=== PATIENT | male | born 1950 | race Caucasian/White ===

== ENCOUNTER → 2017-10-06 09:07 | Outpatient (CLI) | payer MEDICARE, OTHER, SELFPAY ==
[2017-10-06 09:10] VITALS: BP 118/74; PULSE 76; RESP 18; TEMP 36.9; O2SAT 98; BMI 24.3
[2017-10-06] MEDS: Immune Globulin 20 gm Premixed Solution IV (09:31)
[2017-10-06 10:04] VITALS: BP 124/60; PULSE 77; RESP 18; TEMP 36.7; O2SAT 98
[2017-10-06 10:30] VITALS: BP 129/68; PULSE 78; RESP 16; TEMP 37.2; O2SAT 100
[2017-10-06 11:05] VITALS: BP 134/71; PULSE 76; RESP 18; O2SAT 99
== END ==
PROVIDERS: Family Provider Family Medicine; PCP Family Medicine; Visit Provider Family Medicine
DX: D83.9 Common variable immunodeficiency, unspecified (principal)
CPT/HCPCS: 96365; 96366; A4216; J1568

== ENCOUNTER → 2017-11-03 09:10 | Outpatient (CLI) | payer MEDICARE, OTHER, SELFPAY ==
[2017-10-06 09:10] VITALS: BMI 24.3
[2017-10-06 10:30] VITALS: BP 129/68
[2017-11-03 09:14] VITALS: BP 132/64; PULSE 77; RESP 18; TEMP 36.3; O2SAT 100; BMI 25.0
[2017-11-03] MEDS: Immune Globulin 20 gm Premixed Solution IV (09:29)
[2017-11-03 10:02] VITALS: BP 120/63; PULSE 72; RESP 18; TEMP 36.3; O2SAT 98
[2017-11-03 10:32] VITALS: BP 131/76; PULSE 90; RESP 18; TEMP 36.7; O2SAT 97
== END ==
PROVIDERS: Family Provider Family Medicine; PCP Family Medicine; Visit Provider Family Medicine
DX: D83.9 Common variable immunodeficiency, unspecified (principal)
CPT/HCPCS: 96365; 96366; A4216; J1568

== ENCOUNTER → 2017-12-01 09:09 | Outpatient (CLI) | payer MEDICARE, OTHER, SELFPAY ==
[2017-12-01 09:19] VITALS: BP 126/59; PULSE 74; RESP 16; TEMP 36.6; O2SAT 99; BMI 24.3
[2017-12-01] MEDS: Immune Globulin 20 gm Premixed Solution IV (09:38)
[2017-12-01 10:09] VITALS: BP 115/62; PULSE 73; RESP 18; TEMP 36.8; O2SAT 97
[2017-12-01 10:42] VITALS: BP 125/58; PULSE 67; RESP 16; TEMP 36.9; O2SAT 99
== END ==
PROVIDERS: Family Provider Family Medicine; PCP Family Medicine; Visit Provider Family Medicine
DX: D83.9 Common variable immunodeficiency, unspecified (principal)
CPT/HCPCS: 96365; 96366; A4216; J1568

== ENCOUNTER → 2017-12-29 09:08 | Outpatient (CLI) | payer MEDICARE, OTHER, SELFPAY ==
[2017-12-29 09:22] VITALS: BP 118/69; PULSE 71; RESP 18; TEMP 36.9; O2SAT 99; BMI 24.3
[2017-12-29] MEDS: Immune Globulin 20 gm Premixed Solution IV (09:25)
[2017-12-29 09:57] VITALS: BP 102/56; PULSE 70; RESP 16; O2SAT 98
[2017-12-29 10:29] VITALS: BP 110/63; PULSE 68; RESP 16; TEMP 36.6; O2SAT 98
== END ==
PROVIDERS: Family Provider Family Medicine; PCP Family Medicine; Visit Provider Family Medicine
DX: D83.9 Common variable immunodeficiency, unspecified (principal)
CPT/HCPCS: 96365; 96366; A4216; J1568

== ENCOUNTER → 2018-01-26 09:18 | Outpatient (CLI) | payer MEDICARE, OTHER, SELFPAY ==
[2018-01-26] MEDS: Immune Globulin 20 gm Premixed Solution IV (09:47)
[2018-01-26 09:50] VITALS: BP 116/47; PULSE 78; RESP 16; TEMP 36.9; O2SAT 97; BMI 24.3
[2018-01-26 10:20] VITALS: BP 125/62; PULSE 72; RESP 18; TEMP 36.8; O2SAT 98
[2018-01-26 10:50] VITALS: BP 123/66; PULSE 65; RESP 16; TEMP 36.5; O2SAT 98
== END ==
PROVIDERS: Family Provider Family Medicine; PCP Family Medicine; Visit Provider Family Medicine
DX: D83.9 Common variable immunodeficiency, unspecified (principal)
CPT/HCPCS: 96365; 96366; J1568

== ENCOUNTER → 2018-02-23 09:06 | Outpatient (CLI) | payer MEDICARE, OTHER, SELFPAY ==
[2018-02-23 09:15] VITALS: BP 118/55; PULSE 77; RESP 16; TEMP 36.6; O2SAT 99
[2018-02-23 09:16] VITALS: BMI 23.5
[2018-02-23] MEDS: Immune Globulin 20 gm Premixed Solution IV (09:23)
[2018-02-23 10:01] VITALS: BP 117/59; PULSE 71; RESP 16
[2018-02-23 10:34] VITALS: BP 120/58; PULSE 70; RESP 18; TEMP 36.4; O2SAT 98
[2018-02-23 11:02] VITALS: BP 131/57; PULSE 71; RESP 16; TEMP 36.6; O2SAT 100
== END ==
PROVIDERS: Family Provider Family Medicine; PCP Family Medicine; Visit Provider Family Medicine
DX: D83.9 Common variable immunodeficiency, unspecified (principal)
CPT/HCPCS: 96365; 96366; A4216; J1568

== ENCOUNTER → 2018-03-23 09:06 | Outpatient (CLI) | payer MEDICARE, OTHER, SELFPAY ==
[2018-03-23 09:43] VITALS: BP 119/63; PULSE 78; RESP 16; TEMP 36.6; O2SAT 98; BMI 23.5
[2018-03-23] MEDS: Immune Globulin 20 gm Premixed Solution IV (09:58)
[2018-03-23 10:37] VITALS: BP 121/72; PULSE 71; RESP 16; TEMP 36.6; O2SAT 99
[2018-03-23 11:08] VITALS: BP 116/61; PULSE 67; RESP 16; TEMP 36.6; O2SAT 99
[2018-03-23 11:35] VITALS: BP 125/67; PULSE 70; RESP 16; TEMP 36.6; O2SAT 98
== END ==
PROVIDERS: Family Provider Family Medicine; PCP Family Medicine; Visit Provider Family Medicine
DX: D83.9 Common variable immunodeficiency, unspecified (principal)
CPT/HCPCS: 96365; 96366; A4216; J1568

== ENCOUNTER → 2018-04-20 09:10 | Outpatient (CLI) | payer MEDICARE, OTHER, SELFPAY ==
[2018-04-20] MEDS: Immune Globulin 20 gm Premixed Solution IV (09:24)
[2018-04-20 09:25] VITALS: BP 114/63; PULSE 76; RESP 16; TEMP 36.7; O2SAT 100; BMI 24.3
[2018-04-20 09:55] VITALS: BP 113/54; PULSE 73; RESP 18; TEMP 36.6; O2SAT 97
[2018-04-20 10:28] VITALS: BP 115/61; PULSE 72; RESP 18; TEMP 36.8; O2SAT 99
== END ==
PROVIDERS: Family Provider Family Medicine; PCP Family Medicine; Visit Provider Family Medicine
DX: D83.9 Common variable immunodeficiency, unspecified (principal)
CPT/HCPCS: 96365; 96366; A4216; J1568

== ENCOUNTER → 2018-05-18 09:07 | Outpatient (CLI) | payer MEDICARE, OTHER, SELFPAY ==
[2018-05-18] MEDS: Immune Globulin 20 gm Premixed Solution IV (09:25)
[2018-05-18 09:28] VITALS: BP 104/76; PULSE 70; RESP 16; TEMP 36.7; O2SAT 100; BMI 24.3
[2018-05-18 09:52] LABS: Absolute Lymphocyte Count 1.15 X10^3/ul (0.83-4.51); Absolute Neutrophil Count 2.5 X10^3/uL (2.0-7.7); Hematocrit 43.1 % (40-54); Hemoglobin 14.6 g/dl (13.0-16.5); Lymphocyte # 1.15 X10^3/ul (4.0); Lymphocyte % 27.7 % (19-41); Mean Corp Hgb Conc 33.9 g/gl (32-36); Mean Corpuscular Volume 88.7 fL (80-94); Neutrophil # 2.49 X10^3/uL (2.7-7.7); Neutrophil % 60.1 % (47-70); Platelet Count 143 K/mm3 (150-450); RBC Distribution Width CV 13.1 % (11.6-14.6); RBC Distribution Width SD 42.7 fl (35.1-43.9); Red Blood Count 4.86 M/mm3 (4.6-6.2); White Blood Count 4.2 K/mm3 (4.4-11.0)
[2018-05-18 09:53] LABS: POSITIVE COUNT NO; POSITIVE DIFFERENTIAL NO; POSITIVE MORPHOLOGY NO
[2018-05-18 09:59] VITALS: BP 110/72; PULSE 64; RESP 16; TEMP 36.6
[2018-05-18 10:15] LABS: ALB/GLOB Ratio 1.2 RATIO (0.9-2.4); AST(SGOT) 18 U/L (15-37); Alanine Aminotransfer ALT/SGPT 30 U/L (16-61); Alkaline Phosphatase 61 U/L (45-117); Anion Gap 7 (5-15); BUN 15 mg/dL (7-18); Calcium,Total 9.1 mg/dL (8.5-10.1); Chloride 104 mmol/L (98-107); Creatinine, Serum 0.94 mg/dL (0.70-1.30); EST Glomerular Filtration Rate 86 mL/min (>60); Est Glom Filt Rate - Afr Amer 104 mL/min (>60); Estimated Creatinine Clearance 72.27 ml/min; Ferritin 172 ng/mL (26-388); Globulin 3.2 g/dL (2.2-4.2); Glucose 94 mg/dL (74-106); Potassium 4.2 mmol/L (3.5-5.1); Protein, Total 7.2 g/dL (6.4-8.2); Sodium Level 139 mmol/L (136-145); Thyroid Stim Hormone (TSH) 2.77 uIU/mL (0.358-3.74)
[2018-05-18 10:33] VITALS: BP 111/58; PULSE 71; RESP 15; O2SAT 99
[2018-05-18 11:08] VITALS: BP 115/59; PULSE 70; RESP 16
[2018-05-21 04:08] LABS: IgG, Quant 727 mg/dL (700-1600); Immunoglobulin G, Subclass 1 419 mg/dL (248-810); Immunoglobulin G, Subclass 2 199 mg/dL (130-555); Immunoglobulin G, Subclass 3 30 mg/dL (15-102)
[2018-05-21 11:06] LABS: Immunoglobulin G, Subclass 4 6 mg/dL (2-96)
== END ==
PROVIDERS: Family Provider Family Medicine; PCP Family Medicine; Visit Provider Family Medicine
DX: D83.9 Common variable immunodeficiency, unspecified (principal); E78.00 Pure hypercholesterolemia, unspecified
CPT/HCPCS: 96365; 96366; 80053; 82728; 82784; 82787; 84443; 85025; A4216; J1568

== ENCOUNTER → 2018-06-15 09:08 | Outpatient (CLI) | payer MEDICARE, OTHER, SELFPAY ==
[2018-06-15 09:19] VITALS: BP 134/75; PULSE 75; RESP 18; TEMP 36.4; O2SAT 100; BMI 23.5
[2018-06-15] MEDS: Immune Globulin 10 gm Premixed Solution IV ×2 (10:07→11:04)
[2018-06-15 10:40] VITALS: BP 122/59; PULSE 66; RESP 16; TEMP 36.9
[2018-06-15 11:18] VITALS: BP 112/51; PULSE 65; RESP 16; TEMP 36.8
[2018-06-15 11:43] VITALS: BP 121/59; PULSE 64; RESP 16; TEMP 36.5; O2SAT 98
== END ==
PROVIDERS: Family Provider Family Medicine; PCP Family Medicine; Visit Provider Family Medicine
DX: D83.9 Common variable immunodeficiency, unspecified (principal)
CPT/HCPCS: 96365; 96366; J7050; A4216; J1568

== ENCOUNTER → 2018-07-13 09:10 | Outpatient (CLI) | payer MEDICARE, OTHER, SELFPAY ==
[2018-07-13 09:21] VITALS: BP 121/64; PULSE 63; RESP 16; TEMP 36.7; O2SAT 98; BMI 23.5
[2018-07-13] MEDS: Immune Globulin 20 gm Premixed Solution IV (09:42)
[2018-07-13 10:23] VITALS: BP 113/58; PULSE 73
[2018-07-13 10:54] VITALS: BP 116/61; PULSE 75
[2018-07-13 11:16] VITALS: BP 118/64; PULSE 64; RESP 18; TEMP 36.6; O2SAT 99
== END ==
PROVIDERS: Family Provider Family Medicine; PCP Family Medicine; Referring Provider Family Medicine; Visit Provider Family Medicine
DX: D83.9 Common variable immunodeficiency, unspecified (principal)
CPT/HCPCS: 96365; 96366; A4216; J1568

== ENCOUNTER → 2018-08-10 09:06 | Outpatient (CLI) | payer MEDICARE, OTHER, SELFPAY ==
[2018-08-10 09:31] VITALS: BP 132/62; PULSE 73; RESP 16; TEMP 36.6; O2SAT 100; BMI 23.5
[2018-08-10 09:36] LABS: Absolute Lymphocyte Count 1.09 X10^3/ul (0.83-4.51); Absolute Neutrophil Count 3.8 X10^3/uL (2.0-7.7); Hematocrit 42.4 % (40-54); Hemoglobin 14.2 g/dl (13.0-16.5); Lymphocyte # 1.09 X10^3/ul (4.0); Lymphocyte % 20.1 % (19-41); Mean Corp Hgb Conc 33.5 g/gl (32-36); Mean Corpuscular Volume 89.6 fL (80-94); Mean Platelet Vol. 10.7 fl (6.2-12.0); Monocyte# 0.54 X10^3/uL; Neutrophil # 3.78 X10^3/uL (2.7-7.7); Neutrophil % 69.7 % (47-70); POSITIVE COUNT NO; POSITIVE DIFFERENTIAL NO; POSITIVE MORPHOLOGY NO; Platelet Count 127 K/mm3 (150-450); RBC Distribution Width CV 13.1 % (11.6-14.6); RBC Distribution Width SD 42.8 fl (35.1-43.9); Red Blood Count 4.73 M/mm3 (4.6-6.2); White Blood Count 5.4 K/mm3 (4.4-11.0)
[2018-08-10] MEDS: Immune Globulin 20 gm Premixed Solution IV (09:36)
[2018-08-10 10:12] VITALS: BP 108/56; PULSE 72; RESP 16; TEMP 36.7
[2018-08-10 10:23] LABS: ALB/GLOB Ratio 1.4 RATIO (0.9-2.4); AST(SGOT) 27 U/L (15-37); Alanine Aminotransfer ALT/SGPT 34 U/L (16-61); Albumin, Serum 4.2 g/dL (3.2-5.0); Alkaline Phosphatase 69 U/L (45-117); Anion Gap 7 (5-15); BUN 21 mg/dL (7-18); BUN/Creat Ratio 25.3 RATIO (10-20); Calcium,Total 8.7 mg/dL (8.5-10.1); Chloride 105 mmol/L (98-107); Cholesterol 147 mg/dL (200); Creatinine, Serum 0.83 mg/dL (0.70-1.30); EST Glomerular Filtration Rate 98 mL/min (>60); Est Glom Filt Rate - Afr Amer 119 mL/min (>60); Estimated Creatinine Clearance 81.85 ml/min; Globulin 2.9 g/dL (2.2-4.2); Glucose 86 mg/dL (74-106); High Density Lipoprotein 28 mg/dL; PSA,Total - Annual Screen 4.11 ng/mL (0.00-4.00); Potassium 4.3 mmol/L (3.5-5.1); Protein, Total 7.1 g/dL (6.4-8.2); Sodium Level 139 mmol/L (136-145); Triglycerides 112 mg/dL; Very Low Density Lipoprotein 22 mg/dL (5-40)
[2018-08-10 10:40] VITALS: BP 103/51; PULSE 69; RESP 16; TEMP 36.8
[2018-08-14 03:04] LABS: Immunoglobulin G 676 mg/dL (700-1600)
[2018-08-14 08:56] LABS: Immunoglobulin A < 5 mg/dL (61-437); Immunoglobulin E < 2 IU/mL (0-100); Immunoglobulin M 6 mg/dL (20-172)
== END ==
PROVIDERS: Family Provider Family Medicine; PCP Family Medicine; Referring Provider Family Medicine; Visit Provider Family Medicine
DX: D83.9 Common variable immunodeficiency, unspecified (principal); R06.09 Other forms of dyspnea; E78.00 Pure hypercholesterolemia, unspecified; R97.20 Elevated prostate specific antigen [PSA]; Z12.5 Encounter for screening for malignant neoplasm of prostate
CPT/HCPCS: 96365; 96366; 80053; 80061; 82784; 82785; 84153; 85025; A4216; G0103; J1568

== ENCOUNTER → 2018-09-07 09:13 | Outpatient (CLI) | payer MEDICARE, OTHER, SELFPAY ==
[2018-08-10 09:31] VITALS: BMI 23.5
[2018-09-07] MEDS: Immune Globulin 20 gm Premixed Solution IV (09:32)
== END ==
PROVIDERS: Family Provider Family Medicine; PCP Family Medicine; Referring Provider Family Medicine; Visit Provider Family Medicine
DX: D83.9 Common variable immunodeficiency, unspecified (principal)
CPT/HCPCS: 96365; 96366; A4216; J1568

== ENCOUNTER → 2018-10-05 09:09 | Outpatient (CLI) | payer MEDICARE, OTHER, SELFPAY ==
[2018-08-10 09:31] VITALS: BMI 23.5
[2018-10-05 09:15] VITALS: BP 127/71; PULSE 69; RESP 16; TEMP 36.4; O2SAT 98; BMI 23.5
[2018-10-05] MEDS: Immune Globulin 20 gm Premixed Solution IV (09:30)
== END ==
PROVIDERS: Family Provider Family Medicine; PCP Family Medicine; Referring Provider Family Medicine; Visit Provider Family Medicine
DX: D83.9 Common variable immunodeficiency, unspecified (principal)
CPT/HCPCS: 96365; 96366; A4216; J1568

== ENCOUNTER → 2018-11-02 09:10 | Outpatient (CLI) | payer MEDICARE, OTHER, SELFPAY ==
[2018-10-05 09:15] VITALS: BMI 23.5
[2018-11-02 09:30] VITALS: BP 156/74; PULSE 80; RESP 16; TEMP 36.5; O2SAT 99; BMI 24.3
[2018-11-02] MEDS: Immune Globulin 20 gm Premixed Solution IV (09:43)
[2018-11-02 10:13] VITALS: BP 156/74; PULSE 80; RESP 16; TEMP 36.5; O2SAT 99
[2018-11-02 10:46] VITALS: BP 114/57; PULSE 74; RESP 16; TEMP 36.6
== END ==
PROVIDERS: Family Provider Family Medicine; PCP Family Medicine; Referring Provider Family Medicine; Visit Provider Family Medicine
DX: D83.9 Common variable immunodeficiency, unspecified (principal)
CPT/HCPCS: 96365; 96366; A4216; J1568

== ENCOUNTER → 2018-11-30 11:00 | Outpatient (CLI) | payer MEDICARE, OTHER, SELFPAY ==
[2018-11-02 09:30] VITALS: BMI 24.3
[2018-11-30 11:11] VITALS: BP 116/61; PULSE 85; RESP 16; TEMP 36.7; O2SAT 98; BMI 23.5
[2018-11-30] MEDS: Immune Globulin 10 gm Premixed Solution IV ×2 (11:25→12:41)
== END ==
PROVIDERS: Family Provider Family Medicine; PCP Family Medicine; Referring Provider Family Medicine; Visit Provider Family Medicine
DX: D83.9 Common variable immunodeficiency, unspecified (principal)
CPT/HCPCS: 96365; 96366; J7050; A4216; J1568

== ENCOUNTER → 2018-12-28 | Outpatient (CLI) | payer MEDICARE, OTHER, SELFPAY ==
[2018-11-30 11:11] VITALS: BMI 23.5
[2018-12-28 11:06] VITALS: BP 134/65; PULSE 83; RESP 18; TEMP 36.8; O2SAT 100; BMI 24.3
[2018-12-28] MEDS: Immune Globulin 10 gm Premixed Solution IV ×2 (11:17→12:21)
== END | disposition home or self-care (01) ==
LOC: MEDOUTP 11:02
PROVIDERS: Family Provider Family Medicine; PCP Family Medicine; Referring Provider Family Medicine; Visit Provider Family Medicine
DX: D83.9 Common variable immunodeficiency, unspecified (principal)
CPT/HCPCS: 96365; 96366; A4216; J1568

== ENCOUNTER → 2019-01-23 | Outpatient (CLI) | payer MEDICARE, OTHER, SELFPAY ==
[2018-12-28 11:06] VITALS: BMI 24.3
--- NOTE | 2019-01-23 08:23 | CT_ITS ---
STUDY: CT CHEST WITHOUT CONTRAST REASON FOR EXAM: Male, 68 years old. Short of breath RADIATION DOSAGE (If Supplied By Facility): CTDIvol = ( 9.24 ) mGy, DLP = ( 355.59 ) mGycm TECHNIQUE: Transaxial imaging was performed without the administration of intravenous contrast material. Individualized dose optimization techniques were used for this CT. COMPARISON: None. FINDINGS: There is ill-defined 1 cm x 6.1 cm x 2.3 cm density in the right upper lobe extending to the apex there is mild respiratory motion on the exam. There are scattered linear areas of scarring lower lobes and left upper lobe. There is no demonstrated pleural abnormality. Normal heart and pericardium. There is calcific coronary atherosclerosis. There are less than 1 cm nonenlarged mediastinal lymph nodes. Normal hilar regions. Normal unenhanced pulmonary arteries. Normal aorta arch and descending thoracic aorta. There is mild thoracic kyphosis and multilevel osteophytes. There is hyperdensity within the stomach likely pill. There is no demonstrated abnormality of the visualized upper abdomen. CT/Chest without Contrast IMPRESSION: 1 x 6.1 x 2.3 cm irregular right upper lobe scarring versus lung malignancy. PET/CT follow-up and biopsy recommended. Sequela of prior TB also cannot be excluded. Nonenlarged mediastinal lymph nodes Calcific coronary atherosclerosis Electronically Signed: Chas Hdz, at 17:00 EDT Tel , Service support ,
--- NOTE | 2019-01-23 09:27 | ART_ITS ---
Reason For Study: Bilateral leg weakness Procedure A bilateral lower extremity continuous wave Doppler with analog waveform analysis,segmental pressures,and ankle brachial indexes with exercise. Left Segmental Pressures Left brachial= 131mmHg. Left posterior tibial artery = 157mmHg. Left dorsalis pedis artery = 161mmHg. The left dorsalis pedis waveforms are triphasic. The left posterior tibial artery waveforms are triphasic. Right Segmental Pressures Right brachial= 135mmHg. Right posterior tibial artery = 158mmHg. Right dorsalis pedis artery = 161mmHg. The right dorsalis pedis waveforms are triphasic. The right posterior tibial artery waveforms are triphasic. Indices The right ankle brachial index by the dorsalis pedis is 1.19. The right ankle brachial index by the posterior tibial artery is 1.17. The right post exercise ankle brachial index is 1.27. The left ankle brachial index by the dorsalis pedis is 1.19. The left ankle brachial index by the posterior tibial artery is 1.16. The left post exercise ankle brachial index is 1.25. Interpretation Summary Triphasic Doppler waveforms are noted at ankle level bilaterally. Pulse-volume recording waveform amplitudes appear satisfactory at all levels bilaterally, including low-thigh, calf, ankle, and digital levels. Resting ankle-brachial indices appear normal bilaterally. Following a regimen of exercise, ankle pressures augment bilaterally, which is a normal physiological response. There is no evidence of significant arterial occlusive disease in the lower extremities bilaterally. Ordering Physician: Mahesh Avendano Referring Physician: Mahesh Avendano Performed By: Jessie Vicente RVT
--- NOTE | 2019-01-23 10:15 | CPS ---
Patient maintained a great pace for the first 4 minutes, walking 1000 ft in the first 4 minutes. Patient then stated that his shortness of breath was making him want to slow down his pace and he rated it as somewhat severe. Patient finished the test without any breaks at a slightly slower pace.
[2019-01-23 10:21] VITALS: PULSE 102; PULSE 108; PULSE 115; PULSE 117; PULSE 119; PULSE 83; PULSE 84; O2SAT 100; O2SAT 98; O2SAT 99
--- NOTE | 2019-01-23 13:42 | PCM.PSN.6M ---
PSN 6 Minute Walk Test - 6 Minute Walk Test 6 Minute Walk Test: 6 Minute Walk Test PSN:6-Minute Walk Test Start: 01/23/19 10:11 Freq: Status: Active Protocol: [id number].6MINW Document 01/23/19 10:21 MARY JO (Rec: 01/23/19 10:25 MARY JO [id number]) 6 Minute Walk Test Date Performed 01/23/19 Time Performed 09:15 Height 5 ft 7 in Weight: 152 lb Weight in Pounds 152.[address]: Mahesh Avendano Assistive device used: None Pre-test Oxygen Delivery Method Room Air Pulse Ox (%) 98 Pulse Rate (60-100 beats/min) 83 Dyspnea Prakash Scale (0-10) 0 Exertion Prakash Scale (6-20) 6 1st minute Oxygen Delivery Method Room Air Pulse Ox (%) 99 Pulse Rate (60-100 beats/min) 108 H 2nd minute Oxygen Delivery Method Room Air Pulse Ox (%) 98 Pulse Rate (60-100 beats/min) 117 H 3rd minute Oxygen Delivery Method Room Air Pulse Ox (%) 100 Pulse Rate (60-100 beats/min) 119 H 4th minute Oxygen Delivery Method Room Air Pulse Ox (%) 99 Pulse Rate (60-100 beats/min) 115 H Dyspnea Prakash Scale (0-10) 4 5th minute Oxygen Delivery Method Room Air Pulse Ox (%) 99 Pulse Rate (60-100 beats/min) 102 H 6th minute Oxygen Delivery Method Room Air Pulse Ox (%) 99 Pulse Rate (60-100 beats/min) 102 H Dyspnea Prakash Scale (0-10) 3 Exertion Prakash Scale (6-20) 11 Post-test Oxygen Delivery Method Room Air Pulse Ox (%) 98 Pulse Rate (60-100 beats/min) 84 Full Laps Walked 24 Partial Lap, Number of Tiles Walked 0 Total Distance Walked (ft) 1416 - Interpretation Interpretation: The patient ambulated 1416 feet over the course of 6 minutes beginning on room air without assistive devices or breaks. Pretesting oxygen saturation was noted to be 98% on room air. With ambulation, the todd oxygen saturation was 98%. There was no significant exertional oxygen desaturation. - Recommendations Recommendations: There is no indication for the use of supplemental oxygen at this time.
== END | disposition home or self-care (01) ==
LOC: CT 08:19
PROVIDERS: Family Provider Family Medicine; PCP Family Medicine; Referring Provider Family Medicine; Visit Provider Family Medicine
DX: I73.9 Peripheral vascular disease, unspecified (principal); R06.09 Other forms of dyspnea
CPT/HCPCS: 71250; 93924; 94618

== ENCOUNTER → 2019-01-25 | Outpatient (CLI) | payer MEDICARE, OTHER, SELFPAY ==
[2018-12-28 11:06] VITALS: BMI 24.3
[2019-01-25 11:38] VITALS: BP 123/66; PULSE 72; RESP 16; TEMP 36.7; O2SAT 97; BMI 23.8
[2019-01-25] MEDS: Immune Globulin 20 gm Premixed Solution IV (12:12)
[2019-01-25 12:22] LABS: Absolute Lymphocyte Count 1.07 X10^3/ul (0.83-4.51); Absolute Neutrophil Count 3.2 X10^3/uL (2.0-7.7); Hematocrit 40.1 % (40-54); Lymphocyte # 1.07 X10^3/ul (4.0); Lymphocyte % 22.2 % (19-41); Mean Corp Hgb Conc 34.9 g/gl (32-36); Mean Corpuscular Hgb 31.3 pg (27.0-32.0); Mean Corpuscular Volume 89.5 fL (80-94); Mean Platelet Vol. 10.6 fl (6.2-12.0); Monocyte# 0.55 X10^3/uL; Monocyte% 11.4 % (0-10); Neutrophil # 3.19 X10^3/uL (2.7-7.7); Neutrophil % 66.4 % (47-70); POSITIVE COUNT NO; POSITIVE DIFFERENTIAL NO; POSITIVE MORPHOLOGY NO; Platelet Count 141 K/mm3 (150-450); RBC Distribution Width CV 12.6 % (11.6-14.6); RBC Distribution Width SD 41.1 fl (35.1-43.9); Red Blood Count 4.48 M/mm3 (4.6-6.2); White Blood Count 4.8 K/mm3 (4.4-11.0)
[2019-01-25 13:02] LABS: CRP < 2.90 mg/L (0.0-3.0); LDH 173 U/L (87-241)
[2019-01-25 13:03] LABS: Erythrocyte Sedimentation Rate 2 mm/hr (0-20)
[2019-01-30 06:06] LABS: QNTFERON TB Mitogen Value > 10.00 IU/mL (.); QNTFERON TB Nil Value 0.01 IU/mL (.); QNTFERON TB1+ Ag Value 0.02 IU/mL (.); QNTFERON TB2+ Ag Value 0.01 IU/mL (.)
[2019-01-30 15:49] LABS: QNTIFERON TB Positive Criteria Negative (Negative)
== END | disposition home or self-care (01) ==
LOC: MEDOUTP 11:27
PROVIDERS: Family Provider Family Medicine; PCP Family Medicine; Referring Provider Family Medicine; Visit Provider Family Medicine
DX: D83.9 Common variable immunodeficiency, unspecified (principal); R91.8 Other nonspecific abnormal finding of lung field
CPT/HCPCS: 96365; 96366; 83615; 85025; 85652; 86140; 86480; A4216; J1568

== ENCOUNTER → 2019-02-22 11:06 | Outpatient (CLI) | payer MEDICARE, OTHER, SELFPAY ==
[2019-01-25 11:38] VITALS: BMI 23.8
[2019-01-30 10:56] VITALS: BMI 24.3
[2019-02-22 11:23] VITALS: BP 107/65; PULSE 79; RESP 16; TEMP 36.6; O2SAT 99; BMI 24.3
[2019-02-22] MEDS: Immune Globulin 20 gm Premixed Solution IV (11:42)
== END ==
PROVIDERS: Family Provider Family Medicine; PCP Family Medicine; Referring Provider Family Medicine; Visit Provider Family Medicine
DX: D83.9 Common variable immunodeficiency, unspecified (principal)
CPT/HCPCS: 96365; 96366; A4216; J1568

== ENCOUNTER → 2019-03-05 | Outpatient (CLI) | payer MEDICARE, OTHER, SELFPAY ==
[2019-01-30 10:56] VITALS: BMI 24.3
[2019-02-22 11:23] VITALS: BMI 24.3
--- NOTE | 2019-03-06 12:42 | PFT ---
INTRODUCTION: The patient is a 68-year-old male that presents for pulmonary function studies secondary to a diagnosis of dyspnea on exertion. Respiratory therapy reports good patient effort. Bronchodilators were used during testing. INTERPRETATION: Forced expiration spirometry demonstrates no evidence of a large airways obstructive ventilatory defect. There was no significant response to aerosolized bronchodilators, based upon strict ATS criteria. Spirograms are of good quality and plateau normally. Body plethysmography was performed and reveals lung volumes to be within normal limits. Diffusing capacity by single breath CO is also within normal limits. IMPRESSION: Normal spirometry, lung volumes and diffusing capacity.
== END | disposition home or self-care (01) ==
LOC: PSN 07:23
PROVIDERS: Family Provider Family Medicine; PCP Family Medicine; Referring Provider Internal Medicine Critical Care Medicine; Visit Provider Internal Medicine Critical Care Medicine
DX: R06.09 Other forms of dyspnea (principal)
CPT/HCPCS: 94060; 94726; 94729

== ENCOUNTER → 2019-03-06 | Outpatient (CLI) | payer MEDICARE, OTHER, SELFPAY ==
[2019-03-06 08:41] VITALS: BMI 24.3
[2019-03-06 11:24] LABS: Absolute Lymphocyte Count 1.17 X10^3/ul (0.83-4.51); Absolute Neutrophil Count 2.9 X10^3/uL (2.0-7.7); Hematocrit 38.3 % (40-54); Hemoglobin 13.2 g/dl (13.0-16.5); Lymphocyte # 1.17 X10^3/ul (4.0); Lymphocyte % 26.5 % (19-41); Mean Corp Hgb Conc 34.5 g/gl (32-36); Mean Corpuscular Hgb 30.3 pg (27.0-32.0); Mean Platelet Vol. 10.6 fl (6.2-12.0); Monocyte# 0.36 X10^3/uL; Monocyte% 8.1 % (0-10); Neutrophil # 2.88 X10^3/uL (2.7-7.7); Neutrophil % 65.2 % (47-70); Platelet Count 143 K/mm3 (150-450); RBC Distribution Width CV 12.5 % (11.6-14.6); RBC Distribution Width SD 40.4 fl (35.1-43.9); Red Blood Count 4.35 M/mm3 (4.6-6.2); White Blood Count 4.4 K/mm3 (4.4-11.0)
[2019-03-06 11:32] LABS: POSITIVE COUNT NO; POSITIVE DIFFERENTIAL NO; POSITIVE MORPHOLOGY NO
[2019-03-06 11:46] LABS: Anion Gap 4 (5-15); BUN 14 mg/dL (7-18); BUN/Creat Ratio 17.1 RATIO (10-20); Chloride 105 mmol/L (98-107); Creatinine, Serum 0.82 mg/dL (0.70-1.30); EST Glomerular Filtration Rate 100 mL/min (>60); Est Glom Filt Rate - Afr Amer 121 mL/min (>60); Glucose 110 mg/dL (74-106); Potassium 4.4 mmol/L (3.5-5.1); Sodium Level 136 mmol/L (136-145)
== END | disposition home or self-care (01) ==
PROVIDERS: Family Provider Family Medicine; PCP Family Medicine; Referring Provider Internal Medicine Cardiovascular Disease; Visit Provider Internal Medicine Cardiovascular Disease
DX: R07.9 Chest pain, unspecified (principal)
CPT/HCPCS: 36415; 80048; 85025

== ENCOUNTER 2019-03-11 08:53 | Day surgery (SDC) | payer MEDICARE, OTHER, SELFPAY ==
[2019-03-06 08:41] VITALS: BMI 24.3
[2019-03-08 08:59] VITALS: BMI 24.3
[2019-03-11] VITALS (26 sets, daily range): BP systolic 107–160; BP diastolic 61–95; PULSE 41–83; RESP 10–24; TEMP 36.7–37.7; O2SAT 96–100; BMI 24.5; BMI 24.3
--- NOTE | 2019-03-11 12:54 | CL.D_ITS ---
Patient Name: FRANCISCO CONNOR Study Date: 03/11/2019 Performing: Demian Ramsay MD Ht: 66.92 inches 170 cm : 1950 Wt: 154.32 lbs 70 kg Age: 68 Gender: male BSA: 1.81 PROCEDURE(S) PERFORMED [id number]/LV CLINICAL PROFILE AND INDICATIONS Indications: Worsening Angina Heart Failure: None Stress/Imaging Stress/Image Study Performed: No CAD Presentations: Unstable angina. CONCLUSIONS Severe choctaw vessel disease involving the proximal to mid right coronary artery of approximately 80% in the distal right coronary artery of 90%. There is also a moderately severe left anterior descend ing artery lesion noted of approximately 70 to 75%. RECOMMENDATIONS Referred for immediate PCI DESCRIPTION OF PROCEDURE The patient arrived to the procedure lab. The risks and benefits of the procedure as well as a full d escription of our services here and current unavailability of surgical backup were fully explained to the patient and/or their significant other prior to the catheterization. The Timeout was completed, verifying the correct patient and procedure. The patient's procedural site was prepped and draped in the usual fashion. Local anesthetic was given subcutaneously to right radial region with Lidocaine 2% . Local anesthetic was given subcutaneously to right groin region with Lidocaine 2%. Using a modified Seldinger technique, arterial access was obtained via the right radial artery, a 6Fr sheath was inse rted., arterial access was obtained via the right femoral artery, a 5Fr sheath was inserted. Left Co ronary Artery selective angiography was performed in multiple views using a 5 Fr. JL4 catheter. Right Coronary Artery selective angiography was then performed in multiple views using a 5 Fr. 3DRC (Hari) catheter. Left Ventriculography was performed in BEAULIEU projection using a 5 Fr. Pigtail catheter. LV to AO pullback pressures were then recorded. CORONARY ANGIOGRAPHY DOMINANCE: Right Dominant LEFT HEART ASSESSMENT Left Ventricular Ejection Fraction: by LV Gram 65 % Normal LV wall motion LEFT MAIN: Mild calcification, Non-obstructive LEFT ANTERIOR DESCENDING ARTERY: PROX LAD: Mild luminal irregularities less than 30% MID LAD: 75 % Stenosis CIRCUMFLEX ARTERY: Mild luminal irregularities less than 30% RIGHT CORONARY ARTERY: PROX RCA: Mild luminal irregularities MID RCA: 80 eccentric % Stenosis DISTAL RCA: 95 % Stenosis COMPLICATIONS PROCEDURE MEDICATIONS Versed 1 mg IV Fentanyl 50 mcg IV Versed 1 mg IV Fentanyl 25 mcg IV Oxygen: 2 L/min via nasal cannula Heparin diluted in 23cc Heparinized saline. Patient given 1/2 solution 03/11/2019 12:02:25 Heparin diluted in 23cc Heparinized saline. Patient given 1/2 solution 03/11/2019 12:02:25 Heparin diluted in 23cc Heparinized saline. Patient given 1/2 solution 03/11/2019 12:07:59 Heparin 5000 unit(s) IV 03/11/2019 12:40:04 Nitro 200 mcg IC 03/11/2019 12:46:48 Verapamil 2.5mg, Ntg 100mcgs, 2000 units of Heparin diluted in 23cc Heparinized saline. Patient give n 1/2 solution 03/11/2019 12:02:25 Verapamil 2.5mg, Ntg 100mcgs, 2000 units of Heparin diluted in 23cc Heparinized saline. Patient give n 1/2 solution 03/11/2019 12:02:25 Verapamil 2.5mg, Ntg 100mcgs, 2000 units of Heparin diluted in 23cc Heparinized saline. Patient give n 1/2 solution 03/11/2019 12:07:59 IV Bolus: .9 NaCl ml total 03/11/2019 12:24:12 SUMMARY OF HEMODYNAMIC DATA Time AIR REST ECG 09:14:41 ECG 09:19:06 AO 109/63 (83) SA 12:05:21 AO 95/55 (73) 12:20:46 LV 103/6, 15 12:29:56 LV 101/5, 15 12:30:02 LV 116/0, 20 12:31:32 LVp 116/-3, 20 12:31:37 AOp 110/55 (80) 12:31:42 Signed By Demian Ramsay MD On 03/11/2019 12:54:15 PM Signed By Demian Ramsay MD On 03/11/2019 12:53:46 PM Demian Ramsay MD
--- NOTE | 2019-03-11 13:30 | EKG12_ITS ---
Test Reason : AM Blood Pressure : / mmHG Vent. Rate : 075 BPM Atrial Rate : 075 BPM P-R Int : 140 ms QRS Dur : 092 ms QT Int : 376 ms P-R-T Axes : 080 073 070 degrees QTc Int : 419 ms Normal sinus rhythm Normal ECG When compared with ECG of 23-JUL-1999 09:41, No significant change was found Confirmed by JOB JUAREZ ([id number]), image editor CYNTHIA NEWBY ([id number]) on 03/14/2019 1:53:37 PM Referred By: Demian Ramsay Confirmed By:JOB JUAREZ
--- NOTE | 2019-03-11 14:00 | CRPHASE1 ---
Patient Communication PHII Cardiac Rehab Discussed with Patient:: Yes Guide to Cardiac Rehab Given to Patient:: Yes Cardiac Rehab Facility Choice List Given to Patient:: Yes - chooses [facility] Choice Program [facility] CR PHII:: Communication Given to CR, Refer to [facility] Refer Phase II Cardiac Rehab:: Yes Sessions:: 36 sessions - 3 days/wk, 12 weeks Risk Factors/Lifestyle Smoking Status: Never smoker Hx Dyslipidemia: Yes Height: 1.7 m Weight:: 70.307 kg BMI: 24.3 Family History: Family History (Last Reviewed 03/06/19 @ 09:25 by Demian Ramsay MD) Mother Heart disease Father Parkinson disease Phase I Education Given On:: [place], Nutrition, Antiplatelet medication, CHF, Smoking cessation, Diabetes - Type I, Diabetes - Type II Issues Affecting Care:: None Knowledge of Condition:: Yes Hospital Course Cardiac Cath Date:: 03/11/19 Medical/Surgical History Dyslipidemia:: Yes Discharge/Home/Social Eval Discharge Disposition: Home Marital Status: Cardiac Rehabilitation Info Cardiac Rehabilitation Program Information: Cardiac Rehabilitation is important for patients like you who are recovering from a heart problem. Cardiac rehabilitation programs are recognized as integral to the continued care of the patient with coronary heart disease. The cardiac rehabilitation program is designed to optimize a patient's physical, psychological, and social functioning. Health multi care technician work in cardiac rehabilitation programs and assist you with getting the treatments you need to get stronger and healthier - like exercise, healthy eating habits, and medications. Cardiac rehabilitation has been show to help people with heart problems live longer and have better life enjoyment than people who do not go to cardiac rehabilitation. Please contact the Cardiac Rehabilitation Program at [facility] at in two weeks if you have not heard from them.
--- NOTE | 2019-03-11 14:03 | CRPH1.INSTRU ---
General Education CAD and cardiac anatomy and function:: Patient communicates acknowledgment Explanation of diagnoses and procedures:: Patient communicates acknowledgment Sign/Symptoms of CO:: Patient communicates acknowledgment Antiplatelet therapy: Patient communicates acknowledgment Proper use of NTG-SL: Not instructed Emergency procedures and activation of EMS: Patient communicates acknowledgment Compliance of all prescribed medications: Patient communicates acknowledgment Smoking Patient Nicotine/Smoking Risk Factors Are:: Never smoked Nicotine/Smoking Response Code:: Patient communicates acknowledgment Dyslipidemia Dyslipidemia Response Code:: Patient communicates acknowledgment Overweight/Obesity Patient Overweight/Obesity Risk Factors Are:: BMI Normal [18-25 & < 65 years old] Overweight/Obesity:: Patient communicates acknowledgment Hypertension Hypertension:: Patient communicates acknowledgment Heart Disease Heart Disease Response Code:: Patient communicates acknowledgment Diabetes Diabetes:: Patient communicates acknowledgment Metabolic Syndrome Metabolic Syndrome Response Code:: Patient communicates acknowledgment Sedentary Sedentary Response Code:: Patient communicates acknowledgment Stress Stress Response Code:: Patient communicates acknowledgment
[2019-03-11] MEDS: 0.9% Normal Saline 1,000 ML 100 ML IV (14:13)
[2019-03-11 14:25] LABS: ACT Activated Clotting Time 180 sec (74-137)
--- NOTE | 2019-03-11 14:30 | NURSING ---
Patient seen on camera attempting to get out of bed, with his at bedside. This RN and Layne Huddleston RN quickly went to patients room and instructed patient to lay back down in bed. Patient instructed that he can not get out of bed, he has a femoral sheath on and must stay flat on bedrest. Patient told this RN that he can not lay flat and pee, that's why he was attempting to get up. Patient given his urinal to try again, and again told patient that he can not get up, he is on strict bedrest. Right groin sheath assessed, no hematoma or bleeding noted. Right wrist TR band assessed, no hematoma with minimal old bleeding noted.
[2019-03-11 15:30] LABS: ACT Activated Clotting Time 153 sec (74-137)
--- NOTE | 2019-03-11 19:17 | NURSING ---
Pt states is bringing him dinner. arrived with [facility] for patient after being educated on diet modification.
[2019-03-11] MEDS: Pravastatin 40 MG Tablet PO (23:51)
[2019-03-11] MEDS: Folic Acid 1 MG Tablet 0.5 MG PO (23:52)
[2019-03-12] VITALS (16 sets, daily range): BP systolic 86–178; BP diastolic 63–98; PULSE 60–86; RESP 9–17; TEMP 37.1–37.6; O2SAT 97–100
--- NOTE | 2019-03-12 | NURSING ---
Pt assisted to stand after bedrest , assisted to commode to attempt voiding; unsuccessful. Pt bladder scanned for 750ml. Dr.Ofori eldridge, notified of pt condition and orders received. Pt educated regarding urinary cath insertion procedure. Pt janina cath fairly, needed distraction and still needed slight amt of manual manipulation to pass catheter through the prostate into the bladder. Pt stated immediate relief. 900ml of straw color urine emptied w/1 sm blood clot.
[2019-03-12 05:34] LABS: Hematocrit 38.8 % (40-54); Hemoglobin 13.5 g/dl (13.0-16.5); Mean Corp Hgb Conc 34.8 g/gl (32-36); Mean Corpuscular Hgb 30.9 pg (27.0-32.0); Mean Corpuscular Volume 88.8 fL (80-94); Mean Platelet Vol. 10.5 fl (6.2-12.0); Platelet Count 138 K/mm3 (150-450); RBC Distribution Width CV 12.6 % (11.6-14.6); RBC Distribution Width SD 40.2 fl (35.1-43.9); Red Blood Count 4.37 M/mm3 (4.6-6.2); White Blood Count 7.8 K/mm3 (4.4-11.0)
[2019-03-12] MEDS: 0.9% NaCl Peripheral Flush Adult/Peds IV (05:37)
[2019-03-12 05:53] LABS: Scan Indicated on CBC? Y/N NO
[2019-03-12 06:00] LABS: ALB/GLOB Ratio 1.2 RATIO (0.9-2.4); AST(SGOT) 26 U/L (15-37); Alanine Aminotransfer ALT/SGPT 34 U/L (16-61); Albumin, Serum 3.6 g/dL (3.2-5.0); Alkaline Phosphatase 61 U/L (45-117); Anion Gap 8 (5-15); BUN 17 mg/dL (7-18); BUN/Creat Ratio 17.8 RATIO (10-20); Calcium,Total 8.4 mg/dL (8.5-10.1); Chloride 105 mmol/L (98-107); Creatinine, Serum 0.96 mg/dL (0.70-1.30); EST Glomerular Filtration Rate 84 mL/min (>60); Est Glom Filt Rate - Afr Amer 101 mL/min (>60); Estimated Creatinine Clearance 70.77 ml/min; Globulin 2.9 g/dL (2.2-4.2); Glucose 116 mg/dL (74-106); Protein, Total 6.5 g/dL (6.4-8.2); Sodium Level 140 mmol/L (136-145)
--- NOTE | 2019-03-12 08:19 | PN.CARD_ITS ---
Subjectve: Patient seen and evaluated. Appears to be doing well from the cardiac standpoint. Had some problems with urination. Had a Kirkpatrick catheter put in. Objective: Vital Signs Temp Pulse Resp BP Pulse Ox 99.2 F H 75 16 120/67 99 03/12/19 04:00 03/12/19 07:00 03/12/19 07:00 03/12/19 07:00 03/12/19 07:00 Oxygen Delivery Method Room Air Weight: 153 lb 14.122 oz Body Mass Index (BMI) 24.5 Intake and Output for Last 24 Hours 03/10/19 03/11/19 03/12/19 23:59 23:59 23:59 Intake Total 1836 / 1836 750 / 750 Output Total 600 / 600 1800 / 1800 Balance 1236 / 1236 -1050 / -1050 General: Awake, Alert, Oriented x 3 HEENT: PERRL, EOMI, Sclera Non Icteric Neck: Supple, Good ROM, No Lymph Node Enlargement Lungs: Clear to auscultation Cardiovascular: Regular Rhythm, Normal S1, Normal S2, No Murmurs, No Rubs, No Gallops Vascular: No Carotid Bruits, Normal Femoral Pulses, Normal Radial Pulses, Normal Dorsalis Pedal Pulse, Normal Posterior Tibial Pulses Abdomen: Bowel Sounds Present, Soft, Non Tender, No HSM, No Organomegaly Extremities: No Cyanosis, No Clubbing, No edema Musculoskeletal: No Erythema Skin: No Rashes Lymphatic: No Lymph Node Enlargement Neurological: No Focal Motor or Sensory Deficit Psych/Mental Status: Appropriate 03/12/19 05:15: WBC 7.8, RBC 4.37 L, Hgb 13.5, Hct 38.8 L, MCV 88.8, MCH 30.9, MCHC 34.8, RDW 12.6, RDW Differential 40.2, Plt Count 138 L, MPV 10.5 03/12/19 05:15: Sodium 140, Potassium 4.0, Chloride 105, Carbon Dioxide 27.0, Anion Gap 8, BUN 17, Creatinine 0.96, Est GFR (MDRD) Af Amer 101, Est GFR (MDRD) Non-Af 84, BUN/Creatinine Ratio 17.8, Glucose 116 H, Calcium 8.4 L, Total Bilirubin 0.60 Rhythm: EKG: ECHO: Stress Test: Cardiac Cath: PCI: CT Surgery: Holter monitor: EPS: PPM: CXR: Chest CT Scan: Medical Necessity - Tobacco Use Smoking Status: Never smoker Assessment/Plan 1. Coronary artery disease-status post angioplasty and stenting of the mid and distal right coronary artery. * Patient underwent the above procedure yesterday without incident. Appears to be doing well. No issues from the cardiac standpoint. Hemoglobin is stable hematocrit is stable and creatinine is stable. No EKG changes noted. * Patient will be discharged today and brought back for interval stenting of the left anterior descending artery. * 2. Urinary retention * Will DC Kirkpatrick and walk patient and see whether he is able to void on his own. * * Thank you for allowing me to participate in the care of your patient. Please don't hesitate to call if any issues arise
--- NOTE | 2019-03-12 08:23 | DCINST_ITS ---
Discharge Diet: No Restrictions - You may continue your normal diet., Low fat/ Low Cholesterol Discharge Activity: Return to Normal Activity Lifting Restrictions: 10 pounds and also avoid any pushing or pulling for 3 days after your test. Additional Activity Instructions:: You must have someone drive you home. Do not drive until instructed by your doctor. You must have someone stay with you all night after your test. Rest in bed or on the couch until the next morning. Limit the number of times you go up and down stairs the day of your test. Apply pressure to the puncture site if you sneeze or cough. Call your doctor if your incision/area has: Increased Pain/ Swelling, Increased Redness, Foul Smelling Discharge, Swelling at the incision site Call your doctor if you observe: Fever of 101 or Higher Additional Dressing/Incision Instructions:: Keep the dressing (bandage) on until the next morning. You may then shower, but do not take a tub bath for 5 days after your test. It is normal to have some tenderness and discomfort at the puncture site. Sometimes bruising also occurs. However, if pain, numbness, or coldness occurs below the puncture site (in your leg, toes, arms or fingers) call your doctor at once. You may have a small, marble sized knot at the puncture site. This is normal. Do not rub it. It will go away in 4-6 weeks. Bleeding can occur from the area where the puncture was done. Blood may spurt or drip from the site. If blood spurts, apply pressure right away to stop bleeding and call 911. Although rare, bleeding into the tissue (hematoma) can also occur. If this happens, a large, firm area goose egg under the skin will appear. If any of these occur, lie down as flat as you can and have someone apply firm pressure to the cath site with a gauze pad or a clean washcloth for 10-15 minutes. Call 911 or go to the Emergency Department. Allergies/Adverse Reactions: Allergies No Known Allergies Allergy (Verified 01/30/19 10:58) Medications to take at Discharge Guar Gum [Fiber] 2 gm PO DAILY 06/10/13 Multivitamins,Therapeutic [Multivitamin] 1 tab PO DAILY 06/10/13 Folic Acid 1 tab PO BID 12/24/13 Pravastatin Sodium 40 mg PO DAILY 08/11/17 albuterol sulfate HFA 90 mcg/actuation aerosol inhaler 2 puff INHALATION Q4H PRN #1 device 01/30/19 aspirin 81 mg tablet,delayed release 81 mg PO DAILY 03/04/19 immune glob,gamma(IgG) 10 phgs-[id number]-IgA 0 to 50 mcg/mL IV solution 20 g .ROUTE .d5sergs ea 03/04/19 clopidogrel 75 mg tablet 75 mg PO DAILY #30 tab 03/06/19 metoprolol succinate ER 50 mg tablet,extended release 24 hr 50 mg PO DAILY #60 tab 03/06/19 Orders to be completed after discharge: Phase II, Outpatient Cardiac Rehab Location: None Selected Primary Care Physician: Mahesh Avendano MD [Primary Care Provider] - Test Results: Test results from this visit will be discussed in further detail at your follow- up appointment, if applicable. Please Follow Up With: eugenio orlando. will call with appt Proposed Discharge Date: 03/12/19 Cardiac Rehabilitation Info Cardiac Rehabilitation Program Information: Cardiac Rehabilitation is important for patients like you who are recovering from a heart problem. Cardiac rehabilitation programs are recognized as integral to the continued care of the patient with coronary heart disease. The cardiac rehabilitation program is designed to optimize a patient's physical, psychological, and social functioning. Health patient care specialist work in cardiac rehabilitation programs and assist you with getting the treatments you need to get stronger and healthier - like exercise, healthy eating habits, and medications. Cardiac rehabilitation has been show to help people with heart problems live longer and have better life enjoyment than people who do not go to cardiac rehabilitation. Please contact the Cardiac Rehabilitation Program at [facility] at in two weeks if you have not heard from them.
[2019-03-12] MEDS: Metoprolol(XL)Succ 50 MG Tablet PO (08:33)
[2019-03-12] MEDS: Aspirin E.C. 81 MG Tablet PO (08:33)
[2019-03-12] MEDS: Clopidogrel Bisulfate 75 MG Tablet PO (08:34)
--- NOTE | 2019-03-12 08:35 | NURSING ---
barbosa catheter removed per Dr. Ramsay order.
--- NOTE | 2019-03-12 10:25 | CL.I_ITS ---
Patient Name: FRANCISCO CONNOR Study Date: 03/11/2019 Performing: Hua Owens MD Ht: 66.93 inches 170 cm : 1950 Wt: 154.32 lbs 70 kg Age: 68 Gender: male BSA: 1.81 PROCEDURE(S) PERFORMED [id number] W OR WO PTCA, SINGLE CORONARY ARTERY CLINICAL PROFILE AND CO-MORBIDITIES Indications: Worsening Angina Heart Failure: None Stress/Imaging Stress/Image Study Performed: No CAD Presentations: Unstable angina. CONCLUSIONS Successful PCI with Drug eluting stent and PTCA to the mid and distal RCA RECOMMENDATIONS ASA Indefinitley Risk factor modification Plavix for at least 12 months Follow up with Dr. Ramsay PCI of LAD to be done at a later date DESCRIPTION OF PROCEDURE The patient arrived to the procedure lab. The risks and benefits of the procedure as well as a full d escription of our services here and current unavailability of surgical backup were fully explained to the patient and/or their significant other prior to the catheterization. The Timeout was completed, verifying the correct patient and procedure. The patient's procedural site was prepped and draped in the usual fashion. Local anesthetic was given subcutaneously to right radial region with Lidocaine 2% . Local anesthetic was given subcutaneously to right groin region with Lidocaine 2% Using a modified Seldinger technique,arterial access was obtained via the right radial artery, a 6Fr sheath was insert ed., arterial access was obtained via the right femoral artery, a 5Fr sheath was inserted. Left Coron link Artery selective angiography was performed in multiple views using a 5 Fr. JL4 catheter. Right Co ronary Artery selective angiography was then performed in multiple views using a 5 Fr. 3DRC (Hari) catheter. Left Ventriculography was performed in BEAULIEU projection using a 5 Fr. Pigtail catheter. LV to AO pullback pressures were then recorded.The images were reviewed and options discus sed. A decision was then made to proceed with an Intervention, IVUS or other adjunct procedure. Arterial sheath was exchanged for a 6 Fr Sheath. AL 1.0 Guide catheter was inserted and engaged i nto the RCA. BMW Guide wire was advanced to the RCA. Angiogram performed pre balloon dilatation. Carmen ge 2.50x12 Balloon catheter was inserted. PTCA balloon inflated at 10 atms for 14 secs. PTCA balloon inflated at 6 atms for 6 secs. Angiogram performed post balloon dilatation. Elunir 2.5x12 Drug Elutin g stent was inserted. Angiogram performed post stent deployment. Elunir 3.0x33 Drug Eluting stent was inserted. The arterial sheath was pulled and a TR Band was applied for hemostasis w/ 11ml air. The arterial sheath was sutured in place and capped INTERVENTION INFORMATION LESION SITE: RCA (Distal) Lesion Complexity: High/C, chronic total occlusion: No, lesion at bifurcation: No, thrombus present: No, lesion length: 11 mm, culprit lesion: Yes, Previously treated lesion: No Pre Stenosis: 95 % Pre intervention ROMULO flow: 3 PROCEDURE: Drug Eluting Stent with pre dilatation. Post Stenosis: 0 % Post intervention ROMULO flow: 3 Lesion Devices: [employer] EMERGE MR 2.50x12 BALLOON [employer] Elunir MILANA RX 2.5x12 LESION SITE: RCA (Mid) Lesion Complexity: High/C, chronic total occlusion: No, lesion at bifurcation: No, thrombus present: No, lesion length: 32 mm, culprit lesion: Yes, Previously treated lesion: No Pre Stenosis: 80 % Pre intervention ROMULO flow: 3 PROCEDURE: Drug Eluting Stent with pre dilatation. Post Stenosis: 0 % Post intervention ROMULO flow: 3 Lesion Devices: [employer] EMERGE MR 2.50x12 BALLOON [employer] Elunir MILANA RX 3.0X33 COMPLICATIONS No Complications PROCEDURE MEDICATIONS Versed 1 mg IV Fentanyl 50 mcg IV Versed 1 mg IV Fentanyl 25 mcg IV Oxygen: 2 L/min via nasal cannula Atropine 1mg/10ml 0.5 amp @ 03/11/2019 12:55:22 Heparin diluted in 23cc Heparinized saline. Patient given 1/2 solution 03/11/2019 12:02:25 Heparin diluted in 23cc Heparinized saline. Patient given 1/2 solution 03/11/2019 12:02:25 Heparin diluted in 23cc Heparinized saline. Patient given 1/2 solution 03/11/2019 12:07:59 Heparin 5000 unit(s) IV 03/11/2019 12:40:04 Nitro 200 mcg IC 03/11/2019 12:46:48 Verapamil 2.5mg, Ntg 100mcgs, 2000 units of Heparin diluted in 23cc Heparinized saline. Patient give n 1/2 solution 03/11/2019 12:02:25 Verapamil 2.5mg, Ntg 100mcgs, 2000 units of Heparin diluted in 23cc Heparinized saline. Patient give n 1/2 solution 03/11/2019 12:02:25 Verapamil 2.5mg, Ntg 100mcgs, 2000 units of Heparin diluted in 23cc Heparinized saline. Patient give n 1/2 solution 03/11/2019 12:07:59 IV Bolus: .9 NaCl 500 ml total 03/11/2019 12:24:12 SUMMARY OF HEMODYNAMIC DATA Time AIR REST ECG 09:14:41 ECG 09:19:06 AO 109/63 (83) SA 12:05:21 AO 95/55 (73) 12:20:46 LV 103/6, 15 12:29:56 LV 101/5, 15 12:30:02 LV 116/0, 20 12:31:32 LVp 116/-3, 20 12:31:37 AOp 110/55 (80) 12:31:42 RM AIR REST 12:54:20 Signed By Hua Owens MD On 03/12/2019 10:24:53 Hua Owens MD
--- NOTE | 2019-03-12 12:56 | NURSING ---
discussed with Dr. Ramsay, patient's difficulty with urinating. Dr Ramsay states ok for pt to d/c home and to follow up with PCP with urinary issues. Instructed pt to come back to ED if unable to void. Did void 50cc urine in urinal.
== END 2019-03-12 13:30 | disposition home or self-care (01) ==
LOC: CLSP 08:54 → ICU 12:48
PROVIDERS: Specialist; Family Provider Family Medicine; PCP Family Medicine; Referring Provider Internal Medicine Cardiovascular Disease; Visit Provider Internal Medicine Cardiovascular Disease
DX: I25.110 Atherosclerotic heart disease of native coronary artery with unstable angina pectoris (principal); R33.9 Retention of urine, unspecified; R07.9 Chest pain, unspecified; E78.5 Hyperlipidemia, unspecified; D83.9 Common variable immunodeficiency, unspecified; Z85.828 Personal history of other malignant neoplasm of skin; Z79.82 Long term (current) use of aspirin; Z79.899 Other long term (current) drug therapy; Z98.890 Other specified postprocedural states
CPT/HCPCS: 51702; 80053; 81001; 85027; 85347; 92928; 93005; 93458; 99152; 99153; 99283; J7030; J7040; Q9967; A4216; C1725; C1769; C1874; C1887; C1894; C9600; J1327

== ENCOUNTER 2019-03-12 17:18 | Emergency (ER) | payer MEDICARE, OTHER, SELFPAY ==
[2019-03-11 14:03] VITALS: BMI 24.3
[2019-03-12 07:40] VITALS: BMI 24.5
[2019-03-12 17:20] VITALS: BP 143/76; PULSE 74; RESP 16; TEMP 36.7; O2SAT 98; BMI 24.3
--- NOTE | 2019-03-12 18:00 | ED.VISSUMM ---
- ER Visit Summary Date of Service: 03/12/19 Chief Complaint: Urinary retention and dysuria History of Present Illness: The patient is a 68 M who presents with dysuria and urinary retention that began yesterday. Patient had a heart catheterization done yesterday and had 2 stents placed. Patient states that after his heart catheterization he was having difficulty urinating. Patient states a straight catheter was performed and he felt better. Patient was unable to urinate after having the straight catheter placed. Patient admits to pressure in his lower abdomen. He denies any fevers or chills. Patient admits to some mild low back pain. Physical Examination: Vital signs are stable. Patient is afebrile. Patient is in no acute distress. Oral mucosa is pink and moist. Neck is supple. Trachea is midline. There is no JVD noted. Abdomen is soft. Bowel sounds are normal. There is distention of the bladder. There is mild tenderness in the suprapubic area. There is no rebound or guarding noted. Cranial nerves II through XII are intact. There are no focal motor or sensory deficits noted. Test Results: Urinalysis was obtained. Occult blood was 150 with 10-25 red blood cells. There is no sign of urinary tract infection. Emergency Department Course and Treatment: Kirkpatrick catheter was placed. Patient felt better on reevaluation. Patient was instructed to follow-up with his primary care physician in 2 days for reevaluation. Patient was given a prescription for a short course of Flomax. Patient understood and was agreeable with the plan. All questions were answered. Disposition: Discharge home Impression: Urinary retention This note was generated with [employer] dictation software. It may contain incorrect words, spelling, and punctuation that were not noted in review of the chart prior to signing ED Disposition - Plan for ED Patient: Disposition: Home or Assisted Living Diagnosis: Urinary retention Instructions: URINARY RETENTION, Male, Kirkpatrick Catheter, Care Prescriptions: Tamsulosin HCl [Flomax] 0.4 mg PO DAILY #7 cap Prescription Printed Referrals: Mahesh Avendano MD [Primary Care Provider] - 2 Days
[2019-03-12] MEDS: Lidocaine Jelly 2% 20 ML Syringe (URO-JET) 20 APPLIC TOPICAL (18:23)
[2019-03-12 18:54] LABS: Bacteria 0 SEEN /hpf (None Seen); Mucous, Urine 0 SEEN /hpf (<or=2+); White Blood Cells 0 SEEN /hpf (0-5)
[2019-03-12 18:55] LABS: Color, Urine Yellow (Yellow); Glucose, Dipstick Normal (Normal); Ketone-Dipstick Negative (Negative); Leukocyte Esterase-Dipstick Negative /ul (Negative); Nitrite-Dipstick Negative (Negative); Occult Blood-Urine 150 /ul (Negative); Protein-Dipstick 15 mg/dl (Negative); Urine Bilirubin Dipstick Negative (Negative); Urine Clarity Sl. Cloudy (Clear); Urine Urobilinogen Normal (Normal)
[2019-03-12 19:02] LABS: Red Blood Cells-Urine 10-25 SEEN /hpf (0-5); Squamous Epithelial Cells - UA 0-5 SEEN /hpf (0-5)
== END 2019-03-12 19:41 | disposition home or self-care (01) ==
PROVIDERS: Emergency Provider Emergency Medicine; Family Provider Family Medicine; PCP Family Medicine
DX: R33.9 Retention of urine, unspecified (principal); Z98.890 Other specified postprocedural states
CPT/HCPCS: 51702; 81001; 99283

== ENCOUNTER 2019-03-15 18:49 | Emergency (ER) | payer MEDICARE, OTHER, SELFPAY ==
[2019-03-11 14:03] VITALS: BMI 24.3
[2019-03-15 10:50] VITALS: BMI 23.9
[2019-03-15 18:49] VITALS: BP 147/82; PULSE 75; RESP 16; TEMP 36.7; O2SAT 97; BMI 24.3
[2019-03-15 20:09] LABS: Mucous, Urine 0 SEEN /hpf (<or=2+)
[2019-03-15 20:36] LABS: Color, Urine Yellow (Yellow); Glucose, Dipstick Normal (Normal); Ketone-Dipstick Negative (Negative); Leukocyte Esterase-Dipstick 25 /ul (Negative); Nitrite-Dipstick Negative (Negative); Occult Blood-Urine 250 /ul (Negative); Protein-Dipstick 30 mg/dl (Negative); Specific Gravity, Urine 1.015 (1.002-1.030); Urine Bilirubin Dipstick Negative (Negative); Urine Clarity Clear (Clear); Urine Urobilinogen Normal (Normal); Urine pH 6.5 (5.0 - 8.0)
[2019-03-15 20:52] LABS: Red Blood Cells-Urine > 100 SEEN /hpf (0-5); Squamous Epithelial Cells - UA 0-5 SEEN /hpf (0-5); White Blood Cells 0-5 SEEN /hpf (0-5)
[2019-03-15 20:53] LABS: Bacteria RARE /hpf (None Seen)
--- NOTE | 2019-03-15 20:59 | ED.VISSUMM ---
- ER Visit Summary Date of Service: 03/15/19 Chief Complaint: [Difficulty urinating] History of Present Illness: The patient is a 68 M [resents to the emergency department with inability to void. Patient states that he had a Kirkpatrick catheter placed 5 days ago after having 2 cardiac stents placed and being in the intensive care unit. Patient left the hospital and was told to come to the emergency department to have a Kirkpatrick catheter placed because they could not leave it in in the ICU. Patient saw his primary care physician today who removed the Kirkpatrick catheter and he was supposed to follow-up with the urologist however the urologist is not seeing patients today. His Kirkpatrick catheter is been out since 8 AM today and patient is only able to get small amounts of urine out and does not feel like he is able to completely empty his bladder.] Denies any fevers or back pain. He said no vomiting. Physical Examination: [HEENT-PERRLA, EOMI. Cranial nerves II through XII grossly intact. TMs clear. Mucous membranes moist. No adenopathy. Cardiovascular-regular rate and rhythm without murmur or ectopy Lungs-clear to auscultation, chest wall stable without crepitus or subcu emphysema Abdomen-normoactive bowel sounds, soft. Patient has some mild tenderness over the suprapubic region. There is no rebound, rigidity, hernial signs. Extremities-intact ?4, normal range of motion, normal pulses, atraumatic] Test Results: [Analysis showed greater than 100 RBCs but no signs of infection] Emergency Department Course and Treatment: [Kirkpatrick catheter was placed and 800 cc of urine was obtained.] Treatment Plan: [Will be discharged home with instructions to follow-up with urology.] Disposition: [Discharged home stable condition] Impression: [Urinary retention] This note was generated with [employer] dictation software. It may contain incorrect words, spelling, and punctuation that were not noted in review of the chart prior to signing ED Disposition - Plan for ED Patient: Referrals: Mahesh Avendano MD [Primary Care Provider] -
--- NOTE | 2019-03-15 21:02 | ED.DEP ---
ED Disposition - Plan for ED Patient: Instructions: URINARY RETENTION, Male Referrals: Mahesh Avendano MD [Primary Care Provider] - Blaine Lee MD [STAFF PHYSICIAN] - 3-5 Days
== END 2019-03-15 21:07 | disposition home or self-care (01) ==
LOC: ED 19:38
PROVIDERS: Emergency Provider Emergency Medicine; Family Provider Family Medicine; PCP Family Medicine
DX: R33.9 Retention of urine, unspecified (principal); I25.10 Atherosclerotic heart disease of native coronary artery without angina pectoris; E78.5 Hyperlipidemia, unspecified; D83.9 Common variable immunodeficiency, unspecified; Z95.5 Presence of coronary angioplasty implant and graft
CPT/HCPCS: 36415; 51702; 80048; 81001; 85025; 99283

== ENCOUNTER → 2019-03-15 | Outpatient (CLI) | payer MEDICARE, OTHER, SELFPAY ==
[2019-03-11 14:03] VITALS: BMI 24.3
[2019-03-15 10:50] VITALS: BMI 23.9
[2019-03-15 13:15] LABS: Absolute Lymphocyte Count 1.03 X10^3/ul (0.83-4.51); Hematocrit 38.4 % (40-54); Hemoglobin 12.9 g/dl (13.0-16.5); Lymphocyte # 1.03 X10^3/ul (4.0); Lymphocyte % 18.3 % (19-41); Mean Corp Hgb Conc 33.6 g/gl (32-36); Mean Corpuscular Hgb 30.1 pg (27.0-32.0); Mean Corpuscular Volume 89.5 fL (80-94); Mean Platelet Vol. 10.8 fl (6.2-12.0); Monocyte# 0.62 X10^3/uL; Neutrophil # 3.97 X10^3/uL (2.7-7.7); Neutrophil % 70.3 % (47-70); Platelet Count 132 K/mm3 (150-450); RBC Distribution Width CV 12.4 % (11.6-14.6); RBC Distribution Width SD 39.8 fl (35.1-43.9); Red Blood Count 4.29 M/mm3 (4.6-6.2); White Blood Count 5.6 K/mm3 (4.4-11.0)
[2019-03-15 13:17] LABS: POSITIVE COUNT NO; POSITIVE DIFFERENTIAL NO; POSITIVE MORPHOLOGY NO
[2019-03-15 13:36] LABS: Anion Gap 5 (5-15); BUN 18 mg/dL (7-18); BUN/Creat Ratio 21.3 RATIO (10-20); Chloride 104 mmol/L (98-107); Creatinine, Serum 0.85 mg/dL (0.70-1.30); EST Glomerular Filtration Rate 96 mL/min (>60); Est Glom Filt Rate - Afr Amer 116 mL/min (>60); Glucose 104 mg/dL (74-106); Potassium 4.2 mmol/L (3.5-5.1); Sodium Level 137 mmol/L (136-145)
== END | disposition home or self-care (01) ==
LOC: LAB 12:13
PROVIDERS: Family Provider Family Medicine; PCP Family Medicine; Referring Provider Physician Assistant Medical; Visit Provider Physician Assistant Medical
DX: I25.10 Atherosclerotic heart disease of native coronary artery without angina pectoris (principal)
CPT/HCPCS: 36415; 80048; 85025

== ENCOUNTER 2019-03-21 06:55 | Day surgery (SDC) | payer MEDICARE, OTHER, SELFPAY ==
[2019-03-11 14:03] VITALS: BMI 24.3
--- NOTE | 2019-03-15 11:38 | HP_ITS ---
HPI HPI History of Present Illness Surgical H&P: Yes Details: This is a 68-year-old gentleman that recently established with us for chest discomfort with exertion. He underwent a diagnostic heart catheterization which demonstrated coronary artery disease where he had stenting to his RCA, he is here today to have an updated history and physical for a staged procedure for stenting of his LAD on 03/21/19. Pt is still having issues with urine retention and would like a referral to urology. Because of this he has not exercised so he is unable to say if he had chest pain. He does not have any worsening SOB. He does not have any does not have any lightheadedness/dizziness/syncope He does not have any palpitations that he is aware of. 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 Required: No Accompanied by: None Is patient in pain?: No Allergies No Known Allergies Allergy (Verified 03/15/19 10:50) Medications Guar Gum [Fiber] 2 gm PO DAILY 06/10/13 [History Confirmed 03/15/19] Multivitamins,Therapeutic [Multivitamin] 1 tab PO DAILY 06/10/13 [History Confirmed 03/15/19] Folic Acid 1 tab PO BID 12/24/13 [History Confirmed 03/15/19] albuterol sulfate HFA 90 mcg/actuation aerosol inhaler 2 puff INHALATION Q4H PRN #1 device 01/30/19 [Rx Confirmed 03/15/19] aspirin 81 mg tablet,delayed release 81 mg PO DAILY 03/04/19 [History Confirmed 03/15/19] immune glob,gamma(IgG) 10 [id number]-IgA 0 to 50 mcg/mL IV solution 20 g .ROUTE .[id number] ea 03/04/19 [History Confirmed 03/15/19] metoprolol succinate ER 50 mg tablet,extended release 24 hr 50 mg PO DAILY #60 tab 03/06/19 [Rx Confirmed 03/15/19] Tamsulosin HCl [Flomax] 0.4 mg PO DAILY #7 cap 03/12/19 [Rx Confirmed 03/15/19] clopidogrel 75 mg tablet 75 mg PO DAILY #90 tab 03/15/19 [Rx Confirmed 03/15/19] lisinopril 2.5 mg tablet 2.5 mg PO DAILY #90 tab 03/15/19 [Rx Confirmed 03/15/19] rosuvastatin 40 mg tablet 40 mg PO DAILY 03/15/19 [History Confirmed 03/15/19] [facility] Medical History Atherosclerosis of coronary artery of douglas heart without angina pectoris (Chronic) Hyperlipidemia (Chronic) Common variable immunodeficiency (Chronic) Abnormal chest CT (Chronic) Basal cell carcinoma of left ear (Chronic) Benign prostate hyperplasia (Chronic) 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) Pneumonia (Resolved) Surgical History (Updated 03/12/19 @ 12:29 by Agnes Ramos) History of coronary artery stent placement (Acute 03/11/19) History of bilateral cataract extraction (Resolved) History of herniorrhaphy (Resolved) Family History (Updated 03/06/19 @ 09:06 by Agnes Ramos) Mother Heart disease valve replacement Father Parkinson disease Social History (Updated 03/15/19 @ 13:12 by KIM Kwon) Smoking Status: Never smoker ROS Const Const: Negative for fatigue, weakness, fever(s) or headache(s) Eyes Eyes: Negative for blind spots, loss of peripheral vision or transient loss of vision ENT ENT: Negative for headache(s), dizziness, tinnitus or Nosebleed/epistaxis Cardio Chest Pain: No Palpitations: No Edema: None Muscle aches with walking: None Resp Respiratory: Negative for SOB with activity, SOB at rest, SOB orthopnea\SOB lying down or Cough GI GI: Negative nausea, vomiting, heartburn or vomiting blood/hematemesis : Negative for hematuria Musc Musc: Negative for muscle aches/ myalgia Neuro Neuro: Negative for dizziness, lightheadedness, near syncope, syncope, orthostatic symptoms, headache(s) or weakness Bunny Hematologic/Lymphatic: Negative for easy bleeding Endo Endo: Negative for fatigue Cardiology Exam Const Appearance: cooperative, no acute distress and well developed Orientation: alert, awake and oriented x3 Head Head: normocephalic and atraumatic Mouth: moist mucous membranes Eyes General: appearance normal, both eyes and all related structures Conjunctivae: conjunctivae normal Pupils: PERRL EOM: EOM intact bilaterally Neck Neck: normal visual inspection, no lymphadenopathy and no JVD Carotids: Negative bruit Neck Mass: Negative Neck mass Chest Chest inspection: normal inspection of the chest and symmetric chest movement Auscultation: Bilateral: Clear to Auscultation Cardio Palpation: normal PMI Rate: regular rate Rhythm: regular rhythm Heart sounds: S1 normal and S2 normal; negative rub, gallop or murmur GI GI: normal to inspection, soft, no hepatosplenomegaly and bowel sounds present; negative tender Neuro General: alert, awake, oriented x3, CN's II-XI intact bilaterally and moves all extremities Extremities Pulses: Normal: Right Posterior Tibial Pulse, Left Posterior Tibial Pulse, Right Radial Pulse, Left Radial Pulse Lower Extremity Edema: None: Bilateral Psych Psychological: normal affect Assessment & Plan 1. Atherosclerosis of douglas coronary artery of douglas heart without angina pectoris I25.10 [id number] RCA w/ 2.5 x 12 mm Elunir Stent and MILANA-Mid RCA w/ 3.0 x 33 mmm Elunir Stent 03/11/19 Plan Patient is scheduled for a staged PCI with Dr. Owens on March 21, 2019. He is aware that he needs to maintain his aggressive medical management. He was started on an RAVI inhibitor in addition to his beta-leonie, Plavix, aspirin and statin. After he has completed his staged procedure he will then be referred to cardiac rehab Orders Orders: Basic Metabolic Profile (BMP) Today KIM Kwon CBC W/Diff, Automated Today KIM Kwon Stent 03/21/19 Demian Ramsay MD 2. Pure hypercholesterolemia E78.00; E78.0 Plan Primary care doctor did switch statin to Crestor instead of pravastatin. He will continue with current high intensity statin therapy 3. Essential hypertension I10 Plan Blood pressure slightly elevated today. We are adding a small dose of lisinopril that should help with this for aggressive medical manage Plan Detail Other Orders Orders: Basic Metabolic Profile (BMP) Today D83.9, E78.5, Z95.5 KIM Kwon Stent 03/21/19 D83.9, E78.5, Z95.5 Demian Ramsay MD Referrals: Urology R33.9 KIM Kwon Other Medications New: lisinopril 2.5 mg PO DAILY 90 tabs 3RF KIM Kwon rosuvastatin (Crestor) 40 mg PO DAILY KIM Kwon Refilled: clopidogrel 75 mg PO DAILY 90 tabs 3RF KIM Kwon Additional Comments Thank you for allowing us to participate in patient's plan of care, if you have any questions please do not hesitate to call. This note was generated using a voice recognition system and there may be incorrect words, spelling or punctuation errors that were not noted when reviewing the office note prior to saving. Follow Up 2 Weeks (after heart cath with either MMM/JHR) 03/15/19 (please print labs for labs to be done today- thanks) Coding Level of Care Code Off vis,est,level 3 Diagnoses Atherosclerosis of douglas coronary artery of douglas heart without angina pectoris I25.10 ??Coronary Disease-Associated Artery/Lesion type: douglas artery Pure hypercholesterolemia E78.00; E78.0 ??Hyperlipidemia type: pure hypercholesterolemia Essential hypertension I10 ??Hypertension type: essential hypertension Coding Level of Care Code Off vis,est,level 3 Diagnoses Atherosclerosis of douglas coronary artery of douglas heart without angina pectoris I25.10 ??Coronary Disease-Associated Artery/Lesion type: douglas artery Pure hypercholesterolemia E78.00; E78.0 ??Hyperlipidemia type: pure hypercholesterolemia Essential hypertension I10 ??Hypertension type: essential hypertension Supplemental Info Supplemental Information CORONARY ANGIOGRAPHY 03/11/2019: DOMINANCE: Right Dominant LEFT HEART ASSESSMENT Left Ventricular Ejection Fraction: by LV Gram 65 % Normal LV wall motion LEFT MAIN: Mild calcification, Non-obstructive LEFT ANTERIOR DESCENDING ARTERY: PROX LAD: Mild luminal irregularities less than 30% MID LAD: 75 % Stenosis CIRCUMFLEX ARTERY: Mild luminal irregularities less than 30% RIGHT CORONARY ARTERY: PROX RCA: Mild luminal irregularities MID RCA: 80 eccentric % Stenosis DISTAL RCA: 95 % Stenosis PCI 03/11/2019: Successful PCI with Drug eluting stent and PTCA to the mid and distal RCA Diagnostics Electrocardiogram 03/11/19 Cardiac Catheterization 03/11/19 Pulmonary Pulmonary Function Test 03/06/19 03/15/19 1312 <Electronically signed by Lory M Mc Wolford PA> Date _ Lory ALVAREZ
[2019-03-20 07:27] VITALS: BMI 23.9
[2019-03-21] VITALS (30 sets, daily range): BP systolic 95–148; BP diastolic 42–94; PULSE 59–84; RESP 10–19; TEMP 36.8–36.9; O2SAT 95–100; BMI 24.0
--- NOTE | 2019-03-21 10:11 | DCINST_ITS ---
Discharge Diet: Low fat/ Low Cholesterol Discharge Activity: Return to Normal Activity May shower in (days): 1 - No tub baths for 5 days May resume sexual activity in: 1-2 weeks Lifting Restrictions: Do not lift anything greater than 10 pounds for 3 days Call your doctor if your incision/area has: Continuous Slow Oozing, Sudden Increased Bleeding, Increased Pain/ Swelling, Increased Redness, Foul Smelling Discharge, Swelling at the incision site Call your doctor if you observe: Fever of 101 or Higher, Shortness of breath, Chest pain Remove Dressing in (days):: 1 Cleanse incision/area with: Soap & Water Additional Instructions: You will continue with Aspirin therapy. You will remain on Plavix therapy for at least one year starting from 03/21/2019. You will keep your already scheduled appointment with Lory Moreau Physician Mounter Smoking Pipe, on 04/05/2019 at 2 PM at the [facility]. If you have any questions or concerns please call the [facility] Office at [phone] Allergies/Adverse Reactions: Allergies No Known Allergies Allergy (Verified 03/20/19 07:28) Medications to take at Discharge RX: Guar Gum [Fiber] 2 gm PO DAILY 06/10/13 RX: Multivitamins,Therapeutic [Multivitamin] 1 tab PO DAILY 06/10/13 RX: Folic Acid 1 tab PO BID 12/24/13 albuterol sulfate HFA 90 mcg/actuation aerosol inhaler 2 puff INHALATION Q4H PRN #1 device 01/30/19 aspirin 81 mg tablet,delayed release 81 mg PO DAILY 03/04/19 immune glob,gamma(IgG) 10 [id number]-[id number]-[id number]-IgA 0 to 50 mcg/mL IV solution 20 g .ROUTE .[id number] ea 03/04/19 metoprolol succinate ER 50 mg tablet,extended release 24 hr 50 mg PO DAILY #60 tab 03/06/19 RX: Tamsulosin HCl [Flomax] 0.4 mg PO DAILY #7 cap 03/12/19 clopidogrel 75 mg tablet 75 mg PO DAILY #90 tab 03/15/19 lisinopril 2.5 mg tablet 2.5 mg PO DAILY #90 tab 03/15/19 rosuvastatin 40 mg tablet 40 mg PO DAILY 03/15/19 Primary Care Physician: Mahesh Avendano MD [Primary Care Provider] - Test Results: Test results from this visit will be discussed in further detail at your follow- up appointment, if applicable. Please Follow Up With: Lory Moreau - Physician Mounter Smoking Pipe When: 04/05/2019 at 2:00 PM Proposed Discharge Date: 03/22/19 Cardiac Rehabilitation Info Cardiac Rehabilitation Program Information: Cardiac Rehabilitation is important for patients like you who are recovering from a heart problem. Cardiac rehabilitation programs are recognized as integral to the continued care of the patient with coronary heart disease. The cardiac rehabilitation program is designed to optimize a patient's physical, psychological, and social functioning. Health child care giver work in cardiac rehabilitation programs and assist you with getting the treatments you need to get stronger and healthier - like exercise, healthy eating habits, and medications. Cardiac rehabilitation has been show to help people with heart problems live longer and have better life enjoyment than people who do not go to cardiac rehabilitation. Please contact the Cardiac Rehabilitation Program at [facility] at in two weeks if you have not heard from them.
--- NOTE | 2019-03-21 10:15 | EKG12_ITS ---
Test Reason : POST PCI Blood Pressure : / mmHG Vent. Rate : 071 BPM Atrial Rate : 071 BPM P-R Int : 142 ms QRS Dur : 090 ms QT Int : 382 ms P-R-T Axes : 074 077 063 degrees QTc Int : 415 ms Normal sinus rhythm Normal ECG When compared with ECG of 12-MAR-2019 05:04, No significant change was found Confirmed by HAZEL MACDONALD, MAYRA ([id number]), editorial writer YCNTHIA NEWBY ([id number]) on 03/22/2019 2:17:38 PM Referred By: Bryon Owens Confirmed By:BRYON OWENS MD
--- NOTE | 2019-03-21 10:22 | CL.I_ITS ---
Patient Name: FRANCISCO CONNOR Study Date: 03/21/2019 Performing: Hua Owens MD Ht: 67 inches 170 cm : 1950 Wt: 148.7 lbs 67.35 kg Age: 68 Gender: male BSA: 1.78 PROCEDURE(S) PERFORMED [id number]-WMP W OR WO PTCA, SINGLE CORONARY ARTERY CLINICAL PROFILE AND CO-MORBIDITIES Indications: Stable Known CAD Heart Failure: None Stress/Imaging Stress/Image Study Performed: No CAD Presentations: Other: staged PCI of LAD. Patient had presented with ACS and has PCI of RCA CONCLUSIONS Successful PCI with MILANA to mLAD RECOMMENDATIONS Follow up with primary materials engineer Plavix for at least 12 months ASA Indefinitley DESCRIPTION OF PROCEDURE The patient arrived to the procedure lab. The risks and benefits of the procedure as well as a full d escription of our services here and current unavailability of surgical backup were fully explained to the patient and/or their significant other prior to the catheterization. The Timeout was completed, verifying the correct patient and procedure. The patient's procedural site was prepped and draped in the usual fashion. Local anesthetic was given subcutaneously to right radial region with Lidocaine 2% . Local anesthetic was given subcutaneously to right groin region with Lidocaine 2%. Using a modified Seldinger technique, arterial access was obtained via the right radial artery, a 6Fr sheath was inse rted., arterial access was obtained via the right femoral artery, a 6Fr sheath was inserted.. Angiogram performed of right arm XB 3.0 Guide catheter was inserted and engaged into the LCA. [employer] [place] Guide wire was advanced to the LAD. Synergy 3.0 x 16 Drug Eluting stent was inserted. Drug Eluting stent was advanced across the lesion in the LAD, mid. Angiogram performed pre stent deployme nt. Angiogram performed post stent deployment. The radial arterial sheath was pulled and a TR Band w as applied for hemostasis. The femoral arterial sheath was sutured in place and capped INTERVENTION INFORMATION LESION SITE: LAD (Mid) Lesion Complexity: High/C, chronic total occlusion: No, lesion at bifurcation: No, thrombus present: No, lesion length: 12 mm, culprit lesion: Yes, Previously treated lesion: No Pre Stenosis: 80 % Pre intervention ROMULO flow: 3 PROCEDURE: Drug Eluting Stent Post Stenosis: 0 % Post intervention ROMULO flow: 3 Lesion Devices: Cordis 6 Fr XB3.0 100cm Guide Catheter Garcia .014 [employer] [place] Straight 190cm Rafael Sci Synergy MR MILANA 3.00x16 COMPLICATIONS No Complications PROCEDURE MEDICATIONS Fentanyl 25 mcg IV Versed 1 mg IV Fentanyl 25 mcg IV Oxygen: 2 L/min via nasal cannula Heparin given IA 03/21/2019 08:54:57 Heparin 2000 unit(s) IV 03/21/2019 08:55:17 Heparin 1000 unit(s) IV 03/21/2019 09:23:38 Verapamil 2.5mg, Ntg 100mcgs, 3000 units of Heparin given IA 03/21/2019 08:54:57 IV Bolus: .9 NaCl 500 ml total 03/21/2019 08:58:40 SUMMARY OF HEMODYNAMIC DATA Time AIR REST ECG 07:18:39 ECG 08:24:28 AO 70/41 (53) SA 08:56:44 AO 83/40 (57) 09:00:43 AO 101/50 (72) 09:27:59 Signed By Hua Owens MD On 03/21/2019 10:21:34 Hua Owens MD
[2019-03-21] MEDS: 0.9% Normal Saline 1,000 ML 100 ML IV (10:48)
[2019-03-21] MEDS: 0.9% NaCl Peripheral Flush Adult/Peds IV (10:48)
--- NOTE | 2019-03-21 11:10 | CRPHASE1 ---
Patient Communication Former Patient:: Phase I PHII Cardiac Rehab Discussed with Patient:: Yes Guide to Cardiac Rehab Given to Patient:: Yes Cardiac Rehab Facility Choice List Given to Patient:: Yes Choice Program [facility] PHII:: Communication Given to CR, Refer to [facility] Three Knife Trimmer:: Crow Owens Phase II Cardiac Rehab:: Yes Sessions:: 36 sessions - 3 days/wk, 12 weeks Risk Factors/Lifestyle Family History: Family History (Last Reviewed 03/13/19 @ 09:16 by Nora Duffy) Mother Heart disease Father Parkinson disease Cardiac Rehabilitation Info Cardiac Rehabilitation Program Information: Cardiac Rehabilitation is important for patients like you who are recovering from a heart problem. Cardiac rehabilitation programs are recognized as integral to the continued care of the patient with coronary heart disease. The cardiac rehabilitation program is designed to optimize a patient's physical, psychological, and social functioning. Health direct care specialist work in cardiac rehabilitation programs and assist you with getting the treatments you need to get stronger and healthier - like exercise, healthy eating habits, and medications. Cardiac rehabilitation has been show to help people with heart problems live longer and have better life enjoyment than people who do not go to cardiac rehabilitation. Please contact the Cardiac Rehabilitation Program at [facility] at in two weeks if you have not heard from them.
--- NOTE | 2019-03-21 11:11 | CRPH1.INSTRU ---
General Education CAD and cardiac anatomy and function:: Not instructed Explanation of diagnoses and procedures:: Not instructed Sign/Symptoms of [place]:: Not instructed Antiplatelet therapy: Not instructed Proper use of NTG-SL: Not instructed Emergency procedures and activation of EMS: Not instructed Compliance of all prescribed medications: Not instructed - Former Ph I pt. Booklet given previously.
[2019-03-21 11:30] LABS: ACT Activated Clotting Time 158 sec (74-137)
--- NOTE | 2019-03-21 13:20 | CASEMGMT ---
RN MASON MANUFACTURING QUALITY INSPECTOR CM to room to meet with patient for initial transition planning/care coordination assessment. JOSÉ LUIS CUEVAS introduced self and role at [facility]. Pt voices understanding and consents to assessment at this time. Pt resting in bed in no distress at this time. Pt is A/O at this time and answers all questions appropriately. Care providers, pharmacy, and demographics verified at this time. PCP: Juan Alberto Specialists: Nicolasa--cardiology, Servando--pulmonology, Rosa--urology Preferred Pharmacy: [email or web address] Insurance: [facility] [place], MMO Prescription Benefit: Yes Living Will/HPOA: Has both LW and HCPOA who is his , [place] MCGUIRE: Living Arrangements: Lives in 2-story home with his . FFSU. States is independent w/ADL's. does most of cooking and cleaning. Pt mows the lawn. Transportation: Pt states drives self and states no transportation concerns at this time. will drive home @ D/C DME: Denies using any DME and denies needs. HHC/SNF: No history of either. Pt wishes to return home and states has no concerns with going home at time of discharge. Had PCI 03/21. Plan is to go home on Plavix. CM to follow for any discharge planning/needs. Pt voices no further concerns/needs at this time. Advised pt to ask for CM if any further questions/concerns/needs arise. Voices understanding. PLAN: Home w/spousal support and discharge plans in place . Elodia ZAVALA RN, CM
[2019-03-21 13:31] LABS: ACT Activated Clotting Time 191 sec (74-137)
[2019-03-21] MEDS: Folic Acid 1 MG Tablet PO (16:26)
[2019-03-21] MEDS: Atorvastatin Calcium 80 MG Tablet PO (21:19)
[2019-03-22] VITALS (12 sets, daily range): BP systolic 91–132; BP diastolic 46–59; PULSE 57–77; RESP 7–18; TEMP 36.8–36.9; O2SAT 95–98
[2019-03-22 04:31] LABS: Hematocrit 34.2 % (40-54); Hemoglobin 11.7 g/dL (13.0-16.5); Mean Corp Hgb Conc 34.2 g/dL (32-36); Mean Corpuscular Hgb 30.6 pg (27.0-32.0); Mean Corpuscular Volume 89.5 fL (80-94); Mean Platelet Vol. 10.9 fl (6.2-12.0); Platelet Count 140 K/mm3 (150-450); RBC Distribution Width CV 12.2 % (11.6-14.6); RBC Distribution Width SD 39.7 fl (35.1-43.9); Red Blood Count 3.82 M/mm3 (4.6-6.2); White Blood Count 4.3 K/mm3 (4.4-11.0)
[2019-03-22 04:38] LABS: Anion Gap 7 (5-15); BUN 13 mg/dL (7-18); BUN/Creat Ratio 18.9 RATIO (10-20); Calcium,Total 8.3 mg/dL (8.5-10.1); Chloride 109 mmol/L (98-107); Cholesterol 127 mg/dL (200); Creatinine, Serum 0.69 mg/dL (0.70-1.30); EST Glomerular Filtration Rate 122 mL/min (>60); Est Glom Filt Rate - Afr Amer 148 mL/min (>60); Estimated Creatinine Clearance 67.94 ml/min; Glucose 104 mg/dL (74-106); High Density Lipoprotein 27 mg/dL; Sodium Level 141 mmol/L (136-145); Triglycerides 173 mg/dL; Very Low Density Lipoprotein 35 mg/dL (5-40)
[2019-03-22] MEDS: Metoprolol(XL)Succ 50 MG Tablet PO (08:18)
[2019-03-22] MEDS: Folic Acid 1 MG Tablet PO (08:19)
[2019-03-22] MEDS: Multivitamins,Therapeutic Tablet 1 TABLET PO (08:19)
[2019-03-22] MEDS: Aspirin E.C. 81 MG Tablet PO (08:19)
[2019-03-22] MEDS: Lisinopril 2.5 MG Tablet PO (08:19)
[2019-03-22] MEDS: Clopidogrel Bisulfate 75 MG Tablet PO (08:19)
[2019-03-22] MEDS: Tamsulosin HCl 0.4 MG Capsule PO (08:19)
--- NOTE | 2019-03-22 08:34 | PCM.PN.CARD ---
Subjectve: Patient seen and evaluated. Appears to be doing well. No complications. No issues. Objective: Vital Signs Temp Pulse Resp BP Pulse Ox 98.4 F 70 16 128/59 H 95 03/22/19 04:00 03/22/19 08:18 03/22/19 08:00 03/22/19 08:00 03/22/19 08:00 Oxygen Delivery Method Room Air Weight: 153 lb 10.595 oz Body Mass Index (BMI) 24.0 Intake and Output for Last 24 Hours 03/20/19 03/21/19 03/22/19 23:59 23:59 23:59 Intake Total 1772 / 1922 425 / 425 Output Total 500 / 700 650 / 650 Balance 1272 / 1222 -225 / -225 General: Awake, Alert, Oriented x 3 HEENT: PERRL, EOMI, Sclera Non Icteric Neck: Supple, Good ROM, No Lymph Node Enlargement Lungs: Clear to auscultation Cardiovascular: Regular Rhythm, Normal S1, Normal S2, No Murmurs, No Rubs, No Gallops Vascular: No Carotid Bruits, Normal Femoral Pulses, Normal Radial Pulses, Normal Dorsalis Pedal Pulse, Normal Posterior Tibial Pulses Abdomen: Bowel Sounds Present, Soft, Non Tender, No HSM, No Organomegaly Extremities: No Cyanosis, No Clubbing, No edema Neurological: No Focal Motor or Sensory Deficit 03/22/19 04:03: WBC 4.3 L, RBC 3.82 L, Hgb 11.7 L, Hct 34.2 L, MCV 89.5, MCH 30.6, MCHC 34.2, Plt Count 140 L, MPV 10.9 03/22/19 04:03: Sodium 141, Potassium 4.0, Chloride 109 H, Carbon Dioxide 25.0, Anion Gap 7, BUN 13, Creatinine 0.69 L, Est GFR (MDRD) Af Amer 148, Est GFR (MDRD) Non-Af 122, BUN/Creatinine Ratio 18.9, Glucose 104, Calcium 8.3 L, Triglycerides 173, Cholesterol 127, LDL Cholesterol 65, VLDL Cholesterol 35, HDL Cholesterol 27 L Rhythm: EKG: ECHO: Stress Test: Cardiac Cath: PCI: CT Surgery: Holter monitor: EPS: PPM: CXR: Chest CT Scan: Medical Necessity - Tobacco Use Smoking Status: Never smoker Assessment/Plan 1. Coronary artery disease. Patient underwent successful drug-eluting stent placement to the left anterior descending artery. The plan is for him to continue current medical therapy and follow-up as an outpatient.
--- NOTE | 2019-03-22 10:00 | EKG12_ITS ---
Test Reason : AM EKG Blood Pressure : / mmHG Vent. Rate : 065 BPM Atrial Rate : 065 BPM P-R Int : 140 ms QRS Dur : 094 ms QT Int : 396 ms P-R-T Axes : 067 067 061 degrees QTc Int : 411 ms Normal sinus rhythm Normal ECG When compared with ECG of 21-MAR-2019 09:58, MANUAL COMPARISON REQUIRED, DATA IS UNCONFIRMED Confirmed by GEE MACDONALD, ALEXANDRIA ([id number]), managing editor CYNTHIA NEWBY ([id number]) on 03/26/2019 2:04:05 PM Referred By: Nish Owens Confirmed By:ALEXANDRIA FLYNN MD
== END 2019-03-22 08:29 | disposition home or self-care (01) ==
LOC: CLSP 06:56 → ICU 12:46
PROVIDERS: Nurse Practitioner Family; Family Provider Family Medicine; PCP Family Medicine; Referring Provider Specialist; Visit Provider Specialist
DX: I25.10 Atherosclerotic heart disease of native coronary artery without angina pectoris (principal); D83.9 Common variable immunodeficiency, unspecified; E78.00 Pure hypercholesterolemia, unspecified; I10 Essential (primary) hypertension; Z85.828 Personal history of other malignant neoplasm of skin; Z79.82 Long term (current) use of aspirin; Z79.899 Other long term (current) drug therapy
CPT/HCPCS: 80048; 80061; 85027; 85347; 92928; 93005; 96413; 96415; 99152; 99153; J7030; J7040; Q9967; A4216; C1769; C1874; C1887; C1894; C9600; J1568

== ENCOUNTER → 2019-03-22 08:56 | Outpatient (CLI) | payer MEDICARE, OTHER, SELFPAY ==
[2019-02-22 11:23] VITALS: BMI 24.3
[2019-03-11 14:03] VITALS: BMI 24.3
[2019-03-21 09:51] VITALS: BMI 24.0
[2019-03-22 09:04] VITALS: BP 132/60; PULSE 80; RESP 16; TEMP 37.1; O2SAT 99; BMI 23.2
[2019-03-22] MEDS: Immune Globulin 20 gm Premixed Solution IV (09:20)
== END ==
PROVIDERS: Family Provider Family Medicine; PCP Family Medicine; Referring Provider Family Medicine; Visit Provider Family Medicine
DX: D83.9 Common variable immunodeficiency, unspecified (principal)
CPT/HCPCS: 96413; 96415; J1568

== ENCOUNTER → 2019-03-26 | Outpatient (CLI) | payer MEDICARE, OTHER, SELFPAY ==
[2019-03-11 14:03] VITALS: BMI 24.3
[2019-03-13 09:15] VITALS: BMI 24.3
[2019-03-22 09:04] VITALS: BMI 23.2
--- NOTE | 2019-03-26 13:05 | PCM.CR.HP2 ---
CR - History & Physical - General Arrival date:: 03/26/19 Arrival time:: 12:00 Date of Referral:: 03/11/19 Date of CR Evaluation:: 03/26/19 Referring Physician: DR. ALEXANDRIA FLYNN Primary Diagnosis: PCI, W/CORONARY STENT - History of Present Cardiac Event Onset Date: Enter Onset Date of cardiac illnesses in Comment field below Type of Symptoms:: CHEST PAINS OVER PAST TWO YEARS OFF/ON, HAD SERIES OF TESTING DONE OVER THE YEARS TO SEE THE CAUSE. FINALLY GOT TO HAVING THE HEART CATH AND STENTS PLACED. Interventions with present event:: PCI W/INTERVENTION CORONARY STENT PLACEMENT Were there any complications?: NONE; URINARY RETENTION AFTER THE FIRST STENT, AND HAD CATH FOR A PERIOD - Medications Home Medications: Ambulatory Orders Medication Instructions Recorded Guar Gum [Fiber] 2 gm PO DAILY 06/10/13 Multivitamins,Therapeutic 1 tab PO DAILY 06/10/13 [Multivitamin] Folic Acid 1 tab PO BID 12/24/13 albuterol sulfate HFA 90 2 puff INHALATION Q4H PRN #1 device 01/30/19 mcg/actuation aerosol inhaler aspirin 81 mg tablet,delayed 81 mg PO DAILY 03/04/19 release immune glob,gamma(IgG) 10 20 g .ROUTE .[id number] ea 03/04/19 gxfo-mrr-jemp-IgA 0 to 50 mcg/mL IV solution metoprolol succinate ER 50 mg 50 mg PO DAILY #60 tab 03/06/19 tablet,extended release 24 hr Tamsulosin HCl [Flomax] 0.4 mg PO DAILY #7 cap 03/12/19 clopidogrel 75 mg tablet 75 mg PO DAILY #90 tab 03/15/19 lisinopril 2.5 mg tablet 2.5 mg PO DAILY #90 tab 03/15/19 rosuvastatin 40 mg tablet 40 mg PO DAILY 03/15/19 - Allergies Allergies/Adverse Reactions: Allergies No Known Allergies Allergy (Verified 03/20/19 07:28) - Sleep Disorder Evaluation Hx of Sleep Apnea: No Do you snore loudly (louder than talking or can be heard through closed doors)?: No - MUCH BETTER THAN HE USED TO BE () Do you often feel tired/ fatigued/ sleepy during daytime?: No Has anyone observed you stop breathing during sleep?: Yes History of Hypertension (for STOP score): No STOP Results: Negative Advanced Directives - Advanced Directives Power of Heavy Equipment Sales Associate: Yes Living Will: Yes Advance Directives Information Provided: No Advance Directives on File: No DNR Order?:: No - MOLST See MOLST form: No Past Medical History - Past Medical Illness Medical History: Past Medical History (Last Updated 03/25/19 @ 18:16 by Agnes Ramos) Atherosclerosis of coronary artery of [place] heart without angina pectoris (Chronic) I25.10 YTG-MAG-Fygide RCA w/ 2.5 x 12 mm Elunir Stent and MILANA-Mid RCA w/ 3.0 x 33 mm Elunir Stent 03/11/19; PCI-MILANA- Mid LAD w/ 3.0 x 16 mm Synergy MR Stent 03/21/2019 Hyperlipidemia (Chronic) E78.5 Common variable immunodeficiency (Chronic) D83.[address] R93.89 Basal cell carcinoma of left ear C44.219 Benign prostate hyperplasia N40.0 Mass of upper lobe of right lung R91.8 Pneumonia J18.9 x 5 - Past Surgical History Surgical History: Past Surgical History (Last Updated 03/25/19 @ 18:16 by Agnes Ramos) History of coronary artery stent placement (Chronic) Onset Date: 03/11/19 Z95.5 [id number]-JWK-Znmozc RCA w/ 2.5 x 12 mm Elunir Stent and MILANA-Mid RCA w/ 3.0 x 33 mm Elunir Stent 03/11/19; PCI-MILANA- Mid LAD w/ 3.0 x 16 mm Synergy MR Stent 03/21/2019 History of bilateral cataract extraction Z98.41, Z98.42 History of herniorrhaphy Z98.890, Z87.19 - Family History Summary Family History: Family History (Last Reviewed 03/13/19 @ 09:16 by Nora Duffy) Mother Heart disease valve replacement Father Parkinson disease Social History - Smoking History Smoking Status: Never smoker Hx Tobacco Use: No Hx Smoking Exposure: No - Alcohol Use Alcohol Usage: Yes - 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 Hours worked per day:: 6 Returned to work on:: 03/25/19 - AFTER THE RECENT STENT/ [employer]STRU[employer] - Hobbies, Recreation, Social Activities Hobbies: Exercise - EXERCISE AT [employer]., Other - REBUILDING A STEAM LOCOMOTIVE; Recreational Activities: I am able to engage in most, but not all activities Social Environment - Status Marital Status: - Current Living Arrangements Living Environment:: Spouse - Children How many children do you have?: 2 Do any of your children live nearby?: Yes - [place] - Safety Do you feel safe in your surroundings?: Yes - Assistance Do you need any assistance at home?: NONE Review of Systems - Review of Systems Hints: Right click = Denies ([place]). Left click = Reports ([place]) Review of Present Symptoms: Reports: Fatigue, Appetite - Normal, Sleep - Normal. Denies: Shortness of Breath at Rest, Shortness of Breath with Exertion, Angina - HAS NOT PUSHED HIMSELF TO NORMAL LIMITS SINCE THE LAST STENT, SO NOT SURE IF HE HAS RESOLVED THE ISSUE WITH CHEST PAIN OR NOT., Dizziness/Lightheadedness, Appetite - Special Diet, Sexual Changes - Pain Is Patient Pain Free?: Yes Pain Location: none Pain Level: 0/10 Risk Factor Assessment - Chief Complaint Chief Complaint: PATIENT IS A 68 YR OLD MALE WHO PRESENTS TO CR TODAY FOLLOWING RECENT STENT PLACEMENTS OVER THE PAST FEW WEEKS. HE HAS BEEN EXPERIENCE CHEST PAIN FOR PERIOD OF TIME AND IS STILL NOT CONFIDENT IN THE FACT THE ISSUE OF THE CHEST PAIN HAS BEEN CORRECTED. - Vital Signs Temperature: 98.6 F Respiratory Rate: 12 Pulse Ox: 98 Blood Pressure: 106/56 Nailbeds:: PINK - Pulse Pulse Rate: 66 Pulse Rhythm: Regular - Hypertension How long have you been treated?: 2 WEEKS. Blood Pressure Sitting - Left Arm: 106/56 - Blood Cholesterol/Lipids Total Cholesterol (mg/dL) Goal = less than 200 mg/dL: 147 - 08/10/2018 HDL Cholesterol (mg/dL) Goal = less than 40 mg/dL: 28 LDL Cholesterol (mg/dL) Goal = less than 70 mg/dL: 97 Triglycerides (mg/dL) Goal = less than 150 mg/dL: 112 - Diabetes Nutrition Referral for Diabetes: No - Obesity Height: 5 ft 7 in Weight:: 155 lb Weight in Pounds: 155.0 lbs Weight Source: Stated by Patient Body Mass Index (BMI): 24.3 Nutritional Referral for Obesity: No - Physical Inactivity Physical Inactivity: None - Risk Stratification Risk Guidelines: Lowest Risk: Risk Factor for Smoking, Risk Factor for Dyslipidemia, Risk Factor for Diabetes, Risk Factor for Obesity, Risk Factor for Hypertension, Risk Factor for Depression, Moderate Risk: Risk Factor for Sedentary Lifestyle - PREVIOUSLY EXERCISED AT [employer] AND [employer]OGA CLASSES - For Smoking Smoking Risk Guidelines: Smoking Low Risk: None or quit greater than 6 months ago. Smoking Moderate Risk: Smoker or quit 6 months or less ago. Smoking High Risk: Smoker - For Dyslipidemia Dyslipidemia Risk Guidelines: Low Risk: Moderate Risk: High Risk: 15-25% fat 25.1-29% fat >/= 30% fat. <7% sat fat 7-9% sat fat >9% sat fat. <150 mg chol 150-299 mg chol >/= 300 mg chol. LDL <100 LDL 100-129 LDL >/= 130. Chol/HDL ratio <5.0 Chol/HDL ratio 5.0-6.0 Chol/HDL ratio >6.0. Triglycerides <100 Triglycerides 100-149 Triglycerides >/= 150 - For Diabetes Mellitus Diabetes Risk Guidelines: Diabetes Low Risk: HgA1c <6.5% and/or FBG <120. Diabetes Moderate Risk: HgA1c 6.6-7.9% and/or FBG 120-180. Diabetes High Risk: HgA1c >/= 8% and/or FBG >180 - For Obesity/Overweight Obesity/Overweight Risk Guidelines: Obesity Low Risk: BMI <25.0. Obesity Moderate Risk: BMI 25-29.9. Obesity High Risk: BMI >/= 30.0 - For Hypertension Hypertension Risk Guidelines: Hypertension Low Risk: Systolic <120 and Diastolic <80. Hypertension Moderate Risk: Systolic 120-139 and Diastolic 80-89. Hypertension High Risk: Systolic >/= 140 and Diastolic >/= 90 - For Sedentary Lifestyle Sedentary Lifestyle Risk Guidelines: Sedentary Lifestyle Low Risk: >/= 1,500 kcal/week. Sedentary Lifestyle Moderate Risk: 700-1,499 kcal/week. Sedentary Lifestyle High Risk: < 700 kcal/week - For Depression Depression Risk Guidelines: Depression Low Risk: Not clinically depressed. Depression Moderate Risk: Mildly depressed. Depression High Risk: Clinically depressed - Family History Family History: Family History (Last Reviewed 03/13/19 @ 09:16 by Nora Duffy) Mother Heart disease Father Parkinson disease Motivation - Motivation to Participate On a scale of 1 to 10, how prepared are you to commit to attending program?: 9 What do you see as barriers to successfully being able to complete the program?: INTERUPPTION OF PRE-PLANNED VACATION What do you see as the benefits of succesfully completing the program? In other words, what do you hope to get out of participating in the program?: MONIOTRED EXERCISE, STATUS REPORTS, BEING ABLE TO RESUME [facility]. Are there issues you are dealing with that will interfere with completing the program?: NONE Do you have a spouse or signficant other, family or friends who will help support you to complete the program?: YES.
[2019-03-26 13:27] VITALS: BP 106/56; PULSE 66; RESP 12; TEMP 37; O2SAT 98; BMI 24.3
--- NOTE | 2019-03-26 14:08 | CR.ITP_ITS ---
General Information - General Information Admitting Diagnosis: CABG X 3 VESSEL - Education/Goals Barriers to Learning: None Individual Counseling: Initial Assessment: Abnormal Cholesterol Levels, Overweight/Obesity Cardiac Rehabilitation Goals: 1. Maintain the individual as the primary focus of care. 2. To improve the patient's quality of life. 3. Identification of cardiac risk factors and provide cardiac risk factor management. 4. Enhance the psychosocial status of the patient. 5. Reconditioning enough to allow the patient to resume customary activities. 6. Control symptoms of cardiac disease Scale for measuring improvement of personal goals: Enter appropriate number in Comments. 2 = Unchanged. 3 = Slightly Better. 4 = Moderate Improvement. 5 = Met my Goal Personal Goals: Initial Assessment: Improve muscle strength and endurance, Improve diet and eating habits (eat healthier) Exercise - Initial Assessment - Visit Date of Eval: 03/26/19 Session #:: 0 - STARTING 03/27/2019 - Stages of Change Stages of Change:: Action - Physician Prescribed Exercise Modalities: Treadmill, Airdyne, NuStep Frequency (days/week): 3x/week for 12 weeks [36 sessions] Duration (Minutes):: 30-45 Intensity: 60-80% age predicted maximum heart rate reserve METs - Progression: 0.5-1.0 MET, RPE 11-14 WEEK: 2.5 Target Heart Rate:: 100-130 - Hypertension Do any of the following apply?: Medication Resting Blood Pressure:: 146/70 - Intervention Home Exercise/Activity Goal:: Moderate Exercise 30 min/day x 5 days/wk - Education Goals:: Warm-up, RPE ELOISA Scale, S/S, Safe Exercise, Self-Monitoring - Exercise Program Goals Exercise Program Goals: Aerobic Activity >30 min - CURRENTLY WALKING ABOUT 3-4 MILES DAILY Nutrition - Initial Assessment - Program Goals Nutrition Program Goals: LDL <70. Total Cholesterol <200. HDL >45. Triglycerides <150. HgbA1C <7%. BMI <25 - Visit Date of Assessment:: 03/26/19 - Stages of Change Stages of Change:: Action - Diabetes Diabetes:: Yes Fasting blood glucose:: 98 - NEW O[place]ET DM TYPE II Insulin: No Non-Insulin Dependent?: Yes - METFORMIN LAST hBa1C 6.1% - Weight Management Height: 5 ft 7 in Weight:: 155 lb Body Fat %:: 24.3 - Intervention Referral to dietitian:: No Referral to Diabetic Clinic:: Yes Will attend diet classes:: Yes - Education Gave educational materials for:: Signs & symptoms of hypoglycemia, Signs & symptoms of hyperglycemia, Relate diabetes to coronary artery disease, Healthy eating Tobacco - Initial Assessment - Program Goals Tobacco Program Goals: Complete smoking cessation. Attend education classes. Improve Knowledge Test score - Stage of Change Stages of Change:: Action - Learning Barriers Learning Barriers: Ready to Learn - Family Support Do you have family support?: Yes - Tobacco Use Tobacco Use: Non-smoker Do you use smokeless tobacco?: No - Intervention Smoking Cessation Referral:: No Education Schedule Given:: Yes - Education Attended class for:: Treating Heart Disease, How The Heart Works, What it means to have Heart Disease, How Coronary Artery Disease is Diagnosed, Heart Procedures, What Heart Medications Do, Risk Factors & Modifications, Living an Active Life, Nutrition, Emotions & Heart Disease, Stress Management & Relaxation, Sleep Disorders & Heart Disease Psychosocial - Initial Assess - Target Goals Target Goals: Assess presence or absence of depression. Using a valid screening tool, maximizes coping skills. Positive support system - Stages of Change Stages of Change:: Action - Psychosocial Test Tool Used:: HANDS Depression Questionnaire - Intervention PS - Interventions: Yes Attend Stress Management Classes, No Referral to Mental Health, No Referral to [facility] Case Management, No Referral to Physician, No Uses Stress Management Skills - Education Gave educational materials for:: Coping techniques, Signs & symptoms of depression, Stress management, Relaxation techniques - Patient/Program Goal Preventative Medication(s):: Aspirin, Clopidogrel, Beta leonie, Statin/lipid - Assistive Devices Assistive Devices:: None Fall Risk Assessed:: Yes Patient Health Questionnaire Initial Assessment 1. Little interest or pleasure in doing things: Not at all 2. Feeling down, depressed, or hopeless: Not at all 3. Trouble falling or staying asleep, or sleeping too much: Several days 4. Feeling tired or having little energy: Several days 5. Poor appetite or overeating: Not at all 6. Feeling bad about yourself -- or that you are a failure or have let yourself or your family down: Not at all 7. Trouble concentrating on things, such as reading the newspaper or watching television: Several days 8. Moving or speaking so slowly that other people could have noticed. Or the opposite - being so fidgety or restless that you have been moving around a lot more than usual: More than half the days 9. Thoughts that you would be better off , or of hurting yourself in some way: Not at all How difficult have these problems made it for you to do your work, take care of things at home, or get along with other people?: Somewhat difficult Total Score: 5 CHRISTIE-Q SV Test - Statements CAD is a disease of the arteries in the heart: False Examples of risk factors for heart disease: True Angina is chest pain or discomfort: True The benefits of resistance training include: True Eating more meat and dairy products: False Anti-platelet medications such as aspirin are important: True The only effective way to manage stress: False An exercise warm-up slowly increases heart rate: I Don't Know Prepared, processed foods usually have high sodium: True Depression is common after a heart attack: True The statin medications lower cholesterol: True To control blood pressure, lower the amount of sodium: True If someone gets chest discomfort during walking: False Transfats are partially hydrogenated vegetable oils: True Sleep apnea that is not treated increases the risk: False To control cholesterol, one should become a vegetarian: False Someone knows if he/she is exercising at the right level: True Diabetes cannot be prevented with exercise & health eating: False Stress is a large risk for heart attack: True A diet that can help lower blood pressure is rich in: True - Total Score Total Correct Responses: 19 Self-Efficacy Initial Assessment We would like to know how confident you are in doing certain activities. Please select your confidence level for:: Select your confidence level for the following using the scale 1-10 where 1 is not at all confident and 10 is totally confident. Your score is the average of all 6 responses. Fatigue: How confident are you that you can keep the fatigue caused by your disease from interfering with the things you want to do? Select Number: 10 Physical Discomfort or Pain: How confident are you that you can keep the physical discomfort or pain of your disease from interfering with the things you want to do? Select Number: 10 Emotional Distress: How confident are you that you can keep the emotional distress caused by your disease from interfering with the things you want to do? Select Number: 10 Other Symptoms or Health Problems: How confident are you that you can keep other symptoms or health problems from interfering with the things you want to do? Select Number: 10 Different Tasks and Activities: How confident are you that you can do the different tasks and activities needed to manage your health condition so as to reduce your need to see a doctor? Select Number: 9 Medication: How confident are you that you can do things other than just taking medication to reduce how much your illness affects your everyday life? Select Number: 9 Total Score:: 9 Nutrition Survey - Nutrition Survey Instructions Scoring Instructions: Scoring is as follows: Yes = 1 points. No = 0 point. Patient score that is >/=12 is considered to be at potential nutritional risk and could benefit from a referral to a registered dietitian. - Nutrition Survey Initial Have you lost >10 lbs over the past 2 months without trying?: No Are you following a special diet at home for diabetes, low fat, or low salt?: No Are you interested in meeting with a dietitian for help understanding your diet?: No Do you eat less than 3 meals a day?: No Do you eat fatty meats (ceron, sausage, ribs, etc), fried foods, desserts, large amounts of salad dressings, margarine, butter, or cheese most days?: No Do you have food allergies? [Enter types in comment field]: No Do you eat in restaurants more than 3 times a week?: No Do you season food with salt, seasoning salt, or garlic salt?: Yes Do you used canned, boxed, frozen meals, or soups, seasoning packets?: No Total Score:: 1
[2019-03-26 14:14] VITALS: BP 146/70
== END | disposition home or self-care (01) ==
LOC: CR 12:00
PROVIDERS: Family Provider Family Medicine; PCP Family Medicine; Referring Provider Internal Medicine Cardiovascular Disease; Visit Provider Internal Medicine Cardiovascular Disease
DX: Z95.5 Presence of coronary angioplasty implant and graft (principal)

== ENCOUNTER 2019-04-03 11:30 | Outpatient (RCR) | payer MEDICARE, OTHER, SELFPAY ==
[2019-03-11 14:03] VITALS: BMI 24.3
[2019-03-26 13:27] VITALS: BMI 24.3
== END 2019-04-03 23:59 ==
LOC: CR 11:30
PROVIDERS: Family Provider Family Medicine; PCP Family Medicine; Referring Provider Internal Medicine Cardiovascular Disease; Visit Provider Internal Medicine Cardiovascular Disease
DX: I25.10 Atherosclerotic heart disease of native coronary artery without angina pectoris (principal); Z95.5 Presence of coronary angioplasty implant and graft; E78.5 Hyperlipidemia, unspecified; D83.9 Common variable immunodeficiency, unspecified
CPT/HCPCS: 93798

== ENCOUNTER → 2019-04-19 | Outpatient (CLI) | payer MEDICARE, OTHER, SELFPAY ==
[2019-03-11 14:03] VITALS: BMI 24.3
[2019-04-03 13:40] VITALS: BMI 24.4
[2019-04-19 12:22] VITALS: BP 95/52; PULSE 61; RESP 16; TEMP 36.6; O2SAT 97; BMI 24.3
[2019-04-19] MEDS: Immune Globulin 20 gm Premixed Solution IV (12:41)
== END | disposition home or self-care (01) ==
LOC: MEDOUTP 12:16
PROVIDERS: Family Provider Family Medicine; PCP Family Medicine; Referring Provider Family Medicine; Visit Provider Family Medicine
DX: D83.9 Common variable immunodeficiency, unspecified (principal); I25.10 Atherosclerotic heart disease of native coronary artery without angina pectoris; E78.5 Hyperlipidemia, unspecified; Z95.5 Presence of coronary angioplasty implant and graft
CPT/HCPCS: 96365; 96366; 93798; A4216; J1568

== ENCOUNTER → 2019-04-22 | Outpatient (CLI) | payer MEDICARE, OTHER, SELFPAY ==
[2019-03-11 14:03] VITALS: BMI 24.3
[2019-03-13 09:15] VITALS: BMI 24.3
[2019-04-19 12:22] VITALS: BMI 24.3
--- NOTE | 2019-04-22 12:45 | CT_ITS ---
STUDY: CT CHEST WITHOUT CONTRAST REASON FOR EXAM: Male, [address] chest finding follow-up RADIATION DOSAGE (If Supplied By Facility): CTDIvol = ( 11.82 ) mGy, DLP = ( 448.93 ) mGycm TECHNIQUE: Transaxial imaging was performed without the administration of intravenous contrast material. Individualized dose optimization techniques were used for this CT. COMPARISON: 01/23/2019. FINDINGS: Stable irregular shaped parenchymal prominence along the posterior aspect of the right upper lobe, measuring up to about 1 x 6.0 X 2.2 CM in size, essentially unchanged since prior study. This may be due to parenchymal scarring along the posterior aspect of the right upper lobe. Stable extent of the chronic change is also noted along the superior segment of the right lower lobe. The rest of bilateral lungs are normal. No new focus of nodule. There is no demonstrated pleural abnormality. Normal heart and pericardium. There are calcifications of the coronary arteries. Normal mediastinum. Normal hilar regions. Normal unenhanced pulmonary arteries. Normal aorta arch and descending thoracic aorta. There are multi-level degenerative changes of the thoracic spine, stable since prior. Stable mild degree of splenomegaly. CT/Chest without Contrast IMPRESSION: Stable irregular shape likely parenchymal scarring along the posterior aspect of the right upper lobe, essentially unchanged since prior. Correlation with PET CT scan is helpful to exclude subtle process. Stable mild splenomegaly. No abnormally enlarged adenopathy in the thoracic region. Electronically Signed: Josue Ivory MD at 17:12 EDT Tel [phone], Service support ,
== END | disposition home or self-care (01) ==
LOC: CT 12:45
PROVIDERS: Family Provider Family Medicine; PCP Family Medicine; Referring Provider Internal Medicine Critical Care Medicine; Visit Provider Internal Medicine Critical Care Medicine
DX: R93.89 Abnormal findings on diagnostic imaging of other specified body structures (principal); I25.10 Atherosclerotic heart disease of native coronary artery without angina pectoris; E78.5 Hyperlipidemia, unspecified; D83.9 Common variable immunodeficiency, unspecified; Z95.5 Presence of coronary angioplasty implant and graft
CPT/HCPCS: 71250; 93798

== ENCOUNTER 2019-05-03 10:15 | Outpatient (RCR) | payer MEDICARE, OTHER, SELFPAY ==
[2019-03-11 14:03] VITALS: BMI 24.3
[2019-04-03 13:40] VITALS: BMI 24.4
--- NOTE | 2019-04-24 12:35 | PCM.CR.ITP ---
Exercise - 30-day Assessment - Visit Date of Eval: 04/24/19 Session #:: 13 - Stages of Change Stages of Change:: Action - Physician Prescribed Exercise Modalities: Treadmill, Rower, Airdyne, NuStep Frequency (days/week): 3 Duration (Minutes):: 30-45 Intensity: 60-80% age predicted maximum heart rate reserve METs - Progression: 0.5-1.0 MET, RPE 11-14 WEEK: 5.0 up from 3.5 Target Heart Rate:: 100-130 with max HR 103 - Hypertension Resting Blood Pressure:: 118/56 Peak Exercise Blood Pressure:: 130/58 Medication Changes:: No - Intervention Home Exercise/Activity Goal:: Moderate Exercise 30 min/day x 5 days/wk - Education Goals:: Warm-up, RPE ELOISA Scale, S/S, Safe Exercise, Self-Monitoring - Exercise Program Goals Exercise Program Goals: Aerobic Activity >30 min Nutrition - 30-Day Assessment - Program Goals Nutrition Program Goals: LDL <70. Total Cholesterol <200. HDL >45. Triglycerides <150. HgbA1C <7%. BMI <25 - Visit Date of Eval: 04/24/19 - Stages of Change Stages of Change:: Action - Lipids Has the patient seen the dietitian?: No - Diabetes Diabetes:: No Insulin: No Non-Insulin Dependent?: No - Weight Management Weight:: 156 lb - Intervention Referral to dietitian:: No Referral to Diabetic Clinic:: No Will attend diet classes:: No - Education Attended class for:: Healthy eating Tobacco - Initial Assessment - Program Goals Tobacco Program Goals: Complete smoking cessation. Attend education classes. Improve Knowledge Test score - Learning Barriers Learning Barriers: Ready to Learn Tobacco - 30-Day Assessment - Program Goals Tobacco Program Goals: Complete smoking cessation. Attend education classes. Improve Knowledge Test score - Stage of Change Stages of Change:: Action - Learning Barriers Learning Barriers: Participates in education - Family Support Do you have family support?: Yes - Tobacco Use Tobacco Use: Non-smoker Do you use smokeless tobacco?: No - Intervention Smoking Cessation Referral:: No Individual Education/Counseling:: No Education Schedule Given:: Yes - Education Attended class for:: Treating Heart Disease, How The Heart Works, What it means to have Heart Disease, How Coronary Artery Disease is Diagnosed, Heart Procedures, What Heart Medications Do, Risk Factors & Modifications, Living an Active Life, Nutrition, Emotions & Heart Disease, Stress Management & Relaxation, Sleep Disorders & Heart Disease Psychosocial - Initial Assess - Target Goals Target Goals: Assess presence or absence of depression. Using a valid screening tool, maximizes coping skills. Positive support system - Psychosocial Test Tool Used:: HANDS Depression Questionnaire - Assistive Devices Fall Risk Assessed:: Yes Psychosocial - 30-Day Assess - Target Goals Target Goals: Assess presence or absence of depression. Using a valid screening tool, maximizes coping skills. Positive support system - Stages of Change Stages of Change:: Action - Psychosocial Test Tool Used:: HANDS Depression Questionnaire - Intervention PS - Interventions: Yes Attend Stress Management Classes, Yes Uses Stress Management Skills, No Referral to Mental Health, No Referral to [facility] Case Management, No Referral to Physician - Education Attended classes for:: Coping techniques, Signs & symptoms of depression, Stress management, Relaxation techniques - Patient/Program Goal Preventative Medication(s):: Aspirin, RAVI inhibitor, Clopidogrel, Beta leonie, Statin/lipid - Assistive Devices Assistive Devices:: None Fall Risk Assessed:: Yes Patient Health Questionnaire 30-Day Re-eval Assessment 1. Little interest or pleasure in doing things: Not at all 2. Feeling down, depressed, or hopeless: Not at all 3. Trouble falling or staying asleep, or sleeping too much: Several days 4. Feeling tired or having little energy: Several days 5. Poor appetite or overeating: Not at all 6. Feeling bad about yourself -- or that you are a failure or have let yourself or your family down: Not at all 7. Trouble concentrating on things, such as reading the newspaper or watching television: Several days 8. Moving or speaking so slowly that other people could have noticed. Or the opposite - being so fidgety or restless that you have been moving around a lot more than usual: Several days 9. Thoughts that you would be better off , or of hurting yourself in some way: Not at all How difficult have these problems made it for you to do your work, take care of things at home, or get along with other people?: Somewhat difficult Total Score: 4 Self-Efficacy 30-Day Re-eval Assessment We would like to know how confident you are in doing certain activities. Please select your confidence level for:: Select your confidence level for the following using the scale 1-10 where 1 is not at all confident and 10 is totally confident. Your score is the average of all 6 responses. Fatigue: How confident are you that you can keep the fatigue caused by your disease from interfering with the things you want to do? Select Number: 10 Physical Discomfort or Pain: How confident are you that you can keep the physical discomfort or pain of your disease from interfering with the things you want to do? Select Number: 10 Emotional Distress: How confident are you that you can keep the emotional distress caused by your disease from interfering with the things you want to do? Select Number: 10 Other Symptoms or Health Problems: How confident are you that you can keep other symptoms or health problems from interfering with the things you want to do? Select Number: 10 Different Tasks and Activities: How confident are you that you can do the different tasks and activities needed to manage your health condition so as to reduce your need to see a doctor? Select Number: 10 Medication: How confident are you that you can do things other than just taking medication to reduce how much your illness affects your everyday life? Select Number: 9 Total Score:: 9
[2019-04-24 12:38] VITALS: BP 118/56; BP 130/58
== END 2019-05-04 23:59 ==
LOC: CR 10:15
PROVIDERS: Family Provider Family Medicine; PCP Family Medicine; Referring Provider Internal Medicine Cardiovascular Disease; Visit Provider Internal Medicine Cardiovascular Disease
DX: I25.10 Atherosclerotic heart disease of native coronary artery without angina pectoris (principal); Z95.5 Presence of coronary angioplasty implant and graft; E78.5 Hyperlipidemia, unspecified; D83.9 Common variable immunodeficiency, unspecified
CPT/HCPCS: 93798

== ENCOUNTER → 2019-05-17 11:29 | Outpatient (CLI) | payer MEDICARE, OTHER, SELFPAY ==
[2019-03-11 14:03] VITALS: BMI 24.3
[2019-04-19 12:22] VITALS: BMI 24.3
[2019-04-29 12:56] VITALS: BMI 24.3
[2019-05-17 11:49] VITALS: BP 129/55; PULSE 85; RESP 16; TEMP 37.8; O2SAT 97; BMI 24.3
[2019-05-17] MEDS: Immune Globulin 20 gm Premixed Solution 66 BAG IV (11:58)
[2019-05-17 12:19] LABS: PSA,Total - Annual Screen 3.15 ng/mL (0.00-4.00)
== END ==
PROVIDERS: Nurse Practitioner Adult Health; Family Provider Family Medicine; PCP Family Medicine; Referring Provider Family Medicine; Visit Provider Family Medicine
DX: D83.9 Common variable immunodeficiency, unspecified (principal); I25.10 Atherosclerotic heart disease of native coronary artery without angina pectoris; Z12.5 Encounter for screening for malignant neoplasm of prostate; Z95.5 Presence of coronary angioplasty implant and graft
CPT/HCPCS: 96365; 96366; 84153; 93798; J7050; A4216; G0103; J1568

== ENCOUNTER → 2019-05-20 | Outpatient (CLI) | payer MEDICARE, OTHER, SELFPAY ==
[2019-03-11 14:03] VITALS: BMI 24.3
[2019-05-17 11:49] VITALS: BMI 24.3
--- NOTE | 2019-05-20 14:27 | RAD_ITS ---
STUDY: X-RAY - LUMBAR SPINE REASON FOR EXAM: Male, 69 years old. Pain TECHNIQUE: 5 view(s) of the lumbar spine were obtained. COMPARISON: None FINDINGS: Normal lumbar lordosis. There is no substantial scoliosis. There is a normal alignment of the vertebrae. There is multilevel endplate spondylosis of the lumbar vertebrae. Normal disc space heights for narrowing at L5/S1. There is no demonstrated fracture. There is atherosclerotic calcification of the abdominal aorta without a demonstrated aneurysm. RAD/L/S Spine Min 4 Views IMPRESSION: Degenerative changes at L5/S1, otherwise unremarkable lumbar spine Electronically Signed: Kash Briceno MD at 17:52 EDT , Service support ,
== END | disposition home or self-care (01) ==
LOC: MTRAD 14:24
PROVIDERS: Family Provider Family Medicine; PCP Family Medicine; Referring Provider Family Medicine; Visit Provider Family Medicine
DX: M54.5 Low back pain (principal)
CPT/HCPCS: 36415; 72110; 80053; 85025; 85652; 86140

== ENCOUNTER → 2019-05-20 | Outpatient (CLI) | payer MEDICARE, OTHER, SELFPAY ==
[2019-03-11 14:03] VITALS: BMI 24.3
[2019-05-17 11:49] VITALS: BMI 24.3
[2019-05-20 15:20] LABS: Absolute Lymphocyte Count 0.85 X10^3/uL (0.83-4.51); Absolute Neutrophil Count 4.4 X10^3/uL (2.0-7.7); Basophil# 0.01 X10^3/uL; Basophil% 0.2 % (0-1); Hemoglobin 12.5 g/dL (13.0-16.5); Lymphocyte # 0.85 X10^3/ul (4.0); Mean Corp Hgb Conc 32.9 g/dL (32-36); Mean Corpuscular Hgb 30.3 pg (27.0-32.0); Mean Platelet Vol. 10.9 fl (6.2-12.0); Monocyte# 0.77 X10^3/uL; Monocyte% 12.7 % (0-10); NRBC Flagged by Analyzer 0 % (0-5); Neutrophil # 4.43 X10^3/uL (2.7-7.7); Neutrophil % 72.8 % (47-70); Platelet Count 147 K/mm3 (150-450); RBC Distribution Width CV 12.4 % (11.6-14.6); Red Blood Count 4.13 M/mm3 (4.6-6.2); White Blood Count 6.1 K/mm3 (4.4-11.0)
[2019-05-20 15:26] LABS: Erythrocyte Sedimentation Rate 21 mm/hr (0-20)
[2019-05-20 16:03] LABS: ALB/GLOB Ratio 0.8 RATIO (0.9-2.4); AST(SGOT) 24 U/L (15-37); Alanine Aminotransfer ALT/SGPT 46 U/L (16-61); Albumin, Serum 3.2 g/dL (3.2-5.0); Alkaline Phosphatase 68 U/L (45-117); Anion Gap 5 (5-15); BUN 15 mg/dL (7-18); Calcium,Total 8.7 mg/dL (8.5-10.1); Chloride 102 mmol/L (98-107); Creatinine, Serum 0.94 mg/dL (0.70-1.30); EST Glomerular Filtration Rate 85 mL/min (>60); Est Glom Filt Rate - Afr Amer 103 mL/min (>60); Globulin 3.9 g/dL (2.2-4.2); Glucose 131 mg/dL (74-106); Potassium 3.8 mmol/L (3.5-5.1); Protein, Total 7.1 g/dL (6.4-8.2); Sodium Level 135 mmol/L (136-145)
== END | disposition home or self-care (01) ==
LOC: MFPLAB 14:15
PROVIDERS: Family Provider Family Medicine; PCP Family Medicine; Visit Provider Family Medicine
DX: M54.5 Low back pain (principal)
CPT/HCPCS: 36415; 80053; 85025; 85652; 86140

== ENCOUNTER → 2019-05-21 | Outpatient (CLI) | payer MEDICARE, OTHER, SELFPAY ==
[2019-03-11 14:03] VITALS: BMI 24.3
[2019-05-17 11:49] VITALS: BMI 24.3
--- NOTE | 2019-05-21 13:28 | RAD_ITS ---
STUDY: X-RAY CHEST REASON FOR EXAM: Male, 69 years old. Cough x1 week TECHNIQUE: PA and lateral views of the chest. COMPARISON: None. FINDINGS: The lungs are clear and expanded. There is no demonstrated pleural abnormality. Normal size heart. Normal mediastinum and prakash. Normal visualized pulmonary arteries. Normal visualized aortic arch and descending thoracic aorta. There are diffuse degenerative changes of the visualized thoracic spine. Normal visualized ribs, clavicles, and shoulders. There is no demonstrated abnormality of the visualized soft tissue structures of the upper abdomen. RAD/Chest PA and Lateral IMPRESSION: No acute pulmonary process Electronically Signed: Kash Briceno MD at 13:47 EDT , Service support ,
== END | disposition home or self-care (01) ==
PROVIDERS: Family Provider Family Medicine; PCP Family Medicine; Referring Provider Family Medicine; Visit Provider Family Medicine
DX: R05 Cough (principal)
CPT/HCPCS: 71046

== ENCOUNTER 2019-06-03 10:15 | Outpatient (RCR) | payer MEDICARE, OTHER, SELFPAY ==
[2019-03-11 14:03] VITALS: BMI 24.3
[2019-04-29 12:56] VITALS: BMI 24.3
[2019-05-05 01:03] VITALS: BP 118/56; BP 130/58
--- NOTE | 2019-05-24 08:18 | PCM.CR.ITP ---
General Information - General Information Admitting Diagnosis: PCI with coronary stent - Education/Goals Barriers to Learning: None Cardiac Rehabilitation Goals: 1. Maintain the individual as the primary focus of care. 2. To improve the patient's quality of life. 3. Identification of cardiac risk factors and provide cardiac risk factor management. 4. Enhance the psychosocial status of the patient. 5. Reconditioning enough to allow the patient to resume customary activities. 6. Control symptoms of cardiac disease Scale for measuring improvement of personal goals: Enter appropriate number in Comments. 2 = Unchanged. 3 = Slightly Better. 4 = Moderate Improvement. 5 = Met my Goal Exercise - 60-Day Assessment - Visit Date of Eval: 05/24/19 Session #:: 22 - Stages of Change Stages of Change:: Action - Physician Prescribed Exercise Modalities: Treadmill, Biodyne, NuStep Frequency (days/week): 3 Duration (Minutes):: 30-45 Intensity: 60-80% age predicted maximum heart rate reserve METs - Progression: 0.5-1.0 MET, RPE 11-14 WEEK: 5.5 Target Heart Rate:: 100-130 Max HR 114 - Hypertension Resting Blood Pressure:: 102/40 Peak Exercise Blood Pressure:: 130/50 Medication Changes:: Yes - Intervention Home Exercise/Activity Goal:: Sitting Time <3 hrs/day - Education Goals:: Warm-up, RPE ELOISA Scale, S/S, Safe Exercise, Self-Monitoring - Exercise Program Goals Exercise Program Goals: Aerobic Activity >30 min, B/P <130/80 Nutrition - 60-Day Assessment - Program Goals Nutrition Program Goals: LDL <70. Total Cholesterol <200. HDL >45. Triglycerides <150. HgbA1C <7%. BMI <25 - Visit Date of Eval: 05/24/19 - Stages of Change Stages of Change:: Action - Lipids Has the patient seen the dietitian?: No - Weight Management Weight:: 69.4 kg - Intervention Referral to dietitian:: No Referral to Diabetic Clinic:: No Will attend diet classes:: Yes - Education Attended class for:: Signs & symptoms of hypoglycemia, Signs & symptoms of hyperglycemia, Relate diabetes to coronary artery disease, Healthy eating Tobacco - Initial Assessment - Program Goals Tobacco Program Goals: Complete smoking cessation. Attend education classes. Improve Knowledge Test score - Learning Barriers Learning Barriers: Ready to Learn Tobacco - 60-Day Assessment - Program Goals Tobacco Program Goals: Complete smoking cessation. Attend education classes. Improve Knowledge Test score - Stage of Change Stages of Change:: Action - Learning Barriers Learning Barriers: Participates in education - Family Support Do you have family support?: Yes - Tobacco Use Tobacco Use: Non-smoker Do you use smokeless tobacco?: No - Intervention Smoking Cessation Referral:: No Individual Education/Counseling:: No Education Schedule Given:: Yes - Education Attended class for:: Treating Heart Disease, How The Heart Works, What it means to have Heart Disease, How Coronary Artery Disease is Diagnosed, Heart Procedures, What Heart Medications Do, Risk Factors & Modifications, Living an Active Life, Nutrition, Emotions & Heart Disease, Stress Management & Relaxation, Sleep Disorders & Heart Disease Psychosocial - Initial Assess - Target Goals Target Goals: Assess presence or absence of depression. Using a valid screening tool, maximizes coping skills. Positive support system - Psychosocial Test Tool Used:: HANDS Depression Questionnaire - Assistive Devices Fall Risk Assessed:: Yes Psychosocial - 60-Day Assess - Target Goals Target Goals: Assess presence or absence of depression. Using a valid screening tool, maximizes coping skills. Positive support system - Stages of Change Stages of Change:: Action - Psychosocial Test Tool Used:: HANDS Depression Questionnaire - Intervention PS - Interventions: Yes Attend Stress Management Classes, Yes Uses Stress Management Skills, No Referral to Mental Health, No Referral to [facility] Case Management, No Referral to Physician - Education Attended classes for:: Coping techniques, Signs & symptoms of depression, Stress management, Relaxation techniques - Assistive Devices Assistive Devices:: None Fall Risk Assessed:: Yes Patient Health Questionnaire 60-Day Re-eval Assessment 1. Little interest or pleasure in doing things: Not at all 2. Feeling down, depressed, or hopeless: Not at all 3. Trouble falling or staying asleep, or sleeping too much: Several days 4. Feeling tired or having little energy: Several days 5. Poor appetite or overeating: Not at all 6. Feeling bad about yourself -- or that you are a failure or have let yourself or your family down: Not at all 7. Trouble concentrating on things, such as reading the newspaper or watching television: Several days 8. Moving or speaking so slowly that other people could have noticed. Or the opposite - being so fidgety or restless that you have been moving around a lot more than usual: Several days 9. Thoughts that you would be better off , or of hurting yourself in some way: Not at all How difficult have these problems made it for you to do your work, take care of things at home, or get along with other people?: Somewhat difficult Total Score: 4 Self-Efficacy 60-Day Re-eval Assessment We would like to know how confident you are in doing certain activities. Please select your confidence level for:: Select your confidence level for the following using the scale 1-10 where 1 is not at all confident and 10 is totally confident. Your score is the average of all 6 responses. Fatigue: How confident are you that you can keep the fatigue caused by your disease from interfering with the things you want to do? Select Number: 10 Physical Discomfort or Pain: How confident are you that you can keep the physical discomfort or pain of your disease from interfering with the things you want to do? Select Number: 10 Emotional Distress: How confident are you that you can keep the emotional distress caused by your disease from interfering with the things you want to do? Select Number: 10 Other Symptoms or Health Problems: How confident are you that you can keep other symptoms or health problems from interfering with the things you want to do? Select Number: 10 Different Tasks and Activities: How confident are you that you can do the different tasks and activities needed to manage your health condition so as to reduce your need to see a doctor? Select Number: 10 Medication: How confident are you that you can do things other than just taking medication to reduce how much your illness affects your everyday life? Select Number: 9 Total Score:: 9
[2019-05-24 08:25] VITALS: BP 102/40; BP 130/50
== END 2019-06-03 23:59 ==
LOC: CR 10:15
PROVIDERS: Family Provider Family Medicine; PCP Family Medicine; Referring Provider Internal Medicine Cardiovascular Disease; Visit Provider Internal Medicine Cardiovascular Disease
DX: I25.10 Atherosclerotic heart disease of native coronary artery without angina pectoris (principal); Z95.5 Presence of coronary angioplasty implant and graft; E78.5 Hyperlipidemia, unspecified; D83.9 Common variable immunodeficiency, unspecified
CPT/HCPCS: 93798

== ENCOUNTER → 2019-06-10 | Outpatient (CLI) | payer MEDICARE, OTHER, SELFPAY ==
[2019-03-11 14:03] VITALS: BMI 24.3
[2019-05-17 11:49] VITALS: BMI 24.3
--- NOTE | 2019-06-10 09:21 | RAD_ITS ---
EXAM DESCRIPTION: PA and lateral chest CLINICAL HISTORY: 69 years Male, cough COMPARISON: Previous chest obtained on 05/21/2019 The thorax is intact. . The heart and mediastinum appear to be within normal limits. The lungs appear to be well aerated without evidence of pneumonic consolidation or pleural effusion. RAD/Chest PA and Lateral IMPRESSION: Normal chest. Electronically Signed: Dylan Mei, at 13:29 EDT Tel , Service support ,
== END | disposition home or self-care (01) ==
LOC: MTRAD 09:18
PROVIDERS: Family Provider Family Medicine; PCP Family Medicine; Referring Provider Family Medicine; Visit Provider Family Medicine
DX: R05 Cough (principal); I25.10 Atherosclerotic heart disease of native coronary artery without angina pectoris; Z95.5 Presence of coronary angioplasty implant and graft
CPT/HCPCS: 71046; 93798

== ENCOUNTER → 2019-06-14 | Outpatient (CLI) | payer MEDICARE, OTHER, SELFPAY ==
[2019-03-11 14:03] VITALS: BMI 24.3
[2019-05-17 11:49] VITALS: BMI 24.3
[2019-06-14 11:08] VITALS: BP 125/60; PULSE 85; RESP 16; TEMP 36.6; O2SAT 99; BMI 24.8
[2019-06-14] MEDS: Immune Globulin 20 gm Premixed Solution 66 BAG IV (11:12)
== END | disposition home or self-care (01) ==
LOC: MEDOUTP 10:56
PROVIDERS: Family Provider Family Medicine; PCP Family Medicine; Referring Provider Family Medicine; Visit Provider Family Medicine
DX: D83.9 Common variable immunodeficiency, unspecified (principal)
CPT/HCPCS: 96365; 96366; A4216; J1568

== ENCOUNTER → 2019-06-15 | Outpatient (CLI) | payer MEDICARE, OTHER, SELFPAY ==
[2019-03-11 14:03] VITALS: BMI 24.3
[2019-05-17 11:49] VITALS: BMI 24.3
--- NOTE | 2019-06-15 06:18 | CT_ITS ---
STUDY: CT LUMBAR SPINE WITHOUT CONTRAST REASON FOR EXAM: Male, 69 years old. Back pain RADIATION DOSAGE (If Supplied By Facility): CTDIvol = ( 21.06 ) mGy, DLP = ( 696.05 ) mGycm TECHNIQUE: CT of the lumbar spine was performed without contrast. Sagittal and coronal images were reconstructed. Individualized dose optimization techniques were used for this CT. COMPARISON: 20 May 2019 point FINDINGS: Lumbar spine is intact and aligned. Mineralization is decreased. There is subchondral degenerative band like sclerosis at the L5-S1 superimposed on disc degeneration. Paraspinous soft tissues and SI joints are normal. There are multilevel age-related degenerative changes without thecal sac compression. There is bilateral L5-S1 lateral recess and moderate to severe foraminal stenosis. There is mild bilateral L4-L5 foraminal stenosis. Spinal canal is patent. CT/Spine Lumbar without Contrast IMPRESSION: 1. Osteoporosis. 2. Patent thecal sac. 3. Spondylosis with bilateral L5-S1 foraminal stenosis. Electronically Signed: Gali Harris, at 16:33 EDT Tel , Service support ,
--- NOTE | 2019-06-15 06:18 | CT_ITS ---
STUDY: CT BRAIN WITHOUT CONTRAST REASON FOR EXAM: Male, 69 years old. Parkinsonian features RADIATION DOSAGE (If Supplied By Facility): CTDIvol = ( 44.99 ) mGy, DLP = ( 829.85 ) mGycm TECHNIQUE: Transaxial CT imaging of the brain was performed without administration of intravenous contrast material. Individualized dose optimization techniques were used for this CT. COMPARISON: No relevant priors. FINDINGS: Normal soft tissue structures. Normal calvarium. There is mild cerebral atrophy with widening of the extra-axial spaces and ventricular dilatation. There are areas of decreased attenuation within the white matter tracts of the supratentorial brain, consistent with microvascular disease changes. There is a small focus of low attenuation within the right-sided caudate compatible with old lacunar infarct. Normal brainstem. There is mild cerebellar atrophy. There is no intracranial hemorrhage. There are no findings of an acute ischemic infarction. There is a tortuous appearance of the vertebral arteries right greater than left. There is minimal calcification of the cavernous carotid arteries. There is left maxillary, sphenoid mucoperiosteal inflammatory disease of the paranasal sinuses consistent with mild chronic sinusitis. CT/Brain/Head without Contrast IMPRESSION: Atrophy. No evidence of acute hemorrhage infarct or edema. Electronically Signed: Leticia Gilmore MD at 16:15 EDT Tel , Service support ,
== END | disposition home or self-care (01) ==
LOC: CT 06-18 09:51
PROVIDERS: Family Provider Family Medicine; PCP Family Medicine; Referring Provider Family Medicine; Visit Provider Family Medicine
DX: M54.5 Low back pain (principal); R25.9 Unspecified abnormal involuntary movements
CPT/HCPCS: 70450; 72131

== ENCOUNTER 2019-06-21 10:15 | Outpatient (RCR) | payer MEDICARE, OTHER, SELFPAY ==
[2019-03-11 14:03] VITALS: BMI 24.3
[2019-05-17 11:49] VITALS: BMI 24.3
[2019-06-04 00:56] VITALS: BP 102/40; BP 130/50
[2019-06-14 11:08] VITALS: BMI 24.8
--- NOTE | 2019-06-21 09:24 | CR.ITP_ITS ---
Exercise - Final/Discharge - Visit Date of Eval: 06/21/19 Session #:: 34 - Stages of Change Stages of Change:: Action - Physician Prescribed Exercise Modalities: Treadmill, Biodyne, NuStep Frequency (days/week): 3 Duration (Minutes):: 30-45 Intensity: 60-80% age predicted maximum heart rate reserve METs - Progression: 0.5-1.0 MET, RPE 11-14 WEEK: 6.5 incease from initial 2.5 METs Target Heart Rate:: 100-130 w/max HR 107 - Hypertension Do any of the following apply?: Yes, Medication Resting Blood Pressure:: 96/42 Peak Exercise Blood Pressure:: 112/44 - Intervention Home Exercise/Activity Goal:: Moderate Exercise 30 min/day x 5 days/wk - Education Goal Progress: Goal Met - Exercise Program Goals Exercise Program Goals: Aerobic Activity >30 min Nutrition - Final Assessment - Program Goals Nutrition Program Goals: LDL <70. Total Cholesterol <200. HDL >45. Triglycerides <150. HgbA1C <7%. BMI <25 - Visit Date of Eval: 06/21/19 - Stages of Change Stages of Change:: Action - Diabetes Diabetes:: No Insulin: No Non-Insulin Dependent?: No - Weight Management Height: 5 ft 7 in Weight:: 152 lb - stable - Intervention Referral to dietitian:: No Referral to Diabetic Clinic:: No Will attend diet classes:: Yes - Education Education Goal Reached?: Yes Tobacco - Initial Assessment - Program Goals Tobacco Program Goals: Complete smoking cessation. Attend education classes. Improve Knowledge Test score - Learning Barriers Learning Barriers: Ready to Learn Tobacco - Final Assessment - Program Goals Tobacco Program Goals: Complete smoking cessation. Attend education classes. Improve Knowledge Test score - Stage of Change Stages of Change:: Action - Family Support Do you have family support?: Yes - Tobacco Use Tobacco Use: Non-smoker Do you use smokeless tobacco?: No - Intervention Smoking Cessation Referral:: No Individual Education/Counseling:: No Education Schedule Given:: Yes - Education Education Goal Reached?: Yes Psychosocial - Initial Assess - Target Goals Target Goals: Assess presence or absence of depression. Using a valid screening tool, maximizes coping skills. Positive support system - Psychosocial Test Tool Used:: HANDS Depression Questionnaire - Assistive Devices Fall Risk Assessed:: Yes Psychosocial - Final Assessmen - Target Goals Target Goals: Assess presence or absence of depression. Using a valid screening tool, maximizes coping skills. Positive support system - Stages of Change Stages of Change:: Action - Psychosocial Test Tool Used:: HANDS Depression Questionnaire - Intervention PS - Interventions: Yes Attend Stress Management Classes, Yes Uses Stress Management Skills, No Referral to Mental Health, No Referral to [facility] Case Management, No Referral to Physician - Education Education Goal Reached?: Yes - Patient/Program Goal Preventative Medication(s):: Aspirin, RAVI inhibitor, Clopidogrel, Beta leonie - Patient compliant with medications, Statin/lipid - Assistive Devices Assistive Devices:: None Fall Risk Assessed:: Yes Patient Health Questionnaire Discharge Assessment 1. Little interest or pleasure in doing things: Not at all 2. Feeling down, depressed, or hopeless: Not at all 3. Trouble falling or staying asleep, or sleeping too much: Not at all 4. Feeling tired or having little energy: Not at all 5. Poor appetite or overeating: Not at all 6. Feeling bad about yourself -- or that you are a failure or have let yourself or your family down: Not at all 7. Trouble concentrating on things, such as reading the newspaper or watching television: Not at all 8. Moving or speaking so slowly that other people could have noticed. Or the opposite - being so fidgety or restless that you have been moving around a lot more than usual: Not at all 9. Thoughts that you would be better off , or of hurting yourself in some way: Not at all Total Score: 0 CHRISTIE-Q SV Test - Statements CAD is a disease of the arteries in the heart: False Examples of risk factors for heart disease: True Angina is chest pain or discomfort: True The benefits of resistance training include: True Eating more meat and dairy products: False Anti-platelet medications such as aspirin are important: True The only effective way to manage stress: False An exercise warm-up slowly increases heart rate: True Prepared, processed foods usually have high sodium: True Depression is common after a heart attack: True The statin medications lower cholesterol: True To control blood pressure, lower the amount of sodium: True If someone gets chest discomfort during walking: False Transfats are partially hydrogenated vegetable oils: True Sleep apnea that is not treated increases the risk: False To control cholesterol, one should become a vegetarian: False Someone knows if he/she is exercising at the right level: True Diabetes cannot be prevented with exercise & health eating: False Stress is a large risk for heart attack: True A diet that can help lower blood pressure is rich in: True - Total Score Total Correct Responses: 20 Self-Efficacy Discharge Assessment We would like to know how confident you are in doing certain activities. Please select your confidence level for:: Select your confidence level for the following using the scale 1-10 where 1 is not at all confident and 10 is totally confident. Your score is the average of all 6 responses. Fatigue: How confident are you that you can keep the fatigue caused by your disease from interfering with the things you want to do? Select Number: 10 Physical Discomfort or Pain: How confident are you that you can keep the physical discomfort or pain of your disease from interfering with the things you want to do? Select Number: 10 Emotional Distress: How confident are you that you can keep the emotional distress caused by your disease from interfering with the things you want to do? Select Number: 10 Other Symptoms or Health Problems: How confident are you that you can keep other symptoms or health problems from interfering with the things you want to do? Select Number: 10 Different Tasks and Activities: How confident are you that you can do the different tasks and activities needed to manage your health condition so as to reduce your need to see a doctor? Select Number: 10 Medication: How confident are you that you can do things other than just taking medication to reduce how much your illness affects your everyday life? Select Number: 10 Total Score:: 10 Nutrition Survey - Nutrition Survey Instructions Scoring Instructions: Scoring is as follows: Yes = 1 points. No = 0 point. Patient score that is >/=12 is considered to be at potential nutritional risk and could benefit from a referral to a registered dietitian. - Nutrition Survey Discharge Have you lost >10 lbs over the past 2 months without trying?: No Are you following a special diet at home for diabetes, low fat, or low salt?: Yes Are you interested in meeting with a dietitian for help understanding your diet?: No Do you eat less than 3 meals a day?: No Do you eat fatty meats (ceron, sausage, ribs, etc), fried foods, desserts, large amounts of salad dressings, margarine, butter, or cheese most days?: No Do you have food allergies? [Enter types in comment field]: No Do you eat in restaurants more than 3 times a week?: No Do you season food with salt, seasoning salt, or garlic salt?: No Do you used canned, boxed, frozen meals, or soups, seasoning packets?: No Total Score:: 1
[2019-06-21 09:28] VITALS: BP 112/44; BP 96/42
== END 2019-07-04 23:59 ==
LOC: CR 10:15
PROVIDERS: Family Provider Family Medicine; PCP Family Medicine; Referring Provider Internal Medicine Cardiovascular Disease; Visit Provider Internal Medicine Cardiovascular Disease
DX: I25.10 Atherosclerotic heart disease of native coronary artery without angina pectoris (principal); Z95.5 Presence of coronary angioplasty implant and graft; E78.5 Hyperlipidemia, unspecified; D83.9 Common variable immunodeficiency, unspecified
CPT/HCPCS: 93798

== ENCOUNTER → 2019-07-12 | Outpatient (CLI) | payer MEDICARE, OTHER, SELFPAY ==
[2019-03-11 14:03] VITALS: BMI 24.3
[2019-06-14 11:08] VITALS: BMI 24.8
[2019-07-12] MEDS: Immune Globulin 20 gm Premixed Solution 66 BAG IV (11:41)
[2019-07-12 11:45] VITALS: BMI 24.1
== END | disposition home or self-care (01) ==
LOC: MEDOUTP 11:06
PROVIDERS: Family Provider Family Medicine; PCP Family Medicine; Referring Provider Family Medicine; Visit Provider Family Medicine
DX: D83.9 Common variable immunodeficiency, unspecified (principal); M51.36 Other intervertebral disc degeneration, lumbar region; M19.90 Unspecified osteoarthritis, unspecified site; R29.3 Abnormal posture
CPT/HCPCS: 96365; 96366; 97110; J7050; A4216; J1568

== ENCOUNTER 2019-07-22 09:30 | Outpatient (RCR) | payer MEDICARE, OTHER, SELFPAY ==
[2019-03-11 14:03] VITALS: BMI 24.3
[2019-06-14 11:08] VITALS: BMI 24.8
--- NOTE | 2019-06-26 10:30 | HP.PTEVAL_ITS ---
Patient's Visit Information FRANCISCO CONNOR is a 69 year old M referred to Physical Therapy by Mahesh Avendano MD with a diagnosis of LUMBAR DDD/DJD. Date of Evaluation: 06/26/19 Physical Therapist: Ariana Sanchez PT, Cert MDT - Visit Plan Frequency: 2-3x /Week Duration: 4-6 Weeks Plan: LUMBAR US, POSTURE CORRECTION/STRENGTHENING, INSTRUCTION IN APPROPRIATE BODY MECHANICS AND ACTIVITY MODIFICATIONS. DLS STARTING WITH A NEUTRAL SPINE PROGRESSING ROM TOLERATED. MAURY LE ROM, STRETCHING AND STRENGTHENING. HEP INSTRUCTION. - Subjective Findings: Work/Leisure: RETIRED ONE MONTH AGO FROM [employer] - [employer]IE[employer] J[employer]. Disability: NO. Present symptoms: MAURY LBP. Present since: REALLY BAD FOR A FEW MONTHS. INCREASED BACK PAIN AFTER HEART CATH SURGERIES IN MARCH 2019. HAS BEEN DEALING WITH BACK PAIN IN CARDIAC REHAB BUT CARDIAC REHAB DIDN'T SEEM TO MAKE THE PAIN WORSE. SITTING HURT MORE THAN EXERCISING. Pain Scale: WORSE 8/10, LEAST 1/10. Currently:1/10. Commenced as a result of: NO APPARENT REASON. Symptoms at onset: BACK. Worse: TRYING TO LIE DOWN FROM SITTING. RISING FROM SITTING. WORSE TOWARD THE END OF THE DAY. TWISTING. STANDING. SOMETIMES SITTING. Better: SITTING, LYING, MALOXACAM. Disturbed sleep: NO. Previous history/Previous treatment: UNREMARKABLE OTHER THAN EPISODIC LBP SELF TREATED. Coughing/sneezing/straining: POSITIVE. Gait: NORMAL. Difficulty initiating urinatin: NO. Accidents: NO. Unexplained weight loss: NO. Imaging: LOWER BACK X-RAY AND CT SCAN - FINDINGS: Lumbar spine is intact and aligned. Mineralization is decreased. There is. subchondral degenerative band like sclerosis at the L5-S1 superimposed on. disc degeneration. Paraspinous soft tissues and SI joints are normal. There are multilevel age-related degenerative changes without thecal sac. compression. There is bilateral L5-S1 lateral recess and moderate to. severe foraminal stenosis. There is mild bilateral L4-L5 foraminal. stenosis. Spinal canal is patent. 0005 CT/Spine Lumbar without Contrast. IMPRESSION: 1. Osteoporosis. 2. Patent thecal sac. 3. Spondylosis with bilateral L5-S1 foraminal stenosis. PMH: MARCH 2019 2 ANGIOPLASTY SX'S WITH 3 HEART STENTS TOTAL - CARDIAC REHAB - ENDED LAST MONDAY. OSTEOPOROSIS? POSSIBLE PARKINSON'S DZ. - Objective Sitting/Standing Posture: POOR. RIGHT LATERAL SHIFT. SLOUCHED IN SITTING. Lordosis: DECREASED. Lateral shift: RIGHT. Relevant shift: NO. Active Correction of posture: NE. Other Observations: TREMBLING. INDEP GAIT AND TRANSFERS WITHOUT AD. NO LOB NOTED. DECREASED MAURY STRIDE LENGTH AND MILD SHUFFLE TYPE GAIT. DECREASED TRUNK ROTATION AND MAURY ARM SWING WITH GAIT. Motor deficit: MAURY LE STRENGTH 5/5 WITH MMT'ING. Sensory deficit: MAURY LE LIGHT TOUCH SENSATION APPEARS INTACT AND SYMMETRICAL. ROM deficit: TIGHT MAURY LE HIP FLEXORS, HIP ROTATORS, HS'S AND GASTROC SOLEUS COMPLEX'S. Reflexes: NT. Dural Signs: NEGATIVE MAURY LE'S. Lumbar mvmt loss: flex - MOD - INCREASES BACK PAIN AND DEVIATES TO RIGHT IN THE BEGINNING THEN STRAIGHTENS OUT. ext - MAHAMED - NE. R SG - MOD - INCRASES RIGHT LBP. L SG - MAHAMED - INCREASES RIGHT LBP. Core strength: POOR. Palpation: NO ACUTE TENDERNESS OF LOWER THORACIC, LUMBAR OR SACRAL AREAS BUT MAURY LUMBAR PARASPINALS ARE VERY TIGHT. - Goals Goal 1:: DECREASE C/O LOW BACK PAIN Goal Time Frame: 4-6 Weeks Goal 2:: IMPROVE ADL, LIFTING, SITTING AND HOMEMAKING FUNCTION Goal Time Frame: 4-6 Weeks Goal 3:: INSTRUCT IN PROPHYLAXIS Goal Time Frame: 4-6 Weeks - Rehabilitation Potential Rehabilitation Potential: Fair - Anticipated Interventions Patient/Client Instruction: Educate patient on: Condition, Plan of Care, Risk Factors, Benefits of Fitness Program For the Purpose of:: To improve self management Therapeutic Exercise to Include: Strength training, Body mechanics, Postural training, Flexibilty training, Dynamic Lumbar Stabilization For the Purpose of:: To decrease pain, To increase ROM, To improve muscle performance and motor function, To increase tolerance to activity/condition/position, To improve ability of physical actions for home/community/work/leisure Ultrasound (thermal/non thermal): Yes For the Purpose of:: To decrease pain, To improve nutrient delivery to tissue Thank you for the opportunity to evaluate your patient. For Medicare and Medicare HMO plans, please review the plan of care and approve it. It will need to be FAXED BACK to us at [phone] for Medicare purposes. For Medicare only, by signing this I certify the plan of care. Please let me know if there are questions or concerns regarding this plan of care. Physician Signature: Date:
--- NOTE | 2019-07-22 10:13 | HP.PTREVAL ---
Mahesh Avendano MD, It has been my pleasure to treat FRANCISCO CONNOR over the last 10 visits for LUMBAR DDD/DJD. Please see the progress note below for an update on the physical therapy plan of care! Subjective: PATIENT REPORTS HIS LOWER BACK PAIN IS NOT INTENSE IT WAS. STATES IT IS A GOOD SIGN THAT HE IS DOING OK WITH A LESSER PAIN MED THAT HE IS TRYING. HE REPORTS THAT AT THIS POINT IS BACK PAIN IS NOT DISTURBING HIS QUALITY OF LIFE AND THAT IS BETTER THAN IT WAS A MONTH AGO. HE REPORTS HE HAS BEEN DOING HIS HEP, YOGA AND MUKESH. HE REPORTS HE ALSO DID A STEPPER CLASS WITHOUT THE STEP LAST WEEK. HE REPORTS THIS IS WHAT HE USE TO DO AND THEN IT GOT TO BE TOO MUCH BEFORE HAVING PT SO HE KNOWS HE IS BETTER. FOLLOW UP PENDING WITH DR. AVENDANO IN SEP. PATIENT REPORTS THAT NOW THAT HE IS ABLE TO BE BACK WITH HIS EX CLASSES HE DOESN'T FEEL LIKE HE NEEDS ANY MORE FORMAL PHYSICAL THERAPY. HAD MRI FOR PARKINSON'S AND FOLLOW UP WITH NEUROLGY PENDING MONDAY. Objective/Function: UPON EXAM TODAY LUMBAR ROM HAS IMPROVED A LITTLE BIT AND IS NOT PAINFUL WITH TESTING BUT OTHERWISE THERE ARE NO SIGNIFICANT CHANGES UPON EXAM TODAY COMPARED TO INITIAL EVAL. TODAY: Lumbar mvmt loss: flex - MIN WITHOUT DEVICATION. ext - MAHAMED - NE. R SG - MOD - NE. L SG - MAHAMED - NE. Core strength: POOR Plan Plan: D/C TO INDEP EX. PATIENT IS AGREEABLE. Goals Goal 1:: DECREASE C/O LOW BACK PAIN Goal Time Frame: 4-6 Weeks Goal Progress: Goal Met Goal 2:: IMPROVE ADL, LIFTING, SITTING AND HOMEMAKING FUNCTION Goal Time Frame: 4-6 Weeks Goal Progress: Goal Met Goal 3:: INSTRUCT IN PROPHYLAXIS Goal Time Frame: 4-6 Weeks Goal Progress: Goal Met Anticipated Interventions Patient/Client Instruction: Educate patient on: Condition, Plan of Care, Risk Factors, Benefits of Fitness Program For the Purpose of:: To improve self management Therapeutic Exercise to Include: Strength training, Body mechanics, Postural training, Flexibilty training, Dynamic Lumbar Stabilization For the Purpose of:: To decrease pain, To increase ROM, To improve muscle performance and motor function, To increase tolerance to activity/condition/position, To improve ability of physical actions for home/community/work/leisure Ultrasound (thermal/non thermal): Yes For the Purpose of:: To decrease pain, To improve nutrient delivery to tissue Please do not hesitate to contact me at [phone] by phone or if you have questions or concerns regarding this new plan of care! Sincerely, Ariana Sanchez, PT, Cert MDT
--- NOTE | 2019-08-30 16:18 | HP.PTDCSUM ---
HP - PT D/C Summary It has been my pleasure to treat FRANCISCO CONNOR under orders from Mahesh Avendano MD, for the diagnosis of LUMBAR DDD/DJD for a total of 10 visit(s). Discharge Date: 07/22/19 Please see the following information for a summary of their discharge status. - Subjective Subjective: PATIENT REPORTS HIS LOWER BACK PAIN IS NOT INTENSE IT WAS. STATES IT IS A GOOD SIGN THAT HE IS DOING OK WITH A LESSER PAIN MED THAT HE IS TRYING. HE REPORTS THAT AT THIS POINT IS BACK PAIN IS NOT DISTURBING HIS QUALITY OF LIFE AND THAT IS BETTER THAN IT WAS A MONTH AGO. HE REPORTS HE HAS BEEN DOING HIS HEP, YOGA AND MUKESH. HE REPORTS HE ALSO DID A STEPPER CLASS WITHOUT THE STEP LAST WEEK. HE REPORTS THIS IS WHAT HE USE TO DO AND THEN IT GOT TO BE TOO MUCH BEFORE HAVING PT SO HE KNOWS HE IS BETTER. FOLLOW UP PENDING WITH DR. AVENDANO IN SEP. PATIENT REPORTS THAT NOW THAT HE IS ABLE TO BE BACK WITH HIS EX CLASSES HE DOESN'T FEEL LIKE HE NEEDS ANY MORE FORMAL PHYSICAL THERAPY. HAD MRI FOR PARKINSON'S AND FOLLOW UP WITH NEUROLGY PENDING MONDAY. - Pain LBP Pain Intensity (Out of 10): 2 - Overall Improvement % Improvement: 33 - Objective Objective/Function: UPON EXAM TODAY LUMBAR ROM HAS IMPROVED A LITTLE BIT AND IS NOT PAINFUL WITH TESTING BUT OTHERWISE THERE ARE NO SIGNIFICANT CHANGES UPON EXAM TODAY COMPARED TO INITIAL EVAL. TODAY: Lumbar mvmt loss: flex - MIN WITHOUT DEVICATION. ext - MAHAMED - NE. R SG - MOD - NE. L SG - MAHAMED - NE. Core strength: POOR - Goals Goal 1:: DECREASE C/O LOW BACK PAIN Goal Progress: Goal Met Goal 2:: IMPROVE ADL, LIFTING, SITTING AND HOMEMAKING FUNCTION Goal Progress: Goal Met Goal 3:: INSTRUCT IN PROPHYLAXIS Goal Progress: Goal Met - Plan Plan: D/C TO INDEP EX. PATIENT IS AGREEABLE. - D/C Information If there are questions or concerns regarding this patient's physical therapy, please feel free to call me at [phone]. Thank you for the referral of this patient. Sincerely, Ariana Sanchez, PT, Cert MDT
== END 2019-07-22 19:00 | disposition home or self-care (01) ==
LOC: PT 09:30
PROVIDERS: Family Provider Family Medicine; PCP Family Medicine; Visit Provider Family Medicine
DX: M51.36 Other intervertebral disc degeneration, lumbar region (principal); M19.90 Unspecified osteoarthritis, unspecified site; R29.3 Abnormal posture
CPT/HCPCS: 97110; 97162; 97164; 97530

== ENCOUNTER → 2019-08-08 15:43 | Outpatient (CLI) | payer MEDICARE, OTHER, SELFPAY ==
[2019-03-11 14:03] VITALS: BMI 24.3
[2019-07-12 11:45] VITALS: BMI 24.1
== END ==
PROVIDERS: Family Provider Family Medicine; PCP Family Medicine; Referring Provider Otolaryngology; Visit Provider Otolaryngology
DX: J01.90 Acute sinusitis, unspecified (principal)
CPT/HCPCS: 87070; 87077; 87186; 87205

== ENCOUNTER → 2019-08-09 10:29 | Outpatient (CLI) | payer MEDICARE, OTHER, SELFPAY ==
[2019-03-11 14:03] VITALS: BMI 24.3
[2019-06-14 11:08] VITALS: BMI 24.8
[2019-07-12 11:45] VITALS: BMI 24.1
[2019-08-09 10:42] VITALS: BP 109/54; PULSE 66; RESP 18; TEMP 36.6; O2SAT 100; BMI 25.0
[2019-08-09] MEDS: Immune Globulin 20 gm Premixed Solution 66 BAG IV (10:57)
== END ==
PROVIDERS: Family Provider Family Medicine; PCP Family Medicine; Referring Provider Family Medicine; Visit Provider Family Medicine
DX: D83.9 Common variable immunodeficiency, unspecified (principal)
CPT/HCPCS: 96365; 96366; J1568

== ENCOUNTER → 2019-09-06 11:05 | Outpatient (CLI) | payer MEDICARE, OTHER, SELFPAY ==
[2019-03-11 14:03] VITALS: BMI 24.3
[2019-08-09 10:42] VITALS: BMI 25.0
[2019-08-22 08:10] VITALS: BMI 25.0
[2019-09-06] MEDS: Immune Globulin 20 gm Premixed Solution 66 BAG IV (11:31)
[2019-09-06 11:33] VITALS: BP 104/49; PULSE 71; RESP 16; TEMP 36.5; O2SAT 100; BMI 25.3
== END ==
PROVIDERS: Family Provider Family Medicine; PCP Family Medicine; Referring Provider Family Medicine; Visit Provider Family Medicine
DX: D83.9 Common variable immunodeficiency, unspecified (principal)
CPT/HCPCS: 96365; 96366; A4216; J1568

== ENCOUNTER → 2019-10-04 | Outpatient (CLI) | payer MEDICARE, OTHER, SELFPAY ==
[2019-03-11 14:03] VITALS: BMI 24.3
[2019-09-06 11:33] VITALS: BMI 25.3
[2019-10-04 11:09] VITALS: BP 104/47; PULSE 62; RESP 16; TEMP 36.6; BMI 24.3
[2019-10-04] MEDS: Immune Globulin 20 gm Premixed Solution 66 BAG IV (11:37)
== END | disposition home or self-care (01) ==
LOC: MEDOUTP 11:02
PROVIDERS: PCP Family Medicine; Referring Provider Family Medicine; Visit Provider Family Medicine
DX: D83.9 Common variable immunodeficiency, unspecified (principal)
CPT/HCPCS: 96365; 96366; A4216; J1568

== ENCOUNTER → 2019-11-01 | Outpatient (CLI) | payer MEDICARE, OTHER, SELFPAY ==
[2019-03-11 14:03] VITALS: BMI 24.3
[2019-09-06 11:33] VITALS: BMI 25.3
[2019-10-04 11:09] VITALS: BMI 24.3
[2019-11-01 11:08] VITALS: BP 139/56; PULSE 59; RESP 16; TEMP 36.7; BMI 23.5
[2019-11-01] MEDS: Immune Globulin 20 gm Premixed Solution 66 BAG IV (11:32)
== END | disposition home or self-care (01) ==
LOC: MEDOUTP 11:02
PROVIDERS: PCP Family Medicine; Referring Provider Family Medicine; Visit Provider Family Medicine
DX: D83.9 Common variable immunodeficiency, unspecified (principal)
CPT/HCPCS: 96365; 96366; A4216; J1568

== ENCOUNTER → 2019-11-29 | Outpatient (CLI) | payer MEDICARE, OTHER, SELFPAY ==
[2019-03-11 14:03] VITALS: BMI 24.3
[2019-11-01 11:08] VITALS: BMI 23.5
[2019-11-29 11:14] VITALS: BP 108/59; PULSE 68; RESP 16; TEMP 36.8; O2SAT 100; BMI 23.5
[2019-11-29] MEDS: 0.9% NaCl Peripheral Flush Adult/Peds IV (11:21)
[2019-11-29] MEDS: Immune Globulin 20 gm Premixed Solution 66 BAG IV (11:25)
== END | disposition home or self-care (01) ==
LOC: MEDOUTP 11:01
PROVIDERS: PCP Family Medicine; Referring Provider Family Medicine; Visit Provider Family Medicine
DX: D83.9 Common variable immunodeficiency, unspecified (principal)
CPT/HCPCS: 96365; 96366; A4216; J1568

== ENCOUNTER → 2019-12-27 | Outpatient (CLI) | payer MEDICARE, OTHER, SELFPAY ==
[2019-03-11 14:03] VITALS: BMI 24.3
[2019-11-01 11:08] VITALS: BMI 23.5
[2019-11-29 11:14] VITALS: BMI 23.5
[2019-12-27] MEDS: Immune Globulin 20 gm Premixed Solution 66 BAG IV (11:27)
[2019-12-27 11:29] VITALS: BP 125/69; PULSE 66; RESP 16; TEMP 36.5; O2SAT 100; BMI 23.5
== END | disposition home or self-care (01) ==
LOC: MEDOUTP 11:01
PROVIDERS: PCP Family Medicine; Referring Provider Family Medicine; Visit Provider Family Medicine
DX: D83.9 Common variable immunodeficiency, unspecified (principal)
CPT/HCPCS: 96365; 96366; A4216; J1568

== ENCOUNTER → 2020-01-23 14:47 | Outpatient (CLI) | payer MEDICARE, OTHER, SELFPAY ==
[2019-03-11 14:03] VITALS: BMI 24.3
[2019-12-27 11:29] VITALS: BMI 23.5
--- NOTE | 2020-01-23 14:48 | CT_ITS ---
STUDY: CT CHEST WITHOUT CONTRAST REASON FOR EXAM: Male, [address], SURG-LT INGUINAL HERNIA REPAIR RADIATION DOSAGE (If Supplied By Facility): CTDIvol = ( 8.66 ) mGy, DLP = ( 330.94 ) mGycm TECHNIQUE: Transaxial imaging was performed without the administration of intravenous contrast material. Individualized dose optimization techniques were used for this CT. COMPARISON: 04/22/2019. FINDINGS: Normal heart size. No pericardial effusion. The aorta is normal in caliber. No aneurysm or dissection. No mediastinal mass or adenopathy. No hilar or axillary adenopathy. There is no pleural effusion. No pneumothorax. There is no pulmonary consolidation. Mild fibrotic changes in the right lung apex, no change from prior. Mild bronchiectasis in the right upper lobe. Spleen measures 15.9 cm AP. Visualized abdomen is otherwise unremarkable. There is no osseous abnormality. CT/Chest without Contrast IMPRESSION: 1. No acute findings. 2. Chronic fibrosis and bronchiectasis in the right upper lobe. 3. Mild splenomegaly. Electronically Signed: Shelly Tejada MD at 23:07 EDT Tel , Service support ,
== END ==
PROVIDERS: PCP Family Medicine; Referring Provider Internal Medicine Critical Care Medicine; Visit Provider Internal Medicine Critical Care Medicine
DX: R91.8 Other nonspecific abnormal finding of lung field (principal); R22.2 Localized swelling, mass and lump, trunk
CPT/HCPCS: 71250

== ENCOUNTER → 2020-01-24 10:59 | Outpatient (CLI) | payer MEDICARE, OTHER, SELFPAY ==
[2019-03-11 14:03] VITALS: BMI 24.3
[2019-11-29 11:14] VITALS: BMI 23.5
[2019-12-27 11:29] VITALS: BMI 23.5
[2020-01-24 11:11] VITALS: BP 121/66; PULSE 65; RESP 16; TEMP 36.3; O2SAT 98; BMI 25.2
[2020-01-24] MEDS: Immune Globulin 20 gm Premixed Solution 66 BAG IV (11:23)
== END ==
PROVIDERS: PCP Family Medicine; Referring Provider Family Medicine; Visit Provider Family Medicine
DX: D83.9 Common variable immunodeficiency, unspecified (principal)
CPT/HCPCS: 96365; J1568

== ENCOUNTER → 2020-02-21 09:36 | Outpatient (CLI) | payer MEDICARE, OTHER, SELFPAY ==
[2019-03-11 14:03] VITALS: BMI 24.3
[2019-12-27 11:29] VITALS: BMI 23.5
[2020-01-25 08:47] VITALS: BMI 25.2
[2020-02-21 09:43] VITALS: BP 106/53; PULSE 68; RESP 16; TEMP 37.2; O2SAT 97; BMI 23.8
[2020-02-21] MEDS: 0.9% NaCl Peripheral Flush Adult/Peds IV (09:58)
[2020-02-21] MEDS: Immune Globulin 20 gm Premixed Solution 66 BAG IV (10:02)
== END ==
PROVIDERS: PCP Family Medicine; Referring Provider Family Medicine; Visit Provider Family Medicine
DX: D83.9 Common variable immunodeficiency, unspecified (principal); R53.1 Weakness
CPT/HCPCS: 96365; 96366; 97110; A4216; J1568

== ENCOUNTER 2020-02-24 07:00 | Outpatient (RCR) | payer MEDICARE, OTHER, SELFPAY ==
[2019-03-11 14:03] VITALS: BMI 24.3
[2020-01-25 08:47] VITALS: BMI 25.2
--- NOTE | 2020-02-04 14:43 | HP.PTEVAL ---
Patient's Visit Information FRANCISCO CONNOR is a 69 year old M referred to Physical Therapy by Dr. Mahesh Avendano MD with a diagnosis of Left Leg Weakness. Date of Evaluation: 02/04/20 Physical Therapist: Mariaa Pinzon DPT - Visit Plan Frequency: 3x /Week Duration: 4 Weeks Plan: Focus on LE and core strength/stabilization- starting with neutral spine and progressing as tolerated. Ultrasound as modality - Subjective Patient reports about a month ago he wasn't doing anything specific but cleaning out the barn- then started to have pain in the leg a few days later. Pain was intermittent in the left leg and all the way to the toes. Saw Dr. Avendano who gave him exercises to stretch the leg out. It wasn't helping so he sent him to PT. Is doing Etaoshi class but he had to sit down more than normal. About a year ago had a CT Scan of the lumbar spine- showed some disc issues. He had PT at that time but had no symptoms at that time down his leg. He has pain in the lateral aspect of the leg and in the left toes. No pain in the right LE. Has had back pain but not consistently. Describes the pain as dull and achy and sharp/shooting. Best: 0/10 Worst: 7/10 Agg: walking a lot, uphill, uneven surfaces, lifting. Very inconsistent. Feels like it catches in his back. Sleep is not disturbed- side sleeper. N/T in the big toe and the 2nd toe which comes and goes. 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 Not better or worse at the end of the day. Does not have a favorite chair he moves a lot. Did have a CT Scan for Dr. Al. PMHx/Meds: scanned into chart. Parkinsons and Heart - Objective Posture: FH, RS, Increased kyphosis- does not correct FH with verbal or tactile cues. Gait: slight shuffling (Parkinsons) good speed and arm swing. HR/TR: able with UE A. SLS: 10 sec bilaterally without LOB. Sensation: WNL to gross touch bilateral LE Reflex: Right: 2+ Left: 1+. Strength: LE: 5/5 throughout Core: fair. Palpation: not tender to touch in LE or lumbar spine. ROM: Lumbar: Flexion hands to mid carlos reports pain with return to standing, Extn: neutral SB: WFL but reports pain on the right with right SB. Rot: pain with rot right. Flex: HS: severe, Gastroc: severe - Goals Goal 1:: Patient will be I with HEP and progression Goal Time Frame: 4-6 Weeks Goal 2:: Patient will maintain proper posture t/o tx session to demo increased core s/s Goal Time Frame: 4-6 Weeks Goal 3:: Patient will report no left left pain for 1 week Goal Time Frame: 4-6 Weeks Goal 4:: Patient will demo appropriate lifting techniques Goal Time Frame: 4-6 Weeks - Rehabilitation Potential Physical Therapy Diagnosis: Patient presents with hypomobility- he has decreased ROM, strength, flex and muscular endurance leading to poor posture and increased pain with ADL's. Rehabilitation Potential: Good - Anticipated Interventions Patient/Client Instruction: Educate patient on: Benefits of Fitness Program Therapeutic Exercise to Include: Strength training, Endurance training, Balance training, Coordination, Agility training, Body mechanics, Postural training, Flexibilty training, Gait and locomotor training, Neuromotor development, Dynamic Lumbar Stabilization, Scapular Strength/Stabilization For the Purpose of:: To improve muscle performance and motor function Manual Therapy Techniques to Include: Mobilization, Soft tissue mobilization For the Purpose of:: To improve muscle performance and motor function TENS: Yes Cryotherapy (ice pack, ice massage): Yes Thermo therapy (hot pack): Yes Ultrasound (thermal/non thermal): Yes For the Purpose of:: To decrease pain Thank you for the opportunity to evaluate your patient. For Medicare and Medicare HMO plans, please review the plan of care and approve it. It will need to be FAXED BACK to us at [phone] for Medicare purposes. For Medicare only, by signing this I certify the plan of care. Please let me know if there are questions or concerns regarding this plan of care. Physician Signature: Date:
--- NOTE | 2020-05-21 08:53 | HP.PTDCSUM_ITS ---
It has been my pleasure to treat FRANCISCO CONNOR referred by Dr. Mahesh Avendano MD, with the diagnosis of Left Leg Weakness for a total of 7 visit(s). Discharge Date: Please see the following information for a summary of their discharge status. Subjective: Pt states he's doing senior strength 2x/week and yoga classes 3x/week. Doesn't feel a whole lot, if any, improvements since IE yet. Wondering about possible chiro. Still no LBP, but transient pain and weakness in the leg persists. Still needs to modify some activities in his classes. L LE Pain Intensity (Out of 10): 0 LBP Pain Intensity (Out of 10): 0 Objective/Function: Progressed ex's today ad pt stated he could tell a difference. [place] the left leg sx's quite a bit more with the change to standing antirotation pressing, but still able to decrease those sx's with piri stretching. Advised he can try chiro - might be a good adjunct to PT. Stated he felt a little more encouraged after session today - states he felt it more in a good way. Goal 1:: Patient will be I with HEP and progression Goal 2:: Patient will maintain proper posture t/o tx session to demo increased core s/s Goal 3:: Patient will report no left left pain for 1 week Goal 4:: Patient will demo appropriate lifting techniques Plan: Focus on LE and core strength/stabilization - starting with neutral spine and progressing as tolerated. Ultrasound as modality If there are questions or concerns regarding this patient's physical therapy, please feel free to call me at [phone]. Thank you for the referral of this patient. Sincerely, Mariaa Pinzon DPT
== END 2020-02-24 19:00 ==
LOC: PT 07:00
PROVIDERS: PCP Family Medicine; Referring Provider Family Medicine; Visit Provider Family Medicine
DX: M62.81 Muscle weakness (generalized) (principal)
CPT/HCPCS: 97110; 97162

== ENCOUNTER → 2020-03-20 | Outpatient (CLI) | payer MEDICARE, OTHER, SELFPAY ==
[2019-03-11 14:03] VITALS: BMI 24.3
[2020-01-25 08:47] VITALS: BMI 25.2
[2020-02-21 09:43] VITALS: BMI 23.8
[2020-03-20] MEDS: 0.9% NaCl Peripheral Flush Adult/Peds IV (10:31)
[2020-03-20] MEDS: Immune Globulin 20 gm Premixed Solution 66 BAG IV (10:31)
[2020-03-20 10:32] VITALS: BP 119/63; PULSE 71; RESP 14; TEMP 36.9; O2SAT 99; BMI 24.3
== END | disposition home or self-care (01) ==
LOC: MEDOUTP 10:13
PROVIDERS: PCP Family Medicine; Referring Provider Family Medicine; Visit Provider Family Medicine
DX: D83.9 Common variable immunodeficiency, unspecified (principal)
CPT/HCPCS: 96365; 96366; A4216; J1568

== ENCOUNTER → 2020-04-17 | Outpatient (CLI) | payer MEDICARE, OTHER, SELFPAY ==
[2019-03-11 14:03] VITALS: BMI 24.3
[2020-02-21 09:43] VITALS: BMI 23.8
[2020-04-15 08:37] VITALS: BMI 24.4
[2020-04-17 10:30] VITALS: BP 106/57; PULSE 60; RESP 16; TEMP 36.7; O2SAT 99; BMI 23.8
[2020-04-17] MEDS: 0.9% NaCl Peripheral Flush Adult/Peds IV (10:33)
[2020-04-17] MEDS: Immune Globulin 20 gm Premixed Solution 66 BAG IV (10:35)
== END | disposition home or self-care (01) ==
LOC: MEDOUTP 10:08
PROVIDERS: PCP Family Medicine; Referring Provider Family Medicine; Visit Provider Family Medicine
DX: D83.9 Common variable immunodeficiency, unspecified (principal)
CPT/HCPCS: 96365; 96366; A4216; J1568

== ENCOUNTER → 2020-05-15 | Outpatient (CLI) | payer MEDICARE, OTHER, SELFPAY ==
[2019-03-11 14:03] VITALS: BMI 24.3
[2020-04-15 08:37] VITALS: BMI 24.4
[2020-04-17 10:30] VITALS: BMI 23.8
[2020-05-15 10:28] VITALS: BP 105/53; PULSE 58; RESP 16; TEMP 36.6; O2SAT 99; BMI 24.3
[2020-05-15] MEDS: 0.9% NaCl Peripheral Flush Adult/Peds IV (10:34)
[2020-05-15] MEDS: Immune Globulin 20 gm Premixed Solution 66 BAG IV (10:35)
[2020-05-15 10:57] LABS: AST(SGOT) 37 U/L (15-37); Alanine Aminotransfer ALT/SGPT 18 U/L (16-61); Albumin, Serum 3.9 g/dL (3.2-5.0); Alkaline Phosphatase 60 U/L (45-117); Cholesterol 95 mg/dL (200); Globulin 2.8 g/dL (2.2-4.2); High Density Lipoprotein 31 mg/dL; Protein, Total 6.7 g/dL (6.4-8.2); Triglycerides 91 mg/dL; Very Low Density Lipoprotein 18 mg/dL (5-40)
== END | disposition home or self-care (01) ==
LOC: MEDOUTP 10:09
PROVIDERS: Physician Assistant Medical; PCP Family Medicine; Referring Provider Family Medicine; Visit Provider Family Medicine
DX: D83.9 Common variable immunodeficiency, unspecified (principal); E78.00 Pure hypercholesterolemia, unspecified; I25.10 Atherosclerotic heart disease of native coronary artery without angina pectoris
CPT/HCPCS: 96365; 96366; 80061; 80076; A4216; J1568

== ENCOUNTER → 2020-06-11 | Outpatient (CLI) | payer MEDICARE, OTHER, SELFPAY ==
[2019-03-11 14:03] VITALS: BMI 24.3
[2020-04-17 10:30] VITALS: BMI 23.8
[2020-05-15 10:28] VITALS: BMI 24.3
[2020-06-11 10:14] VITALS: BP 124/59; PULSE 65; RESP 18; TEMP 36.9; O2SAT 100; BMI 24.3
[2020-06-11] MEDS: 0.9% NaCl Peripheral Flush Adult/Peds IV (10:35)
[2020-06-11] MEDS: Immune Globulin 20 gm Premixed Solution 66 BAG IV (10:36)
[2020-06-11 12:20] VITALS: BP 108/54; PULSE 57; RESP 16; TEMP 37.1; O2SAT 100
== END | disposition home or self-care (01) ==
LOC: MEDOUTP 10:02
PROVIDERS: PCP Family Medicine; Referring Provider Family Medicine; Visit Provider Family Medicine
DX: D83.9 Common variable immunodeficiency, unspecified (principal)
CPT/HCPCS: 96365; 96366; A4216; J1568

== ENCOUNTER → 2020-07-10 10:07 | Outpatient (CLI) | payer MEDICARE, OTHER, SELFPAY ==
[2019-03-11 14:03] VITALS: BMI 24.3
[2020-05-15 10:28] VITALS: BMI 24.3
[2020-06-11 10:14] VITALS: BMI 24.3
[2020-07-10 10:19] VITALS: BP 101/55; PULSE 62; RESP 16; TEMP 36.2; O2SAT 98; BMI 24.3
[2020-07-10] MEDS: Immune Globulin 20 gm Premixed Solution 0.7 BAG IV (10:44)
[2020-07-10] MEDS: 0.9% NaCl Peripheral Flush Adult/Peds IV (10:53)
[2020-07-10 12:34] VITALS: BP 103/59; PULSE 68; RESP 16; O2SAT 98
== END ==
PROVIDERS: PCP Family Medicine; Referring Provider Family Medicine; Visit Provider Family Medicine
DX: D83.9 Common variable immunodeficiency, unspecified (principal)
CPT/HCPCS: 96365; 96366; A4216; J1568

== ENCOUNTER → 2020-08-07 10:11 | Outpatient (CLI) | payer MEDICARE, OTHER, SELFPAY ==
[2019-03-11 14:03] VITALS: BMI 24.3
[2020-06-11 10:14] VITALS: BMI 24.3
[2020-07-10 10:19] VITALS: BMI 24.3
[2020-08-07 10:30] VITALS: BP 108/52; PULSE 58; RESP 16; TEMP 36.8; BMI 24.3
[2020-08-07] MEDS: 0.9% NaCl Peripheral Flush Adult/Peds IV (10:41)
[2020-08-07] MEDS: Immune Globulin 20 gm Premixed Solution 66 BAG IV (10:42)
[2020-08-07 12:31] VITALS: BP 111/54; PULSE 58; RESP 16; TEMP 36.6
== END ==
PROVIDERS: PCP Family Medicine; Referring Provider Family Medicine; Visit Provider Family Medicine
DX: D83.9 Common variable immunodeficiency, unspecified (principal)
CPT/HCPCS: 96365; 96366; A4216; J1568

== ENCOUNTER → 2020-09-08 08:41 | Outpatient (CLI) | payer MEDICARE, OTHER, SELFPAY ==
[2019-03-11 14:03] VITALS: BMI 24.3
[2020-07-10 10:19] VITALS: BMI 24.3
[2020-08-07 10:30] VITALS: BMI 24.3
[2020-09-08] MEDS: 0.9% NaCl Peripheral Flush Adult/Peds IV (09:00)
[2020-09-08] MEDS: Immune Globulin 20 gm Premixed Solution 66 BAG IV (09:06)
[2020-09-08 09:13] VITALS: BP 119/52; PULSE 71; RESP 16; TEMP 35.9; O2SAT 98; BMI 24.3
== END ==
PROVIDERS: PCP Family Medicine; Referring Provider Family Medicine; Visit Provider Family Medicine
DX: D83.9 Common variable immunodeficiency, unspecified (principal)
CPT/HCPCS: 96365; 96366; A4216; J1568

== ENCOUNTER → 2020-10-06 09:59 | Outpatient (CLI) | payer MEDICARE, OTHER, SELFPAY ==
[2019-03-11 14:03] VITALS: BMI 24.3
[2020-08-07 10:30] VITALS: BMI 24.3
[2020-09-08 09:13] VITALS: BMI 24.3
[2020-10-06] MEDS: 0.9% NaCl Peripheral Flush Adult/Peds IV (10:31)
[2020-10-06 10:32] VITALS: BP 111/52; PULSE 62; RESP 16; TEMP 35.9; O2SAT 100; BMI 24.3
[2020-10-06] MEDS: Immune Globulin 20 gm Premixed Solution 66 BAG IV (10:42)
== END ==
PROVIDERS: PCP Family Medicine; Referring Provider Family Medicine; Visit Provider Family Medicine
DX: D83.9 Common variable immunodeficiency, unspecified (principal)
CPT/HCPCS: 96365; 96366; A4216; J1568

== ENCOUNTER → 2020-11-05 13:00 | Outpatient (CLI) | payer MEDICARE, OTHER, SELFPAY ==
[2019-03-11 14:03] VITALS: BMI 24.3
[2020-09-08 09:13] VITALS: BMI 24.3
[2020-10-06 10:32] VITALS: BMI 24.3
[2020-11-05 13:23] VITALS: BP 128/58; PULSE 81; RESP 16; TEMP 37; O2SAT 99; BMI 24.3
[2020-11-05] MEDS: Immune Globulin 20 gm Premixed Solution 66 BAG IV (13:33)
== END ==
PROVIDERS: PCP Family Medicine; Referring Provider Family Medicine; Visit Provider Family Medicine
DX: D83.9 Common variable immunodeficiency, unspecified (principal)
CPT/HCPCS: 96365; 96366; A4216; J1568

== ENCOUNTER → 2020-12-03 13:07 | Outpatient (CLI) | payer MEDICARE, OTHER, SELFPAY ==
[2019-03-11 14:03] VITALS: BMI 24.3
[2020-10-06 10:32] VITALS: BMI 24.3
[2020-11-05 13:23] VITALS: BMI 24.3
[2020-12-03 13:36] VITALS: BP 113/51; PULSE 72; RESP 16; TEMP 36.7; O2SAT 97
[2020-12-03 13:37] VITALS: BMI 24.3
[2020-12-03] MEDS: 0.9% NaCl Peripheral Flush Adult/Peds IV (13:48)
[2020-12-03] MEDS: Immune Globulin 20 gm Premixed Solution 1 BAG IV (13:48)
== END ==
PROVIDERS: PCP Family Medicine; Referring Provider Family Medicine; Visit Provider Family Medicine
DX: D83.9 Common variable immunodeficiency, unspecified (principal)
CPT/HCPCS: 96365; 96366; A4216; J1568

== ENCOUNTER → 2020-12-08 11:11 | Outpatient (CLI) | payer MEDICARE, OTHER, SELFPAY ==
[2019-03-11 14:03] VITALS: BMI 24.3
[2020-12-03 13:37] VITALS: BMI 24.3
[2020-12-08 12:25] LABS: PSA,Total - Annual Screen 4.35 ng/mL (0.00-4.00)
== END ==
PROVIDERS: PCP Family Medicine; Referring Provider Nurse Practitioner Adult Health; Visit Provider Nurse Practitioner Adult Health
DX: Z12.5 Encounter for screening for malignant neoplasm of prostate (principal)
CPT/HCPCS: 36415; 84153; G0103

== ENCOUNTER → 2020-12-09 07:42 | Outpatient (CLI) | payer MEDICARE, OTHER, SELFPAY ==
[2019-03-11 14:03] VITALS: BMI 24.3
[2020-12-03 13:37] VITALS: BMI 24.3
[2020-12-09 10:59] LABS: AST(SGOT) 25 U/L (15-37); Alanine Aminotransfer ALT/SGPT 17 U/L (16-61); Albumin, Serum 3.7 g/dL (3.2-5.0); Alkaline Phosphatase 66 U/L (45-117); Bilirubin, Direct 0.18 mg/dL (0.00-0.30); Cholesterol 84 mg/dL (200); Globulin 3.1 g/dL (2.2-4.2); High Density Lipoprotein 30 mg/dL; Protein, Total 6.8 g/dL (6.4-8.2); Triglycerides 78 mg/dL; Very Low Density Lipoprotein 16 mg/dL (5-40)
== END ==
PROVIDERS: PCP Family Medicine; Referring Provider Physician Assistant Medical; Visit Provider Physician Assistant Medical
DX: E78.5 Hyperlipidemia, unspecified (principal); E78.00 Pure hypercholesterolemia, unspecified
CPT/HCPCS: 36415; 80061; 80076

== ENCOUNTER 2020-12-12 12:48 | Emergency (ER) | payer MEDICARE, OTHER, SELFPAY ==
[2019-03-11 14:03] VITALS: BMI 24.3
[2020-12-03 13:37] VITALS: BMI 24.3
[2020-12-12 12:49] VITALS: BP 144/72; PULSE 73; RESP 15; TEMP 36.7; O2SAT 99; BMI 24.3
--- NOTE | 2020-12-12 13:17 | ED.DCSUM_ITS ---
History of Present Illness Chief Complaint: Complaint Informant: Patient, Family Onset: Today Current Severity: Mild Maximum Severity: Moderate Narrative: Patient presents with suprapubic pressure and not being able to urinate. He states he woke up at 5 AM this morning with the urge to urinate but could not pass any urine. He has had problems with enlarged prostate and urinary retention in the past. He denies any dysuria or recent problems urinating. - Past Medical History (1) Parkinsons disease Status: Chronic (2) Atherosclerosis of coronary artery of [place] heart without angina pectoris Status: Chronic Comment: QKR-WCA-Zcrcgn RCA w/ 2.5 x 12 mm Elunir Stent and MILANA-Mid RCA w/ 3.0 x 33 mm Elunir Stent 03/11/19; PCI-MILANA- Mid LAD w/ 3.0 x 16 mm Synergy MR Stent 03/21/2019 (3) History of coronary artery stent placement Status: Chronic Comment: OWK-CAK-Vzbraz RCA w/ 2.5 x 12 mm Elunir Stent and MILANA-Mid RCA w/ 3.0 x 33 mm Elunir Stent 03/11/19; PCI-MILANA- Mid LAD w/ 3.0 x 16 mm Synergy MR Stent 03/21/2019 (4) Hyperlipidemia Status: Chronic Past Medical History - Allergies and Home Meds Allergies/Adverse Reactions: Allergies No Known Allergies Allergy (Verified 12/12/20 12:49) Primary Care Physician: Mahesh Avendano MD [Primary Care Provider] - Prior records reviewed: Yes Lives: Spouse/ Significant Other Smoking Status: Never smoker Review of Systems General: Denies: Chills, Fever Eyes: Denies: Visual changes - bilaterally ENT: Denies: Bilateral ear pain Cardiovascular: Denies: Chest pain Respiratory: Denies: Dyspnea, Cough Gastrointestinal: Reports: Abdominal pain Genitourinary: Reports: - - Unable to urinate Musculoskeletal: Denies: Myalgias, Back pain Skin: Denies: Rash Neurological: Denies: Headache Hematologic: Denies: Easy bruising, Easy bleeding Allergy: Denies: Uticaria Physical Exam Vital Signs/Narrative: Vital Signs Temp Pulse Resp BP Pulse Ox 12/12/20 12:49 98.0 F 73 15 144/72 H 99 Inital Vital Signs reviewed: Yes General: Well nourished, Well developed Head: Normocephalic Neck: Supple Cardiovascular: Regular rate, Regular rhythm Respiratory: No distress, CTA bilaterally Abdomen: Soft, Tender - Prepubic tenderness to palpation Back: Negative for: CVA tenderness Extremities: Nontender Skin: Normal color Neurological: Alert, Oriented x3 Psychological: Normal affect Diagnostic/Tx/Re-eval - Medical Decision Making Kirkpatrick catheter was placed by nursing staff. When I went back to reevaluate the patient he had 800 cc of yellow urine in the Kirkpatrick bag. Urinalysis was sent and shows no sign of infection at this time. Patient be given a leg bag and will follow up with his urologist next week. ED Disposition - Plan for ED Patient: Disposition: Home or Assisted Living Diagnosis: Urinary retention Instructions: ED Urinary Retention, Male, ED Kirkpatrick Catheter, Care Referrals: Blaine Lee MD [STAFF PHYSICIAN] - 3-5 Days
[2020-12-12 13:27] LABS: Bacteria 0 SEEN /hpf (None Seen); Mucous, Urine 0 SEEN /hpf (<or=2+); Squamous Epithelial Cells - UA 0 SEEN /hpf (0-5); White Blood Cells 0 SEEN /hpf (0-5)
[2020-12-12 13:30] LABS: Color, Urine Yellow (Yellow); Glucose, Dipstick Normal (Normal); Ketone-Dipstick Negative (Negative); Leukocyte Esterase-Dipstick Negative /ul (Negative); Nitrite-Dipstick Negative (Negative); Occult Blood-Urine 25 /ul (Negative); Protein-Dipstick Negative (Negative); Urine Bilirubin Dipstick Negative (Negative); Urine Clarity Clear (Clear); Urine Urobilinogen Normal (Normal)
[2020-12-12 13:36] LABS: Red Blood Cells-Urine 0-5 SEEN /hpf (0-5)
== END 2020-12-12 14:24 | disposition home or self-care (01) ==
PROVIDERS: Emergency Provider Emergency Medicine; PCP Family Medicine
DX: R33.8 Other retention of urine (principal); I25.10 Atherosclerotic heart disease of native coronary artery without angina pectoris; E78.5 Hyperlipidemia, unspecified; G20 Parkinson's disease
CPT/HCPCS: 51702; 81001; 99283

== ENCOUNTER 2020-12-30 13:27 | Day surgery (SDC) | payer MEDICARE, OTHER, SELFPAY ==
[2019-03-11 14:03] VITALS: BMI 24.3
--- NOTE | 2020-12-28 10:13 | EKG12_ITS ---
Test Reason : PREOP Blood Pressure : / mmHG Vent. Rate : 063 BPM Atrial Rate : 063 BPM P-R Int : 132 ms QRS Dur : 090 ms QT Int : 380 ms P-R-T Axes : 060 066 059 degrees QTc Int : 388 ms Normal sinus rhythm Normal ECG Confirmed by ARIES MACDONALD, INDRA ([id number]), desk editor FAM VELASQUEZ ([id number]) on 12/29/2020 8:28:30 AM Referred By: Blaine Lee Confirmed By:INDRA CHRIS MD
[2020-12-28 11:57] LABS: Hematocrit 37.4 % (40-54); Hemoglobin 12.3 g/dL (13.0-16.5); Mean Corp Hgb Conc 32.9 g/dL (32-36); Mean Corpuscular Hgb 30.4 pg (27.0-32.0); Mean Corpuscular Volume 92.3 fL (80-94); POSITIVE COUNT YES; Platelet Count 87 K/mm3 (150-450); RBC Distribution Width CV 12.2 % (11.6-14.6); RBC Distribution Width SD 41.4 fl (35.1-43.9); Red Blood Count 4.05 M/mm3 (4.6-6.2); White Blood Count 4.1 K/mm3 (4.4-11.0)
[2020-12-28 11:59] LABS: Scan Indicated on CBC? Y/N YES- FLAGS NOTED
[2020-12-28 12:08] LABS: Anion Gap 5 (5-15); BUN 15 mg/dL (7-18); BUN/Creat Ratio 18.2 RATIO (10-20); Calcium,Total 8.8 mg/dL (8.5-10.1); Chloride 104 mmol/L (98-107); Creatinine, Serum 0.83 mg/dL (0.70-1.30); EST Glomerular Filtration Rate 98 mL/min (>60); Est Glom Filt Rate - Afr Amer 119 mL/min (>60); Glucose 95 mg/dL (74-106); Potassium 4.3 mmol/L (3.5-5.1); Sodium Level 138 mmol/L (136-145)
[2020-12-30] VITALS (10 sets, daily range): BP systolic 105–146; BP diastolic 48–87; PULSE 63–84; RESP 16; TEMP 36.4–37.2; O2SAT 98–100; BMI 23.8
[2020-12-30 14:18] LABS: Hematocrit 37.9 % (40-54); Hemoglobin 12.8 g/dL (13.0-16.5); Mean Corp Hgb Conc 33.8 g/dL (32-36); Mean Corpuscular Hgb 30.8 pg (27.0-32.0); Mean Corpuscular Volume 91.3 fL (80-94); Mean Platelet Vol. 11.1 fl (6.2-12.0); Platelet Count 101 K/mm3 (150-450); RBC Distribution Width CV 12.3 % (11.6-14.6); RBC Distribution Width SD 40.8 fl (35.1-43.9); Red Blood Count 4.15 M/mm3 (4.6-6.2); White Blood Count 4.2 K/mm3 (4.4-11.0)
[2020-12-30] MEDS: Cefazolin 2 GM in 0.9% Normal Saline 100 ML IV (15:39)
--- NOTE | 2020-12-30 15:39 | HP.PCM_ITS ---
HPI - General HPI Narrative FRANCISCO CONNOR, is a 70 M who presentsWith BPH and obstruction with urinary retention plan to proceed with a TURP today. [facility] Medical History (Updated 12/30/20 @ 15:[address] Blaine Lee MD) Abnormal chest CT Atherosclerosis of coronary artery of [place] heart without angina pectoris Basal cell carcinoma of left ear Benign prostate hyperplasia Common variable immunodeficiency Hyperlipidemia Mass of upper lobe of right lung Parkinson disease Pneumonia Home Medications guar gum 2 gm PO BID 06/10/13 [History Last Taken Unknown] multivitamin with folic acid 1 tab PO DAILY 06/10/13 [History Last Taken Unknown] folic acid 1 tab PO DAILY 12/24/13 [History Last Taken Unknown] immune glob,gamma(IgG) 10 uxzi-gsl-olsd-IgA 0 to 50 mcg/mL IV solution 20 g .ROUTE .[id number] ea 03/04/19 [History Last Taken Unknown] rosuvastatin 40 mg tablet 40 mg PO DAILY 03/15/19 [History Last Taken Unknown] nitroglycerin 0.4 mg sublingual tablet 0.4 mg SUBLINGUAL Q5-15M PRN #25 tab 04/03/19 [Rx Last Taken Unknown] celecoxib 200 mg PO BID 06/14/19 [History Last Taken 12/24/20] carbidopa ER 25 mg-levodopa 100 mg tablet,extended release 1 tab PO TID tab 08/22/19 [History Last Taken 12/30/20 12:00] Gabapentin 300 mg PO TID 03/20/20 [History Last Taken Unknown] metoprolol succinate 25 mg tablet,extended release 24 hr 12.5 mg PO DAILY tab 03/30/20 [History Last Taken 12/30/20 08:00] lisinopril 2.5 mg tablet 2.5 mg PO DAILY #90 tab 12/04/20 [Rx Last Taken 12/30/20 08:00] tamsulosin 0.4 mg PO BID 12/24/20 [History Last Taken Unknown] ciprofloxacin HCl [Cipro] 500 mg PO BID #14 tab 12/30/20 [Rx Last Taken Unknown] ibuprofen 600 mg PO Q6H PRN #20 tab 12/30/20 [Rx Last Taken Unknown] Allergy/AdvReac Type Severity Reaction Status Date / Time No Known Allergies Allergy Verified 12/24/20 10:41 Family History Mother Heart disease valve replacement Father Parkinson disease Surgical History (Updated 12/12/20 @ 13:[address] Renata Ovalles MD) History of bilateral cataract extraction History of coronary artery stent placement (03/21/19) History of herniorrhaphy Social History (Updated 04/15/20 @ 14:[address] Emanuel Al, DO) Smoking Status: Never smoker Vital Signs Vital Signs Vital Signs: 12/30/20 14:16 Temperature 98.9 F Temperature Source Temporal Pulse Rate 63 Respiratory Rate 16 Respiratory Pattern Normal Blood Pressure 124/87 H Blood Pressure Mean 99 Blood Pressure Source Monitor Blood Pressure Position Semi-Fowlers Blood Pressure Location Right Arm Pulse Ox 100 Oxygen Delivery Method Room Air Physical Exam Const alert and oriented x3 General Appearance: cooperative HEENT normocephalic, head/scalp atraumatic, EAC's normal and TM's normal bilaterally Eyes PERRL and EOMs intact bilaterally Pupil: sluggish Neck no lymphadenopathy, supple and no JVD General: trachea midline Lymph Lymphatic: no lymphadenopathy noted, lymphedema and lymphadenopathy Resp normal respiratory effort, normal air movement and clear to auscultation bilaterally Cardio regular rate, regular rhythm and peripheral pulses 2+ throughout GI soft to palpation, non-tender and non-distended Extremity normal capillary refill and no clubbing, cyanosis or edema General Extremity: no tenderness to palpation of joints or extremities Skin no rashes or lesions noted General Skin Exam: turgor normal Lesions: no lesions Rashes: no rashes Neuro CN's II-XII intact bilaterally Speech: speech normal Motor Exam: strength 5/5 throughout; Negative for general weakness Psych thought process normal, cooperative and affect normal Appearance: appropriate Lab / Micro Data Result Diagrams: 12/30/20 14:00 12/28/20 10:30 Labs: Laboratory Results - last 24 hr 12/30/20 14:00 WBC 4.2 L RBC 4.15 L Hgb 12.8 L Hct 37.9 L MCV 91.3 MCH 30.8 MCHC 33.8 RDW Std Deviation 40.8 RDW Coeff of Lou 12.3 Plt Count 101 L MPV 11.1 Assessment & Plan Assessment/Plan (1) BPH loc w urin obs/LUTS: Status: Acute Code(s): N40.1 - Benign prostatic hyperplasia with lower urinary tract symptoms Plan: Plan to proceed with a TURP
--- NOTE | 2020-12-30 15:40 | PCM.DC ---
Discharge Instructions Outpatient Procedure Reason For Visit: CYSTO, TURP, OLYMPUS Procedure: Urology Diet Discharge Diet: No restrictions Activity Discharge Activity: May not drive while taking narcotic pain medications. (for 3 days.) May shower in (days): 1 Dressing / Incision Call your doctor if you observe: Fever of 101 or Higher, Numbness or Tingling, Shortness of breath, Dizziness, Calf discomfort and Uncontrolled pain Follow Up Care Please Follow Up With: Blaine Lee MD When: Call [phone] for an appointment Test Results: Test results from this visit will be discussed in further detail at your follow-up appointment, if applicable. Discharge Plan Admission Primary Reason for Your Visit: Turp Attending Provider: Blaine Lee Primary Care Provider: Mahesh Avendano Instructions Patient Instructions: Transurethral Resection of the Prostate (TURP): Home Recovery Discharge Orders/Prescriptions Prescriptions: New ciprofloxacin HCl [Cipro] 500 mg tablet 500 mg PO BID Qty: 14 RF: 0 ibuprofen 600 mg tablet 600 mg PO Q6H PRN (Reason: pain) Qty: 20 RF: 0 Continued carbidopa-levodopa 25-100 mg tablet extended release 1 tab PO TID RF: 0 rosuvastatin [Crestor] 40 mg tablet 40 mg PO DAILY RF: 0 nitroglycerin 0.4 mg tablet, sublingual 0.4 mg SUBLINGUAL Q5-15M PRN (Reason: chest pain) Qty: 25 RF: 3 metoprolol succinate 25 mg tablet extended release 24 hr 12.5 mg PO DAILY RF: 0 guar gum 1 GM tablet,chewable 2 gm PO BID RF: 0 multivitamin with folic acid 1 TABLET tablet 1 tab PO DAILY RF: 0 folic acid 0.4 MG tablet 1 tab PO DAILY RF: 0 celecoxib 200 MG capsule 200 mg PO BID RF: 0 Gabapentin 300 mg PO TID RF: 0 tamsulosin 0.4 MG capsule 0.4 mg PO BID RF: 0 lisinopril 2.5 mg tablet 2.5 mg PO DAILY Qty: 90 RF: 3 Discontinued aspirin [Adult Aspirin Regimen] 81 mg tablet,delayed release (DR/EC) 81 mg PO DAILY RF: 0 clopidogrel 75 mg tablet 75 mg PO DAILY Qty: 90 RF: 3 No Action immun glob V-jmo-berm-IgA 0-50 10 gram recon soln 20 g .Route .[id number] RF: 0 Referrals: Mahesh Avendano MD [Primary Care Provider] -
--- NOTE | 2020-12-30 15:50 | PROS_PTH ---
PATIENT: FRANCISCO CONNOR [place] [facility] [place] [facility] [place][id number] AGE/SX: 70/M ROOM: RE12/30/[address]: Dr. Blaine Lee MD : 1950 BED: DIS: 12/31/2020 SPEC #: [id number] RECD: 12/31/20 08:00 STATUS: ROMI CONTRERAS #: [id number] PRADIP: 12/30/20 15:[address]: Blaine Lee DEPT: SURGICAL PATHOLOGY RECD BY: Marlene Potter ENTERED: 12/31/20 08:40 SP TYPE: TURP OTHR DR: Dr. Mahesh Avendano MD Tissues: Prostate, NOS Procedures: Surgery Specimen Level IV HEADER OPERATION: Cysto, TUR prostate, Olymp[employer] PRE-OP DIAGNOSIS: BPH, bladder retention TISSUE SUBMITTED: Prostate tissue MICROSCOPIC DIAGNOSIS Prostate tissue, TUR: Benign prostatic hyperplasia, glandular and stromal type. Focal mild chronic inflammation and basal cell hyperplasia. SJ:[email or web address] 01/01/2021 MICROSCOPIC DESCRIPTION Slides are reviewed. GROSS DESCRIPTION Received is one container labeled with the patient's name and designated prostate tissue. The specimen consists of multiple irregular fragments of pink-singh, rubbery, soft tissue that in aggregate weigh 16.4 gm and measure in aggregate 6 x 6 x 3 cm. Insert Molding Operator tissue is submitted in ten cassettes. / ANN:kanwal 12/31/20 TC:5 CPT: 57522
--- NOTE | 2020-12-30 17:02 | PCM.OPRPT ---
Problems Associated Problem List Diagnoses (1) BPH loc w urin obs/LUTS: Report of Operation Date of Procedure: 12/30/20 Pre-Operative Diagnosis: BPH with obstruction Post-Operative Diagnosis: Same Surgery/Procedure Performed:: Dr. Lee surgeon Transurethral resection of the prostate Description of Surgical Findings:: In the preoperative setting I discussed with the patient how the surgery would be done with expect afterwards. We discussed how a prostate resection is done and we discussed the risk of the surgery including, bleeding, infection, retrograde ejaculation, changes with ejaculation or intercourse,. We discussed the possibility that the resection of the prostate may not alleviate his urinary symptoms. We discussed the small risk of developing scar tissue along the urethral channel and strictures. We also discussed the chance of the prostate could grow back and he may need further surgery or treatment in the future for prostate problems. Patient was taken back to the operating room, timeout procedure was performed, he was identified and marked and placed on the operating room table. He underwent general anesthesia. He was placed in dorsolithotomy position. Penis and testicles were prepped and draped in usual sterile fashion. Went into the bladder using the visual obturator with a resectoscope. Once inside the bladder identified the right and left ureteral orifice. I then identified the prostate and the anatomy of the prostate. I marked out the area of the sphincter and the verumontanum was identified. I then proceeded with the prostate resection first resected the median lobe. And then resected the right lobe of the prostate. Then to resect the left lobe of the prostate. I then resected the apical tissue of the prostate. Made sure that there was no injury to the sphincter or the verumontanum was still intact. At the end of the resection all the chips were Ellik out of the bladder. I then identified the left and right ureteral orifice and these were confirmed to be in good position and effluxing and not injured. The resectoscope was removed, a 22 Swedish catheter was placed into the bladder on continuous irrigation. And the urine was fairly light pink color and draining normally. He was taken back to the PACU in good condition. Type of Anesthesia: General Special Medications: Prostate chips Drains: 22 Swedish three-way catheter Admit VTE Documentation VTE Present on Admission: No VTE Mechan Device Prophylaxis: SCD's
[2020-12-30] MEDS: 0.9% Normal Saline 1,000 ML 125 ML IV (18:40)
[2020-12-30] MEDS: Carbidopa/Levodopa 25/100 Tablet PO (19:06)
[2020-12-30] MEDS: Acetaminophen 325 MG Tablet PO (20:04)
[2020-12-30] MEDS: Tamsulosin HCl 0.4 MG Capsule PO (22:37)
[2020-12-30] MEDS: Ciprofloxacin 400 MG/200 ML BAG 200 MG IV (22:37)
[2020-12-30] MEDS: Gabapentin 300 MG Capsule PO (22:37)
[2020-12-30] MEDS: Atorvastatin Calcium 80 MG Tablet PO (22:37)
[2020-12-31] MEDS: 0.9% Normal Saline 1,000 ML 125 ML IV (02:54)
[2020-12-31] MEDS: Acetaminophen 325 MG Tablet PO (03:00)
[2020-12-31 03:05] VITALS: BP 110/48; PULSE 75; RESP 16; TEMP 37.1; O2SAT 97
[2020-12-31] MEDS: Carbidopa/Levodopa 25/100 Tablet PO (06:38)
[2020-12-31] MEDS: Gabapentin 300 MG Capsule PO (06:38)
[2020-12-31 09:05] VITALS: BP 113/56; PULSE 67; RESP 16; TEMP 36.8; O2SAT 95
[2020-12-31 09:44] VITALS: BP 113/56; PULSE 67
[2020-12-31] MEDS: Tamsulosin HCl 0.4 MG Capsule PO (09:44)
[2020-12-31] MEDS: Metoprolol(XL)Succ 25 MG Tablet 12.5 MG PO (09:44)
[2020-12-31] MEDS: Multivitamins,Therapeutic Tablet 1 TABLET PO (09:44)
[2020-12-31] MEDS: Lisinopril 2.5 MG Tablet PO (09:44)
[2020-12-31] MEDS: Ciprofloxacin 400 MG/200 ML BAG 200 MG IV (09:45)
[2020-12-31 12:06] VITALS: BP 113/56; PULSE 67; RESP 18; TEMP 36.8; O2SAT 95
== END 2020-12-31 12:11 | disposition home or self-care (01) ==
LOC: SDC 13:27 → AC 13:28 → MS3 17:12
PROVIDERS: Anesthesiology; PCP Family Medicine; Referring Provider Urology; Visit Provider Urology
PROC: (CPT 52630; principal; 2020-12-30 15:40)
DX: N40.1 Benign prostatic hyperplasia with lower urinary tract symptoms (principal); N13.8 Other obstructive and reflux uropathy; R33.8 Other retention of urine; N41.1 Chronic prostatitis; I25.10 Atherosclerotic heart disease of native coronary artery without angina pectoris; D83.9 Common variable immunodeficiency, unspecified; E78.5 Hyperlipidemia, unspecified; G20 Parkinson's disease; Z79.899 Other long term (current) drug therapy; Z95.5 Presence of coronary angioplasty implant and graft
CPT/HCPCS: 00914; 52630; 36415; 80048; 85027; 88305; 93005; 99251; J7030; J7120; G0463; J0744

== ENCOUNTER → 2021-01-08 11:11 | Outpatient (CLI) | payer MEDICARE, OTHER, SELFPAY ==
[2019-03-11 14:03] VITALS: BMI 24.3
[2020-11-05 13:23] VITALS: BMI 24.3
[2021-01-05 09:10] VITALS: BMI 24.5
[2021-01-08 11:19] VITALS: BP 124/63; PULSE 59; RESP 16; TEMP 36.8; O2SAT 99; BMI 24.3
[2021-01-08] MEDS: 0.9% NaCl Peripheral Flush Adult/Peds IV (11:30)
[2021-01-08] MEDS: Immune Globulin 20 gm Premixed Solution 66 BAG IV (11:31)
[2021-01-08 12:05] VITALS: BP 118/51; PULSE 60; RESP 16; TEMP 36.7; O2SAT 99
[2021-01-08 13:16] VITALS: BP 111/50; PULSE 64; RESP 16; TEMP 36.2; O2SAT 100
== END ==
PROVIDERS: PCP Family Medicine; Referring Provider Family Medicine; Visit Provider Family Medicine
DX: D83.9 Common variable immunodeficiency, unspecified (principal)
CPT/HCPCS: 96365; 96366; A4216; J1568

== ENCOUNTER → 2021-01-18 06:48 | Outpatient (CLI) | payer MEDICARE, OTHER, SELFPAY ==
[2019-03-11 14:03] VITALS: BMI 24.3
[2021-01-05 09:10] VITALS: BMI 24.5
[2021-01-08 11:19] VITALS: BMI 24.3
--- NOTE | 2021-01-18 15:27 | STRESSREP ---
Stress Test Report Pharmacologic myocardial perfusion stress test. 70-year-old with a history of chest pain. Stress protocol: Resting EKG demonstrates normal sinus rhythm with rate of 67 bpm normal intervals are noted resting blood pressure is 132/78 mmHg. 0.4 mg of regadenoson was infused per usual protocol followed by rapid intravenous saline flush injection continuous EKG monitoring was performed. The maximum heart rate was 93 bpm which was 61% of maximum protected heart rate the maximum workload was 1 metabolic equivalent. At rest there were no ST or T wave changes noted to suggest abnormal flow reserve. Myocardial perfusion protocol. 11.2 mCi of technetium 99m sestamibi was injected at rest. 0.4 mg of regadenoson was infused per usual protocol. At peak infusion 32.3 mCi of technetium 99m sestamibi was injected stress images were obtained stress and rest images were reconstructed and compared in the short axis vertical long and horizontal long axis. Gated images were also obtained. Perfusion SPECT analysis: Review of the stress images demonstrate normal uptake of tracer noted in all areas of the myocardium. The resting images similarly demonstrate normal uptake of tracer noted in all areas of the myocardium. No areas of reversibility are noted to suggest ischemia. No previous infarct is noted. Gated SPECT analysis: The gated ejection fraction is 72%. Conclusion: Normal pharmacologic myocardial perfusion stress test. Preserved ejection fraction.
== END ==
PROVIDERS: PCP Family Medicine; Referring Provider Physician Assistant Medical; Visit Provider Physician Assistant Medical
DX: I25.119 Atherosclerotic heart disease of native coronary artery with unspecified angina pectoris (principal)
CPT/HCPCS: 78452; 93017; A9500; A4216; J2785

== ENCOUNTER → 2021-02-05 11:09 | Outpatient (CLI) | payer MEDICARE, OTHER, SELFPAY ==
[2019-03-11 14:03] VITALS: BMI 24.3
[2021-01-05 09:10] VITALS: BMI 24.5
[2021-01-08 11:19] VITALS: BMI 24.3
[2021-02-05 11:29] VITALS: BP 139/68; PULSE 63; RESP 16; TEMP 36.9; O2SAT 98; BMI 24.3
[2021-02-05] MEDS: 0.9% NaCl PICC Flush IV (11:32)
[2021-02-05] MEDS: Immune Globulin 20 gm Premixed Solution 34.2 BAG IV (11:39)
== END ==
PROVIDERS: PCP Family Medicine; Referring Provider Family Medicine; Visit Provider Family Medicine
DX: D83.9 Common variable immunodeficiency, unspecified (principal)
CPT/HCPCS: 96365; 96366; A4216; J1568

== ENCOUNTER → 2021-03-05 10:59 | Outpatient (CLI) | payer MEDICARE, OTHER, SELFPAY ==
[2019-03-11 14:03] VITALS: BMI 24.3
[2021-01-08 11:19] VITALS: BMI 24.3
[2021-02-16 10:08] VITALS: BMI 24.3
[2021-03-05] MEDS: Immune Globulin 20 gm Premixed Solution 68.4 BAG IV (11:30)
[2021-03-05 11:35] VITALS: BP 136/61; PULSE 58; RESP 16; TEMP 36.8; O2SAT 99; BMI 24.3
[2021-03-05] MEDS: 0.9% NaCl Peripheral Flush Adult/Peds IV (11:35)
== END ==
PROVIDERS: PCP Family Medicine; Referring Provider Family Medicine; Visit Provider Family Medicine
DX: D83.9 Common variable immunodeficiency, unspecified (principal)
CPT/HCPCS: 96365; 96366; A4216; J1568

== ENCOUNTER → 2021-04-09 10:24 | Outpatient (CLI) | payer MEDICARE, OTHER, SELFPAY ==
[2019-03-11 14:03] VITALS: BMI 24.3
[2021-02-16 10:08] VITALS: BMI 24.3
[2021-03-05 11:35] VITALS: BMI 24.3
[2021-04-09] MEDS: Immune Globulin 20 gm Premixed Solution 68.4 BAG IV (10:43)
[2021-04-09 10:46] VITALS: BP 114/55; PULSE 58; RESP 16; TEMP 37; O2SAT 97; BMI 24.3
== END ==
PROVIDERS: PCP Family Medicine; Referring Provider Family Medicine; Visit Provider Family Medicine
DX: D83.9 Common variable immunodeficiency, unspecified (principal)
CPT/HCPCS: 96365; 96366; A4216; J1568

== ENCOUNTER → 2021-05-07 11:01 | Outpatient (CLI) | payer MEDICARE, OTHER, SELFPAY ==
[2019-03-11 14:03] VITALS: BMI 24.3
[2021-03-05 11:35] VITALS: BMI 24.3
[2021-05-07] MEDS: Immune Globulin 20 gm Premixed Solution 68.4 BAG IV (11:27)
[2021-05-07 11:30] VITALS: BP 118/58; PULSE 60; RESP 16; TEMP 36.4; O2SAT 98; BMI 24.3
== END ==
PROVIDERS: PCP Family Medicine; Referring Provider Family Medicine; Visit Provider Family Medicine
DX: D83.9 Common variable immunodeficiency, unspecified (principal)
CPT/HCPCS: 96365; 96366; A4216; J1568

== ENCOUNTER → 2021-06-04 11:07 | Outpatient (CLI) | payer MEDICARE, OTHER, SELFPAY ==
[2019-03-11 14:03] VITALS: BMI 24.3
[2020-12-03 13:37] VITALS: BMI 24.3
[2021-06-04] MEDS: 0.9% NaCl Peripheral Flush Adult/Peds IV (11:19)
[2021-06-04 11:22] VITALS: BP 131/58; PULSE 58; RESP 16; TEMP 36.4; O2SAT 100; BMI 24.4
[2021-06-04] MEDS: Immune Globulin 20 gm Premixed Solution 68.4 BAG IV (11:40)
== END ==
PROVIDERS: PCP Family Medicine; Visit Provider Nurse Practitioner Adult Health
DX: D83.9 Common variable immunodeficiency, unspecified (principal)
CPT/HCPCS: 96365; 96366; A4216; J1568

== ENCOUNTER → 2021-07-09 11:01 | Outpatient (CLI) | payer MEDICARE, OTHER, SELFPAY ==
[2019-03-11 14:03] VITALS: BMI 24.3
[2021-07-09 11:10] VITALS: BP 140/72; PULSE 59; RESP 16; TEMP 35.8; O2SAT 98
[2021-07-09] MEDS: 0.9% NaCl Peripheral Flush Adult/Peds IV (11:23)
[2021-07-09] MEDS: Immune Globulin 20 gm Premixed Solution 68.4 BAG IV (11:35)
== END ==
PROVIDERS: PCP Family Medicine; Referring Provider Family Medicine; Visit Provider Family Medicine
DX: D83.9 Common variable immunodeficiency, unspecified (principal)
CPT/HCPCS: 96365; 96366; A4216; J1568

== ENCOUNTER → 2021-08-06 11:07 | Outpatient (CLI) | payer MEDICARE, OTHER, SELFPAY ==
[2019-03-11 14:03] VITALS: BMI 24.3
[2021-08-06 11:12] VITALS: BP 132/63; PULSE 68; RESP 16; TEMP 36.4; O2SAT 100
[2021-08-06] MEDS: 0.9% NaCl Peripheral Flush Adult/Peds IV ×2 (11:15→11:33)
[2021-08-06] MEDS: Immune Globulin 20 gm Premixed Solution 68 BAG IV (11:32)
== END ==
PROVIDERS: PCP Family Medicine; Referring Provider Family Medicine; Visit Provider Family Medicine
DX: D83.9 Common variable immunodeficiency, unspecified (principal)
CPT/HCPCS: 96365; 96366; A4216; J1568

== ENCOUNTER 2021-09-10 11:02 | Outpatient (CLI) | payer MEDICARE, OTHER, SELFPAY ==
[2019-03-11 14:03] VITALS: BMI 24.3
[2021-09-10] MEDS: 0.9% NaCl Peripheral Flush Adult/Peds IV (11:32)
[2021-09-10] MEDS: Immune Globulin 20 gm Premixed Solution 68.4 BAG IV (11:32)
[2021-09-10 11:35] VITALS: BP 116/65; PULSE 56; RESP 16; TEMP 36.9; O2SAT 95; BMI 24.7
== END 2021-09-10 23:59 | disposition short-term general hospital (02) ==
LOC: MEDOUTP 11:04
PROVIDERS: PCP Family Medicine; Referring Provider Family Medicine; Visit Provider Family Medicine
DX: D83.9 Common variable immunodeficiency, unspecified (principal)
CPT/HCPCS: 96365; 96366; A4216; J1568

== ENCOUNTER 2021-10-08 10:16 | Outpatient (CLI) | payer MEDICARE, OTHER, SELFPAY ==
[2019-03-11 14:03] VITALS: BMI 24.3
[2021-10-08 10:20] VITALS: BP 115/67; PULSE 75; RESP 16; TEMP 35.8; O2SAT 99
[2021-10-08] MEDS: 0.9% NaCl Peripheral Flush Adult/Peds IV ×2 (10:26→10:36)
[2021-10-08] MEDS: Immune Globulin 20 gm Premixed Solution 68.4 BAG IV (10:37)
[2021-10-08 12:15] VITALS: BP 123/57; PULSE 62; TEMP 35.9; O2SAT 98
== END 2021-10-08 23:59 | disposition short-term general hospital (02) ==
LOC: MEDOUTP 10:16
PROVIDERS: PCP Family Medicine; Referring Provider Family Medicine; Visit Provider Family Medicine
DX: D83.9 Common variable immunodeficiency, unspecified (principal)
CPT/HCPCS: 96365; 96366; A4216; J1568

== ENCOUNTER 2021-11-05 10:58 | Outpatient (CLI) | payer MEDICARE, OTHER, SELFPAY ==
[2019-03-11 14:03] VITALS: BMI 24.3
[2021-11-05 11:17] VITALS: BP 120/56; PULSE 63; RESP 16; TEMP 36.9; O2SAT 100; BMI 24.7
[2021-11-05] MEDS: Immune Globulin 20 gm Premixed Solution 34.2 BAG IV (12:05)
== END 2021-11-05 23:59 | disposition home or self-care (01) ==
LOC: MEDOUTP 10:58
PROVIDERS: PCP Family Medicine; Referring Provider Family Medicine; Visit Provider Family Medicine
DX: D83.9 Common variable immunodeficiency, unspecified (principal)
CPT/HCPCS: 96365; 96366; J1568

== ENCOUNTER 2021-12-02 08:58 | Outpatient (CLI) | payer MEDICARE, OTHER, SELFPAY ==
[2019-03-11 14:03] VITALS: BMI 24.3
[2021-12-02 10:07] LABS: Absolute Lymphocyte Count 0.87 X10^3/uL (0.83-4.51); Absolute Neutrophil Count 4.2 X10^3/uL (2.0-7.7); Basophil# 0.01 X10^3/uL; Basophil% 0.2 % (0-1); Hematocrit 40.8 % (40-54); Hemoglobin 13.6 g/dL (13.0-16.5); Lymphocyte # 0.87 X10^3/ul (0.83-4.51); Lymphocyte % 15.7 % (19-41); Mean Corp Hgb Conc 33.3 g/dL (32-36); Mean Corpuscular Hgb 30.6 pg (27.0-32.0); Mean Corpuscular Volume 91.9 fL (80-94); Mean Platelet Vol. 11.9 fl (6.2-12.0); Monocyte# 0.43 X10^3/uL; Monocyte% 7.8 % (0-10); NRBC Flagged by Analyzer 0 % (0-5); Neutrophil # 4.19 X10^3/uL (2.7-7.7); Neutrophil % 75.8 % (47-70); Platelet Count 105 K/mm3 (150-450); RBC Distribution Width CV 12.8 % (11.6-14.6); RBC Distribution Width SD 43.1 fl (35.1-43.9); Red Blood Count 4.44 M/mm3 (4.6-6.2); White Blood Count 5.5 K/mm3 (4.4-11.0)
[2021-12-02 10:46] LABS: ALB/GLOB Ratio 1.2 RATIO (0.9-2.4); AST(SGOT) 34 U/L (15-37); Alanine Aminotransfer ALT/SGPT 15 U/L (16-61); Albumin, Serum 3.7 g/dL (3.2-5.0); Alkaline Phosphatase 65 U/L (45-117); Anion Gap 4 (5-15); BUN 22 mg/dL (7-18); BUN/Creat Ratio 26.2 RATIO (10-20); Calcium,Total 8.8 mg/dL (8.5-10.1); Chloride 106 mmol/L (98-107); Cholesterol 80 mg/dL (200); Creatinine, Serum 0.84 mg/dL (0.70-1.30); EST Glomerular Filtration Rate 96 mL/min (>60); Est Glom Filt Rate - Afr Amer 116 mL/min (>60); Globulin 3.1 g/dL (2.2-4.2); Glucose 94 mg/dL (74-106); High Density Lipoprotein 27 mg/dL; PSA,Total- Diagnostic 3.21 ng/mL (0.0-4.0); Potassium 4.3 mmol/L (3.5-5.1); Protein, Total 6.8 g/dL (6.4-8.2); Sodium Level 136 mmol/L (136-145); Triglycerides 99 mg/dL; Very Low Density Lipoprotein 20 mg/dL (5-40)
[2021-12-03 17:07] LABS: Absolute CD4 Helper 284 /uL (359-1519); Basophils (Absolute) 0 x10E3/uL (0.0-0.2); CD4/CD8 Ratio 0.88 (0.92-3.72); Eosinophils 0 % (Not Estab.); Eosinophils (Absolute) 0 x10E3/uL (0.0-0.4); Hematocrit 41.1 % (37.5-51.0); Hemoglobin 13.6 g/dL (13.0-17.7); Immature Granulocytes 0 % (Not Estab.); Immature Granulocytes Absolute 0 x10E3/uL (0.0-0.1); Immunoglobulin G 723 mg/dL (603-1613); Lymphs 18 % (Not Estab.); MCH 30.8 pg (26.6-33.0); MCHC 33.1 g/dL (31.5-35.7); MCV 93 fL (79-97); Monocytes 7 % (Not Estab.); Monocytes (Absolute) 0.4 x10E3/uL (0.1-0.9); Neutrophils 75 % (Not Estab.); Neutrophils (Absolute) 4.4 x10E3/uL (1.4-7.0); Percent % CD4 Pos. Lymph. 28.4 % (30.8-58.5); Percent % CD8 Pos. Lymph. 32.3 % (12.0-35.5); Platelets 103 x10E3/uL (150-450); RBC Count 4.41 x10E6/uL (4.14-5.80); WBC Count 5.9 x10E3/uL (3.4-10.8)
[2021-12-03 18:25] LABS: Immunoglobulin A < 5 mg/dL (61-437); Immunoglobulin M < 5 mg/dL (20-172)
== END 2021-12-02 23:59 | disposition home or self-care (01) ==
LOC: MFPLAB 08:59
PROVIDERS: PCP Family Medicine; Referring Provider Family Medicine; Visit Provider Family Medicine
DX: R97.20 Elevated prostate specific antigen [PSA] (principal); D83.8 Other common variable immunodeficiencies; G90.3 Multi-system degeneration of the autonomic nervous system; E78.00 Pure hypercholesterolemia, unspecified
CPT/HCPCS: 36415; 80053; 80061; 82784; 84153; 85025; 86360

== ENCOUNTER 2021-12-03 10:55 | Outpatient (CLI) | payer MEDICARE, OTHER, SELFPAY ==
[2019-03-11 14:03] VITALS: BMI 24.3
[2021-12-03 11:12] VITALS: BP 142/70; PULSE 72; RESP 16; TEMP 36.7; O2SAT 97; BMI 24.3
[2021-12-03] MEDS: 0.9% NaCl Peripheral Flush Adult/Peds IV (11:17)
[2021-12-03] MEDS: Immune Globulin 20 gm Premixed Solution 68 BAG IV (11:27)
== END 2021-12-03 23:59 | disposition home or self-care (01) ==
LOC: MEDOUTP 10:56
PROVIDERS: PCP Family Medicine; Referring Provider Family Medicine; Visit Provider Family Medicine
DX: D83.9 Common variable immunodeficiency, unspecified (principal)
CPT/HCPCS: 96365; 96366; A4216; J1568

== ENCOUNTER → 2022-01-07 | Outpatient (CLI) | payer MEDICARE, OTHER, SELFPAY ==
[2019-03-11 14:03] VITALS: BMI 24.3
[2022-01-07 11:04] VITALS: BP 128/61; PULSE 68; RESP 16; TEMP 36.4; O2SAT 96
[2022-01-07] MEDS: 0.9% NaCl Peripheral Flush Adult/Peds IV (11:15)
[2022-01-07] MEDS: Immune Globulin 20 gm Premixed Solution 68 BAG IV (11:19)
== END | disposition home or self-care (01) ==
LOC: MEDOUTP 10:58
PROVIDERS: PCP Family Medicine; Referring Provider Family Medicine; Visit Provider Family Medicine
DX: D83.9 Common variable immunodeficiency, unspecified (principal)
CPT/HCPCS: 96365; 96366; A4216; J1568

== ENCOUNTER → 2022-02-04 | Outpatient (CLI) | payer MEDICARE, OTHER, SELFPAY ==
[2019-03-11 14:03] VITALS: BMI 24.3
[2022-02-04 10:46] VITALS: BP 108/48; PULSE 60; RESP 16; TEMP 36.8; O2SAT 97; BMI 24.1
[2022-02-04] MEDS: 0.9% NaCl Peripheral Flush Adult/Peds IV (10:54)
[2022-02-04] MEDS: Immune Globulin 20 gm Premixed Solution 68 BAG IV (11:04)
== END | disposition home or self-care (01) ==
LOC: MEDOUTP 10:34
PROVIDERS: PCP Family Medicine; Referring Provider Family Medicine; Visit Provider Family Medicine
DX: D83.9 Common variable immunodeficiency, unspecified (principal)
CPT/HCPCS: 96365; 96366; A4216; J1568

== ENCOUNTER → 2022-03-04 | Outpatient (CLI) | payer MEDICARE, OTHER, SELFPAY ==
[2019-03-11 14:03] VITALS: BMI 24.3
[2022-03-04] MEDS: 0.9% NaCl Peripheral Flush Adult/Peds IV (11:13)
[2022-03-04] MEDS: Immune Globulin 20 gm Premixed Solution 68 BAG IV (11:21)
[2022-03-04 11:24] VITALS: BP 126/54; PULSE 65; RESP 14; TEMP 36.9; O2SAT 96; BMI 24.3
== END | disposition home or self-care (01) ==
LOC: MEDOUTP 11:02
PROVIDERS: PCP Family Medicine; Referring Provider Family Medicine; Visit Provider Family Medicine
DX: D83.9 Common variable immunodeficiency, unspecified (principal)
CPT/HCPCS: 96365; 96366; A4216; J1568

== ENCOUNTER → 2022-04-08 | Outpatient (CLI) | payer MEDICARE, OTHER, SELFPAY ==
[2019-03-11 14:03] VITALS: BMI 24.3
[2022-04-08] MEDS: Immune Globulin 20 gm Premixed Solution 68 BAG IV (11:28)
[2022-04-08] MEDS: 0.9% NaCl Peripheral Flush Adult/Peds IV (11:29)
[2022-04-08 11:31] VITALS: BP 118/57; PULSE 68; TEMP 35.9; O2SAT 98
== END | disposition home or self-care (01) ==
LOC: MEDOUTP 11:05
PROVIDERS: PCP Family Medicine; Referring Provider Family Medicine; Visit Provider Family Medicine
DX: D83.9 Common variable immunodeficiency, unspecified (principal)
CPT/HCPCS: 96365; 96366; A4216; J1568

== ENCOUNTER → 2022-04-20 | Outpatient (CLI) | payer MEDICARE, OTHER, SELFPAY ==
[2019-03-11 14:03] VITALS: BMI 24.3
--- NOTE | 2022-04-20 12:41 | ECHOCS_ITS ---
Reason For Study: Murmur Procedure This was a 2D Doppler, Color Flow transthoracic echocardiogram. The study was technically difficult. Contrast injection was performed. Exam performed in department. Left Ventricle Normal LV size. Left ventricular systolic function is normal. The estimated ejection fraction is 60 %. Stage 1 diastolic dysfunction. No regional wall motion abnormalities noted. Right Ventricle Normal RV size. Normal systolic function. Atria Normal left atrium. Normal right atrium. Mitral Valve Normal mitral valve. Aortic Valve Trisinus/trileaflet aortic valve. Mild diffuse aortic valve thickening. Mild (1+) eccentric aortic valve insufficiency. Pulmonic Valve Normal pulmonic valve. Great Vessels Normal aortic root. The pulmonary artery is normal size. Normal inferior vena cava. Pericardium/Pleural No pericardial effusion. Medication 20 gauge I.V. with prn adaptor inserted into right arm. Diluted definity 2ml given slow IV push to enhance endocardial definition. MMode/2D Measurements & Calculations LVIDd: 4.4 cm IVSd: 1.0 cm LVOT diam: 2.0 cm LVIDs: 2.8 cm LVPWd: 1.0 cm LVOT area: 3.1 cm2 RVDd: 3.2 cm FS: 37.3 % Ao root diam: 2.9 cm LAV(MOD-bp): 30.5 ml LA A4 area: 12.7 cm2 LA dimension: 3.6 cm LAV(MOD-bp) Indexed: 16.8 ml/m2 LAV(MOD-sp2): 24.2 ml LAV(MOD-sp4): 29.1 ml RA A4 area: 10.4 cm2 Time Measurements MV dec time: 0.22 sec Doppler Measurements & Calculations MV E max perico: 72.5 cm/sec Lat Peak E' Perico: 8.9 cm/sec Med Peak E' Perico: 9.3 cm/sec MV A max perico: 86.9 cm/sec E/E' lat: 8.2 E/E' med: 7.8 MV E/A: 0.83 MV V2 max: 88.0 cm/sec MV P1/2t max perico: 77.8 cm/sec Ao V2 max: 185.1 cm/sec MV max P.1 mmHg MV P1/2t: 66.6 msec Ao max P.7 mmHg MV V2 mean: 45.5 cm/sec MV dec slope: 342.0 cm/sec2 Ao V2 mean: 134.3 cm/sec MV mean P.0 mmHg Ao mean P.1 mmHg MV V2 VTI: 26.7 cm MVA(P1/2t): 3.3 cm2 Ao V2 VTI: 44.8 cm MVA(VTI): 2.5 cm2 DONALD(I,D): 1.5 cm2 DONALD(V,D): 1.7 cm2 AI max perico: 209.1 cm/sec LV V1 max: 100.7 cm/sec SV(LVOT): 66.8 ml AI max P.5 mmHg LV V1 max P.1 mmHg LV V1 mean P.3 mmHg AI dec slope: 97.1 cm/sec2 LV V1 mean: 72.2 cm/sec AI P1/2t: 630.7 msec LV V1 VTI: 21.8 cm PA V2 max: 61.2 cm/sec ECHO/Echo Complete W/ Contrast Interpretation Summary Normal LV size. Left ventricular systolic function is normal. The estimated ejection fraction is 60 %. Mild (1+) eccentric aortic valve insufficiency. Mild diffuse aortic valve thickening. Stage 1 diastolic dysfunction. Ordering Physician: Lory He Referring Physician: Mahesh Avendano Performed By: Brijesh Aragon RCS
--- NOTE | 2022-04-20 12:41 | CDU_ITS ---
Reason For Study: Bruit Rt. Velocities/BP Lt. Velocities/BP Prox CCA 79/11 cm/sec. Prox CCA 110/14 cm/sec. Mid CCA 87/16 cm/sec. Mid CCA 113/21 cm/sec. Dist CCA 91/14 cm/sec. Dist CCA 100/17 cm/sec. Prox ICA 173/36 cm/sec. Prox ICA 134/16 cm/sec. Mid ICA 147/25 cm/sec. Mid ICA 113/23 cm/sec. Dist ICA 145/23 cm/sec. Dist ICA 90/27 cm/sec. Rt. ICA/CCA = 1.99. Lt. ICA/CCA = 1.2. Prox ECA 168/8 cm/sec. Prox ECA 138/6 cm/sec. Rt. Vert. 56/15 cm/sec. Lt. Vert. 58/10 cm/sec. Right Extracranial There is heterogeneous, irregular atherosclerotic plaque noted in the right common carotid artery. There is heterogeneous, irregular atherosclerotic plaque noted in the right internal carotid artery. There is heterogeneous, irregular atherosclerotic plaque noted in the right external carotid artery. Antegrade flow is noted in the right vertebral artery. Left Extracranial There is heterogeneous, irregular atherosclerotic plaque noted in the left common carotid artery. There is heterogeneous, irregular atherosclerotic plaque noted in the left internal carotid artery. There is heterogeneous, irregular atherosclerotic plaque noted in the left external carotid artery. Antegrade flow is noted in the left vertebral artery. VL/Carotid Duplex Ultrasound Interpretation Summary Moderate (50-69%) stenosis right extracranial internal carotid. Moderate (50-69%) stenosis left extracranial internal carotid. Patent and antegrade vertebrals bilaterally. Ordering Physician: Lory He Referring Physician: Mahesh Avendano Performed By: Melanie Kelley, EMANUEL, RVT
== END | disposition home or self-care (01) ==
LOC: CVS 12:39
PROVIDERS: PCP Family Medicine; Referring Provider Physician Assistant Medical; Visit Provider Physician Assistant Medical
DX: I65.23 Occlusion and stenosis of bilateral carotid arteries (principal); R01.1 Cardiac murmur, unspecified; R09.89 Other specified symptoms and signs involving the circulatory and respiratory systems; I25.10 Atherosclerotic heart disease of native coronary artery without angina pectoris
CPT/HCPCS: 93306; 93880; Q9957; A4216; C8929

== ENCOUNTER → 2022-05-06 | Outpatient (CLI) | payer MEDICARE, OTHER, SELFPAY ==
[2019-03-11 14:03] VITALS: BMI 24.3
[2022-05-06] MEDS: Immune Globulin 20 gm Premixed Solution 68 BAG IV (11:31)
[2022-05-06] MEDS: 0.9% NaCl Peripheral Flush Adult/Peds IV ×2 (11:32→11:34)
== END | disposition home or self-care (01) ==
LOC: MEDOUTP 11:05
PROVIDERS: PCP Family Medicine; Referring Provider Family Medicine; Visit Provider Family Medicine
DX: D83.9 Common variable immunodeficiency, unspecified (principal)
CPT/HCPCS: 96365; 96366; A4216; J1568

== ENCOUNTER → 2022-06-07 | Outpatient (CLI) | payer MEDICARE, OTHER, SELFPAY ==
[2019-03-11 14:03] VITALS: BMI 24.3
== END | disposition home or self-care (01) ==
LOC: RAD 12:50
PROVIDERS: PCP Family Medicine; Visit Provider Family Medicine
DX: G20 Parkinson's disease (principal)
CPT/HCPCS: 74230

== ENCOUNTER → 2022-06-10 | Outpatient (CLI) | payer MEDICARE, OTHER, SELFPAY ==
[2019-03-11 14:03] VITALS: BMI 24.3
[2022-06-10] MEDS: 0.9% NaCl Peripheral Flush Adult/Peds IV (11:07)
[2022-06-10 11:18] VITALS: BP 127/59; PULSE 66; RESP 12; TEMP 36.8; O2SAT 99; BMI 24.4
[2022-06-10] MEDS: Immune Globulin 20 gm Premixed Solution 68 BAG IV (11:21)
== END | disposition home or self-care (01) ==
LOC: MEDOUTP 10:54
PROVIDERS: PCP Family Medicine; Referring Provider Family Medicine; Visit Provider Family Medicine
DX: D83.9 Common variable immunodeficiency, unspecified (principal)
CPT/HCPCS: 96365; 96366; A4216; J1568

== ENCOUNTER 2022-07-04 11:00 | Outpatient (RCR) | payer MEDICARE, OTHER, SELFPAY ==
[2019-03-11 14:03] VITALS: BMI 24.3
--- NOTE | 2022-05-11 14:31 | HP.SP.EVAL ---
History - History Date of Eval: 05/04/22 Medical Diagnosis (from RX): Dysphonia Date of Onset of Diagnosis: 2017 Previous speech therapy: No Other Relevant Medical History/Diagnoses/Surgery: 3 stents, pnuemonia x6 ( over 20 years, most recent 15 years ago approximately), Medications related to this diagnosis: carbidopa - levodopa x3 daily Smoking Status: Never smoker Hx Smoking: No Hx Tobacco Use: No Hx Smoking Exposure: No - Pain Is pain an issue with your current prescribed condition?: Yes Patient Allergies - Allergies Allergies No Known Allergies Allergy (Verified 03/16/22 11:22) Subjective Dysphagia - Symptoms Reported Symptoms/Problems with: Food gets stuck - Current Diet Solids Current Diet: Regular - Current Diet Liquids Current Liquids: Thin Objective Dysphagia - Recommendations Modified Barium Swallow/Cookie Swallow Recommended: Yes N-LYNNE - [place] Dysarthria Assessment Tool Intelligibility:: Intelligible w/some difficulty - Phonation: Phonation: Variable Pitch: Adequate Quality: Adequate Sustained Volume: Able - Resonance: Resonance: Nasality: Adequate - Prosody: Prosody: Ability to vary: Reduced - Articulation: Rate of speech: Variable Phrase length: Adequate Objective Voice - Date of Diagnosis Previous Speech Therapy (If yes, describe): No - Medications Familiar with on/off effect: Yes - Implantation Deep brain implantation (If yes, answer next question): No - Objective data Objective Data: Objective data: Sound pressure level (SPL acoustic correlation of vocal loudness) was measured with a sound level meter at a distance of 40 cm from the patient's mouth. Average conversational loudness is 70-80 dB and sustained phonation duration is 15 to 20 seconds for a typical adult. Sustained Phonation Intensity (dB SPL): 63 Sustained Phonatin duration (seconds): 15 Is the individual stimulable to increase vocal intensity: Yes Vocal Intensity at Conversational Level (dB SPL): 66 Subjective Clinical Impression - Adult Clinical Impression Dysphonia: any 'abnormal' vocal quality suggesting an interruption of normal production: Present - Non-Phonatory Behaviors/Respiration Reduced loudness or vocal weakness: Present HDQLIFE - Speech Difficulties - In the past 7 days. It was difficult for other people to understand me.: Sometimes Is was difficult to speak clearly?: Sometimes - In the past 7 days.. How often did you limit your social activites because you had difficulty speaking?: Rarely - In the past 7 days... I had trouble speaking.: Somewhat I was frustrated by my speech difficulties.: Somewhat - How much DIFFICULTY do you have... ...saying what you want to say?: A little difficulty - Score HDQLIFE Speech Difficulties Raw Score: 16 HDQLIFE Speech Difficulties T - Score: 56 Other - Other Conversation -: Primo stated that he is often asked to repeat what he says. He is stimulable for a louder volume during today's evaluation. He was able to increase to 73 dB with the range starting at 79 and decreased to 69 dB as he spoke. Plan - Plan Plan: Speech therapy is warranted for decreased volume for functional communication secondary to Parkinson's Disease. Dysphagia therapy may be warranted after MBSS. - Recommendations MBS: Yes Treatment Warranted: Yes Treatment Warranted: Voice Comment: Possible dysphagia therapy pending baseline MBS. - Progress Prognosis: Good - Frequency Frequency: 1x/Week Duration: 2 Months Visits in this POC: 8 - Patient/Family Goal Patient/Family Goal: To be heard by all listeners. To be able to communicate. - Goals that are Established Determination:: Goals will be added/modified as deemed necessary and appropriate. Therapy will be discontinued when results of re-evaluation indicate therapy is no longer needed or lack of progress has been documented. - Goal #1-5 Goal #1: Patient will increase vocal loudness to reach a target sound pressure level of 80 dB FELT STRIP FINISHER with 1 cue during sustained phonation, which will help increase vocal respiratory support for functional communication. Goal #2: Patient will increase vocal loudness to reach a target sound pressure level of 75 dB FELT STRIP FINISHER with 1 cue during reading at the word and sentence level, which will help increase vocal respiratory support for functional communication. Goal #3: Patient will increase vocal loudness to reach a target sound pressure level of 70 dB FELT STRIP FINISHER with 1 cue during conversation for functional communication. Education - Patient has Indicated that the Following Identified Educational Needs: None The Patient has indicated that they have no educational or learning abilities that may effect their care.: Yes - Patient Instruction Patient Education: Diagnosis, Treatment Plan, Goals Person Taught: Patient Teaching Method: Discussion Response to teaching: Verbalize understanding
--- NOTE | 2022-06-07 13:00 | SP.MBSS_ITS ---
Modified Barium Swallow - Patient Information Study Date: 06/07/22 Study Time: 13:00 Direct Billable Minutes: 75 Total Minutes procedure & reportin Diagnosis: dysphagia Referring Physician: Mahesh Avendano Reason for Referral: Objective assessment of swallow function under fluoroscopy recommended d/t suspected pharyngeal dysphagia to further elucidate diet texture/liquid consistency/compensatory strategy recommendations and improve specificity of dysphagia interventions selected. Medical History: Abnormal chest CT, Atherosclerosis of coronary artery of [place] heart without angina pectoris, Basal cell carcinoma of left ear, Benign prostate hyperplasia, Common variable immunodeficiency, Hyperlipidemia, Mass of upper lobe of right lung, Parkinson disease, Pneumonia Current Diet Ordered: regular/thin Dentition: Natural Teeth Mental Status: WNL Respiratory Status: Oxygenating on Room Air - Penetration-Aspiration Scale Penetration-Aspiration Scale: OBJECTIVE ASSESSMENT OF SWALLOW FUNCTION (QUANTITATIVE ? PER TRIAL): PENETRATION / ASPIRATION SCALE (YORK): 1 = does not enter airway 2 = enters airway/above vocal folds/ejected 3 = enters airway/above vocal folds/not ejected 4 = enters airway/contacts vocal folds/ejected 5 = enters airway/contacts vocal folds/not ejected 6 = enters airway/below vocal folds/ejected 7 = enters airway/below vocal folds/not ejected despite effort 8 = enters airway/below vocal folds/no effort VIDEOFLOROSCOPIC SCALE SCORE (YORK): Grade I = aspiration of material that has penetrated into the laryngeal vestibule, intact cough reflex Grade II = aspiration < 10 % of the bolus, intact cough reflex Grade III = aspiration of < 10 % of the bolus, reduced cough reflex or aspiration of > 10 % of the bolus, intact cough reflex Grade IV = aspiration of > 10 % of the bolus, reduced cough reflex - Penetration-Aspiration Scale Score Thin Liquid via teaspoon Result: 1= does not enter airway Thin Liquid via teaspoon Trial 2 Result: 1= does not enter airway Thin Liquid via small single sip from cup Result: 2= enter airway/above vocal folds/ejected Thin Liquid via sequential sips from cup Result: 3= enters airways/above vocal folds/not ejected Thin Liquid via single sip from straw Result: 7= enters airways/below vocal folds/not ejected despite effort [place] Thick Liquid via small single sip from cup Result: 1= does not enter airway Pudding Result: 1= does not enter airway Cookie Result: 1= does not enter airway Thin Liquid via small single sip from cup Trial 2 Result: 2= enter airway/above vocal folds/ejected Thin Liquid via small single sip from cup Chin tuck Result: 3= enters airways/above vocal folds/not ejected - Oral Phase Labial Seal: No Labial Escape Tongue Control During Bolus Hold: Cohesive bolus between tongue to palatal seal Bolus Preparation/Mastication: Timely and efficient chewing and mashing Bolus Transport/Lingual Motion: Brisk tongue motion Oral Residue: Trace residue lining oral structures - Pharyngeal Phase Initiation of Pharyngeal Swallow: Bolus head in pyriforms Soft Palate Elevation: No bolus between soft palate and pharyngeal wall Laryngeal Elevation: Comp. Superior move thyroid cart w/comp. apprx arytenoid cart-epig pet Anterior Hyoid Excursion: Partial anterior movement Epiglottic Movement: Partial inversion Laryngeal Vestibule Closure at Height of Swallow: Incomplete; narrow column of air/contrast in laryngeal vestibule Pharyngeal Stripping Wave: Present - complete Pharyngoesophageal Segment Opening: Complete distension and complete duration; no obstruction of flow Tongue Base Retraction: Trace column of contrast between tongue base & post. pharyngeal wall Pharyngeal Residue: Collection of residue within or on pharyngeal structures - Esophageal Phase Esophageal Clearance: Complete clearance - Diagnosis/Impression Diagnosis: mild to moderate oropharyngeal dysphagia (R13.12) Impression: The oral phase is characterized by: * premature pharyngeal entry w/ liquids reaching the pyriforms prior to swallow onset contributing to penetration/aspiration before/during deglutition * timely mastication and A-P bolus transportation The pharyngeal phase is characterized by: * reduced anterior hyoid excursion and incomplete epiglottic inversion contributing to prandial penetration and post-prandial residue retention w/in the valleculae * laryngeal vestibule penetration occurred w/ thin liquids, worse w/ larger volumes and sequential intake * aspiration occurred only w/ liquid intake via straw w/ liquid spilling to the pyriforms and entering the laryngeal vestibule posteriorly resulting in penetration and aspiration * delayed cough response to aspirate which was not effective to eject aspirate from the trachea * a chin tuck posture was trialed and was demonstrated to increase laryngeal vestibule penetration The esophageal phase is unremarkable. Diet Recommended: * Regular Texture (IDDSI: 7) * Thin Liquid (IDDSI: 0) Compensatory Strategies Recommended: * Small sips * Avoid straws * Sit upright w/ hip flexion at 90 degrees during PO intake? * Remain seated upright for 30 minutes after PO intake (GERD precautions) Skilled ST Intervention: * training and implementation of recommended compensatory strategies * training and implementation of recommended oral strengthening exercises to facilitate improved hyolaryngeal excursion, epiglottic inversion and laryngeal vestibule closure Education: * Images were reviewed w/ the patient following MBS conclusion. * Extended time spent providing education re: anatomy/physiology of swallow function and of deficits identified. * Results, recommendation and plan of care going forward were discussed with the Patient verbalizing understanding and agreement with all recommendations and education provided. - Status Active ST Patient: Active - Contact Information [facility] Speech Therapy:: Jenifer Faulkner M.A., CCC-[employer] [address] [place] [address] x [phone] [email or web address]
--- NOTE | 2022-07-19 10:21 | HP.SP.DC ---
ST Discharge Summary - Discharged: Discharge: Herman Kelly is discharged from speech therapy at [facility] as of 07/04/22 as he had reached a plateau on his goals. His initial evaluation was on 05/04/22 with a total of 8 sessions after that. His goals and abilities are as follows: Sound pressure level of 80 dB SPL with 1 cue during sustained phonation which he was consistently able to reach with minimal cues. Goal met as he exceeded 80 dB for this goal. Sound pressure level of 75 dB SPL with 1 cue during reading at the word and sentence level. Goal met as he was at least at 75 dB. Sound pressure level of 70 dB SPL with 1 cue during conversation for functional communication. He consistently was able to have a SPL of 67-69 dB with one to no cues depending on the session. He is discharged as his communication at this time is functional. He may need to return in the future due to the nature of Parkinson?s Disease being progressive. Thank you for allowing me to participate in the care of this patient.
== END 2022-07-04 19:00 | disposition home or self-care (01) ==
LOC: SP 11:00
PROVIDERS: PCP Family Medicine; Referring Provider Family Medicine; Visit Provider Family Medicine
DX: G20 Parkinson's disease (principal); R13.10 Dysphagia, unspecified; R49.0 Dysphonia
CPT/HCPCS: 92507; 92524; 92611

== ENCOUNTER → 2022-07-07 | Outpatient (CLI) | payer MEDICARE, OTHER, SELFPAY ==
[2019-03-11 14:03] VITALS: BMI 24.3
[2022-07-07 15:43] LABS: Absolute Lymphocyte Count 0.77 X10^3/uL (0.83-4.51); Absolute Neutrophil Count 3.7 X10^3/uL (2.0-7.7); Hematocrit 41.2 % (40-54); Hemoglobin 13.8 g/dL (13.0-16.5); Lymphocyte # 0.77 X10^3/ul (0.83-4.51); Lymphocyte % 15.6 % (19-41); Mean Corp Hgb Conc 33.5 g/dL (32-36); Mean Corpuscular Hgb 31.5 pg (27.0-32.0); Mean Corpuscular Volume 94.1 fL (80-94); Monocyte# 0.45 X10^3/uL; Monocyte% 9.1 % (0-10); NRBC Flagged by Analyzer 0 % (0-5); Neutrophil % 74.9 % (47-70); Platelet Count 112 K/mm3 (150-450); RBC Distribution Width CV 12.4 % (11.6-14.6); RBC Distribution Width SD 43.1 fl (35.1-43.9); Red Blood Count 4.38 M/mm3 (4.6-6.2); White Blood Count 4.9 K/mm3 (4.4-11.0)
[2022-07-07 15:52] LABS: ALB/GLOB Ratio 1.2 RATIO (0.9-2.4); AST(SGOT) 26 U/L (15-37); Alanine Aminotransfer ALT/SGPT 39 U/L (16-61); Albumin, Serum 3.7 g/dL (3.2-5.0); Alkaline Phosphatase 59 U/L (45-117); Anion Gap 3 (5-15); BUN 21 mg/dL (7-18); BUN/Creat Ratio 28.5 RATIO (10-20); Calcium,Total 9.2 mg/dL (8.5-10.1); Chloride 104 mmol/L (98-107); Creatinine, Serum 0.74 mg/dL (0.70-1.30); EST Glomerular Filtration Rate 112 mL/min (>60); Est Glom Filt Rate - Afr Amer 135 mL/min (>60); Globulin 3.1 g/dL (2.2-4.2); Glucose 114 mg/dL (74-106); Potassium 4.3 mmol/L (3.5-5.1); Protein, Total 6.8 g/dL (6.4-8.2); Sodium Level 136 mmol/L (136-145)
== END | disposition home or self-care (01) ==
LOC: MFPLAB 11:22
PROVIDERS: PCP Family Medicine; Referring Provider Family Medicine; Visit Provider Family Medicine
DX: Z00.00 Encounter for general adult medical examination without abnormal findings (principal); G90.3 Multi-system degeneration of the autonomic nervous system
CPT/HCPCS: 36415; 80053; 85025

== ENCOUNTER → 2022-07-08 | Outpatient (CLI) | payer MEDICARE, OTHER, SELFPAY ==
[2019-03-11 14:03] VITALS: BMI 24.3
[2022-07-08 11:09] VITALS: BP 135/63; PULSE 67; RESP 16; TEMP 36.7; O2SAT 99
[2022-07-08] MEDS: 0.9% NaCl Peripheral Flush Adult/Peds IV (11:45)
[2022-07-08] MEDS: Immune Globulin 20 gm Premixed Solution 68 BAG IV (11:45)
== END | disposition home or self-care (01) ==
LOC: MEDOUTP 11:02
PROVIDERS: PCP Family Medicine; Referring Provider Family Medicine; Visit Provider Family Medicine
DX: D83.9 Common variable immunodeficiency, unspecified (principal)
CPT/HCPCS: 96365; 96366; A4216; J1568

== ENCOUNTER → 2022-07-15 | Outpatient (CLI) | payer MEDICARE, OTHER, SELFPAY ==
[2019-03-11 14:03] VITALS: BMI 24.3
--- NOTE | 2022-07-15 10:29 | RAD_ITS ---
EXAM: XR LUMBOSACRAL SPINE, 4 OR 5 VIEWS CLINICAL INDICATION: BACK PAIN TECHNIQUE: Frontal, lateral and bilateral oblique views of the lumbar spine. This report was created using [employer] report [employer] technology. COMPARISON: None. FINDINGS: VERTEBRAE: There is a mild superior endplate compression deformity of L1. No spondylolisthesis. Preservation of the normal lumbar lordosis. No significant facet arthropathy. DISC SPACES: There are degenerative changes with disc space narrowing at L5-S1. GASTROINTESTINAL TRACT: Unremarkable as visualized. Included bowel gas pattern is non-obstructive. RAD/L/S Spine Min 4 Views IMPRESSION: Mild superior endplate compression deformity of L1 of uncertain age. If indicated further evaluation with MRI may be beneficial. There are degenerative changes with disc space narrowing at L5-S1. Electronically Signed: Alberto Feliciano MD at 20:27 EST ,
== END | disposition home or self-care (01) ==
LOC: MTRAD 10:28
PROVIDERS: PCP Family Medicine; Referring Provider Family Medicine; Visit Provider Family Medicine
DX: M54.9 Dorsalgia, unspecified (principal)
CPT/HCPCS: 72110

== ENCOUNTER → 2022-08-04 | Outpatient (CLI) | payer MEDICARE, OTHER, SELFPAY ==
[2019-03-11 14:03] VITALS: BMI 24.3
[2022-08-04 10:51] VITALS: BP 126/59; PULSE 72; RESP 12; TEMP 36.1; O2SAT 100; BMI 23.8
[2022-08-04] MEDS: Immune Globulin 10 gm Premixed Solution 68 BAG IV (11:13)
[2022-08-04] MEDS: Immune Globulin 5 GM Premixed Solution 136 BAG IV (12:12)
[2022-08-04] MEDS: Immune Globulin 5 GM Premixed Solution 238 BAG IV (12:28)
== END | disposition home or self-care (01) ==
LOC: MEDOUTP 10:36
PROVIDERS: PCP Family Medicine; Referring Provider Family Medicine; Visit Provider Family Medicine
DX: D83.9 Common variable immunodeficiency, unspecified (principal)
CPT/HCPCS: 96365; 96366; A4216; J1568

== ENCOUNTER → 2022-08-11 | Outpatient (CLI) | payer MEDICARE, OTHER, SELFPAY ==
[2019-03-11 14:03] VITALS: BMI 24.3
--- NOTE | 2022-08-11 07:23 | MRI_ITS ---
HISTORY: compression abnormality, ddd TECHNIQUE: Multiplanar and multisequence MR images of the lumbar spine were obtained without intravenous contrast. 138 images. COMPARISON: XR 07/15/2022, CT 06/15/2019. FINDINGS: VERTEBRAE: L1 compression fracture involving the superior endplate with approximately 25% loss of height, diffuse bone marrow edema, little intervening normal fat signal, and convexity of the posterior vertebral body margin slightly retropulsed into the spinal canal resulting in mild central canal stenosis. Degenerative bone marrow endplate changes at L4-5 and L5-S1. ALIGNMENT: No significant anterior or posterior subluxation. No gross ligamentous disruption. SPINAL CANAL: Normal morphology and position of the conus medullaris at L1-2. No gross epidural collection. INTERVERTEBRAL DISCS: T12-L1: No significant posterior disc protrusion, central canal stenosis, or foraminal narrowing. L1-2: Mild disc bulge with facet arthropathy resulting in minimal narrowing of the thecal sac and no significant foraminal narrowing. L2-3, L3-4: No significant posterior disc protrusion. Facet arthropathy with minimal narrowing of the thecal sac and no significant foraminal narrowing. L4-5: Moderate left paracentral disc protrusion with facet arthropathy resulting in left L5 nerve root impingement, moderate central canal stenosis, and mild bilateral foraminal narrowing. L5-S1: Moderate posterior disc bulge osteophyte complex with facet arthropathy resulting in mild central canal stenosis, moderate left, and moderate right foraminal narrowing with impingement of the right L5 nerve root. SOFT TISSUES: Mild posterior subcutaneous edema. Small left renal cyst. MRI/Spine Lumbar (Routine) IMPRESSION: Mild L1 compression fracture, possible pathologic fracture. Recommend further workup such as tissue sampling or close short-term interval imaging follow-up to exclude neoplasm. Multilevel degenerative disc disease of the lumbar spine resulting in spinal canal stenosis and nerve root impingement as above. Electronically Signed: Guillermina Callejas MD at 9:05 EST ,
== END | disposition home or self-care (01) ==
LOC: MRI 07:22
PROVIDERS: PCP Family Medicine; Referring Provider Family Medicine; Visit Provider Family Medicine
DX: G95.20 Unspecified cord compression (principal)
CPT/HCPCS: 72148

== ENCOUNTER → 2022-08-15 | Outpatient (CLI) | payer MEDICARE, OTHER, SELFPAY ==
[2019-03-11 14:03] VITALS: BMI 24.3
--- NOTE | 2022-08-12 | IMM_PTH ---
PATIENT: FRANCISCO CONNOR LOC: [facility] U#:[id number] AGE/SX: 72/M ROOM: RE08/15/[address]: Dr. Leo Benoit MD : 1950 BED: DIS: 08/15/2022 SPEC #: [id number] RECD: 08/17/22 12:55 STATUS: ROMI REQ #: [id number] PRADIP: 08/12/22 00:[address]: Leo Benoit DEPT: IMMUNOHISTOCHEMISTRY RECD BY: Odalys Cohen ENTERED: 08/17/22 12:57 SP TYPE: IMMUNO OTHR DR: Dr. Mahesh Avendano MD Tissues: Vertebra, NOS Procedures: CD45 (add) KI-67 (add) MACRO (add) MPO (add) P53 (add) Vimentin (add) Pankeratin (initial) S-100 (add) PHYSICIAN & INSTITUTION [facility] [id number] SPECIMEN INFORMATION: Tissue Source: Body of L1 Clinical Info: Compression fracture L1 Specimen Number: [id number] CPT code: 45421, 68028 x7 METHODOLOGY: Deparaffinized sections of prefer/formalin-fixed tissue or PAP/DQ stained slides are incubated with monoclonal/polyclonal antibodies/oligonucleotide probes. Localization is made via biotin free immunoperoxidase method. Appropriate controls are performed and reacted as expected. Results on target cell population are indicated in the following table: RESULTS: ANTIBODY / CLONE RESULT AE1-3 (AE1/AE3/PCK26) negative CD45 (RP2/18) negative MPO (polyclonal) positive Vimentin (V9) positive Macro (HAM-56) positive S-100 (4C4.9) negative P53 (DO-7) negative Ki-67 (30-9) negative These tests were developed and their performance characteristics determined by [facility]. They may not have been cleared or approved by the U.S. Food and Drug Administration. The FDA has determined that such clearance or approval is not necessary. The above immunohistochemical/dualISH markers are ordered and reviewed by the Pathologist. INTERPRETATION: L1 compression fracture, bone biopsy: Consistent with organizing fracture callus. AM:kanwal 08/18/2022
--- NOTE | 2022-08-12 13:55 | BONBX_PTH ---
PATIENT: FRANCISCO CONNOR LOC: [facility] U#:[id number] AGE/SX: 72/M ROOM: RE08/15/[address]: Dr. Leo Benoit MD : 1950 BED: DIS: 08/15/2022 SPEC #: [id number] RECD: 08/15/22 14:50 STATUS: ROMI REGardenia #: [id number] PRADIP: 08/12/22 13:[address]: Leo Benoit DEPT: SURGICAL PATHOLOGY RECD BY: Marlene Potter ENTERED: 08/16/22 07:29 SP TYPE: Bone OTHR DR: Dr. Mahesh Avendano MD [facility] Tissues: Vertebra, NOS Procedures: Decalcification bone/plaque Surgery Specimen Level V HEADER OPERATION: Kyphoplasty at L1 PRE-OP DIAGNOSIS: Compression fracture L1 TISSUE SUBMITTED: Body of L1 MICROSCOPIC DIAGNOSIS L1 compression fracture, bone biopsy: Consistent with organizing fracture callus. See comment. AM:kanwal 08/17/2022 COMMENT Immunohistochemistry ([id number]) supports the above diagnosis. MICROSCOPIC DESCRIPTION Slides are reviewed. GROSS DESCRIPTION Received in fixative is one container labeled with the patient's name and designated body of L1. The specimen consists of multiple fragments of blood clot mixed with fragments of bone that in aggregate measure 1 x 1 x 0.1 cm. The specimen is totally submitted in one cassette after decalcification. / SJ:kanwal 08/16/2022 TC:5 CPT: 82583, 88441
== END | disposition home or self-care (01) ==
LOC: LABSPEC 15:13
PROVIDERS: PCP Family Medicine; Referring Provider Anesthesiology Pain Medicine; Visit Provider Anesthesiology Pain Medicine
DX: S32.010A Wedge compression fracture of first lumbar vertebra, initial encounter for closed fracture (principal)
CPT/HCPCS: 88307; 88311; 88341; 88342

== ENCOUNTER → 2022-08-24 | Outpatient (CLI) | payer MEDICARE, OTHER, SELFPAY ==
[2019-03-11 14:03] VITALS: BMI 24.3
--- NOTE | 2022-08-24 11:13 | RAD_ITS ---
STUDY: XR Shoulder Min 2 Views REASON FOR EXAM: Male, 72 years old. PAIN TECHNIQUE: XR Shoulder Min 2 Views RIGHT COMPARISON: None. FINDINGS: Normal glenohumeral articulation. Normal acromioclavicular joint. Normal acromion. Normal humeral head and visualized proximal humerus. The soft tissue structures are unremarkable. Normal visualized pulmonary apex. RAD/Shoulder min 2 Views IMPRESSION: There are no acute findings of the shoulder. Electronically Signed: Emanuel Fregoso MD at 17:41 EST ,
== END | disposition home or self-care (01) ==
LOC: MTLAB 11:12
PROVIDERS: PCP Family Medicine; Referring Provider Anesthesiology Pain Medicine; Visit Provider Anesthesiology Pain Medicine
DX: M25.511 Pain in right shoulder (principal)
CPT/HCPCS: 73030

== ENCOUNTER → 2022-09-09 | Outpatient (CLI) | payer MEDICARE, OTHER, SELFPAY ==
[2019-03-11 14:03] VITALS: BMI 24.3
[2022-09-09 11:12] VITALS: BP 149/66; PULSE 68; RESP 16; TEMP 36.5; O2SAT 99; BMI 24.5
[2022-09-09] MEDS: 0.9% NaCl Peripheral Flush Adult/Peds IV (11:19)
[2022-09-09] MEDS: Immune Globulin 20 gm Premixed Solution 68 BAG IV (11:50)
== END | disposition home or self-care (01) ==
LOC: MEDOUTP 11:05
PROVIDERS: PCP Family Medicine; Referring Provider Family Medicine; Visit Provider Family Medicine
DX: D83.9 Common variable immunodeficiency, unspecified (principal)
CPT/HCPCS: 96365; 96366; A4216; J1568

== ENCOUNTER → 2022-09-19 | Outpatient (CLI) | payer MEDICARE, OTHER, SELFPAY ==
[2019-03-11 14:03] VITALS: BMI 24.3
--- NOTE | 2022-09-18 09:09 | MRI_ITS ---
STUDY: MRI RIGHT SHOULDER REASON FOR EXAM: Male, 72 years old. RT SHOULDER PAIN TECHNIQUE: Standardized fat and water weighted pulse sequences were obtained in all 3 orthogonal planes. COMPARISON: X-ray 08/24/2022 FINDINGS: Moderate supraspinatus and infraspinatus tendinosis and peritendinitis as with a 2 x 2 cm full-thickness complete tear of the supraspinatus tendon retracted to the mid humeral head. Normal subscapularis tendon. Normal teres minor tendon. There is a partial muscular strain with muscular edema of the supraspinatus muscle. Normal infraspinatus muscle. Normal subscapularis muscle. Normal teres minor muscle. There is a moderate volume joint effusion of the glenohumeral joint. Small bodies in the subcoracoid recess. Normal humeral head and visualized proximal humerus. Normal biceps labral complex. Normal intracapsular long biceps tendon. Normal labrum. Normal capsulo- ligamentous complex. Normal rotator interval. There is mild osteoarthritis of the acromioclavicular articulation. There is a Type II morphology (curved), with a anterior downsloping orientation. There is fluid distention of the subacromial-subdeltoid bursa, which communicates with the glenohumeral joint, through a rotator cuff tear. Normal visualized coracohumeral and coracoacromial ligaments. Normal quadrilateral space. Normal axillary space. Normal deltoid muscle. Normal trapezius muscle. MRI/Upper Ext Joint Only(Routine) IMPRESSION: 1. Moderate supraspinatus and infraspinatus tendinosis and peritendinitis as with a 2 x 2 cm full-thickness complete tear of the supraspinatus tendon retracted to the mid humeral head with muscular edema. No muscular atrophy. 2. Anterolateral downsloping acromion with thickening of the coracoacromial ligament produces lateral outlet stenosis. 3. Moderate joint effusion with small bodies in the subcoracoid recess. Electronically Signed: Thanh Dorado MD at 10:32 EST ,
== END | disposition home or self-care (01) ==
LOC: MRI 07:45
PROVIDERS: PCP Family Medicine; Referring Provider Nurse Practitioner Family; Visit Provider Nurse Practitioner Family
DX: M25.511 Pain in right shoulder (principal)
CPT/HCPCS: 73221

== ENCOUNTER → 2022-10-07 | Outpatient (CLI) | payer MEDICARE, OTHER, SELFPAY ==
[2019-03-11 14:03] VITALS: BMI 24.3
[2022-10-07 11:02] VITALS: BP 132/55; PULSE 63; RESP 16; TEMP 36.6; O2SAT 100; BMI 24.3
[2022-10-07] MEDS: 0.9% NaCl Peripheral Flush Adult/Peds IV (11:09)
[2022-10-07] MEDS: Immune Globulin 20 gm Premixed Solution 68 BAG IV (11:29)
== END | disposition home or self-care (01) ==
LOC: MEDOUTP 10:54
PROVIDERS: PCP Family Medicine; Referring Provider Family Medicine; Visit Provider Family Medicine
DX: D83.9 Common variable immunodeficiency, unspecified (principal)
CPT/HCPCS: 96365; 96366; A4216; J1568

== ENCOUNTER → 2022-11-04 | Outpatient (CLI) | payer MEDICARE, OTHER, SELFPAY ==
[2019-03-11 14:03] VITALS: BMI 24.3
[2022-11-04 11:23] VITALS: BP 123/60; PULSE 60; RESP 16; TEMP 36.6; O2SAT 100
[2022-11-04] MEDS: Immune Globulin 20 gm Premixed Solution 68 BAG IV (11:40)
[2022-11-04] MEDS: 0.9% NaCl Peripheral Flush Adult/Peds IV (11:41)
== END | disposition home or self-care (01) ==
LOC: MEDOUTP 11:05
PROVIDERS: PCP Family Medicine; Referring Provider Family Medicine; Visit Provider Family Medicine
DX: D83.9 Common variable immunodeficiency, unspecified (principal)
CPT/HCPCS: 96365; 96366; A4216; J1568

== ENCOUNTER 2022-11-16 07:30 | Outpatient (RCR) | payer MEDICARE, OTHER, SELFPAY ==
[2019-03-11 14:03] VITALS: BMI 24.3
--- NOTE | 2022-10-24 09:43 | HP.PTEVAL_ITS ---
Patient's Visit Information FRANCISCO CONNOR is a 72 year old M referred to Physical Therapy by Dr. Jorden Ortiz DO with a diagnosis of Right Shoulder. Date of Evaluation: 10/24/22 Physical Therapist: Mariaa Pinzon DPT - Visit Plan Frequency: 2x /Week Duration: 4 Weeks Plan: Right RTC Tear Dec- Focus on ROM, scapular strength/stabilization and muscular endurance. HEP Given IE: Posture sitting and standing, Supine cane Flexion, Standing cane abduction, Flexion Wall Wash - Subjective Patient reports he fell off a ladder in Mid July- landed on his right shoulder- rolled and it wasn't that bad- he ignored his shoulder pain- finally went to his Dr. Washington for lumbar injections and he mentioned his shoulder- did an MRI which showed a tear 2x2cm- so they sent him to therapy. He did not have an injections. The pain comes and goes. Best: 0/10 Eases: sitting down. Agg: reaching out to the side, rolling over on it at night. Worst: 3-4/10. Pain is located in the bicep/deltoid area. No pain radiates past the elbow or up into the neck. Describes the pain as more of a tooth ache pain. No N/T in the hand. No ANDERSON, blurred vision or dizziness. Right hand dominate. Very active- comes to for 9 classes a week and goes to the [facility] and [place] for the Parkinson's class Mon/. He is fully I with all ADL's and driving.- does live with his who can help as needed. Sleep: disturbed when he rolls over on it. He feels that the shoulder is not getting worse just staying the same. He feels that he is - Objective Posture: mild guarding of the right UE. Palpation: not tender to touch. ROM: Cervical: WNL, Elbow/Wrist/Hand: WFL, AROM: Flexion: 130 degrees , Abd: 120 degrees, IR: to belt line, ER: 30 degrees all slow and methodical- attempted PROM but very guarded- AAROM was more successful Flexion: 150 degrees, Abd: 140 degrees Strength: Scap: fair, Shoulder Isometric: 4/5 without pain, Elbow: isometric: 4/5, Electrical And Instrument Technician: equal - Balance/Special Test Scores Quick DASH Score: 34.0900 - Goals Goal 1:: Patient will be I with HEP and progression Goal Time Frame: 4-6 Weeks Goal 2:: Patient will demo full AROM of the right shoulder Goal Time Frame: 4-6 Weeks Goal 3:: Patient will maintain proper posture to demo increased scapular strength/stabilization Goal Time Frame: 4-6 Weeks Goal 4:: Patient will report 80% improvement Goal Time Frame: 4-6 Weeks - Rehabilitation Potential Physical Therapy Diagnosis: Patient presents with hypomobility- he has decreased pain free ROM, UE and scapular s/s and muscular endurance leading to inability to reach and perform ADL's. Rehabilitation Potential: Good - Anticipated Interventions Patient/Client Instruction: Educate patient on: Benefits of Fitness Program Therapeutic Exercise to Include: Strength training, Endurance training, Balance training, Coordination, Agility training, Body mechanics, Postural training, Flexibilty training, Passive ROM, Active ROM, Dynamic Lumbar Stabilization, Scapular Strength/Stabilization For the Purpose of:: To improve muscle performance and motor function TENS: Yes Cryotherapy (ice pack, ice massage): Yes Thermo therapy (hot pack): Yes Ultrasound (thermal/non thermal): Yes Thank you for the opportunity to evaluate your patient. For Medicare and Medicare HMO plans, please review the plan of care and approve it. It will need to be FAXED BACK to us at [phone] for Medicare purposes. For Medicare only, by signing this I certify the plan of care. Please let me know if there are questions or concerns regarding this plan of care. Physician Signature: Date:
--- NOTE | 2022-11-16 08:38 | HP.PTDCSUM ---
It has been my pleasure to treat FRANCISCO CONNOR referred by Dr. Jorden Ortiz DO, with the diagnosis of Right Shoulder for a total of 9 visit(s). Discharge Date: Please see the following information for a summary of their discharge status. Subjective: Patient reports that he is 75% better- he knows there is a tear from the fall but he feels that at this time he is functional without surgical intervention. He really only has pain at night when he rolls over onto the shoulder. He reports that he uses both hands to raise something heavy over his head like a gallon of milk to the top shelf of the fridge. Continues with all of his exercise routines Objective/Function: Posture: no guarding Palpation: not tender to touch. ROM: Cervical: WNL, Elbow/Wrist/Hand: WFL, AROM: Flexion: 180 degrees , Abd: 130 degrees, IR: to belt line, ER: 50 degrees Strength: Scap: fair, Shoulder Isometric: 4+/5 in all motions with pain with restisted abduction, Elbow: isometric: 4+/5, Hospice Manager: equal Goal 1:: Patient will be I with HEP and progression Goal Progress: Goal Met Goal 2:: Patient will demo full AROM of the right shoulder Goal Progress: Progressing Goal 3:: Patient will maintain proper posture to demo increased scapular strength/stabilization Goal Progress: Progressing Goal 4:: Patient will report 80% improvement Goal Progress: Progressing Plan: 11/16/22: Discharge to I HEP- encouraged to ask questions if he has any with exercises. Cont classe. Right RTC Tear Dec- Focus on ROM, scapular strength/stabilization and muscular endurance. HEP Given IE: Posture sitting and standing, Supine cane Flexion, Standing cane abduction, Flexion Wall Wash If there are questions or concerns regarding this patient's physical therapy, please feel free to call me at [phone]. Thank you for the referral of this patient. Sincerely, Mariaa Pinzon, GLENT Balance/Gait/Functional tests - Balance/Special Test Scores Quick DASH Score: [phone]
== END 2022-11-16 09:00 | disposition home or self-care (01) ==
LOC: PT 07:30
PROVIDERS: PCP Family Medicine; Referring Provider Orthopaedic Surgery; Visit Provider Orthopaedic Surgery
DX: S46.011D Strain of muscle(s) and tendon(s) of the rotator cuff of right shoulder, subsequent encounter (principal); M75.41 Impingement syndrome of right shoulder
CPT/HCPCS: 97110; 97162; 97164

== ENCOUNTER → 2022-12-08 | Outpatient (CLI) | payer MEDICARE, OTHER, SELFPAY ==
[2019-03-11 14:03] VITALS: BMI 24.3
[2022-12-08 11:20] VITALS: BP 130/87; PULSE 76; RESP 16; O2SAT 100
[2022-12-08] MEDS: 0.9% NaCl Peripheral Flush Adult/Peds IV (11:29)
[2022-12-08] MEDS: Immune Globulin 20 gm Premixed Solution 68 BAG IV (11:39)
== END | disposition home or self-care (01) ==
LOC: MEDOUTP 11:07
PROVIDERS: PCP Family Medicine; Referring Provider Family Medicine; Visit Provider Family Medicine
DX: D83.9 Common variable immunodeficiency, unspecified (principal)
CPT/HCPCS: 96365; 96366; A4216; J1568

== ENCOUNTER 2023-01-05 09:26 | Outpatient (CLI) | payer MEDICARE, OTHER, SELFPAY ==
[2019-03-11 14:03] VITALS: BMI 24.3
[2023-01-05 09:29] VITALS: BP 114/53; PULSE 73; RESP 16; TEMP 36.9; O2SAT 99
[2023-01-05] MEDS: 0.9% NaCl Peripheral Flush Adult/Peds IV (09:44)
[2023-01-05] MEDS: Immune Globulin 20 gm Premixed Solution 68 BAG IV (09:52)
== END 2023-01-05 09:27 | disposition home or self-care (01) ==
LOC: MEDOUTP 09:26
PROVIDERS: PCP Family Medicine; Referring Provider Family Medicine; Visit Provider Family Medicine
DX: D83.9 Common variable immunodeficiency, unspecified (principal)
CPT/HCPCS: 96365; 96366; A4216; J1568

== ENCOUNTER → 2023-02-01 | Outpatient (CLI) | payer MEDICARE, OTHER, SELFPAY ==
[2019-03-11 14:03] VITALS: BMI 24.3
[2023-02-01 12:49] LABS: AST(SGOT) 30 U/L (15-37); Alanine Aminotransfer ALT/SGPT 15 U/L (16-61); Albumin, Serum 3.5 g/dL (3.2-5.0); Alkaline Phosphatase 71 U/L (45-117); Bilirubin, Direct 0.12 mg/dL (0.00-0.30); Cholesterol 82 mg/dL (200); Globulin 3.4 g/dL (2.2-4.2); High Density Lipoprotein 29 mg/dL; Protein, Total 6.9 g/dL (6.4-8.2); Triglycerides 93 mg/dL; Very Low Density Lipoprotein 19 mg/dL (5-40)
== END | disposition home or self-care (01) ==
LOC: LAB 11:59
PROVIDERS: PCP Family Medicine; Visit Provider Physician Assistant Medical
DX: E78.00 Pure hypercholesterolemia, unspecified (principal); Z95.5 Presence of coronary angioplasty implant and graft
CPT/HCPCS: 36415; 80061; 80076

== ENCOUNTER 2023-02-03 10:41 | Outpatient (CLI) | payer MEDICARE, OTHER, SELFPAY ==
[2019-03-11 14:03] VITALS: BMI 24.3
[2023-02-03 11:03] VITALS: BP 117/53; PULSE 66; RESP 16; TEMP 36.1; O2SAT 100
[2023-02-03] MEDS: 0.9% NaCl Peripheral Flush Adult/Peds IV (11:05)
[2023-02-03] MEDS: Immune Globulin 20 gm Premixed Solution 68 BAG IV (11:07)
== END 2023-02-03 10:42 | disposition home or self-care (01) ==
LOC: MEDOUTP 10:41
PROVIDERS: PCP Family Medicine; Referring Provider Family Medicine; Visit Provider Family Medicine
DX: D83.9 Common variable immunodeficiency, unspecified (principal)
CPT/HCPCS: 96365; 96366; A4216; J1568

== ENCOUNTER 2023-03-08 12:31 | Outpatient (CLI) | payer MEDICARE, OTHER, SELFPAY ==
[2019-03-11 14:03] VITALS: BMI 24.3
[2023-03-08] MEDS: 0.9% NaCl Peripheral Flush Adult/Peds IV (12:46)
[2023-03-08] MEDS: Immune Globulin 20 gm Premixed Solution 68 BAG IV (12:52)
[2023-03-08 12:58] VITALS: BP 119/53; PULSE 71; RESP 16; TEMP 37; O2SAT 97; BMI 23.9
== END 2023-03-08 12:32 | disposition home or self-care (01) ==
PROVIDERS: PCP Family Medicine; Referring Provider Family Medicine; Visit Provider Family Medicine
DX: D83.9 Common variable immunodeficiency, unspecified (principal)
CPT/HCPCS: 96365; 96366; A4216; J1568

== ENCOUNTER → 2023-03-23 | Outpatient (CLI) | payer MEDICARE, OTHER, SELFPAY ==
[2019-03-11 14:03] VITALS: BMI 24.3
[2023-03-23 11:45] LABS: PSA,Total - Annual Screen 4.24 ng/mL (0.00-4.00)
== END | disposition home or self-care (01) ==
LOC: LAB 10:33
PROVIDERS: PCP Family Medicine; Referring Provider Urology; Visit Provider Urology
DX: Z12.5 Encounter for screening for malignant neoplasm of prostate (principal)
CPT/HCPCS: 36415; 84153; G0103

== ENCOUNTER 2023-04-05 10:49 | Outpatient (CLI) | payer MEDICARE, OTHER, SELFPAY ==
[2019-03-11 14:03] VITALS: BMI 24.3
[2023-04-05 11:03] VITALS: BP 122/62; PULSE 63; RESP 16; TEMP 36.2; O2SAT 98
[2023-04-05] MEDS: 0.9% NaCl Peripheral Flush Adult/Peds IV (11:11)
[2023-04-05] MEDS: Immune Globulin 20 gm Premixed Solution 68 BAG IV (11:15)
== END 2023-04-05 10:50 | disposition home or self-care (01) ==
LOC: MEDOUTP 10:49
PROVIDERS: PCP Family Medicine; Referring Provider Family Medicine; Visit Provider Family Medicine
DX: D83.9 Common variable immunodeficiency, unspecified (principal)
CPT/HCPCS: 96365; 96366; A4216; J1568

== ENCOUNTER → 2023-05-05 | Outpatient (CLI) | payer MEDICARE, OTHER, SELFPAY ==
[2019-03-11 14:03] VITALS: BMI 24.3
--- NOTE | 2023-05-05 12:50 | CDU_ITS ---
Reason For Study: Carotid Bruit Rt. Velocities/BP Lt. Velocities/BP Prox CCA 96.5/17.9 cm/sec. Prox CCA 120.8/19.7 cm/sec. Mid CCA 101.4/16.7 cm/sec. Mid CCA 115.6/17.1 cm/sec. Dist CCA 88.8/17.5 cm/sec. Dist CCA 94.9/19.7 cm/sec. Prox ICA 161.6/27.7 cm/sec. Prox ICA 149.3/19.7 cm/sec. Mid ICA 124.2/25.5 cm/sec. Mid ICA 86.7/20.4 cm/sec. Dist ICA 100.1/21.1 cm/sec. Dist ICA 56.6/15.7 cm/sec. Rt. ICA/CCA = 1.6. Lt. ICA/CCA = 1.3. Prox ECA 171.9/11.6 cm/sec. Prox ECA 183.0/9.3 cm/sec. Rt. Vert. 38.9/11.0 cm/sec. Lt. Vert. 53.7/8.4 cm/sec. Right Extracranial There is homogeneous, smooth atherosclerotic plaque noted in the right common carotid artery. There is heterogeneous, irregular atherosclerotic plaque noted in the right internal carotid artery. The atherosclerotic plaque causes acoustic shadowing. There is heterogeneous, irregular atherosclerotic plaque noted in the right external carotid artery. Antegrade flow is noted in the right vertebral artery. There is heterogeneous, irregular atherosclerotic plaque noted in the right bulb. Left Extracranial There is heterogeneous, irregular atherosclerotic plaque noted in the left common carotid artery. There is heterogeneous, irregular atherosclerotic plaque noted in the left internal carotid artery. The atherosclerotic plaque causes acoustic shadowing. There is heterogeneous, irregular atherosclerotic plaque noted in the left external carotid artery. Antegrade flow is noted in the left vertebral artery. There is heterogeneous, irregular atherosclerotic plaque noted in the left bulb. Procedure Carotid Duplex [id number]. This is a Carotid Duplex examination using B-mode, color flow and specral Doppler. The exam was diagnostic. Exam performed in department. VL/Carotid Duplex Ultrasound Interpretation Summary Moderate (50-69%) stenosis right extracranial internal carotid. Moderate (50-69%) stenosis left extracranial internal carotid. Patent and antegrade vertebrals bilaterally. Ordering Physician: Lory He Referring Physician: Mahesh Avendano MD Performed By: Milo Rodriguez RVT
== END | disposition home or self-care (01) ==
LOC: CVS 12:47
PROVIDERS: PCP Family Medicine; Referring Provider Physician Assistant Medical; Visit Provider Physician Assistant Medical
DX: R09.89 Other specified symptoms and signs involving the circulatory and respiratory systems (principal)
CPT/HCPCS: 93880

== ENCOUNTER 2023-05-10 10:49 | Outpatient (CLI) | payer MEDICARE, OTHER, SELFPAY ==
[2019-03-11 14:03] VITALS: BMI 24.3
[2023-05-10] MEDS: 0.9% NaCl Peripheral Flush Adult/Peds IV (11:06)
[2023-05-10] MEDS: Immune Globulin 20 gm Premixed Solution 68 BAG IV (11:06)
[2023-05-10 11:11] VITALS: BP 117/51; PULSE 73; RESP 16; TEMP 36.8; O2SAT 97; BMI 24.3
== END 2023-05-10 10:50 | disposition home or self-care (01) ==
LOC: MEDOUTP 10:49
PROVIDERS: PCP Family Medicine; Referring Provider Family Medicine; Visit Provider Family Medicine
DX: D83.9 Common variable immunodeficiency, unspecified (principal)
CPT/HCPCS: 96365; 96366; A4216; J1568

== ENCOUNTER 2023-06-08 10:56 | Outpatient (CLI) | payer MEDICARE, OTHER, SELFPAY ==
[2019-03-11 14:03] VITALS: BMI 24.3
[2023-06-08 11:06] VITALS: BP 125/56; PULSE 65; RESP 16; TEMP 36.2; O2SAT 100
[2023-06-08] MEDS: 0.9% NaCl Peripheral Flush Adult/Peds IV (11:21)
[2023-06-08] MEDS: Immune Globulin 20 gm Premixed Solution 68 BAG IV (11:29)
== END 2023-06-08 10:57 | disposition home or self-care (01) ==
LOC: MEDOUTP 10:56
PROVIDERS: PCP Family Medicine; Referring Provider Family Medicine; Visit Provider Family Medicine
DX: D83.9 Common variable immunodeficiency, unspecified (principal)
CPT/HCPCS: 96365; 96366; A4216; J1568

== ENCOUNTER 2023-07-06 09:53 | Outpatient (CLI) | payer MEDICARE, OTHER, SELFPAY ==
[2019-03-11 14:03] VITALS: BMI 24.3
[2023-07-06] MEDS: 0.9% NaCl Peripheral Flush Adult/Peds IV (10:05)
[2023-07-06] MEDS: Immune Globulin 20 gm Premixed Solution 68 BAG IV (10:10)
[2023-07-06 10:12] VITALS: BP 130/58; PULSE 75; RESP 16; TEMP 36.4; O2SAT 98; BMI 24.1
== END 2023-07-06 09:54 | disposition home or self-care (01) ==
LOC: MEDOUTP 09:53
PROVIDERS: PCP Family Medicine; Referring Provider Family Medicine; Visit Provider Family Medicine
DX: D83.9 Common variable immunodeficiency, unspecified (principal)
CPT/HCPCS: 96365; 96366; A4216; J1568

== ENCOUNTER 2023-08-10 10:34 | Outpatient (CLI) | payer MEDICARE, OTHER, SELFPAY ==
[2019-03-11 14:03] VITALS: BMI 24.3
[2023-08-10] MEDS: 0.9% NaCl Peripheral Flush Adult/Peds IV (10:46)
[2023-08-10] MEDS: Immune Globulin 20 gm Premixed Solution 68 BAG IV (10:55)
[2023-08-10 11:01] VITALS: BMI 24.3
== END 2023-08-10 10:35 | disposition home or self-care (01) ==
LOC: MEDOUTP 10:34
PROVIDERS: PCP Family Medicine; Referring Provider Family Medicine; Visit Provider Family Medicine
DX: D83.9 Common variable immunodeficiency, unspecified (principal)
CPT/HCPCS: 96365; 96366; A4216; J1568

== ENCOUNTER 2023-09-07 10:00 | Outpatient (CLI) | payer MEDICARE, OTHER, SELFPAY ==
[2019-03-11 14:03] VITALS: BMI 24.3
[2023-09-07 10:25] VITALS: BP 114/51; PULSE 64; RESP 16; TEMP 36.1; O2SAT 97; BMI 24.3
[2023-09-07] MEDS: 0.9% NaCl Peripheral Flush Adult/Peds IV ×2 (10:29→12:13)
[2023-09-07] MEDS: Immune Globulin 20 gm Premixed Solution 68 BAG IV (10:38)
== END 2023-09-07 10:01 | disposition home or self-care (01) ==
LOC: MEDOUTP 10:01
PROVIDERS: PCP Family Medicine; Referring Provider Family Medicine; Visit Provider Family Medicine
DX: D83.9 Common variable immunodeficiency, unspecified (principal)
CPT/HCPCS: 96365; 96366; A4216; J1568

== ENCOUNTER 2023-10-05 09:55 | Outpatient (CLI) | payer MEDICARE, OTHER, SELFPAY ==
[2019-03-11 14:03] VITALS: BMI 24.3
[2023-10-05 10:05] VITALS: BP 105/45; PULSE 63; RESP 16; TEMP 36.7; O2SAT 100
[2023-10-05] MEDS: Immune Globulin 20 gm Premixed Solution 68 BAG IV (10:28)
[2023-10-05] MEDS: 0.9% NaCl Peripheral Flush Adult/Peds IV (10:28)
== END 2023-10-05 09:56 | disposition home or self-care (01) ==
LOC: MEDOUTP 09:56
PROVIDERS: PCP Family Medicine; Referring Provider Family Medicine; Visit Provider Family Medicine
DX: D83.9 Common variable immunodeficiency, unspecified (principal)
CPT/HCPCS: 96365; 96366; A4216; J1568

== ENCOUNTER 2023-11-09 10:20 | Outpatient (CLI) | payer MEDICARE, OTHER, SELFPAY ==
[2019-03-11 14:03] VITALS: BMI 24.3
[2023-11-09 10:29] VITALS: BP 117/62; PULSE 73; RESP 16; TEMP 36.6
[2023-11-09] MEDS: 0.9% NaCl Peripheral Flush Adult/Peds IV (11:30)
[2023-11-09] MEDS: Immune Globulin 20 gm Premixed Solution 68 BAG IV (11:30)
== END 2023-11-09 10:21 | disposition home or self-care (01) ==
LOC: MEDOUTP 10:20
PROVIDERS: PCP Family Medicine; Referring Provider Family Medicine; Visit Provider Family Medicine
DX: D83.9 Common variable immunodeficiency, unspecified (principal)
CPT/HCPCS: 96365; 96366; A4216; J1568

== ENCOUNTER → 2023-11-16 | Outpatient (CLI) | payer MEDICARE, OTHER, SELFPAY ==
[2019-03-11 14:03] VITALS: BMI 24.3
[2023-11-16 15:31] LABS: Absolute Lymphocyte Count 0.84 X10^3/uL (0.83-4.51); Absolute Neutrophil Count 2.5 X10^3/uL (2.0-7.7); Hematocrit 40.3 % (40-54); Hemoglobin 13.1 g/dL (13.0-16.5); Lymphocyte # 0.84 X10^3/ul (0.83-4.51); Lymphocyte % 22.5 % (19-41); Mean Corp Hgb Conc 32.5 g/dL (32-36); Mean Corpuscular Volume 92.2 fL (80-94); Mean Platelet Vol. 11.8 fl (6.2-12.0); Monocyte# 0.43 X10^3/uL; Monocyte% 11.5 % (0-10); NRBC Flagged by Analyzer 0 % (0-5); Neutrophil # 2.45 X10^3/uL (2.7-7.7); Neutrophil % 65.7 % (47-70); Platelet Count 103 K/mm3 (150-450); RBC Distribution Width CV 13.2 % (11.6-14.6); Red Blood Count 4.37 M/mm3 (4.6-6.2); White Blood Count 3.7 K/mm3 (4.4-11.0)
[2023-11-16 16:00] LABS: ALB/GLOB Ratio 1.1 RATIO (0.9-2.4); AST(SGOT) 26 U/L (15-37); Alanine Aminotransfer ALT/SGPT 26 U/L (16-61); Albumin, Serum 3.6 g/dL (3.2-5.0); Alkaline Phosphatase 54 U/L (45-117); Anion Gap 7 (5-15); BUN 17 mg/dL (7-18); BUN/Creat Ratio 19.2 RATIO (10-20); Calcium,Total 9.1 mg/dL (8.5-10.1); Chloride 104 mmol/L (98-107); Cholesterol 93 mg/dL (200); Creatinine, Serum 0.89 mg/dL (0.70-1.30); EST Glomerular Filtration Rate 90 mL/min (>60); Est Glom Filt Rate - Afr Amer 109 mL/min (>60); Globulin 3.2 g/dL (2.2-4.2); Glucose 90 mg/dL (74-106); High Density Lipoprotein 31 mg/dL; Protein, Total 6.8 g/dL (6.4-8.2); Sodium Level 139 mmol/L (136-145); Triglycerides 123 mg/dL; Very Low Density Lipoprotein 25 mg/dL (5-40)
--- OUTSIDE RECORDS SUMMARY | 2023-11-16 20:12 | XMS RPT_ITS | CCD ---
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 [facility] note* Diagnosis Parkinson disease (HCC)- Primary Paralysis agitans documented in this encounter [facility] Summary Purpose Family History No Family History Records FoundNo Family History Records FoundNo Family History Records FoundNo Family History Records Found Advance Directives No Advanced Directives Records FoundNo Advanced Directives Records FoundNo Advanced Directives Records FoundNo Advanced Directives Records Found Additional Source Comments (unrecognized sect ion and content) No Status Records FoundNo Status Records FoundNo Status Records FoundNo Status Records Found INFORMATION SOURCE (unrecogn ized section and content) DATE CREATED AUTHOR AUTHOR'S ORGANIZ ATION 08/09/2019 [facility] DATE CREATED AUTHOR AUTHOR'S ORGANIZ ATION 12/30/2022 [facility] DATE CREATED AUTHOR AUTHOR'S ORGANIZ ATION 10/14/2023 [facility] nter Source Comments (unrecognize d section and content) In the event this informatio n is protected by the Federal Confidentiality of Alcohol and Drug Abuse Patient Records regulations: The Federal rules restrict any use of the information to criminally investigate or prosecute any alcohol or drug abuse patient.[facility] the event this information is protected by the Federal Confidentiality of Alcohol and Drug Abuse Patient Records regulations: The Federal rules restrict any use of the information to criminally investigate or prosecute any alcohol or drug abuse patient.[facility] the event this information is protected by the Federal Confidentiality of Alcohol and Drug Abuse Patient Records regulations: The Federal rules restrict any use of the information to criminally investigate or prosecute any alcohol or drug abuse patient.[facility] Reason for Visit (unrecogniz ed section and content) Specialty Diagnoses / Procedures Referred By Laura angulo Referred To Contact [facility] Diagnoses Parkinson's disease Drivers evaluation Procedures NEW RS OT COMM REINTEGRATION Errol Larson MD [address] [place] [address] [facility] [address] [address] Referral ID Status Reason Start Date Expiration Date V isits Requested Visits Authorized [id number] Authorized 09/04/2021 09/03/2022 99 99 Reason Comments OT EVAL Reason Comments Consult Parkinsons Care Teams (unrecognized sec tion and content) Speech Therapist Technician Relationship Specialty Start Date End Date Lacy Goldberg NO FORWARDING ADDRESS PCP - General 06/27/02 Speech Therapist Technician Relationship Specialty Start Date End Date Lacy Goldberg NO FORWARDING ADDRESS PCP - General 06/27/02 FOR RECORDS PERTAINING TO PATIENTS WHO ARE OR HAVE BEEN ENROLLED IN A CHEMICAL DEPENDENCY/SUBSTANCEABUSE PROGRAM, SOME INFORMATION MAY BE OMITTED. This clinical summary was aggregated from multiple sources. Caution should be exercised in using it in the provision of clinical care. This summary normalizes information from multiple sources, and as a consequence, information in this document may materially change the coding, format and clinical context of patient data. In addition, data may be omitted in some cases. CLINICAL DECISIONS SHOULD BE BASED ON THE PRIMARY CLINICAL RECORDS. [facility] [employer] [facility]. provides no warranty or guarantee of the accuracy or completeness of information in this document.
== END | disposition home or self-care (01) ==
LOC: MFPLAB 11:48
PROVIDERS: PCP Family Medicine; Visit Provider Family Medicine
DX: I25.10 Atherosclerotic heart disease of native coronary artery without angina pectoris (principal); R41.89 Other symptoms and signs involving cognitive functions and awareness
CPT/HCPCS: 36415; 80053; 80061; 85025

== ENCOUNTER 2023-12-07 10:31 | Outpatient (CLI) | payer MEDICARE, OTHER, SELFPAY ==
[2019-03-11 14:03] VITALS: BMI 24.3
[2023-12-07 10:46] VITALS: BP 116/61; PULSE 62; RESP 16; TEMP 36; O2SAT 100
[2023-12-07] MEDS: 0.9% NaCl Peripheral Flush Adult/Peds IV (10:49)
[2023-12-07] MEDS: Immune Globulin 20 gm Premixed Solution 68 BAG IV (11:37)
== END 2023-12-07 10:32 | disposition home or self-care (01) ==
LOC: MEDOUTP 10:31
PROVIDERS: PCP Family Medicine; Referring Provider Family Medicine; Visit Provider Family Medicine
DX: D83.9 Common variable immunodeficiency, unspecified (principal)
CPT/HCPCS: 96365; 96366; A4216; J1568

== ENCOUNTER 2024-01-04 10:20 | Outpatient (CLI) | payer MEDICARE, OTHER, SELFPAY ==
[2019-03-11 14:03] VITALS: BMI 24.3
[2024-01-04 10:36] VITALS: BP 105/50; PULSE 61; RESP 16; TEMP 36.6; O2SAT 98
[2024-01-04] MEDS: 0.9% NaCl Peripheral Flush Adult/Peds IV (10:39)
[2024-01-04] MEDS: Immune Globulin 20 gm Premixed Solution 68 BAG IV (10:58)
== END 2024-01-04 10:21 | disposition home or self-care (01) ==
LOC: MEDOUTP 10:20
PROVIDERS: PCP Family Medicine; Referring Provider Family Medicine; Visit Provider Family Medicine
DX: D83.9 Common variable immunodeficiency, unspecified (principal)
CPT/HCPCS: 96365; 96366; A4216; J1568

== ENCOUNTER 2024-02-08 10:24 | Outpatient (CLI) | payer MEDICARE, OTHER, SELFPAY ==
[2019-03-11 14:03] VITALS: BMI 24.3
[2024-02-08 10:50] VITALS: BP 111/52; PULSE 63; RESP 16; TEMP 36.3; O2SAT 100; BMI 24.1
[2024-02-08] MEDS: Immune Globulin 20 gm 20 GM/200 ML VIAL IV (11:23)
== END 2024-02-08 23:59 | disposition home or self-care (01) ==
LOC: MEDOUTP 10:24
PROVIDERS: PCP Family Medicine; Referring Provider Family Medicine; Visit Provider Family Medicine
DX: D83.9 Common variable immunodeficiency, unspecified (principal)
CPT/HCPCS: 96365; 96366; J1568

== ENCOUNTER 2024-03-08 10:31 | Outpatient (CLI) | payer MEDICARE, OTHER, SELFPAY ==
[2019-03-11 14:03] VITALS: BMI 24.3
[2024-03-08 10:52] VITALS: BP 128/75; PULSE 70; RESP 16; TEMP 36.4; O2SAT 97; BMI 23.8
[2024-03-08] MEDS: Immune Globulin 20 gm 20 GM/200 ML VIAL IV (11:03)
[2024-03-08] MEDS: 0.9% NaCl Peripheral Flush Adult/Peds IV (11:05)
== END 2024-03-08 23:59 | disposition home or self-care (01) ==
LOC: MEDOUTP 10:31
PROVIDERS: PCP Family Medicine; Referring Provider Family Medicine; Visit Provider Family Medicine
DX: D83.9 Common variable immunodeficiency, unspecified (principal)
CPT/HCPCS: 96365; 96366; A4216; J1568

== ENCOUNTER → 2024-03-28 | Outpatient (CLI) | payer MEDICARE, OTHER, SELFPAY ==
[2019-03-11 14:03] VITALS: BMI 24.3
[2024-03-28 11:09] LABS: PSA,Total - Annual Screen 4.65 ng/mL (0.00-4.00)
== END | disposition home or self-care (01) ==
LOC: LAB 10:00
PROVIDERS: PCP Family Medicine; Referring Provider Urology; Visit Provider Urology
DX: Z12.5 Encounter for screening for malignant neoplasm of prostate (principal)
CPT/HCPCS: 36415; 84153; G0103

== ENCOUNTER 2024-04-05 11:52 | Outpatient (CLI) | payer MEDICARE, OTHER, SELFPAY ==
[2019-03-11 14:03] VITALS: BMI 24.3
[2024-04-05] MEDS: 0.9% NaCl Peripheral Flush Adult/Peds IV (12:05)
[2024-04-05] MEDS: Immune Globulin 20 gm 20 GM/200 ML VIAL IV (12:05)
[2024-04-05 12:07] VITALS: BP 106/56; PULSE 78; RESP 16; TEMP 36.6; O2SAT 98; BMI 23.5
== END 2024-04-05 23:59 | disposition home or self-care (01) ==
LOC: MEDOUTP 11:52
PROVIDERS: PCP Family Medicine; Referring Provider Family Medicine; Visit Provider Family Medicine
DX: D83.9 Common variable immunodeficiency, unspecified (principal)
CPT/HCPCS: 96365; 96366; A4216; J1568

== ENCOUNTER 2024-05-09 09:34 | Outpatient (CLI) | payer MEDICARE, OTHER, SELFPAY ==
[2019-03-11 14:03] VITALS: BMI 24.3
[2024-05-09] MEDS: 0.9% NaCl Peripheral Flush Adult/Peds IV (09:52)
[2024-05-09] MEDS: Immune Globulin 20 gm 20 GM/200 ML VIAL IV (09:59)
[2024-05-09 10:02] VITALS: BP 114/56; PULSE 65; RESP 16; TEMP 36.1; O2SAT 100
== END 2024-05-09 23:59 | disposition home or self-care (01) ==
LOC: MEDOUTP 09:34
PROVIDERS: PCP Family Medicine; Referring Provider Family Medicine; Visit Provider Family Medicine
DX: D83.9 Common variable immunodeficiency, unspecified (principal)
CPT/HCPCS: 96365; 96366; A4216; J1568

== ENCOUNTER 2024-06-06 10:32 | Outpatient (CLI) | payer MEDICARE, OTHER, SELFPAY ==
[2019-03-11 14:03] VITALS: BMI 24.3
[2024-06-06 10:48] VITALS: BP 126/63; PULSE 70; RESP 16; TEMP 36.6; O2SAT 98; BMI 24.4
[2024-06-06] MEDS: Immune Globulin 10 gm 10 GM/100 ML VIAL IV ×2 (11:03→11:59)
== END 2024-06-06 23:59 | disposition home or self-care (01) ==
LOC: MEDOUTP 10:33
PROVIDERS: PCP Family Medicine; Referring Provider Family Medicine; Visit Provider Family Medicine
DX: D83.9 Common variable immunodeficiency, unspecified (principal)
CPT/HCPCS: 96365; 96366; A4216; J1568

== ENCOUNTER 2024-07-11 11:00 | Outpatient (CLI) | payer MEDICARE, OTHER, SELFPAY ==
[2019-03-11 14:03] VITALS: BMI 24.3
[2024-07-11 11:11] VITALS: BP 130/47; PULSE 59; RESP 16; TEMP 36.1; O2SAT 99; BMI 24.9
[2024-07-11] MEDS: 0.9% NaCl Peripheral Flush Adult/Peds IV (11:24)
[2024-07-11] MEDS: Immune Globulin 20 gm 20 GM/200 ML VIAL IV (11:37)
== END 2024-07-11 23:59 | disposition home or self-care (01) ==
LOC: MEDOUTP 11:00
PROVIDERS: PCP Family Medicine; Referring Provider Family Medicine; Visit Provider Family Medicine
DX: D83.9 Common variable immunodeficiency, unspecified (principal)
CPT/HCPCS: 96365; 96366; A4216; J1568

== ENCOUNTER 2024-08-08 11:34 | Outpatient (CLI) | payer MEDICARE, OTHER, SELFPAY ==
[2019-03-11 14:03] VITALS: BMI 24.3
[2024-08-08 11:47] VITALS: BP 132/56; PULSE 62; RESP 16; TEMP 35.8; O2SAT 99; BMI 24.4
[2024-08-08] MEDS: Immune Globulin 20 gm 20 GM/200 ML VIAL IV (12:01)
[2024-08-08] MEDS: 0.9% NaCl Peripheral Flush Adult/Peds IV (12:01)
== END 2024-08-08 23:59 | disposition home or self-care (01) ==
LOC: MEDOUTP 11:34
PROVIDERS: PCP Family Medicine; Referring Provider Family Medicine; Visit Provider Family Medicine
DX: D83.9 Common variable immunodeficiency, unspecified (principal)
CPT/HCPCS: 96365; 96366; A4216; J1568

== ENCOUNTER 2024-08-23 07:10 | Day surgery (SDC) | payer MEDICARE, OTHER, SELFPAY ==
[2019-03-11 14:03] VITALS: BMI 24.3
--- NOTE | 2024-08-22 15:25 | PAT.ANESEVAL ---
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 When Was Last Pacemaker Check QUESTION #4 FULL TEXT: You/Your Family Experience fever (hyperthermia) with Anesthesia Last Oral Intake Last Oral intake: Last Oral Intake NPO since Meds taken in AM with sips of water? Meds patient instructed to take am of surgery PONV PONV - senior living sales counselor: PONV - senior living sales counselor Female No 08/22/24 10:23 HX of Motion Sickness No 08/22/24 10:23 HX of N/V After Surgery No 08/22/24 10:23 Non-Smoker Yes 08/22/24 10:23 Duration of Surgery greater No 08/22/24 10:23 than 60 minutes Number of Risk Factors 1 08/22/24 10:23 PONV Score Low Risk 08/22/24 10:23 Height & Weight Height & Weight: Anesthesia: Height & Weight Height 5 ft 7 in 07/11/24 11:11 Respiratory Assessment Respiratory Assessment - senior living sales counselor: Respiratory Tract Infection Hx - senior living sales counselor Hx Respiratory Tract Infection No 08/22/24 10:23 STOP Sleep Apnea STOP Sleep Apnea - senior living sales counselor: STOP Sleep Apnea - senior living sales counselor Hx Hypertension No 08/22/24 10:23 Hx Sleep Apnea No 08/22/24 10:23 CPAP BIPAP Do you snore loudly (louder Yes 08/22/24 10:23 than talking or can be heard Do you often feel tired/ Yes 08/22/24 10:23 fatigued/ sleepy during daytime? Has anyone observed you stop No 08/22/24 10:23 breathing during sleep? STOP Results Positive 08/22/24 10:23 QUESTION #5 FULL TEXT : Do you snore loudly (louder than talking or can be heard through closed doors)? 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 Specify any problems Hx of Preganancy in last 3 No 08/22/24 10:23 Months Nurse Filling Out Transfusion DSCHRIBER 08/22/24 10:23 & Questions: Date: 08/22/24 08/22/24 10:23 Time: 10:26 08/22/24 10:23 Patient unable to answer at this time (ie. confused, unrespo /Reproduction History /Reproductive History - senior living sales counselor: /Reproductive Hx- senior living sales counselor Hx Now No 08/22/24 10:23 Gestational Age (in weeks): EDC: Hx Hx Para Hx Section SAB No 08/22/24 10:23 [facility] Medical History (Updated 08/22/24 @ 10:37 by Bebe Nava) Wears glasses Arthritis High cholesterol Easy bruising Back pain Non-smoker History of pain when walking History of echocardiogram History of stress test Cardiology follow-up encounter Parkinson disease Atherosclerosis of coronary artery of [place] heart without angina pectoris Hyperlipidemia Common variable immunodeficiency Benign prostate hyperplasia Basal cell carcinoma of left ear Home Medications ?Medication ?Instructions ?Recorded ?Last Taken ?Type multivitamin with folic acid 400 1 tab PO DAILY 06/10/13 08/19/24 History mcg tablet folic acid 400 mcg tablet 1 tab PO DAILY 12/24/13 Unknown History immune glob,gamma(IgG) 10 20 g .Route .[id number] 03/04/19 Unknown History ksoz-fnh-nyid-IgA 0 to 50 mcg/mL IV solution nitroglycerin 0.4 mg sublingual 0.4 mg sublingual Q5-15M PRN chest 04/03/19 Unknown Rx tablet pain #25 tabs celecoxib 200 mg capsule 200 mg PO BID 06/14/19 12/24/20 History ibuprofen 600 mg tablet 600 mg PO Q6H PRN pain #20 tabs 12/30/20 Unknown Rx aspirin 81 mg tablet,delayed 81 mg PO DAILY 01/05/21 08/19/24 History release (Adult Low Dose Aspirin) gabapentin 300 mg capsule 300 mg PO TID 09/06/21 Unknown History carbidopa 25 mg-levodopa 100 mg 1 tab PO .qid 02/01/23 Unknown History tablet escitalopram oxalate 5 mg tablet 5 mg PO DAILY 02/01/23 Unknown History (Lexapro) memantine 5 mg tablet 10 mg PO BID 02/01/23 Unknown History tramadol 50 mg tablet 50 mg PO BID PRN pain 02/01/23 Unknown History rosuvastatin 40 mg tablet 40 mg PO QHS 10/10/23 Unknown History metoprolol succinate 25 mg 25 mg PO DAILY #90 tabs 12/20/23 Unknown Rx tablet,extended release 24 hr Allergy/AdvReac Type Severity Reaction Status Date / Time No Known Allergies Allergy Verified 08/22/24 10:20 Family History Mother Heart disease valve replacement Father Parkinson disease Surgical History (Updated 08/22/24 @ 10:37 by Bebe Nava) History of cardiac catheterization Hx of colonoscopy Hx of transurethral resection of prostate History of coronary artery stent placement (03/21/19) History of herniorrhaphy History of bilateral cataract extraction Social History Smoking Status: Never smoker alcohol intake: current alcohol intake frequency: holidays/special occasions only substance use type: does not use caffeine: No Audit: Pertinent Findings Pertinent Findings EKG Perinent findings: December 28, 2020. Normal sinus rhythm. Stress test pertinent findings: January 18, 2021. Ejection fraction 73%. No ischemia noted. No previous infarct noted. Echo (EF%) pertinent findings: April 20, 2022. Ejection fraction 60%. Heart catheterization pertinent findings: March 21, 2019. Successful PCI with drug-eluting stent to the mid LAD. March 11, 2019. successful PCI with drug-eluting stent to mid and distal RCA Consult pertinent findings: October 10, 2023. Neri. #1 status post coronary artery stent placement. MILANA to the distal RCA. MILANA to the mid RCA. MILANA to the mid LAD. Patient currently has no symptoms of angina. No further cardiac testing is required. Patient is to continue his metoprolol Crestor and aspirin. #2 carotid bruit - patient does have moderate disease. Carotid scans will be repeated next year. Recommendation Anesthesia Recommendation Anesthesia recommendation: OPTIMIZED for anesthesia
[2024-08-23] VITALS (7 sets, daily range): BP systolic 91–167; BP diastolic 53–64; PULSE 74–87; RESP 16; TEMP 36.6–37.3; O2SAT 93–99; BMI 24.3
--- NOTE | 2024-08-23 07:28 | PCM.PRE.AN2 ---
ASA Classification* ASA Classification ASA Classification: 3 Assessment & Plan Anesthesia* Anesthesia Assessment Anesthesia Assessment: Discussed sedation and/or anesthesia options, risks, benefits, and alternatives with patient/parents/legal guardian/POA. Questions invited. The patient/parents/legal guardian/POA seems to understand and agrees to proceed with anesthesia plan. Reviewed the physical assessment, medical history, allergy history and patient home medications list prior to surgery/procedure/anesthetic and documented any changes. Performed airway and anesthesia risk assessments. Anesthesia Type Anesthesia Type: MAC Anesthesia Focused Assessment* Airway Assessment Mouth opens: >3 cm Mallampati Score: II Focused Labs Anesthesia Preop lab: CBC WBC 3.7 K/mm3 (4.4-11.0) L 11/16/23 11:48 RBC 4.37 M/mm3 (4.6-6.2) L 11/16/23 11:48 Hgb 13.1 g/dL (13.0-16.5) 11/16/23 11:48 Hct 40.3 % (40-54) 11/16/23 11:48 Plt Count 103 K/mm3 (150-450) L 11/16/23 11:48 CHEMISTRY Potassium 4.0 mmol/L (3.5-5.1) 11/16/23 11:48 Sodium 139 mmol/L (136-145) 11/16/23 11:48 BUN 17 mg/dL (7-18) 11/16/23 11:48 Creatinine 0.89 mg/dL (0.70-1.30) 11/16/23 11:48 Glucose 90 mg/dL (74-106) 11/16/23 11:48 TSH 2.77 uIU/mL (0.358-3.74) 05/18/18 09:10 COAG Pre-Assessment Diagnosis/Proposed Procedure Planned Operative Procedure(s): CSCOPE Anesthesia History Anesthesia History - 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 When Was Last Pacemaker Check QUESTION #4 FULL TEXT: You/Your Family Experience fever (hyperthermia) with Anesthesia Last Oral Intake Last Oral intake: Last Oral Intake NPO since Meds taken in AM with sips of water? Meds patient instructed to take am of surgery PONV PONV - director of home care hospice: PONV - director of home care hospice Female No 08/22/24 10:23 HX of Motion Sickness No 08/22/24 10:23 HX of N/V After Surgery No 08/22/24 10:23 Non-Smoker Yes 08/22/24 10:23 Duration of Surgery greater No 08/22/24 10:23 than 60 minutes Number of Risk Factors 1 08/22/24 10:23 PONV Score Low Risk 08/22/24 10:23 Height & Weight Height & Weight: Anesthesia: Height & Weight Height 5 ft 7 in 08/08/24 11:47 Respiratory Assessment Respiratory Assessment - director of home care hospice: Respiratory Tract Infection Hx - director of home care hospice Hx Respiratory Tract Infection No 08/22/24 10:23 STOP Sleep Apnea STOP Sleep Apnea - director of home care hospice: STOP Sleep Apnea - director of home care hospice Hx Hypertension No 08/22/24 10:23 Hx Sleep Apnea No 08/22/24 10:23 CPAP BIPAP Do you snore loudly (louder Yes 08/22/24 10:23 than talking or can be heard Do you often feel tired/ Yes 08/22/24 10:23 fatigued/ sleepy during daytime? Has anyone observed you stop No 08/22/24 10:23 breathing during sleep? STOP Results Positive 08/22/24 10:23 QUESTION #5 FULL TEXT : Do you snore loudly (louder than talking or can be heard through closed doors)? 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 Specify any problems Hx of Preganancy in last 3 No 08/22/24 10:23 Months Nurse Filling Out Transfusion DSCHRIBER 08/22/24 10:23 & Questions: Date: 08/22/24 08/22/24 10:23 Time: 10:08/22/24 10:23 Patient unable to answer at this time (ie. confused, unrespo /Reproduction History /Reproductive History - director of home care hospice: /Reproductive Hx- director of home care hospice Hx Now No 08/22/24 10:23 Gestational Age (in weeks): EDC: Hx Hx Para Hx Section SAB No 08/22/24 10:23 PFSH Medical History Wears glasses Arthritis High cholesterol Easy bruising Back pain Non-smoker History of pain when walking History of echocardiogram History of stress test Cardiology follow-up encounter Parkinson disease Atherosclerosis of coronary artery of [place] heart without angina pectoris Hyperlipidemia Common variable immunodeficiency Benign prostate hyperplasia Basal cell carcinoma of left ear Home Medications ?Medication ?Instructions ?Recorded ?Last Taken ?Type multivitamin with folic acid 400 1 tab PO DAILY 06/10/13 08/22/24 History mcg tablet folic acid 400 mcg tablet 1 tab PO DAILY 12/24/13 08/19/24 History immune glob,gamma(IgG) 10 20 g .Route .[id number] 03/04/19 08/08/24 History xilh-bpi-hdut-IgA 0 to 50 mcg/mL IV solution nitroglycerin 0.4 mg sublingual 0.4 mg sublingual Q5-15M PRN chest 04/03/19 Unknown Rx tablet pain #25 tabs celecoxib 200 mg capsule 200 mg PO BID 06/14/19 08/22/24 History ibuprofen 600 mg tablet 600 mg PO Q6H PRN pain #20 tabs 12/30/20 08/22/24 Rx aspirin 81 mg tablet,delayed 81 mg PO DAILY 01/05/21 08/19/24 History release (Adult Low Dose Aspirin) gabapentin 300 mg capsule 300 mg PO TID 09/06/21 08/22/24 History carbidopa 25 mg-levodopa 100 mg 1 tab PO .qid 02/01/23 08/23/24 History tablet escitalopram oxalate 5 mg tablet 5 mg PO DAILY 02/01/23 08/22/24 History (Lexapro) memantine 5 mg tablet 10 mg PO BID 02/01/23 08/22/24 History tramadol 50 mg tablet 50 mg PO BID PRN pain 02/01/23 Unknown History rosuvastatin 40 mg tablet 40 mg PO QHS 10/10/23 08/22/24 History metoprolol succinate 25 mg 25 mg PO DAILY #90 tabs 12/20/23 08/22/24 Rx tablet,extended release 24 hr Allergy/AdvReac Type Severity Reaction Status Date / Time No Known Allergies Allergy Verified 08/23/24 07:26 Family History Mother Heart disease valve replacement Father Parkinson disease Surgical History History of cardiac catheterization Hx of colonoscopy Hx of transurethral resection of prostate History of coronary artery stent placement (03/21/19) History of herniorrhaphy History of bilateral cataract extraction Social History Smoking Status: Never smoker alcohol intake: current alcohol intake frequency: holidays/special occasions only substance use type: does not use caffeine: No Review of Systems (Anesthesia) ROS Narrative System reviewed and no additional complaints, except as documented.
--- NOTE | 2024-08-23 08:06 | PCM.HP.BLA ---
History and Physical Date of Admission: 08/23/24 Intake Vital Signs 06/06/2410:48 07/10/2414:18 Height 5 ft 7 in 5 ft 7 in Weight: 5 lb 8 oz BMI 0.8 BP 148/70 H Blood Pressure Location Rt brachial Position Sitting Respiration 17 Pulse 70 Pulse Source Monitor Pulse Oximetry (%) 100 Oxygen Delivery Method room air Intake Visit Reasons: POSITIVE COLOGUARD Chief Complaint: Positive cologuard Is patient in pain?: No Allergies No Known Allergies Allergy (Verified 07/10/24 14:19) Medications ?Medication ?Instructions ?Recorded ?Confirmed ?Type multivitamin with folic acid 400 1 tab PO DAILY 06/10/13 07/10/24 History mcg tablet folic acid 400 mcg tablet 1 tab PO DAILY 12/24/13 07/10/24 History immune glob,gamma(IgG) 10 20 g .Route .w2svljf 03/04/19 07/10/24 History mjgx-lfh-nfco-IgA 0 to 50 mcg/mL IV solution nitroglycerin 0.4 mg sublingual 0.4 mg sublingual Q5-15M PRN chest 04/03/19 07/10/24 Rx tablet pain #25 tabs celecoxib 200 mg capsule 200 mg PO BID 06/14/19 07/10/24 History ibuprofen 600 mg tablet 600 mg PO Q6H PRN pain #20 tabs 12/30/20 07/10/24 Rx aspirin 81 mg tablet,delayed 81 mg PO DAILY 01/05/21 07/10/24 History release (Adult Low Dose Aspirin) gabapentin 300 mg capsule 300 mg PO TID 09/06/21 07/10/24 History carbidopa 25 mg-levodopa 100 mg 1 tab PO .qid 02/01/23 07/10/24 History tablet escitalopram oxalate 5 mg tablet 5 mg PO DAILY 02/01/23 07/10/24 History (Lexapro) memantine 5 mg tablet 10 mg PO BID 02/01/23 07/10/24 History tramadol 50 mg tablet 50 mg PO BID PRN pain 02/01/23 07/10/24 History rosuvastatin 40 mg tablet 40 mg PO QHS 10/10/23 07/10/24 History metoprolol succinate 25 mg 25 mg PO DAILY #90 tabs 12/20/23 07/10/24 Rx tablet,extended release 24 hr Have you fallen in the past year?: No PFSH Medical History Abnormal chest CT Atherosclerosis of coronary artery of [place] heart without angina pectoris Basal cell carcinoma of left ear Benign prostate hyperplasia Common variable immunodeficiency Hyperlipidemia Mass of upper lobe of right lung Parkinson disease Surgical History History of transurethral resection of prostate (12/30/20) History of coronary artery stent placement (03/21/19) History of herniorrhaphy History of bilateral cataract extraction Family History Mother Heart disease valve replacementFather Parkinson disease Social History Smoking Status: Never smoker alcohol intake: current alcohol intake frequency: holidays/special occasions only substance use type: does not use caffeine: No HPI HPI HPI: Patient is a 74-year-old male here with positive Cologuard. He has not had a colonoscopy in several years. He denies abdominal pain or blood in the stool or family history of colon cancer. ROS General General: Yes fatigue; No weight change, appetite, colon cancer, breast cancer or weakness HEENT HEENT: No difficulty swallowing, eye injury, eye surgery, swollen glands or hoarseness Endo Endocrine: No thyroid disease, diabetes mellitus, thyroid cancer, Hair loss, heat intolerance or cold intolerance Skin Skin: No rash or changing moles Musc Musculoskeletal: Yes back problems and rheumatoid arthritis; No arthritis, gout or joint pain Cardio Cardiovascular: Yes heart stent; No murmur, pacemaker, heart disease, atrial fibrillation, high blood pressure, heart attack, palpitations, shortness of breat with exertion or chest pain Psych Psychiatric: No depression, anxiety or hearing voices Resp Respiratory: Yes shortness of breath, No sleep apnea, No cough, No COPD, No asthma, No emphysema and No wheezing Gastro Gastrointestinal: No abdominal pain, No nausea or vomiting, Yes diarrhea, Yes constipation, No blood in stool, Yes acid reflux, No hemorrhoids, No ulcers, No gallbladder problem and No black,tarry stools Bunny Hematologic: No blood thinners, No blood disorders, No bleeding, No anemia and No blood clots Neuro Neurologic: No system reviewed and no additional complaints, except as documented, No as per HPI, No abnormal gait, No abnormal hearing, No abnormal movements, No abnormal speech, No behavioral changes, No burning sensations, No confusion, No convulsions, No disequilibrium, No dizziness, No localized weakness, No frequent falls, No headache(s), No lack of coordination, No loss of vision, No memory loss, Yes numbness, No other visual disturbances, No radicular pain, No restless legs, No sensory deficit, No syncope, Yes tingling, No tremor(s), No weakness and No other Exam Const General: cooperative Orientation: alert and oriented x3 HENMT Head: normal to inspection Neck Neck: normal visual inspection and full ROM Chest Chest palpation & inspection: normal inspection of the chest Resp Effort & Inspection: normal respiratory effort Auscultation: clear to auscultation bilaterally Cardio Rate: regular rate Rhythm: regular rhythm GI Inspection: non-distended Palpation: soft and nontender Skin General: no rashes or lesions noted Neuro General: patient alert and patient oriented x3 Extrem General: full ROM Psych Appearance: grossly normal Mental Status: mental status grossly normal Assessment and Plan Assessment and Plan (1) Positive colorectal cancer screening using Cologuard test: Status: Acute Plan: I explained endoscopy in detail to the patient. I explained the risks including but not limited to stroke or heart attack with anesthesia, perforation of the GI tract, bleeding, infection. I explained that any of these could necessitate further emergency surgery. The patient understands and all questions were answered sufficiently. The patient wishes to proceed with procedure. Jameel Oseguera MD Pager: [facility] [address] [place] [address], [address] [place] [address] Office: I have examined the patient and the H&P has been reviewed. There are no clinical changes since date of exam.
--- NOTE | 2024-08-23 08:54 | OP.CCLET_ITS ---
08/23/2024 Mahesh Avendano [address] [facility] [place] [address] Re : Colonoscopy procedure for Primo Kelly Dear Dr. Avendano This procedure was performed on Friday, August 23, 2024. My impressions and recommendations are as follows: Impressions : - Preparation of the colon was poor. - Tortuous colon. - No specimens collected. Recommendations : - Discharge patient to home. - Resume previous diet. - Continue present medications. - Repeat colonoscopy in 1 year for surveillance. - Perform an air contrast barium enema. My findings are described in the full procedure note, which is enclosed. If I can be of further assistance, please feel free to contact me at Doctor phone number(s): , Work: . Sincerely, Jameel Oseguera MD 08/23/2024 8:53:45 AM This report has been signed electronically.
--- NOTE | 2024-08-23 08:54 | OP.COLON_ITS ---
Patient Name: Primo Kelly Procedure Date: 08/23/2024 8:12 AM Date of : 1950 Age: 74 Procedure: Colonoscopy Indications: Positive Cologuard test Providers: Jameel Oseguera MD Medicines: Propofol per Anesthesia Patient Profile: Last Colonoscopy: more than 10 years ago. Complications: No immediate complications. Estimated blood loss: Minimal. Procedure: Pre-Anesthesia Assessment: - Prior to the procedure, a History and Physical was performed, and patient medications and allergies were reviewed. The patient's tolerance of previous anesthesia was also reviewed. The risks and benefits of the procedure and the sedation options and risks were discussed with the patient. All questions were answered, and informed consent was obtained. Prior Anticoagulants: The patient has taken no anticoagulant or antiplatelet agents. After reviewing the risks and benefits, the patient was deemed in satisfactory condition to undergo the procedure. After I obtained informed consent, the scope was passed under direct vision. Throughout the procedure, the patient's blood pressure, pulse, and oxygen saturations were monitored continuously. The pediatric colonoscope was introduced through the anus and advanced to the transverse colon. The colonoscopy was performed without difficulty. The patient tolerated the procedure well. The quality of the bowel preparation was poor. Scope In: 8:24:21 AM Scope Withdrawal Time 0 hours 6 minutes 23 seconds Scope Out: 8:50:00 AM Total Procedure Duration Time 0 hours 25 minutes 39 seconds Findings: The colon (entire examined portion) was significantly tortuous. Advancing the scope required changing the patient to a supine position. Impression: - Preparation of the colon was poor. - Tortuous colon. - No specimens collected. Recommendation: - Discharge patient to home. - Resume previous diet. - Continue present medications. - Repeat colonoscopy in 1 year for surveillance. - Perform an air contrast barium enema. Procedure Code(s): --- Professional --- 63903, 53, Colonoscopy, flexible; diagnostic, including collection of specimen(s) by brushing or washing, when performed (separate procedure) Diagnosis Code(s): --- Professional --- R19.5, Other fecal abnormalities Q43.8, Other specified congenital malformations of intestine CPT copyright 2021 [employer]. All rights reserved. The codes documented in this report are preliminary and upon line server review may be revised to meet current compliance requirements. Jameel Oseguera MD 08/23/2024 8:53:45 AM This report has been signed electronically. Number of Addenda: 0 Note Initiated On: 08/23/2024 8:12 AM
--- NOTE | 2024-08-23 08:59 | PCM.POST.ANE ---
Anesthesia: Postop Eval I Current Vital Signs Temperature: 99.1 F Pulse Rate: 76 Blood Pressure: 96/60 Respiratory Rate: 16 Pulse Ox: 95 Oxygen Delivery Method: Room Air Assessment Airway patent: Yes Spontaneous unlabored respirations: Yes Mental status: Asleep nausea: No Vomiting: No Anesthesia Complication: No Fluid Hydration Crystalloid volume administer (ml): 60 Total IV fluid infused: 60 Progress Note Anesthesia document: Postop Eval 1 completed: Yes
--- NOTE | 2024-08-23 09:11 | PCM.POSTANE2 ---
Anesthesia Postop Eval I Sum Postop Eval Completion status Anesthesia document: Postop Eval 1 completed: Yes Anesthesia Postop Eval I Summary Anesthesia Postop Eval I Summary: Anesthesia Postop Eval I: Assessment Summary Airway patent Yes 08/23/24 09:01 [email or web address] Spontaneous unlabored Yes 08/23/24 09:01 [email or web address] respirations Mental status Asleep 08/23/24 09:01 [email or web address] nausea No 08/23/24 09:01 [email or web address] Vomiting No 08/23/24 09:01 [email or web address] Anesthesia Postop Eval I: Fluid Summary Crystalloid volume administer 60 08/23/24 09:01 [email or web address] (ml) Colloids volume administered ( ml) Blood Product volume administered (ml) Total IV fluid infused 60 08/23/24 09:01 [email or web address] Anesthesia Postop Eval I: Summary Notes Anesthesia Complication No 08/23/24 09:01 [email or web address] Anesthesia Complication Comment: Post-operative progress note Anesthesia: Postop Eval II Evaluation Mental status: Awake Pain Level: 0 nausea: No Vomiting: No
== END 2024-08-23 10:01 | disposition home or self-care (01) ==
LOC: EN 07:11 → AC 07:13
PROVIDERS: PCP Family Medicine; Referring Provider Family Medicine; Visit Provider Surgery
PROC: 0DJD8ZZ Inspection of Lower Intestinal Tract, Via Natural or Artificial Opening Endoscopic (ICD-10-PCS; CPT 45378; principal; 2024-08-23 08:10)
DX: Z12.11 Encounter for screening for malignant neoplasm of colon (principal); R19.5 Other fecal abnormalities; I25.10 Atherosclerotic heart disease of native coronary artery without angina pectoris; E78.00 Pure hypercholesterolemia, unspecified; K21.9 Gastro-esophageal reflux disease without esophagitis; Q43.8 Other specified congenital malformations of intestine; Z79.82 Long term (current) use of aspirin; Z79.899 Other long term (current) drug therapy
CPT/HCPCS: G0121; A4216; J2405

== ENCOUNTER 2024-09-05 11:12 | Outpatient (CLI) | payer MEDICARE, OTHER, SELFPAY ==
[2019-03-11 14:03] VITALS: BMI 24.3
[2024-09-05] MEDS: Immune Globulin 20 gm 20 GM/200 ML VIAL IV (11:51)
[2024-09-05] MEDS: 0.9% NaCl Peripheral Flush Adult/Peds IV (11:51)
[2024-09-05 12:02] VITALS: BP 136/53; PULSE 62; RESP 16; TEMP 36.5; O2SAT 100; BMI 24.3
== END 2024-09-05 23:59 | disposition home or self-care (01) ==
LOC: MEDOUTP 11:15
PROVIDERS: PCP Family Medicine; Referring Provider Family Medicine; Visit Provider Family Medicine
DX: D83.9 Common variable immunodeficiency, unspecified (principal)
CPT/HCPCS: 96365; 96366; A4216; J1568

== ENCOUNTER → 2024-09-11 | Outpatient (CLI) | payer MEDICARE, OTHER, SELFPAY ==
[2019-03-11 14:03] VITALS: BMI 24.3
--- NOTE | 2024-09-11 08:11 | RAD_ITS ---
STUDY: BARIUM ENEMA. REASON FOR EXAM: Male, 74 years old. Incomplete colonoscopy/tortuous colon FLUOROSCOPY TIME (if supplied): ( 1 minute and 40 seconds ) minutes/seconds. 93.09 mGy. 7 images were obtained. TECHNIQUE: A baggage handler film was obtained. Following this, barium enema was introduced retrograde through the rectum. Entire colon was opacified. COMPARISON: None. FINDINGS: The gas pattern is unremarkable. The patient is status post vertebral plasty of the L1 vertebrae. Scattered residual fecal material is seen in the rectosigmoid colon. Contrast was introduced retrograde. No evidence of obstruction. No mass lesion is seen. Redundancy of the sigmoid colon. 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 Scattered residual fecal material seen in the rectosigmoid colon. Electronically Signed: Derick Strong MD at 13:52 EST ,
== END | disposition home or self-care (01) ==
LOC: RAD 08:08
PROVIDERS: PCP Family Medicine; Referring Provider Surgery; Visit Provider Surgery
DX: Q43.8 Other specified congenital malformations of intestine (principal)
CPT/HCPCS: 74280

== ENCOUNTER 2024-10-10 09:29 | Outpatient (CLI) | payer MEDICARE, OTHER, SELFPAY ==
[2019-03-11 14:03] VITALS: BMI 24.3
[2024-10-10] MEDS: 0.9% NaCl Peripheral Flush Adult/Peds IV (09:45)
[2024-10-10 09:52] VITALS: BP 127/58; PULSE 65; RESP 16; TEMP 36.4; O2SAT 99; BMI 24.7
[2024-10-10] MEDS: Immune Globulin 20 gm 20 GM/200 ML VIAL IV (09:59)
== END 2024-10-10 23:59 | disposition home or self-care (01) ==
LOC: MEDOUTP 09:30
PROVIDERS: PCP Family Medicine; Referring Provider Family Medicine; Visit Provider Family Medicine
DX: D83.9 Common variable immunodeficiency, unspecified (principal)
CPT/HCPCS: 96365; 96366; A4216; J1568

== ENCOUNTER → 2024-10-29 | Outpatient (CLI) | payer MEDICARE, OTHER, SELFPAY ==
[2019-03-11 14:03] VITALS: BMI 24.3
[2024-10-29 15:22] LABS: Absolute Neutrophil Count 3.2 X10^3/uL (2.0-7.7); Basophil# 0.01 X10^3/uL; Basophil% 0.2 % (0-1); Hematocrit 41.1 % (40-54); Hemoglobin 13.7 g/dL (13.0-16.5); Lymphocyte % 19.3 % (19-41); Mean Corp Hgb Conc 33.3 g/dL (32-36); Mean Corpuscular Hgb 30.5 pg (27.0-32.0); Mean Corpuscular Volume 91.5 fL (80-94); Mean Platelet Vol. 11.4 fl (6.2-12.0); Monocyte% 10.7 % (0-10); NRBC Flagged by Analyzer 0 % (0-5); Neutrophil # 3.23 X10^3/uL (2.7-7.7); Neutrophil % 69.4 % (47-70); Platelet Count 126 K/mm3 (150-450); RBC Distribution Width CV 12.9 % (11.6-14.6); RBC Distribution Width SD 42.5 fl (35.1-43.9); Red Blood Count 4.49 M/mm3 (4.6-6.2); White Blood Count 4.7 K/mm3 (4.4-11.0)
[2024-10-30 02:11] LABS: ALB/GLOB Ratio 1.8 RATIO (0.9-2.4); AST(SGOT) 35 U/L (<=37); Alanine Aminotransfer ALT/SGPT 31 U/L (<=46); Albumin, Serum 4.3 g/dL (3.4-4.8); Alkaline Phosphatase 63 U/L (40-129); Anion Gap 11 (5-15); BUN 15 mg/dL (4-19); BUN/Creat Ratio 16.3 RATIO (10-20); Calcium 9.6 mg/dL (7.6-11.0); Carbon Dioxide 25.1 mmol/L (22.0-29.0); Chloride 102 mmol/L (96-108); EST Glomerular Filtration Rate 86 (>60); Globulin 2.4 g/dL (2.2-4.2); Glucose 80 mg/dL (70-99); Potassium 4.5 mmol/L (3.3-5.1); Protein, Total 6.7 g/dL (5.9-8.4); Sodium Level 138 mmol/L (133-145); Total Bilirubin 0.52 mg/dL (0.00-1.30)
[2024-10-30 10:55] LABS: Vitamin B12 555 pg/mL (180-914)
[2024-10-30 16:21] LABS: Hemoglobin A1c 5.8 % (<=5.6)
== END | disposition home or self-care (01) ==
LOC: MTLAB 12:32
PROVIDERS: PCP Family Medicine; Referring Provider Family Medicine; Visit Provider Family Medicine
DX: R53.83 Other fatigue (principal); R79.89 Other specified abnormal findings of blood chemistry
CPT/HCPCS: 36415; 80053; 82607; 82746; 83036; 84439; 84443; 85025

== ENCOUNTER 2024-11-07 10:38 | Outpatient (CLI) | payer MEDICARE, OTHER, SELFPAY ==
[2019-03-11 14:03] VITALS: BMI 24.3
[2024-11-07 11:02] VITALS: BP 121/58; PULSE 82; RESP 16; TEMP 36.1; O2SAT 99; BMI 22.7
[2024-11-07] MEDS: 0.9% NaCl Peripheral Flush Adult/Peds IV (11:07)
[2024-11-07] MEDS: Immune Globulin 20 gm 20 GM/200 ML VIAL IV (11:12)
== END 2024-11-07 23:59 | disposition home or self-care (01) ==
LOC: MEDOUTP 10:38
PROVIDERS: PCP Family Medicine; Referring Provider Family Medicine; Visit Provider Family Medicine
DX: D83.9 Common variable immunodeficiency, unspecified (principal)
CPT/HCPCS: 96365; 96366; A4216; J1568

== ENCOUNTER 2024-12-05 10:57 | Outpatient (CLI) | payer MEDICARE, OTHER, SELFPAY ==
[2019-03-11 14:03] VITALS: BMI 24.3
[2024-12-05 11:09] VITALS: BP 107/52; PULSE 83; RESP 16; TEMP 35.7; O2SAT 100
[2024-12-05] MEDS: Immune Globulin 20 gm 20 GM/200 ML VIAL IV (11:29)
[2024-12-05] MEDS: 0.9% NaCl Peripheral Flush Adult IV (11:30)
== END 2024-12-05 23:59 | disposition home or self-care (01) ==
LOC: MEDOUTP 10:57
PROVIDERS: PCP Family Medicine; Referring Provider Family Medicine; Visit Provider Family Medicine
DX: D83.9 Common variable immunodeficiency, unspecified (principal)
CPT/HCPCS: 96365; 96366; A4216; J1568

== ENCOUNTER → 2024-12-17 | Outpatient (CLI) | payer MEDICARE, OTHER, SELFPAY ==
[2019-03-11 14:03] VITALS: BMI 24.3
--- NOTE | 2024-12-17 13:55 | CDU_ITS ---
Reason For Study Reason For Study: BRUIT Rt. Velocities/BP Lt. Velocities/BP Prox CCA 107.2/13.9 cm/sec. Prox CCA 142.3/23.6 cm/sec. Mid CCA 74.4/13.0 cm/sec. Mid CCA 136.8/19.9 cm/sec. Dist CCA 65.8/10.6 cm/sec. Dist CCA 91.1/19.9 cm/sec. Prox ICA 177.7/31.6 cm/sec. Prox ICA 129.5/10.8 cm/sec. Mid ICA 134.4/19.4 cm/sec. Mid ICA 105.8/19.9 cm/sec. Dist ICA 125.3/28.5 cm/sec. Dist ICA 100.3/21.7 cm/sec. Rt. ICA/CCA = 177.7/74.4=2.3. Lt. ICA/CCA = 129.5/136.8=0.9. Prox ECA 150.9/8.4 cm/sec. Prox ECA 146.9/10.8 cm/sec. Rt. Vert. 52.3/13.9 cm/sec. Lt. Vert. 54.7/8.4 cm/sec. Right Extracranial There is homogeneous, smooth atherosclerotic plaque noted in the right common carotid artery. There is heterogeneous, irregular atherosclerotic plaque noted in the right internal carotid artery. There is heterogeneous, irregular atherosclerotic plaque noted in the right external carotid artery. Antegrade flow is noted in the right vertebral artery. Left Extracranial There is heterogeneous, irregular atherosclerotic plaque noted in the left common carotid artery. There is heterogeneous, irregular atherosclerotic plaque noted in the left internal carotid artery. There is heterogeneous, irregular atherosclerotic plaque noted in the left external carotid artery. Antegrade flow is noted in the left vertebral artery. Procedure Carotid Duplex 77022. This is a Carotid Duplex examination using B-mode, color flow and specral Doppler. Exam performed in department. VL/Carotid Duplex Ultrasound Interpretation Summary Moderate (50-69%) stenosis right extracranial internal carotid. Mild (<50%) glory nosis left extracranial internal carotid. Flow within the vertebral arteries is antegrade bilaterally. Ordering Physician: Demian Ramsay Referring Physician: Mahesh Avendano Performed By: Lisa Kohler, EMANUEL, RVT
== END | disposition home or self-care (01) ==
LOC: CVS 13:21
PROVIDERS: PCP Family Medicine; Referring Provider Internal Medicine Cardiovascular Disease; Visit Provider Internal Medicine Cardiovascular Disease
DX: R09.89 Other specified symptoms and signs involving the circulatory and respiratory systems (principal)
CPT/HCPCS: 93880

== ENCOUNTER → 2024-12-25 | Outpatient (CLI) | payer MEDICARE, OTHER, SELFPAY ==
[2019-03-11 14:03] VITALS: BMI 24.3
== END | disposition home or self-care (01) ==
LOC: MTLAB 07:26
PROVIDERS: PCP Family Medicine; Referring Provider Family Medicine; Visit Provider Family Medicine
DX: R79.89 Other specified abnormal findings of blood chemistry (principal)
CPT/HCPCS: 36415; 84439

== ENCOUNTER 2025-01-02 10:50 | Outpatient (CLI) | payer MEDICARE, OTHER, SELFPAY ==
[2019-03-11 14:03] VITALS: BMI 24.3
[2025-01-02 10:58] VITALS: BP 116/76; PULSE 82; RESP 16; TEMP 36.2; O2SAT 100; BMI 23.8
[2025-01-02] MEDS: 0.9% NaCl Peripheral Flush Adult IV (11:07)
[2025-01-02] MEDS: Immune Globulin 20 gm 20 GM/200 ML VIAL IV (11:08)
== END 2025-01-02 23:59 | disposition home or self-care (01) ==
PROVIDERS: PCP Family Medicine; Referring Provider Family Medicine; Visit Provider Family Medicine
DX: D83.9 Common variable immunodeficiency, unspecified (principal)
CPT/HCPCS: 96365; 96366; A4216; J1568

== ENCOUNTER 2025-01-06 14:30 | Outpatient (RCR) | payer MEDICARE, OTHER, SELFPAY ==
[2019-03-11 14:03] VITALS: BMI 24.3
--- NOTE | 2024-12-04 16:59 | HP.PTEVAL_ITS ---
Patient's Visit Information Visit Information Visit Information: FRANCISCO CONNOR is a 74 year old M referred to Physical Therapy by KIM Mendenhall with a diagnosis of PD (balance/Falls). Date of Evaluation: 12/04/24 Physical Therapist: VANDA Shultz Visit Plan Frequency: 2x /Week Duration: 2 Months Plan: 2X/ week for 4 weeks for Postural and trunk stretching (LTR, Wall stretch, trunk rotation to touch the wall), gait training, BW walking, changing direction, dual tasking (such as opp arm and leg and counting BW by 2's etc), stepping over objects with HEP Subjective Subjective: Pt was dx 8 years ago with PD. He take [employer] classes here (2 yoga classes, Antonietta) for a total of 8 classes. Pt has been having some falls. 2-3 times. He was trying to stand on a bucket and fell. He also fell off a ladder. They are trying to take away his car privileges. He reports that he has occ tripped on his feet with walking but he tries to pay attention to that. He reports that he has no trouble getting out of a chair but uses his arms most of the time. His is Kimmy. He has no trouble rolling over in bed. He is able to pick things up from the floor within reason. Stairs: He is able to go up and down recip with 1 railing. He might have a little trouble going up and down a curb step. He has no dizziness. He has been getting shots in his back and his last one was a few weeks ago Pain L foot: Pain Intensity (Out of 10): 1 Objective Objective: Gait: walks with some slight veering, decrease stride length, decreased arm swing LE MMT: B hip flex 4+/5 B knee ext 4+/5 B knee flex 4+/5 FGA: 22 CatSIB: 120 Sit to stand: Able to stand up without UE's Had a hard time with standing opp arm and leg but able to get it after a few tries and able to get X 10 in row Walking BW was tough for the patient...started with larger steps and then got shorter and the feeling of retro LOB Stepping over a 4 inch block he did have retro LOB X 1 Balance/Special Test Scores Functional Gait Assessment Score: 22 % Disability: 26.6700 CATSIB Score (Max score 120 seconds): 120 Lower Extremity Functional Score: 36 Goals Goal 1:: I HEP Goal Time Frame: 6-8 Weeks Goal 2:: Increase balance (FGA score was 22 at eval) Goal Time Frame: 6-8 Weeks Goal 3:: Be able to walk with larger steps and decrease stepping out with gait Goal Time Frame: 6-8 Weeks Goal 4:: Be able to complete X 20 opp arm and leg in standing and reverse opp arm and leg in standing Goal Time Frame: 6-8 Weeks Rehabilitation Potential Rehabilitation Potential: Good Anticipated Interventions Patient/Client Instruction: Educate patient on: Condition and Plan of Care For the Purpose of:: To decrease pain, To increase ROM, To improve nutrient delivery to tissue, To improve muscle performance and motor function, To improve ability to perform ADL's, To increase tolerance to activity/condition/position, To improve performance and independence with ADL's, To decrease level of sup ervision to perform tasks, To improve ability of physical actions for home/community/work/leisure, To improve gait and locomotor functions, To improve health of tissue, To decrease soft tissue restriction, To increase flexibility/ROM, To improve endurance, To improve balance and To improve safety with gait Therapeutic Exercise to Include: Strength training, Endurance training, Balance training, Body mechanics, Postural training, Flexibilty training, Gait and locomotor training, Neuromotor development, Active ROM and Scapular Strength/Stabilization For the Purpose of:: To decrease pain, To increase ROM, To improve nutrient delivery to tissue, To improve muscle performance and motor function, To improve ability to perform ADL's, To increase tolerance to activity/condition/position, To improve performance and independence with ADL's, To decrease level of supervision to perform tasks, To improve ability of physical actions for home/community/work/leisure, To improve gait and locomotor functions, To improve health of tissue, To decrease soft tissue restriction, To increase flexibility/ROM, To improve endurance, To improve balance and To improve safety with gait Functional Training to Include: Gait training For the Purpose of:: To improve gait and locomotor functions and To improve safety with gait Text: Thank you for the opportunity to evaluate your patient. For Medicare and Medicare HMO plans, please review the plan of care and approve it. It will need to be FAXED BACK to us at [phone] for Medicare purposes. For Medicare only, by signing this I certify the plan of care. Please let me know if there are questions or concerns regarding this plan of care. Physician Signature: Date:
--- NOTE | 2025-01-06 15:06 | HP.PTDCSUM ---
Discharge Summary D/C summary: It has been my pleasure to treat FRANCISCO OCNNOR referred by KMI Mendenhall, with the diagnosis of PD (balance/Falls) for a total of 10 visit(s). Discharge Date: 01/06/25 Please see the following information for a summary of their discharge status. Subjective Subjective: He is going on 7 classes a week. He feels that answering % better is harder to say because PD is variable. He feels that he has learned some tips. 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 He was on the grass and it was pretty flat. Pain L foot: Pain Intensity (Out of 10): 1 back pain: Pain Intensity (Out of 10): 2 Overall Improvement % Improvement: 15 Objective Objective/Function: FGA: 25 Standing opp arm and leg X 20 on each side Step: up the steps he does not like to put his whole foot on the stop and he and his are aware. Goals Goal 1:: I HEP Goal Progress: Goal Met Goal 2:: Increase balance (FGA score was 22 at eval) Goal 3:: Be able to walk with larger steps and decrease stepping out with gait Goal Progress: Goal Met Goal 4:: Be able to complete X 20 opp arm and leg in standing and reverse opp arm and leg in standing Goal Progress: Goal Met Plan Plan: 2X/ week for 4 weeks for Postural and trunk stretching (LTR, Wall stretch, trunk rotation to touch the wall), gait training, BW walking, changing direction, dual tasking (such as opp arm and leg and counting BW by 2's etc), stepping over objects with HEP D/C Information Discharge Comments: DC PT to exercises everyday d/c sentence: If there are questions or concerns regarding this patient's physical therapy, please feel free to call me at [phone]. Thank you for the referral of this patient. Sincerely, Mojgan Gonzalez, MPT Balance/Gait/Functional tests Balance/Special Test Scores Functional Gait Assessment Score: 25 % Disability: 16.6700 CATSIB Score (Max score 120 seconds): 120 Lower Extremity Functional Score: 44 Improvement % Improvement: 15
== END 2025-01-06 19:00 | disposition home or self-care (01) ==
LOC: PT 14:30
PROVIDERS: PCP Family Medicine; Referring Provider Physician Assistant; Visit Provider Physician Assistant
DX: G20.A2 Parkinson's disease without dyskinesia, with fluctuations (principal)
CPT/HCPCS: 97110; 97161; 97530

== ENCOUNTER 2025-02-05 09:31 | Outpatient (CLI) | payer MEDICARE, OTHER, SELFPAY ==
[2019-03-11 14:03] VITALS: BMI 24.3
[2025-02-05 09:47] VITALS: BP 114/62; PULSE 86; RESP 16; TEMP 36.6; O2SAT 98; BMI 24.1
[2025-02-05] MEDS: Immune Globulin 20 gm 20 GM/200 ML VIAL IV (09:53)
== END 2025-02-05 23:59 | disposition home or self-care (01) ==
LOC: MEDOUTP 09:31
PROVIDERS: PCP Family Medicine; Referring Provider Family Medicine; Visit Provider Family Medicine
DX: Z02.9 Encounter for administrative examinations, unspecified (principal); D83.9 Common variable immunodeficiency, unspecified
CPT/HCPCS: 96365; 96366; A4216; J1568

== ENCOUNTER 2025-03-05 11:06 | Outpatient (CLI) | payer MEDICARE, OTHER, SELFPAY ==
[2019-03-11 14:03] VITALS: BMI 24.3
[2025-03-05 11:26] VITALS: BP 118/62; PULSE 97; RESP 16; TEMP 35.7; O2SAT 97; BMI 22.7
[2025-03-05] MEDS: Immune Globulin 20 gm 20 GM/200 ML VIAL IV (11:28)
[2025-03-05] MEDS: 0.9% NaCl Peripheral Flush Adult IV (11:28)
== END 2025-03-05 23:59 | disposition home or self-care (01) ==
LOC: MEDOUTP 11:06
PROVIDERS: PCP Family Medicine; Referring Provider Family Medicine; Visit Provider Family Medicine
DX: Z02.9 Encounter for administrative examinations, unspecified (principal); D83.9 Common variable immunodeficiency, unspecified
CPT/HCPCS: 96365; 96366; A4216; J1568

== ENCOUNTER 2025-03-15 21:16 | Emergency (ER) | payer MEDICARE, OTHER, SELFPAY ==
[2019-03-11 14:03] VITALS: BMI 24.3
[2025-03-15 21:18] VITALS: BP 145/76; PULSE 92; RESP 20; TEMP 36.4; O2SAT 100; BMI 22.7
--- NOTE | 2025-03-15 22:23 | CT_ITS ---
PROCEDURE: ABDOMEN/PELVIS W IV CONT ONLY 03/15/2025 REASON FOR EXAM: ABDOMINAL PAIN TECHNIQUE: ABDOMEN/PELVIS W IV CONT ONLY Coronal and Sagittal reconstruction series were provided. One or more dose reduction techniques were used (e.g., Automated exposure control, adjustment of the mA and/or kV according to patient size, use of iterative reconstruction technique. RADIATION DOSE SUMMARY: CTDlvol: 10.0 mGy DLP: 411 mGycm COMPARISON: None FINDINGS: Lung bases: Aortic valvular and coronary artery calcifications. Liver: Unremarkable Gallbladder: No radiodense stones. Spleen: Mildly enlarged measuring 14.4 cm in AP dimension. Pancreas: Normal size without evidence of mass surrounding inflammation or ductal dilation. Adrenals: Unremarkable Kidneys: No radiodense stones or hydronephrosis Bladder: Unremarkable Reproductive Organs: Prostatomegaly with coarse calcifications. Bowel: There is dilation of the sigmoid colon which measures up to 5.8 cm in diameter, and demonstrates whirlpool appearance in the central abdomen (coronal image 46). There is decompression of the distal sigmoid colon. There is a large amount of fecal material proximal to this, to include in the distal small bowel. There are fluid contents and wall thickening involving the far distal sigmoid colon and rectum. No definite hypoenhancement of the bowel wall. Appendix: Not definitely identified. Lymph nodes: No significant lymphadenopathy. Vasculature: Mild diffuse atherosclerotic calcifications are noted. Peritoneum / Retroperitoneum: Trace free fluid in the paracolic gutters. Bones: Vertebroplasty changes and compression deformity at L1. Sclerotic endplate changes at L5-S1. Degenerative changes of the spine. Soft tissues: Trace fluid in the right inguinal canal. CT/Abdomen/Pelvis W IV Cont ONLY IMPRESSION: 1. Findings worrisome for sigmoid volvulus. Recommend Surgical and/or GI cons ultation. 2. Circumferential wall thickening involving the far distal sigmoid colon and rectum. Consider colonoscopy to exclude underlying mass if not recently performed. 3. Mild splenomegaly. Garrett Alert: Sigmoid volvulus The critical information above was relayed directly by me by telephone to Brijesh Weeks on 03/15/2025 at 11:58 pm with readback verification. Reading Location: [id number]
--- NOTE | 2025-03-15 22:25 | EX.ED.DYSGE1 ---
HPI History of Present Illness Chief Complaint: Constipation Narrative Narrative: Chief complaint and HPI: Abdominal pain. 74-year-old male with past medical history of Parkinson's disease, CAD, HLD, memory issues presents for evaluation of abdominal pain. Patient is a very poor historian and therefore history mostly taken by . states that the patient has suffered from constipation for several years. He states his last bowel movement was this morning and hard. States he took some MiraLAX. Endorses episodic abdominal cramping. states prior to arrival he was moaning on the bed which is why she brought him to the emergency department. Abdominal pain is currently minimal. No history of abdominal surgeries. States he has been eating and drinking well. Denies any fever, chills, chest pain, shortness of breath, diarrhea, dysuria. Review of systems: See HPI Medications: As listed on the chart Allergies: As listed on the chart PFSH: Per chart Vital signs: As listed on the chart. Reviewed. Physical exam: Gen: A&O x3, NAD Head: Normocephalic, atraumatic Eyes: No sclera icterus, conjunctiva clear ENT: Moist mucous membranes Neck: Trachea midline, No JVD CV: RRR, no murmurs, no peripheral edema Resp: Lungs CTA BL, no w/r/c GI: Abd soft, mildly distended, non-tender, no r/r/g : No CVA tenderness Musc: Full ROM, no deformity Skin: Warm, dry Neuro: Alert, oriented, grossly intact, sensation intact Psych: Cooperative, appropriate mood and affect [facility] Medical History Tortuous colon Wears glasses Arthritis High cholesterol Easy bruising Back pain Non-smoker History of pain when walking History of echocardiogram History of stress test Cardiology follow-up encounter Parkinson disease Atherosclerosis of coronary artery of [place] heart without angina pectoris Hyperlipidemia Common variable immunodeficiency Benign prostate hyperplasia Basal cell carcinoma of left ear Home Medications ?Medication ?Instructions ?Recorded ?Last Taken ?Type multivitamin with folic acid 400 1 tab PO DAILY 06/10/13 08/22/24 History mcg tablet folic acid 400 mcg tablet 1 tab PO DAILY 12/24/13 08/19/24 History immune glob,gamma(IgG) 10 20 g .Route .[id number] 03/04/19 08/08/24 History kplo-www-fsmn-IgA 0 to 50 mcg/mL IV solution nitroglycerin 0.4 mg sublingual 0.4 mg sublingual Q5-15M PRN chest 04/03/19 Unknown Rx tablet pain #25 tabs ibuprofen 600 mg tablet 600 mg PO Q6H PRN pain #20 tabs 12/30/20 08/22/24 Rx aspirin 81 mg tablet,delayed 81 mg PO DAILY 01/05/21 08/19/24 History release (Adult Low Dose Aspirin) memantine 5 mg tablet 10 mg PO BID 02/01/23 08/22/24 History rosuvastatin 40 mg tablet 40 mg PO QHS 10/10/23 08/22/24 History bupropion HCl 100 mg tablet,12 hr 100 mg PO QAM 11/28/24 Unknown History sustained-release carbidopa 25 mg-levodopa 100 mg 1 tab PO .qid 11/28/24 Unknown History tablet escitalopram oxalate 5 mg tablet 10 mg PO DAILY 11/28/24 Unknown History (Lexapro) Allergy/AdvReac Type Severity Reaction Status Date / Time No Known Allergies Allergy Verified 03/15/25 21:20 Family History Mother Heart disease valve replacement Father Parkinson disease Surgical History History of cardiac catheterization Hx of colonoscopy Hx of transurethral resection of prostate History of coronary artery stent placement (03/21/19) History of herniorrhaphy History of bilateral cataract extraction Social History Smoking Status: Never smoker alcohol intake: current alcohol intake frequency: holidays/special occasions only substance use type: does not use caffeine: No EXAM Physical Exam Const Vital Signs: 03/15/25 21:18 03/15/25 23:16 03/16/25 01:21 Temperature 97.6 F L Temperature Source Oral Pulse Rate 92 81 95 Respiratory Rate 20 H 16 17 Blood Pressure 145/76 H 136/77 H 128/75 H Blood Pressure Mean 99 96 92 Pulse Ox 100 99 97 Oxygen Delivery Method Room Air Room Air 03/16/25 03:30 03/16/25 04:39 Temperature 98.3 F Temperature Source Pulse Rate 88 88 Respiratory Rate 18 18 Blood Pressure 116/75 116/75 Blood Pressure Mean 88 88 Pulse Ox 97 97 Oxygen Delivery Method Room Air MDM MDM MDM Narrative Medical decision making narrative: 74-year-old male with past medical history of Parkinson's disease, CAD, HLD, memory issues presents for evaluation of abdominal pain. Patient is a very poor historian and therefore history mostly taken by . states that the patient has suffered from constipation for several years. He states his last bowel movement was this morning and hard. States he took some MiraLAX. Patient was endorsing abdominal pain which is why presents. Abdominal pain is currently minimal. Differential diagnosis includes but is not limited to constipation, obstruction, diverticulitis, pancreatitis, UTI, urolithiasis. NS bolus ordered. Patient's pain is currently minimal, no pain medicine needed at this time. Abdominal pain workup ordered including CT abdomen and pelvis. CBC without leukocytosis or anemia. Patient has baseline thrombocytopenia. CMP relatively unremarkable. Lipase unremarkable. UA negative for UTI. CT abdomen pelvis shows findings worrisome for sigmoid volvulus. Circumferential wall thickening involving the far distal sigmoid colon and rectum. Cannot exclude underlying mass. I do not have GI on consult this evening therefore general surgery, Dr. Oseguera was consulted and patient was discussed. On chart review, he had performed a colonoscopy in August where the colon was poor. Torturous colon. He states that he recommends transfer to a facility with GI available for decompression to avoid surgery. Patient and family were updated of all the results and confirmed understanding. Patient offered pain medicine but declined. States his pain is minimal. Maintenance fluids started. [facility] I spoke to GI physician who recommend I speak to the general surgery team. In the meantime we did consult [facility], they have no beds available. I did speak to the colorectal surgeon Dr. Childers. He recommended the patient be an ED to ED transfer. I spoke with the ED physician. Patient will be transferred by local transport. Impression: 1. Sigmoid volvulus Lab Data Labs: Laboratory Results - last 24 hr 03/15/25 03/16/25 03/16/25 21:58 00:35 01:20 WBC 5.9 RBC 4.74 Hgb 14.6 Hct 42.3 MCV 89.2 MCH 30.8 MCHC 34.5 RDW Std Deviation 41.8 RDW Coeff of Lou 12.8 Plt Count 148 L MPV 11.1 Immature Gran % (Auto) 0.500 Neut % (Auto) 80.3 H Lymph % (Auto) 11.6 L [place] % (Auto) 7.4 Eos % (Auto) 0.0 Baso % (Auto) 0.2 Absolute Neuts (auto) 4.8 Absolute Lymphs (auto) 0.69 L Nucleated RBC % 0 Sodium 139 Potassium 3.7 Chloride 101 Carbon Dioxide 24.2 Anion Gap 14 BUN 22 H Creatinine 0.93 Estim Creat Clear Calc 66.84 Est GFR (MDRD) Non-Af 88 BUN/Creatinine Ratio 23.2 H Glucose 170 H Lactic Acid < 1.0 Calcium 9.8 Total Bilirubin 0.51 AST 26 ALT 17 Alkaline Phosphatase 84 Total Protein 7.2 Albumin 4.4 Globulin 2.8 Albumin/Globulin Ratio 1.6 Lipase 20 Urine Color Yellow Urine Clarity Clear Urine pH 7.0 Ur Specific [place] 1.010 Urine Protein 30 H Urine Glucose (UA) Normal Urine Ketones 5 H Urine Occult Blood Negative Urine Nitrite Negative Urine Bilirubin Negative Urine Urobilinogen Normal Ur Leukocyte Esterase Negative Urine RBC 0 SEEN Urine WBC 0-5 SEEN Ur Squamous Epith Cells 0 SEEN Urine Bacteria 0 SEEN Urine Mucus 0 SEEN Radiography Diagnostic Testing: Clinical Impression(s) from Imaging Studies Abdomen/Pelvis CT 03/15/25 22:23 IMPRESSION: 1. Findings worrisome for sigmoid volvulus. Recommend Surgical and/or GI consultation. 2. Circumferential wall thickening involving the far distal sigmoid colon and rectum. Consider colonoscopy to exclude underlying mass if not recently performed. 3. Mild splenomegaly. Levy Alert: Sigmoid volvulus The critical information above was relayed directly by me by telephone to Brijesh Frederick on 03/15/2025 at 11:58 pm with readback verification. Reading Location: [id number] Discharge Plan Triage Chief Complaint: Constipation ED Provider: Brijesh Frederick Dx/Rx/DC Orders Prescriptions: No Action immun glob L-cyu-xfnl-IgA 0-50 10 gram recon soln 20 g .Route .[id number] Patient Comments: Every 4 weeks Rx Instructions: IV every 4 weeks nitroglycerin 0.4 mg tablet, sublingual 0.4 mg sublingual Q5-15M PRN (Reason: chest pain) Qty: 25 3RF Rx Instructions: until response; do not exceed 3 doses per episode aspirin [Adult Low Dose Aspirin] 81 mg tablet,delayed release (DR/EC) 81 mg PO DAILY carbidopa-levodopa 25-100 mg tablet 1 tab PO .qid Rx Instructions: 5 tabs daily escitalopram oxalate [Lexapro] 5 mg tablet 10 mg PO DAILY rosuvastatin 40 mg tablet 40 mg PO QHS Patient Comments: Take 1 (one) Tablet with supper bupropion HCl 100 mg tablet sustained-release 12 hr 100 mg PO QAM multivitamin with folic acid 1 TABLET tablet 1 tab PO DAILY folic acid 0.4 MG tablet 1 tab PO DAILY ibuprofen 600 mg tablet 600 mg PO Q6H PRN (Reason: pain) Qty: 20 0RF memantine 5 mg tablet 10 mg PO BID Primary Care Provider: Mahesh Avendano Referrals: Mahesh Avendano MD [Primary Care Provider] - Print Language: Palauan Disposition Disposition: Acute Care Hospital Discharge Location: [facility] Discharge Date/Time: 03/16/25 05:15
--- OUTSIDE RECORDS SUMMARY | 2025-03-15 22:32 | XMS RPT_ITS | CCD ---
Author Organization [facility] Care Team Providers Care Other Sports Official Name Role Phone Isaac Prater Unavailable Unavailable *SELF, REFERRED Unavailable Unavailable Lacy Goldberg Unavailable Unavailable Dr. Ethan Avendano Primary Care Provider Dr. Ethan Avendano Referring Provider [phone] Dr. Demian Ramsay Attending Provider [phone] Ethan Avendano Primary Care Provider [phone] Ethan Avendano Referring Provider [phone] KIM Flores Attending Provider Dr. Demian Ramsay Attending Provider [phone] Ethan Barahona Attending Provider [phone] KIM Flores Referring Provider Dr. Ethan Avendano Primary Care Provider [phone] Ethan Avendano Referring Provider KIM Flores Attending Provider Dr. Demian Ramsay Attending Provider [phone] Ethan Barahona Attending Provider [phone] KIM Flores Referring Provider Dr. Ethan Avendano Primary Care Provider [phone] Lacy Goldberg Primary Care Provider Unavaila ble LACY GOLDBERG Primary Care Unavailable LATISHA ESTRADA Attending Unavailable Dr. Ethan Avendano Primary Care Provider [phone] Ethan Avendano Referring Provider [phone] KMI Flores Attending Provider Dr. Ethan Barahona Attending Provider Dr. Ethan Avendano Primary Care Provider Neri ALVAREZ PA Lory Taveras Referring Provider Dr. Ethan Aevndano Primary Care Provider Dr. Ethan Avendano Referring Provider KIM Flores Attending Provider Dr. Ethan Avendano Primary Care Provider Dr. Ethan Avendano Referring Provider Neri ALVAREZ, PA Lory Taveras Attending Provider FLORENCE EUGENE Attending Unavailable ETHAN AVENDANO Referring Unavailable LACY GOLDBERG Primary Care Unavailable Juan Alberto MACDONALD, Dr. Aragon Primary Care Provider Dr. Ethan Avendano MD Attending Provider Dr. Ethan Avendano MD Referring Provider Dr. Jameel Oseguera MD Attending Provider Ana Rosa MACDONALD, Dr. Jorgensen Other Provider Ana Rosa MACDONALD, Dr. Jorgensen Referring Provider Dr. Ethan Avendano MD Primary Care Provider Dr. Ethan Avendano MD Attending Provider Dr. Ethan Avendano MD Referring Provider Ana Rosa MACDONALD, Dr. Jorgensen Attending Provider Ana Rosa MACDONALD, Dr. Jorgensen Other Provider Ana Rosa MACDONALD, Dr. Jorgensen Referring Provider Dr. Demian Ramsay MD Attending Provider Sandra Reis Attending Provider Sandra Reis Referring Provider Dr. Ethan Avendano MD Primary Care Provider Dr. Ethan Avendano MD Referring Provider Dr. Ethan Avendano MD Attending Provider Devendra MACDONALD, Dr. Arciniega Referring Provider [phone] [facility] [place], Sandra Attending Provider [facility] PA, Sandra Referring Provider Juan Alberto MACDONALD, Dr. Aragon Primary Care Provider Ana Rosa MACDNOALD, Dr. Jorgensen Attending Provider Juan Alberto MACDONALD, Dr. Aragon Attending Provider [phone] Juan Alberto MACDONALD, Dr. Aragon Referring Provider [facility] PA, Sandra Attending Provider [facility] PA, Sandra Referring Provider Juan Alberto MACDONALD, Dr. Aragon Primary Care Provider Osiris MACDONALD, Dr. Marcio Zhu Attending Provider Juan Alberto MACDONALD, Dr. Aragon Primary Care Provider Juan Alberto MACDONALD, Dr. Aragon Attending Provider Juan Alberto MACDONALD, Dr. Aragon Referring Provider Avendano, Ethan Primary Care Unavailable Devendra, Demian Referring Unavailable Devendra, Fredonia Attending Unavailable Avendano, Ethan Primary Care Unavailable Avendano, Ethan Referring Unavailable Avendano, Ethan Attending Unavailable Avendano, Ethan Primary Care Unavailable Avendano, Ethan Referring Unavailable Avendano, Ethan Attending Unavailable Avendano, Ethan Referring Unavailable Avendano, Ethan Primary Care Unavailable Avendano, Ethan Attending Unavailable Blaine Lee Referring Unavailable Blaine Lee Attending Unavailable Avendano, Ethan Primary Care Unavailable Avendano, Ethan Attending Unavailable Avendano, Ethan Referring Unavailable Avendano, Ethan Primary Care Unavailable Avendano, Ethan Attending Unavailable Avendano, Ethan Referring Unavailable Avendano, Ethan Primary Care Unavailable Avendano, Ethan Primary Care Unavailable Avendano, Ethan Referring Unavailable Jameel Oseguera Attending Unavailable Avendano, Ethan Primary Care Unavailable Avendano, Ethan Referring Unavailable Avendano, Ethan Attending Unavailable Avendano, Ethan Primary Care Unavailable Avendano, Ethan Referring Unavailable Avendano, Ethna Attending Unavailable Avendano, Ethan Primary Care Unavailable Avendano, Ethan Referring Unavailable Jameel Oseguera Attending Unavailable Avendano, Ethan Primary Care Unavailable Avendano, Ethan Referring Unavailable Avendano, Ethan Attending Unavailable Avendano, Ethan Primary Care Unavailable Avendano, Ethan Referring Unavailable Calabretta, Jameel Attending Unavailable Jameel Oseguera Consulting Unavailable Avendano, Ethan Primary Care Unavailable Avendano, Ethan Referring Unavailable Demian Ramsay Attending Unavailable Avendano, Ethan Referring Unavailable Avendano, Ethan Attending Unavailable Avendano, Ethan Primary Care Unavailable Avendano, Ethan Primary Care Unavailable Avendano, Ethan Referring Unavailable Avendano, Ethan Attending Unavailable Avendano, Ethan Primary Care Unavailable Ana Rosa, Jameel Attending Unavailable LaneabrJameel aguilera Referring Unavailable Avendano, Ethan Primary Care Unavailable Avendano, Ethan Referring Unavailable Avendano, Ethan Attending Unavailable Avendano, Ethan Primary Care Unavailable Avendano, Ethan Referring Unavailable Avendano, Ethan Attending Unavailable Waight, Sandra Referring Unavailable Waight, Sandra Attending Unavailable Avendano, Ethan Primary Care Unavailable Avendano, Ethan Referring Unavailable Avendano, Ethan Primary Care Unavailable Avendano, Ethan Attending Unavailable Avendano, Ethan Referring Unavailable Avendano, Ethan Primary Care Unavailable Avendano, Ethan Attending Unavailable Avendano, Ethan Referring Unavailable Avendano, Ethan Primary Care Unavailable Avendano, Ethan Attending Unavailable Allergies Allergy Classification Reported Allergen(s) Allergy Type Date of Onset Reaction(s) Facility (3 sources) dust,mold grass [Other] Propensity to adverse reactions 6 [facility] (2 sources) OTHER; Translations: [OTHER] Propensity to adverse reactions (disorder) 6 [facility] Medications Current Medications Medication Drug Class(es) Dates Sig (Normalized) Sig (Original) aspirin 81 mg delayed release oral tablet (20 sources) Platelet Aggregation Inhibitor, Nonsteroidal Anti-inflammatory Drug Start: 01-05-2021 Aspirin (Adult Low Dose Aspirin) 81 mg tablet,delayed release (DR/EC) Active 81 mg PO DAILY January 05, 2021 12:00am Start: 03-04-2019 End: 12-30-2020 take 1 tablet by mouth once daily Aspirin (Adult Aspirin Regimen) 81 mg tablet,delayed release (DR/EC) Discontinued 81 mg PO DAILY March 04, 2019 12:00am December 30, 2020 3:38pm Start: 07-11-2013 take 1 tablet by anthony th once daily Aspirin 81 mg tab Take 1 tablet by mouth once daily. 1 tablet 0 07/11/2013 Active Start: 06-10-2013 End: 03-04-2019 Aspirin 325 MG tablet Discon tinued 162 mg PO DAILY@0800 June 10, 2013 12:00am March 04, 2019 7:15pm Start: 06-10-2013 End: 03-04-2019 take 162 mg by mouth once daily Aspirin Discontinued 162 MG PO DAILY@00 June 10, 2013 12:00am March 04, 2019 7:15pm Comment on above: Take 1 tablet by anthony th once daily. Bupropion Hcl 100 mg tablet sustained-release 12 hr (5 sources) Start: take 1 tablet by mouth once daily in the morning Bupropion Hcl 100 mg tablet sustained-release 12 hr Active 100 mg PO EVERY MORNING November 28, 2024 12:00am carbidopa 25 mg / levodopa 100 mg oral tablet (20 sources) Aromatic Amino Acid Decarboxylation Inhibitor, Aromatic Amino Acid Start: 5 take 5 tablets by mouth once daily Carbidopa-Levodopa 25-100 mg tablet Active 1 {tbl} PO .qid November 28, 2024 10:54am 5 tabs daily Start: 02-01-2023 End: 11-28-2024 Carbidopa-Levodopa 25-100 mg tablet Discontinued 1 {tbl} PO .qid February 01, 2023 12:00am November 28, 2024 10:56am Start: 02-01-2023 take 1 tablet by anthony th four times daily Carbidopa-Levodopa Active 1 TABLET PO .qid February 01, 2023 12:00am Start: 05-07-2021 End: 02-01-2023 Carbidopa-Levodopa 50-200 mg Tablet Extended Release Discontinued 1 {tbl} PO AT BEDTIME May 07, 2021 12:00am February 01, 2023 10:57am Start: 05-07-2021 End: 02-01-2023 take 1 tablet by mouth at bedtime Carbidopa-Levodopa Discontinued 1 TABLET PO AT BEDTIME May 07, 2021 12:00am February 01, 2023 10:57am Start: 08-22-2019 End: 10-10-2023 Carbidopa-Levodopa 25-100 mg tablet extended release Discontinued 1 {tbl} PO TWICE A DAY August 22, 2019 1:00am October 10, 2023 11:27am Start: 08-22-2019 End: 10-10-2023 take 1 tablet by mouth twice daily Carbidopa-Levodopa Discontinued 1 TABLET PO TWICE A DAY August 22, 2019 1:00am October 10, 2023 11:27am take 1 tablet by anthony th four times daily carbidopa-levodopa CR (SINEMET CR) 50-200 mg per tablet Take 1 tablet by mouth four times daily. 0 Active Comment on above: Take 1 tablet by anthony th four times daily. escitalopram 5 mg oral tablet (20 sources) Serotonin Reuptake Inhibitor Start: take 2 tablets by mouth once daily Escitalopram Oxalate (Lexapro) 5 mg tablet Active 10 mg PO DAILY November 28, 2024 10:55am Start: 02-01-2023 End: 11-28-2024 take 1 tablet by mouth once daily Escitalopram Oxalate (Lexapro) 5 mg tablet Discontinued 5 mg PO DAILY February 01, 2023 12:00am November 28, 2024 10:56am folic acid 0.4 mg oral table t (20 sources) Start: 12-24-2013 Folic Acid 0.4 MG tablet Active 1 {tbl} PO DAILY December 24, 2013 12:00am take 1 tablet by mouth three sunny es daily folic acid 400 mcg tablet Take 400 mcg by mouth three times daily. 0 Active Comment on above: Take 400 mcg by mout h three times daily. ibuprofen 600 mg oral tablet (20 sources) Nonsteroidal Anti-inflammatory Drug Start: 12-31-19 21 take 1 tablet by mouth every six hours as needed for pain Ibuprofen 600 mg tablet Active 600 mg PO EVERY 6 HOURS as needed for pain 20 0 December 30, 2020 12:00am immunoglobulin g, human 96189 mg injection (20 sources) Human Immunoglobulin G Start: 03-04-20 19 Immun Glob D-Ujn-Ozwu-Iga 0-50 10 gram recon soln Active 20 g .Route .[id number] 0 March 04, 2019 12:00am Common variable immunodeficiency, unspecified IV every 4 weeks Start: 03-17-2017 take 3.5 mL by mouth every hour immune globulin, human,, IgG, (GAMMAGARD LIQUID) 10 % soln Indications: Common variable immunodeficiency (HCC) Gammagard liquid 10% 20 grams IV every 4 weeks. Patient should take acetaminophen 650 mg by mouth 30 minutes prior to infusions. Start infusion at 1 ml/kg/hr then, at 30 minute intervals, increase to 2 ml/kg/hr, 3 ml/kg/hr and 3.5 ml/kg/hr. Continue at 3.5 ml/kg/hr until infusion completed. 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 Patient should take acetaminophen 650 mg by mouth 30 minutes prior to infusions. Start infusion at 1 ml/kg/hr then, at 30 minute intervals, increase to 2 ml/kg/hr, 3 ml/kg/hr and 3.5 ml/kg/hr. Continue at 3.5 ml/kg/hr until infusion completed. 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 0 08/18/2021 Active Start: 05-07-2021 End: 02-01-2023 take 1 tablet by mouth twice daily Memantine 5 mg Tablet Discontinued 5 mg PO TWICE A DAY May 07, 2021 12:00am February 01, 2023 10:58am Comment on above: Take 10 mg by mouth twice daily. Multivitamin With Folic Acid (20 sources) Start: 06-10-2013 take 1 tablet by mouth once daily Multivitamin With Folic Acid Active 1 TABLET PO DAILY June 10, 2013 1:19pm Start: 06-10-2013 take 1 tablet by anthony th once daily Multivitamin With Folic Acid Active 1 TABLET PO DAILY June 09, 2013 11:00pm Start: 06-10-2013 take 1 tablet by anthony th once daily Multivitamin With Folic Acid Active 1 TABLET PO DAILY June 10, 2013 12:00am Multivitamin With Folic Acid 1 TABLET tablet (7 sources) Start: 06-10-2013 take 1 tablet by mouth once daily Multivitamin With Folic Acid 1 TABLET tablet Active 1 {tbl} PO DAILY June 10, 2013 12:00am Start: 06-10-2013 take 1 tablet by anthony th once daily Multivitamin With Folic Acid 1 TABLET tablet Active 1 {tbl} PO DAILY June 09, 2013 11:00pm nitroglycerin 0.4 mg sublingual tablet (20 sources) Nitrate Vasodilator Start: 04-03-2019 Nitroglyce rin 0.4 mg tablet, sublingual Active 0.4 mg SL every 5 to 15 minutes as needed for chest pain 26 11April 03, 2019 12:00am until response; do not exceed 3 doses per episode Start: 04-03-2019 Nitroglycerin Active 0.4 MG SL every 5 to 15 minutes April 03, 2019 12:00am until response; do not exceed 3 doses per episode rosuvastatin calcium 40 mg oral tablet (20 sources) HMG-CoA Reductase Inhibitor Start: 10-10-2023 take 1 tablet by mouth at bedtime Rosuvastatin 40 mg tablet Active 40 mg PO AT BEDTIME October 10, 2023 1:00am Start: 10-10-2023 Rosuvastatin A ctive MG PO October 10, 2023 1:00am Start: 03-15-2019 End: 09-07-2023 take 1 tablet by mouth once daily Rosuvastatin (Crestor) 40 mg tablet Discontinued 40 mg PO DAILY March 15, 2019 12:00am September 07, 2023 11:17am Comment on above: TAKE 1 TABLET BY ANTHONY EVERY DAY with supper. Completed/Discontinued Medications Medication Drug Class(es) Dates Sig (Normalized) Sig (Original) acetaminophen 325 mg oral tablet (3 sources) Start: 03-10-2016 acetaminophen (TYLENOL) 325 mg tablet 2 tablets 30 minutes prior to IVIG infusions and every 4 hours as needed 30 tablet 1 03/10/2016 Active Comment on above: 2 tablets 30 minutes prior to IVIG infusions and every 4 hours as needed [id number] 200 actuat albuterol 0.09 mg/actuat metered dose inhaler (20 sources) beta2-Adrenergic Agonist Start: 01-30-2019 End: 04-29-2019 Albuterol Sulfate 90 mcg/actuation HFA aerosol inhaler Discontinued 2 NMA INHALATION Q4H as needed for shortness of breath or wheezing 1 January 30, 2019 12:00am April 29, 2019 3:24pm administer with spacer Start: 01-30-2019 End: 04-29-2019 take 1 puff(s) by inhalation every four hours Albuterol Sulfate Discontinued 2 PUFF INHALATION Q4H January 30, 2019 12:00am April 29, 2019 3:24pm administer with spacer calcium carbonate 600 mg / cholecalciferol 0.01 mg oral tablet (20 sources) Vitamin D Start: 06-10-2013 End: 06-11-2013 take 1 tablet by mouth once daily Calcium Carbonate-Vitamin D3 (Caltrate-600 With Vit D Tab) 1 TAB tablet Discontinued 1 {tbl} PO DAILY June 10, 2013 12:00am June 11, 2013 1:15pm celecoxib 200 mg oral capsule (20 sources) Nonsteroidal Anti-inflammatory Drug Start: 06-14-2019 End: 11-28-2024 take 1 capsule by mouth twice daily Celecoxib 200 MG capsule Discontinued 200 mg PO TWICE A DAY June 14, 2019 12:00am November 28, 2024 10:55am Comment on above: Take 200 mg by mouth twice daily. CENTRUM SILVER TAB (3 sources) CENTRUM SILVER T AB Take one(1) tablet daily. 0 Active Comment on above: Take one(1) tablet d aily. cholecalciferol 0.025 mg oral capsule (3 sources) Vitamin D Start: 01-27-2012 End: 12-29-2022 take 1 capsule by mouth once daily Cholecalciferol, Vitamin D3, 1,000 unit Cap Take 1 capsule by mouth once daily. 1 capsule 0 01/27/2012 12/29/2022 Discontinued Comment on above: Take 1 capsule by [facility] once daily. ciprofloxacin 500 mg oral tablet (20 sources) Quinolone Antimicrobial Start: 12-30-2020 End: 02-16-2021 take 1 tablet by mouth twice daily Ciprofloxacin Hcl (Cipro) 500 mg tablet Discontinued 500 mg PO TWICE A DAY 14 December 30, 2020 12:00am February 16, 2021 10:06am clopidogrel 75 mg oral tablet (20 sources) [id number] Platelet Inhibitor Start: 12-31-2020 End: 02-01-2023 take 1 tablet by mouth once daily Clopidogrel 75 mg tablet Discontinued 75 mg PO DAILY 90 3 January 25, 2023 3:51pm February 01, 2023 11:41am Start: 03-06-2019 End: 12-30-2020 take 1 tablet by mouth once daily Clopidogrel 75 mg tablet Discontinued 75 mg PO DAILY 90 3 March 30, 2020 11:24am December 30, 2020 3:38pm Comment on above: Take 75 mg by mouth once daily. 1 ml diphenhydrAMINE hydrochloride 50 mg/ml injection (6 sources) Histamine-1 Receptor Antagonist Start: 2015 End: 2022 take 50 mg intravenously every six hours as needed diphenhydrAMINE (BENADRYL) 50 mg/mL injection Inject 50 mg intravenously every 6 hours as needed (for allergic reaction). 2 mL 1 03/10/2016 12/29/2022 Discontinued Start: 03-10-2016 take 1-2 tablets by mouth every six hours as needed diphenhydrAMINE (BENADRYL ALLERGY) 25 mg tablet One to two tablets by mouth every 6 hours as needed for allergic reaction. 20 tablet 0 03/10/2016 Active Comment on above: One to two tablets b y mouth every 6 hours as needed for allergic reaction. Inject 50 mg intrave nously every 6 hours as needed (for allergic reaction). erythromycin 0.005 mg/mg ophthalmic ointment (3 sources) Macrolide, Macrolide Antimicrobial Start: End: erythromycin (ROMYCIN) 5 mg/gram (0.5 %) ophthalmic ointment Use 1 application in the right eye daily at bedtime. 3.5 g 0 08/27/2021 12/29/2022 Discontinued Comment on above: Use 1 application in the right eye daily at bedtime. fenofibrate 48 mg oral tablet (3 sources) Peroxisome Proliferator Receptor alpha Agonist Start: 016 End: take 1 tablet by mouth once daily fenofibrate nanocrystallized (TRICOR) 48 mg tablet Take 1 tablet by mouth once daily. 90 tablet 3 06/25/2016 12/29/2022 Discontinued Comment on above: Take 1 tablet by anthony once daily. finasteride 5 mg oral tablet (20 sources) 5-alpha Reductase Inhibitor Start: End: take 1 tablet by mouth once daily Finasteride 5 mg tablet Discontinued 5 mg PO DAILY January 05, 2021 12:00am February 16, 2021 10:07am gabapentin 300 mg oral capsule (20 sources) Anti-epileptic Agent Start: 021 End: 025 take 1 capsule by mouth three times daily Gabapentin 300 mg capsule Discontinued 300 mg PO THREE TIMES A DAY September 06, 2021 5:00pm November 28, 2024 10:55am Start: 07-05-2021 End: 12-29-2022 gabapentin (NEURONTIN) 300 m g capsule Take 200 mg by mouth four times daily. 0 07/05/2021 12/29/2022 Discontinued Start: 02-16-2021 End: 09-06-2021 Gabapentin 300 mg capsule Discontinued 200 mg PO THREE TIMES A DAY February 16, 2021 10:05am September 06, 2021 5:01pm Start: 02-16-2021 End: 09-06-2021 take 200 mg by mouth three times daily Gabapentin Discontinued 200 MG PO THREE TIMES A DAY February 16, 2021 10:05am September 06, 2021 5:01pm Start: 03-20-2020 End: 02-16-2021 take 1 capsule by mouth three times daily Gabapentin 300 mg capsule Discontinued 300 mg PO THREE TIMES A DAY January 05, 2021 12:00am February 16, 2021 10:07am take 1 capsule by [facility] three times daily gabapentin (NEURONTIN) 400 mg capsule Take 400 mg by mouth three times daily. 0 Active Comment on above: Take 300 mg by mouth three times daily. Take 400 mg by mouth three times daily. Take 200 mg by mouth four times daily. Guar Gum (20 sources) Start: 06-10-2013 End: 01-05-2021 take 2 g by mouth twice daily Guar Gum Discontinued 2 GM PO TWICE A DAY June 10, 2013 1:19pm January 05, 2021 9:43am Start: 06-10-2013 End: 01-05-2021 take 2 g by mouth twice daily Guar Gum Discontinued 2 GM PO TWICE A DAY June 09, 2013 11:00pm January 05, 2021 8:43am Start: 06-10-2013 End: 01-05-2021 take 2 g by mouth twice daily Guar Gum Discontinued 2 GM PO TWICE A DAY June 10, 2013 12:00am January 05, 2021 9:43am Guar Gum 1 GM tablet,chewable (7 sources) Start: 06-10-2013 End: 05-04-2021 take 1 tablet by mouth twice daily Guar Gum 1 GM tablet,chewable Discontinued 2 g PO TWICE A DAY June 10, 2013 12:00am January 05, 2021 9:43am Start: 06-10-2013 End: 01-05-2021 take 1 tablet by mouth twice daily Guar Gum 1 GM tablet,chewable Discontinued 2 g PO TWICE A DAY June 09, 2013 11:00pm January 05, 2021 8:43am Ivig (20 sources) Start: 06-10-2013 End: 03-04-2019 take 20 g intravenously every month Ivig Discontinued 20 GM IV EVERY MONTH June 10, 2013 1:19pm March 04, 2019 7:19pm Start: 06-10-2013 End: 03-04-2019 take 20 g intravenously every month Ivig Discontinued 20 GM IV EVERY MONTH June 09, 2013 11:00pm March 04, 2019 6:19pm Start: 06-10-2013 End: 03-04-2019 take 20 g intravenously every month Ivig Discontinued 20 GM IV EVERY MONTH June 10, 2013 12:00am March 04, 2019 7:19pm Ivig Iv.Soln (7 sources) Start: 06-10-2013 End: 03-04-2019 take 20 g intravenously every month Ivig Iv.Soln Discontinued 20 g IV EVERY MONTH June 10, 2013 12:00am March 04, 2019 7:19pm Start: 06-10-2013 End: 03-04-2019 take 20 g intravenously every month Ivig Iv.Soln Discontinued 20 g IV EVERY MONTH June 09, 2013 11:00pm March 04, 2019 6:19pm ketorolac tromethamine 10 mg oral tablet (20 sources) Nonsteroidal Anti-inflammatory Drug, Cyclooxygenase Inhibitor Start: 11-04-2022 End: 10-10-2023 take 1 tablet by mouth three times daily as needed for pain Ketorolac (Toradol) 10 mg Tablet Discontinued 10 mg PO THREE TIMES A DAY as needed for Pain November 04, 2022 1:00am October 10, 2023 11:28am lisinopril 2.5 mg oral tablet (20 sources) Angiotensin Converting Enzyme Inhibitor Start: 03-15-2019 End: 01-05-2021 take 1 tablet by mouth once daily Lisinopril 2.5 mg tablet Discontinued 2.5 mg PO DAILY 90 3 December 04, 2020 4:26pm January 05, 2021 10:21am melatonin 10 mg disintegrating oral tablet (1 source) melatonin 10 mg ODT melatonin 10 mg disintegrating tablet TAKE 1 TABLET AT AT BEDTIME 0 Active Comment on above: melatonin 10 mg disi ntegrating tablet TAKE 1 TABLET AT AT BEDTIME 24 hr metoprolol succinate 25 mg extended release oral tablet (20 sources) beta-Adrenergic Leonie Start: 01-05-2021 End: 11-28-2024 take 1 tablet by mouth once daily Metoprolol Succinate 25 mg tablet extended release 24 hr Discontinued 25 mg PO DAILY 90 3 December 20, 2023 4:27pm November 28, 2024 10:56am Start: 03-30-2020 End: 01-05-2021 take 2 tablets by mouth once daily Metoprolol Succinate 25 mg tablet extended release 24 hr Discontinued 12.5 mg PO DAILY March 30, 2020 11:17am January 05, 2021 9:43am pt is to stop once his Rx runs out Start: 03-30-2020 End: 01-05-2021 take 12.5 mg by mouth once daily Metoprolol Succinate Discontinued 12.5 MG PO DAILY March 30, 2020 11:17am January 05, 2021 9:43am pt is to stop once his Rx runs out Start: 04-29-2019 End: 03-30-2020 take 1 tablet by mouth once daily Metoprolol Succinate 25 mg tablet extended release 24 hr Discontinued 25 mg PO DAILY 30 April 29, 2019 3:42pm March 30, 2020 11:16am Start: 03-06-2019 End: 04-29-2019 take 1 tablet by mouth once daily Metoprolol Succinate (Toprol Xl) 50 mg tablet extended release 24 hr Discontinued 50 mg PO DAILY 60 March 06, 2019 12:00am April 29, 2019 3:43pm Comment on above: Take 25 mg by mouth once daily. pravastatin sodium 40 mg oral tablet (20 sources) HMG-CoA Reductase Inhibitor Start: 08-11-20 End: 03-15-20 take 1 tablet by mouth once daily Pravastatin 40 MG tablet Discontinued 40 mg PO DAILY August 11, 2017 1:00am March 15, 2019 11:32am primidone 50 mg oral tablet (20 sources) Anti-epileptic Agent Start: 08-09-20 End: 08-22-20 19 take 1 tablet by mouth twice daily Primidone 50 MG tablet Discontinued 50 mg PO TWICE A DAY August 09, 2019 1:00am August 22, 2019 10:05am 1000 ml sodium chloride 9 mg/ml injection (3 sources) Start: 03-10-20 16 0.9 % SODIUM CHLORIDE (NACL 0.9%) 0.9% solution 500 to 1000 ml IV bolus as needed for hypotension associated with a reaction to IVIG 1000 mL 0 03/10/2016 Active Comment on above: 500 to 1000 ml IV oskar logan as needed for hypotension associated with a reaction to IVIG tamsulosin hydrochloride 0.4 mg oral capsule (20 sources) alpha-Adrenergic Leonie Start: 03-12-20 End: 12-25-19 21 take 1 capsule by mouth once daily Tamsulosin 0.4 MG capsule Discontinued 0.4 mg PO DAILY March 12, 2019 12:00am December 24, 2020 10:44am traMADol hydrochloride 50 mg oral tablet (20 sources) Opioid Agonist Start: 02-02-20 End: 11-29-19 25 take 1 tablet by mouth twice daily as needed for pain Tramadol 50 mg tablet Discontinued 50 mg PO TWICE A DAY as needed for pain February 01, 2023 12:00am November 28, 2024 10:56am Problems Active Problems Problem Classification Problem Date Documented Da te Episodic/Chronic Administrative/social admission (1 source) Encounter for administrative examinations, unspecified; Translations: [Encounter for administrative examinations, unspecified] Onset: 02-11-2025 Episodic Coronary atherosclerosis and other heart disease (20 sources) Disorder of coronary artery; Translations: [Atherosclerotic heart disease of [place] coronary artery with unspecified angina pectoris] Chronic Comment on above: SPO-WPU-Ersseb RCA w / 2.5 x 12 mm Elunir Stent and MILANA-Mid RCA w/ 3.0 x 33 mm Elunir Stent 03/11/19; PCI-MILANA- Mid LAD w/ 3.0 x 16 mm Synergy MR Stent 03/21/2019 Digestive congenital anomalies (8 sources) Tortuous colon; Translations: [Other specified congenital malformations of intestine] Onset: 10-03-2024 08-23-2024 Chronic Disorders of lipid metabolism (20 sources) Hyperlipidemia; Translations: [Hyperlipidemia, unspecified] Onset: 01-20-2006 Chronic Genitourinary symptoms and ill-defined conditions (20 sources) Retention of urine; Translations: [Retention of urine, unspecified] 03-13-2019 Episodic Heart valve disorders (20 sources) Heart murmur; Translations: [Cardiac murmur, unspecified] Episodic Hyperplasia of prostate (3 sources) Benign prostatic hyperplasia; Translations: [Benign prostatic hyperplasia without lower urinary tract symptoms] Onset: 07-11-2013 07-11-2013 Chronic Immunity disorders (20 sources) Common variable agammaglobulinemia; Translations: [Common variable immunodeficiency, unspecified] Onset: 01-20-2006 01-20-2006 Chronic Comment on above: ON GLOBIN GAMMA IV E VERY 4 WEEKS Nonspecific chest pain (20 sources) Chest pain on exertion; Translations: [Chest pain, unspecified] 12-12-2020 Episodic Other circulatory disease (20 sources) Low blood pressure; Translations: [Hypotension, unspecified] 01-05-2021 Episodic Other circulatory disease (20 sources) Carotid bruit; Translations: [Other specified symptoms and signs involving the circulatory and respiratory systems] 03-16-2022 Episodic Other circulatory disease (15 sources) Other specified symptoms and signs involving the circulatory and respiratory systems; Translations: [Other symptoms involving cardiovascular system] Onset: 12-21-2024 Episodic Other eye disorders (2 sources) Irregular eye movements; Translations: [Other irregular eye movements] Chronic Other gastrointestinal disorders (7 sources) Stool DNA-based colorectal cancer screening positive; Translations: [Other fecal abnormalities] 07-10-2024 Episodic Other lower respiratory disease (20 sources) Dyspnea on exertion; Translations: [Dyspnea, unspecified] 12-12-2020 Episodic Other nervous system disorders (2 sources) Abnormal gait; Translations: [Unspecified abnormalities of gait and mobility] Episodic Other nervous system disorders (2 sources) Coordination problem; Translations: [Other lack of coordination] Episodic Other screening for suspected conditions (not mental disorders or infectious disease) (5 sources) Raised prostate specific antigen; Translations: [Elevated prostate specific antigen [PSA]] Onset: 07-21-2014 07-21-2014 Episodic Parkinson`s disease (20 sources) Parkinson's disease; Translations: [Parkinson's disease] Onset: 10-06-2023 Chronic Unclassified (20 sources) BPH loc w urin obs/LUTS 12-30-2020 Past or Other Problems Problem Classification Problem Date Documented Da te Episodic/Chronic Coronary atherosclerosis and other heart disease (10 sources) Presence of coronary angioplasty implant and graft; Translations: [Percutaneous transluminal coronary angioplasty status] Onset: 03-21-2019 02-01-2023 Episodic Malaise and fatigue (1 source) Other fatigue; Translations: [Other fatigue] Onset: 11-12-2024 Episodic Other gastrointestinal disorders (1 source) Other fecal abnormalities; Translations: [Other fecal abnormalities] Onset: 09-23-2024 Episodic Other non-epithelial cancer of skin (9 sources) Malignant neoplasm of skin; Translations: [Other and unspecified malignant neoplasm of skin, site unspecified] Onset: 11-21-2005 11-21-2005 Episodic Other skin disorders (3 sources) Vitiligo; Translations: [Vitiligo] Onset: 07-08-2007 07-08-2007 Episodic Results Test Name Value Interpretation Reference Range Facility PT D/C Summary (1)on 025 PT D/C Summary (1) [facility] [address] [place] [address] [address] [place] [address] / REHABILITATION SERVICES DISCHARGE SUMMARY MR#: [id number] Acct: [id number] Name: FRANCISCO KELLY Rep #: [id number] : 1950 74 From: Mojgan Gonzalez MPT Referring Dr.: KIM Mendenhall Status: REG RCR Insurance: MEDICARE PART A B [facility] Discharge Summary D/C summary: It has been my pleasure to treat FRANCISCO KELLY referred by KIM Mendenhall, with the diagnosis of PD (balance/Falls) for a total of 10 visit(s). Discharge Date: 01/06/25 Please see the following information for a summary of their discharge status. Subjective Subjective: He is going on 7 classes a week. He feels that answering % better is harder to say because PD is variable. He feels that he has learned some tips. He fell 3-4 days ago he was getting the visual c developer ready to mow. He was on the grass and it was pretty flat. Pain L foot: Pain Intensity (Out of 10): 1 back pain: Pain Intensity (Out of 10): 2 Overall Improvement % Improvement: 15 Objective Objective/Function: FGA: 25 Standing opp arm and leg X 20 on each side Step: up the steps he does not like to put his whole foot on the stop and he and his are aware. Goals Goal 1:: I HEP Goal Progress: Goal Met Goal 2:: Increase balance (FGA score was 22 at eval) Goal 3:: Be able to walk with larger steps and decrease stepping out with gait Goal Progress: Goal Met Goal 4:: Be able to complete X 20 opp arm and leg in standing and reverse opp arm and leg in standing Goal Progress: Goal Met Plan Plan: 2X/ week for 4 weeks for Postural and trunk stretching (LTR, Wall stretch, trunk rotation to touch the wall), gait training, BW walking, changing direction, dual tasking (such as opp arm and leg and counting BW by 2's etc), stepping over objects with HEP D/C Information Discharge Comments: DC PT to exercises everyday d/c sentence: If there are questions or concerns regarding this patient's physical therapy, please feel free to call me at [phone]. Thank you for the referral of this patient. Sincerely, Mojgan Gonzalez, MPT Balance/Gait/Functio nal tests Balance/Special Test Scores Functional Gait Assessment Score: 25 % Disability: 16.6700 CATSIB Score (Max score 120 seconds): 120 Lower Extremity Functional Score: 44 Improvement % Improvement: 15 01/06/25 1506 CC: Dr. Ethan Avendano MD; KIM Mendenhall Signed Normal [facility] T4 Free Directon 12-25-2024 T4 FREE DIRECT 0.90 ng/dL Normal 0.76-1.46 [facility] Comment on above: Performed By: #### L 506.0400 #### [facility] Laboratory [address] [facility] [place], [address] T4 freeOrdered By: Ethan cheng on 12-25-2024 Free T4 [Mass/Vol] 0.90 ng/dL 0.76-1.46 [facility] Carotid Duplex Ultrasoundon 12-17-2024 Carotid Duplex Ultrasound [facility] [address] [place] [address] Carotid Duplex Ultrasound 12/17/24 1358 MR#: [id number] Acct: [id number] Name: FRANCISCO KELLY Rep #: [id number] : 1950 74 From: Marcio Newell MD Attending Dr: Dr. Demian Ramsay MD Status: AMADEO MCCAULEY Ordering Dr: Demian Ramsay MD Date: 12/17/24 Location: [facility] Sex: M C Admitted: Reason For Study Reason For Study: BRUIT Rt. Velocities/BP Lt. Velocities/BP Prox CCA 107.2/13.9 cm/sec. Prox CCA 142.3/23.6 cm/sec. Mid CCA 74.4/13.0 cm/sec. Mid CCA 136.8/19.9 cm/sec. Dist CCA 65.8/10.6 cm/sec. Dist CCA 91.1/19.9 cm/sec. Prox ICA 177.7/31.6 cm/sec. Prox ICA 129.5/10.8 cm/sec. Mid ICA 134.4/19.4 cm/sec. Mid ICA 105.8/19.9 cm/sec. Dist ICA 125.3/28.5 cm/sec. Dist ICA 100.3/21.7 cm/sec. Rt. ICA/CCA = 177.7/74.4=2.3. Lt. ICA/CCA = 129.5/136.8=0.9. Prox ECA 150.9/8.4 cm/sec. Prox ECA 146.9/10.8 cm/sec. Rt. Vert. 52.3/13.9 cm/sec. Lt. Vert. 54.7/8.4 cm/sec. Right Extracranial There is homogeneous, smooth atherosclerotic plaque noted in the right common carotid artery. There is heterogeneous, irregular atherosclerotic plaque noted in the right internal carotid artery. There is heterogeneous, irregular atherosclerotic plaque noted in the right external carotid artery. Antegrade flow is noted in the right vertebral artery. Left Extracranial There is heterogeneous, irregular atherosclerotic plaque noted in the left common carotid artery. There is heterogeneous, irregular atherosclerotic plaque noted in the left internal carotid artery. There is heterogeneous, irregular atherosclerotic plaque noted in the left external carotid artery. Antegrade flow is noted in the left vertebral artery. Procedure Carotid Duplex 82227. This is a Carotid Duplex examination using B-mode, color flow and specral Doppler. Exam performed in department. VL/Carotid Duplex Ultrasound Interpretation Summary Moderate (50-69%) stenosis right extracranial internal carotid. Mild (<50%) stenosis left extracranial internal carotid. Flow within the vertebral arteries is antegrade bilaterally. Ordering Physician: Demian Ramsay Referring Physician: Ethan Avendano Performed By: Lisa Kohler, EMANUEL, RVT 12/17/241838 Date Marcio Newell MD CC: Dr. Demian Ramsay MD; Dr. Ethan Avendano MD Date Dictated: 12/17/241357 Date Transcribed: 12/17/241838 Fire Eater: Signed Normal [facility] Duplex ultrasound of carotid artery reportOrdered By: Marcio Newell on 12-17-2024 Study report [facility] [address] [facility] [place] [address] Carotid Duplex Ultrasound 12/17/248 MR#: [id number] Acct: [id number] Name: FRANCISCO KELLY Rep #:[id number] : 1950 74 From: Marcio Newell MD Attending Dr: Dr. Demian Ramsay MD S tatus: REG CLI Ordering Dr: Demian Ramsay MD Date: Location: [facility] Sex: M C Admitted: Reason For Study Reason For Study: [place] Rt. Velocities/BP Lt. Velocities/BP Prox CCA 107.2/13.9 cm/sec. Prox CCA 142.3/23.6 cm/sec. Mid CCA 74.4/13.0 cm/sec. Mid OFW898.8/19.9 cm/sec. Dist CCA 65.8/10.6 cm/sec. Dist CCA 91.1/19.9 cm/sec. Prox ICA 177.7/31.6 cm/sec. Prox ICA 129.5/10.8 cm/sec. Mid ICA 134.4/19.4 cm/sec. Mid QEB685.8/19.9 cm/sec. Dist ICA 125.3/28.5 cm/sec. Dist ICA 100.3/21.7 cm/sec. Rt. ICA/CCA = 177.7/74.4=2.3. Lt. ICA/CCA = 129.5/136.8=0.9. Prox ECA 150.9/8.4 cm/sec. Prox ECA 146.9/10.8 cm/sec. Rt. Vert. 52.3/13.9 cm/sec. Lt. Vert. 54.7/8.4 cm/sec. Right Extracranial There is homogeneous, smooth atherosclerotic plaque noted in the right common carotid artery. There is heterogeneous, irregular atherosclerotic plaque noted in the right internal carotid artery. There is heterogeneous, irregular atherosclerotic plaque noted in the right external carotid artery. Antegrade flow is noted in the right vertebral artery. Left Extracranial There is heterogeneous, irregular atherosclerotic plaque noted in the left common carotid artery. There is heterogeneous, irregular atherosclerotic plaque noted in the left internal carotid artery. There is heterogeneous, irregular atherosclerotic plaque noted in the left external carotid artery. Antegrade flow is noted in the left vertebral artery. Procedure Carotid Duplex 05904. This is a Carotid Duplex examination using B-mode, color flow and specral Doppler. Exam performed in department. VL/Carotid Duplex Ultrasound Interpretation Summary Moderate (50-69%) stenosis right extracranial internal carotid. Mild (<50%) stenosis left extracranial internal carotid. Flow within the vertebral arteries is antegrade bilaterally. Ordering Physician: Demian Ramsay Referring Physician: Ethan Avendano Performed By: Lisa Kohler, RDCS, RVT 12/17/241838 Date _ Marcio Newell MD CC: Dr. Demian Ramsay MD; Dr. Ethan Avendano MD ~ Date Dictated: 12/17/24 1358 Date Transcribed: 12/17/241838 Fire Eater: Signed [facility] Other Inital Evaluation (1) - PTon 12-04-2024 Inital Evaluation (1) - PT [facility] Physical Therapy [facility] [address] [place] [address] / REHABILITATION SERVICES INITIAL EVALUATION MR#: [id number] Acct: [id number] Name: FRANCISCO KELLY Rep #: [id number] : 1950 74 From: Mojgan DC Referring Dr.: Sandra Joaquin Status: REG RCR Insurance: MEDICARE PART A B [facility] Patient's Visit Information Visit Information Visit Information: FRANCISCO KELLY is a 74 year old M referred to Physical Therapy by KIM Mendenhall with a diagnosis of PD (balance/Falls). Date of Evaluation: 12/04/24 Physical Therapist: VANDA Shultz Visit Plan Frequency: 2x /Week Duration: 2 Months Plan: 2X/ week for 4 weeks for Postural and trunk stretching (LTR, Wall stretch, trunk rotation to touch the wall), gait training, BW walking, changing direction, dual tasking (such as opp arm and leg and counting BW by 2's etc), stepping over objects with HEP Subjective Subjective: Pt was dx 8 years ago with PD. He take [employer] classes here (2 yoga classes, Mellisa) for a total of 8 classes. Pt has been having some falls. 2-3 times. He was trying to stand on a bucket and fell. He also fell off a ladder. They are trying to take away his car privileges. He reports that he has occ tripped on his feet with walking but he tries to pay attention to that. He reports that he has no trouble getting out of a chair but uses his arms most of the time. His is Kimmy. He has no trouble rolling over in bed. He is able to pick things up from the floor within reason. Stairs: He is able to go up and down recip with 1 railing. He might have a little trouble going up and down a curb step. He has no dizziness. He has been getting shots in his back and his last one was a few weeks ago Pain L foot: Pain Intensity (Out of 10): 1 Objective Objective: Gait: walks with some slight veering, decrease stride length, decreased arm swing LE MMT: B hip flex 4+/5 B knee ext 4+/5 B knee flex 4+/5 FGA: 22 CatSIB: 120 Sit to stand: Able to stand up without UE's Had a hard time with standing opp arm and leg but able to get it after a few tries and able to get X 10 in row Walking BW was tough for the patient...started with larger steps and then got shorter and the feeling of retro LOB Stepping over a 4 inch block he did have retro LOB X 1 Balance/Special Test Scores Functional Gait Assessment Score: 22 % Disability: 26.6700 CATSIB Score (Max score 120 seconds): 120 Lower Extremity Functional Score: 36 Goals Goal 1:: I HEP Goal Time Frame: 6-8 Weeks Goal 2:: Increase balance (FGA score was 22 at eval) Goal Time Frame: 6-8 Weeks Goal 3:: Be able to walk with larger steps and decrease stepping out with gait Goal Time Frame: 6-8 Weeks Goal 4:: Be able to complete X 20 opp arm and leg in standing and reverse opp arm and leg in standing Goal Time Frame: 6-8 Weeks Rehabilitation Potential Rehabilitation Potential: Good Anticipated Interventions Patient/Client Instruction: Educate patient on: Condition and Plan of Care For the Purpose of:: To decrease pain, To increase ROM, To improve nutrient delivery to tissue, To improve muscle performance and motor function, To improve ability to perform ADL's, To increase tolerance to activity/condition/p osition, To improve performance and independence with ADL's, To decrease level of supervision to perform tasks, To improve ability of physical actions for home/community/work/ leisure, To improve gait and locomotor functions, To improve health of tissue, To decrease soft tissue restriction, To increase flexibility/ROM, To improve endurance, To improve balance and To improve safety with gait Therapeutic Exercise to Include: Strength training, Endurance training, Balance training, Body mechanics, Postural training, Flexibilty training, Gait and locomotor training, Neuromotor development, Active ROM and Scapular Strength/Stabilizati on For the Purpose of:: To decrease pain, To increase ROM, To improve nutrient delivery to tissue, To improve muscle performance and motor function, To improve ability to perform ADL's, To increase janina erance to activity/condition/p osition, To improve performance and independence with ADL's, To decrease level of supervision to perform tasks, To improve ability of physical actions for home/community/work/ leisure, To improve gait and locomotor functions, To improve health of tissue, To decrease soft tissue restriction, To increase flexibility/ROM, To improve endurance, To improve balance and To improve safety with gait Functional Training to Include: Gait training For the Purpose of:: To improve gait and locomotor functions and To improve safety with gait Text: Thank you for the opportunity to evaluate your patient. For Medicare and Medicare HMO plans, please review the plan of care (more content not included)... Normal [facility] Cardiology Visit Reporton Cardiology Visit Report [facility] [address] [facility] [address] [address] [place] [address] OFFICE VISIT Date of Service: 11/28/24 MR#: [id number] Acct: [id number] Name: FRANCISCO KELLY Rep #: [id number] : 1950 Provider: Dr. Demina Ramsay MD Age/Sex: 74/M Location: [facility] Status: Signed HPI HPI History of Present Illness Details: Francisco Kelly is a 74-year-old gentleman that presents here today for a cardiovascular follow- up. He has a Hx of CAD and hyperlipidemia. He underwent a diagnostic heart catheterization which demonstrated coronary artery disease where he had stenting to his RCA 03/12/19, and a stagged PCI to his LAD on 03/21/19. 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 He has not had any recent abnormal stress testing. As you know he does have a history of moderate carotid disease and also has been diagnosed with Parkinson's. His beta-leonie has been discontinued due to fatigue. From a cardiac standpoint, patient is doing well. He does not have any chest discomfort/heaviness /tightness. His exercise tolerance is stable for his age. [facility] He does not have any worsening symptoms of shortness of breath. He denies any PND. He does not have any orthopnea. He does not have any symptoms of congestive heart failure. He does not have any palpitations that he is aware of. He does not have any lightheadedness or dizziness. He does not have any near-syncope or syncope. He does not have any lower extremity edema. He does not have any symptoms of claudication. He does have back pain and does get back injections routinely. He tells me he is no longer able to drive. Intake Vital Signs 10/10/23 10:23 11/07/24 11:02 11/28/24 10:50 Height 5 ft 7 in 5 ft 7 in 5 ft 7 in Weight: 152 lb BMI 23.8 BP 107/62 Blood Pressure Location Lt brachial Position Sitting Respiration 16 Pulse 78 Pulse Source Monitor Intake Visit Reasons: 1 Y FU Inlayer Silver Required: No Accompanied by: Significant Other Is patient in pain?: No Allergies No Known Allergies Allergy (Verified 11/28/24 10:54) Medications ???Medication ???Instructions ???Recorded ???Confirmed ???Type multivitamin with folic acid 400 1 tab PO DAILY 06/10/13 11/28/24 H istory mcg tablet folic acid 400 mcg tablet 1 tab PO DAILY 12/24/13 11/28/24 H istory immune glob,gamma(IgG) 10 20 g .Route .o3sdcsi 03/04/1911/03 History hnpb-igm-smfd-IgA 0 to 50 mcg/mL IV solution nitroglycerin 0.4 mg sublingual 0.4 mg sublingual Q5-15M PRN chest 04/03/19 11/28/24 Rx tablet pain #25 tabs ibuprofen 600 mg tablet 600 mg PO Q6H PRN pain #20 tabs 11/28/24 Rx aspirin 81 mg tablet,delayed 81 mg PO DAILY 01/05/21 11/28/24 H istory release (Adult Low Dose Aspirin) memantine 5 mg tablet 10 mg PO BID 02/01/23 11/28/24 His tory rosuvastatin 40 mg tablet 40 mg PO QHS 10/10/23 11/28/24 His tory bupropion HCl 100 mg tablet,12 hr 100 mg PO QAM 11/28/24 11/28/24 H istory sustained-release carbidopa 25 mg-levodopa 100 mg 1 tab PO .qid 11/28/24 11/28/24 Hi story tablet escitalopram oxalate 5 mg tablet 10 mg PO DAILY 11/28/24 11/28/24 H istory (Lexapro) Have you fallen in the past year?: [facility] Tortuous colon Wears glasses Arthritis High cholesterol Easy bruising Back pain Non-smoker History of pain when walking History of echocardiogram History of stress test Cardiology follow-up encounter Parkinson disease Atherosclerosis of coronary artery of [place] heart without angina pectoris Hyperlipidemia Common variable immunodeficiency Benign prostate hyperplasia Basal cell carcinoma of left ear Surgical History History of cardiac catheterization Hx of colonoscopy Hx of transurethral resection of prostate History of coronary artery stent placement (03/21/19) History of herniorrhaphy History of bilateral cataract extraction Family History Mother Heart disease valve replacement Father Parkinson disease Social History Smoking Status: Never smoker alcohol intake: current alcohol intake frequency: holidays/special occasions only substance use type: does not use caffeine: No ROS Const Const: Negative for fatigue, weakness, headache(s), daytime sleepiness or difficulty sleeping ENT ENT: Negative for headache(s), dizziness or Nosebleed/epistaxis Cardio Chest Pain: No Palpitations: No Edema: None Resp Respiratory: Negative for SOB with activity, SOB at rest, SOB orthopnea SOB lying d (more content not included)... Normal [facility] T4 Free Directon 10-31-2024 T4 FREE DIRECT 0.90 ng/dL Normal 0.76-1.46 [facility] Comment on above: Order Comment: Order Date: 10/29/24 Order Info: [id number] - CMP Order Info: [id number] - TSH Order Info: [id number] - FOLS Performed By: #### L 506.0400, L503.0106 #### [facility] Laboratory [address] [place], [address] Comprehensive Metabolic Prof ilon 10-30-2024 Albumin [Mass/Vol] 4.3 g/dL Normal 3.4-4.8 [facility] Comment on above: Order Comment: Order Date: 10/29/24 Order Info: [id number] - CMP Order Info: [id number] - TSH Order Info: [id number] - FOLS Performed By: #### L 501.9520, L501.9985, L100.0100, L500.4050, L506.0250 #### [facility] [address] [place], [address] Albumin/Globulin [Mass ratio] 1.8 {ratio} Normal 0.9-2.4 [facility] Comment on above: Order Comment: Order Date: 10/29/24 Order Info: [id number] - CMP Order Info: [id number] - TSH Order Info: [id number] - FOLS Performed By: #### L 501.9520, L501.9985, L100.0100, L500.4050, L506.0250 #### [facility] [address] [place], [address] ALK PHOS 63 U/L Normal 40-129 [facility] Comment on above: Order Comment: Order Date: 10/29/24 Order Info: [id number] - CMP Order Info: [id number] - TSH Order Info: [id number] - FOLS Performed By: #### L 501.9520, L501.9985, L100.0100, L500.4050, L506.0250 #### [facility] [address] [place], [address] ALT [Catalytic activity/Vol] 31 U/L Normal <=46 [facility] Comment on above: Order Comment: Order Date: 10/29/24 Order Info: [id number] - CMP Order Info: [id number] - TSH Order Info: [id number] - FOLS Performed By: #### L 501.9520, L501.9985, L100.0100, L500.4050, L506.0250 #### [facility] [address] [place], [address] Anion gap [Moles/Vol] 11 mmol/L Normal 5-15 [facility] Comment on above: Order Comment: Order Date: 10/29/24 Order Info: 07 - CMP Order Info: 3015-11 - TSH Order Info: 2284-04 - FOLS Performed By: #### L 501.9520, L501.9985, L100.0100, L500.4050, L506.0250 #### [facility] [address] [place], [address] AST [Catalytic activity/Vol] 35 U/L Normal <=37 [facility] Comment on above: Order Comment: Order Date: 10/29/24 Order Info: [id number] - CMP Order Info: 3015-11 - TSH Order Info: 2284-04 - FOLS Performed By: #### L 501.9520, L501.9985, L100.0100, L500.4050, L506.0250 #### [facility] [address] [place], [address] Bilirubin [Mass/Vol] 0.52 mg/dL Normal 0.00-1.30 [facility] Comment on above: Order Comment: Order Date: 10/29/24 Order Info: [id number] - CMP Order Info: 3015-11 - TSH Order Info: 2284-04 - FOLS Performed By: #### L 501.9520, L501.9985, L100.0100, L500.4050, L506.0250 #### [facility] [address] [place], [address] BUN/CRE 16.3 RATIO Normal 10-20 [facility] Comment on above: Order Comment: Order Date: 10/29/24 Order Info: [id number] - CMP Order Info: 3015-11 - TSH Order Info: 228-8 - FOLS Performed By: #### L 501.9520, L501.9985, L100.0100, L500.4050, L506.0250 #### [facility] [address] [place], [address] Calcium [Mass/Vol] 9.6 mg/dL Normal 7.6-11.0 [facility] Comment on above: Order Comment: Order Date: 10/29/24 Order Info: [id number] - CMP Order Info: 3015-11 - TSH Order Info: 2288 - FOLS Performed By: #### L 501.9520, L501.9985, L100.0100, L500.4050, L506.0250 #### [facility] [address] [place], [address] Chloride [Moles/Vol] 102 mmol/L Normal 96-108 [facility] Comment on above: Order Comment: Order Date: 10/29/24 Order Info: [id number] - CMP Order Info: 3015-11 - TSH Order Info: 228-8 - FOLS Performed By: #### L 501.9520, L501.9985, L100.0100, L500.4050, L506.0250 #### [facility] [address] [place], [address] CO2 [Moles/Vol] 25.1 mmol/L Normal 22.0-29.0 [facility] Comment on above: Order Comment: Order Date: 10/29/24 Order Info: [id number] - CMP Order Info: 3015-11 - TSH Order Info: 2284-8 - FOLS Performed By: #### L 501.9520, L501.9985, L100.0100, L500.4050, L506.0250 #### [facility] [address] [place], [address] Creatinine [Mass/Vol] 1.0 mg/dL Normal 0.8-1.3 [facility] Comment on above: Order Comment: Order Date: 10/29/24 Order Info: 0786- - CMP Order Info: 3015-11 - TSH Order Info: 2284-04 - FOLS Performed By: #### L 501.9520, L501.9985, L100.0100, L500.4050, L506.0250 #### [facility] [address] [place], [address] GFR/1.73 sq M.predicted among non-blacks MDRD (S/P/Bld) [Vol rate/Area] 86 mL/min/{1.73_m2} Normal >60 [facility] Comment on above: Order Comment: Order Date: 10/29/24 Order Info: 0786- - CMP Order Info: 3015-11 Order Info: 2284-04 - FOLS Result Comment: mL/m in/1.73m2 CKD-EPI Creatinine Equation (2020) Performed By: #### L 501.9520, L501.9985, L100.0100, L500.4050, L506.0250 #### [facility] [address] [place], [address] Globulin (S) [Mass/Vol] 2.4 g/dL Normal 2.2-4.2 [facility] Comment on above: Order Comment: Order Date: 10/29/24 Order Info: 0786-1 - CMP Order Info: 3015-11 - Order Info: 2284-04 - FOLS Performed By: #### L 501.9520, L501.9985, L100.0100, L500.4050, L506.0250 #### [facility] [address] [place], [address] Glucose [Mass/Vol] 80 mg/dL Normal 70-99 [facility] Comment on above: Order Comment: Order Date: 10/29/24 Order Info: 0786-1 - CMP Order Info: 3015-11 - TSH Order Info: 8 - FOLS Performed By: #### L 501.9520, L501.9985, L100.0100, L500.4050, L506.0250 #### [facility] [address] [place], [address] Potassium [Moles/Vol] 4.5 mmol/L Normal 3.3-5.1 [facility] Comment on above: Order Comment: Order Date: 10/29/24 Order Info: 07 - CMP Order Info: 3015-11 - TSH Order Info: 8 - FOLS Performed By: #### L 501.9520, L501.9985, L100.0100, L500.4050, L506.0250 #### [facility] [address] [place], [address] Sodium [Moles/Vol] 138 mmol/L Normal 133-145 [facility] Comment on above: Order Comment: Order Date: 10/29/24 Order Info: 0786 - CMP Order Info: 3015-11 - TSH Order Info: 8 - FOLS Performed By: #### L 501.9520, L501.9985, L100.0100, L500.4050, L506.0250 #### [facility] [address] [place], [address] T PROT 6.7 g/dL Normal 5.9-8.4 [facility] Comment on above: Order Comment: Order Date: 10/29/24 Order Info: 0786-1 - CMP Order Info: 3015-11 - TSH Order Info: 8 - FOLS Performed By: #### L 501.9520, L501.9985, L100.0100, L500.4050, L506.0250 #### [facility] [address] [place], [address] Urea nitrogen [Mass/Vol] 15 mg/dL Normal 4-19 [facility] Comment on above: Order Comment: Order Date: 10/29/24 Order Info: 0786-1 - CMP Order Info: 3016-3 - TSH Order Info: 2284-8 - FOLS Performed By: #### L 501.9520, L501.9985, L100.0100, L500.4050, L506.0250 #### [facility] [address] [place], [address] Folates, (Folic Acid)on 10-06 FOLATES 32.00 ng/mL Normal 4.60-34.80 [facility] Comment on above: Order Comment: Order Date: 10/29/24 Order Info: 0786-1 - CMP Order Info: 3016-3 - TSH Order Info: 2284-8 - FOLS N Result Comment: Hemo lysis, Results will be affected, Requires Recollection. Performed By: #### L 501.9520, L501.9985, L100.0100, L500.4050, L506.0250 #### [facility] [address] [place], [address] Hemoglobin A1con 10-30-2024 HbA1c (Bld) [Mass fraction] 5.8 % Normal <=5.6 [facility] Comment on above: Order Comment: Order Date: 10/29/24 Order Info: 4548-4 - A1C Performed By: #### L 501.9520, L501.9985, L100.0100, L500.4050, L506.0250 #### [facility] [address] [place], [address] L503.0106on 10-30-2024 Cobalamin (Vitamin B12) [Mass/Vol] 555 pg/mL Normal 180-914 [facility] Comment on above: Order Comment: Order Date: 10/29/24 Order Info: 0786-1 - CMP Order Info: 3016-3 - TSH Order Info: 2284-8 - FOLS Performed By: #### L 506.0400, L503.0106 #### [facility] [address] [place], [place], [address] Thyroid Stim Hormone (TSH)on 10-30-2024 TSH 6.000 uIU/mL High 0.300-4.200 [facility] Comment on above: Order Comment: Order Date: 10/29/24 Order Info: 0786-1 - CMP Order Info: 3016-3 - TSH Order Info: 2284-8 - FOLS Performed By: #### L 501.9520, L501.9985, L100.0100, L500.4050, L506.0250 #### [facility] [address] [place], [place], [address] Absolute lymphocyte countOrd ered By: Ethan Avendano on 10-29-2024 Lymphocytes Auto (Unsp spec) [#/Vol] 0.90 10*3/uL 0.83-4.51 [facility] Absolute neutrophil countOrd ered By: Ethan Avendano on 10-29-2024 Neutrophils (Bld) [#/Vol] 3.2 10*3/uL 2.0-7.7 [facility] Automated lymphocyte count a s percentage of total leukocytesOrdered By: Ethan Avendano on 10-29-2024 Lymphocytes/100 WBC Auto (Unsp spec) 19.3 % 19-41 [facility] BUN/creatinine ratioOrdered By: Ethan Avendano on 10-29-2024 Urea nitrogen/Creatinine [Mass ratio] 16.3 mg/mg 10-20 [facility] Basophil percentageOrdered B y: Ethan Avendano on 10-29-2024 Basophils/100 WBC (Bld) 0.2 % 0-1 [facility] Bilirubin, totalOrdered By: Ethan Avendano on 10-29-2024 Bilirubin [Mass/Vol] 0.52 mg/dL 0.00-1.30 [facility] CBC W/Diff, Automatedon 10-06 Absolute Lymph 0.90 X10 3/uL Normal 0.83-4.51 [facility] Comment on above: Order Comment: Order Date: 10/29/24 Order Info: 0184-1 - CBCD Performed By: #### L 501.9520, L501.9985, L100.0100, L500.4050, L506.0250 #### [facility] [address] [place], [address] Absolute Neut 3.2 X10 3/uL Normal 2.0-7.7 [facility] Comment on above: Order Comment: Order Date: 10/29/24 Order Info: 0184-1 - CBCD Performed By: #### L 501.9520, L501.9985, L100.0100, L500.4050, L506.0250 #### [facility] [address] [place], [address] Basophils/100 WBC (Bld) 0.2 % Normal 0-1 [facility] Comment on above: Order Comment: Order Date: 10/29/24 Order Info: 0184-1 - CBCD Performed By: #### L 501.9520, L501.9985, L100.0100, L500.4050, L506.0250 #### [facility] [address] [place], [address] Eosinophils/100 WBC (Bld) 0.0 % Normal 0-5 [facility] Comment on above: Order Comment: Order Date: 10/29/24 Order Info: 0184-1 - CBCD Performed By: #### L 501.9520, L501.9985, L100.0100, L500.4050, L506.0250 #### [facility] [address] [place], [address] Erythrocyte distribution width (RBC) [Ratio] 12.9 % Normal 11.6-14.6 [facility] Comment on above: Order Comment: Order Date: 10/29/24 Order Info: 0184-1 - CBCD Performed By: #### L 501.9520, L501.9985, L100.0100, L500.4050, L506.0250 #### [facility] [address] [place], [address] Hematocrit (Bld) [Volume fraction] 41.1 % Normal 40-54 [facility] Comment on above: Order Comment: Order Date: 10/29/24 Order Info: 0184-1 - CBCD Performed By: #### L 501.9520, L501.9985, L100.0100, L500.4050, L506.0250 #### [facility] [address] [facility] [place], [address] Hemoglobin (Bld) [Mass/Vol] 13.7 g/dL Normal 13.0-16.5 [facility] Comment on above: Order Comment: Order Date: 10/29/24 Order Info: 0184-1 - CBCD Performed By: #### L 501.9520, L501.9985, L100.0100, L500.4050, L506.0250 #### [facility] [address] [facility] [place], [address] IG% 0.400 Normal 0.0-0.9 [facility] Comment on above: Order Comment: Order Date: 10/29/24 Order Info: 0184-1 - CBCD Result Comment: IG% - Immature Granulocytes (promyelocytes, myelocytes and metamyelocytes) > 1% indicates that a LEFT SHIFT is Present. Performed By: #### L 501.9520, L501.9985, L100.0100, L500.4050, L506.0250 #### [facility] [address] [place], [address] Lymphocytes/100 WBC (Bld) 19.3 % Normal 19-41 [facility] Comment on above: Order Comment: Order Date: 10/29/24 Order Info: 0184-1 - CBCD Performed By: #### L 501.9520, L501.9985, L100.0100, L500.4050, L506.0250 #### [facility] [address] [place], [address] MCH (RBC) [Entitic mass] 30.5 pg Normal 27.0-32.0 [facility] Comment on above: Order Comment: Order Date: 10/29/24 Order Info: 0184-1 - CBCD Performed By: #### L 501.9520, L501.9985, L100.0100, L500.4050, L506.0250 #### [facility] [address] [place], [address] MCHC (RBC) [Mass/Vol] 33.3 g/dL Normal 32-36 [facility] Comment on above: Order Comment: Order Date: 10/29/24 Order Info: 0184-1 - CBCD Performed By: #### L 501.9520, L501.9985, L100.0100, L500.4050, L506.0250 #### [facility] [address] [place], [address] MCV (RBC) [Entitic vol] 91.5 fL Normal 80-94 [facility] Comment on above: Order Comment: Order Date: 10/29/24 Order Info: 0184- - CBCD Performed By: #### L 501.9520, L501.9985, L100.0100, L500.4050, L506.0250 #### [facility] [address] [place], [address] Monocytes/100 WBC (Bld) 10.7 % High 0-10 [facility] Comment on above: Order Comment: Order Date: 10/29/24 Order Info: 0184-1 - CBCD Performed By: #### L 501.9520, L501.9985, L100.0100, L500.4050, L506.0250 #### [facility] [address] [place], [address] Neutrophils/100 WBC (Bld) 69.4 % Normal 47-70 [facility] Comment on above: Order Comment: Order Date: 10/29/24 Order Info: 0184-1 - CBCD Performed By: #### L 501.9520, L501.9985, L100.0100, L500.4050, L506.0250 #### [facility] [address] [place], [address] Nucleated RBC (Bld) [#/Vol] 0 10*3/uL Normal 0-5 [facility] Comment on above: Order Comment: Order Date: 10/29/24 Order Info: 0184-1 - CBCD Performed By: #### L 501.9520, L501.9985, L100.0100, L500.4050, L506.0250 #### [facility] [address] [place], [address] Platelet mean volume (Bld) [Entitic vol] 11.4 fL Normal 6.2-12.0 [facility] Comment on above: Order Comment: Order Date: 10/29/24 Order Info: 0184-1 - CBCD Performed By: #### L 501.9520, L501.9985, L100.0100, L500.4050, L506.0250 #### [facility] [address] [place], [address] Platelets (Bld) [#/Vol] 126 10*3/uL Low 150-450 [facility] Comment on above: Order Comment: Order Date: 10/29/24 Order Info: 0184-1 - CBCD Performed By: #### L 501.9520, L501.9985, L100.0100, L500.4050, L506.0250 #### [facility] [address] [place], [address] RBC (Bld) [#/Vol] 4.49 10*6/uL Low 4.6-6.2 [facility] Comment on above: Order Comment: Order Date: 10/29/24 Order Info: 0184-1 - CBCD Performed By: #### L 501.9520, L501.9985, L100.0100, L500.4050, L506.0250 #### [facility] [address] [place], [place], [id number] (452) RDW SD 42.5 fl Normal 35.1-43.9 [facility] Comment on above: Order Comment: Order Date: 10/29/24 Order Info: 0184-1 - CBCD Performed By: #### L 501.9520, L501.9985, L100.0100, L500.4050, L506.0250 #### [facility] [address] [place], [address] WBC (Bld) [#/Vol] 4.7 10*3/uL Normal 4.4-11.0 [facility] Comment on above: Order Comment: Order Date: 10/29/24 Order Info: 0184-1 - CBCD Performed By: #### L 501.9520, L501.9985, L100.0100, L500.4050, L506.0250 #### [facility] [address] [place], [place], [address] Carbon dioxide measurementOr dered By: Ethan Avendano on 10-29-2024 CO2 [Moles/Vol] 25.1 mmol/L 22.0-29.0 [facility] Chloride measurementOrdered By: Ethan Avendano on 10-29-2024 Chloride [Moles/Vol] 102 mmol/L 96-108 [facility] Creatinine [Moles/Vol]Ordere d By: Ethan Avendano on 10-29-2024 Creatinine [Mass/Vol] 1.0 mg/dL 0.8-1.3 [facility] Eosinophil percentageOrdered By: Ethan Avendano on 10-29-2024 Eosinophils/100 WBC (Bld) 0.0 % 0-5 [facility] Erythrocyte distribution wid th ratioOrdered By: Ethan Avendano on 10-29-2024 Erythrocyte distribution width (RBC) [Ratio] 12.9 % 11.6-14.6 [facility] Erythrocyte distribution wid th standard deviationOrdered By: Ethan Avendano on 10-29-2024 Erythrocyte distribution width (RBC) [Entitic vol] 42.5 fL 35.1-43.9 [facility] Erythrocyte distribution width (RBC) [Ratio] 42.5 fl 35.1-43.9 [facility] Folate measurementOrdered By : Ethan Avendano on 10-29-2024 Folate 32.00 ng/mL 4.60-34.80 [facility] Comment on above: Hemolysis, Results w ill be affected, Requires Recollection. GFR/1.73 sq M.predicted maxine g non-blacks MDRD (S/P/Bld) [Vol rate/Area]Ordered By: Ethan Avendano on 10-29-2024 Estimated GFR (MDRD) Non-Af Amer 86 >60 [facility] Comment on above: mL/min/1.73m2 CKD-EP I Creatinine Equation (2020) Glomerular filtration rate ( GFR) estimation/1.73 sq m using serum, plasma, or whole bOrdered By: Ethan Avendano on 10-29-2024 GFR/1.73 sq M.predicted among non-blacks MDRD (S/P/Bld) [Vol rate/Area] 86 mL/min/{1.73_m2} >60 [facility] Comment on above: mL/min/1.73m2 CKD-EP I Creatinine Equation (2020) Hematocrit Auto (Bld) [Volum e fraction]Ordered By: Ethan Avendano on 10-29-2024 Hematocrit (Bld) [Volume fraction] 41.1 % 40-54 [facility] Hemoglobin A1c percentageOrd ered By: Ethan Avendano on 10-29-2024 HbA1c (Bld) [Mass fraction] 5.8 % >5.7 [facility] Hemoglobin measurementOrdere d By: Ethan Avendano on 10-29-2024 Hemoglobin (Bld) [Mass/Vol] 13.7 g/dL 13.0-16.5 [facility] Immature granulocytes/100 WB C Auto (Bld)Ordered By: Ethan Avendano on 10-29-2024 Immature granulocytes/100 WBC (Bld) 0.400 % 0.0-0.9 [facility] Comment on above: IG% - Immature Granu locytes (promyelocytes, myelocytes and metamyelocytes) > 1% indicates that a LEFT SHIFT is Present. Laboratory - Chemistry and C hemistry - challengeOrdered By: Ethan Avendano on 10-29-2024 AST [Catalytic activity/Vol] 35 U/L <38 [facility] Cobalamin (Vitamin B12) [Mass/Vol] 555 pg/mL 180-914 [facility] Lymphocytes Auto (Unsp spec) [#/Vol]Ordered By: Ethan Avendano on 10-29-2024 Lymphocytes (Bld) [#/Vol] 0.90 10*3/uL 0.83-4.51 [facility] Lymphocytes/100 WBC Auto (Un sp spec)Ordered By: Ethan Avendano on 10-29-2024 Lymphocytes/100 WBC (Bld) 19.3 % 19-41 [facility] MCV (mean corpuscular volume ) determinationOrdered By: Ethan Avendano on 10-29-2024 MCV (RBC) [Entitic vol] 91.5 fL 80-94 [facility] Mean corpuscular hemoglobin (MCH) determinationOrdered By: Ethan Avendano on 10-29-2024 MCH (RBC) [Entitic mass] 30.5 pg 27.0-32.0 [facility] Mean corpuscular hemoglobin concentration (MCHC) determinationOrdered By: Ethan Avendano on 10-29-2024 MCHC (RBC) [Mass/Vol] 33.3 g/dL 32-36 [facility] Mean platelet volume determi nationOrdered By: Ethan Avendano on 10-29-2024 Platelet mean volume (Bld) [Entitic vol] 11.4 fL 6.2-12.0 [facility] Monocyte percentageOrdered B y: Ethan Avendano on 10-29-2024 Monocytes/100 WBC (Bld) 10.7 % High 0-10 [facility] Neutrophil percentageOrdered By: Ethan Avendano on 10-29-2024 Neutrophils/100 WBC (Bld) 69.4 % 47-70 [facility] Nucleated red blood cell per centageOrdered By: Ethan Avendano on 10-29-2024 Nucleated RBC/100 WBC (Bld) [Ratio] 0 % 0-5 [facility] Platelet countOrdered By: Abdulkadir Avendano on 10-29-2024 Platelets (Bld) [#/Vol] 126 10*3/uL Low 150-450 [facility] RBC Auto (Bld) [#/Vol]Ordere d By: Ethan Avendano on 10-29-2024 RBC (Bld) [#/Vol] 4.49 10*6/uL Low 4.6-6.2 [facility] Serum globulin measurementOr dered By: Ethan Avendano on 10-29-2024 Globulin (S) [Mass/Vol] 2.4 g/dL 2.2-4.2 [facility] Serum glucose measurement (m ass/volume)Ordered By: Ethan Avendano on 10-29-2024 Glucose [Mass/Vol] 80 mg/dL 70-99 [facility] Serum or plasma alanine garcia otransferase (ALT) measurementOrdered By: Ethan Avendano on 10-29-2024 ALT [Catalytic activity/Vol] 31 U/L <47 [facility] Serum or plasma albumin john urement (mass/volume)Ordered By: Ethan Avendano on 10-29-2024 Albumin [Mass/Vol] 4.3 g/dL 3.4-4.8 [facility] Serum or plasma albumin/glob ulin mass ratioOrdered By: Ethan Avendano on 10-29-2024 Albumin/Globulin [Mass ratio] 1.8 {ratio} 0.9-2.4 [facility] Serum or plasma alkaline dylon sphatase measurementOrdered By: Ethan Avendano on 10-29-2024 ALP [Catalytic activity/Vol] 63 U/L 40-129 [facility] Serum or plasma anion gap de termination (moles/volume)Ordered By: Ethan Avendano on 10-29-2024 Anion gap [Moles/Vol] 11 mmol/L 5-15 [facility] Serum or plasma calcium john urement (mass/volume)Ordered By: Ethan Avendano on 10-29-2024 Calcium [Mass/Vol] 9.6 mg/dL 7.6-11.0 [facility] Serum or plasma creatinine m easurement (moles/volume)Ordered By: Ethan Avendano on 10-29-2024 Creatinine [Moles/Vol] 1.0 mg/dL 0.8-1.3 [facility] Serum or plasma potassium me asurementOrdered By: Ethan Avendano on 10-29-2024 Potassium [Moles/Vol] 4.5 mmol/L 3.3-5.1 [facility] Serum or plasma sodium measu rement (moles/volume)Ordered By: Ethan Avendano on 10-29-2024 Sodium [Moles/Vol] 138 mmol/L 133-145 [facility] Serum or plasma urea nitroge n measurement (mass/volume)Ordered By: Ethan Avendano on 10-29-2024 Urea nitrogen [Mass/Vol] 15 mg/dL 4-19 [facility] T4 freeOrdered By: Ethan cheng on 10-29-2024 Free T4 [Mass/Vol] 0.90 ng/dL 0.76-1.46 [facility] TSH DL <= 0.005 mIU/L QnOrde red By: Ethan Avendano on 10-29-2024 Thyroid Stimulating Hormone (TSH) 6.000 uIU/mL High 0.300-4.200 [facility] TSH Qn 6.000 uIU/mL High 0.300-4.200 [facility] Total proteinOrdered By: Gaby Avendano on 10-29-2024 Protein [Mass/Vol] 6.7 g/dL 5.9-8.4 [facility] White blood cell (WBC) count Ordered By: Ethan Avendano on 10-29-2024 WBC (Bld) [#/Vol] 4.7 10*3/uL 4.4-11.0 [facility] Barium Enema w/Air Contrasto n 09-11-2024 Barium Enema w/Air Contrast [facility] Imaging Services [address] [place] [address] Barium Enema w/Air Contrast MR#: [id number] Acct: [id number] Name: FRANCISCO KELLY Rep #: [id number] : 1950 M 74 From: Derick villarreal MD PCP: Dr. Ethan Avendano MD Status: REG CLI Study: Barium Enema w/Air Contrast Date of Exam: 04/28 Exam# [id number] Ordering Dr: Jameel Oseguera [id number] STUDY: BARIUM ENEMA. REASON FOR EXAM: Male, 74 years old. Incomplete colonoscopy/tortuous colon FLUOROSCOPY TIME (if supplied): ( 1 minute and 40 seconds ) minutes/seconds. 93.09 mGy. 7 images were obtained. 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 Following this, barium enema was introduced retrograde through the rectum. Entire colon was opacified. COMPARISON: None. FINDINGS: The gas pattern is unremarkable. The patient is status post vertebral plasty of the L1 vertebrae. Scattered residual fecal material is seen in the rectosigmoid colon. Contrast was introduced retrograde. No evidence of obstruction. No mass lesion is seen. Redundancy of the sigmoid colon. 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 Scattered residual fecal material seen in the rectosigmoid colon. Electronically Signed: Derick Strong MD at 13:52 EST Reading Location ID and State: [address] [place] [address] , Service support , CC: Dr. Jameel Oseguera MD; Dr. Ethan Avendano MD Fire Eater: Signed Normal [facility] Colonoscopy Reporton Colonoscopy Report [facility] Medical Records Department [address] [address] Colonoscopy Report MR#: [id number] Acct: [id number] Name: FRANCISCO KELLY Rep #: [id number] : 1950 74 From: Jameel Oseguera MD PCP: Dr. Ethan Avendano MD Status:REG [facility] Patient Name: Francisco Kelly Procedure Date: 08/23/2024 8:12 AM Date of : 1950 Age: 74 Procedure: Colonoscopy Indications: Positive Cologuard test Providers: Jameel Oseguera MD Medicines: Propofol per Anesthesia Patient Profile: Last Colonoscopy: more than 10 years ago. Complications: No immediate complications. Estimated blood loss: Minimal. Procedure: Pre-Anesthesia Assessment: - Prior to the procedure, a History and Physical was performed, and patient medications and allergies were reviewed. The patient's tolerance of previous anesthesia was also reviewed. The risks and benefits of the procedure and the sedation options and risks were discussed with the patient. All questions were answered, and informed consent was obtained. Prior Anticoagulants: The patient has taken no anticoagulant or antiplatelet agents. After reviewing the risks and benefits, the patient was deemed in satisfactory condition to undergo the procedure. After I obtained informed consent, the scope was passed under direct vision. Throughout the procedure, the patient's blood pressure, pulse, and oxygen saturations were monitored continuously. The pediatric colonoscope was introduced through the anus and advanced to the transverse colon. The colonoscopy was performed without difficulty. The patient tolerated the procedure well. The quality of the bowel preparation was poor. Scope In: 8:24:21 AM Scope Withdrawal Time 0 hours 6 minutes 23 seconds Scope Out: 8:50:00 AM Total Procedure Duration Time 0 hours 25 minutes 39 seconds Findings: The colon (entire examined portion) was significantly tortuous. Advancing the scope required changing the patient to a supine position. Impression: - Preparation of the colon was poor. - Tortuous colon. - No specimens collected. Recommendation: - Discharge patient to home. - Resume previous diet. - Continue present medications. - Repeat colonoscopy in 1 year for surveillance. - Perform an air contrast barium enema. Procedure Code(s): --- Professional --- 63618, 53, Colonoscopy, flexible; diagnostic, including collection of specimen(s) by brushing or washing, when performed (separate procedure) Diagnosis Code(s): --- Professional --- R19.5, Other fecal abnormalities Q43.8, Other specified congenital malformations of intestine CPT copyright 2021 [employer]. All rights reserved. The codes documented in this report are preliminary and upon sales recruiter review may be revised to meet current compliance requirements. Jameel Oseguera MD 08/23/2024 8:53:45 AM This report has been signed electronically. Number of Addenda: 0 Note Initiated On: 08/23/2024 8:12 AM 08/23/24 0854 Date Jameel Cruz Signature: Date (if indicated) CC: Dr. Jameel Oseguera MD; Dr. Ethan Avendano MD Date Dictated: 08/23/24811 Date Transcribed: Fire Eater: HELLEN [facility] MR/POSTOP.[facility] 08-23-2024 MR/POSTOP.[facility] Medical Records Department [address] [place] [address] Anesthesia Postop Eval I 08/23/24858 MR#: [id number] Acct: [id number] Name: FRANCISCO KELLY Rep #: [id number] : 1950 74 From: Herman Villa PCP: Dr. Ethan Avendano MD Status:REG SD Y Race: C Location: [place] [address] Anesthesia: Postop Eval I Current Vital Signs Temperature: 99.1 F Pulse Rate: 76 Blood Pressure: 96/60 Respiratory Rate: 16 Pulse Ox: 95 Oxygen Delivery Method: Room Air Assessment Airway patent: Yes Spontaneous unlabored respirations: Yes Mental status: Asleep nausea: No Vomiting: No Anesthesia Complication: No Fluid Hydration Crystalloid volume administer (ml): 60 Total IV fluid infused: 60 Progress Note Anesthesia document: Postop Eval 1 completed: Yes 08/23/24900 Date Herman Cruz Signature: Date CC: Signed Normal [facility] MR/[id number] 08-23-2024 MR/POSTOPAN2 [facility] Medical Records Department [address] [place] [address] Anesthesia Postop Eval II 08/23/24910 MR#: [id number] Acct: [id number] Name: FRANCISCO KELLY Rep #: [id number] : 1950 74 From: Aleksandar Hudson MD PCP: Dr. Ethan Avendano MD Status:REG SDC Y Race: C Location: [address] Anesthesia Postop Eval I Sum Postop Eval Completion status Anesthesia document: Postop Eval 1 completed: Yes Anesthesia Postop Eval I Summary Anesthesia Postop Eval I Summary: Anesthesia Postop Eval I: Assessment Summary Airway patent Yes 08/23/24 09:01 [email or web address] Spontaneous unlabored Yes 08/23/24 09:01 [email or web address] respirations Mental status Asleep 08/23/24 09:01 [email or web address] nausea No 08/23/24 09:01 [email or web address] Vomiting No 08/23/24 09:01 [email or web address] Anesthesia Postop Eval I: Fluid Summary Crystalloid volume administer 60 08/23/24 09:01 [email or web address] (ml) Colloids volume administered ( ml) Blood Product volume administered (ml) Total IV fluid infused 60 08/23/24 09:01 [email or web address] Anesthesia Postop Eval I: Summary Notes Anesthesia Complication No 08/23/24 09:01 [email or web address] Anesthesia Complication Comment: Post-operative progress note Anesthesia: Postop Eval II Evaluation Mental status: Awake Pain Level: 0 nausea: No Vomiting: No 08/23/24910 Date Aleksandar Hudson MD Cosigner Signature: Date CC: Signed Normal [facility] MR/PATBrett 08-22-2024 MR/PATLESLI [facility] Medical Records Department [address] [place] [address] PAT - Anesthesia 08/22/24 1525 MR#: [id number] Acct: [id number] Name: FRANCISCO KELLY Rep #: [id number] : 1950 74 From: Sage Tracey MD PCP: Dr. 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 When Was Last Pacemaker Check QUESTION #4 FULL TEXT: You/Your Family Experience fever (hyperthermia) with Anesthesia Last Oral Intake Last Oral intake: Last Oral Intake NPO since Meds taken in AM with sips of water? 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 Female No 08/22/24 10:23 HX of Motion Sickness No 08/22/24 10:23 HX of N/V After Surgery No 08/22/24 10:23 Non-Smoker Yes 08/22/24 10:23 Duration of Surgery greater No 08/22/24 10:23 than 60 minutes Number of Risk Factors 1 08/22/24 10:23 PONV Score Low Risk 08/22/24 10:23 Height Weight Height Weight: Anesthesia: Height Weight Height 5 ft 7 in 07/11/24 11:11 Respiratory Assessment Respiratory Assessment - insert molding operator: Respiratory Tract Infection Hx - insert molding operator Hx Respiratory Tract Infection No 08/22/24 10:23 STOP Sleep Apnea STOP Sleep Apnea - insert molding operator: STOP Sleep Apnea - insert molding operator Hx Hypertension No 08/22/24 10:23 Hx Sleep Apnea No 08/22/24 10:23 CPAP BIPAP Do you snore loudly (louder Yes 08/22/24 10:23 than talking or can be heard Do you often feel tired/ Yes 08/22/24 10:23 fatigued/ sleepy during daytime? Has anyone observed you stop No 08/22/24 10:23 breathing during sleep? STOP Results Positive 08/22/24 10:23 QUESTION #5 FULL TEXT : Do you snore loudly (louder than talking or can be heard through closed doors)? 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 Specify any problems Hx of Preganancy in last 3 No 08/22/24 10:23 Months Nurse Filling Out Transfusion DSCHRIBER 08/22/24 10:23 Questions: Date: 08/22/24 08/22/24 10:23 Time: 10:26 08/22/24 10:23 Patient unable to answer at this time (ie. 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: /Reproducti ve Hx- insert molding operator Hx Now No 08/22/24 10:23 Gestational Age (in weeks): EDC: Hx Hx Para Hx Section SAB No 08/22/24 10:23 [facility] Medical History (Updated 08/22/24 @ 10:37 by Bebe Nava) Wears glasses Arthritis High cholesterol Easy bruising Back pain Non-smoker History of pain when walking History of echocardiogram History of stress test Cardiology follow-up encounter Parkinson disease Atherosclerosis of coronary artery of [place] heart without angina pectoris Hyperlipidemia Common variable immunodeficiency Benign prostate hyperplasia Basal cell carcinoma of left ear Home Medications ???Medication ???Instructions ???Recorded ???Last Taken ???Type multivitamin with folic acid 400 1 tab PO DAILY 06/10/13 08/19/24 History mcg tablet folic acid 400 mcg tablet 1 tab PO DAILY 12/24/13 Unknown History immune glob,gamma(IgG) 10 20 g .Route .[id number] 03/04/19 Unknown History vcsc-gwi-wkzy-IgA 0 to 50 mcg/mL IV solution nitroglycerin 0.4 mg sublingual 0.4 mg sublingual Q5-15M PRN chest 04/03/19 Unknown Rx tablet pain #25 tabs celecoxib 200 mg capsule 200 mg PO BID 06/04 (more content not included)... Normal [facility] Surgery Visit Reporton 07-10 Surgery Visit Report [facility] [address] [place] [address] OFFICE VISIT Date of Service: 07/10/24 MR#: [id number] Acct: [id number] Name: FRANCISCO KELLY Rep #: [id number] : 1950 Provider: Dr. Jameel workman MD Age/Sex: 74/M Location: [facility] Status: Signed Intake Vital Signs 06/06/24 10:48 07/10/24 14:18 Height 5 ft 7 in 5 ft 7 in Weight: 5 lb 8 oz BMI 0.8 BP 148/70 H Blood Pressure Location Rt brachial Position Sitting Respiration 17 Pulse 70 Pulse Source Monitor Pulse Oximetry (%) 100 Oxygen Delivery Method room air Intake Visit Reasons: POSITIVE COLOGUARD Chief Complaint: Positive cologuard Is patient in pain?: No Allergies No Known Allergies Allergy (Verified 07/10/24 14:19) Medications ???Medication ???Instructions ???Recorded ???Confirmed ???Type multivitamin with folic acid 400 1 tab PO DAILY 06/10/13 07/10/24 History mcg tablet folic acid 400 mcg tablet 1 tab PO DAILY 12/24/13 07/10/24 History immune glob,gamma(IgG) 10 20 g .Route .[id number] 03/04/19 07/10/24 History pgqa-xgr-zlbp-IgA 0 to 50 mcg/mL IV solution nitroglycerin 0.4 mg sublingual 0.4 mg sublingual Q5-15M PRN chest 04/03/19 07/10/24 Rx tablet pain #25 tabs celecoxib 200 mg capsule 200 mg PO BID 06/14/19 07/10/24 History ibuprofen 600 mg tablet 600 mg PO Q6H PRN pain #20 tabs 12/30/20 07/10/24 Rx aspirin 81 mg tablet,delayed 81 mg PO DAILY 01/05/21 07/10/24 History release (Adult Low Dose Aspirin) gabapentin 300 mg capsule 300 mg PO TID 09/06/21 07/10/24 History carbidopa 25 mg-levodopa 100 mg 1 tab PO .qid 02/01/23 07/10/24 History tablet escitalopram oxalate 5 mg tablet 5 mg PO DAILY 02/01/23 07/10/24 History (Lexapro) memantine 5 mg tablet 10 mg PO BID 02/01/23 07/10/24 History tramadol 50 mg tablet 50 mg PO BID PRN pain 02/01/23 07/10/24 History rosuvastatin 40 mg tablet 40 mg PO QHS 10/10/23 07/10/24 History metoprolol succinate 25 mg 25 mg PO DAILY #90 tabs 12/20/23 07/10/24 Rx tablet,extended release 24 hr Have you fallen in the past year?: No PFSH Medical History Abnormal chest CT Atherosclerosis of coronary artery of [place] heart without angina pectoris Basal cell carcinoma of left ear Benign prostate hyperplasia Common variable immunodeficiency Hyperlipidemia Mass of upper lobe of right lung Parkinson disease Surgical History History of transurethral resection of prostate (12/30/20) History of coronary artery stent placement (03/21/19) History of herniorrhaphy History of bilateral cataract extraction Family History Mother Heart disease valve replacement Father Parkinson disease Social History Smoking Status: Never smoker alcohol intake: current alcohol intake frequency: holidays/special occasions only substance use type: does not use caffeine: No HPI HPI HPI: Patient is a 74-year-old male here with positive Cologuard. He has not had a colonoscopy in several years. He denies abdominal pain or blood in the stool or family history of colon cancer. ROS General General: Yes fatigue; No weight change, appetite, colon cancer, breast cancer or weakness HEENT HEENT: No difficulty swallowing, eye injury, eye surgery, swollen glands or hoarseness Endo Endocrine: No thyroid disease, diabetes mellitus, thyroid cancer, Hair loss, heat intolerance or cold intolerance Skin Skin: No rash or changing moles Musc Musculoskeletal: Yes back problems and rheumatoid arthritis; No arthritis, gout or joint pain Cardio Cardiovascular: Yes heart stent; No murmur, pacemaker, heart disease, atrial fibrillation, high blood pressure, heart attack, palpitations, shortness of breat with exertion or chest pain Psych Psychiatric: No depression, anxiety or hearing voices Resp Respiratory: Yes shortness of breath, No sleep apnea, No cough, No COPD, No asthma, No emphysema and No wheezing Gastro Gastrointestinal: No abdominal pain, No nausea or vomiting, Yes diarrhea, Yes constipation, No blood in stool, Yes acid reflux, No hemorrhoids, No ulcers, No gallbladder problem and No black,tarry stools Bunny Hematologic: No blood thinners, No blood disorders, No bleeding, No anemia and No blood clots Neuro Neurologic: No system reviewed and no additional complaints, except as documented, No as per HPI, No abnormal gait, No abnormal hearing, No abnormal movements, No abnormal speech, No behavioral changes, No burning sensations, No confusion, No convulsions, No disequilibrium, No dizziness, No localized weakness, No frequent falls, No heada (more content not included)... Normal [facility] PSA,Total - Annual Screenon 03-28-2024 PSA,TOT SCREEN 4.65 ng/mL High 0.00-4.00 [facility] Comment on above: Result Comment: This test was performed using the TPSA assay method for the [employer] chemistry system. Values obtained with different assay methods cannot be used interchangably. When changing PSA assays in the course of monitoring a patient, additional sequential testing should be carried out to confirm baseline values. Performed By: #### L [id number] #### [facility] [address] [place], [address] Absolute lymphocyte countOrd ered By: Ethan Avendano on 11-16-2023 Lymphocytes Auto (Unsp spec) [#/Vol] 0.84 10*3/uL 0.83-4.51 [facility] Automated lymphocyte count a s percentage of total leukocytesOrdered By: Ethan Avendano on 11-16-2023 Lymphocytes/100 WBC Auto (Unsp spec) 22.5 % 19-41 [facility] Basophil percentageOrdered B y: Ethan Avendano on 11-16-2023 Basophils/100 WBC (Bld) 0.0 % 0-1 [facility] Bilirubin [Mass/Vol] 0.70 mg/dL 0.20-1.00 [facility] Comment on above: For patients on eltr ombopag therapy, use of Dimension [place] TBIL is not recommended. Chloride [Moles/Vol] 104 mmol/L 98-107 [facility] Cholesterol [Mass/Vol] 93 mg/dL <200 [facility] Comment on above: <200 mg/dL Desirable 200-240 mg/dL Borderline >240 mg/dL High Risk Eosinophils/100 WBC (Bld) 0.0 % 0-5 [facility] Glucose [Mass/Vol] 90 mg/dL 74-106 [facility] Hemoglobin (Bld) [Mass/Vol] 13.1 g/dL 13.0-16.5 [facility] Monocytes/100 WBC (Bld) 11.5 % 0-10 [facility] Neutrophils (Bld) [#/Vol] 2.5 10*3/uL 2.0-7.7 [facility] Neutrophils/100 WBC (Bld) 65.7 % 47-70 [facility] Potassium [Moles/Vol] 4.0 mmol/L 3.5-5.1 [facility] Protein [Mass/Vol] 6.8 g/dL 6.4-8.2 [facility] Sodium [Moles/Vol] 139 mmol/L 136-145 [facility] Triglyceride [Mass/Vol] 123 mg/dL <199 [facility] Comment on above: The drugs N-Acetylcy steine and Metamizole may falsely depress this assay.Serum Triglycerides Reference Interval Normal <150 mg/dL Borderline high 150 - 199 mg/dL High 200 - 499 mg/dL Very High > or = 500 mg/dL WBC (Bld) [#/Vol] 3.7 10*3/uL 4.4-11.0 [facility] Determination of erythrocyte mean corpuscular volume (MCV)Ordered By: Ethan Avendano on 11-16-2023 MCV (RBC) [Entitic vol] 92.2 fL 80-94 [facility] Erythrocyte distribution wid th ratioOrdered By: Ethan Avendano on 11-16-2023 Erythrocyte distribution width (RBC) [Ratio] 13.2 % 11.6-14.6 [facility] Erythrocyte distribution wid th standard deviationOrdered By: Ethan Avendano on 11-16-2023 Erythrocyte distribution width (RBC) [Entitic vol] 45.0 fL 35.1-43.9 [facility] Hematocrit Auto (Bld) [Volum e fraction]Ordered By: Ethan Avendano on 11-16-2023 Hematocrit (Bld) [Volume fraction] 40.3 % 40-54 [facility] Immature granulocytes/100 WB C Auto (Bld)Ordered By: Ethan Avendano on 11-16-2023 Immature granulocytes/100 WBC (Bld) 0.300 % 0.0-0.9 [facility] Comment on above: IG% - Immature Granu locytes (promyelocytes, myelocytes and metamyelocytes) > 1% indicates that a LEFT SHIFT is Present. Laboratory - Chemistry and C hemistry - challengeOrdered By: Ethan Avendano on 11-16-2023 Albumin/Globulin [Mass ratio] 1.1 {ratio} 0.9-2.4 [facility] ALP [Catalytic activity/Vol] 54 U/L 45-117 [facility] ALT [Catalytic activity/Vol] 26 U/L 16-61 [facility] Cholesterol in HDL [Mass/Vol] 31 mg/dL >40 [facility] Comment on above: The drugs N-Acetylcy steine and Metamizole may falsely depress this assay. Reference Range HDL <40 mg/dL Low HDL Cholesterol HDL >or= 60 mg/dL High HDL Cholesterol Cholesterol in LDL [Mass/Vol] 37 mg/dL 0-130 [facility] CO2 [Moles/Vol] 28.0 mmol/L 21.0-32.0 [facility] Globulin (S) [Mass/Vol] 3.2 g/dL 2.2-4.2 [facility] Urea nitrogen/Creatinine [Mass ratio] 19.2 mg/mg 10-20 [facility] Laboratory - Hematology and Cell countsOrdered By: Ethan Avendano on 11-16-2023 MCH (RBC) [Entitic mass] 30.0 pg 27.0-32.0 [facility] MCHC (RBC) [Mass/Vol] 32.5 g/dL 32-36 [facility] Nucleated RBC/100 WBC (Bld) [Ratio] 0 % 0-5 [facility] Platelet mean volume (Bld) [Entitic vol] 11.8 fL 6.2-12.0 [facility] Platelets (Bld) [#/Vol] 103 10*3/uL 150-450 [facility] No Panel InformationOrdered By: Ethan Avendano on 11-16-2023 Estimated GFR (MDRD) Amer 109 mL/min >60 [facility] Comment on above: GFR Calc Estimated GFR (MDRD) Non-Af Amer 90 mL/min >60 [facility] Comment on above: Non- GFR Calc VLDL Cholesterol 25 mg/dL 5-40 [facility] RBC Auto (Bld) [#/Vol]Ordere d By: Ethan Avendano on 11-16-2023 RBC (Bld) [#/Vol] 4.37 10*6/uL 4.6-6.2 [facility] Serum or plasma calcium john urement (mass/volume)Ordered By: Ethan Avendano on 11-16-2023 Calcium [Mass/Vol] 9.1 mg/dL 8.5-10.1 [facility] Serum or plasma creatinine m easurement (mass/volume)Ordered By: Ethan Avendano on 11-16-2023 Creatinine [Mass/Vol] 0.89 mg/dL 0.70-1.30 [facility] Comment on above: The validity of the calculated GFR & GFRAA in patients over 70 years has not been determined. Clinical correlation is essential. Serum or plasma urea nitroge n measurement (mass/volume)Ordered By: Ethan Avendano on 11-16-2023 Urea nitrogen [Mass/Vol] 17 mg/dL 7-18 [facility] Thin prep Papanicolaou smear with manual screeningOrdered By: Ethan Avendano on 11-16-2023 Thin prep Papanicolaou smear with manual screening 3.6 g/dL 3.2-5.0 [facility] Thin prep Papanicolaou smear with manual screening 26 U/L 15-37 [facility] Thin prep Papanicolaou smear with manual screening 7 5-15 [facility] CNTHERAPYon 10-06-2023 CNTHERAPY OT/PT/Speech Visit (OTNOCA) FRANCISCO KELLY ([id number]) 1950 M Date Time Provider Department 10/06/23 1:30 PM FLORENCE EUGENEMDconnectME Date Time Provider Department Center 10/06/2023 1:30 PM [id number], [facility] N Reason for Visit: OT Discharge [750] OT EVAL [748] Primary Visit Diagnosis:Parkinson' s disease, unspecified whether dyskinesia present, unspecified whether manifestations fluctuate [G20.A1] Other Visit Diagnoses:Abnormalit y of gait and mobility [R26.9] Abnormal coordination [R27.8] Irregular eye movements [H55.89] Allergies As of Date: 10/06/2023 Noted Allergy Reaction dust,mold grass [Other] 11/10/2005 Date Reviewed: 12/29/2022 Reviewed by: Latisha Estrada MD - Fully Assessed Prescriptions as of 05/22/2024 - melatonin 10 mg ODT melatonin 10 mg disintegrating tablet TAKE 1 TABLET AT AT BEDTIME - carbidopa-levodopa CR (SINEMET CR) 50-200 mg per tablet Take 1 tablet by mouth four times daily. - gabapentin (NEURONTIN) 400 mg capsule Take 400 mg by mouth three times daily. - clopidogrel (PLAVIX) 75 mg tablet Take 75 mg by mouth once daily. - metoprolol succinate ER (TOPROL XL) 25 mg 24 hr tablet Take 25 mg by mouth once daily. - celecoxib (CELEBREX) 200 mg capsule Take 200 mg by mouth twice daily. - rosuvastatin (CRESTOR) 40 mg tablet TAKE 1 TABLET BY MOUTH EVERY DAY with supper. - memantine (NAMENDA) 10 mg tablet Take 10 mg by mouth twice daily. - immune globulin, human,, IgG, (GAMMAGARD LIQUID) 10 % soln Gammagard liquid 10% 20 grams IV every 4 weeks. Patient should take acetaminophen 650 mg by mouth 30 minutes prior to infusions. Start infusion at 1 ml/kg/hr then, at 30 minute intervals, increase to 2 ml/kg/hr, 3 ml/kg/hr and 3.5 ml/kg/hr. Continue at 3.5 ml/kg/hr until infusion completed. 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 - folic acid 400 mcg tablet Take 400 mcg by mouth three times daily. - diphenhydrAMINE (BENADRYL ALLERGY) 25 mg tablet One to two tablets by mouth every 6 hours as needed for allergic reaction. - acetaminophen (TYLENOL) 325 mg tablet 2 tablets 30 minutes prior to IVIG infusions and every 4 hours as needed - 0.9 % SODIUM CHLORIDE (NACL 0.9%) 0.9% solution 500 to 1000 ml IV bolus as needed for hypotension associated with a reaction to IVIG - Aspirin 81 mg tab Take 1 tablet by mouth once daily. - CENTRUM SILVER TAB Take one(1) tablet daily. Letter Text Letter Text Normal [facility] No Panel InformationOrdered By: Blaine Lee on 03-23-2023 Prostate Specific Antigen Screen 4.24 ng/mL 0.00-4.00 [facility] Comment on above: This test was perfor med using the TPSA assay method for the[facility] chemistry system. Values obtained with differentassay methods cannot be used interchangably.When changing PSA assays in the course of monitoring apatient, additional sequential testing should be carriedout to confirm baseline values. Basophil percentageOrdered B y: Lory He on 02-01-2023 Bilirubin [Mass/Vol] 0.50 mg/dL 0.20-1.00 [facility] [place] Comment on above: For patients on eltr ombopag therapy, use of Dimension [place] TBIL is not recommended. Cholesterol [Mass/Vol] 82 mg/dL <200 [facility] Comment on above: <200 mg/dL Desirable 200-240 mg/dL Borderline >240 mg/dL High Risk Protein [Mass/Vol] 6.9 g/dL 6.4-8.2 [facility] Triglyceride [Mass/Vol] 93 mg/dL <199 [facility] Comment on above: The drugs N-Acetylcy steine and Metamizole may falsely depress this assay.Serum Triglycerides Reference Interval Normal <150 mg/dL Borderline high 150 - 199 mg/dL High 200 - 499 mg/dL Very High > or = 500 mg/dL Direct bilirubinOrdered By: Lory He on 02-01-2023 Bilirubin.direct [Mass/Vol] 0.12 mg/dL 0.00-0.30 [facility] Laboratory - Chemistry and C hemistry - challengeOrdered By: oLry He on 02-01-2023 ALP [Catalytic activity/Vol] 71 U/L 45-117 [facility] ALT [Catalytic activity/Vol] 15 U/L 16-61 [facility] Globulin (S) [Mass/Vol] 3.4 g/dL 2.2-4.2 [facility] Serum or plasma albumin john urement (mass/volume)Ordered By: Lory He on 02-01-2023 Albumin [Mass/Vol] 3.5 g/dL 3.2-5.0 [facility] Serum or plasma cholesterol in HDL measurement (mass/volume)Ordered By: Lory He on 02-01-2023 Cholesterol in HDL [Mass/Vol] 29 mg/dL >40 [facility] Comment on above: The drugs N-Acetylcy steine and Metamizole may falsely depress this assay. Reference Range HDL <40 mg/dL Low HDL Cholesterol HDL >or= 60 mg/dL High HDL Cholesterol Serum or plasma cholesterol in VLDL measurement (mass/volume)Ordered By: Lory He on 02-01-2023 Cholesterol in VLDL [Mass/Vol] 19 mg/dL 5-40 [facility] Serum or plasma low density lipoprotein (LDL) cholesterol measurement (mass/volume)Ordered By: Lory He on 02-01-2023 Cholesterol in LDL [Mass/Vol] 34 mg/dL 0-130 [facility] Thin prep Papanicolaou smear with manual screeningOrdered By: Lory He on 02-01-2023 Thin prep Papanicolaou smear with manual screening 30 U/L 15-37 [facility] CNOVon 12-29-2022 CNOV Office Visit (NRMDN) FRANCISCO KELLY ([id number]) 1950 M Date Time Provider Department 12/29/22 8:00 AM LATISHA ESTRADA During your visit today, we recorded the following information about you: Pulse Blood pressure 99/minute 121/64 Latisha Estrada MD 12/29/2022 9:06 AM Signed It was a pleasure to see you [...] or you can send a message through [employer]. You can also now schedule and select appointments through [employer]. MD Latisha Ta MD 12/29/2022 10:53 AM Signed [facility] - NEW PATIENT EVALUATION [...] last fall. torn rotator cuff. [employer]- spectates more than helping Difficulties turning [...] Exercise: Last PT Date: Last OT Date: Last ST Date: Exercises Regularly: Yes PD exercise classes, Mellisa, etc Review of Systems Review of Systems Constitutional Positive for Fa (more content not included)... Normal [facility] Absolute lymphocyte countOrd ered By: Dr. Avendano on 07-07-2022 Lymphocytes Auto (Unsp spec) [#/Vol] 0.77 10*3/uL 0.83-4.51 [facility] Basophil percentageOrdered B y: Dr. Avendano on 07-07-2022 Basophils/100 WBC (Bld) 0.0 % 0-1 [facility] Bilirubin [Mass/Vol] 0.50 mg/dL 0.20-1.00 [facility] [place] Comment on above: For patients on eltr ombopag therapy, use of Dimension [place] TBIL is not recommended. Chloride [Moles/Vol] 104 mmol/L 98-107 [facility] [place] Eosinophils/100 WBC (Bld) 0.0 % 0-5 [facility] Glucose [Mass/Vol] 114 mg/dL 74-106 [facility] Comment on above: Fasting Glucose resu lt from 100 to 125 mg/dL suggests IMPAIRED HOMEOSTASIS per A.D.A. criteria. Neutrophils (Bld) [#/Vol] 3.7 10*3/uL 2.0-7.7 [facility] Neutrophils/100 WBC (Bld) 74.9 % 47-70 [facility] Potassium [Moles/Vol] 4.3 mmol/L 3.5-5.1 [facility] Protein [Mass/Vol] 6.8 g/dL 6.4-8.2 [facility] Sodium [Moles/Vol] 136 mmol/L 136-145 [facility] WBC (Bld) [#/Vol] 4.9 10*3/uL 4.4-11.0 [facility] Blood erythrocytes count (nu mber/volume)Ordered By: Dr. Avendano on 07-07-2022 RBC (Bld) [#/Vol] 4.38 10*6/uL 4.6-6.2 [facility] Blood hemoglobin measurement (mass/volume)Ordered By: Dr. Avendano on 07-07-2022 Hemoglobin (Bld) [Mass/Vol] 13.8 g/dL 13.0-16.5 [facility] Blood lymphocytes/100 leukoc ytesOrdered By: Dr. Avendano on 07-07-2022 Lymphocytes/100 WBC (Bld) 15.6 % 19-41 [facility] Blood monocytes/100 leukocyt esOrdered By: Dr. Avendano on 07-07-2022 Monocytes/100 WBC (Bld) 9.1 % 0-10 [facility] Blood platelet mean volumeOr dered By: Dr. Avendano on 07-07-2022 Platelet mean volume (Bld) [Entitic vol] 12.0 fL 6.2-12.0 [facility] Determination of erythrocyte mean corpuscular volume (MCV)Ordered By: Dr. Avendano on 07-07-2022 MCV (RBC) [Entitic vol] 94.1 fL 80-94 [facility] Hematocrit Auto (Bld) [Volum e fraction]Ordered By: Dr. Avendano on 07-07-2022 Hematocrit (Bld) [Volume fraction] 41.2 % 40-54 [facility] Laboratory - Chemistry and C hemistry - challengeOrdered By: Dr. Avendano on 07-07-2022 ALP [Catalytic activity/Vol] 59 U/L 45-117 [facility] ALT [Catalytic activity/Vol] 39 U/L 16-61 [facility] CO2 [Moles/Vol] 29.0 mmol/L 21.0-32.0 [facility] Globulin (S) [Mass/Vol] 3.1 g/dL 2.2-4.2 [facility] Urea nitrogen/Creatinine [Mass ratio] 28.5 mg/mg 10-20 [facility] Laboratory - Hematology and Cell countsOrdered By: Dr. Avendano on 07-07-2022 Erythrocyte distribution width (RBC) [Entitic vol] 43.1 fL 35.1-43.9 [facility] Erythrocyte distribution width (RBC) [Ratio] 12.4 % 11.6-14.6 [facility] Immature granulocytes/100 WBC (Bld) 0.400 % 0.0-0.9 [facility] Comment on above: IG% - Immature Granu locytes (promyelocytes, myelocytes and metamyelocytes) > 1% indicates that a LEFT SHIFT is Present. MCH (RBC) [Entitic mass] 31.5 pg 27.0-32.0 [facility] Nucleated RBC/100 WBC (Bld) [Ratio] 0 % 0-5 [facility] MCHC Auto (RBC) [Mass/Vol]Or dered By: Dr. Avendano on 07-07-2022 MCHC (RBC) [Mass/Vol] 33.5 g/dL 32-36 [facility] No Panel InformationOrdered By: Dr. Avendano on 07-07-2022 Estimated GFR (MDRD) Amer 135 mL/min >60 [facility] Comment on above: GFR Calc Estimated GFR (MDRD) Non-Af Amer 112 mL/min >60 [facility] Comment on above: Non- GFR Calc Platelets bldOrdered By: Dr. Avendano on 07-07-2022 Platelets (Bld) [#/Vol] 112 10*3/uL 150-450 [facility] Serum or plasma albumin john urement (mass/volume)Ordered By: Dr. Avendano on 07-07-2022 Albumin [Mass/Vol] 3.7 g/dL 3.2-5.0 [facility] Serum or plasma albumin/glob ulin mass ratioOrdered By: Dr. Avendano on 07-07-2022 Albumin/Globulin [Mass ratio] 1.2 {ratio} 0.9-2.4 [facility] Serum or plasma calcium john urement (mass/volume)Ordered By: Dr. Avendano on 07-07-2022 Calcium [Mass/Vol] 9.2 mg/dL 8.5-10.1 [facility] Serum or plasma creatinine m easurement (mass/volume)Ordered By: Dr. Avendano on 07-07-2022 Creatinine [Mass/Vol] 0.74 mg/dL 0.70-1.30 [facility] Comment on above: The validity of the calculated GFR & GFRAA in patients over 70 years has not been determined. Clinical correlation is essential. Serum or plasma urea nitroge n measurement (mass/volume)Ordered By: Dr. Avendano on 07-07-2022 Urea nitrogen [Mass/Vol] 21 mg/dL 7-18 [facility] Thin prep Papanicolaou smear with manual screeningOrdered By: Dr. Avendano on 07-07-2022 Thin prep Papanicolaou smear with manual screening 26 U/L 15-37 [facility] Thin prep Papanicolaou smear with manual screening 3 5-15 [facility] Absolute immature granulocyt e counton 12-02-2021 Immature granulocytes (Bld) [#/Vol] 0 10*3/uL 0.0-0.1 [facility] Work Phone: Absolute lymphocyte counton 12-02-2021 Lymphocytes Auto (Unsp spec) [#/Vol] 0.87 10*3/uL 0.83-4.51 [facility] Work Phone: Lymphocytes Auto (Unsp spec) [#/Vol] 1.0 10*3/uL 0.7-3.1 [facility] Work Phone: Basophil percentageon 2021 Basophils/100 WBC (Bld) 0.2 % 0-1 [facility] Work Phone: Bilirubin [Mass/Vol] 0.70 mg/dL 0.20-1.00 [facility] [place] Work Phone: Comment on above: For patients on eltr ombopag therapy, use of Dimension [place] TBIL is not recommended. Chloride [Moles/Vol] 106 mmol/L 98-107 [facility] [place] Work Phone: Cholesterol [Mass/Vol] 80 mg/dL <200 [facility] Work Phone: Comment on above: <200 mg/dL Desirable 200-240 mg/dL Borderline >240 mg/dL High Risk Eosinophils/100 WBC (Bld) 0.0 % 0-5 [facility] Work Phone: Glucose [Mass/Vol] 94 mg/dL 74-106 [facility] Work Phone: [phone] Monocytes (Bld) [#/Vol] 0.4 10*3/uL 0.1-0.9 [facility] Work Phone: Neutrophils (Bld) [#/Vol] 4.2 10*3/uL 2.0-7.7 [facility] Work Phone: Neutrophils (Bld) [#/Vol] 4.4 10*3/uL 1.4-7.0 [facility] Work Phone: [phone] Neutrophils/100 WBC (Bld) 75.8 % 47-70 [facility] Work Phone: [phone] Potassium [Moles/Vol] 4.3 mmol/L 3.5-5.1 [facility] Work Phone: [phone] Protein [Mass/Vol] 6.8 g/dL 6.4-8.2 [facility] Work Phone: [phone] Sodium [Moles/Vol] 136 mmol/L 136-145 [facility] Work Phone: [phone] Triglyceride [Mass/Vol] 99 mg/dL <199 [facility] Work Phone: Comment on above: The drugs N-Acetylcy steine and Metamizole may falsely depress this assay.Serum Triglycerides Reference Interval Normal <150 mg/dL Borderline high 150 - 199 mg/dL High 200 - 499 mg/dL Very High > or = 500 mg/dL WBC (Bld) [#/Vol] 5.9 10*3/uL 3.4-10.8 [facility] Work Phone: [phone] Basophils/100 WBC Auto (Bld) on 12-02-2021 Basophils/100 WBC (Bld) 0 % Not Estab. [facility] Work Phone: [phone] Blood basophils count (numbe r/volume)on 12-02-2021 Basophils (Bld) [#/Vol] 0 10*3/uL 0.0-0.2 [facility] Work Phone: Blood eosinophils count (num nadiya/volume)on 12-02-2021 Eosinophils (Bld) [#/Vol] 0 10*3/uL 0.0-0.4 [facility] Work Phone: Blood hematocrit (volume fra ction)on 12-02-2021 Hematocrit (Bld) [Volume fraction] 41.1 % 37.5-51.0 [facility] Work Phone: Blood hemoglobin measurement (mass/volume)on 12-02-2021 Hemoglobin (Bld) [Mass/Vol] 13.6 g/dL 13.0-17.7 [facility] Work Phone: Blood immature cells/100 sherita kocyteson 12-02-2021 Immature cells/100 WBC (Bld) TNP [facility] Work Phone: Comment on above: Test not performed Blood immature granulocytes/ 100 leukocyteson 12-02-2021 Immature granulocytes/100 WBC (Bld) 0 % Not Estab. [facility] Work Phone: Blood lymphocytes/100 leukoc yteson 12-02-2021 Lymphocytes/100 WBC (Bld) 15.7 % 19-41 [facility] Work Phone: Blood monocytes/100 leukocyt eson 12-02-2021 Monocytes/100 WBC (Bld) 7.8 % 0-10 [facility] Work Phone: Blood platelet mean volumeon 12-02-2021 Platelet mean volume (Bld) [Entitic vol] 11.9 fL 6.2-12.0 [facility] Work Phone: CD3+CD8+ (T8 suppressor cell s) cells/100 cells (Bld)on 12-02-2021 CD3+CD8+ (T8 suppressor cells) cells (Bld) [#/Vol] 323 /uL 109-897 [facility] Work Phone: Count of whole blood cells p ositive for CD3 and CD4 antigens (number/volume)on 12-02-2021 CD3+CD4+ (T4 helper) cells (Bld) [#/Vol] 284 /uL [phone] [facility] Work Phone: Eosinophils/100 WBC Auto (Bl d)on 12-02-2021 Eosinophils/100 WBC (Bld) 0 % Not Estab. [facility] Work Phone: Erythrocyte distribution wid th ratioon 12-02-2021 Erythrocyte distribution width (RBC) [Ratio] 13.0 % 11.6-15.4 [facility] Work Phone: Interpretation of morphologi c examination of blood (narrative result)on 12-02-2021 Morphology Fritz (Bld) [Interp] TNP [facility] Work Phone: Comment on above: Test not performed Laboratory - Chemistry and C hemistry - challengeon 12-02-2021 ALP [Catalytic activity/Vol] 65 U/L 45-117 [facility] Work Phone: ALT [Catalytic activity/Vol] 15 U/L 16-61 [facility] Work Phone: CO2 [Moles/Vol] 26.0 mmol/L 21.0-32.0 [facility] Work Phone: Globulin (S) [Mass/Vol] 3.1 g/dL 2.2-4.2 [facility] Work Phone: Urea nitrogen/Creatinine [Mass ratio] 26.2 mg/mg 10-20 [facility] Work Phone: [phone] Laboratory - Hematology and Cell countson 12-02-2021 Erythrocyte distribution width (RBC) [Entitic vol] 43.1 fL 35.1-43.9 [facility] Work Phone: Erythrocyte distribution width (RBC) [Ratio] 12.8 % 11.6-14.6 [facility] Work Phone: Immature granulocytes/100 WBC (Bld) 0.500 % 0.0-0.9 [facility] Work Phone: Comment on above: IG% - Immature Granu locytes (promyelocytes, myelocytes and metamyelocytes) > 1% indicates that a LEFT SHIFT is Present. Nucleated RBC/100 WBC (Bld) [Ratio] 0 % 0-5 [facility] Work Phone: Lymphocytes/100 WBC Auto (Bl d)on 12-02-2021 Lymphocytes/100 WBC (Bld) 18 % Not Estab. [facility] Work Phone: MCHC Auto (RBC) [Mass/Vol]on 12-02-2021 MCHC (RBC) [Mass/Vol] 33.1 g/dL 31.5-35.7 [facility] Work Phone: Neutrophils Auto (Bld) [#/Vo l]on 12-02-2021 Neutrophils/100 WBC (Bld) 75 % Not Estab. [facility] Work Phone: No Panel Informationon 12-02 Estimated GFR (MDRD) Amer 116 mL/min >60 [facility] Work Phone: Comment on above: GFR Calc Estimated GFR (MDRD) Non-Af Amer 96 mL/min >60 [facility] Work Phone: Comment on above: Non- GFR Calc Prostate Specific Antigen Total 3.21 ng/mL 0.0-4.0 [facility] Work Phone: Comment on above: This test was perfor med using the TPSA assay method for the[employer] chemistry system. Values obtained with differentassay methods cannot be used interchangably.When changing PSA assays in the course of monitoring apatient, additional sequential testing should be carriedout to confirm baseline values. Percentage of whole blood ce lls positive for CD3 and CD4 antigenson 12-02-2021 CD3+CD4+ (T4 helper) cells/100 cells (Bld) 28.4 % 30.8-58.5 [facility] Work Phone: Percentage of whole blood ce lls positive for CD3 and CD8 antigenson 12-02-2021 CD3+CD8+ (T8 suppressor cells) cells/100 cells (Bld) 32.3 % 12.0-35.5 [facility] Work Phone: Platelets bldon 12-02-2021 Platelets (Bld) [#/Vol] 103 10*3/uL 150-450 [facility] Work Phone: RBC Auto (Bld) [#/Vol]on RBC (Bld) [#/Vol] 4.41 10*6/uL 4.14-5.80 [facility] Work Phone: Ratio of whole blood cells p ositive for CD3 and CD4 antigens to cells positive for CDon 12-02-2021 CD3+CD4+ (T4 helper) cells/CD3+CD8+ (T8 suppressor cells) cells (Bld) [# ratio] 0.88 % 0.92-3.72 [facility] Work Phone: Serum or plasma IgA measurem ent (mass/volume)on 12-02-2021 IgA [Mass/Vol] mg/dL 61-437 [facility] Work Phone: Comment on above: Result confirmed on concentration. Serum or plasma IgG measurem ent (mass/volume)on 12-02-2021 IgG [Mass/Vol] 723 mg/dL [phone] [facility] Work Phone: Serum or plasma IgM measurem ent (mass/volume)on 12-02-2021 IgM [Mass/Vol] mg/dL 20-172 [facility] Work Phone: Comment on above: Result confirmed on concentration.Performed at: [facility] [id number] Director: Rm Tyson PhD, Phone: [phone] Serum or plasma albumin john urement (mass/volume)on 12-02-2021 Albumin [Mass/Vol] 3.7 g/dL 3.2-5.0 [facility] Work Phone: Serum or plasma albumin/glob ulin mass ratioon 12-02-2021 Albumin/Globulin [Mass ratio] 1.2 {ratio} 0.9-2.4 [facility] Work Phone: Serum or plasma calcium john urement (mass/volume)on 12-02-2021 Calcium [Mass/Vol] 8.8 mg/dL 8.5-10.1 [facility] Work Phone: Serum or plasma cholesterol in HDL measurement (mass/volume)on 12-02-2021 Cholesterol in HDL [Mass/Vol] 27 mg/dL >40 [facility] Work Phone: Comment on above: The drugs N-Acetylcy steine and Metamizole may falsely depress this assay. Reference Range HDL <40 mg/dL Low HDL Cholesterol HDL >or= 60 mg/dL High HDL Cholesterol Serum or plasma cholesterol in VLDL measurement (mass/volume)on 12-02-2021 Cholesterol in VLDL [Mass/Vol] 20 mg/dL 5-40 [facility] Work Phone: Serum or plasma creatinine m easurement (mass/volume)on 12-02-2021 Creatinine [Mass/Vol] 0.84 mg/dL 0.70-1.30 [facility] Work Phone: Comment on above: The validity of the calculated GFR & GFRAA in patients over 70 years has not been determined. Clinical correlation is essential. Serum or plasma low density lipoprotein (LDL) cholesterol measurement (mass/volume)on 12-02-2021 Cholesterol in LDL [Mass/Vol] 33 mg/dL 0-130 [facility] Work Phone: Serum or plasma urea nitroge n measurement (mass/volume)on 12-02-2021 Urea nitrogen [Mass/Vol] 22 mg/dL 7-18 [facility] Work Phone: Thin prep Papanicolaou smear with manual screeningon 12-02-2021 Thin prep Papanicolaou smear with manual screening 34 U/L 15-37 [facility] Work Phone: Thin prep Papanicolaou smear with manual screening 4 5-15 [facility] Work Phone: Thin prep Papanicolaou smear with manual screening 93 fL 79-97 [facility] Work Phone: Thin prep Papanicolaou smear with manual screening 30.8 pg 26.6-33.0 [facility] Work Phone: Thin prep Papanicolaou smear with manual screening 7 % Not Estab. [facility] Work Phone: NM BRAIN DATSCANon 9 NM BRAIN DATSCAN ORIGINAL Dopamine transporter (Didi) SPECT/CT imaging of the brain Clinical statement: TREMOR TECHNIQUE: Thyroid blocking agent of 130 mg iOSAT was orally administered 1 hour before the intravenous administration of 5.4 mCi of IV-123 labeled DaTscan. 3 hours later, a 30 minutes SPECT/CT scan of the brain was acquired. Data was reconstructed using iterative reconstruction and displayed in axial planes. FINDINGS: Abnormal dot shaped striatal activity is seen bilaterally. There is decreased activity in the bilateral putamen. Low-dose CT images show no apparent distortion of the underlying anatomy. There is complete opacification of the LEFT axillary sinus. Multiple ethmoid air cells are also opacified. 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 Interpreted By: Dean Franco DO Preliminary Report By: Dean Franco DO Electronically Signed By: Dean Franco DO Dictated Date: 08/08/2019 8:46:55 AM Prelim Date: 08/08/2019 8:46:55 AM Sign Date: 08/08/2019 8:56:11 AM Ordering Provider:[facility] ([place]) Vital Signs Date Time Vital Sign Value Performing Clinician Randal varela 03-05-2025 11:26-0400 Body height 170.[address] Ethan Avendano MD Work Phone: [facility] 03-05-2025 11:26-0400 Body mass index (BMI) [Ratio] 22.7 kg/m2 Dr. Ethan Avendano MD Work Phone: [facility] 03-05-2025 11:26-0400 Body temperature 96.3 [degF] Dr. Ethan Avendano MD Work Phone: [facility] 03-05-2025 11:26-0400 Body weight 65.[address] Ethan Avendano MD Work Phone: [facility] 03-05-2025 11:26-0400 Diastolic blood pressure 62 mm[Hg] Dr. Ethan Avendano MD Work Phone: 4(818)781-953295 [place] [address] 03-05-2025 11:26-0400 Heart rate 97 /min Dr. Ethan Avendano MD Work Phone: 1(091)306-034195 [place] [address] 03-05-2025 11:26-0400 Respiratory rate 16 /min Dr. Ethan Avendano MD Work Phone: 1(107)615-659329 [address] 03-05-2025 11:26-0400 SaO2% (BldA) [Mass fraction] 97 % Dr. Ethan Avendano MD Work Phone: 0(400)539-282595 [place] [address] 03-05-2025 11:26-0400 Systolic blood pressure 118 mm[Hg] Dr. Ethan Avendano MD Work Phone: 5(557)053-512595 [place] [address] 02-05-2025 09:47-0400 Body height 170.[address] Ethan Avendano MD Work Phone: 9(121)696-237229 [address] 02-05-2025 09:47-0400 Body mass index (BMI) [Ratio] 24.1 kg/m2 Dr. Ethan Avendano MD Work Phone: 8(423)202-447895 [place] [address] 02-05-2025 09:47-0400 Body temperature 97.9 [degF] Dr. Ethan Avendano MD Work Phone: [facility] 02-05-2025 09:47-0400 Body weight 69.[address] Ethan Avendano MD Work Phone: [facility] 02-05-2025 09:47-0400 Diastolic blood pressure 62 mm[Hg] Dr. Ethan Avendano MD Work Phone: [facility] 02-05-2025 09:47-0400 Heart rate 86 /min Dr. Ethan Avendano MD Work Phone: [facility] 02-05-2025 09:47-0400 Respiratory rate 16 /min Dr. Ethan Avendano MD Work Phone: [facility] 02-05-2025 09:47-0400 SaO2% (BldA) [Mass fraction] 98 % Dr. Ethan Avendano MD Work Phone: 6(031)487-099229 [address] 02-05-2025 09:47-0400 Systolic blood pressure 114 mm[Hg] Dr. Ethan Avendano MD Work Phone: 0(644)135-320295 [place] [address] 01-02-2025 10:58-0400 Body height 170.[address] Ethan Avendano MD Work Phone: 5(817)072-963084 [place] [address] 01-02-2025 10:58-0400 Body mass index (BMI) [Ratio] 23.8 kg/m2 Dr. Ethan Avendano MD Work Phone: 5(040)508-542784 [place] [address] 01-02-2025 10:58-0400 Body temperature 97.2 [degF] Dr. Ethan Avendano MD Work Phone: 9(985)874-297829 [address] 01-02-2025 10:58-0400 Body weight 68.[address] Ethan Avendano MD Work Phone: 9(548)916-803484 [place] [address] 01-02-2025 10:58-0400 Diastolic blood pressure 76 mm[Hg] Dr. Ethan Avendano MD Work Phone: 8(825)124-933529 [address] 01-02-2025 10:58-0400 Heart rate 82 /min Dr. Ethan Avendano MD Work Phone: 3(776)166-393495 [place] [address] 01-02-2025 10:58-0400 Respiratory rate 16 /min Dr. Ethan Avendano MD Work Phone: 4(813)301-886029 [address] 01-02-2025 10:58-0400 SaO2% (BldA) [Mass fraction] 100 % Dr. Ethan Avendano MD Work Phone: 7(902)825-043795 [place] [address] 01-02-2025 10:58-0400 Systolic blood pressure 116 mm[Hg] Dr. Ethan Avendano MD Work Phone: 8(069)585-696984 [place] [address] 12-05-2024 11:09-0400 Body height 170.[address] Ethan Avendano MD Work Phone: 0(755)834-345084 [place] [address] 12-05-2024 11:09-0400 Body temperature 96.3 [degF] Dr. Ethan Avendano MD Work Phone: 3(371)217-559984 [place] [address] 12-05-2024 11:09-0400 Diastolic blood pressure 52 mm[Hg] Dr. Ethan Avendano MD Work Phone: 7(202)914-695084 [place] [address] 12-05-2024 11:09-0400 Heart rate 83 /min Dr. Ethan Avendano MD Work Phone: 5(881)896-561884 [place] [address] 12-05-2024 11:09-0400 Respiratory rate 16 /min Dr. Ethan Avendano MD Work Phone: 8(383)544-848484 [place] [address] 12-05-2024 11:09-0400 SaO2% (BldA) [Mass fraction] 100 % Dr. Ethan Avendano MD Work Phone: 5(934)771-589784 [place] [address] 12-05-2024 11:09-0400 Systolic blood pressure 107 mm[Hg] Dr. Ethan Avendano MD Work Phone: 3(200)364-170584 [place] [address] 11-28-2024 10:50-0400 Body mass index (BMI) [Ratio] 23.8 kg/m2 Dr. Ethan Avendano MD Work Phone: 2(117)449-903184 [place] [address] 11-28-2024 10:50-0400 Body weight 68.[address] Ethan Avendano MD Work Phone: 7(326)710-218084 [place] [address] 11-28-2024 10:50-0400 Diastolic blood pressure 62 mm[Hg] Dr. Ethan Avendano MD Work Phone: 4(058)103-219484 [place] [address] 11-28-2024 10:50-0400 Heart rate 78 /min Dr. Ethan Avendano MD Work Phone: 6(556)631-647184 [place] [address] 11-28-2024 10:50-0400 Respiratory rate 16 /min Dr. Ethan Avendano MD Work Phone: 3(601)987-446584 [place] [address] 11-28-2024 10:50-0400 Systolic blood pressure 107 mm[Hg] Dr. Ethan Avendano MD Work Phone: 2(891)620-909295 [place] [address] 11-07-2024 11:02-0500 Body height 170.[address] Ethan Avendano MD Work Phone: 1(220)325-505195 [place] [address] 11-07-2024 11:02-0500 Body mass index (BMI) [Ratio] 22.7 kg/m2 Dr. Ethan Avendano MD Work Phone: 9(109)362-004895 [place] [address] 11-07-2024 11:02-0500 Body temperature 97 [degF] Dr. Ethan Avendano MD Work Phone: 5(517)574-421484 [place] [address] 11-07-2024 11:02-0500 Body weight 65.[address] Ethan Avendano MD Work Phone: 5(784)029-792329 [address] 11-07-2024 11:02-0500 Diastolic blood pressure 58 mm[Hg] Dr. Ethan Avendano MD Work Phone: 0(115)256-808229 [address] 11-07-2024 11:02-0500 Heart rate 82 /min Dr. Ethan Avendano MD Work Phone: 1(009)702-807184 [place] [address] 11-07-2024 11:02-0500 Respiratory rate 16 /min Dr. Ethan Avendano MD Work Phone: 9(737)700-963529 [address] 11-07-2024 11:02-0500 SaO2% (BldA) [Mass fraction] 99 % Dr. Ethan Avendano MD Work Phone: 9(081)718-052595 [place] [address] 11-07-2024 11:02-0500 Systolic blood pressure 121 mm[Hg] Dr. Ethan Avendano MD Work Phone: 1(947)928-178129 [address] 10-10-2024 09:52-0500 Body mass index (BMI) [Ratio] 24.7 kg/m2 Dr. Ethan Avendano MD Work Phone: 0(594)925-219529 [address] 10-10-2024 09:52-0500 Body temperature 97.5 [degF] Dr. Ethan Avendano MD Work Phone: 5(586)744-704395 [place] [address] 10-10-2024 09:52-0500 Body weight 71.[address] Ethan Avendano MD Work Phone: 2(115)355-650495 [place] [address] 10-10-2024 09:52-0500 Diastolic blood pressure 58 mm[Hg] Dr. Ethan Avendano MD Work Phone: 3(804)942-131595 [place] [address] 10-10-2024 09:52-0500 Heart rate 65 /min Dr. Ethan Avendano MD Work Phone: 6(763)078-805484 [place] [address] 10-10-2024 09:52-0500 Respiratory rate 16 /min Dr. Ethan Avendano MD Work Phone: 3(456)913-713284 [place] [address] 10-10-2024 09:52-0500 SaO2% (BldA) [Mass fraction] 99 % Dr. Ethan Avendano MD Work Phone: 9(561)954-312984 [place] [address] 10-10-2024 09:52-0500 Systolic blood pressure 127 mm[Hg] Dr. Ethan Avendano MD Work Phone: 9(841)753-174484 [place] [address] 09-05-2024 12:02-0500 Body mass index (BMI) [Ratio] 24.3 kg/m2 Dr. Ethan Avendano MD Work Phone: 5(819)989-413184 [place] [address] 09-05-2024 12:02-0500 Body temperature 97.7 [degF] Dr. Ethan Avendano MD Work Phone: 0(763)123-490984 [place] [address] 09-05-2024 12:02-0500 Body weight 70.[address] Ethan Avendano MD Work Phone: 7(782)997-996484 [place] [address] 09-05-2024 12:02-0500 Diastolic blood pressure 53 mm[Hg] Dr. Ethan Avendano MD Work Phone: 9(983)924-576584 [place] [address] 09-05-2024 12:02-0500 Heart rate 62 /min Dr. Ethan Avendano MD Work Phone: 3(733)295-393484 [place] [address] 09-05-2024 12:02-0500 Respiratory rate 16 /min Dr. Ethan Avendano MD Work Phone: 5(913)149-517184 [place] [address] 09-05-2024 12:02-0500 SaO2% (BldA) [Mass fraction] 100 % Dr. Ethan Avendano MD Work Phone: 7(274)917-929995 [place] [address] 09-05-2024 12:02-0500 Systolic blood pressure 136 mm[Hg] Dr. Ethan Avendano MD Work Phone: 4(998)096-833784 [place] [address] 08-23-2024 09:10-0500 Body temperature 98 [degF] Dr. Ethan Avendano MD Work Phone: 9(844)554-215484 [place] [address] 08-23-2024 09:10-0500 Diastolic blood pressure 64 mm[Hg] Dr. Ethan Avendano MD Work Phone: 2(855)210-258884 [place] [address] 08-23-2024 09:10-0500 Heart rate 74 /min Dr. Ethan Avendano MD Work Phone: 6(435)552-626884 [place] [address] 08-23-2024 09:10-0500 Respiratory rate 16 /min Dr. Ethan Avendano MD Work Phone: 7(053)639-930484 [place] [address] 08-23-2024 09:10-0500 SaO2% (BldA) [Mass fraction] 97 % Dr. Ethan Avendano MD Work Phone: 5(853)325-562884 [place] [address] 08-23-2024 09:10-0500 Systolic blood pressure 106 mm[Hg] Dr. Ethan Avendano MD Work Phone: 1(382)057-299884 [place] [address] 08-23-2024 07:29-0500 Body mass index (BMI) [Ratio] 24.3 kg/m2 Dr. Ethan Avendano MD Work Phone: 0(659)677-265784 [place] [address] 08-23-2024 07:29-0500 Body weight 70.[address] Ethan Avendano MD Work Phone: 7(925)078-419784 [place] [address] 08-08-2024 11:47-0500 Body mass index (BMI) [Ratio] 24.4 kg/m2 Dr. Ethan Avendano MD Work Phone: 9(047)786-006784 [place] [address] 08-08-2024 11:47-0500 Body temperature 96.5 [degF] Dr. Ethan Avendano MD Work Phone: 3(531)619-542684 [place] [address] 08-08-2024 11:47-0500 Body weight 70.[address] Ethan Avendano MD Work Phone: 5(566)817-038395 [place] [address] 08-08-2024 11:47-0500 Diastolic blood pressure 56 mm[Hg] Dr. Ethan Avendano MD Work Phone: 9(404)609-243595 [place] [address] 08-08-2024 11:47-0500 Heart rate 62 /min Dr. Ethan Avendano MD Work Phone: 8(892)077-903784 [place] [address] 08-08-2024 11:47-0500 Respiratory rate 16 /min Dr. Ethan Avendano MD Work Phone: 3(014)225-568484 [place] [address] 08-08-2024 11:47-0500 SaO2% (BldA) [Mass fraction] 99 % Dr. Ethan Avendano MD Work Phone: 1(564)435-037784 [place] [address] 08-08-2024 11:47-0500 Systolic blood pressure 132 mm[Hg] Dr. Ethan Avendano MD Work Phone: 3(396)230-130384 [place] [address] 07-11-2024 11:11-0500 Body mass index (BMI) [Ratio] 24.9 kg/m2 Dr. Ethan Avendano MD Work Phone: 5(419)853-626384 [place] [address] 07-11-2024 11:11-0500 Body temperature 97 [degF] Dr. Ethan Avendano MD Work Phone: 1(151)558-795284 [place] [address] 07-11-2024 11:11-0500 Body weight 72.[address] Ethan Avendano MD Work Phone: 8(413)164-691284 [place] [address] 07-11-2024 11:11-0500 Diastolic blood pressure 47 mm[Hg] Dr. Ethan Avendano MD Work Phone: 9(318)547-390084 [place] [address] 07-11-2024 11:11-0500 Heart rate 59 /min Dr. Ethan Avendano MD Work Phone: 2(865)113-077184 [place] [address] 07-11-2024 11:11-0500 Respiratory rate 16 /min Dr. Ethan Avendano MD Work Phone: 2(306)806-703029 [address] 07-11-2024 11:11-0500 SaO2% (BldA) [Mass fraction] 99 % Dr. Ethan Avendano MD Work Phone: [facility] 07-11-2024 11:11-0500 Systolic blood pressure 130 mm[Hg] Dr. Ethan Avendano MD Work Phone: [facility] 01-04-2024 10:36-0400 Body height 170.[address] Ethan Avendano Work Phone: [facility] 01-04-2024 10:36-0400 Body temperature 97.8 [degF] Dr. Ethan Avendano Work Phone: [facility] 01-04-2024 10:36-0400 Diastolic blood pressure 50 mm[Hg] Dr. Ethan Avendano Work Phone: [facility] 01-04-2024 10:36-0400 Heart rate 61 /min Dr. Ethan Avendano Work Phone: [facility] 01-04-2024 10:36-0400 Respiratory rate 16 /min Dr. Ethan Avendano Work Phone: [facility] 01-04-2024 10:36-0400 SaO2% (BldA) [Mass fraction] 98 % Dr. Ethan Avendano Work Phone: [facility] 01-04-2024 10:36-0400 Systolic blood pressure 105 mm[Hg] Dr. Ethan Avendano Work Phone: [facility] 12-07-2023 10:46-0400 Body height 170.[address] Ethan Avendano Work Phone: [facility] 12-07-2023 10:46-0400 Body temperature 96.8 [degF] Dr. Ethan Avendano Work Phone: [facility] 12-07-2023 10:46-0400 Diastolic blood pressure 61 mm[Hg] Dr. Ethan Avendano Work Phone: [facility] 12-07-2023 10:46-0400 Heart rate 62 /min Dr. Ethan Avendano Work Phone: [facility] 12-07-2023 10:46-0400 Respiratory rate 16 /min Dr. Ethan Avendano Work Phone: [facility] 12-07-2023 10:46-0400 SaO2% (BldA) [Mass fraction] 100 % Dr. Ethan Avendano Work Phone: [facility] 12-07-2023 10:46-0400 Systolic blood pressure 116 mm[Hg] Dr. Ethan Avendano Work Phone: [facility] 11-09-2023 10:29-0500 Body height 170.[address] Ethan Avendano Work Phone: [facility] 11-09-2023 10:29-0500 Body temperature 97.9 [degF] Dr. Ethan Avendano Work Phone: [facility] 11-09-2023 10:29-0500 Diastolic blood pressure 62 mm[Hg] Dr. Ethan Avendano Work Phone: [facility] 11-09-2023 10:29-0500 Heart rate 73 /min Dr. Ethan Avendano Work Phone: [facility] 11-09-2023 10:29-0500 Respiratory rate 16 /min Dr. Ethan Avendano Work Phone: [facility] 11-09-2023 10:29-0500 Systolic blood pressure 117 mm[Hg] Dr. Ehtan Avendano Work Phone: [facility] 10-10-2023 10:23-0500 Body mass index (BMI) [Ratio] 24.9 kg/m2 Dr. Ethan Avendano Work Phone: [facility] 10-10-2023 10:23-0500 Body weight 72.[address] Ethan Avendano Work Phone: [facility] 10-10-2023 10:23-0500 Diastolic blood pressure 73 mm[Hg] Dr. Ethan Avendano Work Phone: [facility] 10-10-2023 10:23-0500 Heart rate 63 /min Dr. Ethan Avendano Work Phone: [facility] 10-10-2023 10:23-0500 Respiratory rate 18 /min Dr. Ethan Avendano Work Phone: [facility] 10-10-2023 10:23-0500 SaO2% (BldA) [Mass fraction] 99 % Dr. Ethan Avendano Work Phone: [facility] 10-10-2023 10:23-0500 Systolic blood pressure 128 mm[Hg] Dr. Ethan Avendano Work Phone: [facility] 10-05-2023 10:05-0500 Body height 170.18 cm [facility] 10-05-2023 10:05-0500 Body temperature 98.1 [degF] [facility] 10-05-2023 10:05-0500 Diastolic blood pressure 45 mm[Hg] [facility] 10-05-2023 10:05-0500 Heart rate 63 /min [facility] 10-05-2023 10:05-0500 Respiratory rate 16 /min [facility] 10-05-2023 10:05-0500 SaO2% (BldA) [Mass fraction] 100 % [facility] 10-05-2023 10:05-0500 Systolic blood pressure 105 mm[Hg] [facility] 09-07-2023 10:25-0500 Body height 170.18 cm [facility] 09-07-2023 10:25-0500 Body mass index (BMI) [Ratio] 24.3 kg/m2 [facility] 09-07-2023 10:25-0500 Body temperature 97 [degF] [facility] 09-07-2023 10:25-0500 Body weight 70.3 kg [facility] 09-07-2023 10:25-0500 Diastolic blood pressure 51 mm[Hg] [facility] 09-07-2023 10:25-0500 Heart rate 64 /min [facility] 09-07-2023 10:25-0500 Respiratory rate 16 /min [facility] 09-07-2023 10:25-0500 SaO2% (BldA) [Mass fraction] 97 % [facility] 09-07-2023 10:25-0500 Systolic blood pressure 114 mm[Hg] [facility] 08-10-2023 11:01-0500 Body mass index (BMI) [Ratio] 24.3 kg/m2 [facility] 08-10-2023 11:010500 Body weight 70.3 kg [facility] 07-06-2023 10:120400 Body height 170.[address] Ethan Avendano Work Phone: [facility] 07-06-2023 10:12-0400 Body mass index (BMI) [Ratio] 24.1 kg/m2 Dr. Ethan Avendano Work Phone: [facility] 07-06-2023 10:12-0400 Body temperature 97.6 [degF] Dr. Ethan Avendano Work Phone: 7(785)657-905195 [place] [address] 07-06-2023 10:12-0400 Body weight 69.[address] Ethan Avendano Work Phone: [facility] 07-06-2023 10:12-0400 Diastolic blood pressure 58 mm[Hg] Dr. Ethan Avendano Work Phone: [facility] 07-06-2023 10:12-0400 Heart rate 75 /min Dr. Ethan Avendano Work Phone: [facility] 07-06-2023 10:12-0400 Respiratory rate 16 /min Dr. Ethan Avendano Work Phone: [facility] 07-06-2023 10:12-0400 SaO2% (BldA) [Mass fraction] 98 % Dr. Ethan Avendano Work Phone: [facility] 07-06-2023 10:12-0400 Systolic blood pressure 130 mm[Hg] Dr. Ethan Avendano Work Phone: [facility] 06-08-2023 11:06-0400 Body temperature 97.1 [degF] Dr. Ethan Avendano Work Phone: [facility] 06-08-2023 11:06-0400 Diastolic blood pressure 56 mm[Hg] Dr. Ethan Avendano Work Phone: [facility] 06-08-2023 11:06-0400 Heart rate 65 /min Dr. Ethan Avendano Work Phone: [facility] 06-08-2023 11:06-0400 Respiratory rate 16 /min Dr. Ethan Avendano Work Phone: [facility] 06-08-2023 11:06-0400 SaO2% (BldA) [Mass fraction] 100 % Dr. Ethan Avendano Work Phone: [facility] 06-08-2023 11:06-0400 Systolic blood pressure 125 mm[Hg] Dr. Ethan Avendano Work Phone: [facility] 05-10-2023 11:11-0400 Body height 170.[address] Ethan Avendano Work Phone: [facility] 05-10-2023 11:11-0400 Body mass index (BMI) [Ratio] 24.3 kg/m2 Dr. Ethan Avendano Work Phone: [facility] 05-10-2023 11:11-0400 Body temperature 98.3 [degF] Dr. Ethan Avendano Work Phone: [facility] 05-10-2023 11:11-0400 Body weight 70.[address] Ethan Avendano Work Phone: [facility] 05-10-2023 11:11-0400 Diastolic blood pressure 51 mm[Hg] Dr. Ethan Avendano Work Phone: [facility] 05-10-2023 11:11-0400 Heart rate 73 /min Dr. Ethan Avendano Work Phone: [facility] 05-10-2023 11:11-0400 Respiratory rate 16 /min Dr. Ethan Avendano Work Phone: [facility] 05-10-2023 11:11-0400 SaO2% (BldA) [Mass fraction] 97 % Dr. Ethan Avendano Work Phone: [facility] 05-10-2023 11:11-0400 Systolic blood pressure 117 mm[Hg] Dr. Ethan Avendano Work Phone: [facility] 04-05-2023 11:03-0400 Body height 170.[address] Ethan Avendano Work Phone: [facility] 04-05-2023 11:03-0400 Body temperature 97.2 [degF] Dr. Ethan Avendano Work Phone: [facility] 04-05-2023 11:03-0400 Diastolic blood pressure 62 mm[Hg] Dr. Ethan Avendano Work Phone: 7(872)980-139795 [place] [address] 04-05-2023 11:03-0400 Heart rate 63 /min Dr. Ethan Avendano Work Phone: 3(314)336-950095 [place] [address] 04-05-2023 11:03-0400 Respiratory rate 16 /min Dr. Ethan Avendano Work Phone: [facility] 04-05-2023 11:03-0400 SaO2% (BldA) [Mass fraction] 98 % Dr. Ethan Avendano Work Phone: [facility] 04-05-2023 11:03-0400 Systolic blood pressure 122 mm[Hg] Dr. Ethan Avendano Work Phone: [facility] 03-08-2023 12:58-0400 Body height 170.[address] Ethan Avendano Work Phone: [facility] 03-08-2023 12:58-0400 Body mass index (BMI) [Ratio] 23.9 kg/m2 Dr. Ethan Avendano Work Phone: [facility] 03-08-2023 12:58-0400 Body temperature 98.6 [degF] Dr. Ethan Avendano Work Phone: [facility] 03-08-2023 12:58-0400 Body weight 69.[address] Ethan Avendano Work Phone: [facility] 03-08-2023 12:58-0400 Diastolic blood pressure 53 mm[Hg] Dr. Ethan Avendano Work Phone: [facility] 03-08-2023 12:58-0400 Heart rate 71 /min Dr. Ethan Avendano Work Phone: [facility] 03-08-2023 12:58-0400 Respiratory rate 16 /min Dr. tEhan Avendano Work Phone: [facility] 03-08-2023 12:58-0400 SaO2% (BldA) [Mass fraction] 97 % Dr. Ethan Avendano Work Phone: [facility] 03-08-2023 12:58-0400 Systolic blood pressure 119 mm[Hg] Dr. Ethan Avendano Work Phone: [facility] 02-03-2023 11:03-0400 Body height 170.[address] Ethan Avendano Work Phone: [facility] 02-03-2023 11:03-0400 Body temperature 97 [degF] Dr. Ethan Avendano Work Phone: [facility] 02-03-2023 11:03-0400 Diastolic blood pressure 53 mm[Hg] Dr. Ethan Avendano Work Phone: [facility] 02-03-2023 11:03-0400 Heart rate 66 /min Dr. Ethan Avendano Work Phone: [facility] 02-03-2023 11:03-0400 Respiratory rate 16 /min Dr. Ethan Avendano Work Phone: [facility] 02-03-2023 11:03-0400 SaO2% (BldA) [Mass fraction] 100 % Dr. Ethan Avendano Work Phone: [facility] 02-03-2023 11:03-0400 Systolic blood pressure 117 mm[Hg] Dr. Ethan Avendano Work Phone: [facility] 02-01-2023 08:32-0400 Body mass index (BMI) [Ratio] 23.8 kg/m2 Dr. Ethan Avendano Work Phone: [facility] 02-01-2023 08:32-0400 Body weight 68.[address] Ethan Avendano Work Phone: [facility] 02-01-2023 08:32-0400 Diastolic blood pressure 69 mm[Hg] Dr. Ethan Avendano Work Phone: [facility] 02-01-2023 08:32-0400 Heart rate 70 /min Dr. Ethan Avendano Work Phone: [facility] 02-01-2023 08:32-0400 Respiratory rate 18 /min Dr. Ethan Avendano Work Phone: [facility] 02-01-2023 08:32-0400 SaO2% (BldA) [Mass fraction] 99 % Dr. Ethan Avendano Work Phone: [facility] 02-01-2023 08:32-0400 Systolic blood pressure 117 mm[Hg] Dr. Ethan Avendano Work Phone: [facility] 01-05-2023 09:29-0400 Body height 170.18 cm [facility] 01-05-2023 09:29-0400 Body temperature 98.4 [degF] [facility] 01-05-2023 09:29-0400 Diastolic blood pressure 53 mm[Hg] [facility] 01-05-2023 09:29-0400 Heart rate 73 /min [facility] 01-05-2023 09:29-0400 Respiratory rate 16 /min [facility] 01-05-2023 09:29-0400 SaO2% (BldA) [Mass fraction] 99 % [facility] 01-05-2023 09:29-0400 Systolic blood pressure 114 mm[Hg] [facility] 12-29-2022 08:06-0400 Diastolic blood pressure 64 mm[Hg] Latisha Estrada MD Work Phone: [facility] 12-29-2022 08:06-0400 Heart rate 99 /min Latisha Estrada MD Work Phone: [facility] 12-29-2022 08:06-0400 SaO2% (BldA) [Mass fraction] 82 % Latisha Estrada MD Work Phone: [facility] 12-29-2022 08:06-0400 Systolic blood pressure 121 mm[Hg] Latisha Estrada MD Work Phone: [facility] 12-08-2022 11:20-0400 Body height 170.18 cm [facility] 12-08-2022 11:20-0400 Diastolic blood pressure 87 mm[Hg] [facility] 12-08-2022 11:20-0400 Heart rate 76 /min [facility] 12-08-2022 11:20-0400 Respiratory rate 16 /min [facility] 12-08-2022 11:20-0400 SaO2% (BldA) [Mass fraction] 100 % [facility] 12-08-2022 11:20-0400 Systolic blood pressure 130 mm[Hg] [facility] 11-04-2022 11:23-0500 Body height 170.18 cm [facility] 11-04-2022 11:23-0500 Body temperature 97.9 [degF] [facility] 11-04-2022 11:23-0500 Diastolic blood pressure 60 mm[Hg] [facility] 11-04-2022 11:23-0500 Heart rate 60 /min [facility] 11-04-2022 11:23-0500 Respiratory rate 16 /min [facility] 11-04-2022 11:23-0500 SaO2% (BldA) [Mass fraction] 100 % [facility] 11-04-2022 11:23-0500 Systolic blood pressure 123 mm[Hg] [facility] 10-07-2022 11:02-0500 Body height 170.18 cm [facility] 10-07-2022 11:02-0500 Body mass index (BMI) [Ratio] 24.3 kg/m2 [facility] 10-07-2022 11:02-0500 Body temperature 97.9 [degF] [facility] 10-07-2022 11:02-0500 Body weight 70.3 kg [facility] 10-07-2022 11:02-0500 Diastolic blood pressure 55 mm[Hg] [facility] 10-07-2022 11:02-0500 Heart rate 63 /min [facility] 10-07-2022 11:02-0500 Respiratory rate 16 /min [facility] 10-07-2022 11:02-0500 SaO2% (BldA) [Mass fraction] 100 % [facility] 10-07-2022 11:02-0500 Systolic blood pressure 132 mm[Hg] [facility] 09-09-2022 11:12-0500 Body height 170.18 cm [facility] 09-09-2022 11:12-0500 Body mass index (BMI) [Ratio] 24.5 kg/m2 [facility] 09-09-2022 11:12-0500 Body temperature 97.7 [degF] [facility] 09-09-2022 11:12-0500 Body weight 71.21 kg [facility] 09-09-2022 11:12-0500 Diastolic blood pressure 66 mm[Hg] [facility] 09-09-2022 11:12-0500 Heart rate 68 /min [facility] 09-09-2022 11:12-0500 Respiratory rate 16 /min [facility] 09-09-2022 11:12-0500 SaO2% (BldA) [Mass fraction] 99 % [facility] 09-09-2022 11:12-0500 Systolic blood pressure 149 mm[Hg] [facility] 08-04-2022 10:51-0500 Body height 170.[address] Ethan Avendano Work Phone: [facility] Work Phone: 08-04-2022 10:51-0500 Body mass index (BMI) [Ratio] 23.8 kg/m2 Dr. Ethan Avendano Work Phone: [facility] 08-04-2022 10:51-0500 Body temperature 96.9 [degF] Dr. Ethan Avendano Work Phone: [facility] 08-04-2022 10:51-0500 Body weight 68.[address] Ethan Avendano Work Phone: [facility] 08-04-2022 10:51-0500 Diastolic blood pressure 59 mm[Hg] Dr. Ethan Avendano Work Phone: [facility] 08-04-2022 10:51-0500 Heart rate 72 /min Dr. Ethan Avendano Work Phone: [facility] 08-04-2022 10:51-0500 Respiratory rate 12 /min Dr. Ethan Avendano Work Phone: [facility] 08-04-2022 10:51-0500 SaO2% (BldA) [Mass fraction] 100 % Dr. Ethan Avendano Work Phone: [facility] 08-04-2022 10:51-0500 Systolic blood pressure 126 mm[Hg] Dr. Ethan Avendano Work Phone: [facility] 07-08-2022 11:09-0400 Body height 170.[address] Ethan Avendano Work Phone: [facility] Work Phone: 07-08-2022 11:09-0400 Body temperature 98.1 [degF] Dr. Ethan Avendano Work Phone: [facility] 07-08-2022 11:09-0400 Diastolic blood pressure 63 mm[Hg] Dr. Ethan Avendano Work Phone: [facility] 07-08-2022 11:09-0400 Heart rate 67 /min Dr. Ethan Avendano Work Phone: [facility] 07-08-2022 11:09-0400 Respiratory rate 16 /min Dr. Ethan Avendano Work Phone: [facility] 07-08-2022 11:09-0400 SaO2% (BldA) [Mass fraction] 99 % Dr. Ethan Avendano Work Phone: [facility] 07-08-2022 11:09-0400 Systolic blood pressure 135 mm[Hg] Dr. Ethan Avendano Work Phone: [facility] 06-10-2022 11:18-0400 Body height 170.[address] Ethan Avendano Work Phone: [facility] Work Phone: 06-10-2022 11:18-0400 Body mass index (BMI) [Ratio] 24.4 kg/m2 Dr. Ethan Avendano Work Phone: [facility] 06-10-2022 11:18-0400 Body temperature 98.2 [degF] Dr. Ethan Avendano Work Phone: [facility] 06-10-2022 11:18-0400 Body weight 70.[address] Ethan Avendano Work Phone: [facility] 06-10-2022 11:18-0400 Diastolic blood pressure 59 mm[Hg] Dr. Ethan Avendano Work Phone: [facility] 06-10-2022 11:18-0400 Heart rate 66 /min Dr. Ethan Avendano Work Phone: [facility] 06-10-2022 11:18-0400 Respiratory rate 12 /min Dr. Ethan Avendano Work Phone: [facility] 06-10-2022 11:18-0400 SaO2% (BldA) [Mass fraction] 99 % Dr. Ethan Avendano Work Phone: [facility] 06-10-2022 11:18-0400 Systolic blood pressure 127 mm[Hg] Dr. Ethan Avendano Work Phone: [facility] 04-08-2022 11:31-0400 Body temperature 96.6 [degF] Dr. Ethan Avendano Work Phone: [facility] Work Phone: 04-08-2022 11:31-0400 Diastolic blood pressure 57 mm[Hg] Dr. Ethan Avendano Work Phone: [facility] Work Phone: 04-08-2022 11:31-0400 Heart rate 68 /min Dr. Ethan Avendano Work Phone: [facility] Work Phone: 04-08-2022 11:31-0400 SaO2% (BldA) [Mass fraction] 98 % Dr. Ethan Avendano Work Phone: [facility] Work Phone: 04-08-2022 11:31-0400 Systolic blood pressure 118 mm[Hg] Dr. Ethan Avendano Work Phone: [facility] Work Phone: 03-16-2022 11:23-0400 Body height 170.[address] Ethan Avendano Work Phone: [facility] Work Phone: 03-04-2022 11:24-0400 Body height 170.18 cm [facility] Work Phone: 03-04-2022 11:24-0400 Body mass index (BMI) [Ratio] 24.3 kg/m2 [facility] Work Phone: 03-04-2022 11:24-0400 Body temperature 98.4 [degF] [facility] Work Phone: 03-04-2022 11:24-0400 Body weight 70.3 kg [facility] Work Phone: 03-04-2022 11:24-0400 Diastolic blood pressure 54 mm[Hg] [facility] Work Phone: 03-04-2022 11:24-0400 Heart rate 65 /min [facility] Work Phone: 03-04-2022 11:24-0400 Respiratory rate 14 /min [facility] Work Phone: 03-04-2022 11:24-0400 SaO2% (BldA) [Mass fraction] 96 % [facility] Work Phone: 03-04-2022 11:24-0400 Systolic blood pressure 126 mm[Hg] [facility] Work Phone: 02-04-2022 10:46-0400 Body height 170.18 cm [facility] Work Phone: 02-04-2022 10:46-0400 Body mass index (BMI) [Ratio] 24.1 kg/m2 [facility] Work Phone: 02-04-2022 10:46-0400 Body temperature 98.2 [degF] [facility] Work Phone: 02-04-2022 10:46-0400 Body weight 69.85 kg [facility] Work Phone: 02-04-2022 10:46-0400 Diastolic blood pressure 48 mm[Hg] [facility] Work Phone: 02-04-2022 10:46-0400 Heart rate 60 /min [facility] Work Phone: 02-04-2022 10:46-0400 Respiratory rate 16 /min [facility] Work Phone: 02-04-2022 10:46-0400 SaO2% (BldA) [Mass fraction] 97 % [facility] Work Phone: 02-04-2022 10:46-0400 Systolic blood pressure 108 mm[Hg] [facility] Work Phone: 01-07-2022 11:04-0400 Body temperature 97.6 [degF] [facility] Work Phone: 01-07-2022 11:04-0400 Diastolic blood pressure 61 mm[Hg] [facility] Work Phone: 01-07-2022 11:04-0400 Heart rate 68 /min [facility] Work Phone: 01-07-2022 11:04-0400 Respiratory rate 16 /min [facility] Work Phone: 01-07-2022 11:04-0400 SaO2% (BldA) [Mass fraction] 96 % [facility] Work Phone: 01-07-2022 11:04-0400 Systolic blood pressure 128 mm[Hg] [facility] Work Phone: 12-03-2021 11:12-0400 Body height 170.[address] Ethan Avendano Work Phone: [facility] Work Phone: 12-03-2021 11:12-0400 Body mass index (BMI) [Ratio] 24.3 kg/m2 Dr. Ethan Avendano Work Phone: [facility] Work Phone: 12-03-2021 11:12-0400 Body temperature 98.1 [degF] Dr. Ethan Avendano Work Phone: [facility] Work Phone: 12-03-2021 11:12-0400 Body weight 70.[address] Ethan Avendano Work Phone: [facility] Work Phone: 12-03-2021 11:12-0400 Diastolic blood pressure 70 mm[Hg] Dr. Ethan Avendano Work Phone: [facility] Work Phone: 12-03-2021 11:12-0400 Heart rate 72 /min Dr. Ethan Avendano Work Phone: [facility] Work Phone: 12-03-2021 11:12-0400 Respiratory rate 16 /min Dr. Ethan Avendano Work Phone: [facility] Work Phone: 12-03-2021 11:12-0400 SaO2% (BldA) [Mass fraction] 97 % Dr. Ethan Avendano Work Phone: [facility] Work Phone: 12-03-2021 11:12-0400 Systolic blood pressure 142 mm[Hg] Dr. Ethan Avendano Work Phone: [facility] Work Phone: 11-05-2021 10:17-0500 Body mass index (BMI) [Ratio] 24.7 kg/m2 Dr. Ethan Avendano Work Phone: [facility] Work Phone: 11-05-2021 10:17-0500 Body temperature 98.4 [degF] Dr. Ethan Avendano Work Phone: [facility] Work Phone: 11-05-2021 10:17-0500 Body weight 71.[address] Ethan Avendano Work Phone: [facility] Work Phone: 11-05-2021 10:17-0500 Diastolic blood pressure 56 mm[Hg] Dr. Ethan Avendano Work Phone: [facility] Work Phone: 11-05-2021 10:17-0500 Heart rate 63 /min Dr. Ethan Avendano Work Phone: [facility] Work Phone: 11-05-2021 10:17-0500 Respiratory rate 16 /min Dr. Ethan Avendano Work Phone: [facility] Work Phone: 11-05-2021 10:17-0500 SaO2% (BldA) [Mass fraction] 100 % Dr. Ethan Avendano Work Phone: [facility] Work Phone: 11-05-2021 10:17-0500 Systolic blood pressure 120 mm[Hg] Dr. Ethan Avendano Work Phone: [facility] Work Phone: 10-08-2021 11:15-0500 Body temperature 96.6 [degF] Dr. Ethan Avendano Work Phone: [facility] Work Phone: 10-08-2021 11:15-0500 Diastolic blood pressure 57 mm[Hg] Dr. Ethan Avendano Work Phone: [facility] Work Phone: 10-08-2021 11:15-0500 Heart rate 62 /min Dr. Ethan Avendano Work Phone: [facility] Work Phone: 10-08-2021 11:15-0500 SaO2% (BldA) [Mass fraction] 98 % Dr. Ethan Avendano Work Phone: [facility] Work Phone: 10-08-2021 11:15-0500 Systolic blood pressure 123 mm[Hg] Dr. Ethan Avendano Work Phone: [facility] Work Phone: 10-08-2021 09:20-0500 Respiratory rate 16 /min Dr. Ethan Avendano Work Phone: [facility] Work Phone: 09-10-2021 10:35-0500 Body mass index (BMI) [Ratio] 24.7 kg/m2 Dr. Ethan Avendano Work Phone: [facility] Work Phone: 09-10-2021 10:35-0500 Body temperature 98.5 [degF] Dr. Ethan Avendano Work Phone: [facility] Work Phone: 09-10-2021 10:35-0500 Body weight 71.[address] Ethan Avendano Work Phone: [facility] Work Phone: 09-10-2021 10:35-0500 Diastolic blood pressure 65 mm[Hg] Dr. Ethan Avendano Work Phone: [facility] Work Phone: 09-10-2021 10:35-0500 Heart rate 56 /min Dr. Ethan Avendano Work Phone: [facility] Work Phone: 09-10-2021 10:35-0500 Respiratory rate 16 /min Dr. Ethan Avendano Work Phone: [facility] Work Phone: 09-10-2021 10:35-0500 SaO2% (BldA) [Mass fraction] 95 % Dr. Ethan Avendano Work Phone: [facility] Work Phone: 09-10-2021 10:35-0500 Systolic blood pressure 116 mm[Hg] Dr. Ethan Avendano Work Phone: [facility] Work Phone: 09-06-2021 08:47-0500 Body weight 72.[address] Ethan Avendano Work Phone: [facility] Work Phone: 09-06-2021 08:47-0500 Diastolic blood pressure 66 mm[Hg] Dr. Ethan Avendano Work Phone: [facility] Work Phone: 09-06-2021 08:47-0500 Heart rate 56 /min Dr. Ethan Avendano Work Phone: [facility] Work Phone: 09-06-2021 08:47-0500 Respiratory rate 18 /min Dr. Ethan Avendano Work Phone: [facility] Work Phone: 09-06-2021 08:47-0500 SaO2% (BldA) [Mass fraction] 100 % Dr. Ethan Avendano Work Phone: [facility] Work Phone: 09-06-2021 08:47-0500 Systolic blood pressure 150 mm[Hg] Dr. Ethan Avendano Work Phone: [facility] Work Phone: 02-16-2021 10:08-0400 Body mass index (BMI) [Ratio] 24.3 kg/m2 Dr. Ethan Avendano Work Phone: [facility] Work Phone: Encounters Encounter Date Encounter Type Care Provider Facility Start: 03-05-2025 End: 03-05-[address] Ethan Avendano MD -Medical Out Work Phone: Start: 03-05-2025 End: 03-05-[address] Ethan Avendano MD Work Phone: -Medical Out Start: 02-05-2025 End: 02-05-[address] Ethan Avendano MD -Medical Out Work Phone: Start: 02-05-2025 End: 02-05-[address] Ethan Avendano MD Work Phone: [facility] Work Phone: Start: 01-06-2025 End: 01-06-[address] Ethan Avendano MD Work Phone: [facility] Work Phone: Start: 01-06-2025 End: 01-06-2025 Discharged Recurring Sandra Joaquin PA -Physical Therapy Work Phone: Start: 01-02-2025 End: 01-02-[address] Ethan Avendano MD -Medical Out Work Phone: Start: 01-02-2025 End: 01-02-2025 ambulatory Ethan Avendano Facility:[facility] Start: 12-25-2024 End: 12-25-[address] Ethan Avendano MD -Laboratory, [place] Work Phone: Start: 12-25-2024 End: 12-25-2024 ambulatory Ethan Avendano Facility:[facility] Start: 12-19-2024 Registered Recurring Sandra Joaquin PA -Physical Therapy Work Phone: Start: 12-17-2024 End: 12-17-[address] Ethan Avendano MD Work Phone: [facility] Work Phone: Start: 12-17-2024 End: 12-17-[address] Demian Ramsay MD -Cardiovascular Services Work Phone: Start: 12-17-2024 End: 12-17-2024 ambulatory Ethan Avendano Facility:[facility] Start: 12-05-2024 End: 12-05-[address] Ethan Avendano MD -Medical Out Work Phone: Start: 12-05-2024 End: 12-05-[address] Ethan Avendano MD Work Phone: [facility] Work Phone: Start: 12-04-2024 Registered Recurring Sandra ALVAREZ -Physical Therapy Work Phone: Start: 11-28-2024 End: 11-28-[address] Demian Ramsay MD -[facility] Work Phone: Start: 11-28-2024 End: 11-28-2024 ambulatory Ethan Avendano Facility[place] Start: 11-07-2024 End: 11-07-[address] Ethan Avendano MD -Medical Out Work Phone: Start: 11-07-2024 End: 11-07-[address] Ethan Avendano MD Work Phone: [facility] Work Phone: Start: 10-29-2024 End: 10-29-[address] Ethan Avendano MD Work Phone: [facility] Work Phone: Start: 10-29-2024 End: 10-29-[address] [facility] Start: 10-29-2024 End: 10-29-2024 ambulatory Ethan Avendano Facility:[facility] Start: 10-10-2024 End: 10-10-[address] Ethan Avendano MD -Medical Out Work Phone: Start: 10-10-2024 End: 10-10-2024 ambulatory Ethan Avendano Facility:[facility] Start: 09-11-2024 End: 09-11-[address] Jameel Oseguera MD -Radiology, [facility] Work Phone: Start: 09-11-2024 End: 09-11-2024 ambulatory Ethan Avendano Facility:[facility] Start: 09-05-2024 End: 09-05-[address] Ethan Avendano MD -Medical Out Work Phone: Start: 09-05-2024 End: 09-05-2024 ambulatory Ethan Avendano Facility:[facility] Start: 08-23-2024 Non-patient / Non-visit Dr. Matilde Oseguera MD -[facility] Start: 08-23-2024 End: 08-23-2024 Admission to same day surgery center Dr. Jameel Oseguera MD -Endoscopy Work Phone: Start: 08-23-2024 End: 08-23-2024 ambulatory Ethan Avendano Facility:[facility] Start: 08-08-2024 End: 08-08-[address] Ethan Avendano MD -Medical Out Work Phone: Start: 08-08-2024 End: 08-08-2024 myke Avendano Facility:[facility] Start: 07-11-2024 End: 07-11-[address] Ethan Avendano MD -Medical Out Work Phone: Start: 07-11-2024 End: 07-11-2024 ambulatory Ethan Avendano Facility:[facility] Start: 07-10-2024 End: 07-10-2024 ambulatory Ethan Avendano Facility:[facility] Start: 06-06-2024 End: 06-06-2024 ambulatory Ethan Avendano Facility:[facility] Start: 05-09-2024 End: 05-09-2024 ambulatory Ethan Avendano Facility:[facility] Start: 04-05-2024 End: 04-05-2024 ambulatory Ethan Avendano Facility:[facility] Start: 03-28-2024 End: 03-28-2024 ambulatory Blaine Lee Facility:[facility] Start: 03-08-2024 End: 03-08-2024 ambulatory Ethan Avendano Facility:[facility] Start: 01-04-2024 End: 01-04-[address] Ethan Avendano Work Phone: [facility] Work Phone: Start: 01-04-2024 End: 01-04-[address] Ethan Avendano Work Phone: [facility]-Medical Out Work Phone: Start: 12-07-2023 End: 12-07-[address] Ethan Avendano Work Phone: [facility] Work Phone: Start: 12-07-2023 End: 12-07-[address] Ethan Avendano Work Phone: [facility]-Medical Out Work Phone: Start: 11-16-2023 End: 11-16-[address] Ethan Avendano Work Phone: [facility] Work Phone: Start: 11-16-2023 End: 11-16-[address] Ethan Avendano Work Phone: [facility] Start: 11-09-2023 End: 11-09-[address] Ethan Avendano Work Phone: [facility] Work Phone: Start: 11-09-2023 End: 11-09-[address] Ethan Avendano Work Phone: [facility]-Medical Out Work Phone: Start: 10-10-2023 End: 10-10-[address] Ethan Avendano Work Phone: [facility] Work Phone: Start: 10-06-2023 End: 10-06-2023 ambulatory FLORENCE EUGENE [facility]:[phone] Start: 10-05-2023 End: 10-05-2023 ambulatory [facility] Work Phone: Start: 10-05-2023 End: 10-05-2023 Patient encounter procedure [facility]-Medical Out Work Phone: Start: 09-07-2023 End: 09-07-2023 ambulatory [facility] Work Phone: Start: 09-07-2023 End: 09-07-2023 [facility] Start: 08-10-2023 End: 08-10-2023 [facility] Start: 07-06-2023 End: 07-06-[address] Ethan Avendano Work Phone: [facility] Work Phone: Start: 07-06-2023 End: 07-06-[address] [facility] Start: 06-08-2023 End: 06-08-[address] [facility] Start: 05-10-2023 End: 05-10-[address] Ethan Avendano Work Phone: [facility] Work Phone: Start: 05-10-2023 End: 05-10-[address] [facility] Start: 05-05-2023 Non-patient / Non-visit Dr. Abdulkadir Avendano Work Phone: [facility] Start: 05-05-2023 End: 05-05-[address] Ethan Avendano Work Phone: [facility] Work Phone: Start: 05-05-2023 End: 05-05-[address] Ethan Avendano Work Phone: [facility]-Cardiovascula r Services Work Phone: Start: 04-05-2023 End: 04-05-[address] Ethan Avendano Work Phone: [facility] Work Phone: Start: 04-05-2023 End: 04-05-[address] Ethan Avendano Work Phone: [facility]-Medical Out Work Phone: Start: 03-23-2023 End: 03-23-[address] Ethan Avendano Work Phone: [facility]-Laboratory Work Phone: Start: 03-08-2023 End: 03-08-[address] Ethan Avendano Work Phone: [facility] Work Phone: Start: 03-08-2023 End: 03-08-[address] Ethan Avendano Work Phone: [facility]-Medical Out Work Phone: Start: 02-03-2023 End: 02-03-[address] Ethan Avendano Work Phone: [facility] Work Phone: Start: 02-03-2023 End: 02-03-[address] Ethan Avendano Work Phone: [facility]-Medical Out Start: 02-01-2023 End: 02-01-[address] Ethan Avendano Work Phone: [facility] Work Phone: Start: 02-01-2023 End: 02-01-[address] Ethan Avendano Work Phone: [facility]-Laboratory Start: 02-01-2023 End: 02-01-[address] Ethan Avendano Work Phone: [facility] Start: 01-05-2023 End: 01-05-2023 ambulatory [facility] Work Phone: Start: 01-05-2023 End: 01-05-2023 Patient encounter procedure [facility]-Medical Out Start: 12-29-2022 End: 12-29-2022 ambulatory LACY GOLDBERG Facility:[facility] Start: 12-29-2022 End: 12-29-2022 Patient encounter procedure Latisha Estrada MD Work Phone: Neurology Comment on above: Parkinson disease (H CC) (Primary Dx) Start: 12-08-2022 End: 12-08-2022 ambulatory [facility] Work Phone: Start: 12-08-2022 End: 12-08-2022 Patient encounter procedure [facility]-Medical Out Start: 11-16-2022 End: 11-16-2022 ambulatory [facility] Work Phone: Start: 11-16-2022 End: 11-16-2022 Discharged Recurring [facility]-Physical Therapy Start: 11-04-2022 End: 11-04-2022 Patient encounter procedure [facility]-Medical Out Start: 10-07-2022 End: 10-07-2022 ambulatory [facility] Work Phone: Start: 10-07-2022 End: 10-07-2022 Patient encounter procedure [facility]-Medical Out Start: 09-19-2022 End: 09-19-2022 ambulatory [facility] Work Phone: Start: 09-19-2022 End: 09-19-2022 Patient encounter procedure [facility]-MRI - [facility] Start: 09-09-2022 End: 09-09-2022 ambulatory [facility] Work Phone: Start: 09-09-2022 End: 09-09-2022 Patient encounter procedure [facility]-Medical Out Start: 08-24-2022 End: 08-24-2022 ambulatory [facility] Work Phone: Start: 08-24-2022 End: 08-24-2022 Patient encounter procedure [facility]-Laboratory, [place] Start: 08-16-2022 End: 08-16-2022 ambulatory Florence A Jeff OT/[facility] Start: 08-16-2022 End: 08-16-2022 Coordination of care plan Florence A Jeff OT/[facility] [place] Comment on above: Parkinson disease (H CC) (Primary Dx); Abnormality of gait and mobility; Abnormal coordination; Irregular eye movements Start: 08-15-2022 End: 08-15-2022 ambulatory [facility] Work Phone: Start: 08-15-2022 End: 08-15-[address] Ethan Avendano Work Phone: [facility]-Laboratory, Specimen Start: 08-15-2022 End: 08-15-2022 ambulatory Florence A Jeff OT/[facility] Start: 08-15-2022 End: 08-15-2022 Coordination of care plan Florence A Jeff OT/[facility] [place] Comment on above: Parkinson disease (H CC) (Primary Dx); Abnormality of gait and mobility; Abnormal coordination; Irregular eye movements Start: 08-11-2022 End: 08-11-[address] Ethan Avendano Work Phone: [facility] Work Phone: Start: 08-11-2022 End: 08-11-[address] Ethan Avendano Work Phone: [facility] Start: 08-04-2022 End: 08-04-2022 ambulatory [facility] Work Phone: Start: 08-04-2022 End: 08-04-[address] Ethan Avendano Work Phone: [facility]-Medical Out Start: 07-15-2022 End: 07-15-[address] Ethan Avendano Work Phone: [facility] Work Phone: Start: 07-15-2022 End: 07-15-[address] Ethan Avendano Work Phone: [facility] Start: 07-08-2022 End: 07-08-[address] Ethan Avendano Work Phone: [facility] Work Phone: Start: 07-08-2022 End: 07-08-[address] Ethan Avendano Work Phone: [facility]-Medical Out Start: 07-07-2022 End: 07-07-[address] Ethan Avendano Work Phone: [facility] Start: 07-04-2022 End: 07-04-[address] Ethan Avendano Work Phone: [facility]-Speech Therapy Start: 07-04-[address] Ethan Avendano Work Phone: [facility]-Speech Therapy Start: 06-13-[address] Ethan Avendano Work Phone: [facility]-Speech Therapy Start: 06-10-2022 End: 06-10-[address] Ethan Avendano Work Phone: [facility]-Medical Out Start: 06-07-2022 End: 06-07-2022 ambulatory Dr. Ethan Avendano Work Phone: [facility] Work Phone: Start: 06-07-2022 End: 06-07-[address] Ethan Avendano Work Phone: [facility] Start: 05-06-2022 End: 05-06-[address] Ethan Avendano Work Phone: [facility] Work Phone: Start: 05-06-2022 End: 05-06-[address] Ethan Avendano Work Phone: [facility]-Medical Out Start: 05-04-[address] Ethan Avendano Work Phone: [facility]-Speech Therapy Start: 04-20-2022 Non-patient / Non-visit Dr. Abdulkadir Avendano Work Phone: [facility] Start: 04-20-2022 End: 04-20-[address] Ethan Avendano Work Phone: [facility]-Cardiovascula r Services Start: 04-08-2022 End: 04-08-[address] [facility] Start: 03-16-2022 End: 03-16-[address] Ethan Avendano Work Phone: [facility] Start: 03-04-2022 End: 03-04-2022 [facility] Start: 02-04-2022 End: 02-04-2022 [facility] Start: 01-07-2022 End: 01-07-2022 [facility] Start: 12-03-2021 End: 12-03-[address] [facility] Start: 12-02-2021 End: 12-02-[address] Ethan Avendano Work Phone: [facility] Start: 11-05-2021 End: 11-05-[address] [facility] Start: 10-08-2021 End: 10-08-[address] Ethan Avendano Work Phone: [facility] Out Start: 09-10-2021 End: 09-10-[address] [facility] Start: 09-06-2021 End: 09-06-[address] Ethan Avendano Work Phone: [facility] Start: 08-14-2017 Ambulatory Isaac Prater Facilit [id number] Procedures Date Procedure Procedure Detail Performing Clinician Start: 10-29-[address] Ethan Avendano MD Work Phone: Comment on above: Hemolysis, Results w ill be affected, Requires Recollection. Start: 09-11-2024 Air contrast barium enema Dr. Ethan Avendano MD Work Phone: Start: 08-23-[address] Ethan metcalf MD Work Phone: Start: 09-18-2022 MRI of joint of lowe r extremity Start: 08-24-2022 Plain X-ray of shoulder Start: 08-11-2022 MRI of lumbar spine Dr. Ethan Avendano Work Phone: Start: 07-15-2022 X-ray of lumbosacral spine Dr. Ethan Avendano Work Phone: Start: 06-07-[address] Ethan metcalf Work Phone: Start: 12-30-2020 History of transuret hral prostatectomy History of transurethral resection of prostate Dr. Ethan Avendano Work Phone: Start: 03-21-2019 History of placement of stent for coronary artery disease History of coronary artery stent placement Dr. Demian Ramsay MD Comment on above: QST-VKS-Mzooee RCA w / 2.5 x 12 mm Elunir Stent and MILANA-Mid RCA w/ 3.0 x 33 mm Elunir Stent 03/11/19; PCI-MILANA- Mid LAD w/ 3.0 x 16 mm Synergy MR Stent 03/21/2019 Start: 09-26-2008 Colonoscopy Florence villanueva OT/L Plan of Treatment Date Care Activity Detail Author Start: 06-25-2026 Urine microalbumin profile DTAP,TDAP,TD (4 - Td or Tdap) [facility] Start: 01-02-2025 Iv infusion therapy prophylaxis/dx ea hour THER/PROPH/DIAG IV INF [facility] Start: 01-02-2025 Iv infusion therapy/prophylaxis /dx 1st to 1 hr THER/PROPH/DIAG IV INF [facility] Start: 12-05-2024 Iv infusion therapy prophylaxis/dx ea hour THER/PROPH/DIAG IV INF [facility] Start: 12-05-2024 Iv infusion therapy/prophylaxis /dx 1st to 1 hr THER/PROPH/DIAG IV INF [facility] Start: 10-10-2024 Iv infusion therapy prophylaxis/dx ea hour THER/PROPH/DIAG IV INF [facility] Start: 10-10-2024 Iv infusion therapy/prophylaxis /dx 1st to 1 hr THER/PROPH/DIAG IV INF [facility] Start: 08-23-2024 Patient discharge [facility] Start: 12-07-2023 Iv infusion therapy prophylaxis/dx ea hour THER/PROPH/DIAG IV INF [facility] Start: 12-07-2023 Iv infusion therapy/prophylaxis /dx 1st to 1 hr THER/PROPH/DIAG IV INF [facility] Start: 09-07-2023 Iv infusion therapy prophylaxis/dx ea hour THER/PROPH/DIAG IV INF [facility] Start: 09-07-2023 Iv infusion therapy/prophylaxis /dx 1st to 1 hr THER/PROPH/DIAG IV INF [facility] Start: 05-10-2023 Iv infusion therapy prophylaxis/dx ea hour THER/PROPH/DIAG IV INF [facility] Start: 05-10-2023 Iv infusion therapy/prophylaxis /dx 1st to 1 hr THER/PROPH/DIAG IV INF [facility] Start: 04-05-2023 Iv infusion therapy prophylaxis/dx ea hour THER/PROPH/DIAG IV INF [facility] Start: 04-05-2023 Iv infusion therapy/prophylaxis /dx 1st to 1 hr THER/PROPH/DIAG IV INF [facility] Start: 03-08-2023 Iv infusion therapy prophylaxis/dx ea hour THER/PROPH/DIAG IV INF [facility] Start: 03-08-2023 Iv infusion therapy/prophylaxis /dx 1st to 1 hr THER/PROPH/DIAG IV INF [facility] Start: 02-03-2023 Iv infusion therapy prophylaxis/dx ea hour THER/PROPH/DIAG IV INF [facility] Start: 02-03-2023 Iv infusion therapy/prophylaxis /dx 1st to 1 hr THER/PROPH/DIAG IV INF [facility] Start: 01-05-2023 Iv infusion therapy prophylaxis/dx ea hour THER/PROPH/DIAG IV INF [facility] Start: 01-05-2023 Iv infusion therapy/prophylaxis /dx 1st to 1 hr THER/PROPH/DIAG IV INF [facility] Start: 12-08-2022 Iv infusion therapy prophylaxis/dx ea hour THER/PROPH/DIAG IV INF [facility] Start: 12-08-2022 Iv infusion therapy/prophylaxis /dx 1st to 1 hr THER/PROPH/DIAG IV INF [facility] Start: 11-04-2022 Iv infusion therapy prophylaxis/dx ea hour THER/PROPH/DIAG IV INF [facility] Start: 11-04-2022 Iv infusion therapy/prophylaxis /dx 1st to 1 hr THER/PROPH/DIAG IV INF [facility] Start: 10-07-2022 Iv infusion therapy prophylaxis/dx ea hour THER/PROPH/DIAG IV INF [facility] Start: 10-07-2022 Iv infusion therapy/prophylaxis /dx 1st to 1 hr THER/PROPH/DIAG IV INF [facility] Start: 09-09-2022 Iv infusion therapy prophylaxis/dx ea hour THER/PROPH/DIAG IV INF [facility] Start: 09-09-2022 Iv infusion therapy/prophylaxis /dx 1st to 1 hr THER/PROPH/DIAG IV INF [facility] Start: 09-04-2022 ADVANCE DIRECTIVE DISCUSSION ADVANCE DIRECTIVE DISCUSSION [facility] Start: 09-04-2022 DEPRESSION ASSESSMENT DEPRESSION ASSESSMENT [facility] Start: 08-04-2022 Iv infusion therapy prophylaxis/dx ea hour THER/PROPH/DIAG IV INF [facility] Work Phone: Start: 08-04-2022 Iv infusion therapy/prophylaxis /dx 1st to 1 hr THER/PROPH/DIAG IV INF [facility] Work Phone: Start: 07-08-2022 Iv infusion therapy prophylaxis/dx ea hour THER/PROPH/DIAG IV INF [facility] Work Phone: Start: 07-08-2022 Iv infusion therapy/prophylaxis /dx 1st to 1 hr THER/PROPH/DIAG IV INF [facility] Work Phone: Start: 05-06-2022 Iv infusion therapy prophylaxis/dx ea hour THER/PROPH/DIAG IV INF [facility] Work Phone: Start: 05-06-2022 Iv infusion therapy/prophylaxis /dx 1st to 1 hr THER/PROPH/DIAG IV INF [facility] Work Phone: Start: 04-08-2022 Iv infusion therapy prophylaxis/dx ea hour THER/PROPH/DIAG IV INF [facility] Work Phone: Start: 04-08-2022 Iv infusion therapy/prophylaxis /dx 1st to 1 hr THER/PROPH/DIAG IV INF [facility] Work Phone: Start: 03-04-2022 Iv infusion therapy prophylaxis/dx ea hour THER/PROPH/DIAG IV INF [facility] Work Phone: Start: 03-04-2022 Iv infusion therapy/prophylaxis /dx 1st to 1 hr THER/PROPH/DIAG IV INF [facility] Work Phone: Start: 02-04-2022 Iv infusion therapy prophylaxis/dx ea hour THER/PROPH/DIAG IV INF [facility] Work Phone: Start: 02-04-2022 Iv infusion therapy/prophylaxis /dx 1st to 1 hr THER/PROPH/DIAG IV INF [facility] Work Phone: Start: 12-03-2021 Iv infusion therapy prophylaxis/dx ea hour THER/PROPH/DIAG IV INF [facility] Work Phone: Start: 12-03-2021 Iv infusion therapy/prophylaxis /dx 1st to 1 hr THER/PROPH/DIAG IV INF [facility] Work Phone: Start: 09-04-2021 ADVANCE DIRECTIVE DISCUSSION ADVANCE DIRECTIVE DISCUSSION [facility] Start: 09-04-2021 DEPRESSION ASSESSMENT DEPRESSION ASSESSMENT [facility] Start: 06-23-2021 LIPID SCREEN LIPID SCREEN [facility] Start: 06-23-2019 DIABETES SCREEN DIABETES SCREEN [facility] Start: 06-13-2019 PNEUMOCOCCAL: 65+ (4 - PPSV23 if available, else PCV20) PNEUMOCOCCAL: 65+ (4 - PPSV23 if available, else PCV20) [facility] Start: 09-26-2018 Colonoscopy COLONOSCOPY [facility] Start: 09-26-2018 COLORECTAL CANCER SCREENING COLORECTAL CANCER SCREENING [facility] Start: 07-20-2014 FECAL OCCULT BLOOD FECAL OCCULT BLOOD [facility] Start: 1997 COLOGUARD (FIT-DNA) COLOGUARD (FIT-DNA) [facility] Start: [address] COLONOGRAPHY [facility] Start: 1997 SIGMOIDOSCOPY SIGMOIDOSCOPY [facility] Start: 1971 SHINGRIX VACCINE (1 of 2) SHINGRIX VACCINE (1 of 2) [facility] Start: 1970 HEPATITIS C SCREENING HEPATITIS C SCREENING [facility] Patient referral [facility] Work Phone: US Carotid arteries [facility] US Carotid arteries [facility] Immunizations Immunization Date Immunization Notes Care Provider Fa cility 12-09-2020 Covsebastian (Moderna) Dr. Ethan Hagan Work Phone: [facility] 11-11-2020 Dontae (Moderna) Dr. Ethan Hagan Work Phone: [facility] 06-25-2016 influenza, injectabl e, quadrivalent, contains preservative Florence Eugene OT/L [facility] 06-25-2016 tetanus toxoid, redu manas diphtheria toxoid, and acellular pertussis vaccine, adsorbed Florence Jeff OT/L [facility] 07-17-2015 pneumococcal conjuga te vaccine, 13 valent Florence Jeff OT/L [facility] Work Phone: 06-18-2015 influenza, high dose seasonal, preservative-free Florence Jeff OT/L [facility] 06-13-2014 influenza, seasonal, injectable Florence Jeff OT/L [facility] 06-13-2014 pneumococcal polysaccharide vaccine, 23 valent Florence Jeff OT/L [facility] 07-11-2013 influenza virus vacc ine, unspecified formulation Florence Jeff OT/L [facility] 07-14-2009 novel influenza-H1N1 -09, all formulations Florencestephen SainzJeff OT/L [facility] Work Phone: 05-04-2007 pneumococcal polysaccharide vaccine, 23 valent Florence Jeff OT/L [facility] Work Phone: 05-04-2007 tetanus toxoid, redu manas diphtheria toxoid, and acellular pertussis vaccine, adsorbed Florence Jeff OT/L [facility] Work Phone: 05-04-1994 diphtheria and tetan us toxoids, adsorbed for pediatric use Florence Jeff OT/L [facility] Work Phone: Payers Date Payer Category Payer Self-pay [id number] 2022 Unknown MMO MMO MEDICARE SUPPLEMENT [id number] 2022-Present [phone] [address] [place] [address] Indemnity [id number] 2022 Unknown [id number] 2017 Medicare MEDICARE MEDICAR E A AND B [id number] 2017-Present [phone] [address] [address] [place] [address] Medicare [id number] 2017 Medicare [id number] Medicare [id number] Unknown [id number] Unknown [id number] [id number] Unknown [id number] 2.16.840.1.051735.3.579.2.462 Unknown [id number] 2.16.840.1.704582.3.579.2.462 Unknown [id number] 2.16.840.1.185940.3.579.2.462 Unknown [id number] 2.16.840.1.685977.3.579.2.462 Unknown [id number] 2.16.840.1.792831.3.579.2.462 Unknown [id number] 2.16.840.1.631867.3.579.2.462 Unknown [id number] 2.16.840.1.489949.3.579.2.462 Unknown [id number] 2.16.840.1.139137.3.579.2.462 Unknown [id number] 2.16.840.1.639914.3.579.2.462 Unknown [id number] 2.16.840.1.039144.3.579.2.462 Unknown [id number] 2.16.840.1.456021.3.579.2.462 Unknown [id number] 2.16.840.1.222836.3.579.2.462 Unknown [id number] 2.16.840.1.626350.3.579.2.462 Unknown [id number] 2.16.840.1.737516.3.579.2.462 Unknown [id number] 2.16840.1.159769.3.579.2.462 Unknown [id number] 2.16.840.1.799777.3.579.2.462 Unknown [id number] 2.16.840.1.327402.3.579.2.462 Unknown [id number] 2.16840.1.395728.3.579.2.462 Unknown [id number] 2.16840.1.790731.3.579.2.462 Unknown [id number] 2.840.1.384927.3.579.2.462 Unknown [id number] 2.840.1.584835.3.579.2.462 Social History Date Type Detail Facility Start: 09-06-2021 End: 10-10-2023 Tobacco smoking status NHIS Unknown if ever smoked [facility] Start: 12-12-2020 Spouse/ Signif icant Other [facility] Start: 12-24-2020 Non-smoker [facility] Start: 1950 Sex Assigned At Male W [facility] Start: 08-27-2021 End: 08-22-2024 Tobacco smoking status NJIS Never smoked tobacco [facility] Start: 08-27-2021 End: 12-29-2022 Tobacco use and exposure Smokeless tobacco non-user [facility] Start: 04-20-2022 End: 12-29-2022 Alcohol intake Current non-drinker of alcohol (finding) [facility] Start: 1950 Sex Assigned At Not on file [facility] Start: 11-08-2024 End: 12-21-2024 Sex Male (finding) [facility] Goals Date Patient Goal Desired Activity /State Mental Status Date Assessment Result Facility 03-05-2025 Cognitive function Voice/Name [facility] Work Phone: 02-05-2025 Cognitive function Voice/Name [facility] Work Phone: 01-02-2025 Cognitive function Voice/Name [facility] Work Phone: 12-05-2024 Cognitive function Awake;Alert;A ppropriate;Follow s Commands [facility] Work Phone: 11-07-2024 Cognitive function Voice/Name [facility] Work Phone: 10-10-2024 Cognitive function Voice/Name [facility] Work Phone: 09-05-2024 Cognitive function Voice/Name [facility] Work Phone: 08-23-2024 Cognitive function Level Of Cons ciousness Follows Commands;Drowsy [facility] Work Phone: 08-23-2024 Cognitive function Voice/Name [facility] Work Phone: 07-11-2024 Cognitive function Awake;Alert;A ppropriate;Follow s Commands [facility] Work Phone: 01-04-2024 Cognitive function Awake;Alert;A ppropriate;Follow s Commands [facility] Work Phone: 12-07-2023 Cognitive function Awake;Alert;A ppropriate;Follow s Commands [facility] Work Phone: 11-09-2023 Cognitive function Awake;Alert;A ppropriate;Follow s Commands [facility] Work Phone: 10-05-2023 Cognitive function Awake;Alert;A ppropriate;Follow s Commands [facility] Work Phone: 09-07-2023 Cognitive function Awake;Alert;A ppropriate;Follow s Commands [facility] Work Phone: 08-10-2023 Cognitive function Voice/Name [facility] Work Phone: 07-06-2023 Cognitive function Voice/Name [facility] Work Phone: 06-08-2023 Cognitive function Awake;Alert;A ppropriate;Follow s Commands [facility] Work Phone: 05-10-2023 Cognitive function Voice/Name [facility] Work Phone: 04-05-2023 Cognitive function Voice/Name [facility] Work Phone: 03-08-2023 Cognitive function Voice/Name [facility] Work Phone: 02-03-2023 Cognitive function Awake;Alert;A ppropriate;Follow s Commands [facility] Work Phone: 01-05-2023 Cognitive function Voice/Name [facility] Work Phone: 12-08-2022 Cognitive function Voice/Name [facility] Work Phone: 11-04-2022 Cognitive function Voice/Name [facility] Work Phone: 10-07-2022 Cognitive function Awake;Alert;A ppropriate;Follow s Commands [facility] Work Phone: 08-04-2022 Cognitive function Voice/Name [facility] Work Phone: 07-08-2022 Cognitive function Voice/Name [facility] Work Phone: 06-10-2022 Cognitive function Voice/Name [facility] Work Phone: 05-06-2022 Cognitive function Level Of Cons ciousness Awake;Alert;Appropriate;Follow s Commands [facility] Work Phone: 04-08-2022 Cognitive function Level Of Cons ciousness Awake;Alert;Appropriate;Follow s Commands [facility] Work Phone: 03-04-2022 Cognitive function Voice/Name [facility] Work Phone: 02-04-2022 Cognitive function Awake;Alert;A ppropriate;Follow s Commands [facility] Work Phone: 01-07-2022 Cognitive function Awake;Alert;A ppropriate;Follow s Commands [facility] Work Phone: 12-03-2021 Cognitive function Awake;Alert;A ppropriate;Follow s Commands [facility] Work Phone: 11-05-2021 Cognitive function Awake;Alert;A ppropriate;Follow s Commands [facility] Work Phone: 10-08-2021 Cognitive function Level Of Cons ciousness Awake;Alert;Appropriate;Follow s Commands [facility] Work Phone: 09-10-2021 Cognitive function Awake;Alert;A ppropriate;Follow s Commands [facility] Work Phone: Clinical Notes 07-11-2013 to 01-06-2025 Note Date & Type Note Facility 01-06-2025 Discharge summary Note Date/Time January 06, 2025 7:00pm [facility] Physical Therapy [facility] [address] [place] [address] [address] [place] [address] / REHABILITATION SERVICES DISCHARGE SUMMARY MR#: [id number] Acct: [id number] Name: FRANCISCO KELLY Rep #: [id number] : 1950 74 From: Mojgan Griffiths Referring Dr.: KIM Mendenhall Status: REG R Insurance: MEDICARE PART A B [facility] Discharge Summary D/C summary: It has been my pleasure to treat FRANCISCO KELLY referred by KIM Mendenhall, with the diagnosis of PD (balance/Falls) for a total of 10 visit(s). Discharge Date: 01/06/25 Please see the following information for a summary of their discharge status. Subjective Subjective: He is going on 7 classes a week. He feels that answering % better is harder to say because PD is variable. He feels that he has learned some tips. He fell 3-4 days ago he was getting the visual c developer ready to mow. He was on the grass and it was pretty flat. Pain L foot: Pain Intensity (Out of 10): 1 back pain: Pain Intensity (Out of 10): 2 Overall Improvement % Improvement: 15 Objective Objective/Function: FGA: 25 Standing opp arm and leg X 20 on each side Step: up the steps he does not like to put his whole foot on the stop and he and his are aware. Goals Goal 1:: I HEP Goal Progress: Goal Met Goal 2:: Increase balance (FGA score was 22 at eval) Goal 3:: Be able to walk with larger steps and decrease stepping out with gait Goal Progress: Goal Met Goal 4:: Be able to complete X 20 opp arm and leg in standing and reverse opp arm and leg in standing Goal Progress: Goal Met Plan Plan: 2X/ week for 4 weeks for Postural and trunk stretching (LTR, Wall stretch,trunk rotation to touch the wall), gait training, BW walking, changing direction, dual tasking (such as opp arm and leg and counting BW by 2's etc), stepping over objects with HEP D/C Information Discharge Comments: DC PT to exercises everyday d/c sentence: If there are questions or concerns regarding this patient's physical therapy, please feel free to call me at [phone]. Thank you for the referral of thispatient. Sincerely, VANDA Shultz Balance/Gait/Functional tests Balance/Special Test Scores Functional Gait Assessment Score: 25 % Disability: 16.6700 CATSIB Score (Max score 120 seconds): 120 Lower Extremity Functional Score: 44 Improvement % Improvement: 15 <Electronically signed by Mojgan Gonzalez MPT> 01/06/25 1506 CC: Dr. Ethan Avendano MD; KIM Mendenhall ~ Signed [facility] Work Phone: 1(244) 439-251605-05-2025 Discharge summary [facility] Physical Therapy [facility] [place] [address] / REHABILITATION SERVICES DISCHARGE SUMMARY MR#: [id number] Acct: [id number] Name: FRANCISCO KELLY Rep #: [id number] : 1950 74 From: Mojgan Gonzalez MP T Referring Dr.: KIM Mendenhall Status: REG RCR Insurance: MEDICARE PART A B [facility] Discharge Summary D/C summary: It has been my pleasure to treat FRANCISCO KELLY referred by KIM Mendenhall, with the diagnosis of PD (balance/Falls) for a total of 10 visit(s). Discharge Date: 01/06/25 Please see the following information for a summary of their discharge status. Subjective Subjective: He is going on 7 classes a week. He feels that answering % better is harder to say because PD is variable. He feels that he has learned some tips. He fell 3-4 days ago he was getting the visual c developer ready to mow. He was on the grass and it was pretty flat. Pain L foot: Pain Intensity (Out of 10): 1 back pain: Pain Intensity (Out of 10): 2 Overall Improvement % Improvement: 15 Objective Objective/Function: FGA: 25 Standing opp arm and leg X 20 on each side Step: up the steps he does not like to put his whole foot on the stop and he and his are aware. Goals Goal 1:: I HEP Goal Progress: Goal Met Goal 2:: Increase balance (FGA score was 22 at eval) Goal 3:: Be able to walk with larger steps and decrease stepping out with gait Goal Progress: Goal Met Goal 4:: Be able to complete X 20 opp arm and leg in standing and reverse opp arm and leg in standing Goal Progress: Goal Met Plan Plan: 2X/ week for 4 weeks for Postural and trunk stretching (LTR, Wall stretch,trunk rotation to touch the wall), gait training, BW walking, changing direction, dual tasking (such as opp arm and legand counting BW by 2's etc), stepping over objects with HEP D/C Information Discharge Comments: DC PT to exercises everyday d/c sentence: If there are questions or concerns regarding this patient's physical therapy, please feel free to call me at [phone]. Thank you for the referral of thispatient. Sincerely, Mojgan Gonzalez, MPT Balance/Gait/Functional tests Balance/Special Test Scores Functional Gait Assessment Score: 25 % Disability: 16.6700 CATSIB Score (Max score 120 seconds): 120 Lower Extremity Functional Score: 44 Improvement % Improvement: 15 01/06/25 1506 CC: Dr. Ethan Avendano MD; KIM Mendenhall ~ Signed [facility]03-27-2025 Evaluation note* Diagnosis Onset Date Resolution Status Admit Date Carotid bruit acute November 28, 2024 10:49am History of coronary artery stent placement March 21, 2019 chronic November 28, 2024 10:49am Hyperlipidemia chronic November 10:49am [facility] Work Phone: 1(847) 307-128612-20-2024 [facility] Records Department [address] [place] [address] History Physical Exam 08/23/24 0806 MR#: [id number] Acct: [id number] Name: FRANCISCO KELLY Rep #: [id number] : 1950 74 From: Jameel Oseguera MD PCP: Dr. Ethan Avendano MD Status:REG [facility] Location: [place] [address] History and Physical Date of Admission: 08/23/24 Intake Vital Signs 06/06/2410:48 07/10/2414:18 Height 5 ft 7 in 5 ft 7 in Weight: 5 lb 8 oz BMI 0.8 BP 148/70 H Blood Pressure Location Rt brachial Position Sitting Respiration 17 Pulse 70 Pulse Source Monitor Pulse Oximetry (%) 100 Oxygen Delivery Method room air Intake Visit Reasons: POSITIVE COLOGUARD Chief Complaint: Positive cologuard Is patient in pain?: No Allergies No Known Allergies Allergy (Verified 07/10/24 14:19) Medications ???Medication ???Instructions ???Recorded ???Confirmed ???Type multivitamin with folic acid 400 1 tab PO DAILY 06/10/13 07/10/24 History mcg tablet folic acid 400 mcg tablet 1 tab PO DAILY 12/24/13 07/10/24 History immune glob,gamma(IgG) 10 20 g .Route .p0csynw 03/04/19 07/10/24 History qkfy-nqv-lvvj-IgA 0 to 50 mcg/mL IV solution nitroglycerin 0.4 mg sublingual 0.4 mg sublingual Q5-15M PRN chest 04/03/19 07/10/24 Rx tablet pain #25 tabs celecoxib 200 mg capsule 200 mg PO BID 06/14/19 07/10/24 History ibuprofen 600 mg tablet 600 mg PO Q6H PRN pain #20 tabs 12/30/20 07/10/24 Rx aspirin 81 mg tablet,delayed 81 mg PO DAILY 01/05/21 07/10/24 History release (Adult Low Dose Aspirin) gabapentin 300 mg capsule 300 mg PO TID 09/06/21 07/10/24 History carbidopa 25 mg-levodopa 100 mg 1 tab PO .qid 02/01/23 07/10/24 History tablet escitalopram oxalate 5 mg tablet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 Carotid bruit acute History of coronary artery stent placement March 21, 2019 chronic Hyperlipidemia [facility] Work Phone: [phone]) 112-587111-07-2013 History of Past illness Narrative* Problem Noted Date Resolved Date Pure hypercholesterolemia 2012 documented as of this encounter (statuses as of 08/16/2022) [facility] of Past illness Narrative* Problem Noted Date Resolved Date Pure hypercholesterolemia 2012 documented as of this encounter (statuses as of 08/19/2022) [facility] of Past illness Narrative* Problem Noted Date Resolved Date Pure hypercholesterolemia 2012 documented as of this encounter (statuses as of 12/29/2022) 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 note* Diagnosis Parkinson disease (HCC)- Primary Paralysis agitans Abnormality of gait and mobility Abnormality of gait Abnormal coordination Lack of coordination Irregular eye movements Other irregularities of eye movements documented in this encounter [facility] note* Diagnosis Parkinson disease (HCC)- Primary Paralysis agitans documented in this encounter [facility] for referral (narrative)No reason for referral [facility] Work [facility]: Summary Purpose Family History No Family History Records Found Relationship Condition Age at Onset Recorded Date/T [place] mother Cardiac disease Unknown father Parkinson's disease Unknown Advance Directives No Advanced Directives Records Found Advance Directive Response Recorded Date/ Time Advance Directives Yes March 21 7:13am Living Will Yes December 30, 2020 6:44pm Power of Surgeon'S Assistant Yes December 30 6:44pm Advance Directive Response Recorded Date/ Time Advance Directives Yes March 21 6:13am Living Will Yes December 30, 2020 5:44pm Power of Surgeon'S Assistant Yes December 30 5:44pm Advance Directive Response Recorded Date/ Time Living Will Yes December 30, 2020 5:44pm Power of Surgeon'S Assistant Yes December 30 5:44pm Living Will Yes August 22 10:23am Power of Surgeon'S Assistant Yes August 22, 2024 10:23am Name of Medical Power of Surgeon'S Assistant August 22, 2024 10:23am Advance Directives Yes March 21 6:13am Advance Directive Response Recorded Date/ Time Living Will Yes August 22 11:23am Power of Surgeon'S Assistant Yes August 22, 2024 11:23am Name of Medical Power of Surgeon'S Assistant August 22, 2024 11:23am Advance Directives Yes March 21 7:13am Advance Directive Response Recorded Date/ Time Living Will Yes December 30, 2020 6:44pm Do you have a Healthcare Power of Surgeon'S Assistant? Yes December 30, 2020 6:44pm Living Will Yes August 22 11:23am Do you have a Healthcare Power of Surgeon'S Assistant? Yes August 22, 2024 11:23am Name of Medical Power of Surgeon'S Assistant August 22, 2024 11:23am Advance Directives Yes March 21 7:13am Advance Directive Response Recorded Date/ Time Living Will Yes December 30, 2020 6:44pm Do you have a Healthcare Power of Surgeon'S Assistant? Yes December 30, 2020 6:44pm Advance Directives Yes March 21 7:13am Chief Complaint and Reason for Visit Chief Complaint 6-8 MO F/U (MOVED FR OM 10/19) IVIG IVIG IVIG IVIG Reason for Visit Atherosclerosis of c oronary artery of [place] heart without angina pectoris Hyperlipidemia Chief Complaint IVIG IVIG IVIG IVIG Chief Complaint IVIG IVIG IVIG 6 M FU IVIG MURMUR Reason for Visit Cardiac murmur, unsp ecified Carotid bruit Coronary artery disease with angina pectoris Hyperlipidemia Chief Complaint IVIG IVIG 6 M FU IVIG MURMUR [facility]S. RX HERE IVIG Reason for Visit Cardiac murmur, unsp ecified Carotid bruit Coronary artery disease with angina pectoris Hyperlipidemia Chief Complaint IVIG 6 M FU IVIG MURMUR IVIG PARKINSONS DISEASE IVIG P[facility]SONS. RX HERE Reason for Visit Cardiac murmur, unsp ecified Carotid bruit Coronary artery disease with angina pectoris Hyperlipidemia Chief Complaint 6 M FU IVIG MURMUR IVIG PARKINSONS DISEASE IVIG P[facility]SONS. RX HERE IVIG Reason for Visit Cardiac murmur, unsp ecified Carotid bruit Coronary artery disease with angina pectoris Hyperlipidemia Chief Complaint IVIG MURMUR IVIG PARKINSONS DISEASE IVIG [facility]SON[facility]. RX HERE IVIG BACK PAIN Chief Complaint MURMUR IVIG PARK[facility]SONS DISEASE IVIG [facility]SONS. RX HERE IVIG BACK PAIN IVIG CORD COMPRESSION, DDD Chief Complaint IVIG [facility]ARKINSONS DISEASE IVIG [facility]SONS. RX HERE IVIG BACK PAIN IVIG CORD COMPRESSION, DDD RIGHT SHOULDER XRAY - PAIN Chief Complaint PARKINSONS DISEASE IVIG P[facility]SONS. RX HERE IVIG BACK PAIN IVIG CORD COMPRESSION, DDD RIGHT SHOULDER XRAY - PAIN Chief Complaint PARKINSONS DISEASE IVIG PARKINSONS. RX HERE IVIG BACK PAIN IVIG CORD COMPRESSION, DDD RIGHT SHOULDER XRAY - PAIN IVIG Chief Complaint PARKINSONS DISEASE IVIG P[facility]SONS. RX HERE IVIG BACK PAIN IVIG CORD COMPRESSION, DDD RIGHT SHOULDER XRAY - PAIN IVIG PAIN RADIATING TO RIGHT SHOULDER Chief Complaint PARKINSONS. RX HERE IVIG BACK PAIN IVIG CORD COMPRESSION, DDD RIGHT SHOULDER XRAY - PAIN IVIG PAIN RADIATING TO RIGHT SHOULDER IVIG Chief Complaint IVIG CORD COMPRESSION, DDD RIGHT SHOULDER XRAY - PAIN IVIG PAIN RADIATING TO RIGHT SHOULDER IVIG IVIG RT ROTATOR CUFF. RX HERE Chief Complaint RIGHT SHOULDER XRAY - PAIN IVIG PAIN RADIATING TO RIGHT SHOULDER IVIG IVIG RT ROTATOR CUFF. RX HERE IVIG Chief Complaint IVIG PAIN RADIATING TO RIGHT SHOULDER IVIG IVIG RT ROTATOR CUFF. RX HERE IVIG IVIG Chief Complaint IVIG IVIG RT ROTATOR CUFF. RX HERE IVIG IVIG 9 M FU e order IVIG Reason for Visit Carotid bruit History of coronary artery stent placement Hyperlipidemia Chief Complaint RT ROTATOR CUFF. RX HERE IVIG IVIG 9 M FU e order IVIG IVIG Reason for Visit Carotid bruit History of coronary artery stent placement Hyperlipidemia Chief Complaint IVIG IVIG 9 M FU e order IVIG IVIG IVIG Reason for Visit Carotid bruit History of coronary artery stent placement Hyperlipidemia Chief Complaint 9 M FU e order IVIG IVIG IVIG BRUIT IVIG Reason for Visit Carotid bruit History of coronary artery stent placement Hyperlipidemia Chief Complaint IVIG BRUIT IVIG IVIG IVIG Chief Complaint IVIG IVIG IVIG IVIG IVIG Chief Complaint IVIG IVIG IVIG 9 M FU IVIG Reason for Visit Carotid bruit History of coronary artery stent placement Hyperlipidemia Chief Complaint IVIG IVIG IVIG 9 M FU IVIG IVIG Reason for Visit Carotid bruit History of coronary artery stent placement Hyperlipidemia Chief Complaint IVIG IVIG 9 M FU IVIG IVIG IVIG Reason for Visit Carotid bruit History of coronary artery stent placement Hyperlipidemia Chief Complaint Admit Date IVIG July 11, 2024 1 1:00am IVIG August 08, 2024 1 1:34am IVIG September 05, 2024 11 :12am INCOMPLETE COLONOSCOPY/TORTUOUS COLON Jose gutierrez 2024 8:06am IVIG October 10, 2024 9 :29am IVIG November 07, 2024 10:3 8am Chief Complaint Admit Date IVIG August 08, 2024 1 1:34am IVIG September 05, 2024 11 :12am INCOMPLETE COLONOSCOPY/TORTUOUS COLON Ja johnathanovergaard 2024 8:06am IVIG October 10, 2024 9 :29am IVIG November 07, 2024 10:3 8am Chief Complaint Admit Date IVIG August 08, 2024 1 1:34am IVIG September 05, 2024 11 :12am INCOMPLETE COLONOSCOPY/TORTUOUS COLON Jose mannovergaard 2024 8:06am IVIG October 10, 2024 9 :29am IVIG November 07, 2024 10:3 8am 1 Y FU November 28, 2024 10: 49am P[facility]'S RX HERE December 04, 2024 3:42 pm IVIG December 05, 2024 10:5 7am Reason for Visit Admit Date Carotid bruit November 28, 2024 10: 49am History of coronary artery stent placeme nt November 28, 2024 10:49am Hyperlipidemia November 28, 2024 10: 49am Chief Complaint Admit Date IVIG September 05, 2024 11 :12am INCOMPLETE COLONOSCOPY/TORTUOUS COLON Jose mannovergaard 2024 8:06am IVIG October 10, 2024 9 :29am IVIG November 07, 2024 10:3 8am 1 Y FU November 28, 2024 10: 49am IVIG December 05, 2024 10:5 7am BRUIT December 17, 2024 1:2 0pm [facility] RX HERE December 19, 2024 3:3 0pm Chief Complaint Admit Date INCOMPLETE COLONOSCOPY/TORTUOUS COLON Jose gutierrez 2024 8:06am IVIG October 10, 2024 9 :29am IVIG November 07, 2024 10:3 8am 1 Y FU November 28, 2024 10: 49am IVIG December 05, 2024 10:5 7am BRUIT December 17, 2024 1:2 0pm IVIG January 02, 2025 10:50a m [facility] HERE January 06, 2025 2:30pm Chief Complaint Admit Date IVIG October 10, 2024 9 :29am IVIG November 07, 2024 10:3 8am 1 Y FU November 28, 2024 10: 49am IVIG December 05, 2024 10:5 7am BRUIT December 17, 2024 1:2 0pm BRUIT December 17, 2024 1:5 8pm IVIG January 02, 2025 10:50a m [facility] HERE January 06, 2025 2:30pm IVIG February 05, 2025 9:31a m Chief Complaint Admit Date IVIG November 07, 2024 10:3 8am 1 Y FU November 28, 2024 10: 49am IVIG December 05, 2024 10:5 7am BRUIT December 17, 2024 1:2 0pm BRUIT December 17, 2024 1:5 8pm IVIG January 02, 2025 10:50a m [facility] HERE January 06, 2025 2:30pm IVIG February 05, 2025 9:31a m IVIG March 05, 2025 11:06 am Additional Source Comments (unrecognized sect ion and content) No Status Records FoundNo Status Records FoundNo Status Records FoundNo Status Records FoundNo Status Records Found INFORMATION SOURCE (unrecogn ized section and content) DATE CREATED AUTHOR 02/27/2018 [facility] DATE CREATED AUTHOR AUTHOR'S ORGANIZ ATION 08/09/2019 [facility] ([place]) DATE CREATED AUTHOR AUTHOR'S ORGANIZ ATION 12/30/2022 [facility] DATE CREATED AUTHOR AUTHOR'S ORGANIZ ATION 05/25/2024 [facility] DATE CREATED AUTHOR AUTHOR'S ORGANIZ ATION 03/07/2025 [facility] Goals (unrecognized section and content) Goals may be documented in a n alternate sectionGoals may be documented in an alternate sectionGoals may be documented in an alternate sectionGoals may be documented in an alternate sectionGoals may be documented in an alternate sectionGoals may be documented in an alternate sectionGoals may be documented in an alternate sectionGoals may be documented in an alternate sectionGoals may be documented in an alternate sectionGoals may be documented in an alternate sectionGoals may be documented in an alternate sectionGoals may be documented in an alternate sectionGoals may be documented in an alternate sectionGoals may be documented in an alternate sectionGoals may be documented in an alternate sectionGoals may be documented in an alternate sectionGoals may be documented in an alternate sectionGoals may be documented in an alternate sectionGoals may be documented in an alternate sectionGoals may be documented in an alternate sectionGoals may be documented in an alternate sectionGoals may be documented in an alternate sectionGoals may be documented in an alternate sectionGoals may be documented in an alternate sectionGoals may be documented in an alternate sectionGoals may be documented in an alternate sectionGoals may be documented in an alternate sectionGoals may be documented in an alternate sectionGoals may be documented in an alternate sectionGoals may be documented in an alternate sectionGoals may be documented in an alternate sectionGoals may be documented in an alternate sectionGoals may be documented in an alternate sectionGoals may be documented in an alternate section Source Comments (unrecognize d section and content) In the event this informatio n is protected by the Federal Confidentiality of Alcohol and Drug Abuse Patient Records regulations: The Federal rules restrict any use of the information to criminally investigate or prosecute any alcohol or drug abuse patient.[facility] the event this information is protected by the Federal Confidentiality of Alcohol and Drug Abuse Patient Records regulations: The Federal rules restrict any use of the information to criminally investigate or prosecute any alcohol or drug abuse patient.[facility] the event this information is protected by the Federal Confidentiality of Alcohol and Drug Abuse Patient Records regulations: The Federal rules restrict any use of the information to criminally investigate or prosecute any alcohol or drug abuse patient.[facility] Reason for Visit (unrecogniz ed section and content) Reason Comments Occupational Therapy Specialty Diagnoses / Procedures Referred By Contac t Referred To Contact [facility] Diagnoses Parkinson's disease Drivers evaluation Procedures NEW RS OT COMM REINTEGRATION Errol Larson MD [address] [place] [address] [facility] [address] [place] [id number] Referral ID Status Reason Start Date Expiration Date V isits Requested Visits Authorized [id number] Authorized 09/04/2021 09/03/2022 99 99 Reason Comments OT EVAL Reason Comments Consult Parkinsons Care Teams (unrecognized sec tion and content) Other Sports Official Relationship Specialty Start Date End Date Lacy Goldberg NO FORWARDING ADDRESS PCP - General 06/27/02 Other Sports Official Relationship Specialty Start Date End Date Lacy Goldberg NO FORWARDING ADDRESS PCP - General 06/27/02 Team Status: Active Member Role Status Dates Dr. Ethan Avendano MD Family Provider Active Dr. Ethan Avendano MD Primary Care Provider Active Team Status: Inactive Member Role Status Dates Dr. Ethan Avendano MD Primary Care Provide r, Attending Provider, Referring Provider Active Team Status: Inactive Member Role Status Dates Dr. Ethan Avendano MD Primary Care Provider, Attending P ashley Active Team Status: Inactive Member Role Status Dates Dr. Ethan Avendano MD Primary Care Provider Active Dr. Mat Jiang MD Attending Provider, Referring Pr ovider Active Team Status: Inactive Member Role Status Dates Dr. Ethan Avendano MD Primary Care Provider Active Dr. Leo Benoit MD Attending Provider, Referring Provider Active Team Status: Active Member Role Status Dates Dr. Ethan Avendano MD Primary Care Provider Active Joan Madhubish EPIC ANESTHESIA ANALYST, EPIC ANESTHESIA ANALYST-C Attending Provider, Referring Pr ovider Active Team Status: Inactive Member Role Status Dates Dr. Ethan Avendano MD Primary Care Provider Active Joan Prelindseysh EPIC ANESTHESIA ANALYST, EPIC ANESTHESIA ANALYST-C Attending Provider, Referring Pr ovider Active Team Status: Inactive Member Role Status Dates Dr. Ethan Avendano MD Primary Care Provider Active Dr. Jorden Ortiz DO Attending Provider, Referring Provider Active Other Sports Official Relationship Specialty Start Date End Date Lacy Goldberg NO FORWARDING ADDRESS PCP - General 06/27/02 Team Status: Inactive Member Role Status Dates Dr. Ethan Avendano MD Primary Care Provider, Referring P rovider Active Dr. Demian Ramsay MD Active Lory He PA, PA Attending Provider Active Team Status: Active Member Role Status Dates Dr. Ethan Avendano MD Primary Care Provider Active Lory He PA, PA Attending Provider Active Team Status: Inactive Member Role Status Dates Dr. Ethan Avendano MD Primary Care Provider Active Lory He PA, PA Attending Provider Active Team Status: Inactive Member Role Status Dates Dr. Ethan Avendano MD Primary Care Provider Active Dr. Blaine Lee MD Attending Provider, Referr ing Provider Active Team Status: Active Member Role Status Dates Dr. Ethan Avendano MD Primary Care Provider Active Dr. Ethan Barahona MD Attending Provider Active Team Status: Active Member Role Status Dates Dr. Ethan Avendano MD Primary Care Provider Active Lory He PA, PA Attending Provider, Referr ing Provider Active Team Status: Inactive Member Role Status Dates Dr. Ethan Avendano MD Primary Care Provider Active Lory He PA, PA Attending Provider, Referr ing Provider Active Team Status: Active Member Role Status Dates Dr. Ethan Avendano MD Primary Care Provider Active Dr. Ethan Barahona MD Attending Provider Active Lory He PA, PA Referring Provider Active Team Status: Inactive Member Role Status Dates Dr. Ethan Avendano MD Primary Care Provider, Referring P rovider Active Lory He PA, PA Attending Provider Active Team Status: Active Member Role Status Dates Dr. Ethan Avendano MD Primary Care Provider Active Team Status: Inactive Member Role Status Dates Dr. Ethan Avendano MD Primary Care Provider Active Start: July 11, 2024 End: July 11, 2024 Dr. Ethan Avendano MD Attending Provider Active St art: July 11, 2024 End: July 11, 2024 Dr. Ethan Avendano MD Referring Provider Active St art: July 11, 2024 End: July 11, 2024 Team Status: Inactive Member Role Status Dates Dr. Ethan Avendano MD Primary Care Provider Active Start: August 08, 2024 End: August 08, 2024 Dr. Ethan Avendano MD Attending Provider Active St art: August 08, 2024 End: August 08, 2024 Dr. Ethan Avendano MD Referring Provider Active St art: August 08, 2024 End: August 08, 2024 Team Status: Inactive Member Role Status Dates Dr. Ethan Avendano MD Primary Care Provider Active Start: August 23, 2024 End: August 23, 2024 Dr. Ethan Avendano MD Referring Provider Active St art: August 23, 2024 End: August 23, 2024 Dr. Jameel Oseguera MD Attending Provider Active Start: August 23, 2024 End: August 23, 2024 Team Status: Active Member Role Status Dates Dr. Ethan Avendano MD Primary Care Provider Active Start: August 23, 2024 Dr. Ethan Avendano MD Referring Provider Active St art: August 23, 2024 Dr. Jameel Osgeuera MD Attending Provider Active Start: August 23, 2024 Dr. Jameel Oseguera MD Other Provider Active Start: August 23, 2024 Team Status: Inactive Member Role Status Dates Dr. Ethan Avendano MD Primary Care Provider Active Start: September 05, 2024 End: September 05, 2024 Dr. Ethan Avendano MD Attending Provider Active St art: September 05, 2024 End: September 05, 2024 Dr. Ethan Avendano MD Referring Provider Active St art: September 05, 2024 End: September 05, 2024 Team Status: Inactive Member Role Status Dates Dr. Ethan Avendano MD Primary Care Provider Active Start: September 11, 2024 End: September 11, 2024 Dr. Jameel Oseguera MD Attending Provider Active Start: September 11, 2024 End: September 11, 2024 Dr. Jameel Oseguera MD Referring Provider Active Start: September 11, 2024 End: September 11, 2024 Team Status: Inactive Member Role Status Dates Dr. Ethan Avendano MD Primary Care Provider Active Start: October 10, 2024 End: October 10, 2024 Dr. Ethan Avendano MD Attending Provider Active St art: October 10, 2024 End: October 10, 2024 Dr. Ethan Avendano MD Referring Provider Active St art: October 10, 2024 End: October 10, 2024 Team Status: Active Member Role Status Dates Dr. Ethan Avendano MD Primary Care Provider Active Start: October 29, 2024 Dr. Ethan Avendano MD Attending Provider Active St art: October 29, 2024 Dr. Ethan Avendano MD Referring Provider Active St art: October 29, 2024 Team Status: Inactive Member Role Status Dates Dr. Ethan Avendano MD Primary Care Provider Active Start: November 07, 2024 End: November 07, 2024 Dr. Ethan Avendano MD Attending Provider Active St art: November 07, 2024 End: November 07, 2024 Dr. Ethan Avendano MD Referring Provider Active St art: November 07, 2024 End: November 07, 2024 Team Status: Inactive Member Role Status Dates Dr. Ethan Avendano MD Primary Care Provider Active Start: October 29, 2024 End: October 29, 2024 Dr. Ethan Avendano MD Attending Provider Active St art: October 29, 2024 End: October 29, 2024 Dr. Ethan Avendano MD Referring Provider Active St art: October 29, 2024 End: October 29, 2024 Team Status: Inactive Member Role Status Dates Dr. Ethan Avendano MD Primary Care Provider Active Start: November 28, 2024 End: November 28, 2024 Dr. Ethan Avendano MD Referring Provider Active St art: November 28, 2024 End: November 28, 2024 Dr. Demian Ramsay MD Attending Provider Active S tart: November 28, 2024 End: November 28, 2024 Team Status: Active Member Role Status Dates Dr. Ethan Avendano MD Primary Care Provider Active Start: December 04, 2024 KIM Mendenhall Attending Provider Active Star t: December 04, 2024 KIM Mendenhall Referring Provider Active Star t: December 04, 2024 Team Status: Inactive Member Role Status Dates Dr. Ethan Avendano MD Primary Care Provider Active Start: December 05, 2024 End: December 05, 2024 Dr. Ethan Avendano MD Attending Provider Active St art: December 05, 2024 End: December 05, 2024 Dr. Ethan Avendano MD Referring Provider Active St art: December 05, 2024 End: December 05, 2024 Team Status: Inactive Member Role Status Dates Dr. Ethan Avendano MD Primary Care Provider Active Start: December 17, 2024 End: December 17, 2024 Dr. Demian Ramsay MD Attending Provider Active S tart: December 17, 2024 End: December 17, 2024 Dr. Demian Ramsay MD Referring Provider Active S tart: December 17, 2024 End: December 17, 2024 Team Status: Active Member Role Status Dates Dr. Ethan Aevndano MD Primary Care Provider Active Start: December 19, 2024 KIM Mendenhall Attending Provider Active Star t: December 19, 2024 KIM Mendenhall Referring Provider Active Star t: December 19, 2024 Team Status: Inactive Member Role Status Dates Dr. Ethan Avendano MD Primary Care Provider Active Start: December 25, 2024 End: December 25, 2024 Dr. Ethan Avendano MD Attending Provider Active St art: December 25, 2024 End: December 25, 2024 Dr. Ethan Avendano MD Referring Provider Active St art: December 25, 2024 End: December 25, 2024 Team Status: Inactive Member Role Status Dates Dr. Ethan Avendano MD Primary Care Provider Active Start: January 02, 2025 End: January 02, 2025 Dr. Ethan Avendano MD Attending Provider Active St art: January 02, 2025 End: January 02, 2025 Dr. Ethan Avendano MD Referring Provider Active St art: January 02, 2025 End: January 02, 2025 Team Status: Inactive Member Role Status Dates Dr. Ethan Avendano MD Primary Care Provider Active Start: January 06, 2025 End: January 06, 2025 KIM Mendenhall Attending Provider Active Star t: January 06, 2025 End: January 06, 2025 KIM Mendenhall Referring Provider Active Star t: January 06, 2025 End: January 06, 2025 Team Status: Active Member Role Status Dates Dr. Marcio Newell MD Attending Provider Active Start: December 17, 2024 Dr. Demian Ramsay MD Referring Provider Active S tart: December 17, 2024 Team Status: Inactive Member Role Status Dates Dr. Ethan Avendano MD Primary Care Provider Active Start: February 05, 2025 End: February 05, 2025 Dr. Ethan Avendano MD Attending Provider Active St art: February 05, 2025 End: February 05, 2025 Dr. Ethan Avendano MD Referring Provider Active St art: February 05, 2025 End: February 05, 2025 Team Status: Active Member Role/Relationship Status Dates Dr. Ethan Avendano MD Primary Care Provider Active Team Status: Inactive Member Role/Relationship Status Dates Dr. Ethan Avendano MD Primary Care Provider Active Start: November 07, 2024 End: November 07, 2024 Dr. Ethan Avendano MD Attending Provider Active St art: November 07, 2024 End: November 07, 2024 Dr. Ethan Avendano MD Referring Provider Active St art: November 07, 2024 End: November 07, 2024 Team Status: Inactive Member Role/Relationship Status Dates Dr. Ethan Avendano MD Primary Care Provider Active Start: November 28, 2024 End: November 28, 2024 Dr. Ethan Avendano MD Referring Provider Active St art: November 28, 2024 End: November 28, 2024 Dr. Demian Ramsay MD Attending Provider Active S tart: November 28, 2024 End: November 28, 2024 Team Status: Inactive Member Role/Relationship Status Dates Dr. Ethan Avendano MD Primary Care Provider Active Start: December 05, 2024 End: December 05, 2024 Dr. Ethan Avendano MD Attending Provider Active St art: December 05, 2024 End: December 05, 2024 Dr. Ethan Avednano MD Referring Provider Active St art: December 05, 2024 End: December 05, 2024 Team Status: Inactive Member Role/Relationship Status Dates Dr. Ethan Avendano MD Primary Care Provider Active Start: December 17, 2024 End: December 17, 2024 Dr. Demian Ramsay MD Attending Provider Active S tart: December 17, 2024 End: December 17, 2024 Dr. Demian Ramsay MD Referring Provider Active S tart: December 17, 2024 End: December 17, 2024 Team Status: Active Member Role/Relationship Status Dates Dr. Marcio Newell MD Attending Provider Active Start: December 17, 2024 Dr. Demian Ramsay MD Referring Provider Active S tart: December 17, 2024 Team Status: Inactive Member Role/Relationship Status Dates Dr. Ethan Avendano MD Primary Care Provider Active Start: December 25, 2024 End: December 25, 2024 Dr. Ethan Avendano MD Attending Provider Active St art: December 25, 2024 End: December 25, 2024 Dr. Ethan Avendano MD Referring Provider Active St art: December 25, 2024 End: December 25, 2024 Team Status: Inactive Member Role/Relationship Status Dates Dr. Ethan Avendano MD Primary Care Provider Active Start: January 02, 2025 End: January 02, 2025 Dr. Ethan Avendano MD Attending Provider Active St art: January 02, 2025 End: January 02, 2025 Dr. Ethan Avendano MD Referring Provider Active St art: January 02, 2025 End: January 02, 2025 Team Status: Inactive Member Role/Relationship Status Dates Dr. Ethan Avendano MD Primary Care Provider Active Start: January 06, 2025 End: January 06, 2025 KIM Mendenhall Attending Provider Active Star t: January 06, 2025 End: January 06, 2025 KIM Mendenhall Referring Provider Active Star t: January 06, 2025 End: January 06, 2025 Team Status: Inactive Member Role/Relationship Status Dates Dr. Ethan Avendano MD Primary Care Provider Active Start: February 05, 2025 End: February 05, 2025 Dr. Ethan Avendano MD Attending Provider Active St art: February 05, 2025 End: February 05, 2025 Dr. Ethan Avendano MD Referring Provider Active St art: February 05, 2025 End: February 05, 2025 Team Status: Inactive Member Role/Relationship Status Dates Dr. Ethan Avendano MD Primary Care Provider Active Start: March 05, 2025 End: March 05, 2025 Dr. Ethan Avendano MD Attending Provider Active St art: March 05, 2025 End: March 05, 2025 Dr. Ethan Avendano MD Referring Provider Active St art: March 05, 2025 End: March 05, 2025 FOR RECORDS PERTAINING TO PATIENTS WHO ARE [...] BE BASED ON THE PRIMARY CLINICAL RECORDS. [facility]. provides no warranty or guarantee of the accuracy or completeness of information in this document.
[2025-03-15 22:33] LABS: Hematocrit 42.3 % (40-54); Hemoglobin 14.6 g/dL (13.0-16.5); Immature Granulocytes Count 0.030 X10^3/uL (0.0-0.0); Mean Corp Hgb Conc 34.5 g/dL (32-36); Mean Corpuscular Volume 89.2 fL (80-94); Mean Platelet Vol. 11.1 fl (6.2-12.0); NRBC Flagged by Analyzer 0 % (0-5); Platelet Count 148 K/mm3 (150-450); RBC Distribution Width CV 12.8 % (11.6-14.6); RBC Distribution Width SD 41.8 fl (35.1-43.9); Red Blood Count 4.74 M/mm3 (4.6-6.2); White Blood Count 5.9 K/mm3 (4.4-11.0)
[2025-03-15] MEDS: 0.9% Normal Saline (1000mL) 1,000 ML 999 ML IV (22:44)
[2025-03-15 23:16] VITALS: BP 136/77; PULSE 81; RESP 16; O2SAT 99
[2025-03-15 23:46] LABS: AST(SGOT) 26 U/L (<=37); Alanine Aminotransfer ALT/SGPT 17 U/L (<=46); Albumin, Serum 4.4 g/dL (3.4-4.8); Alkaline Phosphatase 84 U/L (40-129); Anion Gap 14 (5-15); BUN 22 mg/dL (4-19); BUN/Creat Ratio 23.2 RATIO (10-20); Calcium,Total 9.8 mg/dL (7.6-11.0); Carbon Dioxide 24.2 mmol/L (21.0-32.0); Chloride 101 mmol/L (98-108); Estimated Creatinine Clearance 66.84 ml/min (50-250); Globulin 2.8 g/dL (2.2-4.2); Glucose 170 mg/dL (70-99); Lipase 20 U/L (13-75); Potassium 3.7 mmol/L (3.3-5.1)
[2025-03-16 01:21] VITALS: BP 128/75; PULSE 95; RESP 17; O2SAT 97
[2025-03-16 01:33] LABS: Mucous, Urine 0 SEEN /hpf (<or=2+); Red Blood Cells-Urine 0 SEEN /hpf (0-5); Squamous Epithelial Cells - UA 0 SEEN /hpf (0-5)
[2025-03-16 01:35] LABS: Color, Urine Yellow (Yellow); Glucose, Dipstick Normal (Normal); Ketone-Dipstick 5 mg/dl (Negative); Leukocyte Esterase-Dipstick Negative /ul (Negative); Nitrite-Dipstick Negative (Negative); Occult Blood-Urine Negative /ul (Negative); Protein-Dipstick 30 mg/dl (Negative); Specific Gravity, Urine 1.010 (1.002-1.030); Urine Bilirubin Dipstick Negative (Negative)
--- NOTE | 2025-03-16 02:02 | PCA ---
[facility] WAS CALLED FOR PT TRANSFER, WAITING CALL BACK. [facility] WERE BOTH CALLED, BEDS NOT AVAILABLE UNTIL ATLEAST MIDDAY 03/16.
[2025-03-16 03:30] VITALS: BP 116/75; PULSE 88; RESP 18; O2SAT 97
--- NOTE | 2025-03-16 04:17 | PCA ---
PT ACCEPTED AT [facility] BY LOCAL TRANSPORT SET UP.
[2025-03-16 04:39] VITALS: BP 116/75; PULSE 88; RESP 18; TEMP 36.8; O2SAT 97
== END 2025-03-16 05:15 | disposition short-term general hospital (02) ==
LOC: ED 22:30
PROVIDERS: Emergency Provider Surgery; PCP Family Medicine; Visit Provider Surgery
DX: K56.2 Volvulus (principal); G20.A1 Parkinson's disease without dyskinesia, without mention of fluctuations; I25.10 Atherosclerotic heart disease of native coronary artery without angina pectoris; E78.5 Hyperlipidemia, unspecified; K59.00 Constipation, unspecified; Z95.5 Presence of coronary angioplasty implant and graft; Z79.82 Long term (current) use of aspirin; Z79.899 Other long term (current) drug therapy
CPT/HCPCS: 74177; 80053; 81001; 83605; 83690; 85025; 96360; 96361; 99284; Q9967; A4216

== ENCOUNTER 2025-03-25 20:40 | Observation (INO) | payer MEDICARE, OTHER, SELFPAY ==
[2019-03-11 14:03] VITALS: BMI 24.3
[2025-03-25 20:42] VITALS: BP 153/76; PULSE 118; RESP 27; TEMP 37.4; O2SAT 98; BMI 23.0
--- NOTE | 2025-03-25 21:05 | EKG12_ITS ---
Test Reason : Blood Pressure : */* mmHG Vent. Rate : 111 BPM Atrial Rate : 111 BPM P-R Int : 148 ms QRS Dur : 96 ms QT Int : 336 ms P-R-T Axes : 74 74 68 degrees QTcB Int : 456 ms Sinus tachycardia Otherwise normal ECG Confirmed by Jorden Hong ([id number]), marketing editor JOON MORALES ([id number]) on 03/26/2025 1:58:23 PM Referred By: MEGHNA Confirmed By: Jorden Hong
[2025-03-25 21:24] LABS: Hematocrit 38.6 % (40-54); Hemoglobin 13.2 g/dL (13.0-16.5); Immature Granulocytes Count 0.060 X10^3/uL (0.0-0.0); Mean Corp Hgb Conc 34.2 g/dL (32-36); Mean Corpuscular Volume 90.4 fL (80-94); Mean Platelet Vol. 10.0 fl (6.2-12.0); NRBC Flagged by Analyzer 0 % (0-5); POSITIVE DIFFERENTIAL YES; Platelet Count 162 K/mm3 (150-450); RBC Distribution Width CV 13.2 % (11.6-14.6); RBC Distribution Width SD 43.5 fl (35.1-43.9); Red Blood Count 4.27 M/mm3 (4.6-6.2); White Blood Count 5.6 K/mm3 (4.4-11.0)
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
--- NOTE | 2025-03-25 21:35 | CT_ITS ---
PROCEDURE: BRAIN/HEAD WITHOUT CONTRAST 03/25/2025 REASON FOR EXAM: LOC TECHNIQUE: BRAIN/HEAD WITHOUT CONTRAST Coronal and Sagittal reconstruction series were provided. One or more dose reduction techniques were used (e.g., Automated exposure control, adjustment of the mA and/or kV according to patient size, use of iterative reconstruction technique. RADIATION DOSE SUMMARY: CTDlvol: 45 mGy DLP: 880 mGycm COMPARISON: 06/15/2019 FINDINGS: Diffuse atrophy. Basal ganglia infarcts. Mild white matter change. No acute abnormal brain densities. No intracranial hemorrhage. No hydrocephalus or midline shift. No acute scalp or skull pathology. Bilateral lens extraction. Left maxillary sinusitis CT/Brain/Head without Contrast IMPRESSION: No acute intracranial findings. Reading Location: [place] [id number]
[2025-03-25 21:41] VITALS: BP 140/86; PULSE 109; RESP 18; O2SAT 100
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
--- NOTE | 2025-03-25 21:43 | RAD_ITS ---
PROCEDURE: CHEST 1 VIEW (PORTABLE) 03/25/2025 REASON FOR EXAM: ALOC TECHNIQUE: AP portable view of the chest. COMPARISON: 06/10/2019 FINDINGS: The lungs are well aerated. No focal airspace consolidation, pneumothorax or pleural effusion is seen. Remaining lung markings otherwise appears clear. Heart size and great vessels are is within normal limits. The visualized osseous thorax appears intact. Spondylotic change involving the thoracic spine. EKG wires overlie the chest. RAD/Chest 1 View (Portable) IMPRESSION: No acute cardiopulmonary process identified. Reading Location: [facility]
--- OUTSIDE RECORDS SUMMARY | 2025-03-25 22:03 | XMS RPT_ITS | CCD ---
Author Organization [facility] Providers Care Registrar [employer] Name Role Phone Isaac Prater Unavailable Unavailable *SELF, REFERRED Unavailable Unavailable Lacy Goldberg Unavailable Unavailable Dr. Ethan Avendano Primary Care Provider [phone] Dr. Ethan Avendano Referring Provider [phone] Dr. Demian Ramsay Attending Provider [phone] Ethan Avendano Primary Care Provider Dr. Ethan Avendano Referring Provider [phone] KIM Flores Attending Provider Dr. Demian Ramsay Attending Provider [phone] Ethan Barahona Attending Provider [phone] KIM Flores Referring Provider Dr. Ethan Avendano Primary Care Provider [phone] Ethan Avendano Referring Provider [phone] KIM Flores Attending Provider Dr. Demian Ramsay Attending Provider [phone] Ethan Barahona Attending Provider [phone] KIM Flores Referring Provider Dr. Ethan Avendano Primary Care Provider [phone] Lacy Goldberg Primary Care Provider Unavaila ble LACY GOLDBERG Primary Care Unavailable LATISHA ROBLES Attending Unavailable Dr. Ethan Avendano Primary Care Provider Dr. Ethan Avendano Referring Provider [phone] KIM Flores Attending Provider Dr. Ethan Barahona Attending Provider [phone] Ethan Avendano Primary Care Provider Neri ALVAREZ, PA Lory Taveras Referring Provider Dr. Ethan Avendano Primary Care Provider Dr. Ethan Avendano Referring Provider He PA, PA Lory Taveras Attending Provider Dr. Ethan Avendano Primary Care Provider Dr. Ethan Avendano Referring Provider He KIM, PA Lory Taveras Attending Provider FLORENCE EUGENE Attending Unavailable ETHAN AVENDANO Referring Unavailable LACY GOLDBERG Primary Care Unavailable Juan Alberto MACDONALD, Dr. Aragon Primary Care Provider Dr. Ethan Avendaon MD Attending Provider Dr. Ethan Avendano MD Referring Provider Ana Rosa MACDONALD, Dr. Jorgensen Attending Provider [phone] Ana Rosa MACDONALD, Dr. Jorgensen Other Provider Ana Rosa MACDONALD, Dr. Jorgensen Referring Provider Dr. Ethan Avendano MD Primary Care Provider Dr. Ethan Avendano MD Attending Provider Dr. Ethan Avendano MD Referring Provider Ana Rosa MACDONALD, Dr. Jorgensen Attending Provider Ana Rosa MACDONALD, Dr. Jorgensen Other Provider Ana Rosa MACDONALD, Dr. Jorgensen Referring Provider Devendra MACDONALD, Dr. Arciniega Attending Provider Sandra Reis Attending Provider Sandra Reis Referring Provider Dr. Ethan Avendano MD Primary Care Provider Juan Alberto MACDONALD, Dr. Aragon Referring Provider Dr. Ethan Avendano MD Attending Provider Devendra MACDONALD, Dr. Arciniega Referring Provider [facility] PA, Sandra Attending Provider Nvight PA, Sandra Referring Provider Juan Alberto MACDONALD, Dr. Aragon Primary Care Provider Ana Rosa MACDONALD, Dr. Jorgensen Attending Provider [phone] Juan Alberto MACDONALD, Dr. Aragon Attending Provider [...] Juan Alberto MACDONALD, Dr. Aragon Referring Provider Juan Alberto MACDONALD, Dr. Aragon Primary Care Provider Juan Alberto MACDONALD, Dr. Aragon Referring Provider [phone] Juan Alberto MACDONALD, Dr. Aragon Attending Provider Dr. Brijesh Frederick DO Emergency Provider Jameel Oseguera Primary Care Provider NONE, PCP Referring Unavailable JAMEEL OSEGUERA Primary Care Unavailable MA, BURROUGHS Admitting Unavailable MA, BURROUGHS Attending Unavailable Avendano, Ethan Referring Unavailable Avendano, Ethan Primary Care Unavailable Avendano, Ethan Attending Unavailable Avendano, Ethan Primary Care Unavailable Devendra, Mobile Referring Unavailable Devendra, Mobile Attending Unavailable Vaendano, Ethan Referring Unavailable Avendano, Ethan Attending Unavailable [...] Ethan Referring Unavailable Jameel Oseguera Attending Unavailable Avnedano, Ethan Referring Unavailable Avendano, Ethan Attending Unavailable Avendano, Ethan Primary Care Unavailable Avendano, Ethan Referring Unavailable Avendano, Ethan Attending Unavailable Avendano, Ethan Primary Care Unavailable Avendano, Ethan Primary Care Unavailable Avendano, Ethan Referring Unavailable Jameel Oseguera Attending Unavailable Avendano, Ethan Primary Care Unavailable Avendano, Ethan Referring Unavailable Jameel Oseguera Attending Unavailable Jameel Oseguera Consulting Unavailable Avendano, Ethan Primary Care Unavailable Avendano, Ethan Referring Unavailable Demian Ramsay Attending Unavailable Avendano, Ethan Primary Care Unavailable Avendano, Ethan Referring Unavailable Avendano, Ethan Attending Unavailable Avendano, Ethan Primary Care Unavailable Avendano, Ethan Referring Unavailable Avendano, Ethan Attending Unavailable Avendano, Ethan Primary Care Unavailable Avendano, Ethan Referring Unavailable Avendano, Ethan Attending Unavailable Brijesh Frederick Attending Unavailabl e Avendano, Ethan Primary Care Unavailable Waight, Sandra Referring Unavailable WaightHafsaSandra Attending Unavailable Avendano, Ethan Primary Care Unavailable RosaBlaine Referring Unavailable RosaBlaine Attending Unavailable Avendano, Ethan Primary Care Unavailable Avendano, Ethan Primary Care Unavailable Avendano, Ethan Referring Unavailable Avendano, Ethan Attending Unavailable Avendano, Ethan Primary Care Unavailable Jameel Oseguera Attending Unavailable Ana Rosa, Jameel Referring Unavailable Avendano, Ethan Primary Care Unavailable Avendano, Ethan Referring Unavailable Avendano, Ethan Attending Unavailable Avendano, Ethan Primary Care Unavailable Avendano, Ethan Referring Unavailable Avendano, Ethan Attending Unavailable Allergies Allergy Classification Reported Allergen(s) Allergy Type Date of Onset Reaction(s) Facility (3 sources) dust,mold grass [Other] Propensity to adverse reactions 6 [facility] (2 sources) OTHER; Translations: [OTHER] Propensity to adverse reactions (disorder) 6 [facility] (2 sources) Seasonal allergy Propensity to adverse reactions 5 [facility] Medications Current Medications Medication Drug Class(es) Dates Sig (Normalized) Sig (Original) 8 hr acetaminophen 650 mg extended release oral tablet (7 sources) Start: 03-20-2025 End: 03-30-2025 take 1 tablet by mouth every eight hours as needed for pain and pain acetaminophen (Tylenol 8 Hour) 650 MG ER tablet Take 1 tablet (650 mg) by mouth every 8 hours as needed for mild pain (1-3) or moderate pain (4-6) for up to 10 days. Do not crush, chew, or split. 30 tablet 03/20/2025 03/30/2025 Active Start: 03-20-2025 End: 03-21-2025 take 1 tablet by mouth every six hours as needed for pain 650 mg, Oral, Every 6 hours PRN, mild pain (1-3), Starting on Niki 03/20/25 at 0958, Maximum dose of acetaminophen is 4000 mg from all sources in 24 hours. Start: 03-10-2016 acetaminophen (TYLENOL) 325 mg tablet 2 tablets 30 minutes prior to IVIG infusions and every 4 hours as needed 30 tablet 1 03/10/2016 Active Comment on above: 2 tablets 30 minutes prior to IVIG infusions and every 4 hours as needed aspirin 81 mg delayed release oral tablet [...] MG tablet Discon tinued 162 mg PO DAILY@799June 10, 2013 12:00am March 04, 2019 7:15pm Start: 06-10-2013 End: 03-04-2019 take 162 mg by mouth once daily Aspirin Discontinued 162 MG PO DAILY@799June 10, 2013 12:00am March 04, 2019 7:15pm Comment on above: Take 1 tablet by anthony th once daily. Bupropion Hcl 100 mg tablet sustained-release 12 hr (6 sources) Start: take 1 tablet by mouth once daily in the morning Bupropion Hcl 100 mg tablet sustained-release 12 hr Active 100 mg PO EVERY MORNING November 28, 2024 12:00am escitalopram 5 mg oral tablet (20 sources) [...] December 30, 2020 12:00am immunoglobulin g, human 04426 mg injection (20 sources) Human Immunoglobulin G Start: 03-04-20 19 Immun Glob H-Ciq-Drrx-Iga 0-50 10 gram recon soln Active 20 g .Route .y2zurkg 0 March 04, 2019 12:00am Common variable [...] hydrochloride 5 mg oral tablet (20 sources) V-jbsury-C-aspartate Receptor Antagonist Start: 02-02-20 take 2 tablets [...] Multivitamin With Folic Acid 1 TABLET tablet (8 sources) Start: 06-10-2013 take 1 tablet by [...] do not exceed 3 doses per episode pantoprazole (2 sources) Proton Pump Inhibitor Start: 03-21-2025 End: 03-21-2025 pantoprazole (ProtoNix) EC tablet 40 mg rosuvastatin calcium 40 mg oral tablet (20 [...] on above: TAKE 1 TABLET BY ANTHONY TH EVERY DAY with supper. Completed/Discontinued Medications Medication Drug Class(es) Dates Sig (Normalized) Sig (Original) [id number] 200 actuat albuterol 0.09 mg/actuat metered dose inhaler (20 sources) beta2-Adrenergic Agonist Start: 01-30-2019 End: 04-29-2019 Albuterol Sulfate 90 mcg/actuation HFA aerosol inhaler Discontinued 2 NMA INHALATION Q4H as needed for shortness of breath or wheezing 09 06January 30, 2019 12:00am April 29, 2019 3:24pm [...] 10, 2013 12:00am June 11, 2013 1:15pm calcium chloride 0.0014 meq/ml / potassium chloride 0.004 meq/ml / sodium chloride 0.103 meq/ml / sodium lactate 0.028 meq/ml injectable solution (4 sources) Start: 03-16-2025 End: 03-19-2025 take 100 mL intravenously every hour 100 mL/hr, IntraVENous, Continuous, Starting on Mon03/18/25 at 2115, For 12 hours, Phase II/On Unit carbidopa 25 mg / levodopa 250 mg oral tablet (20 sources) Aromatic Amino Acid Decarboxylation Inhibitor, Aromatic Amino Acid Start: 03-16-2025 End: 03-21-2025 take 1 tablet by mouth twice daily 1 tablet, Oral, 2 times daily, First dose on Mon03/16/25 at 1800 Start: 11-28-2024 take 5 tablets by mo [facility] once daily Carbidopa-Levodopa 25-100 mg tablet Active 1 {tbl} PO .qid November 28, 2024 10:54am 5 tabs daily Start: 02-01-2023 End: 11-28-2024 Carbidopa-Levodopa 25-100 mg tablet Discontinued 1 {tbl} PO .qid February 01, 2023 12:00am November 28, 2024 10:56am Start: 02-01-2023 [facility] Carbidopa-Levodopa Active 1 TABLET [...] 22, 2019 1:00am October 10, 2023 11:27am carbidopa-levodo pa (Parcopa) 25-250 MG disintegrating tablet Take 1 tablet by mouth 4 times daily. Take 1 and 1/2 tab at 6am. 1 tab at 10am. 1 and 1/2 tab at 2pm. 1 tab at 6pm Active take 1 tablet by anthony th four times daily carbidopa-levodopa CR (SINEMET CR) 50-200 mg per tablet Take 1 tablet by mouth four times daily. 0 Active Comment on above: Take 1 tablet by anthony th four times daily. celecoxib 200 mg oral capsule (20 sources) Nonsteroidal Anti-inflammatory Drug Start: End: take 1 capsule by mouth twice daily [...] oral capsule (3 sources) Vitamin D Start: 012 End: take 1 capsule by mouth once daily Cholecalciferol, Vitamin D3, 1,000 unit Cap Take 1 capsule by mouth once daily. 1 capsule 0 01/27/2012 12/29/2022 Discontinued Comment on above: Take 1 capsule by mo [facility] once daily. ciprofloxacin 500 mg oral tablet (20 sources) Quinolone Antimicrobial Start: 021 End: take 1 tablet by mouth twice daily Ciprofloxacin Hcl (Cipro) 500 mg tablet Discontinued 500 mg PO TWICE A DAY 14 December 30, 2020 12:00am February 16, 2021 10:06am clopidogrel 75 mg oral tablet (20 sources) P2Y12 Platelet Inhibitor Start: 021 End: 023 take 1 tablet by mouth once daily [...] 6 hours as needed (for allergic reaction). docusate sodium 10 mg/ml oral suspension (2 sources) Start: 2024 End: 2024 take 50 mg by mouth once daily 50 mg, Oral, Daily, First dose on Mon03/19/25 at 0900, Phase II/On Unit 0.4 ml enoxaparin sodium 100 mg/ml prefilled syringe (2 sources) Low Molecular Weight Heparin Start: 2024 End: 2024 inject 40 mg by subcutaneous injection every twenty-four hours 40 mg, SubCUTAneous, Every 24 hours scheduled (Daily), First dose on Mon03/16/25 at 1100, Indication of Use: Prophylaxis-DVT/PE, Indications: Prophylaxis of Venous Thromboembolism erythromycin 0.005 mg/mg ophthalmic ointment (3 sources) Macrolide, Macrolide Antimicrobial Start: 2020 End: 2022 erythromycin (ROMYCIN) 5 mg/gram (0.5 %) ophthalmic ointment Use 1 application in the right eye daily at bedtime. 3.5 g 0 08/27/2021 12/29/2022 Discontinued Comment on above: Use 1 application in the right eye daily at bedtime. fenofibrate 48 mg oral tablet (3 sources) Peroxisome Proliferator Receptor alpha Agonist Start: 2015 End: 2022 take 1 tablet by mouth once daily fenofibrate nanocrystallized (TRICOR) 48 mg tablet Take 1 tablet by mouth once daily. 90 tablet 3 06/25/2016 12/29/2022 Discontinued Comment on above: Take 1 tablet by anthony once daily. finasteride 5 mg oral tablet (20 sources) 5-alpha Reductase Inhibitor Start: 2020 End: 2020 take 1 tablet by mouth once daily Finasteride 5 mg tablet Discontinued 5 mg PO DAILY January 05, 2021 12:00am February 16, 2021 10:07am gabapentin 300 mg oral capsule (20 sources) Anti-epileptic Agent Start: 2020 End: 2024 take 1 capsule by mouth three times [...] 16, 2021 10:07am take 1 capsule by mo [facility] three times daily gabapentin (NEURONTIN) 400 mg [...] 2021 9:43am Guar Gum 1 GM tablet,chewable (8 sources) Start: 06-10-2013 End: 01-05-2021 take 1 tablet by mouth twice daily Guar Gum 1 GM tablet,chewable Discontinued 2 g PO TWICE A DAY June 10, 2013 12:00am January 05, 2021 9:43am Start: 06-10-2013 End: 01-05-2021 take 1 tablet by mouth twice daily Guar Gum 1 GM tablet,chewable Discontinued 2 g PO TWICE A DAY June 09, 2013 11:00pm January 05, 2021 8:43am 1 ml haloperidol 5 mg/ml prefilled syringe (6 sources) Typical Antipsychotic Start: 03-19-2025 End: 03-20-2025 0.5 mg, IntraMUSCular, Every 30 min PRN, agitation, Starting on Mon03/19/25 at 1658, For 24 hours, Haloperidol Loading Dose Give as needed for agitation until the patient is calm. Not to exceed 5 mg total in 24 hours. Notify provider if greater than 5 mg is required in any 24 hour period. Discontinue order when loading phase is complete. Because of the risk of TdP and QT prolongation, ECG monitoring is recommended if haloperidol is given IV. Start: 03-16-2025 End: 03-16-2025 1 mg, IntraMUSCular, Once, O n 03/16/25 at 1845, For 1 dose, IM route of administration preferred. Because of the risk of TdP and QT prolongation, ECG monitoring is recommended if haloperidol is given IV Start: 03-16-2025 End: 03-16-2025 Starting on 03/16/25 at 1 832, For 1 dose, Oyster, [facility]: tamikainet override iopamidol (Isovue-370) 76 % injection 75 mL (2 sources) Start: 03-16-2025 End: 03-16-2025 take 75 mL intravenously once as needed 75 mL, IntraVENous, IMG once PRN, contrast, Starting on 03/16/25 at 0753, For 1 dose Ivig (20 sources) Start: 06-10-2013 End: 03-04-2019 [...] 12:00am March 04, 2019 7:19pm Ivig Iv.Soln (8 sources) Start: 06-10-2013 End: 03-04-2019 take 20 [...] mg tablet Discontinued 2.5 mg PO DAILY December 04, 2020 4:26pm January 05, 2021 10:21am 1 ml LORazepam 2 mg/ml injection (2 sources) Benzodiazepine Start: 03-18-2025 End: 03-18-2025 0.5 mg, IntraVENous, Once, On Mon03/18/25 at 2330, For 1 dose, For IV doses dilute dose with 1ml NS. Start: 03-18-2025 End: 03-18-2025 0.5 mg, IntraVENous, Once, O n Mon03/18/25 at 2330, For 1 dose, For IV doses dilute dose with 1ml NS. melatonin 10 mg disintegrating oral tablet (1 source) melatonin 10 mg ODT melatonin 10 mg disintegrating tablet TAKE 1 TABLET AT AT BEDTIME 0 Active Comment on above: melatonin 10 mg disi ntegrating tablet TAKE 1 TABLET AT AT BEDTIME 24 hr metoprolol succinate 25 mg extended release oral tablet (20 sources) beta-Adrenergic Leonie Start: 021 End: 025 take 1 tablet by mouth once daily [...] hr Discontinued 25 mg PO DAILY 30 6 April 29, 2019 3:42pm March 30, 2020 11:16am Start: 03-06-2019 End: 04-29-2019 take 1 tablet by mouth once daily Metoprolol Succinate (Toprol Xl) 50 mg tablet extended release 24 hr Discontinued 50 mg PO DAILY 60 6 March 06, 2019 12:00am April 29, 2019 3:43pm Comment on above: Take 25 mg by mouth once daily. metroNIDAZOLE 500 mg oral tablet (6 sources) Nitroimidazole Antimicrobial Start: End: take 1 tablet by mouth once 500 mg, Oral, Once, On Mon03/17/25 at 2200, For 1 dose, At 10 pm take 500 mg tablet , Suspected Indication (Select all that apply): Surgical Prophylaxis 1 ml naloxone hydrochloride 0.4 mg/ml injection (2 sources) Opioid Antagonist Start: End: 0.4 mg, IntraVENous, Every 5 min PRN, opioid reversal, respiratory depression, Starting on Mon03/16/25 at 1059, +++ For RR neomycin sulfate 500 mg oral tablet (6 sources) Aminoglycoside Antibacterial Start: End: take 1000 mg by mouth once 1,000 mg, Oral, Once, On Mon03/17/25 at 1400, For 1 dose, At 2 pm take 1000 mg neomycin with clear liquid , Suspected Indication (Select all that apply): Surgical Prophylaxis ondansetron ODT (Zofran-ODT) disintegrating tablet 4 mg (2 sources) Start: End: take 1 tablet by mouth every eight hours as needed for nausea and vomiting ondansetron ODT (Zofran-ODT) disintegrating tablet 4 mg oxyCODONE (2 sources) Opioid Agonist Start: End: take 1 tablet by mouth every four hours as needed for pain oxyCODONE (Roxicodone) immediate release tablet 2.5 mg pantoprazole (ProtoNix) 40 mg in sodium chloride (PF) 0.9 % 10 mL injection (2 sources) Start: End: 40 mg, IntraVENous, Administer over 2 Minutes, Daily, First dose on Mon03/16/25 at 1100, Reconstitute with 10 ml NS. Vial expires 2 hrs after reconstitution. polyethylene glycol 3350 53383 mg powder for oral solution (4 sources) Osmotic Laxative Start: End: 238 g, Oral, Once, On Mon03/17/25 at 1800, For 1 dose, At 6 pm drink entire 238 gram bottle of Miralax in 64 ounces of fluid (no red, purple or orange). Drink 8 ounce glass every 15-20 minutes until finished Start: 03-16-2025 End: 03-18-2025 17 g, Oral, 2 times daily, F irst dose on [place] 03/16/25 at 0950 potassium chloride 20 meq powder for oral solution (2 sources) Start: 03-20-2025 End: 03-20-2025 take 1 [oz_av] by mouth once 40 mEq, Oral, Once, On [facility] 03/20/25 at 0600, For 1 dose, Dissolve each packet in 4 ounces of water = 5 mEq per 1 oz fluid., Indications: Hypokalemia pravastatin sodium 40 mg oral tablet (20 sources) HMG-CoA Reductase Inhibitor Start: 08-11-2017 End: 03-15-2019 take 1 tablet by mouth once daily Pravastatin 40 MG tablet Discontinued 40 mg PO DAILY August 11, 2017 1:00am March 15, 2019 11:32am primidone 50 mg oral tablet (20 sources) Anti-epileptic Agent Start: 08-09-2019 End: 08-22-2019 take 1 tablet by mouth twice daily Primidone 50 MG tablet Discontinued 50 mg PO TWICE A DAY August 09, 2019 1:00am August 22, 2019 10:05am 50 ml sodium chloride 9 mg/ml injection (5 sources) Start: 03-16-2025 End: 03-16-2025 take 125 mL intravenously every hour 125 mL/hr, IntraVENous, Continuous, Starting on [place] 03/16/25 at 0720 Start: 03-10-2016 0.9 % SODIUM C HLORIDE (NACL 0.9%) 0.9% solution 500 to 1000 ml IV bolus as needed for hypotension associated with a reaction to IVIG 1000 mL 0 03/10/2016 Active Comment on above: 500 to 1000 ml IV oskar logan as needed for hypotension associated with a reaction to IVIG tamsulosin hydrochloride 0.4 mg oral capsule (20 sources) alpha-Adrenergic Leonie Start: 03-12-20 End: 12-25-19 take 1 capsule by mouth once daily Tamsulosin 0.4 MG capsule Discontinued 0.4 mg PO DAILY 7 March 12, 2019 12:00am December 24, 2020 10:44am traMADol hydrochloride 50 mg oral tablet (20 sources) Opioid Agonist Start: 02-02-20 End: 11-29-19 take 1 tablet by mouth twice daily as needed for pain Tramadol 50 mg tablet Discontinued 50 mg PO TWICE A DAY as needed for pain February 01, 2023 12:00am November 28, 2024 10:56am Problems Active Problems Problem Classification Problem Date Documented Da te Episodic/Chronic Abdominal pain (1 source) Unspecified abdominal pain; Translations: [Unspecified abdominal pain] Onset: 03-21-2025 Episodic Administrative/social admission (1 source) Encounter for administrative examinations, unspecified; Translations: [Encounter for administrative examinations, unspecified] Onset: 02-11-2025 Episodic Coronary atherosclerosis and other heart disease (20 sources) Disorder of coronary artery; 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 Comment on above: [id number] RCA w / 2.5 x 12 mm Elunir Stent and MILANA-Mid RCA w/ 3.0 x 33 mm Elunir Stent 03/11/19; PCI-MILANA- Mid LAD w/ 3.0 x 16 mm Synergy MR Stent 03/21/2019 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; Translations: [Other specified congenital [...] GLOBIN GAMMA IV E VERY 4 WEEKS Intestinal obstruction without hernia (8 sources) Sigmoid volvulus; Translations: [Volvulus] Onset: 03-16-2025 03-16-2025 Episodic Nonspecific chest pain (20 sources) Chest pain on exertion; Translations: [Chest pain, unspecified] 12-12-2020 Episodic Other circulatory disease (20 sources) Low blood pressure; Translations: [Hypotension, unspecified] 01-05-2021 Episodic Other circulatory disease (20 sources) Carotid bruit; Translations: [Other specified symptoms and signs involving the circulatory and respiratory systems] 03-16-2022 Episodic Other eye disorders (2 sources) Irregular eye movements; Translations: [Other irregular eye movements] Chronic Other gastrointestinal disorders (8 sources) Stool DNA-based colorectal cancer screening positive; [...] Translations: [Other fatigue] Onset: 11-12-2024 Episodic Other circulatory disease (15 sources) Other specified symptoms and signs involving the circulatory and respiratory systems; Translations: [Other symptoms involving cardiovascular system] Onset: 12-21-2024 Episodic Other gastrointestinal disorders (1 source) Other fecal abnormalities; Translations: [Other fecal abnormalities] Onset: 09-23-2024 Episodic Other non-epithelial cancer of skin (9 sources) Malignant neoplasm of skin; Translations: [Other and unspecified malignant neoplasm of skin, site unspecified] Onset: 11-21-2005 11-21-2005 Episodic Other skin disorders (3 sources) Vitiligo; Translations: [Vitiligo] Onset: 07-08-2007 07-08-2007 Episodic Results Test Name Value Interpretation Reference Range Facility [id number] 03-21-2025 [id number] DME order for FWW placed with Elliot from [facility]. [facility] [id number] Educated patient and on Home Care and services available. Patient is agreeable to receiving home care services at this time. Patient was given choice of home care agencies available in the area and is agreeable to having referrals made with agencies that staff the patients service location. Referrals have been sent via [facility]. Spoke with pts regarding all accepting agencies. [facility] is [facility]. Agency notified via [facility]port. [facility] [id number] 03-21-2025 [id number] provided patient and with [facility] Fund card. Street card has resources such as transportation, food, utilities etc. [facility] [id number] Patient Choice Patient Name: FRANCISCO RAMOS Date of : 1950 All Providers Sent Referral Name: [facility] (For [facility] Facilities Only) Phone: [phone] Address: [address] [place] [address] Name: [facility] Phone: [phone] Address: [address] [place] [address] Name: [facility] Phone: [phone] Address: [address] [address] Name: [facility] Address: [address] [place] [address] Name: [facility] Phone: [phone] Address: [address] [place] [address] Name: [facility] Phone: [phone] Address: [address] [place] [address] Name: [facility] Phone: [phone] Address: [address] [place] [address] Name: [facility] Phone: [phone] Address: [address] [place] [address] Name: [facility] Phone: [phone] Address: [address] [place] [address] Name: [facility] Phone: [phone] Address: [address] [facility] [address] [place] [address] Name: [facility] Address: [address] [place] [address] Name: [facility] Address: [address] [place] [address] Name: [facility] Phone: [phone] Address: [address] [place] [address] Name: [facility] Phone: [phone] Address: [address] [place] [address] Name: [facility] Address: [address] [place] [address] Name: [facility] Address: [address] [place] [address] Name: [facility] Phone: [phone] Address: [address] [place] [address] Name: [facility] Address: [address] [facility] [address] [place] [address] Name: [facility] Address: [address] [place] [address] Name: [facility] (formerly known as [facility]) Phone: [phone] Address: [address] [place] [address] Name: [facility] (All Offices) Phone: [phone] Address: [address] [place] [address] Name: [facility] ([facility]) Address: [address] [place] [address] Name: [facility] [place] [facility] [employer] Phone: [phone] Address: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 for race Glucose [Mass/Vol] 149 mg/dL High 82 - 115 mg/dL [facility] Interpretation and review of laboratory results Abnormal [facility] Potassium [Moles/Vol] 4 mmol/L 3.5 - 5.1 mmol/L [facility] Comment on above: Plasma potassium sia ues may be up to 0.5 mmol/L lower than serum values. Sodium [Moles/Vol] 135 mmol/L Low 136 - 145 mmol/L [facility] Urea nitrogen [Mass/Vol] 13 mg/dL 9 - 23 mg/d L [facility] CBC W Auto Differential pane l (Bld)Ordered By: Lacy Power on 03-19-2025 Erythrocyte distribution width (RBC) [Ratio] 12.5 % 11.5 - 15.0 % [facility] Hematocrit (Bld) [Volume fraction] 37.6 % Low 40.0 - 52.0 % [facility] Hemoglobin (Bld) [Mass/Vol] 13.1 g/dL 13.0 - 18.0 g/dL [facility] Interpretation and review of laboratory results Abnormal [facility] IPF 3 [facility] MCH (RBC) [Entitic mass] 30.6 pg 26. 0 - 34.0 pg [facility] MCHC (RBC) [Mass/Vol] 34.8 % 30.5 - 36.0 % [facility] MCV (RBC) [Entitic vol] 87.9 fL 77.0 - 99.0 fL [facility] Platelet mean volume (Bld) [Entitic vol] 10.8 fL 9.0 - 12.7 fL [facility] Platelets (Bld) [#/Vol] 117 10*3/uL Low 140 - 440 10*3/uL [facility] RBC (Bld) [#/Vol] 4.28 10*6/uL Low 4.40 - 5.9 0 10*6/uL [facility] WBC (Bld) [#/Vol] 6.3 10*3/uL 3.6 - 10.7 10*3/uL [facility] CBC WITH AUTO DIFFERENTIALon 03-19-2025 Erythrocyte distribution width (RBC) [Ratio] 12.5 % Normal 11.5-15.0 [facility] Comment on above: Performed By: #### L [id number], [id number] ####Marketing Technologist: JAZLYN BRUCE ([id number])[facility] ([facility])[address] [place] [address] Hematocrit (Bld) [Volume fraction] 37.6 % Low 40.0-52.0 [facility] Comment on above: Performed By: #### L [id number], [id number] ####Marketing Technologist: JAZLYN BRUCE ([id number])[facility] ([facility])[address] [place] [address] Hemoglobin (Bld) [Mass/Vol] 13.1 g/dL Normal 13.0-18.0 [facility] Comment on above: Performed By: #### L [id number], [id number] ####Marketing Technologist: JAZLYN BRUCE ([phone])[facility])[address] [place] [address] IPF 3 Normal [facility] Comment on above: Performed By: #### L [id number], [id number] ####Marketing Technologist: JAZLYN BRUCE ([id number])[facility])[address] [place] [address] MCH (RBC) [Entitic mass] 30.6 pg Normal 26.0-34.0 [facility] Comment on above: Performed By: #### L [id number], [id number] ####Marketing Technologist: JAZLYN BRUCE ([id number])[facility])[address] [place] [address] MCHC 34.8 % Normal 30.5-36.0 [facility] Comment on above: Performed By: #### Ricardo [id number], [id number] ####Marketing Technologist: JAZLYN BRUCE ([id number])[facility])[address] [place] [address] MCV (RBC) [Entitic vol] 87.9 fL Normal 77.0-99.0 S [facility] Comment on above: Performed By: #### L [id number], [id number] ####Marketing Technologist: JAZLYN BRUCE ([id number])[facility])[address] [place] [address] Platelet mean volume (Bld) [Entitic vol] 10.8 fL Normal 9.0-12.7 [facility] Comment on above: Performed By: #### L [id number], [id number] ####Marketing Technologist: JAZLYN BRUCE ([id number])[facility])[address] [place] [address] Platelets (Bld) [#/Vol] 117 10*3/uL Low 140-440 [facility] Comment on above: Performed By: #### L [id number], [id number] ####Marketing Technologist: JAZLYN BRUCE ([id number])[facility])[address] [place] [address] RBC (Bld) [#/Vol] 4.28 10*6/uL Low 4.40-5.90 [facility] Comment on above: Performed By: #### L [id number], [id number] ####Marketing Technologist: JAZLYN BRUCE ([id number])[facility] ([facility])[address] [place] [address] WBC (Bld) [#/Vol] 6.3 10*3/uL Normal 3.6-10.7 [facility] Comment on above: Performed By: #### L [id number], [id number] ####Marketing Technologist: JAZLYN BRUCE ([id number])[address] Laboratory - Hematology and Cell countson 03-19-2025 Band form neutrophils (Bld) [#/Vol] 0.4 10*3/uL High NINF - 0.0 10*3/uL [facility] Band form neutrophils/100 WBC (Bld) 6 % High NINF - 0 % [facility] [place] cells LM Ql (Bld) Slight Abnormal (none) [facility] Lymphocytes (Bld) [#/Vol] 0.1 10*3/uL Low 1.0 - 4.3 10*3/uL [facility] Lymphocytes/100 WBC (Bld) 1 % Low 15 - 45 % [facility] Monocytes (Bld) [#/Vol] 0.1 10*3/uL 0.0 - 0.9 10*3/uL [facility] Monocytes/100 WBC (Bld) 2 % Low 5 - 13 % S [facility] Neutrophils (Bld) [#/Vol] 6 10*3/uL 1.8 - 7.5 10*3/uL [facility] Ovalocytes LM Ql (Bld) Slight Abnormal (none) [facility] Poikilocytosis LM Ql (Bld) Slight Abnormal (none) [facility] RBC morphology finding Nom (Bld) abnormal [facility] Segmented neutrophils/100 WBC (Bld) 90 % High 38 - 82 % [facility] Variant lymphocytes (Bld) [#/Vol] 0.1 10*3/uL High NINF - 0.0 10*3/uL [facility] Variant lymphocytes/100 WBC (Bld) 1 % High NINF - 0 % [facility] MANUAL DIFFERENTIAL (CELLAVI LUCAS)on 03-19-2025 BAND NEUTROPHILS TOTAL PER COUNTED LEUKOCYTES BY MANUAL COUNT 6 Normal [facility] Comment on above: Performed By: #### L [id number], [id number] ####Marketing Technologist: JAZLYN BRUCE ([id number])[facility] ([facility])[address] [place] [address] [place] BANDS (10*3/UL) IN BLOOD-CELLAVISION 0.4 10*3/uL High <=0.0 [facility] Comment on above: Performed By: #### L [id number], [id number] ####Marketing Technologist: JAZLYN BRUCE ([phone])[facility] ([facility])[address] [place] [address] [place] BASOPHILS TOTAL PER COUNTED LEUKOCYTES BY MANUAL COUNT Normal [facility] Comment on above: Performed By: #### L [id number], [id number] ####Marketing Technologist: JAZLYN BRUCE ([id number])[facility] ([facility])[address] [place] [address] [place] BLASTS TOTAL PER COUNTED LEUKOCYTES BY MANUAL COUNT Normal [facility] Comment on above: Performed By: #### L [id number], [id number] ####Marketing Technologist: JAZLYN BRUCE ([id number])[facility] ([facility])[address] [place] [address] [place] DARNELL CELLS PRESENCE IN BLOOD BY LIGHT MICROSCOPY Slight Abnormal (none) [facility] Comment on above: Performed By: #### L [id number], [id number] ####Marketing Technologist: JAZLYN BRUCE ([phone])[facility] ([facility])[address] [place] [address] [place] EOSINOPHILS TOTAL PER COUNTED LEUKOCYTES BY MANUAL COUNT Normal [facility] Comment on above: Performed By: #### L [id number], [id number] ####Marketing Technologist: JAZLYN BRUCE ([id number])[facility])[address] [place] [address] LYMPHOCYTE VARIANT/100 LEUKOCYTES IN BLOOD- CELLAVISION 1 % High <=0 [facility] Comment on above: Performed By: #### L [id number], [id number] ####Marketing Technologist: JAZLYN BRUCE ([phone])[facility] ([facility])[address] [place] [address] [place] LYMPHOCYTES (10*3/UL) IN BLOOD-CELLAVISION 0.1 10*3/uL Low 1.0-4.3 [facility] Comment on above: Performed By: #### L [id number], [id number] ####Marketing Technologist: JAZLYN BRUCE ([id number])[facility] ([facility])[address] [place] [address] LYMPHOCYTES TOTAL PER COUNTED LEUKOCYTES BY MANUAL COUNT 1 Normal [facility] Comment on above: Performed By: #### L [id number], [id number] ####Marketing Technologist: JAZLYN BRUCE ([id number])[facility])[address] [place] [address] [place] LYMPHOCYTES/100 LEUKOCYTES IN BLOOD-CELLAVISION 1 % Low 15-45 [facility] Comment on above: Performed By: #### L [id number], [id number] ####Marketing Technologist: JAZLYN BRUCE ([id number])[facility])[address] [place] [address] METAMYELOCYTES TOTAL PER COUNTED LEUKOCYTES BY MANUAL COUNT Normal [facility] Comment on above: Performed By: #### L [id number], [id number] ####Marketing Technologist: JAZLYN BRUCE ([id number])[facility])[address] [place] [address] [place] MONOCYTES (10*3/UL) IN BLOOD-CELLAVISION 0.1 10*3/uL Normal 0.0-0.9 [facility] Comment on above: Performed By: #### L [id number], [id number] ####Marketing Technologist: JAZLYN BRUCE ([id number])[facility] ([facility])[address] [place] [address] [place] MONOCYTES TOTAL PER COUNTED LEUKOCYTES BY MANUAL COUNT 2 Normal [facility] Comment on above: Performed By: #### L [id number], [id number] ####Marketing Technologist: JAZLYN BRUCE ([phone])[facility] ([facility])[address] [place] [address] [place] MONOCYTES/100 LEUKOCYTES IN BLOOD-KATIE 2 % Low 5-13 [facility] Comment on above: Performed By: #### L [id number], [id number] ####Marketing Technologist: JAZLYN BRUCE ([id number])[facility] ([facility])[address] [place] [address] MYELOCYTES COUNTED BY MANUAL COUNT Normal [facility] Comment on above: Performed By: #### L [id number], [id number] ####Marketing Technologist: JAZLYN BRUCE ([id number])[facility] ([facility])[address] [place] [address] [place] NEUTROPHILS BAND FORM/100 LEUKOCYTES IN BLOOD-CELLAVISI 6 % High <=0 [facility] Comment on above: Performed By: #### L [id number], [id number] ####Marketing Technologist: JAZLYN BRUCE ([phone])[facility] ([facility])[address] [place] [address] NEUTROPHILS TOTAL PER COUNTED LEUKOCYTES BY MANUAL COUNT 94 Normal [facility] Comment on above: Performed By: #### L [id number], [id number] ####Marketing Technologist: JAZLYN BRUCE ([phone])[facility] ([facility])[address] [place] [address] [place] OVALOCYTES PRESENCE IN BLOOD BY LIGHT MICROSCOPY Slight Abnormal (none) [facility] Comment on above: Performed By: #### L [id number], [id number] ####Marketing Technologist: JAZLYN BRUCE ([phone])[facility] ([facility])[address] [place] [address] [place] POIKILOCYTOSIS (PRESENCE) IN BLOOD BY LIGHT MICROSCOPY Slight Abnormal (none) [facility] Comment on above: Performed By: #### L [id number], [id number] ####Marketing Technologist: JAZLYN BRUCE ([phone])[facility] ([facility])[address] [place] [address] [place] PROMYELOCYTES TOTAL PER COUNTED LEUKOCYTES BY MANUAL COUNT Normal [facility] Comment on above: Performed By: #### L [id number], [id number] ####Marketing Technologist: JAZLYN BRUCE ([id number])[facility] ([facility])[address] [place] [address] [place] RBC MORPHOLOGY IN BLOOD abnormal Normal S [facility] Comment on above: Performed By: #### L [id number], [id number] ####Marketing Technologist: JAZLYN BRUCE ([id number])[facility] ([facility])[address] [place] [address] [place] SEGMENTED NEUTROPHILS (10*3/UL) IN BLOOD-CELLAVISION 6.0 10*3/uL Normal 1.8-7.5 [facility] Comment on above: Performed By: #### L [id number], [id number] ####Marketing Technologist: JAZLYN BRUCE ([phone])[facility] ([facility])[address] [place] [address] [place] SEGMENTED NEUTROPHILS/100 LEUKOCYTES-CE 90 % High 38-82 [facility] Comment on above: Performed By: #### L [id number], [id number] ####Marketing Technologist: JAZLYN BRUCE ([phone])[facility] ([facility])[address] [place] [address] [place] UNCLASSIFIED CELLS TOTAL PER COUNTED LEUKOCYTES BY MANUAL COUNT Normal [facility] Comment on above: Performed By: #### L [id number], [id number] ####Marketing Technologist: JAZLYN BRUCE ([id number])[facility] ([facility])[address] [place] [address] [place] VARIANT LYMPHOCYTES (10*3/UL) IN BLOOD-CELLAVISION 0.1 10*3/uL High <=0.0 [facility] Comment on above: Performed By: #### L [id number], [id number] ####Marketing Technologist: JAZLYN BRUCE ([id number])[facility])[address] [place] [address] VARIANT LYMPHOCYTES TOTAL PER COUNTED LEUKOCYTES BY MANUAL COUNT 1 Normal [facility] Comment on above: Performed By: #### L [id number], [id number] ####Marketing Technologist: JAZLYN BRUCE ([id number])[facility] ([facility])[address] [place] [address] No Panel Informationon 03-19 Atypical Lymphocytes Manual 1 [facility] Bands Manual 6 [facility] Basophils Manual [facility] Blasts Manual [facility] Eosinophils Manual [facility] Interpretation and review of laboratory results Abnormal [facility] Lymphocytes Manual 1 [facility] Metamyelocytes Manual [facility] Monocytes Manual 2 [facility] Myelocytes Manual [facility] Neutrophils Manual 94 [facility] Promyelocytes Manual [facility] Unclassified Cells, Manual [facility] Nursing Noteon 03-19-2025 Nursing Note I (EDER RN) was called to unit d/t patient agitation and attempts to leave the hospital. The officer and myself informed staff and physician that the patient is free to leave unless he is deemed to lack capacity for decision making and green slipped. The physician placed an order for a green slip. When I arrived on the unit staff had mostly calmed the patient down. He was standing with assistance and was able to converse with me. He had been given Haldol 0.5mg IM. The officer and I explained that he is now on a medical hold and not able to leave. I explained that this is temporary. He eventually agreed to sit and talk with me. He told me that he did not like how staff were physically preventing him from walking out. I explained that this was for his safety and apologized for the situation making him upset. He states he understands that he is unsteady and needs assistance, and that staff were trying to keep him safe. His affect brightened as we spoke. At the end of the conversation he shook my hand and agreed to allow staff to help him with his balance, and confirmed understanding (currently) that he is not allowed to leave. Normal [facility] Progress Noteon 03-19-2025 Progress Note PHYSICAL THERAPY [facility] Treatment Note Name/MRN: Francisco Ramos ([id number]) Date of : 1950 Age: 74 y.o. Room/Bed: -6116/H-6116 A Discharge Recommendation: 24 hour supervision or assist, Home with Home health PT Equipment Needed: No Assessment Patient is progressing towards goals, most limited by cognition, decreased endurance, and decreased balance. Performs transfers with SBA and is able to ambulate around unit with no device and CGA. Requires consistent cues for safety, patient is impulsive and requires frequent redirection. Anticipate patient will discharge home with 24h assist and home PT. Subjective Seated in recliner upon arrival, agreeable to PT Pain: Pt denies any current pain. Medical Precautions: No active isolations Proper PPE donned/doffed in accordance with facility standards. Fall Risk: Perez Fall Risk Score: 60 (High Risk) Overall Cognitive Status: Exceptions - Following commands: follows one step commands with repetition - Attention span: attends with cues to redirect - Safety judgement: decreased awareness of need for assistance and decreased awareness of need for safety - Problem solving: assistance required to identify errors made and assistance required to correct errors made - Sequencing: requires cues for some Overall Orientation Status: Oriented to Person Family/Caregiver Present: spouse Objective Bed Mobility Sit to supine: Min Assist Scooting: SBA HOB elevated, use of bed rail, assistance for LE swing over into bed Transfers/Mobility Sit to stand: SBA Stand to sit: SBA Good technique, requires cues for alignment to sit surface. Patients sits and stand impulsively and requires cues for safety Device(s) used: None Ambulation Ambulation 1 Assistive device(s) used: None Assist level: Contact Guard Distance (ft): 350ft x 2 Quality of gait: reciprocal stepping, slow alvina. Postural sway at times, Requires redirection and cues for technique and stepping in narrow spaces. One episode of freezing when ambulating over changing floor tiles, able to continue ambulation with cuing. Seated rest between trials. Impulsive. Balance During Session: Posture: fair Sitting - Static: Supervision Sitting - Dynamic: SBA Standing - Static: Contact Guard, Min Assist Standing - Dynamic: Min Assist Standing balance tasks performed with intermittent UE support; patient able to perform self care tasks such as washing hands and pericare, minimal postural sway and no LOB. Standing tolerance for ~5-6 min periods. Incontinent of urine multiple times during ambulation. Plan Continue acute PT per plan of care. Safety/Education Safety Safety Devices in place: All fall risk precautions in place, call light within reach, left in bed, gait belt, and scrip clerk present Restraints: No Education Gait, transfers, balance Outcome Measures AM-PAC AM-PAC Inpatient Mobility Raw Score (No Stairs) : 17 JH-HLM -HL Score: Walked 250 ft or more (i.e. several laps on unit) Goals Patient Stated Goal: to go home Encounter Problems Encounter Problems (Active) Balance Patient will maintain dynamic standing balance for 5 minutes with independence in order to demonstrate decreased risk of falling. (Progressing) Start: 03/17/25 Expected End: 04/14/25 Mobility Patient will ambulate 100 feet with independence and no assistive device in order to improve safety and independence with mobility. (Progressing) Start: 03/17/25 Expected End: 04/14/25 Transfers Patient will perform bed mobility with independence in order to improve independence and prepare for out of bed mobility. (Progressing) Start: 03/17/25 Expected End: 04/14/25 Patient will complete functional transfer with no assistive device with independence in order to prepare for ambulation. (Progressing) Start: 03/17/25 Expected End: 04/14/25 Therapy Time Individual Co-treatment Time In 1415 Time Out 1447 Minutes 32 Timed Code Treatment Minutes: 32 Minutes (gait, FA) Olivia Noriega PTA [facility] Progress Note OCCUPATIONAL THERAPY [facility] Treatment Note Name/MRN: Francisco Ramos ([id number]) Date of : 1950 Age: 74 y.o. Room/Bed: H-6116/H-6116 A Discharge Recommendation: 24 hour supervision or assist Equipment Needed: No (has built in shower bench) Assessment Pt was able to identify self and date. Pt is limited by rigidity, decreased activity tolerance, and needs ample time to process. Pt use fww and is showing progress with fxl mobility and toileting. Pt would benefit from continued acute OT services to increase independence c/ ADLs, fxl mobility and transfers. Recommending 24 hour supervision/assist due to increased need, sitter was in the room during treatment today. Subjective Pt was agreeable to OT treament, caregiver was present. Pain: Pt denies any current pain. Medical Precautions: No active isolations Proper PPE donned/doffed in accordance with facility standards. Fall Risk: Perez Fall Risk Score: 60 (High Risk) Family/Caregiver Present: caregiver Objective ADLs Toileting: Min Assist, for thoroughness and max cues to initiate, needs extended time to process commands. UE Dressing: Mod Assist supine in bed, able to thread arms. Bed Mobility Supine to sit: Max Assist Sit to supine: Max Assist Scooting: Mod Assist HOB Elevated Use of bed rail(s) Transfers/Mobility Sit to stand: Mod Assist, c/ fww, placed hands and slight loss of balance, retro lean to R, corrected with mod A. Stand to sit: Mod Assist, prompted 3 times and A c/ trunk flexion and to control decent. Toilet: Mod Assist Standing balance: Min Assist, c/ loss of balance d/t R retro lean c/ fww for balance for approximately 5 minutes. Functional mobility: Mod Assist, c/ fww to A c/ retro lean, cueing for posture and slight loss of balance when starting and stopping, max direction cues and time to process. Device(s) used: Front wheeled walker Plan Continue acute OT per plan of care. Safety/Education Safety Safety Devices in place: All fall risk precautions in place, call light within reach, left in bed, gait belt, patient at risk for falls, nurse notified, no alarms engaged upon entry, and scrip clerk present Restraints: No Education Education Given To: patient and caregiver Education Provided: OT Role, Plan of Care, ADL Adaptive Strategies, Transfer Training, Energy Conservation, Discharge Recommendations, Benefits of Increasing Activity, and parkinson's techniques. Education Method: Verbal Barriers to Learning: Cognition Education Outcome: Verbalized Understanding, Unable to Demonstrate, and Continued Education Needed AM-PAC AM-PAC Inpatient Daily Activity Raw Score: 16 ADL Inpatient CMS G-Code Modifier: CK Goals Patient Stated Goal: Encounter Problems Encounter Problems (Active) Balance Patient will maintain static standing balance for 5 minutes with modified independence in order to demonstrate decreased risk of falling. (Initiated) Start: 03/18/25 Expected End: 04/15/25 Cognition Patient will sequence through basic ADL with no more than 1 cue. (Initiated) Start: 03/18/25 Expected End: 04/15/25 Dressings Lower Extremities Patient will dress lower body supervision, AE prn. (Not Addressed) Start: 03/18/25 Expected End: 04/15/25 Instrumental Activities of Daily Living Patient will implement energy conservation techniques during ADLs with no more than 1 cue. (Not Addressed) Start: 03/18/25 Expected End: 04/15/25 Toileting Patient will complete toileting tasks at standard toilet with modified independence. (Initiated) Start: 03/18/25 Expected End: 04/15/25 Transfers Patient will complete functional transfer with least restrictive device with modified independence in order to prepare for ambulation. (Initiated) Start: 03/18/25 Expected End: 04/15/25 Therapy Time Individual Co-treatment Time In 1055 Time Out 1125 Minutes 30 Timed Code Treatment Minutes: 25 Minutes Variance: 5 (item retrieval) 1 FA, 1 Self YASHIRA Durant [facility] [id number] 03-18-2025 [id number] Spoke with T[facility] regarding pt combative behavior with staff and PT recs for HHC, but will wait to discuss possible home care services with pt/family until closer to pa. Community Services Officer following case for Discharge Needs. [facility] BASIC METABOLIC PANELon 07 Anion gap [Moles/Vol] 7 mmol/L Normal 3-13 [facility] Comment on above: Performed By: #### L [id number] ####Marketing Technologist: JAZLYN BRUCE ([id number])[facility])[address] [place] [address] Calcium [Mass/Vol] 8.6 mg/dL Low 8.8-10.0 [facility] Comment on above: Performed By: #### L [id number] ####Marketing Technologist: JAZLYN BRUCE ([id number])[facility])[address] [place] [address] Chloride [Moles/Vol] 106 mmol/L Normal 98-107 [facility] Comment on above: Performed By: #### L [id number] ####Marketing Technologist: JAZLYN BRUCE ([id number])[facility] ([facility])[address] [place] [address] CO2 [Moles/Vol] 24 mmol/L Normal 23-31 [facility] Comment on above: Performed By: #### L [id number] ####Marketing Technologist: JAZLYN BRUCE ([id number])[facility] ([facility])[address] [place] [address] Creatinine [Mass/Vol] 0.75 mg/dL Normal 0.72-1.25 [facility] Comment on above: Performed By: #### L [id number] ####Marketing Technologist: JAZLYN BRUCE ([phone])[facility])[address] [place] [address] GLOMERULAR FILTRATION RATE ML/MIN/1.73 SQ M.PREDICTED >90.0 Normal >60.0 [facility] Comment on above: Result Comment: Calc ulation based on the Chronic Kidney Disease Epidemiology Collaboration (CKD-EPI) equation refit without adjustment for race Performed By: #### L [id number] ####Marketing Technologist: JAZLYN BRUCE ([id number])[facility] ([facility])[address] [place] [address] Glucose [Mass/Vol] 78 mg/dL Low 82-115 [facility] Comment on above: Performed By: #### L [id number] ####Marketing Technologist: JAZLYN BRUCE ([phone])[facility])[address] [place] [address] Potassium [Moles/Vol] 3.6 mmol/L Normal 3.5-5.1 [facility] Comment on above: Result Comment: [facility] potassium values may be up to 0.5 mmol/L lower than serum values. Performed By: #### L [id number] ####Marketing Technologist: JAZLYN BRUCE ([phone])[facility] ([facility])[address] [place] [address] Sodium [Moles/Vol] 137 mmol/L Normal 136-145 [facility] Comment on above: Performed By: #### L [id number] ####Marketing Technologist: JAZLYN BRUCE ([id number])[facility] ([facility])[address] [place] [address] Urea nitrogen [Mass/Vol] 9 mg/dL Normal 9-23 [facility] Comment on above: Performed By: #### L [id number] ####Marketing Technologist: JAZLYN BRUCE ([id number])[facility] ([facility])[address] [place] [address] Basic metabolic 1998 panelon 03-18-2025 Anion gap [Moles/Vol] 7 mmol/L 3 - 13 mmol/L [facility] Calcium [Mass/Vol] 8.6 mg/dL Low 8.8 - 10. 0 mg/dL [facility] Chloride [Moles/Vol] 106 mmol/L 98 - 10 7 mmol/L [facility] CO2 [Moles/Vol] 24 mmol/L 23 - 31 mmol/L [facility] Creatinine [Mass/Vol] 0.75 mg/dL 0.72 - 1.25 mg/dL [facility] GFR/1.73 sq M.predicted (S/P/Bld) [Vol rate/Area] - PINF [facility] Comment on above: Calculation based on the Chronic Kidney Disease Epidemiology Collaboration (CKD-EPI) equation refit without adjustment for race Glucose [Mass/Vol] 78 mg/dL Low 82 - 115 mg/dL [facility] Interpretation and review of laboratory results Abnormal [facility] Potassium [Moles/Vol] 3.6 mmol/L 3.5 - 5.1 mmol/L [facility] Comment on above: Plasma potassium sia ues may be up to 0.5 mmol/L lower than serum values. Sodium [Moles/Vol] 137 mmol/L 136 - 145 mmol/L [facility] Urea nitrogen [Mass/Vol] 9 mg/dL 9 - 23 mg/d L [facility] CBC W Auto Differential pane l (Bld)on 03-18-2025 Basophils (Bld) [#/Vol] 0 10*3/uL 0.0 - 0.2 10*3/uL [facility] Basophils/100 WBC (Bld) 0 % 0.0 - 2.0 % [facility] Eosinophils (Bld) [#/Vol] 0 10*3/uL 0.0 - 0.5 10*3/uL [facility] Eosinophils/100 WBC (Bld) 0 % 0.0 - 6.0 % [facility] Erythrocyte distribution width (RBC) [Ratio] 12.8 % 11.5 - 15.0 % [facility] Hematocrit (Bld) [Volume fraction] 40.2 % 40.0 - 52.0 % [facility] Hemoglobin (Bld) [Mass/Vol] 13.9 g/dL 13.0 - 18.0 g/dL [facility] Immature granulocytes (Bld) [#/Vol] 0 10*3/uL NINF - 0.1 10*3/uL [facility] Immature granulocytes/100 WBC (Bld) 0.4 % 0.0 - 2.0 % [facility] Interpretation and review of laboratory results Abnormal [facility] IPF 4 [facility] Lymphocytes (Bld) [#/Vol] 1 10*3/uL 1.0 - 4.3 10*3/uL [facility] Lymphocytes/100 WBC (Bld) 21 % 15.0 - 45.0 % [facility] MCH (RBC) [Entitic mass] 30.8 pg 26. 0 - 34.0 pg [facility] MCHC (RBC) [Mass/Vol] 34.6 % 30.5 - 36.0 % [facility] MCV (RBC) [Entitic vol] 88.9 fL 77.0 - 99.0 fL [facility] Monocytes (Bld) [#/Vol] 0.5 10*3/uL 0.0 - 0.9 10*3/uL [facility] Monocytes/100 WBC (Bld) 10 % 5.0 - 13.0 % [facility] Neutrophils (Bld) [#/Vol] 3.2 10*3/uL 1.8 - 7.5 10*3/uL [facility] Neutrophils/100 WBC (Bld) 68.6 % 38.0 - 82.0 % [facility] Nucleated RBC/100 WBC (Bld) [Ratio] 0 % [facility] Platelet mean volume (Bld) [Entitic vol] 10.7 fL 9.0 - 12.7 fL [facility] Platelets (Bld) [#/Vol] 127 10*3/uL Low 140 - 440 10*3/uL [facility] RBC (Bld) [#/Vol] 4.52 10*6/uL 4.40 - 5.9 0 10*6/uL [facility] WBC (Bld) [#/Vol] 4.6 10*3/uL 3.6 - 10.7 10*3/uL [facility] CBC WITH AUTO DIFFERENTIALon 03-18-2025 Basophils (Bld) [#/Vol] 0.0 10*3/uL Normal 0.0-0.2 [facility] Comment on above: Performed By: #### L [id number] ####Marketing Technologist: JAZLYN BRUCE ([id number])[facility] ([facility])[address] [place] [address] Basophils/100 WBC (Bld) 0.0 % Normal 0.0-2.0 [facility] Comment on above: Performed By: #### L [id number] ####Marketing Technologist: JAZLYN BRUCE ([id number])[facility])[address] [place] [address] Eosinophils (Bld) [#/Vol] 0.0 10*3/uL Normal 0.0-0.5 [facility] Comment on above: Performed By: #### L [id number] ####Marketing Technologist: JAZLYN BRUCE ([id number])[facility])[address] [place] [address] Eosinophils/100 WBC (Bld) 0.0 % Normal 0.0-6.0 [facility] Comment on above: Performed By: #### L [id number] ####Marketing Technologist: JAZLYN BRUCE ([id number])[facility])[address] [place] [address] Erythrocyte distribution width (RBC) [Ratio] 12.8 % Normal 11.5-15.0 [facility] Comment on above: Performed By: #### L [id number] ####Marketing Technologist: JAZLYN BRUCE ([id number])[facility])[address] [place] [address] Hematocrit (Bld) [Volume fraction] 40.2 % Normal 40.0-52.0 [facility] Comment on above: Performed By: #### L [id number] ####Marketing Technologist: JAZLYN BRUCE ([id number])[facility])[address] [place] [address] Hemoglobin (Bld) [Mass/Vol] 13.9 g/dL Normal 13.0-18.0 [facility] Comment on above: Performed By: #### L [id number] ####Marketing Technologist: JAZLYN BRUCE ([id number])[facility] ([facility])[address] [place] [address] IMMATURE GRANS % 0.4 % Normal 0.0-2.0 [facility] Comment on above: Performed By: #### L [id number] ####Marketing Technologist: JAZLYN BRUCE ([id number])[facility])[address] [place] [address] IMMATURE GRANS ABSOLUTE 0.0 10*3/uL Normal <0.1 [facility] Comment on above: Performed By: #### L [id number] ####Marketing Technologist: JAZLYN BRUCE ([id number])[facility])[address] [place] [address] [place] IPF 4 Normal [facility] Comment on above: Performed By: #### L [id number] ####Marketing Technologist: JAZLYN BRUCE ([id number])[facility])[address] [place] [address] [place] Lymphocytes (Bld) [#/Vol] 1.0 10*3/uL Normal 1.0-4.3 [facility] Comment on above: Performed By: #### L [id number] ####Marketing Technologist: JAZLYN BRUCE ([id number])[facility])[address] [place] [address] [place] Lymphocytes/100 WBC (Bld) 21.0 % Normal 15.0-45.0 [facility] Comment on above: Performed By: #### L [id number] ####Marketing Technologist: JAZLYN BRUCE ([id number])[facility])[address] [place] [address] MCH (RBC) [Entitic mass] 30.8 pg Normal 26.0-34.0 [facility] Comment on above: Performed By: #### L [id number] ####Marketing Technologist: JAZLYN BRUCE ([id number])[facility])[address] [place] [address] MCHC 34.6 % Normal 30.5-36.0 [facility] Comment on above: Performed By: #### L [id number] ####Marketing Technologist: JAZLYN BRUCE ([id number])[facility])[address] [place] [address] MCV (RBC) [Entitic vol] 88.9 fL Normal 77.0-99.0 [facility] Comment on above: Performed By: #### L [id number] ####Marketing Technologist: JAZLYN BRUCE ([id number])[facility])[address] [place] [address] Monocytes (Bld) [#/Vol] 0.5 10*3/uL Normal 0.0-0.9 [facility] Comment on above: Performed By: #### L [id number] ####Marketing Technologist: JAZLYN BRUCE ([id number])[facility])[address] [place] [address] Monocytes/100 WBC (Bld) 10.0 % Normal 5.0-13.0 [facility] Comment on above: Performed By: #### L [id number] ####Marketing Technologist: JAZLYN BRUCE ([id number])[facility])[address] [place] [address] NEUTROPHILS ABSOLUTE 3.2 10*3/uL Normal 1.8-7.5 [facility] Comment on above: Performed By: #### L [id number] ####Marketing Technologist: JAZLYN BRUCE ([id number])[facility])[address] [place] [address] Neutrophils/100 WBC (Bld) 68.6 % Normal 38.0-82.0 [facility] Comment on above: Performed By: #### L [id number] ####Marketing Technologist: JAZLYN BRUCE ([id number])[facility] ([facility])[address] [place] [address] NRBC 0.0 /100 WBCs Normal 0.0-2.0 [facility] Comment on above: Performed By: #### L [id number] ####Marketing Technologist: JAZLYN BRUCE ([id number])[facility] ([facility])[address] [place] [address] Platelet mean volume (Bld) [Entitic vol] 10.7 fL Normal 9.0-12.7 [facility] Comment on above: Performed By: #### L [id number] ####Marketing Technologist: JAZLYN BRUCE ([id number])[facility] ([facility])[address] [place] [address] Platelets (Bld) [#/Vol] 127 10*3/uL Low 140-440 [facility] Comment on above: Performed By: #### L [id number] ####Marketing Technologist: JAZLYN BRUCE ([id number])[facility] ([facility])[address] [place] [address] RBC (Bld) [#/Vol] 4.52 10*6/uL Normal 4.40-5.90 [facility] Comment on above: Performed By: #### L [id number] ####Marketing Technologist: JAZLYN BRUCE ([id number])[facility] ([facility])[address] [place] [address] WBC (Bld) [#/Vol] 4.6 10*3/uL Normal 3.6-10.7 [facility] Comment on above: Performed By: #### L [id number] ####Marketing Technologist: JAZLYN BRUCE ([phone])[facility])[address] [place] [address] Nursing Noteon 03-18-2025 Nursing Note Report called to H[address] N[address] [facility] Nursing Note Called and updated pt at this time [facility] Nursing Note Verified with patients that pt. Had jello and lemon ice yesterday for lunch. 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 Priority Lab ID 1 Large Intestine, Sigmoid Colon Tissue TISSUE EXAM Bronson Jarrett MD 03/18/25 [id number] Routine Description: SIGMOID COLON Staff: Form Grader: Joseph Ibarra RN; Nika Schuster RN Relief Form Grader: Gini Awan RN; Cecilia Tinajero Relief Scrub: Nora Mahmood Scrub Person: Herman Khan RN Findings: See complete op note Complications: None; patient tolerated the procedure well. Specimens Collected: Order Name Source Comment Collection Info Order Time TISSUE EXAM Large Intestine, Sigmoid Colon Collected By: Bronson Jarrett MD 03/18/2025 6:26 PM Wound Class: Class II: Clean-Contaminated Blood Products: None Prophylactic Antibiotics: Procedure appropriate prophylactic antibiotic(s) given within 1 hour of surgical incision (two hours if receiving Vancomycin or flouroquinolone) [facility] Op Note OPERATIVE NOTE PATIENT NAME: Francisco Ramos : 1950 ATTENDING PHYSICIAN: Bronson Jarrett MD PROCEDURE DATE: 03/18/2025 PREOPERATIVE DIAGNOSIS: Sigmoid volvulus POSTOPERATIVE DIAGNOSIS: Same SURGEON: Bronson Jarrett MD GRAIN BROKER AND MARKET OPERATOR: Yasmin Barry OPERATION: Laparoscopic sigmoid colectomy ANESTHESIA: General ESTIMATED BLOOD LOSS: <50ml COMPLICATIONS: none SPECIMENS: Sigmoid colon and anastomotic rings INDICATIONS: The patient is a 74 y.o. year old male with history of above preop diagnosis. I explained the risk, benefits, expected outcome, and alternatives to the procedure. Patient understands the risks include but not inclusive to bleeding, infection, anesthesia complication, blood vessel/nerve damage, chronic pain, reoperation, and failure of the procedure to obtain its intended goals. Patient understands and is in agreement and would like to proceed. DESCRIPTION OF PROCEDURE: Patient was brought to the operating room and placed in the lithotomy position with arms tucked by their sides and all bony prominences appropriate padded. The patient was intubated by anesthesia. A tap block was performed by the anesthesia team. The rectal tube was removed. The abdomen was prepped with ChloraPrep and the patient was draped in usual sterile fashion. A midline incision was created in a semicircular fashion around the umbilicus extending down inferiorly. We dissected down through subcutaneous tissue using electrocautery. The anterior fascia was then elevated and we entered using electrocautery and got into the abdominal cavity. We then placed a gel point mini and gain insufflation. Upon surveying the abdomen the sigmoid colon was very redundant and it easily twisted upon itself. The rectosigmoid colon was elevated and we made an incision using Enseal device on the right rectosigmoid mesentery to enter the retrorectal plane. We developed that distally and proximally and identified the left ureter and kept that in the retroperitoneal position. We left the ROSALINDA intact. We then divided the rectal mesentery around the level of the sacral promontory to clear off the rectum circumferentially. We then divided the rectum using a 60 mm Endo ROSALBA green load stapler and blue load stapler. We then used Enseal device to divide the colon mesentery close to the colon wall going proximally to our proposed area of transection which was around the area of the descending sigmoid colon where the redundancy terminates. We then desufflated the abdomen and brought the specimen up through the gel point mini. The colon was transected using scissors and the specimen sent off as sigmoid colon. We sewed a pursestring suture and using 0 Prolene in the proximal divided portion of the colon. We then placed a 33 mm anvil in the colon and tied it down with our pursestring. The mesentery of the colon was cleared off using electrocautery. We then returned the colon and anvil back into the abdomen and regained insufflation with our gel point mini. The rectum was then serially dilated. The 33 mm EEA stapler was then placed transanally and the spike was opened up. We then created our Hanna rectal anastomosis. We had to complete anastomotic rings. We then occluded the proximal portion of the anastomosis and submerged the anastomosis under saline. We then performed a flexible sigmoidoscopy and the anastomosis appeared intact and there were no air bubbles seen on leak test. We then suctioned out the fluid from the pelvis and withdrew the flexible sigmoidoscope. The abdomen was then desufflated. GelPort mini was then removed. We changed our gloves. We then proceeded to close the anterior fascia and using 0 PDS. We then closed the skin using 4-0 Monocryl and dressed the incision with Dermabond. Patient was then awoken by anesthesia and transferred to the PACU in stable condition. Normal [facility] Progress Noteon 03-18-2025 Progress Note Nutrition rescreen completed. Patient is NPO/Clear liquid >3 days. Refer to Dietitian. Normal [facility] BASIC METABOLIC PANELon - Anion gap [Moles/Vol] 8 mmol/L Normal 3-13 [facility] Comment on above: Performed By: #### L [id number] ####Marketing Technologist: JAZLYN [id number])[address] Calcium [Mass/Vol] 8.8 mg/dL Normal 8.8-10.0 [facility] Comment on above: Performed By: #### L [id number] ####Marketing Technologist: JAZLYN BRUCE ([phone])[facility])[address] [place] [address] [place] Chloride [Moles/Vol] 107 mmol/L Normal 98-107 [facility] Comment on above: Performed By: #### L [id number] ####Marketing Technologist: JAZLYN BRUCE ([phone])[facility])[address] [place] [address] [place] CO2 [Moles/Vol] 22 mmol/L Low 23-31 [facility] Comment on above: Performed By: #### L [id number] ####Marketing Technologist: JAZLYN BRUCE ([phone])[facility])[address] [place] [address] Creatinine [Mass/Vol] 0.76 mg/dL Normal 0.72-1.25 [facility] Comment on above: Performed By: #### L [id number] ####Marketing Technologist: JAZLYN BRUCE ([phone])[facility])[address] [place] [address] GLOMERULAR FILTRATION RATE ML/MIN/1.73 SQ M.PREDICTED >90.0 Normal >60.0 [facility] Comment on above: Result Comment: Calc ulation based on the Chronic Kidney Disease Epidemiology Collaboration (CKD-EPI) equation refit without adjustment for race Performed By: #### L [id number] ####Marketing Technologist: JAZLYN BRUCE ([phone])[facility])[address] [place] [address] Glucose [Mass/Vol] 87 mg/dL Normal 82-115 [facility] Comment on above: Performed By: #### L [id number] ####Marketing Technologist: JAZLYN BRUCE ([phone])[facility])[address] [place] [address] Potassium [Moles/Vol] 3.8 mmol/L Normal 3.5-5.1 [facility] Comment on above: Result Comment: [facility] potassium values may be up to 0.5 mmol/L lower than serum values. Performed By: #### L [id number] ####Marketing Technologist: JAZLYN BRUCE ([phone])[facility] ([facility])[address] [place] [address] [place] Sodium [Moles/Vol] 137 mmol/L Normal 136-145 [facility] Comment on above: Performed By: #### L [id number] ####Marketing Technologist: JAZLYN BRUCE ([phone])[facility])[address] [place] [address] [place] Urea nitrogen [Mass/Vol] 13 mg/dL Normal 9-23 [facility] Comment on above: Performed By: #### L [id number] ####Marketing Technologist: JAZLYN BRUCE ([phone])[facility] ([address] Basic metabolic 1998 panelon 03-17-2025 Anion gap [Moles/Vol] 8 mmol/L 3 - 13 mmol/L [facility] Calcium [Mass/Vol] 8.8 mg/dL 8.8 - 10. 0 mg/dL [facility] Chloride [Moles/Vol] 107 mmol/L 98 - 10 7 mmol/L [facility] CO2 [Moles/Vol] 22 mmol/L Low 23 - 31 mmol/L [facility] Creatinine [Mass/Vol] 0.76 mg/dL 0.72 - 1.25 mg/dL [facility] GFR/1.73 sq M.predicted (S/P/Bld) [Vol rate/Area] - PINF [facility] Comment on above: Calculation based on the Chronic Kidney Disease Epidemiology Collaboration (CKD-EPI) equation refit without adjustment for race Glucose [Mass/Vol] 87 mg/dL 82 - 115 mg/dL [facility] Interpretation and review of laboratory results Abnormal [facility] Potassium [Moles/Vol] 3.8 mmol/L 3.5 - 5.1 mmol/L [facility] Comment on above: Plasma potassium sia ues may be up to 0.5 mmol/L lower than serum values. Sodium [Moles/Vol] 137 mmol/L 136 - 145 mmol/L [facility] Urea nitrogen [Mass/Vol] 13 mg/dL 9 - 23 mg/d L [facility] CBC W Auto Differential pane l (Bld)on 03-17-2025 Basophils (Bld) [#/Vol] 0 10*3/uL 0.0 - 0.2 10*3/uL [facility] Basophils/100 WBC (Bld) 0.2 % 0.0 - 2.0 % [facility] Eosinophils (Bld) [#/Vol] 0 10*3/uL 0.0 - 0.5 10*3/uL [facility] Eosinophils/100 WBC (Bld) 0 % 0.0 - 6.0 % [facility] Erythrocyte distribution width (RBC) [Ratio] 12.8 % 11.5 - 15.0 % [facility] Hematocrit (Bld) [Volume fraction] 42.1 % 40.0 - 52.0 % [facility] Hemoglobin (Bld) [Mass/Vol] 14.3 g/dL 13.0 - 18.0 g/dL [facility] Immature granulocytes (Bld) [#/Vol] 0 10*3/uL NINF - 0.1 10*3/uL [facility] Immature granulocytes/100 WBC (Bld) 0.2 % 0.0 - 2.0 % [facility] Interpretation and review of laboratory results Abnormal [facility] IPF 4 [facility] Lymphocytes (Bld) [#/Vol] 0.7 10*3/uL Low 1.0 - 4.3 10*3/uL [facility] Lymphocytes/100 WBC (Bld) 12.7 % Low 15.0 - 45.0 % [facility] MCH (RBC) [Entitic mass] 31 pg 26. 0 - 34.0 pg [facility] MCHC (RBC) [Mass/Vol] 34 % 30.5 - 36.0 % [facility] MCV (RBC) [Entitic vol] 91.3 fL 77.0 - 99.0 fL [facility] Monocytes (Bld) [#/Vol] 0.7 10*3/uL 0.0 - 0.9 10*3/uL [facility] Monocytes/100 WBC (Bld) 13 % 5.0 - 13.0 % [facility] Neutrophils (Bld) [#/Vol] 4.1 10*3/uL 1.8 - 7.5 10*3/uL [facility] Neutrophils/100 WBC (Bld) 73.9 % 38.0 - 82.0 % [facility] Nucleated RBC/100 WBC (Bld) [Ratio] 0 % [facility] Platelet mean volume (Bld) [Entitic vol] 10.8 fL 9.0 - 12.7 fL [facility] Platelets (Bld) [#/Vol] 105 10*3/uL Low 140 - 440 10*3/uL [facility] RBC (Bld) [#/Vol] 4.61 10*6/uL 4.40 - 5.9 0 10*6/uL [facility] WBC (Bld) [#/Vol] 5.5 10*3/uL 3.6 - 10.7 10*3/uL [facility] CBC WITH AUTO DIFFERENTIALon 03-17-2025 Basophils (Bld) [#/Vol] 0.0 10*3/uL Normal 0.0-0.2 [facility] Comment on above: Performed By: #### L [id number] ####Marketing Technologist: JAZLYN BRUCE ([phone])[facility] ([facility])[address] [place] [address] Basophils/100 WBC (Bld) 0.2 % Normal 0.0-2.0 S [facility] Comment on above: Performed By: #### L [id number] ####Marketing Technologist: JAZLYN BRUCE ([phone])[facility])[address] [place] [address] Eosinophils (Bld) [#/Vol] 0.0 10*3/uL Normal 0.0-0.5 [facility] Comment on above: Performed By: #### L [id number] ####Marketing Technologist: JAZLYN BRUCE ([phone])[facility] ([facility])[address] [place] [address] Eosinophils/100 WBC (Bld) 0.0 % Normal 0.0-6.0 [facility] Comment on above: Performed By: #### L [id number] ####Marketing Technologist: JAZLYN BRUCE ([phone])[facility])[address] [place] [address] Erythrocyte distribution width (RBC) [Ratio] 12.8 % Normal 11.5-15.0 [facility] Comment on above: Performed By: #### L [id number] ####Marketing Technologist: JAZLYN BRUCE ([phone])[facility] ([facility])[address] [place] [address] Hematocrit (Bld) [Volume fraction] 42.1 % Normal 40.0-52.0 [facility] Comment on above: Performed By: #### L [id number] ####Marketing Technologist: JAZLYN BRUCE ([phone])[facility])[address] [place] [address] Hemoglobin (Bld) [Mass/Vol] 14.3 g/dL Normal 13.0-18.0 [facility] Comment on above: Performed By: #### L [id number] ####Marketing Technologist: JAZLYN BRUCE ([phone])[facility])[address] [place] [address] IMMATURE GRANS % 0.2 % Normal 0.0-2.0 [facility] Comment on above: Performed By: #### L [id number] ####Marketing Technologist: JAZLYN BRUCE ([phone])[facility])[address] [place] [address] IMMATURE GRANS ABSOLUTE 0.0 10*3/uL Normal <0.1 [facility] Comment on above: Performed By: #### L [id number] ####Marketing Technologist: JAZLYN BRUCE ([phone])[facility])[address] [place] [address] IPF 4 Normal [facility] Comment on above: Performed By: #### L [id number] ####Marketing Technologist: JAZLYN BRUCE ([phone])[facility])[address] [place] [address] Lymphocytes (Bld) [#/Vol] 0.7 10*3/uL Low 1.0-4.3 [facility] Comment on above: Performed By: #### L [id number] ####Marketing Technologist: JAZLYN BRUCE ([phone])[facility])[address] [place] [address] Lymphocytes/100 WBC (Bld) 12.7 % Low 15.0-45.0 [facility] Comment on above: Performed By: #### L [id number] ####Marketing Technologist: JAZLYN BRUCE ([phone])[facility])[address] [place] [address] MCH (RBC) [Entitic mass] 31.0 pg Normal 26.0-34.0 [facility] Comment on above: Performed By: #### L [id number] ####Marketing Technologist: JAZLYN [id number])[facility] ([facility])[address] [place] [address] MCHC 34.0 % Normal 30.5-36.0 [facility] Comment on above: Performed By: #### L [id number] ####Marketing Technologist: JAZLYN BRUCE ([phone])[facility] ([facility])[address] [place] [address] MCV (RBC) [Entitic vol] 91.3 fL Normal 77.0-99.0 [facility] Comment on above: Performed By: #### L [id number] ####Marketing Technologist: JAZLYN BRUCE ([phone])[facility] ([facility])[address] [place] [address] Monocytes (Bld) [#/Vol] 0.7 10*3/uL Normal 0.0-0.9 [facility] Comment on above: Performed By: #### L [id number] ####Marketing Technologist: JAZLYN BRUCE ([phone])[facility] ([facility])[address] [place] [address] Monocytes/100 WBC (Bld) 13.0 % Normal 5.0-13.0 [facility] Comment on above: Performed By: #### L [id number] ####Marketing Technologist: JAZLYN BRUCE ([phone])[facility] ([facility])[address] [place] [address] NEUTROPHILS ABSOLUTE 4.1 10*3/uL Normal 1.8-7.5 [facility] Comment on above: Performed By: #### L [id number] ####Marketing Technologist: JAZLYN BRUCE ([phone])[facility] ([facility])[address] [place] [address] Neutrophils/100 WBC (Bld) 73.9 % Normal 38.0-82.0 [facility] Comment on above: Performed By: #### L [id number] ####Marketing Technologist: JAZLYN BRUCE ([phone])[facility] ([facility])[address] [place] [address] NRBC 0.0 /100 WBCs Normal 0.0-2.0 [facility] Comment on above: Performed By: #### L [id number] ####Marketing Technologist: JAZLYN BRUCE ([phone])[facility] ([facility])[address] [place] [address] Platelet mean volume (Bld) [Entitic vol] 10.8 fL Normal 9.0-12.7 [facility] Comment on above: Performed By: #### L [id number] ####Marketing Technologist: JAZLYN BRUCE ([phone])[facility] ([facility])[address] [place] [address] Platelets (Bld) [#/Vol] 105 10*3/uL Low 140-440 [facility] Comment on above: Performed By: #### L [id number] ####Marketing Technologist: JAZLYN BRUCE ([phone])[facility] ([facility])[address] [place] [address] RBC (Bld) [#/Vol] 4.61 10*6/uL Normal 4.40-5.90 [facility] Comment on above: Performed By: #### L [id number] ####Marketing Technologist: JAZLYN BRUCE ([phone])[facility] ([facility])[address] [place] [address] WBC (Bld) [#/Vol] 5.5 10*3/uL Normal 3.6-10.7 [facility] Comment on above: Performed By: #### L [id number] ####Marketing Technologist: JAZLYN BRUCE ([phone])[facility] ([facility])[address] [place] [address] Laboratory - Coagulationon 0 03-17-2025 aPTT Coag (PPP) [Time] 32.5 s High 20.0 - 30.5 s [facility] INR Coag (PPP) [Relative time] 1.1 {INR} 0.9 - 1.1 [facility] Comment on above: Recommended Anticoag ulant Therapy: SEE BELOW ----- INR of 2.0 - 3.0 : - Prophylaxis of Venous Thrombosis (high-risk surgery) - Treatment of Venous Thrombosis - Treatment of Pulmonary Embolism (Includes tissue heart valves, Acute Myocardial Infarction to prevent systemic embolism, Valvular Heart Disease, and Atrial Fibrillation) ----- INR of 2.5 - 3.5 : - Mechanical Prosthetic Valves (high risk) - If oral anticoagulant therapy is used to prevent Myocardial Infarction PT Coag (Bld) [Time] 11.2 s 9.0 - 12.0 s [facility] No Panel Informationon 03-17 Interpretation and review of laboratory results Abnormal [facility] PROTIME AND APTTon aPTT Coag (Bld) [Time] 32.5 s High 20.0-30.[address] [facility] Comment on above: Performed By: #### L [id number] ####Marketing Technologist: JAZLYN BRUCE ([phone])[address] INR Coag (PPP) [Relative time] 1.1 {INR} Normal 0.9-1.1 [facility] Comment on above: Result Comment: Jean-Paul mmended Anticoagulant Therapy: SEE BELOW ----- INR of 2.0 - 3.0 : - Prophylaxis of Venous Thrombosis (high-risk surgery) - Treatment of Venous Thrombosis - Treatment of Pulmonary Embolism (Includes tissue heart valves, Acute Myocardial Infarction to prevent systemic embolism, Valvular Heart Disease, and Atrial Fibrillation) ----- INR of 2.5 - 3.5 : - Mechanical Prosthetic Valves (high risk) - If oral anticoagulant therapy is used to prevent Myocardial Infarction Performed By: #### L [id number] ####Marketing Technologist: JAZLYN BRUCE ([phone])[facility])[address] [place] [address] PT Coag (PPP) [Time] 11.2 s Normal 9.0-12.0 [facility] Comment on above: Performed By: #### L [id number] ####Marketing Technologist: JAZLYN BRUCE ([phone])[address] XR ABDOMEN 1 VIEWon 03-17-20 25 XR ABDOMEN 1 VIEW Patient Name: FRANCISCO RAMOS : 1950 Exam Date/Time: 03/17/2025 07:28 Procedure: XR ABDOMEN 1 VIEW Ordering Provider: JARRETT TRUONG Reason For Exam: Eval colonic distention, rectal tube placement for decompression ABDOMEN: CLINICAL INDICATION: Eval colonic distention, rectal tube placement for decompression. . TECHNIQUE: Supine abdomen and pelvis COMPARISON: One day prior FINDINGS: ET tube images from the pelvis and overlies the left midabdomen corresponding to clinically described rectal tube. The bowel gas pattern is unremarkable. No abnormal soft tissue calcifications are noted. There has been prior vertebroplasty at the L1 level. IMPRESSION: Rectal tube has been advanced probably within tortuous sigmoid colon. No gaseous distention of bowel loops Report Dictated on Electronically Signed By: Leo Dee MD Electronically Signed Date/Time: 03/17/2025 8:[address] [facility] XR Abdomen Single viewon Rectal tube has been advanced probably within tortuous sigmoid colon. No gaseous distention of bowel loops Report Dictated on Electronically Signed By: Leo Dee MD Electronically Signed Date/Time: 03/17/2025 8:00 AM EDT [facility] Patient Name: FRANCISCO RAMOS : 1950 Exam Date/Time: 03/17/2025 07:28 Procedure: XR ABDOMEN 1 VIEW Ordering Provider: JARRETT TRUONG Reason For Exam: Eval colonic distention, rectal tube placement for decompression ABDOMEN: CLINICAL INDICATION: Eval colonic distention, rectal tube placement for decompression. . TECHNIQUE: Supine abdomen and pelvis COMPARISON: One day prior FINDINGS: ET tube images from the pelvis and overlies the left midabdomen corresponding to clinically described rectal tube. The bowel gas pattern is unremarkable. No abnormal soft tissue calcifications are noted. There has been prior vertebroplasty at the L1 level. [facility] Leo Dee MD - 03/17/2025 Patient Name: FRANCISCO RAMOS : 1950 [facility]#: [id number] Exam Date/Time: 03/17/2025 07:28 Procedure: XR ABDOMEN 1 VIEW Ordering Provider: JARRETT TRUONG Reason For Exam: Eval colonic distention, rectal tube placement for decompression ABDOMEN: CLINICAL INDICATION: Eval colonic distention, rectal tube placement for decompression. . TECHNIQUE: Supine abdomen and pelvis COMPARISON: One day prior FINDINGS: ET tube images from the pelvis and overlies the left midabdomen corresponding to clinically described rectal tube. The bowel gas pattern is unremarkable. No abnormal soft tissue calcifications are noted. There has been prior vertebroplasty at the L1 level. IMPRESSION: Rectal tube has been advanced probably within tortuous sigmoid colon. No gaseous distention of bowel loops Report Dictated on Electronically Signed By: Leo Dee MD Electronically Signed Date/Time: 03/17/2025 8:00 AM EDT [facility] Radiology Study observation (narrative) [facility] XR Abdomen Single viewOrdere d By: Leo Dee on 03-17-2025 [facility] Work Phone: Bilirubin Test strip Ql (U)O rdered By: Brijesh Frederick on 03-16-2025 Bilirubin Ql (U) Negative Negative [facility] CBC W Auto Differential pane l (Bld)on 03-16-2025 Basophils (Bld) [#/Vol] 0 10*3/uL 0.0 - 0.2 10*3/uL [facility] Basophils/100 WBC (Bld) 0 % 0.0 - 2.0 % [facility] Eosinophils (Bld) [#/Vol] 0 10*3/uL 0.0 - 0.5 10*3/uL [facility] Eosinophils/100 WBC (Bld) 0 % 0.0 - 6.0 % [facility] Erythrocyte distribution width (RBC) [Ratio] 13 % 11.5 - 15.0 % [facility] Hematocrit (Bld) [Volume fraction] 38.8 % Low 40.0 - 52.0 % [facility] Hemoglobin (Bld) [Mass/Vol] 12.9 g/dL Low 13.0 - 18.0 g/dL [facility] Immature granulocytes (Bld) [#/Vol] 0 10*3/uL NINF - 0.1 10*3/uL [facility] Immature granulocytes/100 WBC (Bld) 0.3 % 0.0 - 2.0 % [facility] Interpretation and review of laboratory results Abnormal [facility] IPF 4 [facility] Lymphocytes (Bld) [#/Vol] 0.8 10*3/uL Low 1.0 - 4.3 10*3/uL [facility] Lymphocytes/100 WBC (Bld) 13.6 % Low 15.0 - 45.0 % [facility] MCH (RBC) [Entitic mass] 30.6 pg 26. 0 - 34.0 pg [facility] MCHC (RBC) [Mass/Vol] 33.2 % 30.5 - 36.0 % [facility] MCV (RBC) [Entitic vol] 92.2 fL 77.0 - 99.0 fL [facility] Monocytes (Bld) [#/Vol] 0.6 10*3/uL 0.0 - 0.9 10*3/uL [facility] Monocytes/100 WBC (Bld) 10.5 % 5.0 - 13.0 % [facility] Neutrophils (Bld) [#/Vol] 4.5 10*3/uL 1.8 - 7.5 10*3/uL [facility] Neutrophils/100 WBC (Bld) 75.6 % 38.0 - 82.0 % [facility] Nucleated RBC/100 WBC (Bld) [Ratio] 0 % [facility] Platelet mean volume (Bld) [Entitic vol] 10.8 fL 9.0 - 12.7 fL [facility] Platelets (Bld) [#/Vol] 126 10*3/uL Low 140 - 440 10*3/uL [facility] RBC (Bld) [#/Vol] 4.21 10*6/uL Low 4.40 - 5.9 0 10*6/uL [facility] WBC (Bld) [#/Vol] 6 10*3/uL 3.6 - 10.7 10*3/uL [facility] CBC WITH AUTO DIFFERENTIALon 03-16-2025 Basophils (Bld) [#/Vol] 0.0 10*3/uL Normal 0.0-0.2 [facility] Comment on above: Performed By: #### L [id number] ####Marketing Technologist: JAZLYN BRUCE ([phone])[facility])[address] [place] [address] Basophils/100 WBC (Bld) 0.0 % Normal 0.0-2.0 [facility] Comment on above: Performed By: #### L [id number] ####Marketing Technologist: JAZLYN BRUCE ([phone])[facility])[address] [place] [address] Eosinophils (Bld) [#/Vol] 0.0 10*3/uL Normal 0.0-0.5 [facility] Comment on above: Performed By: #### L [id number] ####Marketing Technologist: JAZLYN BRUCE ([phone])[facility])[address] [place] [address] Eosinophils/100 WBC (Bld) 0.0 % Normal 0.0-6.0 [facility] Comment on above: Performed By: #### L [id number] ####Marketing Technologist: JAZLYN BRUCE ([phone])[facility])[address] [place] [address] Erythrocyte distribution width (RBC) [Ratio] 13.0 % Normal 11.5-15.0 [facility] Comment on above: Performed By: #### L [id number] ####Marketing Technologist: JAZLYN BRUCE ([phone])[facility])[address] [place] [address] Hematocrit (Bld) [Volume fraction] 38.8 % Low 40.0-52.0 [facility] Comment on above: Performed By: #### L [id number] ####Marketing Technologist: JAZLYN BRUCE ([phone])[facility])[address] [place] [address] Hemoglobin (Bld) [Mass/Vol] 12.9 g/dL Low 13.0-18.0 [facility] Comment on above: Performed By: #### L [id number] ####Marketing Technologist: JAZLYN BRUCE ([phone])[facility])[address] [place] [address] IMMATURE GRANS % 0.3 % Normal 0.0-2.0 [facility] Comment on above: Performed By: #### L [id number] ####Marketing Technologist: JAZLYN BRUCE ([phone])[facility])[address] [place] [address] IMMATURE GRANS ABSOLUTE 0.0 10*3/uL Normal <0.1 [facility] Comment on above: Performed By: #### L [id number] ####Marketing Technologist: JAZLYN BRUCE ([phone])[facility])[address] [place] [address] IPF 4 Normal [facility] Comment on above: Performed By: #### L [id number] ####Marketing Technologist: JAZLYN BRUCE ([phone])[facility])[address] [place] [address] Lymphocytes (Bld) [#/Vol] 0.8 10*3/uL Low 1.0-4.3 [facility] Comment on above: Performed By: #### L [id number] ####Marketing Technologist: JAZLYN BRUCE ([phone])[facility])[address] [place] [address] Lymphocytes/100 WBC (Bld) 13.6 % Low 15.0-45.0 [facility] Comment on above: Performed By: #### L [id number] ####Marketing Technologist: JAZLYN BRUCE ([phone])[facility])[address] [place] [address] MCH (RBC) [Entitic mass] 30.6 pg Normal 26.0-34.0 [facility] Comment on above: Performed By: #### L [id number] ####Marketing Technologist: JAZLYN BRUCE ([phone])[facility])[address] [place] [address] MCHC 33.2 % Normal 30.5-36.0 [facility] Comment on above: Performed By: #### L [id number] ####Marketing Technologist: JAZLYN BRUCE ([phone])[facility] ([facility])[address] [place] [address] MCV (RBC) [Entitic vol] 92.2 fL Normal 77.0-99.0 S [facility] Comment on above: Performed By: #### L [id number] ####Marketing Technologist: JAZLYN BRUCE ([phone])[facility] ([facility])[address] [place] [address] Monocytes (Bld) [#/Vol] 0.6 10*3/uL Normal 0.0-0.9 [facility] Comment on above: Performed By: #### L [id number] ####Marketing Technologist: JAZLYN BRUCE ([phone])[facility] ([facility])[address] [place] [address] Monocytes/100 WBC (Bld) 10.5 % Normal 5.0-13.0 S [facility] Comment on above: Performed By: #### L [id number] ####Marketing Technologist: JAZLYN BRUCE ([phone])[facility] ([facility])[address] [place] [address] NEUTROPHILS ABSOLUTE 4.5 10*3/uL Normal 1.8-7.5 [facility] Comment on above: Performed By: #### L [id number] ####Marketing Technologist: JAZLYN BRUCE ([phone])[facility] ([facility])[address] [place] [address] Neutrophils/100 WBC (Bld) 75.6 % Normal 38.0-82.0 [facility] Comment on above: Performed By: #### L [id number] ####Marketing Technologist: JAZLYN BRUCE ([phone])[facility] ([facility])[address] [place] [address] NRBC 0.0 /100 WBCs Normal 0.0-2.0 [facility] Comment on above: Performed By: #### L [id number] ####Marketing Technologist: JAZLYN BRUCE ([phone])[facility])[address] [place] [address] Platelet mean volume (Bld) [Entitic vol] 10.8 fL Normal 9.0-12.7 [facility] Comment on above: Performed By: #### L [id number] ####Marketing Technologist: JAZLYN BRUCE ([phone])[facility] ([facility])[address] [place] [address] Platelets (Bld) [#/Vol] 126 10*3/uL Low 140-440 [facility] Comment on above: Performed By: #### L [id number] ####Marketing Technologist: JAZLYN BRUCE ([phone])[facility] ([facility])[address] [place] [address] RBC (Bld) [#/Vol] 4.21 10*6/uL Low 4.40-5.90 [facility] Comment on above: Performed By: #### L [id number] ####Marketing Technologist: JAZLYN BRUCE ([phone])[facility] ([facility])[address] [place] [address] WBC (Bld) [#/Vol] 6.0 10*3/uL Normal 3.6-10.7 [facility] Comment on above: Performed By: #### L [id number] ####Marketing Technologist: JAZLYN BRUCE ([phone])[facility])[address] [place] [address] COMPREHENSIVE METABOLIC PANE Ken 03-16-2025 Albumin [Mass/Vol] 3.5 g/dL Normal 3.4-4.8 [facility] Comment on above: Performed By: #### L [id number], [id number] ####Marketing Technologist: JAZLYN BRUCE ([phone])[facility])[address] [place] [address] ALP [Catalytic activity/Vol] 67 U/L Normal 40-150 [facility] Comment on above: Performed By: #### L [id number], [id number] ####Marketing Technologist: JAZLYN BRUCE ([phone])[facility])[address] [place] [address] [place] ALT [Catalytic activity/Vol] 23 U/L Normal <40 [facility] Comment on above: Performed By: #### L [id number], [id number] ####Marketing Technologist: JAZLYN BRUCE ([phone])[facility] ([facility])[address] [place] [address] Anion gap [Moles/Vol] 4 mmol/L Normal 3-13 [facility] Comment on above: Performed By: #### L [id number], [id number] ####Marketing Technologist: JAZLYN BRUCE ([phone])[facility] ([facility])[address] [place] [address] AST [Catalytic activity/Vol] 26 U/L Normal <34 [facility] Comment on above: Performed By: #### L [id number], [id number] ####Marketing Technologist: JAZLYN BRUCE ([id number])[facility] ([facility])[address] [place] [address] Bilirubin [Mass/Vol] 0.5 mg/dL Normal <1.2 [facility] Comment on above: Performed By: #### L [id number], [id number] ####Marketing Technologist: JAZLYN BRUCE ([phone])[facility] ([facility])[address] [place] [address] Calcium [Mass/Vol] 8.5 mg/dL Low 8.8-10.0 [facility] Comment on above: Performed By: #### L [id number], [id number] ####Marketing Technologist: JAZLYN BRUCE ([phone])[facility] ([facility])[address] [place] [address] [place] Chloride [Moles/Vol] 110 mmol/L High 98-107 [facility] Comment on above: Performed By: #### L [id number], [id number] ####Marketing Technologist: JAZLYN BRUCE ([phone])[facility] ([facility])[address] [place] [address] [place] CO2 [Moles/Vol] 23 mmol/L Normal 23-31 [facility] Comment on above: Performed By: #### L [id number], [id number] ####Marketing Technologist: JAZLYN BRUCE ([id number])[facility] ([facility])[address] [place] [address] Creatinine [Mass/Vol] 0.78 mg/dL Normal 0.72-1.25 [facility] Comment on above: Performed By: #### L [id number], LAB17 ####Marketing Technologist: JAZLYN BRUCE ([id number])[facility])[address] [place] [address] GLOMERULAR FILTRATION RATE ML/MIN/1.73 SQ M.PREDICTED >90.0 Normal >60.0 [facility] Comment on above: Result Comment: Calc ulation based on the Chronic Kidney Disease Epidemiology Collaboration (CKD-EPI) equation refit without adjustment for race Performed By: #### L AB99, LAB17 ####Marketing Technologist: JAZLYN BRUCE ([id number])[facility])[address] [place] [address] Glucose [Mass/Vol] 100 mg/dL Normal 82-115 [facility] Comment on above: Performed By: #### L AB99, LAB17 ####Marketing Technologist: JAZLYN BRUCE ([phone])[facility])[address] [place] [address] Potassium [Moles/Vol] 3.8 mmol/L Normal 3.5-5.1 [facility] Comment on above: Result Comment: [facility] potassium values may be up to 0.5 mmol/L lower than serum values. Performed By: #### L AB99, LAB17 ####Marketing Technologist: JAZLYN BRUCE ([phone])[facility] ([facility])[address] [place] [address] [place] Protein [Mass/Vol] 6.5 g/dL Normal 6.4-8.3 [facility] Comment on above: Performed By: #### L AB99, [id number] ####Marketing Technologist: JAZLYN BRUCE ([phone])[facility] ([facility])[address] [place] [address] [place] Sodium [Moles/Vol] 137 mmol/L Normal 136-145 [facility] Comment on above: Performed By: #### L AB99, [id number] ####Marketing Technologist: JAZLYN BRUCE ([phone])[facility] ([facility])[address] [place] [address] Urea nitrogen [Mass/Vol] 18 mg/dL Normal 9-23 [facility] Comment on above: Performed By: #### L AB99, LAB17 ####Marketing Technologist: JAZLYN BRUCE ([phone])[facility] ([facility])[address] [place] [address] CT ABDOMEN PELVIS W CONTRAST on 03-16-2025 CT ABDOMEN PELVIS W CONTRAST [facility] 1950 [id number] Exam Date/Time: 03/16/2025 07:45 Procedure: CT ABDOMEN PELVIS W CONTRAST Ordering Provider: BARRAZA ANTHONY Reason For Exam: Abdominal pain, acute, nonlocalized EXAM: CT Abdomen and Pelvis With Intravenous Contrast CLINICAL INDICATION: Abdominal pain, acute, nonlocalized TECHNIQUE: Axial computed tomography images of the abdomen and pelvis with intravenous contrast. This CT exam was performed using one or more of the following dose reduction techniques: automated exposure control, adjustment of the mA and/or kV according to patient size, and/or use of iterative reconstruction technique. COMPARISON: None. FINDINGS: LUNG BASES: Unremarkable. No mass. No consolidation. ABDOMEN: LIVER: Unremarkable. No mass. GALLBLADDER AND BILE DUCTS: Unremarkable. No calcified stones. No ductal dilation. PANCREAS: Unremarkable. No mass. No ductal dilation. SPLEEN: The spleen is enlarged measuring 8.2 x 14.2 x 10.1 cm. ADRENALS: Unremarkable. No mass. KIDNEYS AND URETERS: Unremarkable. No solid mass. No hydronephrosis. STOMACH AND BOWEL: There is tortuosity and redundancy of the sigmoid colon swirling of mesenteric vessels. There are two areas of luminal narrowing of the sigmoid colon, with areas of sigmoid colon dilation up to 8.6 cm in diameter. Proximal to these areas of narrowing there is a moderate to large amount of stool. The majority of the remainder of the colon is normal in caliber, but with mild distention of the hepatic flexure. The small bowel is normal in caliber. There is mural thickening in the rectum with adjacent fat stranding. PELVIS: APPENDIX: The appendix is not identified, however there is no pericecal fat stranding. BLADDER: Unremarkable. No mass. REPRODUCTIVE: The prostate is enlarged. ABDOMEN and PELVIS: INTRAPERITONEAL SPACE: Unremarkable. No free air. No significant fluid collection. BONES/JOINTS: No acute fracture. VASCULATURE: Atherosclerotic disease. No abdominal aortic aneurysm. LYMPH NODES: Unremarkable. No enlarged lymph nodes. IMPRESSION: 1. Redundant and tortuous sigmoid colon with swirling of mesenteric vessels. Two areas of luminal narrowing in the sigmoid colon with colonic distention. Findings could be due to large bowel obstruction including volvulus. Consider endoscopic follow-up after resolution of the acute symptoms to exclude an underlying lesion. 2. Mural thickening in the rectum with adjacent fat stranding compatible with proctitis. 3. Moderate to large stool throughout the colon. Consider constipation. Mild dilation of the proximal colon may be due to ileus. 4. Splenomegaly. 5. Prostatomegaly. CRITICAL TEST RESULT COMMUNICATION: Notification of these findings was made to JAMEEL BARRAZA via [employer] on 03/16/2025 8:35 AM EDT. Report Dictated on Electronically Signed By: Sebastian Díaz MD Electronically Signed Date/Time: 03/16/2025 8:35 AM EDT Chief complaints Abdominal Pain CT abdomen pelvis w contrast Abdominal pain, acute, nonlocalized Normal [facility] CT Abdomen and Pelvis W cont rast Cassidy 03-16-2025 1. Redundant and tortuous sigmoid colon with swirling of mesenteric vessels. Two areas of luminal narrowing in the sigmoid colon with colonic distention. Findings could be due to large bowel obstruction including volvulus. Consider endoscopic follow-up after resolution of the acute symptoms to exclude an underlying lesion. 2. Mural thickening in the rectum with adjacent fat stranding compatible with proctitis. 3. Moderate to large stool throughout the colon. Consider constipation. Mild dilation of the proximal colon may be due to ileus. 4. Splenomegaly. 5. Prostatomegaly. CRITICAL TEST RESULT COMMUNICATION: Notification of these findings was made to JAMEEL BARRAZA via [employer] on 03/16/2025 8:35 AM EDT. Report Dictated on Electronically Signed By: Sebastian Díaz MD Electronically Signed Date/Time: 03/16/2025 8:35 AM EDT [employer] Patient Name: FRANCISCO RAMOS : 1950 [facility]#: [id number] Exam Date/Time: 03/16/2025 07:45 Procedure: CT ABDOMEN PELVIS W CONTRAST Ordering Provider: BARRAZA ANTHONY Reason For Exam: Abdominal pain, acute, nonlocalized EXAM: CT Abdomen and Pelvis With Intravenous Contrast CLINICAL INDICATION: Abdominal pain, acute, nonlocalized TECHNIQUE: Axial computed tomography images of the abdomen and pelvis with intravenous contrast. This CT exam was performed using one or more of the following dose reduction techniques: automated exposure control, adjustment of the mA and/or kV according to patient size, and/or use of iterative reconstruction technique. COMPARISON: None. FINDINGS: LUNG BASES: Unremarkable. No mass. No consolidation. ABDOMEN: LIVER: Unremarkable. No mass. GALLBLADDER AND BILE DUCTS: Unremarkable. No calcified stones. No ductal dilation. PANCREAS: Unremarkable. No mass. No ductal dilation. SPLEEN: The spleen is enlarged measuring 8.2 x 14.2 x 10.1 cm. ADRENALS: Unremarkable. No mass. KIDNEYS AND URETERS: Unremarkable. No solid mass. No hydronephrosis. STOMACH AND BOWEL: There is tortuosity and redundancy of the sigmoid colon swirling of mesenteric vessels. There are two areas of luminal narrowing of the sigmoid colon, with areas of sigmoid colon dilation up to 8.6 cm in diameter. Proximal to these areas of narrowing there is a moderate to large amount of stool. The majority of the remainder of the colon is normal in caliber, but with mild distention of the hepatic flexure. The small bowel is normal in caliber. There is mural thickening in the rectum with adjacent fat stranding. PELVIS: APPENDIX: The appendix is not identified, however there is no pericecal fat stranding. BLADDER: Unremarkable. No mass. REPRODUCTIVE: The prostate is enlarged. ABDOMEN and PELVIS: INTRAPERITONEAL SPACE: Unremarkable. No free air. No significant fluid collection. BONES/JOINTS: No acute fracture. VASCULATURE: Atherosclerotic disease. No abdominal aortic aneurysm. LYMPH NODES: Unremarkable. No enlarged lymph nodes. [facility] [employer] Sebastian Díaz MD - 03/16/2025 Patient Name: FRANCISCO RAMOS : 1950 [facility]#: [id number] Exam Date/Time: 03/16/2025 07:45 Procedure: CT ABDOMEN PELVIS W CONTRAST Ordering Provider: BARRAZA ANTHONY Reason For Exam: Abdominal pain, acute, nonlocalized EXAM: CT Abdomen and Pelvis With Intravenous Contrast CLINICAL INDICATION: Abdominal pain, acute, nonlocalized TECHNIQUE: Axial computed tomography images of the abdomen and pelvis with intravenous contrast. This CT exam was performed using one or more of the following dose reduction techniques: automated exposure control, adjustment of the mA and/or kV according to patient size, and/or use of iterative reconstruction technique. COMPARISON: None. FINDINGS: LUNG BASES: Unremarkable. No mass. No consolidation. ABDOMEN: LIVER: Unremarkable. No mass. GALLBLADDER AND BILE DUCTS: Unremarkable. No calcified stones. No ductal dilation. PANCREAS: Unremarkable. No mass. No ductal dilation. SPLEEN: The spleen is enlarged measuring 8.2 x 14.2 x 10.1 cm. ADRENALS: Unremarkable. No mass. KIDNEYS AND URETERS: Unremarkable. No solid mass. No hydronephrosis. STOMACH AND BOWEL: There is tortuosity and redundancy of the sigmoid colon swirling of mesenteric vessels. There are two areas of luminal narrowing of the sigmoid colon, with areas of sigmoid colon dilation up to 8.6 cm in diameter. Proximal to these areas of narrowing there is a moderate to large amount of stool. The majority of the remainder of the colon is normal in caliber, but with mild distention of the hepatic flexure. The small bowel is normal in caliber. There is mural thickening in the rectum with adjacent fat stranding. PELVIS: APPENDIX: The appendix is not identified, however there is no pericecal fat stranding. BLADDER: Unremarkable. No mass. REPRODUCTIVE: The prostate is enlarged. ABDOMEN and PELVIS: INTRAPERITONEAL SPACE: Unremarkable. No free air. No significant fluid collection. BONES/JOINTS: No acute fracture. VASCULATURE: Atherosclerotic disease. No abdominal aortic aneurysm. LYMPH NODES: Unremarkable. No enlarged lymph nodes. IMPRESSION: 1. Redundant and tortuous sigmoid colon with swirling of mesenteric vessels. Two areas of luminal narrowing in the sigmoid colon with colonic distention. Findings could be due to large bowel obstruction including volvulus. Consider endoscopic follow-up after resolution of the acute symptoms to exclude an underlying lesion. 2. Mural thickening in the rectum with adjacent fat stranding compatible with proctitis. 3. Moderate to large stool throughout the colon. Consider constipation. Mild dilation of the proximal colon may be due to ileus. 4. Splenomegaly. 5. Prostatomegaly. CRITICAL TEST RESULT COMMUNICATION: Notification of these findings was made to JAMEEL BARRAZA via [employer] Secure Chat on 03/16/2025 8:35 AM EDT. Report Dictated on Electronically Signed By: Sebastian Díaz MD Electronically Signed Date/Time: 03/16/2025 8:35 AM EDT [facility] Radiology Study observation (narrative) [facility] CT Abdomen and Pelvis W cont rast IVOrdered By: Sebastian Díaz on 03-16-2025 [facility] Work Phone: Comprehensive metabolic 1998 panelon 03-16-2025 Albumin [Mass/Vol] 3.5 g/dL 3.4 - 4.8 g/dL [facility] ALP [Catalytic activity/Vol] 67 U/L 40 - 150 U/L [facility] ALT [Catalytic activity/Vol] 23 U/L [facility] - 40 U/L [facility] Anion gap [Moles/Vol] 4 mmol/L 3 - 13 mmol/L [facility] AST [Catalytic activity/Vol] 26 U/L [facility] - 34 U/L [facility] Bilirubin [Mass/Vol] 0.5 mg/dL [facility] - 1.2 mg/dL [facility] Calcium [Mass/Vol] 8.5 mg/dL Low 8.8 - 10. 0 mg/dL [facility] Chloride [Moles/Vol] 110 mmol/L High 98 - 10 7 mmol/L [facility] CO2 [Moles/Vol] 23 mmol/L 23 - 31 mmol/L [facility] Creatinine [Mass/Vol] 0.78 mg/dL 0.72 - 1.25 mg/dL [facility] GFR/1.73 sq M.predicted (S/P/Bld) [Vol rate/Area] - PINF [facility] Comment on above: Calculation based on the Chronic Kidney Disease Epidemiology Collaboration (CKD-EPI) equation refit without adjustment for race Glucose [Mass/Vol] 100 mg/dL 82 - 115 mg/dL [facility] Interpretation and review of laboratory results Abnormal [facility] Potassium [Moles/Vol] 3.8 mmol/L 3.5 - 5.1 mmol/L [facility] Comment on above: Plasma potassium sia ues may be up to 0.5 mmol/L lower than serum values. Protein [Mass/Vol] 6.5 g/dL 6.4 - 8.3 g/dL [facility] Sodium [Moles/Vol] 137 mmol/L 136 - 145 mmol/L [facility] Urea nitrogen [Mass/Vol] 18 mg/dL 9 - 23 mg/d L [facility] ED Nursing Noteon 03-16-2025 ED Nursing Note Received report from JOSÉ LUIS Mujica Normal [facility] ED Provider Noteon ED Provider Note EMERGENCY DEPARTMENT ENCOUNTER Pt Name: Francisco Ramos Birthdate 1950 Date of evaluation: 03/16/2025 ED Provider: Jameel Barraza DO CHIEF COMPLAINT Chief Complaint Patient presents with Abdominal Pain Transfer from [facility] for Colonoscopy due to a twisted colon. Pt reports that his symptoms began a few hours ago. Denies any N/V/D. Pt is A&ox 3. Denies any other complaints at this time. HISTORY OF PRESENT ILLNESS (Location/Symptom, Timing/Onset, Context/Setting, Quality, Duration, Modifying Factors, Severity) Note limiting factors. I wore appropriate PPE for the entirety of this encounter. HPI Francisco Ramos is a 74 y.o. male pmhx Parkinson's disease, CAD, HLD, memory issues who presents to the emergency department by ED transfer from [facility] ED for abd pain. Workup at [facility] revealed sigmoid volvulus. Pt unable to remember details due to memory loss but able to state pain started about 4 hours ago and was generalized. Current pain is 3/10. Pt denies any fevers, chills, cp, sob, n/v/d, hematochezia. Has been eating and drinking well recently.Pt reports he is comfortable and does not require pain meds at this time. Nursing Notes were reviewed. Limitations to history: Altered mental status/confusion Outside historians: EMS REVIEW OF SYSTEMS Review of Systems Pertinent Positive and Negatives listed in HPI PAST MEDICAL HISTORY Medical History[1] SURGICAL HISTORY Surgical History[2] CURRENT MEDICATIONS Current Discharge Medication List CONTINUE these medications which have NOT CHANGED Details carbidopa-levodopa (Parcopa) 25-250 MG disintegrating tablet Take 1 tablet by mouth 4 times daily. Take 1 and 1/2 tab at 6am. 1 tab at 10am. 1 and 1/2 tab at 2pm. 1 tab at 6pm ALLERGIES Seasonal FAMILY HISTORY Family History[3] SOCIAL HISTORY Social History[4] SCREENINGS Cody Coma Scale Best Eye Response: Spontaneous Best Verbal Response: Oriented Best Motor Response: Follows commands Cody Coma Scale Score: 15 PHYSICAL EXAM ED Triage Vitals Temp Pulse Resp BP -- -- -- -- SpO2 Temp src Heart Rate Source Patient Position -- -- -- -- BP Location FiO2 (%) -- -- Physical Exam Constitutional: General: He is not in acute distress. HENT: Head: Normocephalic and atraumatic. Cardiovascular: Rate and Rhythm: Normal rate. Heart sounds: Normal heart sounds. Pulmonary: Effort: Pulmonary effort is normal. Breath sounds: Normal breath sounds. Abdominal: General: There is distension. Palpations: Abdomen is soft. Tenderness: There is no abdominal tenderness. Neurological: Mental Status: He is alert. DIAGNOSTIC RESULTS RADIOLOGY (Per Emergency Physician): Interpretation per the Radiologist below, if available at the time of this note: XR abdomen 2 views supine and decubitus Final Result Rectal tube placement. Improved sigmoid colon distention. Mildly dilated proximal colon, possibly ileus, with a moderate to large amount of colonic stool. Report Dictated on Electronically Signed By: Sebastian Díaz MD Electronically Signed Date/Time: 03/16/2025 12:[address] abdomen pelvis w contrast Final Result 1. Redundant and tortuous sigmoid colon with swirling of mesenteric vessels. Two areas of luminal narrowing in the sigmoid colon with colonic distention. Findings could be due to large bowel obstruction including volvulus. Consider endoscopic follow-up after resolution of the acute symptoms to exclude an underlying lesion. 2. Mural thickening in the rectum with adjacent fat stranding compatible with proctitis. 3. Moderate to large stool throughout the colon. Consider constipation. Mild dilation of the proximal colon may be due to ileus. 4. Splenomegaly. 5. Prostatomegaly. CRITICAL TEST RESULT COMMUNICATION: Notification of these findings was made to JAMEEL BARRAZA via [facility] [employer] [facility] [employer] Secure Chat on 03/16/2025 8:35 AM EDT. Report Dictated on Electronically Signed By: Sebastian Díaz MD Electronically Signed Date/Time: 03/16/2025 8:35 AM EDT LABS: Labs Reviewed CBC WITH AUTO DIFFERENTIAL - Abnormal Result Value Auto WBC 6.0 RBC 4.21 (*) Hemoglobin 12.9 (*) Hematocrit 38.8 (*) MCV 92.2 MCH 30.6 MCHC 33.2 RDW 13.0 Platelets 126 (*) MPV 10.8 nRBC 0.0 Neutrophils Relative 75.6 Lymphocytes Relative 13.6 (*) Monocytes Relative 10.5 Eosinophils Relative 0.0 Basophils Relative 0.0 Immature Grans % 0.3 Neutrophils Absolute 4.5 Lymphocytes Absolute 0.8 (*) Monocytes Absolute 0.6 Eosinophils Absolute 0.0 Basophils Absolute 0.0 Immature Grans Absolute 0.0 IPF 4 COMPREHENSIVE METABOLIC PANEL - Abnormal SODIUM 137 POTASSIUM 3.8 CHLORIDE 110 (*) CARBON DIOXIDE 23 ANION GAP 4 UREA NITROGEN 18 CREATININE 0.78 GLUCOSE 100 CALCIUM 8.5 (*) AST (SGOT) 26 ALT 23 ALKALINE PHOSPHATASE 67 ALBU (more content not included)... Normal [facility] Ketones Test strip Ql (U)Ord ered By: Brijesh Frederick on 03-16-2025 Ketones Ql (U) 5 mg/dl High Negative [facility] LACTIC ACID WITH REFLEXon Lactate [Moles/Vol] 0.6 mmol/L Normal 0.5-2.2 [facility] Comment on above: Performed By: #### L [id number] ####Marketing Technologist: JAZLYN BRUCE ([phone])[address] LIPASEon 03-16-2025 Lipase [Catalytic activity/Vol] 11 U/L Normal <55 [facility] Comment on above: Performed By: #### L AB99, LAB17 ####Marketing Technologist: JAZLYN BRUCE ([phone])[place] [address] [place] Laboratory - Chemistry and C hemistry - challengeon 03-16-2025 Lipase [Catalytic activity/Vol] 11 U/L NINF - 55 U/L [facility] Lactate [Moles/Vol] 0.6 mmol/L 0.5 - 2. 2 mmol/L [facility] Lactic Acidon 03-16-2025 Lactate [Moles/Vol] mmol/L Normal 0.0-2.[address] [facility] Hospital Comment on above: Order Comment: Y Performed By: #### L 503.6005 #### [facility] Laboratory [address] [place], [address] Lactic acid measurementOrder ed By: Brijesh Frederick on 03-16-2025 Lactate [Moles/Vol] mmol/L 0.0-2.[address] [facility] Lipase [Catalytic activity/V ol]on 03-16-2025 Interpretation and review of laboratory results Normal [facility] Microscopic analysis of urin e for red blood cells (RBC)Ordered By: Brijesh Frederick on 03-16-2025 Microscopic analysis of urine for red blood cells (RBC) 0 SEEN /hpf 0-5 [facility] Mucus LM Ql (Urine sed)Order ed By: Brijesh Frederick on 03-16-2025 Mucus Ql (Urine sed) 0 SEEN /hpf [facility] Nitrite Test strip Ql (U)Ord ered By: Brijesh Frederick on 03-16-2025 Nitrite Ql (U) Negative Negative [facility] No Panel Informationon 03-16 [facility] Interpretation and review of laboratory results Normal [facility] Nursing Noteon 03-16-2025 Nursing Note Around 1830 patient chair alarm was going off, I responded and tried to assist patient back into the chair but patient was not properly responsive to my requests and began to get agitated even after I called his and had him speak with his over the phone. Dayana Means, NA came into the room to assist me to get the patient back to bed since he would not listen to sit back into the chair. Patient began to try and walk away from us fast. We were able to keep him from going too far by redirection and holding onto his arms. We explained he was a high fall risk due to his IV and catheter sutured into his rectum. Patient continued to be defiant and not listen trying to pull away from us with force. I called out for help. JOSÉ LUIS Madrid, JOSÉ LUIS Mon[place], and MARCELL Gonzalez came to our aid. Dr. Escudero with gen surg was contacted for new agitation, one time dose of haldol was ordered. Security was called to come in case we needed assistance to get him back to bed. Dayana was holding his hand on his hand to help guide him to the bed. I gave him the IM injection of haldol and patient became aggressive and started squeezing Dayana's fingers. Mercy had to pry patients hand off of Dayana's fingers. Security walked in at this time as patient was starting to escalate and tried to kick at Jacinda. Security assisted us to get him safely into the bed and restrain him. Dayana immediately sent to ice her fingers in tears from pain and shock. The officers took information to fill out an incident report and witnesses reports were filled out as well. Nikki Aguilar RN supervisor [employer] was notified of the incident. Normal [facility] Protein Test strip Ql (U)Ord ered By: Brijesh Frederick on 03-16-2025 Protein Ql (U) 30 mg/dl High Negative [facility] Squamous epithelial cells de tection in urine sediment by light microscopyOrdered By: Brijesh Frederick on 03-16-2025 Epithelial cells.squamous LM Ql (Urine sed) 0 SEEN /hpf 0-5 [facility] Urinalysis, Completeon 03-16 WBC 0-5 SEEN Normal 0-5 [facility] Comment on above: Order Comment: CLEAN CATCH Performed By: #### L 400.0001 ####[facility] [address] [place], [place], [id number] BILIRUBIN URINE Negative Normal Negative [facility] Comment on above: Order Comment: CLEAN CATCH Performed By: #### L 400.0001 ####[facility] [address] [place], [address] Clarity (U) Clear Normal Clear [facility] Comment on above: Order Comment: CLEAN CATCH Performed By: #### L 400.0001 ####[facility] [address] [place], [address] Color (U) Yellow Normal Yellow [facility] Comment on above: Order Comment: CLEAN CATCH Performed By: #### L 400.0001 ####[facility] [address] [place], [address] GLUCOSE, UR Normal Normal Normal [facility] Comment on above: Order Comment: CLEAN CATCH Performed By: #### L 400.0001 ####[facility] [address] [facility] [address] KETONE UR 5 mg/dl Abnormal Negative [facility] Comment on above: Order Comment: CLEAN CATCH Performed By: #### L 400.0001 ####[facility] [address] [place], [address] LEUK ESTERASE Negative Normal Negative [facility] Comment on above: Order Comment: CLEAN CATCH Performed By: #### L 400.0001 ####[facility] [address] [place], [address] Nitrite Ql (U) Negative Normal Negative [facility] Comment on above: Order Comment: CLEAN CATCH Performed By: #### L 400.0001 ####[facility] [address] [place], [address] OCCULT BLOOD-UR Negative Normal Negative [facility] Comment on above: Order Comment: CLEAN CATCH Performed By: #### L 400.0001 ####[facility] [address] [place], [address] pH UR 7.0 Normal 5.0 - 8.0 [facility] Comment on above: Order Comment: CLEAN CATCH Performed By: #### L 400.0001 ####[facility] [address] [facility] [address] PROT DIPSTX 30 mg/dl Abnormal Negative [facility] Comment on above: Order Comment: CLEAN CATCH Performed By: #### L 400.0001 ####[facility] [address] [place], [address] SP.GR. DIPSTX 1.010 Normal 1.002-1.030 [facility] Comment on above: Order Comment: CLEAN CATCH Performed By: #### L 400.0001 ####[facility] [address] [place], [address] UROBILI Normal Normal Normal [facility] Comment on above: Order Comment: CLEAN CATCH Performed By: #### L 400.0001 ####[facility] [address] [place], [address] BACTERIA 0 SEEN Normal None Seen [facility] Comment on above: Order Comment: CLEAN CATCH Performed By: #### L 400.0001 ####[facility] [address] [place], [address] EPI,SQUAMOUS 0 SEEN Normal 0-5 [facility] Comment on above: Order Comment: CLEAN CATCH Performed By: #### L 400.0001 ####[facility] [address] [place], [address] Mucus Ql (Urine sed) 0 SEEN Normal [facility] Comment on above: Order Comment: CLEAN CATCH Performed By: #### L 400.0001 ####[facility] [address] [place], [address] RBC 0 SEEN Normal 0-5 [facility] Comment on above: Order Comment: CLEAN CATCH Performed By: #### L 400.0001 ####[facility] [address] [place], [address] Urine clarityOrdered By: Maynor Frederick on 03-16-2025 Clarity (U) Clear Clear [facility] Urine color determinationOrd ered By: Brijesh Frederick on 03-16-2025 Color (U) Yellow Yellow [facility] Urine glucose detectionOrder ed By: Brijesh Frederick on 03-16-2025 Glucose Ql (U) Normal mg/dl Normal [facility] Urine leukocyte esterase det ection by dipstickOrdered By: Brijesh Frederick on 03-16-2025 Leukocyte esterase Test strip Ql (U) Negative Negative [facility] Urine pHOrdered By: Brijesh Blanco on 03-16-2025 pH (U) 7.0 [pH] 5.0 - 8.0 [facility] Urine sediment bacteria coun t by microscopy (number/high power field)Ordered By: Brijesh Frederick on 03-16-2025 Bacteria LM.HPF (Urine sed) [#/Area] 0 /[HPF] None Seen [facility] Urine specific gravity measu rementOrdered By: Brijesh Frederick on 03-16-2025 Specific gravity (U) [Rel density] 1.010 1.002-1.030 [facility] Urine urobilinogen measureme ntOrdered By: Brijesh Frederick on 03-16-2025 Urobilinogen Ql (U) Normal mg/dl Normal [facility] White blood cell countOrdere d By: Brijesh Frederick on 03-16-2025 White blood cell count 0-5 SEEN /hpf 0-5 [facility] XR ABDOMEN 2 VIEWS SUPINE AN D DECUBITUSon 03-16-2025 XR ABDOMEN 2 VIEWS SUPINE AND DECUBITUS Patient Name: FRANCISCO RAMOS : 1950 Exam Date/Time: 03/16/2025 12:55 Procedure: XR ABDOMEN 2 VIEWS SUPINE AND DECUBITUS Ordering Provider: HUNTER VISHNU Reason For Exam: s/p rectal tube placement for sigmoid volvulus EXAM TYPE: XR ABDOMEN 2 VIEWS SUPINE AND DECUBITUS EXAM DATE AND TIME: 03/16/2025 12:27 PM EDT INDICATION: 74 years Male with rectal tube placement COMPARISON: Earlier on the same day TECHNIQUE: AP supine and left lateral decubitus radiographs of the abdomen and pelvis were obtained. FINDINGS: Interval placement of a rectal tube. The previously seen significantly dilated loop of sigmoid colon is no longer identified. There is a large amount of stool throughout the colon with mild dilation of the proximal colon. No free air or air-fluid levels. No radiopaque urinary calculi. Degenerative changes are seen in the visualized spine. The visualized lung bases are unremarkable. IMPRESSION: Rectal tube placement. Improved sigmoid colon distention. Mildly dilated proximal colon, possibly ileus, with a moderate to large amount of colonic stool. Report Dictated on Electronically Signed By: Sebastian Díaz MD Electronically Signed Date/Time: 03/16/2025 12:53 PM EDT Normal [facility] XR Abdomen Supine and Latera l-decubituson 03-16-2025 Radiology Study observation (narrative) [facility] alth Rectal tube placement. Improved sigmoid colon distention. Mildly dilated proximal colon, possibly ileus, with a moderate to large amount of colonic stool. Report Dictated on Electronically Signed By: Sebastian Díaz MD Electronically Signed Date/Time: 03/16/2025 12:53 PM EDT [facility] Patient Name: FRANCISCO RAMOS : 1950 Exam Date/Time: 03/16/2025 12:55 Procedure: XR ABDOMEN 2 VIEWS SUPINE AND DECUBITUS Ordering Provider: HUNTER VISHNU Reason For Exam: s/p rectal tube placement for sigmoid volvulus EXAM TYPE: XR ABDOMEN 2 VIEWS SUPINE AND DECUBITUS EXAM DATE AND TIME: 03/16/2025 12:27 PM EDT INDICATION: 74 years Male with rectal tube placement COMPARISON: Earlier on the same day TECHNIQUE: AP supine and left lateral decubitus radiographs of the abdomen and pelvis were obtained. FINDINGS: Interval placement of a rectal tube. The previously seen significantly dilated loop of sigmoid colon is no longer identified. There is a large amount of stool throughout the colon with mild dilation of the proximal colon. No free air or air-fluid levels. No radiopaque urinary calculi. Degenerative changes are seen in the visualized spine. The visualized lung bases are unremarkable. [facility] Sebastian Díaz MD - 03/16/2025 Patient Name: FRANCISCO RAMOS : 1950 Exam Date/Time: 03/16/2025 12:55 Procedure: XR ABDOMEN 2 VIEWS SUPINE AND DECUBITUS Ordering Provider: HUNTER VISHNU Reason For Exam: s/p rectal tube placement for sigmoid volvulus EXAM TYPE: XR ABDOMEN 2 VIEWS SUPINE AND DECUBITUS EXAM DATE AND TIME: 03/16/2025 12:27 PM EDT INDICATION: 74 years Male with rectal tube placement COMPARISON: Earlier on the same day TECHNIQUE: AP supine and left lateral decubitus radiographs of the abdomen and pelvis were obtained. FINDINGS: Interval placement of a rectal tube. The previously seen significantly dilated loop of sigmoid colon is no longer identified. There is a large amount of stool throughout the colon with mild dilation of the proximal colon. No free air or air-fluid levels. No radiopaque urinary calculi. Degenerative changes are seen in the visualized spine. The visualized lung bases are unremarkable. IMPRESSION: Rectal tube placement. Improved sigmoid colon distention. Mildly dilated proximal colon, possibly ileus, with a moderate to large amount of colonic stool. Report Dictated on Electronically Signed By: Sebastian Díaz MD Electronically Signed Date/Time: 03/16/2025 12:53 PM EDT [facility] Abdomen/Pelvis W IV Cont ONL Yon 03-15-2025 Abdomen/Pelvis W IV Cont ONLY [facility] Imaging Services [address] [place] [address] Abdomen/Pelvis W IV Cont ONLY MR#: [id number] Acct: [id number] Name: FRANCISCO RAMOS Rep #: [id number] : 1950 M 74 From: Az Tejeda MD PCP: Dr. Ethan Avendano MD Status: [facility] ER Study: Abdomen/Pelvis W IV Cont ONLY Date of Exam: Exam# [id number] Ordering Dr: Brijesh Frederick DO PROCEDURE: ABDOMEN/PELVIS W IV CONT ONLY 03/15/2025 REASON FOR EXAM: ABDOMINAL PAIN TECHNIQUE: ABDOMEN/PELVIS W IV CONT ONLY Coronal and Sagittal reconstruction series were provided. One or more dose reduction techniques were used (e.g., Automated exposure control, adjustment of the mA and/or kV according to patient size, use of iterative reconstruction technique. RADIATION DOSE SUMMARY: CTDlvol: 10.0 mGy DLP: 411 mGycm COMPARISON: None FINDINGS: Lung bases: Aortic valvular and coronary artery calcifications. Liver: Unremarkable Gallbladder: No radiodense stones. Spleen: Mildly enlarged measuring 14.4 cm in AP dimension. Pancreas: Normal size without evidence of mass surrounding inflammation or ductal dilation. Adrenals: Unremarkable Kidneys: No radiodense stones or hydronephrosis Bladder: Unremarkable Reproductive Organs: Prostatomegaly with coarse calcifications. Bowel: There is dilation of the sigmoid colon which measures up to 5.8 cm in diameter, and demonstrates whirlpool appearance in the central abdomen (coronal image 46). There is decompression of the distal sigmoid colon. There is a large amount of fecal material proximal to this, to include in the distal small bowel. There are fluid contents and wall thickening involving the far distal sigmoid colon and rectum. No definite hypoenhancement of the bowel wall. Appendix: Not definitely identified. Lymph nodes: No significant lymphadenopathy. Vasculature: Mild diffuse atherosclerotic calcifications are noted. Peritoneum / Retroperitoneum: Trace free fluid in the paracolic gutters. Bones: Vertebroplasty changes and compression deformity at L1. Sclerotic endplate changes at L5-S1. Degenerative changes of the spine. Soft tissues: Trace fluid in the right inguinal canal. CT/Abdomen/Pelvis W IV Cont ONLY IMPRESSION: 1. Findings worrisome for sigmoid volvulus. Recommend Surgical and/or GI consultation. 2. Circumferential wall thickening involving the far distal sigmoid colon and rectum. Consider colonoscopy to exclude underlying mass if not recently performed. 3. Mild splenomegaly. [place] Alert: Sigmoid volvulus The critical information above was relayed directly by me by telephone to Brijesh Frederick on 03/15/2025 at 11:58 pm with readback verification. Reading Location: [id number] CC: Dr. Brijesh Frederick DO; Dr. Ethan Avendano MD [employer]: Signed Normal [facility] Absolute lymphocyte countOrd ered By: Brijesh Frederick on 03-15-2025 Lymphocytes Auto (Unsp spec) [#/Vol] 0.69 10*3/uL Low 0.83-4.51 [facility] Absolute neutrophil countOrd ered By: Brijesh Frederick on 03-15-2025 Neutrophils (Bld) [#/Vol] 4.8 10*3/uL 2.0-7.7 [facility] Anion gap in Serum or Plasma Ordered By: Brijeshmathieu Frederick on 03-15-2025 Anion gap [Moles/Vol] 14 mmol/L 5-15 [facility] Automated lymphocyte count a s percentage of total leukocytesOrdered By: Brijesh Frederick on 03-15-2025 Lymphocytes/100 WBC Auto (Unsp spec) 11.6 % Low 19-41 [facility] BUN/creatinine ratioOrdered By: Brijesh Frederick on 03-15-2025 Urea nitrogen/Creatinine [Mass ratio] 23.2 mg/mg High 10-20 [facility] Basophil percentageOrdered B y: Brijseh Frederick on 03-15-2025 Basophils/100 WBC (Bld) 0.2 % 0-1 [facility] Bilirubin, totalOrdered By: Brijeshmathieu Frederick on 03-15-2025 Bilirubin [Mass/Vol] 0.51 mg/dL 0.00-1.30 [facility] CBC W/Diff, Automatedon 03-04 Absolute Lymph 0.69 X10 3/uL Low 0.83-4.51 [facility] Comment on above: Performed By: #### L 100.0100, L500.4050, L501.2450 ####[facility] [address] [place], [address] Absolute Neut 4.8 X10 3/uL Normal 2.0-7.7 [facility] Comment on above: Performed By: #### L 100.0100, L500.4050, L501.2450 ####[facility] [address] [place], [address] Basophils/100 WBC (Bld) 0.2 % Normal 0-1 [facility] Comment on above: Performed By: #### L 100.0100, L500.4050, L501.2450 ####[facility] [address] [place], [address] Eosinophils/100 WBC (Bld) 0.0 % Normal 0-5 [facility] Comment on above: Performed By: #### L 100.0100, L500.4050, L501.2450 ####[facility] [address] [place], [address] Erythrocyte distribution width (RBC) [Ratio] 12.8 % Normal 11.6-14.6 [facility] Comment on above: Performed By: #### L 100.0100, L500.4050, L501.2450 ####[facility] [address] [place], [address] Hematocrit (Bld) [Volume fraction] 42.3 % Normal 40-54 [facility] Comment on above: Performed By: #### L 100.0100, L500.4050, L501.2450 ####[facility] [address] [place], [address] Hemoglobin (Bld) [Mass/Vol] 14.6 g/dL Normal 13.0-16.5 [facility] Comment on above: Performed By: #### L 100.0100, L500.4050, L501.2450 ####[facility] [address] [place], [address] IG% 0.500 Normal 0.0-0.9 [facility] Comment on above: Result Comment: IG% - Immature Granulocytes (promyelocytes, myelocytes and metamyelocytes) > 1% indicates that a LEFT SHIFT is Present. Performed By: #### L 100.0100, L500.4050, L501.2450 ####[facility] [address] [place], [address] Lymphocytes/100 WBC (Bld) 11.6 % Low 19-41 [facility] Comment on above: Performed By: #### L 100.0100, L500.4050, L501.2450 ####[facility] [address] [place], [address] MCH (RBC) [Entitic mass] 30.8 pg Normal 27.0-32.0 [facility] Comment on above: Performed By: #### L 100.0100, L500.4050, L501.2450 ####[facility] [address] [place], [address] MCHC (RBC) [Mass/Vol] 34.5 g/dL Normal 32-36 [facility] Comment on above: Performed By: #### L 100.0100, L500.4050, L501.2450 ####[facility] [address] [place], [address] MCV (RBC) [Entitic vol] 89.2 fL Normal 80-94 [facility] Comment on above: Performed By: #### L 100.0100, L500.4050, L501.2450 ####[facility] [address] [place], [address] Monocytes/100 WBC (Bld) 7.4 % Normal 0-10 [facility] Comment on above: Performed By: #### L 100.0100, L500.4050, L501.2450 ####[facility] [address] [place], [address] Neutrophils/100 WBC (Bld) 80.3 % High 47-70 [facility] Comment on above: Performed By: #### L 100.0100, L500.4050, L501.2450 ####[facility] [address] [place], [address] Nucleated RBC (Bld) [#/Vol] 0 10*3/uL Normal 0-5 [facility] Comment on above: Performed By: #### L 100.0100, L500.4050, L501.2450 ####[facility] [address] [place], [address] Platelet mean volume (Bld) [Entitic vol] 11.1 fL Normal 6.2-12.0 [facility] Comment on above: Performed By: #### L 100.0100, L500.4050, L501.2450 ####[facility] [address] [place], [address] Platelets (Bld) [#/Vol] 148 10*3/uL Low 150-450 [facility] Comment on above: Performed By: #### L 100.0100, L500.4050, L501.2450 ####[facility] [address] [place], [address] RBC (Bld) [#/Vol] 4.74 10*6/uL Normal 4.6-6.[address] [facility] Comment on above: Performed By: #### L 100.0100, L500.4050, L501.2450 ####[facility] [address] [place], [address] RDW SD 41.8 fl Normal 35.1-43.9 [facility] Comment on above: Performed By: #### L 100.0100, L500.4050, L501.2450 ####[facility] [address] [place], [address] WBC (Bld) [#/Vol] 5.9 10*3/uL Normal 4.4-11.0 [facility] Comment on above: Performed By: #### L 100.0100, L500.4050, L501.2450 ####[facility] [address] [place], [address] Carbon dioxide, total [Moles /volume] in Central venous bloodOrdered By: Brijesh Frederick on 03-15-2025 CO2 [Moles/Vol] 24.2 mmol/L 21.0-32.0 [facility] Chloride assayOrdered By: Jake Frederick on 03-15-2025 Chloride [Moles/Vol] 101 mmol/L 98-108 [facility] Comprehensive Metabolic Prof ilon 03-15-2025 Albumin [Mass/Vol] 4.4 g/dL Normal 3.4-4.8 [facility] Comment on above: Performed By: #### L 100.0100, L500.4050, L501.2450 ####[facility] [address] [place], [address] Albumin/Globulin [Mass ratio] 1.6 {ratio} Normal 0.9-2.4 [facility] Comment on above: Performed By: #### L 100.0100, L500.4050, L501.2450 ####[facility] [address] [place], [address] ALK PHOS 84 U/L Normal 40-129 [facility] Comment on above: Performed By: #### L 100.0100, L500.4050, L501.2450 ####[facility] [address] [place], [address] ALT [Catalytic activity/Vol] 17 U/L Normal <=46 [facility] Comment on above: Performed By: #### L 100.0100, L500.4050, L501.2450 ####[facility] [address] [place], [address] AST [Catalytic activity/Vol] 26 U/L Normal <=37 [facility] Comment on above: Performed By: #### L 100.0100, L500.4050, L501.2450 ####[facility] [address] [place], [address] Bilirubin [Mass/Vol] 0.51 mg/dL Normal 0.00-1.30 [facility] Comment on above: Performed By: #### L 100.0100, L500.4050, L501.2450 ####[facility] [address] [place], [address] BUN/CRE 23.2 RATIO High 10-20 [facility] Comment on above: Performed By: #### L 100.0100, L500.4050, L501.2450 ####[facility] [address] [place], [address] Calcium [Mass/Vol] 9.8 mg/dL Normal 7.6-11.0 [facility] Comment on above: Performed By: #### L 100.0100, L500.4050, L501.2450 ####[facility] [address] [place], [address] Chloride [Moles/Vol] 101 mmol/L Normal 98-108 [facility] Comment on above: Performed By: #### L 100.0100, L500.4050, L501.2450 ####[facility] [address] [place], [address] CO2 [Moles/Vol] 24.2 mmol/L Normal 21.0-32.0 [facility] Comment on above: Performed By: #### L 100.0100, L500.4050, L501.2450 ####[facility] [address] [place], [address] Creatinine [Mass/Vol] 0.93 mg/dL Normal 0.70-1.20 [facility] Comment on above: Performed By: #### L 100.0100, L500.4050, L501.2450 ####[facility] [address] [place], [address] ECRCL 66.84 ml/min Normal 50-250 [facility] Comment on above: Performed By: #### L 100.0100, L500.4050, L501.2450 ####[facility] [address] [place], [address] GAP 14 Normal 5-15 [facility] Comment on above: Performed By: #### L 100.0100, L500.4050, L501.2450 ####[facility] [address] [place], [address] GFR/1.73 sq M.predicted among non-blacks MDRD (S/P/Bld) [Vol rate/Area] 88 mL/min/{1.73_m2} Normal >60 [facility] Comment on above: Result Comment: mL/m in/1.73m2 CKD-EPI Creatinine Equation (2020) Performed By: #### L 100.0100, L500.4050, L501.2450 ####[facility] [address] [place], [address] Globulin (S) [Mass/Vol] 2.8 g/dL Normal 2.2-4.2 [facility] Comment on above: Performed By: #### L 100.0100, L500.4050, L501.2450 ####[facility] [address] [place], [address] Glucose [Mass/Vol] 170 mg/dL High 70-99 [facility] Comment on above: Performed By: #### L 100.0100, L500.4050, L501.2450 ####[facility] [address] [place], [address] Potassium [Moles/Vol] 3.7 mmol/L Normal 3.3-5.1 [facility] Comment on above: Performed By: #### L 100.0100, L500.4050, L501.2450 ####[facility] [address] [place], [address] Sodium [Moles/Vol] 139 mmol/L Normal 133-145 [facility] Comment on above: Performed By: #### L 100.0100, L500.4050, L501.2450 ####[facility] [address] [place], [address] T PROT 7.2 g/dL Normal 5.9-8.4 [facility] Comment on above: Performed By: #### L 100.0100, L500.4050, L501.2450 ####[facility] [address] [place], [address] Urea nitrogen [Mass/Vol] 22 mg/dL High 4-19 [facility] Comment on above: Performed By: #### L 100.0100, L500.4050, L501.2450 ####[facility] [address] [place], [address] Emergency Department Summary on 03-15-2025 Emergency Department Summary [facility] Medical Records Department [address] [place] [address] Emergency Department Summary 03/15/25 MR#: [id number] Acct: [id number] Name: FRANCISCO ARMOS Rep #: [id number] : 1950 74 From: Brijesh Frederick DO PCP: Dr. Ethan Avendano MD Status:DEP ER Location: ED HPI History of Present Illness Chief Complaint: Constipation Narrative Narrative: Chief complaint and HPI: Abdominal pain. 74-year-old male with past medical history of Parkinson's disease, CAD, HLD, memory issues presents for evaluation of abdominal pain. Patient is a very poor historian and therefore history mostly taken by . states that the patient has suffered from constipation for several years. He states his last bowel movement was this morning and hard. States he took some MiraLAX. Endorses episodic abdominal cramping. states prior to arrival he was moaning on the bed which is why she brought him to the emergency department. Abdominal pain is currently minimal. No history of abdominal surgeries. States he has been eating and drinking well. Denies any fever, chills, chest pain, shortness of breath, diarrhea, dysuria. Review of systems: See HPI Medications: As listed on the chart Allergies: As listed on the chart PFSH: Per chart Vital signs: As listed on the chart. Reviewed. Physical exam: Gen: A O x3, NAD Head: Normocephalic, atraumatic Eyes: No sclera icterus, conjunctiva clear ENT: Moist mucous membranes Neck: Trachea midline, No JVD CV: RRR, no murmurs, no peripheral edema Resp: Lungs CTA BL, no w/r/c GI: Abd soft, mildly distended, non-tender, no r/r/g : No CVA tenderness Musc: Full ROM, no deformity Skin: Warm, dry Neuro: Alert, oriented, grossly intact, sensation intact Psych: Cooperative, appropriate mood and affect [facility] Medical History Tortuous colon Wears glasses Arthritis High cholesterol Easy bruising Back pain Non-smoker History of pain when walking History of echocardiogram History of stress test Cardiology follow-up encounter Parkinson disease Atherosclerosis of coronary artery of [place] heart without angina pectoris Hyperlipidemia Common variable immunodeficiency Benign prostate hyperplasia Basal cell carcinoma of left ear Home Medications ???Medication ???Instructions ???Recorded ???Last Taken ???Type multivitamin with folic acid 400 1 tab PO DAILY 06/10/1324 H istory mcg tablet folic acid 400 mcg tablet 1 tab PO DAILY 12/24/13 08/19/24 H istory immune glob,gamma(IgG) 10 20 g .Route .u7fmswf 03/04/19/01/25 History idrr-bdl-fzpr-IgA 0 to 50 mcg/mL IV solution nitroglycerin 0.4 mg sublingual 0.4 mg sublingual Q5-15M PRN chest 04/03/19 Unknown Rx tablet pain #25 tabs ibuprofen 600 mg tablet 600 mg PO Q6H PRN pain #20 tabs 04 /28/21 12/19/24 Rx aspirin 81 mg tablet,delayed 81 mg PO DAILY 01/05/21 08/19/24 H istory release (Adult Low Dose Aspirin) memantine 5 mg tablet 10 mg PO BID 02/01/23 08/22/24 His tory rosuvastatin 40 mg tablet 40 mg PO QHS 10/10/23 08/22/24 His tory bupropion HCl 100 mg tablet,12 hr 100 mg PO QAM 11/28/24 Unknown Hi story sustained-release carbidopa 25 mg-levodopa 100 mg 1 tab PO .qid 11/28/24 Unknown His tory tablet escitalopram oxalate 5 mg tablet 10 mg PO DAILY 11/28/24 Unknown Hi story (Lexapro) Allergy/AdvReac Type Severity Reaction Status Date / Time No Known Allergies Allergy Verified 03/15/25 21:20 Family History Mother Heart disease valve replacement Father Parkinson disease Surgical History History of cardiac catheterization Hx of colonoscopy Hx of transurethral resection of prostate History of coronary artery stent placement (03/21/19) History of herniorrhaphy History of bilateral cataract extraction Social History Smoking Status: Never smoker alcohol intake: current alcohol intake frequency: holidays/special occasions only substance use type: does not use caffeine: No EXAM Physical Exam Const Vital Signs: 03/15/25 21:18 03/15/25 23:16 03/16/25 01:21 Temperature 97.6 F L Temperature Source Oral Pulse Rate 92 81 95 Respiratory Rate 20 H 16 17 Blood Pressure 145/76 H 136/77 H 128/75 H Blood Pressure Mean 99 96 92 Pulse Ox 100 99 97 Oxygen Delivery Method Room Air Room Air 03/16/25 03:30 03/16/25 04:39 Temperature 98.3 F Temperature Source Pulse Rate 88 88 Respiratory Rate 18 18 Blood Pressure 116/75 116/75 Blood Pressure Mean 88 88 Pulse Ox 97 97 Oxygen Delivery Method Room Air (more content not included)... Normal [facility] Eosinophil percentageOrdered By: Brijesh Frederick on 03-15-2025 Eosinophils/100 WBC (Bld) 0.0 % 0-5 [facility] Erythrocyte distribution wid th ratioOrdered By: Brijesh Frederick on 03-15-2025 Erythrocyte distribution width (RBC) [Ratio] 12.8 % 11.6-14.6 [facility] Erythrocyte distribution wid th standard deviationOrdered By: Brijesh Manjarrez on 03-15-2025 Erythrocyte distribution width (RBC) [Ratio] 41.8 fl 35.1-43.9 [facility] Glomerular filtration rate ( GFR) estimation/1.73 sq m using serum, plasma, or whole bOrdered By: Brijesh Frederick on 03-15-2025 GFR/1.73 sq M.predicted among non-blacks MDRD (S/P/Bld) [Vol rate/Area] 88 mL/min/{1.73_m2} >60 [facility] Comment on above: mL/min/1.73m2 CKD-EP I Creatinine Equation (2020) Hematocrit Auto (Bld) [Volum e fraction]Ordered By: Brijesh Frederick on 03-15-2025 Hematocrit (Bld) [Volume fraction] 42.3 % 40-54 [facility] Hemoglobin measurementOrdere d By: Brijesh Frederick on 03-15-2025 Hemoglobin (Bld) [Mass/Vol] 14.6 g/dL 13.0-16.5 [facility] Immature granulocytes/100 WB C Auto (Bld)Ordered By: Brijesh Frederick on 03-15-2025 Immature granulocytes/100 WBC (Bld) 0.500 % 0.0-0.9 [facility] Comment on above: IG% - Immature Granu locytes (promyelocytes, myelocytes and metamyelocytes) > 1% indicates that a LEFT SHIFT is Present. Laboratory - Chemistry and C hemistry - challengeOrdered By: Brijesh Frederick on 03-15-2025 AST [Catalytic activity/Vol] 26 U/L <38 [facility] Lipaseon 03-15-2025 Lipase [Catalytic activity/Vol] 20 U/L Normal 13-75 [facility] Comment on above: Result Comment: Tejas lassiter note: LIPASE revised reference range effective 22. New Lipase methodology. Expected to produce lower values than the previous assay method. NEW Reference Range: 13 - 75 U/L Performed By: #### L 100.0100, L500.4050, L501.2450 ####[facility] [address] [place], [address] Lipase measurementOrdered By : Brijesh Frederick on 03-15-2025 Lipase [Catalytic activity/Vol] 20 U/L 13-75 [facility] Comment on above: Please note:LIPASE r evised reference range effective 22. New Lipase methodology. Expected to produce lower values than the previous assay method. NEW Reference Range: 13 - 75 U/L MCV (mean corpuscular volume ) determinationOrdered By: Brijesh Frederick on 03-15-2025 MCV (RBC) [Entitic vol] 89.2 fL 80-94 [facility] Mean corpuscular hemoglobin (MCH) determinationOrdered By: Brijesh Frederick on 03-15-2025 MCH (RBC) [Entitic mass] 30.8 pg 27.0-32.0 [facility] Mean corpuscular hemoglobin concentration (MCHC) determinationOrdered By: Brijesh Frederick on 03-15-2025 MCHC (RBC) [Mass/Vol] 34.5 g/dL 32-36 [facility] Mean platelet volume determi nationOrdered By: Brijesh Frederick on 03-15-2025 Platelet mean volume (Bld) [Entitic vol] 11.1 fL 6.2-12.0 [facility] Monocyte percentageOrdered B y: Brijesh Frederick on 03-15-2025 Monocytes/100 WBC (Bld) 7.4 % 0-10 [facility] Neutrophil percentageOrdered By: Brijesh Frederick on 03-15-2025 Neutrophils/100 WBC (Bld) 80.3 % High 47-70 [facility] Nucleated red blood cell per centageOrdered By: Brijesh Frederick on 03-15-2025 Nucleated RBC/100 WBC (Bld) [Ratio] 0 % 0-5 [facility] Platelet countOrdered By: Jake Frederick on 03-15-2025 Platelets (Bld) [#/Vol] 148 10*3/uL Low 150-450 [facility] Potassium measurement (mass/ volume)Ordered By: Brijesh Frederick on 03-15-2025 Potassium (Unsp spec) [Mass/Vol] 3.7 mmol/L 3.3-5.1 [facility] RBC Auto (Bld) [#/Vol]Ordere d By: Brijesh Frederick on 03-15-2025 RBC (Bld) [#/Vol] 4.74 10*6/uL 4.6-6.[address] [facility] Serum creatinine measurement (mass/volume)Ordered By: Brijesh Frederick on 03-15-2025 Creatinine [Mass/Vol] 0.93 mg/dL 0.70-1.20 [facility] Serum globulin measurementOr dered By: Brijesh Frederick on 03-15-2025 Globulin (S) [Mass/Vol] 2.8 g/dL 2.2-4.2 [facility] Serum glucose measurement (m ass/volume)Ordered By: Brijesh Frederick on 03-15-2025 Glucose [Mass/Vol] 170 mg/dL High 70-99 [facility] Serum or plasma alanine garcia otransferase (ALT) measurementOrdered By: Brijesh Frederick on 03-15-2025 ALT [Catalytic activity/Vol] 17 U/L <47 [facility] Serum or plasma albumin john urement (mass/volume)Ordered By: Brijesh Manjarrez on 03-15-2025 Albumin [Mass/Vol] 4.4 g/dL 3.4-4.8 [facility] Serum or plasma albumin/glob ulin mass ratioOrdered By: Brijesh Frederick on 03-15-2025 Albumin/Globulin [Mass ratio] 1.6 {ratio} 0.9-2.4 [facility] Serum or plasma alkaline dylon sphatase measurementOrdered By: Brijesh deepaLoki on 03-15-2025 ALP [Catalytic activity/Vol] 84 U/L 40-129 [facility] Serum or plasma calcium john urement (mass/volume)Ordered By: Brijeshmathieu Alvarado Loki on 03-15-2025 Calcium [Mass/Vol] 9.8 mg/dL 7.6-11.0 [facility] Serum or plasma urea nitroge n measurement (mass/volume)Ordered By: [facility]rijesh [facility] on 03-15-2025 Urea nitrogen [Mass/Vol] 22 mg/dL High 4-19 [facility] Sodium levelOrdered By: Gordon AlvaradoSt. Anne Hospitalt on 03-15-2025 Sodium [Moles/Vol] 139 mmol/L 133-145 [facility] Total proteinOrdered By: Maynor VelezLoki on 03-15-2025 Protein [Mass/Vol] 7.2 g/dL 5.9-8.4 [facility] White blood cell (WBC) count Ordered By: [facility] on 03-15-2025 WBC (Bld) [#/Vol] 5.9 10*3/uL 4.4-11.0 [facility] PT D/C Summary (1)on 025 PT D/C Summary (1) [facility] Physical Therapy [address] [place] [address] / REHABILITATION SERVICES DISCHARGE SUMMARY MR#: [id number] Acct: [id number] Name: FRANCISCO RAMOS Rep #: [id number] : 1950 74 From: Mojgan [place] Referring DrNoreen: KIM Mendenhall Status: REG RCR Insurance: MEDICARE PART A B [facility] Discharge Summary D/C summary: It has been my pleasure to treat FRANCISCO RAMOS referred by KIM Mendenhall, with the diagnosis of PD (balance/Falls) for a total of 10 visit(s). Discharge Date: 05/05/25 Please see the following information for a summary of their discharge status. Subjective Subjective: He is going on 7 classes a week. He feels that answering % better is harder to say because PD is variable. He feels that he has learned some tips. He fell 3-4 days ago he was getting the can patcher ready to mow. He was on the [...] please feel free to call me at [phone]. Thank you for the referral of this patient. Sincerely, Mojgan Gonzalez, MPT Balance/Gait/Functio nal tests Balance/Special Test Scores Functional Gait Assessment Score: 25 % Disability: 16.6700 CATSIB Score (Max score 120 seconds): 120 Lower Extremity Functional Score: 44 Improvement % Improvement: 15 01/06/25 1506 CC: Dr. Ethan Avendano MD; KIM Mendenhall Signed Normal [facility] T4 Free Directon 12-25-2024 T4 FREE DIRECT 0.90 ng/dL Normal 0.76-1.46 [facility] Comment on above: Performed By: #### L 506.0400 #### [facility] Laboratory [address] [place], [address] T4 freeOrdered By: Ethan cheng on 12-25-2024 Free T4 [Mass/Vol] 0.90 ng/dL 0.76-1.46 [facility] Carotid Duplex Ultrasoundon 12-17-2024 Carotid Duplex Ultrasound [facility] Cardiovascular Services [address] [place] [address] Carotid Duplex Ultrasound 12/17/24 1358 MR#: [id number] Acct: [id number] Name: FRANCISCO RAMOS Rep #: [id number] : 1950 74 From: Marcio Newell MD Attending Dr: Dr. Demian Ramsay MD Status: AMADEO MCCAULEY Ordering Dr: Demian Ramsay MD Date: 12/17/24 Location: [facility] Sex: M C Admitted: Reason [...] the left vertebral artery. Procedure Carotid Duplex 75751. This is a Carotid Duplex examination using [...] MD; Dr. Ethan Avendano MD Date Dictated: 12/17/24 1358 Date Transcribed: 12/17/241838 Vegetable Farmer: Signed Normal [facility] Duplex ultrasound of carotid artery reportOrdered By: Marcio Newell on 12-17-2024 Study report [facility] Cardi[facility] [address] [place] [address] Carotid Duplex Ultrasound 12/17/24 1358 MR#: [id number] Acct: [id number] Name: GROSS,FRANCISCO ALBARRAN Rep #:[id number] : 1950 74 From: Marcio Newell MD Attending Dr: Dr. Demian Ramsay MD S tatus: REG CLI Ordering Dr: Demian Ramsay MD Date: Location: [facility] Sex: M C Admitted: Reason For Study Reason For Study: BRUIT Rt. Velocities/BP Lt. Velocities/BP Prox CCA 107.2/13.9 cm/sec. Prox CCA 142.3/23.6 cm/sec. Mid CCA 74.4/13.0 cm/sec. Mid BDX713.8/19.9 cm/sec. Dist CCA 65.8/10.6 cm/sec. Dist CCA 91.1/19.9 cm/sec. Prox ICA 177.7/31.6 cm/sec. Prox ICA 129.5/10.8 cm/sec. Mid ICA 134.4/19.4 cm/sec. Mid ZKG276.8/19.9 cm/sec. Dist ICA 125.3/28.5 cm/sec. Dist ICA [...] the left vertebral artery. Procedure Carotid Duplex 64215. This is a Carotid Duplex examination using B-mode, color flow and specral Doppler. Exam performed in department. VL/Carotid Duplex Ultrasound Interpretation Summary Moderate (50-69%) stenosis right extracranial internal carotid. Mild (<50%) stenosis left extracranial internal carotid. Flow within the vertebral arteries is antegrade bilaterally. Ordering Physician: Demian Ramsay Referring Physician: Ethan Avendano Performed By: Lisa Kohler, EMANUEL, RVT 12/17/241838 Date _ Marcio Newell MD CC: Dr. Demian Ramsay MD; Dr. Ethan Avendano MD ~ Date Dictated: 12/17/24 1358 Date Transcribed: 12/17/241838 Vegetable Farmer: Signed [facility] Other Inital Evaluation (1) - PTon 12-04-2024 Inital Evaluation (1) - PT [facility] Physical Therapy [facility] [address] [place] [address] [address] [place] [address] / REHABILITATION SERVICES INITIAL EVALUATION MR#: [id number] Acct: [id number] Name: FRANCISCO RAMOS Rep #: [id number] : 1950 74 From: Mojgan [place] Referring Dr.: Sandra Joaquni Status: REG RCR Insurance: MEDICARE PART A B [facility] Patient's Visit Information Visit Information Visit Information: FRANCISCO RAMOS is a 74 year old M referred [...] years ago with PD. He take Silver Shidonni classes here (2 yoga classes, Mellisa) for [...] of care (more content not included)... Normal [facility] Cardiology Visit Reporton Cardiology Visit Report [facility] [address] [place] [address] OFFICE VISIT Date of Service: 11/28/24 MR#: [id number] Acct: [id number] Name: FRANCISCO RAMOS #: [id number] : 1950 Provider: Dr. Demian Ramsay MD Age/Sex: 74/M [place] [facility] Status: Signed HPI HPI History of Present Illness Details: Francisco Ramos is a 74-year-old gentleman that presents here [...] for his age. He does go to [facility] routinely. He does not have any worsening [...] Monitor Intake Visit Reasons: 1 Y FU Shirt Bander Required: No Accompanied by: Significant Other Is patient in pain?: No Allergies No Known Allergies Allergy (Verified 11/28/24 10:54) Medications ???Medication ???Instructions ???Recorded ???Confirmed ???Type multivitamin with folic acid 400 1 tab PO DAILY 06/10/13 11/28/24 H istory mcg tablet folic acid 400 mcg tablet 1 tab PO DAILY 12/24/13 11/28/24 H istory immune glob,gamma(IgG) 10 20 g .Route .a5tlbbw 03/04/1911/03 History vnaf-oet-owaa-IgA 0 to 50 mcg/mL IV solution nitroglycerin [...] you fallen in the past year?: Yes PFSH Medical History Tortuous colon Wears glasses Arthritis High cholesterol Easy bruising Back pain Non-smoker History of pain when walking History of echocardiogram History of stress test Cardiology follow-up encounter Parkinson disease Atherosclerosis of coronary artery of [place] heart without angina pectoris Hyperlipidemia Common variable [...] lying d (more content not included)... Normal [facility] T4 Free Directon 10-31-2024 T4 FREE DIRECT 0.90 ng/dL Normal 0.76-1.46 [facility] Comment on above: Order Comment: Order Date: 10/29/24 Order Info: [id number] - CMP Order Info: [id number] - TSH Order Info: [id number] - FOLS Performed By: #### L 506.0400, L503.0106 #### [facility] Laboratory [address] [place], [place], [address] Comprehensive Metabolic Prof ilon 10-30-2024 Albumin [Mass/Vol] 4.3 g/dL Normal 3.4-4.8 [facility] Comment on above: Order Comment: Order Date: 10/29/24Order Info: [id number] - CMPOrder Info: [id number] - TSHOrder Info: 228-8 - FOLS Performed By: #### L 506.0250, L501.9520, L501.9985, L100.0100, L500.4050 ####[facility] [address] [place], [place], [address] Albumin/Globulin [Mass ratio] 1.8 {ratio} Normal 0.9-2.4 [facility] Comment on above: Order Comment: Order Date: 10/29/24Order Info: [id number] - CMPOrder Info: [id number] - TSHOrder Info: [id number] - FOLS Performed By: #### L 506.0250, L501.9520, L501.9985, L100.0100, L500.4050 ####[facility] [address] [place], [address] ALK PHOS 63 U/L Normal 40-129 [facility] [facility] Comment on above: Order Comment: Order Date: 10/29/24Order Info: 07-1 - CMPOrder Info: [id number] - TSHOrder Info: [id number] - FOLS Performed By: #### L 506.0250, L501.9520, L501.9985, L100.0100, L500.4050 ####[facility] [address] [place], [address] ALT [Catalytic activity/Vol] 31 U/L Normal <=46 [facility] Comment on above: Order Comment: Order Date: 10/29/24Order Info: [id number] - CMPOrder Info: [id number] - TSHOrder Info: [id number] - FOLS Performed By: #### L 506.0250, L501.9520, L501.9985, L100.0100, L500.4050 ####[facility] [address] [place], [address] Anion gap [Moles/Vol] 11 mmol/L Normal 5-15 [facility] Comment on above: Order Comment: Order Date: 10/29/24Order Info: [id number] - CMPOrder Info: [id number] - TSHOrder Info: [id number] - FOLS Performed By: #### L 506.0250, L501.9520, L501.9985, L100.0100, L500.4050 ####[facility] [address] [place], [address] AST [Catalytic activity/Vol] 35 U/L Normal <=37 [facility] Comment on above: Order Comment: Order Date: 10/29/24Order Info: 07-1 - CMPOrder Info: [id number] - TSHOrder Info: [id number] - FOLS Performed By: #### L 506.0250, L501.9520, L501.9985, L100.0100, L500.4050 ####[facility] [address] [place], [address] Bilirubin [Mass/Vol] 0.52 mg/dL Normal 0.00-1.30 [facility] Comment on above: Order Comment: Order Date: 10/29/24Order Info: [id number] - CMPOrder Info: 3 - TSHOrder Info: [id number] - FOLS Performed By: #### L 506.0250, L501.9520, L501.9985, L100.0100, L500.4050 ####[facility] [address] [place], [address] BUN/CRE 16.3 RATIO Normal 10-20 [facility] Comment on above: Order Comment: Order Date: 10/29/24Order Info: [id number] - CMPOrder Info: 3 - TSHOrder Info: 8 - FOLS Performed By: #### L 506.0250, L501.9520, L501.9985, L100.0100, L500.4050 ####[facility] [address] [place], [address] Calcium [Mass/Vol] 9.6 mg/dL Normal 7.6-11.0 [facility] Comment on above: Order Comment: Order Date: 10/29/24Order Info: [id number] - CMPOrder Info: 3 - TSHOrder Info: 228-8 - FOLS Performed By: #### L 506.0250, L501.9520, L501.9985, L100.0100, L500.4050 ####[facility] [address] [place], [address] Chloride [Moles/Vol] 102 mmol/L Normal 96-108 [facility] Comment on above: Order Comment: Order Date: 10/29/24Order Info: [id number] - CMPOrder Info: 3 - TSHOrder Info: [id number] - FOLS Performed By: #### L 506.0250, L501.9520, L501.9985, L100.0100, L500.4050 ####[facility] [address] [place], [address] CO2 [Moles/Vol] 25.1 mmol/L Normal 22.0-29.0 [facility] Comment on above: Order Comment: Order Date: 10/29/24Order Info: 86-1 - CMPOrder Info: [id number] - TSHOrder Info: [id number] - FOLS Performed By: #### L 506.0250, L501.9520, L501.9985, L100.0100, L500.4050 ####[facility] [address] [place], [address] Creatinine [Mass/Vol] 1.0 mg/dL Normal 0.8-1.3 [facility] Comment on above: Order Comment: Order Date: 10/29/24Order Info: 785- - CMPOrder Info: [id number] - TSHOrder Info: [id number] - FOLS Performed By: #### L 506.0250, L501.9520, L501.9985, L100.0100, L500.4050 ####[facility] [address] [place], [address] GFR/1.73 sq M.predicted among non-blacks MDRD (S/P/Bld) [Vol rate/Area] 86 mL/min/{1.73_m2} Normal >60 [facility] Comment on above: Order Comment: Order Date: 10/29/24Order Info: [id number] - CMPOrder Info: [id number] - TSHOrder Info: [id number] - FOLS Result Comment: mL/m in/1.73m2 CKD-EPI Creatinine Equation (2020) Performed By: #### L 506.0250, L501.9520, L501.9985, L100.0100, L500.4050 ####[facility] [address] [place], [address] Globulin (S) [Mass/Vol] 2.4 g/dL Normal 2.2-4.2 [facility] Comment on above: Order Comment: Order Date: 10/29/24Order Info: [id number] - CMPOrder Info: [id number] - TSHOrder Info: 8 - FOLS Performed By: #### L 506.0250, L501.9520, L501.9985, L100.0100, L500.4050 ####[facility] [address] [place], [address] Glucose [Mass/Vol] 80 mg/dL Normal 70-99 [facility] Comment on above: Order Comment: Order Date: 10/29/24Order Info: [id number] - CMPOrder Info: [id number] - TSHOrder Info: 8 - FOLS Performed By: #### L 506.0250, L501.9520, L501.9985, L100.0100, L500.4050 ####[facility] [address] [place], [address] Potassium [Moles/Vol] 4.5 mmol/L Normal 3.3-5.1 [facility] Comment on above: Order Comment: Order Date: 10/29/24Order Info: 07-1 - CMPOrder Info: [id number] - TSHOrder Info: 8 - FOLS Performed By: #### L 506.0250, L501.9520, L501.9985, L100.0100, L500.4050 ####[facility] [address] [place], [address] Sodium [Moles/Vol] 138 mmol/L Normal 133-145 [facility] Comment on above: Order Comment: Order Date: 10/29/24Order Info: 07-1 - CMPOrder Info: [id number] - TSHOrder Info: 8 - FOLS Performed By: #### L 506.0250, L501.9520, L501.9985, L100.0100, L500.4050 ####[facility] [address] [place], [address] T PROT 6.7 g/dL Normal 5.9-8.4 [facility] Comment on above: Order Comment: Order Date: 10/29/24Order Info: [id number] - CMPOrder Info: 6-3 - TSHOrder Info: [id number] - FOLS Performed By: #### L 506.0250, L501.9520, L501.9985, L100.0100, L500.4050 ####[facility] [address] [place], [address] Urea nitrogen [Mass/Vol] 15 mg/dL Normal 4-19 [facility] Comment on above: Order Comment: Order Date: 10/29/24Order Info: [id number] - CMPOrder Info: 3 - TSHOrder Info: [id number] - FOLS Performed By: #### L 506.0250, L501.9520, L501.9985, L100.0100, L500.4050 ####[facility] [address] [place], [address] Folates, (Folic Acid)on 10-06 FOLATES 32.00 ng/mL Normal 4.60-34.80 [facility] Comment on above: Order Comment: Order Date: 10/29/24Order Info: [id number] - CMPOrder Info: 6-3 - TSHOrder Info: [id number] - FOLSN Result Comment: Hemo lysis, Results will be affected, Requires Recollection. Performed By: #### L 506.0250, L501.9520, L501.9985, L100.0100, L500.4050 ####[facility] [address] [place], [address] Hemoglobin A1con 10-30-2024 HbA1c (Bld) [Mass fraction] 5.8 % Normal <=5.6 [facility] Comment on above: Order Comment: Order Date: 10/29/24Order Info: [id number] - A1C Performed By: #### L 506.0250, L501.9520, L501.9985, L100.0100, L500.4050 ####[facility] [address] [place], [address] L503.0106on 10-30-2024 Cobalamin (Vitamin B12) [Mass/Vol] 555 pg/mL Normal 180-914 [facility] Comment on above: Order Comment: Order Date: 10/29/24 Order Info: [id number] - CMP Order Info: 3016-3 - TSH Order Info: 2284-8 - FOLS Performed By: #### L 506.0400, L503.0106 #### [facility] [address] [place], [address] Thyroid Stim Hormone (TSH)on 10-30-2024 TSH 6.000 uIU/mL High 0.300-4.200 [facility] Comment on above: Order Comment: Order Date: 10/29/24Order Info: [id number] - CMPOrder Info: [id number] - TSHOrder Info: 228-8 - FOLS Performed By: #### L 506.0250, L501.9520, L501.9985, L100.0100, L500.4050 ####[facility] [address] [place], [address] Absolute lymphocyte countOrd ered By: Ethan Avendano on 10-29-2024 Lymphocytes Auto (Unsp spec) [#/Vol] 0.90 10*3/uL 0.83-4.51 [facility] Absolute neutrophil countOrd ered By: Ethan Avendano on 10-29-2024 Neutrophils (Bld) [#/Vol] 3.2 10*3/uL 2.0-7.7 [facility] Automated lymphocyte count a s percentage of total leukocytesOrdered By: Ethan Avendano on 10-29-2024 Lymphocytes/100 WBC Auto (Unsp spec) 19.3 % 19- [facility] BUN/creatinine ratioOrdered By: Ethan Avendano on 10-29-2024 Urea nitrogen/Creatinine [Mass ratio] 16.3 mg/mg 10- [facility] Basophil percentageOrdered B y: Ethan Avendano on 10-29-2024 Basophils/100 WBC (Bld) 0.2 % 0-1 [facility] Bilirubin, totalOrdered By: Ethan Avendano on 10-29-2024 Bilirubin [Mass/Vol] 0.52 mg/dL 0.00-1.30 [facility] CBC W/Diff, Automatedon 10-06 Absolute Lymph 0.90 X10 3/uL Normal 0.83-4.51 [facility] Comment on above: Order Comment: Order Date: 10/29/24Order Info: [id number] - CBCD Performed By: #### L 506.0250, L501.9520, L501.9985, L100.0100, L500.4050 ####[facility] [address] [place], [address] Absolute Neut 3.2 X10 3/uL Normal 2.0-7.7 [facility] Comment on above: Order Comment: Order Date: 10/29/24Order Info: [id number] - CBCD Performed By: #### L 506.0250, L501.9520, L501.9985, L100.0100, L500.4050 ####[facility] [address] [place], [address] Basophils/100 WBC (Bld) 0.2 % Normal 0-1 [facility] Comment on above: Order Comment: Order Date: 10/29/24Order Info: 0184-1 - CBCD Performed By: #### L 506.0250, L501.9520, L501.9985, L100.0100, L500.4050 ####[facility] [address] [place], [address] Eosinophils/100 WBC (Bld) 0.0 % Normal 0-5 [facility] Comment on above: Order Comment: Order Date: 10/29/24Order Info: 0184-1 - CBCD Performed By: #### L 506.0250, L501.9520, L501.9985, L100.0100, L500.4050 ####[facility] [address] [place], [address] Erythrocyte distribution width (RBC) [Ratio] 12.9 % Normal 11.6-14.6 [facility] Comment on above: Order Comment: Order Date: 10/29/24Order Info: 0184-1 - CBCD Performed By: #### L 506.0250, L501.9520, L501.9985, L100.0100, L500.4050 ####[facility] [address] [place], [address] Hematocrit (Bld) [Volume fraction] 41.1 % Normal 40-54 [facility] Comment on above: Order Comment: Order Date: 10/29/24Order Info: 0184-1 - CBCD Performed By: #### L 506.0250, L501.9520, L501.9985, L100.0100, L500.4050 ####[facility] [address] [place], [address] Hemoglobin (Bld) [Mass/Vol] 13.7 g/dL Normal 13.0-16.5 [facility] Comment on above: Order Comment: Order Date: 10/29/24Order Info: 0184-1 - CBCD Performed By: #### L 506.0250, L501.9520, L501.9985, L100.0100, L500.4050 ####[facility] [address] [place], [address] IG% 0.400 Normal 0.0-0.9 [facility] Comment on above: Order Comment: Order Date: 10/29/24Order Info: 0184-1 - CBCD Result Comment: IG% - Immature Granulocytes (promyelocytes, myelocytes and metamyelocytes) > 1% indicates that a LEFT SHIFT is Present. Performed By: #### L 506.0250, L501.9520, L501.9985, L100.0100, L500.4050 ####[facility] [address] [place], [address] Lymphocytes/100 WBC (Bld) 19.3 % Normal 19-41 [facility] Comment on above: Order Comment: Order Date: 10/29/24Order Info: 0184-1 - CBCD Performed By: #### L 506.0250, L501.9520, L501.9985, L100.0100, L500.4050 ####[facility] [address] [place], [address] MCH (RBC) [Entitic mass] 30.5 pg Normal 27.0-32.0 [facility] Comment on above: Order Comment: Order Date: 10/29/24Order Info: 0184-1 - CBCD Performed By: #### L 506.0250, L501.9520, L501.9985, L100.0100, L500.4050 ####[facility] [address] [place], [address] MCHC (RBC) [Mass/Vol] 33.3 g/dL Normal 32-36 [facility] Comment on above: Order Comment: Order Date: 10/29/24Order Info: 0184-1 - CBCD Performed By: #### L 506.0250, L501.9520, L501.9985, L100.0100, L500.4050 ####[facility] [address] [place], [address] MCV (RBC) [Entitic vol] 91.5 fL Normal 80-94 [facility] Comment on above: Order Comment: Order Date: 10/29/24Order Info: 0184-1 - CBCD Performed By: #### L 506.0250, L501.9520, L501.9985, L100.0100, L500.4050 ####[facility] [address] [place], [address] Monocytes/100 WBC (Bld) 10.7 % High 0-10 [facility] Comment on above: Order Comment: Order Date: 10/29/24Order Info: 0184-1 - CBCD Performed By: #### L 506.0250, L501.9520, L501.9985, L100.0100, L500.4050 ####[facility] [address] [place], [address] Neutrophils/100 WBC (Bld) 69.4 % Normal 47-70 [facility] Comment on above: Order Comment: Order Date: 10/29/24Order Info: 018-1 - CBCD Performed By: #### L 506.0250, L501.9520, L501.9985, L100.0100, L500.4050 ####[facility] [address] [place], [address] Nucleated RBC (Bld) [#/Vol] 0 10*3/uL Normal 0-5 [facility] Comment on above: Order Comment: Order Date: 10/29/24Order Info: 0184-1 - CBCD Performed By: #### L 506.0250, L501.9520, L501.9985, L100.0100, L500.4050 ####[facility] [address] [place], [address] Platelet mean volume (Bld) [Entitic vol] 11.4 fL Normal 6.2-12.0 [facility] Comment on above: Order Comment: Order Date: 10/29/24Order Info: 0184-1 - CBCD Performed By: #### L 506.0250, L501.9520, L501.9985, L100.0100, L500.4050 ####[facility] [address] [place], [address] Platelets (Bld) [#/Vol] 126 10*3/uL Low 150-450 [facility] Comment on above: Order Comment: Order Date: 10/29/24Order Info: 0184-1 - CBCD Performed By: #### L 506.0250, L501.9520, L501.9985, L100.0100, L500.4050 ####[facility] [address] [place], [address] RBC (Bld) [#/Vol] 4.49 10*6/uL Low 4.6-6.[address] [facility] Comment on above: Order Comment: Order Date: 10/29/24Order Info: 0184-1 - CBCD Performed By: #### L 506.0250, L501.9520, L501.9985, L100.0100, L500.4050 ####[facility] [address] [place], [address] RDW SD 42.5 fl Normal 35.1-43.9 [facility] Comment on above: Order Comment: Order Date: 10/29/24Order Info: 0184-1 - CBCD Performed By: #### L 506.0250, L501.9520, L501.9985, L100.0100, L500.4050 ####[facility] [address] [place], [address] WBC (Bld) [#/Vol] 4.7 10*3/uL Normal 4.4-11.0 [facility] Comment on above: Order Comment: Order Date: 10/29/24Order Info: 0184-1 - CBCD Performed By: #### L 506.0250, L501.9520, L501.9985, L100.0100, L500.4050 ####[facility] [address] [place], [address] Carbon dioxide measurementOr dered By: Ethan Avendano on 10-29-2024 CO2 [Moles/Vol] 25.1 mmol/L 22.0-29.0 [facility] Chloride measurementOrdered By: Ethan Avendano on 10-29-2024 Chloride [Moles/Vol] 102 mmol/L 96-108 [facility] Creatinine [Moles/Vol]Ordere d By: Ethan Avendano on 10-29-2024 Creatinine [Mass/Vol] 1.0 mg/dL 0.8-1.3 [facility] Eosinophil percentageOrdered By: Ethan Avendano on 10-29-2024 Eosinophils/100 WBC (Bld) 0.0 % 0-5 [facility] Erythrocyte distribution wid th ratioOrdered By: Ethan Avendano on 10-29-2024 Erythrocyte distribution width (RBC) [Ratio] 12.9 % 11.6-14.6 [facility] Erythrocyte distribution wid th standard deviationOrdered By: Ethan Avendano on 10-29-2024 Erythrocyte distribution width (RBC) [Entitic vol] 42.5 fL 35.1-43.9 [facility] Erythrocyte distribution width (RBC) [Ratio] 42.5 fl 35.1-43.9 [facility] Folate measurementOrdered By : Ethan Avendano on 10-29-2024 Folate 32.00 ng/mL 4.60-34.80 [facility] Comment on above: Hemolysis, Results w ill be affected, Requires Recollection. GFR/1.73 sq M.predicted maxine g non-blacks MDRD (S/P/Bld) [Vol rate/Area]Ordered By: Ethan Avendano on 10-29-2024 Estimated GFR (MDRD) Non-Af Amer 86 >60 [facility] Comment on above: mL/min/1.73m2 CKD-EP I Creatinine Equation (2020) Glomerular filtration rate ( GFR) estimation/1.73 sq m using serum, plasma, or whole bOrdered By: Ethan Avendano on 10-29-2024 GFR/1.73 sq M.predicted among non-blacks MDRD (S/P/Bld) [Vol rate/Area] 86 mL/min/{1.73_m2} >60 [facility] Comment on above: mL/min/1.73m2 CKD-EP I Creatinine Equation (2020) Hematocrit Auto (Bld) [Volum e fraction]Ordered By: Ethan Avendano on 10-29-2024 Hematocrit (Bld) [Volume fraction] 41.1 % 40-54 [facility] Hemoglobin A1c percentageOrd ered By: Ethan Avendano on 10-29-2024 HbA1c (Bld) [Mass fraction] 5.8 % >5.7 [facility] Hemoglobin measurementOrdere d By: Ethan Avendano on 10-29-2024 Hemoglobin (Bld) [Mass/Vol] 13.7 g/dL 13.0-16.5 [facility] Immature granulocytes/100 WB C Auto (Bld)Ordered By: Ethan Avendano on 10-29-2024 Immature granulocytes/100 WBC (Bld) 0.400 % 0.0-0.9 [facility] Comment on above: IG% - Immature Granu locytes (promyelocytes, myelocytes and metamyelocytes) > 1% indicates that a LEFT SHIFT is Present. Laboratory - Chemistry and C hemistry - challengeOrdered By: Ethan Avendano on 10-29-2024 AST [Catalytic activity/Vol] 35 U/L <38 [facility] Cobalamin (Vitamin B12) [Mass/Vol] 555 pg/mL 180-914 [facility] Lymphocytes Auto (Unsp spec) [#/Vol]Ordered By: Ethan Avendano on 10-29-2024 Lymphocytes (Bld) [#/Vol] 0.90 10*3/uL 0.83-4.51 [facility] Lymphocytes/100 WBC Auto (Un sp spec)Ordered By: Ethan Avendano on 10-29-2024 Lymphocytes/100 WBC (Bld) 19.3 % 19-41 [facility] MCV (mean corpuscular volume ) determinationOrdered By: Ethan Avendano on 10-29-2024 MCV (RBC) [Entitic vol] 91.5 fL 80-94 [facility] Mean corpuscular hemoglobin (MCH) determinationOrdered By: Ethan Avendano on 10-29-2024 MCH (RBC) [Entitic mass] 30.5 pg 27.0-32.0 [facility] Mean corpuscular hemoglobin concentration (MCHC) determinationOrdered By: Ethan Avendano on 10-29-2024 MCHC (RBC) [Mass/Vol] 33.3 g/dL 32-36 [facility] Mean platelet volume determi nationOrdered By: Ethan Avendano on 10-29-2024 Platelet mean volume (Bld) [Entitic vol] 11.4 fL 6.2-12.0 [facility] Monocyte percentageOrdered B y: Ethan Avendano on 10-29-2024 Monocytes/100 WBC (Bld) 10.7 % High 0-10 [facility] Neutrophil percentageOrdered By: Ethan Avendano on 10-29-2024 Neutrophils/100 WBC (Bld) 69.4 % 47-70 [facility] Nucleated red blood cell per centageOrdered By: Ethan Avendano on 10-29-2024 Nucleated RBC/100 WBC (Bld) [Ratio] 0 % 0-5 [facility] Platelet countOrdered By: Abdulkadir Avendano on 10-29-2024 Platelets (Bld) [#/Vol] 126 10*3/uL Low 150-450 [facility] RBC Auto (Bld) [#/Vol]Ordere d By: Ethan Avendano on 10-29-2024 RBC (Bld) [#/Vol] 4.49 10*6/uL Low 4.6-6.[address] [facility] Serum globulin measurementOr dered By: Ethan Avendano on 10-29-2024 Globulin (S) [Mass/Vol] 2.4 g/dL 2.2-4.2 [facility] Serum glucose measurement (m ass/volume)Ordered By: Ethan Avendano on 10-29-2024 Glucose [Mass/Vol] 80 mg/dL 70-99 [facility] Serum or plasma alanine garcia otransferase (ALT) measurementOrdered By: Ethan Avendano on 10-29-2024 ALT [Catalytic activity/Vol] 31 U/L <47 [facility] Serum or plasma albumin john urement (mass/volume)Ordered By: Ethan Avendano on 10-29-2024 Albumin [Mass/Vol] 4.3 g/dL 3.4-4.8 [facility] Serum or plasma albumin/glob ulin mass ratioOrdered By: Ethan Avendano on 10-29-2024 Albumin/Globulin [Mass ratio] 1.8 {ratio} 0.9-2.4 [facility] Serum or plasma alkaline dylon sphatase measurementOrdered By: Ethan Avendano on 10-29-2024 ALP [Catalytic activity/Vol] 63 U/L 40-129 [facility] Serum or plasma anion gap de termination (moles/volume)Ordered By: Ethan Avendano on 10-29-2024 Anion gap [Moles/Vol] 11 mmol/L 5-15 [facility] Serum or plasma calcium john urement (mass/volume)Ordered By: Ethan Avendano on 10-29-2024 Calcium [Mass/Vol] 9.6 mg/dL 7.6-11.0 [facility] Serum or plasma creatinine m easurement (moles/volume)Ordered By: Ethan Avendano on 10-29-2024 Creatinine [Moles/Vol] 1.0 mg/dL 0.8-1.3 [facility] Serum or plasma potassium me asurementOrdered By: Ethan Avendano on 10-29-2024 Potassium [Moles/Vol] 4.5 mmol/L 3.3-5.1 [facility] Serum or plasma sodium measu rement (moles/volume)Ordered By: Ethan Avendano on 10-29-2024 Sodium [Moles/Vol] 138 mmol/L 133-145 [facility] Serum or plasma urea nitroge n measurement (mass/volume)Ordered By: Ethan Avendano on 10-29-2024 Urea nitrogen [Mass/Vol] 15 mg/dL 4-19 [facility] T4 freeOrdered By: Ethan cheng on 10-29-2024 Free T4 [Mass/Vol] 0.90 ng/dL 0.76-1.46 [facility] [facility] TSH DL <= 0.005 mIU/L QnOrde red By: Ethan Avendano on 10-29-2024 Thyroid Stimulating Hormone (TSH) 6.000 uIU/mL High 0.300-4.200 [facility] TSH Qn 6.000 uIU/mL High 0.300-4.200 [facility] Total proteinOrdered By: Gaby Avendano on 10-29-2024 Protein [Mass/Vol] 6.7 g/dL 5.9-8.4 [facility] White blood cell (WBC) count Ordered By: Ethan Avendano on 10-29-2024 WBC (Bld) [#/Vol] 4.7 10*3/uL 4.4-11.0 [facility] Barium Enema w/Air Contrasto n 09-11-2024 Barium Enema w/Air Contrast [facility] Imaging Services [address] [place] [address] Barium Enema w/Air Contrast MR#: [id number] Acct: [id number] Name: FRANCISCO RAMOS Rep #: [id number] : 1950 74 From: Derick villarreal MD PCP: Dr. Ethan Avendano MD Status: [facility] Study: Barium Enema w/Air Contrast Date of Exam: 04/28 Exam# [id number] Ordering Dr: Jameel Oseguera [id number] STUDY: BARIUM ENEMA. REASON FOR EXAM: Male, 74 years old. Incomplete colonoscopy/tortuous colon FLUOROSCOPY TIME (if supplied): ( 1 minute and 40 seconds ) minutes/seconds. 93.09 mGy. 7 images were obtained. TECHNIQUE: A data entry assistant film was obtained. Following this, barium enema [...] Signed: Derick Strong MD at 13:52 EST , CC: Dr. Jameel Oseguera MD; Dr. Ethan Avendano MD Vegetable Farmer: Signed Normal [facility] Colonoscopy Reporton 024 Colonoscopy Report [facility] Medical Records Department [address] [place] [address] Colonoscopy Report MR#: [id number] Acct: [id number] Name: FRANCISCO RAMOS Rep #: [id number] : 1950 74 From: Jameel Oseguera MD PCP: Dr. Ethan Avendano MD Status:REG [facility] Patient Name: Francisco Ramos Procedure Date: 08/23/2024 8:12 AM Date of [...] barium enema. Procedure Code(s): --- Professional --- 29897, 53, Colonoscopy, flexible; diagnostic, including collection of specimen(s) by brushing or washing, when performed (separate procedure) Diagnosis Code(s): --- Professional --- R19.5, Other fecal abnormalities Q43.8, Other specified congenital malformations of intestine CPT copyright 2021 [employer]. All rights reserved. The codes documented in this report are preliminary and upon director process improvement review may be revised to meet current compliance requirements. Jameel Oseguera MD 08/23/2024 8:53:45 AM This report has been signed electronically. Number of Addenda: 0 Note Initiated On: 08/23/2024 8:12 AM 08/23/24853 Date Jameel Oseguera MD Cosigner Signature: Date (if indicated) CC: Dr. Jameel Oseguera MD; Dr. Ethan Avendano MD Date Dictated: 08/23/24811 Date Transcribed: Vegetable Farmer: HELLEN Signed [facility] MR/POSTOP.Ladan 08-23-2024 MR/POSTOP.[facility] Medical Records Department [address] [place] [address] Anesthesia Postop Eval I 08/23/24 0859 MR#: [id number] Acct: [id number] Name: FRANCISCO RAMOS Rep #: [id number] : 1950 74 From: Herman Villa PCP: Dr. Ethan Avendnao MD Status:REG SDC Y Race: C Location: [place] [address] Anesthesia: Postop Eval I Current Vital Signs [...] Eval 1 completed: Yes 08/23/24900 Date Herman Lemsoignabdulkadir Signature: Date CC: Signed Normal [facility] MR/[id number] 08-23-2024 [facility] Medical Records Department [address] [place] [address] Anesthesia Postop Eval II 08/23/24910 MR#: [id number] Acct: [id number] Name: FRANCISCO RAMOS Rep #: [id number] : 1950 74 From: Aleksandar Hudson MD PCP: Dr. Ethan Avendano MD Status:REG [facility] Y Race: C Location: [place] [address] Anesthesia Postop Eval I Sum Postop Eval [...] Pain Level: 0 nausea: No Vomiting: No 08/23/24 0911 Date Aleksandar Cruz Signature: Date CC: Signed Normal [facility] MR/WHITLEYjenny 08-22-2024 MR/MARIEL.LOBO [facility] Medical Records Department [address] [facility] [place] [address] PAT - Anesthesia 08/22/24 1525 MR#: [id number] Acct: [id number] Name: FRANCISCO RAMOS Rep #: [id number] : 1950 74 From: Sage Tracey MD PCP: Dr. Ethan Avendano MD Status:[facility] Y Race: C Location: [place] Pre-Assessment Diagnosis/Proposed Procedure Planned Operative Procedure(s): CSCOPE Anesthesia History Anesthesia History - electrical contacts adjuster: Anesthesia History - electrical contacts adjuster Hx Hospitalization No 08/22/24 10:23 Any Problems [...] take am of surgery PONV PONV - electrical contacts adjuster: PONV - electrical contacts adjuster Female No 08/22/24 10:23 HX of Motion [...] 07/11/24 11:11 Respiratory Assessment Respiratory Assessment - electrical contacts adjuster: Respiratory Tract Infection Hx - electrical contacts adjuster Hx Respiratory Tract Infection No 08/22/24 10:23 STOP Sleep Apnea STOP Sleep Apnea - electrical contacts adjuster: STOP Sleep Apnea - electrical contacts adjuster Hx Hypertension No 08/22/24 10:23 Hx Sleep [...] Tobacco Use History Tobacco Use History - electrical contacts adjuster: Tobacco Use History - electrical contacts adjuster Tobacco Use Smoking Status Never smoker 08/22/24 10:23 Hx Tobacco Use No 08/22/24 10:23 Years Smoking Packs Smoked per Day Smoking Cessation Date was within the last 15 years Hx Smoking Cessation Date Hx Smoking Cessation Counseling Hematologic Medial History Hematologic Hx - electrical contacts adjuster: Hematologic 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 - 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 Hx of Blood Transfusion No 08/22/24 10:23 [...] /Reproducti on History /Reproducti ve History - electrical contacts adjuster: /Reproducti ve Hx- electrical contacts adjuster Hx Now No 08/22/24 10:23 Gestational Age (in weeks): EDC: Hx Hx Para Hx Section SAB No 08/22/24 10:23 [facility] Medical History (Updated 08/22/24 @ 10:37 by Bebe Nava) Wears glasses Arthritis High cholesterol Easy bruising Back pain Non-smoker History of pain when walking History of echocardiogram History of stress test Cardiology follow-up encounter Parkinson disease Atherosclerosis of coronary artery of [place] heart without angina pectoris Hyperlipidemia Common variable immunodeficiency Benign prostate hyperplasia Basal cell carcinoma of left ear Home Medications ???Medication ???Instructions ???Recorded ???Last Taken ???Type multivitamin with folic acid 400 1 tab PO DAILY 06/10/13 08/19/24 History mcg tablet folic acid 400 mcg tablet 1 tab PO DAILY 12/24/13 Unknown History immune glob,gamma(IgG) 10 20 g .Route .[id number] 03/04/19 Unknown History xqxr-sjw-lmpt-IgA 0 to 50 mcg/mL IV solution nitroglycerin 0.4 mg sublingual 0.4 mg sublingual Q5-15M PRN chest 04/03/19 Unknown Rx tablet pain #25 tabs celecoxib 200 mg capsule 200 mg PO BID 06/04 (more content not included)... Normal [facility] Surgery Visit Reporton 07-10 Surgery Visit Report [facility] [address] [place] [address] [address] [place] [address] OFFICE VISIT Date of Service: 07/10/24 MR#: [id number] Acct: [id number] Name: FRANCISCO RAMOS Rep #: [id number] : 1950 Provider: Dr. Jameel workman MD Age/Sex: 74/M Location: [facility] Status: Signed Intake Vital Signs 06/06/24 10:48 [...] History immune glob,gamma(IgG) 10 20 g .Route .[id number] 03/04/19 07/10/24 History loxi-bix-ojxe-IgA 0 to 50 mcg/mL IV solution nitroglycerin [...] chest CT Atherosclerosis of coronary artery of [place] heart without angina pectoris Basal cell carcinoma [...] No heada (more content not included)... Normal [facility] PSA,Total - Annual Screenon 03-28-2024 PSA,TOT SCREEN 4.65 ng/mL High 0.00-4.00 [facility] Comment on above: Result Comment: This test was performed using the TPSA assay method for the [employer] chemistry system. Values obtained with different assay methods cannot be used interchangably. When changing PSA assays in the course of monitoring a patient, additional sequential testing should be carried out to confirm baseline values. Performed By: #### L [id number] #### [facility] Laboratory [address] [place], [address] Absolute lymphocyte countOrd ered By: Ethan Avendano on 11-16-2023 Lymphocytes Auto (Unsp spec) [#/Vol] 0.84 10*3/uL 0.83-4.51 [facility] Automated lymphocyte count a s percentage of total leukocytesOrdered By: Ethan Avendano on 11-16-2023 Lymphocytes/100 WBC Auto (Unsp spec) 22.5 % 19-41 [facility] Basophil percentageOrdered B y: Ethan Avendano on 11-16-2023 Basophils/100 WBC (Bld) 0.0 % 0-1 [facility] Bilirubin [Mass/Vol] 0.70 mg/dL 0.20-1.00 [facility] Comment on above: For patients on eltr ombopag therapy, use of Dimension Marydel TBIL is not recommended. Chloride [Moles/Vol] 104 mmol/L 98-107 [facility] Cholesterol [Mass/Vol] 93 mg/dL <200 [facility] Comment on above: <200 mg/dL Desirable 200-240 mg/dL Borderline >240 mg/dL High Risk Eosinophils/100 WBC (Bld) 0.0 % 0-5 [facility] Glucose [Mass/Vol] 90 mg/dL 74-106 [facility] Hemoglobin (Bld) [Mass/Vol] 13.1 g/dL 13.0-16.5 [facility] Monocytes/100 WBC (Bld) 11.5 % 0-10 [facility] Neutrophils (Bld) [#/Vol] 2.5 10*3/uL 2.0-7.7 [facility] Neutrophils/100 WBC (Bld) 65.7 % 47-70 [facility] Potassium [Moles/Vol] 4.0 mmol/L 3.5-5.1 [facility] Protein [Mass/Vol] 6.8 g/dL 6.4-8.2 [facility] Sodium [Moles/Vol] 139 mmol/L 136-145 [facility] Triglyceride [Mass/Vol] 123 mg/dL <199 [facility] Comment on above: The drugs N-Acetylcy steine and Metamizole may falsely depress this assay.Serum Triglycerides Reference Interval Normal <150 mg/dL Borderline high 150 - 199 mg/dL High 200 - 499 mg/dL Very High > or = 500 mg/dL WBC (Bld) [#/Vol] 3.7 10*3/uL 4.4-11.0 [facility] Determination of erythrocyte mean corpuscular volume (MCV)Ordered By: Ethan Avendano on 11-16-2023 MCV (RBC) [Entitic vol] 92.2 fL 80-94 [facility] Erythrocyte distribution wid th ratioOrdered By: Ethan Avendano on 11-16-2023 Erythrocyte distribution width (RBC) [Ratio] 13.2 % 11.6-14.6 [facility] Erythrocyte distribution wid th standard deviationOrdered By: Ethan Avendano on 11-16-2023 Erythrocyte distribution width (RBC) [Entitic vol] 45.0 fL 35.1-43.9 [facility] Hematocrit Auto (Bld) [Volum e fraction]Ordered By: Ethan Avendano on 11-16-2023 Hematocrit (Bld) [Volume fraction] 40.3 % 40-54 [facility] Immature granulocytes/100 WB C Auto (Bld)Ordered By: Ethan Avendano on 11-16-2023 Immature granulocytes/100 WBC (Bld) 0.300 % 0.0-0.9 [facility] Comment on above: IG% - Immature Granu locytes (promyelocytes, myelocytes and metamyelocytes) > 1% indicates that a LEFT SHIFT is Present. Laboratory - Chemistry and C hemistry - challengeOrdered By: Ethan Avendano on 11-16-2023 Albumin/Globulin [Mass ratio] 1.1 {ratio} 0.9-2.4 [facility] ALP [Catalytic activity/Vol] 54 U/L 45-117 [facility] ALT [Catalytic activity/Vol] 26 U/L 16-61 [facility] Cholesterol in HDL [Mass/Vol] 31 mg/dL >40 [facility] Comment on above: The drugs N-Acetylcy steine and Metamizole may falsely depress this assay. Reference Range HDL <40 mg/dL Low HDL Cholesterol HDL >or= 60 mg/dL High HDL Cholesterol Cholesterol in LDL [Mass/Vol] 37 mg/dL 0-130 [facility] CO2 [Moles/Vol] 28.0 mmol/L 21.0-32.0 [facility] Globulin (S) [Mass/Vol] 3.2 g/dL 2.2-4.2 [facility] Urea nitrogen/Creatinine [Mass ratio] 19.2 mg/mg 10-20 [facility] Laboratory - Hematology and Cell countsOrdered By: Ethan Avendano on 11-16-2023 MCH (RBC) [Entitic mass] 30.0 pg 27.0-32.0 [facility] MCHC (RBC) [Mass/Vol] 32.5 g/dL 32-36 [facility] Nucleated RBC/100 WBC (Bld) [Ratio] 0 % 0-5 [facility] Platelet mean volume (Bld) [Entitic vol] 11.8 fL 6.2-12.0 [facility] Platelets (Bld) [#/Vol] 103 10*3/uL 150-450 [facility] No Panel InformationOrdered By: Ethan Avendano on 11-16-2023 Estimated GFR (MDRD) Amer 109 mL/min >60 [facility] Comment on above: GFR Calc Estimated GFR (MDRD) Non-Af Amer 90 mL/min >60 [facility] Comment on above: Non- GFR Calc VLDL Cholesterol 25 mg/dL 5-40 [facility] RBC Auto (Bld) [#/Vol]Ordere d By: Ethan Avendano on 11-16-2023 RBC (Bld) [#/Vol] 4.37 10*6/uL 4.6-6.[address] [facility] Serum or plasma calcium john urement (mass/volume)Ordered By: Ethan Avendano on 11-16-2023 Calcium [Mass/Vol] 9.1 mg/dL 8.5-10.1 [facility] Serum or plasma creatinine m easurement (mass/volume)Ordered By: Ethan Avnedano on 11-16-2023 Creatinine [Mass/Vol] 0.89 mg/dL 0.70-1.30 [facility] Comment on above: The validity of the calculated GFR & GFRAA in patients over 70 years has not been determined. Clinical correlation is essential. Serum or plasma urea nitroge n measurement (mass/volume)Ordered By: Ethan Avendano on 11-16-2023 Urea nitrogen [Mass/Vol] 17 mg/dL 7-18 [facility] Thin prep Papanicolaou smear with manual screeningOrdered By: Ethan Avendano on 11-16-2023 Thin prep Papanicolaou smear with manual screening 3.6 g/dL 3.2-5.0 [facility] Thin prep Papanicolaou smear with manual screening 26 U/L 15-37 [facility] Thin prep Papanicolaou smear with manual screening 7 5-15 [facility] CNTHERAPYon 10-06-2023 CNTHERAPY OT/PT/Speech Visit (OTNOCA) FRANCISCO RAMOS ([id number]) 1950 M Date Time Provider Department 10/06/23 1:30 PM [facility]OR[facility] EUGENE Date Time Provider Department Center 10/06/2023 1:30 PM [id number]GEN[facility] Reason for Visit: OT Discharge [750] OT EVAL [748] Primary Visit Diagnosis:Parkinson' s disease, unspecified whether dyskinesia present, unspecified whether manifestations fluctuate [G20.A1] Other Visit Diagnoses:Abnormalit y of gait and mobility [R26.9] Abnormal coordination [R27.8] Irregular eye movements [H55.89] Allergies As of Date: 10/06/2023 Noted Allergy Reaction dust,mold grass [Other] 11/10/2005 Date Reviewed: 12/29/2022 Reviewed by: Latisha Robles MD - Fully Assessed Prescriptions as of [...] one(1) tablet daily. Letter Text Letter Text [facility] No Panel InformationOrdered By: Blaine Lee on 03-23-2023 Prostate Specific Antigen Screen 4.24 ng/mL 0.00-4.00 [facility] Comment on above: This test was perfor med using the TPSA assay method for theMod[facility] [employer] Center[employer] chemistry system. Values obtained with differentassay methods cannot be used interchangably.When changing PSA assays in the course of monitoring apatient, additional sequential testing should be carriedout to confirm baseline values. Basophil percentageOrdered B y: Lory He on 02-01-2023 Bilirubin [Mass/Vol] 0.50 mg/dL 0.20-1.00 [facility] Comment on above: For patients on eltr ombopag therapy, use of Dimension Marydel TBIL is not recommended. Cholesterol [Mass/Vol] 82 mg/dL <200 [facility] Comment on above: <200 mg/dL Desirable 200-240 mg/dL Borderline >240 mg/dL High Risk Protein [Mass/Vol] 6.9 g/dL 6.4-8.2 [facility] Triglyceride [Mass/Vol] 93 mg/dL <199 [facility] Comment on above: The drugs N-Acetylcy steine and Metamizole may falsely depress this assay.Serum Triglycerides Reference Interval Normal <150 mg/dL Borderline high 150 - 199 mg/dL High 200 - 499 mg/dL Very High > or = 500 mg/dL Direct bilirubinOrdered By: Lory He on 02-01-2023 Bilirubin.direct [Mass/Vol] 0.12 mg/dL 0.00-0.30 [facility] Laboratory - Chemistry and C hemistry - challengeOrdered By: Lory He on 02-01-2023 ALP [Catalytic activity/Vol] 71 U/L 45-117 [facility] ALT [Catalytic activity/Vol] 15 U/L 16-61 [facility] Globulin (S) [Mass/Vol] 3.4 g/dL 2.2-4.2 [facility] Serum or plasma albumin john urement (mass/volume)Ordered By: Lory He on 02-01-2023 Albumin [Mass/Vol] 3.5 g/dL 3.2-5.0 [facility] Serum or plasma cholesterol in HDL measurement (mass/volume)Ordered By: Lory He on 02-01-2023 Cholesterol in HDL [Mass/Vol] 29 mg/dL >40 [facility] Comment on above: The drugs N-Acetylcy steine and Metamizole may falsely depress this assay. Reference Range HDL <40 mg/dL Low HDL Cholesterol HDL >or= 60 mg/dL High HDL Cholesterol Serum or plasma cholesterol in VLDL measurement (mass/volume)Ordered By: Lory He on 02-01-2023 Cholesterol in VLDL [Mass/Vol] 19 mg/dL 5-40 [facility] Serum or plasma low density lipoprotein (LDL) cholesterol measurement (mass/volume)Ordered By: Lory He on 02-01-2023 Cholesterol in LDL [Mass/Vol] 34 mg/dL 0-130 [facility] Thin prep Papanicolaou smear with manual screeningOrdered By: Lory He on 02-01-2023 Thin prep Papanicolaou smear with manual screening 30 U/L 15-37 [facility] CNOVon 12-29-2022 CNOV Office Visit (NRMDN) FRANCISCO RAMOS ([id number]) 1950 M Date Time Provider Department 12/29/22 8:00 AM LATISHA ROBLES During your visit today, we recorded the following information about you: Pulse Blood pressure 99/minute 121/64 Latisha Robles MD 12/29/2022 9:06 AM Signed It was [...] or you can send a message through [employer]. You can also now schedule and select appointments through [employer]. MD Latisha Ta MD 12/29/2022 10:53 AM Signed [facility] - NEW PATIENT EVALUATION Lacy Goldberg MD NO FORWARDING ADDRESS I had the pleasure of evaluating Mr. Ramos to our clinic today. As you know [...] last fall. torn rotator cuff. [employer] nondenominational group- spectates more than helping Difficulties turning [...] for Fa (more content not included)... Normal [facility] Absolute lymphocyte countOrd ered By: Dr. Avendano on 07-07-2022 Lymphocytes Auto (Unsp spec) [#/Vol] 0.77 10*3/uL 0.83-4.51 [facility] Basophil percentageOrdered B y: Dr. Avendano on 07-07-2022 Basophils/100 WBC (Bld) 0.0 % 0-1 [facility] Bilirubin [Mass/Vol] 0.50 mg/dL 0.20-1.00 [facility] Comment on above: For patients on eltr ombopag therapy, use of Dimension Marydel TBIL is not recommended. Chloride [Moles/Vol] 104 mmol/L 98-107 [facility] Eosinophils/100 WBC (Bld) 0.0 % 0-5 [facility] Glucose [Mass/Vol] 114 mg/dL 74-106 [facility] Comment on above: Fasting Glucose resu lt from 100 to 125 mg/dL suggests IMPAIRED HOMEOSTASIS per A.D.A. criteria. Neutrophils (Bld) [#/Vol] 3.7 10*3/uL 2.0-7.7 [facility] Neutrophils/100 WBC (Bld) 74.9 % 47-70 [facility] Potassium [Moles/Vol] 4.3 mmol/L 3.5-5.1 [facility] Protein [Mass/Vol] 6.8 g/dL 6.4-8.2 [facility] Sodium [Moles/Vol] 136 mmol/L 136-145 [facility] WBC (Bld) [#/Vol] 4.9 10*3/uL 4.4-11.0 [facility] Blood erythrocytes count (nu mber/volume)Ordered By: Dr. Avendano on 07-07-2022 RBC (Bld) [#/Vol] 4.38 10*6/uL 4.6-6.[address] [facility] Blood hemoglobin measurement (mass/volume)Ordered By: Dr. Avendano on 07-07-2022 Hemoglobin (Bld) [Mass/Vol] 13.8 g/dL 13.0-16.5 [facility] Blood lymphocytes/100 leukoc ytesOrdered By: Dr. Avendano on 07-07-2022 Lymphocytes/100 WBC (Bld) 15.6 % 19-41 [facility] Blood monocytes/100 leukocyt esOrdered By: Dr. Avendano on 07-07-2022 Monocytes/100 WBC (Bld) 9.1 % 0-10 [facility] Blood platelet mean volumeOr dered By: Dr. Avendano on 07-07-2022 Platelet mean volume (Bld) [Entitic vol] 12.0 fL 6.2-12.0 [facility] Determination of erythrocyte mean corpuscular volume (MCV)Ordered By: Dr. Avendano on 07-07-2022 MCV (RBC) [Entitic vol] 94.1 fL 80-94 [facility] Hematocrit Auto (Bld) [Volum e fraction]Ordered By: Dr. Avendano on 07-07-2022 Hematocrit (Bld) [Volume fraction] 41.2 % 40-54 [facility] Laboratory - Chemistry and C hemistry - challengeOrdered By: Dr. Avendano on 07-07-2022 ALP [Catalytic activity/Vol] 59 U/L 45-117 [facility] ALT [Catalytic activity/Vol] 39 U/L 16-61 [facility] CO2 [Moles/Vol] 29.0 mmol/L 21.0-32.0 [facility] Globulin (S) [Mass/Vol] 3.1 g/dL 2.2-4.2 [facility] Urea nitrogen/Creatinine [Mass ratio] 28.5 mg/mg 10-20 [facility] Laboratory - Hematology and Cell countsOrdered By: Dr. Avendano on 07-07-2022 Erythrocyte distribution width (RBC) [Entitic vol] 43.1 fL 35.1-43.9 [facility] Erythrocyte distribution width (RBC) [Ratio] 12.4 % 11.6-14.6 [facility] Immature granulocytes/100 WBC (Bld) 0.400 % 0.0-0.9 [facility] Comment on above: IG% - Immature Granu locytes (promyelocytes, myelocytes and metamyelocytes) > 1% indicates that a LEFT SHIFT is Present. MCH (RBC) [Entitic mass] 31.5 pg 27.0-32.0 [facility] Nucleated RBC/100 WBC (Bld) [Ratio] 0 % 0-5 [facility] MCHC Auto (RBC) [Mass/Vol]Or dered By: Dr. Avendano on 07-07-2022 MCHC (RBC) [Mass/Vol] 33.5 g/dL 32-36 [facility] No Panel InformationOrdered By: Dr. Avendano on 07-07-2022 Estimated GFR (MDRD) Amer 135 mL/min >60 [facility] Comment on above: GFR Calc Estimated GFR (MDRD) Non-Af Amer 112 mL/min >60 [facility] [facility] [place] Comment on above: Non- GFR Calc Platelets bldOrdered By: Dr. Avendano on 07-07-2022 Platelets (Bld) [#/Vol] 112 10*3/uL 150-450 [facility] Serum or plasma albumin john urement (mass/volume)Ordered By: Dr. Avendano on 07-07-2022 Albumin [Mass/Vol] 3.7 g/dL 3.2-5.0 [facility] Serum or plasma albumin/glob ulin mass ratioOrdered By: Dr. Avendano on 07-07-2022 Albumin/Globulin [Mass ratio] 1.2 {ratio} 0.9-2.4 [facility] Serum or plasma calcium john urement (mass/volume)Ordered By: Dr. Avendano on 07-07-2022 Calcium [Mass/Vol] 9.2 mg/dL 8.5-10.1 [facility] Serum or plasma creatinine m easurement (mass/volume)Ordered By: Dr. Avendano on 07-07-2022 Creatinine [Mass/Vol] 0.74 mg/dL 0.70-1.30 [facility] Comment on above: The validity of the calculated GFR & GFRAA in patients over 70 years has not been determined. Clinical correlation is essential. Serum or plasma urea nitroge n measurement (mass/volume)Ordered By: Dr. Avendano on 07-07-2022 Urea nitrogen [Mass/Vol] 21 mg/dL 7-18 [facility] Thin prep Papanicolaou smear with manual screeningOrdered By: Dr. Avendano on 07-07-2022 Thin prep Papanicolaou smear with manual screening 26 U/L 15-37 [facility] [place] Thin prep Papanicolaou smear with manual screening 3 5-15 [facility] Absolute immature granulocyt e counton 12-02-2021 Immature granulocytes (Bld) [#/Vol] 0 10*3/uL 0.0-0.1 [facility] Work Phone: Absolute lymphocyte counton 12-02-2021 Lymphocytes Auto (Unsp spec) [#/Vol] 0.87 10*3/uL 0.83-4.51 [facility] Work Phone: Lymphocytes Auto (Unsp spec) [#/Vol] 1.0 10*3/uL 0.7-3.1 [facility] Work Phone: Basophil percentageon 2021 Basophils/100 WBC (Bld) 0.2 % 0-1 [facility] Work Phone: Bilirubin [Mass/Vol] 0.70 mg/dL 0.20-1.00 [facility] Work Phone: [phone] Comment on above: For patients on eltr ombopag therapy, use of Dimension Marydel TBIL is not recommended. Chloride [Moles/Vol] 106 mmol/L 98-107 [facility] Work Phone: [phone] Cholesterol [Mass/Vol] 80 mg/dL <200 [facility] Work Phone: [phone] Comment on above: <200 mg/dL Desirable 200-240 mg/dL Borderline >240 mg/dL High Risk Eosinophils/100 WBC (Bld) 0.0 % 0-5 [facility] Work Phone: [phone] Glucose [Mass/Vol] 94 mg/dL 74-106 [facility] Work Phone: [phone] Monocytes (Bld) [#/Vol] 0.4 10*3/uL 0.1-0.9 [facility] Work Phone: [phone] Neutrophils (Bld) [#/Vol] 4.2 10*3/uL 2.0-7.7 [facility] Work Phone: [phone] Neutrophils (Bld) [#/Vol] 4.4 10*3/uL 1.4-7.0 [facility] Work Phone: [phone] Neutrophils/100 WBC (Bld) 75.8 % 47-70 [facility] Work Phone: [phone] Potassium [Moles/Vol] 4.3 mmol/L 3.5-5.1 [facility] Work Phone: [phone] Protein [Mass/Vol] 6.8 g/dL 6.4-8.2 [facility] Work Phone: Sodium [Moles/Vol] 136 mmol/L 136-145 [facility] Work Phone: Triglyceride [Mass/Vol] 99 mg/dL <199 [facility] Work Phone: Comment on above: The drugs N-Acetylcy steine and Metamizole may falsely depress this assay.Serum Triglycerides Reference Interval Normal <150 mg/dL Borderline high 150 - 199 mg/dL High 200 - 499 mg/dL Very High > or = 500 mg/dL WBC (Bld) [#/Vol] 5.9 10*3/uL 3.4-10.8 [facility] Work Phone: Basophils/100 WBC Auto (Bld) on 12-02-2021 Basophils/100 WBC (Bld) 0 % Not Estab. [facility] Work Phone: Blood basophils count (numbe r/volume)on 12-02-2021 Basophils (Bld) [#/Vol] 0 10*3/uL 0.0-0.2 [facility] Work Phone: Blood eosinophils count (num nadiya/volume)on 12-02-2021 Eosinophils (Bld) [#/Vol] 0 10*3/uL 0.0-0.4 [facility] Work Phone: Blood hematocrit (volume fra ction)on 12-02-2021 Hematocrit (Bld) [Volume fraction] 41.1 % 37.5-51.0 [facility] Work Phone: Blood hemoglobin measurement (mass/volume)on 12-02-2021 Hemoglobin (Bld) [Mass/Vol] 13.6 g/dL 13.0-17.7 [facility] Work Phone: Blood immature cells/100 sherita kocyteson 12-02-2021 Immature cells/100 WBC (Bld) TNP [facility] Work Phone: Comment on above: Test not performed Blood immature granulocytes/ 100 leukocyteson 12-02-2021 Immature granulocytes/100 WBC (Bld) 0 % Not Estab. [facility] Work Phone: Blood lymphocytes/100 leukoc yteson 12-02-2021 Lymphocytes/100 WBC (Bld) 15.7 % 19-41 [facility] Work Phone: Blood monocytes/100 leukocyt eson 12-02-2021 Monocytes/100 WBC (Bld) 7.8 % 0-10 [facility] Work Phone: Blood platelet mean volumeon 12-02-2021 Platelet mean volume (Bld) [Entitic vol] 11.9 fL 6.2-12.0 [facility] Work Phone: CD3+CD8+ (T8 suppressor cell s) cells/100 cells (Bld)on 12-02-2021 CD3+CD8+ (T8 suppressor cells) cells (Bld) [#/Vol] 323 /uL 109-897 [facility] Work Phone: Count of whole blood cells p ositive for CD3 and CD4 antigens (number/volume)on 12-02-2021 CD3+CD4+ (T4 helper) cells (Bld) [#/Vol] 284 /uL [phone] [facility] Work Phone: Eosinophils/100 WBC Auto (Bl d)on 12-02-2021 Eosinophils/100 WBC (Bld) 0 % Not Estab. [facility] Work Phone: Erythrocyte distribution wid th ratioon 12-02-2021 Erythrocyte distribution width (RBC) [Ratio] 13.0 % 11.6-15.4 [facility] Work Phone: Interpretation of morphologi c examination of blood (narrative result)on 12-02-2021 Morphology Fritz (Bld) [Interp] TNP [facility] Work Phone: Comment on above: Test not performed Laboratory - Chemistry and C hemistry - challengeon 12-02-2021 ALP [Catalytic activity/Vol] 65 U/L 45-117 [facility] Work Phone: ALT [Catalytic activity/Vol] 15 U/L 16-61 [facility] Work Phone: CO2 [Moles/Vol] 26.0 mmol/L 21.0-32.0 [facility] Work Phone: Globulin (S) [Mass/Vol] 3.1 g/dL 2.2-4.2 [facility] Work Phone: Urea nitrogen/Creatinine [Mass ratio] 26.2 mg/mg 10-20 [facility] Work Phone: Laboratory - Hematology and Cell countson 12-02-2021 Erythrocyte distribution width (RBC) [Entitic vol] 43.1 fL 35.1-43.9 [facility] Work Phone: Erythrocyte distribution width (RBC) [Ratio] 12.8 % 11.6-14.6 [facility] Work Phone: Immature granulocytes/100 WBC (Bld) 0.500 % 0.0-0.9 [facility] Work Phone: Comment on above: IG% - Immature Granu locytes (promyelocytes, myelocytes and metamyelocytes) > 1% indicates that a LEFT SHIFT is Present. Nucleated RBC/100 WBC (Bld) [Ratio] 0 % 0-5 [facility] Work Phone: Lymphocytes/100 WBC Auto (Bl d)on 12-02-2021 Lymphocytes/100 WBC (Bld) 18 % Not Estab. [facility] Work Phone: MCHC Auto (RBC) [Mass/Vol]on 12-02-2021 MCHC (RBC) [Mass/Vol] 33.1 g/dL 31.5-35.7 [facility] Work Phone: Neutrophils Auto (Bld) [#/Vo l]on 12-02-2021 Neutrophils/100 WBC (Bld) 75 % Not Estab. [facility] Work Phone: No Panel Informationon 12-02 Estimated GFR (MDRD) Amer 116 mL/min >60 [facility] Work Phone: Comment on above: GFR Calc Estimated GFR (MDRD) Non-Af Amer 96 mL/min >60 [facility] Work Phone: Comment on above: Non- GFR Calc Prostate Specific Antigen Total 3.21 ng/mL 0.0-4.0 [facility] Work Phone: Comment on above: This test was perfor med using the TPSA assay method for [employer] chemistry system. Values obtained with differentassay methods cannot be used interchangably.When changing PSA assays in the course of monitoring apatient, additional sequential testing should be carriedout to confirm baseline values. Percentage of whole blood ce lls positive for CD3 and CD4 antigenson 12-02-2021 CD3+CD4+ (T4 helper) cells/100 cells (Bld) 28.4 % 30.8-58.5 [facility] Work Phone: Percentage of whole blood ce lls positive for CD3 and CD8 antigenson 12-02-2021 CD3+CD8+ (T8 suppressor cells) cells/100 cells (Bld) 32.3 % 12.0-35.5 [facility] Work Phone: Platelets bldon 12-02-2021 Platelets (Bld) [#/Vol] 103 10*3/uL 150-450 [facility] Work Phone: RBC Auto (Bld) [#/Vol]on RBC (Bld) [#/Vol] 4.41 10*6/uL 4.14-5.[address] [facility] Work Phone: Ratio of whole blood cells p ositive for CD3 and CD4 antigens to cells positive for CDon 12-02-2021 CD3+CD4+ (T4 helper) cells/CD3+CD8+ (T8 suppressor cells) cells (Bld) [# ratio] 0.88 % 0.92-3.72 [facility] Work Phone: Serum or plasma IgA measurem ent (mass/volume)on 12-02-2021 IgA [Mass/Vol] mg/dL 61-437 [facility] Work Phone: Comment on above: Result confirmed on concentration. Serum or plasma IgG measurem ent (mass/volume)on 12-02-2021 IgG [Mass/Vol] 723 mg/dL [phone] [facility] Work Phone: Serum or plasma IgM measurem ent (mass/volume)on 12-02-2021 IgM [Mass/Vol] mg/dL 20-172 [facility] Work Phone: Comment on above: Result confirmed on concentration.Performed at: [employer] [id number] Director: Rm Tyson PhD, Phone: [phone] Serum or plasma albumin john urement (mass/volume)on 12-02-2021 Albumin [Mass/Vol] 3.7 g/dL 3.2-5.0 [facility] Work Phone: Serum or plasma albumin/glob ulin mass ratioon 12-02-2021 Albumin/Globulin [Mass ratio] 1.2 {ratio} 0.9-2.4 [facility] Work Phone: Serum or plasma calcium john urement (mass/volume)on 12-02-2021 Calcium [Mass/Vol] 8.8 mg/dL 8.5-10.1 [facility] Work Phone: Serum or plasma cholesterol in HDL measurement (mass/volume)on 12-02-2021 Cholesterol in HDL [Mass/Vol] 27 mg/dL >40 [facility] Work Phone: Comment on above: The drugs N-Acetylcy steine and Metamizole may falsely depress this assay. Reference Range HDL <40 mg/dL Low HDL Cholesterol HDL >or= 60 mg/dL High HDL Cholesterol Serum or plasma cholesterol in VLDL measurement (mass/volume)on 12-02-2021 Cholesterol in VLDL [Mass/Vol] 20 mg/dL 5-40 [facility] Work Phone: Serum or plasma creatinine m easurement (mass/volume)on 12-02-2021 Creatinine [Mass/Vol] 0.84 mg/dL 0.70-1.30 [facility] Work Phone: Comment on above: The validity of the calculated GFR & GFRAA in patients over 70 years has not been determined. Clinical correlation is essential. Serum or plasma low density lipoprotein (LDL) cholesterol measurement (mass/volume)on 12-02-2021 Cholesterol in LDL [Mass/Vol] 33 mg/dL 0-130 [facility] Work Phone: Serum or plasma urea nitroge n measurement (mass/volume)on 12-02-2021 Urea nitrogen [Mass/Vol] 22 mg/dL 7-18 [facility] Work Phone: Thin prep Papanicolaou smear with manual screeningon 12-02-2021 Thin prep Papanicolaou smear with manual screening 34 U/L 15-37 [facility] Work Phone: Thin prep Papanicolaou smear with manual screening 4 5-15 [facility] Work Phone: Thin prep Papanicolaou smear with manual screening 93 fL 79-97 [facility] Work Phone: Thin prep Papanicolaou smear with manual screening 30.8 pg 26.6-33.0 [facility] Work Phone: Thin prep Papanicolaou smear with manual screening 7 % Not Estab. [facility] Work Phone: NM BRAIN DATSCANon 9 NM [...] Sign Date: 08/08/2019 8:56:11 AM Ordering Provider:Aureliano Bavis Normal [facility] ([place]) Vital Signs Date Time Vital Sign Value Performing Clinician Facility 03-21-2025 05:02-0400 Body temperature 97.59 [degF] Bhanu Jaxsonrakola DO Work Phone: [facility] 03-21-2025 05:02-0400 Diastolic blood pressure 89 mm[Hg] Bhanu Jaxsonrakola DO Work Phone: [facility] 03-21-2025 05:02-0400 Heart rate 89 /min Bhanu Urbankola DO Work Phone: [facility] 03-21-2025 05:02-0400 Respiratory rate 16 /min Bhanu Urbankola DO Work Phone: [facility] 03-21-2025 05:02-0400 SaO2% (BldA) [Mass fraction] 97 % Bhanu Urbankola DO Work Phone: [facility] 03-21-2025 05:02-0400 Systolic blood pressure 146 mm[Hg] Bhanu Jaxsonrakola DO Work Phone: [facility] 03-19-2025 12:28-0400 Body height 172.7 cm Bhanu Arletla DO Work Phone: [facility] 03-16-2025 06:20-0400 Body mass index (BMI) [Ratio] 21.29 kg/m2 Bhanu Nicela DO Work Phone: [facility] 03-16-2025 06:20-0400 Body weight 63.5 kg Bhanu Nicela DO Work Phone: [facility] 03-16-2025 04:39-0400 Body temperature 98.3 [degF] Dr. Ethan Avendano MD Work Phone: [facility] 03-16-2025 04:39-0400 Diastolic blood pressure 75 mm[Hg] Dr. Ethan Avendano MD Work Phone: [facility] 03-16-2025 04:39-0400 Heart rate 88 /min Dr. Ethan Avendano MD Work Phone: 4(188)397-629311 [place] [address] 03-16-2025 04:39-0400 Respiratory rate 18 /min Dr. Ethan Avendano MD Work Phone: 5(307)737-004296 [place] [address] 03-16-2025 04:39-0400 SaO2% (BldA) [Mass fraction] 97 % Dr. Ethan Avendano MD Work Phone: 7(268)124-567596 [place] [address] 03-16-2025 04:39-0400 Systolic blood pressure 116 mm[Hg] Dr. Ethan Avendano MD Work Phone: 3(450)394-386496 [place] [address] 03-15-2025 21:18-0400 Body height 170.[address] Ethan Avendano MD Work Phone: 0(861)405-960196 [place] [address] 03-15-2025 21:18-0400 Body mass index (BMI) [Ratio] 22.7 kg/m2 Dr. Ethan Avendano MD Work Phone: 1(003)853-294896 [place] [address] 03-15-2025 21:18-0400 Body weight 65.[address] Ethan Avendano MD Work Phone: 4(620)713-480196 [place] [address] 03-05-2025 11:26-0400 Body height 170.[address] Ethan Avendano MD Work Phone: 0(558)383-229796 [place] [address] 03-05-2025 11:26-0400 Body mass index (BMI) [Ratio] 22.7 kg/m2 Dr. Ethan Avendano MD Work Phone: 1(662)595-532596 [place] [address] 03-05-2025 11:26-0400 Body temperature 96.3 [degF] Dr. Ethan Avendano MD Work Phone: 2(855)642-536496 [place] [address] 03-05-2025 11:26-0400 Body weight 65.[address] Ethan Avendano MD Work Phone: 4(707)715-916396 [place] [address] 03-05-2025 11:26-0400 Diastolic blood pressure 62 mm[Hg] Dr. Ethan Avendano MD Work Phone: 0(713)664-928496 [place] [address] 03-05-2025 11:26-0400 Heart rate 97 /min Dr. Ethan Avendano MD Work Phone: [facility] 03-05-2025 11:26-0400 Respiratory rate 16 /min Dr. Ethan Avendano MD Work Phone: 1(147)291-656211 [place] [address] 03-05-2025 11:26-0400 SaO2% (BldA) [Mass fraction] 97 % Dr. Ethan Avendano MD Work Phone: 0(628)024-169811 [place] [address] 03-05-2025 11:26-0400 Systolic blood pressure 118 mm[Hg] Dr. Ethan Avendano MD Work Phone: 8(557)045-119696 [place] [address] 02-05-2025 09:47-0400 Body height 170.[address] Ethan Avendano MD Work Phone: 2(988)686-258596 [place] [address] 02-05-2025 09:47-0400 Body mass index (BMI) [Ratio] 24.1 kg/m2 Dr. Ethan Avendano MD Work Phone: 8(476)007-735011 [place] [address] 02-05-2025 09:47-0400 Body temperature 97.9 [degF] Dr. Ethan Avendano MD Work Phone: 2(153)687-126996 [place] [address] 02-05-2025 09:47-0400 Body weight 69.[address] Ethan Avendano MD Work Phone: 5(514)768-064996 [place] [address] 02-05-2025 09:47-0400 Diastolic blood pressure 62 mm[Hg] Dr. Ethan Avendano MD Work Phone: 0(272)225-664611 [place] [address] 02-05-2025 09:47-0400 Heart rate 86 /min Dr. Ethan Avendano MD Work Phone: 9(095)009-570811 [place] [address] 02-05-2025 09:47-0400 Respiratory rate 16 /min Dr. Ethan Avendano MD Work Phone: 0(060)007-759111 [place] [address] 02-05-2025 09:47-0400 SaO2% (BldA) [Mass fraction] 98 % Dr. Ethan Avendano MD Work Phone: 8(165)749-525311 [place] [address] 02-05-2025 09:47-0400 Systolic blood pressure 114 mm[Hg] Dr. Ethan Avendano MD Work Phone: [facility] 01-02-2025 10:58-0400 Body height 170.[address] Ethan Avendano MD Work Phone: 8(343)479-627796 [place] [address] 01-02-2025 10:58-0400 Body mass index (BMI) [Ratio] 23.8 kg/m2 Dr. Ethan Avendano MD Work Phone: 1(038)518-738796 [place] [address] 01-02-2025 10:58-0400 Body temperature 97.2 [degF] Dr. Ethan Avendano MD Work Phone: 4(464)483-866096 [place] [address] 01-02-2025 10:58-0400 Body weight 68.[address] Ethan Avendano MD Work Phone: 5(277)114-338496 [place] [address] 01-02-2025 10:58-0400 Diastolic blood pressure 76 mm[Hg] Dr. Ethan Avendano MD Work Phone: 1(207)012-207096 [place] [address] 01-02-2025 10:58-0400 Heart rate 82 /min Dr. Ethan Avendano MD Work Phone: 0(862)878-544296 [place] [address] 01-02-2025 10:58-0400 Respiratory rate 16 /min Dr. Ethan Avendano MD Work Phone: 0(580)102-877496 [place] [address] 01-02-2025 10:58-0400 SaO2% (BldA) [Mass fraction] 100 % Dr. Ethan Avendano MD Work Phone: 4(135)910-921096 [place] [address] 01-02-2025 10:58-0400 Systolic blood pressure 116 mm[Hg] Dr. Ethan Avendano MD Work Phone: 4(638)813-005196 [place] [address] 12-05-2024 11:09-0400 Body height 170.[address] Ethan Avendano MD Work Phone: 5(804)826-781296 [place] [address] 12-05-2024 11:09-0400 Body temperature 96.3 [degF] Dr. Ethan Avendano MD Work Phone: 6(095)891-878596 [place] [address] 12-05-2024 11:09-0400 Diastolic blood pressure 52 mm[Hg] Dr. Ethan Avendano MD Work Phone: [facility] 12-05-2024 11:09-0400 Heart rate 83 /min Dr. Ethan Avendano MD Work Phone: [facility] 12-05-2024 11:09-0400 Respiratory rate 16 /min Dr. Ethan Avendano MD Work Phone: [facility] 12-05-2024 11:09-0400 SaO2% (BldA) [Mass fraction] 100 % Dr. Ethan Avendano MD Work Phone: [facility] 12-05-2024 11:09-0400 Systolic blood pressure 107 mm[Hg] Dr. Ethan Avendano MD Work Phone: 9(577)389-833411 [place] [address] 11-28-2024 10:50-0400 Body mass index (BMI) [Ratio] 23.8 kg/m2 Dr. Ethan Avendano MD Work Phone: 5(901)211-392911 [place] [address] 11-28-2024 10:50-0400 Body weight 68.[address] Ethan Avendano MD Work Phone: [facility] 11-28-2024 10:50-0400 Diastolic blood pressure 62 mm[Hg] Dr. Ethan Avendano MD Work Phone: [facility] 11-28-2024 10:50-0400 Heart rate 78 /min Dr. Ethan Avendano MD Work Phone: [facility] 11-28-2024 10:50-0400 Respiratory rate 16 /min Dr. Ethan Avendano MD Work Phone: [facility] 11-28-2024 10:50-0400 Systolic blood pressure 107 mm[Hg] Dr. Ethan Avendano MD Work Phone: [facility] 11-07-2024 11:02-0500 Body height 170.[address] Ethan Avendano MD Work Phone: [facility] 11-07-2024 11:02-0500 Body mass index (BMI) [Ratio] 22.7 kg/m2 Dr. Ethan Avendano MD Work Phone: [facility] 11-07-2024 11:02-0500 Body temperature 97 [degF] Dr. Ethan Avendano MD Work Phone: 4(943)344-291811 [place] [address] 11-07-2024 11:02-0500 Body weight 65.[address] Ethan Avendano MD Work Phone: 2(719)715-415996 [place] [address] 11-07-2024 11:02-0500 Diastolic blood pressure 58 mm[Hg] Dr. Ethan Avendano MD Work Phone: 1(473)828-106796 [place] [address] 11-07-2024 11:02-0500 Heart rate 82 /min Dr. Ethan Avendano MD Work Phone: 5(215)033-341396 [place] [address] 11-07-2024 11:02-0500 Respiratory rate 16 /min Dr. Ethan Avendano MD Work Phone: 2(702)120-028696 [place] [address] 11-07-2024 11:02-0500 SaO2% (BldA) [Mass fraction] 99 % Dr. Ethan Avendano MD Work Phone: 8(449)020-015296 [place] [address] 11-07-2024 11:02-0500 Systolic blood pressure 121 mm[Hg] Dr. Ethan Avendano MD Work Phone: 8(711)409-749796 [place] [address] 10-10-2024 09:52-0500 Body mass index (BMI) [Ratio] 24.7 kg/m2 Dr. Ethan Avendano MD Work Phone: 3(849)288-647196 [place] [address] 10-10-2024 09:52-0500 Body temperature 97.5 [degF] Dr. Ethan Avendano MD Work Phone: 9(348)758-520796 [place] [address] 10-10-2024 09:52-0500 Body weight 71.[address] Ethan Avendano MD Work Phone: 3(097)841-652896 [place] [address] 10-10-2024 09:52-0500 Diastolic blood pressure 58 mm[Hg] Dr. Ethan Avendano MD Work Phone: 8(272)806-714196 [place] [address] 10-10-2024 09:52-0500 Heart rate 65 /min Dr. Ethan Avendano MD Work Phone: 6(309)003-290096 [place] [address] 10-10-2024 09:52-0500 Respiratory rate 16 /min Dr. Ethan Avendano MD Work Phone: [facility] 10-10-2024 09:52-0500 SaO2% (BldA) [Mass fraction] 99 % Dr. Ethan Avendano MD Work Phone: 1(745)613-554511 [place] [address] 10-10-2024 09:52-0500 Systolic blood pressure 127 mm[Hg] Dr. Ethan Avendano MD Work Phone: 7(477)280-909718 [address] 09-05-2024 12:02-0500 Body mass index (BMI) [Ratio] 24.3 kg/m2 Dr. Ethan Avendano MD Work Phone: 8(210)738-504896 [place] [address] 09-05-2024 12:02-0500 Body temperature 97.7 [degF] Dr. Ethan Avendano MD Work Phone: 5(402)871-125518 [address] 09-05-2024 12:02-0500 Body weight 70.[address] Ethan Avendano MD Work Phone: 7(430)097-975811 [place] [address] 09-05-2024 12:02-0500 Diastolic blood pressure 53 mm[Hg] Dr. Ethan Avendano MD Work Phone: 3(645)000-821318 [address] 09-05-2024 12:02-0500 Heart rate 62 /min Dr. Ethan Avendano MD Work Phone: 1(577)319-385918 [address] 09-05-2024 12:02-0500 Respiratory rate 16 /min Dr. Ethan Avendano MD Work Phone: 2(427)127-790711 [place] [address] 09-05-2024 12:02-0500 SaO2% (BldA) [Mass fraction] 100 % Dr. Ethan Avendano MD Work Phone: 5(310)706-475911 [place] [address] 09-05-2024 12:02-0500 Systolic blood pressure 136 mm[Hg] Dr. Ethan Avendano MD Work Phone: 5(066)266-433011 [place] [address] 08-23-2024 09:10-0500 Body temperature 98 [degF] Dr. Ethan Avendano MD Work Phone: 7(000)091-253711 [place] [address] 08-23-2024 09:10-0500 Diastolic blood pressure 64 mm[Hg] Dr. Ethan Avendano MD Work Phone: 8(735)669-625611 [place] [address] 08-23-2024 09:10-0500 Heart rate 74 /min Dr. Ethan Avendano MD Work Phone: 6(841)200-196696 [place] [address] 08-23-2024 09:10-0500 Respiratory rate 16 /min Dr. Ethan Avendano MD Work Phone: 7(095)272-902596 [place] [address] 08-23-2024 09:10-0500 SaO2% (BldA) [Mass fraction] 97 % Dr. Ethan Avendano MD Work Phone: 4(429)995-350596 [place] [address] 08-23-2024 09:10-0500 Systolic blood pressure 106 mm[Hg] Dr. Ethan Avendano MD Work Phone: 8(008)461-307496 [place] [address] 08-23-2024 07:29-0500 Body mass index (BMI) [Ratio] 24.3 kg/m2 Dr. Ethan Avendano MD Work Phone: 0(583)795-265996 [place] [address] 08-23-2024 07:29-0500 Body weight 70.[address] Ethan Avendano MD Work Phone: 2(597)772-367196 [place] [address] 08-08-2024 11:47-0500 Body mass index (BMI) [Ratio] 24.4 kg/m2 Dr. Ethan Avendano MD Work Phone: 7(893)632-417618 [address] 08-08-2024 11:47-0500 Body temperature 96.5 [degF] Dr. Ethan Avendano MD Work Phone: 5(423)155-299411 [place] [address] 08-08-2024 11:47-0500 Body weight 70.[address] Ethan Avendano MD Work Phone: 6(733)466-396296 [place] [address] 08-08-2024 11:47-0500 Diastolic blood pressure 56 mm[Hg] Dr. Ethan Avendano MD Work Phone: 8(019)027-653618 [address] 08-08-2024 11:47-0500 Heart rate 62 /min Dr. Ethan Avendano MD Work Phone: 8(916)771-889518 [address] 08-08-2024 11:47-0500 Respiratory rate 16 /min Dr. Ethan Avendano MD Work Phone: 0(053)560-497711 [place] [address] 08-08-2024 11:47-0500 SaO2% (BldA) [Mass fraction] 99 % Dr. Ethan Avendano MD Work Phone: 5(087)389-144918 [address] 08-08-2024 11:47-0500 Systolic blood pressure 132 mm[Hg] Dr. Ethan Avendano MD Work Phone: 4(115)466-786996 [place] [address] 07-11-2024 11:11-0500 Body mass index (BMI) [Ratio] 24.9 kg/m2 Dr. Ethan Avendano MD Work Phone: 0(296)285-611696 [place] [address] 07-11-2024 11:11-0500 Body temperature 97 [degF] Dr. Ethan Avendano MD Work Phone: 5(033)860-643596 [place] [address] 07-11-2024 11:11-0500 Body weight 72.[address] Ethan Avendano MD Work Phone: 0(902)094-871396 [place] [address] 07-11-2024 11:11-0500 Diastolic blood pressure 47 mm[Hg] Dr. Ethan Avendano MD Work Phone: 4(644)411-227596 [place] [address] 07-11-2024 11:11-0500 Heart rate 59 /min Dr. Ethan Avendano MD Work Phone: 0(753)488-061496 [place] [address] 07-11-2024 11:11-0500 Respiratory rate 16 /min Dr. Ethan Avendano MD Work Phone: 0(351)411-282796 [place] [address] 07-11-2024 11:11-0500 SaO2% (BldA) [Mass fraction] 99 % Dr. Ethan Avendano MD Work Phone: 1(495)893-903996 [place] [address] 07-11-2024 11:11-0500 Systolic blood pressure 130 mm[Hg] Dr. Ethan Avendano MD Work Phone: 8(915)221-500996 [place] [address] 01-04-2024 10:36-0400 Body height 170.[address] Ethan Avendano Work Phone: 6(910)042-489196 [place] [address] 01-04-2024 10:36-0400 Body temperature 97.8 [degF] Dr. Ethan Avendano Work Phone: [facility] 01-04-2024 10:36-0400 Diastolic blood pressure 50 mm[Hg] Dr. Ethan Avendano Work Phone: [facility] 01-04-2024 10:36-0400 Heart rate 61 /min Dr. Ethan Avendano Work Phone: [facility] 01-04-2024 10:36-0400 Respiratory rate 16 /min Dr. Ethan Avendano Work Phone: [facility] 01-04-2024 10:36-0400 SaO2% (BldA) [Mass fraction] 98 % Dr. Ethan Avendano Work Phone: [facility] 01-04-2024 10:36-0400 Systolic blood pressure 105 mm[Hg] Dr. Ethan Avendano Work Phone: [facility] 12-07-2023 10:46-0400 Body height 170.[address] Ethan Avendano Work Phone: [facility] 12-07-2023 10:46-0400 Body temperature 96.8 [degF] Dr. Ethan Avendano Work Phone: [facility] 12-07-2023 10:46-0400 Diastolic blood pressure 61 mm[Hg] Dr. Ethan Avendano Work Phone: [facility] 12-07-2023 10:46-0400 Heart rate 62 /min Dr. Ethan Avendano Work Phone: [facility] 12-07-2023 10:46-0400 Respiratory rate 16 /min Dr. Ethan Avendano Work Phone: [facility] 12-07-2023 10:46-0400 SaO2% (BldA) [Mass fraction] 100 % Dr. Ethan Avendano Work Phone: [facility] 12-07-2023 10:46-0400 Systolic blood pressure 116 mm[Hg] Dr. Ethan Avendano Work Phone: [facility] 11-09-2023 10:29-0500 Body height 170.[address] Ethan Avendano Work Phone: [facility] 11-09-2023 10:29-0500 Body temperature 97.9 [degF] Dr. Ethan Avendano Work Phone: [facility] 11-09-2023 10:29-0500 Diastolic blood pressure 62 mm[Hg] Dr. Ethan Avendano Work Phone: [facility] 11-09-2023 10:29-0500 Heart rate 73 /min Dr. Ethan Avendano Work Phone: [facility] 11-09-2023 10:29-0500 Respiratory rate 16 /min Dr. Ethan Avendano Work Phone: [facility] 11-09-2023 10:29-0500 Systolic blood pressure 117 mm[Hg] Dr. Ethan Avendano Work Phone: [facility] 10-10-2023 10:23-0500 Body mass index (BMI) [Ratio] 24.9 kg/m2 Dr. Ethan Avendano Work Phone: [facility] 10-10-2023 10:23-0500 Body weight 72.[address] Ethan Avendano Work Phone: [facility] 10-10-2023 10:23-0500 Diastolic blood pressure 73 mm[Hg] Dr. Ethan Avendano Work Phone: [facility] 10-10-2023 10:23-0500 Heart rate 63 /min Dr. Ethan Avendano Work Phone: [facility] 10-10-2023 10:23-0500 Respiratory rate 18 /min Dr. Ethan Avendano Work Phone: [facility] 10-10-2023 10:23-0500 SaO2% (BldA) [Mass fraction] 99 % Dr. Ethan Avendano Work Phone: [facility] 10-10-2023 10:23-0500 Systolic blood pressure 128 mm[Hg] Dr. Ethan Avendano Work Phone: [facility] 10-05-2023 10:05-0500 Body height 170.18 cm [facility] 10-05-2023 10:05-0500 Body temperature 98.1 [degF] [facility] 10-05-2023 10:05-0500 Diastolic blood pressure 45 mm[Hg] [facility] 10-05-2023 10:05-0500 Heart rate 63 /min [facility] 10-05-2023 10:05-0500 Respiratory rate 16 /min [facility] 10-05-2023 10:05-0500 SaO2% (BldA) [Mass fraction] 100 % [facility] 10-05-2023 10:05-0500 Systolic blood pressure 105 mm[Hg] [facility] 09-07-2023 10:25-0500 Body height 170.18 cm [facility] 09-07-2023 10:25-0500 Body mass index (BMI) [Ratio] 24.3 kg/m2 [facility] 09-07-2023 10:25-0500 Body temperature 97 [degF] [facility] 09-07-2023 10:25-0500 Body weight 70.3 kg [facility] 09-07-2023 10:25-0500 Diastolic blood pressure 51 mm[Hg] [facility] 09-07-2023 10:25-0500 Heart rate 64 /min [facility] 09-07-2023 10:25-0500 Respiratory rate 16 /min [facility] 09-07-2023 10:25-0500 SaO2% (BldA) [Mass fraction] 97 % [facility] 09-07-2023 10:25-0500 Systolic blood pressure 114 mm[Hg] [facility] 08-10-2023 11:01-0500 Body mass index (BMI) [Ratio] 24.3 kg/m2 [facility] 08-10-2023 11:01-0500 Body weight 70.3 kg [facility] 07-06-2023 10:12-0400 Body height 170.[address] Ethan Avendano Work Phone: [facility] 07-06-2023 10:12-0400 Body mass index (BMI) [Ratio] 24.1 kg/m2 Dr. Ethan Avendano Work Phone: [facility] 07-06-2023 10:12-0400 Body temperature 97.6 [degF] Dr. Ethan Avendano Work Phone: [facility] 07-06-2023 10:12-0400 Body weight 69.[address] Ethan Avendano Work Phone: 9(619)245-378611 [place] [address] 07-06-2023 10:12-0400 Diastolic blood pressure 58 mm[Hg] Dr. Ethan Avendano Work Phone: 1(290)747-024418 [address] 07-06-2023 10:12-0400 Heart rate 75 /min Dr. Ethan Avendano Work Phone: 0(409)498-103018 [address] 07-06-2023 10:12-0400 Respiratory rate 16 /min Dr. Ethan Avendano Work Phone: 7(681)279-333511 [place] [address] 07-06-2023 10:12-0400 SaO2% (BldA) [Mass fraction] 98 % Dr. Ethan Avendano Work Phone: 6(100)088-742918 [address] 07-06-2023 10:12-0400 Systolic blood pressure 130 mm[Hg] Dr. Ethan Avendano Work Phone: 3(200)865-016711 [place] [address] 06-08-2023 11:06-0400 Body temperature 97.1 [degF] Dr. Ethan Avendano Work Phone: [facility] 06-08-2023 11:06-0400 Diastolic blood pressure 56 mm[Hg] Dr. Ethan Avendano Work Phone: 4(277)358-540111 [place] [address] 06-08-2023 11:06-0400 Heart rate 65 /min Dr. Ethan Avendano Work Phone: [facility] 06-08-2023 11:06-0400 Respiratory rate 16 /min Dr. Ethan Avendano Work Phone: 0(814)647-747011 [place] [address] 06-08-2023 11:06-0400 SaO2% (BldA) [Mass fraction] 100 % Dr. Ethan Avendano Work Phone: [facility] 06-08-2023 11:06-0400 Systolic blood pressure 125 mm[Hg] Dr. Ethan Avendano Work Phone: [facility] 05-10-2023 11:11-0400 Body height 170.[address] Ethan Avendano Work Phone: 3(343)228-599818 [address] 05-10-2023 11:11-0400 Body mass index (BMI) [Ratio] 24.3 kg/m2 Dr. Ethan Avendano Work Phone: 8(828)548-494418 [address] 05-10-2023 11:11-0400 Body temperature 98.3 [degF] Dr. Ethan Avendano Work Phone: 4(407)195-334818 [address] 05-10-2023 11:11-0400 Body weight 70.[address] Ethan Avendano Work Phone: [facility] 05-10-2023 11:11-0400 Diastolic blood pressure 51 mm[Hg] Dr. Ethan Avendano Work Phone: 0(431)228-594318 [address] 05-10-2023 11:11-0400 Heart rate 73 /min Dr. Ethan Avendano Work Phone: 6(263)571-006511 [place] [address] 05-10-2023 11:11-0400 Respiratory rate 16 /min Dr. Ethan Avendano Work Phone: [facility] 05-10-2023 11:11-0400 SaO2% (BldA) [Mass fraction] 97 % Dr. Ethan Avendano Work Phone: [facility] 05-10-2023 11:11-0400 Systolic blood pressure 117 mm[Hg] Dr. Ethan Avendano Work Phone: [facility] 04-05-2023 11:03-0400 Body height 170.[address] Ethan Avendano Work Phone: [facility] 04-05-2023 11:03-0400 Body temperature 97.2 [degF] Dr. Ethan Avendano Work Phone: [facility] 04-05-2023 11:03-0400 Diastolic blood pressure 62 mm[Hg] Dr. Ethan Avendano Work Phone: [facility] 04-05-2023 11:03-0400 Heart rate 63 /min Dr. Ethan Avendano Work Phone: [facility] 04-05-2023 11:03-0400 Respiratory rate 16 /min Dr. Ethan Avendano Work Phone: [facility] 04-05-2023 11:03-0400 SaO2% (BldA) [Mass fraction] 98 % Dr. Ethan Avendano Work Phone: 2(961)039-284611 [place] [address] 04-05-2023 11:03-0400 Systolic blood pressure 122 mm[Hg] Dr. Ethan Avendano Work Phone: 7(691)297-907118 [address] 03-08-2023 12:58-0400 Body height 170.[address] Ethan Avendano Work Phone: [facility] 03-08-2023 12:58-0400 Body mass index (BMI) [Ratio] 23.9 kg/m2 Dr. Ethan Avendano Work Phone: [facility] 03-08-2023 12:58-0400 Body temperature 98.6 [degF] Dr. Ethan Avendano Work Phone: [facility] 03-08-2023 12:58-0400 Body weight 69.[address] Ethan Avendano Work Phone: [facility] 03-08-2023 12:58-0400 Diastolic blood pressure 53 mm[Hg] Dr. Ethan Avendano Work Phone: [facility] 03-08-2023 12:58-0400 Heart rate 71 /min Dr. Ethan Avendano Work Phone: [facility] 03-08-2023 12:58-0400 Respiratory rate 16 /min Dr. Ethan Avendano Work Phone: 1(058)746-836811 [place] [address] 03-08-2023 12:58-0400 SaO2% (BldA) [Mass fraction] 97 % Dr. Ethan Avendano Work Phone: [facility] 03-08-2023 12:58-0400 Systolic blood pressure 119 mm[Hg] Dr. Ethan Avendano Work Phone: 9(591)502-683511 [place] [address] 02-03-2023 11:03-0400 Body height 170.[address] Ethan Avendano Work Phone: 2(694)830-239611 [place] [address] 02-03-2023 11:03-0400 Body temperature 97 [degF] Dr. Ethan Avendano Work Phone: 7(215)719-791496 [place] [address] 02-03-2023 11:03-0400 Diastolic blood pressure 53 mm[Hg] Dr. Ethan Avendano Work Phone: 0(262)943-450596 [place] [address] 02-03-2023 11:03-0400 Heart rate 66 /min Dr. Ethan Avendano Work Phone: 0(137)262-188196 [place] [address] 02-03-2023 11:03-0400 Respiratory rate 16 /min Dr. Ethan Avendano Work Phone: 6(008)542-336018 [address] 02-03-2023 11:03-0400 SaO2% (BldA) [Mass fraction] 100 % Dr. Ethan Avendano Work Phone: 0(938)252-575618 [address] 02-03-2023 11:03-0400 Systolic blood pressure 117 mm[Hg] Dr. Ethan Avendano Work Phone: 1(407)856-028311 [place] [address] 02-01-2023 08:32-0400 Body mass index (BMI) [Ratio] 23.8 kg/m2 Dr. Ethan Avendano Work Phone: 7(109)909-690618 [address] 02-01-2023 08:32-0400 Body weight 68.[address] Ethan Avendano Work Phone: 8(525)358-004511 [place] [address] 02-01-2023 08:32-0400 Diastolic blood pressure 69 mm[Hg] Dr. Ethan Avendano Work Phone: 3(357)170-905811 [place] [address] 02-01-2023 08:32-0400 Heart rate 70 /min Dr. Ethan Avendano Work Phone: [facility] 02-01-2023 08:32-0400 Respiratory rate 18 /min Dr. Ethan Avendano Work Phone: [facility] 02-01-2023 08:32-0400 SaO2% (BldA) [Mass fraction] 99 % Dr. Ethan Avendano Work Phone: [facility] 02-01-2023 08:32-0400 Systolic blood pressure 117 mm[Hg] Dr. Ethan Avendano Work Phone: [facility] 01-05-2023 09:29-0400 Body height 170.18 cm [facility] 01-05-2023 09:29-0400 Body temperature 98.4 [degF] [facility] 01-05-2023 09:29-0400 Diastolic blood pressure 53 mm[Hg] [facility] 01-05-2023 09:29-0400 Heart rate 73 /min [facility] 01-05-2023 09:29-0400 Respiratory rate 16 /min [facility] 01-05-2023 09:29-0400 SaO2% (BldA) [Mass fraction] 99 % [facility] 01-05-2023 09:29-0400 Systolic blood pressure 114 mm[Hg] [facility] 12-29-2022 08:06-0400 Diastolic blood pressure 64 mm[Hg] Latisha Robles MD Work Phone: [facility] 12-29-2022 08:06-0400 Heart rate 99 /min Latisha Robles MD Work Phone: [facility] 12-29-2022 08:06-0400 SaO2% (BldA) [Mass fraction] 82 % Latisha Robles MD Work Phone: [facility] 12-29-2022 08:06-0400 Systolic blood pressure 121 mm[Hg] Latisha Robles MD Work Phone: [facility] 12-08-2022 11:20-0400 Body height 170.18 cm [facility] 12-08-2022 11:20-0400 Diastolic blood pressure 87 mm[Hg] [facility] 12-08-2022 11:20-0400 Heart rate 76 /min [facility] 12-08-2022 11:20-0400 Respiratory rate 16 /min [facility] 12-08-2022 11:20-0400 SaO2% (BldA) [Mass fraction] 100 % [facility] 12-08-2022 11:20-0400 Systolic blood pressure 130 mm[Hg] [facility] 11-04-2022 11:23-0500 Body height 170.18 cm [facility] 11-04-2022 11:23-0500 Body temperature 97.9 [degF] [facility] 11-04-2022 11:23-0500 Diastolic blood pressure 60 mm[Hg] [facility] 11-04-2022 11:23-0500 Heart rate 60 /min [facility] 11-04-2022 11:23-0500 Respiratory rate 16 /min [facility] 11-04-2022 11:23-0500 SaO2% (BldA) [Mass fraction] 100 % [facility] 11-04-2022 11:23-0500 Systolic blood pressure 123 mm[Hg] [facility] 10-07-2022 11:02-0500 Body height 170.18 cm [facility] 10-07-2022 11:02-0500 Body mass index (BMI) [Ratio] 24.3 kg/m2 [facility] 10-07-2022 11:02-0500 Body temperature 97.9 [degF] [facility] 10-07-2022 11:02-0500 Body weight 70.3 kg [facility] 10-07-2022 11:02-0500 Diastolic blood pressure 55 mm[Hg] [facility] 10-07-2022 11:02-0500 Heart rate 63 /min [facility] 10-07-2022 11:02-0500 Respiratory rate 16 /min [facility] 10-07-2022 11:02-0500 SaO2% (BldA) [Mass fraction] 100 % [facility] 10-07-2022 11:02-0500 Systolic blood pressure 132 mm[Hg] [facility] 09-09-2022 11:12-0500 Body height 170.18 cm [facility] 09-09-2022 11:12-0500 Body mass index (BMI) [Ratio] 24.5 kg/m2 [facility] 09-09-2022 11:12-0500 Body temperature 97.7 [degF] [facility] 09-09-2022 11:12-0500 Body weight 71.21 kg [facility] 09-09-2022 11:12-0500 Diastolic blood pressure 66 mm[Hg] [facility] 09-09-2022 11:12-0500 Heart rate 68 /min [facility] 09-09-2022 11:12-0500 Respiratory rate 16 /min [facility] 09-09-2022 11:12-0500 SaO2% (BldA) [Mass fraction] 99 % [facility] 09-09-2022 11:12-0500 Systolic blood pressure 149 mm[Hg] [facility] 08-04-2022 10:51-0500 Body height 170.[address] Ehtan Avendano Work Phone: [facility] Work Phone: 08-04-2022 10:51-0500 Body mass index (BMI) [Ratio] 23.8 kg/m2 Dr. Ethan Avendano Work Phone: [facility] 08-04-2022 10:51-0500 Body temperature 96.9 [degF] Dr. Ethan Avendano Work Phone: [facility] 08-04-2022 10:51-0500 Body weight 68.[address] Ethan Avendano Work Phone: [facility] 08-04-2022 10:51-0500 Diastolic blood pressure 59 mm[Hg] Dr. Ethan Avendano Work Phone: [facility] 08-04-2022 10:51-0500 Heart rate 72 /min Dr. Ethan Avendano Work Phone: [facility] 08-04-2022 10:51-0500 Respiratory rate 12 /min Dr. Ethan Avendano Work Phone: [facility] 08-04-2022 10:51-0500 SaO2% (BldA) [Mass fraction] 100 % Dr. Ethan Avendano Work Phone: [facility] 08-04-2022 10:51-0500 Systolic blood pressure 126 mm[Hg] Dr. Ethan Avendano Work Phone: [facility] 07-08-2022 11:09-0400 Body height 170.[address] Ethan Avendano Work Phone: [facility] Work Phone: 07-08-2022 11:09-0400 Body temperature 98.1 [degF] Dr. Ethan Avendano Work Phone: [facility] 07-08-2022 11:09-0400 Diastolic blood pressure 63 mm[Hg] Dr. Ethan Avendano Work Phone: [facility] 07-08-2022 11:09-0400 Heart rate 67 /min Dr. Ethan Avendano Work Phone: [facility] 07-08-2022 11:09-0400 Respiratory rate 16 /min Dr. Ethan Avendano Work Phone: [facility] 07-08-2022 11:09-0400 SaO2% (BldA) [Mass fraction] 99 % Dr. Ethan Avendano Work Phone: [facility] 07-08-2022 11:09-0400 Systolic blood pressure 135 mm[Hg] Dr. Ethan Avendano Work Phone: [facility] 06-10-2022 11:18-0400 Body height 170.[address] Ethan Avendano Work Phone: [facility] Work Phone: 06-10-2022 11:18-0400 Body mass index (BMI) [Ratio] 24.4 kg/m2 Dr. Ethan Avendano Work Phone: [facility] 06-10-2022 11:18-0400 Body temperature 98.2 [degF] Dr. Ethan Avnedano Work Phone: [facility] 06-10-2022 11:18-0400 Body weight 70.[address] Ethan Avendano Work Phone: [facility] 06-10-2022 11:18-0400 Diastolic blood pressure 59 mm[Hg] Dr. Ethan Avendano Work Phone: [facility] 06-10-2022 11:18-0400 Heart rate 66 /min Dr. Ethan Avendano Work Phone: [facility] 06-10-2022 11:18-0400 Respiratory rate 12 /min Dr. Ethan Avendano Work Phone: [facility] 06-10-2022 11:18-0400 SaO2% (BldA) [Mass fraction] 99 % Dr. Ethan Avendano Work Phone: [facility] 06-10-2022 11:18-0400 Systolic blood pressure 127 mm[Hg] Dr. Ethan Avendano Work Phone: [facility] 04-08-2022 11:31-0400 Body temperature 96.6 [degF] Dr. Ethan Avendano Work Phone: [facility] Work Phone: 04-08-2022 11:31-0400 Diastolic blood pressure 57 mm[Hg] [facility] Work Phone: [facility] [facility] Work Phone: 04-08-2022 11:31-0400 Heart rate 68 /min Dr. Ethan Avendano Work Phone: [facility] Work Phone: 04-08-2022 11:31-0400 SaO2% (BldA) [Mass fraction] 98 % Dr. Ethan Avendano Work Phone: [facility] Work Phone: 04-08-2022 11:31-0400 Systolic blood pressure 118 mm[Hg] Dr. Ethan Avendano Work Phone: [facility] Work Phone: 03-16-2022 11:23-0400 Body height 170.[address] Ethan Avendano Work Phone: [facility] Work Phone: 03-04-2022 11:24-0400 Body height 170.18 cm [facility] Work Phone: 03-04-2022 11:24-0400 Body mass index (BMI) [Ratio] 24.3 kg/m2 [facility] Work Phone: 03-04-2022 11:24-0400 Body temperature 98.4 [degF] [facility] Work Phone: 03-04-2022 11:24-0400 Body weight 70.3 kg [facility] Work Phone: 03-04-2022 11:24-0400 Diastolic blood pressure 54 mm[Hg] [facility] Work Phone: 03-04-2022 11:24-0400 Heart rate 65 /min [facility] Work Phone: 03-04-2022 11:24-0400 Respiratory rate 14 /min [facility] Work Phone: 03-04-2022 11:24-0400 SaO2% (BldA) [Mass fraction] 96 % [facility] Work Phone: 03-04-2022 11:24-0400 Systolic blood pressure 126 mm[Hg] [facility] Work Phone: 02-04-2022 10:46-0400 Body height 170.18 cm [facility] Work Phone: 02-04-2022 10:46-0400 Body mass index (BMI) [Ratio] 24.1 kg/m2 [facility] Work Phone: 02-04-2022 10:46-0400 Body temperature 98.2 [degF] [facility] Work Phone: 02-04-2022 10:46-0400 Body weight 69.85 kg [facility] Work Phone: 02-04-2022 10:46-0400 Diastolic blood pressure 48 mm[Hg] [facility] Work Phone: 02-04-2022 10:46-0400 Heart rate 60 /min [facility] Work Phone: 02-04-2022 10:46-0400 Respiratory rate 16 /min [facility] Work Phone: 02-04-2022 10:46-0400 SaO2% (BldA) [Mass fraction] 97 % [facility] Work Phone: 02-04-2022 10:46-0400 Systolic blood pressure 108 mm[Hg] [facility] Work Phone: 01-07-2022 11:04-0400 Body temperature 97.6 [degF] [facility] Work Phone: 01-07-2022 11:04-0400 Diastolic blood pressure 61 mm[Hg] [facility] Work Phone: 01-07-2022 11:04-0400 Heart rate 68 /min [facility] Work Phone: 01-07-2022 11:04-0400 Respiratory rate 16 /min [facility] Work Phone: 01-07-2022 11:04-0400 SaO2% (BldA) [Mass fraction] 96 % [facility] Work Phone: 01-07-2022 11:04-0400 Systolic blood pressure 128 mm[Hg] [facility] Work Phone: 12-03-2021 11:12-0400 Body height 170.[address] Ethan Avendano Work Phone: [facility] Work Phone: 12-03-2021 11:12-0400 Body mass index (BMI) [Ratio] 24.3 kg/m2 Dr. Ethan Avendano Work Phone: [facility] Work Phone: 12-03-2021 11:12-0400 Body temperature 98.1 [degF] Dr. Ethan Avendano Work Phone: [facility] Work Phone: 12-03-2021 11:12-0400 Body weight 70.[address] Ethan Avendano Work Phone: [facility] Work Phone: 12-03-2021 11:12-0400 Diastolic blood pressure 70 mm[Hg] Dr. Ethan Avendano Work Phone: [facility] Work Phone: 12-03-2021 11:12-0400 Heart rate 72 /min Dr. Ethan Avendano Work Phone: [facility] Work Phone: 12-03-2021 11:12-0400 Respiratory rate 16 /min Dr. Ethan Avendano Work Phone: [facility] Work Phone: 12-03-2021 11:12-0400 SaO2% (BldA) [Mass fraction] 97 % Dr. Ethan Avendano Work Phone: [facility] Work Phone: 12-03-2021 11:12-0400 Systolic blood pressure 142 mm[Hg] Dr. Ethan Avendano Work Phone: [facility] Work Phone: 11-05-2021 10:17-0500 Body mass index (BMI) [Ratio] 24.7 kg/m2 Dr. Ethan Avendano Work Phone: [facility] Work Phone: 11-05-2021 10:17-0500 Body temperature 98.4 [degF] Dr. Ethan Avendano Work Phone: [facility] Work Phone: 11-05-2021 10:17-0500 Body weight 71.[address] Ethan Avendano Work Phone: [facility] Work Phone: 11-05-2021 10:17-0500 Diastolic blood pressure 56 mm[Hg] Dr. Ethan Avendano Work Phone: [facility] Work Phone: 11-05-2021 10:17-0500 Heart rate 63 /min Dr. Ethan Avendano Work Phone: [facility] Work Phone: 11-05-2021 10:17-0500 Respiratory rate 16 /min Dr. Ethan Avendano Work Phone: [facility] Work Phone: 11-05-2021 10:17-0500 SaO2% (BldA) [Mass fraction] 100 % Dr. Ethan Avendano Work Phone: [facility] Work Phone: 11-05-2021 10:17-0500 Systolic blood pressure 120 mm[Hg] Dr. Ethan Avendano Work Phone: [facility] Work Phone: 10-08-2021 11:15-0500 Body temperature 96.6 [degF] Dr. Ethan Avendano Work Phone: [facility] Work Phone: 10-08-2021 11:15-0500 Diastolic blood pressure 57 mm[Hg] Dr. Ethan Avendano Work Phone: [facility] Work Phone: 10-08-2021 11:15-0500 Heart rate 62 /min Dr. Ethan Avendano Work Phone: [facility] Work Phone: 10-08-2021 11:15-0500 SaO2% (BldA) [Mass fraction] 98 % Dr. Ethan Avendano Work Phone: [facility] Work Phone: 10-08-2021 11:15-0500 Systolic blood pressure 123 mm[Hg] Dr. Ethan Avendano Work Phone: [facility] Work Phone: 10-08-2021 09:20-0500 Respiratory rate 16 /min Dr. Ethan Avendano Work Phone: [facility] Work Phone: 09-10-2021 10:35-0500 Body mass index (BMI) [Ratio] 24.7 kg/m2 Dr. Ethan Avendano Work Phone: [facility] Work Phone: 09-10-2021 10:35-0500 Body temperature 98.5 [degF] Dr. Ethan Avendano Work Phone: [facility] Work Phone: 09-10-2021 10:35-0500 Body weight 71.[address] Ethan Avendano Work Phone: [facility] Work Phone: 09-10-2021 10:35-0500 Diastolic blood pressure 65 mm[Hg] Dr. Ethan Avendano Work Phone: [facility] Work Phone: 09-10-2021 10:35-0500 Heart rate 56 /min Dr. Ethan Avendano Work Phone: [facility] Work Phone: 09-10-2021 10:35-0500 Respiratory rate 16 /min Dr. Ethan Avendano Work Phone: [facility] Work Phone: 09-10-2021 10:35-0500 SaO2% (BldA) [Mass fraction] 95 % Dr. Ethan Avendano Work Phone: [facility] Work Phone: 09-10-2021 10:35-0500 Systolic blood pressure 116 mm[Hg] Dr. Ethan Avendano Work Phone: [facility] Work Phone: 09-06-2021 08:47-0500 Body weight 72.[address] Ethan Avendano Work Phone: [facility] Work Phone: 09-06-2021 08:47-0500 Diastolic blood pressure 66 mm[Hg] Dr. Ethan Avendano Work Phone: [facility] Work Phone: 09-06-2021 08:47-0500 Heart rate 56 /min Dr. Ethan Avendano Work Phone: [facility] Work Phone: 09-06-2021 08:47-0500 Respiratory rate 18 /min Dr. Ethan Avendano Work Phone: [facility] Work Phone: 09-06-2021 08:47-0500 SaO2% (BldA) [Mass fraction] 100 % Dr. Ethan Avendano Work Phone: [facility] Work Phone: 09-06-2021 08:47-0500 Systolic blood pressure 150 mm[Hg] Dr. Ethan Avendano Work Phone: [facility] Work Phone: 02-16-2021 10:08-0400 Body mass index (BMI) [Ratio] 24.3 kg/m2 Dr. Ethan Avendano Work Phone: [facility] Work Phone: Encounters Encounter Date Encounter Type Care Provider Facility Start: 03-16-2025 End: 03-21-2025 Evaluation and management of inpatient Bhanu Hunter DO Work Phone: [facility] Surgical Progressive Care Unit PCU H6 Comment on above: Sigmoid volvulus (CM S/HCC) (HCC) (Primary Dx) Start: 03-15-2025 End: 03-16-2025 Emergency department patient visit Dr. Ethan Avendano MD Work Phone: -Emergency Department Work Phone: Start: 03-05-2025 End: 03-05-[address] Ethan Avendano MD -Medical Out Work Phone: Start: 03-05-2025 End: 03-05-[address] Ethan Avendano MD Work Phone: -Medical Out Start: 02-05-2025 End: 02-05-[address] Ethan Avendano MD -Medical Out Work Phone: Start: 02-05-2025 End: 02-05-[address] Ethan Avendano MD Work Phone: [facility] Work Phone: Start: 01-06-2025 End: 01-06-[address] Ethan Avendano MD Work Phone: [facility] Work Phone: Start: 01-06-2025 End: 01-06-2025 Discharged Recurring Sandra Joaquin PA -Physical Therapy Work Phone: Start: 01-02-2025 End: 01-02-[address] Ethan Avendano MD -Medical Out Work Phone: Start: 01-02-2025 End: 01-02-2025 ambulatory Ethan Avendano Facility:[facility] Start: 12-25-2024 End: 12-25-[address] Ethan Avendano MD -Laboratory, [place] Work Phone: Start: 12-25-2024 End: 12-25-2024 ambulatory Ethan Avendano Facility:[facility] Start: 12-19-2024 Registered Recurring Sandra Joaquin PA -Physical Therapy Work Phone: Start: 12-17-2024 End: 12-17-[address] Ethan Avendano MD Work Phone: [facility] Work Phone: Start: 12-17-2024 End: 12-17-[address] Demian Ramsay MD -Cardiovascular Services Work Phone: Start: 12-17-2024 End: 12-17-2024 ambulatory Ethan Avendano Facility:[facility] Start: 12-05-2024 End: 12-05-[address] Ethan Avendano MD -Medical Out Work Phone: Start: 12-05-2024 End: 12-05-[address] Ethan Avendano MD Work Phone: [facility] Work Phone: Start: 12-04-2024 Registered Recurring Sandra ALVAREZ -Physical Therapy Work Phone: Start: 11-28-2024 End: 11-28-[address] Demian Ramsay MD -[facility] Work Phone: Start: 11-28-2024 End: 11-28-2024 ambulatory Ethan Avendano [place] [place]: 11-07-2024 End: 11-07-[address] Ethan Avendano MD -Medical Out Work Phone: Start: 11-07-2024 End: 11-07-[address] Ethan Avendano MD Work Phone: [facility] Work Phone: Start: 10-29-2024 End: 10-29-[address] Ethan Avendano MD Work Phone: [facility] Work Phone: Start: 10-29-2024 End: 10-29-[address] [facility] Start: 10-29-2024 End: 10-29-2024 ambulatory Ethan Avendano Facility:[facility] Start: 10-10-2024 End: 10-10-[address] Ethan Avendano MD -Medical Out Work Phone: Start: 10-10-2024 End: 10-10-2024 ambulatory Ethan Avendano Facility:[facility] Start: 09-11-2024 End: 09-11-[address] Jameel Oseguera MD -Radiology, [facility] Work Phone: Start: 09-11-2024 End: 09-11-2024 ambulatory Ethan Avendano Facility:[facility] Start: 09-05-2024 End: 09-05-[address] Ethan Avendano MD -Medical Out Work Phone: Start: 09-05-2024 End: 09-05-2024 ambulatory Ethan Avendano Facility:[facility] Start: 08-23-2024 Non-patient / Non-visit Dr. Matilde Oseguera MD -[facility] Start: 08-23-2024 End: 08-23-2024 Admission to same day surgery center Dr. Jameel Oseguera MD -Endoscopy Work Phone: Start: 08-23-2024 End: 08-23-2024 ambulatory Ethan Avendano Facility:[facility] Start: 08-08-2024 End: 08-08-[address] Ethan Avendano MD -Medical Out Work Phone: Start: 08-08-2024 End: 08-08-2024 myke Avendano Facility:[facility] Start: 07-11-2024 End: 07-11-[address] Ethan Avendano MD -Medical Out Work Phone: Start: 07-11-2024 End: 07-11-2024 ambulatory Ethan Avendano Facility:[facility] Start: 07-10-2024 End: 07-10-2024 ambulatory Ethan Avendano [place] [place]: 06-06-2024 End: 06-06-2024 ambulatory Ethan Avendano Facility:[facility] Start: 05-09-2024 End: 05-09-2024 ambulatory Ethan Avendano Facility:[facility] Start: 04-05-2024 End: 04-05-2024 ambulatory Ethan Avendano Facility:[facility] Start: 03-28-2024 End: 03-28-2024 ambulatory Blaine Lee Facility:[facility] Start: 01-04-2024 End: 01-04-[address] Ethan Avendano Work Phone: [facility] Work Phone: Start: 01-04-2024 End: 01-04-[address] Ethan Avendano Work Phone: [facility]-Medical Out Work Phone: Start: 12-07-2023 End: 12-07-[address] Ethan Avendano Work Phone: [facility] Work Phone: Start: 12-07-2023 End: 12-07-[address] Ethan Avendano Work Phone: [facility]-Medical Out Work Phone: Start: 11-16-2023 End: 11-16-[address] Ethan Avendano Work Phone: [facility] Work Phone: Start: 11-16-2023 End: 11-16-[address] Ethan Avendano Work Phone: [facility] Start: 11-09-2023 End: 11-09-[address] Ethan Avendano Work Phone: [facility] Work Phone: Start: 11-09-2023 End: 11-09-[address] Ethan Avendano Work Phone: [facility]-Medical Out Work Phone: Start: 10-10-2023 End: 10-10-[address] Ethan Avendano Work Phone: [facility] Work Phone: Start: 10-06-2023 End: 10-06-2023 ambulatory FLORENCE EUGENE Facility:[id number] Start: 10-05-2023 End: 10-05-2023 ambulatory [facility] Work Phone: Start: 10-05-2023 End: 10-05-2023 [facility] Start: 09-07-2023 End: 09-07-2023 ambulatory [facility] Work Phone: Start: 09-07-2023 End: 09-07-2023 [facility] Start: 08-10-2023 End: 08-10-2023 [facility] Start: 07-06-2023 End: 07-06-[address] Ethan Avendano Work Phone: [facility] Work Phone: Start: 07-06-2023 End: 07-06-[address] [facility]end[facility] Start: 06-08-2023 End: 06-08-[address] [facility]end[facility] Start: 05-10-2023 End: 05-10-[address] Ethan Avendano Work Phone: [facility] Work Phone: Start: 05-10-2023 End: 05-10-[address] [facility]endano [facility] Start: 05-05-2023 Non-patient / Non-visit Dr. Abdulkadir Avendano Work Phone: [facility] Start: 05-05-2023 End: 05-05-[address] Ethan Avendano Work Phone: [facility] Work Phone: Start: 05-05-2023 End: 05-05-[address] Ethan Avendano Work Phone: [facility]-Cardiovascula r Services Work Phone: Start: 04-05-2023 End: 04-05-[address] Ethan Avendano Work Phone: [facility] Work Phone: Start: 04-05-2023 End: 04-05-[address] Ethan Avendano Work Phone: [facility]-Medical Out Work Phone: Start: 03-23-2023 End: 03-23-[address] Ethan Avendano Work Phone: [facility]-Laboratory Work Phone: Start: 03-08-2023 End: 03-08-[address] Ethan Avendano Work Phone: [facility] Work Phone: Start: 03-08-2023 End: 03-08-[address] Ethan Avendano Work Phone: [facility]-Medical Out Work Phone: Start: 02-03-2023 End: 02-03-[address] Ethan Avendano Work Phone: [facility] Work Phone: Start: 02-03-2023 End: 02-03-[address] Ethan Avendano Work Phone: [facility]-Medical Out Start: 02-01-2023 End: 02-01-[address] Ethan Avendano Work Phone: [facility] Work Phone: Start: 02-01-2023 End: 02-01-[address] Ethan Avendano Work Phone: [facility]-Laboratory Start: 02-01-2023 End: 02-01-[address] Ethan Avendano Work Phone: [facility] Start: 01-05-2023 End: 01-05-2023 ambulatory [facility] Work Phone: Start: 01-05-2023 End: 01-05-2023 Patient encounter procedure [facility]-Medical Out Start: 12-29-2022 End: 12-29-2022 ambulatory LACY GOLDBERG Facility:[facility] Start: 12-29-2022 End: 12-29-2022 Patient encounter procedure Latisha Robles MD Work Phone: Neurology Comment on above: Parkinson disease (H CC) (Primary Dx) Start: 12-08-2022 End: 12-08-2022 ambulatory [facility] Work Phone: Start: 12-08-2022 End: 12-08-2022 Patient encounter procedure [facility]-Medical Out Start: 11-16-2022 End: 11-16-2022 ambulatory [facility] Work Phone: Start: 11-16-2022 End: 11-16-2022 Discharged Recurring [facility]-Physical Therapy Start: 11-04-2022 End: 11-04-2022 Patient encounter procedure [facility]-Medical Out Start: 10-07-2022 End: 10-07-2022 ambulatory [facility] Work Phone: Start: 10-07-2022 End: 10-07-2022 Patient encounter procedure [facility]-Medical Out Start: 09-19-2022 End: 09-19-2022 ambulatory [facility] Work Phone: Start: 09-19-2022 End: 09-19-2022 Patient encounter procedure [facility]-MRI - [facility] Start: 09-09-2022 End: 09-09-2022 ambulatory [facility] Work Phone: Start: 09-09-2022 End: 09-09-2022 Patient encounter procedure [facility]-Medical Out Start: 08-24-2022 End: 08-24-2022 ambulatory [facility] Work Phone: Start: 08-24-2022 End: 08-24-2022 Patient encounter procedure [facility]-Laboratory, [place] Start: 08-16-2022 End: 08-16-2022 ambulatory Florence A Jeff OT/L [facility] Start: 08-16-2022 End: 08-16-2022 Coordination of care plan Florence A Jeff OT/[facility] [place] Comment on above: Parkinson disease (H CC) (Primary Dx); Abnormality of gait and mobility; Abnormal coordination; Irregular eye movements Start: 08-15-2022 End: 08-15-2022 ambulatory [facility] Work Phone: Start: 08-15-2022 End: 08-15-[address] Ethan Avendano Work Phone: [facility]-Laboratory, Specimen Start: 08-15-2022 End: 08-15-2022 [facility] Start: 08-15-2022 End: 08-15-2022 Coordination of care plan Florence A Jeff OT/[facility] [place] Comment on above: Parkinson disease (H CC) (Primary Dx); Abnormality of gait and mobility; Abnormal coordination; Irregular eye movements Start: 08-11-2022 End: 08-11-[address] Ethan Avendano Work Phone: [facility] Work Phone: Start: 08-11-2022 End: 08-11-[address] Ethan Avendano Work Phone: [facility] Start: 08-04-2022 End: 08-04-2022 ambulatory [facility] Work Phone: Start: 08-04-2022 End: 08-04-[address] Ethan Avendano Work Phone: [facility]-Medical Out Start: 07-15-2022 End: 07-15-[address] Ethan Avendano Work Phone: [facility] Work Phone: Start: 07-15-2022 End: 07-15-[address] Ethan Avendano Work Phone: [facility] Start: 07-08-2022 End: 07-08-[address] Ethan Avendano Work Phone: [facility] Work Phone: Start: 07-08-2022 End: 07-08-[address] [facility] Start: 07-07-2022 End: 07-07-2022 Patient encounter procedure Dr. Ethan Avendano Work Phone: [facility] Start: 07-04-2022 End: 07-04-[address] Ethan Avendano Work Phone: [facility] Start: 07-04-[address] Ethan Avendano Work Phone: [facility] Start: 06-13-[address] Ethan Avendano Work Phone: [facility] Start: 06-10-2022 End: 06-10-[address] Ethan Avendano Work Phone: [facility] Start: 06-07-2022 End: 06-07-[address] Ethan Avendano Work Phone: [facility] Work Phone: Start: 06-07-2022 End: 06-07-[address] Ethan Avendano Work Phone: [facility] Start: 05-06-2022 End: 05-06-[address] Ethan Avendano Work Phone: [facility] Work Phone: Start: 05-06-2022 End: 05-06-[address] [facility] Start: 05-04-[address] Ethan Avendano Work Phone: [facility] Start: 04-20-2022 Non-patient / Non-visit Dr. Abdulkadir Avendano Work Phone: [facility] Start: 04-20-2022 End: 04-20-[address] Ethan Avendano Work Phone: [facility] Start: 04-08-2022 End: 04-08-[address] [facility]end[facility] Start: 03-16-2022 End: 03-16-[address] Ethan Avendano Work Phone: [facility] Start: 03-04-2022 End: 03-04-2022 [facility] Start: 02-04-2022 End: 02-04-2022 Patient encounter procedure [facility] Start: 01-07-2022 End: 01-07-2022 [facility] Start: 12-03-2021 End: 12-03-[address] Ethan [facility]endano [facility] Phone[facility] Start: 12-02-2021 End: 12-02-[address] Ethan Avendano Work Phone: [facility] Start: 11-05-2021 End: 11-05-[address] [facility]endano [facility] Phone[facility] Start: 10-08-2021 End: 10-08-[address] Ethan [facility]endano [facility] Phone[facility] Start: 09-10-2021 End: 09-10-[address] Ethan [facility]endano [facility] Phone[facility] Start: 09-06-2021 End: 09-06-[address] Ethan Avendano Work Phone: [facility] Start: 08-14-2017 Ambulatory Isaac Peterson [id number] Procedures Date Procedure Procedure Detail Performing Clinician Start: 03-21-2025 Basic metabolic pane l calcium total Yasmin Barry MD Work Phone: Start: 03-20-2025 Basic metabolic pane l calcium total Yasmin Barry MD Work Phone: Start: 03-19-2025 Basic metabolic pane l calcium total Yasmin Barry MD Work Phone: Start: 03-19-2025 Manual Differential panel - Blood Yasmin Barry MD Work Phone: Start: 03-18-2025 End: 03-18-2025 Laparoscopy colectomy partial w/anastomosis Bronson Jarrett MD Work Phone: Start: 03-18-2025 Basic metabolic pane l calcium total Yasmin Barry MD Work Phone: Start: 03-17-2025 Radiologic exam abdo men 1 view Yasmin Barry MD Work Phone: Start: 03-17-2025 Basic metabolic pane l calcium total Yasmin Barry MD Work Phone: Start: 03-16-2025 Radiologic exam abdo men 2 views Yasmin Baryr MD Work Phone: Start: 03-16-2025 Ct abdomen & pelvis w/contrast material Jameel Barraza DO Work Phone: Start: 03-16-2025 Comprehensive metabo lic panel Jameel Barraza DO Work Phone: Start: 03-16-2025 Urnls dip stick/tabl et reagent auto microscopy Dr. Ethan Avendano MD Work Phone: Start: 03-15-2025 Computed tomography of abdomen and pelvis with intravenous contrast Dr. Ethan Avendano MD Work Phone: Start: 03-15-[address] Ethan Avendano MD Work Phone: Start: 10-29-[address] Ethan [...] Dr. Demian Ramsay MD Comment on above: NIU-KKA-Snkghd RCA w / 2.5 x 12 mm Elunir Stent and MILANA-Mid RCA w/ 3.0 x 33 mm Elunir Stent 03/11/19; PCI-MILANA- Mid LAD w/ 3.0 x 16 mm Synergy MR Stent 03/21/2019 Start: 09-26-2008 Colonoscopy Florence villanueva OT/L Plan of Treatment Date Care Activity Detail Author Start: 09-11-2029 DTaP/Tdap/Td Vaccine s (5 - Td or Tdap) DTaP/Tdap/Td Vaccines (5 - Td or Tdap) [facility] Start: 06-02-2027 Screening for malign ant neoplasm of colon [facility] Start: 06-25-2026 Urine microalbumin profile DTAP,TDAP,TD (4 - Td or Tdap) [facility] Start: 05-05-2025 Influenza vaccination Influenza Vacc ine (#1) [facility] Start: 04-09-2025 End: 04-09-2025 Patient encounter procedure 04/09/2025 10:15 AM EDT Office Visit [facility] [address] [place] [address] Bronson Jarrett MD [address] [place], [place] [id number] [facility] Start: 03-16-2025 [facility] Start: 01-02-2025 Iv infusion therapy prophylaxis/dx ea hour THER/PROPH/DIAG IV INF [facility] Start: 01-02-2025 Iv infusion therapy/prophylaxis /dx 1st to 1 hr THER/PROPH/DIAG IV INF [facility] Start: 12-05-2024 Iv infusion therapy prophylaxis/dx ea hour THER/PROPH/DIAG IV INF [facility] Start: 12-05-2024 Iv infusion therapy/prophylaxis /dx 1st to 1 hr THER/PROPH/DIAG IV INF [facility] Start: 10-10-2024 Iv infusion therapy prophylaxis/dx ea hour THER/PROPH/DIAG IV INF [facility] Start: 10-10-2024 Iv infusion therapy/prophylaxis /dx 1st to 1 hr THER/PROPH/DIAG IV INF [facility] Start: 08-23-[address] [facility] Start: 08-20-2024 COVID-19 Vaccine ( season) COVID-19 Vaccine ( season) [facility] Start: 12-07-2023 Iv infusion therapy prophylaxis/dx ea hour THER/PROPH/DIAG IV INF [facility] Start: 12-07-2023 Iv infusion therapy/prophylaxis /dx 1st to 1 hr THER/PROPH/DIAG IV INF [facility] Start: 09-07-2023 Iv infusion therapy prophylaxis/dx ea hour THER/PROPH/DIAG IV INF [facility] Start: 09-07-2023 Iv infusion therapy/prophylaxis /dx 1st to 1 hr THER/PROPH/DIAG IV INF [facility] Start: 05-10-2023 Iv infusion therapy prophylaxis/dx ea hour THER/PROPH/DIAG IV INF [facility] Start: 05-10-2023 Iv infusion therapy/prophylaxis /dx 1st to 1 hr THER/PROPH/DIAG IV INF [facility] Start: 04-05-2023 Iv infusion therapy prophylaxis/dx ea hour THER/PROPH/DIAG IV INF [facility] Start: 04-05-2023 Iv infusion therapy/prophylaxis /dx 1st to 1 hr THER/PROPH/DIAG IV INF [facility] Start: 03-08-2023 Iv infusion therapy prophylaxis/dx ea hour THER/PROPH/DIAG IV INF [facility] Start: 03-08-2023 Iv infusion therapy/prophylaxis /dx 1st to 1 hr THER/PROPH/DIAG IV INF [facility] Start: 02-03-2023 Iv infusion therapy prophylaxis/dx ea hour THER/PROPH/DIAG IV INF [facility] Start: 02-03-2023 Iv infusion therapy/prophylaxis /dx 1st to 1 hr THER/PROPH/DIAG IV INF [facility] Start: 01-05-2023 Iv infusion therapy prophylaxis/dx ea hour THER/PROPH/DIAG IV INF [facility] Start: 01-05-2023 Iv infusion therapy/prophylaxis /dx 1st to 1 hr THER/PROPH/DIAG IV INF [facility] Start: 12-08-2022 Iv infusion therapy prophylaxis/dx ea hour THER/PROPH/DIAG IV INF [facility] Start: 12-08-2022 Iv infusion therapy/prophylaxis /dx 1st to 1 hr THER/PROPH/DIAG IV INF [facility] Start: 11-04-2022 Iv infusion therapy prophylaxis/dx ea hour THER/PROPH/DIAG IV INF [facility] Start: 11-04-2022 Iv infusion therapy/prophylaxis /dx 1st to 1 hr THER/PROPH/DIAG IV INF [facility] Start: 10-07-2022 Iv infusion therapy prophylaxis/dx ea hour THER/PROPH/DIAG IV INF [facility] Start: 10-07-2022 Iv infusion therapy/prophylaxis /dx 1st to 1 hr THER/PROPH/DIAG IV INF [facility] Start: 09-09-2022 Iv infusion therapy prophylaxis/dx ea hour THER/PROPH/DIAG IV INF [facility] Start: 09-09-2022 Iv infusion therapy/prophylaxis /dx 1st to 1 hr THER/PROPH/DIAG IV INF [facility] Start: 09-04-2022 ADVANCE DIRECTIVE DISCUSSION ADVANCE DIRECTIVE DISCUSSION [facility] Start: 09-04-2022 DEPRESSION ASSESSMENT DEPRESSION ASS ESSMENT [facility] Start: 08-04-2022 Iv infusion therapy prophylaxis/dx ea hour THER/PROPH/DIAG IV INF [facility] Work Phone: Start: 08-04-2022 Iv infusion therapy/prophylaxis /dx 1st to 1 hr THER/PROPH/DIAG IV INF [facility] Work Phone: Start: 07-08-2022 Iv infusion therapy prophylaxis/dx ea hour THER/PROPH/DIAG IV INF [facility] Work Phone: Start: 07-08-2022 Iv infusion therapy/prophylaxis /dx 1st to 1 hr THER/PROPH/DIAG IV INF [facility] Work Phone: Start: 05-06-2022 Iv infusion therapy prophylaxis/dx ea hour THER/PROPH/DIAG IV INF [facility] Work Phone: Start: 05-06-2022 Iv infusion therapy/prophylaxis /dx 1st to 1 hr THER/PROPH/DIAG IV INF [facility] Work Phone: Start: 04-08-2022 Iv infusion therapy prophylaxis/dx ea hour THER/PROPH/DIAG IV INF [facility] Work Phone: Start: 04-08-2022 Iv infusion therapy/prophylaxis /dx 1st to 1 hr THER/PROPH/DIAG IV INF [facility] Work Phone: Start: 03-04-2022 Iv infusion therapy prophylaxis/dx ea hour THER/PROPH/DIAG IV INF [facility] Work Phone: Start: 03-04-2022 Iv infusion therapy/prophylaxis /dx 1st to 1 hr THER/PROPH/DIAG IV INF [facility] Work Phone: Start: 02-04-2022 Iv infusion therapy prophylaxis/dx ea hour THER/PROPH/DIAG IV INF [facility] Work Phone: Start: 02-04-2022 Iv infusion therapy/prophylaxis /dx 1st to 1 hr THER/PROPH/DIAG IV INF [facility] Work Phone: Start: 12-03-2021 Iv infusion therapy prophylaxis/dx ea hour THER/PROPH/DIAG IV INF [facility] Work Phone: Start: 12-03-2021 Iv infusion therapy/prophylaxis /dx 1st to 1 hr THER/PROPH/DIAG IV INF [facility] Work Phone: Start: 09-04-2021 ADVANCE DIRECTIVE DISCUSSION ADVANCE DIRECTIVE DISCUSSION [facility] Start: 09-04-2021 DEPRESSION ASSESSMENT DEPRESSION ASS ESSMENT [facility] Start: 06-23-2021 LIPID SCREEN LIPID SCREEN [facility] Start: 06-23-2019 DIABETES SCREEN DIABETES SCREEN [facility] Start: 06-13-2019 PNEUMOCOCCAL: 65+ (4 - PPSV23 if available, else PCV20) PNEUMOCOCCAL: 65+ (4 - PPSV23 if available, else PCV20) [facility] Start: 09-26-2018 Colonoscopy COLONOSCOPY [facility] Start: 09-26-2018 COLORECTAL CANCER SCREENING COLORECTAL CANCER SCREENING [facility] Start: 07-20-2014 FECAL OCCULT BLOOD FECAL OCCULT BLOO D [facility] Start: 1997 COLOGUARD (FIT-DNA) COLOGUARD (FIT-D NA) [facility] Start: [address] COLONOGRAPHY [facility] Start: 1997 SIGMOIDOSCOPY SIGMOIDOSCOPY [facility] Start: 1971 SHINGRIX VACCINE (1 of 2) SHINGRIX VACCINE (1 of 2) [facility] Start: 1970 HEPATITIS C SCREENING HEPATITIS C [facility] Start: 1970 Hepatitis C screening Hepatitis C [facility] Start: 1964 Depression Monitoring Depression Mon itoring [facility] Start: 1952 Lipid panel Lipid Panel [facility] Start: 1950 Medicare Annual Well ness (AWV) Medicare Annual Wellness (AWV) [facility] Start: 1950 Screening for malign ant neoplasm of colon [facility] Patient referral [facility] Work Phone: Tissue exam [facility] Sy stem Work Phone: Comment on above: Release Upon Jamesin g for 1 Occurrences starting 03/18/2025, 1 completed Carotid arteries [facility] Carotid arteries [facility] Immunizations Immunization Date Immunization Notes Care Provider [facility] 06-25-2024 influenza virus vacc ine, unspecified formulation Bhanu Urbankola DO Work Phone: [facility] 12-09-2020 Covid (Moderna) Dr. Ethan Hagan Work Phone: [facility] 11-11-2020 Covid (Moderna) Dr. Ethan Hagan Work Phone: [facility] 06-25-2016 influenza, injectabl e, quadrivalent, contains preservative Florence Eugene OT/L [facility] 06-25-2016 tetanus toxoid, redu manas diphtheria toxoid, and acellular pertussis vaccine, adsorbed Florence Eugene OT/L [facility] 07-17-2015 pneumococcal conjuga te vaccine, 13 valent Florence Eugene OT/L [facility] Work Phone: 06-18-2015 influenza, high dose seasonal, preservative-free Florence Eugene OT/L [facility] 06-13-2014 influenza, seasonal, injectable Florence Eugene OT/L [facility] 06-13-2014 pneumococcal polysaccharide vaccine, 23 valent Florence Hopek OT/L [facility] 07-11-2013 influenza virus vacc ine, unspecified formulation Florence Hopek OT/L [facility] 07-14-2009 novel influenza-H1N1 -09, all formulations Florence Hopek OT/L [facility] Work Phone: 05-04-2007 pneumococcal polysaccharide vaccine, 23 valent Florence Sainzinik OT/L [facility] Work Phone: 05-04-2007 tetanus toxoid, redu manas diphtheria toxoid, and acellular pertussis vaccine, adsorbed Florence Hopek OT/L [facility] Work Phone: 05-04-1994 diphtheria and tetan us toxoids, adsorbed for pediatric use Florence Hopek OT/L [facility] Work Phone: Payers Date Payer Category Payer Medicare supplementa l policy (as second payer) [facility] MEDICARE SUPPLEMENT [id number] 2024 Self-pay [id number] 2022 Unknown [facility] MEDICARE SUPPLEMENT [id number] 2022-Present [phone] [address] [place] [address] Indemnity [id number] 2022 Unknown [id number] 2017 Medicare [id number] 2017 Medicare [id number] Medicare [id number] Unknown [id number] .462 Unknown [id number] [id number] .462 Unknown [id number] [id number] .462 Unknown [id number] [id number] .462 Unknown [id number] 2.16.840.1.156516.3.579.2 .462 Unknown [id number] 2.16.840.1.790310.3.579.2 .462 Unknown [id number] 2.16.840.1.467260.3.579.2 .462 Unknown [id number] 2.16.840.1.225507.3.579.2 .462 Unknown [id number] 2.16.840.1.922258.3.579.2 .462 Unknown [id number] 2.16.840.1.823872.3.579.2 .462 Unknown [id number] 2.16.840.1.105550.3.579.2 .462 Unknown [id number] 2.16.840.1.958615.3.579.2 .462 Unknown [id number] 2.16.840.1.095476.3.579.2 .462 Unknown [id number] 2.16.840.1.824782.3.579.2 .462 Unknown [id number] 2.16.840.1.182306.3.579.2 .462 Unknown [id number] 2.16.840.1.311050.3.579.2 .462 Unknown [id number] 2.840.1.090297.3.579.2 .462 Unknown [id number] 2.16840.1.793617.3.579.2 .462 Unknown [id number] [id number] .462 Unknown [id number] 2.16840.1.199825.3.579.2 .462 Unknown [id number] 2.16840.1.560826.3.579.2 .462 Unknown [id number] 2.840.1.791522.3.579.2 .462 Unknown [id number] [id number] .462 Social History Date Type Detail Facility Start: 09-06-2021 End: 10-10-2023 Tobacco smoking status NHIS Unknown if ever smoked [facility] Start: 12-12-2020 Spouse/ Significant Other [facility] Start: 12-24-2020 Non-smoker [facility] Start: 1950 Sex Assigned At Male [facility] Start: 08-27-2021 End: 03-15-2025 Tobacco smoking status NHIS Never smoked tobacco [facility] Start: 08-27-2021 End: 12-29-2022 Tobacco use and exposure Smokeless tobacco non-user [facility] Start: 04-20-2022 End: 12-29-2022 Alcohol intake Current non-drinker of alcohol (finding) [facility] Start: 1950 Sex Assigned At Not on file [facility] Start: 11-08-2024 End: 03-16-2025 Sex Male (finding) [facility] Start: 03-16-2025 History of Social function [facility] Start: 03-16-2025 Alcohol Use Disorder Identification Test - Consumption [AUDIT-C] [facility] How often to you hav e a drink containing alcohol? Never [facility] How many standard dr inks containing alcohol do you have on a typical day? Patient does not drink [facility] Goals Date Patient Goal Desired Activity /State Functional Status Date Assessment Result Facility 07-13-2025 Total score [AUDIT-C] 0 07/13/20 25 6:27 AM EDT Martha Park, JOSÉ LUIS [facility] Mental Status Date Assessment Result Facility 03-05-2025 Cognitive function Voice/Name [facility] Work Phone: 02-05-2025 Cognitive function Voice/Name [facility] Work Phone: 01-02-2025 Cognitive function Voice/Name [facility] Work Phone: 12-05-2024 Cognitive function Awake;Alert;A ppropriate;Follow s Commands [facility] Work Phone: 11-07-2024 Cognitive function Voice/Name [facility] Work Phone: 10-10-2024 Cognitive function Voice/Name [facility] Work Phone: 09-05-2024 Cognitive function Voice/Name [facility] Work Phone: 08-23-2024 Cognitive function Level Of Cons ciousness Follows Commands;Drowsy [facility] Work Phone: 08-23-2024 Cognitive function Voice/Name [facility] Work Phone: 07-11-2024 Cognitive function Awake;Alert;A ppropriate;Follow s Commands [facility] Work Phone: 01-04-2024 Cognitive function Awake;Alert;A ppropriate;Follow s Commands [facility] Work Phone: 12-07-2023 Cognitive function Awake;Alert;A ppropriate;Follow s Commands [facility] Work Phone: 11-09-2023 Cognitive function Awake;Alert;A ppropriate;Follow s Commands [facility] Work Phone: 10-05-2023 Cognitive function Awake;Alert;A ppropriate;Follow s Commands [facility] Work Phone: 09-07-2023 Cognitive function Awake;Alert;A ppropriate;Follow s Commands [facility] Work Phone: 08-10-2023 Cognitive function Voice/Name [facility] Work Phone: 07-06-2023 Cognitive function Voice/Name [facility] Work Phone: 06-08-2023 Cognitive function Awake;Alert;A ppropriate;Follow s Commands [facility] Work Phone: 05-10-2023 Cognitive function Voice/Name [facility] Work Phone: 04-05-2023 Cognitive function Voice/Name [facility] Work Phone: 03-08-2023 Cognitive function Voice/Name [facility] Work Phone: 02-03-2023 Cognitive function Awake;Alert;A ppropriate;Follow s Commands [facility] Work Phone: 01-05-2023 Cognitive function Voice/Name [facility] Work Phone: 12-08-2022 Cognitive function Voice/Name [facility] Work Phone: 11-04-2022 Cognitive function Voice/Name [facility] Work Phone: 10-07-2022 Cognitive function Awake;Alert;A ppropriate;Follow s Commands [facility] Work Phone: 08-04-2022 Cognitive function Voice/Name [facility] Work Phone: 07-08-2022 Cognitive function Voice/Name [facility] Work Phone: 06-10-2022 Cognitive function Voice/Name [facility] Work Phone: 05-06-2022 Cognitive function Level Of Cons ciousness Awake;Alert;Appropriate;Follow s Commands [facility] Work Phone: 04-08-2022 Cognitive function Level Of Cons ciousness Awake;Alert;Appropriate;Follow s Commands [facility] Work Phone: 03-04-2022 Cognitive function Voice/Name [facility] Work Phone: 02-04-2022 Cognitive function Awake;Alert;A ppropriate;Follow s Commands [facility] Work Phone: 01-07-2022 Cognitive function Awake;Alert;A ppropriate;Follow s Commands [facility] Work Phone: 12-03-2021 Cognitive function Awake;Alert;A ppropriate;Follow s Commands [facility] Work Phone: 11-05-2021 Cognitive function Awake;Alert;A ppropriate;Follow s Commands [facility] Work Phone: 10-08-2021 Cognitive function Level Of Cons ciousness Awake;Alert;Appropriate;Follow s Commands [facility] Work Phone: 09-10-2021 Cognitive function Awake;Alert;A ppropriate;Follow s Commands [facility] Work Phone: Clinical Notes 07-11-2013 to 03-21-2025 Care Plan - Lu Bee RN - 03/21/2025 11:31 AM EDTCare Coordination - Cassia Dexter - 03/21/2025 10:54 AM EDTCare Plan - Lu Bee RN - 03/21/2025 9:55 AM EDTDischarge Instructions Note Date & Type Note Facility 03-21-2025 Miscellaneous Notes Problem: Safety - Non-violent/Interference with Medical Treatment Restraint Goal: Remains free of injury from restraints (Restraint for Interference with Candy Maker) Outcome: Progressing Goal: Free from restraint(s) (Restraint for Interference with Candy Maker) Outcome: Progressing Problem: Problem Interventions Goal: Assess Nutritional Intake Outcome: Progressing provided patient and with [facility] [employer] Street card has resources such as transportation, food, utilities etc. Problem: Safety - Non-violent/Interference with Medical Treatment Restraint Goal: Remains free of injury from restraints (Restraint for Interference with Candy Maker) Outcome: Progressing Goal: Free from restraint(s) (Restraint for Interference with Candy Maker) Outcome: Progressing Problem: Problem Interventions Goal: Assess Nutritional Intake Outcome: Progressing DME order for FWW placed with Elliot from [facility]. Educated patient and on Home Care and services available. Patient is agreeable to receiving home care services at this time. Patient was given choice of home care agencies available in the area and is agreeable to having referrals made with agencies that staff the patients service location. Referrals have been sent via [facility]. Spoke with pts regarding all accepting agencies. [facility] is [facility]. Agency notified via [facility]. Patient Choice Patient Name: FRANCISCO RAMOS Date of : 1950 All Providers Sent Referral Name: [facility] (For [facility] Facilities Only) Phone: [phone] Address: [address] [place] [address] Name: [facility] Phone: [phone] Address: [address] [address] Name: [facility] Phone: [phone] Address: [facility] [address] [address] Name: [facility] Address: [address] [place] [address] Name: [facility] Phone: [phone] Address: [address] [place] [address] Name: [facility] Phone: [phone] Address: [address] [place] [address] Name: [facility] Phone: [phone] Address: [address] [place] [address] Name: [facility] Phone: [phone] Address: [address] [place] [address] Name: [facility] Phone: [phone] Address: [address] [place] [address] Name: [facility] [place] Phone: [phone] Address: [address] [facility] [place] [facility] [address] [place] [address] Name: [facility] Address: [address] [place] [address] Name: [facility] Address: [address] [facility] [address] [place] [address] Name: [facility] Phone: [phone] Address: [address] [place] [address] Name: [facility] Phone: [phone] Address: [address] [place] [address] Name: [facility] Address: [address] [place] [address] Name: [facility] Address: [address] [place] [address] Name: [facility] Phone: [phone] Address: [address] [place] [address] Name: [facility] Address: [address] [facility] [address] [place] [address] Name: [facility] Address: [address] [facility] [address] [place] [address] Name: [facility]) Phone: [phone] Address: [address] [facility] [address] [place] [address] Name: [facility] Offices) Phone: [phone] Address: [address] [place] [address] Name: [facility] ([facility]) Address: [address] [facility] [place] [address] Name: [facility] Phone: [phone] Address: [address] [place] [address] Care Management Progress Note Short Medical why still here: Patient remains on H6 s/p Lap sigmoidectomy 03/18/2025 Planned Discharge Disposition: Home Health Services Active discharge order noted. TCC working with home care and social work instructor for home going. Barriers/Today we still Wait: coordinating home going with spouse Length of Stay (Days): 5 GMLOS: 4.9 Problem: Safety - Non-violent/Interference with Medical Treatment Restraint Goal: Remains free of injury from restraints (Restraint for Interference with Candy Maker) Outcome: Progressing Goal: Free from restraint(s) (Restraint for Interference with Candy Maker) Outcome: Progressing Due to patients history with violence against staff and code debo DE [facility]ES[facility] is unable to accept patient at this time. Referrals sent to other agencies to see if they are able to accept. Community Services Officer following case for Discharge Needs. Patient requested to speak to social work. SW introduced self to patient and patient . Patient and patient stated that they are not agreeable to SNF or IP. Patient and requesting resources for in the home. SW spoke to patient about [facility] and what services they can provide. Patient and are open to services with [facility]. SW completed referral. Patient requested a walker for support. TCC notified. Patient has shower chair already. No other DME needs requested at this time. Patient and are aware to let SW know if they are in need of any other services. TCC in to speak with spouse, Gardenia. Gardenia requesting for help in the home. TCC discussed patient going to Rehab for short time, [facility] declined. TCC reviewed home care and that it is just for short time throughout week. [place] agreeable to speak with social work instructor. TCC secure message social work instructor to see patient. Problem: Safety - Non-violent/Interference with Medical Treatment Restraint Goal: Remains free of injury from restraints (Restraint for Interference with Candy Maker) Outcome: Progressing Goal: Free from restraint(s) (Restraint for Interference with Candy Maker) Outcome: Progressing Problem: Problem Interventions Goal: Assess Nutritional Intake Outcome: Progressing Problem: Problem Interventions Goal: Assess Nutritional Intake Outcome: Progressing Care Management Progress Note Short Medical why still here: Patient remains on H6 s/p Lap sigmoidectomy 03/18/2025 Planned Discharge Disposition: (TBD) TCC in room to speak with patient and spouse, Gardenia. Nurse tech in room with patient. TCC Reviewed OT note with patient and spouse. Patient is involved in the conversation, his answers do not follow the thread of discharge planning. Barriers/Today we still Wait: Clinical stability, Symptomatic control Per TCC chart review patient return of bowel function is needed. Length of Stay (Days): 3 GMLOS: 3 Problem: Safety - Non-violent/Interference with Medical Treatment Restraint Goal: Remains free of injury from restraints (Restraint for Interference with Candy Maker) Outcome: Progressing Goal: Free from restraint(s) (Restraint for Interference with Candy Maker) Outcome: Progressing Problem: Safety - Non-violent/Interference with Medical Treatment Restraint Goal: Remains free of injury from restraints (Restraint for Interference with Candy Maker) Outcome: Progressing Goal: Free from restraint(s) (Restraint for Interference with Candy Maker) Outcome: Progressing Report called to H6 NUrse Called and updated pt at this time OPERATIVE NOTE PATIENT NAME: Francisco Ramos : 1950 ATTENDING PHYSICIAN: Bronson Jarrett MD PROCEDURE DATE: 03/18/2025 PREOPERATIVE DIAGNOSIS: Sigmoid volvulus POSTOPERATIVE DIAGNOSIS: Same SURGEON: Bronson Jarrett MD GRAIN BROKER AND MARKET OPERATOR: Yasmin Barry OPERATION: Laparoscopic sigmoid colectomy ANESTHESIA: General ESTIMATED BLOOD LOSS: <50ml COMPLICATIONS: none SPECIMENS: Sigmoid colon and anastomotic rings INDICATIONS: The patient is a 74 y.o. year old male with history of above preop diagnosis. I explained the risk, benefits, expected outcome, and alternatives to the procedure. Patient understands the risks include but not inclusive to bleeding, infection, anesthesia complication, blood vessel/nerve damage, chronic pain, reoperation, and failure of the procedure to obtain its intended goals. Patient understands and is in agreement and would like to proceed. DESCRIPTION OF PROCEDURE: Patient was brought to the operating room and placed in the lithotomy position with arms tucked by their sides and all bony prominences appropriate padded. The patient was intubated by anesthesia. A tap block was performed by the anesthesia team. The rectal tube was removed. The abdomen was prepped with ChloraPrep and the patient was draped in usual sterile fashion. A midline incision was created in a semicircular fashion around the umbilicus extending down inferiorly. We dissected down through subcutaneous tissue using electrocautery. The anterior fascia was then elevated and we entered using electrocautery and got into the abdominal cavity. We then placed a gel point mini and gain insufflation. Upon surveying the abdomen the sigmoid colon was very redundant and it easily twisted upon itself. The rectosigmoid colon was elevated and we made an incision using Enseal device on the right rectosigmoid mesentery to enter the retrorectal plane. We developed that distally and proximally and identified the left ureter and kept that in the retroperitoneal position. We left the ROSALINDA intact. We then divided the rectal mesentery around the level of the sacral promontory to clear off the rectum circumferentially. We then divided the rectum using a 60 mm Endo ROSALBA green load stapler and blue load stapler. We then used Enseal device to divide the colon mesentery close to the colon wall going proximally to our proposed area of transection which was around the area of the descending sigmoid colon where the redundancy terminates. We then desufflated the abdomen and brought the specimen up through the gel point mini. The colon was transected using scissors and the specimen sent off as sigmoid colon. We sewed a pursestring suture and using 0 Prolene in the proximal divided portion of the colon. We then placed a 33 mm anvil in the colon and tied it down with our pursestring. The mesentery of the colon was cleared off using electrocautery. We then returned the colon and anvil back into the abdomen and regained insufflation with our gel point mini. The rectum was then serially dilated. The 33 mm EEA stapler was then placed transanally and the spike was opened up. We then created our Hanna rectal anastomosis. We had to complete anastomotic rings. We then occluded the proximal portion of the anastomosis and submerged the anastomosis under saline. We then performed a flexible sigmoidoscopy and the anastomosis appeared intact and there were no air bubbles seen on leak test. We then suctioned out the fluid from the pelvis and withdrew the flexible sigmoidoscope. The abdomen was then desufflated. GelPort mini was then removed. We changed our gloves. We then proceeded to close the anterior fascia and using 0 PDS. We then closed the skin using 4-0 Monocryl and dressed the incision with Dermabond. Patient was then awoken by anesthesia and transferred to the PACU in stable condition. Date: 03/18/2025 Location: [facility] OR Name: Francisco Ramos, : 1950, Diagnosis Pre-op Diagnosis * Sigmoid volvulus (CMS/HCC) (HCC) [K56.2] Post-op Diagnosis * Sigmoid volvulus (CMS/HCC) (HCC) [K56.2] Procedures Laparoscopic single-port sigmoid colectomy with colorectal anastomosis Removal of rectal tube Surgeons * Bronson Jarrett - Primary Procedure Summary Anesthesia: General ASA: III Estimated Blood Loss: Minimal Drains: Urethral Catheter Straight-tip (Active) Specimens ID Source Type Tests Collected By Collected At Frozen? Priority Lab ID 1 Large Intestine, Sigmoid Colon Tissue TISSUE EXAM Bronson Jarrett MD 03/18/25 [id number] Routine Description: SIGMOID COLON Staff: Form Grader: Joseph Ibarra RN; Nika Schuster, JOSÉ LUIS Relief Form Grader: Gini Awan RN; Cecilia Tinajero Relief Scrub: Nora Mahmood Scrub Person: Herman Khan RN Findings: See complete op note Complications: None; patient tolerated the procedure well. Specimens Collected: Order Name Source Comment Collection Info Order Time TISSUE EXAM Large Intestine, Sigmoid Colon Collected By: Bronson Jarrett MD 03/18/2025 6:26 PM Wound Class: Class II: Clean-Contaminated Blood Products: None Prophylactic Antibiotics: Procedure appropriate prophylactic antibiotic(s) given within 1 hour of surgical incision (two hours if receiving Vancomycin or flouroquinolone) Cosigned by Bronson Jarrett MD at 03/21/2025 12:18 PM EDT Spoke with TCC regarding pt combative behavior with staff and PT recs for [facility], but will wait to discuss possible home care services with pt/family until closer to pa. Community Services Officer following case for Discharge Needs. Problem: Safety - Non-violent/Interference with Medical Treatment Restraint Goal: Remains free of injury from restraints (Restraint for Interference with Candy Maker) Outcome: Progressing Goal: Free from restraint(s) (Restraint for Interference with Candy Maker) Outcome: Progressing Care Management Progress Note Short Medical why still here: Patient admitted to s/p rigid proctoscopy with rectal tube insertion 03/16/2025 d/t sigmoid volvulus. Planned Discharge Disposition: (TBD) Barriers/Today we still Wait: Clinical stability, Symptomatic control, Administering IV medications Per TCC chart review patient sx awaiting continued colonic decompression with plan for colectomy. Patient remains NPO, IVF with a visual monitor in place per RN. Length of Stay (Days): 1 GMLOS: No GMLOS Documented documented in this encounter [facility] 03-21-2025 Note Problem: Safety - Non-violent/Interference with Medical Treatment Restraint Goal: Remains free of injury from restraints (Restraint for Interference with Candy Maker) Outcome: Progressing Goal: Free from restraint(s) (Restraint for Interference with Candy Maker) Outcome: Progressing Problem: Problem Interventions Goal: Assess Nutritional Intake Outcome: Progressing [facility] 03-21-2025 Plan of care note Problem: Safety - Non-violent/Interference with Medical Treatment Restraint Goal: Remains free of injury from restraints (Restraint for Interference with Candy Maker) Outcome: Progressing Goal: Free from restraint(s) (Restraint for Interference with Candy Maker) Outcome: Progressing Problem: Problem Interventions Goal: Assess Nutritional Intake Outcome: Progressing [facility] 03-21-2025 Note Formatting of this n ote might be different from the original. ADRIENNE provided patient and with [employer]. Street card has resources such as transportation, food, utilities etc. [facility] 03-21-2025 Note Formatting of this n ote might be different from the original. ADRIENNE provided patient and with [employer]. Street card has resources such as transportation, food, utilities etc. [facility] 03-21-2025 Note Problem: Safety - Non-violent/Interference with Medical Treatment Restraint Goal: Remains free of injury from restraints (Restraint for Interference with Candy Maker) Outcome: Progressing Goal: Free from restraint(s) (Restraint for Interference with Candy Maker) Outcome: Progressing Problem: Problem Interventions Goal: Assess Nutritional Intake Outcome: Progressing [facility] 03-21-2025 Plan of care note Problem: Safety - Non-violent/Interference with Medical Treatment Restraint Goal: Remains free of injury from restraints (Restraint for Interference with Candy Maker) Outcome: Progressing Goal: Free from restraint(s) (Restraint for Interference with Candy Maker) Outcome: Progressing Problem: Problem Interventions Goal: Assess Nutritional Intake Outcome: Progressing T [facility] 03-21-2025 Note Formatting of this n ote might be different from the original. DME order for FWW placed with Elliot from [facility]. [facility] 03-21-2025 Note Formatting of this n ote might be different from the original. DME order for FWW placed with Elliot from [facility]. [facility] 03-21-2025 Note Formatting of this n ote might be different from the original. Educated patient and on Home Care and services available. Patient is agreeable to receiving home care services at this time. Patient was given choice of home care agencies available in the area and is agreeable to having referrals made with agencies that staff the patients service location. Referrals have been sent via [facility]. Spoke with pts regarding all accepting agencies. [facility]. Agency notified via [facility]. [facility] 03-21-2025 Note Formatting of this n ote might be different from the original. Educated patient and on Home Care and services available. Patient is agreeable to receiving home care services at this time. Patient was given choice of home care agencies available in the area and is agreeable to having referrals made with agencies that staff the patients service location. Referrals have been sent via [facility]. Spoke with pts regarding all accepting agencies. [facility] is [facility]. Agency notified via [facility]. [facility] 03-21-2025 Note Formatting of this n ote might be different from the original. Patient Choice Patient Name: FRANCISCO RAMOS Date of : 1950 All Providers Sent Referral Name: [facility] Home Care Services (For [facility] Facilities Only) Phone: [phone] Address: [address] [place] [address] Name: [facility] Phone: [phone] Address: [address] [place] [address] Name: [facility] Phone: [phone] Address: [address] [facility] [address] [place] [address] Name: [facility] Address: [address] [place] [address] Name: [facility] Phone: [phone] Address: [address] [place] [address] Name: [facility] Phone: [phone] Address: [address] [place] [address] Name: [facility] Phone: [phone] Address: [address] [facility] [address] [place] [address] Name: [facility] Phone: [phone] Address: [address] [place] [address] Name: [facility] Phone: [phone] Address: [address] [place] [address] Name: [facility] [place] Phone: [phone] Address: [address] [facility] [place] [facility] [address] [place] [address] Name: [facility] Address: [address] [place] [address] Name: [facility] Address: [address] [facility] [address] [place] [address] Name: [facility] Phone: [phone] Address: [address] [place] [address] Name: [facility] Phone: [phone] Address: [place] [address] Name: [facility] [place] Address: [address] [place] [address] Name: [facility] Address: [address] [place] [address] Name: [facility] Phone: [phone] Address: [address] [place] [address] Name: [facility] Address: [address] [facility] [address] [place] [address] Name: [facility] Address: [address] [facility] [address] [place] [address] Name: [facility] Phone: [phone] Address: [address] [facility] [address] [place] [address] Name: [facility] (All Offices) Phone: [phone] Address: [address] [address] Name: [facility] (Home Health) Address: [address] [place] [address] Name: [facility] Phone: [phone] Address: [address] [place] [address] [facility] 03-21-2025 Note Formatting of this n ote might be different from the original. Patient Choice Patient Name: FRANCISCO RAMOS Date of : 1950 All Providers Sent Referral Name: [facility] Care Services (For [facility] Facilities Only) Phone: [phone] Address: [address] [place] [address] Name: [facility] Phone: [phone] Address: [address] [place] [address] Name: [facility] Phone: [phone] Address: [address] [facility] [address] [place] [address] Name: [facility] Address: [address] [place] [address] Name: [facility] Phone: [phone] Address: [address] [place] [address] Name: [facility] Phone: [phone] Address: [address] [place] [address] Name: [facility] Phone: [phone] Address: [address] [facility] [address] [place] [address] Name: [facility] Phone: [phone] Address: [address] [place] [address] Name: [facility] Phone: [phone] Address: [address] [place] [address] Name: [facility] Phone: [phone] Address: [address] [facility] [address] [place] [address] Name: [facility] Address: [address] [place] [address] Name: [facility] Address: [address] [facility] [address] [place] [address] Name: [facility] Phone: [phone] Address: [address] [place] [address] Name: [facility] Phone: [phone] Address: [address] [place] [address] Name: [facility] Address: [address] [place] [address] Name: [facility] Address: [address] [place] [address] Name: [facility] Phone: [phone] Address: [address] [place] [address] Name: [facility] Address: [address] [facility] [address] [place] [address] Name: [facility] Address: [address] [facility] [address] [place] [address] Name: [facility] Phone: [phone] Address: [address] [facility] [address] [place] [address] Name: [facility] (All Offices) Phone: [phone] Address: [address] [address] Name: [facility] (Home [facility]) Address: [address] [place] [address] Name: [facility] Phone: [phone] Address: [address] [place] [address] [facility] 03-21-2025 Note Formatting of this n ote might be different from the original. Care Management Progress Note Short Medical why still here: Patient remains on H6 s/p Lap sigmoidectomy 03/18/2025 Planned Discharge Disposition: Home Health Services Active discharge order noted. TCC working with home care and social work instructor for home going. Barriers/Today we still Wait: coordinating home going with spouse Length of Stay (Days): 5 GMLOS: 4.9 [facility] 03-21-2025 Note Formatting of this n ote might be different from the original. Care Management Progress Note Short Medical why still here: Patient remains on H6 s/p Lap sigmoidectomy 03/18/2025 Planned Discharge Disposition: Home Health Services Active discharge order noted. TCC working with home care and social work instructor for home going. Barriers/Today we still Wait: coordinating home going with spouse Length of Stay (Days): 5 GMLOS: 4.9 T [facility] 03-21-2025 Note Care Management Prog ress Note Short Medical why still here: Patient remains on H6 s/p Lap sigmoidectomy 03/18/2025 Planned Discharge Disposition: Home Health Services Active discharge order noted. TCC working with home care and social work instructor for home going. Barriers/Today we still Wait: coordinating home going with spouse Length of Stay (Days): 5 GMLOS: 4.9 [facility] 03-21-2025 Note Discharge Summary Francisco Ramso : 1950 ADMIT DATE: 03/16/2025 DISCHARGE DATE: 03/22/25 PRIMARY CARE PHYSICIAN: Jameel Oseguera VISIT STATUS: Admission CODE STATUS: DNR-CCA DISCHARGE DIAGNOSES: Principal Problem: Sigmoid volvulus (CMS/HCC) (HCC) BMI Classification: Estimated body mass index is 21.29 kg/m? as calculated from the following: Height as of this encounter: 1.727 m (5' 7.99). Weight as of this encounter: 63.5 kg (140 lb). BMI is less than 18.5, it falls within the underweight range. BMI is 18.5 to <25, it falls within the healthy weight range. BMI is 25.0 to <30, it falls within the overweight range. BMI is 30.0 or higher, it falls within the obesity range. HOSPITAL COURSE: Patient presented to outside facility with sigmoid volvulus, was transferred here for a higher level of care. 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 The patient the tolerated procedure without any complications. Immediately post-op, pt was extubated and transferred to PACU in stable condition. After PACU criteria met and within 24 hrs of procedure, patient was transferred to medical surgical floor. Patient's diet was advanced as tolerated with return of bowel function and patient was stable for discharge to home on the day of discharge. Hospital admission was complicated by hyperactive delirium that resolved by the day of discharge. Throughout ken-operative course, there was monitoring of vital signs, urine output and clinical status of patient. Diet was subsequently advanced and by the day of discharge patient was ambulating, voiding and tolerating PO without difficulty. Pain was well controlled with oral medications by time of discharge. SIGNIFICANT DIAGNOSTIC STUDIES: See EMR CONSULTANTS: Geriatrics MEDICATION CHANGES: See EMR RECOMMENDED NEXT STEPS: Follow up with Dr. Jarrett for your next scheduled post-operative appointment. DISCHARGE MEDICATIONS: Medication List START taking these medications acetaminophen 650 MG ER tablet Commonly known as: Tylenol 8 Hour Take 1 tablet (650 mg) by mouth every 8 hours as needed for mild pain (1-3) or moderate pain (4-6) for up to 10 days. Do not crush, chew, or split. CONTINUE taking these medications carbidopa-levodopa 25-250 MG disintegrating tablet Commonly known as: [facility] Where to Get Your Medications These medications were sent to [facility] - [place], [place] - [address] [place] [address] acetaminophen 650 MG ER tablet DIET: Adult diet Regular; Low Fiber ACTIVITY: No heavy lifting. COMPLEXITY OF FOLLOW UP: [x] Moderate Complexity: follow up within 7-14 calendar days (54412) [] Severe Complexity: follow up within 7 calendar days (58371) FOLLOW UP TESTING, PENDING RESULTS OR REFERRALS AT TRANSITIONAL CARE VISIT: [] Yes [x] No PENDING STUDIES: No DISPOSITION: Home FACILITY/HOME CARE AGENCY NAME: None Follow up with Bronson Jarrett MD [address] [place] [address] [address] [id number] Follow up in 2 week(s) Call in 1-2 days to schedule follow up appt DISCHARGE TIME: > 30 minutes SIGNED: Carmen Cassidy MD General Surgery Resident 03/21/25 7:38 AM This note may have been dictated using Voicebase Medical Practice Edition 2.6 and/or Teles[employer] Voice Recognition Feature. The document was proofread; however, unrecognized voice recognition nuclear reactor technician errors may be present. [facility] 03-21-2025 Hospital course Narrative Images from the original note were not included. Discharge Summary Francisco Ramos : 1950 ADMIT DATE: 03/16/2025 DISCHARGE DATE: 03/22/25 PRIMARY CARE PHYSICIAN: Jameel Oseguera VISIT STATUS: Admission CODE STATUS: DNR-CCA DISCHARGE DIAGNOSES: Principal Problem: Sigmoid volvulus (CMS/HCC) (HCC) BMI Classification: Estimated body mass index is 21.29 kg/m as calculated from the following: Height as of this encounter: 1.727 m (5' 7.99). Weight as of this encounter: 63.5 kg (140 lb). BMI is less than 18.5, it falls within the underweight range. BMI is 18.5 to <25, it falls within the healthy weight range. BMI is 25.0 to <30, it falls within the overweight range. BMI is 30.0 or higher, it falls within the obesity range. HOSPITAL COURSE: Patient presented to outside facility with sigmoid volvulus, was transferred here for a higher level of care. 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 The patient the tolerated procedure without any complications. Immediately post-op, pt was extubated and transferred to PACU in stable condition. After PACU criteria met and within 24 hrs of procedure, patient was transferred to medical surgical floor. Patient's diet was advanced as tolerated with return of bowel function and patient was stable for discharge to home on the day of discharge. Hospital admission was complicated by hyperactive delirium that resolved by the day of discharge. Throughout ken-operative course, there was monitoring of vital signs, urine output and clinical status of patient. Diet was subsequently advanced and by the day of discharge patient was ambulating, voiding and tolerating PO without difficulty. Pain was well controlled with oral medications by time of discharge. SIGNIFICANT DIAGNOSTIC STUDIES: See EMR CONSULTANTS: Geriatrics MEDICATION CHANGES: See EMR RECOMMENDED NEXT STEPS: Follow up with Dr. Jarrett for your next scheduled post-operative appointment. DISCHARGE MEDICATIONS: Medication List START taking these medications acetaminophen 650 MG ER tablet Commonly known as: Tylenol 8 Hour Take 1 tablet (650 mg) by mouth every 8 hours as needed for mild pain (1-3) or moderate pain (4-6) for up to 10 days. Do not crush, chew, or split. CONTINUE taking these medications carbidopa-levodopa 25-250 MG disintegrating tablet Commonly known as: [facility] Where to Get Your Medications These medications were sent to [facility] - [place], [place] - [address] [place] [address] acetaminophen 650 MG ER tablet DIET: Adult diet Regular; Low Fiber ACTIVITY: No heavy lifting. COMPLEXITY OF FOLLOW UP: [x] Moderate Complexity: follow up within 7-14 calendar days (43581) [] Severe Complexity: follow up within 7 calendar days (15609) FOLLOW UP TESTING, PENDING RESULTS OR REFERRALS AT TRANSITIONAL CARE VISIT: [] Yes [x] No PENDING STUDIES: No DISPOSITION: Home FACILITY/HOME CARE AGENCY NAME: None Follow up with Bronson Jarrett MD [address] [place] [address] [address] [id number] Follow up in 2 week(s) Call in 1-2 days to schedule follow up appt DISCHARGE TIME: > 30 minutes SIGNED: Carmen Cassidy MD General Surgery Resident 03/21/25 7:38 AM This note may have been dictated using Voicebase Medical Practice Edition 2.6 and/or [employer] Voice Recognition Feature. The document was proofread; however, unrecognized voice recognition nuclear reactor technician errors may be present. Cosigned by Bronson Jarrett MD at 03/21/2025 12:17 PM EDT documented in this encounter [facility] 03-21-2025 Note Department of [facility] Surgery Daily Progress Note ADMIT DATE: 03/16/2025 TODAY'S DATE: 03/21/2025 SUBJECTIVE: NAEO. Awake in bed, very pleasant and alert this morning. No confusion or delirium, answering questions appropriately. No family bedside this AM. Pain well controlled. Tolerating diet. Passing flatus and bowel movements per bedside aid. ROS: Noted above unless otherwise mentioned OBJECTIVE: VITALS: Temp: [36.4 ?C (97.6 ?F)-37 ?C (98.6 ?F)] 36.4 ?C (97.6 ?F) Heart Rate: [87-110] 89 Resp: [14-16] 16 BP: (115-146)/(70-89) 146/89 INTAKE/OUTPUT: No intake or output data in the 24 hours ending 03/21/25 0738 No intake/output data recorded. No intake/output data recorded. PHYSICAL EXAM: Gen: NAD, pain well controlled Heart: Regular rate, well perfused Lungs: Normal work of breathing on room air Abd: Soft, non distention, non rigid. Incision CDI, appropriate ken-incisional tenderness. Neuro: Confused but similar to previous encounters with patient. Awake. LABS CBC: Auto WBC Date Value Ref Range Status 03/21/2025 3.7 3.6 - 10.7 10*3/uL Final 03/20/2025 7.7 3.6 - 10.7 10*3/uL Final 03/19/2025 6.3 3.6 - 10.7 10*3/uL Final Hemoglobin Date Value Ref Range Status 03/21/2025 12.6 (L) 13.0 - 18.0 g/dL Final 03/20/2025 13.7 13.0 - 18.0 g/dL Final 03/19/2025 13.1 13.0 - 18.0 g/dL Final Platelets Date Value Ref Range Status 03/21/2025 120 (L) 140 - 440 10*3/uL Final 03/20/2025 155 140 - 440 10*3/uL Final 03/19/2025 117 (L) 140 - 440 10*3/uL Final BMP: SODIUM Date Value Ref Range Status 03/21/2025 134 (L) 136 - 145 mmol/L Final 03/20/2025 135 (L) 136 - 145 mmol/L Final 03/19/2025 135 (L) 136 - 145 mmol/L Final POTASSIUM Date Value Ref Range Status 03/21/2025 3.8 3.5 - 5.1 mmol/L Final Comment: Plasma potassium values may be up to 0.5 mmol/L lower than serum values. 03/20/2025 3.3 (L) 3.5 - 5.1 mmol/L Final Comment: Plasma potassium values may be up to 0.5 mmol/L lower than serum values. 03/19/2025 4.0 3.5 - 5.1 mmol/L Final Comment: Plasma potassium values may be up to 0.5 mmol/L lower than serum values. CHLORIDE Date Value Ref Range Status 03/21/2025 104 98 - 107 mmol/L Final 03/20/2025 104 98 - 107 mmol/L Final 03/19/2025 106 98 - 107 mmol/L Final CARBON DIOXIDE Date Value Ref Range Status 03/21/2025 20 (L) 23 - 31 mmol/L Final 03/20/2025 23 23 - 31 mmol/L Final 03/19/2025 16 (L) 23 - 31 mmol/L Final UREA NITROGEN Date Value Ref Range Status 03/21/2025 15 9 - 23 mg/dL Final 03/20/2025 18 9 - 23 mg/dL Final 03/19/2025 13 9 - 23 mg/dL Final CREATININE Date Value Ref Range Status 03/21/2025 0.76 0.72 - 1.25 mg/dL Final 03/20/2025 0.82 0.72 - 1.25 mg/dL Final 03/19/2025 0.73 0.72 - 1.25 mg/dL Final Hepatic: AST (SGOT) Date Value Ref Range Status 03/16/2025 26 <34 U/L Final ALT Date Value Ref Range Status 03/16/2025 23 <40 U/L Final ALBUMIN Date Value Ref Range Status 03/16/2025 3.5 3.4 - 4.8 g/dL Final BILIRUBIN, TOTAL Date Value Ref Range Status 03/16/2025 0.5 <1.2 mg/dL Final ALKALINE PHOSPHATASE Date Value Ref Range Status 03/16/2025 67 40 - 150 U/L Final Current Inpatient Medications Scheduled Meds:Scheduled Meds[1] Continuous Infusions:Continuous Meds[2] PRN Meds:PRN Meds[3] ASSESSMENT AND PLAN: 74 y.o. male presenting with sigmoid volvulus, s/p rigid proctoscopy with rectal tube placement 03/16 s/p laparoscopic sigmoid colectomy 03/18. Acute blood loss anemia. Pancytopenia - Soft diet - Continue to monitor bowel function - As needed pain and nausea control - OOBA - DVT ppx with lovenox - PT recs: Home with 24 hour assistance and home PT - Dispo: Discharge to home today Will discuss with Dr. Jarrett. Carmen Cassidy MD General Surgery Resident 03/21/25 7:38 AM This note may have been dictated using Voicebase Medical Practice Edition 2.6 and/or [employer] Voice Recognition Feature. The document was proofread; however, unrecognized voice recognition nuclear reactor technician errors may be present. Attending Supervising Physician's Attestation Statement I performed a history and physical examination of the patient and discussed the findings and management with the resident physician. I reviewed and agree with the findings and plan as documented. Date of service is 03/21/2025 [1] carbidopa-levodopa, 1 tablet, Oral, BID carbidopa-levodopa, 1.5 tablet, Oral, BID docusate, 50 mg, Oral, Daily enoxaparin, 40 mg, SubCUTAneous, Daily pantoprazole (ProtoNix) 40 mg in sodium chloride (PF) 0.9 % 10 mL injection, 40 mg, IntraVENous, Daily [2] [3] PRN medications: acetaminophen, naloxone, ondansetron ODT OR ondansetron, oxyCODONE OR oxyCODONE [facility] 03-21-2025 History of Presen t illness Narrative Images from the original note were not included. Department of General Surgery Daily Progress Note ADMIT DATE: 03/16/2025 TODAY'S DATE: 03/21/2025 SUBJECTIVE: NAEO. Awake in bed, very pleasant and alert this morning. No confusion or delirium, answering questions appropriately. No family bedside this AM. Pain well controlled. Tolerating diet. Passing flatus and bowel movements per bedside aid. ROS: Noted above unless otherwise mentioned OBJECTIVE: VITALS: Temp: [36.4 C (97.6 F)-37 C (98.6 F)] 36.4 C (97.6 F) Heart Rate: [87-110] 89 Resp: [14-16] 16 BP: (115-146)/(70-89) 146/89 INTAKE/OUTPUT: No intake or output data in the 24 hours ending 03/21/25 0738 No intake/output data recorded. No intake/output data recorded. PHYSICAL EXAM: Gen: NAD, pain well controlled Heart: Regular rate, well perfused Lungs: Normal work of breathing on room air Abd: Soft, non distention, non rigid. Incision CDI, appropriate ken-incisional tenderness. Neuro: Confused but similar to previous encounters with patient. Awake. LABS CBC: Auto WBC Date Value Ref Range Status 03/21/2025 3.7 3.6 - 10.7 10*3/uL Final 03/20/2025 7.7 3.6 - 10.7 10*3/uL Final 03/19/2025 6.3 3.6 - 10.7 10*3/uL Final Hemoglobin Date Value Ref Range Status 03/21/2025 12.6 (L) 13.0 - 18.0 g/dL Final 03/20/2025 13.7 13.0 - 18.0 g/dL Final 03/19/2025 13.1 13.0 - 18.0 g/dL Final Platelets Date Value Ref Range Status 03/21/2025 120 (L) 140 - 440 10*3/uL Final 03/20/2025 155 140 - 440 10*3/uL Final 03/19/2025 117 (L) 140 - 440 10*3/uL Final BMP: SODIUM Date Value Ref Range Status 03/21/2025 134 (L) 136 - 145 mmol/L Final 03/20/2025 135 (L) 136 - 145 mmol/L Final 03/19/2025 135 (L) 136 - 145 mmol/L Final POTASSIUM Date Value Ref Range Status 03/21/2025 3.8 3.5 - 5.1 mmol/L Final Comment: Plasma potassium values may be up to 0.5 mmol/L lower than serum values. 03/20/2025 3.3 (L) 3.5 - 5.1 mmol/L Final Comment: Plasma potassium values may be up to 0.5 mmol/L lower than serum values. 03/19/2025 4.0 3.5 - 5.1 mmol/L Final Comment: Plasma potassium values may be up to 0.5 mmol/L lower than serum values. CHLORIDE Date Value Ref Range Status 03/21/2025 104 98 - 107 mmol/L Final 03/20/2025 104 98 - 107 mmol/L Final 03/19/2025 106 98 - 107 mmol/L Final CARBON DIOXIDE Date Value Ref Range Status 03/21/2025 20 (L) 23 - 31 mmol/L Final 03/20/2025 23 23 - 31 mmol/L Final 03/19/2025 16 (L) 23 - 31 mmol/L Final UREA NITROGEN Date Value Ref Range Status 03/21/2025 15 9 - 23 mg/dL Final 03/20/2025 18 9 - 23 mg/dL Final 03/19/2025 13 9 - 23 mg/dL Final CREATININE Date Value Ref Range Status 03/21/2025 0.76 0.72 - 1.25 mg/dL Final 03/20/2025 0.82 0.72 - 1.25 mg/dL Final 03/19/2025 0.73 0.72 - 1.25 mg/dL Final Hepatic: AST (SGOT) Date Value Ref Range Status 03/16/2025 26 <34 U/L Final ALT Date Value Ref Range Status 03/16/2025 23 <40 U/L Final ALBUMIN Date Value Ref Range Status 03/16/2025 3.5 3.4 - 4.8 g/dL Final BILIRUBIN, TOTAL Date Value Ref Range Status 03/16/2025 0.5 <1.2 mg/dL Final ALKALINE PHOSPHATASE Date Value Ref Range Status 03/16/2025 67 40 - 150 U/L Final Current Inpatient Medications Scheduled Meds:Scheduled Meds[1] Continuous Infusions:Continuous Meds[2] PRN Meds:PRN Meds[3] ASSESSMENT AND PLAN: 74 y.o. male presenting with sigmoid volvulus, s/p rigid proctoscopy with rectal tube placement 03/16 s/p laparoscopic sigmoid colectomy 03/18. Acute blood loss anemia. Pancytopenia - Soft diet - Continue to monitor bowel function - As needed pain and nausea control - OOBA - DVT ppx with lovenox - PT recs: Home with 24 hour assistance and home PT - Dispo: Discharge to home today Will discuss with Dr. Jarrett. Carmen Cassidy MD General Surgery Resident 03/21/25 7:38 AM This note may have been dictated using Voicebase Medical Practice Edition 2.6 and/or [employer] Voice Recognition Feature. The document was proofread; however, unrecognized voice recognition nuclear reactor technician errors may be present. Attending Supervising Physician's Attestation Statement I performed a history and physical examination of the patient and discussed the findings and management with the resident physician. I reviewed and agree with the findings and plan as documented. Date of service is 03/21/2025 [1] carbidopa-levodopa, 1 tablet, Oral, BID carbidopa-levodopa, 1.5 tablet, Oral, BID docusate, 50 mg, Oral, Daily enoxaparin, 40 mg, SubCUTAneous, Daily pantoprazole (ProtoNix) 40 mg in sodium chloride (PF) 0.9 % 10 mL injection, 40 mg, IntraVENous, Daily [2] [3] PRN medications: acetaminophen, naloxone, ondansetron ODT OR ondansetron, oxyCODONE OR oxyCODONE Images from the original note were not included. Department of General Surgery Daily Progress Note ADMIT DATE: 03/16/2025 TODAY'S DATE: 03/20/2025 SUBJECTIVE: NAEO. Awake in bed. No family bedside this AM. Pain well controlled. Tolerating diet. Passing flatus and 1 reported BM 03/19. ROS: Noted above unless otherwise mentioned OBJECTIVE: VITALS: Temp: [36.4 C (97.6 F)-37.4 C (99.4 F)] 37 C (98.6 F) Heart Rate: [85-111] 110 Resp: [14-20] 14 BP: (114-144)/(62-86) 115/70 INTAKE/OUTPUT: Intake/Output Summary (Last 24 hours) at 03/20/2025 0855 Last data filed at 03/19/2025 1343 Gross per 24 hour Intake 1100 ml Output -- Net 1100 ml I/O last 3 completed shifts: In: 2758.3 (43.4 mL/kg) [P.O.:100; I.V.:2658.3 (41.9 mL/kg)] Out: 100 (1.6 mL/kg) [Urine:100 (0 mL/kg/hr)] Weight: 63.5 kg No intake/output data recorded. PHYSICAL EXAM: Gen: NAD, pain well controlled Heart: Regular rate, well perfused Lungs: Normal work of breathing on room air Abd: Soft, non distention, non rigid. Incision CDI, appropriate ken-incisional tenderness. Neuro: Confused but similar to previous encounters with patient. Awake. LABS CBC: Auto WBC Date Value Ref Range Status 03/20/2025 7.7 3.6 - 10.7 10*3/uL Final 03/19/2025 6.3 3.6 - 10.7 10*3/uL Final 03/18/2025 4.6 3.6 - 10.7 10*3/uL Final Hemoglobin Date Value Ref Range Status 03/20/2025 13.7 13.0 - 18.0 g/dL Final 03/19/2025 13.1 13.0 - 18.0 g/dL Final 03/18/2025 13.9 13.0 - 18.0 g/dL Final Platelets Date Value Ref Range Status 03/20/2025 155 140 - 440 10*3/uL Final 03/19/2025 117 (L) 140 - 440 10*3/uL Final 03/18/2025 127 (L) 140 - 440 10*3/uL Final BMP: SODIUM Date Value Ref Range Status 03/20/2025 135 (L) 136 - 145 mmol/L Final 03/19/2025 135 (L) 136 - 145 mmol/L Final 03/18/2025 137 136 - 145 mmol/L Final POTASSIUM Date Value Ref Range Status 03/20/2025 3.3 (L) 3.5 - 5.1 mmol/L Final Comment: Plasma potassium values may be up to 0.5 mmol/L lower than serum values. 03/19/2025 4.0 3.5 - 5.1 mmol/L Final Comment: Plasma potassium values may be up to 0.5 mmol/L lower than serum values. 03/18/2025 3.6 3.5 - 5.1 mmol/L Final Comment: Plasma potassium values may be up to 0.5 mmol/L lower than serum values. CHLORIDE Date Value Ref Range Status 03/20/2025 104 98 - 107 mmol/L Final 03/19/2025 106 98 - 107 mmol/L Final 03/18/2025 106 98 - 107 mmol/L Final CARBON DIOXIDE Date Value Ref Range Status 03/20/2025 23 23 - 31 mmol/L Final 03/19/2025 16 (L) 23 - 31 mmol/L Final 03/18/2025 24 23 - 31 mmol/L Final UREA NITROGEN Date Value Ref Range Status 03/20/2025 18 9 - 23 mg/dL Final 03/19/2025 13 9 - 23 mg/dL Final 03/18/2025 9 9 - 23 mg/dL Final CREATININE Date Value Ref Range Status 03/20/2025 0.82 0.72 - 1.25 mg/dL Final 03/19/2025 0.73 0.72 - 1.25 mg/dL Final 03/18/2025 0.75 0.72 - 1.25 mg/dL Final Hepatic: AST (SGOT) Date Value Ref Range Status 03/16/2025 26 <34 U/L Final ALT Date Value Ref Range Status 03/16/2025 23 <40 U/L Final ALBUMIN Date Value Ref Range Status 03/16/2025 3.5 3.4 - 4.8 g/dL Final BILIRUBIN, TOTAL Date Value Ref Range Status 03/16/2025 0.5 <1.2 mg/dL Final ALKALINE PHOSPHATASE Date Value Ref Range Status 03/16/2025 67 40 - 150 U/L Final Current Inpatient Medications Scheduled Meds:Scheduled Meds[1] Continuous Infusions:Continuous Meds[2] PRN Meds:PRN Meds[3] ASSESSMENT AND PLAN: 74 y.o. male presenting with sigmoid volvulus, s/p rigid proctoscopy with rectal tube placement 03/16 s/p laparoscopic sigmoid colectomy 03/18 - Soft diet - Continue to monitor bowel function - As needed pain and nausea control - OOBA - DVT ppx with lovenox - PT recs: Home with 24 hour assistance and home PT - Dispo: Discharge today if pain and diet tolerable along with continued bowel function Will discuss with Dr. Jarrett. Stacy Burroughs MD General Surgery Resident 03/20/25 8:55 AM This note may have been dictated using Voicebase Medical Practice Edition 2.6 and/or [employer] Voice Recognition Feature. The document was proofread; however, unrecognized voice recognition nuclear reactor technician errors may be present. Attending Supervising Physician's Attestation Statement I performed a history and physical examination of the patient and discussed the findings and management with the resident physician. I reviewed and agree with the findings and plan as documented. Delayed entry from date of service: 03/20/25 [1] carbidopa-levodopa, 1 tablet, Oral, BID carbidopa-levodopa, 1.5 tablet, Oral, BID docusate, 50 mg, Oral, Daily enoxaparin, 40 mg, SubCUTAneous, Daily pantoprazole (ProtoNix) 40 mg in sodium chloride (PF) 0.9 % 10 mL injection, 40 mg, IntraVENous, Daily [2] [3] PRN medications: haloperidol lactate, HYDROmorphone, naloxone, ondansetron ODT OR ondansetron, oxyCODONE OR oxyCODONE Images from the original note were not included. PHYSICAL THERAPY [facility] Treatment Note Name/MRN: Francisco Ramos ([id number]) Date of : 1950 Age: 74 y.o. Room[facility]Bed: [facility] Discharge Recommendation: 24 hour supervision or assist, Home with Home health PT Equipment Needed: No Assessment Patient is progressing towards goals, most limited by cognition, decreased endurance, and decreased balance. Performs transfers with SBA and is able to ambulate around unit with no device and CGA. Requires consistent cues for safety, patient is impulsive and requires frequent redirection. Anticipate patient will discharge home with 24h assist and home PT. Subjective Seated in recliner upon arrival, agreeable to PT Pain: Pt denies any current pain. Medical Precautions: No active isolations Proper PPE donned/doffed in accordance with facility standards. Fall Risk: Perez Fall Risk Score: 60 (High Risk) Overall Cognitive Status: Exceptions - Following commands: follows one step commands with repetition - Attention span: attends with cues to redirect - Safety judgement: decreased awareness of need for assistance and decreased awareness of need for safety - Problem solving: assistance required to identify errors made and assistance required to correct errors made - Sequencing: requires cues for some Overall Orientation Status: Oriented to Person Family/Caregiver Present: spouse Objective Bed Mobility Sit to supine: Min Assist Scooting: SBA HOB elevated, use of bed rail, assistance for LE swing over into bed Transfers/Mobility Sit to stand: SBA Stand to sit: SBA Good technique, requires cues for alignment to sit surface. Patients sits and stand impulsively and requires cues for safety Device(s) used: None Ambulation Ambulation 1 Assistive device(s) used: None Assist level: Contact Guard Distance (ft): 350ft x 2 Quality of gait: reciprocal stepping, slow alvina. Postural sway at times, Requires redirection and cues for technique and stepping in narrow spaces. One episode of freezing when ambulating over changing floor tiles, able to continue ambulation with cuing. Seated rest between trials. Impulsive. Balance During Session: Posture: fair Sitting - Static: Supervision Sitting - Dynamic: SBA Standing - Static: Contact Guard, Min Assist Standing - Dynamic: Min Assist Standing balance tasks performed with intermittent UE support; patient able to perform self care tasks such as washing hands and pericare, minimal postural sway and no LOB. Standing tolerance for ~5-6 min periods. Incontinent of urine multiple times during ambulation. Plan Continue acute PT per plan of care. Safety/Education Safety Safety Devices in place: All fall risk precautions in place, call light within reach, left in bed, gait belt, and scrip clerk present Restraints: No Education Gait, transfers, balance Outcome Measures AM-PAC AM-PAC Inpatient Mobility Raw Score (No Stairs) : 17 [facility] Score: Walked 250 ft or more (i.e. several laps on unit) Goals Patient Stated Goal: to go home Encounter Problems Encounter Problems (Active) Balance Patient will maintain dynamic standing balance for 5 minutes with independence in order to demonstrate decreased risk of falling. (Progressing) Start: 03/17/25 Expected End: 04/14/25 Mobility Patient will ambulate 100 feet with independence and no assistive device in order to improve safety and independence with mobility. (Progressing) Start: 03/17/25 Expected End: 04/14/25 Transfers Patient will perform bed mobility with independence in order to improve independence and prepare for out of bed mobility. (Progressing) Start: 03/17/25 Expected End: 04/14/25 Patient will complete functional transfer with no assistive device with independence in order to prepare for ambulation. (Progressing) Start: 03/17/25 Expected End: 04/14/25 Therapy Time Individual Co-treatment Time In 1415 Time Out 1447 Minutes 32 Timed Code Treatment Minutes: 32 Minutes (gait, FA) Olivia Noriega PTA Cosigned by Naida Connell PT at 03/19/2025 3:30 PM EDT Nutrition Assessment Type and Reason for Visit: Initial (diet bench repair technician referral for NPO/clear liquids > 3 days) Nutrition Recommendations/Plan: Current diet is clear liquids. Once medically feasible to advance diet, recommend goal of regular, low fiber. Per MNT protocol will send Ensure Clear BID (8 oz provides 240 kcals, 8 gm protein) to assist with kcals/protein. Monitor weight, labs, I/O, skin assessment, BM, and overall nutritional status. RD will follow up weekly. Malnutrition Assessment: Malnutrition Status: At risk for malnutrition (Comment) Context: Acute Illness Findings of the 6 clinical characteristics of malnutrition: Energy Intake: Mild decrease in energy intake (Comment) (Noted by ED that had been eating and drinking well recently. NPO/clear liquids since [facility] admission (3 days).) Weight Loss: (Weight history is limited over past 3 months in [facility]. However, he has lost 10# (6.7%) x 4 months (150# on 11/26/24-->140# on 03/16/25)) Body Fat Loss: Unable to assess Muscle Mass Loss: Unable to assess Fluid Accumulation: No significant fluid accumulation (per flow sheets) Die Caster Strength: Not Performed Nutrition Assessment: 74 y.o. male with history of Parkinson's dementia, constipation, ? Prior sigmoid volvulus managed nonoperatively, CAD, HLD. Patient presented from [facility] for abdominal distention and pain. Imaging concern for sigmoid volvulus. He transferred to [facility] for further surgical evaluation. Repeat CT A/P demonstrated sigmoid colonic dilation and swirling of the mesentery, rectal wall thickening. Patient underwent rigid proctoscopy with rectal tube placement for decompression on 03/16 and laparoscopic sigmoid colectomy on 03/18. Awaiting return of bowel function. Started clear liquid diet after surgery. Estimated Daily Nutrient Needs: Energy Requirements Based On: Kcal/kg Weight Used for Energy Requirements: Admission Weight for Energy Calculation (kg): 63.5 kg Total Energy Requirements (kcals/day): 3586-2412 kcals per day (25-30) Weight Used for Protein Requirements: Admission Weight in Kg Used for Protein Requirements: 63.5 kg Estimated Total Protein (g/day): 76-89 gm per day (1.2-1.4) Estimated Daily Total Fluid (ml/day): Per MD Nutrition Related Findings: Uche = 18, BM on 03/19, abdomen mildly distended, hypoactive bowel sounds, I/O: +3453.3 (since admit), no edema, disoriented to place, time, and situation Wound Type: Surgical Incision (upper abdomen) BMP: Recent Labs 03/17/25 0052 03/18/25 0618 03/19/25 0050 NA 137 137 135* K 3.8 3.6 4.0 CL 107 106 106 CO2 22* 24 16* BUN 13 9 13 CREATININE 0.76 0.75 0.73 GLUCOSE 87 78* 149* CALCIUM 8.8 8.6* 8.2* 03/16/25 Albumin 3.5 Medications: Scheduled Meds[1] PRN Meds[2] Current Nutrition Therapies: Adult diet Regular; Low Fiber Current Oral Intake Average Meal Intake: Unable to assess Average Supplements Intake: None Ordered Anthropometric Measures: Height: 172.7 cm (5' 7.99) Admission Body Weight: 63.5 kg (140 lb) (03/16/25- weight source not specified) Usual Body Weight: (Per review of Epic: 155# on 02/12/25, 150# on 11/26/24) [place] Body Weight (lbs) (Calculated): 154 lbs [place] Body Weight (Kg) (Calculated): 70 kg BMI Categories: Underweight (BMI less than 22) age over 65 Nutrition Diagnosis: Inadequate protein-energy intake related to altered GI function as evidenced by NPO or clear liquid status due to medical condition Nutrition Interventions: Nutrition Education/Counseling: Education not appropriate Coordination of Nutrition Care: Continue to monitor while inpatient Goals: Goals: Meet at least 75% of estimated needs, by next RD assessment Nutrition Monitoring and Evaluation: Behavioral-Environmental Outcomes: None Identified Food/Nutrient Intake Outcomes: Diet Advancement/Tolerance, Food and Nutrient Intake, Supplement Intake Physical Signs/Symptoms Outcomes: Biochemical Data, GI Status, Fluid Status or Edema, Meal Time Behavior, Nutrition Focused Physical Findings, Skin, Weight Discharge Planning: Too soon to determine Oriana Gil RD Contact: *[phone] [1] carbidopa-levodopa, 1 tablet, Oral, BID carbidopa-levodopa, 1.5 tablet, Oral, BID docusate, 50 mg, Oral, Daily enoxaparin, 40 mg, SubCUTAneous, Daily pantoprazole (ProtoNix) 40 mg in sodium chloride (PF) 0.9 % 10 mL injection, 40 mg, IntraVENous, Daily [2] PRN medications: HYDROmorphone, naloxone, ondansetron ODT OR ondansetron, oxyCODONE OR oxyCODONE Images from the original note were not included. OCCUPATIONAL THERAPY [facility] Treatment Note Name/MRN: Francisco Ramos ([id number]) Date of : 1950 Age: 74 y.o. Room[facility]Bed: [facility] Discharge Recommendation: 24 hour supervision or assist Equipment Needed: No (has built in shower bench) Assessment Pt was able to identify self and date. Pt is limited by rigidity, decreased activity tolerance, and needs ample time to process. Pt use fww and is showing progress with fxl mobility and toileting. Pt would benefit from continued acute OT services to increase independence c/ ADLs, fxl mobility and transfers. Recommending 24 hour supervision/assist due to increased need, sitter was in the room during treatment today. Subjective Pt was agreeable to OT treament, caregiver was present. Pain: Pt denies any current pain. Medical Precautions: No active isolations Proper PPE donned/doffed in accordance with facility standards. Fall Risk: Perez Fall Risk Score: 60 (High Risk) Family/Caregiver Present: caregiver Objective ADLs Toileting: Min Assist, for thoroughness and max cues to initiate, needs extended time to process commands. UE Dressing: Mod Assist supine in bed, able to thread arms. Bed Mobility Supine to sit: Max Assist Sit to supine: Max Assist Scooting: Mod Assist HOB Elevated Use of bed rail(s) Transfers/Mobility Sit to stand: Mod Assist, c/ fww, placed hands and slight loss of balance, retro lean to R, corrected with mod A. Stand to sit: Mod Assist, prompted 3 times and A c/ trunk flexion and to control decent. Toilet: Mod Assist Standing balance: Min Assist, c/ loss of balance d/t R retro lean c/ fww for balance for approximately 5 minutes. Functional mobility: Mod Assist, c/ fww to A c/ retro lean, cueing for posture and slight loss of balance when starting and stopping, max direction cues and time to process. Device(s) used: Front wheeled walker Plan Continue acute OT per plan of care. Safety/Education Safety Safety Devices in place: All fall risk precautions in place, call light within reach, left in bed, gait belt, patient at risk for falls, nurse notified, no alarms engaged upon entry, and scrip clerk present Restraints: No Education Education Given To: patient and caregiver Education Provided: OT Role, Plan of Care, ADL Adaptive Strategies, Transfer Training, Energy Conservation, Discharge Recommendations, Benefits of Increasing Activity, and parkinson's techniques. Education Method: Verbal Barriers to Learning: Cognition Education Outcome: Verbalized Understanding, Unable to Demonstrate, and Continued Education Needed AM-PAC AM-PAC Inpatient Daily Activity Raw Score: 16 ADL Inpatient CMS G-Code Modifier: CK Goals Patient Stated Goal: Encounter Problems Encounter Problems (Active) Balance Patient will maintain static standing balance for 5 minutes with modified independence in order to demonstrate decreased risk of falling. (Initiated) Start: 03/18/25 Expected End: 04/15/25 Cognition Patient will sequence through basic ADL with no more than 1 cue. (Initiated) Start: 03/18/25 Expected End: 04/15/25 Dressings Lower Extremities Patient will dress lower body supervision, AE prn. (Not Addressed) Start: 03/18/25 Expected End: 04/15/25 Instrumental Activities of Daily Living Patient will implement energy conservation techniques during ADLs with no more than 1 cue. (Not Addressed) Start: 03/18/25 Expected End: 04/15/25 Toileting Patient will complete toileting tasks at standard toilet with modified independence. (Initiated) Start: 03/18/25 Expected End: 04/15/25 Transfers Patient will complete functional transfer with least restrictive device with modified independence in order to prepare for ambulation. (Initiated) Start: 03/18/25 Expected End: 04/15/25 Therapy Time Individual Co-treatment Time In 1055 Time Out 1125 Minutes 30 Timed Code Treatment Minutes: 25 Minutes Variance: 5 (item retrieval) 1 FA, 1 Self YASHIRA Durant Cosigned by Latoya Grimaldo OTR/L at 03/19/2025 3:19 PM EDT Images from the original note were not included. Department of General Surgery Daily Progress Note ADMIT DATE: 03/16/2025 TODAY'S DATE: 03/19/2025 SUBJECTIVE: NAEO. Resting comfortably at bedside, abdomen mildly distended. No family bedside this AM. Pain well controlled. No noted flatus or Bms by the nursing home admissions director overnight. ROS: Noted above unless otherwise mentioned OBJECTIVE: VITALS: Temp: [35.9 C (96.7 F)-37.1 C (98.8 F)] 36.8 C (98.3 F) Heart Rate: [73-110] 110 Resp: [12-20] 16 BP: (120-162)/(58-90) 138/85 INTAKE/OUTPUT: Intake/Output Summary (Last 24 hours) at 03/19/2025 0746 Last data filed at 03/18/2025 2113 Gross per 24 hour Intake 1658.31 ml Output 775 ml Net 883.31 ml I/O last 3 completed shifts: In: 2438.3 (38.4 mL/kg) [I.V.:2438.3 (38.4 mL/kg)] Out: 775 (12.2 mL/kg) [Urine:775 (0.3 mL/kg/hr)] Weight: 63.5 kg No intake/output data recorded. PHYSICAL EXAM: Gen: NAD, A&Ox1, pain well controlled Heart: RRR, well perfused Lungs: symmetric chest rise, normal work of breathing, breath sounds b/l Abd: soft, mild distention, Non rigid. Incision CDI, appropriate ken-incisional tenderness Ext: no c/c/e no gross deformities Skin: warm, well perfused, no obvious rashes, cellulitis or gross discoloration. LABS CBC: Auto WBC Date Value Ref Range Status 03/19/2025 6.3 3.6 - 10.7 10*3/uL Final 03/18/2025 4.6 3.6 - 10.7 10*3/uL Final 03/17/2025 5.5 3.6 - 10.7 10*3/uL Final Hemoglobin Date Value Ref Range Status 03/19/2025 13.1 13.0 - 18.0 g/dL Final 03/18/2025 13.9 13.0 - 18.0 g/dL Final 03/17/2025 14.3 13.0 - 18.0 g/dL Final Platelets Date Value Ref Range Status 03/19/2025 117 (L) 140 - 440 10*3/uL Final 03/18/2025 127 (L) 140 - 440 10*3/uL Final 03/17/2025 105 (L) 140 - 440 10*3/uL Final BMP: SODIUM Date Value Ref Range Status 03/19/2025 135 (L) 136 - 145 mmol/L Final 03/18/2025 137 136 - 145 mmol/L Final 03/17/2025 137 136 - 145 mmol/L Final POTASSIUM Date Value Ref Range Status 03/19/2025 4.0 3.5 - 5.1 mmol/L Final Comment: Plasma potassium values may be up to 0.5 mmol/L lower than serum values. 03/18/2025 3.6 3.5 - 5.1 mmol/L Final Comment: Plasma potassium values may be up to 0.5 mmol/L lower than serum values. 03/17/2025 3.8 3.5 - 5.1 mmol/L Final Comment: Plasma potassium values may be up to 0.5 mmol/L lower than serum values. CHLORIDE Date Value Ref Range Status 03/19/2025 106 98 - 107 mmol/L Final 03/18/2025 106 98 - 107 mmol/L Final 03/17/2025 107 98 - 107 mmol/L Final CARBON DIOXIDE Date Value Ref Range Status 03/19/2025 16 (L) 23 - 31 mmol/L Final 03/18/2025 24 23 - 31 mmol/L Final 03/17/2025 22 (L) 23 - 31 mmol/L Final UREA NITROGEN Date Value Ref Range Status 03/19/2025 13 9 - 23 mg/dL Final 03/18/2025 9 9 - 23 mg/dL Final 03/17/2025 13 9 - 23 mg/dL Final CREATININE Date Value Ref Range Status 03/19/2025 0.73 0.72 - 1.25 mg/dL Final 03/18/2025 0.75 0.72 - 1.25 mg/dL Final 03/17/2025 0.76 0.72 - 1.25 mg/dL Final Hepatic: AST (SGOT) Date Value Ref Range Status 03/16/2025 26 <34 U/L Final ALT Date Value Ref Range Status 03/16/2025 23 <40 U/L Final ALBUMIN Date Value Ref Range Status 03/16/2025 3.5 3.4 - 4.8 g/dL Final BILIRUBIN, TOTAL Date Value Ref Range Status 03/16/2025 0.5 <1.2 mg/dL Final ALKALINE PHOSPHATASE Date Value Ref Range Status 03/16/2025 67 40 - 150 U/L Final Current Inpatient Medications Scheduled Meds:Scheduled Meds[1] Continuous Infusions:Continuous Meds[2] PRN Meds:PRN Meds[3] ASSESSMENT AND PLAN: 74 y.o. male presenting with sigmoid volvulus, s/p rigid proctoscopy with rectal tube placement 03/16 s/p laparoscopic sigmoid colectomy 03/18 - CLD - await return of bowel function - as needed pain and nausea control - OOBA - DVT ppx with lovenox Will discuss with Dr. Jarrett. Carmen Cassidy MD General Surgery Resident 03/19/25 7:46 AM This note may have been dictated using Voicebase Medical Practice Edition 2.6 and/or [employer] Voice Recognition Feature. The document was proofread; however, unrecognized voice recognition nuclear reactor technician errors may be present. Attending Supervising Physician's Attestation Statement I performed a history and physical examination of the patient and discussed the findings and management with the resident physician. I reviewed and agree with the findings and plan as documented. Delayed entry from date of service: 03/19/25 [1] carbidopa-levodopa, 1 tablet, Oral, BID carbidopa-levodopa, 1.5 tablet, Oral, BID docusate, 50 mg, Oral, Daily enoxaparin, 40 mg, SubCUTAneous, Daily pantoprazole (ProtoNix) 40 mg in sodium chloride (PF) 0.9 % 10 mL injection, 40 mg, IntraVENous, Daily [2] lactated Ringer's, 100 mL/hr, Last Rate: 100 mL/hr (03/18/252117) [3] PRN medications: HYDROmorphone, naloxone, ondansetron ODT OR ondansetron, oxyCODONE OR oxyCODONE Images from the original note were not included. OCCUPATIONAL THERAPY [facility] Initial Evaluation Name/MRN: Francisco Ramos ([id number]) Evaluation Date: 03/18/2025 Date of : 1950 Admission Date: 03/16/2025 6:13 AM Age: 74 y.o. [facility]Bed: [facility] Discharge Recommendation: 24 hour supervision or assist Equipment Needed: No (has built in shower bench) Assessment IMPRESSION: 74 y/o male admitted for proctoscopy and rectal tube placement 03/16 d/t abdominal pain and twisted colon. H/o Parkinson's disease and lives with who assists prn at baseline. Pt reports independent with ADLs and mobility with no device. Pt limited this date by incontinence, generalized weakness, and decreased cognition. CGA functional transfers/mobility and min-max assist ADLs. Anticipate home with 24 hour assist at discharge as pt's can provide 24/7 assist for pt. Recommend continued OT services to address deficits during hospital stay. Admitting Diagnosis: Sigmoid volvulus Performance Deficits /Impairments: Decreased Functional Mobility, Decreased ADL status, Decreased Endurance, Decreased Balance, Decreased High Level IADLs, and Decreased Cognition Prognosis: Fair Decision Making: Medium Complexity Subjective Pt lying upright in bed, agreeable to OT. Pt with scrip clerk present. Pain: Pt denies any current pain. Past Medical History: Medical History[1] Past Surgical History: Surgical History[2] Admission Diagnosis: Patient Active Problem List Diagnosis Date Noted Sigmoid volvulus ([facility] ([facility]) 03/16/2025 Medical Precautions: No active isolations Proper PPE donned/doffed in accordance with facility standards. Fall Risk: Perez Fall Risk Score: 75 (High Risk) Precautions/Restrictions: Lines/Drains/Airways: PIV, Rectal Tube Fall Precautions Family/Caregiver Present: spouse and sibling(s) Overall Cognitive Status: Exceptions - Following commands: follows one step commands with increased time and follows one step commands with repetition - Attention span: difficulty attending to directions - Memory: decreased recall of precautions, decreased recall of recent events, and decreased short term memory - Safety judgement: decreased awareness of need for assistance and decreased awareness of need for safety - Problem solving: assistance required to generate solutions and assistance required to implement solutions - Insights: decreased awareness of deficits - Initiation: requires cues for all - Sequencing: requires cues for all Overall Orientation Status: Oriented to Situation, Oriented to Person, and Disoriented to Place Social/Functional History Patient admitted from home. Lives With: Spouse Type of Home: single family home Home Layout: Two Level Home and Able to Live on Main Level Home Access: Level Entry Bathroom Shower/Tub: Walk in Shower, Grab Bars, and built in bench Toilet: Handicap Height and Grab Bars Home Equipment: front wheeled walker and cane Homemaking Responsibilities: Independent Receives Help From: Spouse Active Astronaut Mission Specialist: No Prior Level of Function Prior Level of ADL Function: Independent Prior Level of Mobility: Independent; Device: None Prior Level of Transfers: Independent Objective ADLs LE Dressing: Pt able to reach to pull socks up but once incontinent of stool required total assist to don/doff socks, 2x total Toileting: Max Assist, incontinent of stool multiple times around fecal management system, max assist to cleanup, 4x total. Cues for pt to participate in ken hygiene but limited d/t distraction and continued incontinence Grooming: Supervision, after setup UE Dressing: Mod Assist, to manage around IV pole LUE, 2x total LE Bathing: Max Assist, cleanup of incontinent stool, 3x total Upper Extremity Assessment AROM: WFL PROM: WFL Strength: WFL Bed Mobility Supine to sit: SBA Sit to supine: Min Assist Cues to initiate and sequence. Min assist for BLEs sit to supine. Transfers/Mobility Sit to stand: Contact Guard Stand to sit: Contact Guard Bed to chair: Contact Guard Toilet: Contact Guard Sitting balance: SBA Standing balance: SBA, Contact Guard Functional mobility: Contact Guard Hand held assist to ambulate to/from restroom. Pt stands at toilet to void bladder with CGA. Cues to initiate, sequence, and problem solve as pt attempting to grab FMS. Upon voiding bladder, pt's FMS incontinent all over floor. Encouraged to sit on toilet for cleanup and change of clothing. Attempted to ambulate to bed, incontinent 2x more with a rest break on BSC between bathroom and bed. Assist from PATTERN PAINTER for cleanup and pt safety. Device(s) used: Used therapist for support AM-PAC AM-PAC Inpatient Daily Activity Raw Score: 15 ADL Inpatient CMS G-Code Modifier: CK Plan Pt would benefit from skilled acute OT services to address Strengthening, ROM, Gait Training, Balance Training, Self-Care/ADL Training, Functional Mobility Training, Endurance Training, Safety Education and Training, Equipment Evaluation/Education, Cognitive Reorientation, Neuromuscular Re-Education Training, Home Management Training, Patient/Caregiver Training, and Cognitive/Perceptual Training Frequency: 3x/week for 4 weeks Barriers: Impaired balance, Lower extremity weakness, Upper extremity weakness, Decreased endurance, Limited safety awareness, and Long standing deficits Safety/Education Safety Safety Devices in place: All fall risk precautions in place, call light within reach, left in bed, patient at risk for falls, nurse notified, and no alarms engaged upon entry Restraints: No Education Education Given To: patient Education Provided: OT Role, Plan of Care, Precautions, ADL Adaptive Strategies, Transfer Training, Energy Conservation, Family Education, Equipment, Fall Prevention Education, Discharge Recommendations, and Benefits of Increasing Activity Education Method: Verbal Barriers to Learning: Cognition Education Outcome: Verbalized Understanding and Continued Education Needed Goals Patient Stated Goal: get better Encounter Problems Encounter Problems (Active) Balance Patient will maintain static standing balance for 5 minutes with modified independence in order to demonstrate decreased risk of falling. Start: 03/18/25 Expected End: 04/15/25 Cognition Patient will sequence through basic ADL with no more than 1 cue. Start: 03/18/25 Expected End: 04/15/25 Dressings Lower Extremities Patient will dress lower body supervision, AE prn. Start: 03/18/25 Expected End: 04/15/25 Instrumental Activities of Daily Living Patient will implement energy conservation techniques during ADLs with no more than 1 cue. Start: 03/18/25 Expected End: 04/15/25 Toileting Patient will complete toileting tasks at standard toilet with modified independence. Start: 03/18/25 Expected End: 04/15/25 Transfers Patient will complete functional transfer with least restrictive device with modified independence in order to prepare for ambulation. Start: 03/18/25 Expected End: 04/15/25 Therapy Time Individual Co-Treatment Co-Evaluation Time In 1432 Time Out 1512 Minutes 40 Timed Code Treatment Minutes: 25 Minutes (1 - self, 1 - FA) THU Izaguirre Patient's Occupational Therapy Plan of Care supervision is transferred to a [facility] Occupational Therapist. Goals and/or treatment plan was established in collaboration with patient/family/other representatives. [1] History reviewed. No pertinent past medical history. [2] History reviewed. No pertinent surgical history. Nutrition rescreen completed. Patient is NPO/Clear liquid >3 days. Refer to Dietitian. Images from the original note were not included. Department of General Surgery Daily Progress Note ADMIT DATE: 03/16/2025 TODAY'S DATE: 03/18/2025 SUBJECTIVE: NAEO. Resting comfortably at bedside, abdomen soft. No family bedside this AM. Pain well controlled. Having flatus and bowel movements through rectal tube. ROS: Noted above unless otherwise mentioned OBJECTIVE: VITALS: Temp: [36.2 C (97.2 F)-37.1 C (98.8 F)] 36.8 C (98.2 F) Heart Rate: [85-97] 88 Resp: [14-20] 14 BP: (114-130)/(62-75) 130/70 INTAKE/OUTPUT: Intake/Output Summary (Last 24 hours) at 03/18/2025 0735 Last data filed at 03/18/2025 0010 Gross per 24 hour Intake 1640 ml Output 300 ml Net 1340 ml I/O last 3 completed shifts: In: 2658.3 (41.9 mL/kg) [I.V.:2658.3 (41.9 mL/kg)] Out: 875 (13.8 mL/kg) [Urine:875 (0.4 mL/kg/hr)] Weight: 63.5 kg No intake/output data recorded. PHYSICAL EXAM: Gen: NAD, A&Ox1, pain well controlled Heart: RRR, well perfused Lungs: symmetric chest rise, normal work of breathing, breath sounds b/l Abd: soft, LLQ mild TTP, less distended than in prior days, Non rigid. Rectal tube in place Ext: no c/c/e no gross deformities Skin: warm, well perfused, no obvious rashes, cellulitis or gross discoloration. LABS CBC: Auto WBC Date Value Ref Range Status 03/18/2025 4.6 3.6 - 10.7 10*3/uL Final 03/17/2025 5.5 3.6 - 10.7 10*3/uL Final 03/16/2025 6.0 3.6 - 10.7 10*3/uL Final Hemoglobin Date Value Ref Range Status 03/18/2025 13.9 13.0 - 18.0 g/dL Final 03/17/2025 14.3 13.0 - 18.0 g/dL Final 03/16/2025 12.9 (L) 13.0 - 18.0 g/dL Final Platelets Date Value Ref Range Status 03/18/2025 127 (L) 140 - 440 10*3/uL Final 03/17/2025 105 (L) 140 - 440 10*3/uL Final 03/16/2025 126 (L) 140 - 440 10*3/uL Final BMP: SODIUM Date Value Ref Range Status 03/18/2025 137 136 - 145 mmol/L Final 03/17/2025 137 136 - 145 mmol/L Final 03/16/2025 137 136 - 145 mmol/L Final POTASSIUM Date Value Ref Range Status 03/18/2025 3.6 3.5 - 5.1 mmol/L Final Comment: Plasma potassium values may be up to 0.5 mmol/L lower than serum values. 03/17/2025 3.8 3.5 - 5.1 mmol/L Final Comment: Plasma potassium values may be up to 0.5 mmol/L lower than serum values. 03/16/2025 3.8 3.5 - 5.1 mmol/L Final Comment: Plasma potassium values may be up to 0.5 mmol/L lower than serum values. CHLORIDE Date Value Ref Range Status 03/18/2025 106 98 - 107 mmol/L Final 03/17/2025 107 98 - 107 mmol/L Final 03/16/2025 110 (H) 98 - 107 mmol/L Final CARBON DIOXIDE Date Value Ref Range Status 03/18/2025 24 23 - 31 mmol/L Final 03/17/2025 22 (L) 23 - 31 mmol/L Final 03/16/2025 23 23 - 31 mmol/L Final UREA NITROGEN Date Value Ref Range Status 03/18/2025 9 9 - 23 mg/dL Final 03/17/2025 13 9 - 23 mg/dL Final 03/16/2025 18 9 - 23 mg/dL Final CREATININE Date Value Ref Range Status 03/18/2025 0.75 0.72 - 1.25 mg/dL Final 03/17/2025 0.76 0.72 - 1.25 mg/dL Final 03/16/2025 0.78 0.72 - 1.25 mg/dL Final Hepatic: AST (SGOT) Date Value Ref Range Status 03/16/2025 26 <34 U/L Final ALT Date Value Ref Range Status 03/16/2025 23 <40 U/L Final ALBUMIN Date Value Ref Range Status 03/16/2025 3.5 3.4 - 4.8 g/dL Final BILIRUBIN, TOTAL Date Value Ref Range Status 03/16/2025 0.5 <1.2 mg/dL Final ALKALINE PHOSPHATASE Date Value Ref Range Status 03/16/2025 67 40 - 150 U/L Final Current Inpatient Medications Scheduled Meds:Scheduled Meds[1] Continuous Infusions:Continuous Meds[2] PRN Meds:PRN Meds[3] ASSESSMENT AND PLAN: 74 y.o. male presenting with sigmoid volvulus, s/p rigid proctoscopy with rectal tube placement 03/16 - Plan for OR today for laparoscopic sigmoid colectomy - will obtain consent - Diet: NPO w/ LR at 100 - serial abdominal exams - miralax BID, rectal tube in place - as needed pain and nausea control - OOBA - DVT ppx with lovenox Will discuss with Dr. Jarrett. Carmen Cassidy MD General Surgery Resident 03/18/25 7:35 AM This note may have been dictated using si[employer] Practice Edition 2.6 and/or [employer] Voice Recognition Feature. The document was proofread; however, unrecognized voice recognition nuclear reactor technician errors may be present. Attending Supervising Physician's Attestation Statement I performed a history and physical examination of the patient and discussed the findings and management with the resident physician. I reviewed and agree with the findings and plan as documented. Delayed entry from date of service: 03/18/25 [1] carbidopa-levodopa, 1 tablet, Oral, BID carbidopa-levodopa, 1.5 tablet, Oral, BID enoxaparin, 40 mg, SubCUTAneous, Daily pantoprazole (ProtoNix) 40 mg in sodium chloride (PF) 0.9 % 10 mL injection, 40 mg, IntraVENous, Daily polyethylene glycol (PEG) 3350, 17 g, Oral, BID [2] lactated Ringer's, 100 mL/hr, Last Rate: 100 mL/hr (03/18/25 0606) [3] PRN medications: HYDROmorphone, naloxone, ondansetron ODT OR ondansetron, oxyCODONE OR oxyCODONE Images from the original note were not included. PHYSICAL THERAPY [facility] Initial Evaluation Name/MRN: Francisco Ramos ([id number]) Evaluation Date: 03/17/2025 Date of : 1950 Admission Date: 03/16/2025 6:13 AM Age: 74 y.o. Room/Bed: -6116/H-6116 A Discharge Recommendation: 24 hour supervision or assist, Home with Home health PT Equipment Needed: No Assessment IMPRESSION: Patient presents status post proctoscopy and rectal tube placement on 03/16 following transfer from [place] on 03/16 for twisted colon and abdominal pain. Patient and report baseline of independence with all functional mobility and no use of assistive device for ambulation. Patient also has baseline Parkinson's disease that has been present. Patient presents today as SBA for bed mobility, CGA for transfers, CGA for ambulation up to 260 feet with no assistive device. Patient would benefit from skilled PT services to address previously mentioned deficits. At this time patient would be appropriate for home with 24 hour supervision and Home Health PT following discharge. Admitting Diagnosis: Sigmoid volvulus Prognosis: fair Performance Deficits /Impairments: Decreased Functional Mobility, Decreased ADL status, Decreased Strength, Decreased Safety Awareness, Decreased Endurance, Decreased Balance, Decreased Coordination, and Decreased Posture Decision Making: Medium Complexity Subjective Patient supine in bed upon arrival. Patient present for majority of session. Patient agreeable to participate in therapy today. Pain: Pt denies any current pain. Past Medical History: Medical History[1] Past Surgical History: Surgical History[2] Admission Diagnosis: Patient Active Problem List Diagnosis Date Noted Sigmoid volvulus ([facility] ([facility]) 03/16/2025 Medical Precautions: No active isolations Proper PPE donned/doffed in accordance with facility standards. Fall Risk: Perez Fall Risk Score: 50 (High Risk) Precautions/Restrictions: Lines/Drains/Airways: PIV, Rectal Tube Fall Precautions Family/Caregiver Present: spouse Overall Cognitive Status: Exceptions - Memory: decreased short term memory - Safety judgement: decreased awareness of need for assistance - Problem solving: assistance required to identify errors made and assistance required to correct errors made Overall Orientation Status: Oriented to Place, Oriented to Situation, and Oriented to Person Vision: Not Assessed Hearing: normal Social/Functional History Patient admitted from home. Lives With: Spouse Type of Home: single family home Home Layout: Two Level Home and Able to Live on Main Level Home Access: Level Entry Bathroom Shower/Tub: Shower Chair with Back, Walk in Shower, and Grab Bars Toilet: Handicap Height and Grab Bars Home Equipment: front wheeled walker and cane Homemaking Responsibilities: Independent Receives Help From: None, can be with patient for 24 hour assistance if needed and several family members live nearby if additional assistance is needed Active Astr[employer] Mission Specialist: N/A Prior Level of Function Prior Level of ADL Function: Independent Prior Level of Mobility: Independent; Device: None Prior Level of Transfers: Independent Objective Lower Extremity Assessment AROM: B knee lacks grossly 5 degrees to full extension Strength: B ankle, hip flexion, knee flexion - 5/5 B knee ext 3-/5 Sensation: Patient denies any N/T Balance: Balance During Session: Posture: fair Sitting - Static: Supervision Sitting - Dynamic: Supervision Standing - Static: Contact Guard Standing - Dynamic: Contact Guard Sitting balance at EOB Standing balance in front of bedside and in front of toilet with no assistive devices used Static standing for 2 min, 1 min, 2 min with occasional cueing on proper TRAVIS Dynamic standing with multi directional weightshifting 1x for 20 seconds CGA due to slight postural sway during standing Multiple static standing performed to increase functional strength and endurance. Bed Mobility: Supine to sit: SBA Scooting: SBA Use of bed rail(s) Supine>sit 1x Scooting to EOB 1x Transfers Sit to stand: Contact Guard Stand to sit: Contact Guard Toilet: Contact Guard Sit<>stand from EOB 4x Sit<>stand from toilet 1x Verbal and tactile cueing on proper TRAVIS, proper hand placement to push up from sitting surface, reaching back for sitting surface Ambulation Ambulation 1 Assistive device(s) used: None Assist level: Contact Guard Distance (ft): 130 Quality of gait: shuffling, narrow TRAVIS, slow alvina, path deviations Ambulation 2 Assistive device(s) used: None Assist level: Contact Guard Distance (ft): 130 Quality of gait: narrow TRAVIS, slow alvina, path deviations Ambulation 3 Assistive device(s) used: None Assist level: Contact Guard Distance (ft): 12, 12, 8, 12 Quality of gait: narrow TRAVIS, slow alvina, path deviations Consistent verbal and tactile cueing on wider TRAVIS, correcting path deviations, upright posture, increased step length, and use of BUE arm swing for improved ambulation stability and safety. Exercises Standing exercises performed with BUE support on surface for stability Standing heel raises x 10 Bilat Standing Hip flexion x 10 Bilat Standing Hip abd x 10 Bilat Standing Knee flexion x 10 Bilat Standing Hip Ext x 10 Bilat Verbal and visual education on proper exercise technique. Educated patient on proper frequency of 2x per day and proper reps per exercise for HEP to continue to build strength and endurance. Outcome Measures AM-PAC How much HELP from another person do you currently need Turning from your back to your side while in a flat bed without using bedrails?: None Moving from lying on your back to sitting on the side of a flat bed without using bedrails?: None Moving to and from a bed to a chair (including a wheelchair)?: A Little Standing up from a chair using your arms (wheelchair or bedside chair)?: A Little Walking in a hospital room?: A Little Stair climbing assessed?: No AM-PAC Inpatient Mobility Raw Score (No Stairs) : 17 [facility] Score: Walked 250 ft or more (i.e. several laps on unit) Plan Pt would benefit from skilled acute PT services to address Strengthening, ROM, Gait Training, Balance Training, Self-Care/ADL Training, Functional Mobility Training, Endurance Training, Safety Education and Training, and Neuromuscular Re-Education Training. Frequency: 1x/week for 4 weeks Barriers: Decreased safety awareness Safety/Education Safety Safety Devices in place: All fall risk precautions in place, call light within reach, left in chair, chair alarm in place, gait belt, no alarms engaged upon entry, and video monitor Restraints: N/A Education Education Given To: patient and spouse Education Provided: PT Role, PT Goals, Gait Training, Transfer Training, Discharge Recommendations, and Benefits of Increasing Activity Education Method: Verbal and Demonstration Barriers to Learning: None Education Outcome: Verbalized Understanding Goals Patient Stated Goal: Patient wants to get home Encounter Problems Encounter Problems (Active) Balance Patient will maintain dynamic standing balance for 5 minutes with independence in order to demonstrate decreased risk of falling. Start: 03/17/25 Expected End: 04/14/25 Mobility Patient will ambulate 100 feet with independence and no assistive device in order to improve safety and independence with mobility. Start: 03/17/25 Expected End: 04/14/25 Transfers Patient will perform bed mobility with independence in order to improve independence and prepare for out of bed mobility. Start: 03/17/25 Expected End: 04/14/25 Patient will complete functional transfer with no assistive device with independence in order to prepare for ambulation. Start: 03/17/25 Expected End: 04/14/25 Therapy Time Individual Co-Treatment Co-Evaluation Time In 0813 Time Out 0852 Minutes 39 Timed Code Treatment Minutes: 24 Minutes (1 unit of TP, 1 unit of GT) Nicholas Kraus SPT Patient's Physical Therapy Plan of Care supervision is transferred to a [facility] Physical Therapist. Goals and/or treatment plan was established in collaboration with patient/family/other representatives. [1] History reviewed. No pertinent past medical history. [2] History reviewed. No pertinent surgical history. Cosigned by Hair Marrero PT at 03/17/2025 1:20 PM EDT Images from the original note were not included. Department of General Surgery Daily Progress Note ADMIT DATE: 03/16/2025 TODAY'S DATE: 03/17/2025 SUBJECTIVE: Agitation overnight, resolved this AM. Feels much less bloated than in prior days. Pain well controlled. Having flatus and bowel movements through rectal tube. Does not endorse: fevers, chills, nausea, vomiting, shortness of breath or chest pain. ROS: Noted above unless otherwise mentioned OBJECTIVE: VITALS: Temp: [36.3 C (97.3 F)-37.6 C (99.6 F)] 36.5 C (97.7 F) Heart Rate: [85-100] 96 Resp: [16-18] 16 BP: (122-158)/(77-96) 136/90 INTAKE/OUTPUT: Intake/Output Summary (Last 24 hours) at 03/17/2025 0711 Last data filed at 03/17/2025 0700 Gross per 24 hour Intake 1705 ml Output 575 ml Net 1130 ml I/O last 3 completed shifts: In: 1705 (26.8 mL/kg) [I.V.:1705 (26.8 mL/kg)] Out: 375 (5.9 mL/kg) [Urine:375 (0.2 mL/kg/hr)] Weight: 63.5 kg I/O this shift: In: - Out: 200 [Urine:200] PHYSICAL EXAM: Gen: NAD, A&Ox3, pain well controlled Heart: RRR, well perfused Lungs: symmetric chest rise, normal work of breathing, breath sounds b/l Abd: soft, LLQ mild TTP, less distended than in prior days, Non rigid. Rectal tube in place Ext: no c/c/e no gross deformities Skin: warm, well perfused, no obvious rashes, cellulitis or gross discoloration. LABS CBC: Auto WBC Date Value Ref Range Status 03/17/2025 5.5 3.6 - 10.7 10*3/uL Final 03/16/2025 6.0 3.6 - 10.7 10*3/uL Final Hemoglobin Date Value Ref Range Status 03/17/2025 14.3 13.0 - 18.0 g/dL Final 03/16/2025 12.9 (L) 13.0 - 18.0 g/dL Final Platelets Date Value Ref Range Status 03/17/2025 105 (L) 140 - 440 10*3/uL Final 03/16/2025 126 (L) 140 - 440 10*3/uL Final BMP: SODIUM Date Value Ref Range Status 03/17/2025 137 136 - 145 mmol/L Final 03/16/2025 137 136 - 145 mmol/L Final POTASSIUM Date Value Ref Range Status 03/17/2025 3.8 3.5 - 5.1 mmol/L Final Comment: Plasma potassium values may be up to 0.5 mmol/L lower than serum values. 03/16/2025 3.8 3.5 - 5.1 mmol/L Final Comment: Plasma potassium values may be up to 0.5 mmol/L lower than serum values. CHLORIDE Date Value Ref Range Status 03/17/2025 107 98 - 107 mmol/L Final 03/16/2025 110 (H) 98 - 107 mmol/L Final CARBON DIOXIDE Date Value Ref Range Status 03/17/2025 22 (L) 23 - 31 mmol/L Final 03/16/2025 23 23 - 31 mmol/L Final UREA NITROGEN Date Value Ref Range Status 03/17/2025 13 9 - 23 mg/dL Final 03/16/2025 18 9 - 23 mg/dL Final CREATININE Date Value Ref Range Status 03/17/2025 0.76 0.72 - 1.25 mg/dL Final 03/16/2025 0.78 0.72 - 1.25 mg/dL Final Hepatic: AST (SGOT) Date Value Ref Range Status 03/16/2025 26 <34 U/L Final ALT Date Value Ref Range Status 03/16/2025 23 <40 U/L Final ALBUMIN Date Value Ref Range Status 03/16/2025 3.5 3.4 - 4.8 g/dL Final BILIRUBIN, TOTAL Date Value Ref Range Status 03/16/2025 0.5 <1.2 mg/dL Final ALKALINE PHOSPHATASE Date Value Ref Range Status 03/16/2025 67 40 - 150 U/L Final Current Inpatient Medications Scheduled Meds:Scheduled Meds[1] Continuous Infusions:Continuous Meds[2] PRN Meds:PRN Meds[3] ASSESSMENT AND PLAN: 74 y.o. male presenting with sigmoid volvulus, s/p rigid proctoscopy with rectal tube placement 03/16 - Continuing to have colonic decompression with rectal tube in place, will plan for interval laparoscopic sigmoid colectomy later this admission after continued decompression - Diet: NPO w/ LR at 100 - serial abdominal exams - miralax BID - as needed pain and nausea control - OOBA - DVT ppx with lovenox Will discuss with Dr. Jarrett. Carmen Cassidy MD General Surgery Resident 03/17/25 7:11 AM This note may have been dictated using Voicebase Medical Practice Edition 2.6 and/or [employer] Voice Recognition Feature. The document was proofread; however, unrecognized voice recognition nuclear reactor technician errors may be present. Attending Supervising Physician's Attestation Statement I performed a history and physical examination of the patient and discussed the findings and management with the resident physician. I reviewed and agree with the findings and plan as documented. Date of service is 03/17/2025 Plan for bowel prep today. Plan for laparoscopic sigmoid colectomy tomorrow. Plan discussed with patient and his at bedside. Details and risks of surgery are discussed including the risks of: bleeding, infection, abscess, anastomotic leak, possible need for re-operation or ostomy, bowel injury, ureteral injury, vascular or nerve injury, prolonged healing, wound problems, and expected functional results. He and his indicates understanding and wishes to proceed with surgery. [1] carbidopa-levodopa, 1 tablet, Oral, BID carbidopa-levodopa, 1.5 tablet, Oral, BID enoxaparin, 40 mg, SubCUTAneous, Daily pantoprazole (ProtoNix) 40 mg in sodium chloride (PF) 0.9 % 10 mL injection, 40 mg, IntraVENous, Daily polyethylene glycol (PEG) 3350, 17 g, Oral, BID [2] lactated Ringer's, 100 mL/hr, Last Rate: 100 mL/hr (03/17/25 0430) [3] PRN medications: HYDROmorphone, naloxone, ondansetron ODT OR ondansetron, oxyCODONE OR oxyCODONE Procedure: Rectal exam, rigid proctoscopy, and rectal tube placement The risks and benefits of the bedside procedure were discussed with the patient and (via phone). All questions were answered. Patient and amenable to procedure. Consent was verbally obtained over the phone by pt's since pt has a known memory deficit. First, the patient was turned onto his right side. External exam of rectum was unremarkable. A JAELYN was performed without evidence of palpable masses. The rigid proctoscopy was inserted into the patient's rectum and both flatus and liquid stool were expelled. When utilizing the rigid proctoscope to visualize the mucosa, the mucosa appeared pink and well perfused. A 24 Fr rectal tube was placed which expelled more flatus and liquid stool. The rectal tube was sutured in to place with one 0 silk suture. The rectal tube was hooked up to a barbosa catheter bag to collect the stool drainage. The patient was cleaned and overall tolerated the procedure well without any immediate complications. His abdomen felt less distended after the procedure, and he endorsed feeling better. The rectal tube will remain in place to allow for decompression of his colon prior to surgical management of sigmoid volvulus. Ordered a 2 view AXR s/p tube placement. Both Dr. Barry (PGY-4 general surgery resident) and Dr. Jarrett (colorectal surgeon) were present for the entirety of the procedure and readily available to help Stacy Burroughs MD General Surgery Resident, PGY-1 Cosigned by Bronson Jarrett MD at 03/16/2025 1:10 PM EDT documented in this encounter [facility] 03-21-2025 Note Problem: Safety - Non-violent/Interference with Medical Treatment Restraint Goal: Remains free of injury from restraints (Restraint for Interference with Candy Maker) Outcome: Progressing Goal: Free from restraint(s) (Restraint for Interference with Candy Maker) Outcome: Progressing [facility] 03-21-2025 Plan of care note Problem: Safety - Non-violent/Interference with Medical Treatment Restraint Goal: Remains free of injury from restraints (Restraint for Interference with Candy Maker) Outcome: Progressing Goal: Free from restraint(s) (Restraint for Interference with Candy Maker) Outcome: Progressing [facility] 03-20-2025 Note Formatting of this n ote might be different from the original. Due to patients history with violence against staff and [facility] is unable to accept patient at this time. Referrals sent to other agencies to see if they are able to accept. Community Services Officer following case for Discharge Needs. [facility] 03-20-2025 Note Formatting of this n ote might be different from the original. Due to patients history with violence against staff and code debo [facility] is unable to accept patient at this time. Referrals sent to other agencies to see if they are able to accept. Community Services Officer following case for Discharge Needs. [facility] 03-20-2025 Note Formatting of this n ote might be different from the original. Patient requested to speak to social work. SW introduced self to patient and patient . Patient and patient stated that they are not agreeable to SNF or IP. Patient and requesting resources for in the home. SW spoke to patient about [facility] and what services they can provide. Patient and are open to services with direction home. SW completed referral. Patient requested a walker for support. TCC notified. Patient has shower chair already. No other DME needs requested at this time. Patient and are aware to let SW know if they are in need of any other services. [facility] 03-20-2025 Note Formatting of this n ote might be different from the original. Patient requested to speak to social work. SW introduced self to patient and patient . Patient and patient stated that they are not agreeable to SNF or IP. Patient and requesting resources for in the home. SW spoke to patient about [facility] home and what services they can provide. Patient and are open to services with [facility] home. SW completed referral. Patient requested a walker for support. TCC notified. Patient has shower chair already. No other DME needs requested at this time. Patient and are aware to let SW know if they are in need of any other services. [facility] 03-20-2025 Note Formatting of this n ote might be different from the original. TCC in to speak with spouse, Gardenia. [place] requesting for help in the home. TCC discussed patient going to Rehab for short time, [facility] declined. TCC reviewed home care and that it is just for short time throughout week. [place] agreeable to speak with social work instructor. TCC secure message social work instructor to see patient. [facility] 03-20-2025 Note Formatting of this n ote might be different from the original. TCC in to speak with spouse, Gardenia. [place] requesting for help in the home. TCC discussed patient going to Rehab for short time, [facility] declined. TCC reviewed home care and that it is just for short time throughout week. [place] agreeable to speak with social work instructor. TCC secure message social work instructor to see patient. T [facility] 03-20-2025 Note Problem: Safety - Non-violent/Interference with Medical Treatment Restraint Goal: Remains free of injury from restraints (Restraint for Interference with Candy Maker) Outcome: Progressing Goal: Free from restraint(s) (Restraint for Interference with Candy Maker) Outcome: Progressing Problem: Problem Interventions Goal: Assess Nutritional Intake Outcome: Progressing [facility] 03-20-2025 Plan of care note Problem: Safety - Non-violent/Interference with Medical Treatment Restraint Goal: Remains free of injury from restraints (Restraint for Interference with Candy Maker) Outcome: Progressing Goal: Free from restraint(s) (Restraint for Interference with Candy Maker) Outcome: Progressing Problem: Problem Interventions Goal: Assess Nutritional Intake Outcome: Progressing [facility] 03-20-2025 Hospital Discharg e instructions Yasmin Barry MD - 03/20/2025 10:00 AM EDT Images from the original note were not included. Discharge Instructions Call your surgeon in 1 to 2 days to schedule a follow-up appointment in 1-2 weeks. OK to shower. Let warm soap and water wash over the incision. Do not scrub. Pat dry. No lotions or ointments until you are seen in the office. Do not swim in a pool, go in a hot tub, or soak in a bathtub for the first week after your surgery. OK for activity as tolerated, including walking and stairs. No lifting over 10 pounds until seen in office or otherwise instructed. If you have been provided with an abdominal binder, this is for your comfort. Please take this off in order to shower and use it as needed for your comfort. There is no designated time frame with which you should wear the binder. Again, it is only for your comfort and symptom relief. Wound Care: keep wound clean and dry, reinforce dressing PRN and ice to area for comfort. If you have surgical glue over your incisions, this will slowly dissolve over the next week. Do not pick at the glue. Surgery can hurt. Do not wait until you have pain to take the prescribed medications, it is hard to catch up once the pain begins. No driving while taking narcotic pain medications. No driving while taking narcotic/sedating medications. Constipation is very common with opiate (oxycodone, norco, hydrocodone, percocet) medications. You may take an over the counter stool softener while on narcotics for constipation as needed (colace, miralax, etc). Continue your diet as currently ordered. We recommend taking it slow and starting with soft foods, if you get nauseated try only clear liquids for a few hours. Call your Physician or return to the Emergency Room if you experience: -New or increased pain. -New or increased bleeding. -Nausea & vomitting. -Fever & chills. -Shortness of breath. -Chest pain. -Abdominal distention. Post-Operative Pain Reduction Strategy to Minimize Opioid Use Please take acetaminophen (Tylenol) and/or NSAIDS (Advil, Motrin) for postoperative pain control before taking opioid prescriptions for pain. You can alternate between the two or stagger them to achieve a more durable pain control regimen. -Do not exceed more than 4g (4000 mg) of acetaminophen within 24 hours -Do not exceed more than 3200 mg NSAIDs in 24 hours -Do not take NSAIDs or acetaminophen if you have any contraindications to them, such as ulcers, liver disease, or bleeding. Lu Bee RN - 03/21/2025 8:55 AM EDT documented in this encounter [facility] 03-20-2025 Note Department of [facility] Surgery Daily Progress Note ADMIT DATE: 03/16/2025 TODAY'S DATE: 03/20/2025 SUBJECTIVE: NAEO. Awake in bed. No family bedside this AM. Pain well controlled. Tolerating diet. Passing flatus and 1 reported BM 03/19. ROS: Noted above unless otherwise mentioned OBJECTIVE: VITALS: Temp: [36.4 ?C (97.6 ?F)-37.4 ?C (99.4 ?F)] 37 ?C (98.6 ?F) Heart Rate: [85-111] 110 Resp: [14-20] 14 BP: (114-144)/(62-86) 115/70 INTAKE/OUTPUT: Intake/Output Summary (Last 24 hours) at 03/20/2025 0855 Last data filed at 03/19/2025 1343 Gross per 24 hour Intake 1100 ml Output -- Net 1100 ml I/O last 3 completed shifts: In: 2758.3 (43.4 mL/kg) [P.O.:100; I.V.:2658.3 (41.9 mL/kg)] Out: 100 (1.6 mL/kg) [Urine:100 (0 mL/kg/hr)] Weight: 63.5 kg No intake/output data recorded. PHYSICAL EXAM: Gen: NAD, pain well controlled Heart: Regular rate, well perfused Lungs: Normal work of breathing on room air Abd: Soft, non distention, non rigid. Incision CDI, appropriate ken-incisional tenderness. Neuro: Confused but similar to previous encounters with patient. Awake. LABS CBC: Auto WBC Date Value Ref Range Status 03/20/2025 7.7 3.6 - 10.7 10*3/uL Final 03/19/2025 6.3 3.6 - 10.7 10*3/uL Final 03/18/2025 4.6 3.6 - 10.7 10*3/uL Final Hemoglobin Date Value Ref Range Status 03/20/2025 13.7 13.0 - 18.0 g/dL Final 03/19/2025 13.1 13.0 - 18.0 g/dL Final 03/18/2025 13.9 13.0 - 18.0 g/dL Final Platelets Date Value Ref Range Status 03/20/2025 155 140 - 440 10*3/uL Final 03/19/2025 117 (L) 140 - 440 10*3/uL Final 03/18/2025 127 (L) 140 - 440 10*3/uL Final BMP: SODIUM Date Value Ref Range Status 03/20/2025 135 (L) 136 - 145 mmol/L Final 03/19/2025 135 (L) 136 - 145 mmol/L Final 03/18/2025 137 136 - 145 mmol/L Final POTASSIUM Date Value Ref Range Status 03/20/2025 3.3 (L) 3.5 - 5.1 mmol/L Final Comment: Plasma potassium values may be up to 0.5 mmol/L lower than serum values. 03/19/2025 4.0 3.5 - 5.1 mmol/L Final Comment: Plasma potassium values may be up to 0.5 mmol/L lower than serum values. 03/18/2025 3.6 3.5 - 5.1 mmol/L Final Comment: Plasma potassium values may be up to 0.5 mmol/L lower than serum values. CHLORIDE Date Value Ref Range Status 03/20/2025 104 98 - 107 mmol/L Final 03/19/2025 106 98 - 107 mmol/L Final 03/18/2025 106 98 - 107 mmol/L Final CARBON DIOXIDE Date Value Ref Range Status 03/20/2025 23 23 - 31 mmol/L Final 03/19/2025 16 (L) 23 - 31 mmol/L Final 03/18/2025 24 23 - 31 mmol/L Final UREA NITROGEN Date Value Ref Range Status 03/20/2025 18 9 - 23 mg/dL Final 03/19/2025 13 9 - 23 mg/dL Final 03/18/2025 9 9 - 23 mg/dL Final CREATININE Date Value Ref Range Status 03/20/2025 0.82 0.72 - 1.25 mg/dL Final 03/19/2025 0.73 0.72 - 1.25 mg/dL Final 03/18/2025 0.75 0.72 - 1.25 mg/dL Final Hepatic: AST (SGOT) Date Value Ref Range Status 03/16/2025 26 <34 U/L Final ALT Date Value Ref Range Status 03/16/2025 23 <40 U/L Final ALBUMIN Date Value Ref Range Status 03/16/2025 3.5 3.4 - 4.8 g/dL Final BILIRUBIN, TOTAL Date Value Ref Range Status 03/16/2025 0.5 <1.2 mg/dL Final ALKALINE PHOSPHATASE Date Value Ref Range Status 03/16/2025 67 40 - 150 U/L Final Current Inpatient Medications Scheduled Meds:Scheduled Meds[1] Continuous Infusions:Continuous Meds[2] PRN Meds:PRN Meds[3] ASSESSMENT AND PLAN: 74 y.o. male presenting with sigmoid volvulus, s/p rigid proctoscopy with rectal tube placement 03/16 s/p laparoscopic sigmoid colectomy 03/18 - Soft diet - Continue to monitor bowel function - As needed pain and nausea control - OOBA - DVT ppx with lovenox - PT recs: Home with 24 hour assistance and home PT - Dispo: Discharge today if pain and diet tolerable along with continued bowel function Will discuss with Dr. Jarrett. Stacy Burroughs MD General Surgery Resident 03/20/25 8:55 AM This note may have been dictated using Voicebase Medical Practice Edition 2.6 and/or [employer] Voice Recognition Feature. The document was proofread; however, unrecognized voice recognition nuclear reactor technician errors may be present. Attending Supervising Physician's Attestation Statement I performed a history and physical examination of the patient and discussed the findings and management with the resident physician. I reviewed and agree with the findings and plan as documented. Delayed entry from date of service: 03/20/25 [1] carbidopa-levodopa, 1 tablet, Oral, BID carbidopa-levodopa, 1.5 tablet, Oral, BID docusate, 50 mg, Oral, Daily enoxaparin, 40 mg, SubCUTAneous, Daily pantoprazole (ProtoNix) 40 mg in sodium chloride (PF) 0.9 % 10 mL injection, 40 mg, IntraVENous, Daily [2] [3] PRN medications: haloperidol lactate, HYDROmorphone, naloxone, ondansetron ODT OR ondansetron, oxyCODONE OR oxyCODONE [facility] 03-20-2025 Note Problem: Problem Int erventions Goal: Assess Nutritional Intake Outcome: Progressing [facility] 03-20-2025 Plan of care note Problem: Problem Interventions Goal: Assess Nutritional Intake Outcome: Progressing [facility] 03-19-2025 Nurse Note I (EDER ORDONEZ) was called to unit d/t patient agitation and attempts to leave the hospital. The officer and myself informed staff and physician that the patient is free to leave unless he is deemed to lack capacity for decision making and green slipped. The physician placed an order for a green slip. When I arrived on the unit staff had mostly calmed the patient down. He was standing with assistance and was able to converse with me. He had been given Haldol 0.5mg IM. The officer and I explained that he is now on a medical hold and not able to leave. I explained that this is temporary. He eventually agreed to sit and talk with me. He told me that he did not like how staff were physically preventing him from walking out. I explained that this was for his safety and apologized for the situation making him upset. He states he understands that he is unsteady and needs assistance, and that staff were trying to keep him safe. His affect brightened as we spoke. At the end of the conversation he shook my hand and agreed to allow staff to help him with his balance, and confirmed understanding (currently) that he is not allowed to leave. [facility] 03-19-2025 Nurse Note I (EDER ORDONEZ) was called to unit d/t patient agitation and attempts to leave the hospital. The officer and myself informed staff and physician that the patient is free to leave unless he is deemed to lack capacity for decision making and green slipped. The physician placed an order for a green slip. When I arrived on the unit staff had mostly calmed the patient down. He was standing with assistance and was able to converse with me. He had been given Haldol 0.5mg IM. The officer and I explained that he is now on a medical hold and not able to leave. I explained that this is temporary. He eventually agreed to sit and talk with me. He told me that he did not like how staff were physically preventing him from walking out. I explained that this was for his safety and apologized for the situation making him upset. He states he understands that he is unsteady and needs assistance, and that staff were trying to keep him safe. His affect brightened as we spoke. At the end of the conversation he shook my hand and agreed to allow staff to help him with his balance, and confirmed understanding (currently) that he is not allowed to leave. Verified with patients that pt. Had jello and lemon ice yesterday for lunch. Around 1829 patient chair alarm was going off, I responded and tried to assist patient back into the chair but patient was not properly responsive to my requests and began to get agitated even after I called his and had him speak with his over the phone. Dayana Modi, NA came into the room to assist me to get the patient back to bed since he would not listen to sit back into the chair. Patient began to try and walk away from us fast. We were able to keep him from going too far by redirection and holding onto his arms. We explained he was a high fall risk due to his IV and catheter sutured into his rectum. Patient continued to be defiant and not listen trying to pull away from us with force. I called out for help. JOSÉ LUIS [place], JOSÉ LUIS [place], and MARCELL Gonzalez came to our aid. Dr. Escudero with gen surg was contacted for new agitation, one time dose of haldol was ordered. Security was called to come in case we needed assistance to get him back to bed. Dayana was holding his hand on his hand to help guide him to the bed. I gave him the IM injection of haldol and patient became aggressive and started squeezing Dayana's fingers. Mercy had to pry patients hand off of Dayana's fingers. Security walked in at this time as patient was starting to escalate and tried to kick at Jacinda. Security assisted us to get him safely into the bed and restrain him. Dayana immediately sent to ice her fingers in tears from pain and shock. The officers took information to fill out an incident report and witnesses reports were filled out as well. Nikki Aguilar RN supervisor [employer] was notified of the incident. documented in this encounter [facility] 03-19-2025 Note Formatting of this n ote might be different from the original. Care Management Progress Note Short Medical why still here: Patient remains on H6 s/p Lap sigmoidectomy 03/18/2025 Planned Discharge Disposition: (TBD) TCC in room to speak with patient and spouse, [place]. Nurse tech in room with patient. TCC Reviewed OT note with patient and spouse. Patient is involved in the conversation, his answers do not follow the thread of discharge planning. Barriers/Today we still Wait: Clinical stability, Symptomatic control Per TCC chart review patient return of bowel function is needed. Length of Stay (Days): 3 GMLOS: 3 [facility] 03-19-2025 Note Formatting of this n ote might be different from the original. Care Management Progress Note Short Medical why still here: Patient remains on H6 s/p Lap sigmoidectomy 03/18/2025 Planned Discharge Disposition: (TBD) TCC in room to speak with patient and spouse, [place]. Nurse tech in room with patient. TCC Reviewed OT note with patient and spouse. Patient is involved in the conversation, his answers do not follow the thread of discharge planning. Barriers/Today we still Wait: Clinical stability, Symptomatic control Per TCC chart review patient return of bowel function is needed. Length of Stay (Days): 3 GMLOS: 3 [facility] 03-19-2025 Note Care Management Prog ress Note Short Medical why still here: Patient remains on H6 s/p Lap sigmoidectomy 03/18/2025 Planned Discharge Disposition: (TBD) TCC in room to speak with patient and spouse, [place]. Nurse tech in room with patient. TCC Reviewed OT note with patient and spouse. Patient is involved in the conversation, his answers do not follow the thread of discharge planning. Barriers/Today we still Wait: Clinical stability, Symptomatic control Per TCC chart review patient return of bowel function is needed. Length of Stay (Days): 3 GMLOS: 3 [facility] 03-19-2025 Note Nutrition Assessment Type and Reason for Visit: Initial (diet bench repair technician referral for NPO/clear liquids > 3 days) Nutrition Recommendations/Plan: Current diet is clear liquids. Once medically feasible to advance diet, recommend goal of regular, low fiber. Per MNT protocol will send Ensure Clear BID (8 oz provides 240 kcals, 8 gm protein) to assist with kcals/protein. Monitor weight, labs, I/O, skin assessment, BM, and overall nutritional status. RD will follow up weekly. Malnutrition Assessment: Malnutrition Status: At risk for malnutrition (Comment) Context: Acute Illness Findings of the 6 clinical characteristics of malnutrition: Energy Intake: Mild decrease in energy intake (Comment) (Noted by ED that had been eating and drinking well recently. NPO/clear liquids since [facility] admission (3 days).) Weight Loss: (Weight history is limited over past 3 months in [facility]. However, he has lost 10# (6.7%) x 4 months (150# on 11/26/24-->140# on 03/16/25)) Body Fat Loss: Unable to assess Muscle Mass Loss: Unable to assess Fluid Accumulation: No significant fluid accumulation (per flow sheets) Die Caster Strength: Not Performed Nutrition Assessment: 74 y.o. male with history of Parkinson's dementia, constipation, ? Prior sigmoid volvulus managed nonoperatively, CAD, HLD. Patient presented from [facility] for abdominal distention and pain. Imaging concern for sigmoid volvulus. He transferred to [facility] for further surgical evaluation. Repeat CT A/P demonstrated sigmoid colonic dilation and swirling of the mesentery, rectal wall thickening. Patient underwent rigid proctoscopy with rectal tube placement for decompression on 03/16 and laparoscopic sigmoid colectomy on 03/18. Awaiting return of bowel function. Started clear liquid diet after surgery. Estimated Daily Nutrient Needs: Energy Requirements Based On: Kcal/kg Weight Used for Energy Requirements: Admission Weight for Energy Calculation (kg): 63.5 kg Total Energy Requirements (kcals/day): 9734-3525 kcals per day (25-30) Weight Used for Protein Requirements: Admission Weight in Kg Used for Protein Requirements: 63.5 kg Estimated Total Protein (g/day): 76-89 gm per day (1.2-1.4) Estimated Daily Total Fluid (ml/day): Per MD Nutrition Related Findings: Uche = 18, BM on 03/19, abdomen mildly distended, hypoactive bowel sounds, I/O: +3453.3 (since admit), no edema, disoriented to place, time, and situation Wound Type: Surgical Incision (upper abdomen) BMP: Recent Labs 03/17/25 0052 03/18/25 0618 03/19/25 0050 NA 137 137 135* K 3.8 3.6 4.0 CL 107 106 106 CO2 22* 24 16* BUN 13 9 13 CREATININE 0.76 0.75 0.73 GLUCOSE 87 78* 149* CALCIUM 8.8 8.6* 8.2* 7/13/25 Albumin 3.5 Medications: Scheduled Meds[1] PRN Meds[2] Current Nutrition Therapies: Adult diet Regular; Low Fiber Current Oral Intake Average Meal Intake: Unable to assess Average Supplements Intake: None Ordered Anthropometric Measures: Height: 172.7 cm (5' 7.99) Admission Body Weight: 63.5 kg (140 lb) (03/16/25- weight source not specified) Usual Body Weight: (Per review of Epic: 155# on 02/12/25, 150# on 11/26/24) [place] Body Weight (lbs) (Calculated): 154 lbs [place] Body Weight (Kg) (Calculated): 70 kg BMI Categories: Underweight (BMI less than 22) age over 65 Nutrition Diagnosis: Inadequate protein-energy intake related to altered GI function as evidenced by NPO or clear liquid status due to medical condition Nutrition Interventions: Nutrition Education/Counseling: Education not appropriate Coordination of Nutrition Care: Continue to monitor while inpatient Goals: Goals: Meet at least 75% of estimated needs, by next RD assessment Nutrition Monitoring and Evaluation: Behavioral-Environmental Outcomes: None Identified Food/Nutrient Intake Outcomes: Diet Advancement/Tolerance, Food and Nutrient Intake, Supplement Intake Physical Signs/Symptoms Outcomes: Biochemical Data, GI Status, Fluid Status or Edema, Meal Time Behavior, Nutrition Focused Physical Findings, Skin, Weight Discharge Planning: Too soon to determine Oriana Gil RD Contact: *[phone] [1] carbidopa-levodopa, 1 tablet, Oral, BID carbidopa-levodopa, 1.5 tablet, Oral, BID docusate, 50 mg, Oral, Daily enoxaparin, 40 mg, SubCUTAneous, Daily pantoprazole (ProtoNix) 40 mg in sodium chloride (PF) 0.9 % 10 mL injection, 40 mg, IntraVENous, Daily [2] PRN medications: HYDROmorphone, naloxone, ondansetron ODT OR ondansetron, oxyCODONE OR oxyCODONE [facility] 03-19-2025 Note Problem: Safety - Non-violent/Interference with Medical Treatment Restraint Goal: Remains free of injury from restraints (Restraint for Interference with Candy Maker) Outcome: Progressing Goal: Free from restraint(s) (Restraint for Interference with Candy Maker) Outcome: Progressing [facility] 03-19-2025 Plan of care note Problem: Safety - Non-violent/Interference with Medical Treatment Restraint Goal: Remains free of injury from restraints (Restraint for Interference with Candy Maker) Outcome: Progressing Goal: Free from restraint(s) (Restraint for Interference with Candy Maker) Outcome: Progressing [facility] 03-19-2025 Note Department of [facility] l Surgery Daily Progress Note ADMIT DATE: 03/16/2025 TODAY'S DATE: 03/19/2025 SUBJECTIVE: NAEO. Resting comfortably at bedside, abdomen mildly distended. No family bedside this AM. Pain well controlled. No noted flatus or Bms by the nursing home admissions director overnight. ROS: Noted above unless otherwise mentioned OBJECTIVE: VITALS: Temp: [35.9 ?C (96.7 ?F)-37.1 ?C (98.8 ?F)] 36.8 ?C (98.3 ?F) Heart Rate: [73-110] 110 Resp: [12-20] 16 BP: (120-162)/(58-90) 138/85 INTAKE/OUTPUT: Intake/Output Summary (Last 24 hours) at 03/19/2025 0746 Last data filed at 03/18/2025 2113 Gross per 24 hour Intake 1658.31 ml Output 775 ml Net 883.31 ml I/O last 3 completed shifts: In: 2438.3 (38.4 mL/kg) [I.V.:2438.3 (38.4 mL/kg)] Out: 775 (12.2 mL/kg) [Urine:775 (0.3 mL/kg/hr)] Weight: 63.5 kg No intake/output data recorded. PHYSICAL EXAM: Gen: NAD, A&Ox1, pain well controlled Heart: RRR, well perfused Lungs: symmetric chest rise, normal work of breathing, breath sounds b/l Abd: soft, mild distention, Non rigid. Incision CDI, appropriate ken-incisional tenderness Ext: no c/c/e no gross deformities Skin: warm, well perfused, no obvious rashes, cellulitis or gross discoloration. LABS CBC: Auto WBC Date Value Ref Range Status 03/19/2025 6.3 3.6 - 10.7 10*3/uL Final 03/18/2025 4.6 3.6 - 10.7 10*3/uL Final 03/17/2025 5.5 3.6 - 10.7 10*3/uL Final Hemoglobin Date Value Ref Range Status 03/19/2025 13.1 13.0 - 18.0 g/dL Final 03/18/2025 13.9 13.0 - 18.0 g/dL Final 03/17/2025 14.3 13.0 - 18.0 g/dL Final Platelets Date Value Ref Range Status 03/19/2025 117 (L) 140 - 440 10*3/uL Final 03/18/2025 127 (L) 140 - 440 10*3/uL Final 03/17/2025 105 (L) 140 - 440 10*3/uL Final BMP: SODIUM Date Value Ref Range Status 03/19/2025 135 (L) 136 - 145 mmol/L Final 03/18/2025 137 136 - 145 mmol/L Final 03/17/2025 137 136 - 145 mmol/L Final POTASSIUM Date Value Ref Range Status 03/19/2025 4.0 3.5 - 5.1 mmol/L Final Comment: Plasma potassium values may be up to 0.5 mmol/L lower than serum values. 03/18/2025 3.6 3.5 - 5.1 mmol/L Final Comment: Plasma potassium values may be up to 0.5 mmol/L lower than serum values. 03/17/2025 3.8 3.5 - 5.1 mmol/L Final Comment: Plasma potassium values may be up to 0.5 mmol/L lower than serum values. CHLORIDE Date Value Ref Range Status 03/19/2025 106 98 - 107 mmol/L Final 03/18/2025 106 98 - 107 mmol/L Final 03/17/2025 107 98 - 107 mmol/L Final CARBON DIOXIDE Date Value Ref Range Status 03/19/2025 16 (L) 23 - 31 mmol/L Final 03/18/2025 24 23 - 31 mmol/L Final 03/17/2025 22 (L) 23 - 31 mmol/L Final UREA NITROGEN Date Value Ref Range Status 03/19/2025 13 9 - 23 mg/dL Final 03/18/2025 9 9 - 23 mg/dL Final 03/17/2025 13 9 - 23 mg/dL Final CREATININE Date Value Ref Range Status 03/19/2025 0.73 0.72 - 1.25 mg/dL Final 03/18/2025 0.75 0.72 - 1.25 mg/dL Final 03/17/2025 0.76 0.72 - 1.25 mg/dL Final Hepatic: AST (SGOT) Date Value Ref Range Status 03/16/2025 26 <34 U/L Final ALT Date Value Ref Range Status 03/16/2025 23 <40 U/L Final ALBUMIN Date Value Ref Range Status 03/16/2025 3.5 3.4 - 4.8 g/dL Final BILIRUBIN, TOTAL Date Value Ref Range Status 03/16/2025 0.5 <1.2 mg/dL Final ALKALINE PHOSPHATASE Date Value Ref Range Status 03/16/2025 67 40 - 150 U/L Final Current Inpatient Medications Scheduled Meds:Scheduled Meds[1] Continuous Infusions:Continuous Meds[2] PRN Meds:PRN Meds[3] ASSESSMENT AND PLAN: 74 y.o. male presenting with sigmoid volvulus, s/p rigid proctoscopy with rectal tube placement 03/16 s/p laparoscopic sigmoid colectomy 03/18 - CLD - await return of bowel function - as needed pain and nausea control - OOBA - DVT ppx with lovenox Will discuss with Dr. Jarrett. Carmen Cassidy MD General Surgery Resident 03/19/25 7:46 AM This note may have been dictated using Voicebase Medical Practice Edition 2.6 and/or [employer] Voice Recognition Feature. The document was proofread; however, unrecognized voice recognition nuclear reactor technician errors may be present. Attending Supervising Physician's Attestation Statement I performed a history and physical examination of the patient and discussed the findings and management with the resident physician. I reviewed and agree with the findings and plan as documented. Delayed entry from date of service: 03/19/25 [1] carbidopa-levodopa, 1 tablet, Oral, BID carbidopa-levodopa, 1.5 tablet, Oral, BID docusate, 50 mg, Oral, Daily enoxaparin, 40 mg, SubCUTAneous, Daily pantoprazole (ProtoNix) 40 mg in sodium chloride (PF) 0.9 % 10 mL injection, 40 mg, IntraVENous, Daily [2] lactated Ringer's, 100 mL/hr, Last Rate: 100 mL/hr (03/18/252117) [3] PRN medications: HYDROmorphone, naloxone, ondansetron ODT OR ondansetron, oxyCODONE OR oxyCODONE [facility] 03-19-2025 Note Problem: Safety - Non-violent/Interference with Medical Treatment Restraint Goal: Remains free of injury from restraints (Restraint for Interference with Candy Maker) Outcome: Progressing Goal: Free from restraint(s) (Restraint for Interference with Candy Maker) Outcome: Progressing [facility] 03-19-2025 Plan of care note Problem: Safety - Non-violent/Interference with Medical Treatment Restraint Goal: Remains free of injury from restraints (Restraint for Interference with Candy Maker) Outcome: Progressing Goal: Free from restraint(s) (Restraint for Interference with Candy Maker) Outcome: Progressing [facility] 03-18-2025 Nurse Note Report called to H6 NUrse T [facility] 03-18-2025 Nurse Note Called and updated pt at this time [facility] 03-18-2025 Note Patient: Francisco Ramos Procedure Summary Date: 03/18/25 Room / Location: [facility] Operating Room Anesthesia Start: 1640 Anesthesia Stop: 1918 Procedure: LAPAROSCOPIC, COLECTOMY, SIGMOID, POSSIBLE OPEN, POSSIBLE OSTOMY CREATION (Abdomen) Diagnosis: Sigmoid volvulus (CMS/HCC) (HCC) Surgeons: Bronson Jarrett MD Responsible Provider: Kenyon Mayer DO Anesthesia Type: general ASA Status: 3 - Emergent Anesthesia Type: general Vitals Value Taken Time BP 133/68 07/15/25 19:30 Temp 36.3 ?C (97.4 ?F) 03/18/25 19:25 Pulse 73 03/18/25 19:33 Resp 14 03/18/25 19:33 SpO2 100 % 03/18/25 19:33 Vitals shown include unfiled device data. Anesthesia Post Evaluation Patient location during evaluation: PACU Patient participation: complete - patient participated Level of consciousness: awake and alert Pain management: satisfactory to patient Airway patency: patent Dental Injury: no Cardiovascular status: acceptable, blood pressure returned to baseline and hemodynamically stable Respiratory status: acceptable and spontaneous ventilation Hydration status: euvolemic Nausea/Vomiting: controlled No notable events documented. Patient can be discharged once all PACU criteria has been met. [facility] 03-18-2025 Note Patient: Francisco Ramos Procedure Summary Date: 03/18/25 Room / Location: [address] Operating Room Anesthesia Start: 1640 Anesthesia Stop: 1918 Procedure: LAPAROSCOPIC, COLECTOMY, SIGMOID, POSSIBLE OPEN, POSSIBLE OSTOMY CREATION (Abdomen) Diagnosis: Sigmoid volvulus (CMS/HCC) (HCC) Surgeons: Bronson Jarrett MD Responsible Provider: Kenyon Mayer DO Anesthesia Type: general ASA Status: 3 - Emergent Anesthesia Type: general Vitals Value Taken Time BP 133/68 03/18/25 19:30 Temp 36.3 ?C (97.4 ?F) 03/18/25 19:25 Pulse 73 03/18/25 19:33 Resp 14 03/18/25 19:33 SpO2 100 % 03/18/25 19:33 Vitals shown include unfiled device data. Anesthesia Post Evaluation Patient participation: complete - patient participated Level of consciousness: alert and awake Pain management: satisfactory to patient Multimodal analgesia pain management approach Airway patency: patent Two or more strategies used to mitigate risk of obstructive sleep apnea Respiratory status: acceptable Cardiovascular status: acceptable Hydration status: acceptable No notable events documented. MIPS #430 PONV Patient received an inhalational anesthetic (4554F) MIPS # 424 Perioperative Temperature Management Anesthesia time was 60 minutes or longer (4255F) MIPS #477 Multimodal Pain Management Not emergent case MIPS #404 Anesthesiology Smoking Abstinence The patient is not a current smoker (e.g. cigarette, cigar, pipe, e-cigarette/vaping/marijuana) If no stop here (XX404) MIPS #463 PEDIATRIC Prevention of Post Operative Vomiting (POV)- Combination Therapy Inhalational anesthetic were not used (G9955) I completed my handoff to the receiving clinician during which we: 1. Identified the patient 2. Identified the responsible provider 3. Reviewed the pertinent medical history 4. Discussed the surgical course 5. Reviewed intra-op anesthesia management and issues during anesthesia 6. Set expectations for post-procedure period 7. Allowed opportunity for questions and acknowledgement of understanding. [facility] 03-18-2025 Note Airway Date/Time: 03/18/2025 4:48 PM Reason: scheduled Airway not difficult General Information and Staff Patient location during procedure: Procedural Resident/[facility]: GINO Iqbal CRNA Performed: [facility] Patient Condition Indications for airway management: anesthesia and airway protection Patient position: sniffing MILS maintained throughout Sedation level: Asleep Final Airway Details Preoxygenated: yes Final airway type: endotracheal airway Successful airway: ETT Cuffed: yes Successful intubation technique: direct laryngoscopy Blade: Baylee Blade size: #3 ETT size (mm): 8.0 Cormack-Lehane Classification: grade IIa - partial view of glottis Placement verified by: chest auscultation, bronchoscopy and capnometry Measured from: lips ETT to lips (cm): 21 Ventilation between attempts: BVM Number of attempts at approach: 1 [facility] 03-18-2025 Note Peripheral Block Time Out: 03/18/2025 4:49 PM Patient location during procedure: Procedural Start time: 03/18/2025 4:50 PM End time: 03/18/2025 4:54 PM Reason for block: at surgeon's request and post-op pain management Staffing Performed: [place] Resident/[facility]: GINO Eng CRNA Preanesthetic Checklist Completed: patient identified, IV checked, site marked, risks and benefits discussed, surgical consent, monitors and equipment checked, pre-op evaluation and timeout performed Region: [place] Primary: TAP (Bupivacaine 0.375%/ Epi 1:200,000/ Dex 0.1mg/mL 40ml divided evenly bilateral) Secondary: Upper rectus (Bupivacaine 0.375%/ Epi 1:200,000/ Dex 0.1mg/mL 20ml divided evenly bilateral) Peripheral Block Patient position: supine Prep: ChloraPrep Patient monitoring: heart rate, weatherization installer, continuous pulse ox and continuous capnometry O2: ETT/LMA Laterality: bilateral Injection technique: single-shot Guidance: ultrasound guided -image retained in chart, tip of the needle identified by ultraound during injection. Needle Needle: 21G X 110 mm Additional Notes 03/18/2025 4:50 PM Assessment Injection assessment: negative aspiration for heme, no paresthesia on injection and incremental injection Heart rate change: no Slow fractionated injection: yes Required Documentation: Relevant anatomy identified (Nerves, Vessels, Muscles), Negative for blood on aspiration, Local anesthetic injected incrementally with intermittent aspiration every 5 mL, Normal resistance with injection, No EKG changes noted, No symptoms of toxicity, Local anesthetic spread visualized around nerves or plane. and Local anesthetic injected without difficultyMedications [id number]-dzxkuqfdvad-lotmrg hrine (TAP) syringe - Injection 60 mL - 03/18/2025 4:50:00 PM [facility] 03-18-2025 Procedure note OPERATIVE NOTE PATIENT NAME: Francisco Ramos : 1950 ATTENDING PHYSICIAN: Bronson Jarrett MD PROCEDURE DATE: 03/18/2025 PREOPERATIVE DIAGNOSIS: Sigmoid volvulus POSTOPERATIVE DIAGNOSIS: Same SURGEON: Bronson Jarrett MD GRAIN BROKER AND MARKET OPERATOR: Yasmin Barry OPERATION: Laparoscopic sigmoid colectomy ANESTHESIA: General ESTIMATED BLOOD LOSS: <50ml COMPLICATIONS: none SPECIMENS: Sigmoid colon and anastomotic rings INDICATIONS: The patient is a 74 y.o. year old male with history of above preop diagnosis. I explained the risk, benefits, expected outcome, and alternatives to the procedure. Patient understands the risks include but not inclusive to bleeding, infection, anesthesia complication, blood vessel/nerve damage, chronic pain, reoperation, and failure of the procedure to obtain its intended goals. Patient understands and is in agreement and would like to proceed. DESCRIPTION OF PROCEDURE: Patient was brought to the operating room and placed in the lithotomy position with arms tucked by their sides and all bony prominences appropriate padded. The patient was intubated by anesthesia. A tap block was performed by the anesthesia team. The rectal tube was removed. The abdomen was prepped with ChloraPrep and the patient was draped in usual sterile fashion. A midline incision was created in a semicircular fashion around the umbilicus extending down inferiorly. We dissected down through subcutaneous tissue using electrocautery. The anterior fascia was then elevated and we entered using electrocautery and got into the abdominal cavity. We then placed a gel point mini and gain insufflation. Upon surveying the abdomen the sigmoid colon was very redundant and it easily twisted upon itself. The rectosigmoid colon was elevated and we made an incision using Enseal device on the right rectosigmoid mesentery to enter the retrorectal plane. We developed that distally and proximally and identified the left ureter and kept that in the retroperitoneal position. We left the ROSALINDA intact. We then divided the rectal mesentery around the level of the sacral promontory to clear off the rectum circumferentially. We then divided the rectum using a 60 mm Endo ROSALBA green load stapler and blue load stapler. We then used Enseal device to divide the colon mesentery close to the colon wall going proximally to our proposed area of transection which was around the area of the descending sigmoid colon where the redundancy terminates. We then desufflated the abdomen and brought the specimen up through the gel point mini. The colon was transected using scissors and the specimen sent off as sigmoid colon. We sewed a pursestring suture and using 0 Prolene in the proximal divided portion of the colon. We then placed a 33 mm anvil in the colon and tied it down with our pursestring. The mesentery of the colon was cleared off using electrocautery. We then returned the colon and anvil back into the abdomen and regained insufflation with our gel point mini. The rectum was then serially dilated. The 33 mm EEA stapler was then placed transanally and the spike was opened up. We then created our Hanna rectal anastomosis. We had to complete anastomotic rings. We then occluded the proximal portion of the anastomosis and submerged the anastomosis under saline. We then performed a flexible sigmoidoscopy and the anastomosis appeared intact and there were no air bubbles seen on leak test. We then suctioned out the fluid from the pelvis and withdrew the flexible sigmoidoscope. The abdomen was then desufflated. GelPort mini was then removed. We changed our gloves. We then proceeded to close the anterior fascia and using 0 PDS. We then closed the skin using 4-0 Monocryl and dressed the incision with Dermabond. Patient was then awoken by anesthesia and transferred to the PACU in stable condition. [facility] 03-18-2025 Procedure note Date: 03/18/2025 Location: [facility] OR Name: Francisco Ramos, : 1950, Diagnosis Pre-op Diagnosis * Sigmoid volvulus (CMS/HCC) (HCC) [K56.2] Post-op Diagnosis * Sigmoid volvulus (CMS/HCC) (HCC) [K56.2] Procedures Laparoscopic single-port sigmoid colectomy with colorectal anastomosis Removal of rectal tube Surgeons * Bronson Jarrett - Primary Procedure Summary Anesthesia: General ASA: III Estimated Blood Loss: Minimal Drains: Urethral Catheter Straight-tip (Active) Specimens ID Source Type Tests Collected By Collected At Frozen? Priority Lab ID 1 Large Intestine, Sigmoid Colon Tissue TISSUE EXAM Bronson Jarrett MD 03/18/25 107 Routine Description: SIGMOID COLON Staff: Form Grader: Joseph Ibarra RN; Nika Schusetr RN Relief Form Grader: Gini Awan RN; Cecilia Tinajero Relief Scrub: Nora Mahmood Scrub Person: Herman Khan RN Findings: See complete op note Complications: None; patient tolerated the procedure well. Specimens Collected: Order Name Source Comment Collection Info Order Time TISSUE EXAM Large Intestine, Sigmoid Colon Collected By: Bronson Jarrett MD 03/18/2025 6:26 PM Wound Class: Class II: Clean-Contaminated Blood Products: None Prophylactic Antibiotics: Procedure appropriate prophylactic antibiotic(s) given within 1 hour of surgical incision (two hours if receiving Vancomycin or flouroquinolone) Cosigned by Bronson Jarrett MD at 03/21/2025 12:18 PM EDT [facility] 03-18-2025 Nurse Note Verified with patients that pt. Had jello and lemon ice yesterday for lunch. [facility] 03-18-2025 Note Patient: Francisco Ramos Procedure Information Date/Time: 03/18/25 1635 Procedure: LAPAROSCOPIC, COLECTOMY, SIGMOID, POSSIBLE OPEN, POSSIBLE OSTOMY CREATION (Abdomen) Location: [facility] OR Operating Room Surgeons: Bronson Jarrett MD Relevant Problems No relevant active problems Past Medical History: Past Medical History: No date: CAD (coronary artery disease) No date: Hyperlipidemia No date: Parkinson disease (HCC) Past Surgical History: No past surgical history on file. Social History: TOBACCO: has no history on file for tobacco use. ETOH: has no history on file for alcohol use. Social History Substance and Sexual Activity Drug Use Not on file Family History: Family History[1] Screening: unknown Clinical information reviewed: Tobacco Allergies Meds Problems Med Hx Surg Hx Fam Hx Soc Hx Physical Exam Airway Mallampati: III Cardiovascular Dental (+) Poor Pulmonary Abdominal Anesthesia Plan patient is NPO appropriate Any family history or previous problems with anesthesia no ASA 3 - emergent general Any family history or previous problems with anesthesia no APRYL Screening Labs: Lab Results Component Value Date WBC 4.6 03/18/2025 HGB 13.9 03/18/2025 HCT 40.2 03/18/2025 MCV 88.9 03/18/2025 PLT 127 (L) 03/18/2025 Lab Results Component Value Date NA 137 03/18/2025 K 3.6 03/18/2025 CL 106 03/18/2025 CO2 24 03/18/2025 BUN 9 03/18/2025 CREATININE 0.75 03/18/2025 GLUCOSE 78 (L) 03/18/2025 CALCIUM 8.6 (L) 03/18/2025 PROT 6.5 03/16/2025 ALKPHOS 67 03/16/2025 AST 26 03/16/2025 ALT 23 03/16/2025 EGFR >90.0 03/18/2025 Pain Score: 0 - No pain No echocardiogram results found for the past 14 days No results found for this or any previous visit. Equipment Requests: Additional Equipment Requests [1] No family history on file. [facility] 03-18-2025 Note OCCUPATIONAL THERAPY [facility] Initial Evaluation Name/MRN: Francisco Ramos ([id number]) Evaluation Date: 03/18/2025 Date of : 1950 Admission Date: 03/16/2025 6:13 AM Age: 74 y.o. [facility]Bed: [facility] Discharge Recommendation: 24 hour supervision or assist Equipment Needed: No (has built in shower bench) Assessment IMPRESSION: 74 y/o male admitted for proctoscopy and rectal tube placement 03/16 d/t abdominal pain and twisted colon. H/o Parkinson's disease and lives with who assists prn at baseline. Pt reports independent with ADLs and mobility with no device. Pt limited this date by incontinence, generalized weakness, and decreased cognition. CGA functional transfers/mobility and min-max assist ADLs. Anticipate home with 24 hour assist at discharge as pt's can provide 24/7 assist for pt. Recommend continued OT services to address deficits during hospital stay. Admitting Diagnosis: Sigmoid volvulus Performance Deficits /Impairments: Decreased Functional Mobility, Decreased ADL status, Decreased Endurance, Decreased Balance, Decreased High Level IADLs, and Decreased Cognition Prognosis: Fair Decision Making: Medium Complexity Subjective Pt lying upright in bed, agreeable to OT. Pt with scrip clerk present. Pain: Pt denies any current pain. Past Medical History: Medical History[1] Past Surgical History: Surgical History[2] Admission Diagnosis: Patient Active Problem List Diagnosis Date Noted Sigmoid volvulus ([facility] ([facility]) 03/16/2025 Medical Precautions: No active isolations Proper PPE donned/doffed in accordance with facility standards. Fall Risk: Perez Fall Risk Score: 75 (High Risk) Precautions/Restrictions: Lines/Drains/Airways: PIV, Rectal Tube Fall Precautions Family/Caregiver Present: spouse and sibling(s) Overall Cognitive Status: Exceptions - Following commands: follows one step commands with increased time and follows one step commands with repetition - Attention span: difficulty attending to directions - Memory: decreased recall of precautions, decreased recall of recent events, and decreased short term memory - Safety judgement: decreased awareness of need for assistance and decreased awareness of need for safety - Problem solving: assistance required to generate solutions and assistance required to implement solutions - Insights: decreased awareness of deficits - Initiation: requires cues for all - Sequencing: requires cues for all Overall Orientation Status: Oriented to Situation, Oriented to Person, and Disoriented to Place Social/Functional History Patient admitted from home. Lives With: Spouse Type of Home: single family home Home Layout: Two Level Home and Able to Live on Main Level Home Access: Level Entry Bathroom Shower/Tub: Walk in Shower, Grab Bars, and built in bench Toilet: Handicap Height and Grab Bars Home Equipment: front wheeled walker and cane Homemaking Responsibilities: Independent Receives Help From: Spouse Active Astronaut Mission Specialist: No Prior Level of Function Prior Level of ADL Function: Independent Prior Level of Mobility: Independent; Device: None Prior Level of Transfers: Independent Objective ADLs LE Dressing: Pt able to reach to pull socks up but once incontinent of stool required total assist to don/doff socks, 2x total Toileting: Max Assist, incontinent of stool multiple times around fecal management system, max assist to cleanup, 4x total. Cues for pt to participate in ken hygiene but limited d/t distraction and continued incontinence Grooming: Supervision, after setup UE Dressing: Mod Assist, to manage around IV pole LUE, 2x total LE Bathing: Max Assist, cleanup of incontinent stool, 3x total Upper Extremity Assessment AROM: WFL PROM: WFL Strength: WFL Bed Mobility Supine to sit: SBA Sit to supine: Min Assist Cues to initiate and sequence. Min assist for BLEs sit to supine. Transfers/Mobility Sit to stand: Contact Guard Stand to sit: Contact Guard Bed to chair: Contact Guard Toilet: Contact Guard Sitting balance: SBA Standing balance: SBA, Contact Guard Functional mobility: Contact Guard Hand held assist to ambulate to/from restroom. Pt stands at toilet to void bladder with CGA. Cues to initiate, sequence, and problem solve as pt attempting to grab FMS. Upon voiding bladder, pt's FMS incontinent all over floor. Encouraged to sit on toilet for cleanup and change of clothing. Attempted to ambulate to bed, incontinent 2x more with a rest break on BSC between bathroom and bed. Assist from PATTERN PAINTER for cleanup and pt safety. Device(s) used: Used therapist for support AM-PAC AM-PAC Inpatient Daily Activity Raw Score: 15 ADL Inpatient CMS G-Code Modifier: CK Plan Pt would benefit from skilled acute OT services to address Strengthening, ROM, Gait Training, Balance Training, Self-Care/ADL Training, Functional Mobility Training, Endurance Training, Safety Edu (more content not included)... [facility] 03-18-2025 Note Formatting of this n ote might be different from the original. Spoke with TCC regarding pt combative behavior with staff and PT recs for [facility], but will wait to discuss possible home care services with pt/family until closer to dc. Community Services Officer following case for Discharge Needs. [facility] 03-18-2025 Note Formatting of this n ote might be different from the original. Spoke with TCC regarding pt combative behavior with staff and PT recs for [facility], but will wait to discuss possible home care services with pt/family until closer to dc. Community Services Officer following case for Discharge Needs. [facility] 03-18-2025 Note Department of [facility] l Surgery Daily Progress Note ADMIT DATE: 03/16/2025 TODAY'S DATE: 03/18/2025 SUBJECTIVE: NAEO. Resting comfortably at bedside, abdomen soft. No family bedside this AM. Pain well controlled. Having flatus and bowel movements through rectal tube. ROS: Noted above unless otherwise mentioned OBJECTIVE: VITALS: Temp: [36.2 ?C (97.2 ?F)-37.1 ?C (98.8 ?F)] 36.8 ?C (98.2 ?F) Heart Rate: [85-97] 88 Resp: [14-20] 14 BP: (114-130)/(62-75) 130/70 INTAKE/OUTPUT: Intake/Output Summary (Last 24 hours) at 03/18/2025 0735 Last data filed at 03/18/2025 0010 Gross per 24 hour Intake 1640 ml Output 300 ml Net 1340 ml I/O last 3 completed shifts: In: 2658.3 (41.9 mL/kg) [I.V.:2658.3 (41.9 mL/kg)] Out: 875 (13.8 mL/kg) [Urine:875 (0.4 mL/kg/hr)] Weight: 63.5 kg No intake/output data recorded. PHYSICAL EXAM: Gen: NAD, A&Ox1, pain well controlled Heart: RRR, well perfused Lungs: symmetric chest rise, normal work of breathing, breath sounds b/l Abd: soft, LLQ mild TTP, less distended than in prior days, Non rigid. Rectal tube in place Ext: no c/c/e no gross deformities Skin: warm, well perfused, no obvious rashes, cellulitis or gross discoloration. LABS CBC: Auto WBC Date Value Ref Range Status 03/18/2025 4.6 3.6 - 10.7 10*3/uL Final 03/17/2025 5.5 3.6 - 10.7 10*3/uL Final 03/16/2025 6.0 3.6 - 10.7 10*3/uL Final Hemoglobin Date Value Ref Range Status 03/18/2025 13.9 13.0 - 18.0 g/dL Final 03/17/2025 14.3 13.0 - 18.0 g/dL Final 03/16/2025 12.9 (L) 13.0 - 18.0 g/dL Final Platelets Date Value Ref Range Status 03/18/2025 127 (L) 140 - 440 10*3/uL Final 03/17/2025 105 (L) 140 - 440 10*3/uL Final 03/16/2025 126 (L) 140 - 440 10*3/uL Final BMP: SODIUM Date Value Ref Range Status 03/18/2025 137 136 - 145 mmol/L Final 03/17/2025 137 136 - 145 mmol/L Final 03/16/2025 137 136 - 145 mmol/L Final POTASSIUM Date Value Ref Range Status 03/18/2025 3.6 3.5 - 5.1 mmol/L Final Comment: Plasma potassium values may be up to 0.5 mmol/L lower than serum values. 03/17/2025 3.8 3.5 - 5.1 mmol/L Final Comment: Plasma potassium values may be up to 0.5 mmol/L lower than serum values. 03/16/2025 3.8 3.5 - 5.1 mmol/L Final Comment: Plasma potassium values may be up to 0.5 mmol/L lower than serum values. CHLORIDE Date Value Ref Range Status 03/18/2025 106 98 - 107 mmol/L Final 03/17/2025 107 98 - 107 mmol/L Final 03/16/2025 110 (H) 98 - 107 mmol/L Final CARBON DIOXIDE Date Value Ref Range Status 03/18/2025 24 23 - 31 mmol/L Final 03/17/2025 22 (L) 23 - 31 mmol/L Final 03/16/2025 23 23 - 31 mmol/L Final UREA NITROGEN Date Value Ref Range Status 03/18/2025 9 9 - 23 mg/dL Final 03/17/2025 13 9 - 23 mg/dL Final 03/16/2025 18 9 - 23 mg/dL Final CREATININE Date Value Ref Range Status 03/18/2025 0.75 0.72 - 1.25 mg/dL Final 03/17/2025 0.76 0.72 - 1.25 mg/dL Final 03/16/2025 0.78 0.72 - 1.25 mg/dL Final Hepatic: AST (SGOT) Date Value Ref Range Status 03/16/2025 26 <34 U/L Final ALT Date Value Ref Range Status 03/16/2025 23 <40 U/L Final ALBUMIN Date Value Ref Range Status 03/16/2025 3.5 3.4 - 4.8 g/dL Final BILIRUBIN, TOTAL Date Value Ref Range Status 03/16/2025 0.5 <1.2 mg/dL Final ALKALINE PHOSPHATASE Date Value Ref Range Status 03/16/2025 67 40 - 150 U/L Final Current Inpatient Medications Scheduled Meds:Scheduled Meds[1] Continuous Infusions:Continuous Meds[2] PRN Meds:PRN Meds[3] ASSESSMENT AND PLAN: 74 y.o. male presenting with sigmoid volvulus, s/p rigid proctoscopy with rectal tube placement 03/16 - Plan for OR today for laparoscopic sigmoid colectomy - will obtain consent - Diet: NPO w/ LR at 100 - serial abdominal exams - miralax BID, rectal tube in place - as needed pain and nausea control - OOBA - DVT ppx with lovenox Will discuss with Dr. Jarrett. Carmen Cassidy MD General Surgery Resident 03/18/25 7:35 AM This note may have been dictated using Voicebase Medical Practice Edition 2.6 and/or [employer] Voice Recognition Feature. The document was proofread; however, unrecognized voice recognition nuclear reactor technician errors may be present. Attending Supervising Physician's Attestation Statement I performed a history and physical examination of the patient and discussed the findings and management with the resident physician. I reviewed and agree with the findings and plan as documented. Delayed entry from date of service: 03/18/25 [1] carbidopa-levodopa, 1 tablet, Oral, BID carbidopa-levodopa, 1.5 tablet, Oral, BID enoxaparin, 40 mg, SubCUTAneous, Daily pantoprazole (ProtoNix) 40 mg in sodium chloride (PF) 0.9 % 10 mL injection, 40 mg, IntraVENous, Daily polyethylene glycol (PEG) 3350, 17 g, Oral, BID [2] lactated Ringer's, 100 mL/hr, Last Rate: 100 mL/hr (03/18/25 0606) [3] PRN medications: HYDROmorphone, naloxone, on (more content not included)... [facility] 03-18-2025 Note Problem: Safety - Non-violent/Interference with Medical Treatment Restraint Goal: Remains free of injury from restraints (Restraint for Interference with Candy Maker) Outcome: Progressing Goal: Free from restraint(s) (Restraint for Interference with Candy Maker) Outcome: Progressing [facility] 03-18-2025 Plan of care note Problem: Safety - Non-violent/Interference with Medical Treatment Restraint Goal: Remains free of injury from restraints (Restraint for Interference with Candy Maker) Outcome: Progressing Goal: Free from restraint(s) (Restraint for Interference with Candy Maker) Outcome: Progressing [facility] 03-17-2025 Note Formatting of this n ote might be different from the original. Care Management Progress Note Short Medical why still here: Patient admitted to H6 s/p rigid proctoscopy with rectal tube insertion 03/16/2025 d/t sigmoid volvulus. Planned Discharge Disposition: (TBD) Barriers/Today we still Wait: Clinical stability, Symptomatic control, Administering IV medications Per TCC chart review patient sx awaiting continued colonic decompression with plan for colectomy. Patient remains NPO, IVF with a visual monitor in place per RN. Length of Stay (Days): 1 GMLOS: No GMLOS Documented [facility] 03-17-2025 Note Formatting of this n ote might be different from the original. Care Management Progress Note Short Medical why still here: Patient admitted to H6 s/p rigid proctoscopy with rectal tube insertion 03/16/2025 d/t sigmoid volvulus. Planned Discharge Disposition: (TBD) Barriers/Today we still Wait: Clinical stability, Symptomatic control, Administering IV medications Per TCC chart review patient sx awaiting continued colonic decompression with plan for colectomy. Patient remains NPO, IVF with a visual monitor in place per RN. Length of Stay (Days): 1 GMLOS: No GMLOS Documented [facility] 03-17-2025 Note Care Management Prog ress Note Short Medical why still here: Patient admitted to H6 s/p rigid proctoscopy with rectal tube insertion 03/16/2025 d/t sigmoid volvulus. Planned Discharge Disposition: (TBD) Barriers/Today we still Wait: Clinical stability, Symptomatic control, Administering IV medications Per TCC chart review patient sx awaiting continued colonic decompression with plan for colectomy. Patient remains NPO, IVF with a visual monitor in place per RN. Length of Stay (Days): 1 GMLOS: No GMLOS Documented [facility] 03-17-2025 Note PHYSICAL THERAPY [facility] Initial Evaluation Name/MRN: Francisco Ramos ([id number]) Evaluation Date: 03/17/2025 Date of : 1950 Admission Date: 03/16/2025 6:13 AM Age: 74 y.o. Room[facility]Bed: [facility] A Discharge Recommendation: 24 hour supervision or assist, Home with Home health PT Equipment Needed: No Assessment IMPRESSION: Patient presents status post proctoscopy and rectal tube placement on 03/16 following transfer from [place] on 03/16 for twisted colon and abdominal pain. Patient and report baseline of independence with all functional mobility and no use of assistive device for ambulation. Patient also has baseline Parkinson's disease that has been present. Patient presents today as SBA for bed mobility, CGA for transfers, CGA for ambulation up to 260 feet with no assistive device. Patient would benefit from skilled PT services to address previously mentioned deficits. At this time patient would be appropriate for home with 24 hour supervision and Home Health PT following discharge. Admitting Diagnosis: Sigmoid volvulus Prognosis: fair Performance Deficits /Impairments: Decreased Functional Mobility, Decreased ADL status, Decreased Strength, Decreased Safety Awareness, Decreased Endurance, Decreased Balance, Decreased Coordination, and Decreased Posture Decision Making: Medium Complexity Subjective Patient supine in bed upon arrival. Patient present for majority of session. Patient agreeable to participate in therapy today. Pain: Pt denies any current pain. Past Medical History: Medical History[1] Past Surgical History: Surgical History[2] Admission Diagnosis: Patient Active Problem List Diagnosis Date Noted Sigmoid volvulus ([facility] ([facility]) 03/16/2025 Medical Precautions: No active isolations Proper PPE donned/doffed in accordance with facility standards. Fall Risk: Perez Fall Risk Score: 50 (High Risk) Precautions/Restrictions: Lines/Drains/Airways: PIV, Rectal Tube Fall Precautions Family/Caregiver Present: spouse Overall Cognitive Status: Exceptions - Memory: decreased short term memory - Safety judgement: decreased awareness of need for assistance - Problem solving: assistance required to identify errors made and assistance required to correct errors made Overall Orientation Status: Oriented to Place, Oriented to Situation, and Oriented to Person Vision: Not Assessed Hearing: normal Social/Functional History Patient admitted from home. Lives With: Spouse Type of Home: single family home Home Layout: Two Level Home and Able to Live on Main Level Home Access: Level Entry Bathroom Shower/Tub: Shower Chair with Back, Walk in Shower, and Grab Bars Toilet: Handicap Height and Grab Bars Home Equipment: front wheeled walker and cane Homemaking Responsibilities: Independent Receives Help From: None, can be with patient for 24 hour assistance if needed and several family members live nearby if additional assistance is needed Active Astronaut Mission Specialist: N/A Prior Level of Function Prior Level of ADL Function: Independent Prior Level of Mobility: Independent; Device: None Prior Level of Transfers: Independent Objective Lower Extremity Assessment AROM: B knee lacks grossly 5 degrees to full extension Strength: B ankle, hip flexion, knee flexion - 5/5 B knee ext 3-/5 Sensation: Patient denies any N/T Balance: Balance During Session: Posture: fair Sitting - Static: Supervision Sitting - Dynamic: Supervision Standing - Static: Contact Guard Standing - Dynamic: Contact Guard Sitting balance at EOB Standing balance in front of bedside and in front of toilet with no assistive devices used Static standing for 2 min, 1 min, 2 min with occasional cueing on proper TRAVIS Dynamic standing with multi directional weightshifting 1x for 20 seconds CGA due to slight postural sway during standing Multiple static standing performed to increase functional strength and endurance. Bed Mobility: Supine to sit: SBA Scooting: SBA Use of bed rail(s) Supine>sit 1x Scooting to EOB 1x Transfers Sit to stand: Contact Guard Stand to sit: Contact Guard Toilet: Contact Guard Sit<>stand from EOB 4x Sit<>stand from toilet 1x Verbal and tactile cueing on proper TRAVIS, proper hand placement to push up from sitting surface, reaching back for sitting surface Ambulation Ambulation 1 Assistive device(s) used: None Assist level: Contact Guard Distance (ft): 130 Quality of gait: shuffling, narrow TRAVIS, slow alvina, path deviations Ambulation 2 Assistive device(s) used: None Assist level: Contact Guard Distance (ft): 130 Quality of gait: narrow TRAVIS, slow alvina, path deviations Ambulation 3 Assistive device(s) used: None Assist level: Contact Guard Distance (ft): 12, 12, 8, 12 Quality of gait: narrow TRAVIS, slow alvina, path deviations Consistent verbal and tactile cueing on wider TRAVIS, correcting path deviations, (more content not included)... [facility] 03-17-2025 Note Department of [facility] Surgery Daily Progress Note ADMIT DATE: 03/16/2025 TODAY'S DATE: 03/17/2025 SUBJECTIVE: Agitation overnight, resolved this AM. Feels much less bloated than in prior days. Pain well controlled. Having flatus and bowel movements through rectal tube. Does not endorse: fevers, chills, nausea, vomiting, shortness of breath or chest pain. ROS: Noted above unless otherwise mentioned OBJECTIVE: VITALS: Temp: [36.3 ?C (97.3 ?F)-37.6 ?C (99.6 ?F)] 36.5 ?C (97.7 ?F) Heart Rate: [85-100] 96 Resp: [16-18] 16 BP: (122-158)/(77-96) 136/90 INTAKE/OUTPUT: Intake/Output Summary (Last 24 hours) at 03/17/2025 0711 Last data filed at 03/17/2025 0700 Gross per 24 hour Intake 1705 ml Output 575 ml Net 1130 ml I/O last 3 completed shifts: In: 1705 (26.8 mL/kg) [I.V.:1705 (26.8 mL/kg)] Out: 375 (5.9 mL/kg) [Urine:375 (0.2 mL/kg/hr)] Weight: 63.5 kg I/O this shift: In: - Out: 200 [Urine:200] PHYSICAL EXAM: Gen: NAD, A&Ox3, pain well controlled Heart: RRR, well perfused Lungs: symmetric chest rise, normal work of breathing, breath sounds b/l Abd: soft, LLQ mild TTP, less distended than in prior days, Non rigid. Rectal tube in place Ext: no c/c/e no gross deformities Skin: warm, well perfused, no obvious rashes, cellulitis or gross discoloration. LABS CBC: Auto WBC Date Value Ref Range Status 03/17/2025 5.5 3.6 - 10.7 10*3/uL Final 03/16/2025 6.0 3.6 - 10.7 10*3/uL Final Hemoglobin Date Value Ref Range Status 03/17/2025 14.3 13.0 - 18.0 g/dL Final 03/16/2025 12.9 (L) 13.0 - 18.0 g/dL Final Platelets Date Value Ref Range Status 03/17/2025 105 (L) 140 - 440 10*3/uL Final 03/16/2025 126 (L) 140 - 440 10*3/uL Final BMP: SODIUM Date Value Ref Range Status 03/17/2025 137 136 - 145 mmol/L Final 03/16/2025 137 136 - 145 mmol/L Final POTASSIUM Date Value Ref Range Status 03/17/2025 3.8 3.5 - 5.1 mmol/L Final Comment: Plasma potassium values may be up to 0.5 mmol/L lower than serum values. 03/16/2025 3.8 3.5 - 5.1 mmol/L Final Comment: Plasma potassium values may be up to 0.5 mmol/L lower than serum values. CHLORIDE Date Value Ref Range Status 03/17/2025 107 98 - 107 mmol/L Final 03/16/2025 110 (H) 98 - 107 mmol/L Final CARBON DIOXIDE Date Value Ref Range Status 03/17/2025 22 (L) 23 - 31 mmol/L Final 03/16/2025 23 23 - 31 mmol/L Final UREA NITROGEN Date Value Ref Range Status 03/17/2025 13 9 - 23 mg/dL Final 03/16/2025 18 9 - 23 mg/dL Final CREATININE Date Value Ref Range Status 03/17/2025 0.76 0.72 - 1.25 mg/dL Final 03/16/2025 0.78 0.72 - 1.25 mg/dL Final Hepatic: AST (SGOT) Date Value Ref Range Status 03/16/2025 26 <34 U/L Final ALT Date Value Ref Range Status 03/16/2025 23 <40 U/L Final ALBUMIN Date Value Ref Range Status 03/16/2025 3.5 3.4 - 4.8 g/dL Final BILIRUBIN, TOTAL Date Value Ref Range Status 03/16/2025 0.5 <1.2 mg/dL Final ALKALINE PHOSPHATASE Date Value Ref Range Status 03/16/2025 67 40 - 150 U/L Final Current Inpatient Medications Scheduled Meds:Scheduled Meds[1] Continuous Infusions:Continuous Meds[2] PRN Meds:PRN Meds[3] ASSESSMENT AND PLAN: 74 y.o. male presenting with sigmoid volvulus, s/p rigid proctoscopy with rectal tube placement 03/16 - Continuing to have colonic decompression with rectal tube in place, will plan for interval laparoscopic sigmoid colectomy later this admission after continued decompression - Diet: NPO w/ LR at 100 - serial abdominal exams - miralax BID - as needed pain and nausea control - OOBA - DVT ppx with lovenox Will discuss with Dr. Jarrett. Carmen Cassidy MD General Surgery Resident 03/17/25 7:11 AM This note may have been dictated using siOPTICA Practice Edition 2.6 and/or [employer] Voice Recognition Feature. The document was proofread; however, unrecognized voice recognition nuclear reactor technician errors may be present. Attending Supervising Physician's Attestation Statement I performed a history and physical examination of the patient and discussed the findings and management with the resident physician. I reviewed and agree with the findings and plan as documented. Date of service is 03/17/2025 Plan for bowel prep today. Plan for laparoscopic sigmoid colectomy tomorrow. Plan discussed with patient and his at bedside. Details and risks of surgery are discussed including the risks of: bleeding, infection, abscess, anastomotic leak, possible need for re-operation or ostomy, bowel injury, ureteral injury, vascular or nerve injury, prolonged healing, wound problems, and expected functional results. He and his indicates understanding and wishes to proceed with surgery. [1] carbidopa-levodopa, 1 tablet, Oral, BID carbidopa-levodopa, 1.5 tablet, Oral, BID enoxaparin, 40 mg, SubCUTAneous, Daily pantoprazole (ProtoNix) 40 mg in sodium chloride (PF) 0.9 (more content not included)... [facility] 03-16-2025 Nurse Note Around 1829 patient chair alarm was going off, I responded and tried to assist patient back into the chair but patient was not properly responsive to my requests and began to get agitated even after I called his and had him speak with his over the phone. Dayana Means, NA came into the room to assist me to get the patient back to bed since he would not listen to sit back into the chair. Patient began to try and walk away from us fast. We were able to keep him from going too far by redirection and holding onto his arms. We explained he was a high fall risk due to his IV and catheter sutured into his rectum. Patient continued to be defiant and not listen trying to pull away from us with force. I called out for help. JOSÉ LUIS Madrid, JOSÉ LUIS [place], and MARCELL Gonzalez came to our aid. Dr. Escudero with gen surg was contacted for new agitation, one time dose of haldol was ordered. Security was called to come in case we needed assistance to get him back to bed. Dayana was holding his hand on his hand to help guide him to the bed. I gave him the IM injection of haldol and patient became aggressive and started squeezing Dayana's fingers. Mercy had to pry patients hand off of Dayana's fingers. Security walked in at this time as patient was starting to escalate and tried to kick at Jacinda. Security assisted us to get him safely into the bed and restrain him. Dayana immediately sent to ice her fingers in tears from pain and shock. The officers took information to fill out an incident report and witnesses reports were filled out as well. Nikki Aguilar RN supervisor [employer] was notified of the incident. [facility] 03-16-2025 Note Procedure: Rectal ex am, rigid proctoscopy, and rectal tube placement The risks and benefits of the bedside procedure were discussed with the patient and (via phone). All questions were answered. Patient and amenable to procedure. Consent was verbally obtained over the phone by pt's since pt has a known memory deficit. First, the patient was turned onto his right side. External exam of rectum was unremarkable. A JAELYN was performed without evidence of palpable masses. The rigid proctoscopy was inserted into the patient's rectum and both flatus and liquid stool were expelled. When utilizing the rigid proctoscope to visualize the mucosa, the mucosa appeared pink and well perfused. A 24 Fr rectal tube was placed which expelled more flatus and liquid stool. The rectal tube was sutured in to place with one 0 silk suture. The rectal tube was hooked up to a barbosa catheter bag to collect the stool drainage. The patient was cleaned and overall tolerated the procedure well without any immediate complications. His abdomen felt less distended after the procedure, and he endorsed feeling better. The rectal tube will remain in place to allow for decompression of his colon prior to surgical management of sigmoid volvulus. Ordered a 2 view AXR s/p tube placement. Both Dr. Barry (PGY-4 general surgery resident) and Dr. Jarrett (colorectal surgeon) were present for the entirety of the procedure and readily available to help Stacy Burroughs MD General Surgery Resident, PGY-1 [facility] 03-16-2025 Emergency department Note Received report from JOSÉ LUIS Mujica [facility] 03-16-2025 Emergency department Note Received report from JOSÉ LUIS Mujica EMERGENCY DEPARTMENT ENCOUNTER Pt Name: Francisco Ramos Birthdate 1950 Date of evaluation: 03/16/2025 ED Provider: Jameel Barraza DO CHIEF COMPLAINT Chief Complaint Patient presents with Abdominal Pain Transfer from [facility] for Colonoscopy due to a twisted colon. Pt reports that his symptoms began a few hours ago. Denies any N/V/D. Pt is A&ox 3. Denies any other complaints at this time. HISTORY OF PRESENT ILLNESS (Location/Symptom, Timing/Onset, Context/Setting, Quality, Duration, Modifying Factors, Severity) Note limiting factors. I wore appropriate PPE for the entirety of this encounter. HPI Francisco Ramos is a 74 y.o. male pmhx Parkinson's disease, CAD, HLD, memory issues who presents to the emergency department by ED transfer from [facility] ED for abd pain. Workup at [place] revealed sigmoid volvulus. Pt unable to remember details due to memory loss but able to state pain started about 4 hours ago and was generalized. Current pain is 3/10. Pt denies any fevers, chills, cp, sob, n/v/d, hematochezia. Has been eating and drinking well recently.Pt reports he is comfortable and does not require pain meds at this time. Nursing Notes were reviewed. Limitations to history: Altered mental status/confusion Outside historians: EMS REVIEW OF SYSTEMS Review of Systems Pertinent Positive and Negatives listed in HPI PAST MEDICAL HISTORY Medical History[1] SURGICAL HISTORY Surgical History[2] CURRENT MEDICATIONS Current Discharge Medication List CONTINUE these medications which have NOT CHANGED Details carbidopa-levodopa (Parcopa) 25-250 MG disintegrating tablet Take 1 tablet by mouth 4 times daily. Take 1 and 1/2 tab at 6am. 1 tab at 10am. 1 and 1/2 tab at 2pm. 1 tab at 6pm ALLERGIES Seasonal FAMILY HISTORY Family History[3] SOCIAL HISTORY Social History[4] SCREENINGS Cody Coma Scale Best Eye Response: Spontaneous Best Verbal Response: Oriented Best Motor Response: Follows commands Cody Coma Scale Score: 15 PHYSICAL EXAM ED Triage Vitals Temp Pulse Resp BP -- -- -- -- SpO2 Temp src Heart Rate Source Patient Position -- -- -- -- BP Location FiO2 (%) -- -- Physical Exam Constitutional: General: He is not in acute distress. HENT: Head: Normocephalic and atraumatic. Cardiovascular: Rate and Rhythm: Normal rate. Heart sounds: Normal heart sounds. Pulmonary: Effort: Pulmonary effort is normal. Breath sounds: Normal breath sounds. Abdominal: General: There is distension. Palpations: Abdomen is soft. Tenderness: There is no abdominal tenderness. Neurological: Mental Status: He is alert. DIAGNOSTIC RESULTS RADIOLOGY (Per Emergency Physician): Interpretation per the Radiologist below, if available at the time of this note: XR abdomen 2 views supine and decubitus Final Result Rectal tube placement. Improved sigmoid colon distention. Mildly dilated proximal colon, possibly ileus, with a moderate to large amount of colonic stool. Report Dictated on Electronically Signed By: Sebastian Díaz MD Electronically Signed Date/Time: 03/16/2025 12:[address] abdomen pelvis w contrast Final Result 1. Redundant and tortuous sigmoid colon with swirling of mesenteric vessels. Two areas of luminal narrowing in the sigmoid colon with colonic distention. Findings could be due to large bowel obstruction including volvulus. Consider endoscopic follow-up after resolution of the acute symptoms to exclude an underlying lesion. 2. Mural thickening in the rectum with adjacent fat stranding compatible with proctitis. 3. Moderate to large stool throughout the colon. Consider constipation. Mild dilation of the proximal colon may be due to ileus. 4. Splenomegaly. 5. Prostatomegaly. CRITICAL TEST RESULT COMMUNICATION: Notification of these findings was made to JAMEEL BARRAZA via [facility] Secure Chat on 03/16/2025 8:35 AM EDT. Report Dictated on Electronically Signed By: Sebastian Díaz MD Electronically Signed Date/Time: 03/16/2025 8:35 AM EDT LABS: Labs Reviewed CBC WITH AUTO DIFFERENTIAL - Abnormal Result Value Auto WBC 6.0 RBC 4.21 (*) Hemoglobin 12.9 (*) Hematocrit 38.8 (*) MCV 92.2 MCH 30.6 MCHC 33.2 RDW 13.0 Platelets 126 (*) MPV 10.8 nRBC 0.0 Neutrophils Relative 75.6 Lymphocytes Relative 13.6 (*) Monocytes Relative 10.5 Eosinophils Relative 0.0 Basophils Relative 0.0 Immature Grans % 0.3 Neutrophils Absolute 4.5 Lymphocytes Absolute 0.8 (*) Monocytes Absolute 0.6 Eosinophils Absolute 0.0 Basophils Absolute 0.0 Immature Grans Absolute 0.0 IPF 4 COMPREHENSIVE METABOLIC PANEL - Abnormal SODIUM 137 POTASSIUM 3.8 CHLORIDE 110 (*) CARBON DIOXIDE 23 ANION GAP 4 UREA NITROGEN 18 CREATININE 0.78 GLUCOSE 100 CALCIUM 8.5 (*) AST (SGOT) 26 ALT 23 ALKALINE PHOSPHATASE 67 ALBUMIN 3.5 BILIRUBIN, TOTAL 0.5 TOTAL PROTEIN 6.5 eGFR >90.0 LIPASE - Normal LIPASE 11 LACTIC ACID WITH REFLEX - Normal LACTIC ACID 0.6 All other labs were within normal range or not returned as of this dictation. EMERGENCY DEPARTMENT COURSE and DIFFERENTIAL DIAGNOSIS/MDM: Vitals: Vitals: 03/16/25 0739 03/16/25 0811 03/16/25 0902 03/16/25 1115 BP: 128/77 122/80 (!) 141/84 135/78 BP Location: Right arm Right arm Right arm Right arm Patient Position: Lying Lying Lying Sitting Pulse: 85 100 98 99 Resp: 16 18 16 18 Temp: 37.6 C (99.6 F) TempSrc: Temporal SpO2: 99% 99% 97% 95% Weight: Height: The patient presented with a chief complaint of abdominal pain for one day. Transferred from [facility] ED for sigmoid volvulus. Pt currently not in acute distress, mildly distended abdomen, pain 3/10. The differential diagnosis associated with this patient's presentation includes obstruction, colitis, volvulus, constipation. Our workup consisted of ordering/reviewing CBC, CMP, Lipase, Lactic acid, CT abdomen w con. CBC without acute infectious process. CMP without acute abnormality. Lipase normal. Lactic normal. CT abdomen pelvis reveals Redundant and tortuous sigmoid colon with swirling of mesenteric vessels. Two areas of luminal narrowing in the sigmoid colon with colonic distention. Spoke with Yasmin in surgery who will see patient. On reassessment, patient is in stable condition not requiring any pain medication. Patient will be admitted to surgery Dr. Jarrett. Diagnoses as of 03/16/25 1507 Sigmoid volvulus (CMS/HCC) (HCC) External records reviewed: External ED note [facility] Diagnostics interpreted by me: Discussions with other clinicians: Remote Control Assembler Surgery Resident Chronic conditions impacting care: Social determinants of health affecting care: ED Medications managed: Medications sodium chloride 0.9 % infusion (125 mL/hr IntraVENous Handoff 03/16/25 1050) polyethylene glycol (PEG) 3350 (Miralax) packet 17 g (17 g Oral Given 03/16/25 1115) enoxaparin (Lovenox) syringe 40 mg (40 mg SubCUTAneous Given 03/16/25 1134) lactated Ringer's (LR) infusion (100 mL/hr IntraVENous New Bag 03/16/25 1127) ondansetron ODT (Zofran-ODT) disintegrating tablet 4 mg (has no administration in time range) Or ondansetron (Zofran) injection 4 mg (has no administration in time range) pantoprazole (ProtoNix) 40 mg in sodium chloride (PF) 0.9 % 10 mL injection (40 mg IntraVENous Given 03/16/25 1134) oxyCODONE (Roxicodone) immediate release tablet 5 mg (has no administration in time range) Or oxyCODONE (Roxicodone) immediate release tablet 10 mg (has no administration in time range) HYDROmorphone (Dilaudid) injection 0.5 mg (has no administration in time range) naloxone (Narcan) injection 0.4 mg (has no administration in time range) iopamidol (Isovue-370) 76 % injection 75 mL (75 mL IntraVENous Given 03/16/25 8439) Prescription drugs considered: PROCEDURES: Unless otherwise noted below, none Procedures FINAL IMPRESSION 1. Sigmoid volvulus (CMS/HCC) (HCC) DISPOSITION Admit 03/16/2025 09:51:07 AM PATIENT REFERRED TO: No follow-up provider specified. DISCHARGE MEDICATIONS: Current Discharge Medication List (Comment: Please note this report has been produced using speech recognition software and may contain errors related to that system including errors in grammar, punctuation, and spelling, as well as words and phrases that may be inappropriate. If there are any questions or concerns please feel free to contact the dictating provider for clarification.) Jameel Barraza DO (electronically signed) Emergency Medicine Provider [1] History reviewed. No pertinent past medical history. [2] History reviewed. No pertinent surgical history. [3] No family history on file. [4] Social History Socioeconomic History Marital status: Jameel Barraza DO Resident 03/16/25 1508 Cosigned by Bhanu Hunter DO at 03/16/2025 3:36 PM EDT Emergency Department Encounter [facility] PCU H6 Patient: Francisco Ramos : 1950 Date of Evaluation: 03/16/2025 ED Supervising Physician: Bhanu Hunter DO I personally evaluated Francisco Ramos and made/approved the management plan and take responsibility for the patient management. This will serve as my Supervisory note and shared attestation. I did perform a substantive portion of the visit including all aspects of the Medical Decision Making. I wore appropriate PPE for the entirety of this encounter. In brief, Francisco Ramos is a 74 y.o. that presents to the emergency department with chief complaint of abdominal pain. Located primarily in the lower abdomen. Was seen at [facility] initially and there he underwent CT imaging that showed sigmoid volvulus. Transferred for further surgical evaluation. Since arriving to this hospital, he is denying any nausea, vomiting, or diarrhea. Does note pain primarily with palpation of the abdomen. No other complaints. Focused exam: Alert and oriented x 3. Heart is regular rate and rhythm. Lungs to auscultation bilaterally. Abdomen soft. Moderate distention noted. Tenderness to palpation left lower quadrant. No rebound or guarding. Brief ED course/MDM: Patient presents with known diagnosis sigmoid volvulus. Outside imaging report reviewed. CT is repeated for further evaluation. Lactic acid level also obtained. Patient otherwise hemodynamically stable. No significant lactic acidosis. CT does redemonstrate sigmoid volvulus. Will be admitted to surgery service. All diagnostic, treatment, and disposition decisions were made by myself in conjunction with the Resident. I also supervised munoz portions of any procedures performed by the Resident. For all further details of the patient's emergency department visit, please see their documentation. (Comment: Please note this report has been produced using speech recognition software and may contain errors related to that system including errors in grammar, punctuation, and spelling, as well as words and phrases that may be inappropriate. If there are any questions or concerns please feel free to contact the dictating provider for clarification.) Bhanu Hunter DO Acute Care [facility] Bhanu Hunter DO 03/16/25 1545 documented in this encounter [facility] 03-16-2025 History and physical note Images from the original note were not included. Department of General Surgery Surgical Service - CRS Resident Consult Note 03/16/2025 CHIEF COMPLAINT: Chief Complaint Patient presents with Abdominal Pain Transfer from [facility] for Colonoscopy due to a twisted colon. Pt reports that his symptoms began a few hours ago. Denies any N/V/D. Pt is A&ox 3. Denies any other complaints at this time. Reason for Consult: sigmoid volvulus HISTORY OF PRESENT ILLNESS: Francisco Ramos is a 74 y.o. male with significant past medical history of Parkinson's dementia, constipation, and ?prior sigmoid volvulus managed non-operative,y who presents as a transfer from [facility] for abdominal distention and pain. Surgery was consulted for evaluation of sigmoid volvulus. Patient states he had been at [facility] for his presenting symptoms. There, he had undergone imaging which showed concern of sigmoid volvulus. He was transferred for further management. He reports uncertain exactly when he last had BM, thinks yesterday, but normally goes a few days without BM. Uncertain last flatus. Feels slightly bloated compared to baseline. Denies significant abdominal pain. He reports he thinks last c-scope was ~1 year ago. On evaluation patient was AF, VSS. Labs reviewed significant for: no leukocytosis, hgb 12.9, plt 126. LA 0.6. BMP largely WNL. Imaging demonstrated sigmoid colonic dilation and swirling of the mesentery, rectal wall thickening. Medical History[1] Surgical History[2] Medications Prior to Admission: Medications Ordered Prior to Encounter[3] Allergies: Seasonal Social History[4] Family History[5] REVIEW OF SYSTEMS: Review of Systems Constitutional: Negative for chills and fever. Gastrointestinal: Positive for abdominal distention. Negative for abdominal pain, nausea and vomiting. All other systems reviewed and are negative. PHYSICAL EXAM: Vitals: 03/16/25 0620 BP: 136/79 Pulse: 89 Resp: 16 Temp: 36.8 C (98.2 F) SpO2: 100% No intake/output data recorded. CONSTITUTIONAL: awake, alert, cooperative, no apparent distress NECK: Supple, symmetrical, trachea midline, no adenopathy LUNGS: No increased work of breathing, good air exchange CARDIOVASCULAR: Regular rate and rhythm ABDOMEN: Soft, distended, minimal TTP in lower abdomen. JAELYN w/o palpable mass. CHEST: no masses palpated, no axillary or supraclavicular adenopathy GENITAL/URINARY: Not examined MUSCULOSKELETAL: There is no redness, warmth, or swelling of the joints. Full range of motion noted. NEUROLOGIC: Awake, alert, baseline mild confusion (dementia). SKIN: normal skin color, texture, no redness, warmth, or swelling Rigid sig: normal pink mucosa. No ischemia. Scope advanced up to 25cm proximal. 24 fr chest tube placed and stitched to skin with silk. Good return of air and stool with improvement in abd distention. DATA: CBC: No results found for: WBC, RBC, HGB, HCT, MCV, MCH, MCHC, RDW, PLT, MPV BMP: No results found for: NA, K, CL, CO2, BUN, CREATININE, CALCIUM, LABGLOM, GLUCOSE, GLU Hepatic Function Panel: No results found for: ALKPHOS, ALT, AST, PROT, BILITOT, BILIDIR PT/INR: No results found for: PROTIME, INR Troponin: No results found for: TROPONINI LIPASE: No results found for: LIPASE IMAGING: No image results found. ASSESSMENT AND PLAN: This is a 74 y.o. male with sigmoid volvulus, reportedly 2nd episode. - Will plan for admission to [facility] - NPO, mIVF - Rectal exam, rigid proctoscopy, and rectal tube placement - see separate procedure note Continue tube drainage to barbosa bag - Will obtain stat 2 view AXR s/p tube placement - Serial abd exams - Will require sigmoid colectomy this admission Patient discussed with attending, Dr. Jarrett. Yasmin Barry MD General Surgery PGY-4 03/16/25 6:50 AM Pager # [phone] This note may have been dictated using Voicebase Medical Practice Edition 2.6 and/or Teles[employer] Voice Recognition Feature. The document was proofread; however, unrecognized voice recognition nuclear reactor technician errors may be present. Attending Supervising Physician's Attestation Statement I performed a history and physical examination of the patient and discussed the findings and management with the resident physician. I reviewed and agree with the findings and plan as documented. Date of service is 03/16/2025 [1] No past medical history on file. [2] No past surgical history on file. [3] No current facility-administered medications for this encounter. No current outpatient medications on file. [4] Social History Socioeconomic History Marital status: [5] No family history on file. [facility] 03-16-2025 Note Department of [facility] Surgery Surgical Service - CRS Resident Consult Note 03/16/2025 CHIEF COMPLAINT: Chief Complaint Patient presents with Abdominal Pain Transfer from [facility] for Colonoscopy due to a twisted colon. Pt reports that his symptoms began a few hours ago. Denies any N/V/D. Pt is A&ox 3. Denies any other complaints at this time. Reason for Consult: sigmoid volvulus HISTORY OF PRESENT ILLNESS: Francisco Ramos is a 74 y.o. male with significant past medical history of Parkinson's dementia, constipation, and ?prior sigmoid volvulus managed non-operative,y who presents as a transfer from [place] for abdominal distention and pain. Surgery was consulted for evaluation of sigmoid volvulus. Patient states he had been at [facility] for his presenting symptoms. There, he had undergone imaging which showed concern of sigmoid volvulus. He was transferred for further management. He reports uncertain exactly when he last had BM, thinks yesterday, but normally goes a few days without BM. Uncertain last flatus. Feels slightly bloated compared to baseline. Denies significant abdominal pain. He reports he thinks last c-scope was ~1 year ago. On evaluation patient was AF, VSS. Labs reviewed significant for: no leukocytosis, hgb 12.9, plt 126. LA 0.6. BMP largely WNL. Imaging demonstrated sigmoid colonic dilation and swirling of the mesentery, rectal wall thickening. Medical History[1] Surgical History[2] Medications Prior to Admission: Medications Ordered Prior to Encounter[3] Allergies: Seasonal Social History[4] Family History[5] REVIEW OF SYSTEMS: Review of Systems Constitutional: Negative for chills and fever. Gastrointestinal: Positive for abdominal distention. Negative for abdominal pain, nausea and vomiting. All other systems reviewed and are negative. PHYSICAL EXAM: Vitals: 03/16/25 0620 BP: 136/79 Pulse: 89 Resp: 16 Temp: 36.8 ?C (98.2 ?F) SpO2: 100% No intake/output data recorded. CONSTITUTIONAL: awake, alert, cooperative, no apparent distress NECK: Supple, symmetrical, trachea midline, no adenopathy LUNGS: No increased work of breathing, good air exchange CARDIOVASCULAR: Regular rate and rhythm ABDOMEN: Soft, distended, minimal TTP in lower abdomen. JAELYN w/o palpable mass. CHEST: no masses palpated, no axillary or supraclavicular adenopathy GENITAL/URINARY: Not examined MUSCULOSKELETAL: There is no redness, warmth, or swelling of the joints. Full range of motion noted. NEUROLOGIC: Awake, alert, baseline mild confusion (dementia). SKIN: normal skin color, texture, no redness, warmth, or swelling Rigid sig: normal pink mucosa. No ischemia. Scope advanced up to 25cm proximal. 24 fr chest tube placed and stitched to skin with silk. Good return of air and stool with improvement in abd distention. DATA: CBC: No results found for: WBC, RBC, HGB, HCT, MCV, MCH, MCHC, RDW, PLT, MPV BMP: No results found for: NA, K, CL, CO2, BUN, CREATININE, CALCIUM, LABGLOM, GLUCOSE, GLU Hepatic Function Panel: No results found for: ALKPHOS, ALT, AST, PROT, BILITOT, BILIDIR PT/INR: No results found for: PROTIME, INR Troponin: No results found for: TROPONINI LIPASE: No results found for: LIPASE IMAGING: No image results found. ASSESSMENT AND PLAN: This is a 74 y.o. male with sigmoid volvulus, reportedly 2nd episode. - Will plan for admission to [facility] - NPO, mIVF - Rectal exam, rigid proctoscopy, and rectal tube placement - see separate procedure note Continue tube drainage to barbosa bag - Will obtain stat 2 view AXR s/p tube placement - Serial abd exams - Will require sigmoid colectomy this admission Patient discussed with attending, Dr. Jarrett. Yasmin Barry MD General Surgery PGY-4 03/16/25 6:50 AM Pager # [phone] This note may have been dictated using Voicebase Medical Practice Edition 2.6 and/or [employer] Voice Recognition Feature. The document was proofread; however, unrecognized voice recognition nuclear reactor technician errors may be present. Attending Supervising Physician's Attestation Statement I performed a history and physical examination of the patient and discussed the findings and management with the resident physician. I reviewed and agree with the findings and plan as documented. Date of service is 03/16/2025 [1] No past medical history on file. [2] No past surgical history on file. [3] No current facility-administered medications for this encounter. No current outpatient medications on file. [4] Social History Socioeconomic History Marital status: [5] No family history on file. [facility] 03-16-2025 History and physical note Images from the original note were not included. Department of General Surgery Surgical Service - [facility] Resident Consult Note 03/16/2025 CHIEF COMPLAINT: Chief Complaint Patient presents with Abdominal Pain Transfer from [facility] for Colonoscopy due to a twisted colon. Pt reports that his symptoms began a few hours ago. Denies any N/V/D. Pt is A&ox 3. Denies any other complaints at this time. Reason for Consult: sigmoid volvulus HISTORY OF PRESENT ILLNESS: Francisco Ramos is a 74 y.o. male with significant past medical history of Parkinson's dementia, constipation, and ?prior sigmoid volvulus managed non-operative,y who presents as a transfer from [place] for abdominal distention and pain. Surgery was consulted for evaluation of sigmoid volvulus. Patient states he had been at [facility] for his presenting symptoms. There, he had undergone imaging which showed concern of sigmoid volvulus. He was transferred for further management. He reports uncertain exactly when he last had BM, thinks yesterday, but normally goes a few days without BM. Uncertain last flatus. Feels slightly bloated compared to baseline. Denies significant abdominal pain. He reports he thinks last c-scope was ~1 year ago. On evaluation patient was AF, VSS. Labs reviewed significant for: no leukocytosis, hgb 12.9, plt 126. LA 0.6. BMP largely WNL. Imaging demonstrated sigmoid colonic dilation and swirling of the mesentery, rectal wall thickening. Medical History[1] Surgical History[2] Medications Prior to Admission: Medications Ordered Prior to Encounter[3] Allergies: Seasonal Social History[4] Family History[5] REVIEW OF SYSTEMS: Review of Systems Constitutional: Negative for chills and fever. Gastrointestinal: Positive for abdominal distention. Negative for abdominal pain, nausea and vomiting. All other systems reviewed and are negative. PHYSICAL EXAM: Vitals: 03/16/25 0620 BP: 136/79 Pulse: 89 Resp: 16 Temp: 36.8 C (98.2 F) SpO2: 100% No intake/output data recorded. CONSTITUTIONAL: awake, alert, cooperative, no apparent distress NECK: Supple, symmetrical, trachea midline, no adenopathy LUNGS: No increased work of breathing, good air exchange CARDIOVASCULAR: Regular rate and rhythm ABDOMEN: Soft, distended, minimal TTP in lower abdomen. JAELYN w/o palpable mass. CHEST: no masses palpated, no axillary or supraclavicular adenopathy GENITAL/URINARY: Not examined MUSCULOSKELETAL: There is no redness, warmth, or swelling of the joints. Full range of motion noted. NEUROLOGIC: Awake, alert, baseline mild confusion (dementia). SKIN: normal skin color, texture, no redness, warmth, or swelling Rigid sig: normal pink mucosa. No ischemia. Scope advanced up to 25cm proximal. 24 fr chest tube placed and stitched to skin with silk. Good return of air and stool with improvement in abd distention. DATA: CBC: No results found for: WBC, RBC, HGB, HCT, MCV, MCH, MCHC, RDW, PLT, MPV BMP: No results found for: NA, K, CL, CO2, BUN, CREATININE, CALCIUM, LABGLOM, GLUCOSE, GLU Hepatic Function Panel: No results found for: ALKPHOS, ALT, AST, PROT, BILITOT, BILIDIR PT/INR: No results found for: PROTIME, INR Troponin: No results found for: TROPONINI LIPASE: No results found for: LIPASE IMAGING: No image results found. ASSESSMENT AND PLAN: This is a 74 y.o. male with sigmoid volvulus, reportedly 2nd episode. - Will plan for admission to [facility] - NPO, mIVF - Rectal exam, rigid proctoscopy, and rectal tube placement - see separate procedure note Continue tube drainage to barbosa bag - Will obtain stat 2 view AXR s/p tube placement - Serial abd exams - Will require sigmoid colectomy this admission Patient discussed with attending, Dr. Jarrett. Yasmin Barry MD General Surgery PGY-4 03/16/25 6:50 AM Pager # [phone] This note may have been dictated using si[employer]ICA Practice Edition 2.6 and/or [employer]elesocial Voice Recognition Feature. The document was proofread; however, unrecognized voice recognition nuclear reactor technician errors may be present. Attending Supervising Physician's Attestation Statement I performed a history and physical examination of the patient and discussed the findings and management with the resident physician. I reviewed and agree with the findings and plan as documented. Date of service is 03/16/2025 [1] No past medical history on file. [2] No past surgical history on file. [3] No current facility-administered medications for this encounter. No current outpatient medications on file. [4] Social History Socioeconomic History Marital status: [5] No family history on file. documented in this encounter [facility] 03-16-2025 Note Emergency Department Encounter [facility] Patient: Francisco Ramos : 1950 Date of Evaluation: 03/16/2025 ED Supervising Physician: Bhanu Hunter DO I personally evaluated Francisco Ramos and made/approved the management plan and take responsibility for the patient management. This will serve as my Supervisory note and shared attestation. I did perform a substantive portion of the visit including all aspects of the Medical Decision Making. I wore appropriate PPE for the entirety of this encounter. In brief, Francisco Ramos is a 74 y.o. that presents to the emergency department with chief complaint of abdominal pain. Located primarily in the lower abdomen. Was seen at [facility] initially and there he underwent CT imaging that showed sigmoid volvulus. Transferred for further surgical evaluation. Since arriving to this hospital, he is denying any nausea, vomiting, or diarrhea. Does note pain primarily with palpation of the abdomen. No other complaints. Focused exam: Alert and oriented x 3. Heart is regular rate and rhythm. Lungs to auscultation bilaterally. Abdomen soft. Moderate distention noted. Tenderness to palpation left lower quadrant. No rebound or guarding. Brief ED course/MDM: Patient presents with known diagnosis sigmoid volvulus. Outside imaging report reviewed. CT is repeated for further evaluation. Lactic acid level also obtained. Patient otherwise hemodynamically stable. No significant lactic acidosis. CT does redemonstrate sigmoid volvulus. Will be admitted to surgery service. All diagnostic, treatment, and disposition decisions were made by myself in conjunction with the Resident. I also supervised munoz portions of any procedures performed by the Resident. For all further details of the patient's emergency department visit, please see their documentation. (Comment: Please note this report has been produced using speech recognition software and may contain errors related to that system including errors in grammar, punctuation, and spelling, as well as words and phrases that may be inappropriate. If there are any questions or concerns please feel free to contact the dictating provider for clarification.) Bhanu Hunter DO Acute Care [facility] Bhanu Hunter DO 03/16/25 1545 [facility] 03-16-2025 Physician Emergency department Note EMERGENCY DEPARTMENT ENCOUNTER Pt Name: Francisco Ramos Birthdate 1950 Date of evaluation: 03/16/2025 ED Provider: Jameel Barraza DO CHIEF COMPLAINT Chief Complaint Patient presents with Abdominal Pain Transfer from [facility] for Colonoscopy due to a twisted colon. Pt reports that his symptoms began a few hours ago. Denies any N/V/D. Pt is A&ox 3. Denies any other complaints at this time. HISTORY OF PRESENT ILLNESS (Location/Symptom, Timing/Onset, Context/Setting, Quality, Duration, Modifying Factors, Severity) Note limiting factors. I wore appropriate PPE for the entirety of this encounter. HPI Francisco Ramos is a 74 y.o. male pmhx Parkinson's disease, CAD, HLD, memory issues who presents to the emergency department by ED transfer from [facility] ED for abd pain. Workup at [facility] revealed sigmoid volvulus. Pt unable to remember details due to memory loss but able to state pain started about 4 hours ago and was generalized. Current pain is 3/10. Pt denies any fevers, chills, cp, sob, n/v/d, hematochezia. Has been eating and drinking well recently.Pt reports he is comfortable and does not require pain meds at this time. Nursing Notes were reviewed. Limitations to history: Altered mental status/confusion Outside historians: EMS REVIEW OF SYSTEMS Review of Systems Pertinent Positive and Negatives listed in HPI PAST MEDICAL HISTORY Medical History[1] SURGICAL HISTORY Surgical History[2] CURRENT MEDICATIONS Current Discharge Medication List CONTINUE these medications which have NOT CHANGED Details carbidopa-levodopa (Parcopa) 25-250 MG disintegrating tablet Take 1 tablet by mouth 4 times daily. Take 1 and 1/2 tab at 6am. 1 tab at 10am. 1 and 1/2 tab at 2pm. 1 tab at 6pm ALLERGIES Seasonal FAMILY HISTORY Family History[3] SOCIAL HISTORY Social History[4] SCREENINGS Cody Coma Scale Best Eye Response: Spontaneous Best Verbal Response: Oriented Best Motor Response: Follows commands Cody Coma Scale Score: 15 PHYSICAL EXAM ED Triage Vitals Temp Pulse Resp BP -- -- -- -- SpO2 Temp src Heart Rate Source Patient Position -- -- -- -- BP Location FiO2 (%) -- -- Physical Exam Constitutional: General: He is not in acute distress. HENT: Head: Normocephalic and atraumatic. Cardiovascular: Rate and Rhythm: Normal rate. Heart sounds: Normal heart sounds. Pulmonary: Effort: Pulmonary effort is normal. Breath sounds: Normal breath sounds. Abdominal: General: There is distension. Palpations: Abdomen is soft. Tenderness: There is no abdominal tenderness. Neurological: Mental Status: He is alert. DIAGNOSTIC RESULTS RADIOLOGY (Per Emergency Physician): Interpretation per the Radiologist below, if available at the time of this note: XR abdomen 2 views supine and decubitus Final Result Rectal tube placement. Improved sigmoid colon distention. Mildly dilated proximal colon, possibly ileus, with a moderate to large amount of colonic stool. Report Dictated on Electronically Signed By: Sebastian Díaz MD Electronically Signed Date/Time: 03/16/2025 12:[address] abdomen pelvis w contrast Final Result 1. Redundant and tortuous sigmoid colon with swirling of mesenteric vessels. Two areas of luminal narrowing in the sigmoid colon with colonic distention. Findings could be due to large bowel obstruction including volvulus. Consider endoscopic follow-up after resolution of the acute symptoms to exclude an underlying lesion. 2. Mural thickening in the rectum with adjacent fat stranding compatible with proctitis. 3. Moderate to large stool throughout the colon. Consider constipation. Mild dilation of the proximal colon may be due to ileus. 4. Splenomegaly. 5. Prostatomegaly. CRITICAL TEST RESULT COMMUNICATION: Notification of these findings was made to JAMEEL BARRAZA via [facility] Secure Chat on 03/16/2025 8:35 AM EDT. Report Dictated on Electronically Signed By: Sebastian Díaz MD Electronically Signed Date/Time: 03/16/2025 8:35 AM EDT LABS: Labs Reviewed CBC WITH AUTO DIFFERENTIAL - Abnormal Result Value Auto WBC 6.0 RBC 4.21 (*) Hemoglobin 12.9 (*) Hematocrit 38.8 (*) MCV 92.2 MCH 30.6 MCHC 33.2 RDW 13.0 Platelets 126 (*) MPV 10.8 nRBC 0.0 Neutrophils Relative 75.6 Lymphocytes Relative 13.6 (*) Monocytes Relative 10.5 Eosinophils Relative 0.0 Basophils Relative 0.0 Immature Grans % 0.3 Neutrophils Absolute 4.5 Lymphocytes Absolute 0.8 (*) Monocytes Absolute 0.6 Eosinophils Absolute 0.0 Basophils Absolute 0.0 Immature Grans Absolute 0.0 IPF 4 COMPREHENSIVE METABOLIC PANEL - Abnormal SODIUM 137 POTASSIUM 3.8 CHLORIDE 110 (*) CARBON DIOXIDE 23 ANION GAP 4 UREA NITROGEN 18 CREATININE 0.78 GLUCOSE 100 CALCIUM 8.5 (*) AST (SGOT) 26 ALT 23 ALKALINE PHOSPHATASE 67 ALBUMIN 3.5 BILIRUBIN, TOTAL 0.5 TOTAL PROTEIN 6.5 eGFR >90.0 LIPASE - Normal LIPASE 11 LACTIC ACID WITH REFLEX - Normal LACTIC ACID 0.6 All other labs were within normal range or not returned as of this dictation. EMERGENCY DEPARTMENT COURSE and DIFFERENTIAL DIAGNOSIS/MDM: Vitals: Vitals: 03/16/25 0739 03/16/25 0811 03/16/25 0902 03/16/25 1115 BP: 128/77 122/80 (!) 141/84 135/78 BP Location: Right arm Right arm Right arm Right arm Patient Position: Lying Lying Lying Sitting Pulse: 85 100 98 99 Resp: 16 18 16 18 Temp: 37.6 C (99.6 F) TempSrc: Temporal SpO2: 99% 99% 97% 95% Weight: Height: The patient presented with a chief complaint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 Problem Noted Date Resolved Date Pure hypercholesterolemia 2012 documented as of this encounter (statuses as of 08/19/2022) [facility] History of Past illness Narrative* Problem Noted Date Resolved Date Pure hypercholesterolemia 2012 documented as of this encounter (statuses as of 12/29/2022) [facility]* Diagnosis Onset Date Resolution Status Atherosclerosis of coronary artery of [place] heart without angina pectoris chronic [facility] [facility] Work Phone: Evegnation noteNo assessment information available [facility] Work Phone: evaluation note* Diagnosis Onset Date Resolution Status Cardiac murmur, unspecified acute Carotid bruit acute 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 Hyperlipidemia [facility] Work Phone: evaluation note* Diagnosis Parkinson disease (HCC)- Primary Paralysis agitans Abnormality of gait and mobility Abnormality of gait Abnormal coordination Lack of coordination Irregular eye movements Other irregularities of eye movements [facility] Diagnosis Parkinson disease (HCC)- Primary Paralysis agitans Abnormality of gait and mobility Abnormality of gait Abnormal coordination Lack of coordination Irregular eye movements Other irregularities of eye movements [facility] Diagnosis Parkinson disease (HCC)- Primary Paralysis agitans [facility] Diagnosis 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 documented in this encounter [facility] for referral (narrative)No reason for referral [facility] Work Phone: Summary Purpose Family History No Family History Records Found Relationship Condition Age at Onset Recorded Date/T [place] mother Cardiac disease Unknown father Parkinson's disease Unknown Advance Directives No Advanced Directives Records Found Advance Directive Response Recorded Date/ Time Advance Directives Yes March 21 7:13am Living Will Yes December 30, 2020 6:44pm Power of Quantitative Associate Yes December 30 6:44pm Advance Directive Response Recorded Date/ Time Advance Directives Yes March 21 6:13am Living Will Yes December 30, 2020 5:44pm Power of Quantitative Associate Yes December 30 5:44pm Advance Directive Response Recorded Date/ Time Living Will Yes December 30, 2020 5:44pm Power of Quantitative Associate Yes December 30 5:44pm Living Will Yes August 22 10:23am Power of Quantitative Associate Yes August 22, 2024 10:23am Name of Medical Power of Quantitative Associate August 22, 2024 10:23am Advance Directives Yes March 21 6:13am Advance Directive Response Recorded Date/ Time Living Will Yes August 22 11:23am Power of Quantitative Associate Yes August 22, 2024 11:23am Name of Medical Power of Quantitative Associate August 22, 2024 11:23am Advance Directives Yes March 21 7:13am Advance Directive Response Recorded Date/ Time Living Will Yes December 30, 2020 6:44pm Do you have a Healthcare Power of Quantitative Associate? Yes December 30, 2020 6:44pm Living Will Yes August 22 11:23am Do you have a Healthcare Power of Quantitative Associate? Yes August 22, 2024 11:23am Name of Medical Power of Quantitative Associate August 22, 2024 11:23am Advance Directives Yes March 21 7:13am Advance Directive Response Recorded Date/ Time Living Will Yes December 30, 2020 6:44pm Do you have a Healthcare Power of Quantitative Associate? Yes December 30, 2020 6:44pm Advance Directives Yes March 21 7:13am Advance Directive Response Recorded Date/ Time Living Will Yes December 30, 2020 6:44pm Do you have a Healthcare Power of Quantitative Associate? Yes December 30, 2020 6:44pm Do you have a Healthcare Power of Quantitative Associate? Yes March 15, 2025 9:45pm Name of Medical Power of Quantitative Associate gardenia ramos March 15, 2025 9:45pm Advance Directives Yes March 21 7:13am Date Activated Date Inactivated Comments 03/20/2025 10:59 AM 03/21/2025 7:54 AM Question Answer Comments ICU transfer: Yes Intubation: Yes Date Activated Date Inactivated Comments 03/16/2025 10:53 AM 03/20/2025 10:59 AM Chief Complaint and Reason for Visit Chief Complaint 6-8 MO F/U (MOVED FR OM 10/19) IVIG IVIG IVIG IVIG Reason for Visit Atherosclerosis of c oronary artery of [place] heart without angina pectoris Hyperlipidemia Chief Complaint [...] 2024 11 :12am INCOMPLETE COLONOSCOPY/TORTUOUS COLON Ja brenda 2024 8:06am IVIG October 10, 2024 9 :29am IVIG November 07, 2024 10:3 8am Chief Complaint Admit Date IVIG August 08, 2024 1 1:34am IVIG September 05, 2024 11 :12am INCOMPLETE COLONOSCOPY/TORTUOUS COLON [facility] 2024 8:06am IVIG October 10, 2024 9 [...] m IVIG March 05, 2025 11:06 am Chief Complaint Admit Date 1 Y FU November 28, 2024 10: 49am IVIG December 05, 2024 10:5 7am BRUIT December 17, 2024 1:2 0pm BRUIT December 17, 2024 1:5 8pm IVIG January 02, 2025 10:50a m [facility] January 06, 2025 2:30pm IVIG February 05, 2025 9:31a m IVIG March 05, 2025 11:06 am constipation March 15, 2025 9:16 pm Additional Source Comments (unrecognized sect ion and content) No Status Records FoundNo Status Records FoundNo Status Records FoundNo Status Records FoundNo Status Records FoundNo Status Records Found INFORMATION SOURCE (unrecogn ized section and content) DATE CREATED AUTHOR 02/27/2018 [facility] DATE CREATED AUTHOR AUTHOR'S ORGANIZ ATION 08/09/[address] [facility] ([place]) DATE CREATED AUTHOR AUTHOR'S ORGANIZ ATION 12/30/[address] [facility] DATE CREATED AUTHOR AUTHOR'S ORGANIZ ATION 05/25/2024 [facility] DATE CREATED AUTHOR AUTHOR'S ORGANIZ ATION 03/23/2025 [facility] DATE CREATED AUTHOR AUTHOR'S ORGANIZ ATION 2025 [facility] Goals (unrecognized section and content) Goals may [...] or prosecute any alcohol or drug abuse patient.[facility] the event this information is protected by the Federal Confidentiality of Alcohol and Drug Abuse Patient Records regulations: The Federal rules restrict any use of the information to criminally investigate or prosecute any alcohol or drug abuse patient.[facility] the event this information is protected by the Federal Confidentiality of Alcohol and Drug Abuse Patient Records regulations: The Federal rules restrict any use of the information to criminally investigate or prosecute any alcohol or drug abuse patient.[facility] Reason for Visit (unrecogniz ed section and content) Reason Comments Occupational Therapy Specialty Diagnoses / Procedures Referred By Laura angulo Referred To Contact [facility] Diagnoses Parkinson's disease Drivers evaluation Procedures NEW RS OT COMM REINTEGRATION Errol Larson MD [address] [facility] [address] [place] [address] [facility] [place] [address] [place] [id number] Referral ID Status Reason Start Date Expiration Date V isits Requested Visits Authorized [id number] Authorized 09/04/2021 09/03/2022 99 99 Reason Comments OT EVAL Reason Comments Consult Parkinsons Reason Comments Abdominal Pain Transfer from [facility] for Colonoscopy due to a twisted colon. Pt reports that his symptoms began a few hours ago. Denies any N/V/D. Pt is A&ox 3. Denies any other complaints at this time. Specialty Diagnoses / Procedures Referred By Laura angulo Referred To Contact Diagnoses Sigmoid volvulus (CMS/HCC) (HCC) Sigmoid Volvulous Procedures .. Bronson Jarrett MD [address] [place] [address] Phone: tel: fax: [facility] [address] [place] [phone] Phone: tel: Referral ID Status Reason Start Date Expiration Date Visits Re quested Visits Authorized [id number] 1 1 Care Teams (unrecognized sec tion and content) [employer] Relationship Specialty Start Date End Date Lacy Goldberg NO FORWARDING ADDRESS PCP - General 06/27/02 [employer] Relationship Specialty Start Date End Date Lacy [...] Avendano MD Primary Care Provider, Attending P rovider Active Team Status: Inactive Member Role Status [...] Avendano MD Primary Care Provider Active Joan Prebish SEAM RUBBING MACHINE OPERATOR, SEAM RUBBING MACHINE OPERATOR-C Attending Provider, Referring Pr ovider Active Team Status: Inactive Member Role Status Dates Dr. Ethan Avendano MD Primary Care Provider Active Joan Prebish SEAM RUBBING MACHINE OPERATOR, SEAM RUBBING MACHINE OPERATOR-C Attending Provider, Referring Pr ovider Active Team Status: Inactive Member Role Status Dates Dr. Ethan Aevndano MD Primary Care Provider Active Dr. Jorden Ortiz DO Attending Provider, Referring Provider Active [employer] Relationship Specialty Start Date End Date Lacy [...] Avendano MD Primary Care Provider Active Lory ALVAREZ, [place] Attending Provider, Referr ing Provider Active Team Status: Inactive Member Role Status Dates Dr. Ethan Avendano MD Primary Care Provider Active Lory ALVAREZ, [place] Attending Provider, Referr ing Provider Active Team Status: Active Member Role Status Dates Dr. Ethan Avendano MD Primary Care Provider Active Dr. Ethan Barahona MD Attending Provider Active Lory ALVAREZ, [place] Referring Provider Active Team Status: Inactive [...] St art: August 23, 2024 Dr. Jameel Oseguera MD [...] 02, 2025 End: January 02, 2025 Dr. Ehtan Avendano MD Attending Provider Active St art: [...] March 05, 2025 End: March 05, 2025 Team Status: Inactive Member Role/Relationship [...] March 05, 2025 End: March 05, 2025 Team Status: Inactive Member Role/Relationship Status Dates Dr. Ethan Avendano MD Primary Care Provider Active Start: March 15, 2025 End: March 16, 2025 Dr. Brijesh Frederick DO Emergency Provider Activ e Start: March 15, 2025 End: March 16, 2025 Registrar [employer] Relationship Specialty Start Date End Date Jameel Oseguera [address] [place] [id number] PCP - General 03/16/25 Scheduled Active and Recently Administ ered Medications (unrecognized section and content) Medication Order 03/19/2025 03/20/2025 03/21/2025 carbidopa-levodopa (Sinemet) 25-250 MG per tablet 1 tablet 1 tablet, Oral, 2 times daily, First dose on 03/16/25 at 1800 1215 (Given - Provider: Lu Bee RN)1951 (Given - Provider: Triny Garvey RN) 0850 (Given - Provider: Lu Bee RN)1727 (Given - Provider: Lu Bee, JOSÉ LUIS) 0901 (Given - Provider: Lu Bee RN) carbidopa-levodopa (Sinemet) 25-250 MG per tablet 1.5 tablet 1.5 tablet, Oral, 2 times daily, First dose on 03/16/25 at 1630 0802 (Given - Provider: Lu Bee RN)1534 (Given - Provider: Lu Bee RN) 0628 (Given - Provider: Triny Garvey RN)1329 (Given - Provider: Lu Bee, JOSÉ LUIS) 0524 (Given - Provider: Kitty Aguilar RN) docusate (Colace) 50 MG/5ML liquid 50 mg 50 mg, Oral, Daily, First dose on Mon03/19/25 at 0900, Phase II/On Unit 0915 (Given - Provider: Lu Bee RN) 0849 (Given - Provider: Lu Bee RN) 0901 (Given - Provider: uL Bee RN) enoxaparin (Lovenox) syringe 40 mg 40 mg, SubCUTAneous, Every 24 hours scheduled (Daily), First dose on 03/16/25 at 1100, Indication of Use: Prophylaxis-DVT/PE, Indications: Prophylaxis of Venous Thromboembolism 0801 (Given - Provider: Lu Bee RN) 0843 (Given - Provider: Lu Bee RN) 0901 (Given - Provider: Lu Bee RN) pantoprazole (ProtoNix) 40 mg in sodium chloride (PF) 0.9 % 10 mL injection (CANCELED) 40 mg, IntraVENous, Administer over 2 Minutes, Daily, First dose on 03/16/25 at 1100, Reconstitute with 10 ml NS. Vial expires 2 hrs after reconstitution. 0801 (Given - Provider: Lu Bee, JOSÉ LUIS) 0843 (Given - Provider: Lu Bee, JOSÉ LUIS) 0908 (Not Given - Provider: Lu Bee RN - Reason: Loss of IV access) pantoprazole (ProtoNix) 40 mg in sodium chloride (PF) 0.9 % 10 mL injection(Linked Group 1) 40 mg, IntraVENous, Administer over 2 Minutes, Nightly, First dose on Mon03/21/25 at 2100, Give only if unable to tolerate po. pantoprazole (ProtoNix) EC tablet 40 mg(Linked Group 1) 40 mg, Oral, Nightly, First dose on Mon03/21/25 at 2100, Do not crush, chew, or split. potassium chloride (Klor-Con) packet 40 mEq (COMPLETED) 40 mEq, Oral, Once, On Niki 03/20/25 at 0600, For 1 dose, Dissolve each packet in 4 ounces of water = 5 mEq per 1 oz fluid., Indications: Hypokalemia 0629 (Given - Provider: Triny Garvey, JOSÉ LUIS) PRN Medication Order 03/19/2025 03/20/2025 03/21/2025 acetaminophen (Tylenol) tablet 650 mg 650 mg, Oral, Every 6 hours PRN, mild pain (1-3), Starting on Niki 03/20/25 at 0958, Maximum dose of acetaminophen is 4000 mg from all sources in 24 hours. haloperidol lactate (Haldol) injection 0.5 mg () 0.5 mg, IntraMUSCular, Every 30 min PRN, agitation, Starting on Mon03/19/25 at 1658, For 24 hours, Haloperidol Loading Dose Give as needed for agitation until the patient is calm. Not to exceed 5 mg total in 24 hours. Notify provider if greater than 5 mg is required in any 24 hour period. Discontinue order when loading phase is complete. Because of the risk of TdP and QT prolongation, ECG monitoring is recommended if haloperidol is given IV. 1704 (Given - Provider: Lu Bee, JOSÉ LUIS) naloxone (Narcan) injection 0.4 mg 0.4 mg, IntraVENous, Every 5 min PRN, opioid reversal, respiratory depression, Starting on Mon03/16/25 at 1059, +++ For RR <10, pinpoint pupils, over sedation for opioid reversal - MUST notify sap ppm consultant provider immediately after first dose, may give IM or SQ if no IV access +++ ondansetron (Zofran) injection 4 mg(Linked Group 2) 4 mg, IntraVENous, Every 6 hours PRN, nausea, vomiting, Starting on 03/16/25 at 1053, 1st Line. Give IV if patient is unable to take orally. If inadequate response within 60 minutes, proceed to next-line agent or contact provider if no further options ordered. ondansetron ODT (Zofran-ODT) disintegrating tablet 4 mg(Linked Group 2) 4 mg, Oral, Every 8 hours PRN, nausea, vomiting, Starting on 03/16/25 at 1053, 1st Line. If inadequate response within 60 minutes, proceed to next-line agent or contact provider if no further options ordered. Patient should allow tablet to dissolve on tongue. Do not remove from blister pack until just before administering. oxyCODONE (Roxicodone) immediate release tablet 2.5 mg(Linked Group 3) 2.5 mg, Oral, Every 4 hours PRN, moderate pain (4-6), Starting on Niki 03/20/25 at 0958 oxyCODONE (Roxicodone) immediate release tablet 5 mg(Linked Group 3) 5 mg, Oral, Every 4 hours PRN, severe pain (7-10), Starting on Niki 03/20/25 at 0958 Linked Groups Order Group 1: pantoprazole (ProtoNix) EC tablet 40 mgJump to med 40 mg, Oral, Nightly, First dose on Mon03/21/25 at 2100, Do not crush, chew, or split. Or pantoprazole (ProtoNix) 40 mg in sodium chloride (PF) 0.9 % 10 mL injectionJump to med 40 mg, IntraVENous, Administer over 2 Minutes, Nightly, First dose on Mon03/21/25 at 2100, Give only if unable to tolerate po. Group 2: ondansetron ODT (Zofran-ODT) disintegrating tablet 4 mgJump to med 4 mg, Oral, Every 8 hours PRN, nausea, vomiting, Starting on 03/16/25 at 1053, 1st Line. If inadequate response within 60 minutes, proceed to next-line agent or contact provider if no further options ordered. Patient should allow tablet to dissolve on tongue. Do not remove from blister pack until just before administering. Or ondansetron (Zofran) injection 4 mgJump to med 4 mg, IntraVENous, Every 6 hours PRN, nausea, vomiting, Starting on 03/16/25 at 1053, 1st Line. Give IV if patient is unable to take orally. If inadequate response within 60 minutes, proceed to next-line agent or contact provider if no further options ordered. Group 3: oxyCODONE (Roxicodone) immediate release tablet 2.5 mgJump to med 2.5 mg, Oral, Every 4 hours PRN, moderate pain (4-6), Starting on Niki 03/20/25 at 0958 Or oxyCODONE (Roxicodone) immediate release tablet 5 mgJump to med 5 mg, Oral, Every 4 hours PRN, severe pain (7-10), Starting on Niki 03/20/25 at 0958 FOR RECORDS PERTAINING TO PATIENTS WHO ARE [...] BE BASED ON THE PRIMARY CLINICAL RECORDS. [employer] [facility]. provides no warranty or guarantee of the accuracy or completeness of information in this document.
[2025-03-25 22:07] LABS: Anion Gap 11 (5-15); BUN 22 mg/dL (4-19); BUN/Creat Ratio 17.9 RATIO (10-20); Calcium,Total 9.5 mg/dL (7.6-11.0); Carbon Dioxide 26.2 mmol/L (21.0-32.0); Chloride 100 mmol/L (98-108); Estimated Creatinine Clearance 50.42 ml/min (50-250); Glucose 135 mg/dL (70-99); Potassium 4.4 mmol/L (3.3-5.1)
[2025-03-25 22:08] LABS: Alcohol, Blood (Medical)-Serum < 10.1 mg/dL (<=10.0)
[2025-03-25 22:21] LABS: Mucous, Urine 0 SEEN /hpf (<or=2+)
[2025-03-25 22:28] LABS: Color, Urine Yellow (Yellow); Glucose, Dipstick Normal (Normal); Ketone-Dipstick 5 mg/dl (Negative); Leukocyte Esterase-Dipstick Negative /ul (Negative); Nitrite-Dipstick Negative (Negative); Occult Blood-Urine Negative /ul (Negative); Protein-Dipstick 15 mg/dl (Negative); Specific Gravity, Urine 1.010 (1.002-1.030); Urine Bilirubin Dipstick Negative (Negative)
--- NOTE | 2025-03-25 22:52 | PCM.HP.STD ---
HPI - General General Date of Admission: 03/25/25 Date of Service: 03/25/25 Chief Complaint: Agitation HPI Narrative The patient is a 75 y/o M w/ PMHx: Anxiety and Depression, CKD stage II per GFR trending, Parkinson disease with given presentation possibly new behavioral disturbance history, HTN, HLD, BPH with obstructive pathology status post TURP, CAD status post PCI who presents to the [facility] ED on 03/25/2025 with recent history of increased agitation and confusion becoming combative with his spouse prompting the police call who brought him in by squad and patient did clinically calm and improved in the ED but family felt uncomfortable taking him home prompting ED physician to request hospitalist admission. In the ED patient is alert to self, place, president and month but gives the incorrect year. He then several times becomes paranoid asking questions about people talking about him. Discussed patient's evening with him and asked if he was cognizant of the events of the evening and he reports that he is but several of the components are altered and again have a paranoid feel. Workup in the ED included T99.4, heart 118, BP 153/76, respiratory rate 27, 98% on room air with most recent repeat vitals heart rate 109, BP 140/86, respiratory rate 18, 100% on room air, CBC with WC 5.6, A1 13.2, platelet 162 with increased immature granulocytes and lymphopenia, BMP with BUN/canaille 25/09.22, GFR 63, glucose 135, urinalysis with specific [place] 1.010, protein 15, ketone 5, negative nitrite, negative leukocyte esterase with urine RBCs 5-10 and 1+ urine bacteria, UDS negative, ethyl alcohol less than 10.1, CT of the brain with no acute intracranial findings with evidence of previous basal ganglia infarcts with diffuse atrophy and mild white matter change, chest x-ray with no acute cardiopulmonary findings. [facility] Medical History Tortuous colon Wears glasses Arthritis High cholesterol Easy bruising Back pain Non-smoker History of pain when walking History of echocardiogram History of stress test Cardiology follow-up encounter Parkinson disease Atherosclerosis of coronary artery of [place] heart without angina pectoris Hyperlipidemia Common variable immunodeficiency Benign prostate hyperplasia Basal cell carcinoma of left ear Home Medications ?Medication ?Instructions ?Recorded ?Last Taken ?Type multivitamin with folic acid 400 1 tab PO DAILY 06/10/13 08/22/24 History mcg tablet folic acid 400 mcg tablet 1 tab PO DAILY 12/24/13 08/19/24 History immune glob,gamma(IgG) 10 20 g .Route .w2emkgw 03/04/19 08/08/24 History [id number]-[id number]-[id number] 0 to 50 mcg/mL IV solution nitroglycerin 0.4 mg sublingual 0.4 mg sublingual Q5-15M PRN chest 04/03/19 Unknown Rx tablet pain #25 tabs ibuprofen 600 mg tablet 600 mg PO Q6H PRN pain #20 tabs 12/30/20 08/22/24 Rx aspirin 81 mg tablet,delayed 81 mg PO DAILY 01/05/21 08/19/24 History release (Adult Low Dose Aspirin) memantine 5 mg tablet 10 mg PO BID 02/01/23 08/22/24 History rosuvastatin 40 mg tablet 40 mg PO QHS 10/10/23 08/22/24 History bupropion HCl 100 mg tablet,12 hr 100 mg PO QAM 11/28/24 Unknown History sustained-release carbidopa 25 mg-levodopa 100 mg 1 tab PO .qid 11/28/24 Unknown History tablet escitalopram oxalate 5 mg tablet 10 mg PO DAILY 11/28/24 Unknown History (Lexapro) Allergy/AdvReac Type Severity Reaction Status Date / Time No Known Allergies Allergy Verified 03/15/25 21:20 Family History Mother Heart disease valve replacement Father Parkinson disease Surgical History History of cardiac catheterization Hx of colonoscopy Hx of transurethral resection of prostate History of coronary artery stent placement (03/21/19) History of herniorrhaphy History of bilateral cataract extraction Social History (Updated 03/25/25 @ 23:[address] Lacy Johnston MD) household members: spouse Smoking Status: Never smoker alcohol intake: current alcohol intake frequency: holidays/special occasions only substance use type: does not use caffeine: No ROS Review of Systems ROS Unobtainable: due to mental condition Vital Signs Vital Signs Vital Signs: 03/25/25 20:42 03/25/25 21:05 03/25/25 21:41 Temperature 99.4 F H Temperature Source Oral Pulse Rate 118 H 109 H Respiratory Rate 27 H 18 Respiratory Effort Normal Non-Labored Respiratory Depth Normal Respiratory Pattern Normal Blood Pressure 153/76 H 140/86 H Blood Pressure Mean 101 104 Pulse Ox 98 100 Oxygen Delivery Method Room Air Room Air Room Air Weight Weight: 147 lb Body Mass Index (BMI) 23.0 Physical Exam Narrative Physical Examination: General: Awake, alert, oriented to self, place, month but gives incorrect year and during the conversation has evident hallucinations, very concerned and paranoid, currently is cooperative and following commands, seated upright in ED bed. Skin: Normal color, normal turgor, no icterus, no cyanosis except very stage ecchymoses, abrasions especially to the extremities. HEENT: AT/NC, EOMI, PERRLA, MMM, no carotid bruits or JVD noted. Lungs: Mildly diminished, greater bases, appropriate effort, no rales, ronchi or wheezing. Heart: Regular rate and rhythm; no gallop, rub audible. Abdomen: Soft, NTTP, ND, hyperactive BS, no HSM. Extremities: No cyanosis, no clubbing, no significant distal edema noted. Neurological: Patient awake, alert, oriented as noted, cognitive function decreased baseline with underlying cognitive impairments with recent history of combative behavior, pupils equally reactive to light and accommodation, cranial nerves grossly normal, moving all 4 extremities, no focal deficits, strength mildly globally decreased. Psychiatric: Affect appears currently calm, mildly flat, no acute evidence of depressive or anxiety feelings but does have underlying history. Results Lab / Micro Data 03/25/25 21:15 03/25/25 21:15 Labs: Laboratory Results - last 24 hr 03/25/25 21:15: WBC 5.6, RBC 4.27 L, Hgb 13.2, Hct 38.6 L, MCV 90.4, MCH 30.9, MCHC 34.2, RDW Std Deviation 43.5, RDW Coeff of Lou 13.2, Plt Count 162, MPV 10.0, Immature Gran % (Auto) 1.100 H, Neut % (Auto) 81.0 H, Lymph % (Auto) 10.2 L, [place] % (Auto) 7.5, Eos % (Auto) 0.0, Baso % (Auto) 0.2, Absolute Neuts (auto) 4.5, Absolute Lymphs (auto) 0.57 L, Nucleated RBC % 0, Sodium 138, Potassium 4.4, Chloride 100, Carbon Dioxide 26.2, Anion Gap 11, BUN 22 H, Creatinine 1.22 H, Estim Creat Clear Calc 50.42, Est GFR (MDRD) Non-Af 63, BUN/Creatinine Ratio 17.9, Glucose 135 H, Calcium 9.5, Ethyl Alcohol < 10.1 03/25/25 22:17: Urine Color Yellow, Urine Clarity Clear, Urine pH 7.0, Ur Specific [place] 1.010, Urine Protein 15 H, Urine Glucose (UA) Normal, Urine Ketones 5 H, Urine Occult Blood Negative, Urine Nitrite Negative, Urine Bilirubin Negative, Urine Urobilinogen Normal, Ur Leukocyte Esterase Negative Rhythm Strip Rhythm Strip: Sinus Tach Rate: 111 Ectopy: None Imaging Radiology Impression Brain CT 03/25/25 21:35 IMPRESSION: No acute intracranial findings. Reading Location: [place] [id number] Chest X-Ray 03/25/25 21:43 IMPRESSION: No acute cardiopulmonary process identified. [facility] Assessment & Plan Assessment/Plan (1) Combative behavior: (2) History of Parkinson disease: PLAN: Plan The patient is a 75 y/o M w/ PMHx: Anxiety and Depression, CKD stage II per GFR trending, Parkinson disease with given presentation possibly new behavioral disturbance history, HTN, HLD, BPH with obstructive pathology status post TURP, CAD status post PCI who presents to the [facility] ED on 03/25/2025 with recent history of increased agitation and confusion becoming combative with his spouse prompting the police call who brought him in by squad and patient did clinically calm and improved in the ED but family felt uncomfortable taking him home prompting ED physician to request hospitalist admission. #1. Adult failure to thrive with Parkinson disease with chronic cognitive impairment with given presentation possibly new behavioral disturbance history: Given family concern and preference not to take patient home will admit to medical surgical floor, maintain on fall precautions, will continue patient home Sinemet and memantine home regimen, no obvious infectious source upon presentation with unremarkable chest x-ray, urinalysis, CT head with no acute findings, will obtain procalcitonin to be cautious, will also request neurology evaluation to assure they have no other recommendations, PT/OT/case management consulted for discharge planning to potentially assisted living versus skilled. If patient does become agitated again low threshold to initiate low-dose Seroquel versus Risperdal and Haldol as needed. #2. Chronic Kidney Disease Stage II per GFR trending: Admission BUN/Cr 22/1.22, GFR 63, baseline renal function primarily 0.8-1.0, repeat BMP in AM. #3. Anxiety and depression/mood disorder: Will continue patient home escitalopram and bupropion regimen, certainly could be contributing to #1. #4. CAD: Status post previous PCI, will continue aspirin, statin, not on the beta-leonie therapy or RAVI inhibitor potentially secondary to pressure versus intolerance of medication, clarified to be certain. #5. Hypertension: Per current list on a regimen, clarified to be certain, in the interim we will maintain on PRN hydralazine. #6. Hyperlipidemia: Will continue patient on statin therapy. #7. BPH with obstructive pathology: Status post TURP, per current list does not appear to be on a regimen, will monitor for urinary retention. #8. DVT prophylaxis: Lovenox. #9. CODE status: Attempted to contact family however unfortunately did not reach. Case management/social work did talk earlier in the evening with family. Also discussed with ED physician and they had requested a call back but and not heard from them yet. Once family returns call we will attempt to clarify CODE STATUS. In the interim we will maintain full code unverified. Charges/Coding Visit Charges Inpatient E&M: 36749 Init Hosp L3
[2025-03-25 22:59] LABS: Squamous Epithelial Cells - UA 0-5 SEEN /hpf (0-5)
[2025-03-25 23:00] VITALS: BP 138/88; PULSE 105; RESP 18; O2SAT 95
[2025-03-25 23:00] LABS: Red Blood Cells-Urine 5-10 SEEN /hpf (0-5)
[2025-03-25 23:09] LABS: Barbiturate Urine NEGATIVE (< 200 ng/mL); Benzodiazepine Urine NEGATIVE (< 200 ng/mL); PCP Urine NEGATIVE (< 25 ng/mL); THC Urine NEGATIVE (< 50 ng/mL)
--- OUTSIDE RECORDS SUMMARY | 2025-03-25 23:21 | XMS RPT_ITS | CCD ---
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 [place] [address] MCHC 34.3 % Normal 30.5-36.0 [facility] Comment on above: Performed By: #### L [id number] #### [employer]worker: JAZLYN BRUCE ([phone]) [facility]) [address] [place] [address] MCV (RBC) [Entitic vol] 89.7 fL Normal 77.0-99.0 [facility] Comment on above: Performed By: #### L [id number] #### [employer]: JAZLYN BRUCE ([phone]) [facility]) [address] [place] [address] Monocytes (Bld) [#/Vol] 0.6 10*3/uL Normal 0.0-0.9 [facility] Comment on above: Performed By: #### L [id number] #### [employer]: JAZLYN BRUCE ([phone]) [facility]) [address] [place] [address] Monocytes/100 WBC (Bld) 8.4 % Normal 5.0-13.0 [facility] Comment on above: Performed By: #### L [id number] #### [employer]: JAZLYN BRUCE ([phone]) [facility] ([facility]) [address] [place] [address] NEUTROPHILS ABSOLUTE 5.9 10*3/uL Normal 1.8-7.5 [facility] Comment on above: Performed By: #### L [id number] #### [employer]: JAZLYN BRUCE ([phone]) [facility] ([facility]) [address] [place] [address] Neutrophils/100 WBC (Bld) 76.9 % Normal 38.0-82.0 [facility] Comment on above: Performed By: #### L [id number] #### [employer]: JAZLYN BRUCE ([phone]) [facility] ([facility]) [address] [place] [address] NRBC 0.0 /100 WBCs Normal 0.0-2.0 [facility] Comment on above: Performed By: #### L [id number] #### [employer]: JAZLYN BRUCE ([phone]) [facility] ([facility]) [address] [place] [address] Platelet mean volume (Bld) [Entitic vol] 10.9 fL Normal 9.0-12.7 [facility] Comment on above: Performed By: #### L [id number] #### [employer]: JAZLYN BRUCE ([phone]) [facility] ([facility]) [address] [place] [address] Platelets (Bld) [#/Vol] 155 10*3/uL Normal 140-440 [facility] Comment on above: Performed By: #### L [id number] #### [employer]worker: JAZLYN BRUCE ([phone]) [facility] [address] [place] [address] RBC (Bld) [#/Vol] 4.46 10*6/uL Normal 4.40-5.90 [facility] Comment on above: Performed By: #### L [id number] #### [employer]worker: JAZLYN BRUCE ([phone]) [facility] ([facility]) [address] [place] [address] WBC (Bld) [#/Vol] 7.7 10*3/uL Normal 3.6-10.7 [facility] Comment on above: Performed By: #### L [id number] #### [employer]: JAZLYN BRUCE ([phone]) [facility] ([facility]) [address] [place] [address] Laboratory - Chemistry and C hemistry - challengeon 03-20-2025 Magnesium [Mass/Vol] 1.9 mg/dL 1.6 - 2 .6 mg/dL [facility] MAGNESIUMon 03-20-2025 Magnesium [Mass/Vol] 1.9 mg/dL Normal 1.6-2.6 [facility] Comment on above: Result Comment: HENNY Catalan COMMENTS: Higher values can be expected in females during menses. Performed By: #### L [id number], [id number] ####[employer]: JAZLYN BRUCE ([phone])[facility] ([facility])[address] [place] [address] Magnesium [Mass/Vol]on 03-20 Interpretation and review of laboratory results Normal [facility] Higher values can be expected in females during menses. [facility] BASIC METABOLIC PANELon 03-04 Anion gap [Moles/Vol] 13 mmol/L Normal 3-13 [facility] Comment on above: Performed By: #### L [id number] ####[employer]: JAZLYN BRUCE ([phone])[facility] ([facility])[address] [place] [address] Calcium [Mass/Vol] 8.2 mg/dL Low 8.8-10.0 [facility] Comment on above: Performed By: #### L [id number] ####[employer]: JAZLYN BRUCE ([phone])[facility] ([facility])[address] [place] [address] Chloride [Moles/Vol] 106 mmol/L Normal 98-107 [facility] Comment on above: Performed By: #### L [id number] ####[employer]worker: JAZLYN BRUCE ([phone])[facility] ([facility])[address] [place] [address] [place] CO2 [Moles/Vol] 16 mmol/L Low 23-31 [facility] Comment on above: Performed By: #### L [id number] ####[employer]worker: JAZLYN BRUCE ([phone])[facility])[address] [place] [address] Creatinine [Mass/Vol] 0.73 mg/dL Normal 0.72-1.25 [facility] Comment on above: Performed By: #### L [id number] ####[employer]worker: JAZLYN BRUCE ([phone])[facility] ([facility])[address] [place] [address] GLOMERULAR FILTRATION RATE ML/MIN/1.73 SQ M.PREDICTED >90.0 Normal >60.0 [facility] Comment on above: Result Comment: Calc ulation based on the Chronic Kidney Disease Epidemiology Collaboration (CKD-EPI) equation refit without adjustment for race Performed By: #### L [id number] ####[employer]worker: JAZLYN BRUCE ([phone])[facility] ([facility])[address] [place] [address] Glucose [Mass/Vol] 149 mg/dL High 82-115 [facility] Comment on above: Performed By: #### L [id number] ####[employer]worker: JAZLYN BRUCE ([phone])[facility])[address] [place] [address] Potassium [Moles/Vol] 4.0 mmol/L Normal 3.5-5.1 [facility] Comment on above: Result Comment: [facility] potassium values may be up to 0.5 mmol/L lower than serum values. Performed By: #### L [id number] ####[employer]worker: JAZLYN BRUCE ([phone])[facility] ([facility])[address] [place] [address] Sodium [Moles/Vol] 135 mmol/L Low 136-145 [facility] Comment on above: Performed By: #### L [id number] ####[employer]worker: JAZLYN BRUCE ([phone])[facility] ([facility])[address] [place] [address] Urea nitrogen [Mass/Vol] 13 mg/dL Normal 9-23 [facility] Comment on above: Performed By: #### L [id number] ####[employer]worker: JAZLYN BRUCE ([phone])[address] Basic metabolic 1998 panelon 03-19-2025 Anion gap [Moles/Vol] 13 mmol/L 3 - 13 mmol/L [facility] Calcium [Mass/Vol] 8.2 mg/dL Low 8.8 - 10. 0 mg/dL [facility] Chloride [Moles/Vol] 106 mmol/L 98 - 10 7 mmol/L [facility] CO2 [Moles/Vol] 16 mmol/L Low 23 - 31 mmol/L [facility] Creatinine [Mass/Vol] 0.73 mg/dL 0.72 - 1.25 mg/dL [facility] GFR/1.73 sq M.predicted (S/P/Bld) [Vol rate/Area] - PINF [facility] Comment on above: Calculation based on the Chronic Kidney Disease Epidemiology Collaboration (CKD-EPI) equation refit without adjustment for race Glucose [Mass/Vol] 149 mg/dL High 82 - 115 mg/dL [facility] Interpretation and review of laboratory results Abnormal [facility] Potassium [Moles/Vol] 4 mmol/L 3.5 - 5.1 mmol/L [facility] Comment on above: Plasma potassium sia ues may be up to 0.5 mmol/L lower than serum values. Sodium [Moles/Vol] 135 mmol/L Low 136 - 145 mmol/L [facility] Urea nitrogen [Mass/Vol] 13 mg/dL 9 - 23 mg/d L [facility] CBC W Auto Differential pane l (Bld)Ordered By: Lacy Power on 03-19-2025 Erythrocyte distribution width (RBC) [Ratio] 12.5 % 11.5 - 15.0 % [facility] Hematocrit (Bld) [Volume fraction] 37.6 % Low 40.0 - 52.0 % [facility] Hemoglobin (Bld) [Mass/Vol] 13.1 g/dL 13.0 - 18.0 g/dL [facility] Interpretation and review of laboratory results Abnormal [facility] IPF 3 [facility] MCH (RBC) [Entitic mass] 30.6 pg 26. 0 - 34.0 pg [facility] MCHC (RBC) [Mass/Vol] 34.8 % 30.5 - 36.0 % [facility] MCV (RBC) [Entitic vol] 87.9 fL 77.0 - 99.0 fL [facility] Platelet mean volume (Bld) [Entitic vol] 10.8 fL 9.0 - 12.7 fL [facility] Platelets (Bld) [#/Vol] 117 10*3/uL Low 140 - 440 10*3/uL [facility] RBC (Bld) [#/Vol] 4.28 10*6/uL Low 4.40 - 5.9 0 10*6/uL [facility] WBC (Bld) [#/Vol] 6.3 10*3/uL 3.6 - 10.7 10*3/uL [facility] CBC WITH AUTO DIFFERENTIALon 03-19-2025 Erythrocyte distribution width (RBC) [Ratio] 12.5 % Normal 11.5-15.0 [facility] Comment on above: Performed By: #### L [id number], [id number] ####[employer]: JAZLYN BRUCE ([phone])[facility] ([facility])[address] [place] [address] Hematocrit (Bld) [Volume fraction] 37.6 % Low 40.0-52.0 [facility] Comment on above: Performed By: #### L [id number], [id number] ####[employer]worker: JAZLYN BRUCE ([phone])[facility] ([facility])[address] [place] [address] Hemoglobin (Bld) [Mass/Vol] 13.1 g/dL Normal 13.0-18.0 [facility] Comment on above: Performed By: #### L [id number], [id number] ####[employer]: JAZLYN BRUCE ([phone])[facility])[address] [place] [address] IPF 3 Normal [facility] Comment on above: Performed By: #### L [id number], [id number] ####[employer]worker: JAZLYN BRUCE ([phone])[facility])[address] [place] [address] MCH (RBC) [Entitic mass] 30.6 pg Normal 26.0-34.0 [facility] Comment on above: Performed By: #### L [id number], [id number] ####[employer]: JAZLYN BRUCE ([phone])[facility])[address] [place] [address] MCHC 34.8 % Normal 30.5-36.0 [facility] Comment on above: Performed By: #### Ricardo [id number], [id number] ####[employer]: JAZLYN BRUCE ([phone])[facility])[address] [place] [address] MCV (RBC) [Entitic vol] 87.9 fL Normal 77.0-99.0 [facility] Comment on above: Performed By: #### L [id number], [id number] ####[employer]worker: JAZLYN BRUCE ([phone])[facility])[address] [place] [address] Platelet mean volume (Bld) [Entitic vol] 10.8 fL Normal 9.0-12.7 [facility] Comment on above: Performed By: #### L [id number], [id number] ####[employer]: JAZLYN BRUCE ([phone])[facility])[address] [place] [address] Platelets (Bld) [#/Vol] 117 10*3/uL Low 140-440 [facility] Comment on above: Performed By: #### L [id number], [id number] ####[employer]: JAZLYN BRUCE ([phone])[facility])[address] [place] [address] RBC (Bld) [#/Vol] 4.28 10*6/uL Low 4.40-5.90 [facility] Comment on above: Performed By: #### L [id number], [id number] ####[employer]: JAZLYN BRUCE ([phone])[facility] ([facility])[address] [place] [address] WBC (Bld) [#/Vol] 6.3 10*3/uL Normal 3.6-10.7 [facility] Comment on above: Performed By: #### L [id number], [id number] ####[employer]: JAZLYN BRUCE ([phone])[address] Laboratory - Hematology and Cell countson 03-19-2025 Band form neutrophils (Bld) [#/Vol] 0.4 10*3/uL High NINF - 0.0 10*3/uL [facility] Band form neutrophils/100 WBC (Bld) 6 % High NINF - 0 % [facility] [place] cells LM Ql (Bld) Slight Abnormal (none) [facility] Lymphocytes (Bld) [#/Vol] 0.1 10*3/uL Low 1.0 - 4.3 10*3/uL [facility] Lymphocytes/100 WBC (Bld) 1 % Low 15 - 45 % [facility] Monocytes (Bld) [#/Vol] 0.1 10*3/uL 0.0 - 0.9 10*3/uL [facility] Monocytes/100 WBC (Bld) 2 % Low 5 - 13 % [facility] Neutrophils (Bld) [#/Vol] 6 10*3/uL 1.8 - 7.5 10*3/uL [facility] Ovalocytes LM Ql (Bld) Slight Abnormal (none) [facility] Poikilocytosis LM Ql (Bld) Slight Abnormal (none) [facility] RBC morphology finding Nom (Bld) abnormal [facility] Segmented neutrophils/100 WBC (Bld) 90 % High 38 - 82 % [facility] Variant lymphocytes (Bld) [#/Vol] 0.1 10*3/uL High NINF - 0.0 10*3/uL [facility] Variant lymphocytes/100 WBC (Bld) 1 % High NINF - 0 % [facility] MANUAL DIFFERENTIAL (CELLAVI LUCAS)on 03-19-2025 BAND NEUTROPHILS TOTAL PER COUNTED LEUKOCYTES BY MANUAL COUNT 6 Normal [facility] Comment on above: Performed By: #### L [id number], [id number] ####[employer]: JAZLYN BRUCE ([phone])[facility] ([facility])[address] [place] [address] [place] BANDS (10*3/UL) IN BLOOD-CELLAVISION 0.4 10*3/uL High <=0.0 [facility] Comment on above: Performed By: #### L [id number], [id number] ####[employer]: JAZLYN BRUCE ([phone])[facility] ([facility])[address] [place] [address] [place] BASOPHILS TOTAL PER COUNTED LEUKOCYTES BY MANUAL COUNT Normal [facility] Comment on above: Performed By: #### L [id number], [id number] ####[employer]: JAZLYN BRUCE ([phone])[facility] ([facility])[address] [place] [address] [place] BLASTS TOTAL PER COUNTED LEUKOCYTES BY MANUAL COUNT Normal [facility] Comment on above: Performed By: #### L [id number], [id number] ####[employer]: JAZLYN BRUCE ([phone])[facility] ([facility])[address] [place] [address] [place] DARNELL CELLS PRESENCE IN BLOOD BY LIGHT MICROSCOPY Slight Abnormal (none) [facility] Comment on above: Performed By: #### L [id number], [id number] ####[employer]: JAZLYN BRUCE ([phone])[facility] ([facility])[address] [place] [address] [place] EOSINOPHILS TOTAL PER COUNTED LEUKOCYTES BY MANUAL COUNT Normal [facility] Comment on above: Performed By: #### L [id number], [id number] ####[employer]: JAZLYN BRUCE ([phone])[facility])[address] [place] [address] LYMPHOCYTE VARIANT/100 LEUKOCYTES IN BLOOD- CELLAVISION 1 % High <=0 [facility] Comment on above: Performed By: #### L [id number], [id number] ####[employer]: JAZLYN BRUCE ([phone])[facility] ([facility])[address] [place] [address] [place] LYMPHOCYTES (10*3/UL) IN BLOOD-CELLAVISION 0.1 10*3/uL Low 1.0-4.3 [facility] Comment on above: Performed By: #### L [id number], [id number] ####[employer]: JAZLNY BRUCE ([phone])[facility] ([facility])[address] [place] [address] LYMPHOCYTES TOTAL PER COUNTED LEUKOCYTES BY MANUAL COUNT 1 Normal [facility] Comment on above: Performed By: #### L [id number], [id number] ####[employer]: JAZLYN BRUCE ([phone])[facility])[address] [place] [address] [place] LYMPHOCYTES/100 LEUKOCYTES IN BLOOD-CELLAVISION 1 % Low 15-45 [facility] Comment on above: Performed By: #### L [id number], [id number] ####[employer]: JAZLYN BRUCE ([phone])[facility])[address] [place] [address] METAMYELOCYTES TOTAL PER COUNTED LEUKOCYTES BY MANUAL COUNT Normal [facility] Comment on above: Performed By: #### L [id number], [id number] ####[employer]: JAZLYN BRUCE ([phone])[facility])[address] [place] [address] [place] MONOCYTES (10*3/UL) IN BLOOD-CELLAVISION 0.1 10*3/uL Normal 0.0-0.9 [facility] Comment on above: Performed By: #### L [id number], [id number] ####[employer]: JAZLYN BRUCE ([phone])[facility] ([facility])[address] [place] [address] [place] MONOCYTES TOTAL PER COUNTED LEUKOCYTES BY MANUAL COUNT 2 Normal [facility] Comment on above: Performed By: #### L [id number], [id number] ####[employer]worker: JAZLYN BRUCE ([phone])[facility] ([facility])[address] [place] [address] [place] MONOCYTES/100 LEUKOCYTES IN BLOOD-KATIE 2 % Low 5-13 [facility] Comment on above: Performed By: #### L [id number], [id number] ####[employer]worker: JAZLYN BRUCE ([phone])[facility] ([facility])[address] [place] [address] MYELOCYTES COUNTED BY MANUAL COUNT Normal [facility] Comment on above: Performed By: #### L [id number], [id number] ####[employer]worker: JAZLYN BRUCE ([phone])[facility] ([facility])[address] [place] [address] [place] NEUTROPHILS BAND FORM/100 LEUKOCYTES IN BLOOD-CELLAVISI 6 % High <=0 [facility] Comment on above: Performed By: #### L [id number], [id number] ####[employer] Farmworker: JAZLYN BRUCE ([phone])[facility] ([facility])[address] [place] [address] NEUTROPHILS TOTAL PER COUNTED LEUKOCYTES BY MANUAL COUNT 94 Normal [facility] Comment on above: Performed By: #### L [id number], [id number] ####[employer] Farmworker: JAZLYN BRUCE ([phone])[facility] ([facility])[address] [place] [address] [place] OVALOCYTES PRESENCE IN BLOOD BY LIGHT MICROSCOPY Slight Abnormal (none) [facility] Comment on above: Performed By: #### L [id number], [id number] ####[employer] Farmworker: JAZLYN BRUCE ([phone])[facility] ([facility])[address] [place] [address] [place] POIKILOCYTOSIS (PRESENCE) IN BLOOD BY LIGHT MICROSCOPY Slight Abnormal (none) [facility] Comment on above: Performed By: #### L [id number], [id number] ####[employer] Farmworker: AJZLYN BRUCE ([phone])[facility] ([facility])[address] [place] [address] [place] PROMYELOCYTES TOTAL PER COUNTED LEUKOCYTES BY MANUAL COUNT Normal [facility] Comment on above: Performed By: #### L [id number], [id number] ####[employer] Farmworker: JAZLYN BRUCE ([phone])[facility] ([facility])[address] [place] [address] [place] RBC MORPHOLOGY IN BLOOD abnormal Normal [facility] Comment on above: Performed By: #### L [id number], [id number] ####[employer] Farmworker: JAZLYN BRUCE ([phone])[facility] ([facility])[address] [place] [address] [place] SEGMENTED NEUTROPHILS (10*3/UL) IN BLOOD-CELLAVISION 6.0 10*3/uL Normal 1.8-7.5 [facility] Comment on above: Performed By: #### L [id number], [id number] ####[employer] Farmworker: JAZLYN BRUCE ([phone])[facility] ([facility])[address] [place] [address] [place] SEGMENTED NEUTROPHILS/100 LEUKOCYTES-CE 90 % High 38-82 [facility] Comment on above: Performed By: #### L [id number], [id number] ####[employer] Farmworker: JAZLYN BRUCE ([phone])[facility] ([facility])[address] [place] [address] [place] UNCLASSIFIED CELLS TOTAL PER COUNTED LEUKOCYTES BY MANUAL COUNT Normal [facility] Comment on above: Performed By: #### L [id number], [id number] ####[employer] Farmworker: JAZLYN BRUCE ([phone])[facility] ([facility])[address] [place] [address] [place] VARIANT LYMPHOCYTES (10*3/UL) IN BLOOD-CELLAVISION 0.1 10*3/uL High <=0.0 [facility] Comment on above: Performed By: #### L [id number], [id number] ####[employer] Farmworker: JAZLYN BRUCE ([phone])[facility])[address] [place] [address] VARIANT LYMPHOCYTES TOTAL PER COUNTED LEUKOCYTES BY MANUAL COUNT 1 Normal [facility] Comment on above: Performed By: #### L [id number], [id number] ####[employer] Farmworker: JAZLYN BRUCE ([phone])[facility] ([facility])[address] [place] [address] No Panel Informationon 03-19 Atypical Lymphocytes Manual 1 [facility] Bands Manual 6 [facility] Basophils Manual [facility] Blasts [facility] Eosinophils Manual [facility] Interpretation and review of laboratory results Abnormal [facility] Lymphocytes Manual 1 [facility] Metamyelocytes Manual [facility] Monocytes Manual 2 [facility] Myelocytes Manual [facility] Neutrophils Manual 94 [facility] Promyelocytes Manual [facility] Unclassified Cells, Manual [facility] Nursing Noteon 03-19-2025 Nursing Note [...] he is not allowed to leave. Normal [facility] Progress Noteon 03-19-2025 Progress Note PHYSICAL THERAPY [facility] Treatment Note Name/MRN: Francisco Ramos ([id number]) Date of : 1950 Age: 74 y.o. [...] reach, left in bed, gait belt, and business risk consultant present Restraints: No Education Gait, transfers, balance [...] Olivia Noriega PTA [facility] Progress Note OCCUPATIONAL THERAPY [facility] Treatment Note Name/MRN: Francisco Ramos ([id number]) Date of : 1950 Age: 74 y.o. [...] notified, no alarms engaged upon entry, and business risk consultant present Restraints: No Education Education Given To: [...] Self YASHIRA Durant [facility] [id number] 03-18-2025 [id number] Spoke with [facility] regarding pt combative behavior with staff and PT recs for HHC, but will wait to discuss possible home care services with pt/family [place] to [place]. Product Manager [employer] following case for Discharge Needs. [facility] BASIC METABOLIC PANELon 07 Anion gap [Moles/Vol] 7 mmol/L Normal 3-13 [facility] Comment on above: Performed By: #### L [id number] ####[employer] Farmworker: JAZLYN BRUCE ([phone])[facility])[address] [place] [address] Calcium [Mass/Vol] 8.6 mg/dL Low 8.8-10.0 [facility] Comment on above: Performed By: #### L [id number] ####[employer] Farmworker: JAZLYN BRUCE ([phone])[facility])[address] [place] [address] Chloride [Moles/Vol] 106 mmol/L Normal 98-107 [facility] Comment on above: Performed By: #### L [id number] ####[employer] Farmworker: JAZLYN BRUCE ([phone])[facility] ([facility])[address] [place] [address] CO2 [Moles/Vol] 24 mmol/L Normal 23-31 [facility] Comment on above: Performed By: #### L [id number] ####[employer] Farmworker: JAZLYN BRUCE ([phone])[facility] ([facility])[address] [place] [address] Creatinine [Mass/Vol] 0.75 mg/dL Normal 0.72-1.25 [facility] Comment on above: Performed By: #### L [id number] ####[employer] Farmworker: JAZLYN BRUCE ([phone])[facility])[address] [place] [address] GLOMERULAR FILTRATION RATE ML/MIN/1.73 SQ M.PREDICTED >90.0 Normal >60.0 [facility] Comment on above: Result Comment: Calc ulation based on the Chronic Kidney Disease Epidemiology Collaboration (CKD-EPI) equation refit without adjustment for race Performed By: #### L [id number] ####[employer] Farmworker: JAZLYN BRUCE ([phone])[facility] ([facility])[address] [place] [address] Glucose [Mass/Vol] 78 mg/dL Low 82-115 [facility] Comment on above: Performed By: #### L [id number] ####[employer] Farmworker: JAZLYN BRUCE ([phone])[facility])[address] [place] [address] Potassium [Moles/Vol] 3.6 mmol/L Normal 3.5-5.1 [facility] Comment on above: Result Comment: [facility] potassium values may be up to 0.5 mmol/L lower than serum values. Performed By: #### L [id number] ####[employer] Farmworker: JAZLYN BRUCE ([phone])[facility] ([facility])[address] [place] [address] Sodium [Moles/Vol] 137 mmol/L Normal 136-145 [facility] Comment on above: Performed By: #### L [id number] ####[employer] Farmworker: JAZLYN BRUCE ([phone])[facility] [place] [address] Urea nitrogen [Mass/Vol] 9 mg/dL Normal 9-23 [facility] Comment on above: Performed By: #### L [id number] ####[employer] Farmworker: JAZLYN BRUCE ([phone])[facility] ([facility])[address] [place] [address] Basic metabolic 1998 panelon 03-18-2025 Anion gap [Moles/Vol] 7 mmol/L 3 - 13 mmol/L [facility] Calcium [Mass/Vol] 8.6 mg/dL Low 8.8 - 10. 0 mg/dL [facility] Chloride [Moles/Vol] 106 mmol/L 98 - 10 7 mmol/L [facility] CO2 [Moles/Vol] 24 mmol/L 23 - 31 mmol/L [facility] Creatinine [Mass/Vol] 0.75 mg/dL 0.72 - 1.25 mg/dL [facility] GFR/1.73 sq M.predicted (S/P/Bld) [Vol rate/Area] - PINF [facility] Comment on above: Calculation based on the Chronic Kidney Disease Epidemiology Collaboration (CKD-EPI) equation refit without adjustment for race Glucose [Mass/Vol] 78 mg/dL Low 82 - 115 mg/dL [facility] Interpretation and review of laboratory results Abnormal [facility] Potassium [Moles/Vol] 3.6 mmol/L 3.5 - 5.1 mmol/L [facility] Comment on above: Plasma potassium sia ues may be up to 0.5 mmol/L lower than serum values. Sodium [Moles/Vol] 137 mmol/L 136 - 145 mmol/L [facility] Urea nitrogen [Mass/Vol] 9 mg/dL 9 - 23 mg/d L [facility] CBC W Auto Differential pane l (Bld)on 03-18-2025 Basophils (Bld) [#/Vol] 0 10*3/uL 0.0 - 0.2 10*3/uL [facility] Basophils/100 WBC (Bld) 0 % 0.0 - 2.0 % [facility] Eosinophils (Bld) [#/Vol] 0 10*3/uL 0.0 - 0.5 10*3/uL [facility] Eosinophils/100 WBC (Bld) 0 % 0.0 - 6.0 % [facility] Erythrocyte distribution width (RBC) [Ratio] 12.8 % 11.5 - 15.0 % [facility] Hematocrit (Bld) [Volume fraction] 40.2 % 40.0 - 52.0 % [facility] Hemoglobin (Bld) [Mass/Vol] 13.9 g/dL 13.0 - 18.0 g/dL [facility] Immature granulocytes (Bld) [#/Vol] 0 10*3/uL NINF - 0.1 10*3/uL [facility] Immature granulocytes/100 WBC (Bld) 0.4 % 0.0 - 2.0 % [facility] Interpretation and review of laboratory results Abnormal [facility] IPF 4 [facility] Lymphocytes (Bld) [#/Vol] 1 10*3/uL 1.0 - 4.3 10*3/uL [facility] Lymphocytes/100 WBC (Bld) 21 % 15.0 - 45.0 % [facility] MCH (RBC) [Entitic mass] 30.8 pg 26. 0 - 34.0 pg [facility] MCHC (RBC) [Mass/Vol] 34.6 % 30.5 - 36.0 % [facility] MCV (RBC) [Entitic vol] 88.9 fL 77.0 - 99.0 fL [facility] Monocytes (Bld) [#/Vol] 0.5 10*3/uL 0.0 - 0.9 10*3/uL [facility] Monocytes/100 WBC (Bld) 10 % 5.0 - 13.0 % [facility] Neutrophils (Bld) [#/Vol] 3.2 10*3/uL 1.8 - 7.5 10*3/uL [facility] Neutrophils/100 WBC (Bld) 68.6 % 38.0 - 82.0 % [facility] Nucleated RBC/100 WBC (Bld) [Ratio] 0 % [facility] Platelet mean volume (Bld) [Entitic vol] 10.7 fL 9.0 - 12.7 fL [facility] Platelets (Bld) [#/Vol] 127 10*3/uL Low 140 - 440 10*3/uL [facility] RBC (Bld) [#/Vol] 4.52 10*6/uL 4.40 - 5.9 0 10*6/uL [facility] WBC (Bld) [#/Vol] 4.6 10*3/uL 3.6 - 10.7 10*3/uL [facility] CBC WITH AUTO DIFFERENTIALon 03-18-2025 Basophils (Bld) [#/Vol] 0.0 10*3/uL Normal 0.0-0.2 [facility] Comment on above: Performed By: #### L [id number] ####[employer] Farmworker: JAZLYN BRUCE ([phone])[facility] ([facility])[address] [place] [address] Basophils/100 WBC (Bld) 0.0 % Normal 0.0-2.0 [facility] Comment on above: Performed By: #### L [id number] ####[employer] Farmworker: JAZLYN BRUCE ([phone])[facility])[address] [place] [address] Eosinophils (Bld) [#/Vol] 0.0 10*3/uL Normal 0.0-0.5 [facility] Comment on above: Performed By: #### L [id number] ####[employer] Farmworker: JAZLYN BRUCE ([phone])[facility])[address] [place] [address] Eosinophils/100 WBC (Bld) 0.0 % Normal 0.0-6.0 [facility] Comment on above: Performed By: #### L [id number] ####[employer] Farmworker: JAZLYN BRUCE ([phone])[facility])[address] [place] [address] Erythrocyte distribution width (RBC) [Ratio] 12.8 % Normal 11.5-15.0 [facility] Comment on above: Performed By: #### L [id number] ####[employer] Farmworker: JAZLYN BRUCE ([phone])[facility])[address] [place] [address] Hematocrit (Bld) [Volume fraction] 40.2 % Normal 40.0-52.0 [facility] Comment on above: Performed By: #### L [id number] ####[employer] Farmworker: JAZLYN BRUCE ([phone])[facility])[address] [place] [address] Hemoglobin (Bld) [Mass/Vol] 13.9 g/dL Normal 13.0-18.0 [facility] Comment on above: Performed By: #### L [id number] ####[employer] Farmworker: JAZLYN BRUCE ([phone])[facility] ([facility])[address] [place] [address] IMMATURE GRANS % 0.4 % Normal 0.0-2.0 [facility] Comment on above: Performed By: #### L [id number] ####[employer] Farmworker: JAZLYN BRUCE ([phone])[facility])[address] [place] [address] IMMATURE GRANS ABSOLUTE 0.0 10*3/uL Normal <0.1 [facility] Comment on above: Performed By: #### L [id number] ####[employer] Farmworker: JAZLYN BRUCE ([phone])[facility])[address] [place] [address] [place] IPF 4 Normal [facility] Comment on above: Performed By: #### L [id number] ####[employer] Farmworker: JAZLYN BRUCE ([phone])[facility])[address] [place] [address] [place] Lymphocytes (Bld) [#/Vol] 1.0 10*3/uL Normal 1.0-4.3 [facility] Comment on above: Performed By: #### L [id number] ####[employer] Farmworker: JAZLYN BRUCE ([phone])[facility])[address] [place] [address] [place] Lymphocytes/100 WBC (Bld) 21.0 % Normal 15.0-45.0 [facility] Comment on above: Performed By: #### L [id number] ####[employer] Farmworker: JAZLYN BRUCE ([phone])[facility])[address] [place] [address] MCH (RBC) [Entitic mass] 30.8 pg Normal 26.0-34.0 [facility] Comment on above: Performed By: #### L [id number] ####[employer] Farmworker: JAZLYN BRUCE ([phone])[facility])[address] [place] [address] MCHC 34.6 % Normal 30.5-36.0 [facility] Comment on above: Performed By: #### L [id number] ####[employer] Farmworker: JAZLYN BRUCE ([phone])[facility])[address] [place] [address] MCV (RBC) [Entitic vol] 88.9 fL Normal 77.0-99.0 [facility] Comment on above: Performed By: #### L [id number] ####[employer] Farmworker: JAZLYN BRUCE ([phone])[facility])[address] [place] [address] Monocytes (Bld) [#/Vol] 0.5 10*3/uL Normal 0.0-0.9 [facility] Comment on above: Performed By: #### L [id number] ####[employer] Farmworker: JAZLYN BRUCE ([phone])[facility])[address] [place] [address] Monocytes/100 WBC (Bld) 10.0 % Normal 5.0-13.0 [facility] Comment on above: Performed By: #### L [id number] ####[employer] Farmworker: JAZLYN BRUCE ([phone])[facility])[address] [place] [address] NEUTROPHILS ABSOLUTE 3.2 10*3/uL Normal 1.8-7.5 [facility] Comment on above: Performed By: #### L [id number] ####[employer] Farmworker: JAZLYN BRUCE ([phone])[facility])[address] [place] [address] Neutrophils/100 WBC (Bld) 68.6 % Normal 38.0-82.0 [facility] Comment on above: Performed By: #### L [id number] ####[employer] Farmworker: JAZLYN BRUCE ([phone])[facility] ([facility])[address] [place] [address] NRBC 0.0 /100 WBCs Normal 0.0-2.0 [facility] Comment on above: Performed By: #### L [id number] ####[employer] Farmworker: JAZLYN BRUCE ([phone])[facility] ([facility])[address] [place] [address] Platelet mean volume (Bld) [Entitic vol] 10.7 fL Normal 9.0-12.7 [facility] Comment on above: Performed By: #### L [id number] ####[employer] Farmworker: JAZLYN BRUCE ([phone])[facility] ([facility])[address] [place] [address] Platelets (Bld) [#/Vol] 127 10*3/uL Low 140-440 [facility] Comment on above: Performed By: #### L [id number] ####[employer] Farmworker: JAZLYN BRUCE ([phone])[facility] ([facility])[address] [place] [address] RBC (Bld) [#/Vol] 4.52 10*6/uL Normal 4.40-5.90 [facility] Comment on above: Performed By: #### L [id number] ####[employer] Farmworker: JAZLYN BRUCE ([phone])[facility] ([facility])[address] [place] [address] WBC (Bld) [#/Vol] 4.6 10*3/uL Normal 3.6-10.7 [facility] Comment on above: Performed By: #### L [id number] ####[employer] Farmworker: JAZLYN BRUCE ([phone])[facility])[address] [place] [address] Nursing Noteon 03-18-2025 Nursing Note Report called to H6 NUr[address] [facility] Nursing Note Called and updated pt at this time [facility] Nursing Note Verified with patients that pt. Had jello and lemon ice yesterday for lunch. [facility] Op Noteon 03-18-2025 Op Note Date: 03/18/2025 [...] Tissue TISSUE EXAM Bronson Jarrett MD 03/18/25 9732 Routine Description: SIGMOID COLON Staff: Glue Reel Operator: Joseph Ibarra RN; Nika Schuster RN Relief Glue Reel Operator: Gini Awan RN; Cecilia Tinajero Relief Scrub: [...] receiving Vancomycin or flouroquinolone) [facility] Op Note OPERATIVE NOTE PATIENT NAME: Francisco Ramos : 1950 ATTENDING PHYSICIAN: Bronson Jarrett MD PROCEDURE DATE: 03/18/2025 PREOPERATIVE DIAGNOSIS: Sigmoid volvulus POSTOPERATIVE DIAGNOSIS: Same SURGEON: Bronson Jarrett MD DIVISION SERVICE MANAGER: Yasmin Barry OPERATION: Laparoscopic sigmoid colectomy ANESTHESIA: [...] was opened up. We then created our [place] rectal anastomosis. We had to complete anastomotic [...] to the PACU in stable condition. Normal [facility] Progress Noteon 03-18-2025 Progress Note Nutrition rescreen completed. Patient is NPO/Clear liquid >3 days. Refer to Dietitian. Normal [facility] BASIC METABOLIC PANELon - Anion gap [Moles/Vol] 8 mmol/L Normal 3-13 [facility] Comment on above: Performed By: #### L [id number] ####[employer] Farmworker: JAZLYN [phone])[address] Calcium [Mass/Vol] 8.8 mg/dL Normal 8.8-10.0 [facility] Comment on above: Performed By: #### L [id number] ####[employer] Farmworker: JAZLYN BRUCE ([phone])[facility])[address] [place] [address] [place] Chloride [Moles/Vol] 107 mmol/L Normal 98-107 [facility] Comment on above: Performed By: #### L [id number] ####[employer] Farmworker: JAZLYN BRUCE ([phone])[facility])[address] [place] [address] [place] CO2 [Moles/Vol] 22 mmol/L Low 23-31 [facility] Comment on above: Performed By: #### L [id number] ####[employer] Farmworker: JAZYLN BRUCE ([phone])[facility])[address] [place] [address] Creatinine [Mass/Vol] 0.76 mg/dL Normal 0.72-1.25 [facility] Comment on above: Performed By: #### L [id number] ####[employer] Farmworker: JAZLYN BRUCE ([phone])[facility])[address] [place] [address] GLOMERULAR FILTRATION RATE ML/MIN/1.73 SQ M.PREDICTED >90.0 Normal >60.0 [facility] Comment on above: Result Comment: Calc ulation based on the Chronic Kidney Disease Epidemiology Collaboration (CKD-EPI) equation refit without adjustment for race Performed By: #### L [id number] ####[employer] Farmworker: JAZLYN BRUCE ([phone])[facility])[address] [place] [address] Glucose [Mass/Vol] 87 mg/dL Normal 82-115 [facility] Comment on above: Performed By: #### L [id number] ####[employer] Farmworker: JAZLYN BRUCE ([phone])[facility])[address] [place] [address] Potassium [Moles/Vol] 3.8 mmol/L Normal 3.5-5.1 [facility] Comment on above: Result Comment: [facility] potassium values may be up to 0.5 mmol/L lower than serum values. Performed By: #### L [id number] ####[employer] Farmworker: JAZLYN BRUCE ([phone])[facility] ([facility])[address] [place] [address] [place] Sodium [Moles/Vol] 137 mmol/L Normal 136-145 [facility] Comment on above: Performed By: #### L [id number] ####[employer] Farmworker: JAZLYN BRUCE ([phone])[facility])[address] [place] [address] [place] Urea nitrogen [Mass/Vol] 13 mg/dL Normal 9-23 [facility] Comment on above: Performed By: #### L [id number] ####[employer] Farmworker: JAZLYN BRUCE ([phone])[facility] ([address] Basic metabolic 1998 panelon 03-17-2025 Anion gap [Moles/Vol] 8 mmol/L 3 - 13 mmol/L [facility] Calcium [Mass/Vol] 8.8 mg/dL 8.8 - 10. 0 mg/dL [facility] Chloride [Moles/Vol] 107 mmol/L 98 - 10 7 mmol/L [facility] CO2 [Moles/Vol] 22 mmol/L Low 23 - 31 mmol/L [facility] Creatinine [Mass/Vol] 0.76 mg/dL 0.72 - 1.25 mg/dL [facility] GFR/1.73 sq M.predicted (S/P/Bld) [Vol rate/Area] - PINF [facility] Comment on above: Calculation based on the Chronic Kidney Disease Epidemiology Collaboration (CKD-EPI) equation refit without adjustment for race Glucose [Mass/Vol] 87 mg/dL 82 - 115 mg/dL [facility] Interpretation and review of laboratory results Abnormal [facility] Potassium [Moles/Vol] 3.8 mmol/L 3.5 - 5.1 mmol/L [facility] Comment on above: Plasma potassium sia ues may be up to 0.5 mmol/L lower than serum values. Sodium [Moles/Vol] 137 mmol/L 136 - 145 mmol/L [facility] Urea nitrogen [Mass/Vol] 13 mg/dL 9 - 23 mg/d L [facility] CBC W Auto Differential pane l (Bld)on 03-17-2025 Basophils (Bld) [#/Vol] 0 10*3/uL 0.0 - 0.2 10*3/uL [facility] Basophils/100 WBC (Bld) 0.2 % 0.0 - 2.0 % [facility] Eosinophils (Bld) [#/Vol] 0 10*3/uL 0.0 - 0.5 10*3/uL [facility] Eosinophils/100 WBC (Bld) 0 % 0.0 - 6.0 % [facility] Erythrocyte distribution width (RBC) [Ratio] 12.8 % 11.5 - 15.0 % [facility] Hematocrit (Bld) [Volume fraction] 42.1 % 40.0 - 52.0 % [facility] Hemoglobin (Bld) [Mass/Vol] 14.3 g/dL 13.0 - 18.0 g/dL [facility] Immature granulocytes (Bld) [#/Vol] 0 10*3/uL NINF - 0.1 10*3/uL [facility] Immature granulocytes/100 WBC (Bld) 0.2 % 0.0 - 2.0 % [facility] Interpretation and review of laboratory results Abnormal [facility] IPF 4 [facility] Lymphocytes (Bld) [#/Vol] 0.7 10*3/uL Low 1.0 - 4.3 10*3/uL [facility] Lymphocytes/100 WBC (Bld) 12.7 % Low 15.0 - 45.0 % [facility] MCH (RBC) [Entitic mass] 31 pg 26. 0 - 34.0 pg [facility] MCHC (RBC) [Mass/Vol] 34 % 30.5 - 36.0 % [facility] MCV (RBC) [Entitic vol] 91.3 fL 77.0 - 99.0 fL [facility] Monocytes (Bld) [#/Vol] 0.7 10*3/uL 0.0 - 0.9 10*3/uL [facility] Monocytes/100 WBC (Bld) 13 % 5.0 - 13.0 % [facility] Neutrophils (Bld) [#/Vol] 4.1 10*3/uL 1.8 - 7.5 10*3/uL [facility] Neutrophils/100 WBC (Bld) 73.9 % 38.0 - 82.0 % [facility] Nucleated RBC/100 WBC (Bld) [Ratio] 0 % [facility] Platelet mean volume (Bld) [Entitic vol] 10.8 fL 9.0 - 12.7 fL [facility] Platelets (Bld) [#/Vol] 105 10*3/uL Low 140 - 440 10*3/uL [facility] RBC (Bld) [#/Vol] 4.61 10*6/uL 4.40 - 5.9 0 10*6/uL [facility] WBC (Bld) [#/Vol] 5.5 10*3/uL 3.6 - 10.7 10*3/uL [facility] CBC WITH AUTO DIFFERENTIALon 03-17-2025 Basophils (Bld) [#/Vol] 0.0 10*3/uL Normal 0.0-0.2 [facility] Comment on above: Performed By: #### L [id number] ####[employer]: JAZLYN BRUCE ([phone])[facility])[address] [place] [address] Basophils/100 WBC (Bld) 0.2 % Normal 0.0-2.0 [facility] Comment on above: Performed By: #### L [id number] ####[employer]: JAZLYN BRUCE ([phone])[facility])[address] [place] [address] Eosinophils (Bld) [#/Vol] 0.0 10*3/uL Normal 0.0-0.5 [facility] Comment on above: Performed By: #### L [id number] ####[employer]: JAZLYN BRUCE ([phone])[facility] ([facility])[address] [place] [address] Eosinophils/100 WBC (Bld) 0.0 % Normal 0.0-6.0 [facility] Comment on above: Performed By: #### L [id number] ####[employer]: JAZLYN BRUCE ([phone])[facility])[address] [place] [address] Erythrocyte distribution width (RBC) [Ratio] 12.8 % Normal 11.5-15.0 [facility] Comment on above: Performed By: #### L [id number] ####[employer]: JAZLYN BRUCE ([phone])[facility])[address] [place] [address] Hematocrit (Bld) [Volume fraction] 42.1 % Normal 40.0-52.0 [facility] Comment on above: Performed By: #### L [id number] ####[employer]: JAZLYN BRUCE ([phone])[facility])[address] [place] [address] Hemoglobin (Bld) [Mass/Vol] 14.3 g/dL Normal 13.0-18.0 [facility] Comment on above: Performed By: #### L [id number] ####[employer]: JAZLYN BRUCE ([phone])[facility])[address] [place] [address] IMMATURE GRANS % 0.2 % Normal 0.0-2.0 [facility] Comment on above: Performed By: #### L [id number] ####[employer]: JAZLYN BRUCE ([phone])[facility])[address] [place] [address] IMMATURE GRANS ABSOLUTE 0.0 10*3/uL Normal <0.1 [facility] Comment on above: Performed By: #### L [id number] ####[employer]: JAZLYN BRUCE ([phone])[facility])[address] [place] [address] IPF 4 Normal [facility] Comment on above: Performed By: #### L [id number] ####[employer]: JAZLYN BRUCE ([phone])[facility])[address] [place] [address] Lymphocytes (Bld) [#/Vol] 0.7 10*3/uL Low 1.0-4.3 [facility] Comment on above: Performed By: #### L [id number] ####[employer]: JAZLYN BRUCE ([phone])[facility])[address] [place] [address] Lymphocytes/100 WBC (Bld) 12.7 % Low 15.0-45.0 [facility] Comment on above: Performed By: #### L [id number] ####[employer]: JAZLYN BRUCE ([phone])[facility])[address] [place] [address] MCH (RBC) [Entitic mass] 31.0 pg Normal 26.0-34.0 [facility] Comment on above: Performed By: #### L [id number] ####[employer]worker: JAZLYN [phone])[facility])[address] [place] [address] MCHC 34.0 % Normal 30.5-36.0 [facility] Comment on above: Performed By: #### L [id number] ####[employer]worker: JAZLYN BRUCE ([phone])[facility])[address] [place] [address] MCV (RBC) [Entitic vol] 91.3 fL Normal 77.0-99.0 [facility] Comment on above: Performed By: #### L [id number] ####[employer]: JAZLYN BRUCE ([phone])[facility])[address] [place] [address] Monocytes (Bld) [#/Vol] 0.7 10*3/uL Normal 0.0-0.9 [facility] Comment on above: Performed By: #### L [id number] ####[employer]: JAZLYN BRUCE ([phone])[facility])[address] [place] [address] Monocytes/100 WBC (Bld) 13.0 % Normal 5.0-13.0 [facility] Comment on above: Performed By: #### L [id number] ####[employer]: JAZLYN BRUCE ([phone])[facility])[address] [place] [address] NEUTROPHILS ABSOLUTE 4.1 10*3/uL Normal 1.8-7.5 [facility] Comment on above: Performed By: #### L [id number] ####[employer]worker: JAZLYN BRUCE ([phone])[facility])[address] [place] [address] Neutrophils/100 WBC (Bld) 73.9 % Normal 38.0-82.0 [facility] Comment on above: Performed By: #### L [id number] ####[employer]: JAZLYN BRUCE ([phone])[facility])[address] [place] [address] NRBC 0.0 /100 WBCs Normal 0.0-2.0 [facility] Comment on above: Performed By: #### L [id number] ####[employer]: JAZLYN BRUCE ([phone])[facility])[address] [place] [address] Platelet mean volume (Bld) [Entitic vol] 10.8 fL Normal 9.0-12.7 [facility] Comment on above: Performed By: #### L [id number] ####[employer]: JAZLYN BRUCE ([phone])[facility])[address] [place] [address] Platelets (Bld) [#/Vol] 105 10*3/uL Low 140-440 [facility] Comment on above: Performed By: #### L [id number] ####[employer]worker: JAZLYN BRUCE ([phone])[facility])[address] [place] [address] RBC (Bld) [#/Vol] 4.61 10*6/uL Normal 4.40-5.90 [facility] Comment on above: Performed By: #### L [id number] ####[employer]: JAZLYN BRUCE ([phone])[facility])[address] [place] [address] WBC (Bld) [#/Vol] 5.5 10*3/uL Normal 3.6-10.7 [facility] Comment on above: Performed By: #### L [id number] ####[employer]: JAZLYN BRUCE ([phone])[facility])[address] [place] [address] Laboratory - Coagulationon 0 03-17-2025 aPTT Coag (PPP) [Time] 32.5 s High 20.0 - 30.5 s [facility] INR Coag (PPP) [Relative time] 1.1 {INR} 0.9 - 1.1 [facility] Comment on above: Recommended Anticoag ulant Therapy: [...] [Time] 11.2 s 9.0 - 12.0 s [facility] No Panel Informationon 03-17 Interpretation and review of laboratory results Abnormal [facility] PROTIME AND APTTon aPTT Coag (Bld) [Time] 32.5 s High 20.0-30.5 [facility] Comment on above: Performed By: #### L [id number] ####[employer]: JAZLYN BRUCE ([phone])[address] INR Coag (PPP) [Relative time] 1.1 {INR} Normal 0.9-1.1 [facility] Comment on above: Result Comment: Jean-Paul mmended [...] prevent Myocardial Infarction Performed By: #### L [id number] ####[employer]worker: JAZLYN BRUCE ([phone])[facility])[address] [place] [address] PT Coag (PPP) [Time] 11.2 s Normal 9.0-12.0 [facility] Comment on above: Performed By: #### L [id number] ####[employer]worker: JAZLYN BRUCE ([phone])[address] XR ABDOMEN 1 VIEWon 03-17-20 25 [...] 8:[address] [facility] XR Abdomen Single viewon Rectal tube has [...] 03/17/2025 Patient Name: FRANCISCO RAMOS : 1950 [facility]#: [id number] Exam Date/Time: 03/17/2025 07:28 Procedure: XR ABDOMEN [...] Date/Time: 03/17/2025 8:00 AM EDT [facility] Study observation (narrative) [facility] XR Abdomen Single viewOrdere d By: Leo Dee on 03-17-2025 [employer] [facility] Work Phone: Bilirubin Test strip Ql (U)O rdered By: Brijesh Frederick on 03-16-2025 Bilirubin Ql (U) Negative Negative [facility] CBC W Auto Differential pane l (Bld)on 03-16-2025 Basophils (Bld) [#/Vol] 0 10*3/uL 0.0 - 0.2 10*3/uL [employer] [facility] Basophils/100 WBC (Bld) 0 % 0.0 - 2.0 % [facility] Eosinophils (Bld) [#/Vol] 0 10*3/uL 0.0 - 0.5 10*3/uL [employer] [facility] Eosinophils/100 WBC (Bld) 0 % 0.0 - 6.0 % [employer] [facility] Erythrocyte distribution width (RBC) [Ratio] 13 % 11.5 - 15.0 % [facility] Hematocrit (Bld) [Volume fraction] 38.8 % Low 40.0 - 52.0 % [employer] [facility] Hemoglobin (Bld) [Mass/Vol] 12.9 g/dL Low 13.0 - 18.0 g/dL [employer] [facility] Immature granulocytes (Bld) [#/Vol] 0 10*3/uL NINF - 0.1 10*3/uL [facility] Immature granulocytes/100 WBC (Bld) 0.3 % 0.0 - 2.0 % [facility] Interpretation and review of laboratory results Abnormal [facility] IPF 4 [facility] Lymphocytes (Bld) [#/Vol] 0.8 10*3/uL Low 1.0 - 4.3 10*3/uL [facility] Lymphocytes/100 WBC (Bld) 13.6 % Low 15.0 - 45.0 % [facility] MCH (RBC) [Entitic mass] 30.6 pg 26. 0 - 34.0 pg [facility] MCHC (RBC) [Mass/Vol] 33.2 % 30.5 - 36.0 % [facility] MCV (RBC) [Entitic vol] 92.2 fL 77.0 - 99.0 fL [facility] Monocytes (Bld) [#/Vol] 0.6 10*3/uL 0.0 - 0.9 10*3/uL [facility] Monocytes/100 WBC (Bld) 10.5 % 5.0 - 13.0 % [facility] Neutrophils (Bld) [#/Vol] 4.5 10*3/uL 1.8 - 7.5 10*3/uL [facility] Neutrophils/100 WBC (Bld) 75.6 % 38.0 - 82.0 % [facility] Nucleated RBC/100 WBC (Bld) [Ratio] 0 % [facility] Platelet mean volume (Bld) [Entitic vol] 10.8 fL 9.0 - 12.7 fL [facility] Platelets (Bld) [#/Vol] 126 10*3/uL Low 140 - 440 10*3/uL [facility] RBC (Bld) [#/Vol] 4.21 10*6/uL Low 4.40 - 5.9 0 10*6/uL [facility] WBC (Bld) [#/Vol] 6 10*3/uL 3.6 - 10.7 10*3/uL [facility] CBC WITH AUTO DIFFERENTIALon 03-16-2025 Basophils (Bld) [#/Vol] 0.0 10*3/uL Normal 0.0-0.2 [facility] Comment on above: Performed By: #### L [id number] ####[employer]: JAZLYN BRUCE ([phone])[facility])[address] [place] [address] Basophils/100 WBC (Bld) 0.0 % Normal 0.0-2.0 [facility] Comment on above: Performed By: #### L [id number] ####[employer]worker: JAZLYN BRUCE ([phone])[facility])[address] [place] [address] Eosinophils (Bld) [#/Vol] 0.0 10*3/uL Normal 0.0-0.5 [facility] Comment on above: Performed By: #### L [id number] ####[employer]: JAZLYN BRUCE ([phone])[facility])[address] [place] [address] Eosinophils/100 WBC (Bld) 0.0 % Normal 0.0-6.0 [facility] Comment on above: Performed By: #### L [id number] ####[employer]worker: JAZLYN BRUCE ([phone])[facility])[address] [place] [address] Erythrocyte distribution width (RBC) [Ratio] 13.0 % Normal 11.5-15.0 [facility] Comment on above: Performed By: #### L [id number] ####[employer]worker: JAZLYN BRUCE ([phone])[facility])[address] [place] [address] Hematocrit (Bld) [Volume fraction] 38.8 % Low 40.0-52.0 [facility] Comment on above: Performed By: #### L [id number] ####[employer]: JAZLYN BRUCE ([phone])[facility])[address] [place] [address] Hemoglobin (Bld) [Mass/Vol] 12.9 g/dL Low 13.0-18.0 [facility] Comment on above: Performed By: #### L [id number] ####[employer]: JAZLYN BRUCE ([phone])[facility])[address] [place] [address] IMMATURE GRANS % 0.3 % Normal 0.0-2.0 [facility] Comment on above: Performed By: #### L [id number] ####[employer]worker: JAZLYN BRUCE ([phone])[facility])[address] [place] [address] IMMATURE GRANS ABSOLUTE 0.0 10*3/uL Normal <0.1 [facility] Comment on above: Performed By: #### L [id number] ####[employer]: JAZLYN BRUCE ([phone])[facility])[address] [place] [address] IPF 4 Normal [facility] Comment on above: Performed By: #### L [id number] ####[employer]: JAZLYN BRUCE ([phone])[facility])[address] [place] [address] Lymphocytes (Bld) [#/Vol] 0.8 10*3/uL Low 1.0-4.3 [facility] Comment on above: Performed By: #### L [id number] ####[employer]: JAZLYN BRUCE ([phone])[facility])[address] [place] [address] Lymphocytes/100 WBC (Bld) 13.6 % Low 15.0-45.0 [facility] Comment on above: Performed By: #### L [id number] ####[employer]: JAZLYN BRUCE ([phone])[facility])[address] [place] [address] MCH (RBC) [Entitic mass] 30.6 pg Normal 26.0-34.0 [facility] Comment on above: Performed By: #### L [id number] ####[employer]: JAZLYN BRUCE ([phone])[facility])[address] [place] [address] MCHC 33.2 % Normal 30.5-36.0 [facility] Comment on above: Performed By: #### L [id number] ####[employer]worker: JAZLYN BRUCE ([phone])[facility])[address] [place] [address] MCV (RBC) [Entitic vol] 92.2 fL Normal 77.0-99.0 [facility] Comment on above: Performed By: #### L [id number] ####[employer]: JAZLYN BRUCE ([phone])[facility])[address] [place] [address] Monocytes (Bld) [#/Vol] 0.6 10*3/uL Normal 0.0-0.9 [facility] Comment on above: Performed By: #### L [id number] ####[employer]: JAZLYN BRUCE ([phone])[facility])[address] [place] [address] Monocytes/100 WBC (Bld) 10.5 % Normal 5.0-13.0 [facility] Comment on above: Performed By: #### L [id number] ####[employer]: JAZLYN BRUCE ([phone])[facility])[address] [place] [address] NEUTROPHILS ABSOLUTE 4.5 10*3/uL Normal 1.8-7.5 [facility] Comment on above: Performed By: #### L [id number] ####[employer]: JAZLYN BRUCE ([phone])[facility])[address] [place] [address] Neutrophils/100 WBC (Bld) 75.6 % Normal 38.0-82.0 [facility] Comment on above: Performed By: #### L [id number] ####[employer]worker: JAZLYN BRUCE ([phone])[facility])[address] [place] [address] NRBC 0.0 /100 WBCs Normal 0.0-2.0 [facility] Comment on above: Performed By: #### L [id number] ####[employer]worker: JAZLYN BRUCE ([phone])[facility])[address] [place] [address] Platelet mean volume (Bld) [Entitic vol] 10.8 fL Normal 9.0-12.7 [facility] Comment on above: Performed By: #### L [id number] ####[employer]: JAZLYN BRUCE ([phone])[facility])[address] [place] [address] Platelets (Bld) [#/Vol] 126 10*3/uL Low 140-440 [facility] Comment on above: Performed By: #### L [id number] ####[employer]: JAZLYN BRUCE ([phone])[facility])[address] [place] [address] RBC (Bld) [#/Vol] 4.21 10*6/uL Low 4.40-5.90 [facility] Comment on above: Performed By: #### L [id number] ####[employer]: JAZLYN BRUCE ([phone])[facility])[address] [place] [address] WBC (Bld) [#/Vol] 6.0 10*3/uL Normal 3.6-10.7 [facility] Comment on above: Performed By: #### L [id number] ####[employer]: JAZLYN BRUCE ([phone])[facility])[address] [place] [address] COMPREHENSIVE METABOLIC PANE Ken 03-16-2025 Albumin [Mass/Vol] 3.5 g/dL Normal 3.4-4.8 [facility] Comment on above: Performed By: #### L [id number], LAB17 ####[employer]: JAZLYN BRUCE ([phone])[facility])[address] [place] [address] ALP [Catalytic activity/Vol] 67 U/L Normal 40-150 [facility] Comment on above: Performed By: #### L AB99, LAB17 ####[employer]: JAZLYN BRUCE ([phone])[facility])[address] [place] [address] [place] ALT [Catalytic activity/Vol] 23 U/L Normal <40 [facility] Comment on above: Performed By: #### L AB99, LAB17 ####[employer]: JAZLYN BRUCE ([phone])[facility])[address] [place] [address] Anion gap [Moles/Vol] 4 mmol/L Normal 3-13 [facility] Comment on above: Performed By: #### L AB99, LAB17 ####[employer]: JAZLYN BRUCE ([phone])[facility])[address] [place] [address] AST [Catalytic activity/Vol] 26 U/L Normal <34 [facility] Comment on above: Performed By: #### L AB99, LAB17 ####[employer]worker: JAZLYN BRUCE ([phone])[facility])[address] [place] [address] Bilirubin [Mass/Vol] 0.5 mg/dL Normal <1.2 [facility] Comment on above: Performed By: #### L AB99, LAB17 ####[employer]: JAZLYN BRUCE ([phone])[facility])[address] [place] [address] Calcium [Mass/Vol] 8.5 mg/dL Low 8.8-10.0 [facility] Comment on above: Performed By: #### L AB99, LAB17 ####[employer]: JAZLYN BRUCE ([phone])[facility] ([facility])[address] [place] [address] [place] Chloride [Moles/Vol] 110 mmol/L High 98-107 [facility] Comment on above: Performed By: #### L AB99, LAB17 ####[employer]: JAZLYN BRUCE ([phone])[facility])[address] [place] [address] [place] CO2 [Moles/Vol] 23 mmol/L Normal 23-31 [facility] Comment on above: Performed By: #### L AB99, LAB17 ####[employer]: JAZLYN BRUCE ([phone])[facility] ([facility])[address] [place] [address] Creatinine [Mass/Vol] 0.78 mg/dL Normal 0.72-1.25 [facility] Comment on above: Performed By: #### L AB99, LAB17 ####[employer]: JAZLYN BRUCE ([phone])[facility])[address] [place] [address] GLOMERULAR FILTRATION RATE ML/MIN/1.73 SQ M.PREDICTED >90.0 Normal >60.0 [facility] Comment on above: Result Comment: Calc ulation based on the Chronic Kidney Disease Epidemiology Collaboration (CKD-EPI) equation refit without adjustment for race Performed By: #### L AB99, LAB17 ####[employer]: JAZLYN BRUCE ([phone])[facility])[address] [place] [address] Glucose [Mass/Vol] 100 mg/dL Normal 82-115 [facility] Comment on above: Performed By: #### L AB99, LAB17 ####[employer]: JAZLYN BRUCE ([phone])[facility])[address] [place] [address] Potassium [Moles/Vol] 3.8 mmol/L Normal 3.5-5.1 [facility] Comment on above: Result Comment: [facility] potassium values may be up to 0.5 mmol/L lower than serum values. Performed By: #### L AB99, LAB17 ####[employer]: JAZLYN BRUCE ([phone])[facility] [place] [address] [place] Protein [Mass/Vol] 6.5 g/dL Normal 6.4-8.3 [facility] Comment on above: Performed By: #### L AB99, LAB17 ####[employer]: JAZLYN BRUCE ([phone])[facility] [place] [address] [place] Sodium [Moles/Vol] 137 mmol/L Normal 136-145 [facility] Comment on above: Performed By: #### L AB99, LAB17 ####[employer]: JAZLYN BRUCE ([phone])[facility] ([facility])[address] [place] [address] Urea nitrogen [Mass/Vol] 18 mg/dL Normal 9-23 [facility] Comment on above: Performed By: #### L AB99, LAB17 ####[employer]: JAZLYN BRUCE ([phone])[facility] [place] [address] CT ABDOMEN PELVIS W CONTRAST on 03-16-2025 CT ABDOMEN PELVIS W CONTRAST Patient Name: FRANCISCO RAMOS : 1950 [id number] Exam Date/Time: 03/16/2025 07:45 Procedure: CT ABDOMEN [...] findings was made to JAMEEL BARRAZA via [employer] on 03/16/2025 8:35 AM EDT. Report Dictated on Electronically Signed By: Sebastian Díaz MD Electronically Signed Date/Time: 03/16/2025 8:35 AM EDT Chief complaints Abdominal Pain CT abdomen pelvis w contrast Abdominal pain, acute, nonlocalized Normal [facility] CT Abdomen and Pelvis W cont rast [...] findings was made to JAMEEL BARRAZA via [employer] on 03/16/2025 8:35 AM EDT. Report Dictated on Electronically Signed By: Sebastian Díaz MD Electronically Signed Date/Time: 03/16/2025 8:35 AM EDT [employer] SYSTEM Patient Name: FRANCISCO RAMOS : 1950 [facility]#: [id number] Exam Date/Time: 03/16/2025 07:45 Procedure: CT ABDOMEN [...] LYMPH NODES: Unremarkable. No enlarged lymph nodes. [facility] Kili Sebastian Díaz MD - 03/16/2025 Patient Name: FRANCISCO RAMOS : 1950 [facility]#: [id number] Exam Date/Time: 03/16/2025 07:45 Procedure: CT ABDOMEN [...] findings was made to JAMEEL BARRAZA via [employer] Secure Chat on 03/16/2025 8:35 AM EDT. Report Dictated on Electronically Signed By: Sebastian Díaz MD Electronically Signed Date/Time: 03/16/2025 8:35 AM EDT [facility] Radiology Study observation (narrative) [facility] CT Abdomen and Pelvis W cont rast IVOrdered By: Sebastian Díaz on 03-16-2025 [facility] Work Phone: Comprehensive metabolic 1998 panelon 03-16-2025 Albumin [Mass/Vol] 3.5 g/dL 3.4 - 4.8 g/dL [facility] ALP [Catalytic activity/Vol] 67 U/L 40 - 150 U/L [facility] ALT [Catalytic activity/Vol] 23 U/L [facility] - 40 U/L [facility] Anion gap [Moles/Vol] 4 mmol/L 3 - 13 mmol/L [facility] AST [Catalytic activity/Vol] 26 U/L [facility] - 34 U/L [facility] Bilirubin [Mass/Vol] 0.5 mg/dL [facility] - 1.2 mg/dL [facility] Calcium [Mass/Vol] 8.5 mg/dL Low 8.8 - 10. 0 mg/dL [facility] Chloride [Moles/Vol] 110 mmol/L High 98 - 10 7 mmol/L [facility] CO2 [Moles/Vol] 23 mmol/L 23 - 31 mmol/L [facility] Creatinine [Mass/Vol] 0.78 mg/dL 0.72 - 1.25 mg/dL [facility] GFR/1.73 sq M.predicted (S/P/Bld) [Vol rate/Area] - PINF [facility] Comment on above: Calculation based on the Chronic Kidney Disease Epidemiology Collaboration (CKD-EPI) equation refit without adjustment for race Glucose [Mass/Vol] 100 mg/dL 82 - 115 mg/dL [facility] Interpretation and review of laboratory results Abnormal [facility] Potassium [Moles/Vol] 3.8 mmol/L 3.5 - 5.1 mmol/L [facility] Comment on above: Plasma potassium sia ues may be up to 0.5 mmol/L lower than serum values. Protein [Mass/Vol] 6.5 g/dL 6.4 - 8.3 g/dL [facility] Sodium [Moles/Vol] 137 mmol/L 136 - 145 mmol/L [facility] Urea nitrogen [Mass/Vol] 18 mg/dL 9 - 23 mg/d L [facility] ED Nursing Noteon 03-16-2025 ED Nursing Note Received report from JOSÉ LUIS Mujica Normal [facility] ED Provider Noteon ED Provider Note EMERGENCY DEPARTMENT ENCOUNTER Pt Name: Francisco Raoms Birthdate 1950 Date of evaluation: 03/16/2025 ED Provider: Jameel Barraza DO CHIEF COMPLAINT Chief Complaint Patient presents with Abdominal Pain Transfer from [facility] for Colonoscopy due to a twisted [...] the emergency department by ED transfer from [facility] ED for abd pain. [place] revealed sigmoid volvulus. Pt unable to remember [...] findings was made to JAMEEL BARRAZA via [employer] Chat on 03/16/2025 8:35 AM EDT. [...] 67 ALBU (more content not included)... Normal [facility] Ketones Test strip Ql (U)Ord ered By: Brijesh Frederick on 03-16-2025 Ketones Ql (U) 5 mg/dl High Negative [facility] LACTIC ACID WITH REFLEXon Lactate [Moles/Vol] 0.6 mmol/L Normal 0.5-2.2 [facility] Comment on above: Performed By: #### L [id number] ####[employer] Farmworker: JAZLYN BRUCE ([phone])[address] LIPASEon 03-16-2025 Lipase [Catalytic activity/Vol] 11 U/L Normal <55 [facility] Comment on above: Performed By: #### L AB99, LAB17 ####[employer] Farmworker: JAZLYN BRUCE ([phone])[place] [address] [place] Laboratory - Chemistry and C hemistry - challengeon 03-16-2025 Lipase [Catalytic activity/Vol] 11 U/L NINF - 55 U/L [facility] Lactate [Moles/Vol] 0.6 mmol/L 0.5 - 2. 2 mmol/L [facility] Lactic Acidon 03-16-2025 Lactate [Moles/Vol] mmol/L Normal 0.0-2.0 [facility] Comment on above: Order Comment: Y Performed By: #### L 503.6005 #### [facility] [address] [place], [address] Lactic acid measurementOrder ed By: Brijesh Frederick on 03-16-2025 Lactate [Moles/Vol] mmol/L 0.0-2.0 [facility] Lipase [Catalytic activity/V ol]on 03-16-2025 Interpretation and review of laboratory results Normal [facility] Microscopic analysis of urin e for red blood cells (RBC)Ordered By: Brijesh Frederick on 03-16-2025 Microscopic analysis of urine for red blood cells (RBC) 0 SEEN /hpf 0-5 [facility] Mucus LM Ql (Urine sed)Order ed By: Brijesh Frederick on 03-16-2025 Mucus Ql (Urine sed) 0 SEEN /hpf [facility] Nitrite Test strip Ql (U)Ord ered By: Brijesh Frederick on 03-16-2025 Nitrite Ql (U) Negative Negative [facility] No Panel Informationon 03-16 [facility] Interpretation and review of laboratory results Normal [facility] Nursing Noteon 03-16-2025 Nursing Note [...] out as well. Nikki Aguilar RN supervisor bakery sanitation was notified of the incident. Normal [facility] Protein Test strip Ql (U)Ord ered By: Brijesh Frederick on 03-16-2025 Protein Ql (U) 30 mg/dl High Negative [facility] Squamous epithelial cells de tection in urine sediment by light microscopyOrdered By: Brijesh Frederick on 03-16-2025 Epithelial cells.squamous LM Ql (Urine sed) 0 SEEN /hpf 0-5 [facility] Urinalysis, Completeon 03-16 WBC 0-5 SEEN Normal 0-5 [facility] Comment on above: Order Comment: CLEAN CATCH Performed By: #### L 400.0001 ####[facility] [address] [place], [place], [id number] BILIRUBIN URINE Negative Normal Negative [facility] Comment on above: Order Comment: CLEAN CATCH Performed By: #### L 400.0001 ####[facility] [address] [place], [address] Clarity (U) Clear Normal Clear [facility] Comment on above: Order Comment: CLEAN CATCH Performed By: #### L 400.0001 ####[facility] [address] [place], [address] Color (U) Yellow Normal Yellow [facility] Comment on above: Order Comment: CLEAN CATCH Performed By: #### L 400.0001 ####[facility] [address] [place], [address] GLUCOSE, UR Normal Normal Normal [facility] Comment on above: Order Comment: CLEAN CATCH Performed By: #### L 400.0001 ####[facility] [address] [facility] [address] KETONE UR 5 mg/dl Abnormal Negative [facility] Comment on above: Order Comment: CLEAN CATCH Performed By: #### L 400.0001 ####[facility] [address] [place], [address] LEUK ESTERASE Negative Normal Negative [facility] Comment on above: Order Comment: CLEAN CATCH Performed By: #### L 400.0001 ####[facility] [address] [place], [address] Nitrite Ql (U) Negative Normal Negative [facility] Comment on above: Order Comment: CLEAN CATCH Performed By: #### L 400.0001 ####[facility] [address] [place], [address] OCCULT BLOOD-UR Negative Normal Negative [facility] Comment on above: Order Comment: CLEAN CATCH Performed By: #### L 400.0001 ####[facility] [address] [place], [address] pH UR 7.0 Normal 5.0 - 8.0 [facility] Comment on above: Order Comment: CLEAN CATCH Performed By: #### L 400.0001 ####[facility] [address] [facility] [address] PROT DIPSTX 30 mg/dl Abnormal Negative [facility] Comment on above: Order Comment: CLEAN CATCH Performed By: #### L 400.0001 ####[facility] [address] [place], [address] SP.GR. DIPSTX 1.010 Normal 1.002-1.030 [facility] Comment on above: Order Comment: CLEAN CATCH Performed By: #### L 400.0001 ####[facility] [address] [place], [address] UROBILI Normal Normal Normal [facility] Comment on above: Order Comment: CLEAN CATCH Performed By: #### L 400.0001 ####[facility] [address] [place], [address] BACTERIA 0 SEEN Normal None Seen [facility] Comment on above: Order Comment: CLEAN CATCH Performed By: #### L 400.0001 ####[facility] [address] [place], [address] EPI,SQUAMOUS 0 SEEN Normal 0-5 [facility] Comment on above: Order Comment: CLEAN CATCH Performed By: #### L 400.0001 ####[facility] [address] [place], [address] Mucus Ql (Urine sed) 0 SEEN Normal [facility] Comment on above: Order Comment: CLEAN CATCH Performed By: #### L 400.0001 ####[facility] [address] [place], [address] RBC 0 SEEN Normal 0-5 [facility] Comment on above: Order Comment: CLEAN CATCH Performed By: #### L 400.0001 ####[facility] [address] [place], [address] Urine clarityOrdered By: Maynor Frederick on 03-16-2025 Clarity (U) Clear Clear [facility] Urine color determinationOrd ered By: Brijesh Frederick on 03-16-2025 Color (U) Yellow Yellow [facility] Urine glucose detectionOrder ed By: Brijesh Frederick on 03-16-2025 Glucose Ql (U) Normal mg/dl Normal [facility] Urine leukocyte esterase det ection by dipstickOrdered By: Brijesh Frederick on 03-16-2025 Leukocyte esterase Test strip Ql (U) Negative Negative [facility] Urine pHOrdered By: Brijesh Blanco on 03-16-2025 pH (U) 7.0 [pH] 5.0 - 8.0 [facility] Urine sediment bacteria coun t by microscopy (number/high power field)Ordered By: Brijesh Frederick on 03-16-2025 Bacteria LM.HPF (Urine sed) [#/Area] 0 /[HPF] None Seen [facility] Urine specific gravity measu rementOrdered By: Brijesh Frederick on 03-16-2025 Specific gravity (U) [Rel density] 1.010 1.002-1.030 [facility] Urine urobilinogen measureme ntOrdered By: Brijesh Frederick on 03-16-2025 Urobilinogen Ql (U) Normal mg/dl Normal [facility] White blood cell countOrdere d By: Brijesh Frederick on 03-16-2025 White blood cell count 0-5 SEEN /hpf 0-5 [facility] XR ABDOMEN 2 VIEWS SUPINE AN D [...] Signed Date/Time: 03/16/2025 12:53 PM EDT Normal [facility] XR Abdomen Supine and Latera l-decubituson 03-16-2025 Radiology Study observation (narrative) [facility] alth Rectal tube placement. Improved sigmoid colon [...] spine. The visualized lung bases are unremarkable. [facility] Sebastian Díaz MD - 03/16/2025 Patient Name: [...] Electronically Signed Date/Time: 03/16/2025 12:53 PM EDT [facility] Abdomen/Pelvis W IV Cont ONL Yon 03-15-2025 Abdomen/Pelvis W IV Cont ONLY [facility] Services [address] [place] [address] Abdomen/Pelvis W IV Cont ONLY MR#: [id number] Acct: [id number] Name: FRANCISCO RAMOS Rep #: [id number] : 1950 M 74 From: Az Tejeda MD PCP: Dr. Ethan Avendano MD Status: [facility] ER Study: Abdomen/Pelvis W IV Cont ONLY Date of Exam: Exam# [id number] Ordering Dr: Brijesh Frederick DO PROCEDURE: ABDOMEN/PELVIS [...] if not recently performed. 3. Mild splenomegaly. [place] Alert: Sigmoid volvulus The critical information above was relayed directly by me by telephone to Brijesh Frederick on 03/15/2025 at 11:58 pm with readback verification. Reading Location: [id number] CC: Dr. Brijesh Frederick DO; Dr. 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 Normal [facility] Absolute lymphocyte countOrd ered By: Brijesh Frederick on 03-15-2025 Lymphocytes Auto (Unsp spec) [#/Vol] 0.69 10*3/uL Low 0.83-4.51 [facility] Absolute neutrophil countOrd ered By: Brijesh Frederick on 03-15-2025 Neutrophils (Bld) [#/Vol] 4.8 10*3/uL 2.0-7.7 [facility] Anion gap in Serum or Plasma Ordered By: Brijeshmathieu Frederick on 03-15-2025 Anion gap [Moles/Vol] 14 mmol/L 5-15 [facility] Automated lymphocyte count a s percentage of total leukocytesOrdered By: Brijesh Frederick on 03-15-2025 Lymphocytes/100 WBC Auto (Unsp spec) 11.6 % Low 19-41 [facility] BUN/creatinine ratioOrdered By: Brijesh Frederick on 03-15-2025 Urea nitrogen/Creatinine [Mass ratio] 23.2 mg/mg High 10-20 [facility] Basophil percentageOrdered B y: Brijesh Frederick on 03-15-2025 Basophils/100 WBC (Bld) 0.2 % 0-1 [facility] Bilirubin, totalOrdered By: Brijeshmathieu Frederick on 03-15-2025 Bilirubin [Mass/Vol] 0.51 mg/dL 0.00-1.30 [facility] CBC W/Diff, Automatedon 03-04 Absolute Lymph 0.69 X10 3/uL Low 0.83-4.51 [facility] Comment on above: Performed By: #### L 100.0100, L500.4050, L501.2450 ####[facility] [address] [place], [address] Absolute Neut 4.8 X10 3/uL Normal 2.0-7.7 [facility] Comment on above: Performed By: #### L 100.0100, L500.4050, L501.2450 ####[facility] [address] [place], [address] Basophils/100 WBC (Bld) 0.2 % Normal 0-1 [facility] Comment on above: Performed By: #### L 100.0100, L500.4050, L501.2450 ####[facility] [address] [place], [address] Eosinophils/100 WBC (Bld) 0.0 % Normal 0-5 [facility] Comment on above: Performed By: #### L 100.0100, L500.4050, L501.2450 ####[facility] [address] [place], [address] Erythrocyte distribution width (RBC) [Ratio] 12.8 % Normal 11.6-14.6 [facility] Comment on above: Performed By: #### L 100.0100, L500.4050, L501.2450 ####[facility] [address] [place], [address] Hematocrit (Bld) [Volume fraction] 42.3 % Normal 40-54 [facility] Comment on above: Performed By: #### L 100.0100, L500.4050, L501.2450 ####[facility] [address] [place], [address] Hemoglobin (Bld) [Mass/Vol] 14.6 g/dL Normal 13.0-16.5 [facility] Comment on above: Performed By: #### L 100.0100, L500.4050, L501.2450 ####[facility] [address] [place], [address] IG% 0.500 Normal 0.0-0.9 [facility] Comment on above: Result Comment: IG% - Immature Granulocytes (promyelocytes, myelocytes and metamyelocytes) > 1% indicates that a LEFT SHIFT is Present. Performed By: #### L 100.0100, L500.4050, L501.2450 ####[facility] [address] [place], [address] Lymphocytes/100 WBC (Bld) 11.6 % Low 19-41 [facility] Comment on above: Performed By: #### L 100.0100, L500.4050, L501.2450 ####[facility] [address] [place], [address] MCH (RBC) [Entitic mass] 30.8 pg Normal 27.0-32.0 [facility] Comment on above: Performed By: #### L 100.0100, L500.4050, L501.2450 ####[facility] [address] [place], [address] MCHC (RBC) [Mass/Vol] 34.5 g/dL Normal 32-36 [facility] Comment on above: Performed By: #### L 100.0100, L500.4050, L501.2450 ####[facility] [address] [place], [address] MCV (RBC) [Entitic vol] 89.2 fL Normal 80-94 [facility] Comment on above: Performed By: #### L 100.0100, L500.4050, L501.2450 ####[facility] [address] [place], [address] Monocytes/100 WBC (Bld) 7.4 % Normal 0-10 [facility] Comment on above: Performed By: #### L 100.0100, L500.4050, L501.2450 ####[facility] [address] [place], [address] Neutrophils/100 WBC (Bld) 80.3 % High 47-70 [facility] Comment on above: Performed By: #### L 100.0100, L500.4050, L501.2450 ####[facility] [address] [place], [address] Nucleated RBC (Bld) [#/Vol] 0 10*3/uL Normal 0-5 [facility] Comment on above: Performed By: #### L 100.0100, L500.4050, L501.2450 ####[facility] [address] [place], [address] Platelet mean volume (Bld) [Entitic vol] 11.1 fL Normal 6.2-12.0 [facility] Comment on above: Performed By: #### L 100.0100, L500.4050, L501.2450 ####[facility] [address] [place], [address] Platelets (Bld) [#/Vol] 148 10*3/uL Low 150-450 [facility] Comment on above: Performed By: #### L 100.0100, L500.4050, L501.2450 ####[facility] [address] [place], [address] RBC (Bld) [#/Vol] 4.74 10*6/uL Normal 4.6-6.2 [facility] Comment on above: Performed By: #### L 100.0100, L500.4050, L501.2450 ####[facility] [address] [place], [address] RDW SD 41.8 fl Normal 35.1-43.9 [facility] Comment on above: Performed By: #### L 100.0100, L500.4050, L501.2450 ####[facility] [address] [place], [address] WBC (Bld) [#/Vol] 5.9 10*3/uL Normal 4.4-11.0 [facility] Comment on above: Performed By: #### L 100.0100, L500.4050, L501.2450 ####[facility] [address] [place], [address] Carbon dioxide, total [Moles /volume] in Central venous bloodOrdered By: Brijesh Frederick on 03-15-2025 CO2 [Moles/Vol] 24.2 mmol/L 21.0-32.0 [facility] Chloride assayOrdered By: Jake Frederick on 03-15-2025 Chloride [Moles/Vol] 101 mmol/L 98-108 [facility] Comprehensive Metabolic Prof ilon 03-15-2025 Albumin [Mass/Vol] 4.4 g/dL Normal 3.4-4.8 [facility] Comment on above: Performed By: #### L 100.0100, L500.4050, L501.2450 ####[facility] [address] [place], [address] Albumin/Globulin [Mass ratio] 1.6 {ratio} Normal 0.9-2.4 [facility] Comment on above: Performed By: #### L 100.0100, L500.4050, L501.2450 ####[facility] [address] [place], [address] ALK PHOS 84 U/L Normal 40-129 [facility] Comment on above: Performed By: #### L 100.0100, L500.4050, L501.2450 ####[facility] [address] [place], [address] ALT [Catalytic activity/Vol] 17 U/L Normal <=46 [facility] Comment on above: Performed By: #### L 100.0100, L500.4050, L501.2450 ####[facility] [address] [place], [address] AST [Catalytic activity/Vol] 26 U/L Normal <=37 [facility] Comment on above: Performed By: #### L 100.0100, L500.4050, L501.2450 ####[facility] [address] [place], [address] Bilirubin [Mass/Vol] 0.51 mg/dL Normal 0.00-1.30 [facility] Comment on above: Performed By: #### L 100.0100, L500.4050, L501.2450 ####[facility] [address] [place], [address] BUN/CRE 23.2 RATIO High 10-20 [facility] Comment on above: Performed By: #### L 100.0100, L500.4050, L501.2450 ####[facility] [address] [place], [address] Calcium [Mass/Vol] 9.8 mg/dL Normal 7.6-11.0 [facility] Comment on above: Performed By: #### L 100.0100, L500.4050, L501.2450 ####[facility] [address] [place], [address] Chloride [Moles/Vol] 101 mmol/L Normal 98-108 [facility] Comment on above: Performed By: #### L 100.0100, L500.4050, L501.2450 ####[facility] [address] [place], [address] CO2 [Moles/Vol] 24.2 mmol/L Normal 21.0-32.0 [facility] Comment on above: Performed By: #### L 100.0100, L500.4050, L501.2450 ####[facility] [address] [place], [address] Creatinine [Mass/Vol] 0.93 mg/dL Normal 0.70-1.20 [facility] Comment on above: Performed By: #### L 100.0100, L500.4050, L501.2450 ####[facility] [address] [place], [address] ECRCL 66.84 ml/min Normal 50-250 [facility] Comment on above: Performed By: #### L 100.0100, L500.4050, L501.2450 ####[facility] [address] [place], [address] GAP 14 Normal 5-15 [facility] Comment on above: Performed By: #### L 100.0100, L500.4050, L501.2450 ####[facility] [address] [place], [address] GFR/1.73 sq M.predicted among non-blacks MDRD (S/P/Bld) [Vol rate/Area] 88 mL/min/{1.73_m2} Normal >60 [facility] Comment on above: Result Comment: mL/m in/1.73m2 CKD-EPI Creatinine Equation (2020) Performed By: #### L 100.0100, L500.4050, L501.2450 ####[facility] [address] [place], [address] Globulin (S) [Mass/Vol] 2.8 g/dL Normal 2.2-4.2 [facility] Comment on above: Performed By: #### L 100.0100, L500.4050, L501.2450 ####[facility] [address] [place], [address] Glucose [Mass/Vol] 170 mg/dL High 70-99 [facility] Comment on above: Performed By: #### L 100.0100, L500.4050, L501.2450 ####[facility] [address] [place], [address] Potassium [Moles/Vol] 3.7 mmol/L Normal 3.3-5.1 [facility] Comment on above: Performed By: #### L 100.0100, L500.4050, L501.2450 ####[facility] [address] [place], [address] Sodium [Moles/Vol] 139 mmol/L Normal 133-145 [facility] Comment on above: Performed By: #### L 100.0100, L500.4050, L501.2450 ####[facility] [address] [place], [address] T PROT 7.2 g/dL Normal 5.9-8.4 [facility] Comment on above: Performed By: #### L 100.0100, L500.4050, L501.2450 ####[facility] [address] [place], [address] Urea nitrogen [Mass/Vol] 22 mg/dL High 4-19 [facility] Comment on above: Performed By: #### L 100.0100, L500.4050, L501.2450 ####[facility] [address] [place], [address] Emergency Department Summary on 03-15-2025 Emergency Department Summary [facility] Medical Records Department [address] [place] [address] Emergency Department Summary 03/15/25 MR#: [id number] Acct: [id number] Name: FRANCISCO RAMOS Rep #: [id number] : 1950 74 From: Brijesh Frederick DO [...] intact Psych: Cooperative, appropriate mood and affect [facility] Medical History Tortuous colon Wears glasses Arthritis High cholesterol Easy bruising Back pain Non-smoker History of pain when walking History of echocardiogram History of stress test Cardiology follow-up encounter Parkinson disease Atherosclerosis of coronary artery of [place] heart without angina pectoris Hyperlipidemia Common variable immunodeficiency Benign prostate hyperplasia Basal cell carcinoma of left ear Home Medications ???Medication ???Instructions ???Recorded ???Last Taken ???Type multivitamin with folic acid 400 1 tab PO DAILY 06/10/1324 H istory mcg tablet folic acid 400 mcg tablet 1 tab PO DAILY 12/24/13 08/19/24 H istory immune glob,gamma(IgG) 10 20 g .Route .t2eiuct 03/04/19/01/25 History sbjs-swl-mnrj-IgA 0 to 50 mcg/mL IV solution nitroglycerin [...] Room Air (more content not included)... Normal [facility] Eosinophil percentageOrdered By: Brijesh Frederick on 03-15-2025 Eosinophils/100 WBC (Bld) 0.0 % 0-5 [facility] Erythrocyte distribution wid th ratioOrdered By: Brijesh Frederick on 03-15-2025 Erythrocyte distribution width (RBC) [Ratio] 12.8 % 11.6-14.6 [facility] Erythrocyte distribution wid th standard deviationOrdered By: Brijesh Manjarrez on 03-15-2025 Erythrocyte distribution width (RBC) [Ratio] 41.8 fl 35.1-43.9 [facility] Glomerular filtration rate ( GFR) estimation/1.73 sq m using serum, plasma, or whole bOrdered By: Brijesh Frederick on 03-15-2025 GFR/1.73 sq M.predicted among non-blacks MDRD (S/P/Bld) [Vol rate/Area] 88 mL/min/{1.73_m2} >60 [facility] Comment on above: mL/min/1.73m2 CKD-EP I Creatinine Equation (2020) Hematocrit Auto (Bld) [Volum e fraction]Ordered By: Brijesh Frederick on 03-15-2025 Hematocrit (Bld) [Volume fraction] 42.3 % 40-54 [facility] Hemoglobin measurementOrdere d By: Brijesh Frederick on 03-15-2025 Hemoglobin (Bld) [Mass/Vol] 14.6 g/dL 13.0-16.5 [facility] Immature granulocytes/100 WB C Auto (Bld)Ordered By: Brijesh Frederick on 03-15-2025 Immature granulocytes/100 WBC (Bld) 0.500 % 0.0-0.9 [facility] Comment on above: IG% - Immature Granu locytes (promyelocytes, myelocytes and metamyelocytes) > 1% indicates that a LEFT SHIFT is Present. Laboratory - Chemistry and C hemistry - challengeOrdered By: Brijesh Frederick on 03-15-2025 AST [Catalytic activity/Vol] 26 U/L <38 [facility] Lipaseon 03-15-2025 Lipase [Catalytic activity/Vol] 20 U/L Normal 13-75 [facility] Comment on above: Result Comment: Tejas lassiter note: LIPASE revised reference range effective 22. New Lipase methodology. Expected to produce lower values than the previous assay method. NEW Reference Range: 13 - 75 U/L Performed By: #### L 100.0100, L500.4050, L501.2450 ####[facility] [address] [place], [address] Lipase measurementOrdered By : Brijesh Frederick on 03-15-2025 Lipase [Catalytic activity/Vol] 20 U/L 13-75 [facility] Comment on above: Please note:LIPASE r evised reference range effective 22. New Lipase methodology. Expected to produce lower values than the previous assay method. NEW Reference Range: 13 - 75 U/L MCV (mean corpuscular volume ) determinationOrdered By: Brijesh Frederick on 03-15-2025 MCV (RBC) [Entitic vol] 89.2 fL 80-94 [facility] Mean corpuscular hemoglobin (MCH) determinationOrdered By: Brijesh Frederick on 03-15-2025 MCH (RBC) [Entitic mass] 30.8 pg 27.0-32.0 [facility] Mean corpuscular hemoglobin concentration (MCHC) determinationOrdered By: Brijesh Frederick on 03-15-2025 MCHC (RBC) [Mass/Vol] 34.5 g/dL 32-36 [facility] Mean platelet volume determi nationOrdered By: Brijesh Frederick on 03-15-2025 Platelet mean volume (Bld) [Entitic vol] 11.1 fL 6.2-12.0 [facility] Monocyte percentageOrdered B y: Brijesh Fredreick on 03-15-2025 Monocytes/100 WBC (Bld) 7.4 % 0-10 [facility] Neutrophil percentageOrdered By: Brijesh Frederick on 03-15-2025 Neutrophils/100 WBC (Bld) 80.3 % High 47-70 [facility] Nucleated red blood cell per centageOrdered By: Brijesh Frederick on 03-15-2025 Nucleated RBC/100 WBC (Bld) [Ratio] 0 % 0-5 [facility] Platelet countOrdered By: Jake Frederick on 03-15-2025 Platelets (Bld) [#/Vol] 148 10*3/uL Low 150-450 [facility] Potassium measurement (mass/ volume)Ordered By: Brijesh Frederick on 03-15-2025 Potassium (Unsp spec) [Mass/Vol] 3.7 mmol/L 3.3-5.1 [facility] RBC Auto (Bld) [#/Vol]Ordere d By: Brijesh Frederick on 03-15-2025 RBC (Bld) [#/Vol] 4.74 10*6/uL 4.6-6.2 [facility] Serum creatinine measurement (mass/volume)Ordered By: Brijesh Frederick on 03-15-2025 Creatinine [Mass/Vol] 0.93 mg/dL 0.70-1.20 [facility] Serum globulin measurementOr dered By: Brijesh Frederick on 03-15-2025 Globulin (S) [Mass/Vol] 2.8 g/dL 2.2-4.2 [facility] Serum glucose measurement (m ass/volume)Ordered By: Brijesh Frederick on 03-15-2025 Glucose [Mass/Vol] 170 mg/dL High 70-99 [facility] Serum or plasma alanine garcai otransferase (ALT) measurementOrdered By: Brijesh Frederick on 03-15-2025 ALT [Catalytic activity/Vol] 17 U/L <47 [facility] Serum or plasma albumin john urement (mass/volume)Ordered By: Brijesh Manjarrez on 03-15-2025 Albumin [Mass/Vol] 4.4 g/dL 3.4-4.8 [facility] Serum or plasma albumin/glob ulin mass ratioOrdered By: Brijesh Frederick on 03-15-2025 Albumin/Globulin [Mass ratio] 1.6 {ratio} 0.9-2.4 [facility] Serum or plasma alkaline dylon sphatase measurementOrdered By: Brijesh deepaLoki on 03-15-2025 ALP [Catalytic activity/Vol] 84 U/L 40-129 [facility] Serum or plasma calcium john urement (mass/volume)Ordered By: Brijeshmathieu Alvarado Loki on 03-15-2025 Calcium [Mass/Vol] 9.8 mg/dL 7.6-11.0 [facility] Serum or plasma urea nitroge n measurement (mass/volume)Ordered By: Brijesh [facility] on 03-15-2025 Urea nitrogen [Mass/Vol] 22 mg/dL High 4-19 [facility] Sodium levelOrdered By: Gordon AlvaradoMultiCare [facility] Hospitalt on 03-15-2025 Sodium [Moles/Vol] 139 mmol/L 133-145 [facility] Total proteinOrdered By: Maynor VelezLoki on 03-15-2025 Protein [Mass/Vol] 7.2 g/dL 5.9-8.4 [facility] White blood cell (WBC) count Or[facility]: [facility] 03-15-2025 WBC (Bld) [#/Vol] 5.9 10*3/uL 4.4-11.0 [facility] PT D/C Summary (1)on 025 PT D/C Summary (1) [facility] Physical Therapy [address] [place] [address] / REHABILITATION SERVICES DISCHARGE SUMMARY MR#: [id number] Acct: [id number] Name: FRANCISCO RAMOS Rep #: [id number] : 1950 74 From: [place] Referring DrNoreen: KIM Mendenhall Status: REG RCR Insurance: MEDICARE PART A B [facility] Discharge Summary D/C summary: It has been [...] 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 He was on the [...] please feel free to call me at [phone]. Thank you for the referral of this patient. Sincerely, Mojgan Gonzalez, MPT Balance/Gait/Functio nal tests Balance/Special Test Scores Functional Gait Assessment Score: 25 % Disability: 16.6700 CATSIB Score (Max score 120 seconds): 120 Lower Extremity Functional Score: 44 Improvement % Improvement: 15 01/06/25 1506 CC: Dr. Ethan Avendano MD; KIM Mendenhall Signed Normal [facility] T4 Free Directon 12-25-2024 T4 FREE DIRECT 0.90 ng/dL Normal 0.76-1.46 [facility] Comment on above: Performed By: #### L 506.0400 #### [facility] Laboratory [address] [place], [address] T4 freeOrdered By: Ethan cheng on 12-25-2024 Free T4 [Mass/Vol] 0.90 ng/dL 0.76-1.46 [facility] Carotid Duplex Ultrasoundon 12-17-2024 Carotid Duplex Ultrasound [facility] [address] [place] [address] Carotid Duplex Ultrasound 12/17/24 1358 MR#: [id number] Acct: [id number] Name: FRANCISCO RAMOS Rep #: [id number] : 1950 74 From: Marcio Newell MD [...] the left vertebral artery. Procedure Carotid Duplex 20080. This is a Carotid Duplex examination using B-mode, color flow and specral Doppler. Exam performed in department. VL/Carotid Duplex Ultrasound Interpretation Summary Moderate (50-69%) stenosis right extracranial internal carotid. Mild (<50%) stenosis left extracranial internal carotid. Flow within the vertebral arteries is antegrade bilaterally. Ordering Physician: Demian Ramsay Referring Physician: Ethan Avendano Performed By: Lisa oKhler, EMANUEL, RVT 12/17/241838 Date Marcio Newell MD CC: Dr. Demian Ramsay MD; Dr. 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 [address] Carotid Duplex Ultrasound 12/17/24 1358 MR#: [id number] Acct: [id number] Name: GROSS,FRANCISCO ALBARRAN Rep #:[id number] : 1950 74 From: Marcio Newell MD Attending Dr: Dr. Demian Ramsay MD S tatus: REG CLI Ordering Dr: Demian Ramsay MD Date: Location: [facility] Sex: M C Admitted: Reason For Study Reason For Study: BRUIT Rt. Velocities/BP Lt. Velocities/BP Prox CCA 107.2/13.9 cm/sec. Prox CCA 142.3/23.6 cm/sec. Mid CCA 74.4/13.0 cm/sec. Mid WZQ588.8/19.9 cm/sec. Dist CCA 65.8/10.6 cm/sec. Dist CCA 91.1/19.9 cm/sec. Prox ICA 177.7/31.6 cm/sec. Prox ICA 129.5/10.8 cm/sec. Mid ICA 134.4/19.4 cm/sec. Mid PTX754.8/19.9 cm/sec. Dist ICA 125.3/28.5 cm/sec. Dist ICA [...] the left vertebral artery. Procedure Carotid Duplex 57934. This is a Carotid Duplex examination using [...] Date Dictated: 12/17/24 1358 Date Transcribed: 12/17/241838 [employer] Builder Apprentice: Signed [facility] Other Inital Evaluation (1) - PTon 12-04-2024 Inital Evaluation (1) - PT [facility] Physical Therapy [facility] [address] [place] [address] [address] [place] [address] / REHABILITATION SERVICES INITIAL EVALUATION MR#: [id number] Acct: [id number] Name: FRANCISCO RAMOS Rep #: [id number] : 1950 74 From: [place] Referring Dr.: Sandra Joaquin Status: REG RCR Insurance: MEDICARE PART A B [facility] Patient's Visit Information Visit Information Visit Information: [...] years ago with PD. He take [employer] classes here (2 yoga classes, Mellisa) for [...] of care (more content not included)... Normal [facility] Cardiology Visit Reporton Cardiology Visit Report [facility] [address] [place] [address] OFFICE VISIT Date of Service: 11/28/24 MR#: [id number] Acct: [id number] Name: FRANCISCO RAMOS #: [id number] : 1950 Provider: Dr. Demian Ramsay MD Age/Sex: 74/M Location: [facility] Status: Signed HPI HPI History of [...] for his age. [facility] 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 Accompanied by: Significant Other Is patient in pain?: No Allergies No Known Allergies Allergy (Verified 11/28/24 10:54) Medications ???Medication ???Instructions ???Recorded ???Confirmed ???Type multivitamin with folic acid 400 1 tab PO DAILY 06/10/13 11/28/24 H istory mcg tablet folic acid 400 mcg tablet 1 tab PO DAILY 12/24/13 11/28/24 H istory immune glob,gamma(IgG) 10 20 g .Route .q1wkcyn 03/04/1911/03 History jbpg-wpf-rsiy-IgA 0 to 50 mcg/mL IV solution nitroglycerin [...] Parkinson disease Atherosclerosis of coronary artery of [place] heart without angina pectoris Hyperlipidemia Common variable [...] lying d (more content not included)... Normal [facility] T4 Free Directon 10-31-2024 T4 FREE DIRECT 0.90 ng/dL Normal 0.76-1.46 [facility] Comment on above: Order Comment: Order Date: 10/29/24 Order Info: 0786-1 - CMP Order Info: 3016-3 - TSH Order Info: 228-8 - FOLS Performed By: #### L 506.0400, L503.0106 #### [facility] [address] [place], [place], [address] Comprehensive Metabolic Prof ilon 10-30-2024 Albumin [Mass/Vol] 4.3 g/dL Normal 3.4-4.8 [facility] Comment on above: Order Comment: Order Date: 10/29/24Order Info: 0786-1 - CMPOrder Info: 3016-3 - TSHOrder Info: 228-8 - FOLS Performed By: #### L 506.0250, L501.9520, L501.9985, L100.0100, L500.4050 ####[facility] [address] [place], [place], [address] Albumin/Globulin [Mass ratio] 1.8 {ratio} Normal 0.9-2.4 [facility] Comment on above: Order Comment: Order Date: 10/29/24Order Info: 0786-1 - CMPOrder Info: 3016-3 - TSHOrder Info: 2284-8 - FOLS Performed By: #### L 506.0250, L501.9520, L501.9985, L100.0100, L500.4050 ####[facility] [address] [place], [address] ALK PHOS 63 U/L Normal 40-129 [facility] Comment on above: Order Comment: Order Date: 10/29/24Order Info: 07-1 - CMPOrder Info: 3015-11 - TSHOrder Info: 2284-04 - FOLS Performed By: #### L 506.0250, L501.9520, L501.9985, L100.0100, L500.4050 ####[facility] [address] [place], [address] ALT [Catalytic activity/Vol] 31 U/L Normal <=46 [facility] Comment on above: Order Comment: Order Date: 10/29/24Order Info: 785-09 - CMPOrder Info: 3015-11 - TSHOrder Info: 2284-04 - FOLS Performed By: #### L 506.0250, L501.9520, L501.9985, L100.0100, L500.4050 ####[facility] [address] [place], [address] Anion gap [Moles/Vol] 11 mmol/L Normal 5-15 [facility] Comment on above: Order Comment: Order Date: 10/29/24Order Info: 785-09 - CMPOrder Info: 3015-11 - TSHOrder Info: 2284-04 - FOLS Performed By: #### L 506.0250, L501.9520, L501.9985, L100.0100, L500.4050 ####[facility] [address] [place], [address] AST [Catalytic activity/Vol] 35 U/L Normal <=37 [facility] Comment on above: Order Comment: Order Date: 10/29/24Order Info: 07-1 - CMPOrder Info: 3015-11 - TSHOrder Info: 2284-04 - FOLS Performed By: #### L 506.0250, L501.9520, L501.9985, L100.0100, L500.4050 ####[facility] [address] [place], [address] Bilirubin [Mass/Vol] 0.52 mg/dL Normal 0.00-1.30 [facility] Comment on above: Order Comment: Order Date: 10/29/24Order Info: 0786-1 - CMPOrder Info: 3 - TSHOrder Info: 2284-8 - FOLS Performed By: #### L 506.0250, L501.9520, L501.9985, L100.0100, L500.4050 ####[facility] [address] [place], [address] BUN/CRE 16.3 RATIO Normal 10-20 [facility] Comment on above: Order Comment: Order Date: 10/29/24Order Info: 0786-1 - CMPOrder Info: 3 - TSHOrder Info: 8 - FOLS Performed By: #### L 506.0250, L501.9520, L501.9985, L100.0100, L500.4050 ####[facility] [address] [place], [address] Calcium [Mass/Vol] 9.6 mg/dL Normal 7.6-11.0 [facility] Comment on above: Order Comment: Order Date: 10/29/24Order Info: 0786-1 - CMPOrder Info: 3 - TSHOrder Info: 228-8 - FOLS Performed By: #### L 506.0250, L501.9520, L501.9985, L100.0100, L500.4050 ####[facility] [address] [place], [address] Chloride [Moles/Vol] 102 mmol/L Normal 96-108 [facility] Comment on above: Order Comment: Order Date: 10/29/24Order Info: 0786-1 - CMPOrder Info: 3 - TSHOrder Info: 2284-8 - FOLS Performed By: #### L 506.0250, L501.9520, L501.9985, L100.0100, L500.4050 ####[facility] [address] [place], [address] CO2 [Moles/Vol] 25.1 mmol/L Normal 22.0-29.0 [facility] Comment on above: Order Comment: Order Date: 10/29/24Order Info: 86-1 - CMPOrder Info: 3015-11 - TSHOrder Info: 2284-04 - FOLS Performed By: #### L 506.0250, L501.9520, L501.9985, L100.0100, L500.4050 ####[facility] [address] [place], [address] Creatinine [Mass/Vol] 1.0 mg/dL Normal 0.8-1.3 [facility] Comment on above: Order Comment: Order Date: 10/29/24Order Info: 785- - CMPOrder Info: 3015-11 - TSHOrder Info: 2284-04 - FOLS Performed By: #### L 506.0250, L501.9520, L501.9985, L100.0100, L500.4050 ####[facility] [address] [place], [address] GFR/1.73 sq M.predicted among non-blacks MDRD (S/P/Bld) [Vol rate/Area] 86 mL/min/{1.73_m2} Normal >60 [facility] Comment on above: Order Comment: Order Date: 10/29/24Order Info: 785-1 - CMPOrder Info: 3015-11 - TSHOrder Info: 2284-04 - FOLS Result Comment: mL/m in/1.73m2 CKD-EPI Creatinine Equation (2020) Performed By: #### L 506.0250, L501.9520, L501.9985, L100.0100, L500.4050 ####[facility] [address] [place], [address] Globulin (S) [Mass/Vol] 2.4 g/dL Normal 2.2-4.2 [facility] Comment on above: Order Comment: Order Date: 10/29/24Order Info: 0786-1 - CMPOrder Info: 3015-11 - TSHOrder Info: 8 - FOLS Performed By: #### L 506.0250, L501.9520, L501.9985, L100.0100, L500.4050 ####[facility] [address] [place], [address] Glucose [Mass/Vol] 80 mg/dL Normal 70-99 [facility] Comment on above: Order Comment: Order Date: 10/29/24Order Info: 785-1 - CMPOrder Info: 3015-11 - TSHOrder Info: 8 - FOLS Performed By: #### L 506.0250, L501.9520, L501.9985, L100.0100, L500.4050 ####[facility] [address] [place], [address] Potassium [Moles/Vol] 4.5 mmol/L Normal 3.3-5.1 [facility] Comment on above: Order Comment: Order Date: 10/29/24Order Info: 07-1 - CMPOrder Info: 3015-11 - TSHOrder Info: 8 - FOLS Performed By: #### L 506.0250, L501.9520, L501.9985, L100.0100, L500.4050 ####[facility] [address] [place], [address] Sodium [Moles/Vol] 138 mmol/L Normal 133-145 [facility] Comment on above: Order Comment: Order Date: 10/29/24Order Info: 07-1 - CMPOrder Info: 3015-11 - TSHOrder Info: 8 - FOLS Performed By: #### L 506.0250, L501.9520, L501.9985, L100.0100, L500.4050 ####[facility] [address] [place], [address] T PROT 6.7 g/dL Normal 5.9-8.4 [facility] Comment on above: Order Comment: Order Date: 10/29/24Order Info: 0786-1 - CMPOrder Info: 6-3 - TSHOrder Info: 2284-8 - FOLS Performed By: #### L 506.0250, L501.9520, L501.9985, L100.0100, L500.4050 ####[facility] [address] [place], [address] Urea nitrogen [Mass/Vol] 15 mg/dL Normal 4-19 [facility] Comment on above: Order Comment: Order Date: 10/29/24Order Info: 0786-1 - CMPOrder Info: 3 - TSHOrder Info: 2284-8 - FOLS Performed By: #### L 506.0250, L501.9520, L501.9985, L100.0100, L500.4050 ####[facility] [address] [place], [address] Folates, (Folic Acid)on 10-06 FOLATES 32.00 ng/mL Normal 4.60-34.80 [facility] Comment on above: Order Comment: Order Date: 10/29/24Order Info: 0786-1 - CMPOrder Info: 6-3 - TSHOrder Info: 2284-8 - FOLSN Result Comment: Hemo lysis, Results will be affected, Requires Recollection. Performed By: #### L 506.0250, L501.9520, L501.9985, L100.0100, L500.4050 ####[facility] [address] [place], [address] Hemoglobin A1con 10-30-2024 HbA1c (Bld) [Mass fraction] 5.8 % Normal <=5.6 [facility] Comment on above: Order Comment: Order Date: 10/29/24Order Info: 4548-4 - A1C Performed By: #### L 506.0250, L501.9520, L501.9985, L100.0100, L500.4050 ####[facility] [address] [place], [address] L503.0106on 10-30-2024 Cobalamin (Vitamin B12) [Mass/Vol] 555 pg/mL Normal 180-914 [facility] Comment on above: Order Comment: Order Date: 10/29/24 Order Info: 0786-1 - CMP Order Info: 3016-3 - TSH Order Info: 2284-8 - FOLS Performed By: #### L 506.0400, L503.0106 #### [facility] [address] [place], [address] Thyroid Stim Hormone (TSH)on 10-30-2024 TSH 6.000 uIU/mL High 0.300-4.200 [facility] Comment on above: Order Comment: Order Date: 10/29/24Order Info: 0786-1 - CMPOrder Info: 3016-3 - TSHOrder Info: 228-8 - FOLS Performed By: #### L 506.0250, L501.9520, L501.9985, L100.0100, L500.4050 ####[facility] [address] [place], [address] Absolute lymphocyte countOrd ered By: Ethan Avendano on 10-29-2024 Lymphocytes Auto (Unsp spec) [#/Vol] 0.90 10*3/uL 0.83-4.51 [facility] Absolute neutrophil countOrd ered By: Ethan Avendano on 10-29-2024 Neutrophils (Bld) [#/Vol] 3.2 10*3/uL 2.0-7.7 [facility] Automated lymphocyte count a s percentage of total leukocytesOrdered By: Ethan Avendano on 10-29-2024 Lymphocytes/100 WBC Auto (Unsp spec) 19.3 % 19- [facility] BUN/creatinine ratioOrdered By: Ethan Avendano on 10-29-2024 Urea nitrogen/Creatinine [Mass ratio] 16.3 mg/mg 10- [facility] Basophil percentageOrdered B y: Ethan Avendano on 10-29-2024 Basophils/100 WBC (Bld) 0.2 % 0-1 [facility] Bilirubin, totalOrdered By: Ethan Avendano on 10-29-2024 Bilirubin [Mass/Vol] 0.52 mg/dL 0.00-1.30 [facility] CBC W/Diff, Automatedon 10-06 Absolute Lymph 0.90 X10 3/uL Normal 0.83-4.51 [facility] Comment on above: Order Comment: Order Date: 10/29/24Order Info: 0184-1 - CBCD Performed By: #### L 506.0250, L501.9520, L501.9985, L100.0100, L500.4050 ####[facility] [address] [place], [address] Absolute Neut 3.2 X10 3/uL Normal 2.0-7.7 [facility] Comment on above: Order Comment: Order Date: 10/29/24Order Info: 0184-1 - CBCD Performed By: #### L 506.0250, L501.9520, L501.9985, L100.0100, L500.4050 ####[facility] [address] [place], [address] Basophils/100 WBC (Bld) 0.2 % Normal 0-1 [facility] Comment on above: Order Comment: Order Date: 10/29/24Order Info: 0184-1 - CBCD Performed By: #### L 506.0250, L501.9520, L501.9985, L100.0100, L500.4050 ####[facility] [address] [place], [address] Eosinophils/100 WBC (Bld) 0.0 % Normal 0-5 [facility] Comment on above: Order Comment: Order Date: 10/29/24Order Info: 0184-1 - CBCD Performed By: #### L 506.0250, L501.9520, L501.9985, L100.0100, L500.4050 ####[facility] [address] [place], [address] Erythrocyte distribution width (RBC) [Ratio] 12.9 % Normal 11.6-14.6 [facility] Comment on above: Order Comment: Order Date: 10/29/24Order Info: 0184-1 - CBCD Performed By: #### L 506.0250, L501.9520, L501.9985, L100.0100, L500.4050 ####[facility] [address] [place], [address] Hematocrit (Bld) [Volume fraction] 41.1 % Normal 40-54 [facility] Comment on above: Order Comment: Order Date: 10/29/24Order Info: 0184-1 - CBCD Performed By: #### L 506.0250, L501.9520, L501.9985, L100.0100, L500.4050 ####[facility] [address] [place], [address] Hemoglobin (Bld) [Mass/Vol] 13.7 g/dL Normal 13.0-16.5 [facility] Comment on above: Order Comment: Order Date: 10/29/24Order Info: 0184-1 - CBCD Performed By: #### L 506.0250, L501.9520, L501.9985, L100.0100, L500.4050 ####[facility] [address] [place], [address] IG% 0.400 Normal 0.0-0.9 [facility] Comment on above: Order Comment: Order Date: 10/29/24Order Info: 0184-1 - CBCD Result Comment: IG% - Immature Granulocytes (promyelocytes, myelocytes and metamyelocytes) > 1% indicates that a LEFT SHIFT is Present. Performed By: #### L 506.0250, L501.9520, L501.9985, L100.0100, L500.4050 ####[facility] [address] [place], [address] Lymphocytes/100 WBC (Bld) 19.3 % Normal 19-41 [facility] Comment on above: Order Comment: Order Date: 10/29/24Order Info: 0184-1 - CBCD Performed By: #### L 506.0250, L501.9520, L501.9985, L100.0100, L500.4050 ####[facility] [address] [place], [address] MCH (RBC) [Entitic mass] 30.5 pg Normal 27.0-32.0 [facility] Comment on above: Order Comment: Order Date: 10/29/24Order Info: 0184-1 - CBCD Performed By: #### L 506.0250, L501.9520, L501.9985, L100.0100, L500.4050 ####[facility] [address] [place], [address] MCHC (RBC) [Mass/Vol] 33.3 g/dL Normal 32-36 [facility] Comment on above: Order Comment: Order Date: 10/29/24Order Info: 0184-1 - CBCD Performed By: #### L 506.0250, L501.9520, L501.9985, L100.0100, L500.4050 ####[facility] [address] [place], [address] MCV (RBC) [Entitic vol] 91.5 fL Normal 80-94 [facility] Comment on above: Order Comment: Order Date: 10/29/24Order Info: 0184-1 - CBCD Performed By: #### L 506.0250, L501.9520, L501.9985, L100.0100, L500.4050 ####[facility] [address] [place], [address] Monocytes/100 WBC (Bld) 10.7 % High 0-10 [facility] Comment on above: Order Comment: Order Date: 10/29/24Order Info: 0184-1 - CBCD Performed By: #### L 506.0250, L501.9520, L501.9985, L100.0100, L500.4050 ####[facility] [address] [place], [address] Neutrophils/100 WBC (Bld) 69.4 % Normal 47-70 [facility] Comment on above: Order Comment: Order Date: 10/29/24Order Info: 018-1 - CBCD Performed By: #### L 506.0250, L501.9520, L501.9985, L100.0100, L500.4050 ####[facility] [address] [place], [address] Nucleated RBC (Bld) [#/Vol] 0 10*3/uL Normal 0-5 [facility] Comment on above: Order Comment: Order Date: 10/29/24Order Info: 0184-1 - CBCD Performed By: #### L 506.0250, L501.9520, L501.9985, L100.0100, L500.4050 ####[facility] [address] [place], [address] Platelet mean volume (Bld) [Entitic vol] 11.4 fL Normal 6.2-12.0 [facility] Comment on above: Order Comment: Order Date: 10/29/24Order Info: 0184-1 - CBCD Performed By: #### L 506.0250, L501.9520, L501.9985, L100.0100, L500.4050 ####[facility] [address] [place], [address] Platelets (Bld) [#/Vol] 126 10*3/uL Low 150-450 [facility] Comment on above: Order Comment: Order Date: 10/29/24Order Info: 0184-1 - CBCD Performed By: #### L 506.0250, L501.9520, L501.9985, L100.0100, L500.4050 ####[facility] [address] [place], [address] RBC (Bld) [#/Vol] 4.49 10*6/uL Low 4.6-6.2 [facility] Comment on above: Order Comment: Order Date: 10/29/24Order Info: 0184-1 - CBCD Performed By: #### L 506.0250, L501.9520, L501.9985, L100.0100, L500.4050 ####[facility] [address] [place], [address] RDW SD 42.5 fl Normal 35.1-43.9 [facility] Comment on above: Order Comment: Order Date: 10/29/24Order Info: 0184-1 - CBCD Performed By: #### L 506.0250, L501.9520, L501.9985, L100.0100, L500.4050 ####[facility] [address] [place], [address] WBC (Bld) [#/Vol] 4.7 10*3/uL Normal 4.4-11.0 [facility] Comment on above: Order Comment: Order Date: 10/29/24Order Info: 0184-1 - CBCD Performed By: #### L 506.0250, L501.9520, L501.9985, L100.0100, L500.4050 ####[facility] [address] [place], [address] Carbon dioxide measurementOr dered By: Ethan Avendano on 10-29-2024 CO2 [Moles/Vol] 25.1 mmol/L 22.0-29.0 [facility] Chloride measurementOrdered By: Ethan Avendano on 10-29-2024 Chloride [Moles/Vol] 102 mmol/L 96-108 [facility] Creatinine [Moles/Vol]Ordere d By: Ethan Avendano on 10-29-2024 Creatinine [Mass/Vol] 1.0 mg/dL 0.8-1.3 [facility] Eosinophil percentageOrdered By: Ethan Avendano on 10-29-2024 Eosinophils/100 WBC (Bld) 0.0 % 0-5 [facility] Erythrocyte distribution wid th ratioOrdered By: Ethan Avendano on 10-29-2024 Erythrocyte distribution width (RBC) [Ratio] 12.9 % 11.6-14.6 [facility] Erythrocyte distribution wid th standard deviationOrdered By: Ethan Avendano on 10-29-2024 Erythrocyte distribution width (RBC) [Entitic vol] 42.5 fL 35.1-43.9 [facility] Erythrocyte distribution width (RBC) [Ratio] 42.5 fl 35.1-43.9 [facility] Folate measurementOrdered By : Ethan Avendano on 10-29-2024 Folate 32.00 ng/mL 4.60-34.80 [facility] Comment on above: Hemolysis, Results w ill be affected, Requires Recollection. GFR/1.73 sq M.predicted maxine g non-blacks MDRD (S/P/Bld) [Vol rate/Area]Ordered By: Ethan Avendano on 10-29-2024 Estimated GFR (MDRD) Non-Af Amer 86 >60 [facility] Comment on above: mL/min/1.73m2 CKD-EP I Creatinine Equation (2020) Glomerular filtration rate ( GFR) estimation/1.73 sq m using serum, plasma, or whole bOrdered By: Ethan Avendano on 10-29-2024 GFR/1.73 sq M.predicted among non-blacks MDRD (S/P/Bld) [Vol rate/Area] 86 mL/min/{1.73_m2} >60 [facility] Comment on above: mL/min/1.73m2 CKD-EP I Creatinine Equation (2020) Hematocrit Auto (Bld) [Volum e fraction]Ordered By: Ethan Avendano on 10-29-2024 Hematocrit (Bld) [Volume fraction] 41.1 % 40-54 [facility] Hemoglobin A1c percentageOrd ered By: Ethan Avendano on 10-29-2024 HbA1c (Bld) [Mass fraction] 5.8 % >5.7 [facility] Hemoglobin measurementOrdere d By: Ethan Avendano on 10-29-2024 Hemoglobin (Bld) [Mass/Vol] 13.7 g/dL 13.0-16.5 [facility] Immature granulocytes/100 WB C Auto (Bld)Ordered By: Ethan Avendano on 10-29-2024 Immature granulocytes/100 WBC (Bld) 0.400 % 0.0-0.9 [facility] Comment on above: IG% - Immature Granu locytes (promyelocytes, myelocytes and metamyelocytes) > 1% indicates that a LEFT SHIFT is Present. Laboratory - Chemistry and C hemistry - challengeOrdered By: Ethan Avendano on 10-29-2024 AST [Catalytic activity/Vol] 35 U/L <38 [facility] Cobalamin (Vitamin B12) [Mass/Vol] 555 pg/mL 180-914 [facility] Lymphocytes Auto (Unsp spec) [#/Vol]Ordered By: Ethan Avendano on 10-29-2024 Lymphocytes (Bld) [#/Vol] 0.90 10*3/uL 0.83-4.51 [facility] Lymphocytes/100 WBC Auto (Un sp spec)Ordered By: Ethan Avendano on 10-29-2024 Lymphocytes/100 WBC (Bld) 19.3 % 19-41 [facility] MCV (mean corpuscular volume ) determinationOrdered By: Ethan Avendano on 10-29-2024 MCV (RBC) [Entitic vol] 91.5 fL 80-94 [facility] Mean corpuscular hemoglobin (MCH) determinationOrdered By: Ethan Avendano on 10-29-2024 MCH (RBC) [Entitic mass] 30.5 pg 27.0-32.0 [facility] Mean corpuscular hemoglobin concentration (MCHC) determinationOrdered By: Ethan Avendano on 10-29-2024 MCHC (RBC) [Mass/Vol] 33.3 g/dL 32-36 [facility] Mean platelet volume determi nationOrdered By: Ethan Avendano on 10-29-2024 Platelet mean volume (Bld) [Entitic vol] 11.4 fL 6.2-12.0 [facility] Monocyte percentageOrdered B y: Ethan Avendano on 10-29-2024 Monocytes/100 WBC (Bld) 10.7 % High 0-10 [facility] Neutrophil percentageOrdered By: Ethan Avendano on 10-29-2024 Neutrophils/100 WBC (Bld) 69.4 % 47-70 [facility] Nucleated red blood cell per centageOrdered By: Ethan Avendano on 10-29-2024 Nucleated RBC/100 WBC (Bld) [Ratio] 0 % 0-5 [facility] Platelet countOrdered By: Abdulkadir Avendano on 10-29-2024 Platelets (Bld) [#/Vol] 126 10*3/uL Low 150-450 [facility] RBC Auto (Bld) [#/Vol]Ordere d By: Ethan Avendano on 10-29-2024 RBC (Bld) [#/Vol] 4.49 10*6/uL Low 4.6-6.2 [facility] Serum globulin measurementOr dered By: Ethan Avendano on 10-29-2024 Globulin (S) [Mass/Vol] 2.4 g/dL 2.2-4.2 [facility] Serum glucose measurement (m ass/volume)Ordered By: Ethan Avendano on 10-29-2024 Glucose [Mass/Vol] 80 mg/dL 70-99 [facility] Serum or plasma alanine garcia otransferase (ALT) measurementOrdered By: Ethan Avendano on 10-29-2024 ALT [Catalytic activity/Vol] 31 U/L <47 [facility] Serum or plasma albumin john urement (mass/volume)Ordered By: Ethna Avendano on 10-29-2024 Albumin [Mass/Vol] 4.3 g/dL 3.4-4.8 [facility] Serum or plasma albumin/glob ulin mass ratioOrdered By: Ethan Avendano on 10-29-2024 Albumin/Globulin [Mass ratio] 1.8 {ratio} 0.9-2.4 [facility] Serum or plasma alkaline dylon sphatase measurementOrdered By: Ethan Avendano on 10-29-2024 ALP [Catalytic activity/Vol] 63 U/L 40-129 [facility] Serum or plasma anion gap de termination (moles/volume)Ordered By: Ethan Avendano on 10-29-2024 Anion gap [Moles/Vol] 11 mmol/L 5-15 [facility] Serum or plasma calcium john urement (mass/volume)Ordered By: Ethan Avendano on 10-29-2024 Calcium [Mass/Vol] 9.6 mg/dL 7.6-11.0 [facility] Serum or plasma creatinine m easurement (moles/volume)Ordered By: Ethan Avendano on 10-29-2024 Creatinine [Moles/Vol] 1.0 mg/dL 0.8-1.3 [facility] Serum or plasma potassium me asurementOrdered By: Ethan Avendano on 10-29-2024 Potassium [Moles/Vol] 4.5 mmol/L 3.3-5.1 [facility] Serum or plasma sodium measu rement (moles/volume)Ordered By: Ethan Avendano on 10-29-2024 Sodium [Moles/Vol] 138 mmol/L 133-145 [facility] Serum or plasma urea nitroge n measurement (mass/volume)Ordered By: Ethan Avendano on 10-29-2024 Urea nitrogen [Mass/Vol] 15 mg/dL 4-19 [facility] T4 freeOrdered By: Ethan cheng on 10-29-2024 Free T4 [Mass/Vol] 0.90 ng/dL 0.76-1.46 [facility] TSH DL <= 0.005 mIU/L QnOrde red By: Ethan Avendano on 10-29-2024 Thyroid Stimulating Hormone (TSH) 6.000 uIU/mL High 0.300-4.200 [facility] TSH Qn 6.000 uIU/mL High 0.300-4.200 [facility] Total proteinOrdered By: Gaby Avendano on 10-29-2024 Protein [Mass/Vol] 6.7 g/dL 5.9-8.4 [facility] White blood cell (WBC) count Ordered By: Ethan Avendano on 10-29-2024 WBC (Bld) [#/Vol] 4.7 10*3/uL 4.4-11.0 [facility] Barium Enema w/Air Contrasto n 09-11-2024 Barium Enema w/Air Contrast [facility] Imaging Services [address] [place] [address] Barium Enema w/Air Contrast MR#: [id number] Acct: [id number] Name: FRANCISCO RAMOS Rep #: [id number] : 1950 74 From: Derick villarreal MD PCP: Dr. Ethan Avendano MD Status: [facility] Study: Barium Enema w/Air Contrast Date of Exam: 04/28 Exam# [id number] Ordering Dr: Jameel Oseguera [id number] STUDY: BARIUM ENEMA. REASON FOR EXAM: Male, 74 years old. Incomplete colonoscopy/tortuous colon FLUOROSCOPY TIME (if supplied): ( 1 minute and 40 seconds ) minutes/seconds. 93.09 mGy. 7 images were obtained. TECHNIQUE: A play leader film was obtained. Following this, barium enema [...] Jameel Oseguera MD; Dr. 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 Ethan Avendano MD Status:REG [facility] Patient Name: Francisco Ramos Procedure Date: 08/23/2024 [...] barium enema. Procedure Code(s): --- Professional --- 28288, 53, Colonoscopy, flexible; diagnostic, including collection of specimen(s) by brushing or washing, when performed (separate procedure) Diagnosis Code(s): --- Professional --- R19.5, Other fecal abnormalities Q43.8, Other specified congenital malformations of intestine CPT copyright 2021 [employer]. All rights reserved. The codes documented in this report are preliminary and upon photograph mounter review may be revised to meet current compliance requirements. Jameel Oseguera MD 08/23/2024 8:53:45 AM This report has been signed electronically. Number of Addenda: 0 Note Initiated On: 08/23/2024 8:12 AM 08/23/24853 Date Jameel Oseguera MD Cosigner Signature: Date (if indicated) CC: Dr. Jameel Oseguera MD; Dr. Ethan Avendano MD Date Dictated: 08/23/24811 Date Transcribed: Truck Body Builder Apprentice: HELLEN Signed [facility] MR/POSTOP.Ladan 08-23-2024 MR/POSTOP.[facility] Medical Records Department [address] [place] [address] Anesthesia Postop Eval I 08/23/24 0859 MR#: [id number] Acct: [id number] Name: FRANCISCO RAMOS Rep #: [id number] : 1950 74 From: Herman Villa PCP: Dr. Ethan Avendano MD Status:REG SDC Y Race: C Location: [place] [address] Anesthesia: Postop Eval I Current Vital Signs [...] Eval 1 completed: Yes 08/23/24900 Date Herman Lemosignabdulkadir Signature: Date CC: Signed Normal [facility] MR/[id number] 08-23-2024 [facility] Medical Records Department [address] [place] [address] Anesthesia Postop Eval II 08/23/24910 MR#: [id number] Acct: [id number] Name: FRANCISCO RAMOS Rep #: [id number] : 1950 74 From: Aleksandar Hudson MD PCP: Dr. Ethan Avendano MD Status:REG [facility] Y Race: C Location: [place] [address] Anesthesia Postop Eval I Sum Postop Eval [...] Aleksandar Cruz Signature: Date CC: Signed Normal [facility] MR/WHITLEYjenny 08-22-2024 MR/MARIEL.LOBO [facility] Medical Records Department [address] [facility] [place] [address] PAT - Anesthesia 08/22/24 1525 MR#: [id number] Acct: [id number] Name: FRANCISCO RAMOS Rep #: [id number] : 1950 74 From: Sage Tracey MD PCP: Dr. 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 Hx Hospitalization No 08/22/24 10:23 Any Problems [...] take am of surgery PONV PONV - water service dispatcher: PONV - water service dispatcher Female No 08/22/24 10:23 HX of Motion [...] 07/11/24 11:11 Respiratory Assessment Respiratory Assessment - water service dispatcher: Respiratory Tract Infection Hx - water service dispatcher Hx Respiratory Tract Infection No 08/22/24 10:23 STOP Sleep Apnea STOP Sleep Apnea - water service dispatcher: STOP Sleep Apnea - water service dispatcher Hx Hypertension No 08/22/24 10:23 Hx Sleep [...] Tobacco Use History Tobacco Use History - water service dispatcher: Tobacco Use History - water service dispatcher Tobacco Use Smoking Status Never smoker 08/22/24 10:23 Hx Tobacco Use No 08/22/24 10:23 Years Smoking Packs Smoked per Day Smoking Cessation Date was within the last 15 years Hx Smoking Cessation Date Hx Smoking Cessation Counseling Hematologic Medial History Hematologic Hx - water service dispatcher: 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 Hx of Blood Transfusion No 08/22/24 10:23 [...] /Reproducti on History /Reproducti ve History - water service dispatcher: /Reproducti ve Hx- water service dispatcher Hx Now No 08/22/24 10:23 Gestational Age (in weeks): EDC: Hx Hx Para Hx Section SAB No 08/22/24 10:23 [facility] Medical History (Updated 08/22/24 @ 10:37 by Bebe Nava) Wears glasses Arthritis High cholesterol Easy bruising Back pain Non-smoker History of pain when walking History of echocardiogram History of stress test Cardiology follow-up encounter Parkinson disease Atherosclerosis of coronary artery of [place] heart without angina pectoris Hyperlipidemia Common variable immunodeficiency Benign prostate hyperplasia Basal cell carcinoma of left ear Home Medications ???Medication ???Instructions ???Recorded ???Last Taken ???Type multivitamin with folic acid 400 1 tab PO DAILY 06/10/13 08/19/24 History mcg tablet folic acid 400 mcg tablet 1 tab PO DAILY 12/24/13 Unknown History immune glob,gamma(IgG) 10 20 g .Route .[id number] 03/04/19 Unknown History fxfo-kul-wsmv-IgA 0 to 50 mcg/mL IV solution nitroglycerin 0.4 mg sublingual 0.4 mg sublingual Q5-15M PRN chest 04/03/19 Unknown Rx tablet pain #25 tabs celecoxib 200 mg capsule 200 mg PO BID 06/04 (more content not included)... Normal [facility] Surgery Visit Reporton 07-10 Surgery Visit Report [facility] [address] [place] [address] [address] [place] [address] OFFICE VISIT Date of Service: 07/10/24 MR#: [id number] Acct: [id number] Name: FRANCISCO RAMOS Rep #: [id number] : 1950 Provider: Dr. Jameel workman MD Age/Sex: 74/M Location: [facility] Status: Signed Intake Vital Signs 06/06/24 10:48 [...] History immune glob,gamma(IgG) 10 20 g .Route .[id number] 03/04/19 07/10/24 History bdwm-ylt-bwre-IgA 0 to 50 mcg/mL IV solution nitroglycerin [...] chest CT Atherosclerosis of coronary artery of [place] heart without angina pectoris Basal cell carcinoma [...] No heada (more content not included)... Normal [facility] PSA,Total - Annual Screenon 03-28-2024 PSA,TOT SCREEN 4.65 ng/mL High 0.00-4.00 [facility] Comment on above: Result Comment: This test was performed using the TPSA assay method for the [employer] chemistry system. Values obtained with different assay methods cannot be used interchangably. When changing PSA assays in the course of monitoring a patient, additional sequential testing should be carried out to confirm baseline values. Performed By: #### L 501.9910 #### [facility] [address] [place], [address] Absolute lymphocyte countOrd ered By: Ethan Avendaon on 11-16-2023 Lymphocytes Auto (Unsp spec) [#/Vol] 0.84 10*3/uL 0.83-4.51 [facility] Automated lymphocyte count a s percentage of total leukocytesOrdered By: Ethan Avendano on 11-16-2023 Lymphocytes/100 WBC Auto (Unsp spec) 22.5 % 19-41 [facility] Basophil percentageOrdered B y: Ethan Avendano on 11-16-2023 Basophils/100 WBC (Bld) 0.0 % 0-1 [facility] Bilirubin [Mass/Vol] 0.70 mg/dL 0.20-1.00 [facility] Comment on above: For patients on eltr ombopag therapy, use of Dimension [place] TBIL is not recommended. Chloride [Moles/Vol] 104 mmol/L 98-107 [facility] Cholesterol [Mass/Vol] 93 mg/dL <200 [facility] Comment on above: <200 mg/dL Desirable 200-240 mg/dL Borderline >240 mg/dL High Risk Eosinophils/100 WBC (Bld) 0.0 % 0-5 [facility] Glucose [Mass/Vol] 90 mg/dL 74-106 [facility] Hemoglobin (Bld) [Mass/Vol] 13.1 g/dL 13.0-16.5 [facility] Monocytes/100 WBC (Bld) 11.5 % 0-10 [facility] Neutrophils (Bld) [#/Vol] 2.5 10*3/uL 2.0-7.7 [facility] Neutrophils/100 WBC (Bld) 65.7 % 47-70 [facility] Potassium [Moles/Vol] 4.0 mmol/L 3.5-5.1 [facility] Protein [Mass/Vol] 6.8 g/dL 6.4-8.2 [facility] Sodium [Moles/Vol] 139 mmol/L 136-145 [facility] Triglyceride [Mass/Vol] 123 mg/dL <199 [facility] Comment on above: The drugs N-Acetylcy steine and Metamizole may falsely depress this assay.Serum Triglycerides Reference Interval Normal <150 mg/dL Borderline high 150 - 199 mg/dL High 200 - 499 mg/dL Very High > or = 500 mg/dL WBC (Bld) [#/Vol] 3.7 10*3/uL 4.4-11.0 [facility] Determination of erythrocyte mean corpuscular volume (MCV)Ordered By: Ethan Avendano on 11-16-2023 MCV (RBC) [Entitic vol] 92.2 fL 80-94 [facility] Erythrocyte distribution wid th ratioOrdered By: Ethan Avendano on 11-16-2023 Erythrocyte distribution width (RBC) [Ratio] 13.2 % 11.6-14.6 [facility] Erythrocyte distribution wid th standard deviationOrdered By: Ethan Avendano on 11-16-2023 Erythrocyte distribution width (RBC) [Entitic vol] 45.0 fL 35.1-43.9 [facility] Hematocrit Auto (Bld) [Volum e fraction]Ordered By: Ethan Avendano on 11-16-2023 Hematocrit (Bld) [Volume fraction] 40.3 % 40-54 [facility] Immature granulocytes/100 WB C Auto (Bld)Ordered By: Ethan Avendano on 11-16-2023 Immature granulocytes/100 WBC (Bld) 0.300 % 0.0-0.9 [facility] Comment on above: IG% - Immature Granu locytes (promyelocytes, myelocytes and metamyelocytes) > 1% indicates that a LEFT SHIFT is Present. Laboratory - Chemistry and C hemistry - challengeOrdered By: Ethan Avendano on 11-16-2023 Albumin/Globulin [Mass ratio] 1.1 {ratio} 0.9-2.4 [facility] ALP [Catalytic activity/Vol] 54 U/L 45-117 [facility] ALT [Catalytic activity/Vol] 26 U/L 16-61 [facility] Cholesterol in HDL [Mass/Vol] 31 mg/dL >40 [facility] Comment on above: The drugs N-Acetylcy steine and Metamizole may falsely depress this assay. Reference Range HDL <40 mg/dL Low HDL Cholesterol HDL >or= 60 mg/dL High HDL Cholesterol Cholesterol in LDL [Mass/Vol] 37 mg/dL 0-130 [facility] CO2 [Moles/Vol] 28.0 mmol/L 21.0-32.0 [facility] Globulin (S) [Mass/Vol] 3.2 g/dL 2.2-4.2 [facility] Urea nitrogen/Creatinine [Mass ratio] 19.2 mg/mg 10-20 [facility] Laboratory - Hematology and Cell countsOrdered By: Ethan Avendano on 11-16-2023 MCH (RBC) [Entitic mass] 30.0 pg 27.0-32.0 [facility] MCHC (RBC) [Mass/Vol] 32.5 g/dL 32-36 [facility] Nucleated RBC/100 WBC (Bld) [Ratio] 0 % 0-5 [facility] Platelet mean volume (Bld) [Entitic vol] 11.8 fL 6.2-12.0 [facility] Platelets (Bld) [#/Vol] 103 10*3/uL 150-450 [facility] No Panel InformationOrdered By: Ethan Avendano on 11-16-2023 Estimated GFR (MDRD) Amer 109 mL/min >60 [facility] Comment on above: GFR Calc Estimated GFR (MDRD) Non-Af Amer 90 mL/min >60 [facility] Comment on above: Non- GFR Calc VLDL Cholesterol 25 mg/dL 5-40 [facility] RBC Auto (Bld) [#/Vol]Ordere d By: Ethan Avendano on 11-16-2023 RBC (Bld) [#/Vol] 4.37 10*6/uL 4.6-6.2 [facility] Serum or plasma calcium john urement (mass/volume)Ordered By: Ethan Avendano on 11-16-2023 Calcium [Mass/Vol] 9.1 mg/dL 8.5-10.1 [facility] Serum or plasma creatinine m easurement (mass/volume)Ordered By: Ethan Avendano on 11-16-2023 Creatinine [Mass/Vol] 0.89 mg/dL 0.70-1.30 [facility] Comment on above: The validity of the calculated GFR & GFRAA in patients over 70 years has not been determined. Clinical correlation is essential. Serum or plasma urea nitroge n measurement (mass/volume)Ordered By: Ethan Avendano on 11-16-2023 Urea nitrogen [Mass/Vol] 17 mg/dL 7-18 [facility] Thin prep Papanicolaou smear with manual screeningOrdered By: Ethan Avendano on 11-16-2023 Thin prep Papanicolaou smear with manual screening 3.6 g/dL 3.2-5.0 [facility] Thin prep Papanicolaou smear with manual screening 26 U/L 15-37 [facility] Thin prep Papanicolaou smear with manual screening 7 5-15 [facility] CNTHERAPYon 10-06-2023 CNTHERAPY OT/PT/Speech Visit (OTNOCA) FRANCISCO RAMOS ([id number]) 1950 M Date Time Provider Department 10/06/23 1:30 PM FLORENCE EUGENE Date Time Provider Department Center 10/06/2023 1:30 PM [id number] EUGENE [employer] [facility] N Reason for Visit: OT Discharge [750] [...] Prostate Specific Antigen Screen 4.24 ng/mL 0.00-4.00 [facility] Comment on above: This test was perfor med using the TPSA assay method for the[facility] Center[facility] chemistry system. Values obtained with differentassay methods cannot be used interchangably.When changing PSA assays in the course of monitoring apatient, additional sequential testing should be carriedout to confirm baseline values. Basophil percentageOrdered B y: Lory He on 02-01-2023 Bilirubin [Mass/Vol] 0.50 mg/dL 0.20-1.00 [facility] Comment on above: For patients on eltr ombopag therapy, use of Dimension [place] TBIL is not recommended. Cholesterol [Mass/Vol] 82 mg/dL <200 [facility] Comment on above: <200 mg/dL Desirable 200-240 mg/dL Borderline >240 mg/dL High Risk Protein [Mass/Vol] 6.9 g/dL 6.4-8.2 [facility] Triglyceride [Mass/Vol] 93 mg/dL <199 [facility] Comment on above: The drugs N-Acetylcy steine and Metamizole may falsely depress this assay.Serum Triglycerides Reference Interval Normal <150 mg/dL Borderline high 150 - 199 mg/dL High 200 - 499 mg/dL Very High > or = 500 mg/dL Direct bilirubinOrdered By: Lory He on 02-01-2023 Bilirubin.direct [Mass/Vol] 0.12 mg/dL 0.00-0.30 [facility] Laboratory - Chemistry and C hemistry - challengeOrdered By: Lory He on 02-01-2023 ALP [Catalytic activity/Vol] 71 U/L 45-117 [facility] ALT [Catalytic activity/Vol] 15 U/L 16-61 [facility] Globulin (S) [Mass/Vol] 3.4 g/dL 2.2-4.2 [facility] Serum or plasma albumin john urement (mass/volume)Ordered By: Lory He on 02-01-2023 Albumin [Mass/Vol] 3.5 g/dL 3.2-5.0 [facility] Serum or plasma cholesterol in HDL measurement (mass/volume)Ordered By: Lory He on 02-01-2023 Cholesterol in HDL [Mass/Vol] 29 mg/dL >40 [facility] Comment on above: The drugs N-Acetylcy steine and Metamizole may falsely depress this assay. Reference Range HDL <40 mg/dL Low HDL Cholesterol HDL >or= 60 mg/dL High HDL Cholesterol Serum or plasma cholesterol in VLDL measurement (mass/volume)Ordered By: Lory He on 02-01-2023 Cholesterol in VLDL [Mass/Vol] 19 mg/dL 5-40 [facility] Serum or plasma low density lipoprotein (LDL) cholesterol measurement (mass/volume)Ordered By: Lory He on 02-01-2023 Cholesterol in LDL [Mass/Vol] 34 mg/dL 0-130 [facility] Thin prep Papanicolaou smear with manual screeningOrdered By: Lory He on 02-01-2023 Thin prep Papanicolaou smear with manual screening 30 U/L 15-37 [facility] CNOVon 12-29-2022 CNOV Office Visit (NRMDN) FRANCISCO RAMOS ([id number]) 1950 M Date Time Provider Department 12/29/22 [...] or you can send a message through [facility]. You can also now schedule and select appointments through [employer]. MD Latisha Ta MD 12/29/2022 10:53 AM [...] last fall. torn rotator cuff. [employer]- spectates more than helping Difficulties turning [...] for Fa (more content not included)... Normal [facility] Absolute lymphocyte countOrd ered By: Dr. Avendano on 07-07-2022 Lymphocytes Auto (Unsp spec) [#/Vol] 0.77 10*3/uL 0.83-4.51 [facility] Basophil percentageOrdered B y: Dr. Avendano on 07-07-2022 Basophils/100 WBC (Bld) 0.0 % 0-1 [facility] Bilirubin [Mass/Vol] 0.50 mg/dL 0.20-1.00 [facility] Comment on above: For patients on eltr ombopag therapy, use of Dimension [place] TBIL is not recommended. Chloride [Moles/Vol] 104 mmol/L 98-107 [facility] Eosinophils/100 WBC (Bld) 0.0 % 0-5 [facility] Glucose [Mass/Vol] 114 mg/dL 74-106 [facility] Comment on above: Fasting Glucose resu lt from 100 to 125 mg/dL suggests IMPAIRED HOMEOSTASIS per A.D.A. criteria. Neutrophils (Bld) [#/Vol] 3.7 10*3/uL 2.0-7.7 [facility] Neutrophils/100 WBC (Bld) 74.9 % 47-70 [facility] Potassium [Moles/Vol] 4.3 mmol/L 3.5-5.1 [facility] Protein [Mass/Vol] 6.8 g/dL 6.4-8.2 [facility] Sodium [Moles/Vol] 136 mmol/L 136-145 [facility] WBC (Bld) [#/Vol] 4.9 10*3/uL 4.4-11.0 [facility] Blood erythrocytes count (nu mber/volume)Ordered By: Dr. Avendano on 07-07-2022 RBC (Bld) [#/Vol] 4.38 10*6/uL 4.6-6.2 [facility] Blood hemoglobin measurement (mass/volume)Ordered By: Dr. Avendano on 07-07-2022 Hemoglobin (Bld) [Mass/Vol] 13.8 g/dL 13.0-16.5 [facility] Blood lymphocytes/100 leukoc ytesOrdered By: Dr. Avendano on 07-07-2022 Lymphocytes/100 WBC (Bld) 15.6 % 19-41 [facility] Blood monocytes/100 leukocyt esOrdered By: Dr. Avendano on 07-07-2022 Monocytes/100 WBC (Bld) 9.1 % 0-10 [facility] Blood platelet mean volumeOr dered By: Dr. Avendano on 07-07-2022 Platelet mean volume (Bld) [Entitic vol] 12.0 fL 6.2-12.0 [facility] Determination of erythrocyte mean corpuscular volume (MCV)Ordered By: Dr. Avendano on 07-07-2022 MCV (RBC) [Entitic vol] 94.1 fL 80-94 [facility] Hematocrit Auto (Bld) [Volum e fraction]Ordered By: Dr. Avendano on 07-07-2022 Hematocrit (Bld) [Volume fraction] 41.2 % 40-54 [facility] Laboratory - Chemistry and C hemistry - challengeOrdered By: Dr. Avendano on 07-07-2022 ALP [Catalytic activity/Vol] 59 U/L 45-117 [facility] ALT [Catalytic activity/Vol] 39 U/L 16-61 [facility] CO2 [Moles/Vol] 29.0 mmol/L 21.0-32.0 [facility] Globulin (S) [Mass/Vol] 3.1 g/dL 2.2-4.2 [facility] Urea nitrogen/Creatinine [Mass ratio] 28.5 mg/mg 10-20 [facility] Laboratory - Hematology and Cell countsOrdered By: Dr. Avendano on 07-07-2022 Erythrocyte distribution width (RBC) [Entitic vol] 43.1 fL 35.1-43.9 [facility] Erythrocyte distribution width (RBC) [Ratio] 12.4 % 11.6-14.6 [facility] Immature granulocytes/100 WBC (Bld) 0.400 % 0.0-0.9 [facility] Comment on above: IG% - Immature Granu locytes (promyelocytes, myelocytes and metamyelocytes) > 1% indicates that a LEFT SHIFT is Present. MCH (RBC) [Entitic mass] 31.5 pg 27.0-32.0 [facility] Nucleated RBC/100 WBC (Bld) [Ratio] 0 % 0-5 [facility] MCHC Auto (RBC) [Mass/Vol]Or dered By: Dr. Avendano on 07-07-2022 MCHC (RBC) [Mass/Vol] 33.5 g/dL 32-36 [facility] No Panel InformationOrdered By: Dr. Avendano on 07-07-2022 Estimated GFR (MDRD) Amer 135 mL/min >60 [facility] Comment on above: GFR Calc Estimated GFR (MDRD) Non-Af Amer 112 mL/min >60 [facility] Comment on above: Non- GFR Calc Platelets bldOrdered By: Dr. Avendano on 07-07-2022 Platelets (Bld) [#/Vol] 112 10*3/uL 150-450 [facility] Serum or plasma albumin john urement (mass/volume)Ordered By: Dr. Avendano on 07-07-2022 Albumin [Mass/Vol] 3.7 g/dL 3.2-5.0 [facility] Serum or plasma albumin/glob ulin mass ratioOrdered By: Dr. Avendano on 07-07-2022 Albumin/Globulin [Mass ratio] 1.2 {ratio} 0.9-2.4 [facility] Serum or plasma calcium john urement (mass/volume)Ordered By: Dr. Avendano on 07-07-2022 Calcium [Mass/Vol] 9.2 mg/dL 8.5-10.1 [facility] Serum or plasma creatinine m easurement (mass/volume)Ordered By: Dr. Avendano on 07-07-2022 Creatinine [Mass/Vol] 0.74 mg/dL 0.70-1.30 [facility] Comment on above: The validity of the calculated GFR & GFRAA in patients over 70 years has not been determined. Clinical correlation is essential. Serum or plasma urea nitroge n measurement (mass/volume)Ordered By: Dr. Avendano on 07-07-2022 Urea nitrogen [Mass/Vol] 21 mg/dL 7-18 [facility] Thin prep Papanicolaou smear with manual screeningOrdered By: Dr. Avendano on 07-07-2022 Thin prep Papanicolaou smear with manual screening 26 U/L 15-37 [facility] Thin prep Papanicolaou smear with manual screening 3 5-15 [facility] Absolute immature granulocyt e counton 12-02-2021 Immature granulocytes (Bld) [#/Vol] 0 10*3/uL 0.0-0.1 [facility] Work Phone: Absolute lymphocyte counton 12-02-2021 Lymphocytes Auto (Unsp spec) [#/Vol] 0.87 10*3/uL 0.83-4.51 [facility] Work Phone: Lymphocytes Auto (Unsp spec) [#/Vol] 1.0 10*3/uL 0.7-3.1 [facility] Work Phone: Basophil percentageon 2021 Basophils/100 WBC (Bld) 0.2 % 0-1 [facility] Work Phone: Bilirubin [Mass/Vol] 0.70 mg/dL 0.20-1.00 [facility] Work Phone: [phone] Comment on above: For patients on eltr ombopag therapy, use of Dimension [place] TBIL is not recommended. Chloride [Moles/Vol] 106 mmol/L 98-107 [facility] Work Phone: [phone] Cholesterol [Mass/Vol] 80 mg/dL <200 [facility] Work Phone: [phone] Comment on above: <200 mg/dL Desirable 200-240 mg/dL Borderline >240 mg/dL High Risk Eosinophils/100 WBC (Bld) 0.0 % 0-5 [facility] Work Phone: [phone] Glucose [Mass/Vol] 94 mg/dL 74-106 [facility] Work Phone: [phone] Monocytes (Bld) [#/Vol] 0.4 10*3/uL 0.1-0.9 [facility] Work Phone: [phone] Neutrophils (Bld) [#/Vol] 4.2 10*3/uL 2.0-7.7 [facility] Work Phone: [phone] Neutrophils (Bld) [#/Vol] 4.4 10*3/uL 1.4-7.0 [facility] Work Phone: [phone] Neutrophils/100 WBC (Bld) 75.8 % 47-70 [facility] Work Phone: [phone] Potassium [Moles/Vol] 4.3 mmol/L 3.5-5.1 [facility] Work Phone: [phone] Protein [Mass/Vol] 6.8 g/dL 6.4-8.2 [facility] Work Phone: Sodium [Moles/Vol] 136 mmol/L 136-145 [facility] Work Phone: Triglyceride [Mass/Vol] 99 mg/dL <199 [facility] Work Phone: Comment on above: The drugs N-Acetylcy steine and Metamizole may falsely depress this assay.Serum Triglycerides Reference Interval Normal <150 mg/dL Borderline high 150 - 199 mg/dL High 200 - 499 mg/dL Very High > or = 500 mg/dL WBC (Bld) [#/Vol] 5.9 10*3/uL 3.4-10.8 [facility] Work Phone: Basophils/100 WBC Auto (Bld) on 12-02-2021 Basophils/100 WBC (Bld) 0 % Not Estab. [facility] Work Phone: Blood basophils count (numbe r/volume)on 12-02-2021 Basophils (Bld) [#/Vol] 0 10*3/uL 0.0-0.2 [facility] Work Phone: Blood eosinophils count (num nadiya/volume)on 12-02-2021 Eosinophils (Bld) [#/Vol] 0 10*3/uL 0.0-0.4 [facility] Work Phone: Blood hematocrit (volume fra ction)on 12-02-2021 Hematocrit (Bld) [Volume fraction] 41.1 % 37.5-51.0 [facility] Work Phone: Blood hemoglobin measurement (mass/volume)on 12-02-2021 Hemoglobin (Bld) [Mass/Vol] 13.6 g/dL 13.0-17.7 [facility] Work Phone: Blood immature cells/100 sherita kocyteson 12-02-2021 Immature cells/100 WBC (Bld) TNP [facility] Work Phone: Comment on above: Test not performed Blood immature granulocytes/ 100 leukocyteson 12-02-2021 Immature granulocytes/100 WBC (Bld) 0 % Not Estab. [facility] Work Phone: Blood lymphocytes/100 leukoc yteson 12-02-2021 Lymphocytes/100 WBC (Bld) 15.7 % 19-41 [facility] Work Phone: Blood monocytes/100 leukocyt eson 12-02-2021 Monocytes/100 WBC (Bld) 7.8 % 0-10 [facility] Work Phone: Blood platelet mean volumeon 12-02-2021 Platelet mean volume (Bld) [Entitic vol] 11.9 fL 6.2-12.0 [facility] Work Phone: CD3+CD8+ (T8 suppressor cell s) cells/100 cells (Bld)on 12-02-2021 CD3+CD8+ (T8 suppressor cells) cells (Bld) [#/Vol] 323 /uL 109-897 [facility] Work Phone: Count of whole blood cells p ositive for CD3 and CD4 antigens (number/volume)on 12-02-2021 CD3+CD4+ (T4 helper) cells (Bld) [#/Vol] 284 /uL [phone] [facility] Work Phone: Eosinophils/100 WBC Auto (Bl d)on 12-02-2021 Eosinophils/100 WBC (Bld) 0 % Not Estab. [facility] Work Phone: Erythrocyte distribution wid th ratioon 12-02-2021 Erythrocyte distribution width (RBC) [Ratio] 13.0 % 11.6-15.4 [facility] Work Phone: Interpretation of morphologi c examination of blood (narrative result)on 12-02-2021 Morphology Fritz (Bld) [Interp] TNP [facility] Work Phone: Comment on above: Test not performed Laboratory - Chemistry and C hemistry - challengeon 12-02-2021 ALP [Catalytic activity/Vol] 65 U/L 45-117 [facility] Work Phone: ALT [Catalytic activity/Vol] 15 U/L 16-61 [facility] Work Phone: CO2 [Moles/Vol] 26.0 mmol/L 21.0-32.0 [facility] Work Phone: Globulin (S) [Mass/Vol] 3.1 g/dL 2.2-4.2 [facility] Work Phone: Urea nitrogen/Creatinine [Mass ratio] 26.2 mg/mg 10-20 [facility] Work Phone: Laboratory - Hematology and Cell countson 12-02-2021 Erythrocyte distribution width (RBC) [Entitic vol] 43.1 fL 35.1-43.9 [facility] Work Phone: Erythrocyte distribution width (RBC) [Ratio] 12.8 % 11.6-14.6 [facility] Work Phone: Immature granulocytes/100 WBC (Bld) 0.500 % 0.0-0.9 [facility] Work Phone: Comment on above: IG% - Immature Granu locytes (promyelocytes, myelocytes and metamyelocytes) > 1% indicates that a LEFT SHIFT is Present. Nucleated RBC/100 WBC (Bld) [Ratio] 0 % 0-5 [facility] Work Phone: Lymphocytes/100 WBC Auto (Bl d)on 12-02-2021 Lymphocytes/100 WBC (Bld) 18 % Not Estab. [facility] Work Phone: MCHC Auto (RBC) [Mass/Vol]on 12-02-2021 MCHC (RBC) [Mass/Vol] 33.1 g/dL 31.5-35.7 [facility] Work Phone: Neutrophils Auto (Bld) [#/Vo l]on 12-02-2021 Neutrophils/100 WBC (Bld) 75 % Not Estab. [facility] Work Phone: No Panel Informationon 12-02 Estimated GFR (MDRD) Amer 116 mL/min >60 [facility] Work Phone: Comment on above: GFR Calc Estimated GFR (MDRD) Non-Af Amer 96 mL/min >60 [facility] Work Phone: Comment on above: Non- GFR Calc Prostate Specific Antigen Total 3.21 ng/mL 0.0-4.0 [facility] Work Phone: Comment on above: This test was perfor med using the TPSA assay method for [employer] chemistry system. Values obtained with differentassay methods cannot be used interchangably.When changing PSA assays in the course of monitoring apatient, additional sequential testing should be carriedout to confirm baseline values. Percentage of whole blood ce lls positive for CD3 and CD4 antigenson 12-02-2021 CD3+CD4+ (T4 helper) cells/100 cells (Bld) 28.4 % 30.8-58.5 [facility] Work Phone: Percentage of whole blood ce lls positive for CD3 and CD8 antigenson 12-02-2021 CD3+CD8+ (T8 suppressor cells) cells/100 cells (Bld) 32.3 % 12.0-35.5 [facility] Work Phone: Platelets bldon 12-02-2021 Platelets (Bld) [#/Vol] 103 10*3/uL 150-450 [facility] Work Phone: RBC Auto (Bld) [#/Vol]on RBC (Bld) [#/Vol] 4.41 10*6/uL 4.14-5.80 [facility] Work Phone: Ratio of whole blood cells p ositive for CD3 and CD4 antigens to cells positive for CDon 12-02-2021 CD3+CD4+ (T4 helper) cells/CD3+CD8+ (T8 suppressor cells) cells (Bld) [# ratio] 0.88 % 0.92-3.72 [facility] Work Phone: Serum or plasma IgA measurem ent (mass/volume)on 12-02-2021 IgA [Mass/Vol] mg/dL 61-437 [facility] Work Phone: Comment on above: Result confirmed on concentration. Serum or plasma IgG measurem ent (mass/volume)on 12-02-2021 IgG [Mass/Vol] 723 mg/dL [phone] [facility] Work Phone: Serum or plasma IgM measurem ent (mass/volume)on 12-02-2021 IgM [Mass/Vol] mg/dL 20-172 [facility] Work Phone: Comment on above: Result confirmed on concentration.Performed at: [facility] [id number] Director: Rm Tyson PhD, Phone: [phone] Serum or plasma albumin john urement (mass/volume)on 12-02-2021 Albumin [Mass/Vol] 3.7 g/dL 3.2-5.0 [facility] Work Phone: Serum or plasma albumin/glob ulin mass ratioon 12-02-2021 Albumin/Globulin [Mass ratio] 1.2 {ratio} 0.9-2.4 [facility] Work Phone: Serum or plasma calcium john urement (mass/volume)on 12-02-2021 Calcium [Mass/Vol] 8.8 mg/dL 8.5-10.1 [facility] Work Phone: Serum or plasma cholesterol in HDL measurement (mass/volume)on 12-02-2021 Cholesterol in HDL [Mass/Vol] 27 mg/dL >40 [facility] Work Phone: Comment on above: The drugs N-Acetylcy steine and Metamizole may falsely depress this assay. Reference Range HDL <40 mg/dL Low HDL Cholesterol HDL >or= 60 mg/dL High HDL Cholesterol Serum or plasma cholesterol in VLDL measurement (mass/volume)on 12-02-2021 Cholesterol in VLDL [Mass/Vol] 20 mg/dL 5-40 [facility] Work Phone: Serum or plasma creatinine m easurement (mass/volume)on 12-02-2021 Creatinine [Mass/Vol] 0.84 mg/dL 0.70-1.30 [facility] Work Phone: Comment on above: The validity of the calculated GFR & GFRAA in patients over 70 years has not been determined. Clinical correlation is essential. Serum or plasma low density lipoprotein (LDL) cholesterol measurement (mass/volume)on 12-02-2021 Cholesterol in LDL [Mass/Vol] 33 mg/dL 0-130 [facility] Work Phone: Serum or plasma urea nitroge n measurement (mass/volume)on 12-02-2021 Urea nitrogen [Mass/Vol] 22 mg/dL 7-18 [facility] Work Phone: Thin prep Papanicolaou smear with manual screeningon 12-02-2021 Thin prep Papanicolaou smear with manual screening 34 U/L 15-37 [facility] Work Phone: Thin prep Papanicolaou smear with manual screening 4 5-15 [facility] Work Phone: Thin prep Papanicolaou smear with manual screening 93 fL 79-97 [facility] Work Phone: Thin prep Papanicolaou smear with manual screening 30.8 pg 26.6-33.0 [facility] Work Phone: Thin prep Papanicolaou smear with manual screening 7 % Not Estab. [facility] Work Phone: [phone] NM BRAIN DATSCANon 9 NM BRAIN DATSCAN [...] 08/08/2019 8:56:11 AM Ordering Provider:Aureliano Bavis Normal On License Of [facility]) Vital Signs Date Time Vital Sign Value Performing Clinician Facility 03-21-2025 05:02-0400 Body temperature 97.59 [degF] Bhanu Jaxsonrakola DO Work Phone: [facility] 03-21-2025 05:02-0400 Diastolic blood pressure 89 mm[Hg] Bhanu Jaxsonrakola DO Work Phone: [facility] 03-21-2025 05:02-0400 Heart rate 89 /min Bhanu Urbankola DO Work Phone: [facility] 03-21-2025 05:02-0400 Respiratory rate 16 /min Bhanu Urbankola DO Work Phone: [facility] 03-21-2025 05:02-0400 SaO2% (BldA) [Mass fraction] 97 % Bhanu Urbankola DO Work Phone: [facility] 03-21-2025 05:02-0400 Systolic blood pressure 146 mm[Hg] Bhanu Jaxsonrakola DO Work Phone: [facility] 03-19-2025 12:28-0400 Body height 172.7 cm Bhanu Arletla DO Work Phone: [facility] 03-16-2025 06:20-0400 Body mass index (BMI) [Ratio] 21.29 kg/m2 Bhanu Nicela DO Work Phone: [facility] 03-16-2025 06:20-0400 Body weight 63.5 kg Bhanu Nicela DO Work Phone: [facility] 03-16-2025 04:39-0400 Body temperature 98.3 [degF] Dr. Ethan Avendano MD Work Phone: [facility] 03-16-2025 04:39-0400 Diastolic blood pressure 75 mm[Hg] Dr. Ethan Avendano MD Work Phone: [facility] 03-16-2025 04:39-0400 Heart rate 88 /min Dr. Ethan Avendano MD Work Phone: 2(562)907-603520 [place] [address] 03-16-2025 04:39-0400 Respiratory rate 18 /min Dr. Ethan Avendano MD Work Phone: 1(854)963-095799 [place] [address] 03-16-2025 04:39-0400 SaO2% (BldA) [Mass fraction] 97 % Dr. Ethan Avendano MD Work Phone: 5(886)074-446599 [place] [address] 03-16-2025 04:39-0400 Systolic blood pressure 116 mm[Hg] Dr. Ethan Avendano MD Work Phone: 5(277)323-771299 [place] [address] 03-15-2025 21:18-0400 Body height 170.[address] Ethan Avendano MD Work Phone: 6(978)390-589899 [place] [address] 03-15-2025 21:18-0400 Body mass index (BMI) [Ratio] 22.7 kg/m2 Dr. Ethan Avendano MD Work Phone: 8(254)332-640899 [place] [address] 03-15-2025 21:18-0400 Body weight 65.[address] Ethan Avendano MD Work Phone: 1(041)241-018699 [place] [address] 03-05-2025 11:26-0400 Body height 170.[address] Ethan Avendano MD Work Phone: 0(188)809-942999 [place] [address] 03-05-2025 11:26-0400 Body mass index (BMI) [Ratio] 22.7 kg/m2 Dr. Ethan Avendano MD Work Phone: 7(844)056-797699 [place] [address] 03-05-2025 11:26-0400 Body temperature 96.3 [degF] Dr. Ethan Avendano MD Work Phone: 9(058)173-340299 [place] [address] 03-05-2025 11:26-0400 Body weight 65.[address] Ethan Avendano MD Work Phone: 4(001)675-612599 [place] [address] 03-05-2025 11:26-0400 Diastolic blood pressure 62 mm[Hg] Dr. Ethan Avendano MD Work Phone: 4(325)504-876799 [place] [address] 03-05-2025 11:26-0400 Heart rate 97 /min Dr. Ethan Avendano MD Work Phone: [facility] 03-05-2025 11:26-0400 Respiratory rate 16 /min Dr. Ethan Avendano MD Work Phone: 7(144)855-650220 [place] [address] 03-05-2025 11:26-0400 SaO2% (BldA) [Mass fraction] 97 % Dr. Ethan Avendano MD Work Phone: 8(602)631-188120 [place] [address] 03-05-2025 11:26-0400 Systolic blood pressure 118 mm[Hg] Dr. Ethan Avendano MD Work Phone: 1(610)652-592899 [place] [address] 02-05-2025 09:47-0400 Body height 170.[address] Ethan Avendano MD Work Phone: 3(413)455-086199 [place] [address] 02-05-2025 09:47-0400 Body mass index (BMI) [Ratio] 24.1 kg/m2 Dr. Ethan Avendano MD Work Phone: 3(769)004-626120 [place] [address] 02-05-2025 09:47-0400 Body temperature 97.9 [degF] Dr. Ethan Avendano MD Work Phone: 5(599)859-918799 [place] [address] 02-05-2025 09:47-0400 Body weight 69.[address] Ethan Avendano MD Work Phone: 6(625)357-100699 [place] [address] 02-05-2025 09:47-0400 Diastolic blood pressure 62 mm[Hg] Dr. Ethan Avendano MD Work Phone: 3(263)065-291620 [place] [address] 02-05-2025 09:47-0400 Heart rate 86 /min Dr. Ethan Avendano MD Work Phone: 9(350)175-388820 [place] [address] 02-05-2025 09:47-0400 Respiratory rate 16 /min Dr. Ethan Avendano MD Work Phone: 6(088)975-830820 [place] [address] 02-05-2025 09:47-0400 SaO2% (BldA) [Mass fraction] 98 % Dr. Ethan Avendano MD Work Phone: 8(508)695-849020 [place] [address] 02-05-2025 09:47-0400 Systolic blood pressure 114 mm[Hg] Dr. Ethan Avendano MD Work Phone: [facility] 01-02-2025 10:58-0400 Body height 170.[address] Ethan Avendano MD Work Phone: 9(072)184-888299 [place] [address] 01-02-2025 10:58-0400 Body mass index (BMI) [Ratio] 23.8 kg/m2 Dr. Ethan Avendano MD Work Phone: 7(367)561-234799 [place] [address] 01-02-2025 10:58-0400 Body temperature 97.2 [degF] Dr. Ethan Avendano MD Work Phone: 2(932)929-264199 [place] [address] 01-02-2025 10:58-0400 Body weight 68.[address] Ethan Avendano MD Work Phone: 6(951)090-099999 [place] [address] 01-02-2025 10:58-0400 Diastolic blood pressure 76 mm[Hg] Dr. Ethan Avendano MD Work Phone: 9(045)636-902399 [place] [address] 01-02-2025 10:58-0400 Heart rate 82 /min Dr. Ethan Avendano MD Work Phone: 7(291)632-785399 [place] [address] 01-02-2025 10:58-0400 Respiratory rate 16 /min Dr. Ethan Avendano MD Work Phone: 1(962)175-409499 [place] [address] 01-02-2025 10:58-0400 SaO2% (BldA) [Mass fraction] 100 % Dr. Ethan Avendano MD Work Phone: 8(827)122-713299 [place] [address] 01-02-2025 10:58-0400 Systolic blood pressure 116 mm[Hg] Dr. Ethan Avendano MD Work Phone: 2(243)569-099199 [place] [address] 12-05-2024 11:09-0400 Body height 170.[address] Ethan Avendano MD Work Phone: 3(414)130-460799 [place] [address] 12-05-2024 11:09-0400 Body temperature 96.3 [degF] Dr. Ethan Avendano MD Work Phone: 4(128)927-014699 [place] [address] 12-05-2024 11:09-0400 Diastolic blood pressure 52 mm[Hg] Dr. Ethan Avendano MD Work Phone: [facility] 12-05-2024 11:09-0400 Heart rate 83 /min Dr. Ethan Avendano MD Work Phone: [facility] 12-05-2024 11:09-0400 Respiratory rate 16 /min Dr. Ethan Avendano MD Work Phone: [facility] 12-05-2024 11:09-0400 SaO2% (BldA) [Mass fraction] 100 % Dr. Ethan Avendano MD Work Phone: [facility] 12-05-2024 11:09-0400 Systolic blood pressure 107 mm[Hg] Dr. Ethan Avendano MD Work Phone: 5(532)843-631420 [place] [address] 11-28-2024 10:50-0400 Body mass index (BMI) [Ratio] 23.8 kg/m2 Dr. Ethan Avendano MD Work Phone: 1(532)572-889720 [place] [address] 11-28-2024 10:50-0400 Body weight 68.[address] Ethan Avendano MD Work Phone: [facility] 11-28-2024 10:50-0400 Diastolic blood pressure 62 mm[Hg] Dr. Ethan Avendano MD Work Phone: [facility] 11-28-2024 10:50-0400 Heart rate 78 /min Dr. Ethan Avendano MD Work Phone: [facility] 11-28-2024 10:50-0400 Respiratory rate 16 /min Dr. Ethan Avendano MD Work Phone: [facility] 11-28-2024 10:50-0400 Systolic blood pressure 107 mm[Hg] Dr. Ethan Avendano MD Work Phone: [facility] 11-07-2024 11:02-0500 Body height 170.[address] Ethan Avendano MD Work Phone: [facility] 11-07-2024 11:02-0500 Body mass index (BMI) [Ratio] 22.7 kg/m2 Dr. Ethan Avendano MD Work Phone: [facility] 11-07-2024 11:02-0500 Body temperature 97 [degF] Dr. Ethan Avendano MD Work Phone: 5(196)766-817920 [place] [address] 11-07-2024 11:02-0500 Body weight 65.[address] Ethan Avendano MD Work Phone: 0(887)527-332399 [place] [address] 11-07-2024 11:02-0500 Diastolic blood pressure 58 mm[Hg] Dr. Ethan Avendano MD Work Phone: 7(531)997-381499 [place] [address] 11-07-2024 11:02-0500 Heart rate 82 /min Dr. Ethan Avendano MD Work Phone: 6(517)893-031899 [place] [address] 11-07-2024 11:02-0500 Respiratory rate 16 /min Dr. Ethan Avendano MD Work Phone: 1(768)634-033099 [place] [address] 11-07-2024 11:02-0500 SaO2% (BldA) [Mass fraction] 99 % Dr. Ethan Avendano MD Work Phone: 9(652)134-660899 [place] [address] 11-07-2024 11:02-0500 Systolic blood pressure 121 mm[Hg] Dr. Ethan Avendano MD Work Phone: 7(076)901-676699 [place] [address] 10-10-2024 09:52-0500 Body mass index (BMI) [Ratio] 24.7 kg/m2 Dr. Ethan Avendano MD Work Phone: 1(295)223-224999 [place] [address] 10-10-2024 09:52-0500 Body temperature 97.5 [degF] Dr. Ethan Avendano MD Work Phone: 2(959)057-026499 [place] [address] 10-10-2024 09:52-0500 Body weight 71.[address] Ethan Avendano MD Work Phone: 2(749)846-657299 [place] [address] 10-10-2024 09:52-0500 Diastolic blood pressure 58 mm[Hg] Dr. Ethan Avendano MD Work Phone: 3(307)820-980299 [place] [address] 10-10-2024 09:52-0500 Heart rate 65 /min Dr. Ethan Avendano MD Work Phone: 2(941)650-693399 [place] [address] 10-10-2024 09:52-0500 Respiratory rate 16 /min Dr. Ethan Avendano MD Work Phone: [facility] 10-10-2024 09:52-0500 SaO2% (BldA) [Mass fraction] 99 % Dr. Ethan Avendano MD Work Phone: 5(798)746-224420 [place] [address] 10-10-2024 09:52-0500 Systolic blood pressure 127 mm[Hg] Dr. Ethan Avendnao MD Work Phone: 2(109)114-713292 [address] 09-05-2024 12:02-0500 Body mass index (BMI) [Ratio] 24.3 kg/m2 Dr. Ethan Avendano MD Work Phone: 1(512)174-939399 [place] [address] 09-05-2024 12:02-0500 Body temperature 97.7 [degF] Dr. Ethan Avendano MD Work Phone: 9(061)833-049492 [address] 09-05-2024 12:02-0500 Body weight 70.[address] Ethan Avendano MD Work Phone: 0(753)423-707320 [place] [address] 09-05-2024 12:02-0500 Diastolic blood pressure 53 mm[Hg] Dr. Ethan Avendano MD Work Phone: 1(534)242-430592 [address] 09-05-2024 12:02-0500 Heart rate 62 /min Dr. Ethan Avendano MD Work Phone: 3(568)295-488592 [address] 09-05-2024 12:02-0500 Respiratory rate 16 /min Dr. Ethan Avendano MD Work Phone: 8(129)125-865920 [place] [address] 09-05-2024 12:02-0500 SaO2% (BldA) [Mass fraction] 100 % Dr. Ethan Avendano MD Work Phone: 1(473)895-347120 [place] [address] 09-05-2024 12:02-0500 Systolic blood pressure 136 mm[Hg] Dr. Ethan Avendano MD Work Phone: 7(564)650-632320 [place] [address] 08-23-2024 09:10-0500 Body temperature 98 [degF] Dr. Ethan Avendano MD Work Phone: 0(183)090-039620 [place] [address] 08-23-2024 09:10-0500 Diastolic blood pressure 64 mm[Hg] Dr. Ethan Avendano MD Work Phone: 9(054)155-727320 [place] [address] 08-23-2024 09:10-0500 Heart rate 74 /min Dr. Ethan Avendano MD Work Phone: 3(817)501-075499 [place] [address] 08-23-2024 09:10-0500 Respiratory rate 16 /min Dr. Ethan Avendano MD Work Phone: 8(999)245-829899 [place] [address] 08-23-2024 09:10-0500 SaO2% (BldA) [Mass fraction] 97 % Dr. Ethan Avendano MD Work Phone: 2(678)343-838399 [place] [address] 08-23-2024 09:10-0500 Systolic blood pressure 106 mm[Hg] Dr. Ethan Avendano MD Work Phone: 4(981)404-998099 [place] [address] 08-23-2024 07:29-0500 Body mass index (BMI) [Ratio] 24.3 kg/m2 Dr. Ethan Avendano MD Work Phone: 2(426)197-160399 [place] [address] 08-23-2024 07:29-0500 Body weight 70.[address] Ethan Avendano MD Work Phone: 9(370)910-942399 [place] [address] 08-08-2024 11:47-0500 Body mass index (BMI) [Ratio] 24.4 kg/m2 Dr. Ethan Avendano MD Work Phone: 2(016)086-417092 [address] 08-08-2024 11:47-0500 Body temperature 96.5 [degF] Dr. Ethan Avendano MD Work Phone: 2(990)668-040820 [place] [address] 08-08-2024 11:47-0500 Body weight 70.[address] Ethan Avendano MD Work Phone: 0(818)711-690599 [place] [address] 08-08-2024 11:47-0500 Diastolic blood pressure 56 mm[Hg] Dr. Ethan Avendano MD Work Phone: 7(807)332-278992 [address] 08-08-2024 11:47-0500 Heart rate 62 /min Dr. Ethan Avendano MD Work Phone: 4(211)223-664092 [address] 08-08-2024 11:47-0500 Respiratory rate 16 /min Dr. Ethan Avendano MD Work Phone: 5(782)384-612620 [place] [address] 08-08-2024 11:47-0500 SaO2% (BldA) [Mass fraction] 99 % Dr. Ethan Avendano MD Work Phone: 4(203)263-014092 [address] 08-08-2024 11:47-0500 Systolic blood pressure 132 mm[Hg] Dr. Ethan Avendano MD Work Phone: 1(171)902-844099 [place] [address] 07-11-2024 11:11-0500 Body mass index (BMI) [Ratio] 24.9 kg/m2 Dr. Ethan Avendano MD Work Phone: 3(133)204-614899 [place] [address] 07-11-2024 11:11-0500 Body temperature 97 [degF] Dr. Ethan Avendano MD Work Phone: 5(769)518-518199 [place] [address] 07-11-2024 11:11-0500 Body weight 72.[address] Ethan Avendano MD Work Phone: 3(710)398-071499 [place] [address] 07-11-2024 11:11-0500 Diastolic blood pressure 47 mm[Hg] Dr. Ethan Avendano MD Work Phone: 0(891)012-037399 [place] [address] 07-11-2024 11:11-0500 Heart rate 59 /min Dr. Ethan Avendano MD Work Phone: 8(694)459-589299 [place] [address] 07-11-2024 11:11-0500 Respiratory rate 16 /min Dr. Ethan Avendano MD Work Phone: 6(140)492-649499 [place] [address] 07-11-2024 11:11-0500 SaO2% (BldA) [Mass fraction] 99 % Dr. Ethan Avendano MD Work Phone: 9(337)241-268799 [place] [address] 07-11-2024 11:11-0500 Systolic blood pressure 130 mm[Hg] Dr. Ethan Avendano MD Work Phone: 6(015)339-993599 [place] [address] 01-04-2024 10:36-0400 Body height 170.[address] Ethan Avendano Work Phone: 3(821)827-415599 [place] [address] 01-04-2024 10:36-0400 Body temperature 97.8 [degF] Dr. Ethan Avendano Work Phone: [facility] 01-04-2024 10:36-0400 Diastolic blood pressure 50 mm[Hg] Dr. Ethan Avendano Work Phone: [facility] 01-04-2024 10:36-0400 Heart rate 61 /min Dr. Ethan Avendano Work Phone: [facility] 01-04-2024 10:36-0400 Respiratory rate 16 /min Dr. Ethan Avendano Work Phone: [facility] 01-04-2024 10:36-0400 SaO2% (BldA) [Mass fraction] 98 % Dr. Ethan Avendano Work Phone: [facility] 01-04-2024 10:36-0400 Systolic blood pressure 105 mm[Hg] Dr. Ethan Avendano Work Phone: [facility] 12-07-2023 10:46-0400 Body height 170.[address] Ehtan Avendano Work Phone: [facility] 12-07-2023 10:46-0400 Body temperature 96.8 [degF] Dr. Ethan Avendano Work Phone: [facility] 12-07-2023 10:46-0400 Diastolic blood pressure 61 mm[Hg] Dr. Ethan Avendano Work Phone: [facility] 12-07-2023 10:46-0400 Heart rate 62 /min Dr. Ethan Avendano Work Phone: [facility] 12-07-2023 10:46-0400 Respiratory rate 16 /min Dr. Ethan Avendano Work Phone: [facility] 12-07-2023 10:46-0400 SaO2% (BldA) [Mass fraction] 100 % Dr. Ethan Avendano Work Phone: [facility] 12-07-2023 10:46-0400 Systolic blood pressure 116 mm[Hg] Dr. Ethan Avendano Work Phone: [facility] 11-09-2023 10:29-0500 Body height 170.[address] Ehtan Avendano Work Phone: [facility] 11-09-2023 10:29-0500 Body temperature 97.9 [degF] Dr. Ethan Avendano Work Phone: [facility] 11-09-2023 10:29-0500 Diastolic blood pressure 62 mm[Hg] Dr. Ethan Avendano Work Phone: [facility] 11-09-2023 10:29-0500 Heart rate 73 /min Dr. Ethan Avendano Work Phone: [facility] 11-09-2023 10:29-0500 Respiratory rate 16 /min Dr. Ethan Avendano Work Phone: [facility] 11-09-2023 10:29-0500 Systolic blood pressure 117 mm[Hg] Dr. Ethan Avendano Work Phone: [facility] 10-10-2023 10:23-0500 Body mass index (BMI) [Ratio] 24.9 kg/m2 Dr. Ethan Avendano Work Phone: [facility] 10-10-2023 10:23-0500 Body weight 72.[address] Ethan Avendano Work Phone: [facility] 10-10-2023 10:23-0500 Diastolic blood pressure 73 mm[Hg] Dr. Ethan Avendano Work Phone: [facility] 10-10-2023 10:23-0500 Heart rate 63 /min Dr. Ethan Avendano Work Phone: [facility] 10-10-2023 10:23-0500 Respiratory rate 18 /min Dr. Ethan Avendano Work Phone: [facility] 10-10-2023 10:23-0500 SaO2% (BldA) [Mass fraction] 99 % Dr. Ethan Avendano Work Phone: [facility] 10-10-2023 10:23-0500 Systolic blood pressure 128 mm[Hg] Dr. Ethan Avendano Work Phone: [facility] 10-05-2023 10:05-0500 Body height 170.18 cm [facility] 10-05-2023 10:05-0500 Body temperature 98.1 [degF] [facility] 10-05-2023 10:05-0500 Diastolic blood pressure 45 mm[Hg] [facility] 10-05-2023 10:05-0500 Heart rate 63 /min [facility] 10-05-2023 10:05-0500 Respiratory rate 16 /min [facility] 10-05-2023 10:05-0500 SaO2% (BldA) [Mass fraction] 100 % [facility] 10-05-2023 10:05-0500 Systolic blood pressure 105 mm[Hg] [facility] 09-07-2023 10:25-0500 Body height 170.18 cm [facility] 09-07-2023 10:25-0500 Body mass index (BMI) [Ratio] 24.3 kg/m2 [facility] 09-07-2023 10:25-0500 Body temperature 97 [degF] [facility] 09-07-2023 10:25-0500 Body weight 70.3 kg [facility] 09-07-2023 10:25-0500 Diastolic blood pressure 51 mm[Hg] [facility] 09-07-2023 10:25-0500 Heart rate 64 /min [facility] 09-07-2023 10:25-0500 Respiratory rate 16 /min [facility] 09-07-2023 10:25-0500 SaO2% (BldA) [Mass fraction] 97 % [facility] 09-07-2023 10:25-0500 Systolic blood pressure 114 mm[Hg] [facility] 08-10-2023 11:01-0500 Body mass index (BMI) [Ratio] 24.3 kg/m2 [facility] 08-10-2023 11:01-0500 Body weight 70.3 kg [facility] 07-06-2023 10:12-0400 Body height 170.[address] Ethan Avendano Work Phone: [facility] 07-06-2023 10:12-0400 Body mass index (BMI) [Ratio] 24.1 kg/m2 Dr. Ethan Avendano Work Phone: [facility] 07-06-2023 10:12-0400 Body temperature 97.6 [degF] Dr. Ethan Avendano Work Phone: [facility] 07-06-2023 10:12-0400 Body weight 69.[address] Ethan Avendano Work Phone: 7(140)646-093620 [place] [address] 07-06-2023 10:12-0400 Diastolic blood pressure 58 mm[Hg] Dr. Ethan Avendano Work Phone: 6(721)196-759492 [address] 07-06-2023 10:12-0400 Heart rate 75 /min Dr. Ethan Avendano Work Phone: 8(257)944-157892 [address] 07-06-2023 10:12-0400 Respiratory rate 16 /min Dr. Ethan Avendano Work Phone: 3(984)459-124820 [place] [address] 07-06-2023 10:12-0400 SaO2% (BldA) [Mass fraction] 98 % Dr. Ethan Avendano Work Phone: 3(293)923-648592 [address] 07-06-2023 10:12-0400 Systolic blood pressure 130 mm[Hg] Dr. Ethan Avendano Work Phone: 2(677)312-730520 [place] [address] 06-08-2023 11:06-0400 Body temperature 97.1 [degF] Dr. Ethan Avendano Work Phone: [facility] 06-08-2023 11:06-0400 Diastolic blood pressure 56 mm[Hg] Dr. Ethan Avendano Work Phone: 5(538)045-273020 [place] [address] 06-08-2023 11:06-0400 Heart rate 65 /min Dr. Ethan Avendano Work Phone: [facility] 06-08-2023 11:06-0400 Respiratory rate 16 /min Dr. Ethan Avendano Work Phone: 2(204)360-895420 [place] [address] 06-08-2023 11:06-0400 SaO2% (BldA) [Mass fraction] 100 % Dr. Ethan Avendano Work Phone: [facility] 06-08-2023 11:06-0400 Systolic blood pressure 125 mm[Hg] Dr. Ethan Avendano Work Phone: [facility] 05-10-2023 11:11-0400 Body height 170.[address] Ethan Avendano Work Phone: 5(975)357-682392 [address] 05-10-2023 11:11-0400 Body mass index (BMI) [Ratio] 24.3 kg/m2 Dr. Ethan Avendano Work Phone: 0(225)973-135592 [address] 05-10-2023 11:11-0400 Body temperature 98.3 [degF] Dr. Ethan Avendano Work Phone: 7(365)963-660792 [address] 05-10-2023 11:11-0400 Body weight 70.[address] Ethan Avendano Work Phone: [facility] 05-10-2023 11:11-0400 Diastolic blood pressure 51 mm[Hg] Dr. Ethan Avendano Work Phone: 8(862)146-848292 [address] 05-10-2023 11:11-0400 Heart rate 73 /min Dr. Ethan Avendano Work Phone: 0(433)625-023120 [place] [address] 05-10-2023 11:11-0400 Respiratory rate 16 /min Dr. Ethan Avendano Work Phone: [facility] 05-10-2023 11:11-0400 SaO2% (BldA) [Mass fraction] 97 % Dr. Ethan Avendano Work Phone: [facility] 05-10-2023 11:11-0400 Systolic blood pressure 117 mm[Hg] Dr. Ethan Avendano Work Phone: [facility] 04-05-2023 11:03-0400 Body height 170.[address] Ethan Avendano Work Phone: [facility] 04-05-2023 11:03-0400 Body temperature 97.2 [degF] Dr. Ethan Avendano Work Phone: [facility] 04-05-2023 11:03-0400 Diastolic blood pressure 62 mm[Hg] Dr. Ethan Avendano Work Phone: [facility] 04-05-2023 11:03-0400 Heart rate 63 /min Dr. Ethan Avendano Work Phone: [facility] 04-05-2023 11:03-0400 Respiratory rate 16 /min Dr. Ethan Avendano Work Phone: [facility] 04-05-2023 11:03-0400 SaO2% (BldA) [Mass fraction] 98 % Dr. Ethan Avendano Work Phone: 5(477)430-519120 [place] [address] 04-05-2023 11:03-0400 Systolic blood pressure 122 mm[Hg] Dr. Ethan Avendano Work Phone: 9(727)054-642792 [address] 03-08-2023 12:58-0400 Body height 170.[address] Ethan Avendano Work Phone: [facility] 03-08-2023 12:58-0400 Body mass index (BMI) [Ratio] 23.9 kg/m2 Dr. Ethan Avendano Work Phone: [facility] 03-08-2023 12:58-0400 Body temperature 98.6 [degF] Dr. Ethan Avendano Work Phone: [facility] 03-08-2023 12:58-0400 Body weight 69.[address] Ethan Avendnao Work Phone: [facility] 03-08-2023 12:58-0400 Diastolic blood pressure 53 mm[Hg] Dr. Ethan Avendano Work Phone: [facility] 03-08-2023 12:58-0400 Heart rate 71 /min Dr. Ethan Avendano Work Phone: [facility] 03-08-2023 12:58-0400 Respiratory rate 16 /min Dr. Ethan Avendano Work Phone: 2(168)386-518120 [place] [address] 03-08-2023 12:58-0400 SaO2% (BldA) [Mass fraction] 97 % Dr. Ethan Avendano Work Phone: [facility] 03-08-2023 12:58-0400 Systolic blood pressure 119 mm[Hg] Dr. Ethan Avendano Work Phone: 3(294)327-745220 [place] [address] 02-03-2023 11:03-0400 Body height 170.[address] Ethan Avendano Work Phone: 6(696)097-852720 [place] [address] 02-03-2023 11:03-0400 Body temperature 97 [degF] Dr. Ethan Avendano Work Phone: 5(853)520-096399 [place] [address] 02-03-2023 11:03-0400 Diastolic blood pressure 53 mm[Hg] Dr. Ethan Avendano Work Phone: 9(182)616-304899 [place] [address] 02-03-2023 11:03-0400 Heart rate 66 /min Dr. Ethan Avendano Work Phone: 0(235)602-677899 [place] [address] 02-03-2023 11:03-0400 Respiratory rate 16 /min Dr. Ethan Avendano Work Phone: 0(925)094-429492 [address] 02-03-2023 11:03-0400 SaO2% (BldA) [Mass fraction] 100 % Dr. Ethan Avendano Work Phone: 8(890)185-249292 [address] 02-03-2023 11:03-0400 Systolic blood pressure 117 mm[Hg] Dr. Ethan Avendano Work Phone: 6(217)553-243020 [place] [address] 02-01-2023 08:32-0400 Body mass index (BMI) [Ratio] 23.8 kg/m2 Dr. Ethan Avendano Work Phone: 7(514)434-519292 [address] 02-01-2023 08:32-0400 Body weight 68.[address] Ethan Avendano Work Phone: 1(486)163-684420 [place] [address] 02-01-2023 08:32-0400 Diastolic blood pressure 69 mm[Hg] Dr. Ethan Avendano Work Phone: 2(725)188-659920 [place] [address] 02-01-2023 08:32-0400 Heart rate 70 /min Dr. Ethan Avendano Work Phone: [facility] 02-01-2023 08:32-0400 Respiratory rate 18 /min Dr. Ethan Avendano Work Phone: [facility] 02-01-2023 08:32-0400 SaO2% (BldA) [Mass fraction] 99 % Dr. Ethan Avendano Work Phone: [facility] 02-01-2023 08:32-0400 Systolic blood pressure 117 mm[Hg] Dr. Ethan Avendano Work Phone: [facility] 01-05-2023 09:29-0400 Body height 170.18 cm [facility] 01-05-2023 09:29-0400 Body temperature 98.4 [degF] [facility] 01-05-2023 09:29-0400 Diastolic blood pressure 53 mm[Hg] [facility] 01-05-2023 09:29-0400 Heart rate 73 /min [facility] 01-05-2023 09:29-0400 Respiratory rate 16 /min [facility] 01-05-2023 09:29-0400 SaO2% (BldA) [Mass fraction] 99 % [facility] 01-05-2023 09:29-0400 Systolic blood pressure 114 mm[Hg] [facility] 12-29-2022 08:06-0400 Diastolic blood pressure 64 mm[Hg] Latisha Robles MD Work Phone: [facility] 12-29-2022 08:06-0400 Heart rate 99 /min Latisha Robles MD Work Phone: [facility] 12-29-2022 08:06-0400 SaO2% (BldA) [Mass fraction] 82 % Latisha Robles MD Work Phone: [facility] 12-29-2022 08:06-0400 Systolic blood pressure 121 mm[Hg] Latisha Robles MD Work Phone: [facility] 12-08-2022 11:20-0400 Body height 170.18 cm [facility] 12-08-2022 11:20-0400 Diastolic blood pressure 87 mm[Hg] [facility] 12-08-2022 11:20-0400 Heart rate 76 /min [facility] 12-08-2022 11:20-0400 Respiratory rate 16 /min [facility] 12-08-2022 11:20-0400 SaO2% (BldA) [Mass fraction] 100 % [facility] 12-08-2022 11:20-0400 Systolic blood pressure 130 mm[Hg] [facility] 11-04-2022 11:23-0500 Body height 170.18 cm [facility] 11-04-2022 11:23-0500 Body temperature 97.9 [degF] [facility] 11-04-2022 11:23-0500 Diastolic blood pressure 60 mm[Hg] [facility] 11-04-2022 11:23-0500 Heart rate 60 /min [facility] 11-04-2022 11:23-0500 Respiratory rate 16 /min [facility] 11-04-2022 11:23-0500 SaO2% (BldA) [Mass fraction] 100 % [facility] 11-04-2022 11:23-0500 Systolic blood pressure 123 mm[Hg] [facility] 10-07-2022 11:02-0500 Body height 170.18 cm [facility] 10-07-2022 11:02-0500 Body mass index (BMI) [Ratio] 24.3 kg/m2 [facility] 10-07-2022 11:02-0500 Body temperature 97.9 [degF] [facility] 10-07-2022 11:02-0500 Body weight 70.3 kg [facility] 10-07-2022 11:02-0500 Diastolic blood pressure 55 mm[Hg] [facility] 10-07-2022 11:02-0500 Heart rate 63 /min [facility] 10-07-2022 11:02-0500 Respiratory rate 16 /min [facility] 10-07-2022 11:02-0500 SaO2% (BldA) [Mass fraction] 100 % [facility] 10-07-2022 11:02-0500 Systolic blood pressure 132 mm[Hg] [facility] 09-09-2022 11:12-0500 Body height 170.18 cm [facility] 09-09-2022 11:12-0500 Body mass index (BMI) [Ratio] 24.5 kg/m2 [facility] 09-09-2022 11:12-0500 Body temperature 97.7 [degF] [facility] 09-09-2022 11:12-0500 Body weight 71.21 kg [facility] 09-09-2022 11:12-0500 Diastolic blood pressure 66 mm[Hg] [facility] 09-09-2022 11:12-0500 Heart rate 68 /min [facility] 09-09-2022 11:12-0500 Respiratory rate 16 /min [facility] 09-09-2022 11:12-0500 SaO2% (BldA) [Mass fraction] 99 % [facility] 09-09-2022 11:12-0500 Systolic blood pressure 149 mm[Hg] [facility] 08-04-2022 10:51-0500 Body height 170.[address] Ethan Avendano Work Phone: [facility] Work Phone: 08-04-2022 10:51-0500 Body mass index (BMI) [Ratio] 23.8 kg/m2 Dr. Ethan Avendano Work Phone: [facility] 08-04-2022 10:51-0500 Body temperature 96.9 [degF] Dr. Ethan Avendano Work Phone: [facility] 08-04-2022 10:51-0500 Body weight 68.[address] Ethan Avendano Work Phone: [facility] 08-04-2022 10:51-0500 Diastolic blood pressure 59 mm[Hg] Dr. Ethan Avendano Work Phone: [facility] 08-04-2022 10:51-0500 Heart rate 72 /min Dr. Ethan Avendano Work Phone: [facility] 08-04-2022 10:51-0500 Respiratory rate 12 /min Dr. Ethan Avendano Work Phone: [facility] 08-04-2022 10:51-0500 SaO2% (BldA) [Mass fraction] 100 % Dr. Ethan Avendano Work Phone: [facility] 08-04-2022 10:51-0500 Systolic blood pressure 126 mm[Hg] Dr. Ethan Avendano Work Phone: [facility] 07-08-2022 11:09-0400 Body height 170.[address] Ethan Avendano Work Phone: [facility] Work Phone: 07-08-2022 11:09-0400 Body temperature 98.1 [degF] Dr. Ethan Avendano Work Phone: [facility] 07-08-2022 11:09-0400 Diastolic blood pressure 63 mm[Hg] Dr. Ethan Avendano Work Phone: [facility] 07-08-2022 11:09-0400 Heart rate 67 /min Dr. Ethan Avendano Work Phone: [facility] 07-08-2022 11:09-0400 Respiratory rate 16 /min Dr. Ethan Avendano Work Phone: [facility] 07-08-2022 11:09-0400 SaO2% (BldA) [Mass fraction] 99 % Dr. Ethan Avendano Work Phone: [facility] 07-08-2022 11:09-0400 Systolic blood pressure 135 mm[Hg] Dr. Ethan Avendano Work Phone: [facility] 06-10-2022 11:18-0400 Body height 170.[address] Ethan Avendano Work Phone: [facility] Work Phone: 06-10-2022 11:18-0400 Body mass index (BMI) [Ratio] 24.4 kg/m2 Dr. Ethan Avendano Work Phone: [facility] 06-10-2022 11:18-0400 Body temperature 98.2 [degF] Dr. Ethan Avendano Work Phone: [facility] 06-10-2022 11:18-0400 Body weight 70.[address] Ethan Avendano Work Phone: [facility] 06-10-2022 11:18-0400 Diastolic blood pressure 59 mm[Hg] Dr. Ethan Avendano Work Phone: [facility] 06-10-2022 11:18-0400 Heart rate 66 /min Dr. Ethan Avendano Work Phone: [facility] 06-10-2022 11:18-0400 Respiratory rate 12 /min Dr. Ethan Avendano Work Phone: [facility] [facility]22 11:18-0400 SaO2% (BldA) [Mass fraction] 99 % Dr. Ethan Avendano Work Phone: [facility] 06-10-2022 11:18-0400 Systolic blood pressure 127 mm[Hg] Dr. Ethan Avendano Work Phone: [facility] 04-08-2022 11:31-0400 Body temperature 96.6 [degF] Dr. Ethan Avendano Work Phone: [facility] Work Phone: 04-08-2022 11:31-0400 Diastolic blood pressure 57 mm[Hg] Dr. Ethan Avendano Work Phone: [facility] Work Phone: 04-08-2022 11:31-0400 Heart rate 68 /min Dr. Ethan Avendano Work Phone: [facility] Work Phone: 04-08-2022 11:31-0400 SaO2% (BldA) [Mass fraction] 98 % Dr. Ethan Avendano Work Phone: [facility] Work Phone: 04-08-2022 11:31-0400 Systolic blood pressure 118 mm[Hg] Dr. Ethan Avendano Work Phone: [facility] Work Phone: 03-16-2022 11:23-0400 Body height 170.[address] Ethan Avendano Work Phone: [facility] Work Phone: 03-04-2022 11:24-0400 Body height 170.18 cm [facility] Work Phone: 03-04-2022 11:24-0400 Body mass index (BMI) [Ratio] 24.3 kg/m2 [facility] Work Phone: 03-04-2022 11:24-0400 Body temperature 98.4 [degF] [facility] Work Phone: 03-04-2022 11:24-0400 Body weight 70.3 kg [facility] Work Phone: 03-04-2022 11:24-0400 Diastolic blood pressure 54 mm[Hg] [facility] Work Phone: 03-04-2022 11:24-0400 Heart rate 65 /min [facility] Work Phone: 03-04-2022 11:24-0400 Respiratory rate 14 /min [facility] Work Phone: 03-04-2022 11:24-0400 SaO2% (BldA) [Mass fraction] 96 % [facility] Work Phone: 03-04-2022 11:24-0400 Systolic blood pressure 126 mm[Hg] [facility] Work Phone: 02-04-2022 10:46-0400 Body height 170.18 cm [facility] Work Phone: 02-04-2022 10:46-0400 Body mass index (BMI) [Ratio] 24.1 kg/m2 [facility] Work Phone: 02-04-2022 10:46-0400 Body temperature 98.2 [degF] [facility] Work Phone: 02-04-2022 10:46-0400 Body weight 69.85 kg [facility] Work Phone: 02-04-2022 10:46-0400 Diastolic blood pressure 48 mm[Hg] [facility] Work Phone: 02-04-2022 10:46-0400 Heart rate 60 /min [facility] Work Phone: 02-04-2022 10:46-0400 Respiratory rate 16 /min [facility] Work Phone: 02-04-2022 10:46-0400 SaO2% (BldA) [Mass fraction] 97 % [facility] Work Phone: 02-04-2022 10:46-0400 Systolic blood pressure 108 mm[Hg] [facility] Work Phone: 01-07-2022 11:04-0400 Body temperature 97.6 [degF] [facility] Work Phone: 01-07-2022 11:04-0400 Diastolic blood pressure 61 mm[Hg] [facility] Work Phone: 01-07-2022 11:04-0400 Heart rate 68 /min [facility] Work Phone: 01-07-2022 11:04-0400 Respiratory rate 16 /min [facility] Work Phone: 01-07-2022 11:04-0400 SaO2% (BldA) [Mass fraction] 96 % [facility] Work Phone: 01-07-2022 11:04-0400 Systolic blood pressure 128 mm[Hg] [facility] Work Phone: 12-03-2021 11:12-0400 Body height 170.[address] Ethan Avendano Work Phone: [facility] Work Phone: 12-03-2021 11:12-0400 Body mass index (BMI) [Ratio] 24.3 kg/m2 Dr. Ethan Avendano Work Phone: [facility] Work Phone: 12-03-2021 11:12-0400 Body temperature 98.1 [degF] Dr. Ethan Avendano Work Phone: [facility] Work Phone: 12-03-2021 11:12-0400 Body weight 70.[address] Ethan Avendano Work Phone: [facility] Work Phone: 12-03-2021 11:12-0400 Diastolic blood pressure 70 mm[Hg] Dr. Ethan Avendano Work Phone: [facility] Work Phone: 12-03-2021 11:12-0400 Heart rate 72 /min Dr. Ethan Avendano Work Phone: [facility] Work Phone: 12-03-2021 11:12-0400 Respiratory rate 16 /min Dr. Ethan Avendano Work Phone: [facility] Work Phone: 12-03-2021 11:12-0400 SaO2% (BldA) [Mass fraction] 97 % Dr. Ethan Avendano Work Phone: [facility] Work Phone: 12-03-2021 11:12-0400 Systolic blood pressure 142 mm[Hg] Dr. Ethan Avendano Work Phone: [facility] Work Phone: 11-05-2021 10:17-0500 Body mass index (BMI) [Ratio] 24.7 kg/m2 Dr. Ethan Avendano Work Phone: [facility] Work Phone: 11-05-2021 10:17-0500 Body temperature 98.4 [degF] Dr. Ethan Avendano Work Phone: [facility] Work Phone: 11-05-2021 10:17-0500 Body weight 71.[address] Ethan Avendano Work Phone: [facility] Work Phone: 11-05-2021 10:17-0500 Diastolic blood pressure 56 mm[Hg] Dr. Ethan Avendano Work Phone: [facility] Work Phone: 11-05-2021 10:17-0500 Heart rate 63 /min Dr. Ethan Avendano Work Phone: [facility] Work Phone: 11-05-2021 10:17-0500 Respiratory rate 16 /min Dr. Ethan Avendano Work Phone: [facility] Work Phone: 11-05-2021 10:17-0500 SaO2% (BldA) [Mass fraction] 100 % Dr. Ethan Avendano Work Phone: [facility] Work Phone: 11-05-2021 10:17-0500 Systolic blood pressure 120 mm[Hg] Dr. Ethan Avendano Work Phone: [facility] Work Phone: 10-08-2021 11:15-0500 Body temperature 96.6 [degF] Dr. Ethan Avendano Work Phone: [facility] Work Phone: 10-08-2021 11:15-0500 Diastolic blood pressure 57 mm[Hg] Dr. Ethan Avendano Work Phone: [facility] Work Phone: 10-08-2021 11:15-0500 Heart rate 62 /min Dr. Ethan Avendano Work Phone: [facility] Work Phone: 10-08-2021 11:15-0500 SaO2% (BldA) [Mass fraction] 98 % Dr. Ethan Avendano Work Phone: [facility] Work Phone: 10-08-2021 11:15-0500 Systolic blood pressure 123 mm[Hg] Dr. Ethan Avendano Work Phone: [facility] Work Phone: 10-08-2021 09:20-0500 Respiratory rate 16 /min Dr. Ethan Avendano Work Phone: [facility] Work Phone: 09-10-2021 10:35-0500 Body mass index (BMI) [Ratio] 24.7 kg/m2 Dr. Ethan Avendano Work Phone: [facility] Work Phone: 09-10-2021 10:35-0500 Body temperature 98.5 [degF] Dr. Ethan Avendano Work Phone: [facility] Work Phone: 09-10-2021 10:35-0500 Body weight 71.[address] Ethan Avendano Work Phone: [facility] Work Phone: 09-10-2021 10:35-0500 Diastolic blood pressure 65 mm[Hg] Dr. Ethan Avendano Work Phone: [facility] Work Phone: 09-10-2021 10:35-0500 Heart rate 56 /min Dr. Ethan Avendano Work Phone: [facility] Work Phone: 09-10-2021 10:35-0500 Respiratory rate 16 /min Dr. Ethan Avendano Work Phone: [facility] Work Phone: 09-10-2021 10:35-0500 SaO2% (BldA) [Mass fraction] 95 % Dr. Ethan Avendano Work Phone: [facility] Work Phone: 09-10-2021 10:35-0500 Systolic blood pressure 116 mm[Hg] Dr. Ethan Avendano Work Phone: [facility] Work Phone: 09-06-2021 08:47-0500 Body weight 72.[address] Ethan Avendano Work Phone: [facility] Work Phone: 09-06-2021 08:47-0500 Diastolic blood pressure 66 mm[Hg] Dr. Ethan Avendano Work Phone: [facility] Work Phone: 09-06-2021 08:47-0500 Heart rate 56 /min Dr. Ethan Avendano Work Phone: [facility] Work Phone: 09-06-2021 08:47-0500 Respiratory rate 18 /min Dr. Ethan Avendano Work Phone: [facility] Work Phone: 09-06-2021 08:47-0500 SaO2% (BldA) [Mass fraction] 100 % Dr. Ethan Avendano Work Phone: [facility] Work Phone: 09-06-2021 08:47-0500 Systolic blood pressure 150 mm[Hg] Dr. Ethan Avendano Work Phone: [facility] Work Phone: 02-16-2021 10:08-0400 Body mass index (BMI) [Ratio] 24.3 kg/m2 Dr. Ethan Avendano Work Phone: [facility] Work Phone: Encounters Encounter Date Encounter Type [...] ambulatory Dr. Ethan Avendano MD Work Phone: [facility] Work Phone: Start: 01-06-2025 End: 01-06-[address] Ethan Avendano MD Work Phone: [facility] Work Phone: Start: 01-06-2025 End: 01-06-2025 Discharged Recurring Sandra Joaquin PA -Physical Therapy Work Phone: Start: 01-02-2025 End: 01-02-[address] Ethan Avendano MD -Medical Out Work Phone: Start: 01-02-2025 End: 01-02-2025 ambulatory Ethan Avendano Facility:[facility] Start: 12-25-2024 End: 12-25-[address] Ethan Avendano MD -Laboratory, [place] Work Phone: Start: 12-25-2024 End: 12-25-2024 ambulatory Ethan Avendano Facility:[facility] Start: 12-19-2024 Registered Recurring Sandra Joaquin PA -Physical Therapy Work Phone: Start: 12-17-2024 End: 12-17-[address] Ethan Avendano MD Work Phone: [facility] Work Phone: Start: 12-17-2024 End: 12-17-[address] Demian Ramsay MD -Cardiovascular Services Work Phone: Start: 12-17-2024 End: 12-17-2024 ambulatory Ethan Avendano Facility:[facility] Start: 12-05-2024 End: 12-05-[address] Ethan Avendano MD -Medical Out Work Phone: Start: 12-05-2024 End: 12-05-[address] Ethan Avendano MD Work Phone: [facility] Work Phone: Start: 12-04-2024 Registered Recurring Sandra ALVAREZ -Physical Therapy Work Phone: Start: 11-28-2024 End: 11-28-[address] Demian Ramsay MD -[facility] Work Phone: Start: 11-28-2024 End: 11-28-2024 ambulatory Ethan Avendano Facility:[facility] Start: 11-07-2024 End: 11-07-[address] Ethan Avendano MD -Medical Out Work Phone: Start: 11-07-2024 End: 11-07-[address] Ethan Avendano MD Work Phone: [facility] Work Phone: Start: 10-29-2024 End: 10-29-[address] Ethan Avendano MD Work Phone: [facility] Work Phone: Start: 10-29-2024 End: 10-29-[address] [facility] Start: 10-29-2024 End: 10-29-2024 ambulatory Ethan Avendano Facility:[facility] Start: 10-10-2024 End: 10-10-[address] Ethan Avendano MD -Medical Out Work Phone: Start: 10-10-2024 End: 10-10-2024 ambulatory Ethan Avendano Facility:[facility] Start: 09-11-2024 End: 09-11-[address] Jameel Oseguera MD -Radiology, [facility] Work Phone: Start: 09-11-2024 End: 09-11-2024 ambulatory Ethan Avendano Facility:[facility] Start: 09-05-2024 End: 09-05-[address] Ethan Avendano MD -Medical Out Work Phone: Start: 09-05-2024 End: 09-05-2024 ambulatory Ethan Avendano Facility:[facility] Start: 08-23-2024 Non-patient / Non-visit Dr. Matilde Oseguera MD -[facility] Start: 08-23-2024 End: 08-23-2024 Admission to same day surgery center Dr. Jameel Oseguera MD -Endoscopy Work Phone: Start: 08-23-2024 End: 08-23-2024 ambulatory Ethan Avendano Facility:[facility] Start: 08-08-2024 End: 08-08-[address] Ethan Avendano MD -Medical Out Work Phone: Start: 08-08-2024 End: 08-08-2024 myke Avendano Facility:[facility] Start: 07-11-2024 End: 07-11-[address] Ethan Avendano MD -Medical Out Work Phone: Start: 07-11-2024 End: 07-11-2024 ambulatory Ethan Avendano Facility:[facility] Start: 07-10-2024 End: 07-10-2024 ambulatory Ethan Avendano Facility:[facility] Start: 06-06-2024 End: 06-06-2024 ambulatory Ethan Avendano Facility:[facility] Start: 05-09-2024 End: 05-09-2024 ambulatory Ethan Avendano Facility:[facility] Start: 04-05-2024 End: 04-05-2024 ambulatory Ethan Avendano Facility:[facility] Start: 03-28-2024 End: 03-28-2024 ambulatory Blaine Lee Facility:[facility] Start: 01-04-2024 End: 01-04-[address] Ethan Avendano Work Phone: [facility] Work Phone: Start: 01-04-2024 End: 01-04-[address] Ethan Avendano Work Phone: [facility]-Medical Out Work Phone: Start: 12-07-2023 End: 12-07-[address] Ethan Avendano Work Phone: [facility] Work Phone: Start: 12-07-2023 End: 12-07-[address] Ethan Avendano Work Phone: [facility]-Medical Out Work Phone: Start: 11-16-2023 End: 11-16-[address] Ethan Avendano Work Phone: [facility] Work Phone: Start: 11-16-2023 End: 11-16-[address] Ethan Avendano Work Phone: [facility] Start: 11-09-2023 End: 11-09-[address] Ethan Avendano Work Phone: [facility] Work Phone: Start: 11-09-2023 End: 11-09-[address] Ethan Avendano Work Phone: [facility]-Medical Out Work Phone: Start: 10-10-2023 End: 10-10-[address] Ethan Avendano Work Phone: [facility] Work Phone: Start: 10-06-2023 End: 10-06-2023 ambulatory FLORENCE EUGENE Facility:[id number] Start: 10-05-2023 End: 10-05-2023 ambulatory [facility] Work Phone: Start: 10-05-2023 End: 10-05-2023 [facility] Start: 09-07-2023 End: 09-07-2023 ambulatory [facility] Work Phone: Start: 09-07-2023 End: 09-07-2023 [facility] Start: 08-10-2023 End: 08-10-2023 [facility] Start: 07-06-2023 End: 07-06-[address] Ethan Avendano Work Phone: [facility] Work Phone: Start: 07-06-2023 End: 07-06-[address] [facility] Start: 06-08-2023 End: 06-08-[address] [facility] Start: 05-10-2023 End: 05-10-[address] Ethan Avendano Work Phone: [facility] Work Phone: Start: 05-10-2023 End: 05-10-[address] [facility] Start: 05-05-2023 Non-patient / Non-visit Dr. Abdulkadir Avendano Work Phone: [facility] Start: 05-05-2023 End: 05-05-[address] Ethan Avendano Work Phone: [facility] Work Phone: Start: 05-05-2023 End: 05-05-[address] Ethan Avendano Work Phone: [facility]-Cardiovascula r Services Work Phone: Start: 04-05-2023 End: 04-05-[address] Ethan Avendano Work Phone: [facility] Work Phone: Start: 04-05-2023 End: 04-05-[address] Ethan Avendano Work Phone: [facility]-Medical Out Work Phone: Start: 03-23-2023 End: 03-23-[address] Ethan Avendano Work Phone: [facility]-Laboratory Work Phone: Start: 03-08-2023 End: 03-08-[address] Ethan Avendano Work Phone: [facility] Work Phone: Start: 03-08-2023 End: 03-08-[address] Ethan Avendano Work Phone: [facility]-Medical Out Work Phone: Start: 02-03-2023 End: 02-03-[address] Ethan Avendano Work Phone: [facility] Work Phone: Start: 02-03-2023 End: 02-03-[address] Ethan Avendano Work Phone: [facility]-Medical Out Start: 02-01-2023 End: 02-01-[address] Ethan Avendano Work Phone: [facility] Work Phone: Start: 02-01-2023 End: 02-01-[address] Ethan Avendano Work Phone: [facility]-Laboratory Start: 02-01-2023 End: 02-01-[address] Ethan Avendano Work Phone: [facility] Start: 01-05-2023 End: 01-05-2023 ambulatory [facility] Work Phone: Start: 01-05-2023 End: 01-05-2023 Patient encounter procedure [facility]-Medical Out Start: 12-29-2022 End: 12-29-2022 ambulatory LACY GOLDBERG Facility:[facility] Start: 12-29-2022 End: 12-29-2022 Patient encounter procedure Latisha Robles MD Work Phone: Neurology Comment on above: Parkinson disease (H CC) (Primary Dx) Start: 12-08-2022 End: 12-08-2022 ambulatory [facility] Work Phone: Start: 12-08-2022 End: 12-08-2022 Patient encounter procedure [facility]-Medical Out Start: 11-16-2022 End: 11-16-2022 ambulatory [facility] Work Phone: Start: 11-16-2022 End: 11-16-2022 Discharged Recurring [facility]-Physical Therapy Start: 11-04-2022 End: 11-04-2022 Patient encounter procedure [facility]-Medical Out Start: 10-07-2022 End: 10-07-2022 ambulatory [facility] Work Phone: Start: 10-07-2022 End: 10-07-2022 Patient encounter procedure [facility]-Medical Out Start: 09-19-2022 End: 09-19-2022 ambulatory [facility] Work Phone: Start: 09-19-2022 End: 09-19-2022 Patient encounter procedure [facility]-MRI - [facility] Start: 09-09-2022 End: 09-09-2022 ambulatory [facility] Work Phone: Start: 09-09-2022 End: 09-09-2022 Patient encounter procedure [facility]-Medical Out Start: 08-24-2022 End: 08-24-2022 ambulatory [facility] Work Phone: Start: 08-24-2022 End: 08-24-2022 Patient encounter procedure [facility]-Laboratory, [place] Start: 08-16-2022 End: 08-16-2022 ambulatory Florence A Jeff OT/L [facility] Start: 08-16-2022 End: 08-16-2022 Coordination of care plan Florence A Jeff OT/L [facility] Comment on above: Parkinson disease (H CC) (Primary Dx); Abnormality of gait and mobility; Abnormal coordination; Irregular eye movements Start: 08-15-2022 End: 08-15-2022 ambulatory [facility] Work Phone: Start: 08-15-2022 End: 08-15-[address] Ethan Avendano Work Phone: [facility]-Laboratory, Specimen Start: 08-15-2022 End: 08-15-2022 ambulatory Florence [facility] Jeff [facility] Start: 08-15-2022 End: 08-15-2022 Coordination of care plan Florence A Jeff OT/L [facility] Comment on above: Parkinson disease (H CC) (Primary Dx); Abnormality of gait and mobility; Abnormal coordination; Irregular eye movements Start: 08-11-2022 End: 08-11-[address] Ethan Avendano Work Phone: [facility] Work Phone: Start: 08-11-2022 End: 08-11-[address] Ethan Avendano Work Phone: [facility] Start: 08-04-2022 End: 08-04-2022 ambulatory [facility] Work Phone: Start: 08-04-2022 End: 08-04-[address] Ethan Avendano Work Phone: [facility]-Medical Out Start: 07-15-2022 End: 07-15-[address] Ethna Avendano Work Phone: [facility] Work Phone: Start: 07-15-2022 End: 07-15-[address] Ethan Avendano Work Phone: [facility] Start: 07-08-2022 End: 07-08-[address] Ethan Avendano Work Phone: [facility] Work Phone: Start: 07-08-2022 End: 07-08-[address] [facility] Start: 07-07-2022 End: 07-07-[address] Ethan Avendano Work Phone: [facility] Start: 07-04-2022 End: 07-04-[address] Ethan Avendano Work Phone: [facility]-Speech Therapy Start: 07-04-[address] Ethan Avendano Work Phone: [facility]-Speech Therapy Start: 06-13-[address] Ethan Avendano Work Phone: [facility]-Speech Therapy Start: 06-10-2022 End: 06-10-[address] Ethan Avendano Work Phone: [facility]-Medical Out Start: 06-07-2022 End: 06-07-[address] Ethan Avendano Work Phone: [facility] Work Phone: Start: 06-07-2022 End: 06-07-[address] Ethan Avendano Work Phone: [facility] Start: 05-06-2022 End: 05-06-[address] Ethan Avendano Work Phone: [facility] Work Phone: Start: 05-06-2022 End: 05-06-[address] [facility] Start: 05-04-[address] Ethan Avendano Work Phone: [facility]-Speech Therapy Start: 04-20-2022 Non-patient / Non-visit Dr. Abdulkadir Avendano Work Phone: [facility] Start: 04-20-2022 End: 04-20-[address] Ethan Avendano Work Phone: [facility]-Cardiovascula r Services Start: 04-08-2022 End: 04-08-[address] [facility] Start: 03-16-2022 End: 03-16-[address] Ethan Avendano Work Phone: [facility] Start: 03-04-2022 End: 03-04-2022 [facility] Start: 02-04-2022 End: 02-04-2022 Patient encounter procedure [facility] Out Start: 01-07-2022 End: 01-07-2022 [facility] Start: 12-03-2021 End: 12-03-[address] [facility] Start: 12-02-2021 End: 12-02-[address] Ethan Avendano Work Phone: [facility] Start: 11-05-2021 End: 11-05-[address] [facility] Start: 10-08-2021 End: 10-08-[address] [facility] Start: 09-10-2021 End: 09-10-[address] [facility] Start: 09-06-2021 End: 09-06-[address] Ethan Avendano Work Phone: [facility] Start: 08-14-2017 Ambulatory Isaac [...] Radiologic exam abdo men 2 views Yasmin Barry MD Work Phone: Start: 03-16-2025 Ct abdomen [...] Dr. Demian Ramsay MD Comment on above: ABN-HDZ-Qnuuzj RCA w / 2.5 x 12 mm Elunir Stent and MILANA-Mid RCA w/ 3.0 x 33 mm Elunir Stent 03/11/19; PCI-MILANA- Mid LAD w/ 3.0 x 16 mm Synergy MR Stent 03/21/2019 Start: 09-26-2008 Colonoscopy Florence villanueva OT/L Plan of Treatment Date Care Activity Detail Author Start: 09-11-2029 DTaP/Tdap/Td Vaccine s (5 - Td or Tdap) DTaP/Tdap/Td Vaccines (5 - Td or Tdap) [facility] Start: 06-02-2027 Screening for malign ant neoplasm of colon [facility] Start: 06-25-2026 Urine microalbumin profile DTAP,TDAP,TD (4 - Td or Tdap) [facility] Start: 05-05-2025 Influenza vaccination Influenza Vacc ine (#1) [facility] Start: 04-09-2025 End: 04-09-2025 Patient encounter procedure 04/09/2025 10:15 AM EDT Office Visit [facility] Colorectal Surgery - [place] [address] [place] [address] Bronson Jarrett MD [address] [place], [place] [id number] [facility] Colorectal Surgery - [place] Start: 03-16-2025 [facility] Start: 01-02-2025 Iv infusion therapy prophylaxis/dx ea hour THER/PROPH/DIAG IV INF [facility] Start: 01-02-2025 Iv infusion therapy/prophylaxis /dx 1st to 1 hr THER/PROPH/DIAG IV INF [facility] Start: 12-05-2024 Iv infusion therapy prophylaxis/dx ea hour THER/PROPH/DIAG IV INF [facility] Start: 12-05-2024 Iv infusion therapy/prophylaxis /dx 1st to 1 hr THER/PROPH/DIAG IV INF [facility] Start: 10-10-2024 Iv infusion therapy prophylaxis/dx ea hour THER/PROPH/DIAG IV INF [facility] Start: 10-10-2024 Iv infusion therapy/prophylaxis /dx 1st to 1 hr THER/PROPH/DIAG IV INF [facility] Start: 08-23-2024 Patient discharge [facility] Start: 08-20-2024 COVID-19 Vaccine ( season) COVID-19 Vaccine ( season) [facility] Start: 12-07-2023 Iv infusion therapy prophylaxis/dx ea hour THER/PROPH/DIAG IV INF [facility] Start: 12-07-2023 Iv infusion therapy/prophylaxis /dx 1st to 1 hr THER/PROPH/DIAG IV INF [facility] Start: 09-07-2023 Iv infusion therapy prophylaxis/dx ea hour THER/PROPH/DIAG IV INF [facility] Start: 09-07-2023 Iv infusion therapy/prophylaxis /dx 1st to 1 hr THER/PROPH/DIAG IV INF [facility] Start: 05-10-2023 Iv infusion therapy prophylaxis/dx ea hour THER/PROPH/DIAG IV INF [facility] Start: 05-10-2023 Iv infusion therapy/prophylaxis /dx 1st to 1 hr THER/PROPH/DIAG IV INF [facility] Start: 04-05-2023 Iv infusion therapy prophylaxis/dx ea hour THER/PROPH/DIAG IV INF [facility] Start: 04-05-2023 Iv infusion therapy/prophylaxis /dx 1st to 1 hr THER/PROPH/DIAG IV INF [facility] Start: 03-08-2023 Iv infusion therapy prophylaxis/dx ea hour THER/PROPH/DIAG IV INF [facility] Start: 03-08-2023 Iv infusion therapy/prophylaxis /dx 1st to 1 hr THER/PROPH/DIAG IV INF [facility] Start: 02-03-2023 Iv infusion therapy prophylaxis/dx ea hour THER/PROPH/DIAG IV INF [facility] Start: 02-03-2023 Iv infusion therapy/prophylaxis /dx 1st to 1 hr THER/PROPH/DIAG IV INF [facility] Start: 01-05-2023 Iv infusion therapy prophylaxis/dx ea hour THER/PROPH/DIAG IV INF [facility] Start: 01-05-2023 Iv infusion therapy/prophylaxis /dx 1st to 1 hr THER/PROPH/DIAG IV INF [facility] Start: 12-08-2022 Iv infusion therapy prophylaxis/dx ea hour THER/PROPH/DIAG IV INF [facility] Start: 12-08-2022 Iv infusion therapy/prophylaxis /dx 1st to 1 hr THER/PROPH/DIAG IV INF [facility] Start: 11-04-2022 Iv infusion therapy prophylaxis/dx ea hour THER/PROPH/DIAG IV INF [facility] Start: 11-04-2022 Iv infusion therapy/prophylaxis /dx 1st to 1 hr THER/PROPH/DIAG IV INF [facility] Start: 10-07-2022 Iv infusion therapy prophylaxis/dx ea hour THER/PROPH/DIAG IV INF [facility] Start: 10-07-2022 Iv infusion therapy/prophylaxis /dx 1st to 1 hr THER/PROPH/DIAG IV INF [facility] Start: 09-09-2022 Iv infusion therapy prophylaxis/dx ea hour THER/PROPH/DIAG IV INF [facility] Start: 09-09-2022 Iv infusion therapy/prophylaxis /dx 1st to 1 hr THER/PROPH/DIAG IV INF [facility] Start: 09-04-2022 ADVANCE DIRECTIVE DISCUSSION ADVANCE DIRECTIVE DISCUSSION [facility] Start: 09-04-2022 DEPRESSION ASSESSMENT DEPRESSION ASS ESSMENT [facility] Start: 08-04-2022 Iv infusion therapy prophylaxis/dx ea hour THER/PROPH/DIAG IV INF [facility] Work Phone: Start: 08-04-2022 Iv infusion therapy/prophylaxis /dx 1st to 1 hr THER/PROPH/DIAG IV INF [facility] Work Phone: Start: 07-08-2022 Iv infusion therapy prophylaxis/dx ea hour THER/PROPH/DIAG IV INF [facility] Work Phone: Start: 07-08-2022 Iv infusion therapy/prophylaxis /dx 1st to 1 hr THER/PROPH/DIAG IV INF [facility] Work Phone: Start: 05-06-2022 Iv infusion therapy prophylaxis/dx ea hour THER/PROPH/DIAG IV INF [facility] Work Phone: Start: 05-06-2022 Iv infusion therapy/prophylaxis /dx 1st to 1 hr THER/PROPH/DIAG IV INF [facility] Work Phone: Start: 04-08-2022 Iv infusion therapy prophylaxis/dx ea hour THER/PROPH/DIAG IV INF [facility] Work Phone: Start: 04-08-2022 Iv infusion therapy/prophylaxis /dx 1st to 1 hr THER/PROPH/DIAG IV INF [facility] Work Phone: Start: 03-04-2022 Iv infusion therapy prophylaxis/dx ea hour THER/PROPH/DIAG IV INF [facility] Work Phone: Start: 03-04-2022 Iv infusion therapy/prophylaxis /dx 1st to 1 hr THER/PROPH/DIAG IV INF [facility] Work Phone: Start: 02-04-2022 Iv infusion therapy prophylaxis/dx ea hour THER/PROPH/DIAG IV INF [facility] Work Phone: Start: 02-04-2022 Iv infusion therapy/prophylaxis /dx 1st to 1 hr THER/PROPH/DIAG IV INF [facility] Work Phone: Start: 12-03-2021 Iv infusion therapy prophylaxis/dx ea hour THER/PROPH/DIAG IV INF [facility] Work Phone: Start: 12-03-2021 Iv infusion therapy/prophylaxis /dx 1st to 1 hr THER/PROPH/DIAG IV INF [facility] Work Phone: Start: 09-04-2021 ADVANCE DIRECTIVE DISCUSSION ADVANCE DIRECTIVE DISCUSSION [facility] Start: 09-04-2021 DEPRESSION ASSESSMENT DEPRESSION ASS ESSMENT [facility] Start: 06-23-2021 LIPID SCREEN LIPID SCREEN [facility] Start: 06-23-2019 DIABETES SCREEN DIABETES SCREEN [facility] Start: 06-13-2019 PNEUMOCOCCAL: 65+ (4 - PPSV23 if available, else PCV20) PNEUMOCOCCAL: 65+ (4 - PPSV23 if available, else PCV20) [facility] Start: 09-26-2018 Colonoscopy COLONOSCOPY [facility] Start: 09-26-2018 COLORECTAL CANCER SCREENING COLORECTAL CANCER SCREENING [facility] Start: 07-20-2014 FECAL OCCULT BLOOD FECAL OCCULT BLOO D [facility] Start: 1997 COLOGUARD (FIT-DNA) COLOGUARD (FIT-D NA) [facility] Start: [address] COLONOGRAPHY [facility] Start: [address] [facility] Start: 1971 SHINGRIX VACCINE (1 of 2) SHINGRIX VACCINE (1 of 2) [facility] Start: 1970 HEPATITIS C [facility] Start: 1970 Hepatitis C screening Hepatitis C [facility] Start: 1964 Depression Monitoring Depression Mon itoring [facility] Start: 1950 Lipid panel Lipid Panel [facility] Start: 1950 Medicare Annual Well ness (AWV) Medicare Annual Wellness (AWV) [facility] Start: 1950 Screening for malign ant neoplasm of colon [facility] Patient referral [facility] Work Phone: Tissue exam [facility] Sy stem Work Phone: Comment on above: Release Upon Jamesin g for 1 Occurrences starting 03/18/2025, 1 completed Carotid arteries [facility] Carotid arteries [facility] Immunizations Immunization Date Immunization Notes Care Provider Fa [facility] 06-25-2024 influenza virus vacc ine, unspecified formulation Bhanu Urbankola DO Work Phone: [facility] 12-09-2020 Covid (Moderna) Dr. Ethan Hagan Work Phone: [facility] 11-11-2020 Covid (Moderna) Dr. Ethan Hagan Work Phone: [facility] 06-25-2016 influenza, injectabl e, quadrivalent, contains preservative Florence Eugene OT/L [facility] 06-25-2016 tetanus toxoid, redu manas diphtheria toxoid, and acellular pertussis vaccine, adsorbed Florence Eugene OT/L [facility] 07-17-2015 pneumococcal conjuga te vaccine, 13 valent Florence Eugene OT/L [facility] Work Phone: 06-18-2015 influenza, high dose seasonal, preservative-free Florence Eugene OT/L [facility] 06-13-2014 influenza, seasonal, injectable Florence Eugene OT/L [facility] 06-13-2014 pneumococcal polysaccharide vaccine, 23 valent Florence Hopek OT/L [facility] 07-11-2013 influenza virus vacc ine, unspecified formulation Florence Hopek OT/L [facility] 07-14-2009 novel influenza-H1N1 -09, all formulations Florence Hopek OT/L [facility] Work Phone: 05-04-2007 pneumococcal polysaccharide vaccine, 23 valent Florence Sainzinik OT/L [facility] Work Phone: 05-04-2007 tetanus toxoid, redu manas diphtheria toxoid, and acellular pertussis vaccine, adsorbed Florence Hopek OT/L [facility] Work Phone: 05-04-1994 diphtheria and tetan us toxoids, adsorbed for pediatric use Florence Hopek OT/L [facility] Work Phone: Payers Date Payer Category Payer Medicare supplementa l policy (as second payer) [facility] MEDICARE SUPPLEMENT [id number] 2024 Self-pay [id number] 2022 Unknown [facility] MEDICARE SUPPLEMENT [id number] 2022-Present [phone] [address] [place] [address] Indemnity [id number] 2022 Unknown [id number] 2017 Medicare [id number] 2017 Medicare [id number] Medicare [id number] Unknown [id number] .462 Unknown [id number] 2.16.840.1.821705.3.579.2 .462 Unknown [id number] 2.16.840.1.385005.3.579.2 .462 Unknown [id number] 2.16.840.1.308763.3.579.2 .462 Unknown [id number] 2.16.840.1.539827.3.579.2 .462 Unknown [id number] 2.16.840.1.392681.3.579.2 .462 Unknown [id number] 2.16.840.1.325908.3.579.2 .462 Unknown [id number] 2.16.840.1.061490.3.579.2 .462 Unknown [id number] 2.16.840.1.605797.3.579.2 .462 Unknown [id number] 2.16.840.1.334329.3.579.2 .462 Unknown [id number] 2.16.840.1.898480.3.579.2 .462 Unknown [id number] 2.16.840.1.273971.3.579.2 .462 Unknown [id number] 2.16.840.1.304108.3.579.2 .462 Unknown [id number] 2.16.840.1.326610.3.579.2 .462 Unknown [id number] 2.16.840.1.663452.3.579.2 .462 Unknown [id number] 2.16.840.1.713932.3.579.2 .462 Unknown [id number] 2.840.1.622965.3.579.2 .462 Unknown [id number] 2.16840.1.537441.3.579.2 .462 Unknown [id number] 2.16840.1.937783.3.579.2 .462 Unknown [id number] 2.16840.1.279965.3.579.2 .462 Unknown [id number] 2.16840.1.688895.3.579.2 .462 Unknown [id number] 2.840.1.910446.3.579.2 .462 Unknown [id number] 2.0.1.985293.3.579.2 .462 Social History Date Type Detail Facility Start: 09-06-2021 End: 10-10-2023 Tobacco smoking status NHIS Unknown if ever smoked [facility] Start: 12-12-2020 Spouse/ Significant Other [facility] Start: 12-24-2020 Non-smoker [facility] Start: 1950 Sex Assigned At Male [facility] Start: 08-27-2021 End: 03-15-2025 Tobacco smoking status NHIS Never smoked tobacco [facility] Start: 08-27-2021 End: 12-29-2022 Tobacco use and exposure Smokeless tobacco non-user [facility] Start: 04-20-2022 End: 12-29-2022 Alcohol intake Current non-drinker of alcohol (finding) [facility] Start: 1950 Sex Assigned At Not on file [facility] Start: 11-08-2024 End: 03-16-2025 Sex Male (finding) [facility] Start: 03-16-2025 History of Social function [facility] Start: 03-16-2025 Alcohol Use Disorder Identification Test - Consumption [AUDIT-C] [facility] How often to you hav e a drink containing alcohol? Never [facility] How many standard dr inks containing alcohol do you have on a typical day? Patient does not drink [facility] Goals Date Patient Goal Desired Activity /State Functional Status Date Assessment Result Facility 07-13-2025 Total score [AUDIT-C] 0 07/13/20 25 6:27 AM EDT Martha Park, JOSÉ LUIS [facility] Mental Status Date Assessment Result Facility 03-05-2025 Cognitive function Voice/Name [facility] Work Phone: 02-05-2025 Cognitive function Voice/Name [facility] Work Phone: 01-02-2025 Cognitive function Voice/Name [facility] Work Phone: 12-05-2024 Cognitive function Awake;Alert;A ppropriate;Follow s Commands [facility] Work Phone: 11-07-2024 Cognitive function Voice/Name [facility] Work Phone: 10-10-2024 Cognitive function Voice/Name [facility] Work Phone: 09-05-2024 Cognitive function Voice/Name [facility] Work Phone: 08-23-2024 Cognitive function Level Of Cons ciousness Follows Commands;Drowsy [facility] Work Phone: 08-23-2024 Cognitive function Voice/Name [facility] Work Phone: 07-11-2024 Cognitive function Awake;Alert;A ppropriate;Follow s Commands [facility] Work Phone: 01-04-2024 Cognitive function Awake;Alert;A ppropriate;Follow s Commands [facility] Work Phone: 12-07-2023 Cognitive function Awake;Alert;A ppropriate;Follow s Commands [facility] Work Phone: 11-09-2023 Cognitive function Awake;Alert;A ppropriate;Follow s Commands [facility] Work Phone: 10-05-2023 Cognitive function Awake;Alert;A ppropriate;Follow s Commands [facility] Work Phone: 09-07-2023 Cognitive function Awake;Alert;A ppropriate;Follow s Commands [facility] Work Phone: 08-10-2023 Cognitive function Voice/Name [facility] Work Phone: 07-06-2023 Cognitive function Voice/Name [facility] Work Phone: 06-08-2023 Cognitive function Awake;Alert;A ppropriate;Follow s Commands [facility] Work Phone: 05-10-2023 Cognitive function Voice/Name [facility] Work Phone: 04-05-2023 Cognitive function Voice/Name [facility] Work Phone: 03-08-2023 Cognitive function Voice/Name [facility] Work Phone: 02-03-2023 Cognitive function Awake;Alert;A ppropriate;Follow s Commands [facility] Work Phone: 01-05-2023 Cognitive function Voice/Name [facility] Work Phone: 12-08-2022 Cognitive function Voice/Name [facility] Work Phone: 11-04-2022 Cognitive function Voice/Name [facility] Work Phone: 10-07-2022 Cognitive function Awake;Alert;A ppropriate;Follow s Commands [facility] Work Phone: 08-04-2022 Cognitive function Voice/Name [facility] Work Phone: 07-08-2022 Cognitive function Voice/Name [facility] Work Phone: 06-10-2022 Cognitive function Voice/Name [facility] Work Phone: 05-06-2022 Cognitive function Level Of Cons ciousness Awake;Alert;Appropriate;Follow s Commands [facility] Work Phone: 04-08-2022 Cognitive function Level Of Cons ciousness Awake;Alert;Appropriate;Follow s Commands [facility] Work Phone: 03-04-2022 Cognitive function Voice/Name [facility] Work Phone: 02-04-2022 Cognitive function Awake;Alert;A ppropriate;Follow s Commands [facility] Work Phone: 01-07-2022 Cognitive function Awake;Alert;A ppropriate;Follow s Commands [facility] Work Phone: 12-03-2021 Cognitive function Awake;Alert;A ppropriate;Follow s Commands [facility] Work Phone: 11-05-2021 Cognitive function Awake;Alert;A ppropriate;Follow s Commands [facility] Work Phone: 10-08-2021 Cognitive function Level Of Cons ciousness Awake;Alert;Appropriate;Follow s Commands [facility] Work Phone: 09-10-2021 Cognitive function Awake;Alert;A ppropriate;Follow s Commands [facility] Work Phone: Clinical Notes 07-11-2013 to 03-21-2025 [...] injury from restraints (Restraint for Interference with Sports Complex Attendant) Outcome: Progressing Goal: Free from restraint(s) (Restraint for Interference with Sports Complex Attendant) Outcome: Progressing Problem: Problem Interventions Goal: Assess Nutritional Intake Outcome: Progressing provided patient and with [facility] [employer]. Street card has resources such as transportation, food, utilities etc. Problem: Safety - Non-violent/Interference with Medical Treatment Restraint Goal: Remains free of injury from restraints (Restraint for Interference with Sports Complex Attendant) Outcome: Progressing Goal: Free from restraint(s) (Restraint for Interference with Sports Complex Attendant) Outcome: Progressing Problem: Problem Interventions Goal: Assess Nutritional Intake Outcome: Progressing DME order for FWW placed with Elliot from [facility]. Educated patient and on Home Care and services available. Patient is agreeable to receiving home care services at this time. Patient was given choice of home care agencies available in the area and is agreeable to having referrals made with agencies that staff the patients service location. Referrals have been sent via [employer] Spoke with pts regarding all accepting agencies. [facility] Care is [facility]. Agency notified via [employer] Patient Choice Patient Name: FRANCISCO RAMOS Date of : 1950 All Providers Sent Referral Name: [facility] (For [facility] Facilities Only) Phone: [phone] Address: [address] [place] [address] Name: [facility] Phone: [phone] Address: [address] [address] Name: [facility] Phone: [phone] Address: [facility] [address] [address] Name: [facility] Address: [address] [place] [address] Name: [facility] Phone: [phone] Address: [address] [place] [address] Name: [facility] [place] Phone: [phone] Address: [address] [place] [address] Name: [facility] Phone: [phone] Address: [address] [place] [address] Name: [facility] [place] Phone: [phone] Address: [address] [place] [address] Name: [place] [facility] Phone: [phone] Address: [address] [place] [address] Name: [facility] [place] Phone: [phone] Address: [address] [facility] [address] [place] [address] Name: [facility] Address: [address] [place] [address] Name: [facility] Address: [address] [facility] [address] [place] [address] Name: [facility] Phone: [phone] Address: [address] [place] [address] Name: [facility] Phone: [phone] Address: [address] [place] [address] Name: [facility] Address: [address] [place] [address] Name: [facility] Address: [address] [place] [address] Name: [facility] Phone: [phone] Address: [address] [place] [address] Name: [facility] Address: [address] [facility] [address] [place] [address] Name: [facility] Address: [address] [facility] [address] [place] [address] Name: [facility] Phone: [phone] Address: [address] [facility] [address] [place] [address] Name: [facility] Off[facility]) Phone: [phone] Address: [address] [place] [address] Name: [facility] Address: [address] [facility] [address] [place] [address] Name: [facility] Phone: [phone] Address: [address] [place] [address] Care Management Progress Note Short Medical why still here: Patient remains on H6 s/p Lap sigmoidectomy 03/18/2025 Planned Discharge Disposition: Home Health Services Active discharge order noted. TCC working with home care and social service assistant for home going. Barriers/Today we still Wait: coordinating home going with spouse Length of Stay (Days): 5 GMLOS: 4.9 Problem: Safety - Non-violent/Interference with Medical Treatment Restraint Goal: Remains free of injury from restraints (Restraint for Interference with Sports Complex Attendant) Outcome: Progressing Goal: Free from restraint(s) (Restraint for Interference with Sports Complex Attendant) Outcome: Progressing Due to patients history with violence against staff and code debo [facility] is unable to accept patient at this time. Referrals sent to other agencies to see if they are able to accept. [employer] following case for Discharge Needs. Patient requested [...] week. [place] agreeable to speak with social service assistant. [facility] secure message social service assistant to see patient. Problem: Safety - Non-violent/Interference with Medical Treatment Restraint Goal: Remains free of injury from restraints (Restraint for Interference with Sports Complex Attendant) Outcome: Progressing Goal: Free from restraint(s) (Restraint for Interference with Sports Complex Attendant) Outcome: Progressing Problem: Problem Interventions Goal: Assess [...] injury from restraints (Restraint for Interference with Sports Complex Attendant) Outcome: Progressing Goal: Free from restraint(s) (Restraint for Interference with Sports Complex Attendant) Outcome: Progressing Problem: Safety - Non-violent/Interference with Medical Treatment Restraint Goal: Remains free of injury from restraints (Restraint for Interference with Sports Complex Attendant) Outcome: Progressing Goal: Free from restraint(s) (Restraint for Interference with Sports Complex Attendant) Outcome: Progressing Report called to H6 [employer] Called and updated pt at this time OPERATIVE NOTE PATIENT NAME: Francisco Ramos : 1950 ATTENDING PHYSICIAN: Bronson Jarrett MD PROCEDURE DATE: 03/18/2025 PREOPERATIVE DIAGNOSIS: Sigmoid volvulus POSTOPERATIVE DIAGNOSIS: Same SURGEON: Bronson Jarrett MD DIVISION SERVICE MANAGER: Yasmin Barry OPERATION: Laparoscopic sigmoid colectomy ANESTHESIA: [...] was opened up. We then created our [place] rectal anastomosis. We had to complete anastomotic [...] Tissue TISSUE EXAM Bronson Jarrett MD 03/18/25 [id number] Routine Description: SIGMOID COLON Staff: Glue Reel Operator: Joseph Ibarra RN; Nika Schuster, JOSÉ LUIS Relief Glue Reel Operator: Gini Awan RN; Cecilia Tinajero Relief Scrub: [...] with staff and PT recs for [facility], but will wait to discuss possible home care services with pt/[place] to [place]. [employer] following case for Discharge Needs. Problem: Safety - Non-violent/Interference with Medical Treatment Restraint Goal: Remains free of injury from restraints (Restraint for Interference with Sports Complex Attendant) Outcome: Progressing Goal: Free from restraint(s) (Restraint for Interference with Sports Complex Attendant) Outcome: Progressing Care Management Progress Note Short [...] No GMLOS Documented documented in this encounter [facility] 03-21-2025 Note Problem: Safety - Non-violent/Interference with Medical Treatment Restraint Goal: Remains free of injury from restraints (Restraint for Interference with Sports Complex Attendant) Outcome: Progressing Goal: Free from restraint(s) (Restraint for Interference with Sports Complex Attendant) Outcome: Progressing Problem: Problem Interventions Goal: Assess Nutritional Intake Outcome: Progressing [facility] 03-21-2025 Plan of care note Problem: Safety - Non-violent/Interference with Medical Treatment Restraint Goal: Remains free of injury from restraints (Restraint for Interference with Sports Complex Attendant) Outcome: Progressing Goal: Free from restraint(s) (Restraint for Interference with Sports Complex Attendant) Outcome: Progressing Problem: Problem Interventions Goal: Assess Nutritional Intake Outcome: Progressing [facility] 03-21-2025 Note Formatting of this n ote might be different from the original. ADRIENNE provided patient and with [employer].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 for questions and acknowledgement of understanding. [facility] 03-18-2025 Note Airway Date/Time: 03/18/2025 4:48 PM Reason: scheduled Airway not difficult General Information and Staff Patient location during procedure: Procedural Resident/ELECTROCARDIOGRAPH TECHNICIAN: GINO Iqbal CRNA Performed: ELECTROCARDIOGRAPH TECHNICIAN Patient Condition Indications for airway management: anesthesia [...] BVM Number of attempts at approach: 1 [facility] 03-18-2025 Note Peripheral Block Time Out: 03/18/2025 4:49 PM Patient location during procedure: Procedural Start time: 03/18/2025 4:50 PM End time: 03/18/2025 4:54 PM Reason for block: at surgeon's request and post-op pain management Staffing Performed: [place] Resident/ELECTROCARDIOGRAPH TECHNICIAN: GINO Eng CRNA Preanesthetic Checklist Completed: patient [...] supine Prep: ChloraPrep Patient monitoring: heart rate, campus monitor, continuous pulse ox and continuous capnometry O2: [...] plane. and Local anesthetic injected without difficultyMedications dgwITHXJzxbyc-mesfotlvdvr-vfdswp hrine (TAP) syringe - Injection 60 mL - 03/18/2025 4:50:00 PM [facility] 03-18-2025 Procedure note OPERATIVE NOTE PATIENT NAME: Francisco Ramos : 1950 ATTENDING PHYSICIAN: Bronson Jarrett MD PROCEDURE DATE: 03/18/2025 PREOPERATIVE DIAGNOSIS: Sigmoid volvulus POSTOPERATIVE DIAGNOSIS: Same SURGEON: Bronson Jarrett MD DIVISION SERVICE MANAGER: Yasmin Barry OPERATION: Laparoscopic sigmoid colectomy ANESTHESIA: [...] was opened up. We then created our [place] rectal anastomosis. We had to complete anastomotic [...] transferred to the PACU in stable condition. [facility] 03-18-2025 Procedure note Date: 03/18/2025 Location: [facility] [...] Tissue TISSUE EXAM Bronson Jarrett MD 03/18/25 762 Routine Description: SIGMOID COLON Staff: Glue Reel Operator: Joseph Ibarra RN; Nika Schuster RN Relief Glue Reel Operator: Gini Awan RN; Cecilia Tinajero Relief Scrub: [...] Jarrett MD at 03/21/2025 12:18 PM EDT [facility] 03-18-2025 Nurse Note Verified with patients that pt. Had jello and lemon ice yesterday for lunch. [facility] 03-18-2025 Note Patient: Francisco Ramos Procedure Information Date/Time: 03/18/25 1635 Procedure: LAPAROSCOPIC, COLECTOMY, SIGMOID, POSSIBLE OPEN, POSSIBLE OSTOMY CREATION (Abdomen) Location: [facility] OR Operating Room Surgeons: Bronson Jarrett MD [...] Requests [1] No family history on file. [facility] 03-18-2025 Note OCCUPATIONAL THERAPY [facility] Initial Evaluation Name/MRN: Francisco Ramos ([id number]) Evaluation Date: 03/18/2025 Date of : 1950 Admission Date: 03/16/2025 6:13 AM Age: 74 y.o. Room/Bed: [facility] A Discharge Recommendation: 24 hour supervision [...] in bed, agreeable to OT. Pt with business risk consultant present. Pain: Pt denies any current pain. Past Medical History: Medical History[1] Past Surgical History: Surgical History[2] Admission Diagnosis: Patient Active Problem List Diagnosis Date Noted Sigmoid volvulus ([facility] ([facility]) 03/16/2025 Medical Precautions: No active isolations Proper [...] Responsibilities: Independent Receives Help From: Spouse Active Director Airport Operations: No Prior Level of Function Prior Level [...] BSC between bathroom and bed. Assist from LABEL PRINTING MACHINIST for cleanup and pt safety. Device(s) used: Used therapist for support AM-PAC AM-PAC Inpatient Daily Activity Raw Score: 15 ADL Inpatient CMS G-Code Modifier: CK Plan Pt would benefit from skilled acute OT services to address Strengthening, ROM, Gait Training, Balance Training, Self-Care/ADL Training, Functional Mobility Training, Endurance Training, Safety Edu (more content not included)... [facility] 03-18-2025 Note Formatting of this n ote might be different from the original. Spoke with TCC regarding pt combative behavior with staff and PT recs for [facility], but will wait to discuss possible home care services with pt/family until closer to dc. Product Manager E Commerce following case for Discharge Needs. [facility] 03-18-2025 Note Formatting of this n ote might be different from the original. Spoke with TCC regarding pt combative behavior with staff and PT recs for [facility], but will wait to discuss possible home care services with pt/family until closer to dc. Product Manager E Commerce following case for Discharge Needs. [facility] 03-18-2025 Note Department of [facility] l Surgery Daily Progress Note ADMIT DATE: [...] This note may have been dictated using Mailbox Medical Practice Edition 2.6 and/or [employer]BeeBaby Voice Recognition Feature. The document was proofread; however, unrecognized voice recognition strapping machine tender errors may be present. Attending Supervising Physician's [...] HYDROmorphone, naloxone, on (more content not included)... [facility] 03-18-2025 Note Problem: Safety - Non-violent/Interference with Medical Treatment Restraint Goal: Remains free of injury from restraints (Restraint for Interference with Sports Complex Attendant) Outcome: Progressing Goal: Free from restraint(s) (Restraint for Interference with Sports Complex Attendant) Outcome: Progressing [facility] 03-18-2025 Plan of care note Problem: Safety - Non-violent/Interference with Medical Treatment Restraint Goal: Remains free of injury from restraints (Restraint for Interference with Sports Complex Attendant) Outcome: Progressing Goal: Free from restraint(s) (Restraint for Interference with Sports Complex Attendant) Outcome: Progressing [facility] 03-17-2025 Note Formatting of this n ote [...] Stay (Days): 1 GMLOS: No GMLOS Documented [facility] 03-17-2025 Note Formatting of this [...] Stay (Days): 1 GMLOS: No GMLOS Documented [facility] 03-17-2025 Note Care Management Prog [...] Stay (Days): 1 GMLOS: No GMLOS Documented [facility] 03-17-2025 Note PHYSICAL THERAPY [facility] Initial Evaluation Name/MRN: Francisco Ramos ([id number]) Evaluation Date: 03/17/2025 Date of : 1950 Admission Date: 03/16/2025 6:13 AM Age: 74 y.o. Room/Bed: [facility] A Discharge Recommendation: 24 hour supervision or assist, Home with Home health PT Equipment Needed: No Assessment IMPRESSION: Patient presents status post proctoscopy and rectal tube placement on 03/16 following transfer from [place] on 03/16 for twisted colon and abdominal [...] Problem List Diagnosis Date Noted Sigmoid volvulus ([facility] ([facility]) 03/16/2025 Medical Precautions: No active isolations Proper [...] nearby if additional assistance is needed Active Director Airport Operations: N/A Prior Level of Function Prior Level [...] correcting path deviations, (more content not included)... [facility] 03-17-2025 Note Department of [facility] Surgery Daily Progress Note ADMIT DATE: 03/16/2025 [...] This note may have been dictated using PetLove Practice Edition 2.6 and/or [employer]BeeBaby Voice Recognition Feature. The document was proofread; however, unrecognized voice recognition strapping machine tender errors may be present. Attending Supervising Physician's [...] chloride (PF) 0.9 (more content not included)... [facility] 03-16-2025 Nurse Note Around 1829 patient chair [...] out as well. Nikki Aguilar RN supervisor bakery sanitation was notified of the incident. [facility] 03-16-2025 Note Procedure: Rectal ex [...] Stacy Burroughs MD General Surgery Resident, PGY-1 [facility] 03-16-2025 Emergency department Note Received report from JOSÉ LUIS Mujica [facility] 03-16-2025 Emergency department Note Received report from JOSÉ LUIS Mujica EMERGENCY DEPARTMENT ENCOUNTER Pt Name: Francisco Ramos Birthdate 1950 Date of evaluation: 03/16/2025 ED Provider: Jameel Barraza DO CHIEF COMPLAINT Chief Complaint Patient presents with Abdominal Pain Transfer from [facility] for Colonoscopy due to a twisted [...] the emergency department by ED transfer from [facility] ED for abd pain. Workup [place] revealed sigmoid volvulus. Pt unable to remember [...] findings was made to JAMEEL BARRAZA via HomeStay Secure Chat on 03/16/2025 8:35 AM EDT. [...] abdominal pain for one day. Transferred from [facility] ED for sigmoid volvulus. Pt currently [...] (HCC) External records reviewed: External ED note [facility] Diagnostics interpreted by me: Discussions with other clinicians: Pick Up And Delivery Driver Surgery Resident Chronic conditions impacting care: Social [...] 75 mL (75 mL IntraVENous Given 03/16/25 2573) Prescription drugs considered: PROCEDURES: Unless otherwise noted [...] in the lower abdomen. Was seen at [facility] initially and there he underwent CT [...] for clarification.) Bhanu Hunter DO Acute Care [facility] Bhanu Hunter DO 03/16/25 1545 documented in this encounter [facility] 03-16-2025 History and physical note Images from the original note were not included. Department of General Surgery Surgical Service - CRS Resident Consult Note 03/16/2025 CHIEF COMPLAINT: Chief Complaint Patient presents with Abdominal Pain Transfer from [facility] for Colonoscopy due to a twisted [...] non-operative,y who presents as a transfer from [place] for abdominal distention and pain. Surgery was consulted for evaluation of sigmoid volvulus. Patient states he had been at [place] for his presenting symptoms. There, he had [...] This note may have been dictated using Mailbox Medical Practice Edition 2.6 and/or [employer]BeeBaby Voice Recognition Feature. The document was proofread; however, unrecognized voice recognition strapping machine tender errors may be present. Attending Supervising Physician's [...] file. [facility] 03-16-2025 Note Department of [facility] Surgery Surgical Service - CRS Resident Consult Note 03/16/2025 CHIEF COMPLAINT: Chief Complaint Patient presents with Abdominal Pain Transfer from [facility] for Colonoscopy due to a twisted [...] non-operative,y who presents as a transfer from [place] for abdominal distention and pain. Surgery was consulted for evaluation of sigmoid volvulus. Patient states he had been at [place] for his presenting symptoms. There, he had [...] episode. - Will plan for admission to [facility] - NPO, mIVF - Rectal exam, rigid [...] This note may have been dictated using Mailbox Medical Practice Edition 2.6 and/or [employer]BeeBaby Voice Recognition Feature. The document was proofread; however, unrecognized voice recognition strapping machine tender errors may be present. Attending Supervising Physician's [...] status: [5] No family history on file. [facility] 03-16-2025 History and physical note Images from the original note were not included. Department of General Surgery Surgical Service - CRS Resident Consult Note 03/16/2025 CHIEF COMPLAINT: Chief Complaint Patient presents with Abdominal Pain Transfer from [facility] for Colonoscopy due to a twisted [...] non-operative,y who presents as a transfer from [place] for abdominal distention and pain. Surgery was consulted for evaluation of sigmoid volvulus. Patient states he had been at [place] for his presenting symptoms. There, he had [...] Surgery PGY-4 03/16/25 6:50 AM Pager # [phone] This note may have been dictated using PetLove Practice Edition 2.6 and/or [employer]ee[employer] Voice Recognition Feature. The document was proofread; however, unrecognized voice recognition strapping machine tender errors may be present. Attending Supervising Physician's [...] history on file. documented in this encounter [facility] 03-16-2025 Note Emergency Department Encounter [facility] SURGICAL [...] in the lower abdomen. Was seen at [facility] initially and there he underwent CT [...] for clarification.) Bhanu Hunter DO Acute Care [facility] Bhanu Hunter DO 03/16/25 1545 [facility] 03-16-2025 Physician Emergency department Note EMERGENCY DEPARTMENT ENCOUNTER Pt Name: Francisco Ramos Birthdate 1950 Date of evaluation: 03/16/2025 ED Provider: Jameel Barraza DO CHIEF COMPLAINT Chief Complaint Patient presents with Abdominal Pain Transfer from [facility] for Colonoscopy due to a twisted [...] the emergency department by ED transfer from [facility] ED for abd pain. Workup [place] revealed sigmoid volvulus. Pt unable to remember [...] findings was made to JAMEEL BARRAZA via HomeStay Secure Chat on 03/16/2025 8:35 AM EDT. [...] abdominal pain for one day. Transferred from [facility] ED for sigmoid volvulus. Pt currently [...] (HCC) External records reviewed: External ED note [facility] Diagnostics interpreted by me: Discussions with other clinicians: Pick Up And Delivery Driver Surgery Resident Chronic conditions impacting care: Social [...] Hunter DO at 03/16/2025 3:36 PM EDT [employer] Phone: 03-16-2025 Physician Emergency department Note Emergency [...] in the lower abdomen. Was seen at [facility] initially and there he underwent CT [...] [employer] Bhanu Hunter DO 03/16/25 0191 [facility] 03-16-2025 Radiology Diagnostic study note [facility] Imaging Services [address] [place] [address] [id number] Abdomen/Pelvis W IV Cont ONLY MR#: [id number] Acct: [id number] Name: FRANCISCO RAMOS Rep #: [id number] : 1950 M 74 From: Charmaine Tejeda MD PCP: Dr. Ethan Avendano MD Status: REG ER Study:Abdomen/Pelvis W IV Cont ONLY Date of E xam: 03/15/25 Exam# [id number] Ordering Dr: Brijesh Mathew DO PROCEDURE: ABDOMEN/PELVIS [...] if not recently performed. 3. Mild splenomegaly. [place] Alert: Sigmoid volvulus The critical information above was relayed directly by me by telephone to Brijesh Frederick on 03/15/2025 at 11:58 pm with readback verification. Reading Location: [id number] CC: Dr. Brijesh Frederick, DO; Dr. Ethan Avendano MD ~ Truck Body Builder Apprentice: Signed [facility] 01-06-2025 Discharge summary Note Date/Time January 06, 2025 7:00pm [facility] Physical Therapy [facility] 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 He was on the [...] please feel free to call me at [phone]. Thank you for the referral of thispatient. Sincerely, VANDA Shultz Balance/Gait/Functional tests Balance/Special Test Scores Functional Gait Assessment Score: 25 % Disability: 16.6700 CATSIB Score (Max score 120 seconds): 120 Lower Extremity Functional Score: 44 Improvement % Improvement: 15 <Electronically signed by Mojgan Gonzalez MPT> 01/06/25 1506 CC: Dr. Ethan Avendano MD; KIM Mendenhall ~ Signed [facility] Work Phone: 1(234) 803-905005-05-2025 Discharge summary [facility] Physical Therapy [facility] [address] [place] [address]. 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 He was on the [...] please feel free to call me at [phone]. Thank you for the referral of thispatient. Sincerely, Mojgan Gonzalez, MPT Balance/Gait/Functional tests Balance/Special Test Scores Functional Gait Assessment Score: 25 % Disability: 16.6700 CATSIB Score (Max score 120 seconds): 120 Lower Extremity Functional Score: 44 Improvement % Improvement: 15 01/06/25 1506 CC: Dr. Ethan Avendano MD; KIM Mendenhall ~ Signed [facility]03-27-2025 Evaluation note* Diagnosis Onset Date Resolution Status Admit Date Carotid bruit acute November 28, 2024 10:49am History of coronary artery stent placement March 21, 2019 chronic November 28, 2024 10:49am Hyperlipidemia chronic November 10:49am [facility] Work Phone: 1(308) 231-811912-20-2024 [facility] Medical Records Department [address] [place] [address] History Physical Exam 08/23/24 0806 MR#: [id number] Acct: [id number] Name: FRANCISCO RAMOS Rep #: [id number] : 1950 74 From: Jameel Oseguera MD PCP: Dr. Ethan Avendano MD Status:[facility] Location: [place] [address] History and Physical Date of Admission: 08/23/24 [...] History immune glob,gamma(IgG) 10 20 g .Route .o0cyxjk 03/04/19 07/10/24 History zeyw-yzt-xemb-IgA 0 to 50 mcg/mL IV solution nitroglycerin [...] chest CT Atherosclerosis of coronary artery of [place] heart without angina pectoris Basal cell carcinoma [...] weakness, No frequent fa (more content not included)...[facility]02-02-2024 NoteHNO ID: [id number] Author: FLORENCE EUGENE OT/L Service: ? 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 Francisco will volunteer to assist currently but his did indicate that options for alternatives if needed. Functional Limitations: heavy exertion Prior Level of Function: Independent with restrictions Home Environment Patient Lives With: Spouse Assistance Available: PRN Home Type: Multi-Level Transportation: [employer] ([employer] Patient Goals: to continue to drive if [...] / Interests: works on getting old steel mapp2linktive running again 1x/week in [place] with others which he has been doing for the past several years while has decreased frequency to usually 3x/month or less Home Environment Patient Lives With: Spouse Assistance Available: PRN Home Type: Multi-Level Transportation: [employer] ([employer] Pain Level: 0 Post Treatment Pain Level: No Change Activities of Daily Living: Modified Independent Instrumental Activities of Daily Living: he assists with some of the household tasks while 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 home decorator; he does do his own medications and indicated that he is supposed to be taking his Parkinsons medications 4x/day but sometimes is not as consistent about 2 middle of the day doses although is trying to be more consistent (suggested could use cellphone alarms as reminder) Driving History: 57 years while will also drive the 2020 [employer] Prius they have; still willing to ride as passenger with him which she did today State: [place] License/Permit #: [id number] Expires: 03/25/26 Restrictions: none but does wear [...] Level of Function Relev (more content not included)...[facility] 12-29-2022 NoteHNO ID: [id number] Author: Latisha Robles MD Service: ? Author [...] last fall. torn rotator cuff. 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 torn rotator cuff. 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 Rapid alternating movement normal.Left: Jmdcgt-yn-bils normal. Rapid alternating movement normal. Movement Disorders [...] 1 1 1 Level of service : 88320 (60-74) min). Time spent 67 min on the day of service, which included preparing to see the patient, [id number]-pr-[id number] patient care, completing clinical documentation, performing amedically appropriate examination, and counseling and educating the patient/family/caregiver. Thank you for allowing me to be part of the clinical care of this patient! I look forward to continued participation in the patient s care with you. Please do not hesitate to call with any questions. Sincerely, Latisha Robles MD documented in this encounterMer[facility]04-27-2023 Instructions* Patient Instructions* Latisha Robles MD [...] or you can send a message through [employer]. You can also now schedule and select appointments through [employer]. Latisha Robles MD documented in this encounterMercy Health Tiffin [facility]03-15-2023 Discharge summary Author Mariaa Pinzon [facility] November 16, 2022 8:38am Note Date/Time November 16, 2022 8:3 8am [facility] Physical Therapy [facility] [address] [place] [address] / REHABILITATION SERVICES DISCHARGE SUMMARY MR#: [id number] Acct: [id number] Name: FRANCISCO RAMOS Rep #: [id number] : 1950 72 From: Mariaa CARROLL T Referring Dr.: Dr. Jorden Ortiz DO Status: REG RCR Insurance: MEDICARE PART A B [facility] It has been my pleasure to treat [...] pain with restisted abduction, Elbow: isometric: 4+/5, Silver Chaser: equal Goal 1:: Patient will be I [...] please feel free to call me at [phone]. Thank you for the referral of thispatient. Sincerely, Mariaa Pinzon, DPT Balance/Gait/Functional tests - Balance/Special Test Scores Quick DASH Score: 29.5450 <Electronically signed by Mariaa Pinzon DPT> 11/16/22 0838 CC: Dr. Ethan Avendano MD; Dr. 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 His should continue to monitor his overall level of function frequently including with regards to driving skills with information being provided regarding doing the same. Billing: Total Treatment Time Minutes (timed/untimed) 60 minutes Drivers Follow Up per 60 min (75657): 1:1 time 60 min Total time: 60 minutes ROXI De La Vega, CDRS, CDI Certified Director Airport Operations Behavior Specialist documented in this encounterMercy Health Tiffin Hospital12-12-2022 History of Present illness Narrative* Florence [...] exercise classes but also to go to [place] every Monday to work on [employer] and is gone all day. 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 due 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) Recreation / Current Exercise: Silver Sneakers classes including yoga/cardio/mellisa; Parkinsons Delay the Disease class 2x/week Hobbies / Interests: 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 [employer] running again 1x/week in [place] with others which he has been doing for the past several years Home Environment Patient Lives With: Spouse Assistance Available: PRN ( available most of the time) Home Type: Multi-Level Transportation: [employer] Van Activities of Daily Living: Modified Independent Instrumental Activities of Daily Living: 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 does most of the other household [...] History: 54 years while he drives 2017 [employer] van; 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 drive State: [place] License/Permit #: [id number] Expires: 03/25/26 Restrictions: corrective lenses required for [...] Sufficient although does have tremors in same Silver Chaser: Sufficient Right LE: Sufficient Left LE: [id number] Sitting Balance: Sufficient Head / Neck: decreased [...] Recall: WFL @ 5/6 digits Visual Scanning/Attention: [place] Making Part B (sec): 92 sec 50th [...] COGNITIVE / PERCEPTUAL FUNCTION: Compatible with Driving [place] Director Airport Operations Simulator: Simple Brake Reaction Time: Average Distance: 57 feet (Normal = 60 feet) R foot only pedal operation method Education: Education Learning Preferences: Explanation Barriers: None Learning/educational needs: Safety;Plan of Care Education Provided: Yes, see treatment interventions for education provided Education Provided To: Patient;Family () Education Mode/Type: Explanation/Discussion Response to Education/Teach Back: States/Identifies TREATMENT: Evaluation Self-Prison Management: 1: refer to information in report [...] 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 Due to the complex nature of the safe operation of a motor vehicle, and considering the demands of integrating changing environmental conditions, and visual, cognitive, and physical skills, successful completion of this program is not a guarantee of safe driving in the future. ASSESSMENT OF INSTRUMENTAL ADL AND COMMUNITY MOBILITY: Francisco Ramos presents with the diagnosis of Parkinsons [...] Complete Eye Exam: Yes as indicated by program management professional Prognosis: Fair Fair due to: clinical presentation;chronic nature of impairments Goals for Episode of Care created on 08/15/22 through 08/22/22 Patient will complete clinical training and/or testing at [place] level in preparation for returning to driving. Patient will complete functional mobility task with good safety awareness during behind the wheel session/assessment. Planned Interventions, Frequency, and Duration: Current Frequency: 1 visit Duration: 1 visit Total Number of Visits Planned: 1 Patient to be see for Director Airport Operations rehab evaluation PLAN FOR NEXT VISIT: completion of behind the wheel assessment Patient demonstrates good understanding of plan of care and treatment. The above goals and plan of care were discussed and agreed upon by patient/family. Billing: Total Treatment Time Minutes (timed/untimed) 120 minutes Evaluation - Moderate Complexity (11900) Self Care / Home Management (49829): 1:1 time: 60 minutes (4 units: 53-67 mins) Total time: 120 minutes ROXI De La Vega, CDRS, CDI Certified Director Airport Operations Behavior Specialist documented in this encounterMercy Health Tiffin [facility]07-18-2019 Evaluation note* Diagnosis Onset Date Resolution Status Carotid bruit acute History of coronary artery stent placement March 21, 2019 chronic Hyperlipidemia [facility] Work Phone: [phone]) 233-270011-07-2013 History of Past illness Narrative* Problem Noted Date Resolved Date Pure hypercholesterolemia 2012 documented as of this encounter (statuses as of 08/16/2022) [facility]11-07[facility] History of Past illness Narrative* Problem Noted Date Resolved Date Pure hypercholesterolemia 2012 documented as of this encounter (statuses as of 08/19/2022) [facility] History of Past illness Narrative* Problem Noted Date Resolved Date Pure hypercholesterolemia 2012 documented as of this encounter (statuses as of 12/29/2022) [facility] HospitalEvaluation note* Diagnosis Onset Date Resolution Status Atherosclerosis of coronary artery of [place] heart without angina pectoris chronic Hyperlipidemia chronic [facility] Work Phone: Evxtiation noteNo assessment information available [facility] Work Phone: evaluation note* Diagnosis Onset Date Resolution Status Cardiac murmur, unspecified acute Carotid bruit acute 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 Hyperlipidemia [facility] Work Phone: evaluation note* Diagnosis Parkinson disease (HCC)- Primary Paralysis agitans Abnormality of gait and mobility Abnormality of gait Abnormal coordination Lack of coordination Irregular eye movements Other irregularities of eye movements documented in this encounter [facility]* Diagnosis Parkinson disease (HCC)- Primary Paralysis agitans Abnormality of gait and mobility Abnormality of gait Abnormal coordination Lack of coordination Irregular eye movements Other irregularities of eye movements documented in this encounter [facility] HospitalEvaluation [facility]* Diagnosis Parkinson disease (HCC)- Primary Paralysis agitans documented in this encounter [facility] HospitalEvaludelaware [facility] note* Diagnosis 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 documented in this encounter [facility] for referral (narrative)No reason for referral information availableWMartins Ferry Hospital Work Phone: Summary Purpose Family History No Family History Records Found Relationship Condition Age at Onset Recorded Date/T [place] mother Cardiac disease Unknown father Parkinson's disease Unknown Advance Directives No Advanced Directives Records Found Advance Directive Response Recorded Date/ Time Advance Directives Yes March 21 7:13am Living Will Yes December 30, 2020 6:44pm Power of Service Trainer Yes December 30 6:44pm Advance Directive Response Recorded Date/ Time Advance Directives Yes March 21 6:13am Living Will Yes December 30, 2020 5:44pm Power of Service Trainer Yes December 30 5:44pm Advance Directive Response Recorded Date/ Time Living Will Yes December 30, 2020 5:44pm Power of Service Trainer Yes December 30 5:44pm Living Will Yes August 22 10:23am Power of Service Trainer Yes August 22, 2024 10:23am Name of Medical Power of Service Trainer August 22, 2024 10:23am Advance Directives Yes March 21 6:13am Advance Directive Response Recorded Date/ Time Living Will Yes August 22 11:23am Power of Service Trainer Yes August 22, 2024 11:23am Name of Medical Power of Service Trainer August 22, 2024 11:23am Advance Directives Yes March 21 7:13am Advance Directive Response Recorded Date/ Time Living Will Yes December 30, 2020 6:44pm Do you have a Healthcare Power of Service Trainer? Yes December 30, 2020 6:44pm Living Will Yes August 22 11:23am Do you have a Healthcare Power of Service Trainer? Yes August 22, 2024 11:23am Name of Medical Power of Service Trainer August 22, 2024 11:23am Advance Directives Yes March 21 7:13am Advance Directive Response Recorded Date/ Time Living Will Yes December 30, 2020 6:44pm Do you have a Healthcare Power of Service Trainer? Yes December 30, 2020 6:44pm Advance Directives Yes March 21 7:13am Advance Directive Response Recorded Date/ Time Living Will Yes December 30, 2020 6:44pm Do you have a Healthcare Power of Service Trainer? Yes December 30, 2020 6:44pm Do you have a Healthcare Power of Service Trainer? Yes March 15, 2025 9:45pm Name of Medical Power of Service Trainer gardenia ramos March 15, 2025 9:45pm Advance [...] Visit Atherosclerosis of c oronary artery of c[place]o heart without angina pectoris Hyperlipidemia Chief Complaint [...] 2024 11 :12am INCOMPLETE COLONOSCOPY/TORTUOUS COLON Ja johnathanphoenix 2024 8:06am IVIG October 10, 2024 9 [...] section and content) DATE CREATED AUTHOR 02/27/2018 [facility] [place] DATE CREATED AUTHOR AUTHOR'S ORGANIZ ATION 08/09/2019 [facility] ([place]) DATE CREATED AUTHOR AUTHOR'S ORGANIZ ATION 12/30/2022 [facility] DATE CREATED AUTHOR AUTHOR'S ORGANIZ ATION 05/25/2024 [facility] DATE CREATED AUTHOR AUTHOR'S ORGANIZ ATION 03/23/2025 [facility] DATE CREATED AUTHOR AUTHOR'S ORGANIZ ATION 2025 [facility] y [facility] Goals (unrecognized section and content) Goals [...] any alcohol or drug abuse patient.[facility] HospitalIn the event this information is protected by the Federal Confidentiality of Alcohol and Drug Abuse Patient Records regulations: The Federal rules restrict any use of the information to criminally investigate or prosecute any alcohol or drug abuse patient.[facility] HospitalIn the event this information is protected by the Federal Confidentiality of Alcohol and Drug Abuse Patient Records regulations: The Federal rules restrict any use of the information to criminally investigate or prosecute any alcohol or drug abuse patient.[facility] Reason for Visit (unrecogniz ed section and content) Reason Comments Occupational Therapy Specialty Diagnoses / Procedures Referred By Laura angulo Referred To Contact [facility] Diagnoses Parkinson's disease Drivers evaluation Procedures NEW RS OT COMM REINTEGRATION Errol Larson MD [address] [place] [address] [facility] [place] [address] [place] [id number] Referral ID Status Reason Start Date Expiration Date V isits Requested Visits Authorized [id number] Authorized 09/04/2021 09/03/2022 99 99 Reason Comments OT EVAL Reason Comments Consult Parkinsons Reason Comments Abdominal Pain Transfer from [facility] for Colonoscopy due to a twisted colon. Pt reports that his symptoms began a few hours ago. Denies any N/V/D. Pt is A&ox 3. Denies any other complaints at this time. Specialty Diagnoses / Procedures Referred By Laura angulo Referred To Contact Diagnoses Sigmoid volvulus (CMS/HCC) (HCC) Sigmoid Volvulous Procedures .. 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 Ethan Avendano MD Primary Care Provider Active Joan Prebish AUTOMATIC GLOVE TURNER AND FORMER, AUTOMATIC GLOVE TURNER AND FORMER-C Attending Provider, Referring Pr ovider Active Team Status: Inactive Member Role Status Dates Dr. Ethan Avendano MD Primary Care Provider Active Dr. Jorden Ortiz DO Attending Provider, Referring Provider Active Powerhouse Mechanic Helper Relationship Specialty Start Date End Date Lacy [...] Status: Inactive Member Role/Relationship Status Dates Dr. Etahn Avendano MD Primary Care Provider Active Start: [...] March 15, 2025 End: March 16, 2025 Powerhouse Mechanic Helper Relationship Specialty Start Date End Date Jameel Oseguera [address] [place] [id number] PCP - General 03/16/25 Scheduled Active and [...] 0901 (Given - Provider: Lu Bee RN) enoxaparin (Lovenox) syringe 40 mg [...] sedation for opioid reversal - MUST notify general education instructor provider immediately after first dose, may give [...] BE BASED ON THE PRIMARY CLINICAL RECORDS. [employer] [facility]. provides no warranty or guarantee of the accuracy or completeness of information in this document.
[2025-03-25 23:36] VITALS: BP 138/88; PULSE 105; RESP 18; TEMP 36.7; O2SAT 95
[2025-03-25 23:45] LABS: Magnesium 1.9 mg/dL (1.5-2.2)
[2025-03-26 01:14] VITALS: BMI 21.1
[2025-03-26 01:22] VITALS: BP 151/74; PULSE 99; RESP 18; TEMP 36.6; O2SAT 99
[2025-03-26 01:37] LABS: Procalcitonin 0.08 ng/mL (<=0.10)
--- OUTSIDE RECORDS SUMMARY | 2025-03-26 03:07 | XMS RPT_ITS | CCD ---
Author Organization [facility] Care Team Providers Care Artillery Officer Name Role Phone Isaac Prater Unavailable Unavailable [...] Provider Dr. Jameel Oseguera MD Attending Provider [phone] Ana Rosa MACDONALD, Dr. Jorgensen Other Provider [...] Provider Devendra MACDONALD, Dr. Arciniega Referring Provider Waight PA, Sandra Attending Provider [facility], Sandra Referring Provider Juan Alberto MACDONALD, Dr. Aragon Primary Care Provider Ana Rosa MACDONALD, Dr. Jorgensen Attending Provider Juan Alberto MACDONALD, Dr. Aragon Attending Provider Juan Alberto MACDONALD, Dr. Aragon Referring Provider [facility], Sandra Attending Provider [facility], Sandra Referring Provider Juan Alberto MACDONALD, Dr. Aragon Primary Care Provider Osiris MACDONALD, Dr. Marcio Zhu Attending Provider Juan Alberto MACDONALD, Dr. Aragon Primary Care Provider Juan Alberto MACDONALD, Dr. Aragon Attending Provider Juan Alberto MACDONALD, Dr. Aragon Referring Provider Juan Alberto MACDONALD, Dr. Aragon Primary Care Provider Juan Alberto MACDONALD, Dr. Aragon Referring Provider [phone] Juan Alberto MACDONALD, Dr. Aragon Attending Provider Dr. Brijesh Frederick DO Emergency Provider Jameel Oseguera Primary Care Provider NONE, PCP Referring Unavailable JAMEEL OSEGUERA Primary Care Unavailable MA, BURROUGHS Admitting Unavailable MA, BURROUGHS Attending Unavailable Avendano, Ethan Referring Unavailable Avendano, Ethan Primary Care Unavailable Avendano, Ethan Attending Unavailable Avendano, Ethan Primary Care Unavailable Devendra, Kite Referring Unavailable Devendra Demian Attending Unavailable Avendano, Ethan Referring Unavailable Avendano, Ethan Attending Unavailable Avendano, Ethan Primary Care Unavailable Aevndano, Ethan Referring Unavailable Avendano, Ethan Primary Care [...] Ethan Referring Unavailable Calabretta, Jameel Attending Unavailable Avendano, Ethan Referring Unavailable Avendano, Ethan Attending Unavailable Avendano, Ethan Primary Care Unavailable Avendano, Ethan Referring Unavailable Avendano, Ethan Attending Unavailable Avendano, Ethan Primary Care Unavailable Avendano, Ethan Primary Care Unavailable Avendano, Ethan Referring Unavailable Calabretta, Jameel Attending Unavailable Avendano, Ethan Primary Care Unavailable Avendano, Ethan Referring Unavailable Calabretta, Jameel Attending Unavailable Calabretta, Jameel Consulting Unavailable Avendano, Ethan Primary Care Unavailable Avendano, Ethan Referring Unavailable Demian Ramsay Attending Unavailable Avendano, Ethan Primary Care Unavailable Avendano, Ethan Referring Unavailable Avendano, Ethan Attending Unavailable Avendano, Ethan Primary Care Unavailable Avendano, Ethan Referring Unavailable Avendano, Ethan Attending Unavailable Avendano, Ethan Primary Care Unavailable Avendano, Ethan Referring Unavailable Avendano, Ethan Attending Unavailable Rosie-Loki, Brijesh Attending Unavailabl e Avendano, Ethan Primary Care Unavailable Waight, Sandra Referring Unavailable Waight, Sandra Attending Unavailable Avendano, Ethan Primary Care Unavailable Rosa, Mike Referring Unavailable Rosa, Mike Attending Unavailable Avendano, Ethan Primary Care Unavailable Avendano, Ethan Primary Care Unavailable Avendano, Ethan Referring Unavailable Avendano, Ethan Attending Unavailable Avendano, Ethan Primary Care Unavailable Calabretta, Jameel Attending Unavailable Calabretta, Jameel Referring Unavailable Avendano, Ethan Primary Care Unavailable Avendano, Ethan Referring Unavailable Avendano, Ethan Attending Unavailable Avendano, Ethan Primary Care Unavailable Avendano, Ethan Referring Unavailable Avendano, Ethan Attending Unavailable Jennyy-Dr. Brijesh Manjarrez DO Attending Provider Dr. Manny Galeana MD Emergency Provider [phone] Dr. Lacy Johnston MD Admit Provider [phone] Dr. Lacy Johnston MD Attending Provider Allergies Allergy Classification Reported Allergen(s) Allergy Type Date of Onset Reaction(s) Facility (3 sources) dust,mold grass [Other] Propensity to adverse reactions [address] [place] [address] (2 sources) OTHER; Translations: [OTHER] Propensity to adverse reactions (disorder) 6 [facility] (2 sources) Seasonal allergy Propensity to adverse reactions Runny nose [facility] Medications Current Medications Medication Drug Class(es) Dates [...] 3:38pm Start: 07-11-2013 take 1 tablet by vashti th once daily Aspirin 81 mg tab Take 1 tablet by mouth once daily. 1 tablet 0 07/11/2013 Active Start: 06-10-2013 End: 03-04-2019 Aspirin 325 MG tablet Discon tinued 162 mg PO DAILY@0800 June 10, 2013 12:00am March 04, 2019 7:15pm Start: 06-10-2013 End: 03-04-2019 take 162 mg by mouth once daily Aspirin Discontinued 162 MG PO DAILY@0800 June 10, 2013 12:00am March 04, 2019 7:15pm Comment on above: Take 1 tablet by vashti th once daily. Bupropion Hcl 100 mg tablet sustained-release 12 hr (7 sources) Start: 5 take 1 tablet by mouth once daily in the morning Bupropion Hcl 100 mg tablet sustained-release 12 hr Active 100 mg PO EVERY MORNING November 28, 2024 12:00am escitalopram 5 mg oral tablet (20 sources) Serotonin Reuptake Inhibitor Start: 5 take 2 tablets by mouth once daily [...] December 30, 2020 12:00am immunoglobulin g, human 02236 mg injection (20 sources) Human Immunoglobulin G Start: 03-04-20 19 Immun Glob M-Koz-Zrzc-Iga 0-50 10 gram recon soln Active 20 g .Route .w4dcqhr 0 March 04, 2019 12:00am Common variable [...] hydrochloride 5 mg oral tablet (20 sources) F-fjvrzt-U-aspartate Receptor Antagonist Start: 02-02-20 take 2 tablets by mouth twice daily Memantine 5 mg tablet Active 10 mg PO TWICE A DAY February 01, 2023 10:58am Start: 02-01-2023 take 10 mg by mouth twice naga y Memantine Active 10 MG PO TWICE A DAY February 01, 2023 10:58am Start: 08-18-2021 take 1 tablet by vashti th twice daily memantine (NAMENDA) 10 mg [...] 1:19pm Start: 06-10-2013 take 1 tablet by vashti th once daily Multivitamin With Folic Acid Active 1 TABLET PO DAILY June 09, 2013 11:00pm Start: 06-10-2013 take 1 tablet by vashti th once daily Multivitamin With Folic Acid Active 1 TABLET PO DAILY June 10, 2013 12:00am Multivitamin With Folic Acid 1 TABLET tablet (9 sources) Start: 06-10-2013 take 1 tablet by mouth once daily Multivitamin With Folic Acid 1 TABLET tablet Active 1 {tbl} PO DAILY June 10, 2013 12:00am Start: 06-10-2013 take 1 tablet by vashti th once daily Multivitamin With Folic Acid [...] Comment on above: TAKE 1 TABLET BY [facility] EVERY DAY with supper. Completed/Discontinued Medications Medication Drug Class(es) Dates Sig (Normalized) Sig (Original) [id number] 200 actuat albuterol 0.09 mg/actuat metered dose [...] Albuterol Sulfate Discontinued 2 PUFF INHALATION Q4H 1 January 30, 2019 12:00am April 29, [...] Start: 11-28-2024 take 5 tablets by mo [facility] once daily Carbidopa-Levodopa 25-100 mg tablet Active 1 {tbl} PO .qid November 28, 2024 10:54am 5 tabs daily Start: 02-01-2023 End: 11-28-2024 Carbidopa-Levodopa 25-100 mg tablet Discontinued 1 {tbl} PO .qid February 01, 2023 12:00am November 28, 2024 10:56am Start: 02-01-2023 [facility] Carbidopa-Levodopa Active 1 TABLET [...] at 6pm Active take 1 tablet by vashti th four times daily carbidopa-levodopa CR (SINEMET CR) 50-200 mg per tablet Take 1 tablet by mouth four times daily. 0 Active Comment on above: Take 1 tablet by vsahti th four times daily. celecoxib 200 mg oral capsule (20 sources) Nonsteroidal Anti-inflammatory Drug Start: 019 End: 025 take 1 capsule by mouth twice daily [...] (3 sources) Vitamin D Start: 012 End: 023 take 1 capsule by mouth once daily Cholecalciferol, Vitamin D3, 1,000 unit Cap Take 1 capsule by mouth once daily. 1 capsule 0 01/27/2012 12/29/2022 Discontinued Comment on above: Take 1 capsule by mo [facility] once daily. ciprofloxacin 500 mg oral tablet (20 sources) Quinolone Antimicrobial Start: 021 End: take 1 tablet by mouth twice daily Ciprofloxacin Hcl (Cipro) 500 mg tablet Discontinued 500 mg PO TWICE A DAY 14 0 December 30, 2020 12:00am February 16, 2021 10:06am clopidogrel 75 mg oral tablet (20 sources) P2Y12 Platelet Inhibitor Start: End: 023 take 1 tablet by mouth [...] Comment on above: Take 1 tablet by vashti th once daily. finasteride 5 mg oral tablet [...] 2021 10:07am take 1 capsule by mo [facility] three times daily gabapentin (NEURONTIN) [...] 2021 9:43am Guar Gum 1 GM tablet,chewable (9 sources) Start: 06-10-2013 End: 01-05-2021 take 1 [...] 03-16-2025 1 mg, IntraMUSCular, Once, O n [place] 03/16/25 at 1845, For 1 dose, IM route of administration preferred. Because of the risk of TdP and QT prolongation, ECG monitoring is recommended if haloperidol is given IV Start: 03-16-2025 End: 03-16-2025 Starting on [place] 03/16/25 at 1 832, For 1 dose, OFredy vacal: cabinet override iopamidol (Isovue-370) 76 % injection 75 mL (2 sources) Start: 03-16-2025 End: 03-16-2025 take 75 mL intravenously once as needed 75 mL, IntraVENous, IMG once PRN, contrast, Starting on [place] 03/16/25 at 0753, For 1 dose Ivig [...] 12:00am March 04, 2019 7:19pm Ivig Iv.Soln (9 sources) Start: 06-10-2013 End: 03-04-2019 take 20 [...] 10 mL injection (2 sources) Start: End: 07-18-2 025 40 mg, IntraVENous, Administer over 2 Minutes, Daily, First dose on Mon03/16/25 at 1100, Reconstitute with 10 ml NS. Vial expires 2 hrs after reconstitution. polyethylene glycol 3350 58179 mg powder for oral solution (4 sources) Osmotic Laxative Start: End: 025 238 g, Oral, Once, On Mon03/17/25 at 1800, For 1 dose, At 6 pm drink entire 238 gram bottle of Miralax in 64 ounces of fluid (no red, purple or orange). Drink 8 ounce glass every 15-20 minutes until finished Start: 03-16-2025 End: 03-18-2025 17 g, Oral, 2 times daily, F irst dose on Mon03/16/25 at 0950 potassium chloride 20 meq powder for oral solution (2 sources) Start: 03-20-2025 End: 03-20-2025 take 1 [oz_av] by mouth once 40 mEq, Oral, Once, On Niki 03/20/25 [...] hour 125 mL/hr, IntraVENous, Continuous, Starting on Mon03/16/25 at 0720 Start: 03-10-2016 0.9 % SODIUM [...] capsule Discontinued 0.4 mg PO DAILY 7 0 March 12, 2019 12:00am December 24, 2020 [...] for administrative examinations, unspecified] Onset: 02-11-2025 Episodic Attention-deficit, conduct, and disruptive behavior disorders (2 sources) Combativeness; Translations: [Other symptoms and signs involving appearance and behavior] 2025 Episodic Coronary atherosclerosis and other heart disease (20 sources) Disorder of coronary artery; 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 Comment on above: ECO-VLT-Sqlccz RCA w / 2.5 x 12 mm Elunir Stent and MILANA-Mid RCA w/ 3.0 x 33 mm Elunir Stent 03/11/19; PCI-MILANA- Mid LAD w/ 3.0 x 16 mm Synergy MR Stent 03/21/2019 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; Translations: [Other specified congenital [...] respiratory systems] 03-16-2022 Episodic Other circulatory disease (1 source) H/O: heart disorder; Translations: [Personal history of other diseases of the circulatory system] 2025 Episodic Other eye disorders (2 sources) Irregular eye movements; Translations: [Other irregular eye movements] Chronic Other gastrointestinal disorders (9 sources) Stool DNA-based colorectal cancer screening positive; Translations: [Other fecal abnormalities] 07-10-2024 Episodic Other lower respiratory disease (20 sources) Dyspnea on exertion; Translations: [Dyspnea, unspecified] 12-12-2020 Episodic Other nervous system disorders (2 sources) Abnormal gait; Translations: [Unspecified abnormalities of gait and mobility] Episodic Other nervous system disorders (2 sources) Coordination problem; Translations: [Other lack of coordination] Episodic Other nervous system disorders (2 sources) H/O: brain disorder; Translations: [Personal history of other diseases of the nervous system and sense organs] 2025 Episodic Other screening for suspected conditions (not mental disorders or infectious disease) (5 sources) Raised prostate specific antigen; Translations: [Elevated prostate specific antigen [PSA]] Onset: 07-21-2014 07-21-2014 Episodic Parkinson`s disease (20 sources) Parkinson's disease; Translations: [Parkinson's disease] Onset: 02-02-2024 Chronic Unclassified (20 sources) BPH loc w [...] Test Name Value Interpretation Reference Range Facility Absolute lymphocyte countOrd ered By: Manny Galeana on 2025 Lymphocytes Auto (Unsp spec) [#/Vol] 0.57 10*3/uL Low 0.83-4.51 [facility] Absolute neutrophil countOrd ered By: Manny Galeana on 2025 Neutrophils (Bld) [#/Vol] 4.5 10*3/uL 2.0-7.7 [facility] Amphetamine detection with 1 000 ng/mL as cutoffOrdered By: Manny Galeana on 2025 Amphetamines Screen method >1000 ng/mL Ql (U) Negative < 200 ng/mL [facility] Anion gap in Serum or Plasma Ordered By: Manny Galeana on 2025 Anion gap [Moles/Vol] 11 mmol/L 5-15 [facility] Automated lymphocyte count a s percentage of total leukocytesOrdered By: Manny Galeana on 2025 Lymphocytes/100 WBC Auto (Unsp spec) 10.2 % Low 19-41 [facility] BUN/creatinine ratioOrdered By: Manny Galeana on 2025 Urea nitrogen/Creatinine [Mass ratio] 17.9 mg/mg 10-20 [facility] Basophil percentageOrdered B y: Manny Galeana on 2025 Basophils/100 WBC (Bld) 0.2 % 0-1 [facility] Bilirubin Test strip Ql (U)O rdered By: Manny Galeana on 2025 Bilirubin Ql (U) Negative Negative [facility] Carbon dioxide, total [Moles /volume] in Central venous bloodOrdered By: Manny Galeana on 2025 CO2 [Moles/Vol] 26.2 mmol/L 21.0-32.0 [facility] Chloride assayOrdered By: Sreedhar Galeana on 2025 Chloride [Moles/Vol] 100 mmol/L 98-108 [facility] Eosinophil percentageOrdered By: Manny Galeana on 2025 Eosinophils/100 WBC (Bld) 0.0 % 0-5 [facility] Erythrocyte distribution wid th ratioOrdered By: Manny Galeana on 2025 Erythrocyte distribution width (RBC) [Ratio] 13.2 % 11.6-14.6 [facility] Erythrocyte distribution wid th standard deviationOrdered By: Manny Galeana on 2025 Erythrocyte distribution width (RBC) [Ratio] 43.5 fl 35.1-43.9 [facility] Glomerular filtration rate ( GFR) estimation/1.73 sq m using serum, plasma, or whole bOrdered By: Manny Galeana on 2025 GFR/1.73 sq M.predicted among non-blacks MDRD (S/P/Bld) [Vol rate/Area] 63 mL/min/{1.73_m2} >60 [facility] Comment on above: mL/min/1.73m2 CKD-EP I Creatinine Equation (2020) Hematocrit Auto (Bld) [Volum e fraction]Ordered By: Manny Galeana on 2025 Hematocrit (Bld) [Volume fraction] 38.6 % Low 40-54 [facility] Hemoglobin measurementOrdere d By: Manny Galeana on 2025 Hemoglobin (Bld) [Mass/Vol] 13.2 g/dL 13.0-16.5 [facility] Immature granulocytes/100 WB C Auto (Bld)Ordered By: Manny Galeana on 2025 Immature granulocytes/100 WBC (Bld) 1.100 % High 0.0-0.9 [facility] Comment on above: IG% - Immature Granu locytes (promyelocytes, myelocytes and metamyelocytes) > 1% indicates that a LEFT SHIFT is Present. Ketones Test strip Ql (U)Ord ered By: Manny Galeana on 2025 Ketones Ql (U) 5 mg/dl High Negative [facility] MCV (mean corpuscular volume ) determinationOrdered By: Manny Galeana on 2025 MCV (RBC) [Entitic vol] 90.4 fL 80-94 [facility] Magnesium measurement (mass/ volume)Ordered By: Lacy Johnston on 2025 Magnesium (Unsp spec) [Mass/Vol] 1.9 mg/dL 1.5-2.2 [facility] Mean corpuscular hemoglobin (MCH) determinationOrdered By: Manny Galeana on 2025 MCH (RBC) [Entitic mass] 30.9 pg 27.0-32.0 [facility] Mean corpuscular hemoglobin concentration (MCHC) determinationOrdered By: Manny Galeana on 2025 MCHC (RBC) [Mass/Vol] 34.2 g/dL 32-36 [facility] Mean platelet volume determi nationOrdered By: Manny Galeana on 2025 Platelet mean volume (Bld) [Entitic vol] 10.0 fL 6.2-12.0 [facility] Microscopic analysis of urin e for red blood cells (RBC)Ordered By: Manny Galeana on 2025 Microscopic analysis of urine for red blood cells (RBC) 5-10 SEEN /hpf 0-5 [facility] Monocyte percentageOrdered B y: Manny Galeana on 2025 Monocytes/100 WBC (Bld) 7.5 % 0-10 [facility] Mucus LM Ql (Urine sed)Order ed By: Manny Galeana on 2025 Mucus Ql (Urine sed) 0 SEEN /hpf [facility] Neutrophil percentageOrdered By: Manny Galeana on 2025 Neutrophils/100 WBC (Bld) 81.0 % High 47-70 [facility] Nitrite Test strip Ql (U)Ord ered By: Manny Galeana on 2025 Nitrite Ql (U) Negative Negative [facility] No Panel InformationOrdered By: Manny Galeana on 2025 Urine Buprenorphine Qualitative Negative < 200 ng/mL [facility] Urine Oxycodone Screen Negative < 100 ng/mL [facility] Nucleated red blood cell per centageOrdered By: Manny Galeana on 2025 Nucleated RBC/100 WBC (Bld) [Ratio] 0 % 0-5 [facility] Platelet countOrdered By: Sreedhar Galeana on 2025 Platelets (Bld) [#/Vol] 162 10*3/uL 150-450 [facility] Potassium measurement (mass/ volume)Ordered By: Manny Galeana on 2025 Potassium (Unsp spec) [Mass/Vol] 4.4 mmol/L 3.3-5.1 [facility] Protein Test strip Ql (U)Ord ered By: Manny Galeana on 2025 Protein Ql (U) 15 mg/dl High Negative [facility] Quantitative urine opiates m easurementOrdered By: Manny Galeana on 2025 Opiates Ql (U) Negative < 300 ng/mL [facility] RBC Auto (Bld) [#/Vol]Ordere d By: Manny Galeana on 2025 RBC (Bld) [#/Vol] 4.27 10*6/uL Low 4.6-6.2 [facility] Screening urine fentanyl bipin surementOrdered By: Manny Galeana on 2025 fentaNYL Screen Ql (U) Negative [facility] Serum creatinine measurement (mass/volume)Ordered By: Manny Galeana on 2025 Creatinine [Mass/Vol] 1.22 mg/dL High 0.70-1.20 [facility] Serum glucose measurement (m ass/volume)Ordered By: Manny Galeana on 2025 Glucose [Mass/Vol] 135 mg/dL High 70-99 [facility] Serum or plasma calcium john urement (mass/volume)Ordered By: Manny Galeana on 2025 Calcium [Mass/Vol] 9.5 mg/dL 7.6-11.0 [facility] Serum or plasma ethanol john urement (mass/volume)Ordered By: Manny Galeana on 2025 Ethanol [Mass/Vol] mg/dL <10.1 [facility] Comment on above: This test is for med ical purposes only. The legal definition of intoxication varies according to local law. Serum or plasma urea nitroge n measurement (mass/volume)Ordered By: Manny Galeana on 2025 Urea nitrogen [Mass/Vol] 22 mg/dL High 4-19 [facility] Sodium levelOrdered By: Manny Galeana on 2025 Sodium [Moles/Vol] 138 mmol/L 133-145 [facility] Squamous epithelial cells de tection in urine sediment by light microscopyOrdered By: Manny Galeana on 2025 Epithelial cells.squamous LM Ql (Urine sed) 0-5 SEEN /hpf 0-5 [facility] Urine benzodiazepine levelOr dered By: Manny Galeana on 2025 Benzodiazepines Ql (U) Negative < 200 ng/mL [facility] Urine clarityOrdered By: Ronnie Galeana on 2025 Clarity (U) Clear Clear [facility] Urine cocaine levelOrdered B y: Manny Galeana on 2025 Cocaine Ql (U) Negative < 300 ng/mL [facility] Urine color determinationOrd ered By: Manny Galeana on 2025 Color (U) Yellow Yellow [facility] Urine [id number] abinol (THC) measurementOrdered By: Manny Galeana on 2025 Cannabinoids Screen Ql (U) Negative < 50 ng/mL [facility] Urine glucose detectionOrder ed By: Manny Galeana on 2025 Glucose Ql (U) Normal mg/dl Normal [facility] Urine leukocyte esterase det ection by dipstickOrdered By: Manny Galeana on 2025 Leukocyte esterase Test strip Ql (U) Negative Negative [facility] Urine pHOrdered By: Manny bernal on 2025 pH (U) 7.0 [pH] 5.0 - 8.0 [facility] Urine phencyclidine (PCP) de tectionOrdered By: Manny Galeana on 2025 Phencyclidine Ql (U) Negative < 25 ng/mL [facility] Urine sediment bacteria coun t by microscopy (number/high power field)Ordered By: Manny Galeana on 2025 Bacteria LM.HPF (Urine sed) [#/Area] 1 /[HPF] None Seen [facility] Urine specific gravity measu rementOrdered By: Manny Galeana on 2025 Specific gravity (U) [Rel density] 1.010 1.002-1.030 [facility] Urine urobilinogen measureme ntOrdered By: Manny Galeana on 2025 Urobilinogen Ql (U) Normal mg/dl Normal [facility] White blood cell (WBC) count Ordered By: Manny Galeana on 2025 WBC (Bld) [#/Vol] 5.6 10*3/uL 4.4-11.0 [facility] White blood cell countOrdere d By: Manny Galeana on 2025 White blood cell count 0-5 SEEN /hpf 0-5 [facility] [id number] 03-21-2025 [id number] DME order for FWW placed with Elliot from [facility]. [facility] [phone] Educated patient and on Home Care and services available. Patient is agreeable to receiving home care services at this time. Patient was given choice of home care agencies available in the area and is agreeable to having referrals made with agencies that staff the patients service location. Referrals have been sent via [employer]. Spoke with pts regarding all accepting agencies. [facility] is [facility]. Agency notified via Careport. [facility] [phone] 03-21-2025 [phone] provided patient and with [facility]. Street card has resources such as transportation, food, utilities etc. [facility] [id number] Patient Choice Patient Name: FRANCISCO RAMOS Date of : 1950 All Providers Sent Referral Name: [facility] (For [facility] Facilities Only) Phone: [phone] Address: [address] [place] [address] Name: [facility] [place] Phone: [phone] Address: [address] [place] [address] Name: [facility] Phone: [phone] Address: [address] [place] [address] Name: [facility] Address: [address] [place] [address] Name: [facility] Phone: [phone] Address: [address] [place] [address] Name: [facility] [place] Phone: [phone] Address: [address] [place] [address] Name: [facility] Phone: [phone] Address: [address] [place] [address] Name: [facility] [place] Phone: [phone] Address: [address] [place] [address] Name: [facility] Phone: [phone] Address: [address] [place] [address] Name: [facility] Phone: [phone] Address: [address] [place] [facility] [address] [place] [address] Name: [facility] Address: [address] [place] [address] Name: [facility] Address: [address] [facility] [address] [place] [address] Name: [facility] Phone: [phone] Address: [address] [place] [address] Name: [facility] Phone: [phone] Address: [place] [address] Name: [facility] [place] Address: [address] [place] [address] Name: [facility] Address: [address] [place] [address] [facility]: [facility] Phone: [phone] Address: [address] [place] [address] Name: [facility] Address: [address] [facility] [address] [place] [address] Name: [facility] Address: [address] [facility] [address] [place] [address] Name: [facility] (formerly known [facility]) Phone: [phone] Address: [address] [facility] [address] [place] [address] Name: [facility] (All Offices) Phone: [phone] Address: [address], [place] [address] Name: [facility] (Home Health) Address: [address] [facility] [place] [address] Name: [facility] Phone: [phone] Address: [address] [place] [address] Normal [facility] BASIC METABOLIC PANELon 07- Anion gap [Moles/Vol] 10 mmol/L Normal 3-13 [facility] Comment on above: Performed By: #### L [id number] ####Segmental Wall Installer: JAZLYN BRUCE ([id number])[facility] ([facility])[address] [place] [address] Calcium [Mass/Vol] 8.4 mg/dL Low 8.8-10.0 [facility] Comment on above: Performed By: #### L [id number] ####Segmental Wall Installer: JAZLYN BRUCE ([id number])[facility] ([facility])[address] [place] [address] [place] Chloride [Moles/Vol] 104 mmol/L Normal 98-107 [facility] Comment on above: Performed By: #### L AB15 ####Segmental Wall Installer: JAZLYN BRUCE ([id number])[facility] ([facility])[address] [place] [address] [place] CO2 [Moles/Vol] 20 mmol/L Low 23-31 [facility] Comment on above: Performed By: #### L AB15 ####Segmental Wall Installer: JAZLYN BRUCE ([id number])[facility] ([facility])[address] [place] [address] [place] Creatinine [Mass/Vol] 0.76 mg/dL Normal 0.72-1.25 [facility] Comment on above: Performed By: #### L [id number] ####Segmental Wall Installer: JAZLYN BRUCE ([id number])[facility])[address] [place] [address] GLOMERULAR FILTRATION RATE ML/MIN/1.73 SQ M.PREDICTED >90.0 Normal >60.0 [facility] Comment on above: Result Comment: Calc ulation based on the Chronic Kidney Disease Epidemiology Collaboration (CKD-EPI) equation refit without adjustment for race Performed By: #### L AB15 ####Segmental Wall Installer: JAZLYN BRUCE ([id number])[address] Glucose [Mass/Vol] 127 mg/dL High 82-115 [facility] Comment on above: Performed By: #### L [id number] ####Segmental Wall Installer: JAZLYN BRUCE ([id number])[address] Potassium [Moles/Vol] 3.8 mmol/L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 ([id number])[facility])[address] [place] [address] MCH (RBC) [Entitic mass] 30.6 pg Normal 26.0-34.0 [facility] Comment on above: Performed By: #### L [id number], [id number] ####Segmental Wall Installer: JAZLYN BRUCE ([id number])[facility])[address] [place] [address] MCHC 34.8 % Normal 30.5-36.0 [facility] Comment on above: Performed By: #### L [id number], [id number] ####Segmental Wall Installer: JAZLYN BRUCE ([id number])[facility])[address] [place] [address] MCV (RBC) [Entitic vol] 87.9 fL Normal 77.0-99.0 [facility] Comment on above: Performed By: #### L [id number], [id number] ####Segmental Wall Installer: JAZLYN BRUCE ([id number])[facility])[address] [place] [address] Platelet mean volume (Bld) [Entitic vol] 10.8 fL Normal 9.0-12.7 [facility] Comment on above: Performed By: #### L [id number], [id number] ####Segmental Wall Installer: JAZLYN BRUCE ([id number])[facility])[address] [place] [address] Platelets (Bld) [#/Vol] 117 10*3/uL Low 140-440 [facility] Comment on above: Performed By: #### L [id number], [id number] ####Segmental Wall Installer: JAZLYN BRUCE ([id number])[facility])[address] [place] [address] RBC (Bld) [#/Vol] 4.28 10*6/uL Low 4.40-5.90 [facility] Comment on above: Performed By: #### L [id number], [id number] ####Segmental Wall Installer: JAZLYN BRUCE ([id number])[facility])[address] [place] [address] WBC (Bld) [#/Vol] 6.3 10*3/uL Normal 3.6-10.7 [facility] Comment on above: Performed By: #### L [id number], [id number] ####Segmental Wall Installer: JAZLYN BRUCE ([id number])[facility])[address] [place] [address] Laboratory - Hematology and Cell countson 03-19-2025 Band form neutrophils (Bld) [#/Vol] 0.4 10*3/uL High NINF - 0.0 10*3/uL [facility] Band form neutrophils/100 WBC (Bld) 6 % High NINF - 0 % [facility] Thompson cells LM Ql (Bld) Slight Abnormal (none) [facility] Lymphocytes (Bld) [#/Vol] 0.1 10*3/uL Low 1.0 - 4.3 10*3/uL [facility] Lymphocytes/100 WBC (Bld) 1 % Low 15 - 45 % [facility] Monocytes (Bld) [#/Vol] 0.1 10*3/uL 0.0 - 0.9 10*3/uL [facility] Monocytes/100 WBC (Bld) 2 % Low 5 - 13 % [facility] Neutrophils (Bld) [#/Vol] 6 10*3/uL 1.8 - 7.5 10*3/uL [facility] Ovalocytes LM Ql (Bld) Slight Abnormal (none) [facility] Poikilocytosis LM Ql (Bld) Slight Abnormal (none) [facility] RBC morphology finding Nom (Bld) abnormal [facility] Segmented neutrophils/100 WBC (Bld) 90 % High 38 - 82 % [facility] Variant lymphocytes (Bld) [#/Vol] 0.1 10*3/uL High NINF - 0.0 10*3/uL [facility] Variant lymphocytes/100 WBC (Bld) 1 % High NINF - 0 % [facility] MANUAL DIFFERENTIAL (CELLAVI LUCAS)on 03-19-2025 BAND NEUTROPHILS TOTAL PER COUNTED LEUKOCYTES BY MANUAL COUNT 6 Normal [facility] Comment on above: Performed By: #### L [id number], [id number] ####Segmental Wall Installer: JAZLYN BRUCE ([id number])[address] BANDS (10*3/UL) IN BLOOD-CELLAVISION 0.4 10*3/uL High <=0.0 [facility] Comment on above: Performed By: #### L [id number], [id number] ####Segmental Wall Installer: JAZLYN BRUCE ([id number])[facility] ([facility])[address] [place] [address] [place] BASOPHILS TOTAL PER COUNTED LEUKOCYTES BY MANUAL COUNT Normal [facility] Comment on above: Performed By: #### L [id number], [id number] ####Segmental Wall Installer: JAZLYN BRUCE ([id number])[facility])[address] [place] [address] [place] BLASTS TOTAL PER COUNTED LEUKOCYTES BY MANUAL COUNT Normal [facility] Comment on above: Performed By: #### L [id number], [id number] ####Segmental Wall Installer: JAZLYN BRUCE ([id number])[facility])[address] [place] [address] [place] THOMPSON CELLS PRESENCE IN BLOOD BY LIGHT MICROSCOPY Slight Abnormal (none) [facility] Comment on above: Performed By: #### L [id number], [id number] ####Segmental Wall Installer: JAZLYN BRUCE ([id number])[facility])[address] [place] [address] [place] EOSINOPHILS TOTAL PER COUNTED LEUKOCYTES BY MANUAL COUNT Normal [facility] Comment on above: Performed By: #### L [id number], [id number] ####Segmental Wall Installer: JAZLYN BRUCE ([id number])[facility])[address] [place] [address] [place] LYMPHOCYTE VARIANT/100 LEUKOCYTES IN BLOOD- CELLAVISION 1 % High <=0 [facility] Comment on above: Performed By: #### L [id number], [id number] ####Segmental Wall Installer: JAZLYN BRUCE ([id number])[facility])[address] [place] [address] [place] LYMPHOCYTES (10*3/UL) IN BLOOD-CELLAVISION 0.1 10*3/uL Low 1.0-4.3 [facility] Comment on above: Performed By: #### L [id number], [id number] ####Segmental Wall Installer: JAZLYN BRUCE ([id number])[facility])[address] [place] [address] [place] LYMPHOCYTES TOTAL PER COUNTED LEUKOCYTES BY MANUAL COUNT 1 Normal [facility] Comment on above: Performed By: #### L [id number], [id number] ####Segmental Wall Installer: JAZLYN BRUCE ([id number])[facility])[address] [place] [address] [place] LYMPHOCYTES/100 LEUKOCYTES IN BLOOD-CELLAVISION 1 % Low 15-45 [facility] Comment on above: Performed By: #### L [id number], [id number] ####Segmental Wall Installer: JAZLYN [id number])[facility] ([facility])[address] [place] [address] [place] METAMYELOCYTES TOTAL PER COUNTED LEUKOCYTES BY MANUAL COUNT Normal [facility] Comment on above: Performed By: #### L [id number], [id number] ####Segmental Wall Installer: JAZLYN BRUCE ([id number])[facility] [place] [address] [place] MONOCYTES (10*3/UL) IN BLOOD-CELLAVISION 0.1 10*3/uL Normal 0.0-0.9 [facility] Comment on above: Performed By: #### L [id number], [id number] ####Segmental Wall Installer: JAZLYN BRUCE ([id number])[facility] ([facility])[address] [place] [address] [place] MONOCYTES TOTAL PER COUNTED LEUKOCYTES BY MANUAL COUNT 2 Normal [facility] Comment on above: Performed By: #### L [id number], [id number] ####Segmental Wall Installer: JAZLYN BRUCE ([id number])[facility])[address] [place] [address] [place] MONOCYTES/100 LEUKOCYTES IN BLOOD-KATIE 2 % Low 5-13 [facility] Comment on above: Performed By: #### L [id number], [id number] ####Segmental Wall Installer: JAZLYN BRUCE ([id number])[facility] ([facility])[address] [place] [address] [place] MYELOCYTES COUNTED BY MANUAL COUNT Normal [facility] Comment on above: Performed By: #### L [id number], [id number] ####Segmental Wall Installer: JAZLYN BRUCE ([id number])[facility])[address] [place] [address] [place] NEUTROPHILS BAND FORM/100 LEUKOCYTES IN BLOOD-CELLAVISI 6 % High <=0 [facility] Comment on above: Performed By: #### L [id number], [id number] ####Segmental Wall Installer: JAZLYN BRUCE ([id number])[facility] ([facility])[address] [place] [address] [place] NEUTROPHILS TOTAL PER COUNTED LEUKOCYTES BY MANUAL COUNT 94 Normal [facility] Comment on above: Performed By: #### L [id number], [id number] ####Segmental Wall Installer: JAZLYN BRUCE ([id number])[facility] ([facility])[address] [place] [address] OVALOCYTES PRESENCE IN BLOOD BY LIGHT MICROSCOPY Slight Abnormal (none) [facility] Comment on above: Performed By: #### L [id number], [id number] ####Segmental Wall Installer: JAZLYN BRUCE ([id number])[facility] ([facility])[address] [place] [address] [place] POIKILOCYTOSIS (PRESENCE) IN BLOOD BY LIGHT MICROSCOPY Slight Abnormal (none) [facility] Comment on above: Performed By: #### L [id number], [id number] ####Segmental Wall Installer: JAZLYN BRUCE ([id number])[facility] ([facility])[address] [place] [address] PROMYELOCYTES TOTAL PER COUNTED LEUKOCYTES BY MANUAL COUNT Normal [facility] Comment on above: Performed By: #### L [id number], [id number] ####Segmental Wall Installer: JAZLYN BRUCE ([id number])[facility] ([facility])[address] [place] [address] RBC MORPHOLOGY IN BLOOD abnormal Normal [facility] Comment on above: Performed By: #### L [id number], [id number] ####Segmental Wall Installer: JAZLYN BRUCE ([id number])[facility] ([facility])[address] [place] [address] [place] SEGMENTED NEUTROPHILS (10*3/UL) IN BLOOD-CELLAVISION 6.0 10*3/uL Normal 1.8-7.5 [facility] Comment on above: Performed By: #### L [id number], [id number] ####Segmental Wall Installer: JAZLYN BRUCE ([id number])[facility] ([facility])[address] [place] [address] [place] SEGMENTED NEUTROPHILS/100 LEUKOCYTES-CE 90 % High 38-82 [facility] Comment on above: Performed By: #### L [id number], [id number] ####Segmental Wall Installer: JAZLYN BRUCE ([id number])[facility] ([facility])[address] [place] [address] UNCLASSIFIED CELLS TOTAL PER COUNTED LEUKOCYTES BY MANUAL COUNT Normal [facility] Comment on above: Performed By: #### L [id number], [id number] ####Segmental Wall Installer: JAZLYN BRUCE ([id number])[facility])[address] [place] [address] VARIANT LYMPHOCYTES (10*3/UL) IN BLOOD-CELLAVISION 0.1 10*3/uL High <=0.0 [facility] Comment on above: Performed By: #### L [id number], [id number] ####Segmental Wall Installer: JAZLYN BRUCE ([id number])[facility] ([facility])[address] [place] [address] VARIANT LYMPHOCYTES TOTAL PER COUNTED LEUKOCYTES BY MANUAL COUNT 1 Normal [facility] Comment on above: Performed By: #### L [id number], [id number] ####Segmental Wall Installer: JAZLYN BRUCE ([id number])[facility] ([facility])[address] [place] [address] No Panel Informationon 03-19 Atypical Lymphocytes Manual 1 [facility] Bands Manual 6 [facility] Basophils Manual [facility] Blasts [facility] Eosin[facility] Manual [facility] Interpretation and review of laboratory results Abnormal [facility] Lymphocytes Manual 1 [facility] Metamyelocytes [facility] Monocytes Manual 2 [facility] Myelocytes [facility] Neutrophils Manual [address] [facility] Promyelocytes Manual [facility] Unclassified Cells, Manual [facility] Nursing Noteon 03-19-2025 Nursing Note I (EDER [...] he is not allowed to leave. Normal [facility] Progress Noteon 03-19-2025 Progress Note PHYSICAL THERAPY [facility] Treatment Note Name/MRN: Francisco Ramos ([id number]) Date of : 1950 Age: 74 y.o. [facility] Discharge Recommendation: 24 hour supervision [...] reach, left in bed, gait belt, and hose tester present Restraints: No Education Gait, transfers, balance Outcome Measures AM-PAC AM-PAC Inpatient Mobility Raw Score (No Stairs) : 17 JH-HLM -HLM Score: Walked 250 ft or more (i.e. [...] 32 Minutes (gait, FA) Olivia Noriega PTA [facility] Progress Note OCCUPATIONAL THERAPY [facility] Treatment Note Name/MRN: Francisco [id number] ([id number]) Date of : 1950 Age: 74 y.o. Room/Bed: H-6116/-6116 A Discharge Recommendation: 24 hour supervision or [...] notified, no alarms engaged upon entry, and hose tester present Restraints: No Education Education Given To: patient and caregiver Education Provided: OT Role, Plan of Care, ADL Adaptive Strategies, Transfer Training, Energy Conservation, Discharge Recommendations, Benefits of Increasing Activity, and parkinson's techniques. Education Method: Verbal Barriers to Learning: Cognition Education Outcome: Verbalized Understanding, Unable to Demonstrate, and Continued Education Needed AM-PAC AM-PAC Inpatient Daily Activity Raw Score: [address] [facility] G-Code Modifier: CK Goals Patient Stated Goal: [...] retrieval) 1 FA, [address] [facility] [id number] [birth year]2025 [id number] Spoke with [facility] regarding pt combative behavior with staff and PT recs for C, but will wait to discuss possible home care services with pt/family until closer to id. Defense Analyst following case for Discharge Needs. [facility] BASIC METABOLIC PANELon 07- Anion gap [Moles/Vol] 7 mmol/L Normal 3-13 [facility] Comment on above: Performed By: #### L [id number] ####Segmental Wall Installer: JAZLYN BRUCE ([id number])[facility] ([facility])[address] [place] [address] Calcium [Mass/Vol] 8.6 mg/dL Low 8.8-10.0 [facility] Comment on above: Performed By: #### L [id number] ####Segmental Wall Installer: JAZLYN BRUCE ([id number])[facility] ([facility] [place] [address] [place] Chloride [Moles/Vol] 106 mmol/L Normal 98-107 [facility] Comment on above: Performed By: #### L [id number] ####Segmental Wall Installer: JAZLYN BRUCE ([id number])[facility] [place] [address] CO2 [Moles/Vol] 24 mmol/L Normal 23-31 [facility] Comment on above: Performed By: #### L [id number] ####Segmental Wall Installer: JAZLYN BRUCE ([id number])[facility] [place] [address] Creatinine [Mass/Vol] 0.75 mg/dL Normal 0.72-1.25 [facility] Comment on above: Performed By: #### L [id number] ####Segmental Wall Installer: JAZLYN BRUCE ([id number])[facility] ([facility])[address] [place] [address] GLOMERULAR FILTRATION RATE ML/MIN/1.73 SQ M.PREDICTED >90.0 Normal >60.0 [facility] Comment on above: Result Comment: Calc ulation based on the Chronic Kidney Disease Epidemiology Collaboration (CKD-EPI) equation refit without adjustment for race Performed By: #### L [id number] ####Segmental Wall Installer: JAZLYN BRUCE ([id number])[facility] ([facility])[address] [place] [address] Glucose [Mass/Vol] 78 mg/dL Low 82-115 [facility] Comment on above: Performed By: #### L [id number] ####Segmental Wall Installer: JAZLYN BRUCE ([id number])[facility] ([facility])[address] [place] [address] Potassium [Moles/Vol] 3.6 mmol/L Normal 3.5-5.1 [facility] Comment on above: Result Comment: [facility] potassium values may be up to 0.5 mmol/L lower than serum values. Performed By: #### L [id number] ####Segmental Wall Installer: JAZLYN BRUCE ([id number])[facility] ([facility])[address] [place] [address] Sodium [Moles/Vol] 137 mmol/L Normal 136-145 [facility] Comment on above: Performed By: #### L [id number] ####Segmental Wall Installer: JAZLYN BRUCE ([id number])[facility] ([facility])[address] [place] [address] Urea nitrogen [Mass/Vol] 9 mg/dL Normal 9-23 [facility] Comment on above: Performed By: #### L [id number] ####Segmental Wall Installer: JAZLYN BRUCE ([id number])[facility])[address] [place] [address] Basic metabolic 1998 panelon 03-18-2025 Anion gap [Moles/Vol] 7 mmol/L 3 - 13 mmol/L [facility] Calcium [Mass/Vol] 8.6 mg/dL Low 8.8 - 10. 0 mg/dL [facility] Chloride [Moles/Vol] 106 mmol/L 98 - 10 7 mmol/L [facility] CO2 [Moles/Vol] 24 mmol/L 23 - 31 mmol/L [facility] Creatinine [Mass/Vol] 0.75 mg/dL 0.72 - 1.25 mg/dL [facility] GFR/1.73 sq M.predicted (S/P/Bld) [Vol rate/Area] - PINF [facility] Comment on above: Calculation based on the Chronic Kidney Disease Epidemiology Collaboration (CKD-EPI) equation refit without adjustment for race Glucose [Mass/Vol] 78 mg/dL Low 82 - 115 mg/dL [facility] Interpretation and review of laboratory results Abnormal [facility] Potassium [Moles/Vol] 3.6 mmol/L 3.5 - 5.1 mmol/L [facility] Comment on above: Plasma potassium sia ues may be up to 0.5 mmol/L lower than serum values. Sodium [Moles/Vol] 137 mmol/L 136 - 145 mmol/L [facility] Urea nitrogen [Mass/Vol] 9 mg/dL 9 - 23 mg/d L [facility] CBC W Auto Differential pane l (Bld)on 03-18-2025 Basophils (Bld) [#/Vol] 0 10*3/uL 0.0 - 0.2 10*3/uL [facility] Basophils/100 WBC (Bld) 0 % 0.0 - 2.0 % [facility] Eosinophils (Bld) [#/Vol] 0 10*3/uL 0.0 - 0.5 10*3/uL [facility] Eosinophils/100 WBC (Bld) 0 % 0.0 - 6.0 % [facility] Erythrocyte distribution width (RBC) [Ratio] 12.8 % 11.5 - 15.0 % [facility] Hematocrit (Bld) [Volume fraction] 40.2 % 40.0 - 52.0 % [facility] Hemoglobin (Bld) [Mass/Vol] 13.9 g/dL 13.0 - 18.0 g/dL [facility] Immature granulocytes (Bld) [#/Vol] 0 10*3/uL NINF - 0.1 10*3/uL [facility] Immature granulocytes/100 WBC (Bld) 0.4 % 0.0 - 2.0 % [facility] Interpretation and review of laboratory results Abnormal [facility] IPF 4 [facility] Lymphocytes (Bld) [#/Vol] 1 10*3/uL 1.0 - 4.3 10*3/uL [facility] Lymphocytes/100 WBC (Bld) 21 % 15.0 - 45.0 % [facility] MCH (RBC) [Entitic mass] 30.8 pg 26. 0 - 34.0 pg [facility] MCHC (RBC) [Mass/Vol] 34.6 % 30.5 - 36.0 % [facility] MCV (RBC) [Entitic vol] 88.9 fL 77.0 - 99.0 fL [facility] Monocytes (Bld) [#/Vol] 0.5 10*3/uL 0.0 - 0.9 10*3/uL [facility] Monocytes/100 WBC (Bld) 10 % 5.0 - 13.0 % [facility] Neutrophils (Bld) [#/Vol] 3.2 10*3/uL 1.8 - 7.5 10*3/uL [facility] Neutrophils/100 WBC (Bld) 68.6 % 38.0 - 82.0 % [facility] Nucleated RBC/100 WBC (Bld) [Ratio] 0 % [facility] Platelet mean volume (Bld) [Entitic vol] 10.7 fL 9.0 - 12.7 fL [facility] Platelets (Bld) [#/Vol] 127 10*3/uL Low 140 - 440 10*3/uL [facility] RBC (Bld) [#/Vol] 4.52 10*6/uL 4.40 - 5.9 0 10*6/uL [facility] WBC (Bld) [#/Vol] 4.6 10*3/uL 3.6 - 10.7 10*3/uL [facility] CBC WITH AUTO DIFFERENTIALon 03-18-2025 Basophils (Bld) [#/Vol] 0.0 10*3/uL Normal 0.0-0.2 [facility] Comment on above: Performed By: #### L [id number] ####Segmental Wall Installer: JAZLYN BRUCE ([id number])[facility])[address] [place] [address] Basophils/100 WBC (Bld) 0.0 % Normal 0.0-2.0 [facility] Comment on above: Performed By: #### L [id number] ####Seg[employer] Wall Installer: JAZLYN BRUCE ([id number])[facility] ([facility])[address] [place] [address] Eosinophils (Bld) [#/Vol] 0.0 10*3/uL Normal 0.0-0.5 [facility] Comment on above: Performed By: #### L [id number] ####[employer] Installer: JAZLYN BRUCE ([id number])[facility])[address] [place] [address] Eosinophils/100 WBC (Bld) 0.0 % Normal 0.0-6.0 [facility] Comment on above: Performed By: #### L [id number] ####[employer] Wall Installer: JAZLYN BRUCE ([id number])[facility])[address] [place] [address] Erythrocyte distribution width (RBC) [Ratio] 12.8 % Normal 11.5-15.0 [facility] Comment on above: Performed By: #### L [id number] ####[employer] Wall Installer: JAZLYN BRUCE ([id number])[facility])[address] [place] [address] Hematocrit (Bld) [Volume fraction] 40.2 % Normal 40.0-52.0 [facility] Comment on above: Performed By: #### L [id number] ####[employer] Installer: JAZLYN BRUCE ([id number])[facility])[address] [place] [address] Hemoglobin (Bld) [Mass/Vol] 13.9 g/dL Normal 13.0-18.0 [facility] Comment on above: Performed By: #### L [id number] ####[employer] Wall Installer: JAZLYN BRUCE ([id number])[facility])[address] [place] [address] IMMATURE GRANS % 0.4 % Normal 0.0-2.0 [facility] Comment on above: Performed By: #### L [id number] ####Segmental Wall Installer: JAZLYN BRUCE ([id number])[address] IMMATURE GRANS ABSOLUTE 0.0 10*3/uL Normal <0.1 [facility] Comment on above: Performed By: #### L [id number] ####Segmental Wall Installer: JAZLYN BRUCE ([id number])[facility])[address] [place] [address] IPF 4 Normal [facility] Comment on above: Performed By: #### L [id number] ####Seg[employer] Wall Installer: JAZLYN BRUCE ([id number])[facility])[address] [place] [address] Lymphocytes (Bld) [#/Vol] 1.0 10*3/uL Normal 1.0-4.3 [facility] Comment on above: Performed By: #### L [id number] ####Seg[employer] Wall Installer: JAZLYN BRUCE ([id number])[facility])[address] [place] [address] Lymphocytes/100 WBC (Bld) 21.0 % Normal 15.0-45.0 [facility] Comment on above: Performed By: #### L [id number] ####Segmental Wall Installer: JAZLYN BRUCE ([id number])[facility])[address] [place] [address] MCH (RBC) [Entitic mass] 30.8 pg Normal 26.0-34.0 [facility] Comment on above: Performed By: #### L [id number] ####Segmental Wall Installer: JAZLYN BRUCE ([id number])[facility])[address] [place] [address] MCHC 34.6 % Normal 30.5-36.0 [facility] Comment on above: Performed By: #### L [id number] ####Segmental Wall Installer: JAZLYN BRUCE ([id number])[facility])[address] [place] [address] MCV (RBC) [Entitic vol] 88.9 fL Normal 77.0-99.0 [facility] Comment on above: Performed By: #### L [id number] ####Segmental Wall Installer: JAZLYN BRUCE ([id number])[facility])[address] [place] [address] Monocytes (Bld) [#/Vol] 0.5 10*3/uL Normal 0.0-0.9 [facility] Comment on above: Performed By: #### L [id number] ####Segmental Wall Installer: JAZLYN BRUCE ([id number])[facility])[address] [place] [address] Monocytes/100 WBC (Bld) 10.0 % Normal 5.0-13.0 [facility] Comment on above: Performed By: #### L [id number] ####Segmental Wall Installer: JAZLYN BRUCE ([id number])[facility] ([facility])[address] [place] [address] NEUTROPHILS ABSOLUTE 3.2 10*3/uL Normal 1.8-7.5 [facility] Comment on above: Performed By: #### L [id number] ####Segmental Wall Installer: JAZLYN BRUCE ([id number])[facility] ([facility])[address] [place] [address] Neutrophils/100 WBC (Bld) 68.6 % Normal 38.0-82.0 [facility] Comment on above: Performed By: #### L [id number] ####Segmental Wall Installer: JAZLYN BRUCE ([id number])[facility] ([facility])[address] [place] [address] NRBC 0.0 /100 WBCs Normal 0.0-2.0 [facility] Comment on above: Performed By: #### L [id number] ####Segmental Wall Installer: JAZLYN BRUCE ([id number])[facility] ([facility])[address] [place] [address] Platelet mean volume (Bld) [Entitic vol] 10.7 fL Normal 9.0-12.7 [facility] Comment on above: Performed By: #### L [id number] ####Segmental Wall Installer: JAZLYN BRUCE ([id number])[facility] ([facility])[address] [place] [address] Platelets (Bld) [#/Vol] 127 10*3/uL Low 140-440 [facility] Comment on above: Performed By: #### L [id number] ####Segmental Wall Installer: JAZLYN BRUCE ([id number])[facility] ([facility])[address] [place] [address] RBC (Bld) [#/Vol] 4.52 10*6/uL Normal 4.40-5.90 [facility] Comment on above: Performed By: #### L [id number] ####Segmental Wall Installer: JAZLYN BRUCE ([id number])[facility] ([facility])[address] [place] [address] WBC (Bld) [#/Vol] 4.6 10*3/uL Normal 3.6-10.7 [facility] Comment on above: Performed By: #### L [id number] ####Segmental Wall Installer: JAZLYN BRUCE ([id number])[facility])[address] [place] [address] Nursing Noteon 03-18-2025 Nursing Note Report called to H[address] [facility] [facility] Nursing Note Called and updated pt at this time [facility] Nursing Note Verified with patients that pt. Had jello and lemon ice yesterday for lunch. [facility] Op Noteon 03-18-2025 Op Note Date: 03/18/2025 Location: [facility] OR Name: Francisco Ramos, : 1950, Diagnosis [...] Tissue TISSUE EXAM Bronson Jarrett MD 03/18/25 8215 Routine Description: SIGMOID COLON Staff: Legal Paraprofessional: Joseph Ibarra RN; Nika Schuster RN Relief Legal Paraprofessional: Gini Awan RN; Cecilia Tinajero Relief Scrub: [...] hours if receiving Vancomycin or flouroquinolone) [facility] Op Note OPERATIVE NOTE PATIENT NAME: Francisco Ramos : 1950 ATTENDING PHYSICIAN: Bronson Jarrett MD PROCEDURE DATE: 03/18/2025 PREOPERATIVE DIAGNOSIS: Sigmoid volvulus POSTOPERATIVE DIAGNOSIS: Same SURGEON: Bronson Jarrett MD DIRECTOR FINANCIAL PLANNING: Yasmin Barry OPERATION: Laparoscopic sigmoid colectomy ANESTHESIA: [...] was opened up. We then created our [place] rectal anastomosis. We had to complete anastomotic [...] to the PACU in stable condition. Normal [facility] Progress Noteon 03-18-2025 Progress Note Nutrition rescreen completed. Patient is NPO/Clear liquid >3 days. Refer to Dietitian. Normal [facility] BASIC METABOLIC PANELon 03-04 Anion gap [Moles/Vol] 8 mmol/L Normal 3-13 [facility] Comment on above: Performed By: #### L [id number] ####Segmental Wall Installer: JAZLYN BRUCE ([id number])[facility] ([address] Calcium [Mass/Vol] 8.8 mg/dL Normal 8.8-10.0 [facility] Comment on above: Performed By: #### L [id number] ####Segmental Wall Installer: JAZLYN BRUCE ([id number])[facility] ([facility])[address] [place] [address] Chloride [Moles/Vol] 107 mmol/L Normal 98-107 [facility] Comment on above: Performed By: #### L [id number] ####Segmental Wall Installer: JAZLYN BRUCE ([id number])[facility] ([facility])[address] [place] [address] CO2 [Moles/Vol] 22 mmol/L Low 23-31 [facility] Comment on above: Performed By: #### L [id number] ####Segmental Wall Installer: JAZLYN BRUCE ([id number])[facility])[address] [place] [address] Creatinine [Mass/Vol] 0.76 mg/dL Normal 0.72-1.25 [facility] Comment on above: Performed By: #### L [id number] ####Segmental Wall Installer: JAZLYN BRUCE ([id number])[facility] ([facility])[address] [place] [address] GLOMERULAR FILTRATION RATE ML/MIN/1.73 SQ M.PREDICTED >90.0 Normal >60.0 [facility] Comment on above: Result Comment: Calc ulation based on the Chronic Kidney Disease Epidemiology Collaboration (CKD-EPI) equation refit without adjustment for race Performed By: #### L [id number] ####Segmental Wall Installer: JAZLYN BRUCE ([id number])[facility] ([facility])[address] [place] [address] Glucose [Mass/Vol] 87 mg/dL Normal 82-115 [facility] Comment on above: Performed By: #### L [id number] ####Segmental Wall Installer: JAZLYN BRUCE ([id number])[facility])[address] [place] [address] Potassium [Moles/Vol] 3.8 mmol/L Normal 3.5-5.1 [facility] Comment on above: Result Comment: [facility] potassium values may be up to 0.5 mmol/L lower than serum values. Performed By: #### L [id number] ####Segmental Wall Installer: JAZLYN BRUCE ([id number])[facility])[address] [place] [address] Sodium [Moles/Vol] 137 mmol/L Normal 136-145 [facility] Comment on above: Performed By: #### L [id number] ####Segmental Wall Installer: JAZLYN BRUCE ([id number])[facility])[address] [place] [address] Urea nitrogen [Mass/Vol] 13 mg/dL Normal 9-23 [facility] Comment on above: Performed By: #### L [id number] ####Segmental Wall Installer: JAZLYN BRUCE ([id number])[facility])[address] [place] [address] Basic metabolic 1998 panelon 03-17-2025 Anion gap [Moles/Vol] 8 mmol/L 3 - 13 mmol/L [facility] Calcium [Mass/Vol] 8.8 mg/dL 8.8 - 10. 0 mg/dL [facility] Chloride [Moles/Vol] 107 mmol/L 98 - 10 7 mmol/L [facility] [employer] CO2 [Moles/Vol] 22 mmol/L Low 23 - 31 mmol/L [facility] Creatinine [Mass/Vol] 0.76 mg/dL 0.72 - 1.25 mg/dL [facility] GFR/1.73 sq M.predicted (S/P/Bld) [Vol rate/Area] - PINF [facility] Comment on above: Calculation based on the Chronic Kidney Disease Epidemiology Collaboration (CKD-EPI) equation refit without adjustment for race Glucose [Mass/Vol] 87 mg/dL 82 - 115 mg/dL [facility] Interpretation and review of laboratory results Abnormal [facility] Potassium [Moles/Vol] 3.8 mmol/L 3.5 - 5.1 mmol/L [facility] Comment on above: Plasma potassium sia ues may be up to 0.5 mmol/L lower than serum values. Sodium [Moles/Vol] 137 mmol/L 136 - 145 mmol/L [facility] [employer] Urea nitrogen [Mass/Vol] 13 mg/dL 9 - 23 mg/d L [facility] CBC W Auto Differential pane l (Bld)on 03-17-2025 Basophils (Bld) [#/Vol] 0 10*3/uL 0.0 - 0.2 10*3/uL [facility] [employer] Basophils/100 WBC (Bld) 0.2 % 0.0 - 2.0 % [facility] Eosinophils (Bld) [#/Vol] 0 10*3/uL 0.0 - 0.5 10*3/uL [facility] Eosinophils/100 WBC (Bld) 0 % 0.0 - 6.0 % [facility] Erythrocyte distribution width (RBC) [Ratio] 12.8 % 11.5 - 15.0 % [facility] Hematocrit (Bld) [Volume fraction] 42.1 % 40.0 - 52.0 % [facility] Hemoglobin (Bld) [Mass/Vol] 14.3 g/dL 13.0 - 18.0 g/dL [facility] Immature granulocytes (Bld) [#/Vol] 0 10*3/uL NINF - 0.1 10*3/uL [facility] Immature granulocytes/100 WBC (Bld) 0.2 % 0.0 - 2.0 % [facility] Interpretation and review of laboratory results Abnormal [facility] IPF [address] [facility] Lymphocytes (Bld) [#/Vol] 0.7 10*3/uL Low 1.0 - 4.3 10*3/uL [facility] Lymphocytes/100 WBC (Bld) 12.7 % Low 15.0 - 45.0 % [facility] MCH (RBC) [Entitic mass] 31 pg 26. 0 - 34.0 pg [facility] MCHC (RBC) [Mass/Vol] 34 % 30.5 - 36.0 % [facility] MCV (RBC) [Entitic vol] 91.3 fL 77.0 - 99.0 fL [facility] Monocytes (Bld) [#/Vol] 0.7 10*3/uL 0.0 - 0.9 10*3/uL [facility] Monocytes/100 WBC (Bld) 13 % 5.0 - 13.0 % [facility] Neutrophils (Bld) [#/Vol] 4.1 10*3/uL 1.8 - 7.5 10*3/uL [facility] Neutrophils/100 WBC (Bld) 73.9 % 38.0 - 82.0 % [facility] Nucleated RBC/100 WBC (Bld) [Ratio] 0 % [facility] Platelet mean volume (Bld) [Entitic vol] 10.8 fL 9.0 - 12.7 fL [facility] Platelets (Bld) [#/Vol] 105 10*3/uL Low 140 - 440 10*3/uL [facility] RBC (Bld) [#/Vol] 4.61 10*6/uL 4.40 - 5.9 0 10*6/uL [facility] WBC (Bld) [#/Vol] 5.5 10*3/uL 3.6 - 10.7 10*3/uL [facility] CBC WITH AUTO DIFFERENTIALon 03-17-2025 Basophils (Bld) [#/Vol] 0.0 10*3/uL Normal 0.0-0.2 [facility] Comment on above: Performed By: #### L [id number] ####Segmental Wall Installer: JAZLYN BRUCE ([id number])[facility])[address] [place] [address] Basophils/100 WBC (Bld) 0.2 % Normal 0.0-2.0 [facility] Comment on above: Performed By: #### L [id number] ####Segmental Wall Installer: JAZLYN BRUCE ([id number])[facility])[address] [place] [address] Eosinophils (Bld) [#/Vol] 0.0 10*3/uL Normal 0.0-0.5 [facility] Comment on above: Performed By: #### L [id number] ####Segmental Wall Installer: JAZLYN BRUCE ([id number])[facility])[address] [place] [address] Eosinophils/100 WBC (Bld) 0.0 % Normal 0.0-6.0 [facility] Comment on above: Performed By: #### L [id number] ####Segmental Wall Installer: JAZLYN BRUCE ([id number])[facility])[address] [place] [address] Erythrocyte distribution width (RBC) [Ratio] 12.8 % Normal 11.5-15.0 [facility] Comment on above: Performed By: #### L [id number] ####[employer]mental [employer] Installer: JAZLYN BRUCE ([id number])[address] Hematocrit (Bld) [Volume fraction] 42.1 % Normal 40.0-52.0 [facility] Comment on above: Performed By: #### L [id number] ####Segmental Wall Installer: JAZLYN BRUCE ([id number])[facility])[address] [place] [address] Hemoglobin (Bld) [Mass/Vol] 14.3 g/dL Normal 13.0-18.0 [facility] Comment on above: Performed By: #### L [id number] ####Segmental Wall Installer: JAZLYN BRUCE ([id number])[address] IMMATURE GRANS % 0.2 % Normal 0.0-2.0 [facility] Comment on above: Performed By: #### L [id number] ####[employer] Wall Installer: JAZLYN BRUCE ([id number])[address] IMMATURE GRANS ABSOLUTE 0.0 10*3/uL Normal <0.1 [facility] Comment on above: Performed By: #### L [id number] ####Segmental Wall Installer: JAZLYN BRUCE ([id number])[address] IPF 4 Normal [facility] Comment on above: Performed By: #### L [id number] ####[employer] Installer: JAZLYN [id number])[address] Lymphocytes (Bld) [#/Vol] 0.7 10*3/uL Low 1.0-4.3 [facility] Comment on above: Performed By: #### L [id number] ####Segmental Wall Installer: JAZLYN BRUCE ([id number])[facility])[address] [place] [address] Lymphocytes/100 WBC (Bld) 12.7 % Low 15.0-45.0 [facility] Comment on above: Performed By: #### L [id number] ####Segmental Wall Installer: JAZLYN BRUCE ([id number])[facility])[address] [place] [address] MCH (RBC) [Entitic mass] 31.0 pg Normal 26.0-34.0 [facility] Comment on above: Performed By: #### L [id number] ####Segmental Wall Installer: JAZLYN BRUCE ([id number])[facility])[address] [place] [address] MCHC 34.0 % Normal 30.5-36.0 [facility] Comment on above: Performed By: #### L [id number] ####Segmental Wall Installer: JAZLYN BRUCE ([id number])[facility])[address] [place] [address] MCV (RBC) [Entitic vol] 91.3 fL Normal 77.0-99.0 [facility] Comment on above: Performed By: #### L [id number] ####Segmental Wall Installer: JAZLYN BRUCE ([id number])[facility])82 [place] [address] Monocytes (Bld) [#/Vol] 0.7 10*3/uL Normal 0.0-0.9 [facility] Comment on above: Performed By: #### L [id number] ####Segmental Wall Installer: JAZLYN BRUCE ([id number])[facility])[address] [place] [address] Monocytes/100 WBC (Bld) 13.0 % Normal 5.0-13.0 S [facility] Comment on above: Performed By: #### L [id number] ####Segmental Wall Installer: JAZLYN BRUCE ([id number])[facility])[address] [place] [address] NEUTROPHILS ABSOLUTE 4.1 10*3/uL Normal 1.8-7.5 [facility] Comment on above: Performed By: #### L [id number] ####Segmental Wall Installer: JAZLYN BRUCE ([id number])[facility] ([facility])[address] [place] [address] Neutrophils/100 WBC (Bld) 73.9 % Normal 38.0-82.0 [facility] Comment on above: Performed By: #### L [id number] ####Segmental Wall Installer: JAZLYN BRUCE ([id number])[facility] ([facility])[address] [place] [address] NRBC 0.0 /100 WBCs Normal 0.0-2.0 [facility] Comment on above: Performed By: #### L [id number] ####Segmental Wall Installer: JAZLYN BRUCE ([id number])[facility] ([facility])[address] [place] [address] Platelet mean volume (Bld) [Entitic vol] 10.8 fL Normal 9.0-12.7 [facility] Comment on above: Performed By: #### L [id number] ####Segmental Wall Installer: JAZLYN BRUCE ([id number])[facility] ([facility])[address] [place] [address] [place] Platelets (Bld) [#/Vol] 105 10*3/uL Low 140-440 [facility] Comment on above: Performed By: #### L [id number] ####Segmental Wall Installer: JAZLYN BRUCE ([id number])[facility] ([facility])[address] [place] [address] [place] RBC (Bld) [#/Vol] 4.61 10*6/uL Normal 4.40-5.90 [facility] Comment on above: Performed By: #### L [id number] ####Segmental Wall Installer: JAZLYN BRUCE ([id number])[facility] ([facility])[address] [place] [address] [place] WBC (Bld) [#/Vol] 5.5 10*3/uL Normal 3.6-10.7 [facility] Comment on above: Performed By: #### L [id number] ####Segmental Wall Installer: JAZLYN BRUCE ([id number])[facility])[address] [place] [address] Laboratory - Coagulationon 0 03-17-2025 aPTT Coag (PPP) [Time] 32.5 s High 20.0 - 30.5 s [facility] INR Coag (PPP) [Relative time] 1.1 {INR} 0.9 - 1.1 [facility] Comment on above: Recommended Anticoag ulant Therapy: [...] [Time] 11.2 s 9.0 - 12.0 s [facility] Panel Informationon 03-17 Interpretation and review of laboratory results Abnormal [facility] PROTIME AND APTTon aPTT Coag (Bld) [Time] 32.5 s High 20.0-30.5 [facility] Comment on above: Performed By: #### L [id number] ####Segmental Wall Installer: JAZLYN BRUCE ([id number])[facility] ([facility])[address] [place] [address] INR Coag (PPP) [Relative time] 1.1 {INR} Normal 0.9-1.1 [facility] Comment on above: Result Comment: Jean-Paul [...] prevent Myocardial Infarction Performed By: #### L [id number] ####Segmental Wall Installer: JAZLYN HELMTash ([id number])[facility] ([facility])[address] [place] [address] PT Coag (PPP) [Time] 11.2 s Normal 9.0-12.0 [facility] Comment on above: Performed By: #### L [id number] ####Segmental Wall Installer: JAZLYN HELMTash ([id number])[facility] ([facility])[address] [place] [address] XR ABDOMEN 1 VIEWon 03-17-20 25 XR [...] Electronically Signed Date/Time: 03/17/2025 8:00 AM EDT Normal [facility] XR Abdomen Single viewon Rectal tube has been advanced probably within tortuous sigmoid colon. No gaseous distention of bowel loops Report Dictated on Electronically Signed By: Leo Dee MD Electronically Signed Date/Time: 03/17/2025 8:00 AM EDT [facility] Patient Name: FRANCISCO RAMOS : 1950 [...] been prior vertebroplasty at the L1 level. [facility] Leo Dee MD - 03/17/2025 Patient Name: FRANCISCO RAMOS : 1950 Exam [...] Electronically Signed Date/Time: 03/17/2025 8:00 AM EDT [facility] Radiology Study observation (narrative) [facility] XR Abdomen Single viewOrdere d By: Leo Dee on 03-17-[address] [facility] [employer] Work Phone: Bilirubin Test strip Ql (U)O rdered By: Brijesh Frederick on 03-16-2025 Bilirubin Ql (U) Negative Negative [facility] CBC W Auto Differential pane l (Bld)on 03-16-2025 Basophils (Bld) [#/Vol] 0 10*3/uL 0.0 - 0.2 10*3/uL [facility] Basophils/100 WBC (Bld) 0 % 0.0 - 2.0 % [facility] Eosinophils (Bld) [#/Vol] 0 10*3/uL 0.0 - 0.5 10*3/uL [facility] Eosinophils/100 WBC (Bld) 0 % 0.0 - 6.0 % [facility] Erythrocyte distribution width (RBC) [Ratio] 13 % 11.5 - 15.0 % [facility] Hematocrit (Bld) [Volume fraction] 38.8 % Low 40.0 - 52.0 % [facility] Hemoglobin (Bld) [Mass/Vol] 12.9 g/dL Low 13.0 - 18.0 g/dL [facility] Immature granulocytes (Bld) [#/Vol] 0 10*3/uL NINF - 0.1 10*3/uL [facility] Immature granulocytes/100 WBC (Bld) 0.3 % 0.0 - 2.0 % [facility] Interpretation and review of laboratory results Abnormal [facility] IPF 4 [facility] Lymphocytes (Bld) [#/Vol] 0.8 10*3/uL Low 1.0 - 4.3 10*3/uL [facility] Lymphocytes/100 WBC (Bld) 13.6 % Low 15.0 - 45.0 % [facility] MCH (RBC) [Entitic mass] 30.6 pg 26. 0 - 34.0 pg [facility] MCHC (RBC) [Mass/Vol] 33.2 % 30.5 - 36.0 % [facility] MCV (RBC) [Entitic vol] 92.2 fL 77.0 - 99.0 fL [facility] Monocytes (Bld) [#/Vol] 0.6 10*3/uL 0.0 - 0.9 10*3/uL [facility] Monocytes/100 WBC (Bld) 10.5 % 5.0 - 13.0 % [facility] Neutrophils (Bld) [#/Vol] 4.5 10*3/uL 1.8 - 7.5 10*3/uL [facility] Neutrophils/100 WBC (Bld) 75.6 % 38.0 - 82.0 % [facility] Nucleated RBC/100 WBC (Bld) [Ratio] 0 % [facility] Platelet mean volume (Bld) [Entitic vol] 10.8 fL 9.0 - 12.7 fL [facility] Platelets (Bld) [#/Vol] 126 10*3/uL Low 140 - 440 10*3/uL [facility] RBC (Bld) [#/Vol] 4.21 10*6/uL Low 4.40 - 5.9 0 10*6/uL [facility] WBC (Bld) [#/Vol] 6 10*3/uL 3.6 - 10.7 10*3/uL [facility] CBC WITH AUTO DIFFERENTIALon 03-16-2025 Basophils (Bld) [#/Vol] 0.0 10*3/uL Normal 0.0-0.2 [facility] Comment on above: Performed By: #### L [id number] ####Segmental Wall Installer: JAZLYN BRUCE ([id number])[facility])[address] [place] [address] Basophils/100 WBC (Bld) 0.0 % Normal 0.0-2.0 [facility] Comment on above: Performed By: #### L [id number] ####Segmental Wall Installer: JAZLYN BRUCE ([id number])[facility])[address] [place] [address] Eosinophils (Bld) [#/Vol] 0.0 10*3/uL Normal 0.0-0.5 [facility] Comment on above: Performed By: #### L [id number] ####Segmental Wall Installer: JAZLYN BRUCE ([id number])[facility])[address] [place] [address] Eosinophils/100 WBC (Bld) 0.0 % Normal 0.0-6.0 [facility] Comment on above: Performed By: #### L [id number] ####Segmental Wall Installer: JAZLYN BRUCE ([id number])[facility])[address] [place] [address] Erythrocyte distribution width (RBC) [Ratio] 13.0 % Normal 11.5-15.0 [facility] Comment on above: Performed By: #### L [id number] ####Segmental Wall Installer: JAZLYN BRUCE ([id number])[facility])[address] [place] [address] Hematocrit (Bld) [Volume fraction] 38.8 % Low 40.0-52.0 [facility] Comment on above: Performed By: #### L [id number] ####Segmental Wall Installer: JAZLYN BRUCE ([id number])[facility])[address] [place] [address] Hemoglobin (Bld) [Mass/Vol] 12.9 g/dL Low 13.0-18.0 [facility] Comment on above: Performed By: #### L [id number] ####Segmental Wall Installer: JAZLYN BRUCE ([id number])[facility])[address] [place] [address] IMMATURE GRANS % 0.3 % Normal 0.0-2.0 [facility] Comment on above: Performed By: #### L [id number] ####Segmental Wall Installer: JAZLYN BRUCE ([id number])[facility])[address] [place] [address] IMMATURE GRANS ABSOLUTE 0.0 10*3/uL Normal <0.1 [facility] Comment on above: Performed By: #### L [id number] ####Segmental Wall Installer: JAZLYN BRUCE ([id number])[facility])[address] [place] [address] IPF 4 Normal [facility] Comment on above: Performed By: #### L [id number] ####Segmental Wall Installer: JAZLYN BRUCE ([id number])[facility])[address] [place] [address] Lymphocytes (Bld) [#/Vol] 0.8 10*3/uL Low 1.0-4.3 [facility] Comment on above: Performed By: #### L [id number] ####Segmental Wall Installer: JAZLYN BRUCE ([id number])[facility])[address] [place] [address] Lymphocytes/100 WBC (Bld) 13.6 % Low 15.0-45.0 [facility] Comment on above: Performed By: #### L [id number] ####Segmental Wall Installer: JAZLYN BRUCE ([id number])[facility])[address] [place] [address] MCH (RBC) [Entitic mass] 30.6 pg Normal 26.0-34.0 [facility] Comment on above: Performed By: #### L [id number] ####Segmental Wall Installer: JAZLYN BRUCE ([id number])[facility])[address] [place] [address] MCHC 33.2 % Normal 30.5-36.0 [facility] Comment on above: Performed By: #### L [id number] ####Segmental Wall Installer: JAZLYN BRUCE ([id number])[facility])[address] [place] [address] MCV (RBC) [Entitic vol] 92.2 fL Normal 77.0-99.0 [facility] Comment on above: Performed By: #### L [id number] ####Segmental Wall Installer: JAZLYN BRUCE ([id number])[facility])[address] [place] [address] Monocytes (Bld) [#/Vol] 0.6 10*3/uL Normal 0.0-0.9 [facility] Comment on above: Performed By: #### L [id number] ####Segmental Wall Installer: JAZLYN BRUCE ([id number])[facility])[address] [place] [address] Monocytes/100 WBC (Bld) 10.5 % Normal 5.0-13.0 [facility] Comment on above: Performed By: #### L [id number] ####Segmental Wall Installer: JAZLYN BRUCE ([id number])[facility])[address] [place] [address] NEUTROPHILS ABSOLUTE 4.5 10*3/uL Normal 1.8-7.5 [facility] Comment on above: Performed By: #### L [id number] ####Segmental Wall Installer: JAZLYN BRUCE ([id number])[facility])[address] [place] [address] Neutrophils/100 WBC (Bld) 75.6 % Normal 38.0-82.0 [facility] Comment on above: Performed By: #### L [id number] ####Segmental Wall Installer: JAZLYN BRUCE ([id number])[facility] ([facility])[address] [place] [address] NRBC 0.0 /100 WBCs Normal 0.0-2.0 [facility] Comment on above: Performed By: #### L [id number] ####Segmental Wall Installer: JAZLYN BRUCE ([id number])[facility])[address] [place] [address] Platelet mean volume (Bld) [Entitic vol] 10.8 fL Normal 9.0-12.7 [facility] Comment on above: Performed By: #### L [id number] ####Segmental Wall Installer: JAZLYN BRUCE ([id number])[facility] ([facility])[address] [place] [address] Platelets (Bld) [#/Vol] 126 10*3/uL Low 140-440 [facility] Comment on above: Performed By: #### L [id number] ####Segmental Wall Installer: JAZLYN BRUCE ([id number])[facility] ([facility])[address] [place] [address] RBC (Bld) [#/Vol] 4.21 10*6/uL Low 4.40-5.90 [facility] Comment on above: Performed By: #### L [id number] ####Segmental Wall Installer: JAZLYN BRUCE ([id number])[facility])[address] [place] [address] WBC (Bld) [#/Vol] 6.0 10*3/uL Normal 3.6-10.7 [facility] Comment on above: Performed By: #### L [id number] ####Segmental Wall Installer: JAZLYN BRUCE ([id number])[facility] ([facility])[address] [place] [address] COMPREHENSIVE METABOLIC PANE Ken 03-16-2025 Albumin [Mass/Vol] 3.5 g/dL Normal 3.4-4.8 [facility] Comment on above: Performed By: #### Ricardo BAUTISTA, LAB17 ####Segmental Wall Installer: JAZLYN BRUCE ([id number])[facility] ([facility])[address] [place] [address] ALP [Catalytic activity/Vol] 67 U/L Normal 40-150 [facility] Comment on above: Performed By: #### Ricardo ABRicardo, LAB17 ####Segmental Wall Installer: JAZLYN BRUCE ([id number])[facility] ([facility])[address] [place] [address] ALT [Catalytic activity/Vol] 23 U/L Normal <40 [facility] Comment on above: Performed By: #### Ricardo BAUTISTA, LAB17 ####Segmental Wall Installer: JAZLYN BRUCE ([id number])[facility] ([facility])[address] [place] [address] Anion gap [Moles/Vol] 4 mmol/L Normal 3-13 [facility] Comment on above: Performed By: #### Ricardo BAUTISTA, LAB17 ####Segmental Wall Installer: JAZLYN BRUCE ([id number])[facility] ([facility])[address] [place] [address] AST [Catalytic activity/Vol] 26 U/L Normal <34 [facility] Comment on above: Performed By: #### Ricardo BAUTISTA, LAB17 ####Segmental Wall Installer: JAZLYN BRUCE ([id number])[facility] ([facility])[address] [place] [address] Bilirubin [Mass/Vol] 0.5 mg/dL Normal <1.2 [facility] Comment on above: Performed By: #### L AB99, LAB17 ####Segmental Wall Installer: JAZLYN BRUCE ([id number])[facility])[address] [place] [address] Calcium [Mass/Vol] 8.5 mg/dL Low 8.8-10.0 [facility] Comment on above: Performed By: #### L AB99, LAB17 ####Segmental Wall Installer: JAZLYN BRUCE ([id number])[facility] ([facility])[address] [place] [address] Chloride [Moles/Vol] 110 mmol/L High 98-107 [facility] Comment on above: Performed By: #### L AB99, LAB17 ####Segmental Wall Installer: JAZLYN BRUCE ([id number])[facility])[address] [place] [address] CO2 [Moles/Vol] 23 mmol/L Normal 23-31 [facility] Comment on above: Performed By: #### Ricardo BAUTISTA, LAB17 ####Segmental Wall Installer: JAZLYN BRUCE ([id number])[facility])[address] [place] [address] Creatinine [Mass/Vol] 0.78 mg/dL Normal 0.72-1.25 [facility] Comment on above: Performed By: #### Ricardo AB99, LAB17 ####Segmental Wall Installer: JAZLYN BRUCE ([id number])[facility] ([facility])[address] [place] [address] GLOMERULAR FILTRATION RATE ML/MIN/1.73 SQ M.PREDICTED >90.0 Normal >60.0 [facility] Comment on above: Result Comment: Calc ulation based on the Chronic Kidney Disease Epidemiology Collaboration (CKD-EPI) equation refit without adjustment for race Performed By: #### L AB99, LAB17 ####Segmental Wall Installer: JAZLYN BRUCE ([id number])[facility] ([facility])[address] [place] [address] Glucose [Mass/Vol] 100 mg/dL Normal 82-115 [facility] Comment on above: Performed By: #### L AB99, LAB17 ####Segmental Wall Installer: JAZLYN BRUCE ([id number])[facility])[address] [place] [address] Potassium [Moles/Vol] 3.8 mmol/L Normal 3.5-5.1 [facility] Comment on above: Result Comment: [facility] potassium values may be up to 0.5 mmol/L lower than serum values. Performed By: #### L AB99, LAB17 ####Segmental Wall Installer: JAZLYN BRUCE ([id number])[address] Protein [Mass/Vol] 6.5 g/dL Normal 6.4-8.3 [facility] Comment on above: Performed By: #### L AB99, LAB17 ####Segmental Wall Installer: JAZLYN BRUCE ([id number])[facility])[address] [place] [address] Sodium [Moles/Vol] 137 mmol/L Normal 136-145 [facility] Comment on above: Performed By: #### L AB99, LAB17 ####Segmental Wall Installer: JAZLYN BRUCE ([id number])[address] Urea nitrogen [Mass/Vol] 18 mg/dL Normal 9-23 [facility] Comment on above: Performed By: #### L AB99, LAB17 ####Segmental Wall Installer: JAZLYN BRUCE ([id number])[address] ABDOMEN PELVIS W CONTRAST on 03-16-2025 CT ABDOMEN PELVIS W CONTRAST Patient Name[facility] 1950 [id number] Exam Date/Time: 03/16/2025 07:45 Procedure: CT ABDOMEN [...] findings was made to JAMEEL BARRAZA via [employer] on 03/16/2025 8:35 AM EDT. Report Dictated on Electronically Signed By: Sebastian Díaz MD Electronically Signed Date/Time: 03/16/2025 8:35 AM EDT Chief complaints Abdominal Pain CT abdomen pelvis w contrast Abdominal pain, acute, nonlocalized Normal [facility] CT Abdomen and Pelvis W cont [...] findings was made to JAMEEL BARRAZA via [employer] on 03/16/2025 8:35 AM EDT. Report Dictated on Workstation: [employer] Electronically Signed By: Sebastian Díaz MD Electronically Signed Date/Time: 03/16/2025 8:35 AM EDT [employer] Patient Name: FRANCISCO RAMOS [facility] 1950 [id number] Exam Date/Time: 03/16/2025 07:45 Procedure: CT ABDOMEN [...] LYMPH NODES: Unremarkable. No enlarged lymph nodes. [facility] Sebastian Díaz MD - 03/16/2025 Patient Name: FRANCISCO RAMOS : 1950 [id number] Exam Date/Time: 03/16/2025 07:45 Procedure: CT ABDOMEN [...] findings was made to JAMEEL BARRAZA via [employer] on 03/16/2025 8:35 AM EDT. Report Dictated on Electronically Signed By: Sebastian Díaz MD Electronically Signed Date/Time: 03/16/2025 8:35 AM EDT [facility] Radiology Study observation (narrative) [facility] CT Abdomen and Pelvis W cont rast IVOrdered By: Sebastian Díza on 03-16-2025 [facility] Work Phone: Comprehensive metabolic 1998 panelon 03-16-2025 Albumin [Mass/Vol] 3.5 g/dL 3.4 - 4.8 g/dL [facility] ALP [Catalytic activity/Vol] 67 U/L 40 - 150 U/L [facility] ALT [Catalytic activity/Vol] 23 [facility] Anion gap [Moles/Vol] 4 mmol/L 3 - 13 mmol/L [facility] AST [Catalytic activity/Vol] 26 U/L [facility] U/L [facility] Bilirubin [Mass/Vol] 0.5 mg/dL NINF - 1.2 mg/dL [facility] Calcium [Mass/Vol] 8.5 mg/dL Low 8.8 - 10. 0 mg/dL [facility] Chloride [Moles/Vol] 110 mmol/L High 98 - 10 7 mmol/L [facility] CO2 [Moles/Vol] 23 mmol/L 23 - 31 mmol/L [facility] Creatinine [Mass/Vol] 0.78 mg/dL 0.72 - 1.25 mg/dL [facility] GFR/1.73 sq M.predicted (S/P/Bld) [Vol rate/Area] - PINF [facility] Comment on above: Calculation based on the Chronic Kidney Disease Epidemiology Collaboration (CKD-EPI) equation refit without adjustment for race Glucose [Mass/Vol] 100 mg/dL 82 - 115 mg/dL [facility] Interpretation and review of laboratory results Abnormal [facility] Potassium [Moles/Vol] 3.8 mmol/L 3.5 - 5.1 mmol/L [facility] Comment on above: Plasma potassium sia ues may be up to 0.5 mmol/L lower than serum values. Protein [Mass/Vol] 6.5 g/dL 6.4 - 8.3 g/dL [facility] Sodium [Moles/Vol] 137 mmol/L 136 - 145 mmol/L [facility] Urea nitrogen [Mass/Vol] 18 mg/dL 9 - 23 mg/d L [facility] ED Nursing Noteon 03-16-2025 ED Nursing Note Received report from JOSÉ LUIS Mujica Normal [facility] ED Provider Noteon ED Provider Note EMERGENCY DEPARTMENT ENCOUNTER Pt Name: Francisco Ramos Birthdate 1950 Date of evaluation: 03/16/2025 ED Provider: Jameel Barraza DO CHIEF COMPLAINT Chief Complaint Patient presents with Abdominal Pain Transfer from [facility] for Colonoscopy due to a twisted colon. Pt reports that his symptoms began a few hours ago. Denies any N/V/D. Pt is A&ox 3. Denies any other complaints at this time. HISTORY OF PRESENT ILLNESS (Location/Symptom, Timing/Onset, Context/Setting, Quality, Duration, Modifying Factors, Severity) Note limiting factors. I wore appropriate PPE for the entirety of this encounter. HPI Francsico Ramos is a 74 y.o. male pmhx Parkinson's disease, CAD, HLD, memory issues who presents to the emergency department by ED transfer from [facility] ED for abd pain. Workup at onset revealed sigmoid volvulus. Pt unable to remember [...] findings was made to JAMEEL BARRAZA via [employer] on 03/16/2025 8:35 AM EDT. [...] 67 ALBU (more content not included)... Normal [facility] Ketones Test strip Ql (U)Ord ered By: Brijesh Frederick on 03-16-2025 Ketones Ql (U) 5 mg/dl High Negative [facility] LACTIC ACID WITH REFLEXon Lactate [Moles/Vol] 0.6 mmol/L Normal 0.5-2.2 [facility] Comment on above: Performed By: #### L [id number] ####[employer] Installer: JAZLYN BRUCE ([id number])[facility] ([facility])[address] [place] [address] LIPASEon 03-16-2025 Lipase [Catalytic activity/Vol] 11 U/L Normal <55 [facility] Comment on above: Performed By: #### L [id number], [id number] ####Segmental Wall Installer: JAZLYN BRUCE ([id number])[facility] ([facility])[address] [place] [address] Laboratory - Chemistry and C hemistry - challengeon 03-16-2025 Lipase [Catalytic activity/Vol] 11 U/L NINF - 55 U/L [facility] Lactate [Moles/Vol] 0.6 mmol/L 0.5 - 2. 2 mmol/L [facility] Lactic Acidon 03-16-2025 Lactate [Moles/Vol] mmol/L Normal 0.0-2.0 [facility] Comment on above: Order Comment: Y Performed By: #### L [id number] #### [facility] Kallie [address]y. [place], [place], [id number] Lactic acid measurementOrder ed By: Brijesh Frederick on 03-16-2025 Lactate [Moles/Vol] mmol/L 0.0-2.0 [facility] Lipase [Catalytic activity/V ol]on 03-16-2025 Interpretation and review of laboratory results Normal [facility] Microscopic analysis of urin e for red blood cells (RBC)Ordered By: Brijesh Frederick on 03-16-2025 Microscopic analysis of urine for red blood cells (RBC) 0 SEEN /hpf 0-5 [facility] Mucus LM Ql (Urine sed)Order ed By: Brijesh Frederick on 03-16-2025 Mucus Ql (Urine sed) 0 SEEN /hpf [facility] Nitrite Test strip Ql (U)Ord ered By: Brijesh Frederick on 03-16-2025 Nitrite Ql (U) Negative Negative [facility] No Panel Informationon 03-16 [facility] Interpretation and review of laboratory results Normal [facility] Nursing Noteon 03-16-2025 Nursing Note Around 1830 patient chair alarm was going off, I responded and tried to assist patient back into the chair but patient was not properly responsive to my requests and began to get agitated even after I called his and had him speak with his over the phone. MARCELL Hayward came into the room to assist me [...] out as well. Nikki Aguilar RN supervisor operations was notified of the incident. Normal [facility] SHS Protein Test strip Ql (U)Ord ered By: Brijesh Frederick on 03-16-2025 Protein Ql (U) 30 mg/dl High Negative [facility] Squamous epithelial cells de tection in urine sediment by light microscopyOrdered By: Brijesh Frederick on 03-16-2025 Epithelial cells.squamous LM Ql (Urine sed) 0 SEEN /hpf 0-5 [facility] Urinalysis, Completeon 03-16 WBC 0-5 SEEN Normal 0-5 [facility] Comment on above: Order Comment: CLEAN CATCH Performed By: #### L 400.0001 ####[facility] [address] [place], [address] BILIRUBIN URINE Negative Normal Negative [facility] Comment on above: Order Comment: CLEAN CATCH Performed By: #### L 400.0001 ####[facility] [address] [place], [address] Clarity (U) Clear Normal Clear [facility] Comment on above: Order Comment: CLEAN CATCH Performed By: #### L 400.0001 ####[facility] [address] [place], [address] Color (U) Yellow Normal Yellow [facility] Comment on above: Order Comment: CLEAN CATCH Performed By: #### L 400.0001 ####[facility] [address] [place], [address] GLUCOSE, UR Normal Normal Normal [facility] Comment on above: Order Comment: CLEAN CATCH Performed By: #### L 400.0001 ####[facility] [address] [place], [address] KETONE UR 5 mg/dl Abnormal Negative [facility] Comment on above: Order Comment: CLEAN CATCH Performed By: #### L 400.0001 ####[facility] [address] [place], [address] LEUK ESTERASE Negative Normal Negative [facility] Comment on above: Order Comment: CLEAN CATCH Performed By: #### L 400.0001 ####[facility] [address] [place], [address] Nitrite Ql (U) Negative Normal Negative [facility] Comment on above: Order Comment: CLEAN CATCH Performed By: #### L 400.0001 ####[facility] [address] [place], [address] OCCULT BLOOD-UR Negative Normal Negative [facility] Comment on above: Order Comment: CLEAN CATCH Performed By: #### L 400.0001 ####[facility] [address] [place], [address] pH UR 7.0 Normal 5.0 - 8.0 [facility] Comment on above: Order Comment: CLEAN CATCH Performed By: #### L 400.0001 ####[facility] [address] [place], [address] PROT DIPSTX 30 mg/dl Abnormal Negative [facility] Comment on above: Order Comment: CLEAN CATCH Performed By: #### L 400.0001 ####[facility] [address] [place], [address] SP.GR. DIPSTX 1.010 Normal 1.002-1.030 [facility] Comment on above: Order Comment: CLEAN CATCH Performed By: #### L 400.0001 ####[facility] [address] [place], [address] UROBILI Normal Normal Normal [facility] Comment on above: Order Comment: CLEAN CATCH Performed By: #### L 400.0001 ####[facility] [address] [place], [address] BACTERIA 0 SEEN Normal None Seen [facility] Comment on above: Order Comment: CLEAN CATCH Performed By: #### L 400.0001 ####[facility] [address] [place], [address] EPI,SQUAMOUS 0 SEEN Normal 0-5 [facility] Comment on above: Order Comment: CLEAN CATCH Performed By: #### L 400.0001 ####[facility] [address] [place], [address] Mucus Ql (Urine sed) 0 SEEN Normal [facility] Comment on above: Order Comment: CLEAN CATCH Performed By: #### L 400.0001 ####[facility] [address] [place], [address] RBC 0 SEEN Normal 0-5 [facility] Comment on above: Order Comment: CLEAN CATCH Performed By: #### L 400.0001 ####[facility] [address] [place], [address] Urine clarityOrdered By: Maynor Frederick on 03-16-2025 Clarity (U) Clear Clear [facility] Urine color determinationOrd ered By: Brijesh Frederick on 03-16-2025 Color (U) Yellow Yellow [facility] Urine glucose detectionOrder ed By: Brijesh Frederick on 03-16-2025 Glucose Ql (U) Normal mg/dl Normal [facility] Urine leukocyte esterase det ection by dipstickOrdered By: Brijesh Frederick on 03-16-2025 Leukocyte esterase Test strip Ql (U) Negative Negative [facility] Urine pHOrdered By: Brijesh Blanco on 03-16-2025 pH (U) 7.0 [pH] 5.0 - 8.0 [facility] Urine sediment bacteria coun t by microscopy (number/high power field)Ordered By: Brijesh Frederick on 03-16-2025 Bacteria LM.HPF (Urine sed) [#/Area] 0 /[HPF] None Seen [facility] Urine specific gravity measu rementOrdered By: Brijesh Frederick on 03-16-2025 Specific gravity (U) [Rel density] 1.010 1.002-1.030 [facility] Urine urobilinogen measureme ntOrdered By: Brijesh Frederick on 03-16-2025 Urobilinogen Ql (U) Normal mg/dl Normal [facility] White blood cell countOrdere d By: Brijesh Frederick on 03-16-2025 White blood cell count 0-5 SEEN /hpf 0-5 [facility] XR ABDOMEN 2 VIEWS SUPINE [...] Electronically Signed Date/Time: 03/16/2025 12:[address] [facility] XR Abdomen Supine and Latera l-decubituson 03-16-2025 Radiology Study observation (narrative) [facility] alth Rectal tube placement. Improved sigmoid colon distention. Mildly dilated proximal colon, possibly ileus, with a moderate to large amount of colonic stool. Report Dictated on Electronically Signed By: Sebastian Díaz MD Electronically Signed Date/Time: 03/16/2025 12:53 PM EDT [facility] Patient Name: FRANCISCO RAMOS : 1950 [...] spine. The visualized lung bases are unremarkable. [facility] Sebastian Díaz MD - 03/16/2025 Patient [...] Electronically Signed Date/Time: 03/16/2025 12:53 PM EDT [facility] Abdomen/Pelvis W IV Cont ONL Yon 03-15-2025 Abdomen/Pelvis W IV Cont ONLY [facility] Imaging Services [address] [place] [address] Abdomen/Pelvis W IV Cont ONLY MR#: [id number] Acct: [id number] Name: FRANCISCO RAMOS Rep #: [id number] : 1950 M 74 From: Az Tejeda MD PCP: Dr. Ethan Avendano MD Status: REG ER Study: Abdomen/Pelvis W IV Cont ONLY Date of Exam: Exam# [id number] Ordering Dr: Brijesh Frederick DO PROCEDURE: ABDOMEN/PELVIS [...] if not recently performed. 3. Mild splenomegaly. [place] Alert: Sigmoid volvulus The critical information above was relayed directly by me by telephone to Brijesh Frederick on 03/15/2025 at 11:58 pm with readback verification. Reading Location: [id number] CC: Dr. Brijesh Frederick DO; Dr. Ethan Avendano MD Distributor Of Directories: Signed Normal [facility] Absolute lymphocyte countOrd ered By: Brijesh Frederick on 03-15-2025 Lymphocytes Auto (Unsp spec) [#/Vol] 0.69 10*3/uL Low 0.83-4.51 [facility] Absolute neutrophil countOrd ered By: Brijesh Frederick on 03-15-2025 Neutrophils (Bld) [#/Vol] 4.8 10*3/uL 2.0-7.7 [facility] Anion gap in Serum or Plasma Ordered By: Brijesh Frederick on 03-15-2025 Anion gap [Moles/Vol] 14 mmol/L 5-15 [facility] Automated lymphocyte count a s percentage of total leukocytesOrdered By: Brijesh Frederick on 03-15-2025 Lymphocytes/100 WBC Auto (Unsp spec) 11.6 % Low 19-41 [facility] BUN/creatinine ratioOrdered By: Brijesh Frederick on 03-15-2025 Urea nitrogen/Creatinine [Mass ratio] 23.2 mg/mg High 10-20 [facility] Basophil percentageOrdered B y: Brijesh Frederick on 03-15-2025 Basophils/100 WBC (Bld) 0.2 % 0-1 [facility] Bilirubin, totalOrdered By: Brijesh Frederick on 03-15-2025 Bilirubin [Mass/Vol] 0.51 mg/dL 0.00-1.30 [facility] CBC W/Diff, Automatedon 07-09 05-2024 Absolute Lymph 0.69 X10 3/uL Low 0.83-4.51 [facility] Comment on above: Performed By: #### L 100.0100, L500.4050, L501.2450 ####[facility] [address] [place], [address] Absolute Neut 4.8 X10 3/uL Normal 2.0-7.7 [facility] Comment on above: Performed By: #### L 100.0100, L500.4050, L501.2450 ####[facility] [address] [place], [address] Basophils/100 WBC (Bld) 0.2 % Normal 0-1 [facility] Comment on above: Performed By: #### L 100.0100, L500.4050, L501.2450 ####[facility] [address] [place], [address] Eosinophils/100 WBC (Bld) 0.0 % Normal 0-5 [facility] Comment on above: Performed By: #### L 100.0100, L500.4050, L501.2450 ####[facility] [address] [place], [address] Erythrocyte distribution width (RBC) [Ratio] 12.8 % Normal 11.6-14.6 [facility] Comment on above: Performed By: #### L 100.0100, L500.4050, L501.2450 ####[facility] [address] [place], [address] Hematocrit (Bld) [Volume fraction] 42.3 % Normal 40-54 [facility] Comment on above: Performed By: #### L 100.0100, L500.4050, L501.2450 ####[facility] [address] [place], [address] Hemoglobin (Bld) [Mass/Vol] 14.6 g/dL Normal 13.0-16.5 [facility] Comment on above: Performed By: #### L 100.0100, L500.4050, L501.2450 ####[facility] [address] [place], [address] IG% 0.500 Normal 0.0-0.9 [facility] Comment on above: Result Comment: IG% - Immature Granulocytes (promyelocytes, myelocytes and metamyelocytes) > 1% indicates that a LEFT SHIFT is Present. Performed By: #### L 100.0100, L500.4050, L501.2450 ####[facility] [address] [place], [address] Lymphocytes/100 WBC (Bld) 11.6 % Low 19-41 [facility] Comment on above: Performed By: #### L 100.0100, L500.4050, L501.2450 ####[facility] [address] [place], [address] MCH (RBC) [Entitic mass] 30.8 pg Normal 27.0-32.0 [facility] Comment on above: Performed By: #### L 100.0100, L500.4050, L501.2450 ####[facility] [address] [place], [address] MCHC (RBC) [Mass/Vol] 34.5 g/dL Normal 32-36 [facility] Comment on above: Performed By: #### L 100.0100, L500.4050, L501.2450 ####[facility] [address] [place], [address] MCV (RBC) [Entitic vol] 89.2 fL Normal 80-94 [facility] Comment on above: Performed By: #### L 100.0100, L500.4050, L501.2450 ####[facility] [address] [place], [address] Monocytes/100 WBC (Bld) 7.4 % Normal 0-10 [facility] Comment on above: Performed By: #### L 100.0100, L500.4050, L501.2450 ####[facility] [address] [place], [address] Neutrophils/100 WBC (Bld) 80.3 % High 47-70 [facility] Comment on above: Performed By: #### L 100.0100, L500.4050, L501.2450 ####[facility] [address] [place], [address] Nucleated RBC (Bld) [#/Vol] 0 10*3/uL Normal 0-5 [facility] Comment on above: Performed By: #### L 100.0100, L500.4050, L501.2450 ####[facility] [address] [place], [address] Platelet mean volume (Bld) [Entitic vol] 11.1 fL Normal 6.2-12.0 [facility] Comment on above: Performed By: #### L 100.0100, L500.4050, L501.2450 ####[facility] [address] [place], [address] Platelets (Bld) [#/Vol] 148 10*3/uL Low 150-450 [facility] Comment on above: Performed By: #### L 100.0100, L500.4050, L501.2450 ####[facility] [address] [place], [address] RBC (Bld) [#/Vol] 4.74 10*6/uL Normal 4.6-6.2 [facility] Comment on above: Performed By: #### L 100.0100, L500.4050, L501.2450 ####[facility] [address] [place], [address] RDW SD 41.8 fl Normal 35.1-43.9 [facility] Comment on above: Performed By: #### L 100.0100, L500.4050, L501.2450 ####[facility] [address] [place], [address] WBC (Bld) [#/Vol] 5.9 10*3/uL Normal 4.4-11.0 [facility] Comment on above: Performed By: #### L 100.0100, L500.4050, L501.2450 ####[facility] [address] [place], [address] Carbon dioxide, total [Moles /volume] in Central venous bloodOrdered By: Brijesh Frederick on 03-15-2025 CO2 [Moles/Vol] 24.2 mmol/L 21.0-32.0 [facility] Chloride assayOrdered By: Jake Frederick on 03-15-2025 Chloride [Moles/Vol] 101 mmol/L 98-108 [facility] Metabolic Prof ilon 03-15-2025 Albumin [Mass/Vol] 4.4 g/dL Normal 3.4-4.8 [facility] Comment on above: Performed By: #### L 100.0100, L500.4050, L501.2450 ####[facility] [address] [place], [address] Albumin/Globulin [Mass ratio] 1.6 {ratio} Normal 0.9-2.4 [facility] Comment on above: Performed By: #### L 100.0100, L500.4050, L501.2450 ####[facility] [address] [place], [address] ALK PHOS 84 U/L Normal 40-129 [facility] Comment on above: Performed By: #### L 100.0100, L500.4050, L501.2450 ####[facility] [address] [place], [address] ALT [Catalytic activity/Vol] 17 U/L Normal <=46 [facility] Comment on above: Performed By: #### L 100.0100, L500.4050, L501.2450 ####[facility] [address] [place], [address] AST [Catalytic activity/Vol] 26 U/L Normal <=37 [facility] Comment on above: Performed By: #### L 100.0100, L500.4050, L501.2450 ####[facility] [address], [address] Bilirubin [Mass/Vol] 0.51 mg/dL Normal 0.00-1.30 [facility] Comment on above: Performed By: #### L 100.0100, L500.4050, L501.2450 ####[facility] [address] [place], [address] BUN/CRE 23.2 RATIO High 10-20 [facility] Comment on above: Performed By: #### L 100.0100, L500.4050, L501.2450 ####[facility] [address], [address] Calcium [Mass/Vol] 9.8 mg/dL Normal 7.6-11.0 [facility] Comment on above: Performed By: #### L 100.0100, L500.4050, L501.2450 ####[facility] [address] [place], [address] Chloride [Moles/Vol] 101 mmol/L Normal 98-108 [facility] Comment on above: Performed By: #### L 100.0100, L500.4050, L501.2450 ####[facility] [address] [place], [address] CO2 [Moles/Vol] 24.2 mmol/L Normal 21.0-32.0 [facility] Comment on above: Performed By: #### L 100.0100, L500.4050, L501.2450 ####[facility] [address] [place], [address] Creatinine [Mass/Vol] 0.93 mg/dL Normal 0.70-1.20 [facility] Comment on above: Performed By: #### L 100.0100, L500.4050, L501.2450 ####[facility] [address] [place], [address] ECRCL 66.84 ml/min Normal 50-250 [facility] Comment on above: Performed By: #### L 100.0100, L500.4050, L501.2450 ####[facility] [address] [place], [address] GAP 14 Normal 5-15 [facility] Comment on above: Performed By: #### L 100.0100, L500.4050, L501.2450 ####[facility] [address] [place], [address] GFR/1.73 sq M.predicted among non-blacks MDRD (S/P/Bld) [Vol rate/Area] 88 mL/min/{1.73_m2} Normal >60 [facility] Comment on above: Result Comment: mL/m in/1.73m2 CKD-EPI Creatinine Equation (2020) Performed By: #### L 100.0100, L500.4050, L501.2450 ####[facility] [address] [place], [address] Globulin (S) [Mass/Vol] 2.8 g/dL Normal 2.2-4.2 [facility] Comment on above: Performed By: #### L 100.0100, L500.4050, L501.2450 ####[facility] [address] [place], [address] Glucose [Mass/Vol] 170 mg/dL High 70-99 [facility] Comment on above: Performed By: #### L 100.0100, L500.4050, L501.2450 ####[facility] [address] [place], [address] Potassium [Moles/Vol] 3.7 mmol/L Normal 3.3-5.1 [facility] Comment on above: Performed By: #### L 100.0100, L500.4050, L501.2450 ####[facility] [address] [place], [address] Sodium [Moles/Vol] 139 mmol/L Normal 133-145 [facility] Comment on above: Performed By: #### L 100.0100, L500.4050, L501.2450 ####[facility] [address] [place], [address] T PROT 7.2 g/dL Normal 5.9-8.4 [facility] Comment on above: Performed By: #### L 100.0100, L500.4050, L501.2450 ####[facility] [address] [place], [address] Urea nitrogen [Mass/Vol] 22 mg/dL High 4-19 [facility] Comment on above: Performed By: #### L 100.0100, L500.4050, L501.2450 ####[facility] [address] [place], [address] Emergency Department Summary on 03-15-2025 Emergency Department Summary [facility] [address] [place] [address] Emergency Department Summary 03/15/25 MR#: [id number] Acct: [id number] Name: FRANCISCO RAMOS Rep #: [id number] : 1950 74 From: Brijesh Frederick DO [...] intact Psych: Cooperative, appropriate mood and affect [facility] Medical History Tortuous colon Wears glasses Arthritis High cholesterol Easy bruising Back pain Non-smoker History of pain when walking History of echocardiogram History of stress test Cardiology follow-up encounter Parkinson disease Atherosclerosis of coronary artery of [place] heart without angina pectoris Hyperlipidemia Common variable immunodeficiency Benign prostate hyperplasia Basal cell carcinoma of left ear Home Medications ???Medication ???Instructions ???Recorded ???Last Taken ???Type multivitamin with folic acid 400 1 tab PO DAILY 06/10/13 08/22/24 H istory mcg tablet folic acid 400 mcg tablet 1 tab PO DAILY 12/24/13 08/19/24 H istory immune glob,gamma(IgG) 10 20 g .Route .[id number] 03/04/19 12/01/25 History dnsm-mhp-dubm-IgA 0 to 50 mcg/mL IV solution nitroglycerin 0.4 mg sublingual 0.4 mg sublingual Q5-15M PRN chest 04/03/19 Unknown Rx tablet pain #25 tabs ibuprofen 600 mg tablet 600 mg PO Q6H PRN pain #20 tabs 08/22/24 Rx aspirin 81 mg tablet,delayed 81 mg [...] Room Air (more content not included)... Normal [facility] Eosinophil percentageOrdered By: Brijesh Frederick on 03-15-2025 Eosinophils/100 WBC (Bld) 0.0 % 0-5 [facility] Erythrocyte distribution wid th ratioOrdered By: [place] Yoly on 03-15-2025 Erythrocyte distribution width (RBC) [Ratio] 12.8 % 11.6-14.6 [facility] Erythrocyte distribution wid th standard deviationOrdered By: Brijesh Armand Manjarrez on 03-15-2025 Erythrocyte distribution width (RBC) [Ratio] 41.8 fl 35.1-43.9 [facility] Glomerular filtration rate ( GFR) estimation/1.73 sq m using serum, plasma, or whole bOrdered By: Brijesh Frederick on 03-15-2025 GFR/1.73 sq M.predicted among non-blacks MDRD (S/P/Bld) [Vol rate/Area] 88 mL/min/{1.73_m2} >60 [facility] Comment on above: mL/min/1.73m2 CKD-EP I Creatinine Equation (2020) Hematocrit Auto (Bld) [Volum e fraction]Ordered By: Brijesh Frederick on 03-15-2025 Hematocrit (Bld) [Volume fraction] 42.3 % 40-54 [facility] Hemoglobin measurementOrdere d By: Brijesh Frederick on 03-15-2025 Hemoglobin (Bld) [Mass/Vol] 14.6 g/dL 13.0-16.5 [facility] Immature granulocytes/100 WB C Auto (Bld)Ordered By: Brijesh Frederick on 03-15-2025 Immature granulocytes/100 WBC (Bld) 0.500 % 0.0-0.9 [facility] Comment on above: IG% - Immature Granu locytes (promyelocytes, myelocytes and metamyelocytes) > 1% indicates that a LEFT SHIFT is Present. Laboratory - Chemistry and C hemistry - challengeOrdered By: Brijesh Frederick on 03-15-2025 AST [Catalytic activity/Vol] 26 U/L <38 [facility] Lipaseon 03-15-2025 Lipase [Catalytic activity/Vol] 20 U/L Normal 13-75 [facility] [facility] Comment on above: Result Comment: Tejas lassiter note: LIPASE revised reference range effective 22. New Lipase methodology. Expected to produce lower values than the previous assay method. NEW Reference Range: 13 - 75 U/L Performed By: #### L 100.0100, L500.4050, L501.2450 ####[facility] [address] [place], [address] Lipase measurementOrdered By : Brijesh Frederick on 03-15-2025 Lipase [Catalytic activity/Vol] 20 U/L 13-75 [facility] Comment on above: Please note:LIPASE r evised reference range effective 22. New Lipase methodology. Expected to produce lower values than the previous assay method. NEW Reference Range: 13 - 75 U/L MCV (mean corpuscular volume ) determinationOrdered By: Brijesh Frederick on 03-15-2025 MCV (RBC) [Entitic vol] 89.2 fL 80-94 [facility] Mean corpuscular hemoglobin (MCH) determinationOrdered By: Brijesh Frederick on 03-15-2025 MCH (RBC) [Entitic mass] 30.8 pg 27.0-32.0 [facility] Mean corpuscular hemoglobin concentration (MCHC) determinationOrdered By: Brijesh Frederick on 03-15-2025 MCHC (RBC) [Mass/Vol] 34.5 g/dL 32-36 [facility] Mean platelet volume determi nationOrdered By: Brijesh Frederick on 03-15-2025 Platelet mean volume (Bld) [Entitic vol] 11.1 fL 6.2-12.0 [facility] Monocyte percentageOrdered B y: Brijesh Frederick on 03-15-2025 Monocytes/100 WBC (Bld) 7.4 % 0-10 [facility] Neutrophil percentageOrdered By: Brijesh Frederick on 03-15-2025 Neutrophils/100 WBC (Bld) 80.3 % High 47-70 [facility] Nucleated red blood cell per centageOrdered By: Brijesh Frederick on 03-15-2025 Nucleated RBC/100 WBC (Bld) [Ratio] 0 % 0-5 [facility] Platelet countOrdered By: Jake Frederick on 03-15-2025 Platelets (Bld) [#/Vol] 148 10*3/uL Low 150-450 [facility] Potassium measurement (mass/ volume)Ordered By: Brijesh Frederick on 03-15-2025 Potassium (Unsp spec) [Mass/Vol] 3.7 mmol/L 3.3-5.1 [facility] RBC Auto (Bld) [#/Vol]Ordere d By: Brijesh Frederick on 03-15-2025 RBC (Bld) [#/Vol] 4.74 10*6/uL 4.6-6.2 [facility] Serum creatinine measurement (mass/volume)Ordered By: Brijesh Ferderick on 03-15-2025 Creatinine [Mass/Vol] 0.93 mg/dL 0.70-1.20 [facility] Serum globulin measurementOr dered By: Brijesh Frederick on 03-15-2025 Globulin (S) [Mass/Vol] 2.8 g/dL 2.2-4.2 [facility] Serum glucose measurement (m ass/volume)Ordered By: Brijesh Frederick on 03-15-2025 Glucose [Mass/Vol] 170 mg/dL High 70-99 [facility] Serum or plasma alanine garcia otransferase (ALT) measurementOrdered By: Brijesh Frederick on 03-15-2025 ALT [Catalytic activity/Vol] 17 U/L <47 [facility] Serum or plasma albumin john urement (mass/volume)Ordered By: Brijesh Manjarrez on 03-15-2025 Albumin [Mass/Vol] 4.4 g/dL 3.4-4.8 [facility] Serum or plasma albumin/glob ulin mass ratioOrdered By: Brijesh Frederick on 03-15-2025 Albumin/Globulin [Mass ratio] 1.6 {ratio} 0.9-2.4 [facility] Serum or plasma alkaline dylon sphatase measurementOrdered By: Brijesh Frederick on 03-15-2025 ALP [Catalytic activity/Vol] 84 U/L 40-129 [facility] Serum or plasma calcium john urement (mass/volume)Ordered By: Brijesh Manjarrez on 03-15-2025 Calcium [Mass/Vol] 9.8 mg/dL 7.6-11.0 [facility] Serum or plasma urea nitroge n measurement (mass/volume)Ordered By: Brijesh Frederick on 03-15-2025 Urea nitrogen [Mass/Vol] 22 mg/dL High 4-19 [facility] Sodium levelOrdered By: Gordon Frederick on 03-15-2025 Sodium [Moles/Vol] 139 mmol/L 133-145 [facility] Total proteinOrdered By: Maynor Frederick on 03-15-2025 Protein [Mass/Vol] 7.2 g/dL 5.9-8.4 [facility] White blood cell (WBC) count Ordered By: Brijesh Frederick on 03-15-2025 WBC (Bld) [#/Vol] 5.9 10*3/uL 4.4-11.0 [facility] PT D/C Summary (1)on 025 PT D/C Summary (1) [facility] Physical Therapy [address] [place] [address] / REHABILITATION SERVICES DISCHARGE SUMMARY MR#: [id number] Acct: [id number] Name: FRANCISCO RAMOS Rep #: [id number] : 1950 74 From: Mojgan Gonzalez MPT Referring Dr.: KIM Mendenhall Status: REG RCR Insurance: MEDICARE PART A B 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 He was on the [...] please feel free to call me at [phone]. Thank you for the referral of this patient. Sincerely, Mojgan Gonzalez, MPT Balance/Gait/Functio nal tests Balance/Special Test Scores Functional Gait Assessment Score: 25 % Disability: 16.6700 CATSIB Score (Max score 120 seconds): 120 Lower Extremity Functional Score: 44 Improvement % Improvement: 15 01/06/25 1506 CC: Dr. Ethan Avendano MD; KIM Mendenhall Signed Normal [facility] T4 Free Directon 12-25-2024 T4 FREE DIRECT 0.90 ng/dL Normal 0.76-1.46 [facility] Comment on above: Performed By: #### L 506.0400 #### [facility] Laboratory [address] [place], [address] T4 freeOrdered By: Ethan cheng on 12-25-2024 Free T4 [Mass/Vol] 0.90 ng/dL 0.76-1.46 [facility] Carotid Duplex Ultrasoundon 12-17-2024 Carotid Duplex Ultrasound [facility] [address] [place] [address] Carotid Duplex Ultrasound 12/17/24 1358 MR#: [id number] Acct: [id number] Name: FRANCISCO RAMOS Rep #: [id number] : 1950 74 From: Marcio Newell MD Attending Dr: Dr. Demian Ramsay MD Status: REG C Ordering Dr: Demian Ramsay MD Date: 12/17/24 Location: [facility] Sex: M C Admitted: Reason For [...] the left vertebral artery. Procedure Carotid Duplex 98507. This is a Carotid Duplex examination using B-mode, color flow and specral Doppler. Exam performed in department. VL/Carotid Duplex Ultrasound Interpretation Summary Moderate (50-69%) stenosis right extracranial internal carotid. Mild (<50%) stenosis left extracranial internal carotid. Flow within the vertebral arteries is antegrade bilaterally. Ordering Physician: Demian Ramsay Referring Physician: Ethan Avendano Performed By: Lisa Kohler, EMANUEL, RVT 12/17/24 1839 Date Marcio Newell MD CC: Dr. Demian Ramsay MD; Dr. Ethan Avendano MD Date Dictated: 12/17/24 135 Date Transcribed: 12/17/24 1839 Distributor Of Directories: Signed Normal [facility] Duplex ultrasound of carotid artery reportOrdered By: Marcio Newell on 12-17-2024 Study report [facility] Cardiovascular Services [address] [place] [address] Carotid Duplex Ultrasound 12/17/24 1358 MR#: [id number] Acct: [id number] Name: FRANCISCO RAMOS Rep #:[id number] : 1950 74 From: Marcio Newell MD Attending Dr: Dr. Demian Ramsay MD S tatus: REG CLI Ordering Dr: Demian Ramsay MD Date: Location: [facility] Sex: M C Admitted: Reason For Study Reason For Study: BRUIT Rt. Velocities/BP Lt. Velocities/BP Prox CCA 107.2/13.9 cm/sec. Prox CCA 142.3/23.6 cm/sec. Mid CCA 74.4/13.0 cm/sec. Mid ERL363.8/19.9 cm/sec. Dist CCA 65.8/10.6 cm/sec. Dist CCA 91.1/19.9 cm/sec. Prox ICA 177.7/31.6 cm/sec. Prox ICA 129.5/10.8 cm/sec. Mid ICA 134.4/19.4 cm/sec. Mid CMF200.8/19.9 cm/sec. Dist ICA 125.3/28.5 cm/sec. Dist ICA [...] the left vertebral artery. Procedure Carotid Duplex 24157. This is a Carotid Duplex examination using B-mode, color flow and specral Doppler. Exam performed in department. VL/Carotid Duplex Ultrasound Interpretation Summary Moderate (50-69%) stenosis right extracranial internal carotid. Mild (<50%) stenosis left extracranial internal carotid. Flow within the vertebral arteries is antegrade bilaterally. Ordering Physician: Demian Ramsay Referring Physician: Ethan Avendano Performed By: Lisa Kohler RDCS, RVT 12/17/241838 Date _ Marcio Newell MD CC: Dr. Demian Ramsay MD; Dr. Ethan Avendano MD ~ Date Dictated: 12/17/24 1358 Date Transcribed: 12/17/241838 Distributor Of Directories: Signed [facility] Other Inital Evaluation (1) - PTon 12-04-2024 Inital Evaluation (1) - PT [facility] Physical Therapy [facility] [address] [place] [address] [address] [place] [address] / REHABILITATION SERVICES INITIAL EVALUATION MR#: [id number] Acct: [id number] Name: FRANCISCO RAMOS Rep #: [id number] : 1950 74 From: Mojgan DC Referring Dr.: Sandra Joaquin Status: REG RCR Insurance: MEDICARE PART A B [facility] Patient's Visit Information Visit Information Visit Information: [...] 8 years ago with PD. He take [employer] classes here (2 yoga classes, Mellisa) for [...] of care (more content not included)... Normal [facility] Cardiology Visit Reporton Cardiology Visit Report [facility] [address] [place] [address] OFFICE VISIT Date of Service: 11/28/24 MR#: [id number] Acct: [id number] Name: FRANCISCO RAMOS Rep #: [id number] : 1950 Provider: Dr. 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 Accompanied by: Significant Other Is patient in pain?: No Allergies No Known Allergies Allergy (Verified 11/28/24 10:54) Medications ???Medication ???Instructions ???Recorded ???Confirmed ???Type multivitamin with folic acid 400 1 tab PO DAILY 06/10/13 11/28/24 H istory mcg tablet folic acid 400 mcg tablet 1 tab PO DAILY 12/24/13 11/28/24 H istory immune glob,gamma(IgG) 10 20 g .Route .[id number] 03/04/1911/03 History zhdr-zxk-jier-IgA 0 to 50 mcg/mL IV solution nitroglycerin [...] you fallen in the past year?: Yes [facility] Medical History Tortuous colon Wears glasses Arthritis High cholesterol Easy bruising Back pain Non-smoker History of pain when walking History of echocardiogram History of stress test Cardiology follow-up encounter Parkinson disease Atherosclerosis of coronary artery of [place] heart without angina pectoris Hyperlipidemia Common variable [...] lying d (more content not included)... Normal [facility] T4 Free Directon 10-31-2024 T4 FREE DIRECT 0.90 ng/dL Normal 0.76-1.46 [facility] Comment on above: Order Comment: Order Date: 10/29/24 Order Info: 0786-1 - CMP Order Info: 3016-3 - TSH Order Info: 2288 - FOLS Performed By: #### L 506.0400, L503.0106 #### [facility] Laboratory [address] [place], [place], [address] Comprehensive Metabolic Prof ilon 10-30-2024 Albumin [Mass/Vol] 4.3 g/dL Normal 3.4-4.8 [facility] Comment on above: Order Comment: Order Date: 10/29/24Order Info: 0786-1 - CMPOrder Info: 3016-3 - TSHOrder Info: 2288 - FOLS Performed By: #### L 506.0250, L501.9520, L501.9985, L100.0100, L500.4050 ####[facility] [address] [place], [address] Albumin/Globulin [Mass ratio] 1.8 {ratio} Normal 0.9-2.4 [facility] Comment on above: Order Comment: Order Date: 10/29/24Order Info: 0786-1 - CMPOrder Info: 3015-11 - TSHOrder Info: 228-8 - FOLS Performed By: #### L 506.0250, L501.9520, L501.9985, L100.0100, L500.4050 ####[facility] [address] [place], [address] ALK PHOS 63 U/L Normal 40-129 [facility] Comment on above: Order Comment: Order Date: 10/29/24Order Info: 0786-1 - CMPOrder Info: 3015-11 - TSHOrder Info: 8 - FOLS Performed By: #### L 506.0250, L501.9520, L501.9985, L100.0100, L500.4050 ####[facility] [address] [place], [address] ALT [Catalytic activity/Vol] 31 U/L Normal <=46 [facility] Comment on above: Order Comment: Order Date: 10/29/24Order Info: 0786-1 - CMPOrder Info: 3015-11 - TSHOrder Info: 2283-8 - FOLS Performed By: #### L 506.0250, L501.9520, L501.9985, L100.0100, L500.4050 ####[facility] [address] [place], [address] Anion gap [Moles/Vol] 11 mmol/L Normal 5-15 [facility] Comment on above: Order Comment: Order Date: 10/29/24Order Info: 0786-1 - CMPOrder Info: 3015-11 - TSHOrder Info: 2288 - FOLS Performed By: #### L 506.0250, L501.9520, L501.9985, L100.0100, L500.4050 ####[facility] [address] [place], [address] AST [Catalytic activity/Vol] 35 U/L Normal <=37 [facility] Comment on above: Order Comment: Order Date: 10/29/24Order Info: 0786-1 - CMPOrder Info: 3 - TSHOrder Info: 2284-8 - FOLS Performed By: #### L 506.0250, L501.9520, L501.9985, L100.0100, L500.4050 ####[facility] [address] [place], [address] Bilirubin [Mass/Vol] 0.52 mg/dL Normal 0.00-1.30 [facility] Comment on above: Order Comment: Order Date: 10/29/24Order Info: 0786-1 - CMPOrder Info: 3 - TSHOrder Info: 2284-8 - FOLS Performed By: #### L 506.0250, L501.9520, L501.9985, L100.0100, L500.4050 ####[facility] [address] [place], [address] BUN/CRE 16.3 RATIO Normal 10-20 [facility] Comment on above: Order Comment: Order Date: 10/29/24Order Info: 0786-1 - CMPOrder Info: 3015-3 - TSHOrder Info: 2284-8 - FOLS Performed By: #### L 506.0250, L501.9520, L501.9985, L100.0100, L500.4050 ####[facility] [address], [address] Calcium [Mass/Vol] 9.6 mg/dL Normal 7.6-11.0 [facility] Comment on above: Order Comment: Order Date: 10/29/24Order Info: 0786-1 - CMPOrder Info: 3015-11 - TSHOrder Info: 2284-04 - FOLS Performed By: #### L 506.0250, L501.9520, L501.9985, L100.0100, L500.4050 ####[facility] [address] [place], [address] Chloride [Moles/Vol] 102 mmol/L Normal 96-108 [facility] Comment on above: Order Comment: Order Date: 10/29/24Order Info: 0786-1 - CMPOrder Info: 3015-11 - TSHOrder Info: 2284-04 - FOLS Performed By: #### L 506.0250, L501.9520, L501.9985, L100.0100, L500.4050 ####[facility] [address] [place], [address] CO2 [Moles/Vol] 25.1 mmol/L Normal 22.0-29.0 [facility] Comment on above: Order Comment: Order Date: 10/29/24Order Info: 07- - CMPOrder Info: 3015-11 - TSHOrder Info: 2284-04 - FOLS Performed By: #### L 506.0250, L501.9520, L501.9985, L100.0100, L500.4050 ####[facility] [address] [place], [address] Creatinine [Mass/Vol] 1.0 mg/dL Normal 0.8-1.3 [facility] Comment on above: Order Comment: Order Date: 10/29/24Order Info: 07-1 - CMPOrder Info: 3015-11 - TSHOrder Info: 2284-04 - FOLS Performed By: #### L 506.0250, L501.9520, L501.9985, L100.0100, L500.4050 ####[facility] [address] [place], [address] GFR/1.73 sq M.predicted among non-blacks MDRD (S/P/Bld) [Vol rate/Area] 86 mL/min/{1.73_m2} Normal >60 [facility] Comment on above: Order Comment: Order Date: 10/29/24Order Info: 0786-1 - CMPOrder Info: 3015-3 - TSHOrder Info: 2283-8 - FOLS Result Comment: mL/m in/1.73m2 CKD-EPI Creatinine Equation (2020) Performed By: #### L 506.0250, L501.9520, L501.9985, L100.0100, L500.4050 ####[facility] [address] [place], [address] Globulin (S) [Mass/Vol] 2.4 g/dL Normal 2.2-4.2 [facility] Comment on above: Order Comment: Order Date: 10/29/24Order Info: 785- - CMPOrder Info: 3015-11 - TSHOrder Info: 2283-8 - FOLS Performed By: #### L 506.0250, L501.9520, L501.9985, L100.0100, L500.4050 ####[facility] [address] [place], [address] Glucose [Mass/Vol] 80 mg/dL Normal 70-99 [facility] Comment on above: Order Comment: Order Date: 10/29/24Order Info: 0786- - CMPOrder Info: 3015-11 - TSHOrder Info: 2283-8 - FOLS Performed By: #### L 506.0250, L501.9520, L501.9985, L100.0100, L500.4050 ####[facility] [address] [place], [address] Potassium [Moles/Vol] 4.5 mmol/L Normal 3.3-5.1 [facility] Comment on above: Order Comment: Order Date: 10/29/24Order Info: 0786-1 - CMPOrder Info: 3015-11 - TSHOrder Info: 2284-8 - FOLS Performed By: #### L 506.0250, L501.9520, L501.9985, L100.0100, L500.4050 ####[facility] [address] [place], [address] Sodium [Moles/Vol] 138 mmol/L Normal 133-145 [facility] Comment on above: Order Comment: Order Date: 10/29/24Order Info: 0786-1 - CMPOrder Info: 6-3 - TSHOrder Info: 2284-8 - FOLS Performed By: #### L 506.0250, L501.9520, L501.9985, L100.0100, L500.4050 ####[facility] [address] [place], [address] T PROT 6.7 g/dL Normal 5.9-8.4 [facility] Comment on above: Order Comment: Order Date: 10/29/24Order Info: 0786-1 - CMPOrder Info: 6-3 - TSHOrder Info: 2284-8 - FOLS Performed By: #### L 506.0250, L501.9520, L501.9985, L100.0100, L500.4050 ####[facility] [address] [place], [address] Urea nitrogen [Mass/Vol] 15 mg/dL Normal 4-19 [facility] Comment on above: Order Comment: Order Date: 10/29/24Order Info: 0786-1 - CMPOrder Info: 6-3 - TSHOrder Info: 2284-8 - FOLS Performed By: #### L 506.0250, L501.9520, L501.9985, L100.0100, L500.4050 ####[facility] [address] [place], [address] Folates, (Folic Acid)on 10-06 FOLATES 32.00 ng/mL Normal 4.60-34.80 [facility] Comment on above: Order Comment: Order Date: 10/29/24Order Info: 0786-1 - CMPOrder Info: 6-3 - TSHOrder Info: 2284-04 - FOLSN Result Comment: Hemo lysis, Results will be affected, Requires Recollection. Performed By: #### L 506.0250, L501.9520, L501.9985, L100.0100, L500.4050 ####[facility] [address] [place], [address] Hemoglobin A1con 10-30-2024 HbA1c (Bld) [Mass fraction] 5.8 % Normal <=5.6 [facility] Comment on above: Order Comment: Order Date: 10/29/24Order Info: 4548-4 - A1C Performed By: #### L 506.0250, L501.9520, L501.9985, L100.0100, L500.4050 ####[facility] [address] [place], [address] L503.0106on 10-30-2024 Cobalamin (Vitamin B12) [Mass/Vol] 555 pg/mL Normal 180-914 [facility] Comment on above: Order Comment: Order Date: 10/29/24 Order Info: 0786-1 - CMP Order Info: 3 - TSH Order Info: 2284-04 - FOLS Performed By: #### L 506.0400, L503.0106 #### [facility] Laboratory [address] [place], [address] Thyroid Stim Hormone (TSH)on 10-30-2024 TSH 6.000 uIU/mL High 0.300-4.200 [facility] Comment on above: Order Comment: Order Date: 10/29/24Order Info: 0786-1 - CMPOrder Info: 3 - TSHOrder Info: 2284-04 - FOLS Performed By: #### L 506.0250, L501.9520, L501.9985, L100.0100, L500.4050 ####[facility] [address] [place], [place], [address] Absolute lymphocyte countOrd ered By: Ehtan Avendano on 10-29-2024 Lymphocytes Auto (Unsp spec) [#/Vol] 0.90 10*3/uL 0.83-4.51 [facility] Absolute neutrophil countOrd ered By: Ethan Avendano on 10-29-2024 Neutrophils (Bld) [#/Vol] 3.2 10*3/uL 2.0-7.7 [facility] Automated lymphocyte count a s percentage of total leukocytesOrdered By: Ethan Avendano on 10-29-2024 Lymphocytes/100 WBC Auto (Unsp spec) 19.3 % - [facility] BUN/creatinine ratioOrdered By: Ethan Avendano on 10-29-2024 Urea nitrogen/Creatinine [Mass ratio] 16.3 mg/mg 10- [facility] Basophil percentageOrdered B y: Ethan Avendano on 10-29-2024 Basophils/100 WBC (Bld) 0.2 % 0- [facility] Bilirubin, totalOrdered By: Ethan Avendano on 10-29-2024 Bilirubin [Mass/Vol] 0.52 mg/dL 0.00-1.30 [facility] CBC W/Diff, Automatedon 10-06 Absolute Lymph 0.90 X10 3/uL Normal 0.83-4.51 [facility] Comment on above: Order Comment: Order Date: 10/29/24Order Info: 0184-1 - CBCD Performed By: #### L 506.0250, L501.9520, L501.9985, L100.0100, L500.4050 ####[facility] [address] [place], [place], [address] Absolute Neut 3.2 X10 3/uL Normal 2.0-7.7 [facility] Comment on above: Order Comment: Order Date: 10/29/24Order Info: 0184-1 - CBCD Performed By: #### L 506.0250, L501.9520, L501.9985, L100.0100, L500.4050 ####[facility] [address] [place], [address] Basophils/100 WBC (Bld) 0.2 % Normal 0-1 [facility] Comment on above: Order Comment: Order Date: 10/29/24Order Info: 0184-1 - CBCD Performed By: #### L 506.0250, L501.9520, L501.9985, L100.0100, L500.4050 ####[facility] [address] [place], [address] Eosinophils/100 WBC (Bld) 0.0 % Normal 0-5 [facility] Comment on above: Order Comment: Order Date: 10/29/24Order Info: 0184-1 - CBCD Performed By: #### L 506.0250, L501.9520, L501.9985, L100.0100, L500.4050 ####[facility] [address] [place], [address] Erythrocyte distribution width (RBC) [Ratio] 12.9 % Normal 11.6-14.6 [facility] Comment on above: Order Comment: Order Date: 10/29/24Order Info: 0184-1 - CBCD Performed By: #### L 506.0250, L501.9520, L501.9985, L100.0100, L500.4050 ####[facility] [address] [place], [address] Hematocrit (Bld) [Volume fraction] 41.1 % Normal 40-54 [facility] Comment on above: Order Comment: Order Date: 10/29/24Order Info: 0184-1 - CBCD Performed By: #### L 506.0250, L501.9520, L501.9985, L100.0100, L500.4050 ####[facility] [address] [place], [address] Hemoglobin (Bld) [Mass/Vol] 13.7 g/dL Normal 13.0-16.5 [facility] Comment on above: Order Comment: Order Date: 10/29/24Order Info: 0184-1 - CBCD Performed By: #### L 506.0250, L501.9520, L501.9985, L100.0100, L500.4050 ####[facility] [address] [place], [address] IG% 0.400 Normal 0.0-0.9 [facility] Comment on above: Order Comment: Order Date: 10/29/24Order Info: 0184-1 - CBCD Result Comment: IG% - Immature Granulocytes (promyelocytes, myelocytes and metamyelocytes) > 1% indicates that a LEFT SHIFT is Present. Performed By: #### L 506.0250, L501.9520, L501.9985, L100.0100, L500.4050 ####[facility] [address] [place], [address] Lymphocytes/100 WBC (Bld) 19.3 % Normal 19-41 [facility] Comment on above: Order Comment: Order Date: 10/29/24Order Info: 0184-1 - CBCD Performed By: #### L 506.0250, L501.9520, L501.9985, L100.0100, L500.4050 ####[facility] [address] [place], [address] MCH (RBC) [Entitic mass] 30.5 pg Normal 27.0-32.0 [facility] Comment on above: Order Comment: Order Date: 10/29/24Order Info: 0184-1 - CBCD Performed By: #### L 506.0250, L501.9520, L501.9985, L100.0100, L500.4050 ####[facility] [address] [place], [address] MCHC (RBC) [Mass/Vol] 33.3 g/dL Normal 32-36 [facility] Comment on above: Order Comment: Order Date: 10/29/24Order Info: 0184-1 - CBCD Performed By: #### L 506.0250, L501.9520, L501.9985, L100.0100, L500.4050 ####[facility] [address] [place], [address] MCV (RBC) [Entitic vol] 91.5 fL Normal 80-94 [facility] Comment on above: Order Comment: Order Date: 10/29/24Order Info: 0184-1 - CBCD Performed By: #### L 506.0250, L501.9520, L501.9985, L100.0100, L500.4050 ####[facility] [address] [place], [address] Monocytes/100 WBC (Bld) 10.7 % High 0-10 [facility] Comment on above: Order Comment: Order Date: 10/29/24Order Info: 0184-1 - CBCD Performed By: #### L 506.0250, L501.9520, L501.9985, L100.0100, L500.4050 ####[facility] [address] [place], [address] Neutrophils/100 WBC (Bld) 69.4 % Normal 47-70 [facility] Comment on above: Order Comment: Order Date: 10/29/24Order Info: 0184-1 - CBCD Performed By: #### L 506.0250, L501.9520, L501.9985, L100.0100, L500.4050 ####[facility] [address] [place], [address] Nucleated RBC (Bld) [#/Vol] 0 10*3/uL Normal 0-5 [facility] Comment on above: Order Comment: Order Date: 10/29/24Order Info: 0184-1 - CBCD Performed By: #### L 506.0250, L501.9520, L501.9985, L100.0100, L500.4050 ####[facility] [address] [place], [address] Platelet mean volume (Bld) [Entitic vol] 11.4 fL Normal 6.2-12.0 [facility] Comment on above: Order Comment: Order Date: 10/29/24Order Info: 0184-1 - CBCD Performed By: #### L 506.0250, L501.9520, L501.9985, L100.0100, L500.4050 ####[facility] [address] [place], [address] Platelets (Bld) [#/Vol] 126 10*3/uL Low 150-450 [facility] Comment on above: Order Comment: Order Date: 10/29/24Order Info: 018- - CBCD Performed By: #### L 506.0250, L501.9520, L501.9985, L100.0100, L500.4050 ####[facility] [address] [place], [address] RBC (Bld) [#/Vol] 4.49 10*6/uL Low 4.6-6.2 [facility] Comment on above: Order Comment: Order Date: 10/29/24Order Info: 0184- - CBCD Performed By: #### L 506.0250, L501.9520, L501.9985, L100.0100, L500.4050 ####[facility] [address] [place], [address] RDW SD 42.5 fl Normal 35.1-43.9 [facility] Comment on above: Order Comment: Order Date: 10/29/24Order Info: 0184-1 - CBCD Performed By: #### L 506.0250, L501.9520, L501.9985, L100.0100, L500.4050 ####[facility] [address] [place], [address] WBC (Bld) [#/Vol] 4.7 10*3/uL Normal 4.4-11.0 [facility] Comment on above: Order Comment: Order Date: 10/29/24Order Info: 0184-1 - CBCD Performed By: #### L 506.0250, L501.9596, L501.9950, L100.0100, L500.4050 ####[facility] [address] [place], [address] Carbon dioxide measurementOr dered By: Ethan Avendano on 10-29-2024 CO2 [Moles/Vol] 25.1 mmol/L 22.0-29.0 [facility] Chloride measurementOrdered By: Ethan Avendano on 10-29-2024 Chloride [Moles/Vol] 102 mmol/L 96-108 [facility] Creatinine [Moles/Vol]Ordere d By: Ethan Avendano on 10-29-2024 Creatinine [Mass/Vol] 1.0 mg/dL 0.8-1.3 [facility] Eosinophil percentageOrdered By: Ethan Avendano on 10-29-2024 Eosinophils/100 WBC (Bld) 0.0 % 0-5 [facility] Erythrocyte distribution wid th ratioOrdered By: Ethan Avendano on 10-29-2024 Erythrocyte distribution width (RBC) [Ratio] 12.9 % 11.6-14.6 [facility] Erythrocyte distribution wid th standard deviationOrdered By: Ethan Avendano on 10-29-2024 Erythrocyte distribution width (RBC) [Entitic vol] 42.5 fL 35.1-43.9 [facility] Erythrocyte distribution width (RBC) [Ratio] 42.5 fl 35.1-43.9 [facility] Folate measurementOrdered By : Ethan Avendano on 10-29-2024 Folate 32.00 ng/mL 4.60-34.80 [facility] Comment on above: Hemolysis, Results w ill be affected, Requires Recollection. GFR/1.73 sq M.predicted maxine g non-blacks MDRD (S/P/Bld) [Vol rate/Area]Ordered By: Ethan Avendano on 10-29-2024 Estimated GFR (MDRD) Non-Af Amer 86 >60 [facility] Comment on above: mL/min/1.73m2 CKD-EP I Creatinine Equation (2020) Glomerular filtration rate ( GFR) estimation/1.73 sq m using serum, plasma, or whole bOrdered By: Ethan Avendano on 10-29-2024 GFR/1.73 sq M.predicted among non-blacks MDRD (S/P/Bld) [Vol rate/Area] 86 mL/min/{1.73_m2} >60 [facility] Comment on above: mL/min/1.73m2 CKD-EP I Creatinine Equation (2020) Hematocrit Auto (Bld) [Volum e fraction]Ordered By: Ethan Avendano on 10-29-2024 Hematocrit (Bld) [Volume fraction] 41.1 % 40-54 [facility] Hemoglobin A1c percentageOrd ered By: Ethan Avendano on 10-29-2024 HbA1c (Bld) [Mass fraction] 5.8 % >5.7 [facility] Hemoglobin measurementOrdere d By: Ethan Avendano on 10-29-2024 Hemoglobin (Bld) [Mass/Vol] 13.7 g/dL 13.0-16.5 [facility] Immature granulocytes/100 WB C Auto (Bld)Ordered By: Ethan Avendano on 10-29-2024 Immature granulocytes/100 WBC (Bld) 0.400 % 0.0-0.9 [facility] Comment on above: IG% - Immature Granu locytes (promyelocytes, myelocytes and metamyelocytes) > 1% indicates that a LEFT SHIFT is Present. Laboratory - Chemistry and C hemistry - challengeOrdered By: Ethan Avendano on 10-29-2024 AST [Catalytic activity/Vol] 35 U/L <38 [facility] Cobalamin (Vitamin B12) [Mass/Vol] 555 pg/mL 180-914 [facility] Lymphocytes Auto (Unsp spec) [#/Vol]Ordered By: Ethan Avendano on 10-29-2024 Lymphocytes (Bld) [#/Vol] 0.90 10*3/uL 0.83-4.51 [facility] Lymphocytes/100 WBC Auto (Un sp spec)Ordered By: Ethan Avendano on 10-29-2024 Lymphocytes/100 WBC (Bld) 19.3 % 19-41 [facility] MCV (mean corpuscular volume ) determinationOrdered By: Ethan Avendano on 10-29-2024 MCV (RBC) [Entitic vol] 91.5 fL 80-94 [facility] Mean corpuscular hemoglobin (MCH) determinationOrdered By: Ethan Avendano on 10-29-2024 MCH (RBC) [Entitic mass] 30.5 pg 27.0-32.0 [facility] Mean corpuscular hemoglobin concentration (MCHC) determinationOrdered By: Ethan Avendano on 10-29-2024 MCHC (RBC) [Mass/Vol] 33.3 g/dL 32-36 [facility] Mean platelet volume determi nationOrdered By: Ethan Avendano on 10-29-2024 Platelet mean volume (Bld) [Entitic vol] 11.4 fL 6.2-12.0 [facility] Monocyte percentageOrdered B y: Ethan Avendano on 10-29-2024 Monocytes/100 WBC (Bld) 10.7 % High 0-10 [facility] Neutrophil percentageOrdered By: Ethan Avendano on 10-29-2024 Neutrophils/100 WBC (Bld) 69.4 % 47-70 [facility] Nucleated red blood cell per centageOrdered By: Ethan Avendano on 10-29-2024 Nucleated RBC/100 WBC (Bld) [Ratio] 0 % 0-5 [facility] Platelet countOrdered By: Abdulkadir Avendano on 10-29-2024 Platelets (Bld) [#/Vol] 126 10*3/uL Low 150-450 [facility] RBC Auto (Bld) [#/Vol]Ordere d By: Ethan Avendano on 10-29-2024 RBC (Bld) [#/Vol] 4.49 10*6/uL Low 4.6-6.2 [facility] Serum globulin measurementOr dered By: Ethan Avendano on 10-29-2024 Globulin (S) [Mass/Vol] 2.4 g/dL 2.2-4.2 [facility] Serum glucose measurement (m ass/volume)Ordered By: Ethan Avendano on 10-29-2024 Glucose [Mass/Vol] 80 mg/dL 70-99 [facility] Serum or plasma alanine garcia otransferase (ALT) measurementOrdered By: Ethan Avendano on 10-29-2024 ALT [Catalytic activity/Vol] 31 U/L <47 [facility] Serum or plasma albumin john urement (mass/volume)Ordered By: Ethan Avendano on 10-29-2024 Albumin [Mass/Vol] 4.3 g/dL 3.4-4.8 [facility] Serum or plasma albumin/glob ulin mass ratioOrdered By: Ethan Avendano on 10-29-2024 Albumin/Globulin [Mass ratio] 1.8 {ratio} 0.9-2.4 [facility] Serum or plasma alkaline dylon sphatase measurementOrdered By: Ethan Avendano on 10-29-2024 ALP [Catalytic activity/Vol] 63 U/L 40-129 [facility] Serum or plasma anion gap de termination (moles/volume)Ordered By: Ethan Avendano on 10-29-2024 Anion gap [Moles/Vol] 11 mmol/L 5-15 [facility] Serum or plasma calcium john urement (mass/volume)Ordered By: Ethan Avendano on 10-29-2024 Calcium [Mass/Vol] 9.6 mg/dL 7.6-11.0 [facility] Serum or plasma creatinine m easurement (moles/volume)Ordered By: Ethan Avendano on 10-29-2024 Creatinine [Moles/Vol] 1.0 mg/dL 0.8-1.3 [facility] Serum or plasma potassium me asurementOrdered By: Ethan Avendano on 10-29-2024 Potassium [Moles/Vol] 4.5 mmol/L 3.3-5.1 [facility] Serum or plasma sodium measu rement (moles/volume)Ordered By: Ethan Avendano on 10-29-2024 Sodium [Moles/Vol] 138 mmol/L 133-145 [facility] Serum or plasma urea nitroge n measurement (mass/volume)Ordered By: Ethan Avendano on 10-29-2024 Urea nitrogen [Mass/Vol] 15 mg/dL 4-19 [facility] T4 freeOrdered By: Ethan cheng on 10-29-2024 Free T4 [Mass/Vol] 0.90 ng/dL 0.76-1.46 [facility] TSH DL <= 0.005 mIU/L QnOrde red By: Ethan Avendano on 10-29-2024 Thyroid Stimulating Hormone (TSH) 6.000 uIU/mL High 0.300-4.200 [facility] TSH Qn 6.000 uIU/mL High 0.300-4.200 [facility] Total proteinOrdered By: Gaby Avendano on 10-29-2024 Protein [Mass/Vol] 6.7 g/dL 5.9-8.4 [facility] White blood cell (WBC) count Ordered By: Ethan Avendano on 10-29-2024 WBC (Bld) [#/Vol] 4.7 10*3/uL 4.4-11.0 [facility] Barium Enema w/Air Contrasto n 09-11-2024 Barium Enema w/Air Contrast [facility] Imaging Services [address] [place] [address] Barium Enema w/Air Contrast MR#: [id number] Acct: [id number] Name: FRANCISCO RAMOS Rep #: [id number] : 1950 M 74 From: Derick villarreal MD PCP: Dr. Ethan Avendano MD Status: [facility] Study: Barium Enema w/Air Contrast Date of Exam: 04/28 Exam# [id number] Ordering Dr: Jameel Oseguera [id number] STUDY: BARIUM ENEMA. REASON FOR EXAM: Male, 74 years old. Incomplete colonoscopy/tortuous colon FLUOROSCOPY TIME (if supplied): ( 1 minute and 40 seconds ) minutes/seconds. 93.09 mGy. 7 images were obtained. TECHNIQUE: A slate splitter film was obtained. Following this, barium enema [...] Jameel Oseguera MD; Dr. Ethan Avendano MD Distributor Of Directories: Signed Normal [facility] Colonoscopy Reporton 024 Colonoscopy Report [facility] Medical Records Department [address] [place] [address] Colonoscopy Report MR#: [id number] Acct: [id number] Name: FRANCISCO RAMOS Rep #: [id number] : 1950 74 From: Jameel Oseguera MD PCP: Dr. Ethan Avendano MD Status:REG [facility] Patient Name: Francisco Ramos Procedure Date: 08/23/2024 [...] barium enema. Procedure Code(s): --- Professional --- 31290, 53, Colonoscopy, flexible; diagnostic, including collection of specimen(s) by brushing or washing, when performed (separate procedure) Diagnosis Code(s): --- Professional --- R19.5, Other fecal abnormalities Q43.8, Other specified congenital malformations of intestine CPT copyright 2021 [employer]. All rights reserved. The codes documented in this report are preliminary and upon kiln placer review may be revised to meet current compliance requirements. Jameel Oseguera MD 08/23/2024 8:53:45 AM This report has been signed electronically. Number of Addenda: 0 Note Initiated On: 08/23/2024 8:12 AM 08/23/2454 Date Jameel Oseguera MD Cosigner Signature: Date (if indicated) CC: Dr. Jameel Oseguera MD; Dr. Ethan Avendano MD Date Dictated: 08/23/24811 Date Transcribed: Distributor Of Directories: HELLEN Signed [facility] MR/POSTOPBrett 08-23-2024 MR/POSTOP.ANE [facility] Medical Records Department [address] [facility] [place] [address] Anesthesia Postop Eval I 08/23/24 0859 MR#: [id number] Acct: [id number] Name: FRANCISCO RAMOS Rep #: [id number] : 1950 74 From: Herman Villa PCP: Dr. Ethan Avendano MD Status:REG SDC Y Race: C Location: [place] [address] Anesthesia: Postop Eval I Current Vital Signs [...] Anesthesia document: Postop Eval 1 completed: Yes 08/23/24 09 Date Herman Cruz Signature: Date CC: Signed Normal [facility] MR/UBMAOSTH0ao 08-23-2024 /POST[address] Medical Records Department [address] [facility] [place] [address] Anesthesia Postop Eval II 08/23/24 0911 MR#: [id number] Acct: [id number] Name: FRANCISCO RAMOS Rep #: [id number] : 1950 74 From: Aleksandar Hudson MD PCP: Dr. Ethan Avendano MD Status:REG SDC Y Race: C Location: [place] [address] Anesthesia Postop Eval I Sum Postop Eval [...] Pain Level: 0 nausea: No Vomiting: No 08/23/2411 Date Aleksandar Hudson MD Cosignabdulkadir Signature: Date CC: Signed Normal [facility] MR/Minnie 08-22-2024 /PAT.[facility] Medical Records Department [address] [place] [address] PAT - Anesthesia 08/22/24 1525 MR#: [id number] Acct: [id number] Name: FRANCISCO RAMOS Rep #: [id number] : 1950 74 From: Sage Tracey MD PCP: Dr. Ethan Avendano MD Status:DEP [facility] Y Race: C Location: [place] Pre-Assessment Diagnosis/Proposed Procedure Planned Operative Procedure(s): CSCOPE Anesthesia History Anesthesia History - senior patient account representative: Anesthesia History - senior patient account representative Hx Hospitalization No 08/22/24 10:23 Any Problems [...] take am of surgery PONV PONV - senior patient account representative: PONV - senior patient account representative Female No 08/22/24 10:23 HX of Motion [...] 07/11/24 11:11 Respiratory Assessment Respiratory Assessment - senior patient account representative: Respiratory Tract Infection Hx - senior patient account representative Hx Respiratory Tract Infection No 08/22/24 10:23 STOP Sleep Apnea STOP Sleep Apnea - senior patient account representative: STOP Sleep Apnea - senior patient account representative Hx Hypertension No 08/22/24 10:23 Hx Sleep [...] Tobacco Use History Tobacco Use History - senior patient account representative: Tobacco Use History - senior patient account representative Tobacco Use Smoking Status Never smoker 08/22/24 10:23 Hx Tobacco Use No 08/22/24 10:23 Years Smoking Packs Smoked per Day Smoking Cessation Date was within the last 15 years Hx Smoking Cessation Date Hx Smoking Cessation Counseling Hematologic Medial History Hematologic Hx - senior patient account representative: 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 Specify any problems Hx of Preganancy in last 3 No 08/22/24 10:23 Months Nurse Filling Out Transfusion DSCHRIBER 08/22/24 10:23 Questions: Date: 08/22/24 08/22/24 10:23 Time: 10:08/22/24 10:23 Patient unable to answer at this time (ie. confused, unrespo /Reproducti on History /Reproducti ve History - senior patient account representative: /Reproducti ve Hx- senior patient account representative Hx Now No 08/22/24 10:23 Gestational Age (in weeks): EDC: Hx Hx Para Hx Section SAB No 08/22/24 10:23 [facility] Medical History (Updated 08/22/24 @ 10:37 by Bebe Nava) Wears glasses Arthritis High cholesterol Easy bruising Back pain Non-smoker History of pain when walking History of echocardiogram History of stress test Cardiology follow-up encounter Parkinson disease Atherosclerosis of coronary artery of [place] heart without angina pectoris Hyperlipidemia Common variable immunodeficiency Benign prostate hyperplasia Basal cell carcinoma of left ear Home Medications ???Medication ???Instructions ???Recorded ???Last Taken ???Type multivitamin with folic acid 400 1 tab PO DAILY 06/10/13 08/19/24 History mcg tablet folic acid 400 mcg tablet 1 tab PO DAILY 12/24/13 Unknown History immune glob,gamma(IgG) 10 20 g .Route .[id number] 03/04/19 Unknown History ngll-ful-tdwk-IgA 0 to 50 mcg/mL IV solution nitroglycerin 0.4 mg sublingual 0.4 mg sublingual Q5-15M PRN chest 04/03/19 Unknown Rx tablet pain #25 tabs celecoxib 200 mg capsule 200 mg PO BID 06/04 (more content not included)... Normal [facility] Surgery Visit Reporton 07-10 Surgery Visit Report [facility] [address] [place] [address] OFFICE VISIT Date of Service: 07/10/24 MR#: [id number] Acct: [id number] Name: FRANCISCO RAMOS Rep #: [id number] : 1950 Provider: Dr. Jameel workman MD Age/Sex: 74/M Location: [facility] Status: Signed Intake Vital Signs 06/06/24 [...] History immune glob,gamma(IgG) 10 20 g .Route .[id number] 03/04/19 07/10/24 History ffgo-htc-efem-IgA 0 to 50 mcg/mL IV solution nitroglycerin [...] chest CT Atherosclerosis of coronary artery of [place] heart without angina pectoris Basal cell carcinoma [...] No heada (more content not included)... Normal [facility] PSA,Total - Annual Screenon 03-28-2024 PSA,TOT SCREEN 4.65 ng/mL High 0.00-4.00 [facility] Comment on above: Result Comment: This test was performed using the TPSA assay method for the obopay chemistry system. Values obtained with different assay methods cannot be used interchangably. When changing PSA assays in the course of monitoring a patient, additional sequential testing should be carried out to confirm baseline values. Performed By: #### L 501.9910 #### [facility] Laboratory [address] [place], [address] Absolute lymphocyte countOrd ered By: Ethan Avendano on 11-16-2023 Lymphocytes Auto (Unsp spec) [#/Vol] 0.84 10*3/uL 0.83-4.51 [facility] Automated lymphocyte count a s percentage of total leukocytesOrdered By: Ethan Avendano on 11-16-2023 Lymphocytes/100 WBC Auto (Unsp spec) 22.5 % 19-41 [facility] Basophil percentageOrdered B y: Ethan Avendano on 11-16-2023 Basophils/100 WBC (Bld) 0.0 % 0-1 [facility] Bilirubin [Mass/Vol] 0.70 mg/dL 0.20-1.00 [facility] Comment on above: For patients on eltr ombopag therapy, use of Dimension [place] TBIL is not recommended. Chloride [Moles/Vol] 104 mmol/L 98-107 [facility] Cholesterol [Mass/Vol] 93 mg/dL <200 [facility] Comment on above: <200 mg/dL Desirable 200-240 mg/dL Borderline >240 mg/dL High Risk Eosinophils/100 WBC (Bld) 0.0 % 0-5 [facility] Glucose [Mass/Vol] 90 mg/dL 74-106 [facility] Hemoglobin (Bld) [Mass/Vol] 13.1 g/dL 13.0-16.5 [facility] Monocytes/100 WBC (Bld) 11.5 % 0-10 [facility] Neutrophils (Bld) [#/Vol] 2.5 10*3/uL 2.0-7.7 [facility] Neutrophils/100 WBC (Bld) 65.7 % 47-70 [facility] Potassium [Moles/Vol] 4.0 mmol/L 3.5-5.1 [facility] Protein [Mass/Vol] 6.8 g/dL 6.4-8.2 [facility] Sodium [Moles/Vol] 139 mmol/L 136-145 [facility] Triglyceride [Mass/Vol] 123 mg/dL <199 [facility] Comment on above: The drugs N-Acetylcy steine and Metamizole may falsely depress this assay.Serum Triglycerides Reference Interval Normal <150 mg/dL Borderline high 150 - 199 mg/dL High 200 - 499 mg/dL Very High > or = 500 mg/dL WBC (Bld) [#/Vol] 3.7 10*3/uL 4.4-11.0 [facility] Determination of erythrocyte mean corpuscular volume (MCV)Ordered By: Ethan Avendano on 11-16-2023 MCV (RBC) [Entitic vol] 92.2 fL 80-94 [facility] Erythrocyte distribution wid th ratioOrdered By: Ethan Avendano on 11-16-2023 Erythrocyte distribution width (RBC) [Ratio] 13.2 % 11.6-14.6 [facility] Erythrocyte distribution wid th standard deviationOrdered By: Ethan Avendano on 11-16-2023 Erythrocyte distribution width (RBC) [Entitic vol] 45.0 fL 35.1-43.9 [facility] Hematocrit Auto (Bld) [Volum e fraction]Ordered By: Ethan Avendano on 11-16-2023 Hematocrit (Bld) [Volume fraction] 40.3 % 40-54 [facility] Immature granulocytes/100 WB C Auto (Bld)Ordered By: Ethan Avendano on 11-16-2023 Immature granulocytes/100 WBC (Bld) 0.300 % 0.0-0.9 [facility] Comment on above: IG% - Immature Granu locytes (promyelocytes, myelocytes and metamyelocytes) > 1% indicates that a LEFT SHIFT is Present. Laboratory - Chemistry and C hemistry - challengeOrdered By: Ethan Avendano on 11-16-2023 Albumin/Globulin [Mass ratio] 1.1 {ratio} 0.9-2.4 [facility] ALP [Catalytic activity/Vol] 54 U/L 45-117 [facility] ALT [Catalytic activity/Vol] 26 U/L 16-61 [facility] Cholesterol in HDL [Mass/Vol] 31 mg/dL >40 [facility] Comment on above: The drugs N-Acetylcy steine and Metamizole may falsely depress this assay. Reference Range HDL <40 mg/dL Low HDL Cholesterol HDL >or= 60 mg/dL High HDL Cholesterol Cholesterol in LDL [Mass/Vol] 37 mg/dL 0-130 [facility] CO2 [Moles/Vol] 28.0 mmol/L 21.0-32.0 [facility] Globulin (S) [Mass/Vol] 3.2 g/dL 2.2-4.2 [facility] Urea nitrogen/Creatinine [Mass ratio] 19.2 mg/mg 10-20 [facility] Laboratory - Hematology and Cell countsOrdered By: Ethan Avendano on 11-16-2023 MCH (RBC) [Entitic mass] 30.0 pg 27.0-32.0 [facility] MCHC (RBC) [Mass/Vol] 32.5 g/dL 32-36 [facility] Nucleated RBC/100 WBC (Bld) [Ratio] 0 % 0-5 [facility] Platelet mean volume (Bld) [Entitic vol] 11.8 fL 6.2-12.0 [facility] [facility] (Bld[facility] [#/Vol] 103 10*3/uL 150-450 [facility] No Panel InformationOrdered By: Ethan Avendano on 11-16-2023 Estimated GFR (MDRD) Amer 109 mL/min >60 [facility] Comment on above: GFR Calc Estimated GFR (MDRD) Non-Af Amer 90 mL/min >60 [facility] Comment on above: Non- GFR Calc VLDL Cholesterol 25 mg/dL 5-40 [facility] RBC Auto (Bld) [#/Vol]Ordere d By: Ethan Avendano on 11-16-2023 RBC (Bld) [#/Vol] 4.37 10*6/uL 4.6-6.2 [facility] Serum or plasma calcium john urement (mass/volume)Ordered By: Ethan Avendano on 11-16-2023 Calcium [Mass/Vol] 9.1 mg/dL 8.5-10.1 [facility] Serum or plasma creatinine m easurement (mass/volume)Ordered By: Ethan Avendano on 11-16-2023 Creatinine [Mass/Vol] 0.89 mg/dL 0.70-1.30 [facility] Comment on above: The validity of the calculated GFR & GFRAA in patients over 70 years has not been determined. Clinical correlation is essential. Serum or plasma urea nitroge n measurement (mass/volume)Ordered By: Ethan Avendano on 11-16-2023 Urea nitrogen [Mass/Vol] 17 mg/dL 7-18 [facility] Thin prep Papanicolaou smear with manual screeningOrdered By: Ethan Avendano on 11-16-2023 Thin prep Papanicolaou smear with manual screening 3.6 g/dL 3.2-5.0 [facility] Thin prep Papanicolaou smear with manual screening 26 U/L 15-37 [facility] Thin prep Papanicolaou smear with manual screening 7 5-15 [facility] CNTHERAPYon 10-06-2023 CNTHERAPY OT/PT/Speech Visit (OTNOCA) FRANCISCO RAMOS ([id number]) 1950 Date Time Provider Department 10/06/23 1:30 PM FLORENCE EUGENE Date Time Provider Department Center 10/06/2023 1:30 PM [id number], [email or web address] [email or web address] [facility] N Reason for Visit: OT Discharge [750] [...] tablet daily. Letter Text Letter Text Normal [facility] No Panel InformationOrdered By: Blaine Lee on 03-23-2023 Prostate Specific Antigen Screen 4.24 ng/mL 0.00-4.00 [facility] Comment on above: This test was perfor med using the TPSA assay method for [employer] chemistry system. Values obtained with differentassay methods cannot be used interchangably.When changing PSA assays in the course of monitoring apatient, additional sequential testing should be carriedout to confirm baseline values. Basophil percentageOrdered B y: Lory He on 02-01-2023 Bilirubin [Mass/Vol] 0.50 mg/dL 0.20-1.00 [facility] Comment on above: For patients on eltr ombopag therapy, use of Dimension [place] TBIL is not recommended. Cholesterol [Mass/Vol] 82 mg/dL <200 [facility] Comment on above: <200 mg/dL Desirable 200-240 mg/dL Borderline >240 mg/dL High Risk Protein [Mass/Vol] 6.9 g/dL 6.4-8.2 [facility] Triglyceride [Mass/Vol] 93 mg/dL <199 [facility] Comment on above: The drugs N-Acetylcy steine and Metamizole may falsely depress this assay.Serum Triglycerides Reference Interval Normal <150 mg/dL Borderline high 150 - 199 mg/dL High 200 - 499 mg/dL Very High > or = 500 mg/dL Direct bilirubinOrdered By: Lory He on 02-01-2023 Bilirubin.direct [Mass/Vol] 0.12 mg/dL 0.00-0.30 [facility] Laboratory - Chemistry and C hemistry - challengeOrdered By: Lory He on 02-01-2023 ALP [Catalytic activity/Vol] 71 U/L 45-117 [facility] ALT [Catalytic activity/Vol] 15 U/L 16-61 [facility] Globulin (S) [Mass/Vol] 3.4 g/dL 2.2-4.2 [facility] Serum or plasma albumin john urement (mass/volume)Ordered By: Lory He on 02-01-2023 Albumin [Mass/Vol] 3.5 g/dL 3.2-5.0 [facility] Serum or plasma cholesterol in HDL measurement (mass/volume)Ordered By: Lory He on 02-01-2023 Cholesterol in HDL [Mass/Vol] 29 mg/dL >40 [facility] Comment on above: The drugs N-Acetylcy steine and Metamizole may falsely depress this assay. Reference Range HDL <40 mg/dL Low HDL Cholesterol HDL >or= 60 mg/dL High HDL Cholesterol Serum or plasma cholesterol in VLDL measurement (mass/volume)Ordered By: Lory He on 02-01-2023 Cholesterol in VLDL [Mass/Vol] 19 mg/dL 5-40 [facility] Serum or plasma low density lipoprotein (LDL) cholesterol measurement (mass/volume)Ordered By: Lory He on 02-01-2023 Cholesterol in LDL [Mass/Vol] 34 mg/dL 0-130 [facility] Thin prep Papanicolaou smear with manual screeningOrdered By: Lory He on 02-01-2023 Thin prep Papanicolaou smear with manual screening 30 U/L 15-37 [facility] CNOVon 12-29-2022 CNOV Office Visit (BRISEIDA) FRANCISCO RAMOS ([id number]) 1950 M Date Time Provider Department 12/29/22 [...] or you can send a message through [employer]. You can also now schedule and select appointments through [employer]. MD Latisha Ta MD 12/29/2022 10:53 AM [...] last fall. torn rotator cuff. [employer]- spectates more than helping Difficulties turning [...] for Fa (more content not included)... Normal [facility] Absolute lymphocyte countOrd ered By: Dr. Avendano on 07-07-2022 Lymphocytes Auto (Unsp spec) [#/Vol] 0.77 10*3/uL 0.83-4.51 [facility] Basophil percentageOrdered B y: Dr. Avendano on 07-07-2022 Basophils/100 WBC (Bld) 0.0 % 0-1 [facility] Bilirubin [Mass/Vol] 0.50 mg/dL 0.20-1.00 [facility] Comment on above: For patients on eltr ombopag therapy, use of Dimension [place] TBIL is not recommended. Chloride [Moles/Vol] 104 mmol/L 98-107 [facility] Eosinophils/100 WBC (Bld) 0.0 % 0-5 [facility] Glucose [Mass/Vol] 114 mg/dL 74-106 [facility] Comment on above: Fasting Glucose resu lt from 100 to 125 mg/dL suggests IMPAIRED HOMEOSTASIS per A.D.A. criteria. Neutrophils (Bld) [#/Vol] 3.7 10*3/uL 2.0-7.7 [facility] Neutrophils/100 WBC (Bld) 74.9 % 47-70 [facility] Potassium [Moles/Vol] 4.3 mmol/L 3.5-5.1 [facility] Protein [Mass/Vol] 6.8 g/dL 6.4-8.2 [facility] Sodium [Moles/Vol] 136 mmol/L 136-145 [facility] WBC (Bld) [#/Vol] 4.9 10*3/uL 4.4-11.0 [facility] Blood erythrocytes count (nu mber/volume)Ordered By: Dr. Avendano on 07-07-2022 RBC (Bld) [#/Vol] 4.38 10*6/uL 4.6-6.2 [facility] Blood hemoglobin measurement (mass/volume)Ordered By: Dr. Avendano on 07-07-2022 Hemoglobin (Bld) [Mass/Vol] 13.8 g/dL 13.0-16.5 [facility] Blood lymphocytes/100 leukoc ytesOrdered By: Dr. Avendano on 07-07-2022 Lymphocytes/100 WBC (Bld) 15.6 % 19-41 [facility] Blood monocytes/100 leukocyt esOrdered By: Dr. Avendano on 07-07-2022 Monocytes/100 WBC (Bld) 9.1 % 0-10 [facility] Blood platelet mean volumeOr dered By: Dr. Avendano on 07-07-2022 Platelet mean volume (Bld) [Entitic vol] 12.0 fL 6.2-12.0 [facility] Determination of erythrocyte mean corpuscular volume (MCV)Ordered By: Dr. Avendano on 07-07-2022 MCV (RBC) [Entitic vol] 94.1 fL 80-94 [facility] Hematocrit Auto (Bld) [Volum e fraction]Ordered By: Dr. Avendano on 07-07-2022 Hematocrit (Bld) [Volume fraction] 41.2 % 40-54 [facility] Laboratory - Chemistry and C hemistry - challengeOrdered By: Dr. Avendano on 07-07-2022 ALP [Catalytic activity/Vol] 59 U/L 45-117 [facility] ALT [Catalytic activity/Vol] 39 U/L 16-61 [facility] CO2 [Moles/Vol] 29.0 mmol/L 21.0-32.0 [facility] Globulin (S) [Mass/Vol] 3.1 g/dL 2.2-4.2 [facility] Urea nitrogen/Creatinine [Mass ratio] 28.5 mg/mg 10-20 [facility] Laboratory - Hematology and Cell countsOrdered By: Dr. Avendano on 07-07-2022 Erythrocyte distribution width (RBC) [Entitic vol] 43.1 fL 35.1-43.9 [facility] Erythrocyte distribution width (RBC) [Ratio] 12.4 % 11.6-14.6 [facility] Immature granulocytes/100 WBC (Bld) 0.400 % 0.0-0.9 [facility] Comment on above: IG% - Immature Granu locytes (promyelocytes, myelocytes and metamyelocytes) > 1% indicates that a LEFT SHIFT is Present. MCH (RBC) [Entitic mass] 31.5 pg 27.0-32.0 [facility] Nucleated RBC/100 WBC (Bld) [Ratio] 0 % 0-5 [facility] MCHC Auto (RBC) [Mass/Vol]Or dered By: Dr. Avendano on 07-07-2022 MCHC (RBC) [Mass/Vol] 33.5 g/dL 32-36 [facility] No Panel InformationOrdered By: Dr. Avendano on 07-07-2022 Estimated GFR (MDRD) Amer 135 mL/min >60 [facility] Comment on above: GFR Calc Estimated GFR (MDRD) Non-Af Amer 112 mL/min >60 [facility] Comment on above: Non- GFR Calc Platelets bldOrdered By: Dr. Avendano on 07-07-2022 Platelets (Bld) [#/Vol] 112 10*3/uL 150-450 [facility] Serum or plasma albumin john urement (mass/volume)Ordered By: Dr. Avendano on 07-07-2022 Albumin [Mass/Vol] 3.7 g/dL 3.2-5.0 [facility] Serum or plasma albumin/glob ulin mass ratioOrdered By: Dr. Avendano on 07-07-2022 Albumin/Globulin [Mass ratio] 1.2 {ratio} 0.9-2.4 [facility] Serum or plasma calcium john urement (mass/volume)Ordered By: Dr. Avendano on 07-07-2022 Calcium [Mass/Vol] 9.2 mg/dL 8.5-10.1 [facility] Serum or plasma creatinine m easurement (mass/volume)Ordered By: Dr. Avendano on 07-07-2022 Creatinine [Mass/Vol] 0.74 mg/dL 0.70-1.30 [facility] Comment on above: The validity of the calculated GFR & GFRAA in patients over 70 years has not been determined. Clinical correlation is essential. Serum or plasma urea nitroge n measurement (mass/volume)Ordered By: Dr. Avendano on 07-07-2022 Urea nitrogen [Mass/Vol] 21 mg/dL 7-18 [facility] Thin prep Papanicolaou smear with manual screeningOrdered By: Dr. Avendano on 07-07-2022 Thin prep Papanicolaou smear with manual screening 26 U/L 15-37 [facility] Thin prep Papanicolaou smear with manual screening 3 5-15 [facility] Absolute immature granulocyt e counton 12-02-2021 Immature granulocytes (Bld) [#/Vol] 0 10*3/uL 0.0-0.1 [facility] Work Phone: Absolute lymphocyte counton 03-31-2022 Lymphocytes Auto (Unsp spec) [#/Vol] 0.87 10*3/uL 0.83-4.51 [facility] Work Phone: [phone] Lymphocytes Auto (Unsp spec) [#/Vol] 1.0 10*3/uL 0.7-3.1 [facility] Work Phone: [phone] Basophil percentageon 2021 Basophils/100 WBC (Bld) 0.2 % 0-1 [facility] Work Phone: [phone] Bilirubin [Mass/Vol] 0.70 mg/dL 0.20-1.00 [facility] Work Phone: [phone] Comment on above: For patients on eltr ombopag therapy, use of Dimension [place] TBIL is not recommended. Chloride [Moles/Vol] 106 mmol/L 98-107 [facility] Work Phone: Cholesterol [Mass/Vol] 80 mg/dL <200 [facility] Work Phone: [phone] Comment on above: <200 mg/dL Desirable 200-240 mg/dL Borderline >240 mg/dL High Risk Eosinophils/100 WBC (Bld) 0.0 % 0-5 [facility] Work Phone: Glucose [Mass/Vol] 94 mg/dL 74-106 [facility] Work Phone: Monocytes (Bld) [#/Vol] 0.4 10*3/uL 0.1-0.9 [facility] Work Phone: [phone] Neutrophils (Bld) [#/Vol] 4.2 10*3/uL 2.0-7.7 [facility] Work Phone: Neutrophils (Bld) [#/Vol] 4.4 10*3/uL 1.4-7.0 [facility] Work Phone: [phone] Neutrophils/100 WBC (Bld) 75.8 % 47-70 [facility] Work Phone: [phone] Potassium [Moles/Vol] 4.3 mmol/L 3.5-5.1 [facility] Work Phone: Protein [Mass/Vol] 6.8 g/dL 6.4-8.2 [facility] Work Phone: Sodium [Moles/Vol] 136 mmol/L 136-145 [facility] Work Phone: Triglyceride [Mass/Vol] 99 mg/dL <199 [facility] Work Phone: Comment on above: The drugs N-Acetylcy steine and Metamizole may falsely depress this assay.Serum Triglycerides Reference Interval Normal <150 mg/dL Borderline high 150 - 199 mg/dL High 200 - 499 mg/dL Very High > or = 500 mg/dL WBC (Bld) [#/Vol] 5.9 10*3/uL 3.4-10.8 [facility] Work Phone: Basophils/100 WBC Auto (Bld) on 12-02-2021 Basophils/100 WBC (Bld) 0 % Not Estab. [facility] Work Phone: Blood basophils count (numbe r/volume)on 12-02-2021 Basophils (Bld) [#/Vol] 0 10*3/uL 0.0-0.2 [facility] Work Phone: Blood eosinophils count (num nadiya/volume)on 12-02-2021 Eosinophils (Bld) [#/Vol] 0 10*3/uL 0.0-0.4 [facility] Work Phone: Blood hematocrit (volume fra ction)on 12-02-2021 Hematocrit (Bld) [Volume fraction] 41.1 % 37.5-51.0 [facility] Work Phone: Blood hemoglobin measurement (mass/volume)on 12-02-2021 Hemoglobin (Bld) [Mass/Vol] 13.6 g/dL 13.0-17.7 [facility] Work Phone: Blood immature cells/100 sherita kocyteson 12-02-2021 Immature cells/100 WBC (Bld) TNP [facility] Work Phone: Comment on above: Test not performed Blood immature granulocytes/ 100 leukocyteson 12-02-2021 Immature granulocytes/100 WBC (Bld) 0 % Not Estab. [facility] Work Phone: Blood lymphocytes/100 leukoc yteson 12-02-2021 Lymphocytes/100 WBC (Bld) 15.7 % 19-41 [facility] Work Phone: Blood monocytes/100 leukocyt eson 12-02-2021 Monocytes/100 WBC (Bld) 7.8 % 0-10 [facility] Work Phone: Blood platelet mean volumeon 12-02-2021 Platelet mean volume (Bld) [Entitic vol] 11.9 fL 6.2-12.0 [facility] Work Phone: CD3+CD8+ (T8 suppressor cell s) cells/100 cells (Bld)on 12-02-2021 CD3+CD8+ (T8 suppressor cells) cells (Bld) [#/Vol] 323 /uL 109-897 [facility] Work Phone: Count of whole blood cells p ositive for CD3 and CD4 antigens (number/volume)on 12-02-2021 CD3+CD4+ (T4 helper) cells (Bld) [#/Vol] 284 /uL [phone] [facility] Work Phone: Eosinophils/100 WBC Auto (Bl d)on 12-02-2021 Eosinophils/100 WBC (Bld) 0 % Not Estab. [facility] Work Phone: Erythrocyte distribution wid th ratioon 12-02-2021 Erythrocyte distribution width (RBC) [Ratio] 13.0 % 11.6-15.4 [facility] Work Phone: Interpretation of morphologi c examination of blood (narrative result)on 12-02-2021 Morphology Fritz (Bld) [Interp] TNP [facility] Work Phone: Comment on above: Test not performed Laboratory - Chemistry and C hemistry - challengeon 12-02-2021 ALP [Catalytic activity/Vol] 65 U/L 45-117 [facility] Work Phone: ALT [Catalytic activity/Vol] 15 U/L 16-61 [facility] Work Phone: CO2 [Moles/Vol] 26.0 mmol/L 21.0-32.0 [facility] Work Phone: Globulin (S) [Mass/Vol] 3.1 g/dL 2.2-4.2 [facility] Work Phone: Urea nitrogen/Creatinine [Mass ratio] 26.2 mg/mg 10-20 [facility] Work Phone: [phone] Laboratory - Hematology and Cell countson 12-02-2021 Erythrocyte distribution width (RBC) [Entitic vol] 43.1 fL 35.1-43.9 [facility] Work Phone: Erythrocyte distribution width (RBC) [Ratio] 12.8 % 11.6-14.6 [facility] Work Phone: Immature granulocytes/100 WBC (Bld) 0.500 % 0.0-0.9 [facility] Work Phone: Comment on above: IG% - Immature Granu locytes (promyelocytes, myelocytes and metamyelocytes) > 1% indicates that a LEFT SHIFT is Present. Nucleated RBC/100 WBC (Bld) [Ratio] 0 % 0-5 [facility] Work Phone: Lymphocytes/100 WBC Auto (Bl d)on 12-02-2021 Lymphocytes/100 WBC (Bld) 18 % Not Estab. [facility] Work Phone: MCHC Auto (RBC) [Mass/Vol]on 12-02-2021 MCHC (RBC) [Mass/Vol] 33.1 g/dL 31.5-35.7 [facility] Work Phone: Neutrophils Auto (Bld) [#/Vo l]on 12-02-2021 Neutrophils/100 WBC (Bld) 75 % Not Estab. [facility] Work Phone: No Panel Informationon 12-02 Estimated GFR (MDRD) Amer 116 mL/min >60 [facility] Work Phone: Comment on above: GFR Calc Estimated GFR (MDRD) Non-Af Amer 96 mL/min >60 [facility] Work Phone: Comment on above: Non- GFR Calc Prostate Specific Antigen Total 3.21 ng/mL 0.0-4.0 [facility] Work Phone: Comment on above: This test was perfor med using the TPSA assay method for [employer] chemistry system. Values obtained with differentassay methods cannot be used interchangably.When changing PSA assays in the course of monitoring apatient, additional sequential testing should be carriedout to confirm baseline values. Percentage of whole blood ce lls positive for CD3 and CD4 antigenson 12-02-2021 CD3+CD4+ (T4 helper) cells/100 cells (Bld) 28.4 % 30.8-58.5 [facility] Work Phone: Percentage of whole blood ce lls positive for CD3 and CD8 antigenson 12-02-2021 CD3+CD8+ (T8 suppressor cells) cells/100 cells (Bld) 32.3 % 12.0-35.5 [facility] Work Phone: Platelets bldon 12-02-2021 Platelets (Bld) [#/Vol] 103 10*3/uL 150-450 [facility] Work Phone: RBC Auto (Bld) [#/Vol]on RBC (Bld) [#/Vol] 4.41 10*6/uL 4.14-5.80 [facility] Work Phone: Ratio of whole blood cells p ositive for CD3 and CD4 antigens to cells positive for CDon 12-02-2021 CD3+CD4+ (T4 helper) cells/CD3+CD8+ (T8 suppressor cells) cells (Bld) [# ratio] 0.88 % 0.92-3.72 [facility] Work Phone: Serum or plasma IgA measurem ent (mass/volume)on 12-02-2021 IgA [Mass/Vol] mg/dL 61-437 [facility] Work Phone: Comment on above: Result confirmed on concentration. Serum or plasma IgG measurem ent (mass/volume)on 12-02-2021 IgG [Mass/Vol] 723 mg/dL [phone] [facility] Work Phone: Serum or plasma IgM measurem ent (mass/volume)on 12-02-2021 IgM [Mass/Vol] mg/dL 20-172 [facility] Work Phone: Comment on above: Result confirmed on concentration.Performed at: [email or web address] [id number] Director: Rm Tyson PhD, Phone: [phone] Serum or plasma albumin john urement (mass/volume)on 12-02-2021 Albumin [Mass/Vol] 3.7 g/dL 3.2-5.0 [facility] Work Phone: Serum or plasma albumin/glob ulin mass ratioon 12-02-2021 Albumin/Globulin [Mass ratio] 1.2 {ratio} 0.9-2.4 [facility] Work Phone: Serum or plasma calcium john urement (mass/volume)on 12-02-2021 Calcium [Mass/Vol] 8.8 mg/dL 8.5-10.1 [facility] Work Phone: Serum or plasma cholesterol in HDL measurement (mass/volume)on 12-02-2021 Cholesterol in HDL [Mass/Vol] 27 mg/dL >40 [facility] Work Phone: Comment on above: The drugs N-Acetylcy steine and Metamizole may falsely depress this assay. Reference Range HDL <40 mg/dL Low HDL Cholesterol HDL >or= 60 mg/dL High HDL Cholesterol Serum or plasma cholesterol in VLDL measurement (mass/volume)on 12-02-2021 Cholesterol in VLDL [Mass/Vol] 20 mg/dL 5-40 [facility] Work Phone: Serum or plasma creatinine m easurement (mass/volume)on 12-02-2021 Creatinine [Mass/Vol] 0.84 mg/dL 0.70-1.30 [facility] Work Phone: Comment on above: The validity of the calculated GFR & GFRAA in patients over 70 years has not been determined. Clinical correlation is essential. Serum or plasma low density lipoprotein (LDL) cholesterol measurement (mass/volume)on 12-02-2021 Cholesterol in LDL [Mass/Vol] 33 mg/dL 0-130 [facility] Work Phone: Serum or plasma urea nitroge n measurement (mass/volume)on 12-02-2021 Urea nitrogen [Mass/Vol] 22 mg/dL 7-18 [facility] Work Phone: Thin prep Papanicolaou smear with manual screeningon 12-02-2021 Thin prep Papanicolaou smear with manual screening 34 U/L 15-37 [facility] Work Phone: Thin prep Papanicolaou smear with manual screening 4 5-15 [facility] Work Phone: Thin prep Papanicolaou smear with manual screening 93 fL 79-97 [facility] Work Phone: Thin prep Papanicolaou smear with manual screening 30.8 pg 26.6-33.0 [facility] Work Phone: Thin prep Papanicolaou smear with manual screening 7 % Not Estab. [facility] Work Phone: NM BRAIN DATSCANon 9 NM [...] Sign Date: 08/08/2019 8:56:11 AM Ordering Provider:Aureliano Ferguson [facility]ly [facility] ([place]) Vital Signs Date Time Vital Sign Value Performing Clinician Facility 2025 23:36-0400 Body temperature 98.1 [degF] Dr. Ethan Avendano MD Work Phone: [phone] [place] [address] 2025 23:36-0400 Diastolic blood pressure 88 mm[Hg] Dr. Ethan Avendano MD Work Phone: [phone] [place] [address] 2025 23:36-0400 Heart rate 105 /min Dr. Ethan Avendano MD Work Phone: [phone] [address] 2025 23:36-0400 Respiratory rate 18 /min Dr. Ethan Avendano MD Work Phone: [facility] 2025 23:36-0400 SaO2% (BldA) [Mass fraction] 95 % Dr. Ethan Avendano MD Work Phone: [facility] 2025 23:36-0400 Systolic blood pressure 138 mm[Hg] Dr. Ethan Avendano MD Work Phone: [phone] [place] [address] 2025 20:42-0400 Body height 170.[address] Ethan Avendano MD Work Phone: [facility] 2025 20:42-0400 Body mass index (BMI) [Ratio] 23 kg/m2 Dr. Ethan Avendano MD Work Phone: [facility] 2025 20:42-0400 Body weight 66.[address] Ethan Avendano MD Work Phone: [facility] 03-21-2025 05:02-0400 Body temperature 97.59 [degF] Bhanu Jaxsonrakola DO Work Phone: [facility] 03-21-2025 05:02-0400 Diastolic blood pressure 89 mm[Hg] Bhanu Urbankola DO Work Phone: [facility] 03-21-2025 05:02-0400 Heart rate 89 /min Bhanu Urbankola DO Work Phone: [facility] 03-21-2025 05:02-0400 Respiratory rate 16 /min Bhanu Urbankola DO Work Phone: [facility] 03-21-2025 05:02-0400 SaO2% (BldA) [Mass fraction] 97 % Bhanu rUbankola DO Work Phone: [facility] 03-21-2025 05:02-0400 Systolic blood pressure 146 mm[Hg] Bhanu Urbankola DO Work Phone: [facility] 03-19-2025 12:28-0400 Body height 172.7 cm Bhanu Urbankola DO Work Phone: [facility] 03-16-2025 06:20-0400 Body mass index (BMI) [Ratio] 21.29 kg/m2 Bhanu Ubrankola DO Work Phone: [facility] 03-16-2025 06:20-0400 Body weight 63.5 kg Bhanu Arletla DO Work Phone: [facility] 03-16-2025 04:39-0400 Body temperature 98.3 [degF] Dr. Ehtan Avendano MD Work Phone: [facility] 03-16-2025 04:39-0400 Diastolic blood pressure 75 mm[Hg] Dr. Ethan Avendano MD Work Phone: 3(101)062-659292 [place] [address] 03-16-2025 04:39-0400 Heart rate 88 /min Dr. Ethan Avendano MD Work Phone: 8(893)102-433136 [place] [address] 03-16-2025 04:39-0400 Respiratory rate 18 /min Dr. Ethan Avendano MD Work Phone: 8(891)189-194736 [place] [address] 03-16-2025 04:39-0400 SaO2% (BldA) [Mass fraction] 97 % Dr. Ethan Avendano MD Work Phone: 1(199)484-128836 [place] [address] 03-16-2025 04:39-0400 Systolic blood pressure 116 mm[Hg] Dr. Ethan Avendano MD Work Phone: 7(133)911-421736 [place] [address] 03-15-2025 21:18-0400 Body height 170.[address] Ethan Avendano MD Work Phone: 6(123)525-209936 [place] [address] 03-15-2025 21:18-0400 Body mass index (BMI) [Ratio] 22.7 kg/m2 Dr. Ethan Avendano MD Work Phone: 6(579)293-600736 [place] [address] 03-15-2025 21:18-0400 Body weight 65.[address] Ethan Avendano MD Work Phone: 3(028)854-120036 [place] [address] 03-05-2025 11:26-0400 Body height 170.[address] Ethan Avendano MD Work Phone: 1(039)539-495436 [place] [address] 03-05-2025 11:26-0400 Body mass index (BMI) [Ratio] 22.7 kg/m2 Dr. Ethan Avendano MD Work Phone: 6(346)149-059336 [place] [address] 03-05-2025 11:26-0400 Body temperature 96.3 [degF] Dr. Ethan Avendano MD Work Phone: 4(598)899-844736 [place] [address] 03-05-2025 11:26-0400 Body weight 65.[address] Ethan Avendano MD Work Phone: 9(847)006-270536 [place] [address] 03-05-2025 11:26-0400 Diastolic blood pressure 62 mm[Hg] Dr. Ethan Avendano MD Work Phone: 7(193)294-127736 [place] [address] 03-05-2025 11:26-0400 Heart rate 97 /min Dr. Ethan Avendano MD Work Phone: [facility] 03-05-2025 11:26-0400 Respiratory rate 16 /min Dr. Ethan Avendano MD Work Phone: [facility] 03-05-2025 11:26-0400 SaO2% (BldA) [Mass fraction] 97 % Dr. Ethan Avendano MD Work Phone: 1(005)718-356092 [place] [address] 03-05-2025 11:26-0400 Systolic blood pressure 118 mm[Hg] Dr. Ethan Avendano MD Work Phone: 3(049)443-402736 [place] [address] 02-05-2025 09:47-0400 Body height 170.[address] Ethan Avendano MD Work Phone: 7(494)115-030236 [place] [address] 02-05-2025 09:47-0400 Body mass index (BMI) [Ratio] 24.1 kg/m2 Dr. Ethan Avendano MD Work Phone: 4(015)367-024092 [place] [address] 02-05-2025 09:47-0400 Body temperature 97.9 [degF] Dr. Ethan Avendano MD Work Phone: 4(129)004-488200 [address] 02-05-2025 09:47-0400 Body weight 69.[address] Ethan Avendano MD Work Phone: 1(173)392-872336 [place] [address] 02-05-2025 09:47-0400 Diastolic blood pressure 62 mm[Hg] Dr. Ethan Avendano MD Work Phone: 4(276)011-913392 [place] [address] 02-05-2025 09:47-0400 Heart rate 86 /min Dr. Ethan Avendano MD Work Phone: 3(897)370-796192 [place] [address] 02-05-2025 09:47-0400 Respiratory rate 16 /min Dr. Ethan Avendano MD Work Phone: [facility] 02-05-2025 09:47-0400 SaO2% (BldA) [Mass fraction] 98 % Dr. Ethan Avendano MD Work Phone: 7(985)292-981092 [place] [address] 02-05-2025 09:47-0400 Systolic blood pressure 114 mm[Hg] Dr. Ethan Avendano MD Work Phone: [facility] 01-02-2025 10:58-0400 Body height 170.[address] Ethan Avendano MD Work Phone: [facility] 01-02-2025 10:58-0400 Body mass index (BMI) [Ratio] 23.8 kg/m2 Dr. Ethan Avendano MD Work Phone: 2(248)519-474300 [address] 01-02-2025 10:58-0400 Body temperature 97.2 [degF] Dr. Ethan Avendano MD Work Phone: 5(281)240-234536 [place] [address] 01-02-2025 10:58-0400 Body weight 68.[address] Ethan Avendano MD Work Phone: 7(281)923-693200 [address] 01-02-2025 10:58-0400 Diastolic blood pressure 76 mm[Hg] Dr. Ethan Avendano MD Work Phone: 9(346)893-096892 [place] [address] 01-02-2025 10:58-0400 Heart rate 82 /min Dr. Ethan Avendano MD Work Phone: 3(568)676-058600 [address] 01-02-2025 10:58-0400 Respiratory rate 16 /min Dr. Ethan Avendano MD Work Phone: 3(321)948-589592 [place] [address] 01-02-2025 10:58-0400 SaO2% (BldA) [Mass fraction] 100 % Dr. Ethan Avendano MD Work Phone: [facility] 01-02-2025 10:58-0400 Systolic blood pressure 116 mm[Hg] Dr. Ethan Avendano MD Work Phone: 0(934)933-201492 [place] [address] 12-05-2024 11:09-0400 Body height 170.[address] Ethan Avendano MD Work Phone: [facility] 12-05-2024 11:09-0400 Body temperature 96.3 [degF] Dr. Ethan Avendano MD Work Phone: 9(317)966-139892 [place] [address] 12-05-2024 11:09-0400 Diastolic blood pressure 52 mm[Hg] Dr. Ethan Avendano MD Work Phone: [facility] 12-05-2024 11:09-0400 Heart rate 83 /min Dr. Ethan Avendano MD Work Phone: [facility] 12-05-2024 11:09-0400 Respiratory rate 16 /min Dr. Ethan Avendano MD Work Phone: 3(052)896-846092 [place] [address] 12-05-2024 11:09-0400 SaO2% (BldA) [Mass fraction] 100 % Dr. Ethan Avendano MD Work Phone: 8(764)943-715892 [place] [address] 12-05-2024 11:09-0400 Systolic blood pressure 107 mm[Hg] Dr. Ethan Avendano MD Work Phone: 6(272)686-031536 [place] [address] 11-28-2024 10:50-0400 Body mass index (BMI) [Ratio] 23.8 kg/m2 Dr. Ethan Avendano MD Work Phone: 6(086)133-033136 [place] [address] 11-28-2024 10:50-0400 Body weight 68.[address] Ethan Avendano MD Work Phone: 9(618)323-052800 [address] 11-28-2024 10:50-0400 Diastolic blood pressure 62 mm[Hg] Dr. Ethan Avendano MD Work Phone: 9(290)286-463292 [place] [address] 11-28-2024 10:50-0400 Heart rate 78 /min Dr. Ethan Avendano MD Work Phone: 0(252)617-182092 [place] [address] 11-28-2024 10:50-0400 Respiratory rate 16 /min Dr. Ethan Avendano MD Work Phone: 0(175)677-058992 [place] [address] 11-28-2024 10:50-0400 Systolic blood pressure 107 mm[Hg] Dr. Ethan Avendano MD Work Phone: 5(469)705-729100 [address] 11-07-2024 11:02-0500 Body height 170.[address] Ethan Avendano MD Work Phone: 3(843)304-723492 [place] [address] 11-07-2024 11:02-0500 Body mass index (BMI) [Ratio] 22.7 kg/m2 Dr. Ethan Avendano MD Work Phone: 2(733)026-693792 [place] [address] 11-07-2024 11:02-0500 Body temperature 97 [degF] Dr. Ethan Avendano MD Work Phone: 6(704)392-807792 [place] [address] 11-07-2024 11:02-0500 Body weight 65.[address] Ethan Avendano MD Work Phone: 3(291)916-931792 [place] [address] 11-07-2024 11:02-0500 Diastolic blood pressure 58 mm[Hg] Dr. Ethan Avendano MD Work Phone: 9(289)488-383300 [address] 11-07-2024 11:02-0500 Heart rate 82 /min Dr. Ethan Avendano MD Work Phone: 4(719)049-067236 [place] [address] 11-07-2024 11:02-0500 Respiratory rate 16 /min Dr. Ethan Avendano MD Work Phone: 9(154)105-652236 [place] [address] 11-07-2024 11:02-0500 SaO2% (BldA) [Mass fraction] 99 % Dr. Ethan Avendano MD Work Phone: 1(829)065-230736 [place] [address] 11-07-2024 11:02-0500 Systolic blood pressure 121 mm[Hg] Dr. Ethan Avendano MD Work Phone: 8(791)485-557736 [place] [address] 10-10-2024 09:52-0500 Body mass index (BMI) [Ratio] 24.7 kg/m2 Dr. Ethan Avendano MD Work Phone: 4(619)774-262692 [place] [address] 10-10-2024 09:52-0500 Body temperature 97.5 [degF] Dr. Ethan Avendano MD Work Phone: 6(857)947-911192 [place] [address] 10-10-2024 09:52-0500 Body weight 71.[address] Ethan Avendano MD Work Phone: 1(704)730-403336 [place] [address] 10-10-2024 09:52-0500 Diastolic blood pressure 58 mm[Hg] Dr. Ethan Avendano MD Work Phone: 9(394)982-079636 [place] [address] 10-10-2024 09:52-0500 Heart rate 65 /min Dr. Ethan Avendano MD Work Phone: [facility] 10-10-2024 09:52-0500 Respiratory rate 16 /min Dr. Ethan Avendano MD Work Phone: 4(195)971-278692 [place] [address] 10-10-2024 09:52-0500 SaO2% (BldA) [Mass fraction] 99 % Dr. Ethan Avendano MD Work Phone: 6(748)095-799736 [place] [address] 10-10-2024 09:52-0500 Systolic blood pressure 127 mm[Hg] Dr. Ethan Avendano MD Work Phone: 5(019)958-977900 [address] 09-05-2024 12:02-0500 Body mass index (BMI) [Ratio] 24.3 kg/m2 Dr. Ethan Avendano MD Work Phone: 2(431)004-737236 [place] [address] 09-05-2024 12:02-0500 Body temperature 97.7 [degF] Dr. Ethan Avendano MD Work Phone: 3(586)825-251336 [place] [address] 09-05-2024 12:02-0500 Body weight 70.[address] Ethan Avendano MD Work Phone: 0(229)877-380436 [place] [address] 09-05-2024 12:02-0500 Diastolic blood pressure 53 mm[Hg] Dr. Ethan Avendano MD Work Phone: 8(988)788-643936 [place] [address] 09-05-2024 12:02-0500 Heart rate 62 /min Dr. Ethan Avendano MD Work Phone: 6(545)627-121036 [place] [address] 09-05-2024 12:02-0500 Respiratory rate 16 /min Dr. Ethan Avendano MD Work Phone: 4(590)032-987992 [place] [address] 09-05-2024 12:02-0500 SaO2% (BldA) [Mass fraction] 100 % Dr. Ethan Avendano MD Work Phone: 3(847)213-297292 [place] [address] 09-05-2024 12:02-0500 Systolic blood pressure 136 mm[Hg] Dr. Ethan Avendano MD Work Phone: 9(362)378-520136 [place] [address] 08-23-2024 09:10-0500 Body temperature 98 [degF] Dr. Ethan Avendano MD Work Phone: [facility] 08-23-2024 09:10-0500 Diastolic blood pressure 64 mm[Hg] Dr. Ethan Avendano MD Work Phone: [facility] 08-23-2024 09:10-0500 Heart rate 74 /min Dr. Ethan Avendano MD Work Phone: 2(394)987-090700 [address] 08-23-2024 09:10-0500 Respiratory rate 16 /min Dr. Ethan Avendano MD Work Phone: 0(044)196-797600 [address] 08-23-2024 09:10-0500 SaO2% (BldA) [Mass fraction] 97 % Dr. Ethan Avendano MD Work Phone: 7(965)786-954200 [address] 08-23-2024 09:10-0500 Systolic blood pressure 106 mm[Hg] Dr. Ethan Avendano MD Work Phone: 5(059)353-697336 [place] [address] 08-23-2024 07:29-0500 Body mass index (BMI) [Ratio] 24.3 kg/m2 Dr. Ethan Avendano MD Work Phone: 3(721)009-191200 [address] 08-23-2024 07:29-0500 Body weight 70.[address] Ethan Avendano MD Work Phone: 2(166)789-620000 [address] 08-08-2024 11:47-0500 Body mass index (BMI) [Ratio] 24.4 kg/m2 Dr. Ethan Avendano MD Work Phone: 8(666)757-803192 [place] [address] 08-08-2024 11:47-0500 Body temperature 96.5 [degF] Dr. Ethan Avendano MD Work Phone: 1(600)863-059892 [place] [address] 08-08-2024 11:47-0500 Body weight 70.[address] Ethan Avendano MD Work Phone: 9(872)426-587692 [place] [address] 08-08-2024 11:47-0500 Diastolic blood pressure 56 mm[Hg] Dr. Ethan Avendano MD Work Phone: [facility] 08-08-2024 11:47-0500 Heart rate 62 /min Dr. Ethan Avendano MD Work Phone: 3(012)250-838092 [place] [address] 08-08-2024 11:47-0500 Respiratory rate 16 /min Dr. Ethan Avendano MD Work Phone: 1(991)385-747136 [place] [address] 08-08-2024 11:47-0500 SaO2% (BldA) [Mass fraction] 99 % Dr. Ethan Avendano MD Work Phone: 0(026)870-258036 [place] [address] 08-08-2024 11:47-0500 Systolic blood pressure 132 mm[Hg] Dr. Ethan Avendano MD Work Phone: 6(079)591-429036 [place] [address] 07-11-2024 11:11-0500 Body mass index (BMI) [Ratio] 24.9 kg/m2 Dr. Ethan Avendano MD Work Phone: 3(838)794-498436 [place] [address] 07-11-2024 11:11-0500 Body temperature 97 [degF] Dr. Ethan Avendano MD Work Phone: 6(945)992-164836 [place] [address] 07-11-2024 11:11-0500 Body weight 72.[address] Ethan Avendano MD Work Phone: 0(452)010-344336 [place] [address] 07-11-2024 11:11-0500 Diastolic blood pressure 47 mm[Hg] Dr. Ethan Avendano MD Work Phone: 7(218)733-604536 [place] [address] 07-11-2024 11:11-0500 Heart rate 59 /min Dr. Ethan Avendano MD Work Phone: 7(882)609-011936 [place] [address] 07-11-2024 11:11-0500 Respiratory rate 16 /min Dr. Ethan Avendano MD Work Phone: 6(546)498-368436 [place] [address] 07-11-2024 11:11-0500 SaO2% (BldA) [Mass fraction] 99 % Dr. Ethan Avendano MD Work Phone: 8(911)607-553936 [place] [address] 07-11-2024 11:11-0500 Systolic blood pressure 130 mm[Hg] Dr. Ethan Avendano MD Work Phone: 0(750)762-975736 [place] [address] 01-04-2024 10:36-0400 Body height 170.[address] Ethan Avendano Work Phone: 8(061)591-997736 [place] [address] 01-04-2024 10:36-0400 Body temperature 97.8 [degF] Dr. Ethan Avendano Work Phone: [facility] 01-04-2024 10:36-0400 Diastolic blood pressure 50 mm[Hg] Dr. Ethan Avendano Work Phone: [facility] 01-04-2024 10:36-0400 Heart rate 61 /min Dr. Ethan Avendano Work Phone: [facility] 01-04-2024 10:36-0400 Respiratory rate 16 /min Dr. Ethan Avendano Work Phone: [facility] 01-04-2024 10:36-0400 SaO2% (BldA) [Mass fraction] 98 % Dr. Ethan Avendano Work Phone: [facility] 01-04-2024 10:36-0400 Systolic blood pressure 105 mm[Hg] Dr. Ethan Avendano Work Phone: [facility] 12-07-2023 10:46-0400 Body height 170.[address] Ethan Avendano Work Phone: [facility] 12-07-2023 10:46-0400 Body temperature 96.8 [degF] Dr. Ethan Avendano Work Phone: [facility] 12-07-2023 10:46-0400 Diastolic blood pressure 61 mm[Hg] Dr. Ethan Avendano Work Phone: [facility] 12-07-2023 10:46-0400 Heart rate 62 /min Dr. Ethan Avendano Work Phone: [facility] 12-07-2023 10:46-0400 Respiratory rate 16 /min Dr. Ethan Avendano Work Phone: [facility] 12-07-2023 10:46-0400 SaO2% (BldA) [Mass fraction] 100 % Dr. Ethan Avendano Work Phone: [facility] 12-07-2023 10:46-0400 Systolic blood pressure 116 mm[Hg] Dr. Ethan Avendano Work Phone: [facility] 11-09-2023 10:29-0500 Body height 170.[address] Ethan Avendano Work Phone: [facility] 11-09-2023 10:29-0500 Body temperature 97.9 [degF] Dr. Ethan Avendano Work Phone: [facility] 11-09-2023 10:29-0500 Diastolic blood pressure 62 mm[Hg] Dr. Ethan Avendano Work Phone: [facility] 11-09-2023 10:29-0500 Heart rate 73 /min Dr. Ethan Avendano Work Phone: [facility] 11-09-2023 10:29-0500 Respiratory rate 16 /min Dr. Ethan Avendano Work Phone: [facility] 11-09-2023 10:29-0500 Systolic blood pressure 117 mm[Hg] Dr. Ethan Avendano Work Phone: [facility] 10-10-2023 10:23-0500 Body mass index (BMI) [Ratio] 24.9 kg/m2 Dr. Ethan Avendano Work Phone: [facility] 10-10-2023 10:23-0500 Body weight 72.[address] Ethan Avendano Work Phone: [facility] 10-10-2023 10:23-0500 Diastolic blood pressure 73 mm[Hg] Dr. Ethan Avendano Work Phone: [facility] 10-10-2023 10:23-0500 Heart rate 63 /min Dr. Ethan Avendano Work Phone: [facility] 10-10-2023 10:23-0500 Respiratory rate 18 /min Dr. Ethan Avendano Work Phone: [facility] 10-10-2023 10:23-0500 SaO2% (BldA) [Mass fraction] 99 % Dr. Ethan Avendano Work Phone: [facility] 10-10-2023 10:23-0500 Systolic blood pressure 128 mm[Hg] Dr. Ethan Avendano Work Phone: [facility] 10-05-2023 10:05-0500 Body height 170.18 cm [facility] 10-05-2023 10:05-0500 Body temperature 98.1 [degF] [facility] 10-05-2023 10:05-0500 Diastolic blood pressure 45 mm[Hg] [facility] 10-05-2023 10:05-0500 Heart rate 63 /min [facility] 10-05-2023 10:05-0500 Respiratory rate 16 /min [facility] 10-05-2023 10:05-0500 SaO2% (BldA) [Mass fraction] 100 % [facility] 10-05-2023 10:05-0500 Systolic blood pressure 105 mm[Hg] [facility] 09-07-2023 10:25-0500 Body height 170.18 cm [facility] 09-07-2023 10:25-0500 Body mass index (BMI) [Ratio] 24.3 kg/m2 [facility] 09-07-2023 10:25-0500 Body temperature 97 [degF] [facility] 09-07-2023 10:25-0500 Body weight 70.3 kg [facility] 09-07-2023 10:25-0500 Diastolic blood pressure 51 mm[Hg] [facility] 09-07-2023 10:25-0500 Heart rate 64 /min [facility] 09-07-2023 10:25-0500 Respiratory rate 16 /min [facility] 09-07-2023 10:25-0500 SaO2% (BldA) [Mass fraction] 97 % [facility] 09-07-2023 10:25-0500 Systolic blood pressure 114 mm[Hg] [facility] 08-10-2023 11:01-0500 Body mass index (BMI) [Ratio] 24.3 kg/m2 [facility] 08-10-2023 11:01-0500 Body weight 70.3 kg [facility] 07-06-2023 10:12-0400 Body height 170.[address] Ethan Avendano Work Phone: [facility] 07-06-2023 10:12-0400 Body mass index (BMI) [Ratio] 24.1 kg/m2 Dr. Ethan Avendano Work Phone: [facility] 07-06-2023 10:12-0400 Body temperature 97.6 [degF] Dr. Ethan Avendano Work Phone: [facility] 07-06-2023 10:12-0400 Body weight 69.[address] Ethan Avendano Work Phone: [facility] 07-06-2023 10:12-0400 Diastolic blood pressure 58 mm[Hg] Dr. Ethan Avendano Work Phone: [facility] 07-06-2023 10:12-0400 Heart rate 75 /min Dr. Ethan Avendano Work Phone: [facility] 07-06-2023 10:12-0400 Respiratory rate 16 /min Dr. Ethan Avendano Work Phone: [facility] 07-06-2023 10:12-0400 SaO2% (BldA) [Mass fraction] 98 % Dr. Ethan Avendano Work Phone: [facility] 07-06-2023 10:12-0400 Systolic blood pressure 130 mm[Hg] Dr. Ethan Avendano Work Phone: [facility] 06-08-2023 11:06-0400 Body temperature 97.1 [degF] Dr. Ethan Avendano Work Phone: [facility] 06-08-2023 11:06-0400 Diastolic blood pressure 56 mm[Hg] Dr. Ethan Avendano Work Phone: [facility] 06-08-2023 11:06-0400 Heart rate 65 /min Dr. Ethan Avendano Work Phone: [facility] 06-08-2023 11:06-0400 Respiratory rate 16 /min Dr. Ethan Avendano Work Phone: [facility] 06-08-2023 11:06-0400 SaO2% (BldA) [Mass fraction] 100 % Dr. Ethan Avendano Work Phone: [facility] 06-08-2023 11:06-0400 Systolic blood pressure 125 mm[Hg] Dr. Ethan Avendano Work Phone: 1(484)515-217992 [place] [address] 05-10-2023 11:11-0400 Body height 170.[address] Ethan Avendano Work Phone: 3(495)685-803992 [place] [address] 05-10-2023 11:11-0400 Body mass index (BMI) [Ratio] 24.3 kg/m2 Dr. Ethan Avendano Work Phone: 4(635)687-042600 [address] 05-10-2023 11:11-0400 Body temperature 98.3 [degF] Dr. Ethan Avendano Work Phone: 1(388)766-424200 [address] 05-10-2023 11:11-0400 Body weight 70.[address] Ethan Avendano Work Phone: 4(379)120-869300 [address] 05-10-2023 11:11-0400 Diastolic blood pressure 51 mm[Hg] Dr. Ethan Avendano Work Phone: 9(823)819-217200 [address] 05-10-2023 11:11-0400 Heart rate 73 /min Dr. Ethan Avendano Work Phone: 6(204)154-435700 [address] 05-10-2023 11:11-0400 Respiratory rate 16 /min Dr. Ethan Avendano Work Phone: [facility] 05-10-2023 11:11-0400 SaO2% (BldA) [Mass fraction] 97 % Dr. Ethan Avendano Work Phone: [facility] 05-10-2023 11:11-0400 Systolic blood pressure 117 mm[Hg] Dr. Ethan Avendano Work Phone: [facility] 04-05-2023 11:03-0400 Body height 170.[address] Ethan Avendano Work Phone: 5(614)156-459292 [place] [address] 04-05-2023 11:03-0400 Body temperature 97.2 [degF] Dr. Ethan Avendano Work Phone: [facility] 04-05-2023 11:03-0400 Diastolic blood pressure 62 mm[Hg] Dr. Ethan Avendano Work Phone: [facility] 04-05-2023 11:03-0400 Heart rate 63 /min Dr. Ethan Avendano Work Phone: [facility] 04-05-2023 11:03-0400 Respiratory rate 16 /min Dr. Ethan Avendano Work Phone: [facility] 04-05-2023 11:03-0400 SaO2% (BldA) [Mass fraction] 98 % Dr. Ethan Avendano Work Phone: [facility] 04-05-2023 11:03-0400 Systolic blood pressure 122 mm[Hg] Dr. Ethan Avendano Work Phone: [facility] 03-08-2023 12:58-0400 Body height 170.[address] Etahn Avendano Work Phone: [facility] 03-08-2023 12:58-0400 Body mass index (BMI) [Ratio] 23.9 kg/m2 Dr. Ethan Avendano Work Phone: [facility] 03-08-2023 12:58-0400 Body temperature 98.6 [degF] Dr. Ethan Avendano Work Phone: [facility] 03-08-2023 12:58-0400 Body weight 69.[address] Ethan Avendano Work Phone: [facility] 03-08-2023 12:58-0400 Diastolic blood pressure 53 mm[Hg] Dr. Ethan Avendano Work Phone: [facility] 03-08-2023 12:58-0400 Heart rate 71 /min Dr. Ethan Avendano Work Phone: [facility] 03-08-2023 12:58-0400 Respiratory rate 16 /min Dr. Ethan Avendano Work Phone: [facility] 03-08-2023 12:58-0400 SaO2% (BldA) [Mass fraction] 97 % Dr. Ethan Avendano Work Phone: [facility] 03-08-2023 12:58-0400 Systolic blood pressure 119 mm[Hg] Dr. Ethan Avendano Work Phone: [facility] 02-03-2023 11:03-0400 Body height 170.[address] Ethan Avendano Work Phone: [facility] 02-03-2023 11:03-0400 Body temperature 97 [degF] Dr. Ethan Avendano Work Phone: 0(498)116-132600 [address] 02-03-2023 11:03-0400 Diastolic blood pressure 53 mm[Hg] Dr. Ethan Avendano Work Phone: 8(253)967-952992 [place] [address] 02-03-2023 11:03-0400 Heart rate 66 /min Dr. Ethan Avendano Work Phone: [facility] 02-03-2023 11:03-0400 Respiratory rate 16 /min Dr. Ethan Avendano Work Phone: [facility] 02-03-2023 11:03-0400 SaO2% (BldA) [Mass fraction] 100 % Dr. Ethan Avendano Work Phone: [facility] 02-03-2023 11:03-0400 Systolic blood pressure 117 mm[Hg] Dr. Ethan Avendano Work Phone: [facility] 02-01-2023 08:32-0400 Body mass index (BMI) [Ratio] 23.8 kg/m2 Dr. Ethan Avendano Work Phone: [facility] 02-01-2023 08:32-0400 Body weight 68.[address] Ethan Avendano Work Phone: [facility] 02-01-2023 08:32-0400 Diastolic blood pressure 69 mm[Hg] Dr. Ethan Avendano Work Phone: [facility] 02-01-2023 08:32-0400 Heart rate 70 /min Dr. Ethan Avendano Work Phone: [facility] 02-01-2023 08:32-0400 Respiratory rate 18 /min Dr. Ethan Avendano Work Phone: [facility] 02-01-2023 08:32-0400 SaO2% (BldA) [Mass fraction] 99 % Dr. Ethan Avendano Work Phone: [facility] 02-01-2023 08:32-0400 Systolic blood pressure 117 mm[Hg] Dr. Ethan Avendano Work Phone: [facility] 01-05-2023 09:29-0400 Body height 170.18 cm [facility] 01-05-2023 09:29-0400 Body temperature 98.4 [degF] [facility] 01-05-2023 09:29-0400 Diastolic blood pressure 53 mm[Hg] [facility] 01-05-2023 09:29-0400 Heart rate 73 /min [facility] 01-05-2023 09:29-0400 Respiratory rate 16 /min [facility] 01-05-2023 09:29-0400 SaO2% (BldA) [Mass fraction] 99 % [facility] 01-05-2023 09:29-0400 Systolic blood pressure 114 mm[Hg] [facility] 12-29-2022 08:06-0400 Diastolic blood pressure 64 mm[Hg] Latisha Robles MD Work Phone: [facility] 12-29-2022 08:06-0400 Heart rate 99 /min Latisha Robles MD Work Phone: [facility] 12-29-2022 08:06-0400 SaO2% (BldA) [Mass fraction] 82 % Latisha Robles MD Work Phone: [facility] 12-29-2022 08:06-0400 Systolic blood pressure 121 mm[Hg] Latisha Robles MD Work Phone: [facility] 12-08-2022 11:20-0400 Body height 170.18 cm [facility] 12-08-2022 11:20-0400 Diastolic blood pressure 87 mm[Hg] [facility] 12-08-2022 11:20-0400 Heart rate 76 /min [facility] 12-08-2022 11:20-0400 Respiratory rate 16 /min [facility] 12-08-2022 11:20-0400 SaO2% (BldA) [Mass fraction] 100 % [facility] 12-08-2022 11:20-0400 Systolic blood pressure 130 mm[Hg] [facility] 11-04-2022 11:23-0500 Body height 170.18 cm [facility] 11-04-2022 11:23-0500 Body temperature 97.9 [degF] [facility] 11-04-2022 11:23-0500 Diastolic blood pressure 60 mm[Hg] [facility] 11-04-2022 11:23-0500 Heart rate 60 /min [facility] 11-04-2022 11:23-0500 Respiratory rate 16 /min [facility] 11-04-2022 11:23-0500 SaO2% (BldA) [Mass fraction] 100 % [facility] 11-04-2022 11:23-0500 Systolic blood pressure 123 mm[Hg] [facility] 10-07-2022 11:02-0500 Body height 170.18 cm [facility] 10-07-2022 11:02-0500 Body mass index (BMI) [Ratio] 24.3 kg/m2 [facility] 10-07-2022 11:02-0500 Body temperature 97.9 [degF] [facility] 10-07-2022 11:02-0500 Body weight 70.3 kg [facility] 10-07-2022 11:02-0500 Diastolic blood pressure 55 mm[Hg] [facility] 10-07-2022 11:02-0500 Heart rate 63 /min [facility] 10-07-2022 11:02-0500 Respiratory rate 16 /min [facility] 10-07-2022 11:02-0500 SaO2% (BldA) [Mass fraction] 100 % [facility] 10-07-2022 11:02-0500 Systolic blood pressure 132 mm[Hg] [facility] 09-09-2022 11:12-0500 Body height 170.18 cm [facility] 09-09-2022 11:12-0500 Body mass index (BMI) [Ratio] 24.5 kg/m2 [facility] 09-09-2022 11:12-0500 Body temperature 97.7 [degF] [facility] 09-09-2022 11:12-0500 Body weight 71.21 kg [facility] 09-09-2022 11:12-0500 Diastolic blood pressure 66 mm[Hg] [facility] 09-09-2022 11:12-0500 Heart rate 68 /min [facility] 09-09-2022 11:12-0500 Respiratory rate 16 /min [facility] 09-09-2022 11:12-0500 SaO2% (BldA) [Mass fraction] 99 % [facility] 09-09-2022 11:12-0500 Systolic blood pressure 149 mm[Hg] [facility] 08-04-2022 10:51-0500 Body height 170.[address] Ethan Avendano Work Phone: [facility] Work Phone: 08-04-2022 10:51-0500 Body mass index (BMI) [Ratio] 23.8 kg/m2 Dr. Ethan Avendano Work Phone: [facility] 08-04-2022 10:51-0500 Body temperature 96.9 [degF] Dr. Ethan Avendano Work Phone: [facility] 08-04-2022 10:51-0500 Body weight 68.[address] Ethan Avendano Work Phone: [facility] 08-04-2022 10:51-0500 Diastolic blood pressure 59 mm[Hg] Dr. Ethan Avendano Work Phone: [facility] 08-04-2022 10:51-0500 Heart rate 72 /min Dr. Ethan Avendano Work Phone: [facility] 08-04-2022 10:51-0500 Respiratory rate 12 /min Dr. Ethan Avendano Work Phone: [facility] 08-04-2022 10:51-0500 SaO2% (BldA) [Mass fraction] 100 % Dr. Ethan Avendano Work Phone: [facility] 08-04-2022 10:51-0500 Systolic blood pressure 126 mm[Hg] Dr. Ethan Avendano Work Phone: [facility] 07-08-2022 11:09-0400 Body height 170.[address] Ethan Avendano Work Phone: [facility] Work Phone: 07-08-2022 11:09-0400 Body temperature 98.1 [degF] Dr. Ethan Avendano Work Phone: [facility] 07-08-2022 11:09-0400 Diastolic blood pressure 63 mm[Hg] Dr. Ethan Avendano Work Phone: [facility] 07-08-2022 11:09-0400 Heart rate 67 /min Dr. Ethan Avendano Work Phone: [facility] 07-08-2022 11:09-0400 Respiratory rate 16 /min Dr. Ethan Avendano Work Phone: [facility] 07-08-2022 11:09-0400 SaO2% (BldA) [Mass fraction] 99 % Dr. Ethan Avendano Work Phone: [facility] 07-08-2022 11:09-0400 Systolic blood pressure 135 mm[Hg] Dr. Ethan Avendano Work Phone: [facility] 06-10-2022 11:18-0400 Body height 170.[address] Ethan Avendano Work Phone: [facility] Work Phone: 06-10-2022 11:18-0400 Body mass index (BMI) [Ratio] 24.4 kg/m2 Dr. Ethan Avendano Work Phone: [facility] 06-10-2022 11:18-0400 Body temperature 98.2 [degF] Dr. Ethan Avendano Work Phone: [facility] 06-10-2022 11:18-0400 Body weight 70.[address] Ethan Avendano Work Phone: [facility] 06-10-2022 11:18-0400 Diastolic blood pressure 59 mm[Hg] Dr. Ethan Avendano Work Phone: [facility] 06-10-2022 11:18-0400 Heart rate 66 /min Dr. Ethan Avendano Work Phone: [facility] 06-10-2022 11:18-0400 Respiratory rate 12 /min Dr. Ethan Avendano Work Phone: [facility] 06-10-2022 11:18-0400 SaO2% (BldA) [Mass fraction] 99 % Dr. Ethan Avendano Work Phone: [facility] 06-10-2022 11:18-0400 Systolic blood pressure 127 mm[Hg] Dr. Ethan Avendano Work Phone: [facility] 04-08-2022 11:31-0400 Body temperature 96.6 [degF] Dr. Ethan Avendano Work Phone: [facility] Work Phone: 04-08-2022 11:31-0400 Diastolic blood pressure 57 mm[Hg] Dr. Ethan Avendano Work Phone: [facility] Work Phone: 04-08-2022 11:31-0400 Heart rate 68 /min Dr. Ethan Avendano Work Phone: [facility] Work Phone: 04-08-2022 11:31-0400 SaO2% (BldA) [Mass fraction] 98 % Dr. Ethan Avendano Work Phone: [facility] Work Phone: 04-08-2022 11:31-0400 Systolic blood pressure 118 mm[Hg] Dr. Ethan Avendano Work Phone: [facility] Work Phone: 03-16-2022 11:23-0400 Body height 170.[address] Ethan Avendano Work Phone: [facility] Work Phone: 03-04-2022 11:24-0400 Body height 170.18 cm [facility] Work Phone: 03-04-2022 11:24-0400 Body mass index (BMI) [Ratio] 24.3 kg/m2 [facility] Work Phone: 03-04-2022 11:24-0400 Body temperature 98.4 [degF] [facility] Work Phone: 03-04-2022 11:24-0400 Body weight 70.3 kg [facility] Work Phone: 03-04-2022 11:24-0400 Diastolic blood pressure 54 mm[Hg] [facility] Work Phone: 03-04-2022 11:24-0400 Heart rate 65 /min [facility] Work Phone: 03-04-2022 11:24-0400 Respiratory rate 14 /min [facility] Work Phone: 03-04-2022 11:24-0400 SaO2% (BldA) [Mass fraction] 96 % [facility] Work Phone: 03-04-2022 11:24-0400 Systolic blood pressure 126 mm[Hg] [facility] Work Phone: 02-04-2022 10:46-0400 Body height 170.18 cm [facility] Work Phone: 02-04-2022 10:46-0400 Body mass index (BMI) [Ratio] 24.1 kg/m2 [facility] Work Phone: 02-04-2022 10:46-0400 Body temperature 98.2 [degF] [facility] Work Phone: 02-04-2022 10:46-0400 Body weight 69.85 kg [facility] Work Phone: 02-04-2022 10:46-0400 Diastolic blood pressure 48 mm[Hg] [facility] Work Phone: 02-04-2022 10:46-0400 Heart rate 60 /min [facility] Work Phone: 02-04-2022 10:46-0400 Respiratory rate 16 /min [facility] Work Phone: 02-04-2022 10:46-0400 SaO2% (BldA) [Mass fraction] 97 % [facility] Work Phone: 02-04-2022 10:46-0400 Systolic blood pressure 108 mm[Hg] [facility] Work Phone: 01-07-2022 11:04-0400 Body temperature 97.6 [degF] [facility] Work Phone: 01-07-2022 11:04-0400 Diastolic blood pressure 61 mm[Hg] [facility] Work Phone: 01-07-2022 11:04-0400 Heart rate 68 /min [facility] Work Phone: 01-07-2022 11:04-0400 Respiratory rate 16 /min [facility] Work Phone: 01-07-2022 11:04-0400 SaO2% (BldA) [Mass fraction] 96 % [facility] Work Phone: 01-07-2022 11:04-0400 Systolic blood pressure 128 mm[Hg] [facility] Work Phone: 12-03-2021 11:12-0400 Body height 170.[address] Ethan Avendano Work Phone: [facility] Work Phone: 12-03-2021 11:12-0400 Body mass index (BMI) [Ratio] 24.3 kg/m2 Dr. Ethan Avendano Work Phone: [facility] Work Phone: 12-03-2021 11:12-0400 Body temperature 98.1 [degF] Dr. Ethan Avendano Work Phone: [facility] Work Phone: 12-03-2021 11:12-0400 Body weight 70.[address] Ethan Avendano Work Phone: [facility] Work Phone: 12-03-2021 11:12-0400 Diastolic blood pressure 70 mm[Hg] Dr. Ethan Avendano Work Phone: [facility] Work Phone: 12-03-2021 11:12-0400 Heart rate 72 /min Dr. Ethan Avendano Work Phone: [facility] Work Phone: 12-03-2021 11:12-0400 Respiratory rate 16 /min Dr. Ethan Avendano Work Phone: [facility] Work Phone: 12-03-2021 11:12-0400 SaO2% (BldA) [Mass fraction] 97 % Dr. Ethan Avendano Work Phone: [facility] Work Phone: 12-03-2021 11:12-0400 Systolic blood pressure 142 mm[Hg] Dr. Ethan Avendano Work Phone: [facility] Work Phone: 11-05-2021 10:17-0500 Body mass index (BMI) [Ratio] 24.7 kg/m2 Dr. Ethan Avendano Work Phone: [facility] Work Phone: 11-05-2021 10:17-0500 Body temperature 98.4 [degF] Dr. Ethan Avendano Work Phone: [facility] Work Phone: 11-05-2021 10:17-0500 Body weight 71.[address] Ethan Avendano Work Phone: [facility] Work Phone: 11-05-2021 10:17-0500 Diastolic blood pressure 56 mm[Hg] Dr. Ethan Avendano Work Phone: [facility] Work Phone: 11-05-2021 10:17-0500 Heart rate 63 /min Dr. Ethan Avendano Work Phone: [facility] Work Phone: 11-05-2021 10:17-0500 Respiratory rate 16 /min Dr. Ethan Avendano Work Phone: [facility] Work Phone: 11-05-2021 10:17-0500 SaO2% (BldA) [Mass fraction] 100 % Dr. Ethan Avendano Work Phone: [facility] Work Phone: 11-05-2021 10:17-0500 Systolic blood pressure 120 mm[Hg] Dr. Ethan Avendano Work Phone: [facility] Work Phone: 10-08-2021 11:15-0500 Body temperature 96.6 [degF] Dr. Ethan Avendano Work Phone: [facility] Work Phone: 10-08-2021 11:15-0500 Diastolic blood pressure 57 mm[Hg] Dr. Ethan Avendano Work Phone: [facility] Work Phone: 10-08-2021 11:15-0500 Heart rate 62 /min Dr. Ethan Avendano Work Phone: [facility] Work Phone: 10-08-2021 11:15-0500 SaO2% (BldA) [Mass fraction] 98 % Dr. Ethan Avendano Work Phone: [facility] Work Phone: 10-08-2021 11:15-0500 Systolic blood pressure 123 mm[Hg] Dr. Ethan Avendano Work Phone: [facility] Work Phone: 10-08-2021 09:20-0500 Respiratory rate 16 /min Dr. Ethan Avendano Work Phone: [facility] Work Phone: 09-10-2021 10:35-0500 Body mass index (BMI) [Ratio] 24.7 kg/m2 Dr. Ethan Avendano Work Phone: [facility] Work Phone: 09-10-2021 10:35-0500 Body temperature 98.5 [degF] Dr. Ethan Avendano Work Phone: [facility] Work Phone: 09-10-2021 10:35-0500 Body weight 71.[address] Ethan Avendano Work Phone: [facility] Work Phone: 09-10-2021 10:35-0500 Diastolic blood pressure 65 mm[Hg] Dr. Ethan Avendano Work Phone: [facility] Work Phone: 09-10-2021 10:35-0500 Heart rate 56 /min Dr. Ethan Avendano Work Phone: [facility] Work Phone: 09-10-2021 10:35-0500 Respiratory rate 16 /min Dr. Ethan Avendano Work Phone: [facility] Work Phone: 09-10-2021 10:35-0500 SaO2% (BldA) [Mass fraction] 95 % Dr. Ethan Avendano Work Phone: [facility] Work Phone: 09-10-2021 10:35-0500 Systolic blood pressure 116 mm[Hg] Dr. Ethan Avendano Work Phone: [facility] Work Phone: 09-06-2021 08:47-0500 Body weight 72.[address] Ethan Avendano Work Phone: [facility] Work Phone: 09-06-2021 08:47-0500 Diastolic blood pressure 66 mm[Hg] Dr. Ethan Avendano Work Phone: [facility] Work Phone: 09-06-2021 08:47-0500 Heart rate 56 /min Dr. Ethan Avendano Work Phone: [facility] Work Phone: 09-06-2021 08:47-0500 Respiratory rate 18 /min Dr. Ethan Avendano Work Phone: [facility] Work Phone: 09-06-2021 08:47-0500 SaO2% (BldA) [Mass fraction] 100 % Dr. Ethan Avendano Work Phone: [facility] Work Phone: 09-06-2021 08:47-0500 Systolic blood pressure 150 mm[Hg] Dr. Ethan Avendano Work Phone: [facility] Work Phone: 02-16-2021 10:08-0400 Body mass index (BMI) [Ratio] 24.3 kg/m2 Dr. Ethan Avendano Work Phone: [facility] Work Phone: Encounters Encounter Date Encounter Type Care Provider Facility Start: 2025 Evaluation and management of inpatient Dr. Lacy Johnston MD -[facility] Surgical 3 Work Phone: Start: [address] Ethan Avendano MD Work Phone: -[facility] Start: 03-16-2025 End: 03-21-2025 Evaluation and management of inpatient Bhanu Hunter DO Work Phone: [facility] Surgical Progressive Care Unit PCU H6 Comment [...] ambulatory Dr. Ethan Avendano MD Work Phone: [facility] Work Phone: Start: 01-06-2025 End: 01-06-[address] Ethan Avendano MD Work Phone: [facility] Work Phone: Start: 01-06-2025 End: 01-06-2025 Discharged Recurring Sandra ALVAREZ -Physical Therapy Work Phone: Start: 01-02-2025 End: 01-02-[address] Ethan Avendano MD -Medical Out Work Phone: Start: 01-02-2025 End: 01-02-2025 ambulatory Ethan Avendano Facility:[facility] Start: 12-25-2024 End: 12-25-[address] [facility] Start: 12-25-2024 End: 12-25-2024 ambulatory Ethan Avendano Facility:[facility] Start: 12-19-2024 Registered Recurring Sandra ALVAREZ -Physical Therapy Work Phone: Start: 12-17-2024 End: 12-17-[address] Ethan Avendano MD Work Phone: [facility] Work Phone: Start: 12-17-2024 End: 12-17-[address] Demian Ramsay MD -Cardiovascular Services Work Phone: Start: 12-17-2024 End: 12-17-2024 ambulatory Ethan Avendano Facility:[facility] Start: 12-05-2024 End: 12-05-[address] Ethan Avendano MD -Medical Out Work Phone: Start: 12-05-2024 End: 12-05-[address] Ethan Avendano MD Work Phone: [facility] Work Phone: Start: 12-04-2024 Registered Recurring Sandra ALVAREZ -Physical Therapy Work Phone: Start: 11-28-2024 End: 11-28-[address] Demian Ramsay MD -[facility] Work Phone: Start: 11-28-2024 End: 11-28-2024 ambulatory Ethan Avendano Facility:[facility] [place] [facility] Start: 11-07-2024 End: 11-07-[address] Ethan Avendano MD -Medical Out Work Phone: Start: 11-07-2024 End: 11-07-[address] Ethan Avendano MD Work Phone: [facility] Work Phone: Start: 10-29-2024 End: 10-29-[address] Ethan Avendano MD Work Phone: [facility] Work Phone: Start: 10-29-2024 End: 10-29-[address] Ethan Avendano MD -Laboratory, [place] Work Phone: Start: 10-29-2024 End: 10-29-2024 ambulatory Ethan [facility] Start: 10-10-2024 End: 10-10-[address] Ethan Avendano MD -Medical Out Work Phone: Start: 10-10-2024 End: 10-10-2024 ambulatory [facility] Start: 09-11-2024 End: 09-11-[address] Jameel Oseguera MD -Radiology, [facility] Work Phone: Start: 09-11-2024 End: 09-11-2024 [facility] Start: 09-05-2024 End: 09-05-[address] Ethan Avendano MD -Medical Out Work Phone: Start: 09-05-2024 End: 09-05-2024 [facility] Ethan Avendano [facility] Start: 08-23-2024 Non-patient / Non-visit Dr. Matilde Oseguera MD -[facility] Start: 08-23-2024 End: 08-23-2024 Admission to same day surgery center Dr. Jameel Oseguera MD -Endoscopy Work Phone: Start: 08-23-2024 End: 08-23-2024 [facility] Ethan [facility] Start: 08-08-2024 End: 08-08-[address] Ethan Avendano MD -Medical Out Work Phone: Start: 08-08-2024 End: 08-08-2024 ambulatory Ethan [facility] Start: 07-11-2024 End: 07-11-[address] Ethan Avendano MD -Medical Out Work Phone: Start: 07-11-2024 End: 07-11-[facility]24 [facility] Start: 07-10-2024 End: 07-10-2024 ambulatory Ethan Avendano Facility:[facility] [place] [facility] Start: 06-06-2024 End: 06-06-2024 ambulatory Ethan Avendano Facility:[facility] Start: 05-09-2024 End: 05-09-2024 ambulatory Ethan Avendano Facility:[facility] Start: 04-05-2024 End: 04-05-2024 ambulatory Ethan Avendano Facility:[facility] Start: 03-28-2024 End: 03-28-2024 ambulatory Blaine Lee Facility:[facility] Start: 01-04-2024 End: 01-04-[address] Ethan Avendano Work Phone: [facility] Work Phone: Start: 01-04-2024 End: 01-04-[address] Ethan Avendano Work Phone: [facility] Work Phone: Start: 12-07-2023 End: 12-07-[address] Ethan Avendano Work Phone: [facility] Work Phone: Start: 12-07-2023 End: 12-07-[address] Ethan Avendano Work Phone: [facility] Work Phone: Start: 11-16-2023 End: 11-16-[address] Ethan Avendano Work Phone: [facility] Work Phone: Start: 11-16-2023 End: 11-16-[address] Ethan Avendano Work Phone: [facility] Start: 11-09-2023 End: 11-09-[address] Ethan Avendano Work Phone: [facility] Work Phone: Start: 11-09-2023 End: 11-09-[address] [facility] Start: 10-10-2023 End: 10-10-[address] Ethan Avendano Work Phone: [facility] Work Phone: Start: 10-06-2023 End: 10-06-2023 ambulatory FLORENCE EUGENE [facility]:[id number] Start: 10-05-2023 End: 10-05-2023 ambulatory [facility] Work Phone: Start: 10-05-2023 End: 10-05-2023 [facility] Start: 09-07-2023 End: 09-07-2023 ambulatory [facility] Work Phone: Start: 09-07-2023 End: 09-07-2023 [facility] Start: 08-10-2023 End: 08-10-2023 [facility] Start: 07-06-2023 End: 07-06-[address] Ethan Avendano Work Phone: [facility] Work Phone: Start: 07-06-2023 End: 07-06-[address] [facility] Phone: Start: 06-08-2023 End: 06-08-[address] [facility] Start: 05-10-2023 End: 05-10-[address] Ethan Avendano Work Phone: [facility] Work Phone: Start: 05-10-2023 End: 05-10-[address] Ethan Avendano Work Phone: [facility]-Medical Out Work Phone: Start: 05-05-2023 Non-patient / Non-visit Dr. Abdulkadir Avendano Work Phone: [facility] Start: 05-05-2023 End: 05-05-[address] Ethan Avendano Work Phone: [facility] Work Phone: Start: 05-05-2023 End: 05-05-[address] Ethan Avendano Work Phone: [facility]-Cardiovascula r Services Work Phone: Start: 04-05-2023 End: 04-05-[address] Ethan Avendano Work Phone: [facility] Work Phone: Start: 04-05-2023 End: 04-05-[address] Ethan Avendano Work Phone: [facility]-Medical Out Work Phone: Start: 03-23-2023 End: 03-23-[address] Ethan Avendano Work Phone: [facility]-Laboratory Work Phone: Start: 03-08-2023 End: 03-08-[address] Ethan Avendano Work Phone: [facility] Work Phone: Start: 03-08-2023 End: 03-08-[address] Ethan Avendano Work Phone: [facility]-Medical Out Work Phone: Start: 02-03-2023 End: 02-03-[address] Ethan Avendano Work Phone: [facility] Work Phone: Start: 02-03-2023 End: 02-03-[address] Ethan Avendano Work Phone: [facility]-Medical Out Start: 02-01-2023 End: 02-01-[address] Ethan Avendano Work Phone: [facility] Work Phone: Start: 02-01-2023 End: 02-01-[address] Ethan Avendano Work Phone: [facility]-Laboratory Start: 02-01-2023 End: 02-01-[address] Ethan Avendano Work Phone: [facility] Start: 01-05-2023 End: 01-05-2023 ambulatory [facility] Work Phone: Start: 01-05-2023 End: 01-05-2023 Patient encounter procedure [facility] Start: 12-29-2022 End: 12-29-2022 ambulatory LACY GOLDBERG Facility:[facility] Start: 12-29-2022 End: 12-29-2022 Patient encounter procedure Latisha Robles MD Work Phone: Neurology Comment on above: Parkinson disease (H CC) (Primary Dx) Start: 12-08-2022 End: 12-08-2022 ambulatory [facility] Work Phone: Start: 12-08-2022 End: 12-08-2022 Patient encounter procedure [facility] Start: 11-16-2022 End: 11-16-2022 ambulatory [facility] Work Phone: Start: 11-16-2022 End: 11-16-2022 Discharged Recurring [facility]-Physical Therapy Start: 11-04-2022 End: 11-04-2022 Patient encounter procedure [facility] Start: 10-07-2022 End: 10-07-2022 ambulatory [facility] Work Phone: Start: 10-07-2022 End: 10-07-2022 Patient encounter procedure [facility]Medical Out Start: 09-19-2022 End: 09-19-2022 ambulatory [facility] Work Phone: Start: 09-19-2022 End: 09-19-2022 Patient encounter procedure [facility] - [facility] Start: 09-09-2022 End: 09-09-2022 ambulatory [facility] Work Phone: Start: 09-09-2022 End: 09-09-2022 Patient encounter procedure [facility]Medical Out Start: 08-24-2022 End: 08-24-2022 ambulatory [facility] Work Phone: Start: 08-24-2022 End: 08-24-2022 Patient encounter procedure [facility]-Laboratory, [place] Start: 08-16-2022 End: 08-16-2022 ambulatory Florence Sainzinik OT/L [facility] Start: 08-16-2022 End: 08-16-2022 Coordination of care plan Florence A Jeff OT/L [facility] Comment on above: Parkinson disease (H CC) (Primary Dx); Abnormality of gait and mobility; Abnormal coordination; Irregular eye movements Start: 08-15-2022 End: 08-15-2022 ambulatory [facility] Work Phone: Start: 08-15-2022 End: 08-15-[address] Ethan Avendano Work Phone: [facility]-Laboratory, Start: 08-15-2022 End: 08-15-2022 ambulatory [facility] Start: 08-15-2022 End: 08-15-2022 Coordination of care plan Florence A Jeff OT/L [facility] Comment on above: Parkinson disease (H CC) (Primary Dx); Abnormality of gait and mobility; Abnormal coordination; Irregular eye movements Start: 08-11-2022 End: 08-11-[address] Ethan Avendano Work Phone: [facility] Work Phone: Start: 08-11-2022 End: 08-11-[address] Ethan Avendano Work Phone: [facility] Start: 08-04-2022 End: 08-04-2022 ambulatory [facility] Work Phone: Start: 08-04-2022 End: 08-04-[address] Ethan Avendano Work Phone: [facility]-Medical Out Start: 07-15-2022 End: 07-15-[address] Ethan Avendano Work Phone: [facility] Work Phone: Start: 07-15-2022 End: 07-15-[address] Ethan Avendano Work Phone: [facility] Start: 07-08-2022 End: 07-08-[address] Ethan Avendano Work Phone: [facility] Work Phone: Start: 07-08-2022 End: 07-08-[address] Ethan Avendano Work Phone: [facility]-Medical Out Start: 07-07-2022 End: 07-07-[address] Ethna Avendano Work Phone: [facility] Start: 07-04-2022 End: 07-04-[address] Ethan Avendano Work Phone: [facility]-Speech Therapy Start: 07-04-[address] Ethan Avendano Work Phone: [facility]-Speech Therapy Start: 06-13-[address] Ethan Avendano Work Phone: [facility]-Speech Therapy Start: 06-10-2022 End: 06-10-[address] Ethan Avendano Work Phone: [facility]-Medical Out Start: 06-07-2022 End: 06-07-[address] Ethan Avendano Work Phone: [facility] Work Phone: Start: 06-07-2022 End: 06-07-[address] Ethan Avendano Work Phone: [facility] Start: 05-06-2022 End: 05-06-[address] Ethan Avendano Work Phone: [facility] Work Phone: Start: 05-06-2022 End: 05-06-[address] Ethan Avendano Work Phone: [facility]-Medical Out Start: 05-04-[address] Ethan Avendano Work Phone: [facility]-Speech Therapy Start: 04-20-2022 Non-patient / Non-visit Dr. Abdulkadir Avendano Work Phone: [facility] Start: 04-20-2022 End: 04-20-[address] Ethan Avendano Work Phone: [facility]-Cardiovascula r Services Start: 04-08-2022 End: 04-08-[address] Ethan Avendano Work Phone: [facility]-Medical Out Start: 03-16-2022 End: 03-16-[address] Ethan Avendano Work Phone: [facility] Start: 03-04-2022 End: 03-04-2022 Patient encounter procedure [facility] Out Start: 02-04-2022 End: 02-04-2022 [facility] Start: 01-07-2022 End: 01-07-2022 [facility] Start: 12-03-2021 End: 12-03-[address] [facility] Start: 12-02-2021 End: 12-02-[address] Ethan Avendano Work Phone: [facility] Start: 11-05-2021 End: 11-05-[address] [facility] Start: 10-08-2021 End: 10-08-[address] [facility] Start: 09-10-2021 End: 09-10-[address] [facility] Start: 09-06-2021 End: 09-06-[address] Ethan Avendano Work Phone: [facility] Start: 08-14-2017 Ambulatory Isaac Prater Facilit [id number] Procedures Date Procedure Procedure Detail Performing Clinician Start: 2025 Methadone measuremen t, urine Dr. Ethan Avendano MD Work Phone: Start: 2025 Urnls dip stick/tabl et reagent auto microscopy Dr. Ethan Avendano MD Work Phone: Start: 2025 Plain chest X-ray Dr. Miriam Avendano MD Work Phone: Start: 2025 CT of head without contrast Dr. Ethan Avendano MD Work Phone: Start: [address] Ethan Avendano MD Work Phone: Start: 2025 Serum inorganic phosphate measurement Dr. Ethan Avendano MD Work Phone: Start: 03-21-2025 Basic metabolic pane l calcium [...] Ct abdomen & pelvis w/contrast material Jameel Carlitos Barraza DO Work Phone: Start: 03-16-2025 Comprehensive [...] Work Phone: Start: 06-07-[address] Ethan Chaves [facility] Work Phone: Start: 12-30-2020 History of transuret hral prostatectomy History of transurethral resection of prostate Dr. Ethan Avendano Work Phone: Start: 03-21-2019 History of placement of stent for coronary artery disease History of coronary artery stent placement Dr. Demian Ramsay MD Comment on above: [id number]-[id number] RCA w / 2.5 x 12 mm Elunir Stent and MILANA-Mid RCA w/ 3.0 x 33 mm Elunir Stent 03/11/19; PCI-MILANA- Mid LAD w/ 3.0 x 16 mm Synergy MR Stent 03/21/2019 Start: 09-26-2008 Colonoscopy Florence villanueva OT/L Plan of Treatment Date Care Activity Detail Author Start: 09-11-2029 DTaP/Tdap/Td Vaccine s (5 - Td or Tdap) DTaP/Tdap/Td Vaccines (5 - Td or Tdap) [facility] Start: 06-02-2027 Screening for malign ant neoplasm of colon [facility] Start: 06-25-2026 Urine microalbumin profile DTA P,TDAP,TD (4 - Td or Tdap) [facility] Start: 05-05-2025 Influenza vaccination Influenza Vacc ine (#1) [facility] Start: 04-09-2025 End: 04-09-2025 Patient encounter procedure 04/09/2025 10:15 AM EDT Office Visit [facility] [place] [address] [facility] [address] [place] [id number] Bronson Jarrett MD [address] [place] [address] [address] [place], [place] [id number] [facility] [place] Start: 03-26-2025 Following clinical p athway protocol [facility] Start: 03-26-2025 Aspiration precautions [facility] Start: 03-26-2025 Assessment of risk o f venous thromboembolism [facility] Start: 03-26-2025 Fall prevention [facility] Start: 03-26-2025 Incentive spirometry [facility] Start: 03-26-2025 Inhalation therapy procedure [facility] Start: 03-26-2025 Insertion of cathete r into peripheral vein [facility] Start: 03-26-2025 Introduction of urin link catheter [facility] Start: 03-26-2025 Measuring intake and output [facility] Start: 03-26-2025 Oxygen therapy [facility] Start: 03-26-2025 Providing care accor ding to standard [facility] Start: 03-26-2025 Provision of activit y privileges [facility] Start: 03-26-2025 Referral to occupati onal therapist [facility] Start: 03-26-2025 Referral to service [facility] Start: 03-26-2025 Telemedicine consult ation with patient [facility] Start: 03-26-2025 [facility] Start: 2025 Verification routine [facility] Start: 2025 Admission procedure [facility] Start: 2025 Consultation [facility] Start: 03-16-2025 [facility] Start: 01-02-2025 Iv infusion therapy prophylaxis/dx ea hour THER/PROPH/DIAG IV INF [facility] Start: 01-02-2025 Iv infusion therapy/prophylaxis /dx 1st to 1 hr THER/PROPH/DIAG IV INF [facility] Start: 12-05-2024 Iv infusion therapy prophylaxis/dx ea hour THER/PROPH/DIAG IV INF [facility] Start: 12-05-2024 Iv infusion therapy/prophylaxis /dx 1st to 1 hr THER/PROPH/DIAG IV INF [facility] Start: 10-10-2024 Iv infusion therapy prophylaxis/dx ea hour THER/PROPH/DIAG IV INF [facility] Start: 10-10-2024 Iv infusion therapy/prophylaxis /dx 1st to 1 hr THER/PROPH/DIAG IV INF [facility] Start: 08-23-2024 Patient discharge [facility] Start: 08-20-2024 COVID-19 Vaccine ( season) COVID-19 Vaccine () [facility] Start: 12-07-2023 Iv infusion therapy prophylaxis/dx ea hour THER/PROPH/DIAG IV INF [facility] Start: 12-07-2023 Iv infusion therapy/prophylaxis /dx 1st to 1 hr THER/PROPH/DIAG IV INF [facility] Start: 09-07-2023 Iv infusion therapy prophylaxis/dx ea hour THER/PROPH/DIAG IV INF [facility] Start: 09-07-2023 Iv infusion therapy/prophylaxis /dx 1st to 1 hr THER/PROPH/DIAG IV INF [facility] Start: 05-10-2023 Iv infusion therapy prophylaxis/dx ea hour THER/PROPH/DIAG IV INF [facility] Start: 05-10-2023 Iv infusion therapy/prophylaxis /dx 1st to 1 hr THER/PROPH/DIAG IV INF [facility] Start: 04-05-2023 Iv infusion therapy prophylaxis/dx ea hour THER/PROPH/DIAG IV INF [facility] Start: 04-05-2023 Iv infusion therapy/prophylaxis /dx 1st to 1 hr THER/PROPH/DIAG IV INF [facility] Start: 03-08-2023 Iv infusion therapy prophylaxis/dx ea hour THER/PROPH/DIAG IV INF [facility] Start: 03-08-2023 Iv infusion therapy/prophylaxis /dx 1st to 1 hr THER/PROPH/DIAG IV INF [facility] Start: 02-03-2023 Iv infusion therapy prophylaxis/dx ea hour THER/PROPH/DIAG IV INF [facility] Start: 02-03-2023 Iv infusion therapy/prophylaxis /dx 1st to 1 hr THER/PROPH/DIAG IV INF [facility] Start: 01-05-2023 Iv infusion therapy prophylaxis/dx ea hour THER/PROPH/DIAG IV INF [facility] Start: 01-05-2023 Iv infusion therapy/prophylaxis /dx 1st to 1 hr THER/PROPH/DIAG IV INF [facility] Start: 12-08-2022 Iv infusion therapy prophylaxis/dx ea hour THER/PROPH/DIAG IV INF [facility] Start: 12-08-2022 Iv infusion therapy/prophylaxis /dx 1st to 1 hr THER/PROPH/DIAG IV INF [facility] Start: 11-04-2022 Iv infusion therapy prophylaxis/dx ea hour THER/PROPH/DIAG IV INF [facility] Start: 11-04-2022 Iv infusion therapy/prophylaxis /dx 1st to 1 hr THER/PROPH/DIAG IV INF [facility] Start: 10-07-2022 Iv infusion therapy prophylaxis/dx ea hour THER/PROPH/DIAG IV INF [facility] Start: 10-07-2022 Iv infusion therapy/prophylaxis /dx 1st to 1 hr THER/PROPH/DIAG IV INF [facility] Start: 09-09-2022 Iv infusion therapy prophylaxis/dx ea hour THER/PROPH/DIAG IV INF [facility] Start: 09-09-2022 Iv infusion therapy/prophylaxis /dx 1st to 1 hr THER/PROPH/DIAG IV INF [facility] Start: 09-04-2022 ADVANCE DIRECTIVE DISCUSSION ADVANCE DIRECTIVE DISCUSSION [facility] Start: 09-04-2022 DEPRESSION ASSESSMENT DEPRESSION ASS [facility] Start: 08-04-2022 Iv infusion therapy prophylaxis/dx ea hour THER/PROPH/DIAG IV INF [facility] Work Phone: Start: 08-04-2022 Iv infusion therapy/prophylaxis /dx 1st to 1 hr THER/PROPH/DIAG IV INF [facility] Work Phone: Start: 07-08-2022 Iv infusion therapy prophylaxis/dx ea hour THER/PROPH/DIAG IV INF [facility] Work Phone: Start: 07-08-2022 Iv infusion therapy/prophylaxis /dx 1st to 1 hr THER/PROPH/DIAG IV INF [facility] Work Phone: Start: 05-06-2022 Iv infusion therapy prophylaxis/dx ea hour THER/PROPH/DIAG IV INF [facility] Work Phone: Start: 05-06-2022 Iv infusion therapy/prophylaxis /dx 1st to 1 hr THER/PROPH/DIAG IV INF [facility] Work Phone: Start: 04-08-2022 Iv infusion therapy prophylaxis/dx ea hour THER/PROPH/DIAG IV INF [facility] Work Phone: Start: 04-08-2022 Iv infusion therapy/prophylaxis /dx 1st to 1 hr THER/PROPH/DIAG IV INF [facility] Work Phone: Start: 03-04-2022 Iv infusion therapy prophylaxis/dx ea hour THER/PROPH/DIAG IV INF [facility] Work Phone: Start: 03-04-2022 Iv infusion therapy/prophylaxis /dx 1st to 1 hr THER/PROPH/DIAG IV INF [facility] Work Phone: Start: 02-04-2022 Iv infusion therapy prophylaxis/dx ea hour THER/PROPH/DIAG IV INF [facility] Work Phone: Start: 02-04-2022 Iv infusion therapy/prophylaxis /dx 1st to 1 hr THER/PROPH/DIAG IV INF [facility] Work Phone: Start: 12-03-2021 Iv infusion therapy prophylaxis/dx ea hour THER/PROPH/DIAG IV INF [facility] Work Phone: Start: 12-03-2021 Iv infusion therapy/prophylaxis /dx 1st to 1 hr THER/PROPH/DIAG IV INF [facility] Work Phone: Start: 09-04-2021 ADVANCE DIRECTIVE DISCUSSION ADVANCE DIRECTIVE DISCUSSION [facility] Start: 09-04-2021 DEPRESSION ASSESSMENT DEPRESSION ASS ESSMENT [facility] Start: 06-23-2021 LIPID SCREEN LIPID SCREEN [facility] Start: 06-23-2019 DIABETES SCREEN DIABETES SCREEN [facility] Start: 06-13-2019 PNEUMOCOCCAL: 65+ (4 - PPSV23 if available, else PCV20) PNEUMOCOCCAL: 65+ (4 - PPSV23 if available, else PCV20) [facility] Start: 09-26-2018 Colonoscopy COLONOSCOPY [facility] Start: 09-26-2018 COLORECTAL CANCER SCREENING COLORECTAL CANCER SCREENING [facility] Start: 07-20-2014 FECAL OCCULT BLOOD FECAL OCCULT BLOO D [facility] Start: 1997 COLOGUARD (FIT-DNA) COLOGUARD (FIT-D NA) [facility] Start: [address] COLONOGRAPHY [facility] Start: 1997 SIGMOIDOSCOPY SIGMOIDOSCOPY [facility] Start: 1971 SHINGRIX VACCINE (1 of 2) DILLON GRIX VACCINE (1 of 2) [facility] Start: 1970 HEPATITIS C SCREENING HEPATITIS C [facility] Start: 1970 Hepatitis C screening Hepatitis C [facility] Start: 1964 Depression Monitoring Depression [facility] Start: 1952 Lipid panel Lipid Panel [facility] Start: 1952 Medicare Annual Well ness (AWV) Medicare Annual Wellness (AWV) [facility] Start: 1952 Screening for malign ant neoplasm of colon [facility] Alanine aminotransfe rase [Enzymatic activity/volume] in Serum or Plasma [facility] Albumin [Mass/volume ] in Serum or Plasma [facility] Alkaline phosphatase [Enzymatic activity/volume] in Serum or Plasma [facility] Anion gap in Serum o r Plasma [facility] Bilirubin, total measurement [facility] BUN/Creatinine ratio [facility] Calcium [Mass/volume ] in Serum or Plasma [facility] Carbon dioxide, tota l [Moles/volume] in Central venous blood [facility] Creatinine [Mass/vol ume] in Serum or Plasma [facility] Erythrocyte mean corpuscular volume determination [facility] Glucose [Mass/volume ] in Serum or Plasma [facility] Hematocrit [Volume Fraction] of Blood [facility] Hemoglobin [Mass/vol ume] in Blood [facility] Leukocytes [#/volume ] in Blood [facility] Mean corpuscular hemoglobin concentration determination [facility] Mean corpuscular hemoglobin determination [facility] Measurement of renal function [facility] Neutrophil count [facility] Neutrophil percent differential count [facility] Patient referral [facility] Work Phone: Platelets [#/volume] in Blood [facility] Potassium measurement [facility] Procalcitonin [Mass/volume] in Serum or Plasma by Immunoassay [facility] Red blood cell count [facility] Red cell distributio n width determination [facility] Serum chloride measurement [facility] Sodium measurement [facility] Tissue exam [facility] Sy stem Work Phone: Comment on above: Release Upon Orderin g for 1 Occurrences starting 03/18/2025, 1 completed Total protein measurement [facility] Urea nitrogen [Mass/volume] in Serum or Plasma [facility] US Carotid arteries [facility] Carotid arteries [facility] Immunizations Immunization Date Immunization Notes Care Provider Baldo guo 06-25-2024 influenza virus vacc ine, unspecified formulation Bhanu Hunter DO Work Phone: [facility] 12-09-2020 Covid (Moderna) Dr. Ethan Hagan Work Phone: [facility] 11-11-2020 Covid (Moderna) Dr. Ethan Hagan Work Phone: [facility] 06-25-2016 influenza, injectabl e, quadrivalent, contains preservative Florence Eugene OT/L [facility] 06-25-2016 tetanus toxoid, redu manas diphtheria toxoid, and acellular pertussis vaccine, adsorbed Florence Eugene OT/L [facility] 07-17-2015 pneumococcal conjuga te vaccine, 13 valent Florence Eugene OT/L [facility] Work Phone: 06-18-2015 influenza, high dose seasonal, preservative-free Florence Hopek OT/L [facility] 06-13-2014 influenza, seasonal, injectable Florence Jeff OT/L [facility] 06-13-2014 pneumococcal polysaccharide vaccine, 23 valent Florence Jeff OT/L [facility] 07-11-2013 influenza virus vacc ine, unspecified formulation Florence Jeff OT/L [facility] 07-14-2009 novel influenza-H1N1 -09, all formulations Florence Eugene OT/L [facility] Work Phone: 05-04-2007 pneumococcal polysaccharide vaccine, 23 valent Florence Eugene OT/L [facility] Work Phone: 05-04-2007 tetanus toxoid, redu manas diphtheria toxoid, and acellular pertussis vaccine, adsorbed Florence Eugene OT/L [facility] Work Phone: 05-04-1994 diphtheria and tetan us toxoids, adsorbed for pediatric use Florence Eugene OT/L [facility] Work Phone: Payers Date Payer Category Payer Medicare supplementa l policy (as second payer) O MEDICARE SUPPLEMENT [id number] 2024 Self-pay [id number] 2022 Unknown [facility] MEDICARE SUPPLEMENT [id number] 2022-Present [phone] [address] [place] [address] Indemnity [id number] 2022 Unknown [id number] 2017 Medicare [id number] 2017 Medicare [id number] Medicare [id number] Unknown [id number] 2.16.840.1.658849.3.579.2 .462 Unknown [id number] 2.16.840.1.373356.3.579.2 .462 Unknown [id number] 2.16.840.1.272660.3.579.2 .462 Unknown [id number] 2.16.840.1.609163.3.579.2 .462 Unknown [id number] 2.16.840.1.131164.3.579.2 .462 Unknown [id number] 2.16.840.1.527853.3.579.2 .462 Unknown [id number] 2.16.840.1.050695.3.579.2 .462 Unknown [id number] 2..840.1.186055.3.579.2 .462 Unknown [id number] 2.16.840.1.286769.3.579.2 .462 Unknown [id number] 2..840.1.649933.3.579.2 .462 Unknown [id number] 2.16.840.1.015764.3.579.2 .462 Unknown [id number] 2.16.840.1.244070.3.579.2 .462 Unknown [id number] 2.16.840.1.529960.3.579.2 .462 Unknown [id number] 2.16.840.1.777262.3.579.2 .462 Unknown [id number] 2.16.840.1.079899.3.579.2 .462 Unknown [id number] 2.16.840.1.508341.3.579.2 .462 Unknown [id number] 2.16.840.1.337524.3.579.2 .462 Unknown [id number] 2.16.840.1.397059.3.579.2 .462 Unknown [id number] 2.16.840.1.226815.3.579.2 .462 Unknown [id number] 2.16.840.1.539023.3.579.2 .462 Unknown [id number] 2.16.840.1.888432.3.579.2 .462 Unknown [id number] 2.16.840.1.458465.3.579.2 .462 Unknown [id number] 2..840.1.811802.3.579.2 .462 Social History Date Type Detail Facility Start: 09-06-2021 End: 10-10-2023 Tobacco smoking status NHIS Unknown if ever smoked [facility] Start: 12-12-2020 Spouse/ Significant Other [facility] Start: 12-24-2020 Non-smoker [facility] Start: 1950 Sex Assigned At Male [facility] Start: 08-27-2021 End: 2025 Tobacco smoking status MNIS Never smoked tobacco [facility] Start: 08-27-2021 End: 12-29-2022 Tobacco use and exposure Smokeless tobacco non-user [facility] Start: 04-20-2022 End: 12-29-2022 Alcohol intake Current non-drinker of alcohol (finding) [facility] Start: 1950 Sex Assigned At Not on file [facility] Start: 11-08-2024 End: 03-16-2025 Sex Male (finding) [facility] Start: 03-16-2025 History of Social function [facility] Start: 03-16-2025 Alcohol Use Disorder Identification Test - Consumption [AUDIT-C] [facility] How often to you hav e a drink containing alcohol? Never [facility] How many standard dr inks containing alcohol do you have on a typical day? Patient does not drink [facility] Health Goals Date Patient Goal Desired Activity /State Functional Status Date Assessment Result Facility 03-16-2025 Total score [AUDIT-C] 0 03/16/20 25 6:27 AM Martha Huerta RN [facility] Health [facility] Mental Status Date Assessment Result Facility 03-05-2025 Cognitive function Voice/Name [facility] Work Phone: 02-05-2025 Cognitive function Voice/Name [facility] Work Phone: 01-02-2025 Cognitive function Voice/Name [facility] Work Phone: 12-05-2024 Cognitive function Awake;Alert;A ppropriate;Follow s Commands [facility] Work Phone: 11-07-2024 Cognitive function Voice/Name [facility] Work Phone: 10-10-2024 Cognitive function Voice/Name [facility] Work Phone: 09-05-2024 Cognitive function Voice/Name [facility] Work Phone: 08-23-2024 Cognitive function Level Of Cons ciousness Follows Commands;Drowsy [facility] Work Phone: 08-23-2024 Cognitive function Voice/Name [facility] Work Phone: 07-11-2024 Cognitive function Awake;Alert;A ppropriate;Follow s Commands [facility] Work Phone: 01-04-2024 Cognitive function Awake;Alert;A ppropriate;Follow s Commands [facility] Work Phone: 12-07-2023 Cognitive function Awake;Alert;A ppropriate;Follow s Commands [facility] Work Phone: 11-09-2023 Cognitive function Awake;Alert;A ppropriate;Follow s Commands [facility] Work Phone: 10-05-2023 Cognitive function Awake;Alert;A ppropriate;Follow s Commands [facility] Work Phone: 09-07-2023 Cognitive function Awake;Alert;A ppropriate;Follow s Commands [facility] Work Phone: 08-10-2023 Cognitive function Voice/Name [facility] Work Phone: 07-06-2023 Cognitive function Voice/Name [facility] Work Phone: 06-08-2023 Cognitive function Awake;Alert;A ppropriate;Follow s Commands [facility] Work Phone: 05-10-2023 Cognitive function Voice/Name [facility] Work Phone: 04-05-2023 Cognitive function Voice/Name [facility] Work Phone: 03-08-2023 Cognitive function Voice/Name [facility] Work Phone: 02-03-2023 Cognitive function Awake;Alert;A ppropriate;Follow s Commands [facility] Work Phone: 01-05-2023 Cognitive function Voice/Name [facility] Work Phone: 12-08-2022 Cognitive function Voice/Name [facility] Work Phone: 11-04-2022 Cognitive function Voice/Name [facility] Work Phone: 10-07-2022 Cognitive function Awake;Alert;A ppropriate;Follow s Commands [facility] Work Phone: 08-04-2022 Cognitive function Voice/Name [facility] Work Phone: 07-08-2022 Cognitive function Voice/Name [facility] Work Phone: 06-10-2022 Cognitive function Voice/Name [facility] Work Phone: 05-06-2022 Cognitive function Level Of Cons ciousness Awake;Alert;Appropriate;Follow s Commands [facility] Work Phone: 04-08-2022 Cognitive function Level Of Cons ciousness Awake;Alert;Appropriate;Follow s Commands [facility] Work Phone: 03-04-2022 Cognitive function Voice/Name [facility] Work Phone: 02-04-2022 Cognitive function Awake;Alert;A ppropriate;Follow s Commands [facility] Work Phone: 01-07-2022 Cognitive function Awake;Alert;A ppropriate;Follow s Commands [facility] Work Phone: 12-03-2021 Cognitive function Awake;Alert;A ppropriate;Follow s Commands [facility] Work Phone: 11-05-2021 Cognitive function Awake;Alert;A ppropriate;Follow s Commands [facility] Work Phone: 10-08-2021 Cognitive function Level Of Cons ciousness Awake;Alert;Appropriate;Follow s Commands [facility] Work Phone: 09-10-2021 Cognitive function Awake;Alert;A ppropriate;Follow s Commands [facility] Work Phone: Clinical Notes 07-11-2013 to 03-26-2025 Note Date & Type Note Facility 03-26-2025 History and physi elsi note Note Date/Time 2025 11:52pm [facility] Medical Records Department [address] [place] [address] H&P Exam - Hospitalist 03/25/25 2252 MR#: [id number] Acct: [id number] Name: FRANCISCO RAMOS Rep #:[id number] : 1950 75 From: Lacy Johnston MD PCP: Dr. Ethan Avendano MD Status:ADM RENATE Location: [place] [address] HPI - General General Date of Admission: 03/25/25 Date of Service: 03/25/25 Chief Complaint: Agitation HPI Narrative The patient is a 75 y/o M w/ PMHx: Anxiety and Depression, CKD stage II per GFR trending, Parkinson disease with given presentation possibly new behavioral disturbance history, HTN, HLD, BPH with obstructive pathology status post TURP, CAD status post PCI who presents to the [facility] ED on 2025 with recent history of increased agitation and confusion becoming combative with his spouse prompting the police call who brought him in by squad and patient did clinically calm and improved in the ED but family felt uncomfortable taking him home prompting ED physician to request hospitalist admission. In the ED patient is alert to self, place, president and month but gives the incorrect year. He then several times becomes paranoid asking questions about people talking about him. Discussed patient's evening with him and asked if he was cognizant of the events of the evening and he reports that he is but several of the components are altered and again have a paranoid feel. Workup in the ED included T99.4, heart 118, BP 153/76, respiratory rate 27, 98% on room air with most recent repeat vitals heart rate 109, BP 140/86, respiratory rate 18, 100% on room air, CBC with WC 5.6, A1 13.2, platelet 162 with increased immature granulocytes and lymphopenia, BMP with BUN/canaille /.22, GFR 63, glucose 135, urinalysis with specific Robley 1.010, protein 15,ketone 5, negative nitrite, negative leukocyte esterase with urine RBCs 5-10 and1+ urine bacteria, UDS negative, ethyl alcohol less than 10.1, CT of the brain with no acute intracranial findings with evidence of previous basal ganglia infarcts with diffuse atrophy and mild white matter change, chest x-ray with no acute cardiopulmonary findings. [facility] Medical History Tortuous colon Wears glasses Arthritis High cholesterol Easy bruising Back pain Non-smoker History of pain when walking History of echocardiogram History of stress test Cardiology follow-up encounter Parkinson disease Atherosclerosis of coronary artery of [place] heart without angina pectoris Hyperlipidemia Common variable immunodeficiency Benign prostate hyperplasia Basal cell carcinoma of left ear Home Medications ?Medication ?Instructions ?Recorded ?Last Taken ?Type multivitamin with folic acid 400 1 tab PO DAILY 08/22/24 History mcg tablet folic acid 400 mcg tablet 1 tab PO DAILY 12/24/1308/04 History immune glob,gamma(IgG) 10 20 g .Route .m6fqmop 9 08/08/24 History xfhe-njq-hvhz-IgA 0 to 50 mcg/mL IV solution nitroglycerin 0.4 mg sublingual 0.4 mg sublingual Q5-1 5M PRN chest 04/03/19 Unknown Rx tablet pain #25 tabs ibuprofen 600 mg tablet 600 mg PO Q6H PRN pain #20 t abs 12/30/20 08/22/24 Rx aspirin 81 mg tablet,delayed 81 mg PO DAILY 01/05/21 1 10/20/23 History release (Adult Low Dose Aspirin) memantine 5 mg tablet 10 mg PO BID 02/01/23 History rosuvastatin 40 mg tablet 40 mg PO QHS 10/10/23 History bupropion HCl 100 mg tablet,12 hr 100 mg PO QAM Unknown History sustained-release carbidopa 25 mg-levodopa 100 mg 1 tab PO .qid 11/28/24 Unknown History tablet escitalopram oxalate 5 mg tablet 10 mg PO DAILY Unknown History (Lexapro) Allergy/AdvReac Type Severity Reaction Status Date / Time No Known Allergies Allergy Verified 03/15/25 21:20 Family History Mother Heart disease valve replacement Father Parkinson disease Surgical History History of cardiac catheterization Hx of colonoscopy Hx of transurethral resection of prostate History of coronary artery stent placement (03/21/19) History of herniorrhaphy History of bilateral cataract extraction Social History (Updated 03/25/25 @ 23:[address] Lacy Johnston MD) household members: spouse Smoking Status: Never smoker alcohol intake: current alcohol intake frequency: holidays/special occasions only substance use type: does not use caffeine: No ROS Review of Systems ROS Unobtainable: due to mental condition Vital Signs Vital Signs Vital Signs: 03/25/25 20:42 03/25/25 21:05 03/25/25 21:41 Temperature 99.4 F H Temperature Source Oral Pulse Rate 118 H 109 H Respiratory Rate 27 H 18 Respiratory Effort Normal Non-Labored Respiratory Depth Normal Respiratory Pattern Normal Blood Pressure 153/76 H 140/86 H Blood Pressure Mean 101 104 Pulse Ox 98 100 Oxygen Delivery Method Room Air Room Air Room Air Weight Weight: 147 lb Body Mass Index (BMI) 23.0 Physical Exam Narrative Physical Examination: General: Awake, alert, oriented to self, place, month but gives incorrect year and during the conversation has evident hallucinations, very concerned and paranoid, currently is cooperative and following commands, seated upright in ED bed. Skin: Normal color, normal turgor, no icterus, no cyanosis except very stage ecchymoses, abrasions especially to the extremities. HEENT: AT/NC, EOMI, PERRLA, MMM, no carotid bruits or JVD noted. Lungs: Mildly diminished, greater bases, appropriate effort, no rales, ronchi orwheezing. Heart: Regular rate and rhythm; no gallop, rub audible. Abdomen: Soft, NTTP, ND, hyperactive BS, no HSM. Extremities: No cyanosis, no clubbing, no significant distal edema noted.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 with Medical Treatment Restraint Goal: Remains free of injury from restraints (Restraint for Interference with Heel Nail Rasper) Outcome: Progressing Goal: Free from restraint(s) (Restraint for Interference with Heel Nail Rasper) Outcome: Progressing Problem: Problem Interventions Goal: Assess Nutritional Intake Outcome: Progressing [id number] Note* Care Coordination - Cassia Dexter - 03/21/2025 10:54 AM EDT ADRIENNE provided patient and with [employer]. Street card has resources such as transportation, food, utilities etc. [id number] Note* Care Coordination - Cassia Dexter - 03/21/2025 10:54 AM EDT ADRIENNE provided patient and with [employer]. Street card has resources such as transportation, food, utilities etc. [facility] [id number] NoteProblem: Safety - Non-violent/Interference with Medical Treatment Restraint Goal: Remains free of injury from restraints (Restraint for Interference with Heel Nail Rasper) Outcome: Progressing Goal: Free from restraint(s) (Restraint for Interference with Heel Nail Rasper) Outcome: Progressing Problem: Problem Interventions Goal: Assess Nutritional Intake Outcome: [facility]07-18-2025 Plan of care note* Care Plan - Lu Bee RN - 03/21/2025 9:55 AM EDT Problem: Safety - Non-violent/Interference with Medical Treatment Restraint Goal: Remains free of injury from restraints (Restraint for Interference with Heel Nail Rasper) Outcome: Progressing Goal: Free from restraint(s) (Restraint for Interference with Heel Nail Rasper) Outcome: Progressing Problem: Problem Interventions Goal: Assess Nutritional Intake Outcome: Progressing [id number] Note* Home Care - Bang Rowe - 03/21/2025 9:10 AM EDT DME order for FWW placed with Elliot from [facility]. [facility] [id number] Note* Home Care - Bang Rowe - 03/21/2025 9:10 AM EDT DME order for FWW placed with Elliot from [facility]. [facility] [id number] Note* Home Care - Bang Rowe - 03/21/2025 8:55 AM EDT Educated patient and on Home Care and services available. Patient is agreeable to receiving home care services at this time. Patient was given choice of home care agencies available in the area and is agreeable to having referrals made with agencies that staff the patients service location. Referrals have been sent via Materia. Spoke with pts regarding all accepting agencies. [facility]. Agency notified via Materia. [id number] Note* Home Care - Bang Rowe - 03/21/2025 8:55 AM EDT Educated patient and on Home Care and services available. Patient is agreeable to receiving home care services at this time. Patient was given choice of home care agencies available in the area and is agreeable to having referrals made with agencies that staff the patients service location. Referrals have been sent via Careport. Spoke with pts regarding all accepting agencies. [facility]. Agency notified via [employer]port. [facility] [id number] Note* Care Coordination - Unknown Case Management - 03/21/2025 8:55 AM EDT Patient Choice Patient Name: FRANCISCO RAMOS Date of : 1950 All Providers Sent Referral Name: [facility] (For [facility] Facilities Only) Phone: [phone] Address: [address] [place] [address] Name: [facility] Phone: [phone] Address: [address] [place] [address] Name: [facility] Phone: [phone] Address: [address] [place] [address] Name: [facility] Address: [facility] [facility] [address] [place] [address] Name: [facility] Phone: [phone] Address: [address] [place] [address] Name: [facility] [place] Phone: [phone] Address: [address] [place] [address] Name: [facility] Phone: [phone] Address: [address] [place] [address] Name: [facility] [place] Phone: [phone] Address: [address] [facility] [place] [address] Name: [facility] Phone: [phone] Address: [address] [place] [address] Name: [facility] Phone: [phone] Address: [address] [facility] [address] [place] [address] Name: [facility] [address]: [address] [place] [address] Name: [facility] Address: [address] [place] [address] Name: [facility] Phone: [phone] Address: [address] [place] [address] Name: [facility] Phone: [phone] Address: [address] [place] [address] [facility] Address: [address] [place] [address] [address]: [facility] Address: [address] [facility] [place] [address] Name: [facility] Phone: [phone] Address: [address] [place] [address] Name: [facility] Address: [address] [facility] [address] [place] [address] Name: [facility] Address: [address] [facility] [address] [place] [address] Name: [facility] Phone: [phone] Address: [address] [facility] [facility] [address] [place] [address] Name: [facility] (All Offices) Phone: [phone] Address: [address] [address] Name: [facility] ([facility] Health) Address: [address] [facility] [place] [address] Name: [facility] Phone: [phone] Address: [address] [place] [address] [id number] Note* Care Coordination - Unknown Case Management - 03/21/2025 8:55 AM EDT Patient Choice Patient Name: FRANCISCO RAMOS Date of : 1950 All Providers Sent Referral Name: [facility] (For [facility] Facilities Only) Phone: [phone] Address: [address] [place] [address] Name: [facility] [place] Phone: [phone] Address: [address] [place] [address] Name: [facility] Phone: [phone] Address: [address] [facility] [address] [place] [address] Name: [facility] Address: [address] [facility] [address] [place] [address] Name: [facility] Phone: [phone] Address: [address] [place] [address] Name: [facility] [place] Phone: [phone] Address: [address] [place] [address] Name: [facility] Phone: [phone] Address: [address] [facility] [address] [place] [address] [facility]: [facility] [place] Phone: [phone] Address: [address] [facility] [place] [address] Name: [facility] Phone: [phone] Address: [address] [place] [address] Name: [facility] [place] Phone: [phone] Address: [address] [facility] [address] [place] [address] Name: [facility] [address]: [address] [place] [address] Name: [facility] Address: [address] [facility] [address] [place] [address] Name: [facility] Phone: [phone] Address: [address] [place] [address] Name: [facility] Phone: [phone] Address: [place] [address] Name: [facility] - [place] Address: [address] [place] [address] Name: [facility] Address: [address] [address] Name: [facility] Phone: [phone] Address: [address] [place] [address] Name: [facility] Address: [address] [place] [address] Name: [facility] Address: [address] [place] [address] Name: [facility] (formerly known as [facility]) Phone: [phone] Address: [address] [place] [address] Name: [facility] (All Offices) Phone: [phone] Address: [address] [address] Name: [facility] ([facility]) Address: [address] [facility] [place] [address] Name: [facility] Phone: [phone] Address: [address] [place] [address] [facility] [id number] Note* Care Coordination - Renetta Caceres RN - 03/21/2025 8:39 AM EDT Care Management Progress Note Short Medical why still here: Patient remains on H6 s/p Lap sigmoidectomy 03/18/2025 Planned Discharge Disposition: Home Health Services Active discharge order noted. TCC working with home care and social media coordinator for home going. Barriers/Today we still Wait: coordinating home going with spouse Length of Stay (Days): 5 GMLOS: 4.[address] [facility] [id number] Note* Care Coordination - Renetta Caceres RN - 03/21/2025 8:39 AM EDT Care Management Progress Note Short Medical why still here: Patient remains on H6 s/p Lap sigmoidectomy 03/18/2025 Planned Discharge Disposition: Home Health Services Active discharge order noted. TCC working with home care and social media coordinator for home going. Barriers/Today we still Wait: coordinating home going with spouse Length of Stay (Days): 5 GMLOS: 4.9 [id number] NoteCare Management Progress Note Short Medical why still here: Patient remains on H6 s/p Lap sigmoidectomy 03/18/2025 Planned Discharge Disposition: Home Health Services Active discharge order noted. TCC working with home care and social media coordinator for home going. Barriers/Today we still Wait: coordinating home going with spouse Length of Stay (Days): 5 GMLOS: 4.9 [facility]07-18-2025 NoteDischarge Summary Francisco Ramos : 1950 ADMIT DATE: 03/16/2025 DISCHARGE DATE: 03/22/25 PRIMARY CARE PHYSICIAN: Jameel Oseguera VISIT STATUS: Admission CODE STATUS: DNR-CCA DISCHARGE DIAGNOSES: Principal Problem: Sigmoid volvulus (CMS/HCC) ([facility]) BMI Classification: Estimated body mass index is [...] Your Medications These medications were sent to [facility] - [place], [place] - [address] [place] [address] acetaminophen 650 MG ER tablet DIET: Adult diet Regular; Low Fiber ACTIVITY: No heavy lifting. COMPLEXITY OF FOLLOW UP: [x] Moderate Complexity: follow up within 7-14 calendar days (47087) [] Severe Complexity: follow up within 7 calendar days (14334) FOLLOW UP TESTING, PENDING RESULTS OR REFERRALS AT TRANSITIONAL CARE VISIT: [] Yes [x] No PENDING STUDIES: No DISPOSITION: Home FACILITY/HOME CARE AGENCY NAME: None Follow up with Bronson Jarrett MD [address] [place], [place] [id number] Follow up in 2 week(s) Call in 1-2 days to schedule follow up appt DISCHARGE TIME: > 30 minutes SIGNED: Carmen Cassidy MD General Surgery Resident 03/21/25 7:38 AM This note may have been dictated using [employer] Medical Practice Edition 2.6 and/or [facility] Voice Recognition Feature. The document was proofread; however, unrecognized voice recognition stave log cut off saw operator errors may be present. [facility]07-18-2025 Hospital course Narrative* Carmen Cassidy MD - 03/21/2025 7:38 AM EDT Images from the original note were not included. 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 The patient the tolerated procedure without any complications. Immediately post-op, pt was extubated and transferred to PACU in stable condition. After PACU criteria met and within 24 hrsof procedure, patient was transferred to medical surgical [...] was well controlled with oral medications by timeof discharge. SIGNIFICANT DIAGNOSTIC STUDIES: See EMR CONSULTANTS: [...] Your Medications These medications were sent to [facility] - [place] - [address] [place] [address] acetaminophen 650 MG ER tablet DIET: Adult diet Regular; Low Fiber ACTIVITY: No heavy lifting. COMPLEXITY OF FOLLOW UP: [x] Moderate Complexity: follow up within 7-14 calendar days (72816) [] Severe Complexity: follow up within 7 calendar days (02948) FOLLOW UP TESTING, PENDING RESULTS OR REFERRALS AT TRANSITIONAL CARE VISIT: [] Yes [x] No PENDING STUDIES: No DISPOSITION: Home FACILITY/HOME CARE AGENCY NAME: None Follow up with Bronson Jarrett MD [address] [place] [phone] Follow up in 2 week(s) Call in 1-2 days to schedule follow up appt DISCHARGE TIME: > 30 minutes SIGNED: Carmen Cassidy MD General Surgery Resident 03/21/25 7:38 AM This note may have been dictated using [employer] Medical Practice Edition 2.6 and/or [facility] Voice Recognition Feature. The document was proofread; however, unrecognized voice recognition stave log cut off saw operator errors may be present. Cosigned by Bronson Jarrett MD at 03/21/2025 12:17 PM EDT documented in this [facility]07-18-2025 [facility] Daily Progress Note ADMIT [...] This note may have been dictated using [employer] Practice Edition 2.6 and/or [facility] Voice Recognition Feature. The document was proofread; however, unrecognized voice recognition stave log cut off saw operator errors may be present. Attending Supervising Physician's [...] naloxone, ondansetron ODT OR ondansetron, oxyCODONE OR [facility] [id number] History of Present illness Narrative* Bronson Jarrett MD - 03/21/2025 7:37 AM EDT Images from the original note [...] This note may have been dictated using [employer] Practice Edition 2.6 and/or [facility] Voice Recognition Feature. The document was proofread; however, unrecognized voice recognition stave log cut off saw operator errors may be present. Attending Supervising Physician's [...] ondansetron ODT OR ondansetron, oxyCODONE OR oxyCODONE * Bronson Jarrett MD - 03/20/2025 8:55 AM EDT Images from the original note [...] This note may have been dictated using [employer] Practice Edition 2.6 and/or [facility] Voice Recognition Feature. The document was proofread; however, unrecognized voice recognition stave log cut off saw operator errors may be present. Attending Supervising Physician's [...] ondansetron ODT OR ondansetron, oxyCODONE OR oxyCODONE * Olivia Noriega, CALIBRATION TESTER - 03/19/2025 2:53 PM EDT Images from the original note were not included. PHYSICAL THERAPY [facility] Treatment Note Name/MRN: Francisco Ramos ([id number]) Date of : 1950 Age: 74 y.o. [facility]: [facility] Discharge Recommendation: 24 hour supervision or assist, Home with Home health PT Equipment Needed: No Assessment Patient is progressing towards goals, most limited by cognition, decreased endurance, and decreasedbalance. Performs transfers with SBA and is able [...] sit surface. Patients sits and stand impulsively andrequires cues for safety Device(s) used: None Ambulation [...] reach, left in bed, gait belt, and hose tester present Restraints: No Education Gait, transfers, balance Outcome Measures AM-PAC AM-PAC Inpatient Mobility Raw Score (No Stairs) : 17 JH-HLM JH-HLM Score: Walked 250 ft or more (i.e. [...] no assistive device in order to improve safetyand independence with mobility. (Progressing) Start: 03/17/25 Expected [...] Connell PT at 03/19/2025 3:30 PM EDT * Oriana Gil, RD - 03/19/2025 12:35 PM EDT Nutrition Assessment Type and Reason for Visit: Initial (diet transportation refrigeration technician referral for NPO/clear liquids > 3 [...] and drinking well recently. NPO/clear liquids since [facility] admission (3 days).) Weight Loss: (Weight history is limited over past 3 months in Epic. However, he has lost 10# (6.7%)x 4 months (150# on 11/26/24-->140# on 03/16/25)) Body Fat Loss: Unable to assess Muscle Mass Loss: Unable to assess Fluid Accumulation: No significant fluid accumulation (per flow sheets) Laundry Technician Strength: Not Performed Nutrition Assessment: 74 y.o. male with history of Parkinson's dementia, constipation, ? Prior sigmoid volvulus managed nonoperatively, CAD, HLD. Patient presented from [facility] for abdominal distention and pain. Imaging concern for sigmoid volvulus. He transferred to [facility] for further surgical evaluation. Repeat CT A/P [...] (kg): 63.5 kg Total Energy Requirements (kcals/day): 1779-7970 kcals per day (25-30) Weight Used for [...] Epic: 155# on 02/12/25, 150# on 11/26/24) Brenton Body Weight (lbs) (Calculated): 154 lbs [place] Body Weight (Kg) (Calculated): 70 kg BMI Categories: Underweight (BMI less than 22) age over 65 Nutrition Diagnosis: Inadequate protein-energy intake related to altered GI function as evidenced by NPO or clear liquidstatus due to medical condition Nutrition Interventions: Nutrition [...] soon to determine Oriana Gil RD Contact: *[phone] [1] carbidopa-levodopa, 1 tablet, Oral, BID carbidopa-levodopa, 1.5 tablet, Oral, BID docusate, 50 mg, Oral, Daily enoxaparin, 40 mg, SubCUTAneous, Daily pantoprazole (ProtoNix) 40 mg in sodium chloride (PF) 0.9 % 10 mL injection, 40 mg, IntraVENous, Daily [2] PRN medications: HYDROmorphone, naloxone, ondansetron ODT OR ondansetron, oxyCODONE OR oxyCODONE * YASHIRA Durant - 03/19/2025 11:30 AM EDT Images from the original note were not included. OCCUPATIONAL THERAPY [facility] Treatment Note Name/MRN: Francisco Ramos ([id number]) Date of : 1950 Age: 74 y.o. Room[facility]Bed: [facility] Discharge Recommendation: 24 hour supervision [...] services to increase independence c/ ADLs, fxl mobilityand transfers. Recommending 24 hour supervision/assist due to [...] notified, no alarms engaged upon entry, and hose tester present Restraints: No Education Education Given To: [...] Self YASHIRA Durant Cosigned by Latoya Grimaldo OTR/Ricardo at 03/19/2025 3:19 PM EDT * Bronson Jarrett MD - 03/19/2025 7:34 AM EDT Images from the original note were not included. Department of General Surgery Daily Progress Note ADMIT DATE: 03/16/2025 TODAY'S DATE: 03/19/2025 SUBJECTIVE: NAEO. Resting comfortably at bedside, abdomen mildly distended. No family bedside this AM. Pain well controlled. No noted flatus or Bms by the nursing secretary overnight. ROS: Noted above unless otherwise mentioned [...] This note may have been dictated using [employer] Medical Practice Edition 2.6 and/or [facility] Voice Recognition Feature. The document was proofread; however, unrecognized voice recognition stave log cut off saw operator errors may be present. Attending Supervising Physician's [...] ondansetron ODT OR ondansetron, oxyCODONE OR oxyCODONE * Rachel Woody, OTR/L - 03/18/2025 3:48 PM EDT Images from the original note were not included. OCCUPATIONAL THERAPY [facility] Initial Evaluation Name/MRN: Francisco Ramos ([id number]) Evaluation Date: 03/18/2025 Date of : 1950 Admission Date: 03/16/2025 6:13 AM Age: 74 y.o. [facility] Discharge Recommendation: 24 hour supervision [...] in bed, agreeable to OT. Pt with hose tester present. Pain: Pt denies any current pain. Past Medical History: Medical History[1] Past Surgical History: Surgical History[2] Admission Diagnosis: Patient Active Problem List Diagnosis Date Noted Sigmoid volvulus (CMS/HCC) (HCC) 03/16/2025 Medical Precautions: No active isolations Proper [...] Responsibilities: Independent Receives Help From: Spouse Active Senior Application Programmer: No Prior Level of Function Prior Level [...] to grab FMS. Upon voiding bladder, pt's FMSincontinent all over floor. Encouraged to sit on toilet for cleanup and change of clothing. Attempted to ambulate to bed, incontinent 2x more with a rest break on BSC between bathroom and bed. Assistfrom NETWORK MANAGEMENT SPECIALIST for cleanup and pt safety. Device(s) used: [...] of Care, Precautions, ADL Adaptive Strategies, Transfer Training,Energy Conservation, Family Education, Equipment, Fall Prevention Education, [...] of Care supervision is transferred to a [facility] Services Occupational Therapist. Goals and/or treatment plan was established in collaboration with patient/family/other representatives. [1] History reviewed. No pertinent past medical history. [2] History reviewed. No pertinent surgical history. * Linda Sharma - 03/18/2025 7:58 AM EDT Nutrition rescreen completed. Patient is NPO/Clear liquid >3 days. Refer to Dietitian. * Bronson Jarrett MD - 03/18/2025 7:32 AM EDT Images from the original note [...] This note may have been dictated using [employer] Practice Edition 2.6 and/or [facility] Voice Recognition Feature. The document was proofread; however, unrecognized voice recognition stave log cut off saw operator errors may be present. Attending Supervising Physician's [...] ondansetron ODT OR ondansetron, oxyCODONE OR oxyCODONE * Nicholas Kraus - 03/17/2025 9:24 AM EDT Images from the original note were not included. PHYSICAL THERAPY [facility] Initial Evaluation Name/MRN: Francisco Ramos ([id number]) Evaluation Date: 03/17/2025 Date of : 1950 Admission Date: 03/16/2025 6:13 AM Age: 74 y.o. Room/Bed: -6116/-6116 A Discharge Recommendation: 24 hour supervision or assist, Home with Home health PT Equipment Needed: No Assessment IMPRESSION: Patient presents status post proctoscopy and rectal tube placement on 03/16 following transfer from [place] on 03/16 for twisted colon and abdominal pain. Patient and report baseline of independence with all functional mobility and no use of assistive device for ambulation. Patient also has baseline Parkinson's disease that has been present. Patient presents today as SBA for bed mobility, CGA for transfers, CGA for ambulation up to 260 feet with no assistive device. Patient wouldbenefit from skilled PT services to address previously mentioned deficits. At this time patient would be appropriate for home with 24 hour supervision and Home Health PT following discharge. Admitting Diagnosis: Sigmoid volvulus Prognosis: fair Performance Deficits /Impairments: Decreased Functional Mobility, Decreased ADL status, Decreased Strength, Decreased Safety Awareness, Decreased Endurance, Decreased Balance, Decreased Coordination,and Decreased Posture Decision Making: Medium Complexity Subjective Patient supine in bed upon arrival. Patient present for majority of session. Patient agreeableto participate in therapy today. Pain: Pt denies any current pain. Past Medical History: Medical History[1] Past Surgical History: Surgical History[2] Admission Diagnosis: Patient Active Problem List Diagnosis Date Noted Sigmoid volvulus ([facility]) ([facility]) 03/16/2025 Medical Precautions: No active isolations Proper [...] nearby if additional assistance is needed Active Senior Application Programmer: N/A Prior Level of Function Prior Level [...] Raw Score (No Stairs) : 17 JH-HLM -HLM Score: Walked 250 ft or more (i.e. [...] PT Goals, Gait Training, Transfer Training, Discharge Recommendations,and Benefits of Increasing Activity Education Method: Verbal [...] no assistive device in order to improve safetyand independence with mobility. Start: 03/17/25 Expected End: [...] supervision is transferred to a [facility] Therapy Services Physical Therapist. Goals and/or treatment plan was established in collaboration with patient/family/other representatives. [1] History reviewed. No pertinent past medical history. [2] History reviewed. No pertinent surgical history. Cosigned by Hair Marrero PT at 03/17/2025 1:20 PM EDT * Bronson Jarrett MD - 03/17/2025 7:11 AM EDT Images from the original note were not included. Department of General Surgery Daily Progress Note ADMIT DATE: 03/16/2025 TODAY'S DATE: 03/17/2025 SUBJECTIVE: Agitation overnight, resolved this AM. Feels much less bloated than in prior days. Painwell controlled. Having flatus and bowel movements through [...] This note may have been dictated using [employer] Medical Practice Edition 2.6 and/or [facility] Voice Recognition Feature. The document was proofread; however, unrecognized voice recognition stave log cut off saw operator errors may be present. Attending Supervising Physician's [...] or ostomy, bowel injury, ureteral injury, vascular ornerve injury, prolonged healing, wound problems, and expected [...] ondansetron ODT OR ondansetron, oxyCODONE OR oxyCODONE * Stacy Burroughs MD - 03/16/2025 11:05 AM EDT Procedure: Rectal exam, rigid proctoscopy, and rectal [...] 03/16/2025 1:10 PM EDT documented in this [facility]07-18-2025 NoteProblem: Safety - Non- violent/Interference with Medical Treatment Restraint Goal: Remains free of injury from restraints (Restraint for Interference with Heel Nail Rasper) Outcome: Progressing Goal: Free from restraint(s) (Restraint for Interference with Heel Nail Rasper) [facility]: [facility] Plan of care note* Care Plan - Kitty Aguilar RN - 03/21/2025 5:26 AM EDT Problem: Safety - Non-violent/Interference with Medical Treatment Restraint Goal: Remains free of injury from restraints (Restraint for Interference with Heel Nail Rasper) Outcome: Progressing Goal: Free from restraint(s) (Restraint for Interference with Heel Nail Rasper) Outcome: Progressing [id number] Note* Home Care - Meghan Sheffield RN - 03/20/2025 4:09 PM EDT Due to patients history with violence against staff and naresh [facility] is unable to accept patient at this time. Referrals sent to other agencies to see if they are able to accept. Defense Analyst following case for Discharge Needs. [id number] Note* Home Care - Meghan Sheffield RN - 03/20/2025 4:09 PM EDT Due to patients history with violence against staff and code debo [facility] is unable to accept patient at this time. Referrals sent to other agencies to see if they are able to accept. Defense Analyst following case for Discharge Needs. [place] [id number] Note* Care Coordination - Cassia Dexter - 03/20/2025 3:01 PM EDT Patient requested to speak to social work. [...] are in need of any other services. [id number] Note* Care Coordination - Cassia Dexter - 03/20/2025 3:01 PM EDT Patient requested to speak to social work. [...] are in need of any other services. [id number] Note* Care Coordination - Renetta Caceres RN - 03/20/2025 1:29 PM EDT TCC in to speak with spouse, Gardenia. Gardenia requesting for help in the home. TCC discussed patient going to Rehab for short time, [place] declined. TCC reviewed home care and that it is just for short time throughout week. [place] agreeable to speak with social media coordinator. TCC secure message socialworker to see patient. [place] [id number] Note* Care Coordination - Renetta Caceres RN - 03/20/2025 1:29 PM EDT TCC in to speak with spouse, Gardenia. Gardenia requesting for help in the home. TCC discussed patient going to Rehab for short time, [place] declined. TCC reviewed home care and that it is just for short time throughout week. [place] agreeable to speak with social media coordinator. TCC secure message socialworker to see patient. [id number] NoteProblem: Safety - Non-violent/Interference with Medical Treatment Restraint Goal: Remains free of injury from restraints (Restraint for Interference with Heel Nail Rasper) Outcome: Progressing Goal: Free from restraint(s) (Restraint for Interference with Heel Nail Rasper) Outcome: Progressing Problem: Problem Interventions Goal: Assess Nutritional Intake [facility]: [facility] Plan of care note* Care Plan - Lu Bee RN - 03/20/2025 10:14 AM EDT Problem: Safety - Non-violent/Interference with Medical Treatment Restraint Goal: Remains free of injury from restraints (Restraint for Interference with Heel Nail Rasper) Outcome: Progressing Goal: Free from restraint(s) (Restraint for Interference with Heel Nail Rasper) Outcome: Progressing Problem: Problem Interventions Goal: Assess Nutritional Intake Outcome: Progressing [id number] Hospital Discharge instructions* Discharge Instructions* Yasmin Barry MD - 03/20/2025 10:00 AM [...] No lifting over 10 pounds until seen inoffice or otherwise instructed. If you have been [...] slowly dissolve over the next week. Do notpick at the glue. Surgery can hurt. Do not wait until you have pain to take the prescribed medications, it is hard tocatch up once the pain begins. No driving [...] such as ulcers, liver disease, or bleeding. * Discharge Instr - CROW* Lu Bee RN - 03/21/2025 8:55 AM EDT documented in this [facility]07-17-2025 [facility] Daily Progress Note ADMIT [...] This note may have been dictated using [employer] Practice Edition 2.6 and/or [facility] Voice Recognition Feature. The document was proofread; however, unrecognized voice recognition stave log cut off saw operator errors may be present. Attending Supervising Physician's [...] naloxone, ondansetron ODT OR ondansetron, oxyCODONE OR [facility] NoteProblem: Problem Interventions Goal: Assess Nutritional Intake Outcome: [facility]07[facility] Plan of care note* Care Plan - Triny Garvey RN - 03/20/2025 12:15 AM EDT Problem: Problem Interventions Goal: Assess Nutritional Intake Outcome: Progressing [id number] Nurse Note* Sheron Baptiste RN - 03/19/2025 5:37 PM EDT Maurisio (EDER RN) was called to unit d/t [...] the patient down. He was standing with assistanceand was able to converse with me. He [...] for his safety and apologized for the situationmaking him upset. He states he understands that he is unsteady and needs assistance, and that staffwere trying to keep him safe. His affect brightened as we spoke. At the end of the conversation he shook my hand and agreed to allow staff to help him with his balance, and confirmed understanding (currently) that he is not allowed to leave. [id number] Nurse Note* Sheron Baptiste RN - 03/19/2025 5:37 PM EDT Maurisio (EDER ORDONEZ) was called to unit d/t [...] the patient down. He was standing with assistanceand was able to converse with me. He [...] for his safety and apologized for the situationmaking him upset. He states he understands that he is unsteady and needs assistance, and that staffwere trying to keep him safe. His affect brightened as we spoke. At the end of the conversation he shook my hand and agreed to allow staff to help him with his balance, and confirmed understanding (currently) that he is not allowed to leave. * Melania Lugo RN - 03/18/2025 4:35 PM EDT Verified with patients that pt. Had jello and lemon ice yesterday for lunch. * Dalia Mas RN - 03/16/2025 7:54 PM EDT Around 1829 patient chair alarm was going off, I responded and tried to assist patient back into the chair but patient was not properly responsive to my requests and began to get agitated even after I called his and had him speak with his over the phone. MARCELL Hayward came into the roomto assist me to get the patient back [...] information to fill out an incident [facility] were filled out as well. Nikki Aguilar RN supervisor operations was notified of the incident. documented in this [facility]07-16-2025 Note* Care Coordination - Renetta Caceres RN - 03/19/2025 2:32 PM EDT Care Management Progress Note Short Medical why [...] Length of Stay (Days): 3 GMLOS: 3 [id number] Note* Care Coordination - Renetta Caceres RN - 03/19/2025 2:32 PM EDT Care Management Progress Note Short Medical why [...] Length of Stay (Days): 3 GMLOS: 3 [id number] NoteCare Management Progress Note Short Medical why still [...] Length of Stay (Days): 3 GMLOS: 3 [facility]07-16-2025 NoteNutrition Assessment Type and Reason for Visit: Initial (diet transportation refrigeration technician referral for NPO/clear liquids > 3 [...] and drinking well recently. NPO/clear liquids since [facility] admission (3 days).) Weight Loss: (Weight history is limited over past 3 months in Epic. However, he has lost 10# (6.7%) x 4 months (150# on 11/26/24-->140# on 03/16/25)) Body Fat Loss: Unable to assess Muscle Mass Loss: Unable to assess Fluid Accumulation: No significant fluid accumulation (per flow sheets) Laundry Technician Strength: Not Performed Nutrition Assessment: 74 y.o. male with history of Parkinson's dementia, constipation, ? Prior sigmoid volvulus managed nonoperatively, CAD, HLD. Patient presented from [facility] for abdominal distention and pain. Imaging concern for sigmoid volvulus. He transferred to [facility] for further surgical evaluation. Repeat CT A/P [...] (kg): 63.5 kg Total Energy Requirements (kcals/day): 0909-3697 kcals per day (25-30) Weight Used for [...] Epic: 155# on 02/12/25, 150# on 11/26/24) Brenton Body Weight (lbs) (Calculated): 154 lbs Brenton Body Weight (Kg) (Calculated): 70 kg BMI [...] soon to determine Oriana Gil RD Contact: *[phone] [1] carbidopa-levodopa, 1 tablet, Oral, BID carbidopa-levodopa, 1.5 tablet, Oral, BID docusate, 50 mg, Oral, Daily enoxaparin, 40 mg, SubCUTAneous, Daily pantoprazole (ProtoNix) 40 mg in sodium chloride (PF) 0.9 % 10 mL injection, 40 mg, IntraVENous, Daily [2] PRN medications: HYDROmorphone, naloxone, ondansetron ODT OR ondansetron, oxyCODONE OR oxyCODONESBronson [facility]07-[facility] Note Problem: Safety - Non-violent/Interference with Medical Treatment Restraint Goal: Remains free of injury from restraints (Restraint for Interference with Heel Nail Rasper) Outcome: Progressing Goal: Free from restraint(s) (Restraint for Interference with Heel Nail Rasper) [facility] Plan of care note* Care Plan - Lu Bee RN - 03/19/2025 8:31 AM EDT Problem: Safety - Non-violent/Interference with Medical Treatment Restraint Goal: Remains free of injury from restraints (Restraint for Interference with Heel Nail Rasper) Outcome: Progressing Goal: Free from restraint(s) (Restraint for Interference with Heel Nail Rasper) Outcome: Progressing [id number] NoteDepartment of General Surgery Daily Progress Note ADMIT DATE: 03/16/2025 TODAY'S DATE: 03/19/2025 SUBJECTIVE: NAEO. Resting comfortably at bedside, abdomen mildly distended. No family bedside this AM. Pain well controlled. No noted flatus or Bms by the nursing secretary overnight. ROS: Noted above unless otherwise mentioned [...] This note may have been dictated using MailMag Practice Edition 2.6 and/or [facility] Voice Recognition Feature. The document was proofread; however, unrecognized voice recognition stave log cut off saw operator errors may be present. Attending Supervising Physician's [...] naloxone, ondansetron ODT OR ondansetron, oxyCODONE OR [facility] [id number] Note Problem: Safety - Non-violent/Interference with Medical Treatment Restraint Goal: Remains free of injury from restraints (Restraint for Interference with Heel Nail Rasper) Outcome: Progressing Goal: Free from restraint(s) (Restraint for Interference with Heel Nail Rasper) [facility] Plan of care note* Care Plan - Arjun Zhao RN - 03/19/2025 6:32 AM EDT Problem: Safety - Non-violent/Interference with Medical Treatment Restraint Goal: Remains free of injury from restraints (Restraint for Interference with Heel Nail Rasper) Outcome: Progressing Goal: Free from restraint(s) (Restraint for Interference with Heel Nail Rasper) Outcome: Progressing [id number] Nurse Note* Perioperative Nursing Note - Lynn Sheth RN - 03/18/2025 8:42 PM EDT Report called to [facility] [place] [id number] Nurse Note* Perioperative Nursing Note - Lynn Sheth RN - 03/18/2025 8:16 PM EDT Called and updated pt at this time [id number] NotePatient: Francisco Gross Procedure Summary Date: 03/18/25 Room / Location: [facility] Operating Room Anesthesia Start: 1640 Anesthesia Stop: [...] discharged once all PACU criteria has been met.[facility] [id number] NotePatient: Francisco Gross Procedure Summary Date: 03/18/25 Room / Location: [facility] Operating Room Anesthesia Start: 1640 Anesthesia Stop: [...] Allowed opportunity for questions and acknowledgement of understanding.[facility]07-15-2025 NoteAirway Date/Time: 03/18/2025 4:48 PM Reason: scheduled Airway not difficult General Information and Staff Patient location during procedure: Procedural Resident/YOKE SETTER: GINO Iqbal CRNA Performed: YOKE SETTER Patient Condition Indications for airway management: anesthesia [...] attempts: BVM Number of attempts at approach: [address] [place], [place] [id number] Note Peripheral Block Time Out: 03/18/2025 4:49 PM Patient location during procedure: Procedural Start time: 03/18/2025 4:50 PM End time: 03/18/2025 4:54 PM Reason for block: at surgeon's request and post-op pain management Staffing Performed: YOKE SETTER Resident/YOKE SETTER: GINO Eng CRNA Preanesthetic Checklist Completed: patient [...] supine Prep: ChloraPrep Patient monitoring: heart rate, lunchroom monitor, continuous pulse ox and continuous capnometry [...] plane. and Local anesthetic injected without difficultyMedications iioMMAODbqxeg-xhkswbqimsh-jvmimwkxhod (TAP) syringe - Injection 60 mL - 03/18/2025 4:50:00 [facility]07-15-2025 Procedure note* Op Note - Bronson Jarrett MD - 03/18/2025 4:41 PM EDT OPERATIVE NOTE PATIENT NAME: Francisco Ramos : 1950 ATTENDING PHYSICIAN: Bronson Jarrett MD PROCEDURE DATE: 03/18/2025 PREOPERATIVE DIAGNOSIS: Sigmoid volvulus POSTOPERATIVE DIAGNOSIS: Same SURGEON: Bronson Jarrett MD DIRECTOR FINANCIAL PLANNING: Yasmin Barry OPERATION: Laparoscopic sigmoid colectomy ANESTHESIA: General ESTIMATED BLOOD LOSS: <50ml COMPLICATIONS: none SPECIMENS: Sigmoid colon and anastomotic rings INDICATIONS: The patient is a 74 y.o. year old male with history of above preop diagnosis. I explained the risk, benefits, expected outcome, and alternatives to the procedure. Patient understands therisks include but not inclusive to bleeding, infection, anesthesia complication, blood vessel/nervedamage, chronic pain, reoperation, and failure of the [...] rectal tube was removed. The abdomen was preppedwith ChloraPrep and the patient was draped in [...] mm Endo ROSALBA green load stapler and blueload stapler. We then used Enseal device to [...] We then placed a 33 mm anvil inthe colon and tied it down with our pursestring. The mesentery of the colon was cleared off using electrocautery. We then returned the colon and anvil back into the abdomen and regained insufflation with our gel point mini. The rectum was then serially dilated. The 33 mm EEA stapler was then placed transanally and the spike was opened up. We then created our [place] rectal anastomosis. We had to complete anastomotic rings.We then occluded the proximal portion of the [...] transferred to the PACU in stable condition. [id number] Procedure note* Brief Op Note - Yasmin Barry MD - 03/18/2025 4:41 PM EDT Date: 03/18/2025 Location: [facility] OR Name: Francisco [...] Tissue TISSUE EXAM Bronson Jarrett MD 03/18/25 105 Routine Description: SIGMOID COLON Staff: Legal Paraprofessional: Joseph Ibarra RN; Nika Schuster, RN Relief Legal Paraprofessional: Gini Awan RN; Cecilia Tinajero Relief Scrub: Nora Mahmood Scrub Person: Herman Khna RN Findings: See complete op note Complications: [...] Jarrett MD at 03/21/2025 12:18 PM EDT [id number] Nurse Note* Melania Lugo RN - 03/18/2025 4:35 PM EDT Verified with patients that pt. Had jello and lemon ice yesterday for lunch. [facility] [id number] NotePatient: Francisco Gross Procedure Information Date/Time: 03/18/25 1635 Procedure: LAPAROSCOPIC, COLECTOMY, SIGMOID, POSSIBLE OPEN, POSSIBLE OSTOMY CREATION (Abdomen) Location: [facility] OR Operating Room Surgeons: Bronson Jarrett [...] Equipment Requests [1] No family history on file.[facility] [id number] NoteOCCUPATIONAL THERAPY [facility] Initial Evaluation Name/MRN: Francisco Ramos ([id number]) Evaluation Date: 03/18/2025 Date of : 1950 Admission Date: 03/16/2025 6:13 AM Age: 74 y.o. [facility] Discharge Recommendation: 24 hour supervision [...] in bed, agreeable to OT. Pt with hose tester present. Pain: Pt denies any current pain. Past Medical History: Medical History[1] Past Surgical History: Surgical History[2] Admission Diagnosis: Patient Active Problem List Diagnosis Date Noted Sigmoid volvulus ([facility]) (HCC) 03/16/2025 Medical Precautions: No active isolations Proper [...] Responsibilities: Independent Receives Help From: Spouse Active Senior Application Programmer: No Prior Level of Function Prior Level [...] BSC between bathroom and bed. Assist from NETWORK MANAGEMENT SPECIALIST for cleanup and pt safety. Device(s) used: Used therapist for support AM-PAC AM-PAC Inpatient Daily Activity Raw Score: 15 ADL Inpatient CMS G-Code Modifier: CK Plan Pt would benefit from skilled acute OT services to address Strengthening, ROM, Gait Training, Balance Training, Self-Care/ADL Training, Functional Mobility Training, Endurance Training, Safety Edu (more content not included)...[facility]07-15-2025 Note* Home Care - Karina Clarke RN - 03/18/2025 2:24 PM EDT Spoke with TCC regarding pt combative behavior with staff and PT recs for [facility], but will wait to discuss possible home care services with pt/family until closer to dc. Defense Analyst following case for Discharge Needs. [id number] Note* Home Care - Karina Clarke RN - 03/18/2025 2:24 PM EDT Spoke with TCC regarding pt combative behavior with staff and PT recs for [facility], but will wait to discuss possible home care services with pt/family until closer to dc. Defense Analyst following case for Discharge Needs. [place] [id number] NoteDepartment of General Surgery Daily Progress Note ADMIT [...] This note may have been dictated using MailMag Practice Edition 2.6 and/or [facility] Voice Recognition Feature. The document was proofread; however, unrecognized voice recognition stave log cut off saw operator errors may be present. Attending Supervising Physician's [...] HYDROmorphone, naloxone, on (more content not included)... [facility]07-15-2025 NoteProblem: Safety - Non-violent/Interference with Medical Treatment Restraint Goal: Remains free of injury from restraints (Restraint for Interference with Heel Nail Rasper) Outcome: Progressing Goal: Free from restraint(s) (Restraint for Interference with Heel Nail Rasper) Outcome: [facility]07-15-2025 Plan of care note* Care Plan - Arjun Zhao RN - 03/18/2025 6:45 AM EDT Problem: Safety - Non-violent/Interference with Medical Treatment Restraint Goal: Remains free of injury from restraints (Restraint for Interference with Heel Nail Rasper) Outcome: Progressing Goal: Free from restraint(s) (Restraint for Interference with Heel Nail Rasper) Outcome: Progressing [facility] [id number] Note* Care Coordination - Renetta Caceres RN - 03/17/2025 3:11 PM EDT Care Management Progress Note Short Medical why still here: Patient admitted to [facility]6 s/p rigid proctoscopy with rectal tube insertion 03/16/2025 d/t sigmoid volvulus. Planned Discharge Disposition: (TBD) Barriers/Today we still Wait: Clinical stability, Symptomatic control, Administering IV medicationsPer TCC chart review patient sx awaiting continued colonic decompression with plan for colectomy. Patient remains NPO, IVF with a visual monitor in place per RN. Length of Stay (Days): 1 GMLOS: No GMLOS Documented [facility] [id number] Note* Care Coordination - Renetta Caceres RN - 03/17/2025 3:11 PM EDT Care Management Progress Note Short Medical why still here: Patient admitted to [facility] s/p rigid proctoscopy with rectal tube insertion 03/16/2025 d/t sigmoid volvulus. Planned Discharge Disposition: (TBD) Barriers/Today we still Wait: Clinical stability, Symptomatic control, Administering IV medicationsPer TCC chart review patient sx awaiting continued colonic decompression with plan for colectomy. Patient remains NPO, IVF with a visual monitor in place per RN. Length of Stay (Days): 1 GMLOS: No GMLOS Documented [facility] [id number] NoteCare Management Progress Note Short Medical why still [...] Stay (Days): 1 GMLOS: No GMLOS Documented [facility]07-14-2025 NotePHYSICAL THERAPY [facility] Initial Evaluation Name/MRN: Francisco Ramos ([id number]) Evaluation Date: 03/17/2025 Date of : 1950 Admission Date: 03/16/2025 6:13 AM Age: 74 y.o. [facility] Discharge Recommendation: 24 hour supervision or assist, Home with Home health PT Equipment Needed: No Assessment IMPRESSION: Patient presents status post proctoscopy and rectal tube placement on 03/16 following transfer from [facility] on 03/16 for twisted colon and abdominal [...] Problem List Diagnosis Date Noted Sigmoid volvulus ([facility]/HCC) ([facility]) 03/16/2025 Medical Precautions: No active isolations Proper [...] nearby if additional assistance is needed Active Senior Application Programmer: N/A Prior Level of Function Prior Level [...] TRAVIS, correcting path deviations, (more content not included)...[facility] [id number] NoteDepartment of General Surgery Daily Progress Note ADMIT [...] This note may have been dictated using [employer] Medical Practice Edition 2.6 and/or [facility] Voice Recognition Feature. The document was proofread; however, unrecognized voice recognition stave log cut off saw operator errors may be present. Attending Supervising Physician's [...] sodium chloride (PF) 0.9 (more content not included)...[facility] [id number] Nurse Note* Dalia Mas RN - 03/16/2025 7:54 PM EDT Around 1829 patient chair alarm was going off, I responded and tried to assist patient back into the chair but patient was not properly responsive to my requests and began to get agitated even after I called his and had him speak with his over the phone. MARCELL Hayward came into the roomto assist me to get the patient back [...] information to fill out an incident report andmstwest [facility] hospitales reports were filled out as well. Nikki Aguilar RN supervisor operations was notified of the incident. [id number] NoteProcedure: Rectal exam, rigid proctoscopy, and rectal tube [...] help Stacy Burroughs MD General Surgery Resident, PGY-1SBronson [facility]07-13-[facility] Emergency department Note* Nathaly Kraus RN - 03/16/2025 8:40 AM EDT Received report from JOSÉ LUIS Mujica [facility] [id number] Emergency department Note* Nathaly Kraus RN - 03/16/2025 8:40 AM EDT Received report from JOSÉ LUIS Mujica * Jameel Barraza DO - 03/16/2025 6:04 AM EDT EMERGENCY DEPARTMENT ENCOUNTER Pt Name: Francisco Ramos Birthdate 1950 Date of evaluation: 03/16/2025 ED Provider: Jameel Barraza DO CHIEF COMPLAINT Chief Complaint Patient presents with Abdominal Pain Transfer from [facility] for Colonoscopy due to a twisted colon. Pt reports that his symptomsbegan a few hours ago. Denies any N/V/D. [...] the emergency department by ED transfer from [facility] ED for abd pain. Workup at onset revealed sigmoid volvulus. Pt unable to remember details due to memory loss but able to state painstarted about 4 hours ago and was generalized. [...] Family History[3] SOCIAL HISTORY Social History[4] SCREENINGS Meadow Coma Scale Best Eye Response: Spontaneous Best Verbal Response: Oriented Best Motor Response: Follows commands [place]ow Coma Scale Score: 15 PHYSICAL EXAM ED [...] of these findings was made to JAMEEL Ventura Secure Chat on 03/16/2025 8:35 AM EDT. [...] abdominal pain for one day. Transferred from [facility] ED for sigmoid volvulus. Pt currently [...] (HCC) External records reviewed: External ED note [facility] Diagnostics interpreted by me: Discussions with other clinicians: Training Program Developer Surgery Resident Chronic conditions impacting care: Social [...] 75 mL (75 mL IntraVENous Given 03/16/25 9439) Prescription drugs considered: PROCEDURES: Unless otherwise noted below, none Procedures FINAL IMPRESSION 1. Sigmoid volvulus (CMS/HCC) ([facility]) DISPOSITION Admit 03/16/2025 09:51:07 AM PATIENT REFERRED [...] are any questions or concerns please feel freeto contact the dictating provider for clarification.) Jameel Barraza DO (electronically signed) Emergency Medicine Provider [1] History reviewed. No pertinent past medical history. [2] History reviewed. No pertinent surgical history. [3] No family history on file. [4] Social History Socioeconomic History Marital status: Jameel Barraza DO Resident 03/16/25 1508 Cosigned by Bhanu Hunter DO at 03/16/2025 3:36 PM EDT * Bhanu Hunter DO - 03/16/2025 6:04 AM EDT Emergency Department Encounter [facility] SURGICAL PROGRESSIVE [...] in the lower abdomen. Was seen at [facility] initially and there he underwent CT imaging that showed sigmoid volvulus. Transferred for further surgical evaluation. Since arriving to this hospital, he is denying any nausea, vomiting, or diarrhea. Does note painprimarily with palpation of the abdomen. No other complaints. Focused exam: Alert and oriented x 3. Heart is regular rate and rhythm. Lungs to auscultation bilaterally. Abdomen soft. Moderate distention noted. Tenderness to palpation left lower quadrant. No rebound or guarding. Brief ED course/MDM: Patient presents with known diagnosis sigmoid volvulus. Outside imaging reportreviewed. CT is repeated for further evaluation. Lactic acid level also obtained. Patient otherwisehemodynamically stable. No significant lactic acidosis. CT does [...] are any questions or concerns please feel freeto contact the dictating provider for clarification.) Bhanu Hunter DO [employer] Bhanu Hunter DO 03/16/25 1545 documented in this [facility]07-13-2025 History and physical note* Bronson Jarrett MD - 03/16/2025 6:49 AM EDT Images from the original note were not included. Department of General Surgery Surgical Service - CRS Resident Consult Note 03/16/2025 CHIEF COMPLAINT: Chief Complaint Patient presents with Abdominal Pain Transfer from [facility] for Colonoscopy due to a twisted colon. Pt reports that his symptomsbegan a few hours ago. Denies any N/V/D. Pt is A&ox 3.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 Recorded Date/ Time Living Will Yes December 30, 2020 6:44pm Do you have a Healthcare Power of Audio Recording Engineer? Yes December 30, 2020 6:44pm Advance Directives Yes March 21 7:13am Advance Directive Response Recorded Date/ Time Living Will Yes December 30, 2020 6:44pm Do you have a Healthcare Power of Audio Recording Engineer? Yes December 30, 2020 6:44pm Do you have a Healthcare Power of Audio Recording Engineer? Yes March 15, 2025 9:45pm Name of Medical Power of Audio Recording Engineer gardenia ramos March 15, 2025 9:45pm Advance Directives Yes March 21 7:13am Date Activated Date Inactivated Comments 03/20/2025 10:59 AM 03/21/2025 7:54 AM Question Answer Comments ICU transfer: Yes Intubation: Yes Date Activated Date Inactivated Comments 03/16/2025 10:53 AM 03/20/2025 10:59 AM Advance Directive Response Recorded Date/ Time Living Will Yes December 30, 2020 6:44pm Do you have a Healthcare Power of Audio Recording Engineer? Yes December 30, 2020 6:44pm Do you have a Healthcare Power of Audio Recording Engineer? No 2025 8:51pm Do you have a Healthcare Power of Audio Recording Engineer? Yes March 15, 2025 9:45pm Name of Medical Power of Audio Recording Engineer gardenia ramos March 15, 2025 9:45pm Advance Directives Yes March 21 7:13am Chief Complaint and Reason for Visit Chief Complaint 6-8 MO F/U (MOVED FR OM 10/19) IVIG IVIG IVIG IVIG Reason for Visit Atherosclerosis of c oronary artery of [place] heart without angina pectoris Hyperlipidemia Chief Complaint [...] 2024 11 :12am INCOMPLETE COLONOSCOPY/TORTUOUS COLON [facility] 2024 8:06am IVIG October 10, 2024 9 :29am IVIG November 07, 2024 10:3 8am Chief Complaint Admit Date IVIG August 08, 2024 1 1:34am IVIG September 05, 2024 11 :12am INCOMPLETE COLONOSCOPY/TORTUOUS COLON [facility] 2024 8:06am IVIG October 10, 2024 9 :29am IVIG November 07, 2024 10:3 8am Chief Complaint Admit Date IVIG August 08, 2024 1 1:34am IVIG September 05, 2024 11 :12am INCOMPLETE COLONOSCOPY/TORTUOUS COLON [facility] 2024 8:06am IVIG October 10, 2024 9 [...] 05, 2024 11 :12am INCOMPLETE COLONOSCOPY/TORTUOUS COLON [facility] 2024 8:06am IVIG October 10, 2024 9 :29am IVIG November 07, 2024 10:3 8am 1 Y FU November 28, 2024 10: 49am IVIG December 05, 2024 10:5 7am BRUIT December 17, 2024 1:2 0pm [facility] December 19, 2024 3:3 0pm Chief Complaint Admit Date INCOMPLETE COLONOSCOPY/TORTUOUS COLON [facility] 2024 8:06am IVIG October 10, 2024 9 [...] am constipation March 15, 2025 9:16 pm Chief Complaint Admit Date 1 Y FU November 28, 2024 10: 49am IVIG December 05, 2024 10:5 7am BRUIT December 17, 2024 1:2 0pm BRUIT December 17, 2024 1:5 8pm IVIG January 02, 2025 10:50a m [facility] January 06, 2025 2:30pm IVIG February 05, 2025 9:31a m IVIG March 05, 2025 11:06 am constipation March 15, 2025 9:16 pm AGITATION WITH PD, ADULT FTT 2025 11:17pm Reason for Visit Admit Date Carotid bruit November 28, 2024 10: 49am History of coronary artery stent placeme nt November 28, 2024 10:49am Hyperlipidemia November 28, 2024 10: 49am Combative behavior 2025 11:1 7pm History of Parkinson disease 2025 11:17pm Additional Source Comments (unrecognized sect ion and content) No Status Records FoundNo Status Records FoundNo Status Records FoundNo Status Records FoundNo Status Records FoundNo Status Records Found INFORMATION SOURCE (unrecogn ized section and content) DATE CREATED AUTHOR 02/27/2018 [facility] DATE CREATED AUTHOR AUTHOR'S ORGANIZ ATION 08/09/2019 [facility] ([place]) DATE CREATED AUTHOR AUTHOR'S ORGANIZ ATION 12/30/2022 [facility] DATE CREATED AUTHOR AUTHOR'S ORGANIZ ATION 05/25/2024 [facility] DATE CREATED AUTHOR AUTHOR'S ORGANIZ ATION 03/23/2025 [facility] DATE CREATED AUTHOR AUTHOR'S ORGANIZ ATION 2025 [facility] Goals (unrecognized section and content) [...] or prosecute any alcohol or drug abuse patient.[facility] the event this information is protected by the Federal Confidentiality of Alcohol and Drug Abuse Patient Records regulations: The Federal rules restrict any use of the information to criminally investigate or prosecute any alcohol or drug abuse patient.[facility] Center[facility] the event this information is protected by the Federal Confidentiality of Alcohol and Drug Abuse Patient Records regulations: The Federal rules restrict any use of the information to criminally investigate or prosecute any alcohol or drug abuse patient.[facility] Reason for Visit (unrecogniz ed section and content) Reason Comments Occupational Therapy Specialty Diagnoses / Procedures Referred By Contac t Referred To Contact [facility] Diagnoses Parkinson's disease Drivers evaluation Procedures NEW RS OT COMM REINTEGRATION Errol Larson MD [address] [place] [address] [facility] [place] [address] [place] [address] Referral ID Status Reason Start Date Expiration Date V isits Requested Visits Authorized [id number] Authorized 09/04/2021 09/03/2022 99 99 Reason Comments OT EVAL Reason Comments Consult Parkinsons Reason Comments Abdominal Pain Transfer from [facility] for Colonoscopy due to a twisted colon. Pt reports that his symptoms began a few hours ago. Denies any N/V/D. Pt is A&ox 3. Denies any other complaints at this time. Specialty Diagnoses / Procedures Referred By Laura t Referred To Contact Diagnoses Sigmoid volvulus (CMS/HCC) (HCC) Sigmoid Volvulous Procedures .. Bronson Jarrett MD [address] [place] [address] Phone: tel: fax: [facility]PT [address] [place] [address] Phone: tel: Referral ID Status Reason Start Date Expiration Date Visits Re quested Visits Authorized [id number] 1 1 Care Teams (unrecognized sec tion and content) Artillery Officer Relationship Specialty Start Date End Date Lacy Goldberg NO FORWARDING ADDRESS PCP - General 06/27/02 Artillery Officer Relationship Specialty Start Date End Date Lacy [...] Mat Jiang MD Attending Provider, Referring Pr mariah Active Team Status: Inactive Member Role Status Dates Dr. Ethan Avendano MD Primary Care Provider Active Dr. Leo Benoit MD Attending Provider, Referring Provider Active Team Status: Active Member Role Status Dates Dr. Ethan Avendano MD Primary Care Provider Active Joan Del Valle BARREL TESTER AND DRAINER, BARREL TESTER AND DRAINER-C Attending Provider, Referring Pr ovider Active Team Status: Inactive Member Role Status Dates Dr. Ethan Avendano MD Primary Care Provider Active Joanraul Leungbish BARREL TESTER AND DRAINER, BARREL TESTER AND DRAINER-C Attending Provider, Referring Pr ovider Active Team Status: Inactive Member Role Status Dates Dr. Ethan Avendano MD Primary Care Provider Active Dr. Jorden Ortiz DO Attending Provider, Referring Provider Active Artillery Officer Relationship Specialty Start Date End Date Lacy Goldberg Zachary NO FORWARDING ADDRESS PCP - General 06/27/02 [...] 2024 End: December 17, 2024 Dr. Demian aRmsay MD Attending Provider Active S tart: December [...] End: March 16, 2025 Dr. Brijesh Frederick , DO Emergency Provider Activ e Start: March 15, 2025 End: March 16, 2025 Artillery Officer Relationship Specialty Start Date End Date Ana Rosa Jameel [address] [place] [address] PCP - General 03/16/25 Team Status: Inactive Member Role/Relationship Status Dates Dr. Ethan Avendano MD Primary Care Provider Active Start: March 15, 2025 End: March 16, 2025 Dr. Brijesh Frederick DO Attending Provider Activ e Start: March 15, 2025 End: March 16, 2025 Dr. Brijesh Frederick DO Emergency Provider Activ e Start: March 15, 2025 End: March 16, 2025 Team Status: Active Member Role/Relationship Status Dates Dr. Ethan Avendano MD Primary Care Provider Active Start: 2025 Dr. Manny Galeana MD Emergency Provider Active S tart: 2025 Dr. Lacy Johnston MD Admit Provider Active St art: 2025 Dr. Lacy Johnston MD Attending Provider Active Start: 2025 Dr. Lacy Johnston MD Other Provider Active St art: 2025 Scheduled Active and Recently Administ ered Medications (unrecognized section and content) Medication Order 03/19/2025 03/20/2025 03/21/2025 carbidopa-levodopa (Sinemet) 25-250 MG per tablet 1 tablet 1 tablet, Oral, 2 times daily, First dose on Mon03/16/25 at 1800 1215 (Given - Provider: Lu Bee RN)1951 (Given - Provider: Triny Garvey RN) 0850 (Given - Provider: Lu Bee, JOSÉ LUIS)1727 (Given - Provider: Lu Bee RN) 0901 (Given - Provider: Lu Bee RN) carbidopa-levodopa (Sinemet) 25-250 MG per tablet 1.5 tablet 1.5 tablet, Oral, 2 times daily, First dose on Mon03/16/25 at 1630 0802 (Given - Provider: Lu Bee RN)1534 (Given - Provider: Lu Bee RN) 0628 (Given - Provider: Triny Garvey, JOSÉ LUIS)1329 (Given - Provider: Lu Bee, JOSÉ LUIS) [...] after reconstitution. 0801 (Given - Provider: Lu Bee RN) 08 (Given - Provider: Lu Bee RN) 09 (Not Given - Provider: Lu Bee RN [...] Indications: Hypokalemia 0629 (Given - Provider: Triny Garvey RN) PRN Medication Order 03/19/2025 03/20/2025 03/21/2025 acetaminophen [...] given IV. 1704 (Given - Provider: Lu Bee RN) naloxone (Narcan) injection 0.4 mg 0.4 mg, IntraVENous, Every 5 min PRN, opioid reversal, respiratory depression, Starting on [place] 03/16/25 at 1059, +++ For RR <10, pinpoint pupils, over sedation for opioid reversal - MUST notify metal precision machine assembler provider immediately after first dose, may give IM or SQ if no IV access +++ ondansetron (Zofran) injection 4 mg(Linked Group 2) 4 mg, IntraVENous, Every 6 hours PRN, nausea, vomiting, Starting on [place] 03/16/25 at 1053, 1st Line. Give IV [...] BE BASED ON THE PRIMARY CLINICAL RECORDS. [facility] [facility]. provides no warranty or guarantee of the accuracy or completeness of information in this document.
--- NOTE | 2025-03-26 04:29 | NURSING ---
Pt will not follow commands. Pt will not stay in bed. Pt put in chair at the nursing station. food given. Pt remains restless, trying to get out of chair. Dr yeung notified. Garry ordered
--- NOTE | 2025-03-26 04:58 | PCA ---
pt in gerrychair
[2025-03-26 07:53] VITALS: BP 130/61; PULSE 81; RESP 16; TEMP 36.7; O2SAT 98
[2025-03-26] MEDS: Aspirin E.C. 81 MG Tablet PO (07:58)
[2025-03-26] MEDS: Senna/Docusate Sodium 1 Tablet 2 TABLET PO (07:58)
[2025-03-26] MEDS: Memantine Hydrochloride 10 MG Tablet PO ×2 (07:59→20:02)
[2025-03-26] MEDS: buPROPion (SR) 100 MG TABLET.SA PO (07:59)
[2025-03-26 08:29] LABS: Hematocrit 39.3 % (40-54); Hemoglobin 13.4 g/dL (13.0-16.5); Immature Granulocytes Count 0.040 X10^3/uL (0.0-0.0); Mean Corp Hgb Conc 34.1 g/dL (32-36); Mean Corpuscular Volume 90.3 fL (80-94); Mean Platelet Vol. 10.5 fl (6.2-12.0); NRBC Flagged by Analyzer 0 % (0-5); POSITIVE COUNT YES; RBC Distribution Width CV 13.1 % (11.6-14.6); RBC Distribution Width SD 43.4 fl (35.1-43.9); Red Blood Count 4.35 M/mm3 (4.6-6.2); White Blood Count 5.5 K/mm3 (4.4-11.0)
[2025-03-26 09:04] LABS: AST(SGOT) 68 U/L (<=37); Alanine Aminotransfer ALT/SGPT 88 U/L (<=46); Albumin, Serum 4.0 g/dL (3.4-4.8); Alkaline Phosphatase 83 U/L (40-129); Anion Gap 11 (5-15); BUN 17 mg/dL (4-19); BUN/Creat Ratio 20.6 RATIO (10-20); Calcium,Total 9.4 mg/dL (7.6-11.0); Carbon Dioxide 24.9 mmol/L (21.0-32.0); Chloride 102 mmol/L (98-108); Differential Indicated SCAN CRITERIA MET; Estimated Creatinine Clearance 0.00 ml/min (50-250); Globulin 2.6 g/dL (2.2-4.2); Glucose 109 mg/dL (70-99); Potassium 4.3 mmol/L (3.3-5.1)
--- NOTE | 2025-03-26 12:11 | NURSING ---
phoned pt PCP office to request home med list, office closed and per their recording do no open back up until after 1330 today.
--- NOTE | 2025-03-26 13:48 | NURSING ---
spoke with PCP office, states they will fax over the home med list to [facility]
[2025-03-26 14:02] VITALS: BP 127/64; PULSE 85; RESP 16; TEMP 36.7; O2SAT 99
--- NOTE | 2025-03-26 14:17 | PCM.PROGNOTE ---
Subjective Subjective Patient seen and examined. His sister was by his bedside. He had no active complaints. He was a bit agitated this morning. Review of systems is otherwise negative. Objective Data Objective Data Vital Signs: Vital Signs Temp Pulse Resp BP Pulse Ox O2 Del Method 98.1 F 85 16 127/64 H 99 Room Air 03/26/25 14:02 03/26/25 14:02 03/26/25 14:02 03/26/25 14:02 03/26/25 14:02 03/26/25 14:02 Oxygen Delivery Method Room Air Weight: 0 oz Body Mass Index (BMI) 0.0 Intake & Output: Intake and Output for Last 24 Hours 03/24/25 03/25/25 03/26/25 23:59 23:59 23:59 Intake Total 300 / 300 Output Total 200 / 200 Balance 100 / 100 Lab / Micro Data 03/26/25 08:19 03/26/25 08:19 Labs: Laboratory Results - last 24 hr 03/25/25 21:15: WBC 5.6, RBC 4.27 L, Hgb 13.2, Hct 38.6 L, MCV 90.4, MCH 30.9, MCHC 34.2, RDW Std Deviation 43.5, RDW Coeff of Lou 13.2, Plt Count 162, MPV 10.0, Immature Gran % (Auto) 1.100 H, Neut % (Auto) 81.0 H, Lymph % (Auto) 10.2 L, [place] % (Auto) 7.5, Eos % (Auto) 0.0, Baso % (Auto) 0.2, Absolute Neuts (auto) 4.5, Absolute Lymphs (auto) 0.57 L, Nucleated RBC % 0, Sodium 138, Potassium 4.4, Chloride 100, Carbon Dioxide 26.2, Anion Gap 11, BUN 22 H, Creatinine 1.22 H, Estim Creat Clear Calc 50.42, Est GFR (MDRD) Non-Af 63, BUN/Creatinine Ratio 17.9, Glucose 135 H, Calcium 9.5, Phosphorus 2.0 L, Magnesium 1.9, Procalcitonin 0.08, Ethyl Alcohol < 10.1 03/25/25 22:17: Urine Color Yellow, Urine Clarity Clear, Urine pH 7.0, Ur Specific [place] 1.010, Urine Protein 15 H, Urine Glucose (UA) Normal, Urine Ketones 5 H, Urine Occult Blood Negative, Urine Nitrite Negative, Urine Bilirubin Negative, Urine Urobilinogen Normal, Ur Leukocyte Esterase Negative, Urine RBC 5-10 SEEN, Urine WBC 0-5 SEEN, Ur Squamous Epith Cells 0-5 SEEN, Urine Bacteria 1+, Urine Mucus 0 SEEN, Urine Opiates Screen NEGATIVE, U Buprenorphine Qual NEGATIVE, Ur Oxycodone Screen NEGATIVE, Urine Methadone Screen NEGATIVE, Urine Fentanyl Screen NEGATIVE, Ur Barbiturates Screen NEGATIVE, Ur Phencyclidine Scrn NEGATIVE, Ur Amphetamines Screen NEGATIVE, U Benzodiazepines Scrn NEGATIVE, Urine Cocaine Screen NEGATIVE, U Cannabinoids Screen NEGATIVE 03/26/25 08:19: WBC 5.5, RBC 4.35 L, Hgb 13.4, Hct 39.3 L, MCV 90.3, MCH 30.8, MCHC 34.1, RDW Std Deviation 43.4, RDW Coeff of Lou 13.1, Plt Count , MPV 10.5, Immature Gran % (Auto) 0.700, Neut % (Auto) 75.3 H, Lymph % (Auto) 13.7 L, [place] % (Auto) 9.9, Eos % (Auto) 0.0, Baso % (Auto) 0.4, Absolute Neuts (auto) 4.2, Absolute Lymphs (auto) 0.76 L, Nucleated RBC % 0, Platelet Estimate SLT DEC, Sodium 138, Potassium 4.3, Chloride 102, Carbon Dioxide 24.9, Anion Gap 11, BUN 17, Creatinine 0.84, Estim Creat Clear Calc 0.00 L*, Est GFR (MDRD) Non-Af 92, BUN/Creatinine Ratio 20.6 H, Glucose 109 H, Calcium 9.4, Total Bilirubin 0.29, AST 68 H, ALT 88 H, Alkaline Phosphatase 83, Total Protein 6.6, Albumin 4.0, Globulin 2.6, Albumin/Globulin Ratio 1.5 Radiography Diagnostic Testing: Radiology Impression Brain CT 03/25/25 21:35 IMPRESSION: No acute intracranial findings. Reading Location: [facility] Chest X-Ray 03/25/25 21:43 IMPRESSION: No acute cardiopulmonary process identified. Reading Location: [facility] Rhythm Strip Rhythm Strip: Sinus Tach Rate: 111 Ectopy: None Physical Exam Const alert and no apparent distress Constitutional Narrative: flat affect HEENT normocephalic, head/scalp atraumatic, moist oral mucous membranes and oropharynx normal Eyes PERRL and EOMs intact bilaterally Neck no lymphadenopathy and supple Lymph Lymphatic: no lymphadenopathy noted Resp normal respiratory effort, normal air movement and clear to auscultation bilaterally Cardio regular rate, regular rhythm, S1 normal heart sound, S2 normal heart sound and no murmurs GI normal to inspection, nondistended, normoactive bowel sounds, soft to palpation, non-tender and non-distended Extremity normal capillary refill, no clubbing, cyanosis or edema and no calf tenderness General Extremity: no tenderness to palpation of joints or extremities Skin General Skin Exam: no breakdown Neuro CN's II-XII intact bilaterally, no focal motor deficits and no sensory deficits noted Neuro Narrative: flat effect. Motor Exam: general weakness Psych Mood & Affect: flat affect Assessment & Plan Assessment/Plan (1) History of Parkinson disease: (2) Combative behavior: PLAN: Plan #Chronic Parkinson's disease with behavioral disturbance on sinemet and memantine CT brain showed no acute intracranial pathology. PT/OT on board. #Anxiety and depression: on lexapro and bupropion. #CAD s/p PCI: on aspirin, statiin. #Hypertension: med list being clarified. IV hydralazine prn #BPH with obstructive uropathy: s/p TURP. DVT prophylaxis: lovenox Code status: full code unverified. Charges/Coding Visit Charges Inpatient E&M: 13375 Subs Hosp L2
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
--- NOTE | 2025-03-26 15:15 | CASEMGMT ---
JOSÉ LUIS CUEVAS note: JOSÉ LUIS CUEVAS spoke w/pt's , Kimmy, via phone and explained hospitalization will be paid per?pt's insurance policy for Outpatient billing?and condition will continue to be evaluated for Inpt necessity. Also let pt know that [facility] sends paper in the billing packet with their phone number if questions arise. Discussed Pharmacy section of [facility] form and self administered medication guideline.? verbalizes understanding and does not have any questions. ?Form signed by this JOSÉ LUIS CUEVAS and ADRIENNE Petit, as a telephone signature, copy made and placed in chart, and original placed in pt's room. was made aware form would be in pt's room. Elodia ZAVALA RN, CM
--- NOTE | 2025-03-26 17:40 | CASEMGMT ---
Social Work- SW met with general ii farmworker from [facility]. fat purification worker feels that loy-psych is needed for stabilization and will begin referral process to facilities. SW updated hospitalist. fat purification worker to call pt . ADRIENNE remains available to follow. MARGAUX Cardozo
[2025-03-26] MEDS: MELATONIN 10 MG TABLET PO (20:02)
[2025-03-26 20:08] VITALS: BP 135/76; PULSE 98; RESP 16; TEMP 36.5; O2SAT 99
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
--- NOTE | 2025-03-26 21:53 | PCM.HOSP.N ---
Hospitalist Note Patient with continued agitation, more calm during the day, will increase seroquel to 50 mg q HS.
[2025-03-26 23:43] VITALS: BMI 20.9
[2025-03-27 02:28] VITALS: BP 149/83; PULSE 90; RESP 16; TEMP 36.5; O2SAT 98
[2025-03-27] MEDS: Aspirin E.C. 81 MG Tablet PO (07:55)
[2025-03-27] MEDS: buPROPion (XL) 300 MG TABLET.XL PO (07:55)
[2025-03-27 08:06] VITALS: BP 125/65; PULSE 88; RESP 18; TEMP 36.5; O2SAT 100
[2025-03-27] MEDS: Memantine Hydrochloride 10 MG Tablet PO (08:08)
[2025-03-27 08:10] VITALS: O2SAT 96
--- NOTE | 2025-03-27 08:50 | NURSING ---
Call from Crisis center, they have accepted pt to [facility], he will need an updated pink slip prior to him leaving. Please fax to [phone]. The accepting dr is going to be Dr. Sparks pt will go to room 311 bed 2, call nurse report to [phone]. Dr Chris made aware via text.
--- NOTE | 2025-03-27 10:05 | CASEMGMT ---
Addendum entered by Tiffanie Brown 03/27/25 10:47: SW received a call from [facility] requesting updates. ADRIENNE verified with Kimmy, pt , that SW can provide updates; permission granted to provide discharge information. MARGAUX Cardozo Original Note: Social Work- SW received notice that pt accepted at [facility]. Pt will be in room 311. ADRIENNE called [facility] to confirm. Hospitalist completed pink slip. ADRIENNE called [facility] to arrange transport. Transport form copy on chart. Transport scheduled for 12:30-13:00. ADRIENNE called pt to provide updates. Pt reports that she will be in this morning to visit. Pt reports no concerns at this time. Plan: [facility]; [facility] MARGAUX Cardozo
--- NOTE | 2025-03-27 10:16 | DCINST_ITS ---
Discharge Instructions DC O2, CPAP, BIPAP needs Home O2 Discharge instructions: No Dressing / Incision Discharge Activity: Return to Normal Activity Weight Bearing Status: Weight bearing as tolerated Dressing / Incision Call your doctor if you observe: Fever of 101 or Higher, Shortness of breath, Dizziness, Swelling in the ankles and Chest pain Follow Up Care Test Results: Test results from this visit will be discussed in further detail at your follow- up appointment, if applicable. Discharge Plan Admission Admit Date/Time: 03/25/25 22:59 Primary Reason for Your Visit: parkinson's disease with behavioral disturbance Attending Provider: Jessica Chris Primary Care Provider: Mahesh Avendano Consulting Providers: Lacy Johnston Instructions Patient Instructions: Understanding Parkinson Disease, Parkinson Disease Emotions Discharge Orders/Prescriptions Prescriptions: Continued immun glob A-scc-fpks-IgA 0-50 10 gram recon soln 20 g .Route .[id number] Patient Comments: Every 4 weeks Rx Instructions: IV every 4 weeks nitroglycerin 0.4 mg tablet, sublingual 0.4 mg sublingual Q5-15M PRN (Reason: chest pain) Qty: 25 3RF Rx Instructions: until response; do not exceed 3 doses per episode aspirin [Adult Low Dose Aspirin] 81 mg tablet,delayed release (DR/EC) 81 mg PO DAILY Patient Comments: verified per pt med list from PCP carbidopa-levodopa 25-100 mg tablet 1 tab PO .qid Rx Instructions: 5 tabs daily escitalopram oxalate [Lexapro] 5 mg tablet 10 mg PO DAILY rosuvastatin 40 mg tablet 40 mg PO QHS Patient Comments: Take 1 (one) Tablet with supper bupropion HCl 100 mg tablet sustained-release 12 hr 100 mg PO QAM multivitamin with folic acid 1 TABLET tablet 1 tab PO DAILY folic acid 0.4 MG tablet 1 tab PO DAILY ibuprofen 600 mg tablet 600 mg PO Q6H PRN (Reason: pain) Qty: 20 0RF memantine 5 mg tablet 5 mg PO BID levothyroxine 25 mcg tablet 25 mcg PO DAILY mirtazapine 30 mg tablet 15 - 30 mg PO QHS rosuvastatin 20 mg tablet 20 mg PO QHS bupropion HCl 300 mg tablet extended release 24 hr 300 mg PO DAILY melatonin 10 mg tablet 10 mg PO QHS carbidopa-levodopa 50-200 mg tablet extended release 1 tab PO 4X/DAY Rx Instructions: divide evenly over waking hours Referrals / Follow Up: Mahesh Avendano MD [Primary Care Provider] - Within 1 Week Disposition Disposition (needs filled in before D/C Order can be placed): Psychiatric Hospital [facility] Unit
--- NOTE | 2025-03-27 10:18 | DS.PCM_ITS ---
Providers Date of Admission: 03/25/25 Date of Discharge: 03/27/25 Primary Care Physician: Dr. Mahesh Avendano MD Reason For Visit: AGITATION WITH PD, ADULT FTT Diagnosis Discharge Diagnosis (1) History of Parkinson disease: Status: Acute Code(s): Z86.69 - Personal history of other diseases of the nervous system and sense organs (2) Combative behavior: Status: Acute Code(s): R46.89 - Other symptoms and signs involving appearance and behavior Plan #Chronic Parkinson's disease with behavioral disturbance * on sinemet and memantine * CT brain showed no acute intracranial pathology. * PT/OT on board. * #Anxiety and depression: on lexapro and bupropion. #CAD s/p PCI: on aspirin, statiin. #Hypertension: med list being clarified. IV hydralazine prn #BPH with obstructive uropathy: s/p TURP. DVT prophylaxis: lovenox Code status: full code unverified. Medications at Discharge Home Medications multivitamin with folic acid 400 mcg tablet 1 tab PO DAILY 06/10/13 folic acid 400 mcg tablet 1 tab PO DAILY 12/24/13 immune glob,gamma(IgG) 10 vcyo-boy-oadk-IgA 0 to 50 mcg/mL IV solution 20 g .Route .[id number] 03/04/19 nitroglycerin 0.4 mg sublingual tablet 0.4 mg sublingual Q5-15M PRN chest pain #25 tabs 04/03/19 ibuprofen 600 mg tablet 600 mg PO Q6H PRN pain #20 tabs 12/30/20 aspirin 81 mg tablet,delayed release (Adult Low Dose Aspirin) 81 mg PO DAILY 01/05/21 memantine 5 mg tablet 5 mg PO BID 02/01/23 rosuvastatin 40 mg tablet 40 mg PO QHS 10/10/23 bupropion HCl 100 mg tablet,12 hr sustained-release 100 mg PO QAM 11/28/24 carbidopa 25 mg-levodopa 100 mg tablet 1 tab PO .qid 11/28/24 escitalopram oxalate 5 mg tablet (Lexapro) 10 mg PO DAILY 11/28/24 bupropion HCl 300 mg 24 hr tablet, extended release 300 mg PO DAILY 03/26/25 carbidopa ER 50 mg-levodopa 200 mg tablet,extended release 1 tab PO 4X/DAY 03/26/25 levothyroxine 25 mcg tablet 25 mcg PO DAILY 03/26/25 melatonin 10 mg tablet 10 mg PO QHS 03/26/25 mirtazapine 30 mg tablet 15 - 30 mg PO QHS 03/26/25 rosuvastatin 20 mg tablet 20 mg PO QHS 03/26/25 Hospital Course Operations None Procedures None Summary of Care Provided Minutes Spent on Discharge: 42 Hospital Course: Patient is a 75-year-old male with past medical history as outlined which includes Parkinson's disease and recent onset of behavioral disturbance was admitted through the ED on 03/25/2025 on account of agitation, being combative and confused at home. His spouse called the police and he was brought in by the squad. Family did not feel comfortable taking him home on account of his combative behavior which was likely due to the underlying Parkinson's disease. Urinalysis only showed 1+ bacteria but he did not really have any symptoms of UTI. CT of the brain showed no acute intracranial pathology. He was admitted to be managed for failure to thrive with Parkinson's disease and behavioral disturbance. On admission neurology was consulted by the hospitalist was contacted by the neurologist who said they felt that the patient's symptoms were likely due to his Parkinson's disease and they did not manage the behavioral disturbance aspect of it. Consult was therefore canceled. Patient was reviewed by mental health crisis team and he was accepted in a [facility] facility in [place]. Of note he did receive Seroquel during this admission on account of his combativeness and agitation. He was discharged to the [facility] unit on 03/27/2025. He is follow-up with his primary care doctor within 1 to 2 weeks. Patient seen and examined. He had his nurse by his bedside and his sister was also by his bedside. He was counseled. He said he felt well and had no complaints. He was agitated overnight and so his Seroquel was increased to 50 mg nightly. Review of systems otherwise negative. Labs and vitals reviewed. Home medications reviewed and reconciled. Physical Exam Const alert and no apparent distress Constitutional Narrative: flat affect General Appearance: cooperative HEENT normocephalic, head/scalp atraumatic, moist oral mucous membranes and oropharynx normal Mouth: oral and palatal mucosa normal Eyes PERRL, EOMs intact bilaterally and conjunctivae normal Neck no lymphadenopathy and supple Lymph Lymphatic: no lymphadenopathy noted Resp normal respiratory effort, normal air movement and clear to auscultation bilaterally Cardio regular rate, regular rhythm, S1 normal heart sound, S2 normal heart sound and no murmurs GI normal to inspection, nondistended, normoactive bowel sounds, soft to palpation, non-tender and non-distended Extremity normal to inspection, full ROM, normal capillary refill, no clubbing, cyanosis or edema and no calf tenderness General Extremity: no tenderness to palpation of joints or extremities Skin General Skin Exam: no breakdown Neuro CN's II-XII intact bilaterally, no focal motor deficits and no sensory deficits noted Neuro Narrative: flat effect. Motor Exam: general weakness Psych Mood & Affect: flat affect Weight / BMI Weight Weight: 138 lb 0.15 oz Body Mass Index (BMI) 20.9 ABG / Lab / Microbiology Data 03/26/25 08:19 03/26/25 08:19 D/C Instructions Weight Bearing Status: Weight bearing as tolerated Call your doctor if you observe: Fever of 101 or Higher, Shortness of breath, Dizziness, Swelling in the ankles and Chest pain DC O2, CPAP, BIPAP Needs Home O2 Discharge instructions: No DC home with Oxygen: No Meaningful Use Info Meaningful Use Meaningful Use Diagnoses (Choose all that apply): None applicable Discharge Plan Admission Admit Date/Time: 03/25/25 22:59 Primary Reason for Your Visit: parkinson's disease with behavioral disturbance Attending Provider: Jessica Chris Primary Care Provider: Mahesh Avendano Consulting Providers: Lacy Johnston Instructions Patient Instructions: Understanding Parkinson Disease, Parkinson Disease Emotions Discharge Orders/Prescriptions Prescriptions: Continued immun glob N-pyw-xgya-IgA 0-50 10 gram recon soln 20 g .Route .[id number] Patient Comments: Every 4 weeks Rx Instructions: IV every 4 weeks nitroglycerin 0.4 mg tablet, sublingual 0.4 mg sublingual Q5-15M PRN (Reason: chest pain) Qty: 25 3RF Rx Instructions: until response; do not exceed 3 doses per episode aspirin [Adult Low Dose Aspirin] 81 mg tablet,delayed release (DR/EC) 81 mg PO DAILY Patient Comments: verified per pt med list from PCP carbidopa-levodopa 25-100 mg tablet 1 tab PO .qid Rx Instructions: 5 tabs daily escitalopram oxalate [Lexapro] 5 mg tablet 10 mg PO DAILY rosuvastatin 40 mg tablet 40 mg PO QHS Patient Comments: Take 1 (one) Tablet with supper bupropion HCl 100 mg tablet sustained-release 12 hr 100 mg PO QAM multivitamin with folic acid 1 TABLET tablet 1 tab PO DAILY folic acid 0.4 MG tablet 1 tab PO DAILY ibuprofen 600 mg tablet 600 mg PO Q6H PRN (Reason: pain) Qty: 20 0RF memantine 5 mg tablet 5 mg PO BID levothyroxine 25 mcg tablet 25 mcg PO DAILY mirtazapine 30 mg tablet 15 - 30 mg PO QHS rosuvastatin 20 mg tablet 20 mg PO QHS bupropion HCl 300 mg tablet extended release 24 hr 300 mg PO DAILY melatonin 10 mg tablet 10 mg PO QHS carbidopa-levodopa 50-200 mg tablet extended release 1 tab PO 4X/DAY Rx Instructions: divide evenly over waking hours Referrals / Follow Up: Mahesh Avendano MD [Primary Care Provider] - Within 1 Week Disposition Disposition (needs filled in before D/C Order can be placed): Psychiatric Hospital or Unit Charges/Coding Visit Charges Inpatient E&M: 20805 Disch Hosp >30min
--- NOTE | 2025-03-27 10:57 | NURSING ---
Report called to nurse Holt at [phone]. Pt to be picked up between 12:30 and 13:00.
--- NOTE | 2025-03-27 17:01 | CASEMGMT ---
Social work ED SW received a call from Jose Elias at [facility] (ph: [phone]) at 0920 and ADRIENNE called back at 1130 and left a voicemail. Jose Elias returned call at 1620 and asked for patient's disposition to know how best to help patient and patient's family. ADRIENNE passed along patient's disposition to [facility] and Jose Elias had no further needs at this time. Gabrielle Garcia, MAILROOM MESSENGER, SENIOR LIVING SALES COUNSELOR
== END 2025-03-27 13:05 ==
LOC: ED 22:06 → MS3 23:18
PROVIDERS: Admitting Provider Family Medicine; Emergency Provider Emergency Medicine; PCP Family Medicine; Visit Provider Student in an Organized Health Care Education/Training Program
DX: G20.A1 Parkinson's disease without dyskinesia, without mention of fluctuations (principal); D83.9 Common variable immunodeficiency, unspecified; I25.10 Atherosclerotic heart disease of native coronary artery without angina pectoris; R62.7 Adult failure to thrive; F41.9 Anxiety disorder, unspecified; E78.00 Pure hypercholesterolemia, unspecified; Z79.82 Long term (current) use of aspirin; N18.2 Chronic kidney disease, stage 2 (mild); R46.89 Other symptoms and signs involving appearance and behavior; N40.1 Benign prostatic hyperplasia with lower urinary tract symptoms; N13.8 Other obstructive and reflux uropathy; Z79.899 Other long term (current) drug therapy; F32.A Depression, unspecified; I12.9 Hypertensive chronic kidney disease with stage 1 through stage 4 chronic kidney disease, or unspecified chronic kidney disease; R06.02 Shortness of breath
CPT/HCPCS: 36415; 70450; 71045; 80048; 80053; 80307; 81001; 82077; 83735; 84100; 84145; 85025; 92610; 93005; 94668; 96372; 97162; 97165; 99221; 99285; G0378

== ENCOUNTER 2025-04-09 12:46 | Outpatient (CLI) | payer MEDICARE, OTHER, SELFPAY ==
[2019-03-11 14:03] VITALS: BMI 24.3
[2025-04-09 13:06] VITALS: BP 111/59; PULSE 91; RESP 16; TEMP 36.3; O2SAT 100; BMI 21.2
[2025-04-09] MEDS: 0.9% NaCl Peripheral Flush Adult IV (13:25)
[2025-04-09] MEDS: Immune Globulin 20 gm 20 GM/200 ML VIAL IV (13:25)
== END 2025-04-09 23:59 | disposition home or self-care (01) ==
LOC: MEDOUTP 12:46
PROVIDERS: PCP Family Medicine; Referring Provider Family Medicine; Visit Provider Family Medicine
DX: Z02.9 Encounter for administrative examinations, unspecified (principal); D83.9 Common variable immunodeficiency, unspecified
CPT/HCPCS: 96365; 96366; A4216; J1568

== ENCOUNTER → 2025-04-17 | Outpatient (CLI) | payer MEDICARE, OTHER, SELFPAY ==
[2019-03-11 14:03] VITALS: BMI 24.3
[2025-04-17 18:05] LABS: Hematocrit 38.1 % (40-54); Hemoglobin 12.7 g/dL (13.0-16.5); Immature Granulocytes Count 0.020 X10^3/uL (0.0-0.0); Mean Corp Hgb Conc 33.3 g/dL (32-36); Mean Corpuscular Volume 92.7 fL (80-94); NRBC Flagged by Analyzer 0 % (0-5); POSITIVE COUNT YES; RBC Distribution Width CV 13.1 % (11.6-14.6); RBC Distribution Width SD 44.4 fl (35.1-43.9); Red Blood Count 4.11 M/mm3 (4.6-6.2); White Blood Count 4.5 K/mm3 (4.4-11.0)
[2025-04-17 18:25] LABS: AST(SGOT) 22 U/L (<=37); Alanine Aminotransfer ALT/SGPT 10 U/L (<=46); Albumin, Serum 4.1 g/dL (3.4-4.8); Alkaline Phosphatase 65 U/L (40-129); Anion Gap 11 (5-15); BUN 16 mg/dL (4-19); BUN/Creat Ratio 20.0 RATIO (10-20); Calcium,Total 9.4 mg/dL (7.6-11.0); Carbon Dioxide 26.0 mmol/L (21.0-32.0); Chloride 103 mmol/L (98-108); Globulin 2.3 g/dL (2.2-4.2); Glucose 110 mg/dL (70-99); Potassium 4.2 mmol/L (3.3-5.1)
[2025-04-17 19:56] LABS: Differential Indicated SCAN CRITERIA MET
[2025-04-17 21:46] LABS: Differential Comment SCANNED
== END | disposition home or self-care (01) ==
LOC: MTLAB 15:19
PROVIDERS: PCP Family Medicine; Referring Provider Family Medicine; Visit Provider Family Medicine
DX: G90.3 Multi-system degeneration of the autonomic nervous system (principal)
CPT/HCPCS: 36415; 80053; 85025

== ENCOUNTER 2025-05-07 13:01 | Outpatient (CLI) | payer MEDICARE, OTHER, SELFPAY ==
[2019-03-11 14:03] VITALS: BMI 24.3
[2025-05-07 13:22] VITALS: BP 129/67; PULSE 86; RESP 16; TEMP 35.9; O2SAT 100; BMI 21.9
[2025-05-07] MEDS: Immune Globulin 20 gm 20 GM/200 ML VIAL IV (13:37)
[2025-05-07] MEDS: 0.9% NaCl Peripheral Flush Adult IV (13:37)
== END 2025-05-07 23:59 | disposition home or self-care (01) ==
LOC: MEDOUTP 13:01
PROVIDERS: PCP Family Medicine; Referring Provider Family Medicine; Visit Provider Family Medicine
DX: Z02.9 Encounter for administrative examinations, unspecified (principal); D83.9 Common variable immunodeficiency, unspecified
CPT/HCPCS: 96365; 96366; A4216; J1568

== ENCOUNTER 2025-05-14 21:35 | Emergency (ER) | payer MEDICARE, OTHER, SELFPAY ==
[2019-03-11 14:03] VITALS: BMI 24.3
[2025-05-14 21:36] VITALS: BP 167/84; PULSE 100; RESP 16; TEMP 36.8; O2SAT 98; BMI 22.6
[2025-05-14 22:59] LABS: Red Blood Cells-Urine 0 SEEN /hpf (0-5); Squamous Epithelial Cells - UA 0 SEEN /hpf (0-5)
[2025-05-14 23:03] LABS: Color, Urine Yellow (Yellow); Glucose, Dipstick Normal (Normal); Ketone-Dipstick 15 mg/dl (Negative); Leukocyte Esterase-Dipstick Negative /ul (Negative); Nitrite-Dipstick Negative (Negative); Occult Blood-Urine Negative /ul (Negative); Protein-Dipstick 30 mg/dl (Negative); Specific Gravity, Urine 1.020 (1.002-1.030); Urine Bilirubin Dipstick Negative (Negative)
[2025-05-14 23:14] LABS: Mucous, Urine 1+ /hpf (<or=2+)
[2025-05-14 23:36] VITALS: BP 155/71; PULSE 80; RESP 18; O2SAT 99
[2025-05-15 01:00] VITALS: BP 140/80; PULSE 80; RESP 16; O2SAT 98
--- NOTE | 2025-05-15 01:08 | EX.ED.DYSGE1 ---
HPI History of Present Illness Chief Complaint: General Illness Informant: SNF Narrative Narrative: Patient is a 75-year-old [facility] with past medical history of Parkinson's disease and parkinsonian dementia as well as BPH and hyperlipidemia. shelter states he has been combative and secondary to this sentiment for evaluation. The patient does not know why he is at the hospital. He is alert and oriented to person and place but disoriented to time and nursing reports this is his baseline mental status. [facility] Medical History History of Parkinson disease Combative behavior Tortuous colon Wears glasses Arthritis High cholesterol Easy bruising Back pain Non-smoker History of pain when walking History of echocardiogram History of stress test Cardiology follow-up encounter Parkinson disease Atherosclerosis of coronary artery of [place] heart without angina pectoris Hyperlipidemia Common variable immunodeficiency Benign prostate hyperplasia Basal cell carcinoma of left ear Home Medications ?Medication ?Instructions ?Recorded ?Last Taken ?Type multivitamin with folic acid 400 1 tab PO DAILY 06/10/13 08/22/24 History mcg tablet immune glob,gamma(IgG) 10 20 g .Route .[id number] 03/04/19 08/08/24 History fano-lbq-afaq-IgA 0 to 50 mcg/mL IV solution nitroglycerin 0.4 mg sublingual 0.4 mg sublingual Q5-15M PRN chest 04/03/19 Unknown Rx tablet pain #25 tabs ibuprofen 600 mg tablet 600 mg PO Q6H PRN pain #20 tabs 12/30/20 08/22/24 Rx aspirin 81 mg tablet,delayed 81 mg PO DAILY 01/05/21 08/19/24 History release (Adult Low Dose Aspirin) memantine 5 mg tablet 5 mg PO BID 02/01/23 08/22/24 History carbidopa 25 mg-levodopa 100 mg 1 tab PO .qid 11/28/24 Unknown History tablet carbidopa ER 50 mg-levodopa 200 mg 1 tab PO 4X/DAY 03/26/25 Unknown History tablet,extended release levothyroxine 25 mcg tablet 25 mcg PO DAILY 03/26/25 Unknown History divalproex 250 mg tablet,delayed 250 mg PO TID 05/07/25 Unknown History release quetiapine 25 mg tablet 25 mg PO DAILY 05/07/25 Unknown History rivastigmine 13.3 mg/24 hour 13.3 mg transdermal DAILY 05/07/25 Unknown History transdermal patch sennosides 8.6 mg-docusate sodium 1 tab-cap PO DAILY 05/07/25 Unknown History 50 mg tablet (Senna-Time S) Allergy/AdvReac Type Severity Reaction Status Date / Time No Known Allergies Allergy Verified 05/14/25 21:42 Family History Mother Heart disease valve replacement Father Parkinson disease Surgical History History of cardiac catheterization Hx of colonoscopy Hx of transurethral resection of prostate History of coronary artery stent placement (03/21/19) History of herniorrhaphy History of bilateral cataract extraction Social History (Updated 03/25/25 @ 23:[address] Lacy Johnston MD) household members: spouse Smoking Status: Never smoker alcohol intake: current alcohol intake frequency: holidays/special occasions only substance use type: does not use caffeine: No ROS ROS ED ROS Narrative Please note review of systems may be unreliable secondary to patient's history of parkinsonian dementia Constitutional Constitutional ED: Denies chills or fever(s) Eyes Eyes: Denies change in vision ENT ENT ED: Reports rhinorrhea; Denies sore throat Cardiovascular Cardiovascular: Denies chest pain Respiratory/Chest Respiratory/Chest: Denies cough or dyspnea Gastrointestinal Gastrointestinal: Denies abdominal pain, diarrhea or vomiting Musculoskeletal Musculoskeletal: Denies myalgias Integumentary Denies rash Neurologic Neurologic: Denies headache(s) EXAM Physical Exam Const Vital Signs: 05/14/25 21:36 05/14/25 23:36 05/15/25 01:00 Temperature 98.3 F Temperature Source Oral Pulse Rate 100 80 80 Respiratory Rate 16 18 16 Blood Pressure 167/84 H 155/71 H 140/80 H Blood Pressure Mean 111 99 100 Pulse Ox 98 99 98 Oxygen Delivery Method Room Air 05/15/25 01:33 Temperature 97.6 F L Temperature Source Pulse Rate 80 Respiratory Rate 16 Blood Pressure 140/80 H Blood Pressure Mean 100 Pulse Ox 98 Oxygen Delivery Method Positive well nourished and well developed General Appearance ED: well developed HEENT HEENT Narrative: Normocephalic atraumatic No tongue or lip swelling no oral lesions no airway edema or compromise; no secondary findings in the posterior pharynx to suggest infection Eyes PERRL and EOMs intact bilaterally General Eye ED: Negative for scleral icterus Neck supple Neck Narrative: No nuchal rigidity or meningeal signs Resp normal respiratory effort and clear to auscultation bilaterally Cardio regular rate and regular rhythm Rate: other Other Details: Radial and carotid pulses are equal and symmetric GI normal to inspection, nondistended, normoactive bowel sounds, non-tender, non-distended and no masses Auscultation: normoactive bowel sounds Palpation: soft Extremity normal to inspection Neuro CN's II-XII intact bilaterally and no sensory deficits noted Neuro Narrative: GCS of 14 Patient is awake and alert to person and place but disoriented to time which is baseline mental status No focal neurologic deficits noted Sensorium / Orientation: alert Motor Exam: strength 5/5 throughout Psych Psych Narrative: Patient is calm and cooperative; no combative behavior noted Skin no rashes or lesions noted MDM MDM MDM Narrative Medical decision making narrative: Patient presented to the ER hypertensive otherwise with stable vitals. Nursing reported patient has been combative. This is most likely related to his underlying Parkinson's disease and dementia associated with it. In order to ensure that the reported combative behavior is not due to a urinary tract infection a urine sample was obtained. This showed +1 bacteria but no white cells or leukocyte esterase or nitrites and this is most likely normal anel and I do not feel this is a true infection and therefore there is no need for antibiotic. His TSH was checked based on his history of hypothyroidism and is within the normal range going against myxedema. His valproic acid level is also in the therapeutic window going against toxic medication level. In the ER the patient has been calm and cooperative there is been no bouts of aggressive or combative behavior. His vitals have remained stable. Therefore do not feel there is need for further intervention or workup in the ER and he is otherwise safe for discharge History & Record Review Discussion w/independent historian: Other (shelter) Additional record(s) reviewed:: Prior outpatient record Lab Data Attestation: I reviewed the patient's lab results. Labs: Laboratory Results - last 24 hr 05/14/25 05/14/25 05/14/25 22:04 22:55 23:08 TSH 2.100 Urine Color Yellow Urine Clarity Clear Urine pH 6.5 Ur Specific Posey 1.020 Urine Protein 30 H Urine Glucose (UA) Normal Urine Ketones 15 H Urine Occult Blood Negative Urine Nitrite Negative Urine Bilirubin Negative Urine Urobilinogen 4 H Ur Leukocyte Esterase Negative Urine RBC 0 SEEN Urine WBC 0-5 SEEN Ur Squamous Epith Cells 0 SEEN Urine Bacteria 1+ Urine Mucus 1+ Valproic Acid 52 Discharge Plan Triage Chief Complaint: General Illness ED Provider: Azeem Mendez Dx/Rx/DC Orders Clinical Impression: Parkinson's disease, Hyperlipidemia, History of coronary artery disease, BPH (benign prostatic hyperplasia), Hypothyroidism Instructions: Parkinson Common Symptoms Prescriptions: No Action immun glob L-zjy-jvff-IgA 0-50 10 gram recon soln 20 g .Route .[id number] Patient Comments: Every 4 weeks Rx Instructions: IV every 4 weeks nitroglycerin 0.4 mg tablet, sublingual 0.4 mg sublingual Q5-15M PRN (Reason: chest pain) Qty: 25 3RF Rx Instructions: until response; do not exceed 3 doses per episode aspirin [Adult Low Dose Aspirin] 81 mg tablet,delayed release (DR/EC) 81 mg PO DAILY Patient Comments: verified per pt med list from PCP carbidopa-levodopa 25-100 mg tablet 1 tab PO .qid Rx Instructions: 5 tabs daily multivitamin with folic acid 1 TABLET tablet 1 tab PO DAILY ibuprofen 600 mg tablet 600 mg PO Q6H PRN (Reason: pain) Qty: 20 0RF memantine 5 mg tablet 5 mg PO BID levothyroxine 25 mcg tablet 25 mcg PO DAILY carbidopa-levodopa 50-200 mg tablet extended release 1 tab PO 4X/DAY Rx Instructions: divide evenly over waking hours divalproex 250 mg tablet,delayed release (DR/EC) 250 mg PO TID quetiapine 25 mg tablet 25 mg PO DAILY rivastigmine 13.3 mg/24 hour patch 24 hour 13.3 mg transdermal DAILY sennosides-docusate sodium [Senna-Time S] 8.6-50 mg tablet 1 tab-cap PO DAILY Primary Care Provider: Mahesh Avendano Referrals: Mahesh Avendano MD [Primary Care Provider] - Activity Restrictions/Additional Instructions: The patient has not shown any agitation or aggression in the ER. His vitals are stable and he does not have a urinary tract infection. Please continue all of his home medications as previously directed. Return to the ER should you have any further concerns Print Language: Citizen Of [place] Disposition Disposition: Home, Self Care
[2025-05-15 01:11] LABS: Valproic Acid (Depakene) Level 52 ug/mL (50-100)
--- OUTSIDE RECORDS SUMMARY | 2025-05-15 01:19 | XMS RPT_ITS | CCD ---
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 above: Performed By: #### L AB15, [id number] ####Bath Attendant: JAZLYN BRUCE ([id number])[facility])[address] [place] [address] [place] Urea nitrogen [Mass/Vol] 18 mg/dL Normal 9-23 [facility] Comment on above: Performed By: #### L AB15, [id number] ####Bath Attendant: JAZLYN BRUCE ([id number])[facility] [place] [address] Basic metabolic 1998 panelon 03-20-2025 Anion gap [Moles/Vol] 8 mmol/L 3 - 13 mmol/L [facility] Calcium [Mass/Vol] 9 mg/dL 8.8 - 10. 0 mg/dL [facility] Chloride [Moles/Vol] 104 mmol/L 98 - 10 7 mmol/L [facility] CO2 [Moles/Vol] 23 mmol/L 23 - 31 mmol/L [facility] Creatinine [Mass/Vol] 0.82 mg/dL 0.72 - 1.25 mg/dL [facility] GFR/1.73 sq M.predicted (S/P/Bld) [Vol rate/Area] - PINF [facility] Comment on above: Calculation based on the Chronic Kidney Disease Epidemiology Collaboration (CKD-EPI) equation refit without adjustment for race Glucose [Mass/Vol] 99 mg/dL 82 - 115 mg/dL [facility] Interpretation and review of laboratory results Abnormal [facility] Potassium [Moles/Vol] 3.3 mmol/L Low 3.5 - 5.1 mmol/L [facility] Comment on above: Plasma potassium sia ues may be up to 0.5 mmol/L lower than serum values. Sodium [Moles/Vol] 135 mmol/L Low 136 - 145 mmol/L [facility] Urea nitrogen [Mass/Vol] 18 mg/dL 9 - 23 mg/d L [facility] CBC W Auto Differential pane l (Bld)Ordered By: Kamini Anne on 03-20-2025 Basophils (Bld) [#/Vol] 0 10*3/uL 0.0 - 0.2 10*3/uL [facility] Basophils/100 WBC (Bld) 0.1 % 0.0 - 2.0 % [facility] Eosinophils (Bld) [#/Vol] 0 10*3/uL 0.0 - 0.5 10*3/uL [facility] Eosinophils/100 WBC (Bld) 0 % 0.0 - 6.0 % [facility] Erythrocyte distribution width (RBC) [Ratio] 13 % 11.5 - 15.0 % [facility] Hematocrit (Bld) [Volume fraction] 40 % 40.0 - 52.0 % [facility] Hemoglobin (Bld) [Mass/Vol] 13.7 g/dL 13.0 - 18.0 g/dL [facility] Immature granulocytes (Bld) [#/Vol] 0 10*3/uL NINF - 0.1 10*3/uL [facility] Immature granulocytes/100 WBC (Bld) 0.5 % 0.0 - 2.0 % [facility] Interpretation and review of laboratory results Abnormal [facility] Lymphocytes (Bld) [#/Vol] 1.1 10*3/uL 1.0 - 4.3 10*3/uL [facility] Lymphocytes/100 WBC (Bld) 14.1 % Low 15.0 - 45.0 % [facility] MCH (RBC) [Entitic mass] 30.7 pg 26. 0 - 34.[address] [facility] MCHC (RBC) [Mass/Vol] 34.3 % 30.5 - 36.0 % [facility] MCV (RBC) [Entitic vol] 89.7 fL 77.0 - 99.[address] [facility] Monocytes (Bld) [#/Vol] 0.6 10*3/uL 0.0 - 0.9 10*3/uL [facility] Monocytes/100 WBC (Bld) 8.4 % 5.0 - 13.0 % [facility] Neutrophils (Bld) [#/Vol] 5.9 10*3/uL 1.8 - 7.5 10*3/uL [facility] Neutrophils/100 WBC (Bld) 76.9 % 38.0 - 82.0 % [facility] Nucleated RBC/100 WBC (Bld) [Ratio] 0 % [facility] Platelet mean volume (Bld) [Entitic vol] 10.9 fL 9.0 - 12.[address] [facility] Platelets (Bld) [#/Vol] 155 10*3/uL 140 - 440 10*3/uL [facility] RBC (Bld) [#/Vol] 4.46 10*6/uL 4.40 - 5.9 0 10*6/uL [facility] WBC (Bld) [#/Vol] 7.7 10*3/uL 3.6 - 10.7 10*3/uL [facility] CBC WITH AUTO DIFFERENTIALon 03-20-2025 Basophils (Bld) [#/Vol] 0.0 10*3/uL Normal 0.0-0.2 [facility] Comment on above: Performed By: #### L [id number] #### Bath Attendant: JAZLYN BRUCE ([id number]) [facility]) [address] [place] [address] Basophils/100 WBC (Bld) 0.1 % Normal 0.0-2.0 [facility] Comment on above: Performed By: #### L [id number] #### Bath Attendant: JAZLYN BRUCE ([id number]) [facility]) [address] [place] [address] Eosinophils (Bld) [#/Vol] 0.0 10*3/uL Normal 0.0-0.5 [facility] Comment on above: Performed By: #### L [id number] #### Bath Attendant: JAZLYN BRUCE ([id number]) [facility]) [address] [place] [address] Eosinophils/100 WBC (Bld) 0.0 % Normal 0.0-6.0 [facility] Comment on above: Performed By: #### L [id number] #### Bath Attendant: JAZLYN BRUCE ([id number]) [facility]) [address] [place] [address] Erythrocyte distribution width (RBC) [Ratio] 13.0 % Normal 11.5-15.0 [facility] Comment on above: Performed By: #### L [id number] #### Bath Attendant: JAZLYN BRUCE ([id number]) [facility]) [address] [place] [address] Hematocrit (Bld) [Volume fraction] 40.0 % Normal 40.0-52.0 [facility] Comment on above: Performed By: #### L [id number] #### Bath Attendant: JAZLYN BRUCE ([id number]) [facility]) [address] [place] [address] Hemoglobin (Bld) [Mass/Vol] 13.7 g/dL Normal 13.0-18.0 [facility] Comment on above: Performed By: #### L [id number] #### Bath Attendant: JAZLYN BRUCE ([id number]) [facility]) [address] [place] [address] IMMATURE GRANS % 0.5 % Normal 0.0-2.0 [facility] Comment on above: Performed By: #### L [id number] #### Bath Attendant: JAZLYN BRUCE ([id number]) [facility]) [address] [place] [address] IMMATURE GRANS ABSOLUTE 0.0 10*3/uL Normal <0.1 [facility] Comment on above: Performed By: #### L [id number] #### Bath Attendant: JAZLYN BRUCE ([id number]) [facility]) [address] [place] [address] Lymphocytes (Bld) [#/Vol] 1.1 10*3/uL Normal 1.0-4.3 [facility] Comment on above: Performed By: #### L [id number] #### Bath Attendant: JAZLYN BRUCE ([id number]) [facility]) [address] [place] [address] Lymphocytes/100 WBC (Bld) 14.1 % Low 15.0-45.0 [facility] Comment on above: Performed By: #### L [id number] #### Bath Attendant: JAZLYN BRUCE ([id number]) [facility]) [address] [place] [address] MCH (RBC) [Entitic mass] 30.7 pg Normal 26.0-34.0 [facility] Comment on above: Performed By: #### L [id number] #### Bath Attendant: JAZLYN BRUCE ([id number]) [facility]) [address] [place] [address] MCHC 34.3 % Normal 30.5-36.0 [facility] Comment on above: Performed By: #### L [id number] #### Bath Attendant: JAZLYN BRUCE ([id number]) [facility] [address] [place] [address] MCV (RBC) [Entitic vol] 89.7 fL Normal 77.0-99.0 [facility] Comment on above: Performed By: #### L [id number] #### Bath Attendant: JAZLYN BRUCE ([id number]) [facility]) [address] [place] [address] [place] Monocytes (Bld) [#/Vol] 0.6 10*3/uL Normal 0.0-0.9 [facility] Comment on above: Performed By: #### L [id number] #### Bath Attendant: JAZLYN BRUCE ([id number]) [facility]) [address] [place] [address] Monocytes/100 WBC (Bld) 8.4 % Normal 5.0-13.0 [facility] Comment on above: Performed By: #### L [id number] #### Bath Attendant: JAZLYN BRUCE ([id number]) [facility]) [address] [place] [address] NEUTROPHILS ABSOLUTE 5.9 10*3/uL Normal 1.8-7.5 [facility] Comment on above: Performed By: #### L [id number] #### Bath Attendant: JAZLYN BRUCE ([id number]) [facility]) [address] [place] [address] Neutrophils/100 WBC (Bld) 76.9 % Normal 38.0-82.0 [facility] Comment on above: Performed By: #### L [id number] #### Bath Attendant: JAZLYN BRUCE ([id number]) [facility] [address] [place] [address] NRBC 0.0 /100 WBCs Normal 0.0-2.0 [facility] Comment on above: Performed By: #### L [id number] #### Bath Attendant: JAZLYN BRUCE ([id number]) [facility] [address] [place] [address] Platelet mean volume (Bld) [Entitic vol] 10.9 fL Normal 9.0-12.7 [facility] Comment on above: Performed By: #### L [id number] #### Bath Attendant: JAZLYN BRUCE ([id number]) [facility]) [address] [place] [address] Platelets (Bld) [#/Vol] 155 10*3/uL Normal 140-440 [facility] Comment on above: Performed By: #### L [id number] #### Bath Attendant: JAZLYN BRUCE ([id number]) [facility] [address] [place] [address] RBC (Bld) [#/Vol] 4.46 10*6/uL Normal 4.40-5.90 [facility] Comment on above: Performed By: #### L [id number] #### Bath Attendant: JAZLYN BRUCE ([id number]) [facility] [address] [place] [address] WBC (Bld) [#/Vol] 7.7 10*3/uL Normal 3.6-10.7 [facility] Comment on above: Performed By: #### L [id number] #### Bath Attendant: JAZLYN BRUCE ([id number]) [facility]) [address] [place] [address] Consulton 03-20-2025 Consult ---- Attestation with edits by Libby Stephens MD at 04/03/2025 4:19 AM ATTENDING ATTESTATION: I saw and independently examined Mr. Ramos on 03/20/2025. The case was discussed on rounds with the resident, Dr. Ceron.I agree with the history , examination, and medical decision making as outlined. See my annotations in italics. Please see resident note for further recommendations. On my evaluation, Mr. Ramos has a sitter at bedside. He is still confused but is not combative. Cooperative with exam. ---- [facility] Inpatient Consult Service Admission Date: 03/16/2025 Admission Status: INPATIENT Chief Complaint: Chief Complaint Patient presents with Abdominal Pain Transfer from [facility] for Colonoscopy due to a twisted colon. Pt reports that his symptoms began a few hours ago. Denies any N/V/D. Pt is A&ox 3. Denies any other complaints at this time. Reason for Appointment Geriatrics consulted for dementia and acute delirium post-op Assessment/Plan Principal Problem: Sigmoid volvulus (CMS/HCC) (HCC) Encephalopathy -improving today -pt and endorse hallucinations at home and during admission -Pt is post-op day 2 -pt had a code debo called yesterday, Haldol 0.5mg given, pt much calmer and less agitated after discussion with EDER ORDONEZ -currently no prn meds for agitation -Implement evidence-based practices to decrease delirium such as keeping lights on and blinds open during the day, ensuring adequate hydration and nutrition, minimizing use of tethers such as catheters, lines, and restraints, minimizing disruptions after 11:00pm to allow for adequate rest at night, encourage mobilization early in the day, encourage use and presence of familiar objects such as family photos, avoid benzodiazepines and anti-cholinergic medications Agree with above. Caution with using antipsychotics for agitation given diagnosis of parkinson's. Recommend nonpharmacologic management of agitation as able. Cognitive decline -Pt's endorses cognitive decline over the past couple of years that she attributes mostly to his Parkinson's dx -MoCA/MMSE assessment not done in the inpatient setting, more accurate assessment could be made outpatient -Pt may benefit from outpatient follow up with [facility] -Information for [facility] can be included in the pt's discharge paperwork Agree with above. Declining functional status, related to Parkinson's diagnosis -Pt and report shuffling gait, likely related to Parkinson's dx -Follows with [facility] in [place], [place] -denies history of falls -pt does not currently use assistive device for ambulation -PT/OT consulted for this pt -PT recommending discharge to home with home health PT -Pt may benefit from outpatient follow up with [facility] -Information for [facility] can be included in the pt's discharge paperwork Agree with above. Subjective: HPI 74 y.o. year-old male presented from [facility] for colonoscopy d/t twisted colon. Geriatrics ED screen: Do you (or your loved one) have problems with your memory that affect your (their) day to day activities or that you or your family notice most days?: No Do you (or loved one) live alone AND/OR Do you (they) need more help at home then you (they) have now or currently available?: No Have you (or loved one) been in the hospital in the last 3 months?: No Do you (or loved one) have trouble with your walking or balance? Or Have you (they) fallen recently?: No Do you (or loved one) have trouble with your walking or balance? Or Have you (they) fallen recently?: No Do you (or loved one) take more than 5 medications or vitamins every day?: No When compared to others your (their) own age, are you (or loved one) in worse health?: No Total Score: 0 Quick Cognitive Screen (QCS): Nursing Delirium Screen (Nu-Desc): Nursing Delirium Symptom Checklist Total Score: 2 Conversation with patient: Patient was pleasant and conversational during my encounter this morning. He is alert and oriented x 1. He is able to tell me the month is March with some probing but reports the year is 1924. He is able to answer all of my questions but he is not accurate in all of his answers according to his . He lives at home with his in [place] and they have a son that lives in the area and a daughter that lives in [place]. He was diagnosed with Parkinson's in 2019 and has been following with neurology since then. He is currently taking carbidopa levodopa. He reports hallucinations at home and while in the hospital. Sometimes he thinks he hears somebody knocking at the door, or that he hears the phone ringing, or that he sees a cat in the house. He did use (more content not included)... Normal [facility] Laboratory - Chemistry and C hemistry - challengeon 03-20-2025 Magnesium [Mass/Vol] 1.9 mg/dL 1.6 - 2 .6 mg/dL [facility] MAGNESIUMon 03-20-2025 Magnesium [Mass/Vol] 1.9 mg/dL Normal 1.6-2.6 [facility] Comment on above: Result Comment: HENNY Catalan COMMENTS: Higher values can be expected in females during menses. Performed By: #### L AB15, [id number] ####Bath Attendant: JAZLYN BRUCE ([phone])[facility])[address] [place] [address] Magnesium [Mass/Vol]on 03-20 Interpretation and review of laboratory results Normal [facility] Higher values can be expected in females during menses. [facility] BASIC METABOLIC PANELon 03-04 Anion gap [Moles/Vol] 13 mmol/L Normal 3-13 [facility] Comment on above: Performed By: #### L AB15 ####Bath Attendant: JAZLYN BRUCE ([id number])[facility])[address] [place] [address] Calcium [Mass/Vol] 8.2 mg/dL Low 8.8-10.0 [facility] Comment on above: Performed By: #### L AB15 ####Bath Attendant: JAZLYN BRUCE ([id number])[facility])[address] [place] [address] Chloride [Moles/Vol] 106 mmol/L Normal 98-107 [facility] Comment on above: Performed By: #### L AB15 ####Bath Attendant: JAZLYN BRUCE ([id number])[facility])[address] [place] [address] CO2 [Moles/Vol] 16 mmol/L Low 23-31 [facility] Comment on above: Performed By: #### L AB15 ####Bath Attendant: JAZLYN BRUCE ([id number])[facility] [place] [address] Creatinine [Mass/Vol] 0.73 mg/dL Normal 0.72-1.25 [facility] Comment on above: Performed By: #### L AB15 ####Bath Attendant: JAZLYN BRUCE ([phone])[facility])[address] [place] [address] GLOMERULAR FILTRATION RATE ML/MIN/1.73 SQ M.PREDICTED >90.0 Normal >60.0 [facility] Comment on above: Result Comment: Calc ulation based on the Chronic Kidney Disease Epidemiology Collaboration (CKD-EPI) equation refit without adjustment for race Performed By: #### L AB15 ####Bath Attendant: JAZLYN BRUCE ([phone])[facility])[address] [place] [address] [place] Glucose [Mass/Vol] 149 mg/dL High 82-115 [facility] Comment on above: Performed By: #### L AB15 ####Bath Attendant: JAZLYN BRUCE ([phone])[facility])[address] [place] [address] Potassium [Moles/Vol] 4.0 mmol/L Normal 3.5-5.1 [facility] Comment on above: Result Comment: [facility] potassium values may be up to 0.5 mmol/L lower than serum values. Performed By: #### L AB15 ####Bath Attendant: JAZLYN BRUCE ([phone])[facility] [place] [address] [place] Sodium [Moles/Vol] 135 mmol/L Low 136-145 [facility] Comment on above: Performed By: #### L AB15 ####Bath Attendant: JAZLYN BRUCE ([phone])[facility])[address] [place] [address] [place] Urea nitrogen [Mass/Vol] 13 mg/dL Normal 9-23 [facility] Comment on above: Performed By: #### L AB15 ####Bath Attendant: JAZLYN BRUCE ([id number])[facility] ([address] Basic metabolic 1998 panelon 03-19-2025 Anion gap [Moles/Vol] 13 mmol/L 3 - 13 mmol/L [facility] Calcium [Mass/Vol] 8.2 mg/dL Low 8.8 - 10. 0 mg/dL [facility] Chloride [Moles/Vol] 106 mmol/L 98 - 10 7 mmol/L [facility] CO2 [Moles/Vol] 16 mmol/L Low 23 - 31 mmol/L [facility] Creatinine [Mass/Vol] 0.73 mg/dL 0.72 - 1.25 mg/dL [facility] GFR/1.73 sq M.predicted (S/P/Bld) [Vol rate/Area] - PINF [facility] Comment on above: Calculation based on the Chronic Kidney Disease Epidemiology Collaboration (CKD-EPI) equation refit without adjustment for race Glucose [Mass/Vol] 149 mg/dL High 82 - 115 mg/dL [facility] Interpretation and review of laboratory results Abnormal [facility] Potassium [Moles/Vol] 4 mmol/L 3.5 - 5.1 mmol/L [facility] Comment on above: Plasma potassium sia ues may be up to 0.5 mmol/L lower than serum values. Sodium [Moles/Vol] 135 mmol/L Low 136 - 145 mmol/L [facility] Urea nitrogen [Mass/Vol] 13 mg/dL 9 - 23 mg/d L [facility] CBC W Auto Differential pane l (Bld)Ordered By: Lacy Power on 03-19-2025 Erythrocyte distribution width (RBC) [Ratio] 12.5 % 11.5 - 15.0 % [facility] Hematocrit (Bld) [Volume fraction] 37.6 % Low 40.0 - 52.0 % [facility] Hemoglobin (Bld) [Mass/Vol] 13.1 g/dL 13.0 - 18.0 g/dL [facility] Interpretation and review of laboratory results Abnormal [facility] [employer] IPF 3 [facility] MCH (RBC) [Entitic mass] 30.6 pg 26. 0 - 34.[address] [facility] MCHC (RBC) [Mass/Vol] 34.8 % 30.5 - 36.0 % [facility] MCV (RBC) [Entitic vol] 87.9 fL 77.0 - 99.[address] [facility] Platelet mean volume (Bld) [Entitic vol] 10.8 fL 9.0 - 12.[address] [facility] Platelets (Bld) [#/Vol] 117 10*3/uL Low 140 - 440 10*3/uL [facility] RBC (Bld) [#/Vol] 4.28 10*6/uL Low 4.40 - 5.9 0 10*6/uL [facility] WBC (Bld) [#/Vol] 6.3 10*3/uL 3.6 - 10.7 10*3/uL [facility] CBC WITH AUTO DIFFERENTIALon 03-19-2025 Erythrocyte distribution width (RBC) [Ratio] 12.5 % Normal 11.5-15.0 [facility] Comment on above: Performed By: #### Ricardo [id number], [id number] ####Bath Attendant: JAZLYN BRUCE ([id number])[address] Hematocrit (Bld) [Volume fraction] 37.6 % Low 40.0-52.0 [facility] Comment on above: Performed By: #### Ricardo [id number], [id number] ####Bath Attendant: JAZLYN BRUCE ([id number])[address] Hemoglobin (Bld) [Mass/Vol] 13.1 g/dL Normal 13.0-18.0 [facility] Comment on above: Performed By: #### Ricardo [id number], [id number] ####Bath Attendant: JAZLYN BRUCE ([id number])[address] IPF 3 Normal [facility] Comment on above: Performed By: #### L [id number], [id number] ####Bath Attendant: JAZLYN BRUCE ([id number])[facility])[address] [place] [address] MCH (RBC) [Entitic mass] 30.6 pg Normal 26.0-34.0 [facility] [facility] Comment on above: Performed By: #### Ricardo [id number], [id number] ####Bath Attendant: JAZLYN BRUCE ([phone])[facility])[address] [place] [address] MCHC 34.8 % Normal 30.5-36.0 [facility] Comment on above: Performed By: #### Ricardo LUTHER, [id number] ####Bath Attendant: JAZLYN BRUCE ([phone])[facility])[address] [place] [address] MCV (RBC) [Entitic vol] 87.9 fL Normal 77.0-99.0 [facility] Comment on above: Performed By: #### Ricardo LUTHER, [id number] ####Bath Attendant: JAZLYN BRUCE ([phone])[facility])[address] [place] [address] Platelet mean volume (Bld) [Entitic vol] 10.8 fL Normal 9.0-12.7 [facility] Comment on above: Performed By: #### Ricardo LUTHER, [id number] ####Bath Attendant: JAZLYN BRUCE ([phone])[facility])[address] [place] [address] Platelets (Bld) [#/Vol] 117 10*3/uL Low 140-440 [facility] Comment on above: Performed By: #### Ricardo [id number], [id number] ####Bath Attendant: JAZLYN BRUCE ([phone])[facility])[address] [place] [address] RBC (Bld) [#/Vol] 4.28 10*6/uL Low 4.40-5.90 [facility] Comment on above: Performed By: #### L [id number], [id number] ####Bath Attendant: JAZLYN BRUCE ([phone])[facility])[address] [place] [address] WBC (Bld) [#/Vol] 6.3 10*3/uL Normal 3.6-10.7 [facility] Comment on above: Performed By: #### Ricardo [id number], [id number] ####Bath Attendant: JAZLYN BRUCE ([phone])[facility] [place] [id number] [facility] Laboratory - Hematology and Cell countson 03-19-2025 Band form neutrophils (Bld) [#/Vol] 0.4 10*3/uL High NINF - 0.0 10*3/uL [facility] Band form neutrophils/100 WBC (Bld) 6 % High NINF - 0 % [facility] Thompson cells LM Ql (Bld) Slight Abnormal (none) [facility] Lymphocytes (Bld) [#/Vol] 0.1 10*3/uL Low 1.0 - 4.3 10*3/uL [facility] Lymphocytes/100 WBC (Bld) 1 % Low 15 - 45 % [facility] Monocytes (Bld) [#/Vol] 0.1 10*3/uL 0.0 - 0.9 10*3/uL [facility] Monocytes/100 WBC (Bld) 2 % Low 5 - 13 % [facility] Neutrophils (Bld) [#/Vol] 6 10*3/uL 1.8 - 7.5 10*3/uL [facility] Ovalocytes LM Ql (Bld) Slight Abnormal (none) [facility] Poikilocytosis LM Ql (Bld) Slight Abnormal (none) [facility] RBC morphology finding Nom (Bld) abnormal [facility] Segmented neutrophils/100 WBC (Bld) 90 % High 38 - 82 % [facility] Variant lymphocytes (Bld) [#/Vol] 0.1 10*3/uL High NINF - 0.0 10*3/uL [facility] Variant lymphocytes/100 WBC (Bld) 1 % High NINF - 0 % [facility] MANUAL DIFFERENTIAL (CELLAVI LUCAS)on 03-19-2025 BAND NEUTROPHILS TOTAL PER COUNTED LEUKOCYTES BY MANUAL COUNT 6 Normal [facility] Comment on above: Performed By: #### Ricardo [id number], [id number] ####Bath Attendant: JAZLYN BRUCE ([phone])[facility])[address] [place] [address] [place] BANDS (10*3/UL) IN BLOOD-CELLAVISION 0.4 10*3/uL High <=0.0 [facility] Comment on above: Performed By: #### L [id number], [id number] ####Bath Attendant: JAZLYN BRUCE ([phone])[facility])[address] [place] [address] [place] BASOPHILS TOTAL PER COUNTED LEUKOCYTES BY MANUAL COUNT Normal [facility] Comment on above: Performed By: #### L [id number], [id number] ####Bath Attendant: JAZLYN BRUCE ([phone])[facility])[address] [place] [address] BLASTS TOTAL PER COUNTED LEUKOCYTES BY MANUAL COUNT Normal [facility] Comment on above: Performed By: #### L [id number], [id number] ####Bath Attendant: JAZLYN BRUCE ([phone])[facility])[address] [place] [address] THOMPSON CELLS PRESENCE IN BLOOD BY LIGHT MICROSCOPY Slight Abnormal (none) [facility] Comment on above: Performed By: #### L [id number], [id number] ####Bath Attendant: JAZLYN BRUCE ([phone])[facility])[address] [place] [address] EOSINOPHILS TOTAL PER COUNTED LEUKOCYTES BY MANUAL COUNT Normal [facility] Comment on above: Performed By: #### L [id number], [id number] ####Bath Attendant: JAZLYN BRUCE ([phone])[facility] [place] [address] [place] LYMPHOCYTE VARIANT/100 LEUKOCYTES IN BLOOD- CELLAVISION 1 % High <=0 [facility] Comment on above: Performed By: #### L [id number], [id number] ####Bath Attendant: JAZLYN BRUCE ([phone])[facility])[address] [place] [address] [place] LYMPHOCYTES (10*3/UL) IN BLOOD-CELLAVISION 0.1 10*3/uL Low 1.0-4.3 [facility] Comment on above: Performed By: #### L [id number], [id number] ####Bath Attendant: JAZLYN BRUCE ([phone])[facility] [place] [address] [place] LYMPHOCYTES TOTAL PER COUNTED LEUKOCYTES BY MANUAL COUNT 1 Normal [facility] Comment on above: Performed By: #### L [id number], [id number] ####Bath Attendant: JAZLYN BRUCE ([phone])[facility])[address] [place] [address] [place] LYMPHOCYTES/100 LEUKOCYTES IN BLOOD-CELLAVISION 1 % Low 15-45 [facility] Comment on above: Performed By: #### L [id number], [id number] ####Bath Attendant: JAZLYN BRUCE ([phone])[facility])[address] [place] [address] [place] METAMYELOCYTES TOTAL PER COUNTED LEUKOCYTES BY MANUAL COUNT Normal [facility] Comment on above: Performed By: #### L [id number], [id number] ####Bath Attendant: JAZLYN BRUCE ([phone])[facility])[address] [place] [address] [place] MONOCYTES (10*3/UL) IN BLOOD-CELLAVISION 0.1 10*3/uL Normal 0.0-0.9 [facility] Comment on above: Performed By: #### L [id number], [id number] ####Bath Attendant: JAZLYN BRUCE ([phone])[facility])[address] [place] [address] [place] MONOCYTES TOTAL PER COUNTED LEUKOCYTES BY MANUAL COUNT 2 Normal [facility] Comment on above: Performed By: #### L [id number], [id number] ####Bath Attendant: JAZLYN BRUCE ([phone])[facility])[address] [place] [address] [place] MONOCYTES/100 LEUKOCYTES IN BLOOD-KATIE 2 % Low 5-13 [facility] Comment on above: Performed By: #### L [id number], [id number] ####Bath Attendant: JAZLYN BRUCE ([phone])[facility])[address] [place] [address] MYELOCYTES COUNTED BY MANUAL COUNT Normal [facility] Comment on above: Performed By: #### L [id number], [id number] ####Bath Attendant: JAZLYN BRUCE ([phone])[facility])[address] [place] [address] NEUTROPHILS BAND FORM/100 LEUKOCYTES IN BLOOD-CELLAVISI 6 % High <=0 [facility] Comment on above: Performed By: #### L [id number], [id number] ####Bath Attendant: JAZLYN BRUCE ([phone])[facility])[address] [place] [address] NEUTROPHILS TOTAL PER COUNTED LEUKOCYTES BY MANUAL COUNT 94 [facility] Comment on above: Performed By: #### L [id number], [id number] ####Bath Attendant: JAZLYN BRUCE ([phone])[facility])[address] [place] [address] [place] OVALOCYTES PRESENCE IN BLOOD BY LIGHT MICROSCOPY Slight Abnormal (none) [facility] Comment on above: Performed By: #### L [id number], [id number] ####Bath Attendant: JAZLYN BRUCE ([phone])[facility])[address] [place] [address] POIKILOCYTOSIS (PRESENCE) IN BLOOD BY LIGHT MICROSCOPY Slight Abnormal (none) [facility] Comment on above: Performed By: #### L [id number], [id number] ####Bath Attendant: JAZLYN BRUCE ([phone])[facility])[address] [place] [address] PROMYELOCYTES TOTAL PER COUNTED LEUKOCYTES BY MANUAL COUNT [facility] Comment on above: Performed By: #### L [id number], [id number] ####Bath Attendant: JAZLYN BRUCE ([phone])[facility])[address] [place] [address] [place] RBC MORPHOLOGY IN BLOOD abnormal Normal [facility] Comment on above: Performed By: #### L [id number], [id number] ####Bath Attendant: JAZLYN BRUCE ([phone])[facility])[address] [place] [address] SEGMENTED NEUTROPHILS (10*3/UL) IN BLOOD-CELLAVISION 6.0 10*3/uL Normal 1.8-7.5 [facility] Comment on above: Performed By: #### L [id number], [id number] ####Bath Attendant: JAZLYN BRUCE ([phone])[facility])[address] [place] [address] SEGMENTED NEUTROPHILS/100 LEUKOCYTES-CE 90 % High 38-82 [facility] Comment on above: Performed By: #### L [id number], [id number] ####Bath Attendant: JAZLYN BRUCE ([phone])[facility])[address] [place] [address] UNCLASSIFIED CELLS TOTAL PER COUNTED LEUKOCYTES BY MANUAL COUNT Normal [facility] Comment on above: Performed By: #### Ricardo [id number], [id number] ####Bath Attendant: JAZLYN BRUCE ([phone])[facility])[address] [place] [address] VARIANT LYMPHOCYTES (10*3/UL) IN BLOOD-CELLAVISION 0.1 10*3/uL High <=0.0 [facility] Comment on above: Performed By: #### L [id number], [id number] ####Bath Attendant: JAZLYN BRUCE ([phone])[facility])[address] [place] [address] VARIANT LYMPHOCYTES TOTAL PER COUNTED LEUKOCYTES BY MANUAL COUNT 1 Normal [facility] Comment on above: Performed By: #### L [id number], [id number] ####Bath Attendant: JAZLYN BRUCE ([phone])[facility])[address] [place] [address] No Panel Informationon 07-16 -2025 Atypical Lymphocytes Manual 1 [facility] Bands Manual [address] [facility] Basophils Manual [facility] Blasts Manual [facility] Eosinophils Manual [facility] Interpretation and review of laboratory results Abnormal [facility] Lymphocytes Manual 1 [facility] Metamyelocytes Manual [facility] Monocytes Manual 2 [facility] Myel[facility] Manual [facility] Neutrophils Manual 94 [facility] Promyelocytes Manual [facility] Unclassified Cells, Manual [facility] Nursing Noteon 03-19-2025 Nursing Note I (EDER ORDONEZ) was called to [...] he is not allowed to leave. Normal [facility] Progress Noteon 03-19-2025 Progress Note PHYSICAL THERAPY [facility] Treatment Note Name/MRN: Francisco Ramos ([id number]) Date of : 1950 Age: 74 y.o. [...] reach, left in bed, gait belt, and keno attendant present Restraints: No Education Gait, transfers, balance [...] 32 Minutes (gait, FA) Olivia Noriega PTA [facility] Progress Note OCCUPATIONAL THERAPY [facility] Treatment Note Name/MRN: Francisco Ramos ([id number]) Date of : 1950 Age: 74 y.o. Room/Bed: 6116/-6116 A Discharge Recommendation: 24 hour supervision or [...] notified, no alarms engaged upon entry, and keno attendant present Restraints: No Education Education Given To: [...] retrieval) 1 FA, 1 Self YASHIRA Durant Normal [facility] [id number] 03-18-2025 [id number] Spoke with TCC regarding pt combative behavior with staff and PT recs for HHC, but will wait to discuss possible home care services with pt/family until closer to al. Route Delivery Manager following case for Discharge Needs. [facility] BASIC METABOLIC PANELon 03-04 Anion gap [Moles/Vol] 7 mmol/L Normal 3-13 [facility] Comment on above: Performed By: #### L [id number] ####Bath Attendant: JAZLYN BRUCE ([phone])[facility])[address] [place] [address] Calcium [Mass/Vol] 8.6 mg/dL Low 8.8-10.0 [facility] Comment on above: Performed By: #### L AB15 ####Bath Attendant: JAZLYN BRUCE ([phone])[facility])[address] [place] [address] Chloride [Moles/Vol] 106 mmol/L Normal 98-107 [facility] Comment on above: Performed By: #### L AB15 ####Bath Attendant: JAZLYN BRUCE ([phone])[facility])[address] [place] [address] CO2 [Moles/Vol] 24 mmol/L Normal 23-31 [facility] Comment on above: Performed By: #### L AB15 ####Bath Attendant: JAZLYN BRUCE ([phone])[facility])[address] [place] [address] Creatinine [Mass/Vol] 0.75 mg/dL Normal 0.72-1.25 [facility] Comment on above: Performed By: #### L AB15 ####Bath Attendant: JAZLYN BRUCE ([phone])[facility])[address] [place] [address] GLOMERULAR FILTRATION RATE ML/MIN/1.73 SQ M.PREDICTED >90.0 Normal >60.0 [facility] Comment on above: Result Comment: Calc ulation based on the Chronic Kidney Disease Epidemiology Collaboration (CKD-EPI) equation refit without adjustment for race Performed By: #### L AB15 ####Bath Attendant: JAZLYN BRUCE ([phone])[facility])[address] [place] [address] Glucose [Mass/Vol] 78 mg/dL Low 82-115 [facility] Comment on above: Performed By: #### L AB15 ####Bath Attendant: JAZLYN BRUCE ([phone])[address] Potassium [Moles/Vol] 3.6 mmol/L Normal 3.5-5.1 [facility] Comment on above: Result Comment: [facility] potassium values may be up to 0.5 mmol/L lower than serum values. Performed By: #### L AB15 ####Bath Attendant: JAZLYN BRUCE ([phone])[facility])[address] [place] [address] Sodium [Moles/Vol] 137 mmol/L Normal 136-145 [facility] Comment on above: Performed By: #### L AB15 ####Bath Attendant: JAZLYN BRUCE ([phone])[facility])[address] [place] [address] Urea nitrogen [Mass/Vol] 9 mg/dL Normal 9-23 [facility] Comment on above: Performed By: #### L AB15 ####Bath Attendant: JAZLYN BRUCE ([phone])[facility])[address] [place] [address] Basic metabolic 1998 panelon 03-18-2025 Anion gap [Moles/Vol] 7 mmol/L 3 - 13 mmol/L [facility] Calcium [Mass/Vol] 8.6 mg/dL Low 8.8 - 10. 0 mg/dL [facility] Chloride [Moles/Vol] 106 mmol/L 98 - 10 7 mmol/L [facility] [employer] CO2 [Moles/Vol] 24 mmol/L 23 - 31 mmol/L [facility] Creatinine [Mass/Vol] 0.75 mg/dL 0.72 - 1.25 mg/dL [facility] GFR/1.73 sq M.predicted (S/P/Bld) [Vol rate/Area] - PINF [facility] Comment on above: Calculation based on the Chronic Kidney Disease Epidemiology Collaboration (CKD-EPI) equation refit without adjustment for race Glucose [Mass/Vol] 78 mg/dL Low 82 - 115 mg/dL [facility] Interpretation and review of laboratory results Abnormal [facility] Potassium [Moles/Vol] 3.6 mmol/L 3.5 - 5.1 mmol/L [facility] Comment on above: Plasma potassium sia ues may be up to 0.5 mmol/L lower than serum values. Sodium [Moles/Vol] 137 mmol/L 136 - 145 mmol/L [facility] Urea nitrogen [Mass/Vol] 9 mg/dL 9 - 23 mg/d L [facility] CBC W Auto Differential pane l (Bld)on 03-18-2025 Basophils (Bld) [#/Vol] 0 10*3/uL 0.0 - 0.2 10*3/uL [facility] Basophils/100 WBC (Bld) 0 % 0.0 - 2.0 % [facility] Eosinophils (Bld) [#/Vol] 0 10*3/uL 0.0 - 0.5 10*3/uL [facility] Eosinophils/100 WBC (Bld) 0 % 0.0 - 6.0 % [facility] Erythrocyte distribution width (RBC) [Ratio] 12.8 % 11.5 - 15.0 % [facility] Hematocrit (Bld) [Volume fraction] 40.2 % 40.0 - 52.0 % [facility] Hemoglobin (Bld) [Mass/Vol] 13.9 g/dL 13.0 - 18.0 g/dL [facility] Immature granulocytes (Bld) [#/Vol] 0 10*3/uL NINF - 0.1 10*3/uL [facility] Immature granulocytes/100 WBC (Bld) 0.4 % 0.0 - 2.0 % [facility] [employer] Interpretation and review of laboratory results Abnormal [facility] [employer] IPF 4 [facility] [employer] Lymphocytes (Bld) [#/Vol] 1 10*3/uL 1.0 - 4.3 10*3/uL [facility] [employer] Lymphocytes/100 WBC (Bld) 21 % 15.0 - 45.0 % [facility] [employer] MCH (RBC) [Entitic mass] 30.8 pg 26. 0 - 34.[address] [facility] MCHC (RBC) [Mass/Vol] 34.6 % 30.5 - 36.0 % [facility] [employer] MCV (RBC) [Entitic vol] 88.9 fL 77.0 - 99.0 fL [facility] [employer] Monocytes (Bld) [#/Vol] 0.5 10*3/uL 0.0 - 0.9 10*3/uL [facility] [employer] Monocytes/100 WBC (Bld) 10 % 5.0 - 13.0 % [facility] [employer] Neutrophils (Bld) [#/Vol] 3.2 10*3/uL 1.8 - 7.5 10*3/uL [facility] Neutrophils/100 WBC (Bld) 68.6 % 38.0 - 82.0 % [facility] [employer] Nucleated RBC/100 WBC (Bld) [Ratio] 0 % [facility] [employer] Platelet mean volume (Bld) [Entitic vol] 10.7 fL 9.0 - 12.7 fL [facility] [employer] Platelets (Bld) [#/Vol] 127 10*3/uL Low 140 - 440 10*3/uL [facility] RBC (Bld) [#/Vol] 4.52 10*6/uL 4.40 - 5.9 0 10*6/uL [facility] WBC (Bld) [#/Vol] 4.6 10*3/uL 3.6 - 10.7 10*3/uL [facility] CBC WITH AUTO DIFFERENTIALon 03-18-2025 Basophils (Bld) [#/Vol] 0.0 10*3/uL Normal 0.0-0.2 [facility] Comment on above: Performed By: #### L [id number] ####Bath Attendant: JAZLYN BRUCE ([phone])[facility] ([address] Basophils/100 WBC (Bld) 0.0 % Normal 0.0-2.0 [facility] Comment on above: Performed By: #### L [id number] ####Bath Attendant: JAZLYN BRUCE ([phone])[facility])[address] [place] [address] Eosinophils (Bld) [#/Vol] 0.0 10*3/uL Normal 0.0-0.5 [facility] Comment on above: Performed By: #### L [id number] ####Bath Attendant: JAZLYN BRUCE ([phone])[facility])[address] [place] [address] Eosinophils/100 WBC (Bld) 0.0 % Normal 0.0-6.0 [facility] Comment on above: Performed By: #### L [id number] ####Bath Attendant: JAZLYN BRUCE ([phone])[facility])[address] [place] [address] Erythrocyte distribution width (RBC) [Ratio] 12.8 % Normal 11.5-15.0 [facility] Comment on above: Performed By: #### L [id number] ####Bath Attendant: JAZLYN BRUCE ([phone])[facility])[address] [place] [address] Hematocrit (Bld) [Volume fraction] 40.2 % Normal 40.0-52.0 [facility] Comment on above: Performed By: #### L [id number] ####Bath Attendant: JAZLYN BRUCE ([phone])[facility])[address] [place] [address] Hemoglobin (Bld) [Mass/Vol] 13.9 g/dL Normal 13.0-18.0 [facility] Comment on above: Performed By: #### L [id number] ####Bath Attendant: JAZLYN BRUCE ([phone])[facility])[address] [place] [address] IMMATURE GRANS % 0.4 % Normal 0.0-2.0 [facility] Comment on above: Performed By: #### L [id number] ####Bath Attendant: JAZLYN BRUCE ([phone])[facility])[address] [place] [address] IMMATURE GRANS ABSOLUTE 0.0 10*3/uL Normal <0.1 [facility] Comment on above: Performed By: #### L [id number] ####Bath Attendant: JAZLYN BRUCE ([phone])[facility])[address] [place] [address] [facility] Comment on above: Performed By: #### L [id number] ####Bath Attendant: JAZLYN BRUEC ([phone])[facility])[address] [place] [address] Lymphocytes (Bld) [#/Vol] 1.0 10*3/uL Normal 1.0-4.3 [facility] Comment on above: Performed By: #### L [id number] ####Bath Attendant: JAZLYN BRUCE ([phone])[address] Lymphocytes/100 WBC (Bld) 21.0 % Normal 15.0-45.0 [facility] Comment on above: Performed By: #### L [id number] ####Bath Attendant: JAZLYN BRUCE ([phone])[facility])[address] [place] [address] MCH (RBC) [Entitic mass] 30.8 pg Normal 26.0-34.0 [facility] Comment on above: Performed By: #### L [id number] ####Bath Attendant: JAZLYN BRUCE ([phone])[address] MCHC 34.6 % Normal 30.5-36.0 [facility] Comment on above: Performed By: #### L [id number] ####Bath Attendant: JAZLYN BRUCE ([phone])[facility])[address] [place] [address] MCV (RBC) [Entitic vol] 88.9 fL Normal 77.0-99.0 [facility] Comment on above: Performed By: #### L [id number] ####Bath Attendant: JAZLYN BRUCE ([phone])[facility])[address] [place] [address] Monocytes (Bld) [#/Vol] 0.5 10*3/uL Normal 0.0-0.9 [facility] Comment on above: Performed By: #### L [id number] ####Bath Attendant: JAZLYN BRUCE ([phone])[facility])[address] [place] [address] Monocytes/100 WBC (Bld) 10.0 % Normal 5.0-13.0 [facility] Comment on above: Performed By: #### L [id number] ####Bath Attendant: JAZLYN BRUCE ([phone])[facility])[address] [place] [address] NEUTROPHILS ABSOLUTE 3.2 10*3/uL Normal 1.8-7.5 [facility] Comment on above: Performed By: #### L [id number] ####Bath Attendant: JAZLYN BRUCE ([phone])[facility])[address] [place] [address] Neutrophils/100 WBC (Bld) 68.6 % Normal 38.0-82.0 [facility] Comment on above: Performed By: #### L [id number] ####Bath Attendant: JAZLYN BRUCE ([phone])[facility])[address] [place] [address] [place] NRBC 0.0 /100 WBCs Normal 0.0-2.0 [facility] Comment on above: Performed By: #### L [id number] ####Bath Attendant: JAZLYN BRUCE ([phone])[facility])[address] [place] [address] Platelet mean volume (Bld) [Entitic vol] 10.7 fL Normal 9.0-12.7 [facility] Comment on above: Performed By: #### L [id number] ####Bath Attendant: JAZLYN BRUCE ([phone])[facility])[address] [place] [address] Platelets (Bld) [#/Vol] 127 10*3/uL Low 140-440 [facility] Comment on above: Performed By: #### L [id number] ####Bath Attendant: JAZLYN BRUCE ([phone])[facility])[address] [place] [address] RBC (Bld) [#/Vol] 4.52 10*6/uL Normal 4.40-5.90 [facility] Comment on above: Performed By: #### L [id number] ####Bath Attendant: JAZLYN BRUCE ([phone])[facility])[address] [place] [address] WBC (Bld) [#/Vol] 4.6 10*3/uL Normal 3.6-10.7 [facility] Comment on above: Performed By: #### L [id number] ####Bath Attendant: JAZLYN BRUCE ([phone])[facility])[address] [place] [address] Nursing Noteon 03-18-2025 Nursing Note Report called to [facility] Nursing Note Called and updated pt at this time [facility] Nursing Note Verified with patients that pt. Had jello and lemon ice yesterday for lunch. [facility] Op Noteon 03-18-2025 Op Note Date: 03/18/2025 Location: [facility] OR Name: Francisco Ramos, : 1950, Diagnosis [...] Tissue TISSUE EXAM Bronson Jarrett MD 03/18/25 1823 Routine Description: SIGMOID COLON Staff: Glass Selector: Joseph Ibarra RN; Nika Schuster RN Relief Glass Selector: Gini Awan RN; Cecilia Tinajero Relief Scrub: [...] (two hours if receiving Vancomycin or flouroquinolone) [facility] Op Note OPERATIVE NOTE PATIENT NAME: Francisco Ramos : 1950 ATTENDING PHYSICIAN: Bronson Jarrett MD PROCEDURE DATE: 03/18/2025 PREOPERATIVE DIAGNOSIS: Sigmoid volvulus POSTOPERATIVE DIAGNOSIS: Same SURGEON: Bronson Jarrett MD PATTERN PUNCHER: Yasmin Barry OPERATION: Laparoscopic sigmoid colectomy ANESTHESIA: [...] was opened up. We then created our [place] rectal anastomosis. We had to complete anastomotic [...] to the PACU in stable condition. Normal [facility] Progress Noteon 03-18-2025 Progress Note Nutrition rescreen completed. Patient is NPO/Clear liquid >3 days. Refer to Dietitian. Normal [facility] BASIC METABOLIC PANELon 03-04 Anion gap [Moles/Vol] 8 mmol/L Normal 3-13 [facility] Comment on above: Performed By: #### L [id number] ####Bath Attendant: JAZLYN BRUCE ([phone])[facility])[address] [place] [address] Calcium [Mass/Vol] 8.8 mg/dL Normal 8.8-10.0 [facility] Comment on above: Performed By: #### L [id number] ####Bath Attendant: JAZLYN BRUCE ([phone])[facility] [place] [address] Chloride [Moles/Vol] 107 mmol/L Normal 98-107 [facility] Comment on above: Performed By: #### L [id number] ####Bath Attendant: JAZLYN BRUCE ([phone])[facility])[address] [place] [address] CO2 [Moles/Vol] 22 mmol/L Low 23-31 [facility] Comment on above: Performed By: #### L [id number] ####Bath Attendant: JAZLYN BRUCE ([phone])[facility])[address] [place] [address] Creatinine [Mass/Vol] 0.76 mg/dL Normal 0.72-1.25 [facility] Comment on above: Performed By: #### L [id number] ####Bath Attendant: JAZLYN BRUCE ([phone])[facility])[address] [place] [address] GLOMERULAR FILTRATION RATE ML/MIN/1.73 SQ M.PREDICTED >90.0 Normal >60.0 [facility] Comment on above: Result Comment: Calc ulation based on the Chronic Kidney Disease Epidemiology Collaboration (CKD-EPI) equation refit without adjustment for race Performed By: #### L [id number] ####Bath Attendant: JAZLYN BRUCE ([phone])[facility] [place] [address] Glucose [Mass/Vol] 87 mg/dL Normal 82-115 [facility] Comment on above: Performed By: #### L [id number] ####Bath Attendant: JAZLYN BRUCE ([phone])[facility] [place] [address] Potassium [Moles/Vol] 3.8 mmol/L Normal 3.5-5.1 [facility] Comment on above: Result Comment: [facility] potassium values may be up to 0.5 mmol/L lower than serum values. Performed By: #### L AB15 ####Bath Attendant: JAZLYN BRUCE ([phone])[facility] [place] [address] Sodium [Moles/Vol] 137 mmol/L Normal 136-145 [facility] Comment on above: Performed By: #### L [id number] ####Bath Attendant: JAZLYN BRUCE ([phone])[facility])[address] [place] [address] Urea nitrogen [Mass/Vol] 13 mg/dL Normal 9-23 [facility] Comment on above: Performed By: #### L [id number] ####Bath Attendant: JAZLYN BRUCE ([phone])[facility])[address] [place] [address] Basic metabolic 1998 panelon 03-17-2025 Anion gap [Moles/Vol] 8 mmol/L 3 - 13 mmol/L [facility] Calcium [Mass/Vol] 8.8 mg/dL 8.8 - 10. 0 mg/dL [facility] Chloride [Moles/Vol] 107 mmol/L 98 - 10 7 mmol/L [facility] CO2 [Moles/Vol] 22 mmol/L Low 23 - 31 mmol/L [facility] Creatinine [Mass/Vol] 0.76 mg/dL 0.72 - 1.25 mg/dL [facility] GFR/1.73 sq M.predicted (S/P/Bld) [Vol rate/Area] - PINF [facility] Comment on above: Calculation based on the Chronic Kidney Disease Epidemiology Collaboration (CKD-EPI) equation refit without adjustment for race Glucose [Mass/Vol] 87 mg/dL 82 - 115 mg/dL [facility] Interpretation and review of laboratory results Abnormal [facility] Potassium [Moles/Vol] 3.8 mmol/L 3.5 - 5.1 mmol/L [facility] Comment on above: Plasma potassium sia ues may be up to 0.5 mmol/L lower than serum values. Sodium [Moles/Vol] 137 mmol/L 136 - 145 mmol/L [facility] Urea nitrogen [Mass/Vol] 13 mg/dL 9 - 23 mg/d L [facility] CBC W Auto Differential pane l (Bld)on 03-17-2025 Basophils (Bld) [#/Vol] 0 10*3/uL 0.0 - 0.2 10*3/uL [facility] Basophils/100 WBC (Bld) 0.2 % 0.0 - 2.0 % [facility] Eosinophils (Bld) [#/Vol] 0 10*3/uL 0.0 - 0.5 10*3/uL [facility] Eosinophils/100 WBC (Bld) 0 % 0.0 - 6.0 % [facility] Erythrocyte distribution width (RBC) [Ratio] 12.8 % 11.5 - 15.0 % [facility] Hematocrit (Bld) [Volume fraction] 42.1 % 40.0 - 52.0 % [facility] Hemoglobin (Bld) [Mass/Vol] 14.3 g/dL 13.0 - 18.0 g/dL [facility] Immature granulocytes (Bld) [#/Vol] 0 10*3/uL NINF - 0.1 10*3/uL [facility] Immature granulocytes/100 WBC (Bld) 0.2 % 0.0 - 2.0 % [facility] Interpretation and review of laboratory results Abnormal [facility] IPF 4 [facility] Lymphocytes (Bld) [#/Vol] 0.7 10*3/uL Low 1.0 - 4.3 10*3/uL [facility] Lymphocytes/100 WBC (Bld) 12.7 % Low 15.0 - 45.0 % [facility] MCH (RBC) [Entitic mass] 31 pg 26. 0 - 34.[address] [facility] MCHC (RBC) [Mass/Vol] 34 % 30.5 - 36.0 % [facility] MCV (RBC) [Entitic vol] 91.3 fL 77.0 - 99.[address] [facility] Monocytes (Bld) [#/Vol] 0.7 10*3/uL 0.0 - 0.9 10*3/uL [facility] Monocytes/100 WBC (Bld) 13 % 5.0 - 13.0 % [facility] Neutrophils (Bld) [#/Vol] 4.1 10*3/uL 1.8 - 7.5 10*3/uL [facility] Neutrophils/100 WBC (Bld) 73.9 % 38.0 - 82.0 % [facility] Nucleated RBC/100 WBC (Bld) [Ratio] 0 % [facility] Platelet mean volume (Bld) [Entitic vol] 10.8 fL 9.0 - 12.[address] [facility] Platelets (Bld) [#/Vol] 105 10*3/uL Low 140 - 440 10*3/uL [facility] RBC (Bld) [#/Vol] 4.61 10*6/uL 4.40 - 5.9 0 10*6/uL [facility] WBC (Bld) [#/Vol] 5.5 10*3/uL 3.6 - 10.7 10*3/uL [facility] CBC WITH AUTO DIFFERENTIALon 03-17-2025 Basophils (Bld) [#/Vol] 0.0 10*3/uL Normal 0.0-0.2 [facility] Comment on above: Performed By: #### L [id number] ####Bath Attendant: JAZLYN BRUCE ([phone])[address] Basophils/100 WBC (Bld) 0.2 % Normal 0.0-2.0 [facility] Comment on above: Performed By: #### L [id number] ####Bath Attendant: JAZLYN BRUCE ([phone])[facility])[address] [place] [address] Eosinophils (Bld) [#/Vol] 0.0 10*3/uL Normal 0.0-0.5 [facility] Comment on above: Performed By: #### L [id number] ####Bath Attendant: JAZLYN BRUCE ([phone])[address] Eosinophils/100 WBC (Bld) 0.0 % Normal 0.0-6.0 [facility] Comment on above: Performed By: #### L [id number] ####Bath Attendant: JAZLYN BRUCE ([phone])[address] Erythrocyte distribution width (RBC) [Ratio] 12.8 % Normal 11.5-15.0 [facility] Comment on above: Performed By: #### L [id number] ####Bath Attendant: JAZLYN BRUCE ([phone])[address] Hematocrit (Bld) [Volume fraction] 42.1 % Normal 40.0-52.0 [facility] Comment on above: Performed By: #### L [id number] ####Bath Attendant: JAZLYN BRUCE ([phone])[address] Hemoglobin (Bld) [Mass/Vol] 14.3 g/dL Normal 13.0-18.0 [facility] Comment on above: Performed By: #### L [id number] ####Bath Attendant: JAZLYN BRUCE ([phone])[address] IMMATURE GRANS % 0.2 % Normal 0.0-2.0 [facility] Comment on above: Performed By: #### L [id number] ####Bath Attendant: JAZLYN BRUCE ([phone])[address] IMMATURE GRANS ABSOLUTE 0.0 10*3/uL Normal <0.1 [facility] Comment on above: Performed By: #### L [id number] ####Bath Attendant: JAZLYN BRUCE ([phone])[facility])[address] [place] [address] [facility] Comment on above: Performed By: #### L [id number] ####Bath Attendant: JAZLYN BRUCE ([phone])[facility])[address] [place] [address] Lymphocytes (Bld) [#/Vol] 0.7 10*3/uL Low 1.0-4.3 [facility] Comment on above: Performed By: #### L [id number] ####Bath Attendant: JAZLYN BRUCE ([phone])[address] Lymphocytes/100 WBC (Bld) 12.7 % Low 15.0-45.0 [facility] Comment on above: Performed By: #### L [id number] ####Bath Attendant: JAZLYN BRUCE ([phone])[address] MCH (RBC) [Entitic mass] 31.0 pg Normal 26.0-34.0 [facility] Comment on above: Performed By: #### L [id number] ####Bath Attendant: JAZLYN BRUCE ([phone])[address] MCHC 34.0 % Normal 30.5-36.0 [facility] Comment on above: Performed By: #### L [id number] ####Bath Attendant: JAZLYN BRUCE ([phone])[address] MCV (RBC) [Entitic vol] 91.3 fL Normal 77.0-99.0 S [facility] Comment on above: Performed By: #### L [id number] ####Bath Attendant: JAZLYN BRUCE ([phone])[facility] [place] [address] Monocytes (Bld) [#/Vol] 0.7 10*3/uL Normal 0.0-0.9 [facility] Comment on above: Performed By: #### L [id number] ####Bath Attendant: JAZLYN BRUCE ([phone])[facility] [place] [address] Monocytes/100 WBC (Bld) 13.0 % Normal 5.0-13.0 [facility] Comment on above: Performed By: #### L [id number] ####Bath Attendant: JAZLYN BRUCE ([phone])[facility] [place] [address] NEUTROPHILS ABSOLUTE 4.1 10*3/uL Normal 1.8-7.5 [facility] Comment on above: Performed By: #### L [id number] ####Bath Attendant: JAZLYN BRUCE ([phone])[facility] [place] [address] Neutrophils/100 WBC (Bld) 73.9 % Normal 38.0-82.0 [facility] Comment on above: Performed By: #### L [id number] ####Bath Attendant: JAZLYN BRUCE ([phone])[facility] [place] [address] NRBC 0.0 /100 WBCs Normal 0.0-2.0 [facility] Comment on above: Performed By: #### L [id number] ####Bath Attendant: JAZLYN BRUCE ([phone])[facility] [place] [address] Platelet mean volume (Bld) [Entitic vol] 10.8 fL Normal 9.0-12.7 [facility] Comment on above: Performed By: #### L [id number] ####Bath Attendant: JAZLYN BRUCE ([phone])[facility] [place] [address] Platelets (Bld) [#/Vol] 105 10*3/uL Low 140-440 [facility] Comment on above: Performed By: #### L [id number] ####Bath Attendant: JAZLYN BRUCE ([phone])[facility])[address] [place] [address] RBC (Bld) [#/Vol] 4.61 10*6/uL Normal 4.40-5.90 [facility] Comment on above: Performed By: #### L [id number] ####Bath Attendant: JAZLYN BRUCE ([phone])[facility] [place] [address] WBC (Bld) [#/Vol] 5.5 10*3/uL Normal 3.6-10.7 [facility] Comment on above: Performed By: #### L [id number] ####Bath Attendant: JAZLYN BRUCE ([phone])[facility] [place] [address] Laboratory - Coagulationon 0 03-17-2025 aPTT Coag (PPP) [Time] 32.5 s High 20.0 - 30.[address] [facility] INR Coag (PPP) [Relative time] 1.1 {INR} 0.9 - 1.1 [facility] Comment on above: Recommended Anticoag ulant [...] [Time] 11.2 s 9.0 - 12.0 s [facility] No Panel Informationon 03-17 Interpretation and review of laboratory results Abnormal [facility] PROTIME AND APTTon aPTT Coag (Bld) [Time] 32.5 s High 20.0-30.5 [facility] Comment on above: Performed By: #### L [id number] ####Bath Attendant: JAZLYN BRUCE ([phone])[facility])[address] [place] [address] INR Coag (PPP) [Relative time] 1.1 {INR} Normal 0.9-1.1 [facility] Comment on above: Result Comment: Jean-Paul [...] prevent Myocardial Infarction Performed By: #### L [id number] ####Bath Attendant: JAZLYN BRUCE ([phone])[facility])[address] [place] [address] PT Coag (PPP) [Time] 11.2 s Normal 9.0-12.0 [facility] Comment on above: Performed By: #### L [id number] ####Bath Attendant: JAZLYN BRUCE ([phone])[address] XR ABDOMEN 1 VIEWon 03-17-20 25 XR ABDOMEN 1 VIEW [facility] 1950 [id number] Ex[facility] Date/Time: 03/17/2025 07:28 Procedure: XR ABDOMEN [...] Electronically Signed Date/Time: 03/17/2025 8:00 AM EDT [facility] XR Abdomen Single viewon Rectal tube has been advanced probably within tortuous sigmoid colon. No gaseous distention of bowel loops Report Dictated on Electronically Signed By: Leo Dee MD Electronically Signed Date/Time: 03/17/2025 8:00 AM EDT [facility] Patient Name: FRANCISCO RAMOS : 1950 Exam [...] been prior vertebroplasty at the L1 level. [facility] Leo Dee MD - 03/17/2025 Patient [...] Electronically Signed Date/Time: 03/17/2025 8:00 AM EDT [facility] [employer] Radiology [facility]narrative[facility] Single viewOrdere d By: Leo Dee on 03-17-2025 [employer] Work Phone: Bilirubin Test strip Ql (U)O rdered By: Brijesh Frederick on 03-16-2025 Bilirubin Ql (U) Negative Negative [facility] CBC W Auto Differential pane l (Bld)on 03-16-2025 Basophils (Bld) [#/Vol] 0 10*3/uL 0.0 - 0.2 10*3/uL [employer] Basophils/100 WBC (Bld) 0 % 0.0 - 2.0 % [facility] [employer] Eosinophils (Bld) [#/Vol] 0 10*3/uL 0.0 - 0.5 10*3/uL [employer] Eosinophils/100 WBC (Bld) 0 % 0.0 - 6.0 % [employer] Erythrocyte distribution width (RBC) [Ratio] 13 % 11.5 - 15.0 % [employer] Hematocrit (Bld) [Volume fraction] 38.8 % Low 40.0 - 52.0 % [employer] Hemoglobin (Bld) [Mass/Vol] 12.9 g/dL Low 13.0 - 18.0 g/dL [facility] [employer] Immature granulocytes (Bld) [#/Vol] 0 10*3/uL NINF - 0.1 10*3/uL [employer] Immature granulocytes/100 WBC (Bld) 0.3 % 0.0 - 2.0 % [facility] [employer] Interpretation and review of laboratory results Abnormal [employer] IPF 4 [facility] [employer] Lymphocytes (Bld) [#/Vol] 0.8 10*3/uL Low 1.0 - 4.3 10*3/uL [employer] Lymphocytes/100 WBC (Bld) 13.6 % Low 15.0 - 45.0 % [employer] MCH (RBC) [Entitic mass] 30.6 pg 26. 0 - 34.0 pg [facility] [employer] MCHC (RBC) [Mass/Vol] 33.2 % 30.5 - 36.0 % [facility] MCV (RBC) [Entitic vol] 92.2 fL 77.0 - 99.[address] [facility] Monocytes (Bld) [#/Vol] 0.6 10*3/uL 0.0 - 0.9 10*3/uL [facility] Monocytes/100 WBC (Bld) 10.5 % 5.0 - 13.0 % [facility] Neutrophils (Bld) [#/Vol] 4.5 10*3/uL 1.8 - 7.5 10*3/uL [facility] Neutrophils/100 WBC (Bld) 75.6 % 38.0 - 82.0 % [facility] Nucleated RBC/100 WBC (Bld) [Ratio] 0 % [facility] Platelet mean volume (Bld) [Entitic vol] 10.8 fL 9.0 - 12.[address] [facility] Platelets (Bld) [#/Vol] 126 10*3/uL Low 140 - 440 10*3/uL [facility] RBC (Bld) [#/Vol] 4.21 10*6/uL Low 4.40 - 5.9 0 10*6/uL [facility] WBC (Bld) [#/Vol] 6 10*3/uL 3.6 - 10.7 10*3/uL [facility] CBC WITH AUTO DIFFERENTIALon 03-16-2025 Basophils (Bld) [#/Vol] 0.0 10*3/uL Normal 0.0-0.2 [facility] Comment on above: Performed By: #### L [id number] ####Bath Attendant: JAZLYN BRUCE ([phone])[address] Basophils/100 WBC (Bld) 0.0 % Normal 0.0-2.0 S [facility] Comment on above: Performed By: #### L [id number] ####Bath Attendant: JAZLYN BRUCE ([phone])[facility])[address] [place] [address] Eosinophils (Bld) [#/Vol] 0.0 10*3/uL Normal 0.0-0.5 [facility] Comment on above: Performed By: #### L [id number] ####Bath Attendant: JAZLYN BRUCE ([phone])[facility])[address] [place] [address] Eosinophils/100 WBC (Bld) 0.0 % Normal 0.0-6.0 [facility] Comment on above: Performed By: #### L [id number] ####Bath Attendant: JAZLYN BRUCE ([phone])[facility])[address] [place] [address] Erythrocyte distribution width (RBC) [Ratio] 13.0 % Normal 11.5-15.0 [facility] Comment on above: Performed By: #### L [id number] ####Bath Attendant: JAZLYN BRUCE ([phone])[address] Hematocrit (Bld) [Volume fraction] 38.8 % Low 40.0-52.0 [facility] Comment on above: Performed By: #### L [id number] ####Bath Attendant: JAZLYN BRUCE ([phone])[address] Hemoglobin (Bld) [Mass/Vol] 12.9 g/dL Low 13.0-18.0 [facility] Comment on above: Performed By: #### L [id number] ####Bath Attendant: JAZLYN BRUCE ([phone])[address] IMMATURE GRANS % 0.3 % Normal 0.0-2.0 [facility] Comment on above: Performed By: #### L [id number] ####Bath Attendant: JAZLYN BRUCE ([phone])[address] IMMATURE GRANS ABSOLUTE 0.0 10*3/uL Normal <0.1 [facility] Comment on above: Performed By: #### L [id number] ####Bath Attendant: JAZLYN [id number])[facility])[address] [place] [address] [place] IPF 4 Normal [facility] Comment on above: Performed By: #### L [id number] ####Bath Attendant: JAZLYN BRUCE ([phone])[facility])[address] [place] [address] Lymphocytes (Bld) [#/Vol] 0.8 10*3/uL Low 1.0-4.3 [facility] Comment on above: Performed By: #### L [id number] ####Bath Attendant: JAZLYN BRUCE ([phone])[facility])[address] [place] [address] Lymphocytes/100 WBC (Bld) 13.6 % Low 15.0-45.0 [facility] Comment on above: Performed By: #### L [id number] ####Bath Attendant: JAZLYN BRUCE ([phone])[facility])[address] [place] [address] MCH (RBC) [Entitic mass] 30.6 pg Normal 26.0-34.0 [facility] Comment on above: Performed By: #### L [id number] ####Bath Attendant: JAZLYN BRUCE ([phone])[facility])[address] [place] [address] MCHC 33.2 % Normal 30.5-36.0 [facility] Comment on above: Performed By: #### L [id number] ####Bath Attendant: JAZLYN BRUCE ([phone])[facility])[address] [place] [address] MCV (RBC) [Entitic vol] 92.2 fL Normal 77.0-99.0 [facility] Comment on above: Performed By: #### L [id number] ####Bath Attendant: JAZLYN BRUCE ([phone])[facility])[address] [place] [address] Monocytes (Bld) [#/Vol] 0.6 10*3/uL Normal 0.0-0.9 [facility] Comment on above: Performed By: #### L [id number] ####Bath Attendant: JAZLYN BRUCE ([phone])[facility] [place] [address] Monocytes/100 WBC (Bld) 10.5 % Normal 5.0-13.0 [facility] Comment on above: Performed By: #### L [id number] ####Bath Attendant: JAZLYN BRUCE ([phone])[facility] [place] [address] NEUTROPHILS ABSOLUTE 4.5 10*3/uL Normal 1.8-7.5 [facility] Comment on above: Performed By: #### L [id number] ####Bath Attendant: JAZLYN BRUCE ([phone])[facility] [place] [address] Neutrophils/100 WBC (Bld) 75.6 % Normal 38.0-82.0 [facility] Comment on above: Performed By: #### L [id number] ####Bath Attendant: JAZLYN BRUCE ([phone])[facility] [place] [address] NRBC 0.0 /100 WBCs Normal 0.0-2.0 [facility] Comment on above: Performed By: #### L [id number] ####Bath Attendant: JAZLYN BRUCE ([phone])[facility] [place] [address] Platelet mean volume (Bld) [Entitic vol] 10.8 fL Normal 9.0-12.7 [facility] Comment on above: Performed By: #### L [id number] ####Bath Attendant: JAZLYN BRUCE ([phone])[facility] [place] [address] Platelets (Bld) [#/Vol] 126 10*3/uL Low 140-440 [facility] Comment on above: Performed By: #### L [id number] ####Bath Attendant: JAZLYN BRUCE ([phone])[facility] [place] [address] RBC (Bld) [#/Vol] 4.21 10*6/uL Low 4.40-5.90 [facility] Comment on above: Performed By: #### L [id number] ####Bath Attendant: JAZLYN BRUCE ([phone])[facility] [place] [address] WBC (Bld) [#/Vol] 6.0 10*3/uL Normal 3.6-10.7 [facility] Comment on above: Performed By: #### L [id number] ####Bath Attendant: JAZLYN BRUCE ([phone])[facility] [place] [address] COMPREHENSIVE METABOLIC PANE Ken 03-16-2025 Albumin [Mass/Vol] 3.5 g/dL Normal 3.4-4.8 [facility] Comment on above: Performed By: #### L AB17, LAB99 ####Bath Attendant: JAZLYN BRUCE ([phone])[facility])[address] [place] [address] ALP [Catalytic activity/Vol] 67 U/L Normal 40-150 [facility] Comment on above: Performed By: #### L AB17, LAB99 ####Bath Attendant: JAZLYN BRUCE ([phone])[facility])[address] [place] [address] ALT [Catalytic activity/Vol] 23 U/L Normal <40 [facility] Comment on above: Performed By: #### L AB17, LAB99 ####Bath Attendant: JAZLYN BRUCE ([phone])[facility])[address] [place] [address] Anion gap [Moles/Vol] 4 mmol/L Normal 3-13 [facility] Comment on above: Performed By: #### L AB17, LAB99 ####Bath Attendant: JAZLYN BRUCE ([phone])[facility])[address] [place] [address] AST [Catalytic activity/Vol] 26 U/L Normal <34 [facility] Comment on above: Performed By: #### L AB17, LAB99 ####Bath Attendant: JAZLYN BRUCE ([phone])[facility])[address] [place] [address] Bilirubin [Mass/Vol] 0.5 mg/dL Normal <1.2 [facility] Comment on above: Performed By: #### L AB17, LAB99 ####Bath Attendant: JAZLYN BRUCE ([phone])[facility])[address] [place] [address] Calcium [Mass/Vol] 8.5 mg/dL Low 8.8-10.0 [facility] Comment on above: Performed By: #### L AB17, LAB99 ####Bath Attendant: JAZLYN BRUCE ([phone])[facility])[address] [place] [address] [place] Chloride [Moles/Vol] 110 mmol/L High 98-107 [facility] Comment on above: Performed By: #### L AB17, LAB99 ####Bath Attendant: JAZLYN BRUCE ([phone])[facility])[address] [place] [address] [place] CO2 [Moles/Vol] 23 mmol/L Normal 23-31 [facility] Comment on above: Performed By: #### L AB17, LAB99 ####Bath Attendant: JAZLYN BRUCE ([phone])[facility])[address] [place] [address] [place] Creatinine [Mass/Vol] 0.78 mg/dL Normal 0.72-1.25 [facility] Comment on above: Performed By: #### L AB17, LAB99 ####Bath Attendant: JAZLYN BRUCE ([phone])[facility])[address] [place] [address] [place] GLOMERULAR FILTRATION RATE ML/MIN/1.73 SQ M.PREDICTED >90.0 Normal >60.0 [facility] Comment on above: Result Comment: Calc ulation based on the Chronic Kidney Disease Epidemiology Collaboration (CKD-EPI) equation refit without adjustment for race Performed By: #### L AB17, LAB99 ####Bath Attendant: JAZLYN BRUCE ([phone])[facility])[address] [place] [address] Glucose [Mass/Vol] 100 mg/dL Normal 82-115 [facility] Comment on above: Performed By: #### L AB17, LAB99 ####Bath Attendant: JAZLYN BRUCE ([phone])[facility])[address] [place] [address] Potassium [Moles/Vol] 3.8 mmol/L Normal 3.5-5.1 [facility] Comment on above: Result Comment: [facility] potassium values may be up to 0.5 mmol/L lower than serum values. Performed By: #### Ricardo TOVAR17, LAB99 ####Bath Attendant: JAZLYN BRUCE ([phone])[facility])[address] [place] [address] Protein [Mass/Vol] 6.5 g/dL Normal 6.4-8.3 [facility] Comment on above: Performed By: #### Ricardo TOVAR17, LAB99 ####Bath Attendant: JAZLYN BRUCE ([phone])[facility])[address] [place] [address] [place] Sodium [Moles/Vol] 137 mmol/L Normal 136-145 [facility] Comment on above: Performed By: #### L AB17, LAB99 ####Bath Attendant: JAZLYN BRUCE ([phone])[facility])[address] [place] [address] Urea nitrogen [Mass/Vol] 18 mg/dL Normal 9-23 [facility] Comment on above: Performed By: #### L AB17, LAB99 ####Bath Attendant: JAZLYN BRUCE ([phone])[facility])[address] [place] [address] CT ABDOMEN PELVIS W CONTRAST on 03-16-2025 CT ABDOMEN PELVIS W CONTRAST Patient Name: FRANCISCO RAMOS : [address] [facility]#: [id number] Exam Date/Time: 03/16/2025 07:45 Procedure: CT ABDOMEN [...] findings was made to JAMEEL BARRAZA via [employer] Chat on 03/16/2025 8:35 AM EDT. Report Dictated on Electronically Signed By: Sebastian Díaz MD Electronically Signed Date/Time: 03/16/2025 8:35 AM EDT Chief complaints Abdominal Pain CT abdomen pelvis w contrast Abdominal pain, acute, nonlocalized Normal [facility] CT Abdomen and Pelvis W cont [...] findings was made to JAMEEL BARRAZA via [employer] Chat on 03/16/2025 8:35 AM EDT. Report Dictated on Electronically Signed By: Sebastian Díaz MD Electronically Signed Date/Time: 03/16/2025 8:35 AM EDT [facility] Patient Name: FRANCISCO RAMOS : 1950 Exam Date/Time: 03/16/2025 07:45 Procedure: CT ABDOMEN [...] LYMPH NODES: Unremarkable. No enlarged lymph nodes. [facility] Sebastian Díaz MD - 03/16/2025 [facility] 1950 [id number] Exam Date/Time: 03/16/2025 07:45 Procedure: CT ABDOMEN [...] findings was made to JAMEEL BARRAZA via [employer] Secure Chat on 03/16/2025 8:35 AM EDT. Report Dictated on Electronically Signed By: Sebastian Díaz MD Electronically Signed Date/Time: 03/16/2025 8:[address] [facility] Radiology Study observation (narrative) [facility] He alth CT Abdomen and Pelvis W cont rast IVOrdered By: Sebastian Díaz on 03-16-2025 [facility] [employer] Work Phone: Comprehensive metabolic 1998 panelon 03-16-2025 Albumin [Mass/Vol] 3.5 g/dL 3.4 - 4.8 g/dL [facility] ALP [Catalytic activity/Vol] 67 U/L 40 - 150 U/L [facility] ALT [Catalytic activity/Vol] 23 U/L NINF - 40 U/L [facility] Anion gap [Moles/Vol] 4 mmol/L 3 - 13 mmol/L [facility] AST [Catalytic activity/Vol] [facility] Bilirubin [Mass/Vol] 0.5 mg/dL NINF - 1.2 mg/dL [facility] Calcium [Mass/Vol] 8.5 mg/dL Low 8.8 - 10. 0 mg/dL [facility] Chloride [Moles/Vol] 110 mmol/L High 98 - 10 7 mmol/L [facility] CO2 [Moles/Vol] 23 mmol/L 23 - 31 mmol/L [facility] Creatinine [Mass/Vol] 0.78 mg/dL 0.72 - 1.25 mg/dL [facility] GFR/1.73 sq M.predicted (S/P/Bld) [Vol rate/Area] - PINF [facility] Comment on above: Calculation based on the Chronic Kidney Disease Epidemiology Collaboration (CKD-EPI) equation refit without adjustment for race Glucose [Mass/Vol] 100 mg/dL 82 - 115 mg/dL [facility] Interpretation and review of laboratory results Abnormal [facility] Potassium [Moles/Vol] 3.8 mmol/L 3.5 - 5.1 mmol/L [facility] Comment on above: Plasma potassium sia ues may be up to 0.5 mmol/L lower than serum values. Protein [Mass/Vol] 6.5 g/dL 6.4 - 8.3 g/dL [facility] Sodium [Moles/Vol] 137 mmol/L 136 - 145 mmol/L [facility] Urea nitrogen [Mass/Vol] 18 mg/dL 9 - 23 mg/d L [facility] ED Nursing Noteon 03-16-2025 ED Nursing Note Received report from JOSÉ LUIS Mujica Normal [facility] ED Provider Noteon ED Provider Note EMERGENCY DEPARTMENT ENCOUNTER Pt Name: Francisco Ramos Birthdate 1950 Date of evaluation: 03/16/2025 ED Provider: Jameel Barraza DO CHIEF COMPLAINT Chief Complaint Patient presents with Abdominal Pain Transfer from [facility] for Colonoscopy due to a twisted colon. [...] the emergency department by ED transfer from [facility] ED for abd pain. 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 Pt unable to remember [...] findings was made to JAMEEL BARRAZA via [employer] Chat on 03/16/2025 8:35 AM EDT. [...] 67 ALBU (more content not included)... Normal [facility] Ketones Test strip Ql (U)Ord ered By: Brijesh Frederick on 03-16-2025 Ketones Ql (U) 5 mg/dl High Negative [facility] LACTIC ACID WITH REFLEXon Lactate [Moles/Vol] 0.6 mmol/L Normal 0.5-2.2 [facility] Comment on above: Performed By: #### L [id number] ####Bath Attendant: JAZLYN BRUCE ([phone])[facility] [place] [address] LIPASEon 03-16-2025 Lipase [Catalytic activity/Vol] 11 U/L Normal <55 [facility] Comment on above: Performed By: #### L AB17, LAB99 ####Bath Attendant: JAZLYN BRUCE ([phone])[facility] [place] [address] Laboratory - Chemistry and C hemistry - challengeon 03-16-2025 Lipase [Catalytic activity/Vol] 11 U/L NINF - 55 U/L [facility] Lactate [Moles/Vol] 0.6 mmol/L 0.5 - 2. 2 mmol/L [facility] Lactic Acidon 03-16-2025 Lactate [Moles/Vol] mmol/L Normal 0.0-2.0 [facility] Comment on above: Order Comment: Y Performed By: #### L 503.6005 #### [facility] [address] [place], [address] Lactic acid measurementOrder ed By: Brijesh Frederick on 03-16-2025 Lactate [Moles/Vol] mmol/L 0.0-2.0 [facility] Lipase [Catalytic activity/V ol]on 03-16-2025 Interpretation and review of laboratory results Normal [facility] Microscopic analysis of urin e for red blood cells (RBC)Ordered By: Brijesh Frederick on 03-16-2025 Microscopic analysis of urine for red blood cells (RBC) 0 SEEN /hpf 0-5 [facility] Mucus LM Ql (Urine sed)Order ed By: Brijesh Frederick on 03-16-2025 Mucus Ql (Urine sed) 0 SEEN /hpf [facility] Nitrite Test strip Ql (U)Ord ered By: Brijesh Frederick on 03-16-2025 Nitrite Ql (U) Negative Negative [facility] No Panel Informationon 03-16 [facility] Interpretation and review of laboratory results Normal [facility] Nursing Noteon 03-16-2025 Nursing Note Around [...] reports were filled out as well. Nikki Aguilar, RN drilling supervisor was notified of the incident. Normal [facility] Protein Test strip Ql (U)Ord ered By: Brijesh Frederick on 03-16-2025 Protein Ql (U) 30 mg/dl High Negative [facility] Squamous epithelial cells de tection in urine sediment by light microscopyOrdered By: Brijesh Frederick on 03-16-2025 Epithelial cells.squamous LM Ql (Urine sed) 0 SEEN /hpf 0-5 [facility] Urinalysis, Completeon 03-16 WBC 0-5 SEEN Normal 0-5 [facility] Comment on above: Order Comment: Y Performed By: #### L 503.6005 #### [facility] [address] [place], [address] BILIRUBIN URINE Negative Normal Negative [facility] Comment on above: Order Comment: Y Performed By: #### L 503.6005 #### [facility] [address] [place], [address] Clarity (U) Clear Normal Clear [facility] Comment on above: Order Comment: Y Performed By: #### L 503.6005 #### [facility] [address] [place], [address] Color (U) Yellow Normal Yellow [facility] Comment on above: Order Comment: Y Performed By: #### L 503.6005 #### [facility] [address] [place], [address] GLUCOSE, UR Normal Normal Normal [facility] Comment on above: Order Comment: Y Performed By: #### L 503.6005 #### [facility] [address] [place], [address] KETONE UR 5 mg/dl Abnormal Negative [facility] Comment on above: Order Comment: Y Performed By: #### L 503.6005 #### [facility] [address] [place], [address] LEUK ESTERASE Negative Normal Negative [facility] Comment on above: Order Comment: Y Performed By: #### L 503.6005 #### [facility] [address] [place], [address] Nitrite Ql (U) Negative Normal Negative [facility] Comment on above: Order Comment: Y Performed By: #### L 503.6005 #### [facility] [address] [place], [address] OCCULT BLOOD-UR Negative Normal Negative [facility] Comment on above: Order Comment: Y Performed By: #### L 503.6005 #### [facility] [address] [place], [address] pH UR 7.0 Normal 5.0 - 8.0 [facility] Comment on above: Order Comment: Y Performed By: #### L 503.6005 #### [facility] [address] [place], [address] PROT DIPSTX 30 mg/dl Abnormal Negative [facility] Comment on above: Order Comment: Y Performed By: #### L 503.6005 #### [facility] [address] [place], [address] SP.GR. DIPSTX 1.010 Normal 1.002-1.030 [facility] Comment on above: Order Comment: Y Performed By: #### L 503.6005 #### [facility] [address] [place], [address] UROBILI Normal Normal Normal [facility] Comment on above: Order Comment: Y Performed By: #### L 503.6005 #### [facility] [address] [place], [address] BACTERIA 0 SEEN Normal None Seen [facility] Comment on above: Order Comment: Y Performed By: #### L 503.6005 #### [facility] [address] [place], [address] EPI,SQUAMOUS 0 SEEN Normal 0-5 [facility] Comment on above: Order Comment: Y Performed By: #### L 503.6005 #### [facility] [address] [place], [address] Mucus Ql (Urine sed) 0 SEEN Normal [facility] Comment on above: Order Comment: Y Performed By: #### L 503.6005 #### [facility] [address] [place], [address] RBC 0 SEEN Normal 0-5 [facility] Comment on above: Order Comment: Y Performed By: #### L 503.6005 #### [facility] [address] [place], [address] Urine clarityOrdered By: Maynor Frdeerick on 03-16-2025 Clarity (U) Clear Clear [facility] Urine color determinationOrd ered By: Brijesh Frederick on 03-16-2025 Color (U) Yellow Yellow [facility] Urine glucose detectionOrder ed By: Brijesh Frederick on 03-16-2025 Glucose Ql (U) Normal mg/dl Normal [facility] Urine leukocyte esterase det ection by dipstickOrdered By: Brijesh Frederick on 03-16-2025 Leukocyte esterase Test strip Ql (U) Negative Negative [facility] Urine pHOrdered By: Brijesh Blanco on 03-16-2025 pH (U) 7.0 [pH] 5.0 - 8.0 [facility] Urine sediment bacteria coun t by microscopy (number/high power field)Ordered By: Brijesh Frederick on 03-16-2025 Bacteria LM.HPF (Urine sed) [#/Area] 0 /[HPF] None Seen [facility] Urine specific gravity measu rementOrdered By: Brijesh Frederick on 03-16-2025 Specific gravity (U) [Rel density] 1.010 1.002-1.030 [facility] Urine urobilinogen measureme ntOrdered By: Brijesh Yoly on 03-16-2025 Urobilinogen Ql (U) Normal mg/dl Normal [facility] White blood cell countOrdere d By: Brijesh Yoly on 03-16-2025 White blood cell count 0-5 SEEN /hpf 0-5 [facility] XR ABDOMEN 2 VIEWS SUPINE AN D [...] Signed Date/Time: 03/16/2025 12:53 PM EDT Normal [facility] XR Abdomen Supine and Latera l-decubituson 03-16-2025 Radiology Study observation (narrative) [facility] Rectal tube placement. Improved sigmoid colon distention. Mildly dilated proximal colon, possibly ileus, with a moderate to large amount of colonic stool. Report Dictated on Electronically Signed By: Sebastian Díaz MD Electronically Signed Date/Time: 03/16/2025 12:53 PM EDT [facility] Patient Name: FRANCISCO RAMOS : 1950 [...] spine. The visualized lung bases are unremarkable. [facility] Sebastian Díaz MD - 03/16/2025 Patient [...] Electronically Signed Date/Time: 03/16/2025 12:53 PM EDT [facility] Abdomen/Pelvis W IV Cont ONL Yon 03-15-2025 Abdomen/Pelvis W IV Cont ONLY [facility] [address] [place] [address] [id number] Abdomen/Pelvis W IV Cont ONLY MR#: [id number] Acct: [id number] Name: FRANCISCO RAMOS Rep #: [id number] : 1950 M 74 From: Az Tejeda MD PCP: Dr. Ethan Avendano MD Status: [facility] ER Study: Abdomen/Pelvis W IV Cont ONLY Date of Exam: Exam# [id number] Ordering Dr: Gordon Frederick DO PROCEDURE: ABDOMEN/PELVIS W IV CONT [...] if not recently performed. 3. Mild splenomegaly. Cole Alert: Sigmoid volvulus The critical information above was relayed directly by me by telephone to Brijesh Frederick on 03/15/2025 at 11:58 pm with readback verification. Reading Location: [facility] CC: Dr. Brijesh Frederick DO; Dr. Ethan Avendano MD Shade Matcher: Signed Normal [facility] Absolute lymphocyte countOrd ered By: Brijesh Frederick on 03-15-2025 Lymphocytes Auto (Unsp spec) [#/Vol] 0.69 10*3/uL Low 0.83-4.51 [facility] Absolute neutrophil countOrd ered By: Brijesh Frederick on 03-15-2025 Neutrophils (Bld) [#/Vol] 4.8 10*3/uL 2.0-7.7 [facility] Anion gap in Serum or Plasma Ordered By: Brijesh Frederick on 03-15-2025 Anion gap [Moles/Vol] 14 mmol/L 5-15 [facility] Automated lymphocyte count a s percentage of total leukocytesOrdered By: Brijesh Frederick on 03-15-2025 Lymphocytes/100 WBC Auto (Unsp spec) 11.6 % Low 19-41 [facility] BUN/creatinine ratioOrdered By: Brijesh Yoly on 03-15-2025 Urea nitrogen/Creatinine [Mass ratio] 23.2 mg/mg High 10-20 [facility] Basophil percentageOrdered B y: Brijesh Frederick on 03-15-2025 Basophils/100 WBC (Bld) 0.2 % 0-1 [facility] Bilirubin, totalOrdered By: Brijesh Yoly on 03-15-2025 Bilirubin [Mass/Vol] 0.51 mg/dL 0.00-1.30 [facility] CBC W/Diff, Automatedon 03-04-2024 Absolute Lymph 0.69 X10 3/uL Low 0.83-4.51 [facility] Comment on above: Performed By: #### L 501.2450, L100.0100, L500.4050 #### [facility] [address] [place], [address] Absolute Neut 4.8 X10 3/uL Normal 2.0-7.7 [facility] Comment on above: Performed By: #### L 501.2450, L100.0100, L500.4050 #### [facility] [address] [place], [address] Basophils/100 WBC (Bld) 0.2 % Normal 0-1 [facility] Comment on above: Performed By: #### L 501.2450, L100.0100, L500.4050 #### [facility] [address] [place], [address] Eosinophils/100 WBC (Bld) 0.0 % Normal 0-5 [facility] Comment on above: Performed By: #### L 501.2450, L100.0100, L500.4050 #### [facility] [address] [place], [address] Erythrocyte distribution width (RBC) [Ratio] 12.8 % Normal 11.6-14.6 [facility] Comment on above: Performed By: #### L 501.2450, L100.0100, L500.4050 #### [facility] [address] [place], [address] Hematocrit (Bld) [Volume fraction] 42.3 % Normal 40-54 [facility] Comment on above: Performed By: #### L 501.2450, L100.0100, L500.4050 #### [facility] [address] [place], [address] Hemoglobin (Bld) [Mass/Vol] 14.6 g/dL Normal 13.0-16.5 [facility] Comment on above: Performed By: #### L 501.2450, L100.0100, L500.4050 #### [facility] [address] [place], [address] IG% 0.500 Normal 0.0-0.9 [facility] Comment on above: Result Comment: IG% - Immature Granulocytes (promyelocytes, myelocytes and metamyelocytes) > 1% indicates that a LEFT SHIFT is Present. Performed By: #### L 501.2450, L100.0100, L500.4050 #### [facility] [address] [place], [address] Lymphocytes/100 WBC (Bld) 11.6 % Low 19-41 [facility] Comment on above: Performed By: #### L 501.2450, L100.0100, L500.4050 #### [facility] [address] [place], [address] MCH (RBC) [Entitic mass] 30.8 pg Normal 27.0-32.0 [facility] Comment on above: Performed By: #### L 501.2450, L100.0100, L500.4050 #### [facility] [address] [place], [address] MCHC (RBC) [Mass/Vol] 34.5 g/dL Normal 32-36 [facility] Comment on above: Performed By: #### L 501.2450, L100.0100, L500.4050 #### [facility] [address] [place], [address] MCV (RBC) [Entitic vol] 89.2 fL Normal 80-94 [facility] Comment on above: Performed By: #### L 501.2450, L100.0100, L500.4050 #### [facility] [address] [place], [address] Monocytes/100 WBC (Bld) 7.4 % Normal 0-10 [facility] Comment on above: Performed By: #### L 501.2450, L100.0100, L500.4050 #### [facility] [address] [place], [address] Neutrophils/100 WBC (Bld) 80.3 % High 47-70 [facility] Comment on above: Performed By: #### L 501.2450, L100.0100, L500.4050 #### [facility] [address] [place], [address] Nucleated RBC (Bld) [#/Vol] 0 10*3/uL Normal 0-5 [facility] Comment on above: Performed By: #### L 501.2450, L100.0100, L500.4050 #### [facility] [address] [place], [address] Platelet mean volume (Bld) [Entitic vol] 11.1 fL Normal 6.2-12.0 [facility] Comment on above: Performed By: #### L 501.2450, L100.0100, L500.4050 #### [facility] [address] [place], [address] Platelets (Bld) [#/Vol] 148 10*3/uL Low 150-450 [facility] Comment on above: Performed By: #### L 501.2450, L100.0100, L500.4050 #### [facility] [address] [place], [address] RBC (Bld) [#/Vol] 4.74 10*6/uL Normal 4.6-6.2 [facility] Comment on above: Performed By: #### L 501.2450, L100.0100, L500.4050 #### [facility] [address] [place], [address] RDW SD 41.8 fl Normal 35.1-43.9 [facility] Comment on above: Performed By: #### L 501.2450, L100.0100, L500.4050 #### [facility] [address] [place], [address] WBC (Bld) [#/Vol] 5.9 10*3/uL Normal 4.4-11.0 [facility] Comment on above: Performed By: #### L 501.2450, L100.0100, L500.4050 #### [facility] [address] [place], [address] Carbon dioxide, total [Moles /volume] in Central venous bloodOrdered By: Brijesh Frederick on 03-15-2025 CO2 [Moles/Vol] 24.2 mmol/L 21.0-32.0 [facility] Chloride assayOrdered By: Jake Frederick on 03-15-2025 Chloride [Moles/Vol] 101 mmol/L 98-108 [facility] Comprehensive Metabolic Prof ilon 03-15-2025 Albumin [Mass/Vol] 4.4 g/dL Normal 3.4-4.8 [facility] Comment on above: Performed By: #### L 501.2450, L100.0100, L500.4050 #### [facility] [address] [place], [address] Albumin/Globulin [Mass ratio] 1.6 {ratio} Normal 0.9-2.4 [facility] Comment on above: Performed By: #### L 501.2450, L100.0100, L500.4050 #### [facility] [address] [place], [address] ALK PHOS 84 U/L Normal 40-129 [facility] Comment on above: Performed By: #### L 501.2450, L100.0100, L500.4050 #### [facility] [address] [place], [address] ALT [Catalytic activity/Vol] 17 U/L Normal <=46 [facility] Comment on above: Performed By: #### L 501.2450, L100.0100, L500.4050 #### [facility] [address] [place], [address] AST [Catalytic activity/Vol] 26 U/L Normal <=37 [facility] Comment on above: Performed By: #### L 501.2450, L100.0100, L500.4050 #### [facility] [address] [place], [address] Bilirubin [Mass/Vol] 0.51 mg/dL Normal 0.00-1.30 [facility] Comment on above: Performed By: #### L 501.2450, L100.0100, L500.4050 #### [facility] [address] [place], [address] BUN/CRE 23.2 RATIO High 10-20 [facility] Comment on above: Performed By: #### L 501.2450, L100.0100, L500.4050 #### [facility] [address] [place], [address] Calcium [Mass/Vol] 9.8 mg/dL Normal 7.6-11.0 [facility] Comment on above: Performed By: #### L 501.2450, L100.0100, L500.4050 #### [facility] [address] [place], [address] Chloride [Moles/Vol] 101 mmol/L Normal 98-108 [facility] Comment on above: Performed By: #### L 501.2450, L100.0100, L500.4050 #### [facility] [address] [place], [address] CO2 [Moles/Vol] 24.2 mmol/L Normal 21.0-32.0 [facility] Comment on above: Performed By: #### L 501.2450, L100.0100, L500.4050 #### [facility] [address] [place], [address] Creatinine [Mass/Vol] 0.93 mg/dL Normal 0.70-1.20 [facility] Comment on above: Performed By: #### L 501.2450, L100.0100, L500.4050 #### [facility] [address] [place], [address] ECRCL 66.84 ml/min Normal 50-250 [facility] Comment on above: Performed By: #### L 501.2450, L100.0100, L500.4050 #### [facility] [address] [place], [address] GAP 14 Normal 5-15 [facility] Comment on above: Performed By: #### L 501.2450, L100.0100, L500.4050 #### [facility] [address] [place], [address] GFR/1.73 sq M.predicted among non-blacks MDRD (S/P/Bld) [Vol rate/Area] 88 mL/min/{1.73_m2} Normal >60 [facility] Comment on above: Result Comment: mL/m in/1.73m2 CKD-EPI Creatinine Equation (2020) Performed By: #### L 501.2450, L100.0100, L500.4050 #### [facility] [address] [place], [address] Globulin (S) [Mass/Vol] 2.8 g/dL Normal 2.2-4.2 [facility] Comment on above: Performed By: #### L 501.2450, L100.0100, L500.4050 #### [facility] [address] [place], [address] Glucose [Mass/Vol] 170 mg/dL High 70-99 [facility] Comment on above: Performed By: #### L 501.2450, L100.0100, L500.4050 #### [facility] [address] [place], [address] Potassium [Moles/Vol] 3.7 mmol/L Normal 3.3-5.1 [facility] Comment on above: Performed By: #### L 501.2450, L100.0100, L500.4050 #### [facility] [address] [place], [address] Sodium [Moles/Vol] 139 mmol/L Normal 133-145 [facility] Comment on above: Performed By: #### L 501.2450, L100.0100, L500.4050 #### [facility] [address] [place], [address] T PROT 7.2 g/dL Normal 5.9-8.4 [facility] Comment on above: Performed By: #### L 501.2450, L100.0100, L500.4050 #### [facility] [address] [place], [address] Urea nitrogen [Mass/Vol] 22 mg/dL High 4-19 [facility] Comment on above: Performed By: #### L 501.2450, L100.0100, L500.4050 #### [facility] [address] [place], [address] Emergency Department Summary on 03-15-2025 Emergency Department Summary [facility] Medical Records Department [address] [place] [address] Emergency Department Summary 03/15/25 MR#: [id number] Acct: [id number] Name: FRANCISCO RAMOS Rep #: [id number] : 1950 74 From: Brijesh Frederick DO [...] intact Psych: Cooperative, appropriate mood and affect [facility] Medical History Tortuous colon Wears glasses Arthritis High cholesterol Easy bruising Back pain Non-smoker History of pain when walking History of echocardiogram History of stress test Cardiology follow-up encounter Parkinson disease Atherosclerosis of coronary artery of [place] heart without angina pectoris Hyperlipidemia Common variable immunodeficiency Benign prostate hyperplasia Basal cell carcinoma of left ear Home Medications ???Medication ???Instructions ???Recorded ???Last Taken ???Type multivitamin with folic acid 400 1 tab PO DAILY 06/10/13 08/22/24 H istory mcg tablet folic acid 400 mcg tablet 1 tab PO DAILY 12/24/13 08/19/24 H istory immune glob,gamma(IgG) 10 20 g .Route .[id number] 03/04/1901/25 History bjhp-zrh-gmyi-IgA 0 to 50 mcg/mL IV solution nitroglycerin [...] Room Air (more content not included)... Normal [facility] Eosinophil percentageOrdered By: Brijesh Frederick on 03-15-2025 Eosinophils/100 WBC (Bld) 0.0 % 0-5 [facility] Erythrocyte distribution wid th ratioOrdered By: Brijesh Frederick on 03-15-2025 Erythrocyte distribution width (RBC) [Ratio] 12.8 % 11.6-14.6 [facility] Erythrocyte distribution wid th standard deviationOrdered By: Brijesh Manjarrez on 03-15-2025 Erythrocyte distribution width (RBC) [Ratio] 41.8 fl 35.1-43.9 [facility] Glomerular filtration rate ( GFR) estimation/1.73 sq m using serum, plasma, or whole bOrdered By: Brijesh Frederick on 03-15-2025 GFR/1.73 sq M.predicted among non-blacks MDRD (S/P/Bld) [Vol rate/Area] 88 mL/min/{1.73_m2} >60 [facility] Comment on above: mL/min/1.73m2 CKD-EP I Creatinine Equation (2020) Hematocrit Auto (Bld) [Volum e fraction]Ordered By: Brijesh Frederick on 03-15-2025 Hematocrit (Bld) [Volume fraction] 42.3 % 40-54 [facility] Hemoglobin measurementOrdere d By: [facility] [place] on 03-15-2025 Hemoglobin (Bld) [Mass/Vol] 14.6 g/dL 13.0-16.5 [facility] Immature granulocytes/100 WB C Auto (Bld)Ordered By: [place] Yoly on 03-15-2025 Immature granulocytes/100 WBC (Bld) 0.500 % 0.0-0.9 [facility] Comment on above: IG% - Immature Granu locytes (promyelocytes, myelocytes and metamyelocytes) > 1% indicates that a LEFT SHIFT is Present. Laboratory - Chemistry and C hemistry - challengeOrdered By: Brijesh Frederick on 03-15-2025 AST [Catalytic activity/Vol] 26 U/L <38 [facility] Lipaseon 03-15-2025 Lipase [Catalytic activity/Vol] 20 U/L Normal 13-75 [facility] Comment on above: Result Comment: Tejas lassiter note: LIPASE revised reference range effective 22. New Lipase methodology. Expected to produce lower values than the previous assay method. NEW Reference Range: 13 - 75 U/L Performed By: #### L 400.0001 #### [facility] [address] [place], [place], [id number] Lipase measurementOrdered By : Brijeshmathieu Frederick on 03-15-2025 Lipase [Catalytic activity/Vol] 20 U/L 13-75 [facility] Comment on above: Please note:LIPASE r evised reference range effective 22. New Lipase methodology. Expected to produce lower values than the previous assay method. NEW Reference Range: 13 - 75 U/L MCV (mean corpuscular volume ) determinationOrdered By: Brijesh Frederick on 03-15-2025 MCV (RBC) [Entitic vol] 89.2 fL 80-94 [facility] Mean corpuscular hemoglobin (MCH) determinationOrdered By: Brijesh Frederick on 03-15-2025 MCH (RBC) [Entitic mass] 30.8 pg 27.0-32.0 [facility] Mean corpuscular hemoglobin concentration (MCHC) determinationOrdered By: Brijesh Frederick on 03-15-2025 MCHC (RBC) [Mass/Vol] 34.5 g/dL 32-36 [facility] Mean platelet volume determi nationOrdered By: Brijesh Frederick on 03-15-2025 Platelet mean volume (Bld) [Entitic vol] 11.1 fL 6.2-12.0 [facility] Monocyte percentageOrdered B y: Brijesh Frederick on 03-15-2025 Monocytes/100 WBC (Bld) 7.4 % 0-10 [facility] Neutrophil percentageOrdered By: Brijesh Frederick on 03-15-2025 Neutrophils/100 WBC (Bld) 80.3 % High 47-70 [facility] Nucleated red blood cell per centageOrdered By: Brijesh Frederick on 03-15-2025 Nucleated RBC/100 WBC (Bld) [Ratio] 0 % 0-5 [facility] Platelet countOrdered By: Jake Frederick on 03-15-2025 Platelets (Bld) [#/Vol] 148 10*3/uL Low 150-450 [facility] Potassium measurement (mass/ volume)Ordered By: Brijesh Frederick on 03-15-2025 Potassium (Unsp spec) [Mass/Vol] 3.7 mmol/L 3.3-5.1 [facility] RBC Auto (Bld) [#/Vol]Ordere d By: Brijesh Frederick on 03-15-2025 RBC (Bld) [#/Vol] 4.74 10*6/uL 4.6-6.2 [facility] Serum creatinine measurement (mass/volume)Ordered By: Brijesh Frederick on 03-15-2025 Creatinine [Mass/Vol] 0.93 mg/dL 0.70-1.20 [facility] Serum globulin measurementOr dered By: Brijesh Frederick on 03-15-2025 Globulin (S) [Mass/Vol] 2.8 g/dL 2.2-4.2 [facility] Serum glucose measurement (m ass/volume)Ordered By: Brijesh Frederick on 03-15-2025 Glucose [Mass/Vol] 170 mg/dL High 70-99 [facility] Serum or plasma alanine garcia otransferase (ALT) measurementOrdered By: Brijesh Frederick on 03-15-2025 ALT [Catalytic activity/Vol] 17 U/L <47 [facility] Serum or plasma albumin john urement (mass/volume)Ordered By: Brijesh Manjarrez on 03-15-2025 Albumin [Mass/Vol] 4.4 g/dL 3.4-4.8 [facility] Serum or plasma albumin/glob ulin mass ratioOrdered By: Brijesh Frederick on 03-15-2025 Albumin/Globulin [Mass ratio] 1.6 {ratio} 0.9-2.4 [facility] Serum or plasma alkaline dylon sphatase measurementOrdered By: Brijesh Frederick on 03-15-2025 ALP [Catalytic activity/Vol] 84 U/L 40-129 [facility] Serum or plasma calcium john urement (mass/volume)Ordered By: Brijesh Manjarrez on 03-15-2025 Calcium [Mass/Vol] 9.8 mg/dL 7.6-11.0 [facility] Serum or plasma urea nitroge n measurement (mass/volume)Ordered By: Brijesh Frederick on 03-15-2025 Urea nitrogen [Mass/Vol] 22 mg/dL High 4-19 [facility] Sodium levelOrdered By: Gordon l Yoly on 03-15-2025 Sodium [Moles/Vol] 139 mmol/L 133-145 [facility] Total proteinOrdered By: Maynor murdock Yoly on 03-15-2025 Protein [Mass/Vol] 7.2 g/dL 5.9-8.4 [facility] White blood cell (WBC) count Ordered By: Brijesh Yoly on 03-15-2025 WBC (Bld) [#/Vol] 5.9 10*3/uL 4.4-11.0 [facility] PT D/C Summary (1)on 025 PT D/C Summary (1) [facility] [place] [address] 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 He was on the [...] please feel free to call me at [phone]. Thank you for the referral of this patient. Sincerely, Mojgan Gonzalez, MPT Balance/Gait/Functi onal tests Balance/Special Test Scores Functional Gait Assessment Score: 25 % Disability: 16.6700 CATSIB Score (Max score 120 seconds): 120 Lower Extremity Functional Score: 44 Improvement % Improvement: 15 01/06/25 1506 CC: Dr. Ethan Avendano MD; KIM Mendenhall Signed Normal [facility] T4 Free Directon 12-25-2024 T4 FREE DIRECT 0.90 ng/dL Normal 0.76-1.46 [facility] Comment on above: Performed By: #### L 506.0400 #### [facility] [address] [place], [address] T4 freeOrdered By: Ethan cheng on 12-25-2024 Free T4 [Mass/Vol] 0.90 ng/dL 0.76-1.46 [facility] Carotid Duplex Ultrasoundon 12-17-2024 Carotid Duplex Ultrasound [facility] [address] [place] [address] Carotid Duplex Ultrasound 12/17/24 1358 MR#: [id number] Acct: [id number] Name: GEETAFRANCISCO DEION Rep #: [id number] : 1950 74 From: Marcio Newell MD Attending Dr: Dr. Demian Ramsay MD Status: AMADEO MCCAULEY Ordering Dr: Demian Ramsay MD Date: 12/17/24 Location: [facility] Sex: M C Admitted: Reason For Study [...] the left vertebral artery. Procedure Carotid Duplex 18516. This is a Carotid Duplex examination using B-mode, color flow and specral Doppler. Exam performed in department. VL/Carotid Duplex Ultrasound Interpretation Summary Moderate (50-69%) stenosis right extracranial internal carotid. Mild (<50%) stenosis left extracranial internal carotid. Flow within the vertebral arteries is antegrade bilaterally. __ Ordering Physician: Demian Ramsay Referring Physician: Ethan Avendano Performed By: Lisa Kohler, RDCS, RVT 12/17/241838 Date Marcio Newell MD CC: Dr. Demian Ramsay MD; Dr. Ethan Avendano MD Date Dictated: 12/17/241357 Date Transcribed: 12/17/241838 Shade Matcher: Signed Normal [facility] Duplex ultrasound of carotid artery reportOrdered By: Marcio Newell on 12-17-2024 Study report [facility] [address] [place] [address] Carotid Duplex Ultrasound 12/17/241357 MR#: [id number] Acct: [id number] Name: FRANCISCO RAMOS Rep #:[id number] : 1950 74 From: Marcio Newell MD Attending Dr: Dr. Demian Ramsay MD S tatus: REG CLI Ordering Dr: Demian Ramsay MD Date: Location: [facility] Sex: M C Admitted: Reason For Study Reason For Study: BRUIT Rt. Velocities/BP Lt. Velocities/BP Prox CCA 107.2/13.9 cm/sec. Prox CCA 142.3/23.6 cm/sec. Mid CCA 74.4/13.0 cm/sec. Mid UVI426.8/19.9 cm/sec. Dist CCA 65.8/10.6 cm/sec. Dist CCA 91.1/19.9 cm/sec. Prox ICA 177.7/31.6 cm/sec. Prox ICA 129.5/10.8 cm/sec. Mid ICA 134.4/19.4 cm/sec. Mid WOF182.8/19.9 cm/sec. Dist ICA 125.3/28.5 cm/sec. Dist ICA [...] the left vertebral artery. Procedure Carotid Duplex 87011. This is a Carotid Duplex examination using B-mode, color flow and specral Doppler. Exam performed in department. VL/Carotid Duplex Ultrasound Interpretation Summary Moderate (50-69%) stenosis right extracranial internal carotid. Mild (<50%) stenosis left extracranial internal carotid. Flow within the vertebral arteries is antegrade bilaterally. __ Ordering Physician: Demian Ramsay Referring Physician: Ethan Avendano Performed By: Lisa Kohler, RDCS, RVT 12/17/241838 Date _ Marcio Newell MD CC: Dr. Demian Ramsay MD; Dr. Ethan Avendano MD ~ Date Dictated: 12/17/24 1358 Date Transcribed: 12/17/241838 Shade Matcher: Signed [facility] Other Inital Evaluation (1) - PTon 12-04-2024 Inital Evaluation (1) - PT [facility] [facility] [place] [address] / REHABILITATION SERVICES INITIAL EVALUATION MR#: [id number] Acct: [id number] Name: FRANCISCO RAMOS Rep #: [id number] : 1950 74 From: Mojgan DC Referring Dr.: Sandra Joaquin Status: REG RCR Insurance: MEDICARE PART A B [facility] Patient's Visit Information Visit Information Visit [...] years ago with PD. He take Silver [employer] classes here (2 yoga classes, Mellisa) for [...] to perform ADL's, To increase tolerance to activity/condition/ position, To improve performance and independence with ADL's, To decrease level of supervision to perform tasks, To improve ability of physical actions for home/community/work /leisure, To improve gait and locomotor functions, To improve health of tissue, To decrease soft tissue restriction, To increase flexibility/ROM, To improve endurance, To improve balance and To improve safety with gait Therapeutic Exercise to Include: Strength training, Endurance training, Balance training, Body mechanics, Postural training, Flexibilty training, Gait and locomotor training, Neuromotor development, Active ROM and Scapular Strength/Stabilizat ion For the Purpose of:: To decrease pain, To increase ROM, To improve nutrient delivery to tissue, To improve muscle performance and motor function, To improve ability to perform ADL's, To increase jannia erance to activity/condition/ position, To improve performance and independence with ADL's, To decrease level of supervision to perform tasks, To improve ability of physical actions for home/community/work /leisure, To improve gait and locomotor functions, To [...] of care (more content not included)... Normal [facility] Cardiology Visit Reporton Cardiology Visit Report [facility] [address] [place] [address] OFFICE VISIT Date of Service: 11/28/24 MR#: [id number] Acct: [id number] Name: FRANCISCO RAMOS Rep #: [id number] : 1950 Provider: Dr. Demian Ramsay MD Age/Sex: 74/M Location: [facility] Status: Signed HPI HPI History of Present [...] well. He does not have any chest discomfort/heavines s/tightness. 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 Accompanied by: Significant Other Is patient in pain?: No Allergies No Known Allergies Allergy (Verified 11/28/24 10:54) Medications ???Medication ???Instructions ???Recorded ???Confirmed ???Type multivitamin with folic acid 400 1 tab PO DAILY 06/10/13 11/28/24 H istory mcg tablet folic acid 400 mcg tablet 1 tab PO DAILY 12/24/13 11/28/24 H istory immune glob,gamma(IgG) 10 20 g .Route .t6thuvy 03/04/1911/03 History hdwl-nua-mxlm-IgA 0 to 50 mcg/mL IV solution nitroglycerin [...] Parkinson disease Atherosclerosis of coronary artery of [place] heart without angina pectoris Hyperlipidemia Common variable [...] lying d (more content not included)... Normal [facility] T4 Free Directon 10-31-2024 T4 FREE DIRECT 0.90 ng/dL Normal 0.76-1.46 [facility] Comment on above: Order Comment: CLEAN CATCH Performed By: #### L 400.0001 #### [facility] [address] [place], [address] Comprehensive Metabolic Prof ilon 10-30-2024 Albumin [Mass/Vol] 4.3 g/dL Normal 3.4-4.8 [facility] Comment on above: Order Comment: CLEAN CATCH Performed By: #### L 400.0001 #### [facility] [address] [place], [address] Albumin/Globulin [Mass ratio] 1.8 {ratio} Normal 0.9-2.4 [facility] Comment on above: Order Comment: CLEAN CATCH Performed By: #### L 400.0001 #### [facility] [address] [place], [address] ALK PHOS 63 U/L Normal 40-129 [facility] Comment on above: Order Comment: CLEAN CATCH Performed By: #### L 400.0001 #### [facility] [address] [place], [address] ALT [Catalytic activity/Vol] 31 U/L Normal <=46 [facility] Comment on above: Order Comment: CLEAN CATCH Performed By: #### L 400.0001 #### [facility] [address] [place], [address] Anion gap [Moles/Vol] 11 mmol/L Normal 5-15 [facility] Comment on above: Order Comment: CLEAN CATCH Performed By: #### L 400.0001 #### [facility] [address] [place], [address] AST [Catalytic activity/Vol] 35 U/L Normal <=37 [facility] Comment on above: Order Comment: CLEAN CATCH Performed By: #### L 400.0001 #### [facility] [address] [place], [address] Bilirubin [Mass/Vol] 0.52 mg/dL Normal 0.00-1.30 [facility] Comment on above: Order Comment: CLEAN CATCH Performed By: #### L 400.0001 #### [facility] [address] [place], [address] BUN/CRE 16.3 RATIO Normal 10-20 [facility] Comment on above: Order Comment: CLEAN CATCH Performed By: #### L 400.0001 #### [facility] [address] [place], [address] Calcium [Mass/Vol] 9.6 mg/dL Normal 7.6-11.0 [facility] Comment on above: Order Comment: CLEAN CATCH Performed By: #### L 400.0001 #### [facility] [address] [place], [address] Chloride [Moles/Vol] 102 mmol/L Normal 96-108 [facility] Comment on above: Order Comment: CLEAN CATCH Performed By: #### L 400.0001 #### [facility] [address] [place], [address] CO2 [Moles/Vol] 25.1 mmol/L Normal 22.0-29.0 [facility] Comment on above: Order Comment: CLEAN CATCH Performed By: #### L 400.0001 #### [facility] [address] [place], [address] Creatinine [Mass/Vol] 1.0 mg/dL Normal 0.8-1.3 [facility] Comment on above: Order Comment: CLEAN CATCH Performed By: #### L 400.0001 #### [facility] [address] [place], [address] GFR/1.73 sq M.predicted among non-blacks MDRD (S/P/Bld) [Vol rate/Area] 86 mL/min/{1.73_m2} Normal >60 [facility] Comment on above: Order Comment: CLEAN CATCH Result Comment: mL/m in/1.73m2 CKD-EPI Creatinine Equation (2020) Performed By: #### L 400.0001 #### [facility] [address] [place], [address] Globulin (S) [Mass/Vol] 2.4 g/dL Normal 2.2-4.2 [facility] Comment on above: Order Comment: CLEAN CATCH Performed By: #### L 400.0001 #### [facility] [address] [place], [address] Glucose [Mass/Vol] 80 mg/dL Normal 70-99 [facility] Comment on above: Order Comment: CLEAN CATCH Performed By: #### L 400.0001 #### [facility] [address] [place], [address] Potassium [Moles/Vol] 4.5 mmol/L Normal 3.3-5.1 [facility] Comment on above: Order Comment: CLEAN CATCH Performed By: #### L 400.0001 #### [facility] [address] [place], [address] Sodium [Moles/Vol] 138 mmol/L Normal 133-145 [facility] Comment on above: Order Comment: CLEAN CATCH Performed By: #### L 400.0001 #### [facility] [address] [place], [address] T PROT 6.7 g/dL Normal 5.9-8.4 [facility] Comment on above: Order Comment: CLEAN CATCH Performed By: #### L 400.0001 #### [facility] [address] [place], [address] Urea nitrogen [Mass/Vol] 15 mg/dL Normal 4-19 [facility] Comment on above: Order Comment: CLEAN CATCH Performed By: #### L 400.0001 #### [facility] [address] [place], [address] Folates, (Folic Acid)on 10-06 FOLATES 32.00 ng/mL Normal 4.60-34.80 [facility] Comment on above: Order Comment: CLEAN CATCH Result Comment: Hemo lysis, Results will be affected, Requires Recollection. Performed By: #### L 400.0001 #### [facility] [address] [place], [address] Hemoglobin A1con 10-30-2024 HbA1c (Bld) [Mass fraction] 5.8 % Normal <=5.6 [facility] Comment on above: Order Comment: CLEAN CATCH Performed By: #### L 400.0001 #### [facility] [address] [place], [address] L503.0106on 10-30-2024 Cobalamin (Vitamin B12) [Mass/Vol] 555 pg/mL Normal 180-914 [facility] Comment on above: Order Comment: CLEAN CATCH Performed By: #### L 400.0001 #### [facility] [address] [place], [address] Thyroid Stim Hormone (TSH)on 10-30-2024 TSH 6.000 uIU/mL High 0.300-4.200 [facility] Comment on above: Order Comment: CLEAN CATCH Performed By: #### L 400.0001 #### [facility] [address] [place], [address] Absolute lymphocyte countOrd ered By: Ethan Avendano on 10-29-2024 Lymphocytes Auto (Unsp spec) [#/Vol] 0.90 10*3/uL 0.83-4.51 [facility] Absolute neutrophil countOrd ered By: Ethan Avendano on 10-29-2024 Neutrophils (Bld) [#/Vol] 3.2 10*3/uL 2.0-7.7 [facility] Automated lymphocyte count a s percentage of total leukocytesOrdered By: Ethan Avendano on 10-29-2024 Lymphocytes/100 WBC Auto (Unsp spec) 19.3 % 19-41 [facility] BUN/creatinine ratioOrdered By: Ethan Avendano on 10-29-2024 Urea nitrogen/Creatinine [Mass ratio] 16.3 mg/mg 10-20 [facility] Basophil percentageOrdered B y: Ethan Avendano on 10-29-2024 Basophils/100 WBC (Bld) 0.2 % 0-1 [facility] Bilirubin, totalOrdered By: Ethan Avendano on 10-29-2024 Bilirubin [Mass/Vol] 0.52 mg/dL 0.00-1.30 [facility] CBC W/Diff, Automatedon 10-06 Absolute Lymph 0.90 X10 3/uL Normal 0.83-4.51 [facility] Comment on above: Order Comment: CLEAN CATCH Performed By: #### L 400.0001 #### [facility] [address] [place], [address] Absolute Neut 3.2 X10 3/uL Normal 2.0-7.7 [facility] Comment on above: Order Comment: CLEAN CATCH Performed By: #### L 400.0001 #### [facility] [address] [place], [address] Basophils/100 WBC (Bld) 0.2 % Normal 0-1 [facility] Comment on above: Order Comment: CLEAN CATCH Performed By: #### L 400.0001 #### [facility] [address] [place], [address] Eosinophils/100 WBC (Bld) 0.0 % Normal 0-5 [facility] Comment on above: Order Comment: CLEAN CATCH Performed By: #### L 400.0001 #### [facility] [address] [place], [address] Erythrocyte distribution width (RBC) [Ratio] 12.9 % Normal 11.6-14.6 [facility] Comment on above: Order Comment: CLEAN CATCH Performed By: #### L 400.0001 #### [facility] [address] [place], [address] Hematocrit (Bld) [Volume fraction] 41.1 % Normal 40-54 [facility] Comment on above: Order Comment: CLEAN CATCH Performed By: #### L 400.0001 #### [facility] [address] [place], [address] Hemoglobin (Bld) [Mass/Vol] 13.7 g/dL Normal 13.0-16.5 [facility] Comment on above: Order Comment: CLEAN CATCH Performed By: #### L 400.0001 #### [facility] [address] [place], [address] IG% 0.400 Normal 0.0-0.9 [facility] Comment on above: Order Comment: CLEAN CATCH Result Comment: IG% - Immature Granulocytes (promyelocytes, myelocytes and metamyelocytes) > 1% indicates that a LEFT SHIFT is Present. Performed By: #### L 400.0001 #### [facility] [address] [place], [address] Lymphocytes/100 WBC (Bld) 19.3 % Normal 19-41 [facility] Comment on above: Order Comment: CLEAN CATCH Performed By: #### L 400.0001 #### [facility] [address] [place], [address] MCH (RBC) [Entitic mass] 30.5 pg Normal 27.0-32.0 [facility] Comment on above: Order Comment: CLEAN CATCH Performed By: #### L [id number] #### [facility] [address] [place], [address] MCHC (RBC) [Mass/Vol] 33.3 g/dL Normal 32-36 [facility] Comment on above: Order Comment: CLEAN CATCH Performed By: #### L [id number] #### [facility] [address] [place], [address] MCV (RBC) [Entitic vol] 91.5 fL Normal 80-94 [facility] Comment on above: Order Comment: CLEAN CATCH Performed By: #### L [id number] #### [facility] [address] [place], [address] Monocytes/100 WBC (Bld) 10.7 % High 0-10 [facility] Comment on above: Order Comment: CLEAN CATCH Performed By: #### L [id number] #### [facility] [address] [place], [address] Neutrophils/100 WBC (Bld) 69.4 % Normal 47-70 [facility] Comment on above: Order Comment: CLEAN CATCH Performed By: #### L [id number] #### [facility] [address] [place], [address] Nucleated RBC (Bld) [#/Vol] 0 10*3/uL Normal 0-5 [facility] Comment on above: Order Comment: CLEAN CATCH Performed By: #### L [id number] #### [facility] [address] [place], [address] Platelet mean volume (Bld) [Entitic vol] 11.4 fL Normal 6.2-12.0 [facility] Comment on above: Order Comment: CLEAN CATCH Performed By: #### L [id number] #### [facility] [address] [place], [address] Platelets (Bld) [#/Vol] 126 10*3/uL Low 150-450 [facility] Comment on above: Order Comment: CLEAN CATCH Performed By: #### L [id number] #### [facility] [address] [place], [address] RBC (Bld) [#/Vol] 4.49 10*6/uL Low 4.6-6.2 [facility] Comment on above: Order Comment: CLEAN CATCH Performed By: #### L [id number] #### [facility] [address] [place], [address] RDW SD 42.5 fl Normal 35.1-43.9 [facility] Comment on above: Order Comment: CLEAN CATCH Performed By: #### L [id number] #### [facility] [address] [place], [place], [address] WBC (Bld) [#/Vol] 4.7 10*3/uL Normal 4.4-11.0 [facility] Comment on above: Order Comment: CLEAN CATCH Performed By: #### L [id number] #### [facility] [address] [place], [place], [address] Carbon dioxide measurementOr dered By: Ethan Avendano on 10-29-2024 CO2 [Moles/Vol] 25.1 mmol/L 22.0-29.0 [facility] Chloride measurementOrdered By: Ethan Avendano on 10-29-2024 Chloride [Moles/Vol] 102 mmol/L 96-108 [facility] Creatinine [Moles/Vol]Ordere d By: Ethan Avendano on 10-29-2024 Creatinine [Mass/Vol] 1.0 mg/dL 0.8-1.3 [facility] Eosinophil percentageOrdered By: Ethan Avendano on 10-29-2024 Eosinophils/100 WBC (Bld) 0.0 % 0-5 [facility] Erythrocyte distribution wid th ratioOrdered By: Ethan Avendano on 10-29-2024 Erythrocyte distribution width (RBC) [Ratio] 12.9 % 11.6-14.6 [facility] Erythrocyte distribution wid th standard deviationOrdered By: Ethan Avendano on 10-29-2024 Erythrocyte distribution width (RBC) [Entitic vol] 42.5 fL 35.1-43.9 [facility] Erythrocyte distribution width (RBC) [Ratio] 42.5 fl 35.1-43.9 [facility] Folate measurementOrdered By : Ethan Avendano on 10-29-2024 Folate 32.00 ng/mL 4.60-34.80 [facility] Comment on above: Hemolysis, Results w ill be affected, Requires Recollection. GFR/1.73 sq M.predicted maxine g non-blacks MDRD (S/P/Bld) [Vol rate/Area]Ordered By: Ethan Avendano on 10-29-2024 Estimated GFR (MDRD) Non-Af Amer 86 >60 [facility] Comment on above: mL/min/1.73m2 CKD-EP I Creatinine Equation (2020) Glomerular filtration rate ( GFR) estimation/1.73 sq m using serum, plasma, or whole bOrdered By: Ethan Avendano on 10-29-2024 GFR/1.73 sq M.predicted among non-blacks MDRD (S/P/Bld) [Vol rate/Area] 86 mL/min/{1.73_m2} >60 [facility] Comment on above: mL/min/1.73m2 CKD-EP I Creatinine Equation (2020) Hematocrit Auto (Bld) [Volum e fraction]Ordered By: Ethan Avendano on 10-29-2024 Hematocrit (Bld) [Volume fraction] 41.1 % 40-54 [facility] Hemoglobin A1c percentageOrd ered By: Ethan Avendano on 10-29-2024 HbA1c (Bld) [Mass fraction] 5.8 % >5.7 [facility] Hemoglobin measurementOrdere d By: Ethan Avendano on 10-29-2024 Hemoglobin (Bld) [Mass/Vol] 13.7 g/dL 13.0-16.5 [facility] Immature granulocytes/100 WB C Auto (Bld)Ordered By: Ethan Avendano on 10-29-2024 Immature granulocytes/100 WBC (Bld) 0.400 % 0.0-0.9 [facility] Comment on above: IG% - Immature Granu locytes (promyelocytes, myelocytes and metamyelocytes) > 1% indicates that a LEFT SHIFT is Present. Laboratory - Chemistry and C hemistry - challengeOrdered By: Ethan Avendano on 10-29-2024 AST [Catalytic activity/Vol] 35 U/L <38 [facility] Cobalamin (Vitamin B12) [Mass/Vol] 555 pg/mL 180-914 [facility] Lymphocytes Auto (Unsp spec) [#/Vol]Ordered By: Ethan Avendano on 10-29-2024 Lymphocytes (Bld) [#/Vol] 0.90 10*3/uL 0.83-4.51 [facility] Lymphocytes/100 WBC Auto (Un sp spec)Ordered By: Ethan Avendano on 10-29-2024 Lymphocytes/100 WBC (Bld) 19.3 % 19-41 [facility] MCV (mean corpuscular volume ) determinationOrdered By: Ethan Avendano on 10-29-2024 MCV (RBC) [Entitic vol] 91.5 fL 80-94 [facility] Mean corpuscular hemoglobin (MCH) determinationOrdered By: Ethan Avendano on 10-29-2024 MCH (RBC) [Entitic mass] 30.5 pg 27.0-32.0 [facility] Mean corpuscular hemoglobin concentration (MCHC) determinationOrdered By: Ethan Avendano on 10-29-2024 MCHC (RBC) [Mass/Vol] 33.3 g/dL 32-36 [facility] Mean platelet volume determi nationOrdered By: Ethan Avendano on 10-29-2024 Platelet mean volume (Bld) [Entitic vol] 11.4 fL 6.2-12.0 [facility] Monocyte percentageOrdered B y: Ethan Avendano on 10-29-2024 Monocytes/100 WBC (Bld) 10.7 % High 0-10 [facility] Neutrophil percentageOrdered By: Ethan Avendano on 10-29-2024 Neutrophils/100 WBC (Bld) 69.4 % 47-70 [facility] Nucleated red blood cell per centageOrdered By: Ethan Avendano on 10-29-2024 Nucleated RBC/100 WBC (Bld) [Ratio] 0 % 0-5 [facility] Platelet countOrdered By: Abdulkadir Avendano on 10-29-2024 Platelets (Bld) [#/Vol] 126 10*3/uL Low 150-450 [facility] RBC Auto (Bld) [#/Vol]Ordere d By: Ethan Avendano on 10-29-2024 RBC (Bld) [#/Vol] 4.49 10*6/uL Low 4.6-6.2 [facility] Serum globulin measurementOr dered By: Ethan Avendano on 10-29-2024 Globulin (S) [Mass/Vol] 2.4 g/dL 2.2-4.2 [facility] Serum glucose measurement (m ass/volume)Ordered By: Ethan Avendano on 10-29-2024 Glucose [Mass/Vol] 80 mg/dL 70-99 [facility] Serum or plasma alanine garcia otransferase (ALT) measurementOrdered By: Ethan Avendano on 10-29-2024 ALT [Catalytic activity/Vol] 31 U/L <47 [facility] Serum or plasma albumin john urement (mass/volume)Ordered By: Ethan Avendano on 10-29-2024 Albumin [Mass/Vol] 4.3 g/dL 3.4-4.8 [facility] Serum or plasma albumin/glob ulin mass ratioOrdered By: Ethan Avendano on 10-29-2024 Albumin/Globulin [Mass ratio] 1.8 {ratio} 0.9-2.4 [facility] Serum or plasma alkaline dylon sphatase measurementOrdered By: Ethan Avendano on 10-29-2024 ALP [Catalytic activity/Vol] 63 U/L 40-129 [facility] Serum or plasma anion gap de termination (moles/volume)Ordered By: Ethan Avendano on 10-29-2024 Anion gap [Moles/Vol] 11 mmol/L 5-15 [facility] Serum or plasma calcium john urement (mass/volume)Ordered By: Ethan Avendano on 10-29-2024 Calcium [Mass/Vol] 9.6 mg/dL 7.6-11.0 [facility] Serum or plasma creatinine m easurement (moles/volume)Ordered By: Ethan Avendano on 10-29-2024 Creatinine [Moles/Vol] 1.0 mg/dL 0.8-1.3 [facility] Serum or plasma potassium me asurementOrdered By: Ethan Avendano on 10-29-2024 Potassium [Moles/Vol] 4.5 mmol/L 3.3-5.1 [facility] Serum or plasma sodium measu rement (moles/volume)Ordered By: Ethan Avendano on 10-29-2024 Sodium [Moles/Vol] 138 mmol/L 133-145 [facility] Serum or plasma urea nitroge n measurement (mass/volume)Ordered By: Ethan Avendano on 10-29-2024 Urea nitrogen [Mass/Vol] 15 mg/dL 4-19 [facility] T4 freeOrdered By: Ethan cheng on 10-29-2024 Free T4 [Mass/Vol] 0.90 ng/dL 0.76-1.46 [facility] TSH DL <= 0.005 mIU/L QnOrde red By: Ethan Avendano on 10-29-2024 Thyroid Stimulating Hormone (TSH) 6.000 uIU/mL High 0.300-4.200 [facility] TSH Qn 6.000 uIU/mL High 0.300-4.200 [facility] Total proteinOrdered By: Gaby Avendano on 10-29-2024 Protein [Mass/Vol] 6.7 g/dL 5.9-8.4 [facility] White blood cell (WBC) count Ordered By: Ethan Avendano on 10-29-2024 WBC (Bld) [#/Vol] 4.7 10*3/uL 4.4-11.0 [facility] Barium Enema w/Air Contrasto n 09-11-2024 Barium Enema w/Air Contrast [facility] Services [address] [place] [address] 099851 Barium Enema w/Air Contrast MR#: [id number] Acct: [id number] Name: FRANCISCO RAMOS Rep #: [id number] : 1950 M 74 From: Derick villarreal MD PCP: Dr. Ethan Avendano MD Status: REG CLI Study: Barium Enema w/Air Contrast Date of Exam: 04/28 Exam# [id number] Ordering Dr: Jameel Oseguera -[id number] STUDY: BARIUM ENEMA. REASON FOR EXAM: Male, 74 years old. Incomplete colonoscopy/tortuou s colon FLUOROSCOPY TIME (if supplied): ( 1 minute and 40 seconds ) minutes/seconds. 93.09 mGy. 7 images were obtained. 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 Following this, barium enema [...] Jameel Oseguera MD; Dr. Ethan Avendano MD Shade Matcher: Signed Normal [facility] Colonoscopy Reporton 024 Colonoscopy Report [facility] Medical Records Department [address] [place] [address] Colonoscopy Report MR#: [id number] Acct: [id number] Name: FRANCISCO RAMOS Rep #: [id number] : 1950 74 From: Jameel Oseguera MD PCP: Dr. Ethan Avendano MD Status:[facility] Patient Name: Francisco Ramos Procedure Date: 08/23/2024 [...] barium enema. Procedure Code(s): --- Professional --- 39221, 53, Colonoscopy, flexible; diagnostic, including collection of specimen(s) by brushing or washing, when performed (separate procedure) Diagnosis Code(s): --- Professional --- R19.5, Other fecal abnormalities Q43.8, Other specified congenital malformations of intestine CPT copyright 2021 [employer]. All rights reserved. The codes documented in this report are preliminary and upon chiller tender review may be revised to meet current compliance requirements. Jameel Oseguera MD 08/23/2024 8:53:45 AM This report has been signed electronically. Number of Addenda: 0 Note Initiated On: 08/23/2024 8:12 AM 08/23/24 0854 Date Jameel Oseguera MD Cosigner Signature: Date (if indicated) CC: Dr. Jameel Oseguera MD; Dr. Ethan Avendano MD Date Dictated: 08/23/24811 Date Transcribed: Shade Matcher: HELLEN Signed Normal [facility] MR/POSTOP.ANEon 08-23-2024 MR/POSTOP.ANE [facility] Medical Records Department [address] [place] [address] Anesthesia Postop Eval I 08/23/24 0859 MR#: [id number] Acct: [id number] Name: FRANCISCO RAMOS Rep #: [id number] : 1950 74 From: Herman Villa PCP: Dr. Ethan Avendano MD Status:REG [facility] Race: C Location: [place] [address] Anesthesia: Postop Eval I Current Vital Signs [...] Herman Cruz Signature: Date CC: Signed Normal [facility] MR/JKKOSDHU1dd 08-23-2024 [facility] Medical Records Department [address] [place] [address] Anesthesia Postop Eval II 08/23/24 0911 MR#: [id number] Acct: [id number] Name: FRANCISCO RAMOS Rep #: [id number] : 1950 74 From: Aleksandar Hudson MD PCP: Dr. Ethan Avendano MD Status:REG [facility] Y Race: C Location: [place] [address] Anesthesia Postop Eval I Sum Postop Eval [...] No Vomiting: No 08/23/24 0911 Date Aleksandar Hudson MD Cosigner Signature: Date CC: Signed Normal [facility] MR/Minnie 08-22-2024 /[facility] Medical Records Department [address] [place] [address] PAT - Anesthesia 08/22/24 1525 MR#: [id number] Acct: [id number] Name: FRANCISCO RAMOS Rep #: [id number] : 1950 74 From: Sage Tracey MD PCP: Dr. 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 Hx Hospitalization No 08/22/24 10:23 Any Problems [...] take am of surgery PONV PONV - abseiling instructor: PONV - abseiling instructor Female No 08/22/24 10:23 HX of Motion [...] 07/11/24 11:11 Respiratory Assessment Respiratory Assessment - abseiling instructor: Respiratory Tract Infection Hx - abseiling instructor Hx Respiratory Tract Infection No 08/22/24 10:23 STOP Sleep Apnea STOP Sleep Apnea - abseiling instructor: STOP Sleep Apnea - abseiling instructor Hx Hypertension No 08/22/24 10:23 Hx Sleep [...] Tobacco Use History Tobacco Use History - abseiling instructor: Tobacco Use History - abseiling instructor Tobacco Use Smoking Status Never smoker 08/22/24 10:23 Hx Tobacco Use No 08/22/24 10:23 Years Smoking Packs Smoked per Day Smoking Cessation Date was within the last 15 years Hx Smoking Cessation Date Hx Smoking Cessation Counseling Hematologic Medial History Hematologic Hx - 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 confused, unrespo /Reproduct ion History /Reproduct scott History - abseiling instructor: /Reproduct scott Hx- abseiling instructor Hx Now No 08/22/24 10:23 Gestational Age (in weeks): EDC: Hx Hx Para Hx Section SAB No 08/22/24 10:23 [facility] Medical History (Updated 08/22/24 @ 10:37 by Bebe Nava) Wears glasses Arthritis High cholesterol Easy bruising Back pain Non-smoker History of pain when walking History of echocardiogram History of stress test Cardiology follow-up encounter Parkinson disease Atherosclerosis of coronary artery of [place] without angina pectoris Hyperlipidemia Common variable immunodeficiency Benign prostate hyperplasia Basal cell carcinoma of left ear Home Medications ???Medication ???Instructions ???Recorded ???Last Taken ???Type multivitamin with folic acid 400 1 tab PO DAILY 06/10/13 08/19/24 History mcg tablet folic acid 400 mcg tablet 1 tab PO DAILY 12/24/13 Unknown History immune glob,gamma(IgG) 10 20 g .Route .[id number] 03/04/19 Unknown History pibg-prr-uuwb-IgA 0 to 50 mcg/mL IV solution nitroglycerin 0.4 mg sublingual 0.4 mg sublingual Q5-15M PRN chest 04/03/19 Unknown Rx tablet pain #25 tabs celecoxib 200 mg capsule 200 mg PO BID 06/04 (more content not included)... Normal [facility] Surgery Visit Reporton 07-10 Surgery Visit Report [facility] [address] [place] [address] OFFICE VISIT Date of Service: 07/10/24 MR#: [id number] Acct: [id number] Name: FRANCISCO RAMOS Rep #: [id number] : 1950 Provider: Dr. Jameel workman MD Age/Sex: 74/M Location: [facility] Status: Signed Intake Vital Signs 06/06/24 10:48 [...] History immune glob,gamma(IgG) 10 20 g .Route .[id number] 03/04/19 07/10/24 History gvuq-zvl-mbju-IgA 0 to 50 mcg/mL IV solution nitroglycerin [...] chest CT Atherosclerosis of coronary artery of [place] heart without angina pectoris Basal cell carcinoma [...] No heada (more content not included)... Normal [facility] Absolute lymphocyte countOrd ered By: Ethan Avendano on 11-16-2023 Lymphocytes Auto (Unsp spec) [#/Vol] 0.84 10*3/uL 0.83-4.51 [facility] Automated lymphocyte count a s percentage of total leukocytesOrdered By: Ethan Avendano on 11-16-2023 Lymphocytes/100 WBC Auto (Unsp spec) 22.5 % 19-41 [facility] Basophil percentageOrdered B y: Ethan Avendano on 11-16-2023 Basophils/100 WBC (Bld) 0.0 % 0-1 [facility] Bilirubin [Mass/Vol] 0.70 mg/dL 0.20-1.00 [facility] Comment on above: For patients on eltr ombopag therapy, use of Dimension [place] TBIL is not recommended. Chloride [Moles/Vol] 104 mmol/L 98-107 [facility] Cholesterol [Mass/Vol] 93 mg/dL <200 [facility] Comment on above: <200 mg/dL Desirable 200-240 mg/dL Borderline >240 mg/dL High Risk Eosinophils/100 WBC (Bld) 0.0 % 0-5 [facility] Glucose [Mass/Vol] 90 mg/dL 74-106 [facility] Hemoglobin (Bld) [Mass/Vol] 13.1 g/dL 13.0-16.5 [facility] Monocytes/100 WBC (Bld) 11.5 % 0-10 [facility] Neutrophils (Bld) [#/Vol] 2.5 10*3/uL 2.0-7.7 [facility] Neutrophils/100 WBC (Bld) 65.7 % 47-70 [facility] Potassium [Moles/Vol] 4.0 mmol/L 3.5-5.1 [facility] Protein [Mass/Vol] 6.8 g/dL 6.4-8.2 [facility] Sodium [Moles/Vol] 139 mmol/L 136-145 [facility] Triglyceride [Mass/Vol] 123 mg/dL <199 [facility] Comment on above: The drugs N-Acetylcy steine and Metamizole may falsely depress this assay.Serum Triglycerides Reference Interval Normal <150 mg/dL Borderline high 150 - 199 mg/dL High 200 - 499 mg/dL Very High > or = 500 mg/dL WBC (Bld) [#/Vol] 3.7 10*3/uL 4.4-11.0 [facility] Determination of erythrocyte mean corpuscular volume (MCV)Ordered By: Ethan Avendano on 11-16-2023 MCV (RBC) [Entitic vol] 92.2 fL 80-94 [facility] Erythrocyte distribution wid th ratioOrdered By: Ethan Avendano on 11-16-2023 Erythrocyte distribution width (RBC) [Ratio] 13.2 % 11.6-14.6 [facility] Erythrocyte distribution wid th standard deviationOrdered By: Ethan Avendano on 11-16-2023 Erythrocyte distribution width (RBC) [Entitic vol] 45.0 fL 35.1-43.9 [facility] Hematocrit Auto (Bld) [Volum e fraction]Ordered By: Ethan Avendano on 11-16-2023 Hematocrit (Bld) [Volume fraction] 40.3 % 40-54 [facility] Immature granulocytes/100 WB C Auto (Bld)Ordered By: Ethan Avendano on 11-16-2023 Immature granulocytes/100 WBC (Bld) 0.300 % 0.0-0.9 [facility] Comment on above: IG% - Immature Granu locytes (promyelocytes, myelocytes and metamyelocytes) > 1% indicates that a LEFT SHIFT is Present. Laboratory - Chemistry and C hemistry - challengeOrdered By: Ethan Avendano on 11-16-2023 Albumin/Globulin [Mass ratio] 1.1 {ratio} 0.9-2.4 [facility] ALP [Catalytic activity/Vol] 54 U/L 45-117 [facility] ALT [Catalytic activity/Vol] 26 U/L 16-61 [facility] Cholesterol in HDL [Mass/Vol] 31 mg/dL >40 [facility] Comment on above: The drugs N-Acetylcy steine and Metamizole may falsely depress this assay. Reference Range HDL <40 mg/dL Low HDL Cholesterol HDL >or= 60 mg/dL High HDL Cholesterol Cholesterol in LDL [Mass/Vol] 37 mg/dL 0-130 [facility] CO2 [Moles/Vol] 28.0 mmol/L 21.0-32.0 [facility] Globulin (S) [Mass/Vol] 3.2 g/dL 2.2-4.2 [facility] Urea nitrogen/Creatinine [Mass ratio] 19.2 mg/mg 10-20 [facility] - Hematology and Cell countsOrdered By: Ethan Avendano on 11-16-2023 MCH (RBC) [Entitic mass] 30.0 pg 27.0-32.0 [facility] MCHC (RBC) [Mass/Vol] 32.5 g/dL 32-36 [facility] Nucleated RBC/100 WBC (Bld) [Ratio] 0 % 0-5 [facility] Platelet mean volume (Bld) [Entitic vol] 11.8 fL 6.2-12.0 [facility] Platelets (Bld) [#/Vol] 103 10*3/uL 150-450 [facility] No Panel InformationOrdered By: Ethan Avendano on 11-16-2023 Estimated GFR (MDRD) Amer 109 mL/min >60 [facility] Comment on above: GFR Calc Estimated GFR (MDRD) Non-Af Amer 90 mL/min >60 [facility] Comment on above: Non- GFR Calc VLDL Cholesterol 25 mg/dL 5-40 [facility] RBC Auto (Bld) [#/Vol]Ordere d By: Ethan Avendano on 11-16-2023 RBC (Bld) [#/Vol] 4.37 10*6/uL 4.6-6.2 [facility] Serum or plasma calcium john urement (mass/volume)Ordered By: Ethan Avendano on 11-16-2023 Calcium [Mass/Vol] 9.1 mg/dL 8.5-10.1 [facility] Serum or plasma creatinine m easurement (mass/volume)Ordered By: Ethan Avendano on 11-16-2023 Creatinine [Mass/Vol] 0.89 mg/dL 0.70-1.30 [facility] Comment on above: The validity of the calculated GFR & GFRAA in patients over 70 years has not been determined. Clinical correlation is essential. Serum or plasma urea nitroge n measurement (mass/volume)Ordered By: Ethan Avendano on 11-16-2023 Urea nitrogen [Mass/Vol] 17 mg/dL 7-18 [facility] Thin prep Papanicolaou smear with manual screeningOrdered By: Ethan Avendano on 11-16-2023 Thin prep Papanicolaou smear with manual screening 3.6 g/dL 3.2-5.0 [facility] Thin prep Papanicolaou smear with manual screening 26 U/L 15-37 [facility] Thin prep Papanicolaou smear with manual screening 7 5-15 [facility] CNTHERAPYon 10-06-2023 CNTHERAPY OT/PT/Speech Visit (OTNOCA) ---- FRANCISCO RAMOS ([id number]) 1950 M Date Time Provider Department 10/06/23 1:30 PM [facility] Date Time Provider Department Center 10/06/2023 1:30 PM [id number] Reason for Visit: OT Discharge [750] OT EVAL [748] Primary Visit Diagnosis:Parkinson 's disease, unspecified whether dyskinesia present, unspecified whether manifestations fluctuate [G20.A1] Other Visit Diagnoses:Abnormali ty of gait and mobility [R26.9] Abnormal coordination [R27.8] Irregular eye movements [H55.89] Allergies As of Date: 10/06/2023 Noted Allergy Reaction dust,mold grass [Other] 11/10/2005 Date Reviewed: 12/29/2022 Reviewed by: Latsiha Robles MD - Fully Assessed Prescriptions as [...] one(1) tablet daily. Letter Text Letter Text [facility] No Panel InformationOrdered By: Blaine Lee on 03-23-2023 Prostate Specific Antigen Screen 4.24 ng/mL 0.00-4.00 [facility] Comment on above: This test was perfor med using the TPSA assay method for the[employer]izard chemistry system. Values obtained with differentassay methods cannot be used interchangably.When changing PSA assays in the course of monitoring apatient, additional sequential testing should be carriedout to confirm baseline values. Basophil percentageOrdered B y: Lory He on 02-01-2023 Bilirubin [Mass/Vol] 0.50 mg/dL 0.20-1.00 [facility] Comment on above: For patients on eltr ombopag therapy, use of Dimension [place] TBIL is not recommended. Cholesterol [Mass/Vol] 82 mg/dL <200 [facility] Comment on above: <200 mg/dL Desirable 200-240 mg/dL Borderline >240 mg/dL High Risk Protein [Mass/Vol] 6.9 g/dL 6.4-8.2 [facility] Triglyceride [Mass/Vol] 93 mg/dL <199 [facility] Comment on above: The drugs N-Acetylcy steine and Metamizole may falsely depress this assay.Serum Triglycerides Reference Interval Normal <150 mg/dL Borderline high 150 - 199 mg/dL High 200 - 499 mg/dL Very High > or = 500 mg/dL Direct bilirubinOrdered By: Lory He on 02-01-2023 Bilirubin.direct [Mass/Vol] 0.12 mg/dL 0.00-0.30 [facility] - Chemistry and C hemistry - challengeOrdered By: Lory He on 02-01-2023 ALP [Catalytic activity/Vol] 71 U/L 45-117 [facility] ALT [Catalytic activity/Vol] 15 U/L 16-61 [facility] Globulin (S) [Mass/Vol] 3.4 g/dL 2.2-4.2 [facility] Serum or plasma albumin john urement (mass/volume)Ordered By: Lory He on 02-01-2023 Albumin [Mass/Vol] 3.5 g/dL 3.2-5.0 [facility] Serum or plasma cholesterol in HDL measurement (mass/volume)Ordered By: Lory He on 02-01-2023 Cholesterol in HDL [Mass/Vol] 29 mg/dL >40 [facility] Comment on above: The drugs N-Acetylcy steine and Metamizole may falsely depress this assay. Reference Range HDL <40 mg/dL Low HDL Cholesterol HDL >or= 60 mg/dL High HDL Cholesterol Serum or plasma cholesterol in VLDL measurement (mass/volume)Ordered By: Lory He on 02-01-2023 Cholesterol in VLDL [Mass/Vol] 19 mg/dL 5-40 [facility] Serum or plasma low density lipoprotein (LDL) cholesterol measurement (mass/volume)Ordered By: Lory He on 02-01-2023 Cholesterol in LDL [Mass/Vol] 34 mg/dL 0-130 [facility] Thin prep Papanicolaou smear with manual screeningOrdered By: Lory He on 02-01-2023 Thin prep Papanicolaou smear with manual screening 30 U/L 15-37 [facility] CNOVon 12-29-2022 CNOV Office Visit (NRMDN) ---- FRANCISCO RAMOS ([id number]) 1950 M Date Time Provider Department 12/29/22 [...] or you can send a message through [employer]. You can also now schedule and select appointments through [employer]. MD Latisha Ta MD 12/29/2022 10:53 AM [...] last fall. torn rotator cuff. [employer]- spectates more than helping Difficulties turning in bed: yes Difficulties getting out of bed, car or chair: difficult but can do it. Tremors/Gait/Balanc e Shaking or tremors: yes Walking and balance [...] Exercise: Last PT Date: Last OT Date: Date: Exercises Regularly: Yes PD exercise classes, Mellisa, etc Review of Systems Review of Systems Constitutional Positive for Fa (more content not included)... Normal [facility] Absolute lymphocyte countOrd ered By: Dr. Avendano on 07-07-2022 Lymphocytes Auto (Unsp spec) [#/Vol] 0.77 10*3/uL 0.83-4.51 [facility] Basophil percentageOrdered B y: Dr. Avendano on 07-07-2022 Basophils/100 WBC (Bld) 0.0 % 0-1 [facility] Bilirubin [Mass/Vol] 0.50 mg/dL 0.20-1.00 [facility] Comment on above: For patients on eltr ombopag therapy, use of Dimension [place] TBIL is not recommended. Chloride [Moles/Vol] 104 mmol/L 98-107 [facility] Eosinophils/100 WBC (Bld) 0.0 % 0-5 [facility] Glucose [Mass/Vol] 114 mg/dL 74-106 [facility] Comment on above: Fasting Glucose resu lt from 100 to 125 mg/dL suggests IMPAIRED HOMEOSTASIS per A.D.A. criteria. Neutrophils (Bld) [#/Vol] 3.7 10*3/uL 2.0-7.7 [facility] Neutrophils/100 WBC (Bld) 74.9 % 47-70 [facility] Potassium [Moles/Vol] 4.3 mmol/L 3.5-5.1 [facility] Protein [Mass/Vol] 6.8 g/dL 6.4-8.2 [facility] Sodium [Moles/Vol] 136 mmol/L 136-145 [facility] WBC (Bld) [#/Vol] 4.9 10*3/uL 4.4-11.0 [facility] Blood erythrocytes count (nu mber/volume)Ordered By: Dr. Avendano on 07-07-2022 RBC (Bld) [#/Vol] 4.38 10*6/uL 4.6-6.2 [facility] Blood hemoglobin measurement (mass/volume)Ordered By: Dr. Avendano on 07-07-2022 Hemoglobin (Bld) [Mass/Vol] 13.8 g/dL 13.0-16.5 [facility] Blood lymphocytes/100 leukoc ytesOrdered By: Dr. Avendano on 07-07-2022 Lymphocytes/100 WBC (Bld) 15.6 % 19-41 [facility] Blood monocytes/100 leukocyt esOrdered By: Dr. Avendano on 07-07-2022 Monocytes/100 WBC (Bld) 9.1 % 0-10 [facility] Blood platelet mean volumeOr dered By: Dr. Avendano on 07-07-2022 Platelet mean volume (Bld) [Entitic vol] 12.0 fL 6.2-12.0 [facility] Determination of erythrocyte mean corpuscular volume (MCV)Ordered By: Dr. Avendano on 07-07-2022 MCV (RBC) [Entitic vol] 94.1 fL 80-94 [facility] Hematocrit Auto (Bld) [Volum e fraction]Ordered By: Dr. Avendano on 07-07-2022 Hematocrit (Bld) [Volume fraction] 41.2 % 40-54 [facility] Laboratory - Chemistry and C hemistry - challengeOrdered By: Dr. Avendano on 07-07-2022 ALP [Catalytic activity/Vol] 59 U/L 45-117 [facility] ALT [Catalytic activity/Vol] 39 U/L 16-61 [facility] CO2 [Moles/Vol] 29.0 mmol/L 21.0-32.0 [facility] Globulin (S) [Mass/Vol] 3.1 g/dL 2.2-4.2 [facility] Urea nitrogen/Creatinine [Mass ratio] 28.5 mg/mg 10-20 [facility] Laboratory - Hematology and Cell countsOrdered By: Dr. Avendano on 07-07-2022 Erythrocyte distribution width (RBC) [Entitic vol] 43.1 fL 35.1-43.9 [facility] Erythrocyte distribution width (RBC) [Ratio] 12.4 % 11.6-14.6 [facility] Immature granulocytes/100 WBC (Bld) 0.400 % 0.0-0.9 [facility] Comment on above: IG% - Immature Granu locytes (promyelocytes, myelocytes and metamyelocytes) > 1% indicates that a LEFT SHIFT is Present. MCH (RBC) [Entitic mass] 31.5 pg 27.0-32.0 [facility] Nucleated RBC/100 WBC (Bld) [Ratio] 0 % 0-5 [facility] MCHC Auto (RBC) [Mass/Vol]Or dered By: Dr. Avendano on 07-07-2022 MCHC (RBC) [Mass/Vol] 33.5 g/dL 32-36 [facility] No Panel InformationOrdered By: Dr. Avendano on 07-07-2022 Estimated GFR (MDRD) Amer 135 mL/min >60 [facility] Comment on above: GFR Calc Estimated GFR (MDRD) Non-Af Amer 112 mL/min >60 [facility] Comment on above: Non- GFR Calc Platelets bldOrdered By: Dr. Avendano on 07-07-2022 Platelets (Bld) [#/Vol] 112 10*3/uL 150-450 [facility] Serum or plasma albumin john urement (mass/volume)Ordered By: Dr. Avendano on 07-07-2022 Albumin [Mass/Vol] 3.7 g/dL 3.2-5.0 [facility] Serum or plasma albumin/glob ulin mass ratioOrdered By: Dr. Avendano on 07-07-2022 Albumin/Globulin [Mass ratio] 1.2 {ratio} 0.9-2.4 [facility] Serum or plasma calcium john urement (mass/volume)Ordered By: Dr. Avendano on 07-07-2022 Calcium [Mass/Vol] 9.2 mg/dL 8.5-10.1 [facility] Serum or plasma creatinine m easurement (mass/volume)Ordered By: Dr. Avendano on 07-07-2022 Creatinine [Mass/Vol] 0.74 mg/dL 0.70-1.30 [facility] Comment on above: The validity of the calculated GFR & GFRAA in patients over 70 years has not been determined. Clinical correlation is essential. Serum or plasma urea nitroge n measurement (mass/volume)Ordered By: Dr. Avendano on 07-07-2022 Urea nitrogen [Mass/Vol] 21 mg/dL 7-18 [facility] Thin prep Papanicolaou smear with manual screeningOrdered By: Dr. Avendano on 07-07-2022 Thin prep Papanicolaou smear with manual screening 26 U/L 15-37 [facility] Thin prep Papanicolaou smear with manual screening 3 5-15 [facility] Absolute immature granulocyt e counton 12-02-2021 Immature granulocytes (Bld) [#/Vol] 0 10*3/uL 0.0-0.1 [facility] Work Phone: Absolute lymphocyte counton 12-02-2021 Lymphocytes Auto (Unsp spec) [#/Vol] 0.87 10*3/uL 0.83-4.51 [facility] Work Phone: Lymphocytes Auto (Unsp spec) [#/Vol] 1.0 10*3/uL 0.7-3.1 [facility] Work Phone: Basophil percentageon 2021 Basophils/100 WBC (Bld) 0.2 % 0-1 [facility] Work Phone: Bilirubin [Mass/Vol] 0.70 mg/dL 0.20-1.00 [facility] Work Phone: Comment on above: For patients on eltr ombopag therapy, use of Dimension [place] TBIL is not recommended. Chloride [Moles/Vol] 106 mmol/L 98-107 [facility] Work Phone: [phone] Cholesterol [Mass/Vol] 80 mg/dL <200 [facility] Work Phone: Comment on above: <200 mg/dL Desirable 200-240 mg/dL Borderline >240 mg/dL High Risk Eosinophils/100 WBC (Bld) 0.0 % 0-5 [facility] Work Phone: [phone] Glucose [Mass/Vol] 94 mg/dL 74-106 [facility] Work Phone: [phone] Monocytes (Bld) [#/Vol] 0.4 10*3/uL 0.1-0.9 [facility] Work Phone: [phone] Neutrophils (Bld) [#/Vol] 4.2 10*3/uL 2.0-7.7 [facility] Work Phone: Neutrophils (Bld) [#/Vol] 4.4 10*3/uL 1.4-7.0 [facility] Work Phone: [phone] Neutrophils/100 WBC (Bld) 75.8 % 47-70 [facility] Work Phone: [phone] Potassium [Moles/Vol] 4.3 mmol/L 3.5-5.1 [facility] Work Phone: Protein [Mass/Vol] 6.8 g/dL 6.4-8.2 [facility] Work Phone: Sodium [Moles/Vol] 136 mmol/L 136-145 [facility] Work Phone: [phone] Triglyceride [Mass/Vol] 99 mg/dL <199 [facility] Work Phone: [phone] Comment on above: The drugs N-Acetylcy steine and Metamizole may falsely depress this assay.Serum Triglycerides Reference Interval Normal <150 mg/dL Borderline high 150 - 199 mg/dL High 200 - 499 mg/dL Very High > or = 500 mg/dL WBC (Bld) [#/Vol] 5.9 10*3/uL 3.4-10.8 [facility] Work Phone: Basophils/100 WBC Auto (Bld) on 12-02-2021 Basophils/100 WBC (Bld) 0 % Not Estab. [facility] Work Phone: Blood basophils count (numbe r/volume)on 12-02-2021 Basophils (Bld) [#/Vol] 0 10*3/uL 0.0-0.2 [facility] Work Phone: Blood eosinophils count (num nadiya/volume)on 12-02-2021 Eosinophils (Bld) [#/Vol] 0 10*3/uL 0.0-0.4 [facility] Work Phone: Blood hematocrit (volume fra ction)on 12-02-2021 Hematocrit (Bld) [Volume fraction] 41.1 % 37.5-51.0 [facility] Work Phone: Blood hemoglobin measurement (mass/volume)on 12-02-2021 Hemoglobin (Bld) [Mass/Vol] 13.6 g/dL 13.0-17.7 [facility] Work Phone: Blood immature cells/100 sherita kocyteson 12-02-2021 Immature cells/100 WBC (Bld) TNP [facility] Work Phone: Comment on above: Test not performed Blood immature granulocytes/ 100 leukocyteson 12-02-2021 Immature granulocytes/100 WBC (Bld) 0 % Not Estab. [facility] Work Phone: Blood lymphocytes/100 leukoc yteson 12-02-2021 Lymphocytes/100 WBC (Bld) 15.7 % 19-41 [facility] Work Phone: Blood monocytes/100 leukocyt eson 12-02-2021 Monocytes/100 WBC (Bld) 7.8 % 0-10 [facility] Work Phone: Blood platelet mean volumeon 12-02-2021 Platelet mean volume (Bld) [Entitic vol] 11.9 fL 6.2-12.0 [facility] Work Phone: CD3+CD8+ (T8 suppressor cell s) cells/100 cells (Bld)on 12-02-2021 CD3+CD8+ (T8 suppressor cells) cells (Bld) [#/Vol] 323 /uL 109-897 [facility] Work Phone: Count of whole blood cells p ositive for CD3 and CD4 antigens (number/volume)on 12-02-2021 CD3+CD4+ (T4 helper) cells (Bld) [#/Vol] 284 /uL [phone] [facility] Work Phone: Eosinophils/100 WBC Auto (Bl d)on 12-02-2021 Eosinophils/100 WBC (Bld) 0 % Not Estab. [facility] Work Phone: Erythrocyte distribution wid th ratioon 12-02-2021 Erythrocyte distribution width (RBC) [Ratio] 13.0 % 11.6-15.4 [facility] Work Phone: Interpretation of morphologi c examination of blood (narrative result)on 12-02-2021 Morphology Frizt (Bld) [Interp] TNP [facility] Work Phone: Comment on above: Test not performed Laboratory - Chemistry and C hemistry - challengeon 12-02-2021 ALP [Catalytic activity/Vol] 65 U/L 45-117 [facility] Work Phone: ALT [Catalytic activity/Vol] 15 U/L 16-61 [facility] Work Phone: CO2 [Moles/Vol] 26.0 mmol/L 21.0-32.0 [facility] Work Phone: Globulin (S) [Mass/Vol] 3.1 g/dL 2.2-4.2 [facility] Work Phone: Urea nitrogen/Creatinine [Mass ratio] 26.2 mg/mg 10-20 [facility] Work Phone: Laboratory - Hematology and Cell countson 12-02-2021 Erythrocyte distribution width (RBC) [Entitic vol] 43.1 fL 35.1-43.9 [facility] Work Phone: Erythrocyte distribution width (RBC) [Ratio] 12.8 % 11.6-14.6 [facility] Work Phone: Immature granulocytes/100 WBC (Bld) 0.500 % 0.0-0.9 [facility] Work Phone: Comment on above: IG% - Immature Granu locytes (promyelocytes, myelocytes and metamyelocytes) > 1% indicates that a LEFT SHIFT is Present. Nucleated RBC/100 WBC (Bld) [Ratio] 0 % 0-5 [facility] Work Phone: Lymphocytes/100 WBC Auto (Bl d)on 12-02-2021 Lymphocytes/100 WBC (Bld) 18 % Not Estab. [facility] Work Phone: MCHC Auto (RBC) [Mass/Vol]on 12-02-2021 MCHC (RBC) [Mass/Vol] 33.1 g/dL 31.5-35.7 [facility] Work Phone: Neutrophils Auto (Bld) [#/Vo l]on 12-02-2021 Neutrophils/100 WBC (Bld) 75 % Not Estab. [facility] Work Phone: No Panel Informationon 12-02 Estimated GFR (MDRD) Amer 116 mL/min >60 [facility] Work Phone: Comment on above: GFR Calc Estimated GFR (MDRD) Non-Af Amer 96 mL/min >60 [facility] Work Phone: Comment on above: Non- GFR Calc Prostate Specific Antigen Total 3.21 ng/mL 0.0-4.0 [facility] Work Phone: Comment on above: This test was perfor med using the TPSA assay method for Locally chemistry system. Values obtained with differentassay methods cannot be used interchangably.When changing PSA assays in the course of monitoring apatient, additional sequential testing should be carriedout to confirm baseline values. Percentage of whole blood ce lls positive for CD3 and CD4 antigenson 12-02-2021 CD3+CD4+ (T4 helper) cells/100 cells (Bld) 28.4 % 30.8-58.5 [facility] Work Phone: Percentage of whole blood ce lls positive for CD3 and CD8 antigenson 12-02-2021 CD3+CD8+ (T8 suppressor cells) cells/100 cells (Bld) 32.3 % 12.0-35.5 [facility] Work Phone: Platelets bldon 12-02-2021 Platelets (Bld) [#/Vol] 103 10*3/uL 150-450 [facility] Work Phone: RBC Auto (Bld) [#/Vol]on RBC (Bld) [#/Vol] 4.41 10*6/uL 4.14-5.80 [facility] Work Phone: Ratio of whole blood cells p ositive for CD3 and CD4 antigens to cells positive for CDon 12-02-2021 CD3+CD4+ (T4 helper) cells/CD3+CD8+ (T8 suppressor cells) cells (Bld) [# ratio] 0.88 % 0.92-3.72 [facility] Work Phone: Serum or plasma IgA measurem ent (mass/volume)on 12-02-2021 IgA [Mass/Vol] mg/dL 61-437 [facility] Work Phone: Comment on above: Result confirmed on concentration. Serum or plasma IgG measurem ent (mass/volume)on 12-02-2021 IgG [Mass/Vol] 723 mg/dL [phone] [facility] Work Phone: Serum or plasma IgM measurem ent (mass/volume)on 12-02-2021 IgM [Mass/Vol] mg/dL 20-172 [facility] Work Phone: Comment on above: Result confirmed on concentration.Performed at: [facility] [id number] Director: Rm Tyson PhD, Phone: [phone] Serum or plasma albumin john urement (mass/volume)on 12-02-2021 Albumin [Mass/Vol] 3.7 g/dL 3.2-5.0 [facility] Work Phone: Serum or plasma albumin/glob ulin mass ratioon 12-02-2021 Albumin/Globulin [Mass ratio] 1.2 {ratio} 0.9-2.4 [facility] Work Phone: Serum or plasma calcium john urement (mass/volume)on 12-02-2021 Calcium [Mass/Vol] 8.8 mg/dL 8.5-10.1 [facility] Work Phone: Serum or plasma cholesterol in HDL measurement (mass/volume)on 12-02-2021 Cholesterol in HDL [Mass/Vol] 27 mg/dL >40 [facility] Work Phone: Comment on above: The drugs N-Acetylcy steine and Metamizole may falsely depress this assay. Reference Range HDL <40 mg/dL Low HDL Cholesterol HDL >or= 60 mg/dL High HDL Cholesterol Serum or plasma cholesterol in VLDL measurement (mass/volume)on 12-02-2021 Cholesterol in VLDL [Mass/Vol] 20 mg/dL 5-40 [facility] Work Phone: Serum or plasma creatinine m easurement (mass/volume)on 12-02-2021 Creatinine [Mass/Vol] 0.84 mg/dL 0.70-1.30 [facility] Work Phone: Comment on above: The validity of the calculated GFR & GFRAA in patients over 70 years has not been determined. Clinical correlation is essential. Serum or plasma low density lipoprotein (LDL) cholesterol measurement (mass/volume)on 12-02-2021 Cholesterol in LDL [Mass/Vol] 33 mg/dL 0-130 [facility] Work Phone: Serum or plasma urea nitroge n measurement (mass/volume)on 12-02-2021 Urea nitrogen [Mass/Vol] 22 mg/dL 7-18 [facility] Work Phone: Thin prep Papanicolaou smear with manual screeningon 12-02-2021 Thin prep Papanicolaou smear with manual screening 34 U/L 15-37 [facility] Work Phone: Thin prep Papanicolaou smear with manual screening 4 5-15 [facility] Work Phone: Thin prep Papanicolaou smear with manual screening 93 fL 79-97 [facility] Work Phone: Thin prep Papanicolaou smear with manual screening 30.8 pg 26.6-33.0 [facility] Work Phone: Thin prep Papanicolaou smear with manual screening 7 % Not Estab. [facility] Work Phone: NM BRAIN DATSCANon 9 [...] Date: 08/08/2019 8:56:11 AM Ordering Provider:Aureliano Ferguson [facility] ([place]) Vital Signs Date Time Vital Sign Value Performing Clinician Facility 05-07-2025 13:22-0400 Body height 170.[address] Ethan Avendano MD Work Phone: [phone])307-538247 [address] 05-07-2025 13:22-0400 Body mass index (BMI) [Ratio] 21.9 kg/m2 Dr. Ethan Avendano MD Work Phone: 3(587)[phone] [place] [address] 05-07-2025 13:22-0400 Body temperature 96.7 [degF] Dr. Ethan Avendano MD Work Phone: 9(702)808-861527 [place] [address] 05-07-2025 13:22-0400 Body weight 63.[address] Ethan Avendano MD Work Phone: 6(833)[phone] [place] [address] 05-07-2025 13:22-0400 Diastolic blood pressure 67 mm[Hg] Dr. Ethan Avnedano MD Work Phone: 0(291)[phone] [place] [address] 05-07-2025 13:22-0400 Heart rate 86 /min Dr. Ethan Avendano MD Work Phone: 6(736)376-315427 [place] [address] 05-07-2025 13:22-0400 Respiratory rate 16 /min Dr. Ethan Avendano MD Work Phone: 1(509)678-208527 [place] [address] 05-07-2025 13:22-0400 SaO2% (BldA) [Mass fraction] 100 % Dr. Ethan Avendano MD Work Phone: 6(597)[phone] [place] [address] 05-07-2025 13:22-0400 Systolic blood pressure 129 mm[Hg] Dr. Ethan Avendano MD Work Phone: 4(800)377-042227 [place] [address] 04-09-2025 13:06-0400 Body height 172.[address] Ethan Avendano MD Work Phone: 9(791)710-941927 [place] [address] 04-09-2025 13:06-0400 Body mass index (BMI) [Ratio] 21.2 kg/m2 Dr. Ethan Avendano MD Work Phone: 3(039)058-608847 [address] 04-09-2025 13:06-0400 Body temperature 97.3 [degF] Dr. Ethan Avendano MD Work Phone: 8(503)[phone] [place] [address] 04-09-2025 13:06-0400 Body weight 63.[address] Ethan Avendano MD Work Phone: 4(904)641-758627 [place] [address] 04-09-2025 13:06-0400 Diastolic blood pressure 59 mm[Hg] Dr. Ethan Avendano MD Work Phone: 5(322)600-744727 [place] [address] 04-09-2025 13:06-0400 Heart rate 91 /min Dr. Ethan Avendano MD Work Phone: 5(949)329-085427 [place] [address] 04-09-2025 13:06-0400 Respiratory rate 16 /min Dr. Ethan Avendano MD Work Phone: 2(776)[phone] [place] [address] 04-09-2025 13:06-0400 SaO2% (BldA) [Mass fraction] 100 % Dr. Ethan Avendano MD Work Phone: 4(167)789-550127 [place] [address] 04-09-2025 13:06-0400 Systolic blood pressure 111 mm[Hg] Dr. Ethan Avendano MD Work Phone: 3(076)045-067727 [place] [address] 03-27-2025 08:10-0400 SaO2% (BldA) [Mass fraction] 96 % Dr. Ethan Avendano MD Work Phone: 4(962)901-232027 [place] [address] 03-27-2025 08:06-0400 Body temperature 97.7 [degF] Dr. Ethan Avendano MD Work Phone: 6(507)[phone] [place] [address] 03-27-2025 08:06-0400 Diastolic blood pressure 65 mm[Hg] Dr. Ethan Avendano MD Work Phone: 8(829)327-664627 [place] [address] 03-27-2025 08:06-0400 Heart rate 88 /min Dr. Ethan Avendano MD Work Phone: 0(706)[phone] [place] [address] 03-27-2025 08:06-0400 Respiratory rate 18 /min Dr. Ethan Avendano MD Work Phone: 5(345)208-873927 [place] [address] 03-27-2025 08:06-0400 Systolic blood pressure 125 mm[Hg] Dr. Ethan Avendano MD Work Phone: 7(618)742-790586 [place] [address] 03-26-2025 23:43-0400 Body mass index (BMI) [Ratio] 20.9 kg/m2 Dr. Ethan Avendano MD Work Phone: 8(251)326-497227 [place] [address] 03-26-2025 23:43-0400 Body weight 62.[address] Ethan Avendano MD Work Phone: 3(200)288-107827 [place] [address] 03-26-2025 01:14-0400 Body height 172.[address] Ethan Avendano MD Work Phone: 6(410)441-075527 [place] [address] 2025 23:36-0400 Body temperature 98.1 [degF] Dr. Ethan Avendano MD Work Phone: 6(813)042-224027 [place] [address] 2025 23:36-0400 Diastolic blood pressure 88 mm[Hg] Dr. Ethan Avendano MD Work Phone: 0(198)738-149027 [place] [address] 2025 23:36-0400 Heart rate 105 /min Dr. Ethan Avendano MD Work Phone: 6(403)712-014227 [place] [address] 2025 23:36-0400 Respiratory rate 18 /min Dr. Ethan Avendano MD Work Phone: 3(052)825-337027 [place] [address] 2025 23:36-0400 SaO2% (BldA) [Mass fraction] 95 % Dr. Ethan Aevndano MD Work Phone: 8(415)520-148527 [place] [address] 2025 23:36-0400 Systolic blood pressure 138 mm[Hg] Dr. Ethan Avendano MD Work Phone: 3(481)277-669927 [place] [address] 2025 20:42-0400 Body height 170.[address] Ethan Avendano MD Work Phone: 3(043)[phone] [place] [address] 2025 20:42-0400 Body mass index (BMI) [Ratio] 23 kg/m2 Dr. Ethan Avendano MD Work Phone: 8(707)869-420627 [place] [address] 2025 20:42-0400 Body weight 66.[address] Ethan Avendano MD Work Phone: [facility] 03-21-2025 05:02-0400 Body temperature 97.59 [degF] Bhanu Nicela DO Work Phone: [facility] 03-21-2025 05:02-0400 Diastolic blood pressure 89 mm[Hg] Bhanu Urbankola DO Work Phone: [facility] 03-21-2025 05:02-0400 Heart rate 89 /min Bhanu Arletla DO Work Phone: [facility] 03-21-2025 05:02-0400 Respiratory rate 16 /min Bhanu Arletla DO Work Phone: [facility] 03-21-2025 05:02-0400 SaO2% (BldA) [Mass fraction] 97 % Bhanu Nicela DO Work Phone: [facility] 03-21-2025 05:02-0400 Systolic blood pressure 146 mm[Hg] Bhanu Arletla DO Work Phone: [facility] 03-19-2025 12:28-0400 Body height 172.7 cm Bhanu Arletla DO Work Phone: [facility] 03-16-2025 06:20-0400 Body mass index (BMI) [Ratio] 21.29 kg/m2 Bhanu Nicela DO Work Phone: [facility] 03-16-2025 06:20-0400 Body weight 63.5 kg Bhanu Nicela DO Work Phone: [facility] 03-16-2025 04:39-0400 Body temperature 98.3 [degF] Dr. Ethan Avendano MD Work Phone: [facility] 03-16-2025 04:39-0400 Diastolic blood pressure 75 mm[Hg] Dr. Ethan Avendano MD Work Phone: [facility] 03-16-2025 04:39-0400 Heart rate 88 /min Dr. Ethan Avendano MD Work Phone: 3(111)782-855886 [place] [address] 03-16-2025 04:39-0400 Respiratory rate 18 /min Dr. Ethan Avendano MD Work Phone: 5(738)652-304627 [place] [address] 03-16-2025 04:39-0400 SaO2% (BldA) [Mass fraction] 97 % Dr. Ethan Avendano MD Work Phone: 5(947)291-894527 [place] [address] 03-16-2025 04:39-0400 Systolic blood pressure 116 mm[Hg] Dr. Ethan Avendano MD Work Phone: 8(098)523-737227 [place] [address] 03-15-2025 21:18-0400 Body height 170.[address] Ethan Avendano MD Work Phone: 3(257)165-389627 [place] [address] 03-15-2025 21:18-0400 Body mass index (BMI) [Ratio] 22.7 kg/m2 Dr. Ethan Avendano MD Work Phone: 3(209)757-953627 [place] [address] 03-15-2025 21:18-0400 Body weight 65.[address] Ethan Avendano MD Work Phone: 6(399)628-289727 [place] [address] 03-05-2025 11:26-0400 Body height 170.[address] Ethan Avendano MD Work Phone: 6(437)199-330727 [place] [address] 03-05-2025 11:26-0400 Body mass index (BMI) [Ratio] 22.7 kg/m2 Dr. Ethan Avendano MD Work Phone: 8(277)309-822786 [place] [address] 03-05-2025 11:26-0400 Body temperature 96.3 [degF] Dr. Ethan Avendano MD Work Phone: 8(759)565-469527 [place] [address] 03-05-2025 11:26-0400 Body weight 65.[address] Ethan Avendano MD Work Phone: 7(069)679-392827 [place] [address] 03-05-2025 11:26-0400 Diastolic blood pressure 62 mm[Hg] Dr. Ethan Avendano MD Work Phone: 6(719)073-532427 [place] [address] 03-05-2025 11:26-0400 Heart rate 97 /min Dr. Ethan Avendano MD Work Phone: 1(371)199-329886 [place] [address] 03-05-2025 11:26-0400 Respiratory rate 16 /min Dr. Ethan Avendano MD Work Phone: 4(525)679-525527 [place] [address] 03-05-2025 11:26-0400 SaO2% (BldA) [Mass fraction] 97 % Dr. Ethan Avendano MD Work Phone: 8(128)561-129086 [place] [address] 03-05-2025 11:26-0400 Systolic blood pressure 118 mm[Hg] Dr. Ethan Avendano MD Work Phone: 4(840)266-763527 [place] [address] 02-05-2025 09:47-0400 Body height 170.[address] Ethan Avendano MD Work Phone: 0(509)085-444127 [place] [address] 02-05-2025 09:47-0400 Body mass index (BMI) [Ratio] 24.1 kg/m2 Dr. Ethan Avendano MD Work Phone: 0(823)289-824927 [place] [address] 02-05-2025 09:47-0400 Body temperature 97.9 [degF] Dr. Ethan Avendano MD Work Phone: 8(467)359-594827 [place] [address] 02-05-2025 09:47-0400 Body weight 69.[address] Ethan Avendano MD Work Phone: 0(132)478-749127 [place] [address] 02-05-2025 09:47-0400 Diastolic blood pressure 62 mm[Hg] Dr. Ethan Avendano MD Work Phone: 5(934)984-163427 [place] [address] 02-05-2025 09:47-0400 Heart rate 86 /min Dr. Ethan Avendano MD Work Phone: 8(940)822-550927 [place] [address] 02-05-2025 09:47-0400 Respiratory rate 16 /min Dr. Ethan Avendano MD Work Phone: 3(101)576-220627 [place] [address] 02-05-2025 09:47-0400 SaO2% (BldA) [Mass fraction] 98 % Dr. Ethan Avendano MD Work Phone: 5(246)816-415586 [place] [address] 02-05-2025 09:47-0400 Systolic blood pressure 114 mm[Hg] Dr. Ethan Avendano MD Work Phone: [facility] 01-02-2025 10:58-0400 Body height 170.[address] Ethan Avendano MD Work Phone: [facility] 01-02-2025 10:58-0400 Body mass index (BMI) [Ratio] 23.8 kg/m2 Dr. Ethan Avendano MD Work Phone: 8(392)562-314086 [place] [address] 01-02-2025 10:58-0400 Body temperature 97.2 [degF] Dr. Ethan Avendano MD Work Phone: 7(955)212-568227 [place] [address] 01-02-2025 10:58-0400 Body weight 68.[address] Ethan Avendano MD Work Phone: 9(029)560-694227 [place] [address] 01-02-2025 10:58-0400 Diastolic blood pressure 76 mm[Hg] Dr. Ethan Avendano MD Work Phone: 9(928)885-969327 [place] [address] 01-02-2025 10:58-0400 Heart rate 82 /min Dr. Ehtan Avendano MD Work Phone: 0(811)676-793127 [place] [address] 01-02-2025 10:58-0400 Respiratory rate 16 /min Dr. Ethan Avendano MD Work Phone: 4(778)437-957127 [place] [address] 01-02-2025 10:58-0400 SaO2% (BldA) [Mass fraction] 100 % Dr. Ethan Avendano MD Work Phone: [facility] 01-02-2025 10:58-0400 Systolic blood pressure 116 mm[Hg] Dr. Ethan Avendano MD Work Phone: 4(076)834-765486 [place] [address] 12-05-2024 11:09-0400 Body height 170.[address] Ethan Avendano MD Work Phone: 4(554)656-246147 [address] 12-05-2024 11:09-0400 Body temperature 96.3 [degF] Dr. Ethan Avendano MD Work Phone: 3(052)563-813886 [place] [address] 12-05-2024 11:09-0400 Diastolic blood pressure 52 mm[Hg] Dr. Ethan Avendano MD Work Phone: [facility] 12-05-2024 11:09-0400 Heart rate 83 /min Dr. Ethan Avendano MD Work Phone: 8(443)884-381986 [place] [address] 12-05-2024 11:09-0400 Respiratory rate 16 /min Dr. Ethan Avendano MD Work Phone: 1(353)476-374627 [place] [address] 12-05-2024 11:09-0400 SaO2% (BldA) [Mass fraction] 100 % Dr. Ethan Avendano MD Work Phone: 0(607)927-360947 [address] 12-05-2024 11:09-0400 Systolic blood pressure 107 mm[Hg] Dr. Ethan Avendano MD Work Phone: 2(761)279-233927 [place] [address] 11-28-2024 10:50-0400 Body mass index (BMI) [Ratio] 23.8 kg/m2 Dr. Ethan Avendano MD Work Phone: 2(499)368-490727 [place] [address] 11-28-2024 10:50-0400 Body weight 68.[address] Ethan Avendano MD Work Phone: 9(307)702-437727 [place] [address] 11-28-2024 10:50-0400 Diastolic blood pressure 62 mm[Hg] Dr. Ethan Avendano MD Work Phone: 7(733)559-376927 [place] [address] 11-28-2024 10:50-0400 Heart rate 78 /min Dr. Ethan Avendano MD Work Phone: 5(072)513-361627 [place] [address] 11-28-2024 10:50-0400 Respiratory rate 16 /min Dr. Ethan Avendano MD Work Phone: 9(485)675-189986 [place] [address] 11-28-2024 10:50-0400 Systolic blood pressure 107 mm[Hg] Dr. Ethan Avendano MD Work Phone: 6(664)022-807827 [place] [address] 11-07-2024 11:02-0500 Body height 170.[address] Ethan Avendano MD Work Phone: 3(767)097-051727 [place] [address] 11-07-2024 11:02-0500 Body mass index (BMI) [Ratio] 22.7 kg/m2 Dr. Ethan Avendano MD Work Phone: [facility] 11-07-2024 11:02-0500 Body temperature 97 [degF] Dr. Ethan Avendano MD Work Phone: [facility] 11-07-2024 11:02-0500 Body weight 65.[address] Ethan Avendano MD Work Phone: [facility] 11-07-2024 11:02-0500 Diastolic blood pressure 58 mm[Hg] Dr. Ethan Avendano MD Work Phone: 7(086)033-418186 [place] [address] 11-07-2024 11:02-0500 Heart rate 82 /min Dr. Ethan Avendano MD Work Phone: 9(697)817-067847 [address] 11-07-2024 11:02-0500 Respiratory rate 16 /min Dr. Ethan Avendano MD Work Phone: 6(241)700-392847 [address] 11-07-2024 11:02-0500 SaO2% (BldA) [Mass fraction] 99 % Dr. Ethan Avendano MD Work Phone: [facility] 11-07-2024 11:02-0500 Systolic blood pressure 121 mm[Hg] Dr. Ethan Avendano MD Work Phone: 7(118)173-855047 [address] 10-10-2024 09:52-0500 Body mass index (BMI) [Ratio] 24.7 kg/m2 Dr. Ethan Avendano MD Work Phone: 8(035)607-906886 [place] [address] 10-10-2024 09:52-0500 Body temperature 97.5 [degF] Dr. Ethan Avendano MD Work Phone: [facility] 10-10-2024 09:52-0500 Body weight 71.[address] Ethan Avendano MD Work Phone: [facility] 10-10-2024 09:52-0500 Diastolic blood pressure 58 mm[Hg] Dr. Ethan Avendano MD Work Phone: 8(578)114-377586 [place] [address] 10-10-2024 09:52-0500 Heart rate 65 /min Dr. Ethan Avendano MD Work Phone: 9(712)218-418027 [place] [address] 10-10-2024 09:52-0500 Respiratory rate 16 /min Dr. Ethan Avendano MD Work Phone: 5(934)127-065527 [place] [address] 10-10-2024 09:52-0500 SaO2% (BldA) [Mass fraction] 99 % Dr. Ethan Avendano MD Work Phone: 5(001)011-692527 [place] [address] 10-10-2024 09:52-0500 Systolic blood pressure 127 mm[Hg] Dr. Ethan Avendano MD Work Phone: 7(012)201-199527 [place] [address] 09-05-2024 12:02-0500 Body mass index (BMI) [Ratio] 24.3 kg/m2 Dr. Ethan Avendano MD Work Phone: 9(816)426-764727 [place] [address] 09-05-2024 12:02-0500 Body temperature 97.7 [degF] Dr. Ethan Avendano MD Work Phone: 1(300)222-758427 [place] [address] 09-05-2024 12:02-0500 Body weight 70.[address] Ethan Avendano MD Work Phone: 1(319)723-821227 [place] [address] 09-05-2024 12:02-0500 Diastolic blood pressure 53 mm[Hg] Dr. Ethan Avendano MD Work Phone: 7(486)482-927027 [place] [address] 09-05-2024 12:02-0500 Heart rate 62 /min Dr. Ethan Avendano MD Work Phone: 3(215)104-161127 [place] [address] 09-05-2024 12:02-0500 Respiratory rate 16 /min Dr. Ethan Avendano MD Work Phone: 1(104)234-681927 [place] [address] 09-05-2024 12:02-0500 SaO2% (BldA) [Mass fraction] 100 % Dr. Ethan Avendano MD Work Phone: 8(517)594-025427 [place] [address] 09-05-2024 12:02-0500 Systolic blood pressure 136 mm[Hg] Dr. Ehtan Avendano MD Work Phone: 3(300)734-763327 [place] [address] 08-23-2024 09:10-0500 Body temperature 98 [degF] Dr. Ethan Avendano MD Work Phone: 2(506)446-251027 [place] [address] 08-23-2024 09:10-0500 Diastolic blood pressure 64 mm[Hg] Dr. Ethan Avendano MD Work Phone: 5(823)210-645727 [place] [address] 08-23-2024 09:10-0500 Heart rate 74 /min Dr. Ethan Avendano MD Work Phone: 5(559)194-385227 [place] [address] 08-23-2024 09:10-0500 Respiratory rate 16 /min Dr. Ethan Avendano MD Work Phone: 5(733)321-876527 [place] [address] 08-23-2024 09:10-0500 SaO2% (BldA) [Mass fraction] 97 % Dr. Ethan Avendano MD Work Phone: 7(731)215-925127 [place] [address] 08-23-2024 09:10-0500 Systolic blood pressure 106 mm[Hg] Dr. Ethan Avendano MD Work Phone: 0(459)864-258527 [place] [address] 08-23-2024 07:29-0500 Body mass index (BMI) [Ratio] 24.3 kg/m2 Dr. Ethan Avendano MD Work Phone: 2(962)866-510027 [place] [address] 08-23-2024 07:29-0500 Body weight 70.[address] Ethan Avendano MD Work Phone: 0(999)691-638627 [place] [address] 08-08-2024 11:47-0500 Body mass index (BMI) [Ratio] 24.4 kg/m2 Dr. Ethan Avendano MD Work Phone: 1(444)355-077327 [place] [address] 08-08-2024 11:47-0500 Body temperature 96.5 [degF] Dr. Ethan Avendano MD Work Phone: 3(764)637-634227 [place] [address] 08-08-2024 11:47-0500 Body weight 70.[address] Ethan Avendano MD Work Phone: 9(693)341-532627 [place] [address] 08-08-2024 11:47-0500 Diastolic blood pressure 56 mm[Hg] Dr. Ethan Avendano MD Work Phone: 4(297)961-962327 [place] [address] 08-08-2024 11:47-0500 Heart rate 62 /min Dr. Ethan Avendano MD Work Phone: 5(402)396-828227 [place] [address] 08-08-2024 11:47-0500 Respiratory rate 16 /min Dr. Ethan Avendano MD Work Phone: 1(575)358-055627 [place] [address] 08-08-2024 11:47-0500 SaO2% (BldA) [Mass fraction] 99 % Dr. Ethan Avendano MD Work Phone: 3(143)050-736027 [place] [address] 08-08-2024 11:47-0500 Systolic blood pressure 132 mm[Hg] Dr. Ethan Avendano MD Work Phone: 1(082)865-846327 [place] [address] 07-11-2024 11:11-0500 Body mass index (BMI) [Ratio] 24.9 kg/m2 Dr. Ethan Avendano MD Work Phone: 0(731)751-541827 [place] [address] 07-11-2024 11:11-0500 Body temperature 97 [degF] Dr. Ethan Avendano MD Work Phone: 2(409)378-862727 [place] [address] 07-11-2024 11:11-0500 Body weight 72.[address] Ethan Avendano MD Work Phone: 6(610)863-562827 [place] [address] 07-11-2024 11:11-0500 Diastolic blood pressure 47 mm[Hg] Dr. Ethan Avendano MD Work Phone: 8(885)042-346027 [place] [address] 07-11-2024 11:11-0500 Heart rate 59 /min Dr. Ethan Avendano MD Work Phone: 7(390)784-050227 [place] [address] 07-11-2024 11:11-0500 Respiratory rate 16 /min Dr. Ethan Avendano MD Work Phone: 9(337)207-990827 [place] [address] 07-11-2024 11:11-0500 SaO2% (BldA) [Mass fraction] 99 % Dr. Ethan Avendano MD Work Phone: 4(877)103-859327 [place] [address] 07-11-2024 11:11-0500 Systolic blood pressure 130 mm[Hg] Dr. Ethan Avendano MD Work Phone: 3(619)380-823927 [place] [address] 01-04-2024 10:36-0400 Body height 170.[address] Ethan Avendano Work Phone: 4(383)089-562227 [place] [address] 01-04-2024 10:36-0400 Body temperature 97.8 [degF] Dr. Ethan Avendano Work Phone: [facility] 01-04-2024 10:36-0400 Diastolic blood pressure 50 mm[Hg] Dr. Ethan Avendano Work Phone: [facility] 01-04-2024 10:36-0400 Heart rate 61 /min Dr. Ethan Avendano Work Phone: [facility] 01-04-2024 10:36-0400 Respiratory rate 16 /min Dr. Ethan Avendano Work Phone: [facility] 01-04-2024 10:36-0400 SaO2% (BldA) [Mass fraction] 98 % Dr. Ethan Avendano Work Phone: [facility] 01-04-2024 10:36-0400 Systolic blood pressure 105 mm[Hg] Dr. Ethan Avendano Work Phone: [facility] 12-07-2023 10:46-0400 Body height 170.[address] Ethan Avendano Work Phone: [facility] 12-07-2023 10:46-0400 Body temperature 96.8 [degF] Dr. Ethan Avendano Work Phone: [facility] 12-07-2023 10:46-0400 Diastolic blood pressure 61 mm[Hg] Dr. Ethan Avendano Work Phone: [facility] 12-07-2023 10:46-0400 Heart rate 62 /min Dr. Ethan Avendano Work Phone: [facility] 12-07-2023 10:46-0400 Respiratory rate 16 /min Dr. Ethan Avendano Work Phone: [facility] 12-07-2023 10:46-0400 SaO2% (BldA) [Mass fraction] 100 % Dr. Ethan Avendano Work Phone: [facility] 12-07-2023 10:46-0400 Systolic blood pressure 116 mm[Hg] Dr. Ethan Avendano Work Phone: [facility] 11-09-2023 10:29-0500 Body height 170.[address] Ethan Avendano Work Phone: [facility] 11-09-2023 10:29-0500 Body temperature 97.9 [degF] Dr. Ethan Avendano Work Phone: [facility] 11-09-2023 10:29-0500 Diastolic blood pressure 62 mm[Hg] Dr. Ethan Avendano Work Phone: [facility] 11-09-2023 10:29-0500 Heart rate 73 /min Dr. Ethan Avendano Work Phone: [facility] 11-09-2023 10:29-0500 Respiratory rate 16 /min Dr. Ethan Avendano Work Phone: [facility] 11-09-2023 10:29-0500 Systolic blood pressure 117 mm[Hg] Dr. Ethan Avendano Work Phone: [facility] 10-10-2023 10:23-0500 Body mass index (BMI) [Ratio] 24.9 kg/m2 Dr. Ethan Avendano Work Phone: [facility] 10-10-2023 10:23-0500 Body weight 72.[address] Ethan Avendano Work Phone: [facility] 10-10-2023 10:23-0500 Diastolic blood pressure 73 mm[Hg] Dr. Ethan Avendano Work Phone: [facility] 10-10-2023 10:23-0500 Heart rate 63 /min Dr. Ethan Avendano Work Phone: [facility] 10-10-2023 10:23-0500 Respiratory rate 18 /min Dr. Ethan Avendano Work Phone: [facility] 10-10-2023 10:23-0500 SaO2% (BldA) [Mass fraction] 99 % Dr. Ethan Avendano Work Phone: [facility] 10-10-2023 10:23-0500 Systolic blood pressure 128 mm[Hg] Dr. Ethan Avendano Work Phone: [facility] 10-05-2023 10:05-0500 Body height 170.18 cm [facility] 10-05-2023 10:05-0500 Body temperature 98.1 [degF] [facility] 10-05-2023 10:05-0500 Diastolic blood pressure 45 mm[Hg] [facility] 10-05-2023 10:05-0500 Heart rate 63 /min [facility] 10-05-2023 10:05-0500 Respiratory rate 16 /min [facility] 10-05-2023 10:05-0500 SaO2% (BldA) [Mass fraction] 100 % [facility] 10-05-2023 10:05-0500 Systolic blood pressure 105 mm[Hg] [facility] 09-07-2023 10:25-0500 Body height 170.18 cm [facility] 09-07-2023 10:25-0500 Body mass index (BMI) [Ratio] 24.3 kg/m2 [facility] 09-07-2023 10:25-0500 Body temperature 97 [degF] [facility] 09-07-2023 10:25-0500 Body weight 70.3 kg [facility] 09-07-2023 10:25-0500 Diastolic blood pressure 51 mm[Hg] [facility] 09-07-2023 10:25-0500 Heart rate 64 /min [facility] 09-07-2023 10:25-0500 Respiratory rate 16 /min [facility] 09-07-2023 10:25-0500 SaO2% (BldA) [Mass fraction] 97 % [facility] 09-07-2023 10:25-0500 Systolic blood pressure 114 mm[Hg] [facility] 08-10-2023 11:01-0500 Body mass index (BMI) [Ratio] 24.3 kg/m2 [facility] 08-10-2023 11:01-0500 Body weight 70.3 kg [facility] 07-06-2023 10:12-0400 Body height 170.[address] Ethan Avendano Work Phone: [facility] 07-06-2023 10:12-0400 Body mass index (BMI) [Ratio] 24.1 kg/m2 Dr. Ethan Avendano Work Phone: [facility] 07-06-2023 10:12-0400 Body temperature 97.6 [degF] Dr. Ethan Avendano Work Phone: [facility] 07-06-2023 10:12-0400 Body weight 69.[address] Ethan Avendano Work Phone: [facility] 07-06-2023 10:12-0400 Diastolic blood pressure 58 mm[Hg] Dr. Ethan Avendano Work Phone: [facility] 07-06-2023 10:12-0400 Heart rate 75 /min Dr. Ethan Avendano Work Phone: [facility] 07-06-2023 10:12-0400 Respiratory rate 16 /min Dr. Ethan Avednano Work Phone: [facility] 07-06-2023 10:12-0400 SaO2% (BldA) [Mass fraction] 98 % Dr. Ethan Avendano Work Phone: [facility] 07-06-2023 10:12-0400 Systolic blood pressure 130 mm[Hg] Dr. Ethan Avendano Work Phone: [facility] 06-08-2023 11:06-0400 Body temperature 97.1 [degF] Dr. Ethan Avendano Work Phone: [facility] 06-08-2023 11:06-0400 Diastolic blood pressure 56 mm[Hg] Dr. Ethan Avendano Work Phone: [facility] 06-08-2023 11:06-0400 Heart rate 65 /min Dr. Ethan Avendano Work Phone: [facility] 06-08-2023 11:06-0400 Respiratory rate 16 /min Dr. Ethan Avendano Work Phone: [facility] 06-08-2023 11:06-0400 SaO2% (BldA) [Mass fraction] 100 % Dr. Ethan Avendano Work Phone: [facility] 06-08-2023 11:06-0400 Systolic blood pressure 125 mm[Hg] Dr. Ethan Avendano Work Phone: 9(039)960-112786 [place] [address] 05-10-2023 11:11-0400 Body height 170.[address] Ethan Avendano Work Phone: 6(576)780-990247 [address] 05-10-2023 11:11-0400 Body mass index (BMI) [Ratio] 24.3 kg/m2 Dr. Ethan Avendano Work Phone: 5(887)589-942147 [address] 05-10-2023 11:11-0400 Body temperature 98.3 [degF] Dr. Ethan Avendano Work Phone: 5(089)423-389147 [address] 05-10-2023 11:11-0400 Body weight 70.[address] Ethan Avendano Work Phone: 2(309)713-328947 [address] 05-10-2023 11:11-0400 Diastolic blood pressure 51 mm[Hg] Dr. Ethan Avendano Work Phone: 6(704)272-888847 [address] 05-10-2023 11:11-0400 Heart rate 73 /min Dr. Ethan Avendano Work Phone: 4(233)752-801847 [address] 05-10-2023 11:11-0400 Respiratory rate 16 /min Dr. Ethan Avendano Work Phone: [facility] 05-10-2023 11:11-0400 SaO2% (BldA) [Mass fraction] 97 % Dr. Ethan Avendano Work Phone: 6(481)504-673586 [place] [address] 05-10-2023 11:11-0400 Systolic blood pressure 117 mm[Hg] Dr. Ethan Avendano Work Phone: [facility] 04-05-2023 11:03-0400 Body height 170.[address] Ethan Avendano Work Phone: [facility] 04-05-2023 11:03-0400 Body temperature 97.2 [degF] Dr. Ethan Avendano Work Phone: [facility] 04-05-2023 11:03-0400 Diastolic blood pressure 62 mm[Hg] Dr. Ethan Avendano Work Phone: [facility] 04-05-2023 11:03-0400 Heart rate 63 /min Dr. Ethan Avendano Work Phone: [facility] 04-05-2023 11:03-0400 Respiratory rate 16 /min Dr. Ethan Avendano Work Phone: [facility] 04-05-2023 11:03-0400 SaO2% (BldA) [Mass fraction] 98 % Dr. Ethan Avendano Work Phone: [facility] 04-05-2023 11:03-0400 Systolic blood pressure 122 mm[Hg] Dr. Ethan Avendano Work Phone: [facility] 03-08-2023 12:58-0400 Body height 170.[address] Ethan Avendano Work Phone: [facility] 03-08-2023 12:58-0400 Body mass index (BMI) [Ratio] 23.9 kg/m2 Dr. Ethan Avendano Work Phone: [facility] 03-08-2023 12:58-0400 Body temperature 98.6 [degF] Dr. Ethan Avendano Work Phone: [facility] 03-08-2023 12:58-0400 Body weight 69.[address] Ethan Avendano Work Phone: [facility] 03-08-2023 12:58-0400 Diastolic blood pressure 53 mm[Hg] Dr. Ethan Avendano Work Phone: [facility] 03-08-2023 12:58-0400 Heart rate 71 /min Dr. Ethan Avendano Work Phone: [facility] 03-08-2023 12:58-0400 Respiratory rate 16 /min Dr. Ethan Avendano Work Phone: [facility] 03-08-2023 12:58-0400 SaO2% (BldA) [Mass fraction] 97 % Dr. Ethan Avendano Work Phone: [facility] 03-08-2023 12:58-0400 Systolic blood pressure 119 mm[Hg] Dr. Ethan Avendano Work Phone: [facility] 02-03-2023 11:03-0400 Body height 170.[address] Ethan Avendano Work Phone: [facility] 02-03-2023 11:03-0400 Body temperature 97 [degF] Dr. Ethan Avendano Work Phone: [facility] 02-03-2023 11:03-0400 Diastolic blood pressure 53 mm[Hg] Dr. Ethan Avendano Work Phone: 6(579)024-740286 [place] [address] 02-03-2023 11:03-0400 Heart rate 66 /min Dr. Ethan Avendano Work Phone: [facility] 02-03-2023 11:03-0400 Respiratory rate 16 /min Dr. Ethan Avendano Work Phone: [facility] 02-03-2023 11:03-0400 SaO2% (BldA) [Mass fraction] 100 % Dr. Ethan Avendano Work Phone: [facility] 02-03-2023 11:03-0400 Systolic blood pressure 117 mm[Hg] Dr. Ethan Avendano Work Phone: [facility] 02-01-2023 08:32-0400 Body mass index (BMI) [Ratio] 23.8 kg/m2 Dr. Ethan Avendano Work Phone: [facility] 02-01-2023 08:32-0400 Body weight 68.[address] Ethan Avendano Work Phone: [facility] 02-01-2023 08:32-0400 Diastolic blood pressure 69 mm[Hg] Dr. Ethan Avendano Work Phone: [facility] 02-01-2023 08:32-0400 Heart rate 70 /min Dr. Ethan Avendano Work Phone: [facility] 02-01-2023 08:32-0400 Respiratory rate 18 /min Dr. Ethan Avendano Work Phone: [facility] 02-01-2023 08:32-0400 SaO2% (BldA) [Mass fraction] 99 % Dr. Ethan Avendano Work Phone: [facility] 02-01-2023 08:32-0400 Systolic blood pressure 117 mm[Hg] Dr. Ethan Avendano Work Phone: [facility] 01-05-2023 09:29-0400 Body height 170.18 cm [facility] 01-05-2023 09:29-0400 Body temperature 98.4 [degF] [facility] 01-05-2023 09:29-0400 Diastolic blood pressure 53 mm[Hg] [facility] 01-05-2023 09:29-0400 Heart rate 73 /min [facility] 01-05-2023 09:29-0400 Respiratory rate 16 /min [facility] 01-05-2023 09:29-0400 SaO2% (BldA) [Mass fraction] 99 % [facility] 01-05-2023 09:29-0400 Systolic blood pressure 114 mm[Hg] [facility] 12-29-2022 08:06-0400 Diastolic blood pressure 64 mm[Hg] Latisha Robles MD Work Phone: [facility] 12-29-2022 08:06-0400 Heart rate 99 /min Latisha Robles MD Work Phone: [facility] 12-29-2022 08:06-0400 SaO2% (BldA) [Mass fraction] 82 % Latisha Robles MD Work Phone: [facility] 12-29-2022 08:06-0400 Systolic blood pressure 121 mm[Hg] Latisha Robles MD Work Phone: [facility] 12-08-2022 11:20-0400 Body height 170.18 cm [facility] 12-08-2022 11:20-0400 Diastolic blood pressure 87 mm[Hg] [facility] 12-08-2022 11:20-0400 Heart rate 76 /min [facility] 12-08-2022 11:20-0400 Respiratory rate 16 /min [facility] 12-08-2022 11:20-0400 SaO2% (BldA) [Mass fraction] 100 % [facility] 12-08-2022 11:20-0400 Systolic blood pressure 130 mm[Hg] [facility] 11-04-2022 11:23-0500 Body height 170.18 cm [facility] 11-04-2022 11:23-0500 Body temperature 97.9 [degF] [facility] 11-04-2022 11:23-0500 Diastolic blood pressure 60 mm[Hg] [facility] 11-04-2022 11:23-0500 Heart rate 60 /min [facility] 11-04-2022 11:23-0500 Respiratory rate 16 /min [facility] 11-04-2022 11:23-0500 SaO2% (BldA) [Mass fraction] 100 % [facility] 11-04-2022 11:23-0500 Systolic blood pressure 123 mm[Hg] [facility] 10-07-2022 11:02-0500 Body height 170.18 cm [facility] 10-07-2022 11:02-0500 Body mass index (BMI) [Ratio] 24.3 kg/m2 [facility] 10-07-2022 11:02-0500 Body temperature 97.9 [degF] [facility] 10-07-2022 11:02-0500 Body weight 70.3 kg [facility] 10-07-2022 11:02-0500 Diastolic blood pressure 55 mm[Hg] [facility] 10-07-2022 11:02-0500 Heart rate 63 /min [facility] 10-07-2022 11:02-0500 Respiratory rate 16 /min [facility] 10-07-2022 11:02-0500 SaO2% (BldA) [Mass fraction] 100 % [facility] 10-07-2022 11:02-0500 Systolic blood pressure 132 mm[Hg] [facility] 09-09-2022 11:12-0500 Body height 170.18 cm [facility] 09-09-2022 11:12-0500 Body mass index (BMI) [Ratio] 24.5 kg/m2 [facility] 09-09-2022 11:12-0500 Body temperature 97.7 [degF] [facility] 09-09-2022 11:12-0500 Body weight 71.21 kg [facility] 09-09-2022 11:12-0500 Diastolic blood pressure 66 mm[Hg] [facility] 09-09-2022 11:12-0500 Heart rate 68 /min [facility] 09-09-2022 11:12-0500 Respiratory rate 16 /min [facility] 09-09-2022 11:12-0500 SaO2% (BldA) [Mass fraction] 99 % [facility] 09-09-2022 11:12-0500 Systolic blood pressure 149 mm[Hg] [facility] 08-04-2022 10:51-0500 Body height 170.[address] Ethan Avendano Work Phone: [facility] Work Phone: 08-04-2022 10:51-0500 Body mass index (BMI) [Ratio] 23.8 kg/m2 Dr. Ethan Avendano Work Phone: [facility] 08-04-2022 10:51-0500 Body temperature 96.9 [degF] Dr. Ethan Avendano Work Phone: [facility] 08-04-2022 10:51-0500 Body weight 68.[address] Ethan Avendano Work Phone: [facility] 08-04-2022 10:51-0500 Diastolic blood pressure 59 mm[Hg] Dr. Ethan Avendano Work Phone: [facility] 08-04-2022 10:51-0500 Heart rate 72 /min Dr. Ethan Avendano Work Phone: [facility] 08-04-2022 10:51-0500 Respiratory rate 12 /min Dr. Ethan Avendano Work Phone: [facility] 08-04-2022 10:51-0500 SaO2% (BldA) [Mass fraction] 100 % Dr. Ethan Avendano Work Phone: [facility] 08-04-2022 10:51-0500 Systolic blood pressure 126 mm[Hg] Dr. Ethan Avendano Work Phone: [facility] 07-08-2022 11:09-0400 Body height 170.[address] Ethan Avendano Work Phone: [facility] Work Phone: 07-08-2022 11:09-0400 Body temperature 98.1 [degF] Dr. Ethan Avendano Work Phone: [facility] 07-08-2022 11:09-0400 Diastolic blood pressure 63 mm[Hg] Dr. Ethan Avendano Work Phone: [facility] 07-08-2022 11:09-0400 Heart rate 67 /min Dr. Ethan Avendano Work Phone: [facility] 07-08-2022 11:09-0400 Respiratory rate 16 /min Dr. Ethan Avendano Work Phone: [facility] 07-08-2022 11:09-0400 SaO2% (BldA) [Mass fraction] 99 % Dr. Etahn Avendano Work Phone: [facility] 07-08-2022 11:09-0400 Systolic blood pressure 135 mm[Hg] Dr. Ethan Avendano Work Phone: [facility] 06-10-2022 11:18-0400 Body height 170.[address] Ethan Avendano Work Phone: [facility] Work Phone: 06-10-2022 11:18-0400 Body mass index (BMI) [Ratio] 24.4 kg/m2 Dr. Ethan Avendano Work Phone: [facility] 06-10-2022 11:18-0400 Body temperature 98.2 [degF] Dr. Ethan Avendano Work Phone: [facility] 06-10-2022 11:18-0400 Body weight 70.[address] Ethan Avendano Work Phone: [facility] 06-10-2022 11:18-0400 Diastolic blood pressure 59 mm[Hg] Dr. Ethan Avendano Work Phone: [facility] 06-10-2022 11:18-0400 Heart rate 66 /min Dr. Ethan Avendano Work Phone: [facility] 06-10-2022 11:18-0400 Respiratory rate 12 /min Dr. Ethan Avendano Work Phone: [facility] 06-10-2022 11:18-0400 SaO2% (BldA) [Mass fraction] 99 % Dr. Ethan Avendano Work Phone: [facility] 06-10-2022 11:18-0400 Systolic blood pressure 127 mm[Hg] Dr. Ethan Avendano Work Phone: [facility] 04-08-2022 11:31-0400 Body temperature 96.6 [degF] Dr. Ethan Avendano Work Phone: [facility] Work Phone: 04-08-2022 11:31-0400 Diastolic blood pressure 57 mm[Hg] Dr. Ethan Avendano Work Phone: [facility] Work Phone: 04-08-2022 11:31-0400 Heart rate 68 /min Dr. Ethan Avendano Work Phone: [facility] Work Phone: 04-08-2022 11:31-0400 SaO2% (BldA) [Mass fraction] 98 % Dr. Ethan Avendano Work Phone: [facility] Work Phone: 04-08-2022 11:31-0400 Systolic blood pressure 118 mm[Hg] Dr. Ethan Avendano Work Phone: [facility] Work Phone: 03-16-2022 11:23-0400 Body height 170.[address] Ethan Avendano Work Phone: [facility] Work Phone: 03-04-2022 11:24-0400 Body height 170.18 cm [facility] Work Phone: 03-04-2022 11:24-0400 Body mass index (BMI) [Ratio] 24.3 kg/m2 [facility] Work Phone: 03-04-2022 11:24-0400 Body temperature 98.4 [degF] [facility] Work Phone: 03-04-2022 11:24-0400 Body weight 70.3 kg [facility] Work Phone: 03-04-2022 11:24-0400 Diastolic blood pressure 54 mm[Hg] [facility] Work Phone: 03-04-2022 11:24-0400 Heart rate 65 /min [facility] Work Phone: 03-04-2022 11:24-0400 Respiratory rate 14 /min [facility] Work Phone: 03-04-2022 11:24-0400 SaO2% (BldA) [Mass fraction] 96 % [facility] Work Phone: 03-04-2022 11:24-0400 Systolic blood pressure 126 mm[Hg] [facility] Work Phone: 02-04-2022 10:46-0400 Body height 170.18 cm [facility] Work Phone: 02-04-2022 10:46-0400 Body mass index (BMI) [Ratio] 24.1 kg/m2 [facility] Work Phone: 02-04-2022 10:46-0400 Body temperature 98.2 [degF] [facility] Work Phone: 02-04-2022 10:46-0400 Body weight 69.85 kg [facility] Work Phone: 02-04-2022 10:46-0400 Diastolic blood pressure 48 mm[Hg] [facility] Work Phone: 02-04-2022 10:46-0400 Heart rate 60 /min [facility] Work Phone: 02-04-2022 10:46-0400 Respiratory rate 16 /min [facility] Work Phone: 02-04-2022 10:46-0400 SaO2% (BldA) [Mass fraction] 97 % [facility] Work Phone: 02-04-2022 10:46-0400 Systolic blood pressure 108 mm[Hg] [facility] Work Phone: 01-07-2022 11:04-0400 Body temperature 97.6 [degF] [facility] Work Phone: 01-07-2022 11:04-0400 Diastolic blood pressure 61 mm[Hg] [facility] Work Phone: 01-07-2022 11:04-0400 Heart rate 68 /min [facility] Work Phone: 01-07-2022 11:04-0400 Respiratory rate 16 /min [facility] Work Phone: 01-07-2022 11:04-0400 SaO2% (BldA) [Mass fraction] 96 % [facility] Work Phone: 01-07-2022 11:04-0400 Systolic blood pressure 128 mm[Hg] [facility] Work Phone: 12-03-2021 11:12-0400 Body height 170.[address] Ethan Avendano Work Phone: [facility] Work Phone: 12-03-2021 11:12-0400 Body mass index (BMI) [Ratio] 24.3 kg/m2 Dr. Ethan Avendano Work Phone: [facility] Work Phone: 12-03-2021 11:12-0400 Body temperature 98.1 [degF] Dr. Ethan Avendano Work Phone: [facility] Work Phone: 12-03-2021 11:12-0400 Body weight 70.[address] Ethan Avendano Work Phone: [facility] Work Phone: 12-03-2021 11:12-0400 Diastolic blood pressure 70 mm[Hg] Dr. Ethan Avendano Work Phone: [facility] Work Phone: 12-03-2021 11:12-0400 Heart rate 72 /min Dr. Ethan Avendano Work Phone: [facility] Work Phone: 12-03-2021 11:12-0400 Respiratory rate 16 /min Dr. Ethan Avendano Work Phone: [facility] Work Phone: 12-03-2021 11:12-0400 SaO2% (BldA) [Mass fraction] 97 % Dr. Ethan Avendano Work Phone: [facility] Work Phone: 12-03-2021 11:12-0400 Systolic blood pressure 142 mm[Hg] Dr. Ethan Avendano Work Phone: [facility] Work Phone: 11-05-2021 10:17-0500 Body mass index (BMI) [Ratio] 24.7 kg/m2 Dr. Ethan Avendano Work Phone: [facility] Work Phone: 11-05-2021 10:17-0500 Body temperature 98.4 [degF] Dr. Ethan Avendano Work Phone: [facility] Work Phone: 11-05-2021 10:17-0500 Body weight 71.[address] Ethan Avendano Work Phone: [facility] Work Phone: 11-05-2021 10:17-0500 Diastolic blood pressure 56 mm[Hg] Dr. Ethan Avendano Work Phone: [facility] Work Phone: 11-05-2021 10:17-0500 Heart rate 63 /min Dr. Ethan Avendano Work Phone: [facility] Work Phone: 11-05-2021 10:17-0500 Respiratory rate 16 /min Dr. Ethan Avendano Work Phone: [facility] Work Phone: 11-05-2021 10:17-0500 SaO2% (BldA) [Mass fraction] 100 % Dr. Ethan Avendano Work Phone: [facility] Work Phone: 11-05-2021 10:17-0500 Systolic blood pressure 120 mm[Hg] Dr. Ethan Avendano Work Phone: [facility] Work Phone: 10-08-2021 11:15-0500 Body temperature 96.6 [degF] Dr. Ethan Avendano Work Phone: [facility] Work Phone: 10-08-2021 11:15-0500 Diastolic blood pressure 57 mm[Hg] Dr. Ethan Avendano Work Phone: [facility] Work Phone: 10-08-2021 11:15-0500 Heart rate 62 /min Dr. Ethan Avendano Work Phone: [facility] Work Phone: 10-08-2021 11:15-0500 SaO2% (BldA) [Mass fraction] 98 % Dr. Ethan Avendano Work Phone: [facility] Work Phone: 10-08-2021 11:15-0500 Systolic blood pressure 123 mm[Hg] Dr. Ethan Avendano Work Phone: [facility] Work Phone: 10-08-2021 09:20-0500 Respiratory rate 16 /min Dr. Ethan Avendano Work Phone: [facility] Work Phone: 09-10-2021 10:35-0500 Body mass index (BMI) [Ratio] 24.7 kg/m2 Dr. Ethan Avendano Work Phone: [facility] Work Phone: 09-10-2021 10:35-0500 Body temperature 98.5 [degF] Dr. Ethan Avendano Work Phone: [facility] Work Phone: 09-10-2021 10:35-0500 Body weight 71.[address] Ethan Avendano Work Phone: [facility] Work Phone: 09-10-2021 10:35-0500 Diastolic blood pressure 65 mm[Hg] Dr. Ethan Avendano Work Phone: [facility] Work Phone: 09-10-2021 10:35-0500 Heart rate 56 /min Dr. Ethan Avendano Work Phone: [facility] Work Phone: 09-10-2021 10:35-0500 Respiratory rate 16 /min Dr. Ethan Avendano Work Phone: [facility] Work Phone: 09-10-2021 10:35-0500 SaO2% (BldA) [Mass fraction] 95 % Dr. Ethan Avendano Work Phone: [facility] Work Phone: 09-10-2021 10:35-0500 Systolic blood pressure 116 mm[Hg] Dr. Ethan Avendano Work Phone: [facility] Work Phone: 09-06-2021 08:47-0500 Body weight 72.[address] Ethan Avendano Work Phone: [facility] Work Phone: 09-06-2021 08:47-0500 Diastolic blood pressure 66 mm[Hg] Dr. Ethan Avendano Work Phone: [facility] Work Phone: 09-06-2021 08:47-0500 Heart rate 56 /min Dr. Ethan Avendano Work Phone: [facility] Work Phone: 09-06-2021 08:47-0500 Respiratory rate 18 /min Dr. Ethan Avendano Work Phone: [facility] Work Phone: 09-06-2021 08:47-0500 SaO2% (BldA) [Mass fraction] 100 % Dr. Ethan Avendano Work Phone: [facility] Work Phone: 09-06-2021 08:47-0500 Systolic blood pressure 150 mm[Hg] Dr. Ethan Avendano Work Phone: [facility] Work Phone: 02-16-2021 10:08-0400 Body mass index (BMI) [Ratio] 24.3 kg/m2 Dr. Ethan Avendano Work Phone: [facility] Work Phone: Encounters Encounter Date Encounter Type Care Provider Facility Start: 05-07-2025 End: 05-07-[address] Ethan Avendano MD Work Phone: -Medical Out Start: 05-07-2025 End: 05-07-[address] Ethan Avendano MD -Medical Out Work Phone: Start: 04-17-2025 End: 04-17-[address] Ethan Avendano MD Work Phone: -[facility] [place] Start: 04-17-2025 End: 04-17-[address] Ethan Avendano MD -[facility] [place] Work Phone: Start: 04-17-2025 End: 04-17-2025 ambulatory [facility] Facility:[facility] Start: 04-09-2025 End: 04-09-[address] Ethan Avendano MD -Medical Out Work Phone: Start: 04-09-2025 End: 04-09-[address] Ethan Avendano MD Work Phone: -Medical Out Start: 04-07-2025 End: 04-08-2025 Telephone encounter Bronson Jarrett MD Work Phone: [facility] Clinical Communication Comment on above: Cancelled Appointmen t Start: 03-27-2025 Non-patient / Non-visit Dr. Jessica Chris MD -[facility] Work Phone: Start: 03-26-2025 Non-patient / Non-visit Dr. Jessica Chris MD -[facility] Work Phone: Start: 2025 Non-patient / Non-visit Dr. Lacy Johnston MD -[facility] Work Phone: Start: 2025 End: 03-27-2025 ambulatory [facility] Facility:[facility] Start: 2025 End: 03-27-2025 Evaluation and management of inpatient Dr. Lacy Johnston MD -Medical Surgical 3 Work Phone: Start: 2025 End: 03-27-[address] Ethan Avendano MD Work Phone: -Medical Surgical 3 Start: 03-16-2025 End: 03-21-2025 Evaluation and management of inpatient Bhanu Jaxsonrakola DO Work Phone: [facility] Surgical Progressive Care Unit PCU H6 Comment [...] ambulatory Dr. Ethan Avendano MD Work Phone: [facility] Work Phone: Start: 01-06-2025 End: 01-06-[address] Ethan Avendano MD Work Phone: [facility] Work Phone: Start: 01-06-2025 End: 01-06-2025 Discharged Recurring Sandra ALVAREZ -Physical Therapy Work Phone: Start: 01-02-2025 End: 01-02-[address] Ethan Avendano MD -Medical Out Work Phone: Start: 01-02-2025 End: 01-02-2025 ambulatory Ethan Avendano Facility:[facility] Start: 12-25-2024 End: 12-25-[address] [facility] Start: 12-25-2024 End: 12-25-2024 ambulatory Ethan Avendano Facility:[facility] Start: 12-19-2024 Registered Recurring Sandra ALVAREZ -Physical Therapy Work Phone: Start: 12-17-2024 End: 12-17-[address] Ethan Avendano MD Work Phone: [facility] Work Phone: Start: 12-17-2024 End: 12-17-[address] Demian Ramsay MD -Cardiovascular Services Work Phone: Start: 12-17-2024 End: 12-17-2024 ambulatory Demian Ramsay Facility:[facility] Start: 12-05-2024 End: 12-05-[address] Ethan Avendano MD -Medical Out Work Phone: Start: 12-05-2024 End: 12-05-[address] Ethan Avendano MD Work Phone: [facility] Work Phone: Start: 12-04-2024 Registered Recurring Sandra ALVAREZ -Physical Therapy Work Phone: Start: 11-28-2024 End: 11-28-[address] Demian Ramsay MD -[facility] Work Phone: Start: 11-28-2024 End: 11-28-2024 ambulatory Ethan Avendano Facility:[facility] Start: 11-07-2024 End: 11-07-[address] Ethan Avendano MD -Medical Out Work Phone: Start: 11-07-2024 End: 11-07-[address] Ethan Avendano MD Work Phone: [facility] Work Phone: Start: 10-29-2024 End: 10-29-[address] Ethan Avendano MD Work Phone: [facility] Work Phone: Start: 10-29-2024 End: 10-29-[address] Ethan Avendano MD -[facility] Work Phone: Start: 10-29-2024 End: 10-29-2024 ambulatory Ethan Avendano Facility:[facility] Start: 10-10-2024 End: 10-10-[address] Ethan Avendano MD -Medical Out Work Phone: Start: 10-10-2024 End: 10-10-2024 ambulatory Ethan Avendano Facility:[facility] Start: 09-11-2024 End: 09-11-[address] Jameel Oseguera MD -Radiology, [facility] Work Phone: Start: 09-11-2024 End: 09-11-2024 ambulatory Ethan Avendano Facility:[facility] Start: 09-05-2024 End: 09-05-[address] Ethan Avendano MD -Medical Out Work Phone: Start: 09-05-2024 End: 09-05-2024 [facility] Ethan Avendano Facility:[facility] Start: 08-23-2024 Non-patient / Non-visit Dr. Matilde Oseguera MD -[facility] Start: 08-23-2024 End: 08-23-2024 Admission to same day surgery center Dr. Jameel Oseguera MD -Endoscopy Work Phone: Start: 08-23-2024 End: 08-23-2024 [facility] Ethan Avendano Facility:[facility] Start: 08-08-2024 End: 08-08-[address] Ethan Avendano MD -Medical Out Work Phone: Start: 08-08-2024 End: 08-08-2024 ambulatory Ethan Avendano Facility:[facility] Start: 07-11-2024 End: 07-11-[address] Ethan Avendano MD -Medical Out Work Phone: Start: 07-11-2024 End: 07-11-2024 ambulatory Ethan Avendano Facility:[facility] Start: 07-10-2024 End: 07-10-2024 ambulatory Ethan Avendano Facility:[facility] Start: 06-06-2024 End: 06-06-2024 ambulatory Ethan Avendano Facility:[facility] Start: 01-04-2024 End: 01-04-[address] Ethan Avendano Work Phone: [facility] Work Phone: Start: 01-04-2024 End: 01-04-[address] Ethan Avendano Work Phone: [facility]-Medical Out Work Phone: Start: 12-07-2023 End: 12-07-[address] Ethan Avendano Work Phone: [facility] Work Phone: Start: 12-07-2023 End: 12-07-[address] [facility] Start: 11-16-2023 End: 11-16-[address] Ethan Avendano Work Phone: [facility] Work Phone: Start: 11-16-2023 End: 11-16-[address] Ethan Avendano Work Phone: [facility] Start: 11-09-2023 End: 11-09-[address] Ethan Avendano Work Phone: [facility] Work Phone: Start: 11-09-2023 End: 11-09-[address] [facility] Start: 10-10-2023 End: 10-10-[address] Ethan Avendano Work Phone: [facility] Work Phone: Start: 10-06-2023 End: 10-06-2023 ambulatory FLORENCE EUGENE [facility]:[id number] Start: 10-05-2023 End: 10-05-2023 ambulatory [facility] Work Phone: Start: 10-05-2023 End: 10-05-2023 Patient encounter procedure [facility]-Medical Out Work Phone: Start: 09-07-2023 End: 09-07-2023 ambulatory [facility] Work Phone: Start: 09-07-2023 End: 09-07-2023 Patient encounter procedure [facility] Out Work Phone: Start: 08-10-2023 End: 08-10-2023 Patient encounter procedure [facility] Work Phone: Start: 07-06-2023 End: 07-06-[address] Ethan Avendano Work Phone: [facility] Work Phone: Start: 07-06-2023 End: 07-06-[address] [facility] Start: 06-08-2023 End: 06-08-[address] Ethna [facility]ano [facility] Start: 05-10-2023 End: 05-10-[address] Ethan Avendano Work Phone: [facility] Work Phone: Start: 05-10-2023 End: 05-10-[address] [facility] Start: 05-05-2023 Non-patient / Non-visit Dr. Abdulkadir Avendano Work Phone: [facility] Start: 05-05-2023 End: 05-05-[address] Ethan Avendano Work Phone: [facility] Work Phone: Start: 05-05-2023 End: 05-05-[address] Ethan Avendano Work Phone: [facility]-Cardiovascular Services Work Phone: Start: 04-05-2023 End: 04-05-[address] Ethan Avendano Work Phone: [facility] Work Phone: Start: 04-05-2023 End: 04-05-[address] [facility] Start: 03-23-2023 End: 03-23-[address] [facility] Start: 03-08-2023 End: 03-08-[address] Ethan Avendano Work Phone: [facility] Work Phone: Start: 03-08-2023 End: 03-08-[address] [facility] Start: 02-03-2023 End: 02-03-[address] Ethan Avendano Work Phone: [facility] Work Phone: Start: 02-03-2023 End: 02-03-[address] Ethan Avendano Work Phone: [facility]-Medical Out Start: 02-01-2023 End: 02-01-[address] Ethan Avendano Work Phone: [facility] Work Phone: Start: 02-01-2023 End: 02-01-[address] Ethan Avendano Work Phone: [facility]-Laboratory Start: 02-01-2023 End: 02-01-[address] Ethan Avendano Work Phone: [facility] Start: 01-05-2023 End: 01-05-2023 ambulatory [facility] Work Phone: Start: 01-05-2023 End: 01-05-2023 Patient encounter procedure [facility]-Medical Out Start: 12-29-2022 End: 12-29-2022 ambulatory LACY GOLDBERG Facility:[facility] Start: 12-29-2022 End: 12-29-2022 Patient encounter procedure Latisha Robles MD Work Phone: Neurology Comment on above: Parkinson disease (H CC) (Primary Dx) Start: 12-08-2022 End: 12-08-2022 ambulatory [facility] Work Phone: Start: 12-08-2022 End: 12-08-2022 Patient encounter procedure [facility] Out Start: 11-16-2022 End: 11-16-2022 ambulatory [facility] Work Phone: Start: 11-16-2022 End: 11-16-2022 Discharged Recurring [facility]-Physical Therapy Start: 11-04-2022 End: 11-04-2022 Patient encounter procedure [facility] Start: 10-07-2022 End: 10-07-2022 ambulatory [facility] Work Phone: Start: 10-07-2022 End: 10-07-2022 Patient encounter procedure [facility]-Medical Out Start: 09-19-2022 End: 09-19-2022 ambulatory [facility] Work Phone: Start: 09-19-2022 End: 09-19-2022 Patient encounter procedure [facility]-MRI - [facility] Start: 09-09-2022 End: 09-09-2022 ambulatory [facility] Work Phone: Start: 09-09-2022 End: 09-09-2022 Patient encounter procedure [facility] Out Start: 08-24-2022 End: 08-24-2022 ambulatory [facility] Work Phone: Start: 08-24-2022 End: 08-24-2022 Patient encounter procedure [facility]-Laboratory, [place] Start: 08-16-2022 End: 08-16-2022 ambulatory Florence A Jeff OT/[facility] Start: 08-16-2022 End: 08-16-2022 Coordination of care plan Florence A Jeff OT[facility] Comment on above: Parkinson disease (H CC) (Primary Dx); Abnormality of gait and mobility; Abnormal coordination; Irregular eye movements Start: 08-15-2022 End: 08-15-2022 ambulatory [facility] Work Phone: Start: 08-15-2022 End: 08-15-[address] Ethan Avendano Work Phone: [facility], [facility] Start: 08-15-2022 End: 08-15-2022 ambulatory Florence A Jeff OT/L JAQUANY IXONIA Start: 08-15-2022 End: 08-15-2022 Coordination of care plan Florence A Jeff OT/L [facility] Comment on above: Parkinson disease (H CC) (Primary Dx); Abnormality of gait and mobility; Abnormal coordination; Irregular eye movements Start: 08-11-2022 End: 08-11-[address] Ethan Avendano Work Phone: [facility] Work Phone: Start: 08-11-2022 End: 08-11-[address] Ethan Avendano Work Phone: [facility] Start: 08-04-2022 End: 08-04-2022 ambulatory [facility] Work Phone: Start: 08-04-2022 End: 08-04-[address] Ethan Avendano Work Phone: [facility] Start: 07-15-2022 End: 07-15-[address] Ethan Avendano Work Phone: [facility] Work Phone: Start: 07-15-2022 End: 07-15-[address] Ethan Avendano Work Phone: [facility] Start: 07-08-2022 End: 07-08-[address] Ethan Avendano Work Phone: [facility] Work Phone: Start: 07-08-2022 End: 07-08-[address] Ethan Avendano Work Phone: [facility] Start: 07-07-2022 End: 07-07-[address] Ethan Avendano Work Phone: [facility] Start: 07-04-2022 End: 07-04-[address] Ethan Avendano Work Phone: [facility] Therapy Start: 07-04-[address] Ethan Avendano Work Phone: [facility] Start: 06-13-[address] Ethan Avendano Work Phone: [facility] Start: 06-10-2022 End: 06-10-[address] Ethan Avendano Work Phone: [facility] Start: 06-07-2022 End: 06-07-[address] Ethan Avendano Work Phone: [facility] Work Phone: Start: 06-07-2022 End: 06-07-[address] Ethan Avendano Work Phone: [facility] Start: 05-06-2022 End: 05-06-[address] Ethan Avendano Work Phone: [facility] Work Phone: Start: 05-06-2022 End: 05-06-[address] [facility] Start: 05-04-[address] Ethan Avendano Work Phone: [facility] Start: 04-20-2022 Non-patient / Non-visit Dr. Abdulkadir Avendano Work Phone: [facility] Start: 04-20-2022 End: 04-20-[address] [facility] Start: 04-08-2022 End: 04-08-[address] [facility] Start: 03-16-2022 End: 03-16-[address] Ethan Avendano Work Phone: [facility] Start: 03-04-2022 End: 03-04-2022 [facility] Start: 02-04-2022 End: 02-04-2022 [facility] Start: 01-07-2022 End: 01-07-2022 [facility] Start: 12-03-2021 End: 12-03-[address] [facility]endano [facility] Start: 12-02-2021 End: 12-02-[address] Ethan Avendano Work Phone: [facility] Start: 11-05-2021 End: 11-05-[address] [facility] Start: 10-08-2021 End: 10-08-[address] [facility] Start: 09-10-2021 End: 09-10-[address] Ethan Avendano Work Phone: [facility] Start: 09-06-2021 End: 09-06-[address] Ethan Avendano Work Phone: [facility] Start: 08-14-2017 Ambulatory Isaac Peterson [id number] Procedures Date Procedure Procedure Detail Performing Clinician Start: 03-26-[address] Ethan Avendano MD Work Phone: Start: 2025 Methadone measuremen t, urine Dr. [...] Blood Yasmin Barry MD Work Phone: Start: 2 End: 03-18-2025 Laparoscopy colectomy partial w/anastomosis Bronson [...] Dr. Demian Ramsay MD Comment on above: OYS-HCO-Oacnva RCA w / 2.5 x 12 mm Elunir Stent and MILANA-Mid RCA w/ 3.0 x 33 mm Elunir Stent 03/11/19; PCI-MILANA- Mid LAD w/ 3.0 x 16 mm Synergy MR Stent 03/21/2019 Start: 09-26-2008 Colonoscopy Florence villanueva OT/L Plan of Treatment Date Care Activity Detail Author Start: 09-11-2029 DTaP/Tdap/Td Vaccine s (5 - Td or Tdap) DTaP/Tdap/Td Vaccines (5 - Td or Tdap) [facility] Start: 06-02-2027 Screening for malign ant neoplasm of colon [facility] Start: 06-25-2026 Urine microalbumin profile DTA P,TDAP,TD (4 - Td or Tdap) [facility] Start: 05-05-2025 Influenza vaccination Influenza Vacc ine (#1) [facility] Start: 04-09-2025 Iv infusion therapy prophylaxis/dx ea hour THER/PROPH/DIAG IV INF [facility] Start: 04-09-2025 Iv infusion therapy/prophylaxis /dx 1st to 1 hr THER/PROPH/DIAG IV INF INIT [facility] Start: 04-09-2025 End: 04-09-2025 Patient encounter procedure 04/09/2025 10:15 AM EDT Office Visit [facility] [place] [address] [facility] [address] [place] [id number] Bronson Jarrett MD [address] [facility] [facility] [address] [place] [address] [facility] [place] Start: 03-27-2025 Patient discharge [facility] Start: 03-26-2025 Referral to service [facility] Start: 03-26-2025 Speech therapy assessment [facility] Start: 03-26-2025 Following clinical p athway protocol [facility] Start: 03-26-2025 Aspiration precautions [facility] Start: 03-26-2025 Assessment of risk o f venous thromboembolism [facility] Start: 03-26-2025 Fall prevention [facility] Start: 03-26-2025 Incentive spirometry [facility] Start: 03-26-2025 Inhalation therapy procedure [facility] Start: 03-26-2025 Insertion of cathete r into peripheral vein [facility] Start: 03-26-2025 Introduction of urin link catheter [facility] Start: 03-26-2025 Measuring intake and output [facility] Start: 03-26-2025 Oxygen therapy [facility] Start: 03-26-2025 Providing care accor ding to standard [facility] Start: 03-26-2025 Provision of activit y privileges [facility] Start: 03-26-2025 Referral to occupati onal therapist [facility] Start: 03-26-2025 Referral to service [facility] Start: 03-26-2025 Telemedicine consult ation with patient [facility] Start: 03-26-2025 [facility] Start: 2025 Verification routine [facility] Start: 2025 Admission procedure [facility] Start: 2025 End: 03-26-2025 Consultation [facility] Start: 03-16-2025 [facility] Start: 03-05-2025 Iv infusion therapy prophylaxis/dx ea hour THER/PROPH/DIAG IV INF [facility] Start: 03-05-2025 Iv infusion therapy/prophylaxis /dx 1st to 1 hr THER/PROPH/DIAG IV INF [facility] Start: 01-02-2025 Iv infusion therapy prophylaxis/dx ea hour THER/PROPH/DIAG IV INF [facility] Start: 01-02-2025 Iv infusion therapy/prophylaxis /dx 1st to 1 hr THER/PROPH/DIAG IV INF [facility] Start: 12-05-2024 Iv infusion therapy prophylaxis/dx ea hour THER/PROPH/DIAG IV INF [facility] Start: 12-05-2024 Iv infusion therapy/prophylaxis /dx 1st to 1 hr THER/PROPH/DIAG IV INF INIT [facility] Start: 10-10-2024 Iv infusion therapy prophylaxis/dx ea hour THER/PROPH/DIAG IV INF [facility] Start: 10-10-2024 Iv infusion therapy/prophylaxis /dx 1st to 1 hr THER/PROPH/DIAG IV INF [facility] Start: 08-23-2024 Patient discharge [facility] Start: 08-20-2024 COVID-19 Vaccine () COVID-19 Vaccine () [facility] Start: 12-07-2023 Iv infusion therapy prophylaxis/dx ea hour THER/PROPH/DIAG IV INF [facility] Start: 12-07-2023 Iv infusion therapy/prophylaxis /dx 1st to 1 hr THER/PROPH/DIAG IV INF [facility] Start: 09-07-2023 Iv infusion therapy prophylaxis/dx ea hour THER/PROPH/DIAG IV INF [facility] Start: 09-07-2023 Iv infusion therapy/prophylaxis /dx 1st to 1 hr THER/PROPH/DIAG IV INF [facility] Start: 05-10-2023 Iv infusion therapy prophylaxis/dx ea hour THER/PROPH/DIAG IV INF [facility] Start: 05-10-2023 Iv infusion therapy/prophylaxis /dx 1st to 1 hr THER/PROPH/DIAG IV INF [facility] Start: 04-05-2023 Iv infusion therapy prophylaxis/dx ea hour THER/PROPH/DIAG IV INF [facility] Start: 04-05-2023 Iv infusion therapy/prophylaxis /dx 1st to 1 hr THER/PROPH/DIAG IV INF [facility] Start: 03-08-2023 Iv infusion therapy prophylaxis/dx ea hour THER/PROPH/DIAG IV INF [facility] Start: 03-08-2023 Iv infusion therapy/prophylaxis /dx 1st to 1 hr THER/PROPH/DIAG IV INF [facility] Start: 02-03-2023 Iv infusion therapy prophylaxis/dx ea hour THER/PROPH/DIAG IV INF [facility] Start: 02-03-2023 Iv infusion therapy/prophylaxis /dx 1st to 1 hr THER/PROPH/DIAG IV INF [facility] Start: 01-05-2023 Iv infusion therapy prophylaxis/dx ea hour THER/PROPH/DIAG IV INF [facility] Start: 01-05-2023 Iv infusion therapy/prophylaxis /dx 1st to 1 hr THER/PROPH/DIAG IV INF [facility] Start: 12-08-2022 Iv infusion therapy prophylaxis/dx ea hour THER/PROPH/DIAG IV INF [facility] Start: 12-08-2022 Iv infusion therapy/prophylaxis /dx 1st to 1 hr THER/PROPH/DIAG IV INF [facility] Start: 11-04-2022 Iv infusion therapy prophylaxis/dx ea hour THER/PROPH/DIAG IV INF [facility] Start: 11-04-2022 Iv infusion therapy/prophylaxis /dx 1st to 1 hr THER/PROPH/DIAG IV INF [facility] Start: 10-07-2022 Iv infusion therapy prophylaxis/dx ea hour THER/PROPH/DIAG IV INF [facility] Start: 10-07-2022 Iv infusion therapy/prophylaxis /dx 1st to 1 hr THER/PROPH/DIAG IV INF [facility] Start: 09-09-2022 Iv infusion therapy prophylaxis/dx ea hour THER/PROPH/DIAG IV INF [facility] Start: 09-09-2022 Iv infusion therapy/prophylaxis /dx 1st to 1 hr THER/PROPH/DIAG IV INF [facility] Start: 09-04-2022 ADVANCE DIRECTIVE DISCUSSION ADVANCE DIRECTIVE DISCUSSION [facility] Start: 09-04-2022 DEPRESSION ASSESSMENT DEPRESSION ASS ESSMENT [facility] Start: 08-04-2022 Iv infusion therapy prophylaxis/dx ea hour THER/PROPH/DIAG IV INF [facility] Work Phone: Start: 08-04-2022 Iv infusion therapy/prophylaxis /dx 1st to 1 hr THER/PROPH/DIAG IV INF [facility] Work Phone: Start: 07-08-2022 Iv infusion therapy prophylaxis/dx ea hour THER/PROPH/DIAG IV INF [facility] Work Phone: Start: 07-08-2022 Iv infusion therapy/prophylaxis /dx 1st to 1 hr THER/PROPH/DIAG IV INF [facility] Work Phone: Start: 05-06-2022 Iv infusion therapy prophylaxis/dx ea hour THER/PROPH/DIAG IV INF [facility] Work Phone: Start: 05-06-2022 Iv infusion therapy/prophylaxis /dx 1st to 1 hr THER/PROPH/DIAG IV INF [facility] Work Phone: Start: 04-08-2022 Iv infusion therapy prophylaxis/dx ea hour THER/PROPH/DIAG IV INF [facility] Work Phone: Start: 04-08-2022 Iv infusion therapy/prophylaxis /dx 1st to 1 hr THER/PROPH/DIAG IV INF [facility] Work Phone: Start: 03-04-2022 Iv infusion therapy prophylaxis/dx ea hour THER/PROPH/DIAG IV INF [facility] Work Phone: Start: 03-04-2022 Iv infusion therapy/prophylaxis /dx 1st to 1 hr THER/PROPH/DIAG IV INF [facility] Work Phone: Start: 02-04-2022 Iv infusion therapy prophylaxis/dx ea hour THER/PROPH/DIAG IV INF [facility] Work Phone: Start: 02-04-2022 Iv infusion therapy/prophylaxis /dx 1st to 1 hr THER/PROPH/DIAG IV INF [facility] Work Phone: Start: 12-03-2021 Iv infusion therapy prophylaxis/dx ea hour THER/PROPH/DIAG IV INF [facility] Work Phone: Start: 12-03-2021 Iv infusion therapy/prophylaxis /dx 1st to 1 hr THER/PROPH/DIAG IV INF [facility] Work Phone: Start: 09-04-2021 ADVANCE DIRECTIVE DISCUSSION ADVANCE DIRECTIVE DISCUSSION [facility] Start: 09-04-2021 DEPRESSION ASSESSMENT DEPRESSION ASS ESSMENT [facility] Start: 06-23-2021 LIPID SCREEN LIPID SCREEN [facility] Start: 06-23-2019 DIABETES SCREEN DIABETES SCREEN [facility] Start: 06-13-2019 PNEUMOCOCCAL: 65+ (4 - PPSV23 if available, else PCV20) PNEUMOCOCCAL: 65+ (4 - PPSV23 if available, else PCV20) [facility] Start: 09-26-2018 Colonoscopy COLONOSCOPY [facility] Start: 09-26-2018 COLORECTAL CANCER SCREENING COLORECTAL CANCER SCREENING [facility] Start: 07-20-2014 FECAL OCCULT BLOOD FECAL OCCULT BLOO D [facility] Start: 1997 COLOGUARD (FIT-DNA) COLOGUARD (FIT-D NA) [facility] Start: [address] COLONOGRAPHY [facility] Start: 1997 SIGMOIDOSCOPY SIGMOIDOSCOPY [facility] Start: 1971 SHINGRIX VACCINE (1 of 2) DILLON GRIX VACCINE (1 of 2) [facility] Start: 1970 HEPATITIS [facility] Start: 1970 Hepatitis C screening Hepatitis C [facility] Start: 1964 Depression Monitoring Depression Mon [facility] Start: 1952 Lipid panel Lipid Panel [facility] Start: 1952 Medicare Annual Well ness (AWV) Medicare Annual Wellness (AWV) [facility] Start: 1950 Screening for malign ant neoplasm of colon [facility] Alanine aminotransfe rase [Enzymatic activity/volume] in Serum or Plasma [facility] Albumin [Mass/volume ] in Serum or Plasma [facility] Alkaline phosphatase [Enzymatic activity/volume] in Serum or Plasma [facility] Anion gap in Serum o r Plasma [facility] Bilirubin, total measurement [facility] BUN/Creatinine ratio [facility] Calcium [Mass/volume ] in Serum or Plasma [facility] Carbon dioxide, tota l [Moles/volume] in Central venous blood [facility] Creatinine [Mass/vol ume] in Serum or Plasma [facility] Erythrocyte mean corpuscular volume determination [facility] Glucose [Mass/volume ] in Serum or Plasma [facility] Hematocrit [Volume Fraction] of Blood [facility] Hemoglobin [Mass/vol ume] in Blood [facility] Leukocytes [#/volume ] in Blood [facility] Mean corpuscular hemoglobin concentration determination [facility] Mean corpuscular hemoglobin determination [facility] Measurement of renal function [facility] Neutrophil count [facility] Neutrophil percent differential count [facility] Patient Education Understanding Parkinson Disease Parkinson Disease Emotions [facility] Work Phone: Patient referral [facility] Work Phone: Platelets [#/volume] in Blood [facility] Potassium measurement [facility] Procalcitonin [Mass/volume] in Serum or Plasma by Immunoassay [facility] Red blood cell count [facility] Red cell distributio n width determination [facility] Serum chloride measurement [facility] Sodium measurement [facility] Tissue exam [facility] Work Phone: Comment on above: Release Upon Orderin g for 1 Occurrences starting 03/18/2025, 1 completed Total protein measurement [facility] Urea nitrogen [Mass/volume] in Serum or Plasma [facility] Carotid arteries [facility] Carotid arteries [facility] Immunizations Immunization Date Immunization Notes Care Provider [facility] 06-25-2024 influenza virus vacc ine, unspecified formulation Bhanu Monika DO Work Phone: [facility] 12-09-2020 Covid (Moderna) Dr. Ethan Hagan Work Phone: [facility] 11-11-2020 Covid (Moderna) Dr. Ethan Hagan Work Phone: [facility] 06-25-2016 influenza, injectabl e, quadrivalent, contains preservative Florence Eugene OT/L [facility] 06-25-2016 tetanus toxoid, redu manas diphtheria toxoid, and acellular pertussis vaccine, adsorbed Florence Eugene OT/L [facility] 07-17-2015 pneumococcal conjuga te vaccine, 13 valent Florence Eugene OT/L [facility] Work Phone: 06-18-2015 influenza, high dose seasonal, preservative-free Florence Eugene OT/L [facility] 06-13-2014 influenza, seasonal, injectable Florence Eugene OT/L [facility] 06-13-2014 pneumococcal polysaccharide vaccine, 23 valent Florence Sainzinik OT/L [facility] 07-11-2013 influenza virus vacc ine, unspecified formulation Florence Eugene OT/L [facility] 07-14-2009 novel influenza-H1N1 -09, all formulations Florence Eugene OT/L [facility] Work Phone: 05-04-2007 pneumococcal polysaccharide vaccine, 23 valent Florence Sainzinik OT/L [facility] Work Phone: 05-04-2007 tetanus toxoid, redu manas diphtheria toxoid, and acellular pertussis vaccine, adsorbed Florence Sainzinik OT/L [facility] Work Phone: 05-04-1994 diphtheria and tetan us toxoids, adsorbed for pediatric use Florence Hopek OT/L [facility] Work Phone: Payers Date Payer Category Payer Medicare supplementa l policy (as second payer) O MEDICARE SUPPLEMENT [id number] 2024 Self-pay [id number] 2022 Unknown O O MEDICARE SUPPLEMENT [id number] 2022-Present [phone] [address] [place] [address] Indemnity [id number] 2022 Unknown [id number] 2017 Medicare [id number] 2017 Medicare [id number] Medicare [id number] Unknown [id number] .462 Unknown [id number] 2.16840.1.870601.3.579.2 .462 Unknown [id number] 2.16840.1.031298.3.579.2 .462 Unknown [id number] 2.16.840.1.135463.3.579.2 .462 Unknown [id number] 2.16840.1.533317.3.579.2 .462 Unknown [id number] 2.840.1.117846.3.579.2 .462 Unknown [id number] 2.16.840.1.305501.3.579.2 .462 Unknown [id number] 2.16.840.1.805958.3.579.2 .462 Unknown [id number] 2.16840.1.042250.3.579.2 .462 Unknown [id number] 2.840.1.106893.3.579.2 .462 Unknown [id number] 2.16.840.1.681034.3.579.2 .462 Unknown [id number] 2.16.840.1.407226.3.579.2 .462 Unknown [id number] 2.16.840.1.626784.3.579.2 .462 Unknown [id number] 2.16840.1.497764.3.579.2 .462 Unknown [id number] 2.16.840.1.307246.3.579.2 .462 Unknown [id number] 2.16.840.1.052430.3.579.2 .462 Unknown [id number] 2.16.840.1.697194.3.579.2 .462 Unknown [id number] 2.16.840.1.748663.3.579.2 .462 Unknown [id number] 2.16.840.1.286444.3.579.2 .462 Unknown [id number] 2.16.840.1.432227.3.579.2 .462 Unknown [id number] 2.16.840.1.066005.3.579.2 .462 Unknown [id number] 2.16.840.1.354516.3.579.2 .462 Unknown [id number] 2.16.840.1.438854.3.579.2 .462 Unknown [id number] 2.16.840.1.829169.3.579.2 .462 Unknown [id number] 2.16.840.1.596576.3.579.2 .462 Unknown [id number] 2.16.840.1.652807.3.579.2 .462 Unknown [id number] 2.16.840.1.430594.3.579.2 .462 Social History Date Type Detail Facility Start: 09-06-2021 End: 10-10-2023 Tobacco smoking status TNIS Unknown if ever smoked [facility] Start: 12-12-2020 Spouse/ Significant Other [facility] Start: 12-24-2020 Non-smoker [facility] Start: 1950 Sex Assigned At Male [facility] Start: 08-27-2021 End: 03-26-2025 Tobacco smoking status NHIS Never smoked tobacco [facility] Start: 08-27-2021 End: 12-29-2022 Tobacco use and exposure Smokeless tobacco non-user [facility] Start: 04-20-2022 End: 12-29-2022 Alcohol intake Current non-drinker of alcohol (finding) [facility] Start: 1950 Sex Assigned At Not on file [facility] Start: 11-08-2024 End: 03-16-2025 Sex Male (finding) [facility] Start: 03-16-2025 History of Social function [facility] Start: 03-16-2025 Alcohol Use Disorder Identification Test - Consumption [AUDIT-C] [facility] How often to you hav e a drink containing alcohol? Never [facility] How many standard dr inks containing alcohol do you have on a typical day? Patient does not drink [facility] Goals Date Patient Goal Desired Activity /State Functional Status Date Assessment Result Facility 03-27-2025 Functional status Chair [facility] Work Phone: 03-16-2025 Total score [AUDIT-C] 0 03/16/20 25 6:27 AM Martha Huerta RN [facility] Mental Status Date Assessment Result Facility 05-07-2025 Cognitive function Voice/Name [facility] Work Phone: 04-09-2025 Cognitive function Voice/Name [facility] Work Phone: 03-27-2025 Cognitive function Cooperative;D istractible;Impul sive [facility] Work Phone: 03-27-2025 Cognitive function Voice/Name [facility] Work Phone: 03-05-2025 Cognitive function Voice/Name [facility] Work Phone: 02-05-2025 Cognitive function Voice/Name [facility] Work Phone: 01-02-2025 Cognitive function Voice/Name [facility] Work Phone: 12-05-2024 Cognitive function Awake;Alert;A ppropriate;Follow s Commands [facility] Work Phone: 11-07-2024 Cognitive function Voice/Name [facility] Work Phone: 10-10-2024 Cognitive function Voice/Name [facility] Work Phone: 09-05-2024 Cognitive function Voice/Name [facility] Work Phone: 08-23-2024 Cognitive function Level Of Cons ciousness Follows Commands;Drowsy [facility] Work Phone: 08-23-2024 Cognitive function Voice/Name [facility] Work Phone: 07-11-2024 Cognitive function Awake;Alert;A ppropriate;Follow s Commands [facility] Work Phone: 01-04-2024 Cognitive function Awake;Alert;A ppropriate;Follow s Commands [facility] Work Phone: 12-07-2023 Cognitive function Awake;Alert;A ppropriate;Follow s Commands [facility] Work Phone: 11-09-2023 Cognitive function Awake;Alert;A ppropriate;Follow s Commands [facility] Work Phone: 10-05-2023 Cognitive function Awake;Alert;A ppropriate;Follow s Commands [facility] Work Phone: 09-07-2023 Cognitive function Awake;Alert;A ppropriate;Follow s Commands [facility] Work Phone: 08-10-2023 Cognitive function Voice/Name [facility] [place] Work Phone: 07-06-2023 Cognitive function Voice/Name [facility] Work Phone: 06-08-2023 Cognitive function Awake;Alert;A ppropriate;Follow s Commands [facility] Work Phone: 05-10-2023 Cognitive function Voice/Name [facility] [place] Work Phone: 04-05-2023 Cognitive function Voice/Name [facility] [place] Work Phone: 03-08-2023 Cognitive function Voice/Name [facility] Work Phone: 02-03-2023 Cognitive function Awake;Alert;A ppropriate;Follow s Commands [facility] Work Phone: 01-05-2023 Cognitive function Voice/Name [facility] [place] Work Phone: 12-08-2022 Cognitive function Voice/Name [facility] Work Phone: 11-04-2022 Cognitive function Voice/Name [facility] Work Phone: 10-07-2022 Cognitive function Awake;Alert;A ppropriate;Follow s Commands [facility] Work Phone: 08-04-2022 Cognitive function Voice/Name [facility] [place] Work Phone: 07-08-2022 Cognitive function Voice/Name [facility] [place] Work Phone: 06-10-2022 Cognitive function Voice/Name [facility] Work Phone: 05-06-2022 Cognitive function Level Of Cons ciousness Awake;Alert;Appropriate;Follow s Commands [facility] Work Phone: 04-08-2022 Cognitive function Level Of Cons ciousness Awake;Alert;Appropriate;Follow s Commands [facility] Work Phone: 03-04-2022 Cognitive function Voice/Name [facility] [place] Work Phone: 02-04-2022 Cognitive function Awake;Alert;A ppropriate;Follow s Commands [facility] Work Phone: 01-07-2022 Cognitive function Awake;Alert;A ppropriate;Follow s Commands [facility] Work Phone: 12-03-2021 Cognitive function Awake;Alert;A ppropriate;Follow s Commands [facility] Work Phone: 11-05-2021 Cognitive function Awake;Alert;A ppropriate;Follow s Commands [facility] Work Phone: 10-08-2021 Cognitive function Level Of Cons ciousness Awake;Alert;Appropriate;Follow s Commands [facility] Work Phone: 09-10-2021 Cognitive function Awake;Alert;A ppropriate;Follow s Commands [facility] Work Phone: Clinical Notes 07-11-2013 to 04-08-2025 Telephone Encounter - Sandra Niall Villa - 04/08/2025 11:04 AM EDTTelephone Encounter - Sandra Niall Villa - 04/08/2025 11:04 AM EDTTelephone Encounter - Aiyana Norman - 04/07/2025 6:32 PM EDT Note Date & Type Note Facility 04-08-2025 Telephone encounter Note Spoke with patient's , we did not reschedule as of yet due to medical issues. Our office will contact her back after speaking with Dr. Jarrett. [facility] 04-08-2025 Miscellaneous Notes Spoke with patient's , we did not reschedule as of yet due to medical issues. Our office will contact her back after speaking with Dr. Jarrett. Name of Caller: [facility] Contact Reason for Appointment: [facility] called to cancel patient's 04/09/25 post-op appointment. [facility] stated patient has been in and out of hospital since his surgery. [facility] stated patient just moved into an assisted living today. Please contact [facility] and almae. Office Name: General Surgery Medication Refills need, if any: n/a Medication Name: n/a documented in this encounter [facility] 04-07-2025 Telephone encounter Note Name of Caller: [facility] Contact Reason for Appointment: [facility] called to cancel patient's 04/09/25 post-op appointment. [facility] stated patient has been in and out of hospital since his surgery. [facility] stated patient just moved into an assisted living today. Please contact [facility] and advise. Office Name: General Surgery Medication Refills need, if any: n/a Medication Name: n/a [facility] 04-07-2025 Note [place], [place] DISCHARGE SUMMARY NAME: FRANCISCO RAMOS UNIT #: [id number] ROOM: 311 DOCTOR: DELFINO ARCE MD BIRTHDATE: [birth year] DOS: 04/07/2025 CHIEF COMPLAINT: I came in on Monday and I have Parkinson's, FYI. HISTORY OF PRESENT ILLNESS: This is a 75-year-old white male who was transferred to [facility] from [facility] Emergency Room. The patient had been taken there by EMS. After the police were called to his home after a birthday libertarian, the patient became increasingly confused and combative with his and daughter. He became physically aggressive. His no longer felt that she could take care of him as these combative aggressive periods have been increasing in frequency and intensity. He became increasingly agitated and aggressive, necessitating then an inpatient stay into the psychiatric unit to rule out organic factors and to stabilize on medication. SUMMARY OF THE HOSPITAL COURSE: The patient was admitted to the unit where his Namenda was increased to its maximum dose of 10 mg b.i.d. Exelon patch was started at 4.6 mg a day. His other psychiatric medications, Wellbutrin was discontinued. Lexapro was discontinued as was Seroquel. Depakote sprinkles were utilized at 125 mg t.i.d. to decrease his mood lability in a way where we would not exacerbate his Parkinsonian symptoms. Depakote was eventually brought up to its maximum dose during his stay of 250 mg t.i.d. During the rest of his stay, the rivastigmine patch was brought to its maximum dose of 13.3 mg a day. Seroquel was restarted later at a dose of 50 mg at bedtime and 25 mg at 1600 hours. With this combination of medications, he had a dramatic improvement. He no longer was combative. He was pleasant, bright and engaging. Sleep and appetite were normal. He convincingly denied any medication side effects. He had improved insufficiently. The patient is not returning home. Instead, he is going to [facility]. MENTAL STATUS AT DISCHARGE: He is alert and oriented to person, possibly place but not time. Mood is euthymic. Affect appropriate. There is no hypomania, stoney or psychosis noted. Short-term memory is poor. FINAL DIAGNOSES: Upon discharge, intermittent explosive disorder, Alzheimer's dementia. DISPOSITION: The patient is going to [facility]. At the time of discharge, he was medically and psychiatrically stable. DELFINO ARCE MD WP/[facility] [place], [place] DISCHARGE SUMMARY NAME: FRANCISCO RAMOS UNIT #: [id number] ROOM: [facility] DOCTOR: DELFINO ARCE MD BIRTHDATE: [birth year] TID: [id number] CM:DISCHARG [id number] DELFINO ARCE MD 04/07/[address] [facility] 03-27-2025 Discharge summary [facility] 03-27-2025 Discharge summary Note Date/Time March 27, 2025 1:05pm [facility] Medical Records Department [address] [place] [address] Instructions for Home/Discharge Instructions 03/27/25 1016 MR#: [id number] Acct: [id number] Name: FRANCISCO RAMOS Rep #:[id number] : 1950 75 From: Jessica Chris MD PCP: Dr. Ethan Avendano MD Status:ADM RENATE Discharge Instructions DC O2, CPAP, BIPAP needs Home O2 Discharge instructions: No Dressing / Incision Discharge Activity: Return to Normal Activity Weight Bearing Status: Weight bearing as tolerated Dressing / Incision Call your doctor if you observe: Fever of 101 or Higher, Shortness of breath, Dizziness, Swelling in the ankles and Chest pain Follow Up Care Test Results: Test results from this visit will be discussed in further detail at your follow-up appointment, if applicable. Discharge Plan Admission Admit Date/Time: 07/22/25 22:59 Primary Reason for Your Visit: parkinson's disease with behavioral disturbance Attending Provider: Jessica Chris Primary Care Provider: Ethan Avendano Consulting Providers: Lacy Johnston Instructions Patient Instructions: Understanding Parkinson Disease, Parkinson Disease Emotions Discharge Orders/Prescriptions Prescriptions: Continued immun glob O-dxc-jxta-IgA 0-50 10 gram recon soln 20 g .Route .l4bnmol Patient Comments: Every 4 weeks Rx Instructions: IV every 4 weeks nitroglycerin 0.4 mg tablet, sublingual 0.4 mg sublingual Q5-15M PRN (Reason: chest pain) Qty: 25 3RF Rx Instructions: until response; do not exceed 3 doses per episode aspirin [Adult Low Dose Aspirin] 81 mg tablet,delayed release (DR/EC) 81 mg PO DAILY Patient Comments: verified per pt med list from PCP carbidopa-levodopa 25-100 mg tablet 1 tab PO [...] Qty: 20 0RF memantine 5 mg tablet 5 mg PO BID levothyroxine 25 mcg tablet 25 mcg PO DAILY mirtazapine 30 mg tablet 15 - 30 mg PO QHS rosuvastatin 20 mg tablet 20 mg PO QHS bupropion HCl 300 mg tablet extended release 24 hr 300 mg PO DAILY melatonin 10 mg tablet 10 mg PO QHS carbidopa-levodopa 50-200 mg tablet extended release 1 tab PO 4X/DAY Rx Instructions: divide evenly over waking hours Referrals / Follow Up: Ethan Avendano MD [Primary Care Provider] - Within 1 Week Disposition Disposition (needs filled in before D/C Order can be placed): Psychiatric Hospital or Unit 03/27/25 1016<Electronically signed by Jessica Chris MD>Jessica Chris MD CC: Dr. Lacy Johnston MD; Dr. Ethan Avendano MD ~ Signed [facility] Work Phone: 1(978) 546-553907-24-2025 [facility] Medical Records Department [address] [place] [address] Discharge Summary 03/27/25 1018 MR#: [id number] Acct: [id number] Name: FRANCISCO RAMOS Rep #: [id number] : 1950 75 From: Jessica Chris MD PCP: Dr. Ethan Avendano MD Status:DIS RENATE Location: [place] [id number] Providers Date of Admission: 03/25/25 Date of Discharge: 03/27/25 Primary Care Physician: Dr. Ethan Avendano MD Reason For Visit: AGITATION WITH PD, ADULT FTT Diagnosis Discharge Diagnosis (1) History of Parkinson disease: Status: Acute Code(s): Z86.69 - Personal history of other diseases of the nervous system and sense organs (2) Combative behavior: Status: Acute Code(s): R46.89 - Other symptoms and signs involving appearance and behavior Plan #Chronic Parkinson's disease with behavioral disturbance * on sinemet and memantine * CT brain showed no acute intracranial pathology. * PT/OT on board. * #Anxiety and depression: on lexapro and bupropion. #CAD s/p PCI: on aspirin, statiin. #Hypertension: med list being clarified. IV hydralazine prn #BPH with obstructive uropathy: s/p TURP. DVT prophylaxis: lovenox Code status: full code unverified. Medications at Discharge Home Medications multivitamin with folic acid 400 mcg tablet 1 tab PO DAILY 06/10/13 folic acid 400 mcg tablet 1 tab PO DAILY 12/24/13 immune glob,gamma(IgG) 10 aiyn-ooz-jpwk-IgA 0 to 50 mcg/mL IV solution 20 g .Route .[id number] 03/04/19 nitroglycerin 0.4 mg sublingual tablet 0.4 mg sublingual Q5-15M PRN chest pain #25 tabs 04/03/19 ibuprofen 600 mg tablet 600 mg PO Q6H PRN pain #20 tabs 12/30/20 aspirin 81 mg tablet,delayed release (Adult Low Dose Aspirin) 81 mg PO DAILY 01/05/21 memantine 5 mg tablet 5 mg PO BID 02/01/23 rosuvastatin 40 mg tablet 40 mg PO QHS 10/10/23 bupropion HCl 100 mg tablet,12 hr sustained-release 100 mg PO QAM 11/28/24 carbidopa 25 mg-levodopa 100 mg tablet 1 tab PO .qid 11/28/24 escitalopram oxalate 5 mg tablet (Lexapro) 10 mg PO DAILY 11/28/24 bupropion HCl 300 mg 24 hr tablet, extended release 300 mg PO DAILY 03/26/25 carbidopa ER 50 mg-levodopa 200 mg tablet,extended release 1 tab PO 4X/DAY 03/26/25 levothyroxine 25 mcg tablet 25 mcg PO DAILY 03/26/25 melatonin 10 mg tablet 10 mg PO QHS 03/26/25 mirtazapine 30 mg tablet 15 - 30 mg PO QHS 03/26/25 rosuvastatin 20 mg tablet 20 mg PO QHS 03/26/25 Hospital Course Operations None Procedures None Summary of Care Provided Minutes Spent on Discharge: 42 Hospital Course: Patient is a 75-year-old male with past medical history as outlined which includes Parkinson's disease and recent onset of behavioral disturbance was admitted through the ED on 2025 on account of agitation, being combative and confused at home. His spouse called the police and he was brought in by the squad. Family did not feel comfortable taking him home on account of his combative behavior which was likely due to the underlying Parkinson's disease. Urinalysis only showed 1+ bacteria but he did not really have any symptoms of UTI. CT of the brain showed no acute intracranial pathology. He was admitted to be managed for failure to thrive with Parkinson's disease and behavioral disturbance. On admission neurology was consulted by the hospitalist was contacted by the neurologist who said they felt that the patient's symptoms were likely due to his Parkinson's disease and they did not manage the behavioral disturbance aspect of it. Consult was therefore canceled. Patient was reviewed by mental health crisis team and he was accepted in a [facility] psych facility in [place]. Of note he did receive Seroquel during this admission on account of his combativeness and agitation. He was discharged to the [facility] psych unit on 03/27/2025. He is follow-up with his primary care doctor within 1 to 2 weeks. Patient seen and examined. He had his nurse by his bedside and his sister was also by his bedside. He was counseled. He said he felt well and had no complaints. He was agitated overnight and so his Seroquel was increased to 50 mg nightly. Review of systems otherwise negative. Labs and vitals reviewed. Home medications reviewed and reconciled. Physical Exam Const alert and no apparent distress Constitutional Narrative: flat affect General Appearance: cooperative HEENT normocephalic, head/scalp atraumatic, moist oral mucous membranes and oropharynx normal Mouth: oral and palatal mucosa normal Eyes PERRL, EOMs intact bilaterally and conjunctivae normal Neck no lymphadenopathy and supple Lymph Lymphatic: no lymphadenopathy noted Resp normal respiratory effort, normal air movement and clear to auscultation bilaterally Cardio regular rate, regular rhythm, S1 normal heart sound, S2 normal heart sound and no murmurs GI normal to inspection, nondistended, normoactive bowel sounds, so (more content not included)...[facility]07-23-2025 Progress note Author Lacy Johnston [facility] Note Date/Time March 26, 2025 9:54 pm [facility] Medical Records Department [address] [place] [address] Progress Note - Hospitalist 03/26/252152 MR#: [id number] Acct: [id number] Name: GEETAFRANCISCO DEION Rep #:[id number] : 1950 75 From: Lacy Johnston MD PCP: Dr. Ethan Avendano MD Status:ADM RENATE Location: [place] [address] Hospitalist Note Patient with continued agitation, more calm during the day, will increase seroquel to 50 mg q HS. 03/26/252153 <Electronically signed by Lacy Johnston MD> Cosigner Signature (if applicable): CC: ~ Signed [facility] Work Phone: 1(777) 463-430607-23-2025 Progress note [facility] Medical Records Department [address] [facility] [place] [address] Progress Note - Hospitalist 03/26/252152 MR#: [id number] Acct: [id number] Name: FRANCISCO RAMOS Rep #:[id number] : 1950 75 From: Lacy Johnston MD PCP: Dr. Ethan Avendano MD Status:ADM RENATE Location: MS3 [id number] Hospitalist Note Patient with continued agitation, more calm during the day, will increase seroquel to 50 mg q HS. 03/26/252153 Cosigner Signature (if applicable): CC: ~ Signed [facility]07-23-2025 Progress note Author Jessica Chris [facility] Note Date/Time March 26, 2025 4:57 pm [facility] Medical Records Department [address] [place] [address] Progress Note 03/26/25 1417 MR#: [id number] Acct: [id number] Name: FRANCISCO RAMOS Rep #:[id number] : 1950 75 From: Jessica Chris MD PCP: Dr. Ethan Avendano MD Status:ADM RENATE Location: AL3 [id number] Subjective Subjective Patient seen and examined. His sister was by his bedside. He had no active complaints. He was a bit agitated this morning. Review of systems is otherwise negative. Objective Data Objective Data Vital Signs: Vital Signs Temp Pulse Resp BP Pulse Ox O2 Del Method 98.1 F 85 16 127/64 H 99 Room Air 03/26/25 14:02 03/26/25 14:02 03/26/25 14:02 03/26/25 14:02 03/26/25 14:02 03/26/25 14:02 Oxygen Delivery Method Room Air Weight: 0 oz Body Mass Index (BMI) 0.0 Intake & Output: Intake and Output for Last 24 Hours 03/24/25 03/25/25 03/26/25 23:59 23:59 23:59 Intake Total 300 / 300 Output Total 200 / 200 Balance 100 / 100 Lab / Micro Data 03/26/25 08:19 03/26/25 08:19 Labs: Laboratory Results - last 24 hr 03/25/25 21:15: WBC 5.6, RBC 4.27 L, Hgb 13.2, Hct 38.6 L, MCV 90.4, MCH 30.9, MCHC 34.2, RDW Std Deviation 43.5, RDW Coeff of Lou 13.2, Plt Count 162, MPV 10.0, Immature Gran % (Auto) 1.100 H, Neut % (Auto) 81.0 H, Lymph % (Auto) 10.2 L, Dickinson % (Auto) 7.5, Eos % (Auto) 0.0, Baso % (Auto) 0.2, Absolute Neuts (auto)4.5, Absolute Lymphs (auto) 0.57 L, Nucleated RBC % 0, Sodium 138, Potassium 4.4, Chloride 100, Carbon Dioxide 26.2, Anion Gap 11, BUN 22 H, Creatinine 1.22 H, Estim Creat Clear Calc 50.42, Est GFR (MDRD) Non-Af 63, BUN/Creatinine Ratio 17.9, Glucose 135 H, Calcium 9.5, Phosphorus 2.0 L, Magnesium 1.9, Procalcitonin0.08, Ethyl Alcohol < 10.1 03/25/25 22:17: Urine Color Yellow, Urine Clarity Clear, Urine pH 7.0, Ur Specific Conover 1.010, Urine Protein 15 H, Urine Glucose (UA) Normal, Urine Ketones 5 H, Urine Occult Blood Negative, Urine Nitrite Negative, Urine Bilirubin Negative, Urine Urobilinogen Normal, Ur Leukocyte Esterase Negative, Urine RBC 5-10 SEEN, Urine WBC 0-5 SEEN, Ur Squamous Epith Cells 0-5 SEEN, UrineBacteria 1+, Urine Mucus 0 SEEN, Urine Opiates Screen NEGATIVE, U Buprenorphine Qual NEGATIVE, Ur Oxycodone Screen NEGATIVE, Urine Methadone Screen NEGATIVE, Urine Fentanyl Screen NEGATIVE, Ur Barbiturates Screen NEGATIVE, Ur Phencyclidine Scrn NEGATIVE, Ur Amphetamines Screen NEGATIVE, U Benzodiazepines Scrn NEGATIVE, Urine Cocaine Screen NEGATIVE, U Cannabinoids Screen NEGATIVE 03/26/25 08:19: WBC 5.5, RBC 4.35 L, Hgb 13.4, Hct 39.3 L, MCV 90.3, MCH 30.8, MCHC 34.1, RDW Std Deviation 43.4, RDW Coeff of Lou 13.1, Plt Count , MPV 10.5, Immature Gran % (Auto) 0.700, Neut % (Auto) 75.3 H, Lymph % (Auto) 13.7 L, Dickinson % (Auto) 9.9, Eos % (Auto) 0.0, Baso % (Auto) 0.4, Absolute Neuts (auto) 4.2, Absolute Lymphs (auto) 0.76 L, Nucleated RBC % 0, Platelet Estimate SLT DEC, Sodium 138, Potassium 4.3, Chloride 102, Carbon Dioxide 24.9, Anion Gap 11, BUN 17, Creatinine 0.84, Estim Creat Clear Calc 0.00 L*, Est GFR (MDRD) Non-Af 92, BUN/Creatinine Ratio 20.6 H, Glucose 109 H, Calcium 9.4, Total Bilirubin 0.29, AST 68 H, ALT 88 H, Alkaline Phosphatase 83, Total Protein 6.6, Albumin 4.0, Globulin 2.6, Albumin/Globulin Ratio 1.5 Radiography Diagnostic Testing: Radiology Impression Brain CT 03/25/25 21:35 IMPRESSION: No acute intracranial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 Imaging Services [address] [place] [address] Chest 1 View (Portable) MR#: [id number] Acct: [id number] Name: FRANCISCO RAMOS Rep #: [id number] : 1950 M 75 From: Ronnie Kelley DO PCP: Dr. Ethan Avendano MD Status: PRE ER Study:Chest 1 View (Portable) Date of Exam: 03/25/25 Exam# [id number] Ordering Dr: Arianna Galeana MD PROCEDURE: CHEST [...] No acute cardiopulmonary process identified. Reading Location: [facility] CC: Dr. Ethan Avendano MD; Dr. Mnany Galeana MD ~ Shade Matcher: Signed [facility]07-18-2025 Miscellaneous Notes* Care Plan - Lu Bee RN - 03/21/2025 11:31 AM EDT Problem: Safety - Non-violent/Interference with Medical Treatment Restraint Goal: Remains free of injury from restraints (Restraint for Interference with Training Technician) Outcome: Progressing Goal: Free from restraint(s) (Restraint for Interference with Training Technician) Outcome: Progressing Problem: Problem Interventions Goal: Assess Nutritional Intake Outcome: Progressing * Care Coordination - Cassia Dexter - 03/21/2025 10:54 AM EDT provided patient and with [facility] [employer]. Street card has resources such as transportation, food, utilities etc. * Care Plan - Lu Bee RN - 03/21/2025 9:55 AM EDT Problem: Safety - Non-violent/Interference with Medical Treatment Restraint Goal: Remains free of injury from restraints (Restraint for Interference with Training Technician) Outcome: Progressing Goal: Free from restraint(s) (Restraint for Interference with Training Technician) Outcome: Progressing Problem: Problem Interventions Goal: Assess Nutritional Intake Outcome: Progressing * Home Care - [facility] Rowe - 03/21/2025 9:10 AM EDT DME order for FWW placed with Elliot from [facility]. * Home Care - [facility] - 03/21/2025 8:55 AM EDT Educated patient and on Home Care and services available. Patient is agreeable to receiving home care services at this time. Patient was given choice of home care agencies available in the area and is agreeable to having referrals made with agencies that staff the patients service location. Referrals have been sent via [employer]. Spoke with pts regarding all accepting agencies. [facility] is [facility]. Agency notified via [employer]. * Care Coordination - Unknown Case Management - 03/21/2025 8:55 AM EDT Patient Choice Patient Name: FRANCISCO RAMOS Date of : 1950 All Providers Sent Referral Name: [facility] (For [facility] Only) Phone: [phone] Address: [address] [place] [address] Name: [facility] [place] Phone: [phone] Address: [address] [place] [address] Name: [facility] Phone: [phone] Address: [address] [place] [address] Name: [facility] Address: [address] [place] [address] [facility] Phone: [phone] Address: [address] [place] [address] Name: [facility] [place] Phone: [phone] Address: [address] [place] [address] Name: [facility] Phone: [phone] Address: [address] [place] [address] Name: [facility] Phone: [phone] Address: [address] [place] [address] Name: [facility] Phone: [phone] Address: [address] [place] [address] Name: [facility] Phone: [phone] Address: [address] [facility] [address] [place] [address] Name: [facility] [address]: [address] [place] [address] Name: [facility] Address: [address] [place] [address] Name: [facility] Phone: [phone] Address: [address] [place] [address] Name: [facility] Palliative Care Phone: [phone] Address: [place] [address] Name: [facility] [place] Address: [address] [place] [address] [address]: [facility] Address: [address] [place] [address] Name: [facility] Phone: [phone] Address: [address] [place] [address] Name: [facility] Address: [address] [place] [address] Name: [facility] Address: [address] [place] [address] Name: [facility] [place] ([facility] known [facility]) Phone: [phone] Address: [address] [facility] [address] [place] [address] Name: [facility] (All Offices) Phone: [phone] Address: [address], [place] [address] Name: [facility] ([facility]) Address: [address] [facility] [place] [address] Name: [facility] Phone: [phone] Address: [address] [place] [address] * Care Coordination - Renetta Caceres RN - 03/21/2025 8:39 AM EDT Care Management Progress Note Short Medical why still here: Patient remains on H6 s/p Lap sigmoidectomy 03/18/2025 Planned Discharge Disposition: Home Health Services Active discharge order noted. TCC working with home care and social science teacher for home going. Barriers/Today we still Wait: coordinating home going with spouse Length of Stay (Days): 5 GMLOS: 4.9 * Care Plan - Kitty Aguilar RN - 03/21/2025 5:26 AM EDT Problem: Safety - Non-violent/Interference with Medical Treatment Restraint Goal: Remains free of injury from restraints (Restraint for Interference with Training Technician) Outcome: Progressing Goal: Free from restraint(s) (Restraint for Interference with Training Technician) Outcome: Progressing * Home Care - Meghan Sheffield RN - 03/20/2025 4:09 PM EDT Due to patients history with violence against staff and code debo DE [facility] is unable to accept patient at this time. Referrals sent to other agencies to see if they are able to accept. Route Delivery Manager following case for Discharge Needs. * Care [...] other services. * Care Coordination - Renetta Caceres RN - 03/20/2025 1:29 PM EDT TCC in to speak with spouse, Gardenia. [place]ia requesting for help in the home. TCC discussed patient going to Rehab for short time, [place] declined. TCC reviewed home care and that it is just for short time throughout week. [place] agreeable to speak with social science teacher. TCC secure message socialworker to see patient. * Care Plan - Lu Bee RN - 03/20/2025 10:14 AM EDT Problem: Safety - Non-violent/Interference with Medical Treatment Restraint Goal: Remains free of injury from restraints (Restraint for Interference with Training Technician) Outcome: Progressing Goal: Free from restraint(s) (Restraint for Interference with Training Technician) Outcome: Progressing Problem: Problem Interventions Goal: Assess [...] injury from restraints (Restraint for Interference with Training Technician) Outcome: Progressing Goal: Free from restraint(s) (Restraint for Interference with Training Technician) Outcome: Progressing * Care Plan - Arjun Zhao RN - 03/19/2025 6:32 AM EDT Problem: Safety - Non-violent/Interference with Medical Treatment Restraint Goal: Remains free of injury from restraints (Restraint for Interference with Training Technician) Outcome: Progressing Goal: Free from restraint(s) (Restraint for Interference with Training Technician) Outcome: Progressing * Perioperative Nursing Note - [...] POSTOPERATIVE DIAGNOSIS: Same SURGEON: Bronson Jarrett MD PATTERN PUNCHER: Yasmin Barry OPERATION: Laparoscopic sigmoid colectomy ANESTHESIA: [...] was opened up. We then created our [place] rectal anastomosis. We had to complete anastomotic [...] Tissue TISSUE EXAM Bronson Jarrett MD 03/18/25 5177 Routine Description: SIGMOID COLON Staff: Glass Selector: Joseph Ibarra RN; Nika Schuster RN Relief Glass Selector: Gini Awan RN; Cecilia Tinajero Relief Scrub: [...] care services with pt/family until closer to al. Route Delivery Manager following case for Discharge Needs. * Care Plan - Arjun Zhao RN - 03/18/2025 6:45 AM EDT Problem: Safety - Non-violent/Interference with Medical Treatment Restraint Goal: Remains free of injury from restraints (Restraint for Interference with Training Technician) Outcome: Progressing Goal: Free from restraint(s) (Restraint for Interference with Training Technician) Outcome: Progressing * Care Coordination - Renetta [...] GMLOS: No GMLOS Documented documented in this [facility]07-18-2025 NoteProblem: Safety - Non- violent/Interference with Medical Treatment Restraint Goal: Remains free of injury from restraints (Restraint for Interference with Training Technician) Outcome: Progressing Goal: Free from restraint(s) (Restraint for Interference with Training Technician) Outcome: Progressing Problem: Problem Interventions Goal: Assess Nutritional Intake [facility]: [facility] Plan of care note* Care Plan - Lu Bee RN - 03/21/2025 11:31 AM EDT Problem: Safety - Non-violent/Interference with Medical Treatment Restraint Goal: Remains free of injury from restraints (Restraint for Interference with Training Technician) Outcome: Progressing Goal: Free from restraint(s) (Restraint for Interference with Training Technician) Outcome: Progressing Problem: Problem Interventions Goal: Assess Nutritional Intake Outcome: Progressing [facility] [id number] Note* Care Coordination - Cassia Dexter - 03/21/2025 10:54 AM EDT ADRIENNE provided patient and with [employer]. Street card has resources such as transportation, food, utilities etc. [facility] [id number] Note* Care Coordination - Cassia Dexter - 03/21/2025 10:54 AM EDT ADRIENNE provided patient and with [employer]. Street card has resources such as transportation, food, utilities etc. [place] [id number] NoteProblem: Safety - Non-violent/Interference with Medical Treatment Restraint Goal: Remains free of injury from restraints (Restraint for Interference with Training Technician) Outcome: Progressing Goal: Free from restraint(s) (Restraint for Interference with Training Technician) Outcome: Progressing Problem: Problem Interventions Goal: Assess Nutritional Intake Outcome: [facility] Plan of care note* Care Plan - Lu Bee RN - 03/21/2025 9:55 AM EDT Problem: Safety - Non-violent/Interference with Medical Treatment Restraint Goal: Remains free of injury from restraints (Restraint for Interference with Training Technician) Outcome: Progressing Goal: Free from restraint(s) (Restraint for Interference with Training Technician) Outcome: Progressing Problem: Problem Interventions Goal: Assess Nutritional Intake Outcome: Progressing [facility] [id number] Note* Home Care - Bang Rowe - 03/21/2025 9:10 AM EDT [facility] [id number] Note* Home Care - Bang Rowe - 03/21/2025 9:10 AM EDT DME [facility] for [facility]WW [facility] [id number] Note* Home Care - Bang Rowe - 03/21/2025 8:55 AM EDT Educated patient and on Home Care and services available. Patient is agreeable to receiving home care services at this time. Patient was given choice of home care agencies available in the area and is agreeable to having referrals made with agencies that staff the patients service location. Referrals have been sent via [employer]. Spoke with pts regarding all accepting agencies. [facility] is [facility]. Agency notified via [employer]. [facility] [id number] Note* Home Care - Bang Rowe - 03/21/2025 8:55 AM EDT Educated patient and on Home Care and services available. Patient is agreeable to receiving home care services at this time. Patient was given choice of home care agencies available in the area and is agreeable to having referrals made with agencies that staff the patients service location. Referrals have been sent via [employer]. Spoke with pts regarding all accepting agencies. [facility] is [facility]. Agency notified via [employer]. [facility] [id number] Note* Care Coordination - Unknown Case Management - 03/21/2025 8:55 AM EDT Patient Choice Patient Name: FRANCISCO RAMOS Date of : 1950 All Providers Sent Referral Name: [facility] (For [facility] Facilities Only) Phone: [phone] Address: [facility] [place] [address] Name: [facility] Phone: [phone] Address: [address] [facility] [facility] [address] [place] [address] Name: [facility] Phone: [phone] Address: [address] [facility] [address] [place] [address] Name: [facility] Address: [address] [place] [address] Name: [facility] Phone: [phone] Address: [address] [place] [address] Name: [facility] [place] Phone: [phone] Address: [address] [place] [address] Name: [facility] Phone: [phone] Address: [address] [facility] [address] [place] [address] Name: [facility] [place] Phone: [phone] Address: [address] [facility] [place] [address] Name: [facility] Phone: [phone] Address: [address] [place] [address] Name: [facility] Phone: [phone] Address: [address] [facility] [address] [place] [address] Name: [facility] Address: [address] [place] [address] Name: [facility] Address: [address] [facility] [address] [place] [address] Name: [facility] Phone: [phone] Address: [address] [place] [address] Name: [facility] Phone: [phone] Address: [place] [address] Name: [facility] Address: [address] [place] [address] Name: [facility] Address: [address] [place] [address] Name: [facility] Phone: [phone] Address: [address] [place] [address] Name: [facility] Address: [address] [facility] [address] [place] [address] Name: [facility] Address: [address] [facility] [address] [facility] [address] [place] [address] Name: [facility] [place] ([facility]) Phone: [phone] Address: [address] [facility] [address] [address] [place] [address] Name: [facility] (All Offices) Phone: [phone] Address: [address] [address] Name: [facility] ([facility]) Address: [address] [facility] [place] [address] Name: [facility] Phone: [phone] Address: [address] [place] [address] [place] [id number] Note* Care Coordination - Unknown Case Management - 03/21/2025 8:55 AM EDT Patient Choice Patient Name: FRANCISCO RAMOS Date of : 1950 All Providers Sent Referral Name: [facility] (For [facility] Facilities Only) Phone: [phone] Address: [address] [place] [address] Name: [facility] Phone: [phone] Address: [address] [facility] [address] [place] [address] Name: [facility] Phone: [phone] Address: [address] [facility] [address] [place] [address] Name: [facility] Address: [address] [facility] [address] [place] [address] Name: [facility] Phone: [phone] Address: [place] [address] Name: [facility] [place] Phone: [phone] Address: [address] [place] [address] Name: [facility] Phone: [phone] Address: [address] [facility] [address] [place] [address] Name: [facility] [place] Phone: [phone] Address: [address] [place] [address] Name: [facility] Phone: [phone] Address: [address] [place] [address] Name: [facility] [place] Phone: [phone] Address: [address] [facility] [address] [place] [address] Name: [facility] Address: [address] [place] [address] Name: [facility] Address: [address] [facility] [address] [place] [address] Name: [facility] Phone: [phone] Address: [facility] [place] [address] Name: [facility] Care Phone: [phone] Address: [place] [address] Name: [facility] [place] Address: [address] [facility] [address] [place] [address] Name: [facility] Address: [address] [facility] [place] [address] Name: [facility] Phone: [phone] Address: [address] [place] [address] Name: [facility] Address: [address] [facility] [address] [place] [address] Name: [facility] Address: [address] [facility] [address] [facility] [address] [place] [address] Name: [facility] [place] [facility]) Phone: [phone] Address: [address] [facility] [place] [address] Name: [facility] (All Offices) Phone: [phone] Address: [address] [address] Name: [facility] [place] (Home Health) Address: [address] [facility] [place] [address] Name: [facility] Phone: [phone] Address: [address] [place] [address] [id number] Note* Care Coordination - Renetta Caceres RN - 03/21/2025 8:39 AM EDT Care Management Progress Note Short Medical why still here: Patient remains on H6 s/p Lap sigmoidectomy 03/18/2025 Planned Discharge Disposition: Home Health Services Active discharge order noted. TCC working with home care and social science teacher for home going. Barriers/Today we still Wait: coordinating home going with spouse Length of Stay (Days): 5 GMLOS: 4.9 [facility] [id number] Note* Care Coordination - Renetta Caceres RN - 03/21/2025 8:39 AM EDT Care Management Progress Note Short Medical why still here: Patient remains on H6 s/p Lap sigmoidectomy 03/18/2025 Planned Discharge Disposition: Home Health Services Active discharge order noted. TCC working with home care and social science teacher for home going. Barriers/Today we still Wait: coordinating home going with spouse Length of Stay (Days): 5 GMLOS: 4.9 [facility] [id number] NoteCare Management Progress Note Short Medical why still here: Patient remains on H6 s/p Lap sigmoidectomy 03/18/2025 Planned Discharge Disposition: Home Health Services Active discharge order noted. TCC working with home care and social science teacher for home going. Barriers/Today we still Wait: coordinating home going with spouse Length of Stay (Days): 5 GMLOS: 4.9 [facility]07-18-2025 NoteDischarge Summary Francisco Ramos : 1950 ADMIT DATE: 03/16/2025 DISCHARGE DATE: 03/21/2025 PRIMARY CARE PHYSICIAN: Jameel Oseguera VISIT STATUS: [...] Your Medications These medications were sent to [facility] [address] - [place], [place] - [address] [place] [address] acetaminophen 650 MG ER tablet DIET: Adult diet Regular; Low Fiber ACTIVITY: No heavy lifting. COMPLEXITY OF FOLLOW UP: [x] Moderate Complexity: follow up within 7-14 calendar days (72156) [] Severe Complexity: follow up within 7 calendar days (94373) FOLLOW UP TESTING, PENDING RESULTS OR REFERRALS AT TRANSITIONAL CARE VISIT: [] Yes [x] No PENDING STUDIES: No DISPOSITION: Home FACILITY/HOME CARE AGENCY NAME: None Follow up with Bronson Jarrett MD [address] [place] [address] Follow up in 2 week(s) Call in 1-2 days to schedule follow up appt DISCHARGE TIME: > 30 minutes SIGNED: Carmen Cassidy MD General Surgery Resident 03/21/25 7:38 AM This note may have been dictated using PureSign[employer] Practice Edition 2.6 and/or WriteLatex Voice Recognition Feature. The document was proofread; however, unrecognized voice recognition magnetic tape typewriter operator errors may be present. [facility]07-18-2025 Hospital course Narrative* Carmen Cassidy MD - 03/21/2025 7:38 AM EDT Images from the original note were not included. Discharge Summary Francisco Ramos : 1950 ADMIT DATE: 03/16/2025 DISCHARGE DATE: 03/22/25 PRIMARY CARE PHYSICIAN: Jameel Oseguera VISIT STATUS: Admission CODE STATUS: DNR-CCA DISCHARGE DIAGNOSES: Principal Problem: Sigmoid volvulus (CMS/HCC) ([facility]) BMI Classification: Estimated body mass index is [...] Your Medications These medications were sent to [facility] [address] - [place], [place] - [address] [facility] [address] acetaminophen 650 MG ER tablet DIET: Adult diet Regular; Low Fiber ACTIVITY: No heavy lifting. COMPLEXITY OF FOLLOW UP: [x] Moderate Complexity: follow up within 7-14 calendar days (18897) [] Severe Complexity: follow up within 7 calendar days (19370) FOLLOW UP TESTING, PENDING RESULTS OR REFERRALS AT TRANSITIONAL CARE VISIT: [] Yes [x] No PENDING STUDIES: No DISPOSITION: Home FACILITY/HOME CARE AGENCY NAME: None Follow up with Bronson Jarrett MD [address] [place], [place] [id number] Follow up in 2 week(s) Call in 1-2 days to schedule follow up appt DISCHARGE TIME: > 30 minutes SIGNED: Carmen Cassidy MD General Surgery Resident 03/21/25 7:38 AM This note may have been dictated using Snaptalent Medical Practice Edition 2.6 and/or WriteLatex Voice Recognition Feature. The document was proofread; however, unrecognized voice recognition magnetic tape typewriter operator errors may be present. Cosigned by Bronson Jarrett MD at 03/21/2025 12:17 PM EDT documented in this [facility]07-18-2025 [facility] General Surgery Daily Progress Note ADMIT DATE: [...] This note may have been dictated using Snaptalent Medical Practice Edition 2.6 and/or WriteLatex Voice Recognition Feature. The document was proofread; however, unrecognized voice recognition magnetic tape typewriter operator errors may be present. Attending Supervising [...] naloxone, ondansetron ODT OR ondansetron, oxyCODONE OR [facility]ODONESMc[facility]07-18-2025 History of Present illness Narrative* Bronson Jarrett [...] This note may have been dictated using [employer] Practice Edition 2.6 and/or WriteLatex Voice Recognition Feature. The document was proofread; however, unrecognized voice recognition magnetic tape typewriter operator errors may be present. Attending Supervising [...] This note may have been dictated using Snaptalent Medical Practice Edition 2.6 and/or WriteLatex Voice Recognition Feature. The document was proofread; however, unrecognized voice recognition magnetic tape typewriter operator errors may be present. Attending Supervising [...] ondansetron, oxyCODONE OR oxyCODONE * Olivia Noriega, LETTUCE TRIMMER - 03/19/2025 2:53 PM EDT Images from the original note were not included. PHYSICAL THERAPY [facility] Treatment Note Name/MRN: Francisco Ramos ([id number]) Date of : 1950 Age: 74 y.o. [facility]: [facility] Discharge Recommendation: 24 hour supervision [...] reach, left in bed, gait belt, and keno attendant present Restraints: No Education Gait, transfers, balance [...] Type and Reason for Visit: Initial (diet central sterilization technician referral for NPO/clear liquids > 3 [...] and drinking well recently. NPO/clear liquids since [facility] admission (3 days).) Weight Loss: (Weight history is limited over past 3 months in [facility]. However, he has lost 10# (6.7%)x 4 months (150# on 11/26/24-->140# on 03/16/25)) Body Fat Loss: Unable to assess Muscle Mass Loss: Unable to assess Fluid Accumulation: No significant fluid accumulation (per flow sheets) Tavern Keeper Strength: Not Performed Nutrition Assessment: 74 y.o. male with history of Parkinson's dementia, constipation, ? Prior sigmoid volvulus managed nonoperatively, CAD, HLD. Patient presented from [facility] for abdominal distention and pain. Imaging concern for sigmoid volvulus. He transferred to [facility] for further surgical evaluation. Repeat CT A/P [...] (kg): 63.5 kg Total Energy Requirements (kcals/day): 5313-6830 kcals per day (25-30) Weight Used for [...] Epic: 155# on 02/12/25, 150# on 11/26/24) Equality Body Weight (lbs) (Calculated): 154 lbs [facility] Body Weight (Kg) (Calculated): 70 kg BMI [...] soon to determine Oriana Gil RD Contact: *[phone] [1] carbidopa-levodopa, 1 tablet, Oral, BID carbidopa-levodopa, [...] original note were not included. OCCUPATIONAL THERAPY [facility] Treatment Note Name/MRN: Francisco Ramos ([id number]) Date of : 1950 Age: 74 y.o. Room[facility]Bed: [facility] A Discharge Recommendation: 24 hour supervision [...] notified, no alarms engaged upon entry, and keno attendant present Restraints: No Education Education Given To: [...] No noted flatus or Bms by the director of emergency nursing overnight. ROS: Noted above unless otherwise mentioned [...] This note may have been dictated using Snaptalent Medical Practice Edition 2.6 and/or WriteLatex Voice Recognition Feature. The document was proofread; however, unrecognized voice recognition magnetic tape typewriter operator errors may be present. Attending Supervising [...] OR ondansetron, oxyCODONE OR oxyCODONE * Rachel Woody OTR/L - 03/18/2025 3:48 PM EDT Images from the original note were not included. OCCUPATIONAL THERAPY [facility] Initial Evaluation Name/MRN: Francisco Ramos ([id number]) Evaluation Date: 03/18/2025 Date of : 1950 Admission Date: 03/16/2025 6:13 AM Age: 74 y.o. Room[facility]Bed: [facility] A Discharge Recommendation: 24 hour supervision [...] in bed, agreeable to OT. Pt with keno attendant present. Pain: Pt denies any current pain. Past Medical History: Medical History[1] Past Surgical History: Surgical History[2] Admission Diagnosis: Patient Active Problem List Diagnosis Date Noted Sigmoid volvulus ([facility]) ([facility]) 03/16/2025 Medical Precautions: No active isolations Proper [...] Responsibilities: Independent Receives Help From: Spouse Active Sheet Music Salesperson: No Prior Level of Function Prior Level [...] on BSC between bathroom and bed. Assistfrom FIREPOT OPERATOR AND TENDER for cleanup and pt safety. Device(s) used: [...] of Care supervision is transferred to a [facility] Therapy Services Occupational Therapist. Goals and/or [...] This note may have been dictated using PureSignCo Practice Edition 2.6 and/or WriteLatex Voice Recognition Feature. The document was proofread; however, unrecognized voice recognition magnetic tape typewriter operator errors may be present.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 03/16/25 6:50 AM Pager # [phone] This note may have been dictated using [employer] Medical Practice Edition 2.6 and/or WriteLatex Voice Recognition Feature. The document was proofread; however, unrecognized voice recognition magnetic tape typewriter operator errors may be present. Attending Supervising [...] family history on file. documented in this [facility]07-13-2025 NoteEmergency Department Encounter [facility] [...] in the lower abdomen. Was seen at [facility] initially and there he underwent CT [...] provider for clarification.) Bhanu Hunter DO Acute [facility] Bhanu Hunter DO 03/16/[address] [place], [place] 7887007-13-2025 Physician Emergency department Note* Jameel Barraza DO - 03/16/2025 6:04 AM EDT EMERGENCY DEPARTMENT ENCOUNTER Pt Name: Francisco Ramos Birthdate 1950 Date of evaluation: 03/16/2025 ED Provider: Jameel Barraza DO CHIEF COMPLAINT Chief Complaint Patient presents with Abdominal Pain Transfer from [facility] for Colonoscopy due to a twisted colon. [...] the emergency department by ED transfer from [facility] ED for abd pain. 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 Pt unable to remember [...] Family History[3] SOCIAL HISTORY Social History[4] SCREENINGS Briggs Coma Scale Best Eye Response: Spontaneous Best [...] abdominal pain for one day. Transferred from [facility] ED for sigmoid volvulus. 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 Was seen at [facility] initially and there he underwent CT [...] [employer] Bhanu Hunter DO 03/16/[address] [id number] Radiology Diagnostic study note [facility] Imaging Services [address] [place] [address] [id number] Abdomen/Pelvis W IV Cont ONLY MR#: [id number] Acct: [id number] Name: FRANCISCO RAMOS Rep #: [id number] : 1950 M 74 From: Charmaine Tejeda MD PCP: Dr. Ethan Avendano MD Status: REG ER Study:Abdomen/Pelvis W IV Cont ONLY Date of E xam: 03/15/25 Exam# [id number] Ordering Dr: Brijesh Mathew DO PROCEDURE: ABDOMEN/PELVIS [...] if not recently performed. 3. Mild splenomegaly. Cole Alert: Sigmoid volvulus The critical information above was relayed directly by me by telephone to Brijesh Frederick on 03/15/2025 at 11:58 pm with readback verification. Reading Location: [facility] CC: Dr. Brijesh Frederick DO; Dr. Ethan Avendano MD ~ Shade Matcher: Signed [facility]05-05-2025 Discharge summary Author Mojgan Gonzalez [facility] Note Date/Time January 06, 2025 7:00pm [facility] Physical Therapy [facility] [address] [place] [address]. [address] [place] [address] / REHABILITATION SERVICES DISCHARGE SUMMARY MR#: [id number] Acct: [id number] Name: FRANCISCO RAMOS Rep #: [id number] : 1950 74 From: Mojgan Angulo Referring Dr.: KIM Mendenhall Status: REG RCR Insurance: MEDICARE PART A B [facility] Discharge Summary D/C summary: It has [...] 3-4 days ago he was getting the quality assurance test program manager ready to mow. He was on the [...] please feel free to call me at [phone]. Thank you for the referral of thispatient. Sincerely, VANDA Shultz Balance/Gait/Functional tests Balance/Special Test Scores Functional Gait Assessment Score: 25 % Disability: 16.6700 CATSIB Score (Max score 120 seconds): 120 Lower Extremity Functional Score: 44 Improvement % Improvement: 15 <Electronically signed by Mojgan Gonzalez MPT> 01/06/25 1506 CC: Dr. Ethan Avendano MD; KIM Mendenhall ~ Signed [facility] Work Phone: 1(733) 714-821305-05-2025 Discharge summary [facility] Physical Therapy [facility] [address] [place] [address] / REHABILITATION SERVICES DISCHARGE SUMMARY MR#: [id number] Acct: [id number] Name: FRANCISCO RAMOS Rep #: [id number] : 1950 74 From: Mojgan Gonzalez MP T Referring Dr.: KIM Mendenhall Status: REG RCR Insurance: MEDICARE PART A B [facility] Discharge Summary D/C summary: It has [...] 3-4 days ago he was getting the quality assurance test program manager ready to mow. He was on the [...] please feel free to call me at [phone]. Thank you for the referral of thispatient. Sincerely, Mojgan Gonzalez, MPT Balance/Gait/Functional tests Balance/Special Test Scores Functional Gait Assessment Score: 25 % Disability: 16.6700 CATSIB Score (Max score 120 seconds): 120 Lower Extremity Functional Score: 44 Improvement % Improvement: 15 01/06/25 1506 CC: Dr. Ethan Avendano MD; KIM Mendenhall ~ Signed [facility]03-27-2025 Evaluation note* Diagnosis Onset Date Resolution Status Admit Date Carotid bruit acute November 28, 2024 10:49am History of coronary artery stent placement March 21, 2019 chronic November 28, 2024 10:49am Hyperlipidemia chronic November 10:49am [facility] Work Phone: 1(302) 347-189403-27-2025 Evaluation note* Diagnosis Onset Date Resolution Status Admit Date Carotid bruit acute November 28, 2024 10:49am History of coronary artery stent placement March 21, 2019 chronic November 28, 2024 10:49am Hyperlipidemia chronic November 10:49am Combative behavior acute March 052024 11:17pm History of Parkinson disease acute 2025 11:17pm [facility] Work Phone: 1(933) 117-810503-27-2025 Evaluation note* Diagnosis Onset Date Resolution Status Admit Date Carotid bruit acute November 28, 2024 10:49am History of coronary artery stent placement March 21, 2019 chronic November 28, 2024 10:49am Hyperlipidemia chronic November 10:49am Combative behavior acute March 052024 10:59pm History of Parkinson disease acute 2025 10:59pm [facility] Work Phone: 1(725) 236-800312-20-2024 [facility] Medical Records Department [address] [place] [address] History Physical Exam 08/23/24 0806 MR#: [id number] Acct: [id number] Name: FRANCISCO RAMOS Rep #: [id number] : 1950 74 From: Jameel Oseguera MD PCP: Dr. Ethan Avendano MD Status:[facility] Location: [place] [address] History and Physical Date of Admission: 08/23/24 [...] History immune glob,gamma(IgG) 10 20 g .Route .n1gfwwf 03/04/19 07/10/24 History yfug-kxo-gnhk-IgA 0 to 50 mcg/mL IV solution nitroglycerin [...] chest CT Atherosclerosis of coronary artery of [place] heart without angina pectoris Basal cell carcinoma [...] weakness, No frequent fa (more content not included)...[facility]02-02-2024 NoteHNO ID: [id number] Author: FLORENCE EUGENE OT/Ricardo Service: ? Author [...] reported that while Kimmy is the primary uke driver for the both of them, it is convenient for him to be able to drive himself to the gym despite them both being there at the same time as Kimmy has other activities she does after while Francisco then goes home. 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 Francisco will volunteer to assist currently but his did indicate that options for alternatives if needed. Functional Limitations: heavy exertion Prior Level of Function: Independent with restrictions Home Environment Patient Lives With: Spouse Assistance Available: PRN Home Type: Multi-Level Transportation: Singularu (Grows Up) Patient Goals: to continue to drive if [...] class 2x/week Hobbies / Interests: works on [employer] running again 1x/week in [place] with others which he has been doing for the past several years while has decreased frequency to usually 3x/month or less Home Environment Patient Lives With: Spouse Assistance Available: PRN Home Type: Multi-Level Transportation: Singularu (Grows Up) Pain Level: 0 Post Treatment Pain Level: No Change Activities of Daily Living: Modified Independent Instrumental Activities of Daily Living: he assists with some of the household tasks while 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 manager nursing home; he does do his own medications and indicated that he is supposed to be taking his Parkinsons medications 4x/day but sometimes is not as consistent about 2 middle of the day doses although is trying to be more consistent (suggested could use cellphone alarms as reminder) Driving History: 55 years while will also drive the 2020 [employer] Prius they have; still willing to ride as passenger with him which she did today State: [place] License/Permit #: [id number] Expires: 03/25/26 Restrictions: none but does wear [...] of Function Relev (more content not included)...[facility] 12-29-2022 NoteHNO ID: [id number] Author: Latisha Robles MD Service: ? Author [...] last fall. torn rotator cuff. 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04-27-2023 History of Present illness Narrative* Latisha [...] last fall. torn rotator cuff. 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 Rapid alternating movement normal.Left: Fcmpam-ju-olbg normal. Rapid alternating movement normal. Movement Disorders [...] 1 1 1 Level of service : 67191 (60-74) min). Time spent 67 min on the day of service, which included preparing to see the patient, lzub-ur-ycgx patient care, completing clinical documentation, performing amedically appropriate examination, and counseling and educating the patient/family/caregiver. Thank you for allowing me to be part of the clinical care of this patient! I look forward to continued participation in the patient s care with you. Please do not hesitate to call with any questions. Sincerely, Latisha Robles MD documented in [facility]-27-[facility]23 Instructions* Patient Instructions* Latisha Robles MD [...] or you can send a message through [employer]. You can also now schedule and select appointments through [employer]. Latisha Robles MD documented in this encounterC[facility]03-15-2023 Discharge summary Author Mariaa Pinzon [facility] November 16, 2022 8:38am Note Date/Time November 16, 2022 8:3 8am [facility] Physical Therapy [facility] [address] [place] [address]. [address] [place] [address] / REHABILITATION SERVICES DISCHARGE SUMMARY MR#: [id number] Acct: [id number] Name: FRANCISCO RAMOS Rep #: [id number] : 1950 72 From: Mariaa Angulo Referring Dr.: Dr. Jorden Ortiz DO Status: REG RCR Insurance: MEDICARE PART A B [facility] It has been my pleasure to [...] pain with restisted abduction, Elbow: isometric: 4+/5, Tavern Keeper: equal Goal 1:: Patient will be I [...] please feel free to call me at [phone]. Thank you for the referral of thispatient. Sincerely, Mariaa Pinzon, DPT Balance/Gait/Functional tests - Balance/Special Test Scores Quick DASH Score: 29.5450 <Electronically signed by Mariaa Pinzon DPT> 11/16/22 0838 CC: Dr. Ethan Avendano MD; Dr. Jorden Ortiz, DO ~ ELR Signed [facility] Work Phone: [phone]) 890-482312-13-2022 History of Present illness Narrative* Florence Eugene, [...] using back roads way to drive to [facility] when returning as he was very familiar with the area; he drove the uke driver evaluation vehicle which is a cube19 ENVIRONMENT: Location: Residential, Urban, Interstate, Rural, Parking [...] this report indicates the ability of the uke driver to operate a motor vehicle on [...] FAMILIAR WITH INCLUDING FOR HIS DRIVE TO [place] ON SATURDAYS; AVOID NIGHT DRIVING ABLE; OTHER LONG DISTANCE DRIVING SHOULD BE SHARED BY OTHER LICENSED MACHINING AND ASSEMBLY SUPERVISOR (I.E.his ); DONOT DRIVE WHEN NOT FEELING WELL; DO NOT DRIVE WHEN EXTREME WEATHER CONDITIONS. His should continue to monitor his overall level of function frequently including with regards to driving skills with information being provided regarding doing the same. 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 [...] so Intake Information: Prescription present Previous Treatment: (Benigno Wrights program several times/week, yoga, cardio, mellisa; also [...] Hobbies / Interests: works on getting old [place] running again 1x/week in [place] with others which he has been doing for the past several years Home Environment Patient Lives With: Spouse Assistance Available: PRN ( available most of the time) Home Type: Multi-Level Transportation: Singularu Activities of Daily Living: Modified Independent Instrumental Activities of Daily Living: 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 Francisco Ramos expressed confidence regarding driving on the interstate, when driving alone, and familiar locations. 3. Francisco Ramos expressed concerns regarding driving in congested traffic and in unfamiliar places. OBJECTIVE MEASURES WITH LEVEL OF FUNCTION: SENSORIMOTOR ASSESSMENT: Hand dominance: Right Level of Function Relevant to I ADL, Community Mobility, and Driving: Right UE: Sufficient although does have tremors in same Left UE: Sufficient although does have tremors in same Tavern Keeper: Sufficient Right LE: Sufficient Left LE: [id number] Sitting Balance: Sufficient Head / Neck: decreased [...] Recall: WFL @ 5/6 digits Visual Scanning/Attention: [place] Making Part B (sec): 92 sec 50th [...] COGNITIVE / PERCEPTUAL FUNCTION: Compatible with Driving [place] Sheet Music Salesperson Simulator: Simple Brake Reaction Time: Average Distance: [...] this report indicates the ability of the uke driver to operate a motor vehicle on [...] Complete Eye Exam: Yes as indicated by civil engineering professional Prognosis: Fair Fair due to: clinical presentation;chronic nature of impairments Goals for Episode of Care created on 08/15/22 through 08/22/22 Patient will complete clinical training and/or testing at [place] level in preparation for returning to driving. Patient will complete functional mobility task with good safety awareness during behind the wheel session/assessment. Planned Interventions, Frequency, and Duration: Current Frequency: 1 visit Duration: 1 visit Total Number of Visits Planned: 1 Patient to be see for Sheet Music Salesperson rehab evaluation PLAN FOR NEXT VISIT: completion of behind the wheel assessment Patient demonstrates good understanding of plan of care and treatment. The above goals and plan of care were discussed and agreed upon by patient/family. Billing: Total Treatment Time Minutes (timed/untimed) 120 minutes Evaluation - Moderate Complexity (85419) Self Care / Home Management (38521): 1:1 time: 60 minutes (4 units: 53-67 mins) Total time: 120 minutes ROXI De La Vega, CDRS, CDI Certified Sheet Music Salesperson Frame Maker documented in this encounterC[facility]07-18-2019 Evaluation note* Diagnosis Onset Date Resolution Status Carotid bruit acute History of coronary artery stent placement March 21, 2019 chronic Hyperlipidemia [facility] Work Phone: 1(413) 101-100211-07-2013 History of Past illness Narrative* Problem Noted Date Resolved Date Pure hypercholesterolemia 2012 documented as of this encounter (statuses as of 08/16/2022) [facility]11-[facility] History of Past illness Narrative* Problem Noted Date Resolved Date Pure hypercholesterolemia 2012 documented as of this encounter (statuses as of 08/19/2022) [facility] History of Past illness Narrative* Problem Noted Date Resolved Date Pure hypercholesterolemia 2012 documented as of this encounter (statuses as of 12/29/2022) [facility] note* Diagnosis Onset Date Resolution Status Atherosclerosis of coronary artery of [place] heart without angina pectoris chronic Hyperlipidemia [facility] Work Phone: Evaluation noteNo assessment information available [facility] Work Phone: Evaluation note* Diagnosis Onset Date Resolution Status Cardiac murmur, unspecified acute Carotid bruit acute 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 Hyperlipidemia [facility] Work Phone: Evaluation note* Diagnosis Parkinson disease (HCC)- Primary Paralysis agitans Abnormality of gait and mobility Abnormality of gait Abnormal coordination Lack of coordination Irregular eye movements Other irregularities of eye movements documented in this encounter [facility] note* Diagnosis Parkinson disease (HCC)- Primary Paralysis agitans Abnormality of gait and mobility Abnormality of gait Abnormal coordination Lack of coordination Irregular eye movements Other irregularities of eye movements documented in this encounter [facility] note* Diagnosis Parkinson disease (HCC)- Primary Paralysis agitans documented in this encounter [facility] note* Diagnosis 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 documented in this encounter [facility] for referral (narrative)No reason for referral information availableGalion Community Hospital Work Phone: Summary Purpose Family History No Family History Records Found Relationship Condition Age at Onset Recorded Date/T [place] mother Cardiac disease Unknown father Parkinson's disease Unknown Advance Directives No Advanced Directives Records Found Advance Directive Response Recorded Date/ Time Advance Directives Yes March 21 7:13am Living Will Yes December 30, 2020 6:44pm Power of Equipment Man Yes December 30 6:44pm Advance Directive Response Recorded Date/ Time Advance Directives Yes March 21 6:13am Living Will Yes December 30, 2020 5:44pm Power of Equipment Man Yes December 30 5:44pm Advance Directive Response Recorded Date/ Time Living Will Yes December 30, 2020 5:44pm Power of Equipment Man Yes December 30 5:44pm Living Will Yes August 22, 10:23am Power of Equipment Man Yes August 22, 2024 10:23am Name of Medical Power of Equipment Man August 22, 2024 10:23am Advance Directives Yes March 21 6:13am Advance Directive Response Recorded Date/ Time Living Will Yes August 22 11:23am Power of Equipment Man Yes August 22, 2024 11:23am Name of Medical Power of Equipment Man August 22, 2024 11:23am Advance Directives Yes March 21 7:13am Advance Directive Response Recorded Date/ Time Living Will Yes December 30, 2020 6:44pm Do you have a Healthcare Power of Equipment Man? Yes December 30, 2020 6:44pm Living Will Yes August 22 11:23am Do you have a Healthcare Power of Equipment Man? Yes August 22, 2024 11:23am Name of Medical Power of Equipment Man August 22, 2024 11:23am Advance Directives Yes March 21 7:13am Advance Directive Response Recorded Date/ Time Living Will Yes December 30, 2020 6:44pm Do you have a Healthcare Power of Equipment Man? Yes December 30, 2020 6:44pm Advance Directives Yes March 21 7:13am Advance Directive Response Recorded Date/ Time Living Will Yes December 30, 2020 6:44pm Do you have a Healthcare Power of Equipment Man? Yes December 30, 2020 6:44pm Do you have a Healthcare Power of Equipment Man? Yes March 15, 2025 9:45pm Name of Medical Power of Equipment Man gardenia ramos March 15, 2025 9:45pm Advance Directives Yes March 21 7:13am Date Activated Date Inactivated Comments 03/20/2025 10:59 AM 03/21/2025 7:54 AM Question Answer Comments ICU transfer: Yes Intubation: Yes Date Activated Date Inactivated Comments 03/16/2025 10:53 AM 03/20/2025 10:59 AM Advance Directive Response Recorded Date/ Time Living Will Yes December 30, 2020 6:44pm Do you have a Healthcare Power of Equipment Man? Yes December 30, 2020 6:44pm Do you have a Healthcare Power of Equipment Man? No 2025 8:51pm Do you have a Healthcare Power of Equipment Man? Yes March 15, 2025 9:45pm Name of Medical Power of Equipment Man gardenia ramos March 15, 2025 9:45pm Advance Directives Yes March 21 7:13am Advance Directive Response Recorded Date/ Time Living Will Yes December 30, 2020 6:44pm Do you have a Healthcare Power of Equipment Man? Yes December 30, 2020 6:44pm Do you have a Healthcare Power of Equipment Man? Yes March 26, 2025 1:16am Do you have a Healthcare Power of Equipment Man? Yes March 15, 2025 9:45pm Name of Medical Power of Equipment Man gardenia ramos March 15, 2025 9:45pm Advance Directives Yes March 21 7:13am Advance Directive Response Recorded Date/ Time Do you have a Healthcare Power of Equipment Man? Yes March 26, 2025 1:16am Do you have a Healthcare Power of Equipment Man? Yes March 15, 2025 9:45pm Name of Medical Power of Equipment Man gardenia ramos March 15, 2025 9:45pm Advance Directives Yes March 21 7:13am Chief Complaint and Reason for Visit Chief Complaint 6-8 MO F/U (MOVED FR OM 10/19) IVIG IVIG IVIG IVIG Reason for Visit Atherosclerosis of c oronary artery of [place] heart without angina pectoris Hyperlipidemia Chief Complaint [...] 2024 11 :12am INCOMPLETE COLONOSCOPY/TORTUOUS COLON [facility] 2024 8:06am IVIG October 10, 2024 9 :29am IVIG November 07, 2024 10:3 8am Chief Complaint Admit Date IVIG August 08, 2024 1 1:34am IVIG September 05, 2024 11 :12am INCOMPLETE COLONOSCOPY/TORTUOUS COLON [facility] 2024 8:06am IVIG October 10, 2024 9 [...] 2024 11 :12am INCOMPLETE COLONOSCOPY/TORTUOUS COLON [facility] 2024 8:06am IVIG October 10, 2024 9 :29am IVIG November 07, 2024 10:3 8am 1 Y FU November 28, 2024 10: 49am IVIG December 05, 2024 10:5 7am BRUIT December 17, 2024 1:2 0pm [facility] December 19, 2024 3:3 0pm Chief Complaint Admit Date INCOMPLETE COLONOSCOPY/TORTUOUS COLON [facility] 2024 8:06am IVIG October 10, 2024 9 [...] 7pm History of Parkinson disease 2025 11:17pm Chief Complaint Admit Date 1 Y FU [...] pm AGITATION WITH PD, ADULT FTT 2025 10:59pm AGITATION WITH PD, ADULT FTT 2025 11:17pm AGITATION WITH PD, ADULT FTT March 26, 2025 2:17pm Reason for Visit Admit Date Carotid bruit November 28, 2024 10: 49am History of coronary artery stent placeme nt November 28, 2024 10:49am Hyperlipidemia November 28, 2024 10: 49am Combative behavior 2025 10:5 9pm History of Parkinson disease 2025 10:59pm Chief Complaint Admit Date BRUIT December 17, 2024 1:2 0pm BRUIT December 17, 2024 1:5 8pm IVIG January 02, 2025 10:50a m [facility] January 06, 2025 2:30pm IVIG February 05, 2025 9:31a m IVIG March 05, 2025 11:06 am constipation March 15, 2025 9:16 pm AGITATION WITH PD, ADULT FTT 2025 10:59pm AGITATION WITH PD, ADULT FTT 2025 11:17pm AGITATION WITH PD, ADULT FTT March 26, 2025 2:17pm AGITATION WITH PD, ADULT FTT March 27, 2025 10:18am IVIG April 09, 2025 12: 46pm Reason for Visit Admit Date Combative behavior 2025 10:5 9pm History of Parkinson disease 2025 10:59pm Chief Complaint Admit Date IVIG January 02, 2025 10:50a m [facility] January 06, 2025 2:30pm IVIG February 05, 2025 9:31a m IVIG March 05, 2025 11:06 am constipation March 15, 2025 9:16 pm AGITATION WITH PD, ADULT FTT 2025 10:59pm AGITATION WITH PD, ADULT FTT 2025 11:17pm AGITATION WITH PD, ADULT FTT March 26, 2025 2:17pm AGITATION WITH PD, ADULT FTT March 27, 2025 10:18am IVIG April 09, 2025 12: 46pm Chief Complaint Admit Date IVIG February 05, 2025 9:31a m IVIG March 05, 2025 11:06 am constipation March 15, 2025 9:16 pm AGITATION WITH PD, ADULT FTT 2025 10:59pm AGITATION WITH PD, ADULT FTT 2025 11:17pm AGITATION WITH PD, ADULT FTT March 26, 2025 2:17pm AGITATION WITH PD, ADULT FTT March 27, 2025 10:18am IVIG April 09, 2025 12: 46pm IVIG May 07, 2025 1:01pm Additional Source Comments (unrecognized sect ion and content) No Status Records FoundNo Status Records FoundNo Status Records FoundNo Status Records FoundNo Status Records FoundNo Status Records FoundNo Status Records Found INFORMATION SOURCE (unrecogn ized section and content) DATE CREATED AUTHOR 02/27/2018 [facility] DATE CREATED AUTHOR AUTHOR'S ORGANIZ ATION 08/09/2019 [facility] ([place]) DATE CREATED AUTHOR AUTHOR'S ORGANIZ ATION 12/30/2022 [facility] DATE CREATED AUTHOR AUTHOR'S ORGANIZ ATION 05/25/2024 [facility] DATE CREATED AUTHOR AUTHOR'S ORGANIZ ATION 04/29/2025 [facility] DATE CREATED AUTHOR AUTHOR'S ORGANIZ ATION 05/02/2025 [facility] DATE CREATED AUTHOR AUTHOR'S ORGANIZ ATION 05/09/2025 [facility] Goals (unrecognized section and content) Goals [...] or prosecute any alcohol or drug abuse patient.[facility] the event this information is protected by the Federal Confidentiality of Alcohol and Drug Abuse Patient Records regulations: The Federal rules restrict any use of the information to criminally investigate or prosecute any alcohol or drug abuse patient.[facility] the event this information is protected by the Federal Confidentiality of Alcohol and Drug Abuse Patient Records regulations: The Federal rules restrict any use of the information to criminally investigate or prosecute any alcohol or drug abuse patient.[facility] Reason for Visit (unrecogniz ed section and content) Reason Comments Occupational Therapy Specialty Diagnoses / Procedures Referred By Laura t Referred To Contact [facility] Diagnoses Parkinson's disease Drivers evaluation Procedures NEW RS OT COMM REINTEGRATION Errol Larson MD [address] [place] [address] [facility] [address] [place] [id number] Referral ID Status Reason Start Date Expiration Date V isits Requested Visits Authorized [id number] Authorized 09/04/2021 09/03/2022 99 99 Reason Comments OT EVAL Reason Comments Consult Parkinsons Reason Comments Abdominal Pain Transfer from [facility] for Colonoscopy due to a twisted colon. Pt reports that his symptoms began a few hours ago. Denies any N/V/D. Pt is A&ox 3. Denies any other complaints at this time. Specialty Diagnoses / Procedures Referred By Laura angulo Referred To Contact Diagnoses Sigmoid volvulus (CMS/HCC) (HCC) Sigmoid Volvulous Procedures .. Bronson Jarrett MD [address] [place] [id number] Phone: tel: fax: [facility] [address] [place] [id number] Phone: tel: Referral ID Status Reason Start Date Expiration Date Visits Re quested Visits Authorized [id number] 1 Reason Onset Date Comments Cancelled Appointment 04/07/2025 Care Teams (unrecognized sec tion and content) Hand Edge Bander Relationship Specialty Start Date End Date Lacy Goldberg NO FORWARDING ADDRESS PCP - General 06/27/02 Hand Edge Bander Relationship Specialty Start Date End Date Lacy [...] MD Primary Care Provider Active Joan Prebish DIAPHRAGM BUILDER, DIAPHRAGM BUILDER-C Attending Provider, Referring Pr ovider Active Team Status: Inactive Member Role Status Dates Dr. Ethan Avendano MD Primary Care Provider Active Joan Prebish DIAPHRAGM BUILDER, DIAPHRAGM BUILDER-C Attending Provider, Referring Pr ovider Active Team Status: Inactive Member Role Status Dates Dr. Ethan Avendano MD Primary Care Provider Active Dr. Jorden Ortiz DO Attending Provider, Referring Provider Active Hand Edge Bander Relationship Specialty Start Date End Date Goldberg Lacy Sharma NO FORWARDING ADDRESS PCP - General 06/27/02 [...] 2024 End: September 05, 2024 Dr. Ethan Avendaon MD Referring Provider Active St art: September [...] March 15, 2025 End: March 16, 2025 Hand Edge Bander Relationship Specialty Start Date End Date Jameel Oseguera [address] [place] [address] PCP - General 03/16/25 Team Status: Inactive [...] Active Member Role/Relationship Status Dates Dr. Ethan vAendano MD Primary Care Provider Active Start: 2025 Dr. Manny Galeana MD Emergency Provider Active S tart: 2025 Dr. Lacy Johnston MD Admit Provider Active St art: 2025 Dr. Lacy Johnston MD Attending Provider Active Start: 2025 Dr. Lacy Johnston MD Other Provider Active St art: 2025 Team Status: Inactive Member Role/Relationship Status Dates Dr. Ethan Avendano MD Primary Care Provider Active Start: 2025 End: March 27, 2025 Dr. Manny Galeana MD Emergency Provider Active S tart: 2025 End: March 27, 2025 Dr. Lacy Johnston MD Admit Provider Active St art: 2025 End: March 27, 2025 Dr. Lacy Johnston MD Other Provider Active St art: 2025 End: March 27, 2025 Dr. Jessica Chris MD Attending Provider Active Start: 2025 End: March 27, 2025 Team Status: Active Member Role/Relationship Status Dates Dr. Ethan Avendano MD Primary Care Provider Active Start: 2025 Dr. Manny Galeana MD Emergency Provider Active S tart: 2025 Dr. Lacy Johnston MD Admit Provider Active St art: 2025 Dr. Lacy Johnston MD Attending Provider Active Start: 2025 Dr. Lacy Johnston MD Other Provider Active St art: 2025 Team Status: Active Member Role/Relationship Status Dates Dr. Ethan Avendano MD Primary Care Provider Active Start: March 26, 2025 Dr. Manny Galeana MD Emergency Provider Active S tart: March 26, 2025 Dr. Lacy Johnston MD Admit Provider Active St art: March 26, 2025 Dr. Lacy Johnston MD Other Provider Active St art: March 26, 2025 Dr. Jessica Chris MD Attending Provider Active Start: March 26, 2025 Dr. Jessica Chris MD Other Provider Active St art: March 26, 2025 Hand Edge Bander Relationship Specialty Start Date End Date Jameel Oseguera [address] [place] [id number] PCP - General 03/16/25 Team Status: Inactive Member Role/Relationship Status Dates Dr. Ethan Avendano MD Primary Care Provider Active Start: December 17, 2024 End: December 17, 2024 Dr. Demina Ramsay MD Attending Provider Active S tart: [...] 2025 End: March 16, 2025 Team Status: Inactive Member Role/Relationship Status Dates Dr. Ethan Avendano MD Primary Care Provider Active Start: 2025 End: March 27, 2025 Dr. Manny Galeana MD Emergency Provider Active S tart: 2025 End: March 27, 2025 Dr. Lacy Johnston MD Admit Provider Active St art: 2025 End: March 27, 2025 Dr. Lacy Johnston MD Other Provider Active St art: 2025 End: March 27, 2025 Dr. Jessica Chris MD Attending Provider Active Start: 2025 End: March 27, 2025 Team Status: Active Member Role/Relationship Status Dates Dr. Ethan Avendano MD Primary Care Provider Active Start: 2025 Dr. Manny Galeana MD Emergency Provider Active S tart: 2025 Dr. Lacy Johnston MD Admit Provider Active St art: 2025 Dr. Lacy Johnston MD Attending Provider Active Start: 2025 Dr. Lacy Johnston MD Other Provider Active St art: 2025 Team Status: Active Member Role/Relationship Status Dates Dr. Ethan Avendano MD Primary Care Provider Active Start: March 26, 2025 Dr. Manny Galeana MD Emergency Provider Active S tart: March 26, 2025 Dr. Lacy Johnston MD Admit Provider Active St art: March 26, 2025 Dr. Lacy Johnston MD Other Provider Active St art: March 26, 2025 Dr. Jessica Chris MD Attending Provider Active Start: March 26, 2025 Dr. Jessica Chris MD Other Provider Active St art: March 26, 2025 Team Status: Active Member Role/Relationship Status Dates Dr. Ethan Avendano MD Primary Care Provider Active Start: March 27, 2025 Dr. Manny Galeana MD Emergency Provider Active S tart: March 27, 2025 Dr. Lcay Johnston MD Admit Provider Active St art: March 27, 2025 Dr. Lacy Johnston MD Other Provider Active St art: March 27, 2025 Dr. Jessica Chris MD Attending Provider Active Start: March 27, 2025 Dr. Jessica Chris MD Other Provider Active St art: March 27, 2025 Team Status: Inactive Member Role/Relationship Status Dates Dr. Ethan Avendano MD Primary Care Provider Active Start: April 09, 2025 End: April 09, 2025 Dr. Ethan Avendano MD Attending Provider Active St art: April 09, 2025 End: April 09, 2025 Dr. Ethan Avendano MD Referring Provider Active St art: April 09, 2025 End: April 09, 2025 Team Status: Inactive Member Role/Relationship Status [...] 2025 End: March 05, 2025 Dr. Ethan vAendano MD Attending Provider Active St art: March [...] 2025 End: March 16, 2025 Team Status: Inactive Member Role/Relationship Status Dates Dr. Ethan Avendano MD Primary Care Provider Active Start: 2025 End: March 27, 2025 Dr. Manny Galeana MD Emergency Provider Active S tart: 2025 End: March 27, 2025 Dr. Lacy Johnston MD Admit Provider Active St art: 2025 End: March 27, 2025 Dr. Lacy Johnston MD Other Provider Active St art: 2025 End: March 27, 2025 Dr. Jessica Chris MD Attending Provider Active Start: 2025 End: March 27, 2025 Team Status: Active Member Role/Relationship Status Dates Dr. Ethan Avendano MD Primary Care Provider Active Start: 2025 Dr. Manny Galeana MD Emergency Provider Active S tart: 2025 Dr. Lacy Johnston MD Admit Provider Active St art: 2025 Dr. Lacy Johnston MD Attending Provider Active Start: 2025 Dr. Lacy Johnston MD Other Provider Active St art: 2025 Team Status: Active Member Role/Relationship Status Dates Dr. Ethan Avendano MD Primary Care Provider Active Start: March 26, 2025 Dr. Manny Galeana MD Emergency Provider Active S tart: March 26, 2025 Dr. Lacy Johnston MD Admit Provider Active St art: March 26, 2025 Dr. Lacy Johnston MD Other Provider Active St art: March 26, 2025 Dr. Jessica hCris MD Attending Provider Active Start: March 26, 2025 Dr. Jessica Chris MD Other Provider Active St art: March 26, 2025 Team Status: Active Member Role/Relationship Status Dates Dr. Ethan Avendano MD Primary Care Provider Active Start: March 27, 2025 Dr. Manny Galeana MD Emergency Provider Active S tart: March 27, 2025 Dr. Lacy Johnston MD Admit Provider Active St art: March 27, 2025 Dr. Lacy Johnstno MD Other Provider Active St art: March 27, 2025 Dr. Jessica Chris MD Attending Provider Active Start: March 27, 2025 Dr. Jessica Chris MD Other Provider Active St art: March 27, 2025 Team Status: Inactive Member Role/Relationship Status Dates Dr. Ethan Avendano MD Primary Care Provider Active Start: April 09, 2025 End: April 09, 2025 Dr. Ethan Avendano MD Attending Provider Active St art: April 09, 2025 End: April 09, 2025 Dr. Ethan Avendano MD Referring Provider Active St art: April 09, 2025 End: April 09, 2025 Team Status: Inactive Member Role/Relationship Status Dates Dr. Ethan Avendano MD Primary Care Provider Active Start: April 17, 2025 End: April 17, 2025 Dr. Ethan Avendano MD Attending Provider Active St art: April 17, 2025 End: April 17, 2025 Dr. Ethan Avendano MD Referring Provider Active St art: April 17, 2025 End: April 17, 2025 Team Status: Inactive Member Role/Relationship Status [...] 2025 End: March 16, 2025 Team Status: Inactive Member Role/Relationship Status Dates Dr. Ethan Avendano MD Primary Care Provider Active Start: 2025 End: March 27, 2025 Dr. Manny Galeana MD Emergency Provider Active S tart: 2025 End: March 27, 2025 Dr. Lacy Johnston MD Admit Provider Active St art: 2025 End: March 27, 2025 Dr. Lacy Johnston MD Other Provider Active St art: 2025 End: March 27, 2025 Dr. Jessica Chris MD Attending Provider Active Start: 2025 End: March 27, 2025 Team Status: Active Member Role/Relationship Status Dates Dr. Ethan Avendano MD Primary Care Provider Active Start: 2025 Dr. Manny Galeana MD Emergency Provider Active S tart: 2025 Dr. Lacy Johnston MD Admit Provider Active St art: 2025 Dr. Lacy Johnston MD Attending Provider Active Start: 2025 Dr. Lacy Johnston MD Other Provider Active St art: 2025 Team Status: Active Member Role/Relationship Status Dates Dr. Ethan Avendano MD Primary Care Provider Active Start: March 26, 2025 Dr. Manny Galeana MD Emergency Provider Active S tart: March 26, 2025 Dr. Lacy Johnston MD Admit Provider Active St art: March 26, 2025 Dr. Lacy Johnston MD Other Provider Active St art: March 26, 2025 Dr. Jessica Chris MD Attending Provider Active Start: March 26, 2025 Dr. Jessica Chris MD Other Provider Active St art: March 26, 2025 Team Status: Active Member Role/Relationship Status Dates Dr. Ethna Avendano MD Primary Care Provider Active Start: March 27, 2025 Dr. Manny Galeana MD Emergency Provider Active S tart: March 27, 2025 Dr. Lacy Johnston MD Admit Provider Active St art: March 27, 2025 Dr. Lacy Johnston MD Other Provider Active St art: March 27, 2025 Dr. Jessica Chris MD Attending Provider Active Start: March 27, 2025 Dr. Jessica Chris MD Other Provider Active St art: March 27, 2025 Team Status: Inactive Member Role/Relationship Status Dates Dr. Ethan Avendano MD Primary Care Provider Active Start: April 09, 2025 End: April 09, 2025 Dr. Ethan Avendano MD Attending Provider Active St art: April 09, 2025 End: April 09, 2025 Dr. Ethan Avendano MD Referring Provider Active St art: April 09, 2025 End: April 09, 2025 Team Status: Inactive Member Role/Relationship Status Dates Dr. Ethan Avendano MD Primary Care Provider Active Start: April 17, 2025 End: April 17, 2025 Dr. Ethan Avendano MD Attending Provider Active St art: April 17, 2025 End: April 17, 2025 Dr. Ethan Avendano MD Referring Provider Active St art: April 17, 2025 End: April 17, 2025 Team Status: Inactive Member Role/Relationship Status Dates Dr. Ethan Avendano MD Primary Care Provider Active Start: May 07, 2025 End: May 07, 2025 Dr. Ethan Avendano MD Attending Provider Active St art: May 07, 2025 End: May 07, 2025 Dr. Ethan Avendano MD Referring Provider Active St art: May 07, 2025 End: May 07, 2025 Scheduled Active and Recently Administ ered Medications (unrecognized section and content) Medication Order 03/19/2025 03/20/2025 03/21/2025 carbidopa-levodopa (Sinemet) 25-250 MG per tablet 1 tablet 1 tablet, Oral, 2 times daily, First dose on Mon03/16/25 at 1800 1215 (Given - Provider: Lu Bee RN)1951 (Given - Provider: Triny Garvey RN) 0850 (Given - Provider: Lu Bee RN)1727 (Given - Provider: Lu Bee RN) 0901 [...] 0843 (Given - Provider: Lu Bee RN) 0908 (Not Given - Provider: Lu Bee [...] mEq per 1 oz fluid., Indications: Hypokalemia 06 (Given - Provider: Triny Garvey RN) PRN [...] sedation for opioid reversal - MUST notify portable irrigation operator provider immediately after first dose, may give [...] BE BASED ON THE PRIMARY CLINICAL RECORDS. [facility]. provides no warranty or guarantee of the accuracy or completeness of information in this document.
[2025-05-15 01:33] VITALS: BP 140/80; PULSE 80; RESP 16; TEMP 36.4; O2SAT 98
== END 2025-05-15 02:55 | disposition home or self-care (01) ==
PROVIDERS: Emergency Provider Emergency Medicine; PCP Family Medicine; Visit Provider Emergency Medicine
DX: G20.A1 Parkinson's disease without dyskinesia, without mention of fluctuations (principal); F02.80 Dementia in other diseases classified elsewhere, unspecified severity, without behavioral disturbance, psychotic disturbance, mood disturbance, and anxiety; I25.10 Atherosclerotic heart disease of native coronary artery without angina pectoris; R41.0 Disorientation, unspecified; N40.0 Benign prostatic hyperplasia without lower urinary tract symptoms; E78.00 Pure hypercholesterolemia, unspecified
CPT/HCPCS: 80164; 81001; 84443; 99284; A4216

== ENCOUNTER 2025-06-04 12:54 | Outpatient (CLI) | payer MEDICARE, OTHER, SELFPAY ==
[2019-03-11 14:03] VITALS: BMI 24.3
[2025-06-04 13:21] VITALS: BP 111/75; PULSE 77; RESP 16; TEMP 35.5; BMI 22.6
[2025-06-04] MEDS: 0.9% NaCl Peripheral Flush Adult IV (13:36)
[2025-06-04] MEDS: Immune Globulin 20 gm 20 GM/200 ML VIAL IV (13:36)
== END 2025-06-04 23:59 | disposition home or self-care (01) ==
LOC: MEDOUTP 12:55
PROVIDERS: PCP Family Medicine; Referring Provider Family Medicine; Visit Provider Family Medicine
DX: Z02.9 Encounter for administrative examinations, unspecified (principal); D83.9 Common variable immunodeficiency, unspecified
CPT/HCPCS: 96365; 96366; A4216; J1568

== ENCOUNTER 2025-06-08 17:53 | Emergency (ER) | payer MEDICARE, OTHER, SELFPAY ==
[2019-03-11 14:03] VITALS: BMI 24.3
[2025-06-08 17:55] VITALS: BP 106/65; PULSE 92; RESP 18; TEMP 36.6; O2SAT 98; BMI 19.6
--- NOTE | 2025-06-08 18:14 | EX.ED.DYSGE1 ---
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 Chronic kidney disease, stage 1 History of Parkinson disease Combative behavior Tortuous colon Wears glasses Arthritis High cholesterol Easy bruising Back pain Non-smoker History of pain when walking History of echocardiogram History of stress test Cardiology follow-up encounter Parkinson disease Atherosclerosis of coronary artery of [place] heart without angina pectoris Hyperlipidemia Common variable immunodeficiency Benign prostate hyperplasia Basal cell carcinoma of left ear Home Medications ?Medication ?Instructions ?Recorded ?Last Taken ?Type multivitamin with folic acid 400 1 tab PO DAILY 06/10/13 08/22/24 History mcg tablet immune glob,gamma(IgG) 10 20 g .Route .[id number] 03/04/19 08/08/24 History vges-uax-fqni-IgA 0 to 50 mcg/mL IV solution nitroglycerin 0.4 mg sublingual 0.4 mg sublingual Q5-15M PRN chest 04/03/19 Unknown Rx tablet pain #25 tabs ibuprofen 600 mg tablet 600 mg PO Q6H PRN pain #20 tabs 12/30/20 08/22/24 Rx aspirin 81 mg tablet,delayed 81 mg PO DAILY 01/05/21 08/19/24 History release (Adult Low Dose Aspirin) memantine 5 mg tablet 5 mg PO BID 02/01/23 08/22/24 History carbidopa 25 mg-levodopa 100 mg 1 tab PO .qid 11/28/24 Unknown History tablet carbidopa ER 50 mg-levodopa 200 mg 1 tab PO 4X/DAY 03/26/25 Unknown History tablet,extended release levothyroxine 25 mcg tablet 25 mcg PO DAILY 03/26/25 Unknown History divalproex 250 mg tablet,delayed 250 mg PO TID 05/07/25 Unknown History release quetiapine 25 mg tablet 25 mg PO DAILY 05/07/25 Unknown History rivastigmine 13.3 mg/24 hour 13.3 mg transdermal DAILY 05/07/25 Unknown History transdermal patch sennosides 8.6 mg-docusate sodium 1 tab-cap PO DAILY 05/07/25 Unknown History 50 mg tablet (Senna-Time S) Allergy/AdvReac Type Severity Reaction Status Date / Time No Known Allergies Allergy Verified 06/08/25 18:02 Family History Mother Heart disease valve replacement Father Parkinson disease Surgical History History of cardiac catheterization Hx of colonoscopy Hx of transurethral resection of prostate History of coronary artery stent placement (03/21/19) History of herniorrhaphy History of bilateral cataract extraction Social History (Updated 03/25/25 @ 23:[address] Lacy Johnston MD) household members: spouse Smoking Status: Never smoker alcohol intake: current alcohol intake frequency: holidays/special occasions only substance use type: does not use caffeine: No EXAM Physical Exam Const Vital Signs: 06/08/25 17:55 06/08/25 18:42 06/08/25 20:00 Temperature 97.9 F Temperature Source Temporal Pulse Rate 92 84 88 Respiratory Rate 18 17 16 Blood Pressure 106/65 108/63 122/69 H Blood Pressure Mean 78 78 86 Pulse Ox 98 100 100 Oxygen Delivery Method Room Air Room Air Room Air MDM MDM MDM Narrative Medical decision making narrative: HISTORY OF PRESENT ILLNESS: Chief complaint: Agitation 75-year-old male history of Alzheimer's dementia, Parkinson's disease, hypertension, CAD, hypothyroidism, hyperlipidemia, intermittent explosive disorder, CKD, DVT anxiety and depression presents concern for change in mental status and aggressive behavior. Patient is a poor historian. Majority history provided by jail staff. Patient was sent with report of having changes in behavior, agitation, not acting normally. Notes changes in behavior. NOtes the patient is not moving around as much as before recent admission to a psychiatric facility. NOtes he returned on 06/02/2029. Per [facility] nurse [place] patient has been not behaving like himself since that time. There is no specific inciting event for transfer today but she noted the physician at [facility] wanted the patient evaluated REVIEW OF SYSTEMS: Pertinent positives: Change in behavior Pertinent negatives: Chest pain, shortness of breath, abdominal pain PHYSICAL EXAM: Nursing triage notes reviewed, Vital signs reviewed Constitutional: please see mdm HENT: MMM Eyes: Pupils equal round and reactive to light, Extraocular muscles intact Neck: No stridor, no JVD, full neck ROM Lungs: Clear to auscultation, No wheezing or rales. No increased work of breathing, no conversational dyspnea, no accessory muscle use, no nasal flaring. No respiratory distress noted Heart: Regular rate and rhythm, No murmurs, No rubs and No gallops, 2+ distal pulses (radial, femoral, posterior tibial) in all extremities Abdomen: Soft, there is no tenderness, rigidity, rebound or guarding, no obvious peritoneal signs, no palpable pulsatile abdominal masses, no auscultated abdominal bruit : No CVAT Extremities: No edema Neuro: No new focal neurological deficits, cranial nerves II through XII intact, 5/5 strength in all present extremities. Intact sensation to light touch in all present extremities, 2+ reflexes bilateral patella tendons. Skin: No rash or lesions noted Psych: calm, cooperative MEDICAL DECISION MAKING: Chief Complaint: please see HPI External records reviewed:seen in the emergency department for similar. Reviewed past hospitalization from March 2025. Baseline mental status is alert oriented to person but not oriented to place or time. Factors affecting care: BPH, combative behavior Social determinants of health: Memory care unit resident History obtained from others: EMS, jail Spoke to [facility] Consults: none MDM Narrative: Patient was initially hemodynamically stable, afebrile and nontoxic-appearing. Exam without focus of neurologic deficit. The patient mental status essentially baseline when compared to prior ED visit and hospitalization from March 2025. I considered the following differential diagnosis: ICH, infectious cephalopathy, metabolic cephalopathy, dehydration, acute on chronic intermittent explosive disorder I obtained a broad lab and imaging workup to further determine if the patient was suffering from a life-threatening etiology. ALL IMAGES (IF OBTAINED) HAVE BEEN PERSONALLY REVIEWED AND INTERPRETED BY MYSELF. EKG with normal sinus rhythm rate 82, axis, no intervals, no STEMI CBC with no leukocytosis, no anemia, noted mild thrombocytopenia (similar to baseline) CMP without evidence of acute kidney injury, significant electrolyte abnormality, anion gap to suggest end organ hypo-perfusion, no evidence of metabolic acidosis with a normal bicarbonate, no evidence of hepatobiliary obstructive pathology. Lipase is wnl indicating no pancreatic inflammation. Urinalysis shows no evidence of urinary inflammation suggestive of UTI I have personally reviewed the patient's chest x-ray. Chest x-ray is unremarkable for pulmonary edema, pneumothorax, pneumonia or focal cardiopulmonary abnormality. CT scan of the brain showed no evidence of acute intracranial normality Patient remained calm and cooperative throughout his ED stay. Showed no behavior disturbances. The etiology of his complaint is unclear. May be related to polypharmacy or recent med changes however he does not reside in a memory care unit. I suspect he is safe to return for further evaluation by the [facility] physician or his primary physician. The patient and/or family, caregivers express understanding. The patient and/or family, caregivers agrees with the plan. Shared decision making: I will have a discussion with the patient and or visitors regarding risk/benefits of further testing or admission. They will be made aware of of the risk/benefits inherent in this decision they will be given the opportunity to voice understanding. Total critical care time today provided was at least 0 minutes. This excludes separately billable procedures. Critical care time (if documented) is secondary to the patient having high probability of clinically significant/life threatening deterioration in the patient's condition which required my urgent intervention. Impression: 1. Change in behavior 2. History of dementia 3. History of Parkinson's disease Dispo: Discharge home This note was generated with [employer] dictation software. It may contain incorrect words, spelling, and punctuation that were not noted in review of the chart prior to signing. Lab Data Labs: Laboratory Results - last 24 hr 06/08/25 06/08/25 18:41 19:31 WBC 4.3 L RBC 4.34 L Hgb 13.3 Hct 39.4 L MCV 90.8 MCH 30.6 MCHC 33.8 RDW Std Deviation 42.8 RDW Coeff of Lou 13.1 Plt Count 106 L MPV 10.7 Immature Gran % (Auto) 0.200 Neut % (Auto) 72.4 H Lymph % (Auto) 14.8 L [place] % (Auto) 12.4 H Eos % (Auto) 0.0 Baso % (Auto) 0.2 Absolute Neuts (auto) 3.1 Absolute Lymphs (auto) 0.63 L Nucleated RBC % 0 Sodium 139 Potassium 4.1 Chloride 101 Carbon Dioxide 23.6 Anion Gap 14 BUN 27 H Creatinine 0.95 Estim Creat Clear Calc 54.27 Est GFR (MDRD) Non-Af 84 BUN/Creatinine Ratio 28.4 H Glucose 105 H Calcium 9.4 Total Bilirubin 0.53 AST 122 H ALT 11 Alkaline Phosphatase 54 Total Protein 6.5 Albumin 4.1 Globulin 2.4 Albumin/Globulin Ratio 1.7 Lipase 11 L Urine Color Yellow Urine Clarity Clear Urine pH 6.0 Ur Specific Depue 1.025 Urine Protein 30 H Urine Glucose (UA) Normal Urine Ketones 150 A* Urine Occult Blood 10 H Urine Nitrite Negative Urine Bilirubin Negative Urine Urobilinogen 1 H Ur Leukocyte Esterase 100 H Urine RBC 0-5 SEEN Urine WBC 25-50 SEEN Ur Squamous Epith Cells 0-5 SEEN Urine Bacteria 0 SEEN Hyaline Casts 0-5 SEEN Urine Mucus 3+ Radiography Diagnostic Testing: Clinical Impression(s) from Imaging Studies Brain CT 06/08/25 18:45 IMPRESSION: No acute abnormality Reading Location: [facility] Chest X-Ray 06/08/25 18:45 IMPRESSION: No focal consolidations. Reading Location: [facility] Discharge Plan Triage Chief Complaint: Alt LOC ED Provider: Carl Sparrow Dx/Rx/DC Orders Prescriptions: No Action immun glob I-uuq-pssl-IgA 0-50 10 gram recon soln 20 g .Route .[id number] Patient Comments: Every 4 weeks Rx Instructions: IV every 4 weeks nitroglycerin 0.4 mg tablet, sublingual 0.4 mg sublingual Q5-15M PRN (Reason: chest pain) Qty: 25 3RF Rx Instructions: until response; do not exceed 3 doses per episode aspirin [Adult Low Dose Aspirin] 81 mg tablet,delayed release (DR/EC) 81 mg PO DAILY Patient Comments: verified per pt med list from PCP carbidopa-levodopa 25-100 mg tablet 1 tab PO .qid Rx Instructions: 5 tabs daily multivitamin with folic acid 1 TABLET tablet 1 tab PO DAILY ibuprofen 600 mg tablet 600 mg PO Q6H PRN (Reason: pain) Qty: 20 0RF memantine 5 mg tablet 5 mg PO BID levothyroxine 25 mcg tablet 25 mcg PO DAILY carbidopa-levodopa 50-200 mg tablet extended release 1 tab PO 4X/DAY Rx Instructions: divide evenly over waking hours divalproex 250 mg tablet,delayed release (DR/EC) 250 mg PO TID quetiapine 25 mg tablet 25 mg PO DAILY rivastigmine 13.3 mg/24 hour patch 24 hour 13.3 mg transdermal DAILY sennosides-docusate sodium [Senna-Time S] 8.6-50 mg tablet 1 tab-cap PO DAILY Primary Care Provider: Mahesh Avendano Referrals: Mahesh Avendano MD [Primary Care Provider, Family Practice] Print Language: Greek
--- NOTE | 2025-06-08 18:32 | EKG12_ITS ---
Test Reason : DYSRHYTHMIA Blood Pressure : */* mmHG Vent. Rate : 82 BPM Atrial Rate : 82 BPM P-R Int : 126 ms QRS Dur : 96 ms QT Int : 380 ms P-R-T Axes : 71 62 58 degrees QTcB Int : 443 ms Normal sinus rhythm Normal ECG Confirmed by GEE MACDONALD, ALEXANDRIA ([id number]), editor dictionary JOON MORALES ([id number]) on 06/09/2025 8:39:12 AM Referred By: Confirmed By: ALEXANDRIA FLYNN MD
[2025-06-08 18:42] VITALS: BP 108/63; PULSE 84; RESP 17; O2SAT 100
--- NOTE | 2025-06-08 18:45 | RAD_ITS ---
PROCEDURE: CHEST 1 VIEW (PORTABLE) 06/08/2025 REASON FOR EXAM: AMS TECHNIQUE: Frontal view of the chest. FINDINGS: No focal consolidation. No pleural effusion or pneumothorax. Cardiac silhouette is within normal limits. No acute fractures. RAD/Chest 1 View (Portable) IMPRESSION: No focal consolidations. Reading Location: [id number]
--- NOTE | 2025-06-08 18:45 | CT_ITS ---
PROCEDURE: BRAIN/HEAD WITHOUT CONTRAST 06/08/2025 REASON FOR EXAM: AMS TECHNIQUE: Procedure Code: CTBR Modality: CT Procedure: BRAIN/HEAD WITHOUT CONTRAST Coronal and Sagittal reconstruction series were provided. One or more dose reduction techniques were used (e.g., Automated exposure control, adjustment of the mA and/or kV according to patient size, use of iterative reconstruction technique. COMPARISON: 03/25/2025 FINDINGS: Mild atrophy. No intracranial mass. No intracranial hemorrhage. No edema or consolidation. No extra-axial pathology. Mucosal thickening present right maxillary sinus. No air-fluid level CT/Brain/Head without Contrast IMPRESSION: No acute abnormality Reading Location: [facility]
--- NOTE | 2025-06-08 18:51 | ED.RN ---
ALYSSA CALLED TO OBTAIN PATIENT REPORT FOR PATIENT BEING SENT TO THE ED. I SPOKE WITH THE NURSE SAUMYA.
[2025-06-08 19:02] LABS: Hematocrit 39.4 % (40-54); Hemoglobin 13.3 g/dL (13.0-16.5); Immature Granulocytes Count 0.010 X10^3/uL (0.0-0.0); Mean Corp Hgb Conc 33.8 g/dL (32-36); Mean Corpuscular Volume 90.8 fL (80-94); Mean Platelet Vol. 10.7 fl (6.2-12.0); NRBC Flagged by Analyzer 0 % (0-5); Platelet Count 106 K/mm3 (150-450); RBC Distribution Width CV 13.1 % (11.6-14.6); RBC Distribution Width SD 42.8 fl (35.1-43.9); Red Blood Count 4.34 M/mm3 (4.6-6.2); White Blood Count 4.3 K/mm3 (4.4-11.0)
--- OUTSIDE RECORDS SUMMARY | 2025-06-08 19:02 | XMS RPT_ITS | CCD ---
Author Organization [facility] Care Team Providers Care Security Lead Name Role Phone Isaac Prater Unavailable Unavailable *SELF, REFERRED Unavailable Unavailable Lacy Goldberg Unavailable Unavailable Dr. Ethan Avendano Primary Care Provider [phone] Dr. Ethan Avendano Referring Provider Dr. Demian Ramsay Attending Provider 1([facility])-[phone] Ethan Avendano Primary Care Provider [phone]([phone] Dr. Ethan Avendano Referring Provider 1([facility])[phone] KIM Flores Attending Provider Dr. Demian Ramsay Attending Provider 1([facility])-[phone] Ethan Barahona Attending Provider 1([facility])-57 10 KIM Flores Referring Provider Dr. Ethan Avendano Primary Care Provider 1([phone] Dr. Ethan Avendano Referring Provider 1([facility])[phone] KIM Flores Attending Provider Dr. Demian Ramsay Attending Provider 1([facility])-[phone] Ethan Barahona Attending Provider 1([facility])-57 [phone] KIM Flores Referring Provider Dr. Ethan Avendano Primary Care Provider Lacy Goldberg Primary Care Provider Unavaila ble LACY GOLDBERG Primary Care Unavailable LATISHA ROBLES Attending Unavailable Dr. Ethan Avendano Primary Care Provider Dr. Ethan Avendano Referring Provider 1([facility])[phone] KIM Flores Attending Provider Dr. Ethan Barahona Attending Provider Dr. Ethan Avendano Primary Care Provider KIM Flores Referring Provider Dr. Ethan Avendano Primary Care Provider Dr. Ethan Avendano Referring Provider KIM Flores Attending Provider Dr. Ethan Avendano Primary Care Provider Dr. Ethan Avendano Referring Provider KIM Flores Attending Provider FLORENCE EUGENE Attending Unavailable ETHAN AVENDANO Referring Unavailable LACY GOLDBERG Primary Care Unavailable Juan Alberto MACDONALD, Dr. Aragon Primary Care Provider Dr. Ethan Avendano MD Attending Provider Dr. Ethan Avendano MD Referring Provider Dr. Jameel Oseguera MD Attending Provider Ana Rosa MACDONALD, Dr. Jorgensen Other Provider Ana Rosa MACDONALD, Dr. Jorgensen Referring Provider [phone] Dr. Ethan Avendano MD Primary Care Provider Dr. Ethan Avendano MD Attending Provider Dr. Ethan Avendano MD Referring Provider Dr. Jameel Oseguera MD Attending Provider Dr. Jameel Oseguera MD Other Provider Ana Rosa MACDONALD, Dr. Jorgensen Referring Provider [phone] Devendra MACDONALD, Dr. Arciniega Attending Provider Sandra Reis Attending Provider Sandra Reis Referring Provider Dr. Ethan Avendano MD Primary Care Provider Dr. Ethan Avendano MD Referring Provider Juan Alberto MACDONALD, Dr. Aragon Attending Provider Devendra MACDONALD, Dr. Arciniega Referring [...] [facility] Emergency Provider Vickie MACDONALD, Dr. Lacy Silva Admit Provider [phone] Vickie MACDONALD, Dr. Lacy Silva Attending Provider Kervin MACDONALD, Dr. Bryant Emergency Provider Vickie MACDONALD, Dr. Lacy Silva Admit Provider Vickie MACDONALD, Dr. Lacy Silva Other Provider [phone] Dot MACDONALD, Dr. Jessica Sanders Attending Provider Dot MACDONALD, Dr. Jessica Sanders Other Provider [phone] Juan Alberto MACDONALD, Dr. Aragon Primary Care Provider Devendra MACDONALD, Dr. Arciniega Attending Provider Juan Alberto MACDONALD, Dr. Aragon Attending Provider Juan Alberto MACDONALD, Dr. Aragon Referring Provider [phone] Juan Alberto MACDONALD, Dr. Aragon Primary Care Provider NONE, PCP Referring Unavailable CALABRETTA, JAMEEL Primary Care Unavailable MA, BURROUGHS Admitting Unavailable MA, BURROUGHS Attending Unavailable Juan Alberto MACDONALD, Dr. Aragon Primary Care Provider Juan Alberto MACDONALD, Dr. Aragon Attending Provider Juan Alberto MACDONALD, Dr. Aragon Referring Provider Dr. Azeem Mendez DO Emergency Provider Avendano, Ethan Referring Unavailable Avendano, Ethan Attending Unavailable Avendano, Ethan Primary Care Unavailable Avendano, Ethan Attending Unavailable Avendano, Ethan Referring Unavailable Avendano, Ethan Primary Care Unavailable Avendano, Ethan Attending Unavailable Avendano, Ethan Referring Unavailable Avendano, Ethan Primary Care Unavailable Waight, [...] Unavailable Avendano, Ethan Primary Care Unavailable Devendra, Demian Attending Unavailable Devendra, Demian Referring Unavailable Avendano, Ethan Primary Care Unavailable [...] Attending Unavailable Avendano, Ethan Primary Care Unavailable Azeem Mendez Attending Unavailable Jameel Oseguera Attending Unavailable Avendano, Ethan Referring Unavailable Avendano, Ethan Primary Care Unavailable Avendano, Ethan Attending Unavailable Avendano, Ethan Referring Unavailable Avendano, Ethan Primary Care Unavailable Avendano, Ethan Referring Unavailable Avendano, Ethan Attending Unavailable Vaendano, Ethan Primary Care Unavailable Avendano, Ethan Primary Care Unavailable Brijesh Frederick Attending Unavailabl e Avendano, Ethan Primary Care Unavailable White, Lacy L Admitting Unavailable White, Lacy L Consulting Unavailable White, Lacy L Attending Unavailable Avendano, Ethan Primary Care Unavailable Koram, Jessica Marilyn Attending Unavailable White, Lacy L Consulting Unavailable White, Lacy L Admitting Unavailable Koram, Jessica Marilyn Consulting Unavailable Avendano, Ethan Referring Unavailable Calnancy, Jameel Consulting Unavailable Ana Rosa, Jameel Attending Unavailable Avendano, Ethan Primary Care Unavailable Avendano, Ethan Referring Unavailable Demian Ramsay Attending Unavailable Avendano, Ethan Primary Care Unavailable CalJameel cruz Attending Unavailable Avendano, Ethan Referring Unavailable Avendano, Ethan Primary Care Unavailable Avendano, Ethan Primary Care Unavailable Koram, Jessica Marilyn Attending Unavailable White, Lacy L Admitting Unavailable White, Lacy L Consulting Unavailable Avendano, Ethan Referring Unavailable Avendano, Ethan Attending Unavailable Avendano, Ethan Primary Care Unavailable Avendano, Ethan Referring Unavailable Avendano, Ethan Attending Unavailable Avendano, Ethan Primary Care Unavailable Avendano, Ethan Primary Care Unavailable Avendano, Ethan Referring Unavailable Avendano, Ethan Attending Unavailable Juan Alberto MACDONALD, Dr. Aragon Primary Care Physician Juan Alberto MACDONALD, Dr. Aragon Attending Physician Dr. Brijesh Frederick DO Attending Physician Dr. Brijesh Frederick DO Emergency Departmen t Physician Kervin MACDONALD, Dr. Bryant Emergency Department Physici an Vickie MACDONALD, Dr. Lacy Silva Admitting Physician Vickie MACDONALD, Dr. Lacy Silva Nurse Practitioner Dot MACDONALD, Dr. Jessica Sanders Attending Physician [phone] Vickie MACDONALD, Dr. Lacy Silva Attending Physician Dot MACDONALD, Dr. Jessica Sanders Nurse Practitioner Dr. Azeem Mendez DO Attending Physician [phone] Dr. Azeem Mendez DO Emergency Department Physic carmen Allergies Allergy Classification Reported Allergen(s) Allergy Type Date of Onset Reaction(s) Facility (3 sources) dust,mold grass [Other] Propensity to adverse reactions 6 [facility] (2 sources) OTHER; Translations: [OTHER] Propensity to adverse reactions (disorder) 6 [facility] Repository (3 sources) Seasonal allergy Propensity to adverse reactions [facility] [employer] Medications Current Medications Medication Drug Class(es) Dates [...] hours as needed aspirin 81 mg delayed releas e oral tablet (20 sources) Platelet Aggregation Inhibitor, Nonsteroidal Anti-inflammatory Drug Start: 01-05-2021 Start: 03-04-2019 End: 12-30-2020 take 1 tablet by mouth once daily Aspirin (Adult Aspirin Regimen) 81 mg tablet,delayed release (/CHAIM) Discontinued 81 mg PO DAILY March 04, 2019 12:00am December 30, 2020 3:38pm Start: 07-11-2013 take 1 tablet by anthony once daily Aspirin 81 mg tab Take [...] Comment on above: Take 1 tablet by atnhony once daily. carbidopa 50 mg / levodopa 200 mg extended release oral tablet (20 sources) Aromatic Amino Acid Decarboxylation Inhibitor, Aromatic Amino Acid Start: 03-26-2025 Start: 03-16-2025 End: 03-21-2025 take 1 tablet by mouth twice daily 1 tablet, Oral, 2 times daily, First dose on 03/16/25 at 1800 Start: 11-28-2024 take 5 tablets by mo [facility] once daily Start: 02-01-2023 End: 11-28-2024 Carbidopa-Levodopa 25-100 mg tablet Discontinued 1 {tbl} PO .qid February 01, 2023 12:00am November 28, 2024 10:56am Start: 02-01-2023 take 1 tablet by anthony four times daily Carbidopa-Levodopa Active 1 TABLET [...] tablet by anthony th four times daily. docusate sodium 50 mg / sennosides, fpc 8.6 mg oral tablet (3 sources) Start: 05-07-2025 ibuprofen 600 mg oral tablet (20 sources) Nonsteroidal Anti-inflammatory Drug Start: 12-30-2020 take 1 tablet by mouth every six hours as needed for pain immunoglobulin g, human 67123 mg injection (20 sources) Human Immunoglobulin G Start: 03-04-2019 Start: 03-17-2017 take 3.5 mL by mouth [...] infusion completed. 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 levothyroxine sodium 0.025 mg oral tablet (6 sources) l-Thyroxine Start: 03-26-20 25 take 1 tablet by mouth once daily memantine hydrochloride 5 mg oral tablet (20 sources) B-kfpbia-F-aspartate Receptor Antagonist Start: 02-02-20 take 2 tablets [...] take 1 tablet by mouth twice daily Comment on above: Take 10 mg by [...] Multivitamin With Folic Acid 1 TABLET tablet (15 sources) Start: 06-10-2013 take 1 tablet by anthony th once daily Start: 06-10-2013 take 1 tablet by anthony th once daily Multivitamin With Folic Acid 1 TABLET tablet Active 1 {tbl} PO DAILY June 10, 2013 12:00am Start: 06-10-2013 take 1 tablet by anthony th once daily Multivitamin With Folic Acid 1 TABLET tablet Active 1 {tbl} PO DAILY June 09, 2013 11:00pm nitroglycerin 0.4 mg subling ual tablet (20 sources) Nitrate Vasodilator Start: 04-03-2019 Start: 04-03-2019 Nitroglycerin Active 0.4 MG SL every 5 to 15 minutes April 03, 2019 12:00am until response; do not exceed 3 doses per episode pantoprazole (2 sources) Proton Pump Inhibitor Start: 03-21-2025 End: 03-21-2025 pantoprazole (ProtoNix) EC tablet 40 mg QUEtiapine 25 mg oral tablet (3 sources) Atypical Antipsychotic Start: 05-07-2025 take 1 tablet by mouth once daily 24 hr rivastigmine 0.554 mg/hr transdermal system (3 sources) Start: 05-07-2025 apply 1 dose transdermal route every twenty-four hours divalproex sodium 250 mg delayed release oral tablet (3 sources) Mood Stabilizer, Anti-epileptic Agent Start: 05-07-2025 take 1 tablet by mouth three times daily Completed/Discontinued Medications Medication Drug Class(es) Dates Sig (Normalized) Sig (Original) [id number] 200 actuat albuterol 0.09 mg/actuat metered dose [...] April 29, 2019 3:24pm administer with spacer 24 hr buPROPion hydrochloride 300 mg extended release oral tablet (7 sources) Aminoketone Start: 03-26-2025 End: 05-07-2025 take 1 tablet by mouth once daily Bupropion Hcl 300 mg tablet extended release 24 hr Discontinued 300 mg PO DAILY March 26, 2025 12:00am May 07, 2025 1:29pm Start: 11-28-2024 End: 05-07-2025 take 1 tablet by mouth once daily in the morning Bupropion Hcl 100 mg tablet sustained-release 12 hr Discontinued 100 mg PO EVERY MORNING November 28, 2024 12:00am May 07, 2025 1:29pm Bupropion Hcl 100 mg tablet sustained-release 12 hr (12 sources) Start: 11-28-2024 End: 05-07-2025 take 1 tablet by mouth once daily in the morning Bupropion Hcl 100 mg tablet sustained-release 12 hr Discontinued 100 mg PO EVERY MORNING November 28, 2024 12:00am May 07, 2025 1:29pm Start: 11-28-2024 take 1 tablet by anthony once daily in the morning Bupropion Hcl 100 mg tablet sustained-release 12 hr Active 100 mg PO EVERY MORNING November 28, 2024 12:00am calcium carbonate 600 mg / cholecalciferol 0.01 [...] 2115, For 12 hours, Phase II/On Unit celecoxib 200 mg oral capsule (20 sources) [...] on above: Take 1 capsule by mo [facility] once daily. ciprofloxacin 500 mg oral [...] tablet Discontinued 75 mg PO DAILY 90 March 30, 2020 11:24am December 30, 2020 [...] 10 mg/ml oral suspension (2 sources) Start: End: take 50 mg by mouth once daily 50 mg, Oral, Daily, First dose on Mon03/19/25 at 0900, Phase II/On Unit 0.4 ml enoxaparin sodium 100 mg/ml prefilled syringe (2 sources) Low Molecular Weight Heparin Start: End: inject 40 mg by subcutaneous injection every twenty-four hours 40 mg, SubCUTAneous, Every 24 hours scheduled (Daily), First dose on Mon03/16/25 at 1100, Indication of Use: Prophylaxis-DVT/PE, Indications: Prophylaxis of Venous Thromboembolism erythromycin 0.005 mg/mg ophthalmic ointment (3 sources) Macrolide, Macrolide Antimicrobial Start: 021 End: 023 erythromycin (ROMYCIN) 5 mg/gram (0.5 %) ophthalmic ointment Use 1 application in the right eye daily at bedtime. 3.5 g 0 08/27/2021 12/29/2022 Discontinued Comment on above: Use 1 application in the right eye daily at bedtime. escitalopram 5 mg oral tablet (20 sources) Serotonin Reuptake Inhibitor Start: 025 End: take 2 tablets by mouth once daily Escitalopram Oxalate (Lexapro) 5 mg tablet Discontinued 10 mg PO DAILY November 28, 2024 10:55am May 07, 2025 1:29pm Start: 02-01-2023 End: 11-28-2024 take 1 tablet by mouth once daily Escitalopram Oxalate (Lexapro) 5 mg tablet Discontinued 5 mg PO DAILY February 01, 2023 12:00am November 28, 2024 10:56am fenofibrate 48 mg oral tablet (3 sources) Peroxisome Proliferator Receptor alpha Agonist Start: 06-25-2016 End: 12-29-2022 take 1 tablet by mouth once daily fenofibrate nanocrystallized (TRICOR) 48 mg tablet Take 1 tablet by mouth once daily. 90 tablet 3 06/25/2016 12/29/2022 Discontinued Comment on above: Take 1 tablet by anthony th once daily. finasteride 5 mg oral tablet (20 sources) 5-alpha Reductase Inhibitor Start: 01-05-2021 End: 02-16-2021 take 1 tablet by mouth once daily Finasteride 5 mg tablet Discontinued 5 mg PO DAILY January 05, 2021 12:00am February 16, 2021 10:07am folic acid 0.4 mg oral tablet (20 sources) Start: 12-24-2013 End: 05-07-2025 Folic Acid 0.4 MG tablet Discontinued 1 {tbl} PO DAILY December 24, 2013 12:00am May 07, 2025 1:29pm take 1 tablet by mouth three sunny es daily folic acid 400 mcg tablet Take 400 mcg by mouth three times daily. 0 Active Comment on above: Take 400 mcg by mout h three times daily. gabapentin 300 mg oral capsule (20 sources) Anti-epileptic Agent Start: 07-05-2021 End: 11-28-2024 take 1 capsule by mouth three times [...] 2021 10:07am take 1 capsule by mo [facility] three times daily gabapentin (NEURONTIN) 400 [...] 2021 9:43am Guar Gum 1 GM tablet,chewable (15 sources) Start: 06-10-2013 End: 01-05-2021 take 1 [...] 03-16-2025 1 mg, IntraMUSCular, Once, O n Mon03/16/25 at 1845, For 1 dose, IM route of administration preferred. Because of the risk of TdP and QT prolongation, ECG monitoring is recommended if haloperidol is given IV Start: 03-16-2025 End: 03-16-2025 Starting on Mon03/16/25 at 1 832, For 1 dose, [facility]: tamikainet override iopamidol (Isovue-370) 76 % injection 75 mL (2 sources) Start: 03-16-2025 End: 03-16-2025 take 75 mL intravenously once as needed 75 mL, IntraVENous, IMG once PRN, contrast, Starting on Mon03/16/25 at 0753, For 1 dose Ivig (20 [...] 12:00am March 04, 2019 7:19pm Ivig Iv.Soln (15 sources) Start: 06-10-2013 End: 03-04-2019 take 20 [...] mg tablet Discontinued 2.5 mg PO DAILY 3 December 04, 2020 4:26pm January 05, [...] dose with 1ml NS. melatonin 10 mg oral tablet (7 sources) Start: 03-26-2025 End: 05-07-2025 take 1 tablet by mouth at bedtime Melatonin 10 mg tablet Discontinued 10 mg PO AT BEDTIME March 26, 2025 12:00am May 07, 2025 1:25pm melatonin 10 mg ODT melatonin 10 mg disintegrating tablet TAKE 1 TABLET AT AT BEDTIME 0 Active Comment on above: melatonin 10 mg disi ntegrating tablet TAKE 1 TABLET AT AT BEDTIME 24 hr metoprolol succinate 25 mg extended release oral tablet (20 sources) beta-Adrenergic Leonie Start: End: 5 take 1 tablet by mouth once [...] Indication (Select all that apply): Surgical Prophylaxis mirtazapine 30 mg oral tablet (6 sources) Start: End: take 15-30 mg by mouth at bedtime Mirtazapine 30 mg tablet Discontinued 15 - 30 mg PO AT BEDTIME March 26, 2025 12:00am May 07, 2025 1:29pm 1 ml naloxone hydrochloride 0.4 mg/ml injection [...] 2 hrs after reconstitution. polyethylene glycol 3350 62863 mg powder for oral solution (4 sources) [...] 09, 2019 1:00am August 22, 2019 10:05am rosuvastatin calcium 20 mg oral tablet (20 sources) HMG-CoA Reductase Inhibitor Start: 03-26-2025 End: 05-07-2025 take 1 tablet by mouth at bedtime Rosuvastatin 20 mg tablet Discontinued 20 mg PO AT BEDTIME March 26, 2025 12:00am May 07, 2025 1:30pm Start: 10-10-2023 End: 05-07-2025 take 1 tablet by mouth at bedtime Rosuvastatin 40 mg tablet Discontinued 40 mg PO AT BEDTIME October 10, 2023 1:00am May 07, 2025 1:30pm Start: 10-10-2023 Rosuvastatin A ctive MG PO October 10, 2023 1:00am Start: 03-15-2019 End: 09-07-2023 take 1 tablet by mouth once daily Rosuvastatin (Crestor) 40 mg tablet Discontinued 40 mg PO DAILY March 15, 2019 12:00am September 07, 2023 11:17am Comment on above: TAKE 1 TABLET BY ANTHONY EVERY DAY with supper. 50 ml sodium chloride 9 mg/ml injection (5 sources) Start: 03-16-2025 End: 03-16-2025 take 125 mL intravenously every hour 125 mL/hr, IntraVENous, Continuous, Starting on [place] 03/16/25 at 0720 Start: 03-10-2016 0.9 % [...] abdominal pain; Translations: [Unspecified abdominal pain] Onset: 03-27-2025 Episodic Administrative/social admission (1 source) Encounter for administrative examinations, unspecified; Translations: [Encounter for administrative examinations, unspecified] Onset: 05-16-2025 Episodic Attention-deficit, conduct, and disruptive behavior disorders (14 sources) Combativeness; Translations: [Other symptoms and signs involving appearance and behavior] 2025 Episodic Attention-deficit, conduct, and disruptive behavior disorders (1 source) Other symptoms and signs involving appearance and behavior; Translations: [Other symptoms and signs involving appearance and behavior] Onset: 03-27-2025 Episodic Coronary atherosclerosis and other heart disease (20 sources) Disorder of coronary artery; Translations: [Atherosclerotic heart disease of [place] coronary artery with unspecified angina pectoris] Chronic Comment on above: [id number]-[id number] RCA w / 2.5 x 12 mm Elunir Stent and MILANA-Mid RCA w/ 3.0 x 33 mm Elunir Stent 03/11/19; PCI-MILANA- Mid LAD w/ 3.0 x 16 mm Synergy MR Stent 03/21/2019 Digestive congenital anomalies (16 sources) Tortuous colon; Translations: [Other specified congenital malformations of intestine] Onset: 10-03-2024 08-23-2024 Chronic Disorders of lipid metabolism (20 sources) Hyperlipidemia; Translations: [Hyperlipidemia, unspecified] Onset: 01-20-2006 Chronic Genitourinary symptoms and ill-defined conditions (20 sources) Retention of urine; Translations: [Retention of urine, unspecified] 03-13-2019 Episodic Heart valve disorders (20 sources) Heart murmur; Translations: [Cardiac murmur, unspecified] Episodic Hyperplasia of prostate (6 sources) Benign prostatic hyperplasia; Translations: [Benign prostatic hyperplasia without lower urinary tract symptoms] Onset: 07-11-2013 07-11-2013 Chronic Immunity disorders (20 sources) Common variable agammaglobulinemia; Translations: [Common variable immunodeficiency, unspecified] Onset: 01-20-2006 01-20-2006 Chronic Comment on above: ON GLOBIN GAMMA IV E VERY 4 WEEKS Intestinal obstruction without hernia (9 sources) Sigmoid volvulus; Translations: [Volvulus] Onset: 03-16-2025 03-16-2025 Episodic Nonspecific chest pain (20 sources) Chest pain on exertion; Translations: [Chest pain, unspecified] 12-12-2020 Episodic Other circulatory disease (20 sources) Low blood pressure; Translations: [Hypotension, unspecified] 01-05-2021 Episodic Other circulatory disease (20 sources) Carotid bruit; Translations: [Other specified symptoms and signs involving the circulatory and respiratory systems] 03-16-2022 Episodic Other circulatory disease (7 sources) H/O: heart disorder; Translations: [Personal history of other diseases of the circulatory system] 2025 Episodic Other eye disorders (2 sources) Irregular eye movements; Translations: [Other irregular eye movements] Chronic Other gastrointestinal disorders (15 sources) Stool DNA-based colorectal cancer screening positive; Translations: [Other fecal abnormalities] 07-10-2024 Episodic Other hereditary and degenerative nervous system conditions (1 source) Multi-system degeneration of the autonomic nervous system; Translations: [Multi-system degeneration of the autonomic nervous system] Onset: 04-21-2025 Chronic Other lower respiratory disease (20 sources) Dyspnea on exertion; Translations: [Dyspnea, unspecified] 12-12-2020 Episodic Other lower respiratory disease (1 source) Shortness of breath; Translations: [Shortness of breath] Onset: 04-15-2025 Episodic Other nervous system disorders (2 sources) Abnormal gait; Translations: [Unspecified abnormalities of gait and mobility] Episodic Other nervous system disorders (2 sources) Coordination problem; Translations: [Other lack of coordination] Episodic Other nervous system disorders (14 sources) H/O: brain disorder; Translations: [Personal history of other diseases of the nervous system and sense organs] 2025 Episodic Other nervous system disorders (1 source) Personal history of other diseases of the nervous system and sense organs; Translations: [Personal history of other diseases of the nervous system and sense organs] Onset: 03-27-2025 Episodic Parkinson`s disease (20 sources) Parkinson's disease; Translations: [Parkinson's disease] Onset: 10-06-2023 Chronic Residual codes; unclassified (1 source) Illness, unspecified; Translations: [Illness, unspecified] Onset: 05-19-2025 Episodic Thyroid disorders (2 sources) Hypothyroidism; Translations: [Hypothyroidism, unspecified] 05-15-2025 Chronic Unclassified (20 sources) BPH loc w [...] conditions (not mental disorders or infectious disease) (4 sources) Raised prostate specific antigen; Translations: [Elevated prostate specific antigen [PSA]] Onset: 07-21-2014 07-21-2014 Episodic Other skin disorders (3 sources) Vitiligo; Translations: [Vitiligo] Onset: 07-08-2007 07-08-2007 Episodic Results Test Name Value Interpretation Reference Range Facility Emergency Department Summary on 05-15-2025 Emergency Department Summary [facility] Medical Records Department [address] [place] [address] Emergency Department Summary 05/15/25 MR#: [id number] Acct: [id number] Name: FRANCISCO RAMOS Rep #: [id number] : [id number] 75 From: Azeem Mendez DO PCP: Dr. Ethan Avendano MD Status:REG ER Location: ED HPI History of Present Illness Chief Complaint: General Illness Informant: SNF Narrative Narrative: Patient is a 75-year-old male from the longterm with past medical history of Parkinson's disease and parkinsonian dementia as well as BPH and hyperlipidemia. retirement states he has been combative and secondary to this sentiment for evaluation. The patient does not know why he is at the hospital. He is alert and oriented to person and place but disoriented to time and nursing reports this is his baseline mental status. [facility] Medical History History of Parkinson disease Combative behavior Tortuous colon Wears glasses Arthritis High cholesterol Easy bruising Back pain Non-smoker History of pain when walking History of echocardiogram History of stress test Cardiology follow-up encounter Parkinson disease Atherosclerosis of coronary artery of [place] heart without angina pectoris Hyperlipidemia Common variable immunodeficiency Benign prostate hyperplasia Basal cell carcinoma of left ear Home Medications ???Medication ???Instructions ???Recorded ???Last Taken ???Type multivitamin with folic acid 400 1 tab PO DAILY 06/10/13 08/22/24 H istory mcg tablet immune glob,gamma(IgG) 10 20 g .Route .[id number] 03/04/1901/25 History bhov-bsu-hffs-IgA 0 to 50 mcg/mL IV solution nitroglycerin 0.4 mg sublingual 0.4 mg sublingual Q5-15M PRN chest 04/03/19 Unknown Rx tablet pain #25 tabs ibuprofen 600 mg tablet 600 mg PO Q6H PRN pain #20 tabs 08/22/24 Rx aspirin 81 mg tablet,delayed 81 mg PO DAILY 05/04/21 12/16/24 H istory release (Adult Low Dose Aspirin) memantine 5 mg tablet 5 mg PO BID 02/01/23 08/22/24 Hist ory carbidopa 25 mg-levodopa 100 mg 1 tab PO .qid 11/28/24 Unknown His tory tablet carbidopa ER 50 mg-levodopa 200 mg 1 tab PO 4X/DAY 03/26/25 Unknown History tablet,extended release levothyroxine 25 mcg tablet 25 mcg PO DAILY 03/26/25 Unknown H istory divalproex 250 mg tablet,delayed 250 mg PO TID 05/07/25 Unknown His tory release quetiapine 25 mg tablet 25 mg PO DAILY 05/07/25 Unknown Hi story rivastigmine 13.3 mg/24 hour 13.3 mg transdermal DAILY 05/07/25 Unknown History transdermal patch sennosides 8.6 mg-docusate sodium 1 tab-cap PO DAILY 05/07/25 Unkno wn History 50 mg tablet (Senna-Time S) Allergy/AdvReac Type Severity Reaction Status Date / Time No Known Allergies Allergy Verified 05/14/25 21:42 Family History Mother Heart disease valve replacement [...] caffeine: No ROS ROS ED ROS Narrative Please note review of systems may be unreliable secondary to patient's history of parkinsonian dementia Constitutional Constitutional ED: Denies chills or fever(s) Eyes Eyes: Denies change in vision ENT ENT ED: Reports rhinorrhea; Denies sore throat Cardiovascular Cardiovascular: Denies chest pain Respiratory/Chest Respiratory/Chest: Denies cough or dyspnea Gastrointestinal Gastrointestinal: Denies abdominal pain, diarrhea or vomiting Musculoskeletal Musculoskeletal: Denies myalgias Integumentary Denies rash Neurologic Neurologic: Denies headache(s) EXAM Physical Exam Const Vital Signs: 05/14/25 21:36 05/14/25 23:36 05/15/25 01:00 Temperature 98.3 F Temperature Source Oral Pulse Rate 100 80 80 Respiratory Rate 16 18 16 Blood Pressure 167/84 H 155/71 H 140/80 H Blood Pressure Mean 111 99 100 Pulse Ox 98 99 98 Oxygen Delivery Method Room Air 05/15/25 01:33 Temperature 97.6 F L Temperature Source Pulse Rate 80 Respiratory Rate 16 Blood Pressure 140/80 H Blood Pressure Mean 100 Pulse Ox 98 Oxygen Delivery Method Positive well nourished and well developed General Appearance ED: well developed HEENT HEPHOEBE Narr (more content not included)... Normal [facility] Valproic Acid (Depakene) Lev jamia 05-15-2025 VALPROIC ACID 52 ug/mL Normal 50-100 [facility] Comment on above: Result Comment: Valp roic Acid concentrations >100 ug/mL are potentially toxic. Performed By: #### L 501.9520, L501.8100 #### [facility] [address] [place], [place], [id number] Bilirubin Test strip Ql (U)O rdered By: Azeem Mendez on 05-14-2025 Bilirubin Ql (U) Negative Negative [facility] Ketones Test strip Ql (U)Ord ered By: Azeem Mendez on 05-14-2025 Ketones Ql (U) 15 mg/dl High Negative [facility] Microscopic analysis of urin e for red blood cells (RBC)Ordered By: Azeem Mendez on 05-14-2025 Microscopic analysis of urine for red blood cells (RBC) 0 SEEN /hpf 0-5 [facility] Mucus LM Ql (Urine sed)Order ed By: Azeem Mendez on 05-14-2025 Mucus Ql (Urine sed) 1+ /hpf [facility] Nitrite Test strip Ql (U)Ord ered By: Azeem Mendez on 05-14-2025 Nitrite Ql (U) Negative Negative [facility] Protein Test strip Ql (U)Ord ered By: Azeem Mendez on 05-14-2025 Protein Ql (U) 30 mg/dl High Negative [facility] Serum or plasma valproate me asurement (mass/volume)Ordered By: Azeem Mendez on 05-14-2025 Valproate [Mass/Vol] 52 ug/mL 50-100 [facility] Comment on above: Valproic Acid concen trations >100 ug/mL are potentially toxic. Squamous epithelial cells de tection in urine sediment by light microscopyOrdered By: Azeem Mendez on 05-14-2025 Epithelial cells.squamous LM Ql (Urine sed) 0 SEEN /hpf 0-5 [facility] TSH DL <= 0.005 mIU/L QnOrde red By: Azeem Mendez on 05-14-2025 TSH Qn 2.100 uIU/mL 0.300-4.200 [facility] Thyroid Stim Hormone (TSH)on 05-14-2025 TSH 2.100 uIU/mL Normal 0.300-4.200 [facility] Comment on above: Performed By: #### L 501.9520, L501.8100 #### [facility] [address] [place], [address] Urinalysis, Completeon 05-14 Mucus Ql (Urine sed) 1+ /hpf Normal [facility] Comment on above: Order Comment: CLEAN CATCH Performed By: #### L 400.0001 #### [facility] [address] [place], [address] BACTERIA 1+ /hpf Normal None Seen [facility] Comment on above: Order Comment: CLEAN CATCH Performed By: #### L 400.0001 #### [facility] [address] [place], [address] WBC 0-5 SEEN Normal 0-5 [facility] Comment on above: Order Comment: CLEAN CATCH Performed By: #### L 400.0001 #### [facility] [address] [place], [address] EPI,SQUAMOUS 0 SEEN Normal 0-5 [facility] Comment on above: Order Comment: CLEAN CATCH Performed By: #### L 400.0001 #### [facility] [address] [place], [address] RBC 0 SEEN Normal 0-5 [facility] Comment on above: Order Comment: CLEAN CATCH Performed By: #### L 400.0001 #### [facility] [address] [place], [place], [id number] Urine clarityOrdered By: Kamran Mendez on 05-14-2025 Clarity (U) Clear Clear [facility] Urine color determinationOrd ered By: Azeem Mendez on 05-14-2025 Color (U) Yellow Yellow [facility] Urine glucose detectionOrder ed By: Azeem Mendez on 05-14-2025 Glucose Ql (U) Normal mg/dl Normal [facility] Urine leukocyte esterase det ection by dipstickOrdered By: Azeem Mendez on 05-14-2025 Leukocyte esterase Test strip Ql (U) Negative Negative [facility] Urine pHOrdered By: Azeem Zhu ndes on 05-14-2025 pH (U) 6.5 [pH] 5.0 - 8.0 [facility] Urine sediment bacteria coun t by microscopy (number/high power field)Ordered By: Azeem Mendez on 05-14-2025 Bacteria LM.HPF (Urine sed) [#/Area] 1 /[HPF] None Seen [facility] Urine specific gravity measu rementOrdered By: Azeem Mendez on 05-14-2025 Specific gravity (U) [Rel density] 1.020 1.002-1.030 [facility] Urine urobilinogen measureme ntOrdered By: Azeem Mendez on 05-14-2025 Urobilinogen Ql (U) 4 mg/dl High Normal [facility] White blood cell countOrdere d By: Azeem Mendez on 05-14-2025 White blood cell count 0-5 SEEN /hpf 0-5 [facility] 36on 04-23-2025 36 No longer responsible for patient's care as resident Normal [facility] 36on 04-17-2025 36 No longer responsible for patient's care as resident Normal [facility] Absolute lymphocyte countOrd ered By: Ethan Avendano on 04-17-2025 Lymphocytes Auto (Unsp spec) [#/Vol] 0.66 10*3/uL Low 0.83-4.51 [facility] Absolute neutrophil countOrd ered By: Ethan Avendano on 04-17-2025 Neutrophils (Bld) [#/Vol] 3.4 10*3/uL 2.0-7.7 [facility] Anion gap in Serum or Plasma Ordered By: Ethan Avendano on 04-17-2025 Anion gap [Moles/Vol] 11 mmol/L 5-15 [facility] Automated lymphocyte count a s percentage of total leukocytesOrdered By: Ethan Avendano on 04-17-2025 Lymphocytes/100 WBC Auto (Unsp spec) 14.6 % Low 19-41 [facility] BUN/creatinine ratioOrdered By: Ethan Avendano on 04-17-2025 Urea nitrogen/Creatinine [Mass ratio] 20.0 mg/mg 10-20 [facility] Basophil percentageOrdered B y: Ethan Avendano on 04-17-2025 Basophils/100 WBC (Bld) 0.0 % 0-1 [facility] Bilirubin, totalOrdered By: Ethan Avendano on 04-17-2025 Bilirubin [Mass/Vol] 0.21 mg/dL 0.00-1.30 [facility] Blood manual differential co mment interpretation (narrative result)Ordered By: Ethan Avendano on 04-17-2025 Manual differential comment Fritz (Bld) [Interp] SCANNED [facility] CBC W/Diff, Automatedon 04-04 PLT EST SLT DEC Normal ADEQ [facility] Comment on above: Performed By: #### L 100.0100, L500.4050 #### [facility] [address] [place], [address] MPV TNP Normal 6.2-12.0 [facility] Comment on above: Performed By: #### L 100.0100, L500.4050 #### [facility] [address] [place], [address] PLT TNP Normal 150-450 [facility] Comment on above: Result Comment: Tejas lassiter note: For this sample, a platelet estimate is provided rather than a platelet count due to platelet clumping. Other parameters associated with this sample are not affected by platelet clumping. If a more accurate platelet count is required, a redraw of the patient will be necessary. Performed By: #### L 100.0100, L500.4050 #### [facility] [address] [place], [address] SMEAR COMMENT SCANNED Normal [facility] Comment on above: Performed By: #### L 100.0100, L500.4050 #### [facility] [address] [place], [address] Carbon dioxide, total [Moles /volume] in Central venous bloodOrdered By: Ethan Avendano on 04-17-2025 CO2 [Moles/Vol] 26.0 mmol/L 21.0-32.0 [facility] Chloride assayOrdered By: Abdulkadir Avendano on 04-17-2025 Chloride [Moles/Vol] 103 mmol/L 98-108 [facility] Comprehensive Metabolic Prof ilon 04-17-2025 Albumin [Mass/Vol] 4.1 g/dL Normal 3.4-4.8 [facility] Comment on above: Performed By: #### L 100.0100, L500.4050 #### [facility] [address] [place], [address] Albumin/Globulin [Mass ratio] 1.8 {ratio} Normal 0.9-2.4 [facility] Comment on above: Performed By: #### L 100.0100, L500.4050 #### [facility] [address] [place] [place], [address] ALK PHOS 65 U/L Normal 40-129 [facility] Comment on above: Performed By: #### L 100.0100, L500.4050 #### [facility] [address] [place], [address] ALT [Catalytic activity/Vol] 10 U/L Normal <=46 [facility] Comment on above: Performed By: #### L 100.0100, L500.4050 #### [facility] [address] [place], [address] AST [Catalytic activity/Vol] 22 U/L Normal <=37 [facility] Comment on above: Performed By: #### L 100.0100, L500.4050 #### [facility] [address] [place], [address] Bilirubin [Mass/Vol] 0.21 mg/dL Normal 0.00-1.30 [facility] Comment on above: Performed By: #### L 100.0100, L500.4050 #### [facility] [address] [place], [address] BUN/CRE 20.0 RATIO Normal 10-20 [facility] Comment on above: Performed By: #### L 100.0100, L500.4050 #### [facility] [address] [place], [address] Calcium [Mass/Vol] 9.4 mg/dL Normal 7.6-11.0 [facility] Comment on above: Performed By: #### L 100.0100, L500.4050 #### [facility] [address] [place], [address] Chloride [Moles/Vol] 103 mmol/L Normal 98-108 [facility] Comment on above: Performed By: #### L 100.0100, L500.4050 #### [facility] [address] [place], [address] CO2 [Moles/Vol] 26.0 mmol/L Normal 21.0-32.0 [facility] Comment on above: Performed By: #### L 100.0100, L500.4050 #### [facility] [address] [place], [address] Creatinine [Mass/Vol] 0.80 mg/dL Normal 0.70-1.20 [facility] Comment on above: Performed By: #### L 100.0100, L500.4050 #### [facility] [address] [place], [address] GAP 11 Normal 5-15 [facility] Comment on above: Performed By: #### L 100.0100, L500.4050 #### [facility] [address] [place], [address] GFR/1.73 sq M.predicted among non-blacks MDRD (S/P/Bld) [Vol rate/Area] 93 mL/min/{1.73_m2} Normal >60 [facility] Comment on above: Result Comment: mL/m in/1.73m2 CKD-EPI Creatinine Equation (2020) Performed By: #### L 100.0100, L500.4050 #### [facility] [address] [place], [address] Globulin (S) [Mass/Vol] 2.3 g/dL Normal 2.2-4.2 [facility] Comment on above: Performed By: #### L 100.0100, L500.4050 #### [facility] [address] [place], [address] Glucose [Mass/Vol] 110 mg/dL High 70-99 [facility] Comment on above: Performed By: #### L 100.0100, L500.4050 #### [facility] [address] [place], [address] Potassium [Moles/Vol] 4.2 mmol/L Normal 3.3-5.1 [facility] Comment on above: Performed By: #### L 100.0100, L500.4050 #### [facility] [address] [place], [address] Sodium [Moles/Vol] 139 mmol/L Normal 133-145 [facility] Comment on above: Performed By: #### L 100.0100, L500.4050 #### [facility] [address] [place], [address] T PROT 6.4 g/dL Normal 5.9-8.4 [facility] Comment on above: Performed By: #### L 100.0100, L500.4050 #### [facility] [address] [place], [address] Urea nitrogen [Mass/Vol] 16 mg/dL Normal 4-19 [facility] Comment on above: Performed By: #### L 100.0100, L500.4050 #### [facility] [address] [place], [address] Eosinophil percentageOrdered By: Ethan Avendano on 04-17-2025 Eosinophils/100 WBC (Bld) 0.0 % 0-5 [facility] Erythrocyte distribution wid th ratioOrdered By: Ethan Avendano on 04-17-2025 Erythrocyte distribution width (RBC) [Ratio] 13.1 % 11.6-14.6 [facility] Erythrocyte distribution wid th standard deviationOrdered By: Ethan Avendano on 04-17-2025 Erythrocyte distribution width (RBC) [Ratio] 44.4 fl High 35.1-43.9 [facility] Glomerular filtration rate ( GFR) estimation/1.73 sq m using serum, plasma, or whole bOrdered By: Ethan Avendano on 04-17-2025 GFR/1.73 sq M.predicted among non-blacks MDRD (S/P/Bld) [Vol rate/Area] 93 mL/min/{1.73_m2} >60 [facility] Comment on above: mL/min/1.73m2 CKD-EP I Creatinine Equation (2020) Hematocrit Auto (Bld) [Volum e fraction]Ordered By: Ethan Avendano on 04-17-2025 Hematocrit (Bld) [Volume fraction] 38.1 % Low 40-54 [facility] Hemoglobin measurementOrdere d By: Ethan Avendano on 04-17-2025 Hemoglobin (Bld) [Mass/Vol] 12.7 g/dL Low 13.0-16.5 [facility] Immature granulocytes/100 WB C Auto (Bld)Ordered By: Ethan Avendano on 04-17-2025 Immature granulocytes/100 WBC (Bld) 0.400 % 0.0-0.9 [facility] Comment on above: IG% - Immature Granu locytes (promyelocytes, myelocytes and metamyelocytes) > 1% indicates that a LEFT SHIFT is Present. Laboratory - Chemistry and C hemistry - challengeOrdered By: Ethan Avendano on 04-17-2025 AST [Catalytic activity/Vol] 22 U/L <38 [facility] MCV (mean corpuscular volume ) determinationOrdered By: Ethan Avendano on 04-17-2025 MCV (RBC) [Entitic vol] 92.7 fL 80-94 [facility] Mean corpuscular hemoglobin (MCH) determinationOrdered By: Ethan Avendano on 04-17-2025 MCH (RBC) [Entitic mass] 30.9 pg 27.0-32.0 [facility] Mean corpuscular hemoglobin concentration (MCHC) determinationOrdered By: Ethan Avendano on 04-17-2025 MCHC (RBC) [Mass/Vol] 33.3 g/dL 32-36 [facility] Mean platelet volume determi nationOrdered By: Ethan Avendano on 04-17-2025 Mean platelet volume determination [facility] Comment on above: Test not performed Monocyte percentageOrdered B y: Ethan Avendano on 04-17-2025 Monocytes/100 WBC (Bld) 10.0 % 0-10 [facility] Neutrophil percentageOrdered By: Ethan Avendano on 04-17-2025 Neutrophils/100 WBC (Bld) 75.0 % High 47-70 [facility] Nucleated red blood cell per centageOrdered By: Ethan Avendano on 04-17-2025 Nucleated RBC/100 WBC (Bld) [Ratio] 0 % 0-5 [facility] Platelet countOrdered By: Abdulkadir Avendano on 04-17-2025 Platelet count [facility] Comment on above: Test not performedPl ease note: For this sample, a platelet estimate is provided rather than a platelet count due to platelet clumping. Other parameters associated with this sample are not affected by platelet clumping. If a more accurate platelet count is required, a redraw of the patient will be necessary. Platelet estimateOrdered By: Ethan Avendano on 04-17-2025 Platelets LM Ql (Bld) SLT DEC ADEQ [facility] Potassium measurement (mass/ volume)Ordered By: Ethan Avendano on 04-17-2025 Potassium (Unsp spec) [Mass/Vol] 4.2 mmol/L 3.3-5.1 [facility] RBC Auto (Bld) [#/Vol]Ordere d By: Ethan Avendano on 04-17-2025 RBC (Bld) [#/Vol] 4.11 10*6/uL Low 4.6-6.[address] [facility] Serum creatinine measurement (mass/volume)Ordered By: Ethan Avendano on 04-17-2025 Creatinine [Mass/Vol] 0.80 mg/dL 0.70-1.20 [facility] Serum globulin measurementOr dered By: Ethan Avendano on 04-17-2025 Globulin (S) [Mass/Vol] 2.3 g/dL 2.2-4.2 [facility] Serum glucose measurement (m ass/volume)Ordered By: Ethan Avendano on 04-17-2025 Glucose [Mass/Vol] 110 mg/dL High 70-99 [facility] Serum or plasma alanine garcia otransferase (ALT) measurementOrdered By: Ethan Avendano on 04-17-2025 ALT [Catalytic activity/Vol] 10 U/L <47 [facility] Serum or plasma albumin john urement (mass/volume)Ordered By: Ethan Avendano on 04-17-2025 Albumin [Mass/Vol] 4.1 g/dL 3.4-4.8 [facility] Serum or plasma albumin/glob ulin mass ratioOrdered By: Ethan Avendano on 04-17-2025 Albumin/Globulin [Mass ratio] 1.8 {ratio} 0.9-2.4 [facility] Serum or plasma alkaline dylon sphatase measurementOrdered By: Ethan Avendano on 04-17-2025 ALP [Catalytic activity/Vol] 65 U/L 40-129 [facility] Serum or plasma calcium john urement (mass/volume)Ordered By: Ethan Avendano on 04-17-2025 Calcium [Mass/Vol] 9.4 mg/dL 7.6-11.0 [facility] Serum or plasma urea nitroge n measurement (mass/volume)Ordered By: Ethan Avendano on 04-17-2025 Urea nitrogen [Mass/Vol] 16 mg/dL 4-19 [facility] Sodium levelOrdered By: Ethan Avendano on 04-17-2025 Sodium [Moles/Vol] 139 mmol/L 133-145 [facility] Total proteinOrdered By: Gaby Avendano on 04-17-2025 Protein [Mass/Vol] 6.4 g/dL 5.9-8.4 [facility] White blood cell (WBC) count Ordered By: Ethan Avendano on 04-17-2025 WBC (Bld) [#/Vol] 4.5 10*3/uL 4.4-11.0 [facility] [id number] 04-13-2025 [id number] Patient Choice Patient Name: FRANCISCO RAMOS Date of : 1950 [facility] 36on 04-11-2025 36 Simran from [facility] called to verify that there was no daria in his abdominal wounds. I reviewed the operative note and confirmed that he has sutures and dermabond that was placed at the conclusion of the surgery by Dr. Jarrett. She advised that he's healing nicely and would let us know if she has any concerns. [facility] 36on 04-08-2025 36 Spoke with patient's , we did not reschedule as of yet due to medical issues. Our office will contact her back after speaking with Dr. Jarrett. [facility] 36on 04-07-2025 36 Name of Caller: [facility] Contact Reason for Appointment: [facility] called to cancel patient's 04/09/25 post-op appointment. [facility] stated patient has been in and out of hospital since his surgery. [facility] stated patient just moved into an assisted living today. Please contact [facility] and advise. Office Name: General Surgery Medication Refills need, if any: n/a Medication Name: n/a [facility] PROGRESS NOTEon 04-06-2025 Scalemaker Report [place], [place] PROGRESS NOTE NAME: FRANCISCO RAMOS UNIT #: [id number] ROOM: 311 DOCTOR: DELFINO ARCE MD BIRTHDATE: [birth year] DOS: 04/06/2025 INTERVAL NOTE CHIEF COMPLAINT: Oh, good morning. SUMMARY OF THE VISIT: The patient was interviewed as he was sitting with some peers in the corner. He stopped and engaged in conversation with me, smiling as we talked. He voiced no complaints, stating he slept well, had a good breakfast, and is anxious to leave. When I told him that that would be happening tomorrow, he asked me what day that would be and I told him that was a Monday. He nodded in approval. MENTAL STATUS EXAMINATION: He is alert and oriented to self, unclear place, certainly not time. Mood does seem to be euthymic. Affect is appropriate. There is no hypomania, stoney, or psychosis noted. Short-term memory continues to be problematic. PLAN: I will continue his current psychotropics. Continue to engage in individual and alfonso milieu activity, returning to the least restrictive environment once psychiatrically stable. DELFINO ARCE MD WP/SAY TID: [id number] CM:PNTRANS [id number] DELFINO ARCE MD 04/06/25 1009 interface Normal [facility] AMMONIAon 04-05-2025 Ammonia (P) [Moles/Vol] 21 umol/L Normal 11-32 E ast [facility] Comment on above: Performed By: #### A MM, DAMON, CMP, CBCD ####[facility] [address] [place] [address] CBC with DIFFERENTIALon Basophils (Bld) [#/Vol] 0.0 10*3/uL Normal 0.0-0.1 [facility] Comment on above: Performed By: #### A MM, DAMON, CMP, CBCD ####[facility] [address] [place] [address] Basophils/100 WBC (Bld) 0.2 % Normal 0.0-1.0 [facility] Comment on above: Performed By: #### A MM, DAMON, CMP, CBCD ####[facility] [address] [place] [address] Eosinophils (Bld) [#/Vol] 0.0 10*3/uL Normal 0.0-0.4 [facility] Comment on above: Performed By: #### A MM, DAMON, CMP, CBCD ####[facility] [address] [place] [address] Eosinophils/100 WBC (Bld) 0.0 % Low 1.0-4.0 [facility] Comment on above: Performed By: #### A MM, DAMON, CMP, CBCD ####[facility] [address] [place] [address] Hematocrit (Bld) [Volume fraction] 42.6 % Normal 42.0-52.0 [facility] Comment on above: Performed By: #### A MM, DAMON, CMP, CBCD ####[facility] [address] [place] [address] Hemoglobin (Bld) [Mass/Vol] 13.8 g/dL Low 14.0-18.0 [facility] Comment on above: Performed By: #### A MM, DAMON, CMP, CBCD ####[facility] [address] [place] [address] IG # 0.0 10*3/uL Normal 0.0-0.1 [facility] Comment on above: Performed By: #### A MM, DAMON, CMP, CBCD ####[facility] [address] [place] [address] IG % 0.4 % Normal 0.0-1.0 [facility] Comment on above: Performed By: #### A MM, DAMON, CMP, CBCD ####[facility] [address] [place] [address] Lymphocytes (Bld) [#/Vol] 1.4 10*3/uL Normal 1.3-4.4 [facility] Comment on above: Performed By: #### A MM, DAMON, CMP, CBCD ####[facility] [address] [place] [address] Lymphocytes/100 WBC (Bld) 26.9 % Low 27.0-41.0 [facility] Comment on above: Performed By: #### A MM, DAMON, CMP, CBCD ####[facility] [address] [place] [address] MCV (RBC) [Entitic vol] 94.0 fL Normal 80.0-94.0 [facility] Comment on above: Performed By: #### A MM, DAMON, CMP, CBCD ####[facility] [address] [place] [address] MEAN CORPUSCULAR HGB 30.5 pg Normal 27.0-31.0 [facility] Comment on above: Performed By: #### A MM, DAMON, CMP, CBCD ####[facility] [address] [place] [address] MEAN CORPUSCULAR HGB CONC 32.4 g/dl Low 33.0-37.0 [facility] Comment on above: Performed By: #### A MM, DAMON, CMP, CBCD ####[facility] [address] [place] [address] Monocytes (Bld) [#/Vol] 0.6 10*3/uL Normal 0.1-1.0 [facility] Comment on above: Performed By: #### A MM, DAMON, CMP, CBCD ####[facility] [address] [place] [address] Monocytes/100 WBC (Bld) 12.6 % High 3.0-9.0 [facility] Comment on above: Performed By: #### A MM, DAMON, CMP, CBCD ####[facility] [address] [place] [address] Neutrophils (Bld) [#/Vol] 3.1 10*3/uL Normal 2.3-7.9 [facility] Comment on above: Performed By: #### A MM, DAMON, CMP, CBCD ####[facility] [address] [place] [address] Neutrophils/100 WBC (Bld) 59.9 % Normal 47.0-73.0 [facility] Comment on above: Performed By: #### A MM, DAMON, CMP, CBCD ####[facility] [address] [place] [address] NUCLEATED RED BLOOD CELL 0.0 10*3/uL Normal 0.0-0.0 [facility] Comment on above: Performed By: #### A MM, DAMON, CMP, CBCD ####[facility] [address] [place] [address] NUCLEATED RED BLOOD CELL 0.0 % Normal 0.0-0.0 [facility] Comment on above: Performed By: #### A MM, DAMON, CMP, CBCD ####[facility] [address] [place] [address] PLATELET COUNT AUTOMATED 158 10*3/uL Normal 130-400 [facility] Comment on above: Performed By: #### A MM, DAMON, CMP, CBCD ####[facility] [address] [place] [address] Platelet mean volume (Bld) [Entitic vol] 10.4 fL Normal 9.6-12.3 [facility] Comment on above: Performed By: #### A MM, DAMON, CMP, CBCD ####[facility] [address] [place] [address] RBC (Bld) [#/Vol] 4.53 10*6/uL Normal 4.50-5.90 [facility] Comment on above: Performed By: #### A MM, DAMON, CMP, CBCD ####[facility] [address] [place] [address] RED CELL DISTRI WIDTH 13.0 % Normal 0-14.5 [facility] Comment on above: Performed By: #### A MM, DAMON, CMP, CBCD ####[facility] [address] [place] [address] WBC (Bld) [#/Vol] 5.1 10*3/uL Normal 4.8-10.8 [facility] Comment on above: Performed By: #### A MM, DAMON, CMP, CBCD ####[facility] [address] [place] [address] COMPREHENSIVE METABOLIC PANE Ken 04-05-2025 Albumin [Mass/Vol] 4.0 g/dL Normal 3.4-5.0 [facility] Comment on above: Performed By: #### A MM, DAMON, CMP, CBCD ####[facility] [address] [place] [address] ALP [Catalytic activity/Vol] 84 U/L Normal 46-116 [facility] Comment on above: Performed By: #### A MM, DAMON, CMP, CBCD ####[facility] [address] [place] [address] ALT [Catalytic activity/Vol] 13 U/L Normal 5-49 [facility] Comment on above: Performed By: #### A MM, DAMON, CMP, CBCD ####[facility] [address] [place] [address] AST [Catalytic activity/Vol] 26 U/L Normal 0-34 [facility] Comment on above: Performed By: #### A MM, DAMON, CMP, CBCD ####[facility] [address] [place] [address] Bilirubin [Mass/Vol] 0.4 mg/dL Normal 0.3-1.2 [facility] Comment on above: Performed By: #### A MM, DAMON, CMP, CBCD ####[facility] [address] [place] [address] CALCIUM,TOTAL 9.8 md/dL Normal 8.7-10.4 [facility] Comment on above: Performed By: #### A MM, DAMON, CMP, CBCD ####[facility] [address] [place] [address] Chloride [Moles/Vol] 102 mmol/L Normal 98-107 [facility] Comment on above: Performed By: #### A MM, DAMON, CMP, CBCD ####[facility] [address] [place] [address] CO2 [Moles/Vol] 29 mmol/L Normal 20-31 [facility] Comment on above: Performed By: #### A MM, DAMON, CMP, CBCD ####[facility] [address] [place] [address] Creatinine [Mass/Vol] 0.85 mg/dL Normal 0.70-1.30 [facility] Comment on above: Performed By: #### A MM, DAMON, CMP, CBCD ####[facility] [address] [place] [address] EST GLOM FILT > 60 Normal [facility] Comment on above: Result Comment: Result Units: mL/min/1.73 m2 Note: Persistent reduction for 3 months or more of an eGFR of <60 ml/min/1.73 m2 defines Chronic Kidney Disease (CKD). Patients with eGFR values greater than or equal to 60 ml/min/1.73 m2 may also have CKD if evidence of persistent proteinuria is present. STAGES OF CKD eGFR Stage 1 Kidney damage with normal kidney function >=90 Stage 2 Kidney damage with mild loss of kidney function 89-60 Stage 3a Mild to moderate loss of kidney function 59-44 Stage 3b Moderate to severe loss of kidney function 43-30 Stage 4 Severe loss of kidney function 29-15 Stage 5 Kidney failure < 15 . Performed By: #### A MM, DAMON, CMP, CBCD ####[facility] [address] [place] [address] ESTIMATED GLOM FILT RATE > 60 Normal [facility] Comment on above: Performed By: #### A MM, DAMON, CMP, CBCD ####[facility] [address] [place] [address] Glucose [Mass/Vol] 96 mg/dL Normal 65-99 [facility] Comment on above: Performed By: #### A MM, DAMON, CMP, CBCD ####[facility] [address] [place] [address] Potassium [Moles/Vol] 4.1 mmol/L Normal 3.4-5.1 [facility] Comment on above: Performed By: #### A MM, DAMON, CMP, CBCD ####[facility] [address] [place] [address] Sodium [Moles/Vol] 137 mmol/L Normal 136-145 [facility] Comment on above: Performed By: #### A MM, DAMON, CMP, CBCD ####[facility] [address] [place] [address] TOTAL PROTEIN 6.7 g/L Normal 5.7-8.2 [facility] Comment on above: Performed By: #### A MM, DAMON, CMP, CBCD ####[facility] [address] [place] [address] Urea nitrogen [Mass/Vol] 16 mg/dL Normal 9-23 [facility] Comment on above: Performed By: #### A MM, DAMON, CMP, CBCD ####[facility] [address] [place] [address] PROGRESS NOTEon 04-05-2025 Scalemaker Report [place], [place] PROGRESS NOTE NAME: FRANCISCO RAMOS UNIT #: [id number] ROOM: 311 DOCTOR: DELFINO ARCE MD BIRTHDATE: [birth year] DOS: 04/05/2025 CHIEF COMPLAINT: Good morning. Breakfast looks good. SUMMARY OF THE VISIT: The patient was interviewed as he was sitting eating breakfast. He stopped and looked at me and engaged in conversation readily. He smiled. He reported to me that the breakfast looked good and he reported that he slept well, although nurses report he only slept 4 hours. He was pleasant and bright and voiced no other complaints. MENTAL STATUS EXAMINATION: He is alert and oriented with time gaps. Mood does seem to be strongly trending towards euthymia. Affect is much more appropriate. There is no stoney, hypomania, or gross psychosis noted. Short-term memory is problematic. PLAN: I will continue his current psychotropic regimen. Continue to engage in individual and alfonso milieu activity, returning to the least restrictive environment when psychiatrically stable. DELFINO ARCE MD WP/DHA TID: [id number] CM:PNTRANS 0932 DELFINO ARCE MD 04/05/25 1034 interface Normal [facility] VALPROIC ACID (DEPAKENE)on 0 04-05-2025 VALPROIC ACID (DEPAKENE) 80.3 ug/ml Normal 50-100 [facility] Comment on above: Performed By: #### A MM, DAMON, CMP, CBCD ####[facility] [address] [place] [address] PROGRESS NOTEon 04-04-2025 Scalemaker Report [place], [place] PROGRESS NOTE NAME: FRANCISCO RAMOS UNIT #: [id number] ROOM: [facility] DOCTOR: CHRISTIE ELIZABETH BIRTHDATE: [birth year] DOS: 04/04/2025 PSYCHIATRY PROGRESS NOTE CHIEF COMPLAINT: I guess I am comfortable. HISTORY OF PRESENT ILLNESS: The patient was seen during rounds. Progress was discussed with the treatment team. Please refer to the nursing and medical notes for details. When I met with the patient today, he was standing upright in the common area and walking around. He stopped to engage in an interaction. When asked how he felt, his response to me was, depends on what you have to tell me. I am waiting for someone to tell us what is going on and where to take us. He then explained in somewhat of a disorganized fashion with his word finding difficulties that it is at least the third time someone called and said, you are ready to go and then not ready to go, but other than that, I don't know. He is somewhat disjointed in his conversation, but does try to articulate and get across what he is trying to say. His ability to explain is limited by his cognitive impairment. He denied depression, acknowledges feeling anxious, as he is anticipating going to a new place. He reports he sleeps well most of the time, but he is retired, so things do not affect him the same way anymore. He describes appetite as normal. When asked about hallucinations, he stated, just before I left here for lunch, someone asked me the same question, I have hallucinations, but they are covered by Parkinson's, no, Alzheimer's. He did seem to be able to relate his symptomatology to the cognitive impairment. According to the nursing staff, he has been doing well. He does exhibit periods where he is less verbal. He has episodes of confusion last night. He disrobed and was wearing only sleeves and was standing in the doorway, waiting for someone. He does seem to be overly concerned with his roommate at times. He woke up early secondary to some disruptions on the unit. He slept for hours and did not require p.r.n. medications. PSYCHIATRIC REVIEW OF SYSTEMS: Per HPI. All other systems reviewed and negative for complaints. PAST MEDICAL HISTORY: Reviewed per chart. ALLERGIES: No known allergies. MEDICATIONS: No changes. MENTAL STATUS EXAMINATION: He is awake, alert, and oriented to person. He believes he is somewhere in the [facility] or outside of [place], [place]. Mood is euthymic. Affect is mildly anxious. No stoney or hypomania. No delusions or paranoia. No agitation or aggression. Insight and judgment limited. Memory has gaps. DIAGNOSES: * Intermittent explosive disorder. * Major depressive disorder, moderate. * Parkinson's dementia. [place], [place] PROGRESS NOTE NAME: FRANCISCO RAMOS UNIT #: [id number] ROOM: 311 DOCTOR: CHRISTIE ELIZABETH BIRTHDATE: [birth year] ASSESSMENT AND PLAN: * Continue current medication regimen as is. Obtain a CBC with diff, CMP, valproic acid level, serum ammonia level for 04/05/2025. * Encourage the patient to actively participate in unit programming group and milieu therapy. * Continue to monitor for safety with fall precautions as needed, medications and side effects. * Labs, vitals, imaging and medical problems, medical chart and other paperwork reviewed and taken into consideration when making the treatment plan. * Obtain collaterals from family and/or outpatient provider. * Medical consult order is ongoing. * Estimated length of stay is approximately 2-3 days. Christie Eze PMHNP-BC VLAD/CULLEN TID: [id number] CM:PNTRANS 1615 CHRISTIEJASMEET MONTESEZ PMHNP-BC 04/04/25 1717 interface Normal [facility] PROGRESS NOTEon 04-03-2025 Scalemaker Report [place], [place] PROGRESS NOTE NAME: FRANCISCO RAMOS UNIT #: [id number] ROOM: 311 DOCTOR: DELFINO ARCE MD BIRTHDATE: [birth year] DOS: 04/03/2025 INTERVAL NOTE CHIEF COMPLAINT: Oh, that sounds good to me. SUMMARY OF THE VISIT: The patient was interviewed as he was sitting next to a male peer. He was engaging in conversation, but then stopped when I approached and engaged in conversation with me. He smiled readily and seems relatively euthymic. We discussed how he has been feeling here and he reports he is feeling well, sleeping well, eating well, and is feeling like he is ready to leave. When I told him that this was very eminent and will be most likely after the weekend, he nodded in approval and stated he was good with that. MENTAL STATUS EXAMINATION: He is alert and oriented. There are significant time gaps. Mood does seem to be relatively euthymic and affect is appropriate. There is no hypomania, stoney or gross psychosis noted. He does process slowly and short-term memory continues to be problematic. PLAN: His valproic acid level is therapeutic at 61.2, so I will maintain his current Depakote dosing. I will renew his p.r.n. Ativan should he require intervention. We will engage in individual and alfonso milieu activity, returning to the least restrictive environment when psychiatrically stable. MD CHRISTOPHE JAIN/CULLEN TID: [id number] CM:PNTRANS 1020 DELFINO ARCE MD 04/03/25 1121 interface Normal [facility] PROGRESS NOTEon 04-02-2025 Scalemaker Report [place], [place] PROGRESS NOTE NAME: FRANCISCO RAMOS UNIT #: [id number] ROOM: 311 DOCTOR: CHRISTIE ELIZABETH BIRTHDATE: [birth year] DOS: 04/02/2025 PSYCHIATRY PROGRESS NOTE CHIEF COMPLAINT: I am not too bad. Physically, I am hanging in there, but psychologically I am bad. HISTORY OF PRESENT ILLNESS: The patient was seen during rounds. Progress was discussed with the treatment team. Please refer to the nursing and medical notes for details. Upon evaluation when I met with the patient today, he readily engaged in the interview. He asked, How much do I know about what has been going on?. He explained he feels depressed and anxious because they are working on things for him. He stated his is visiting. He is somewhat confused in terms of what day he saw her. He understands plans are being made in order for him to go to a [facility]. He denied any issues with sleep or appetite. He denied paranoia, auditory or visual hallucinations. He did not present as somnolent, sedated, increasingly lethargic, not exhibiting EPS, TD, or akathisia. The nursing staff stated he has not had any behaviors. No delusions or hallucinations. He is medication compliant and he slept 6 hours. PSYCHIATRIC REVIEW OF SYSTEMS: Per HPI. All other systems reviewed and negative for complaints. PAST MEDICAL HISTORY: Reviewed per chart. ALLERGIES: No known drug allergies. MEDICATIONS: No changes. MENTAL STATUS EXAMINATION: He is awake, alert, and oriented to person. He stated he was at [facility]. There are gaps in memory. Mood is depressed. Affect is anxious. No stoney or hypomania. No delusions or paranoia. No SI or HI. He processes slowly and memory has gaps. DIAGNOSES: * Intermittent explosive disorder. * Major depressive disorder, moderate. * Parkinson's dementia. ASSESSMENT AND PLAN: * Continue current medication regimen as is. * Encourage the patient to actively participate in unit programming group and milieu therapy. * Continue to monitor for safety with fall precautions as needed, medications and side effects. * Labs, vitals, imaging and medical problems, medical chart and other paperwork reviewed and taken into consideration when making the treatment plan. * Obtain collaterals from family and/or outpatient provider. * Medical consult order is ongoing. [place], [place] PROGRESS NOTE NAME: FRANCISCO RAMOS UNIT #: [id number] ROOM: 311 DOCTOR: CHRISTIE ELIZABETH BIRTHDATE: [birth year] * Estimated length of stay 1-3 days. ALMAZ Mcclain HC/PETER TID: [id number] CM:PNTRANS 1435 CHRISTIE MUSE 04/02/25 1536 interface Normal [facility] VALPROIC ACID (DEPAKENE)on 0 04-02-2025 VALPROIC ACID (DEPAKENE) 61.2 ug/ml Normal 50-100 [facility] Comment on above: Performed By: #### V AL #### [facility] [address] [place] [address] PROGRESS NOTEon 04-01-2025 Scalemaker Report [place], [place] PROGRESS NOTE NAME: FRANCISCO RAMOS UNIT #: [id number] ROOM: 311 DOCTOR: DELFINO ARCE MD BIRTHDATE: [birth year] DOS: 04/01/2025 INTERVAL NOTE CHIEF COMPLAINT: Oh, I had a good breakfast. SUMMARY OF THE VISIT: The patient was interviewed as he was sitting in the dining room. He had already eaten breakfast. He engaged readily in conversation with me. When I told him we were targeting a discharge by the end of the week, he questioned me as why not today. I did tell him we needed to adjust medications slightly more and check some blood work and he nodded in approval. He has been fairly pleasant and bright and has been redirectable. MENTAL STATUS EXAMINATION: He is alert and oriented to person, possibly place, but not time. Mood does seem to be trending towards euthymia. Affect is much more appropriate. There is no stoney, hypomania, or gross psychosis. PLAN: I will go ahead and check a valproic acid level in the a.m. to ensure that it is therapeutic. We will engage in individual and alfonso milieu activity, returning to the least restrictive environment when psychiatrically stable. DELFINO ARCE MD WP/VIS TID: [id number] CM:PNTRANS 0913 DELFINO ARCE MD 04/01/25 1016 interface Normal [facility] PROGRESS NOTEon 03-31-2025 Scalemaker Report [place], [place] PROGRESS NOTE NAME: FRANCISCO RAMOS UNIT #: [id number] ROOM: 311 DOCTOR: DELFINO ARCE MD BIRTHDATE: [birth year] DOS: 03/31/2025 INTERVAL NOTE CHIEF COMPLAINT: I don't know. What's the long-term goal here, doc? SUMMARY OF THE VISIT: The patient was interviewed first as he was standing in his doorway. Later, he went in and sat on his bed and we continued to talk. He was pleasant and cooperative and voiced no complaints, although he was pleasantly confused. He was spot on, on some topics, but on other topics, he tended to confabulate. There was no agitation or aggression. No mood lability noted. Outwardly, he is tolerating the current medication regimen well. MENTAL STATUS EXAMINATION: He is alert and oriented to person, place, not necessarily time. Mood does seem to be relatively euthymic. Affect appropriate. He does tend to perseverate and does ask the same questions over and over. There was no hypomania, stoney, or psychosis noted. Short-term memory is poor. PLAN: His last valproic acid level was subtherapeutic at 30.2. I will go ahead and increase his Depakote sprinkles from 250 mg twice a day to 250 mg three times a day to better control any potential mood lability. I will also maximize out the dose of the Exelon patch, bringing it from 9.5 mg a day to 13.3 mg a day. We will continue to engage in individual and alfonso milieu activity, returning to the least restrictive environment when psychiatrically stable. DELFINO ARCE MD WP/NELLIE TID: [id number] CM:PNTRANS 1014 DELFINO ARCE MD 03/31/25 1115 interface Normal [facility] VALPROIC ACID (DEPAKENE)on 0 03-31-2025 VALPROIC ACID (DEPAKENE) 30.2 ug/ml Low 50-100 [facility] Comment on above: Performed By: #### V AL #### [facility] [address] [place] [address] PROGRESS NOTEon 03-30-2025 Scalemaker Report [place], [place] PROGRESS NOTE NAME: FRANCISCO RAMOS UNIT #: [id number] ROOM: 311 DOCTOR: MO STEVENSON CNP BIRTHDATE: [birth year] DOS: 03/30/2025 CHIEF COMPLAINT: I am just getting things straightened up here. SUMMARY OF THE VISIT: The patient was interviewed as he stood at his bedside folding his sheets. His family was in to visit him and had just recently left the unit. The patient reports that he sleeps well. He reports that his appetite is good. He denies feeling depressed or anxious. Staff reports that the patient has been pleasantly confused. He has been compliant with taking his medications. He has not been having any behaviors. MENTAL STATUS EXAMINATION: The patient is alert and oriented to person. There is no stoney or hypomania noted. No delusions or paranoia noted. No auditory or visual hallucinations noted. The patient's mood is pleasant and calm with me. His affect is congruent with mood. He is in no acute distress. His speech is clear. His eye contact is fair. There is no agitation, irritability, or aggression noted. No tardive dyskinesia or extrapyramidal side effects noted. The patient's insight and judgment is poor. His thought process is impaired. His memory is with impairment. PLAN: Increase the patient's Exelon to 9.5 mg daily to help with cognition and awareness. This will start tomorrow. We will check a valproic acid level as well on Monday. Continue to encourage individual and alfonso milieu activities. Continue fall and safety precautions. Plan will be to return the patient to the least restrictive environment once he is psychiatrically stable. NELSON Cox/CULLEN TID: [id number] CM:PNTRANS 1610 MO STEVENSON CNP 03/30/25 1712 interface Normal [facility] URINALYSIS REFLEX TO CULTURE on 03-30-2025 BACTERIA TRACE Normal [facility] Comment on above: Performed By: #### U ARFXUC #### [facility] [address] [place] [address] Bilirubin Ql (U) Negative Normal Negative [facility] Comment on above: Performed By: #### U ARFXUC #### [facility] [address] [place] [address] Clarity (U) Clear Normal Clear [facility] Comment on above: Performed By: #### U ARFXUC #### [facility] [address] [place] [address] Color (U) Yellow Normal Yellow [facility] Comment on above: Performed By: #### U ARFXUC #### [facility] [address] [place] [address]12 Epithelial cells LM Ql (Urine sed) 0-2 Normal [facility] Comment on above: Performed By: #### U ARFXUC #### [facility] [address] [place] [address] Glucose Ql (U) Negative Normal Negative [facility] Comment on above: Performed By: #### U ARFXUC #### [facility] [address] [place] [address] Hemoglobin Ql (U) Negative Normal Negative [facility] Comment on above: Performed By: #### U ARFXUC #### [facility] [address] [place] [address] KETONE Trace Normal Negative [facility] Comment on above: Performed By: #### U ARFXUC #### [facility] [address] [place] [address] LEUKO ESTERASE Negative Normal Negative [facility] Comment on above: Performed By: #### U ARFXUC #### [facility] [address] [place] [address] Nitrite Ql (U) Negative Normal Negative [facility] Comment on above: Performed By: #### U ARFXUC #### [facility] [address] [place] [address] pH (U) 7.0 [pH] Normal 4.5-8.0 [facility] Comment on above: Performed By: #### U ARFXUC #### [facility] [address] [place] [address] Protein Ql (U) Negative Normal Negative [facility] Comment on above: Performed By: #### U ARFXUC #### [facility] [address] [place] [address]2835 RBC 0-2 Normal 0-2 [facility] Comment on above: Performed By: #### U ARFXUC #### [facility] [address] [place] [address] Specific gravity (U) [Rel density] 1.015 Normal 1.001-1.030 [facility] Comment on above: Performed By: #### U ARFXUC #### [facility] [address] [place] [address] URINE REFLEX COMMENT NO Normal NO [facility] Comment on above: Performed By: #### U ARFXUC #### [facility] [address] [place] [address] UROBILINOGEN 0.2 E.U./dl Normal 0.0-1.0 [facility] Comment on above: Performed By: #### U ARFXUC #### [facility] [address] [place] [address] WBC 0-2 Normal 0-5 [facility] Comment on above: Performed By: #### U ARFXUC #### [facility] [address] [place] [address] FREE T4on 03-29-2025 Free T4 [Mass/Vol] 1.33 ng/dL Normal 0.89-1.76 [facility] Comment on above: Performed By: #### F T4 ####[facility] [address] [place] [address] PROGRESS NOTEon 03-29-2025 Scalemaker Report [place], [place] PROGRESS NOTE NAME: FRANCISCO RAMOS UNIT #: [id number] ROOM: 311 DOCTOR: MO STEVENSON CNP BIRTHDATE: [birth year] DOS: 03/29/2025 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 He reports that he sleeps well. His appetite is good. He denies being depressed. He reports he feels a little bit anxious about giving up his license; however, he knows it was the right thing to do. Staff reports that he has been pleasantly confused. He is compliant with taking his medications. He has not had any behaviors. He slept 8 hours last night. His family was in visiting today. MENTAL STATUS EXAMINATION: The patient is alert and oriented to person and time with gaps. There is no stoney or hypomania noted. No delusions or paranoia noted. No auditory or visual hallucinations noted. The patient's mood is pleasant and calm. His affect is smiling. He is in no acute distress. His speech is clear. His eye contact is fair. There is no tardive dyskinesia or extrapyramidal side effects noted. No agitation, irritability, or aggression noted. The patient's insight and judgment is poor. His thought process is relevant. His memory is with impairment. Confusion is noted. PLAN: We will continue the patient's medications as prescribed as he does seem to be tolerating them without side effects and they seem to be effective. He did just have an increase in his Exelon yesterday. We will plan to increase it tomorrow. The Exelon will augment his Namenda to help with cognition and awareness. Continue individual and alfonso milieu activities. Continue fall and safety precautions. Plan will be to return the patient to least restrictive environment once he is psychiatrically stable. Mo Stevenson CNP [place]/PETER [place], [place] PROGRESS NOTE NAME: FRANCISCO RAMOS UNIT #: [id number] ROOM: 311 DOCTOR: MO STEVENSON CNP BIRTHDATE: [birth year] TID: [id number] CM:PNTRANS 1631 MO STEVENSON CNP 03/29/25 1733 interface Normal [facility] ABDOMEN (KUB)on 03-28-2025 CRABD Name: FRANCISCO RAMOS Phys: FEDE HARTLEY : 1950 Age: 75 Sex: M Acct: [id number] Loc: 311 2 Exam Date: 03/28/2025 Status: ADM IN Radiology No: [id number] Unit No: [id number] EXAM# TYPE/EXAM RESULT [id number] RAD/ABDOMEN (KUB) SEE REPORT INDICATION: Abdominal pain. Constipation for 2 weeks. TECHNIQUE: Two view(s) of the abdomen. COMPARISON: None available. FINDINGS: Moderate stool and air visualized throughout the colon compatible with constipation. No colonic mass. No air-fluid levels or intraperitoneal free air to suggest bowel obstruction or perforation. There are no convincing calculi or abnormal calcifications. No focal osseous abnormalities. Increased density seen within the L1 vertebral body probably compatible with vertebroplasty. IMPRESSION: Moderate stool and air visualized throughout the colon compatible with constipation. No acute mechanical bowel obstruction or perforation. Signed by Parrish Aldana MD [facility] [address] [place] [address] REPORT SIGNED IN OTHER VENDOR SYSTEM 03/28/2025 Reported By: PARRISH ALDANA M.D. CC: Technologist: SCAR DELEON Transcribed Date/Time: 03/28/2025 (1559) [place] Supervisor: ANGELICA Printed Date/Time: 03/28/2025 (6645) PAGE 1 Signed Report Normal [facility] AMMONIAon 03-28-2025 Ammonia (P) [Moles/Vol] 16 umol/L Normal 11-32 [facility] Comment on above: Performed By: #### H BA1C, FOL, LIPID, AMM, TSH, CMP, B12, VITD, CBCD ####[facility] [address] [place] [address] CBC with DIFFERENTIALon 03-05 Basophils (Bld) [#/Vol] 0.0 10*3/uL Normal 0.0-0.1 [facility] Comment on above: Performed By: #### H BA1C, FOL, LIPID, AMM, TSH, CMP, B12, VITD, CBCD #### [facility] [address] [place] [address] Basophils/100 WBC (Bld) 0.2 % Normal 0.0-1.0 [facility] Comment on above: Performed By: #### H BA1C, FOL, LIPID, AMM, TSH, CMP, B12, VITD, CBCD #### [facility] [address] [place] [address] Eosinophils (Bld) [#/Vol] 0.0 10*3/uL Normal 0.0-0.4 [facility] Comment on above: Performed By: #### H BA1C, FOL, LIPID, AMM, TSH, CMP, B12, VITD, CBCD #### [facility] [address] [place] [address] Eosinophils/100 WBC (Bld) 0.0 % Low 1.0-4.0 [facility] Comment on above: Performed By: #### H BA1C, FOL, LIPID, AMM, TSH, CMP, B12, VITD, CBCD #### [facility] [address] [place] [address] Hematocrit (Bld) [Volume fraction] 42.3 % Normal 42.0-52.0 [facility] Comment on above: Performed By: #### H BA1C, FOL, LIPID, AMM, TSH, CMP, B12, VITD, CBCD #### [facility] [address] [place] [address] Hemoglobin (Bld) [Mass/Vol] 13.8 g/dL Low 14.0-18.0 [facility] Comment on above: Performed By: #### H BA1C, FOL, LIPID, AMM, TSH, CMP, B12, VITD, CBCD #### [facility] [address] [place] [address] IG # 0.0 10*3/uL Normal 0.0-0.1 [facility] Comment on above: Performed By: #### H BA1C, FOL, LIPID, AMM, TSH, CMP, B12, VITD, CBCD #### [facility] [address] [place] [address] IG % 0.5 % Normal 0.0-1.0 [facility] Comment on above: Performed By: #### H BA1C, FOL, LIPID, AMM, TSH, CMP, B12, VITD, CBCD #### [facility] [address] [place] [address] Lymphocytes (Bld) [#/Vol] 1.4 10*3/uL Normal 1.3-4.4 [facility] Comment on above: Performed By: #### H BA1C, FOL, LIPID, AMM, TSH, CMP, B12, VITD, CBCD #### [facility] [address] [place] [address] Lymphocytes/100 WBC (Bld) 21.8 % Low 27.0-41.0 [facility] Comment on above: Performed By: #### H BA1C, FOL, LIPID, AMM, TSH, CMP, B12, VITD, CBCD #### [facility] [address] [place] [address] MCV (RBC) [Entitic vol] 93.2 fL Normal 80.0-94.0 [facility] Comment on above: Performed By: #### H BA1C, FOL, LIPID, AMM, TSH, CMP, B12, VITD, CBCD #### [facility] [address] [place] [address] MEAN CORPUSCULAR HGB 30.4 pg Normal 27.0-31.0 [facility] Comment on above: Performed By: #### H BA1C, FOL, LIPID, AMM, TSH, CMP, B12, VITD, CBCD #### [facility] [address] [place] [address] MEAN CORPUSCULAR HGB CONC 32.6 g/dl Low 33.0-37.0 [facility] Comment on above: Performed By: #### H BA1C, FOL, LIPID, AMM, TSH, CMP, B12, VITD, CBCD #### [facility] [address] [place] [address] Monocytes (Bld) [#/Vol] 0.7 10*3/uL Normal 0.1-1.0 [facility] Comment on above: Performed By: #### H BA1C, FOL, LIPID, AMM, TSH, CMP, B12, VITD, CBCD #### [facility] [address] [place] [address] Monocytes/100 WBC (Bld) 10.2 % High 3.0-9.0 [facility] Comment on above: Performed By: #### H BA1C, FOL, LIPID, AMM, TSH, CMP, B12, VITD, CBCD #### [facility] [address] [place] [address] Neutrophils (Bld) [#/Vol] 4.4 10*3/uL Normal 2.3-7.9 [facility] Comment on above: Performed By: #### H BA1C, FOL, LIPID, AMM, TSH, CMP, B12, VITD, CBCD #### [facility] [address] [place] [address] Neutrophils/100 WBC (Bld) 67.3 % Normal 47.0-73.0 [facility] Comment on above: Performed By: #### H BA1C, FOL, LIPID, AMM, TSH, CMP, B12, VITD, CBCD #### [facility] [address] [place] [address] NUCLEATED RED BLOOD CELL 0.0 10*3/uL Normal 0.0-0.0 [facility] Comment on above: Performed By: #### H BA1C, FOL, LIPID, AMM, TSH, CMP, B12, VITD, CBCD #### [facility] [address] [place] [address] NUCLEATED RED BLOOD CELL 0.0 % Normal 0.0-0.0 [facility] Comment on above: Performed By: #### H BA1C, FOL, LIPID, AMM, TSH, CMP, B12, VITD, CBCD #### [facility] [address] [place] [phone] PLATELET COUNT AUTOMATED 217 10*3/uL Normal 130-400 [facility] Comment on above: Performed By: #### H BA1C, FOL, LIPID, AMM, TSH, CMP, B12, VITD, CBCD #### [facility] [address] [place] [address] Platelet mean volume (Bld) [Entitic vol] 10.1 fL Normal 9.6-12.3 [facility] Comment on above: Performed By: #### H BA1C, FOL, LIPID, AMM, TSH, CMP, B12, VITD, CBCD #### [facility] [address] [place] [address] RBC (Bld) [#/Vol] 4.54 10*6/uL Normal 4.50-5.90 [facility] Comment on above: Performed By: #### H BA1C, FOL, LIPID, AMM, TSH, CMP, B12, VITD, CBCD #### [facility] [address] [place] [address] RED CELL DISTRI WIDTH 13.2 % Normal 0-14.5 [facility] Comment on above: Performed By: #### H BA1C, FOL, LIPID, AMM, TSH, CMP, B12, VITD, CBCD #### [facility] [address] [place] [address] WBC (Bld) [#/Vol] 6.5 10*3/uL Normal 4.8-10.8 [facility] Comment on above: Performed By: #### H BA1C, FOL, LIPID, AMM, TSH, CMP, B12, VITD, CBCD #### [facility] [address] [place] [address] COMPREHENSIVE METABOLIC PANE [facility] 03-28-2025 Albumin [Mass/Vol] 3.9 g/dL Normal 3.4-5.0 [facility] Comment on above: Performed By: #### H BA1C, FOL, LIPID, AMM, TSH, CMP, B12, VITD, CBCD ####[facility] [address] [place] [address] ALP [Catalytic activity/Vol] 81 U/L Normal 46-116 [facility] Comment on above: Performed By: #### H BA1C, FOL, LIPID, AMM, TSH, CMP, B12, VITD, CBCD ####[facility] [address] [place] [address] ALT [Catalytic activity/Vol] 42 U/L Normal 5-49 [facility] Comment on above: Performed By: #### H BA1C, FOL, LIPID, AMM, TSH, CMP, B12, VITD, CBCD ####[facility] [address] [place] [address] AST [Catalytic activity/Vol] 38 U/L High 0-34 [facility] Comment on above: Performed By: #### H BA1C, FOL, LIPID, AMM, TSH, CMP, B12, VITD, CBCD ####[facility] [address] [place] [address] Bilirubin [Mass/Vol] 0.4 mg/dL Normal 0.3-1.2 [facility] Comment on above: Performed By: #### H BA1C, FOL, LIPID, AMM, TSH, CMP, B12, VITD, CBCD ####[facility] [address] [place] [address] CALCIUM,TOTAL 9.5 md/dL Normal 8.7-10.4 [facility] Comment on above: Performed By: #### H BA1C, FOL, LIPID, AMM, TSH, CMP, B12, VITD, CBCD ####[facility] [address] [place] [address] Chloride [Moles/Vol] 103 mmol/L Normal 98-107 [facility] Comment on above: Performed By: #### H BA1C, FOL, LIPID, AMM, TSH, CMP, B12, VITD, CBCD ####[facility] [address] [place] [address] CO2 [Moles/Vol] 28 mmol/L Normal 20-31 [facility] Comment on above: Performed By: #### H BA1C, FOL, LIPID, AMM, TSH, CMP, B12, VITD, CBCD ####[facility] [address] [place] [address] Creatinine [Mass/Vol] 0.90 mg/dL Normal 0.70-1.30 [facility] Comment on above: Performed By: #### H BA1C, FOL, LIPID, AMM, TSH, CMP, B12, VITD, CBCD ####[facility] [address] [place] [address] EST GLOM FILT > 60 Normal [facility] Comment on above: Result Comment: Result Units: mL/min/1.73 m2 Note: Persistent reduction for 3 months or more of an eGFR of <60 ml/min/1.73 m2 defines Chronic Kidney Disease (CKD). Patients with eGFR values greater than or equal to 60 ml/min/1.73 m2 may also have CKD if evidence of persistent proteinuria is present. STAGES OF CKD eGFR Stage 1 Kidney damage with normal kidney function >=90 Stage 2 Kidney damage with mild loss of kidney function 89-60 Stage 3a Mild to moderate loss of kidney function 59-44 Stage 3b Moderate to severe loss of kidney function 43-30 Stage 4 Severe loss of kidney function 29-15 Stage 5 Kidney failure < 15 . Performed By: #### H BA1C, FOL, LIPID, AMM, TSH, CMP, B12, VITD, CBCD ####[facility] [address] [place] [address] ESTIMATED GLOM FILT RATE > 60 Normal [facility] Comment on above: Performed By: #### H BA1C, FOL, LIPID, AMM, TSH, CMP, B12, VITD, CBCD ####[facility] [address] [place] [address] Glucose [Mass/Vol] 101 mg/dL High 65-99 [facility] Comment on above: Performed By: #### H BA1C, FOL, LIPID, AMM, TSH, CMP, B12, VITD, CBCD ####[facility] [address] [place] [address] Potassium [Moles/Vol] 4.1 mmol/L Normal 3.4-5.1 [facility] Comment on above: Performed By: #### H BA1C, FOL, LIPID, AMM, TSH, CMP, B12, VITD, CBCD ####[facility] [address] [place] [address] Sodium [Moles/Vol] 141 mmol/L Normal 136-145 [facility] Comment on above: Performed By: #### H BA1C, FOL, LIPID, AMM, TSH, CMP, B12, VITD, CBCD ####[facility] [address] [place] [address] TOTAL PROTEIN 6.9 g/L Normal 5.7-8.2 [facility] Comment on above: Performed By: #### H BA1C, FOL, LIPID, AMM, TSH, CMP, B12, VITD, CBCD ####[facility] [address] [place] [address] Urea nitrogen [Mass/Vol] 16 mg/dL Normal 9-23 [facility] Comment on above: Performed By: #### H BA1C, FOL, LIPID, AMM, TSH, CMP, B12, VITD, CBCD ####[facility] [address] [place] [address] FOLIC ACIDon 03-28-2025 FOLIC ACID 23.97 ng/mL Normal 5.38-24.00 [facility] Comment on above: Result Comment: 0.35 - 3.7 ng/mL - Folate Deficiency 3.38 - 5.38 ng/mL - Indeterminate > 5.38 ng/mL - Normal Performed By: #### H BA1C, FOL, LIPID, AMM, TSH, CMP, B12, VITD, CBCD ####[facility] [address] [place] [address] [id number] 03-28-2025 ESTIMATED AVERAGE GLUCOSE 108 Normal [facility] Comment on above: Performed By: #### H BA1C, FOL, LIPID, AMM, TSH, CMP, B12, VITD, CBCD ####[facility] [address] [place] [address] HbA1c (Bld) [Mass fraction] 5.4 % Normal 4.8-5.6 [facility] Comment on above: Result Comment: Standarization of method based on National Glycohemoglobin Standardization Program (NGSP). HEMOGLOBIN A1c(%) DEGREE of GLUCOSE CONTROL 5.7-6.4% Prediabetes range >6.4% Diagnosis of Diabetes <7% Glycemic control for adults with Diabetes Performed By: #### H BA1C, FOL, LIPID, AMM, TSH, CMP, B12, VITD, CBCD ####[facility] [address] [place] [address] LIPID PANELon 03-28-2025 Cholesterol [Mass/Vol] 155 mg/dL Normal <200 [facility] Comment on above: Performed By: #### H BA1C, FOL, LIPID, AMM, TSH, CMP, B12, VITD, CBCD ####[facility] [address] [place] [address] Cholesterol in HDL [Mass/Vol] 34 mg/dL Low 40-60 [facility] Comment on above: Performed By: #### H BA1C, FOL, LIPID, AMM, TSH, CMP, B12, VITD, CBCD ####[facility] [address] [place] [address] Cholesterol in LDL [Mass/Vol] 83 mg/dL Normal 9-159 [facility] Comment on above: Performed By: #### H BA1C, FOL, LIPID, AMM, TSH, CMP, B12, VITD, CBCD ####[facility] [address] [place] [address] Triglyceride [Mass/Vol] 190 mg/dL High <150 [facility] Comment on above: Result Comment: TRIGLYCERIDE RISK ASSESSMENT: 150-199 mg/dl BORDERLINE HIGH >200 mg//dl HIGH . Performed By: #### H BA1C, FOL, LIPID, AMM, TSH, CMP, B12, VITD, CBCD ####[facility] [address] [place] [address] VLDL CHOLESTEROL 38 mg/dL Normal 6-40 [facility] Comment on above: Performed By: #### H BA1C, FOL, LIPID, AMM, TSH, CMP, B12, VITD, CBCD ####[facility] [address] [place] [address] PATIENT HISTORY AND PHYSICAL EXAMon 03-28-2025 Scalemaker Report [place], [place] PATIENT HISTORY AND PHYSICAL EXAM NAME: FRANCISCO RAMOS UNIT #: [id number] ROOM: [facility] DOCTOR: EZE MUSECHRISTIE BIRTHDATE: [birth year] DOS: 03/28/2025 PSYCHIATRIC EVALUATION CHIEF COMPLAINT: I came in on Monday and I have Parkinson's FYI. HISTORY OF PRESENT ILLNESS: The patient is a 75-year-old male who was transferred to [facility] Unit from [facility] Emergency Department where he was taken via EMS after police were called as he was more confused and combative with his at home. He presented to the Emergency Department with an acute mental status change characterized by combative and aggressive behavior towards his and daughter after a birthday alliance party. This was inappropriate, new, and unsafe behavior for his baseline. Recent behavioral compensation started 2 weeks ago following hospitalization and surgery for bowel obstruction at [facility]. At the time, he was noted to be off his routine, more agitated with progressive cognitive functional decline. He carries a history of Parkinson's disease diagnosed 6 years ago with associated progressive anxiety and depression since the diagnosis. Family noted a gradual decline over the past several years, but acute worsening decline since surgery. Upon evaluation when I met with the patient today, he was awake, alert, and oriented to person. He knew it was March 2025 and [place]iss[place] was the president. He did not feel as though he was at the hospital, but later on, he stated he knew he was in the hospital and he was here because they were trying to figure out drug reactions. There were some obvious gaps in his memory. He was very disorganized, exhibited difficulty articulating, and unable to cohesively recount recent events. When asked if he felt depressed, his response was I am past that phase. He does not endorse any current depression. He denies any issues with sleep or appetite; however, this is not the case as family has noted he has been increasingly agitated at home. He has advanced Parkinson's disease and comorbid depression and anxiety, presenting with superimposed acute delirium, likely precipitated by anesthesia from the recent surgery and hospitalization. This is characterized by acute confusion, agitation, hallucinations, and a fluctuating mental status. He did not seem to be hallucinating during the evaluation today, but it was stated prior to him coming into the hospital that he had been hallucinating. There is underlying Parkinson's related decline cognitively with recent acute exacerbation. He is now admitted to the [facility] to rule out organic factors, to stabilize him on medications, to engage him in individual group and milieu programming and therapeutic activities, and to discharge him to the least restrictive environment. PSYCHIATRIC REVIEW OF SYSTEMS: He has depression with cognitive impairment, anxiety related to his confusion, intermittent agitation. There is a major neurocognitive disorder in the element of dementia with behavioral disturbance. He has Parkinson's disease with dementia and likely multifactorial delirium. MEDICAL REVIEW OF SYSTEMS: Per HPI. All other systems reviewed and negative for complaints. [place], [place] PATIENT HISTORY AND PHYSICAL EXAM NAME: FRANCISCO RAMOS UNIT #: [id number] ROOM: 311 DOCTOR: CHRISTIE ELIZABETH BIRTHDATE: [birth year] PAST MEDICAL HISTORY: Adult failure to thrive with Parkinson's, CKD stage 2, anxiety, depression and mood disorder, CAD, hypertension, hyperlipidemia, BPH with obstructive pathology. He is status post TURP. HOME MEDICATIONS: Reviewed per chart. On admission, his medications included Namenda 5 mg daily, Wellbutrin 100 mg q.a.m., Lexapro 10 mg daily and 50 mg at bedtime. Medical medications were not yet put in per the medical staff. PSYCHIATRIC HISTORY: Anxiety and depression following Parkinson's diagnosis. No prior history of psychosis documented. Intermittent agitation over the past several years, worsening acutely. SUBSTANCE HISTORY: No collateral information obtained, and the patient denies any history of substance abuse or dependence. SOCIAL HISTORY: He was born and raised in [place], [place]. He has a master's degree in architecture. 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 He is . He has 3 children, a son, a daughter who are living. He stated another child after she was several months old. He could not state how she . He did state this caused emotional distress for he and his . He reports he does not have any grandchildren. ALLERGIES: No known drug allergies. MENTAL STATUS EXAMINATION: He is awake, alert, and oriented to person, not p (more content not included)... Normal [facility] THYROID STIM HORMONE (HS)on 03-28-2025 THYROID STIM HORMONE (HS) 6.163 uIU/ml High 0.550-4.780 [facility] Comment on above: Performed By: #### H BA1C, FOL, LIPID, AMM, TSH, CMP, B12, VITD, CBCD ####[facility] [address] [place] [address] VITAMIN B12on 03-28-2025 Cobalamin (Vitamin B12) [Mass/Vol] 666 pg/mL Normal 211-911 [facility] Comment on above: Result Comment: 247 - 911 pg/mL - Normal, Vitamin B12 Sufficiency Performed By: #### H BA1C, FOL, LIPID, AMM, TSH, CMP, B12, VITD, CBCD ####[facility] [address] [place] [address] VITAMIN D, 25-HYDROXYon 03-05 VITAMIN D, 25-HYDROXY 41.7 ng/mL Normal 30-100 [facility] Comment on above: Result Comment: < 20 ng/mL - Vitamin D Deficiency 20 - 30 ng/mL - Vitamin D Insufficiency 30 - 100 ng/mL - Vitamin D sufficiency > 100 ng/mL - Vitamin D Toxicity Performed By: #### H BA1C, FOL, LIPID, AMM, TSH, CMP, B12, VITD, CBCD ####[facility] [address] [place] [address] Discharge Instructionon 03-05 Discharge Instruction [facility] Medical Records Department [address] [place] [id number] Instructions for Home/Discharge Instructions 03/27/25 1016 MR#: [id number] Acct: [id number] Name: FRANCISCO RAMOS Rep #: [id number] : 1950 75 From: Jessica Chris MD [...] if applicable. Discharge Plan Admission Admit Date/Time: 03/25/25 22:59 Primary Reason for Your Visit: parkinson's disease with behavioral disturbance Attending Provider: Jessica Chris Primary Care Provider: Ethan Avendano Consulting Providers: Lacy Johnston Instructions Patient Instructions: Understanding Parkinson Disease, Parkinson Disease Emotions Discharge Orders/Prescription s Prescriptions: Continued immun glob K-ikl-xhli-IgA 0-50 10 gram recon soln 20 g .Route .n9myoxl Patient Comments: Every 4 weeks Rx Instructions: [...] be placed): [facility] Hospital or Unit 03/27/25 1016 Jessica Chris MD CC: Dr. Lacy Johnston MD; Dr. Ethan Avendano MD Signed Normal [facility] lymphocyte countOrd ered By: Lacy Johnston on 03-26-2025 Lymphocytes Auto (Unsp spec) [#/Vol] 0.76 10*3/uL Low 0.83-4.51 [facility] Absolute neutrophil countOrd ered By: Lacy Vickie on 03-26-2025 Neutrophils (Bld) [#/Vol] 4.2 10*3/uL 2.0-7.7 [facility] Anion gap in Serum or Plasma Ordered By: Lacy Vickie on 03-26-2025 Anion gap [Moles/Vol] 11 mmol/L 5-15 [facility] Automated lymphocyte count a s percentage of total leukocytesOrdered By: Lacy Johnston on 03-26-2025 Lymphocytes/100 WBC Auto (Unsp spec) 13.7 % Low 19-41 [facility] BUN/creatinine ratioOrdered By: Lacy Johnston on 03-26-2025 Urea nitrogen/Creatinine [Mass ratio] 20.6 mg/mg High 10-20 [facility] Basophil percentageOrdered B y: Lacy Johnston on 03-26-2025 Basophils/100 WBC (Bld) 0.4 % 0-1 [facility] Bilirubin, totalOrdered By: Lacy Johnston on 03-26-2025 Bilirubin [Mass/Vol] 0.29 mg/dL 0.00-1.30 [facility] CBC W/Diff, Automatedon 03-05 PLT EST SLT DEC Normal ADEQ [facility] Comment on above: Order Comment: CLEAN CATCH Performed By: #### L 400.0001 #### [facility] [address] [place], [place] [address]heath Merlos [place], [place], [id number] Carbon dioxide, total [Moles /volume] in Central venous bloodOrdered By: Lacy Vickie on 03-26-2025 CO2 [Moles/Vol] 24.9 mmol/L 21.0-32.0 [facility] Chloride assayOrdered By: Opal neely Vickie on 03-26-2025 Chloride [Moles/Vol] 102 mmol/L 98-108 [facility] Comprehensive Metabolic Prof ilon 03-26-2025 Albumin [Mass/Vol] 4.0 g/dL Normal 3.4-4.8 [facility] Comment on above: Order Comment: CLEAN CATCH Performed By: #### L 400.0001 #### [facility] [address] [place], [address] Albumin/Globulin [Mass ratio] 1.5 {ratio} Normal 0.9-2.4 [facility] Comment on above: Order Comment: CLEAN CATCH Performed By: #### L 400.0001 #### [facility] [address] [place], [address] ALK PHOS 83 U/L Normal 40-129 [facility] Comment on above: Order Comment: CLEAN CATCH Performed By: #### L 400.0001 #### [facility] [address] [place], [address] ALT [Catalytic activity/Vol] 88 U/L High <=46 [facility] Comment on above: Order Comment: CLEAN CATCH Performed By: #### L 400.0001 #### [facility] [address] [place], [address] AST [Catalytic activity/Vol] 68 U/L High <=37 [facility] Comment on above: Order Comment: CLEAN CATCH Performed By: #### L 400.0001 #### [facility] [address] [place], [address] Bilirubin [Mass/Vol] 0.29 mg/dL Normal 0.00-1.30 [facility] Comment on above: Order Comment: CLEAN CATCH Performed By: #### L 400.0001 #### [facility] [address] [place], [address] BUN/CRE 20.6 RATIO High 10-20 [facility] Comment on above: Order Comment: CLEAN CATCH Performed By: #### L 400.0001 #### [facility] [address] [place], [address] Calcium [Mass/Vol] 9.4 mg/dL Normal 7.6-11.0 [facility] Comment on above: Order Comment: CLEAN CATCH Performed By: #### L 400.0001 #### [facility] [address] [place], [address] Chloride [Moles/Vol] 102 mmol/L Normal 98-108 [facility] Comment on above: Order Comment: CLEAN CATCH Performed By: #### L 400.0001 #### [facility] [address] [place], [address] CO2 [Moles/Vol] 24.9 mmol/L Normal 21.0-32.0 [facility] Comment on above: Order Comment: CLEAN CATCH Performed By: #### L 400.0001 #### [facility] [address] [place], [address] Creatinine [Mass/Vol] 0.84 mg/dL Normal 0.70-1.20 [facility] Comment on above: Order Comment: CLEAN CATCH Performed By: #### L 400.0001 #### [facility] [address] [place], [address] ECRCL 0.00 ml/min Invalid Interpretation Code 50-250 [facility] Comment on above: Order Comment: CLEAN CATCH Performed By: #### L 400.0001 #### [facility] [address] [place], [address] GAP 11 Normal 5-15 [facility] Comment on above: Order Comment: CLEAN CATCH Performed By: #### L 400.0001 #### [facility] [address] [place], [address] GFR/1.73 sq M.predicted among non-blacks MDRD (S/P/Bld) [Vol rate/Area] 92 mL/min/{1.73_m2} Normal >60 [facility] Comment on above: Order Comment: CLEAN CATCH Result Comment: mL/m in/1.73m2 CKD-EPI Creatinine Equation (2020) Performed By: #### L 400.0001 #### [facility] [address] [place], [address] Globulin (S) [Mass/Vol] 2.6 g/dL Normal 2.2-4.2 [facility] Comment on above: Order Comment: CLEAN CATCH Performed By: #### L 400.0001 #### [facility] [address] [place], [address] Glucose [Mass/Vol] 109 mg/dL High 70-99 [facility] Comment on above: Order Comment: CLEAN CATCH Performed By: #### L 400.0001 #### [facility] [address] [place], [address] Potassium [Moles/Vol] 4.3 mmol/L Normal 3.3-5.1 [facility] Comment on above: Order Comment: CLEAN CATCH Performed By: #### L 400.0001 #### [facility] [address] [place], [address] Sodium [Moles/Vol] 138 mmol/L Normal 133-145 [facility] Comment on above: Order Comment: CLEAN CATCH Performed By: #### L 400.0001 #### [facility] [address] [place], [address] T PROT 6.6 g/dL Normal 5.9-8.4 [facility] Comment on above: Order Comment: CLEAN CATCH Performed By: #### L 400.0001 #### [facility] [address] [place], [address] Urea nitrogen [Mass/Vol] 17 mg/dL Normal 4-19 [facility] Comment on above: Order Comment: CLEAN CATCH Performed By: #### L 400.0001 #### [facility] [address] [place], [address] Electrocardiogram reportOrde red By: Jorden Hong on 03-26-2025 EKG study [facility] Cardiovascular Services [address] [place] [address] 12 Lead EKG 03/25/252221 MR#: [id number] Acct: [id number] Name: FRANCISCO RAMOS Rep #:[id number] : 1950 75 From: Jorden mane MD Attending Dr: Dr. Jessica Chris MD Status: ADM RENATE Ordering Dr: Manny Galeana MD Date: Location: DC3 Sex: M C Admitted: 03/25/25 Test Reason : Blood Pressure : */* mmHG Vent. Rate : 111 BPM Atrial Rate : 111 BPM P-R Int : 148 ms QRS Dur : 96 ms QT Int : 336 ms P-R-T Axes : 74 74 68 degrees QTcB Int : 456 ms Sinus tachycardia Otherwise normal ECG Confirmed by Jorden Hong ([id number]), online content editor JOON MORALES ([id number]) on 03/26/2025 1:58:23 PM Referred By: MEGHNA Confirmed By: Jorden Hong 03/26/25 1358 Date _ Jorden Hong MD CC: Dr. Ethan Avendano MD; Dr. Manny Galeana MD; Dr. Jessica Chris MD ~ Signed [facility] Other Eosinophil percentageOrdered By: Lacy Johnston on 03-26-2025 Eosinophils/100 WBC (Bld) 0.0 % 0-5 [facility] Erythrocyte distribution wid th ratioOrdered By: Lacy Vickie on 03-26-2025 Erythrocyte distribution width (RBC) [Ratio] 13.1 % 11.6-14.6 [facility] Erythrocyte distribution wid th standard deviationOrdered By: Lacy Vickie on 03-26-2025 Erythrocyte distribution width (RBC) [Ratio] 43.4 fl 35.1-43.9 [facility] Glomerular filtration rate ( GFR) estimation/1.73 sq m using serum, plasma, or whole bOrdered By: Lacy Johnston on 03-26-2025 GFR/1.73 sq M.predicted among non-blacks MDRD (S/P/Bld) [Vol rate/Area] 92 mL/min/{1.73_m2} >60 [facility] Comment on above: mL/min/1.73m2 CKD-EP I Creatinine Equation (2020) Hematocrit Auto (Bld) [Volum e fraction]Ordered By: Lacy Johnston on 03-26-2025 Hematocrit (Bld) [Volume fraction] 39.3 % Low 40-54 [facility] Hemoglobin measurementOrdere d By: Lacy Vickie 03-26-2025 Hemoglobin (Bld) [Mass/Vol] 13.4 g/dL 13.0-16.5 [facility] Immature granulocytes/100 WB C Auto (Bld)Ordered By: Lacy Vickie on 03-26-2025 Immature granulocytes/100 WBC (Bld) 0.700 % 0.0-0.9 [facility] Comment on above: IG% - Immature Granu locytes (promyelocytes, myelocytes and metamyelocytes) > 1% indicates that a LEFT SHIFT is Present. L509.7001on 03-26-2025 Procalcitonin 0.08 ng/mL Normal <=0.10 [facility] Comment on above: Result Comment: Inte rpretation: <0.10-0.25 ng/mL: Antibiotic therapy discouraged. Bacterial infection unlikely. 0.25-0.50 ng/mL: Antibiotic therapy encouraged. Bacterial infection possible. >0.50 ng/mL: Antibiotic therapy strongly encouraged. Suggestive of presence of bacterial infection. PCT should always be interpreted in the clinical context of the patient. Therefore, clinicians should use the PCT results in conjunction with other laboratory findings and clinical signs of the patient. Performed By: #### L 509.7001 #### [facility] [address] [place], [place], [id number] Laboratory - Chemistry and C hemistry - challengeOrdered By: Lacy Vickie on 03-26-2025 AST [Catalytic activity/Vol] 68 U/L High <38 [facility] MCV (mean corpuscular volume ) determinationOrdered By: Lacy Vickie 03-26-2025 MCV (RBC) [Entitic vol] 90.3 fL 80-94 [facility] Mean corpuscular hemoglobin (MCH) determinationOrdered By: Lacy Vickie 03-26-2025 MCH (RBC) [Entitic mass] 30.8 pg 27.0-32.0 [facility] Mean corpuscular hemoglobin concentration (MCHC) determinationOrdered By: Lacy Johnston on 03-26-2025 MCHC (RBC) [Mass/Vol] 34.1 g/dL 32-36 [facility] Mean platelet volume determi nationOrdered By: Lacy Johnston on 03-26-2025 Platelet mean volume (Bld) [Entitic vol] 10.5 fL 6.2-12.0 [facility] Monocyte percentageOrdered B y: Lacy Johnston on 03-26-2025 Monocytes/100 WBC (Bld) 9.9 % 0-10 [facility] Neutrophil percentageOrdered By: Lacy Vickie on 03-26-2025 Neutrophils/100 WBC (Bld) 75.3 % High 47-70 [facility] Nucleated red blood cell per centageOrdered By: Lacy Johnston on 03-26-2025 Nucleated RBC/100 WBC (Bld) [Ratio] 0 % 0-5 [facility] Platelet countOrdered By: Opal chin Vickie on 03-26-2025 Platelet count See comment 150-450 [facility] Comment on above: Please note: For thi s sample, a platelet estimate is provided rather than a platelet count due to platelet clumping. Other parameters associated with this sample are not affected by platelet clumping. If a more accurate platelet count is required, a redraw of the patient will be necessary. Platelet estimateOrdered By: Lacy Johnston on 03-26-2025 Platelets LM Ql (Bld) SLT DEC ADEQ [facility] Potassium measurement (mass/ volume)Ordered By: Lacy Johnston on 03-26-2025 Potassium (Unsp spec) [Mass/Vol] 4.3 mmol/L 3.3-5.1 [facility] RBC Auto (Bld) [#/Vol]Ordere d By: Lacy Johnston on 03-26-2025 RBC (Bld) [#/Vol] 4.35 10*6/uL Low 4.6-6.[address] [facility] Serum creatinine measurement (mass/volume)Ordered By: Lacy Johnston on 03-26-2025 Creatinine [Mass/Vol] 0.84 mg/dL 0.70-1.20 [facility] Serum globulin measurementOr dered By: Lacy Johnston on 03-26-2025 Globulin (S) [Mass/Vol] 2.6 g/dL 2.2-4.2 [facility] Serum glucose measurement (m ass/volume)Ordered By: Lacy Johnston on 03-26-2025 Glucose [Mass/Vol] 109 mg/dL High 70-99 [facility] Serum or plasma alanine garcia otransferase (ALT) measurementOrdered By: Lacy Johnston on 03-26-2025 ALT [Catalytic activity/Vol] 88 U/L High <47 [facility] Serum or plasma albumin john urement (mass/volume)Ordered By: Lacy Johnston on 03-26-2025 Albumin [Mass/Vol] 4.0 g/dL 3.4-4.8 [facility] Serum or plasma albumin/glob ulin mass ratioOrdered By: Lacy Johnston on 03-26-2025 Albumin/Globulin [Mass ratio] 1.5 {ratio} 0.9-2.4 [facility] Serum or plasma alkaline dylon sphatase measurementOrdered By: Lacy Johnston on 03-26-2025 ALP [Catalytic activity/Vol] 83 U/L 40-129 [facility] Serum or plasma calcium john urement (mass/volume)Ordered By: Lacy Johnston on 03-26-2025 Calcium [Mass/Vol] 9.4 mg/dL 7.6-11.0 [facility] Serum or plasma urea nitroge n measurement (mass/volume)Ordered By: Lacy Johnston on 03-26-2025 Urea nitrogen [Mass/Vol] 17 mg/dL 4-19 [facility] Sodium levelOrdered By: Jonathanu mn Vickie on 03-26-2025 Sodium [Moles/Vol] 138 mmol/L 133-145 [facility] Total proteinOrdered By: Jonathan umn Vickie on 03-26-2025 Protein [Mass/Vol] 6.6 g/dL 5.9-8.4 [facility] White blood cell (WBC) count Ordered By: Lacy Johnston on 03-26-2025 WBC (Bld) [#/Vol] 5.5 10*3/uL 4.4-11.0 [facility] 12 Lead EKGon 2025 12 Lead EKG [facility] Cardiovascular Services [address] [place] [address] 12 Lead EKG 03/25/252221 MR#: [id number] Acct: [id number] Name: FRANCISCO RAMOS Rep #: [id number] : 1950 75 From: Jorden Hong MD Attending Dr: Dr. Jessica Chris MD Status: AD M RENATE Ordering Dr: Manny Galeana MD Date: 03/25/25 Location: MS3 Sex: M C Admitted: 03/25/25 Test Reason : Blood Pressure : */* mmHG Vent. Rate : 111 BPM Atrial Rate : 111 BPM P-R Int : 148 ms QRS Dur : 96 ms QT Int : 336 ms P-R-T Axes : 74 74 68 degrees QTcB Int : 456 ms Sinus tachycardia Otherwise normal ECG Confirmed by Jorden Hong ([id number]), online content editor JOON MORALES ([id number]) on 03/26/2025 1:58:23 PM Referred By: MEGHNA Confirmed By: Jorden Hong 03/26/25 1358 Date Jorden Hong MD CC: Dr. Ethan Avendano MD; Dr. Manny Galeana MD; Dr. Jessica Chris MD Signed Normal [facility] Absolute lymphocyte countOrd ered By: Manny Galeana on 2025 Lymphocytes Auto (Unsp spec) [#/Vol] 0.57 10*3/uL Low 0.83-4.51 [facility] Absolute neutrophil countOrd ered By: Manny Galeana on 2025 Neutrophils (Bld) [#/Vol] 4.5 10*3/uL 2.0-7.7 [facility] Alcohol, Blood (Medical)-Ser umon 2025 SERUM ETOH < 10.1 Normal <=10.0 [facility] Comment on above: Result Comment: This test is for medical purposes only. The legal definition of intoxication varies according to local law. Performed By: #### L 501.9520, L501.8100 #### [facility] [address] [place], [place] [address], [address] Amphetamine detection with 1 000 ng/mL as cutoffOrdered By: Manny Galeana on 2025 Amphetamines Screen method >1000 ng/mL Ql (U) Negative < 200 ng/mL [facility] Anion gap in Serum or Plasma Ordered By: Manny Galeana on 2025 Anion gap [Moles/Vol] 11 mmol/L 5-15 [facility] Automated lymphocyte count a s percentage of total leukocytesOrdered By: Manny Galeana on 2025 Lymphocytes/100 WBC Auto (Unsp spec) 10.2 % Low - [facility] BUN/creatinine ratioOrdered By: Manny Galeana on 2025 Urea nitrogen/Creatinine [Mass ratio] 17.9 mg/mg 06-23 [facility] Basic Metabolic Profile (BMP )on 2025 BUN/CRE 17.9 RATIO Normal 06-23 [facility] Comment on above: Performed By: #### L 501.9520, L501.8100 #### [facility] [address] [place], [address] Calcium [Mass/Vol] 9.5 mg/dL Normal 7.6-11.0 [facility] Comment on above: Performed By: #### L 501.9520, L501.8100 #### [facility] [address] [place], [address] Chloride [Moles/Vol] 100 mmol/L Normal 98-108 [facility] Comment on above: Performed By: #### L 501.9520, L501.8100 #### [facility] [address] [place], [address] CO2 [Moles/Vol] 26.2 mmol/L Normal 21.0-32.0 [facility] Comment on above: Performed By: #### L 501.9520, L501.8100 #### [facility] [address] [place], [address] Creatinine [Mass/Vol] 1.22 mg/dL High 0.70-1.20 [facility] Comment on above: Performed By: #### L 501.9520, L501.8100 #### [facility] [address] [place], [address] ECRCL 50.42 ml/min Normal 50-250 [facility] Comment on above: Performed By: #### L 501.9520, L501.8100 #### [facility] [address] [place], [address] GAP 11 Normal 5-15 [facility] Comment on above: Performed By: #### L 501.9520, L501.8100 #### [facility] [address] [place], [address] GFR/1.73 sq M.predicted among non-blacks MDRD (S/P/Bld) [Vol rate/Area] 63 mL/min/{1.73_m2} Normal >60 [facility] Comment on above: Result Comment: mL/m in/1.73m2 CKD-EPI Creatinine Equation (2020) Performed By: #### L 501.9520, L501.8100 #### [facility] [address] [place], [address] Glucose [Mass/Vol] 135 mg/dL High 70-99 [facility] Comment on above: Performed By: #### L 501.9520, L501.8100 #### [facility] [address] [place], [address] Potassium [Moles/Vol] 4.4 mmol/L Normal 3.3-5.1 [facility] Comment on above: Performed By: #### L 501.9520, L501.8100 #### [facility] [address] [place], [address] Sodium [Moles/Vol] 138 mmol/L Normal 133-145 [facility] Comment on above: Performed By: #### L 501.9520, L501.8100 #### [facility] [address] [place], [place], [address] Urea nitrogen [Mass/Vol] 22 mg/dL High 4-19 [facility] Comment on above: Performed By: #### L 501.9520, L501.8100 #### [facility] [address] [place], [place], [address] Basophil percentageOrdered B y: Manny Galeana on 2025 Basophils/100 WBC (Bld) 0.2 % 0-1 [facility] Bilirubin Test strip Ql (U)O rdered By: Manny Galeana on 2025 Bilirubin Ql (U) Negative Negative [facility] Brain/Head without Contrasto n 2025 Brain/Head without Contrast [facility] Imaging Services [address] [facility] [address] [place], [place] [address] Brain/Head without Contrast MR#: [id number] Acct: [id number] Name: FRANCISCO RAMOS Rep #: [id number] : 1950 M 75 From: Robby Fay MD PCP: Dr. Ethan Avendano MD Status: REG ER Study: Brain/Head without Contrast Date of Exam: 03/05 10/29 Exam# [id number] Ordering Dr: Manny Galeana MD PROCEDURE: BRAIN/HEAD WITHOUT CONTRAST 2025 [...] IMPRESSION: No acute intracranial findings. Reading Location: [place] [address] CC: Dr. Ethan Avendano MD; Dr. Manny Galeana MD [employer] Supervisor: Signed Normal [facility] CBC W/Diff, Automatedon 07-2 -2024 Absolute Lymph 0.57 X10 3/uL Low 0.83-4.51 [facility] Comment on above: Performed By: #### L 501.9520, L501.8100 #### [facility] [address] [place], [address] Absolute Neut 4.5 X10 3/uL Normal 2.0-7.7 [facility] Comment on above: Performed By: #### L 501.9520, L501.8100 #### [facility] [address] [place], [address] Basophils/100 WBC (Bld) 0.2 % Normal 0-1 [facility] Comment on above: Performed By: #### L 501.9520, L501.8100 #### [facility] [address] [place], [address] Eosinophils/100 WBC (Bld) 0.0 % Normal 0-5 [facility] Comment on above: Performed By: #### L 501.9520, L501.8100 #### [facility] [address] [place], [address] Erythrocyte distribution width (RBC) [Ratio] 13.2 % Normal 11.6-14.6 [facility] Comment on above: Performed By: #### L 501.9520, L501.8100 #### [facility] [address] [place], [address] Hematocrit (Bld) [Volume fraction] 38.6 % Low 40-54 [facility] Comment on above: Performed By: #### L 501.9520, L501.8100 #### [facility] [address] [place], [address] Hemoglobin (Bld) [Mass/Vol] 13.2 g/dL Normal 13.0-16.5 [facility] Comment on above: Performed By: #### L 501.9520, L501.8100 #### [facility] [address] [place], [address] IG% 1.100 High 0.0-0.9 [facility] Comment on above: Result Comment: IG% - Immature Granulocytes (promyelocytes, myelocytes and metamyelocytes) > 1% indicates that a LEFT SHIFT is Present. Performed By: #### L 501.9520, L501.8100 #### [facility] [address] [place], [address] Lymphocytes/100 WBC (Bld) 10.2 % Low 19-41 [facility] Comment on above: Performed By: #### L 501.9520, L501.8100 #### [facility] [address] [place], [address] MCH (RBC) [Entitic mass] 30.9 pg Normal 27.0-32.0 [facility] Comment on above: Performed By: #### L 501.9520, L501.8100 #### [facility] [address] [place], [address] MCHC (RBC) [Mass/Vol] 34.2 g/dL Normal 32-36 [facility] Comment on above: Performed By: #### L 501.9520, L501.8100 #### [facility] [address] [place], [address] MCV (RBC) [Entitic vol] 90.4 fL Normal 80-94 [facility] Comment on above: Performed By: #### L 501.9520, L501.8100 #### [facility] [address] [place], [address] Monocytes/100 WBC (Bld) 7.5 % Normal 0-10 [facility] Comment on above: Performed By: #### L 501.9520, L501.8100 #### [facility] [address] [place], [address] Neutrophils/100 WBC (Bld) 81.0 % High 47-70 [facility] Comment on above: Performed By: #### L 501.9520, L501.8100 #### [facility] [address] [place], [address] Nucleated RBC (Bld) [#/Vol] 0 10*3/uL Normal 0-5 [facility] Comment on above: Performed By: #### L 501.9520, L501.8100 #### [facility] [address] [place], [address] Platelet mean volume (Bld) [Entitic vol] 10.0 fL Normal 6.2-12.0 [facility] Comment on above: Performed By: #### L 501.9520, L501.8100 #### [facility] [address] [place], [address] Platelets (Bld) [#/Vol] 162 10*3/uL Normal 150-450 [facility] Comment on above: Performed By: #### L 501.9520, L501.8100 #### [facility] [address] [place], [address] RBC (Bld) [#/Vol] 4.27 10*6/uL Low 4.6-6.[address] [facility] Comment on above: Performed By: #### L 501.9520, L501.8100 #### [facility] [address] [place], [address] RDW SD 43.5 fl Normal 35.1-43.9 [facility] Comment on above: Performed By: #### L 501.9520, L501.8100 #### [facility] [address] [place], [address] WBC (Bld) [#/Vol] 5.6 10*3/uL Normal 4.4-11.0 [facility] Comment on above: Performed By: #### L 501.9520, L501.8100 #### [facility] [address] [place], [place], [address] Carbon dioxide, total [Moles /volume] in Central venous bloodOrdered By: Manny Galeana on 2025 CO2 [Moles/Vol] 26.2 mmol/L 21.0-32.0 [facility] Chest 1 View (Portable)on Chest 1 View (Portable) [facility] Imaging Services [address] [place], [place] [address] Chest 1 View (Portable) MR#: [id number] Acct: [id number] Name: FRANCISCO RAMOS Rep #: [id number] : 1950 M 75 From: Leo Kelley DO PCP: Dr. Ethan Avendano MD Status: PRE ER Study: Chest 1 View (Portable) Date of Exam: 03/25/25 Exam# [id number] Ordering Dr: Manny Galeana MD PROCEDURE: CHEST 1 VIEW (PORTABLE) [...] involving the thoracic spine. EKG wires overlie the chest. RAD/Chest 1 View (Portable) IMPRESSION: No acute cardiopulmonary process identified. Reading Location: [facility] CC: Dr. Ethan Avendano MD; Dr. Manny Galeana MD [employer] Supervisor: Signed Normal [facility] Chloride assayOrdered By: Sreedhar Galeana on 2025 Chloride [Moles/Vol] 100 mmol/L 98-108 [facility] Emergency Department Summary on 2025 Emergency Department Summary [facility] Medical Records Department [address] [place] [address] Emergency Department Summary 03/25/25 MR#: [id number] Acct: [id number] Name: FRANCISCO RAMOS Rep #: [id number] : 1950 75 From: Manny Galeana MD PCP: Dr. Ethan Avendano MD Status:ADM RENATE Location: MS3 [id number] HPI HPI - Psych History of Present Illness Chief Complaint: Mental Health [facility] Medical History Tortuous colon Wears glasses Arthritis High cholesterol Easy bruising Back pain Non-smoker History of pain when walking History of echocardiogram History of stress test Cardiology follow-up encounter Parkinson disease Atherosclerosis of coronary artery of [place] heart without angina pectoris Hyperlipidemia Common variable immunodeficiency Benign prostate hyperplasia Basal cell carcinoma of left ear Home Medications ???Medication ???Instructions ???Recorded ???Last Taken ???Type multivitamin with folic acid 400 1 tab PO DAILY 06/10/13 08/22/24 H istory mcg tablet folic acid 400 mcg tablet 1 tab PO DAILY 12/24/13 08/19/24 H istory immune glob,gamma(IgG) 10 20 g .Route .[id number] 03/04/1901/25 History rzho-isl-vfxz-IgA 0 to 50 mcg/mL IV solution nitroglycerin [...] soft nontender. Moving all 4 extremities. Normal bi report developer strength. Normal dorsi plantarflexion. Nontender no edema. Neurologically patient awake alert. He is answering questions and is following commands. He is limited and seems to be a little bit confused. He is unsure of the month he thought was 2004 [...] heart sound and no murmurs Rate: tachycardic (more content not included)... Normal [facility] Eosinophil percentageOrdered By: Manny Galeana on 2025 Eosinophils/100 WBC (Bld) 0.0 % 0-5 [facility] Erythrocyte distribution wid th ratioOrdered By: Manny Galeana on 2025 Erythrocyte distribution width (RBC) [Ratio] 13.2 % 11.6-14.6 [facility] Erythrocyte distribution wid th standard deviationOrdered By: Manny Galeana on 2025 Erythrocyte distribution width (RBC) [Ratio] 43.5 fl 35.1-43.9 [facility] Glomerular filtration rate ( GFR) estimation/1.73 sq m using serum, plasma, or whole bOrdered By: Manny Galeana on 2025 GFR/1.73 sq M.predicted among non-blacks MDRD (S/P/Bld) [Vol rate/Area] 63 mL/min/{1.73_m2} >60 [facility] Comment on above: mL/min/1.73m2 CKD-EP I Creatinine Equation (2020) H AND P Exam - [facility] 2025 H&P Exam - Hospitalist [facility] Medical Records Department [address] [place] [address] H P Exam - Hospitalist 03/25/25 2252 MR#: [id number] Acct: [id number] Name: FRANCISCO RAMOS Rep #: [id number] : 1950 75 From: Lacy Johnston MD PCP: Dr. Ethan Avendano MD Status:ADM RENATE Location: MS3 [id number] HPI - General General Date of Admission: 03/25/25 Date of Service: 03/25/25 Chief Complaint: Agitation HPI Narrative The patient is a 75 y/o M w/ PMHx: Anxiety and Depression, CKD stage II per GFR trending, Parkinson disease with given presentation possibly new behavioral disturbance history, HTN, HLD, BPH with obstructive pathology status post TURP, CAD status post PCI who presents to the [facility] ED on 2025 with recent history [...] immature granulocytes and lymphopenia, BMP with BUN/canaille 25/09.22, GFR 63, glucose 135, urinalysis with specific Robley 1.010, protein 15, ketone 5, negative nitrite, negative leukocyte esterase with urine RBCs 5-10 and 1+ urine bacteria, UDS negative, ethyl alcohol less than 10.1, CT of the brain with no acute intracranial findings with evidence of previous basal ganglia infarcts with diffuse atrophy and mild white matter change, chest x-ray with no acute cardiopulmonary findings. [facility] Medical History Tortuous colon Wears glasses Arthritis High cholesterol Easy bruising Back pain Non-smoker History of pain when walking History of echocardiogram History of stress test Cardiology follow-up encounter Parkinson disease Atherosclerosis of coronary artery of [place] heart without angina pectoris Hyperlipidemia Common variable immunodeficiency Benign prostate hyperplasia Basal cell carcinoma of left ear Home Medications ???Medication ???Instructions ???Recorded ???Last Taken ???Type multivitamin with folic acid 400 1 tab PO DAILY 06/10/13 08/22/24 H istory mcg tablet folic acid 400 mcg tablet 1 tab PO DAILY 12/24/13 08/19/24 H istory immune glob,gamma(IgG) 10 20 g .Route .[id number] 03/04/19 12/01/25 History gyuy-skx-bkjk-IgA 0 to 50 mcg/mL IV solution nitroglycerin [...] 99.4 F H Temperature Source Oral Pulse R (more content not included)... Normal [facility] Hematocrit Auto (Bld) [Volum e fraction]Ordered By: Manny Galeana on 2025 Hematocrit (Bld) [Volume fraction] 38.6 % Low 40-54 [facility] Hemoglobin measurementOrdere d By: Manny Galeana on 2025 Hemoglobin (Bld) [Mass/Vol] 13.2 g/dL 13.0-16.5 [facility] Immature granulocytes/100 WB C Auto (Bld)Ordered By: Manny Galeana on 2025 Immature granulocytes/100 WBC (Bld) 1.100 % High 0.0-0.9 [facility] Comment on above: IG% - Immature Granu locytes (promyelocytes, myelocytes and metamyelocytes) > 1% indicates that a LEFT SHIFT is Present. Ketones Test strip Ql (U)Ord ered By: Manny Galeana on 2025 Ketones Ql (U) 5 mg/dl High Negative [facility] MCV (mean corpuscular volume ) determinationOrdered By: Manny Galeana on 2025 MCV (RBC) [Entitic vol] 90.4 fL 80-94 [facility] Magnesiumon 2025 Magnesium [Mass/Vol] 1.9 mg/dL Normal 1.5-2.2 [facility] Comment on above: Order Comment: Comme nts: May add to ED labs Comments: may add to ED labs Performed By: #### L 501.2300, L501.5200 #### [facility] [address] [facility] [place], [address] Magnesium measurement (mass/ volume)Ordered By: Lacy Johnston on 2025 Magnesium (Unsp spec) [Mass/Vol] 1.9 mg/dL 1.5-2.2 [facility] Mean corpuscular hemoglobin (MCH) determinationOrdered By: Manny Galeana on 2025 MCH (RBC) [Entitic mass] 30.9 pg 27.0-32.0 [facility] Mean corpuscular hemoglobin concentration (MCHC) determinationOrdered By: Manny Galeana on 2025 MCHC (RBC) [Mass/Vol] 34.2 g/dL 32-36 [facility] Mean platelet volume determi nationOrdered By: Manny Galeana on 2025 Platelet mean volume (Bld) [Entitic vol] 10.0 fL 6.2-12.0 [facility] Microscopic analysis of urin e for red blood cells (RBC)Ordered By: Manny Galeana on 2025 Microscopic analysis of urine for red blood cells (RBC) 5-10 SEEN /hpf 0-5 [facility] Monocyte percentageOrdered B y: Manny Galeana on 2025 Monocytes/100 WBC (Bld) 7.5 % 0-10 [facility] Mucus LM Ql (Urine sed)Order ed By: Manny Galeana on 2025 Mucus Ql (Urine sed) 0 SEEN /hpf [facility] Neutrophil percentageOrdered By: Manny Galeana on 2025 Neutrophils/100 WBC (Bld) 81.0 % High 47-70 [facility] Nitrite Test strip Ql (U)Ord ered By: Manny Galeana on 2025 Nitrite Ql (U) Negative Negative [facility] No Panel InformationOrdered By: Manny Galeana on 2025 Urine Buprenorphine Qualitative Negative < 200 ng/mL [facility] Urine Oxycodone Screen Negative < 100 ng/mL [facility] Nucleated red blood cell per centageOrdered By: Manny Galeana on 2025 Nucleated RBC/100 WBC (Bld) [Ratio] 0 % 0-5 [facility] Phosphoruson 2025 Phosphate [Mass/Vol] 2.0 mg/dL Low 2.7-4.5 [facility] Comment on above: Order Comment: Comme nts: May add to ED labs Comments: may add to ED labs Performed By: #### L 501.2300, L501.5200 #### [facility] [address] [place], [address] Platelet countOrdered By: Sreedhar Galeana on 2025 Platelets (Bld) [#/Vol] 162 10*3/uL 150-450 [facility] Potassium measurement (mass/ volume)Ordered By: Manny Galeana on 2025 Potassium (Unsp spec) [Mass/Vol] 4.4 mmol/L 3.3-5.1 [facility] Procalcitonin [Mass/volume] in Serum or Plasma by ImmunoassayOrdered By: Lacy Johnston on 2025 Procalcitonin IA [Mass/Vol] 0.08 ng/mL <0.11 [facility] Comment on above: Interpretation:<0.10 -0.25 ng/mL: [...] Protein Ql (U) 15 mg/dl High Negative [facility] Quantitative urine opiates m easurementOrdered By: Manny Galeana on 2025 Opiates Ql (U) Negative < 300 ng/mL [facility] RBC Auto (Bld) [#/Vol]Ordere d By: Manny Galeana on 2025 RBC (Bld) [#/Vol] 4.27 10*6/uL Low 4.6-6.[address] [facility] Screening urine fentanyl bipin surementOrdered By: Manny Galeaan on 2025 fentaNYL Screen Ql (U) Negative [facility] Serum creatinine measurement (mass/volume)Ordered By: Manny Galeana on 2025 Creatinine [Mass/Vol] 1.22 mg/dL High 0.70-1.20 [facility] Serum glucose measurement (m ass/volume)Ordered By: Manny Galeana on 2025 Glucose [Mass/Vol] 135 mg/dL High 70-99 [facility] Serum or plasma calcium john urement (mass/volume)Ordered By: Manny Galeana on 2025 Calcium [Mass/Vol] 9.5 mg/dL 7.6-11.0 [facility] Serum or plasma ethanol john urement (mass/volume)Ordered By: Manny Galeana on 2025 Ethanol [Mass/Vol] mg/dL <10.1 [facility] Comment on above: This test is for med ical purposes only. The legal definition of intoxication varies according to local law. Serum or plasma urea nitroge n measurement (mass/volume)Ordered By: Manny Galeana on 2025 Urea nitrogen [Mass/Vol] 22 mg/dL High 4-19 [facility] Sodium levelOrdered By: Manny Galeana on 2025 Sodium [Moles/Vol] 138 mmol/L 133-145 [facility] Squamous epithelial cells de tection in urine sediment by light microscopyOrdered By: Manny Galeana on 2025 Epithelial cells.squamous LM Ql (Urine sed) 0-5 SEEN /hpf 0-5 [facility] Urinalysis, Completeon 03-25 BACTERIA 1+ /hpf Normal None Seen [facility] Comment on above: Order Comment: CLEAN CATCH Performed By: #### L 501.9520, L501.8100 #### [facility] [address] [place], [address] RBC 5-10 SEEN Normal 0-5 [facility] Comment on above: Order Comment: CLEAN CATCH Performed By: #### L [id number], L501.8100 #### [facility] [address] [place], [address] WBC 0-5 SEEN Normal 0-5 [facility] Comment on above: Order Comment: CLEAN CATCH Performed By: #### L [id number], L501.8100 #### [facility] [address] [place], [address] EPI,SQUAMOUS 0-5 SEEN Normal 0-5 [facility] Comment on above: Order Comment: CLEAN CATCH Performed By: #### L [id number], L501.8100 #### [facility] [address] [place], [address] Mucus Ql (Urine sed) 0 SEEN Normal [facility] Comment on above: Order Comment: CLEAN CATCH Performed By: #### L 501.9520, L501.8100 #### [facility] [address] [place], [address] Urine Drug Screen (VISTA)on 2025 AMPHETAMINES Negative Normal <1000 ng/mL [facility] Comment on above: Performed By: #### L 501.9520, L501.8100 #### [facility] [address] [place], [address] BARBITIURATES Negative Normal < 200 ng/mL [facility] Comment on above: Performed By: #### L 501.9520, L501.8100 #### [facility] [address] [place], [address] BENZODIAZIPINE Negative Normal < 200 ng/mL [facility] Comment on above: Performed By: #### L 501.9520, L501.8100 #### [facility] [address] [place], [address] BUP Ur Drug Scr Negative Normal < 200 ng/mL [facility] Comment on above: Performed By: #### L 501.9520, L501.8100 #### [facility] [address] [place], [address] COCAINE Negative Normal < 300 ng/mL [facility] Comment on above: Performed By: #### L 501.9520, L501.8100 #### [facility] [address] [place], [address] Fentanyl Negative Normal [facility] Comment on above: Performed By: #### L 501.9520, L501.8100 #### [facility] [address] [place], [address] METHADONE Negative Normal < 300 ng/mL [facility] Comment on above: Performed By: #### L 501.9520, L501.8100 #### [facility] [address] [place], [address] OPIATES Negative Normal < 300 ng/mL [facility] Comment on above: Performed By: #### L 501.9520, L501.8100 #### [facility] [address] [place], [address] OXYCODONE Negative Normal < 100 ng/mL [facility] Comment on above: Performed By: #### L 501.9520, L501.8100 #### [facility] [address] [place], [address] PCP Negative Normal < 25 ng/mL [facility] Comment on above: Performed By: #### L 501.9520, L501.8100 #### [facility] [address] [place], [address] THC Negative Normal < 50 ng/mL [facility] Comment on above: Performed By: #### L 501.9520, L501.8100 #### [facility] [address] [place], [address] Urine benzodiazepine levelOr dered By: Manny Galeana on 2025 Benzodiazepines Ql (U) Negative < 200 ng/mL [facility] Urine clarityOrdered By: Ronnie Galeana on 2025 Clarity (U) Clear Clear [facility] Urine cocaine levelOrdered B y: Manny Galeana on 2025 Cocaine Ql (U) Negative < 300 ng/mL [facility] Urine color determinationOrd ered By: Manny Galeana on 2025 Color (U) Yellow Yellow [facility] Urine fkwxy-2-quotcaitbodjpr abinol (THC) measurementOrdered By: Manny Galeana on 2025 Cannabinoids Screen Ql (U) Negative < 50 ng/mL [facility] Urine glucose detectionOrder ed By: Manny Galeana on 2025 Glucose Ql (U) Normal mg/dl Normal [facility] Urine leukocyte esterase det ection by dipstickOrdered By: Manny Galeana on 2025 Leukocyte esterase Test strip Ql (U) Negative Negative [facility] Urine pHOrdered By: Manny bernal on 2025 pH (U) 7.0 [pH] 5.0 - 8.0 [facility] Urine phencyclidine (PCP) de tectionOrdered By: Manny Galeana on 2025 Phencyclidine Ql (U) Negative < 25 ng/mL [facility] Urine sediment bacteria coun t by microscopy (number/high power field)Ordered By: Manny Galeana on 2025 Bacteria LM.HPF (Urine sed) [#/Area] 1 /[HPF] None Seen [facility] Urine specific gravity measu rementOrdered By: Manny Galeana on 2025 Specific gravity (U) [Rel density] 1.010 1.002-1.030 [facility] Urine urobilinogen measureme ntOrdered By: Manny Galeaan on 2025 Urobilinogen Ql (U) Normal mg/dl Normal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 [address] GLOMERULAR FILTRATION RATE ML/MIN/1.73 SQ M.PREDICTED >90.0 Normal >60.0 [facility] Comment on above: Result Comment: Calc ulation based on the Chronic Kidney Disease Epidemiology Collaboration (CKD-EPI) equation refit without adjustment for race Performed By: #### L AB15 ####Home Coordinator: JAZLYN BRUCE ([id number])[facility] ([facility])[address] [place] [address] Glucose [Mass/Vol] 149 mg/dL High 82-115 [facility] Comment on above: Performed By: #### L AB15 ####Home Coordinator: JAZLYN BRUCE ([id number])[facility])[address] [place] [address] Potassium [Moles/Vol] 4.0 mmol/L Normal 3.5-5.[address] [facility] Comment on above: Result Comment: [facility] potassium values may be up to 0.5 mmol/L lower than serum values. Performed By: #### L AB15 ####Home Coordinator: JAZLYN BRUCE ([id number])[facility] ([facility])[address] [place] [address] Sodium [Moles/Vol] 135 mmol/L Low 136-145 [facility] Comment on above: Performed By: #### L AB15 ####Home Coordinator: JAZLYN BRUCE ([id number])[facility])[address] [place] [address] Urea nitrogen [Mass/Vol] 13 mg/dL Normal 9-23 [facility] Comment on above: Performed By: #### L AB15 ####Home Coordinator: JAZLYN BRUCE ([phone])[facility])[address] [place] [address] Basic metabolic 1998 panelon 03-19-2025 Anion gap [Moles/Vol] 13 mmol/L 3 - 13 mmol/L [facility] Calcium [Mass/Vol] 8.2 mg/dL Low 8.8 - 10. 0 mg/dL [facility] Chloride [Moles/Vol] 106 mmol/L 98 - 10 7 mmol/L [facility] CO2 [Moles/Vol] 16 mmol/L Low 23 - 31 mmol/L [facility] Creatinine [Mass/Vol] 0.73 mg/dL 0.72 - 1.25 mg/dL [facility] GFR/1.73 sq M.predicted (S/P/Bld) [Vol rate/Area] - PINF [facility] Comment on above: Calculation based on the Chronic Kidney Disease Epidemiology Collaboration (CKD-EPI) equation refit without adjustment for race Glucose [Mass/Vol] 149 mg/dL High 82 - 115 mg/dL [facility] Interpretation and review of laboratory results Abnormal [facility] Potassium [Moles/Vol] 4 mmol/L 3.5 - 5.1 mmol/L [facility] Comment on above: Plasma potassium damon ues may be up to 0.5 mmol/L lower than serum values. Sodium [Moles/Vol] 135 mmol/L Low 136 - 145 mmol/L [facility] Urea nitrogen [Mass/Vol] 13 mg/dL 9 - 23 mg/d L [facility] CBC W Auto Differential pane l (Bld)Ordered By: Lacy Power on 03-19-2025 Erythrocyte distribution width (RBC) [Ratio] 12.5 % 11.5 - 15.0 % [facility] Hematocrit (Bld) [Volume fraction] 37.6 % Low 40.0 - 52.0 % [facility] Hemoglobin (Bld) [Mass/Vol] 13.1 g/dL 13.0 - 18.0 g/dL [facility] Interpretation and review of laboratory results Abnormal [facility] [employer] IPF 3 [facility] MCH (RBC) [Entitic mass] 30.6 pg 26. 0 - 34.0 pg [facility] MCHC (RBC) [Mass/Vol] 34.8 % 30.5 - 36.0 % [facility] MCV (RBC) [Entitic vol] 87.9 fL 77.0 - 99.0 fL [facility] Platelet mean volume (Bld) [Entitic vol] 10.8 fL 9.0 - 12.7 fL [facility] Platelets (Bld) [#/Vol] 117 10*3/uL Low 140 - 440 10*3/uL [facility] RBC (Bld) [#/Vol] 4.28 10*6/uL Low 4.40 - 5.9 0 10*6/uL [facility] WBC (Bld) [#/Vol] 6.3 10*3/uL 3.6 - 10.7 10*3/uL [facility] CBC WITH AUTO DIFFERENTIALon 03-19-2025 Erythrocyte distribution width (RBC) [Ratio] 12.5 % Normal 11.5-15.0 [facility] Comment on above: Performed By: #### Ricardo [id number], [id number] ####Home Coordinator: JAZLYN BRUCE ([id number])[facility])[address] [place] [address] Hematocrit (Bld) [Volume fraction] 37.6 % Low 40.0-52.0 [facility] Comment on above: Performed By: #### Ricardo LUTHER, [id number] ####Home Coordinator: JAZLYN BRUCE ([id number])[facility])[address] [place] [address] Hemoglobin (Bld) [Mass/Vol] 13.1 g/dL Normal 13.0-18.0 [facility] Comment on above: Performed By: #### Ricardo LUTHER, [id number] ####Home Coordinator: JAZLYN BRUCE ([phone])[facility])[address] [place] [address] IPF 3 Normal [facility] Comment on above: Performed By: #### Ricardo [id number], [id number] ####Home Coordinator: JAZLYN BRUCE ([phone])[facility])[address] [place] [address] MCH (RBC) [Entitic mass] 30.6 pg Normal 26.0-34.0 [facility] Comment on above: Performed By: #### L [id number], [id number] ####Home Coordinator: JAZLYN BRUCE ([phone])[facility])[address] [place] [address] MCHC 34.8 % Normal 30.5-36.0 [facility] Comment on above: Performed By: #### L [id number], [id number] ####Home Coordinator: JAZLYN BRUCE ([phone])[facility])[address] [place] [address] MCV (RBC) [Entitic vol] 87.9 fL Normal 77.0-99.0 [facility] Comment on above: Performed By: #### L [id number], [id number] ####Home Coordinator: JAZLYN BRUCE ([phone])[facility])[address] [place] [address] Platelet mean volume (Bld) [Entitic vol] 10.8 fL Normal 9.0-12.7 [facility] Comment on above: Performed By: #### L [id number], [id number] ####Home Coordinator: JAZLYN BRUCE ([phone])[facility])[address] [place] [address] Platelets (Bld) [#/Vol] 117 10*3/uL Low 140-440 [facility] Comment on above: Performed By: #### Ricardo [id number], [id number] ####Home Coordinator: JAZLYN BRUCE ([phone])[facility])[address] [place] [address] RBC (Bld) [#/Vol] 4.28 10*6/uL Low 4.40-5.90 [facility] Comment on above: Performed By: #### L [id number], [id number] ####Home Coordinator: JAZLYN BRUCE ([id number])[facility])[address] [place] [address] WBC (Bld) [#/Vol] 6.3 10*3/uL Normal 3.6-10.7 [facility] Comment on above: Performed By: #### L [id number], [id number] ####Home Coordinator: JAZLYN BRUCE ([phone])[facility])[address] [place] [address] Laboratory - Hematology and Cell countson 03-19-2025 Band form neutrophils (Bld) [#/Vol] 0.4 10*3/uL High NINF - 0.0 10*3/uL [facility] Band form neutrophils/100 WBC (Bld) 6 % High NINF - 0 % [facility] Millen cells LM Ql (Bld) Slight Abnormal (none) [facility] Lymphocytes (Bld) [#/Vol] 0.1 10*3/uL Low 1.0 - 4.3 10*3/uL [facility] Lymphocytes/100 WBC (Bld) 1 % Low 15 - 45 % [facility] Monocytes (Bld) [#/Vol] 0.1 10*3/uL 0.0 - 0.9 10*3/uL [facility] Monocytes/100 WBC (Bld) 2 % Low 5 - 13 % [facility] Neutrophils (Bld) [#/Vol] 6 10*3/uL 1.8 - 7.5 10*3/uL [facility] Ovalocytes LM Ql (Bld) Slight Abnormal (none) [facility] Poikilocytosis LM Ql (Bld) Slight Abnormal (none) [facility] RBC morphology finding Nom (Bld) abnormal [facility] Segmented neutrophils/100 WBC (Bld) 90 % High 38 - 82 % [facility] Variant lymphocytes (Bld) [#/Vol] 0.1 10*3/uL High NINF - 0.0 10*3/uL [facility] Variant lymphocytes/100 WBC (Bld) 1 % High NINF - 0 % [facility] MANUAL DIFFERENTIAL (CELLAVI LUCAS)on 03-19-2025 BAND NEUTROPHILS TOTAL PER COUNTED LEUKOCYTES BY MANUAL COUNT 6 Normal [facility] Comment on above: Performed By: #### L [id number], [id number] ####Home Coordinator: JAZLYN BRUCE ([phone])[facility])[address] [place] [address] BANDS (10*3/UL) IN BLOOD-CELLAVISION 0.4 10*3/uL High <=0.0 [facility] Comment on above: Performed By: #### L [id number], [id number] ####Home Coordinator: JAZLYN BRUCE ([phone])[facility] ([facility])[address] [place] [address] [place] BASOPHILS TOTAL PER COUNTED LEUKOCYTES BY MANUAL COUNT Normal [facility] Comment on above: Performed By: #### L [id number], [id number] ####Home Coordinator: JAZLYN BRUCE ([phone])[facility] ([facility])[address] [place] [address] BLASTS TOTAL PER COUNTED LEUKOCYTES BY MANUAL COUNT Normal [facility] Comment on above: Performed By: #### L [id number], [id number] ####Home Coordinator: JAZLYN BRUCE ([phone])[facility] ([facility])[address] [place] [address] DARNELL CELLS PRESENCE IN BLOOD BY LIGHT MICROSCOPY Slight Abnormal (none) [facility] Comment on above: Performed By: #### L [id number], [id number] ####Home Coordinator: JAZLYN BRUCE ([id number])[facility] ([facility])[address] [place] [address] EOSINOPHILS TOTAL PER COUNTED LEUKOCYTES BY MANUAL COUNT Normal [facility] Comment on above: Performed By: #### Ricardo [id number], [id number] ####Home Coordinator: JAZLYN BRUCE ([phone])[facility])[address] [place] [address] [place] LYMPHOCYTE VARIANT/100 LEUKOCYTES IN BLOOD- CELLAVISION 1 % High <=0 [facility] Comment on above: Performed By: #### L [id number], [id number] ####Home Coordinator: JAZLYN BRUCE ([id number])[facility])[address] [place] [address] [place] LYMPHOCYTES (10*3/UL) IN BLOOD-CELLAVISION 0.1 10*3/uL Low 1.0-4.3 [facility] Comment on above: Performed By: #### L [id number], [id number] ####Home Coordinator: JAZLYN BRUCE ([id number])[facility] ([facility])[address] [place] [address] [place] LYMPHOCYTES TOTAL PER COUNTED LEUKOCYTES BY MANUAL COUNT 1 Normal [facility] Comment on above: Performed By: #### L [id number], [id number] ####Home Coordinator: JAZLYN BRUCE ([phone])[facility] ([facility])[address] [place] [address] LYMPHOCYTES/100 LEUKOCYTES IN BLOOD-CELLAVISION 1 % Low 15-45 [facility] Comment on above: Performed By: #### L [id number], [id number] ####Home Coordinator: JAZLYN BRUCE ([id number])[facility] ([facility])[address] [place] [address] METAMYELOCYTES TOTAL PER COUNTED LEUKOCYTES BY MANUAL COUNT Normal [facility] Comment on above: Performed By: #### L [id number], [id number] ####Home Coordinator: JAZLYN BRUCE ([phone])[facility] ([facility])[address] [place] [address] MONOCYTES (10*3/UL) IN BLOOD-CELLAVISION 0.1 10*3/uL Normal 0.0-0.9 [facility] Comment on above: Performed By: #### L [id number], [id number] ####Home Coordinator: JAZLYN BRUCE ([phone])[facility] ([facility])[address] [place] [address] [place] MONOCYTES TOTAL PER COUNTED LEUKOCYTES BY MANUAL COUNT 2 Normal [facility] Comment on above: Performed By: #### L [id number], [id number] ####Home Coordinator: JAZLYN BRUCE ([id number])[facility] ([facility])[address] [place] [address] [place] MONOCYTES/100 LEUKOCYTES IN BLOOD-KATIE 2 % Low 5-13 [facility] Comment on above: Performed By: #### L [id number], [id number] ####Home Coordinator: JAZLYN BRUCE ([phone])[facility])[address] [place] [address] MYELOCYTES COUNTED BY MANUAL COUNT Normal [facility] Comment on above: Performed By: #### L [id number], [id number] ####Home Coordinator: JAZLYN BRUCE ([phone])[facility] ([facility])[address] [place] [address] [place] NEUTROPHILS BAND FORM/100 LEUKOCYTES IN BLOOD-CELLAVISI 6 % High <=0 [facility] Comment on above: Performed By: #### L [id number], [id number] ####Home Coordinator: JAZLYN BRUCE ([phone])[facility] [place] [address] [place] NEUTROPHILS TOTAL PER COUNTED LEUKOCYTES BY MANUAL COUNT 94 Normal [facility] Comment on above: Performed By: #### L [id number], [id number] ####Home Coordinator: JAZLYN BRUCE ([phone])[facility] ([facility])[address] [place] [address] OVALOCYTES PRESENCE IN BLOOD BY LIGHT MICROSCOPY Slight Abnormal (none) [facility] Comment on above: Performed By: #### L [id number], [id number] ####Home Coordinator: JAZLYN BRUCE ([phone])[facility] [place] [address] [place] POIKILOCYTOSIS (PRESENCE) IN BLOOD BY LIGHT MICROSCOPY Slight Abnormal (none) [facility] Comment on above: Performed By: #### L [id number], [id number] ####Home Coordinator: JAZLYN BRUCE ([phone])[facility] ([facility])[address] [place] [address] PROMYELOCYTES TOTAL PER COUNTED LEUKOCYTES BY MANUAL COUNT Normal [facility] Comment on above: Performed By: #### L [id number], [id number] ####Home Coordinator: JAZLYN BRUCE ([id number])[facility] ([facility])[address] [place] [address] [place] RBC MORPHOLOGY IN BLOOD abnormal Normal [facility] Comment on above: Performed By: #### L [id number], [id number] ####Home Coordinator: JAZLYN BRUCE ([id number])[facility] [place] [address] [place] SEGMENTED NEUTROPHILS (10*3/UL) IN BLOOD-CELLAVISION 6.0 10*3/uL Normal 1.8-7.5 [facility] Comment on above: Performed By: #### L [id number], [id number] ####Home Coordinator: JAZLYN BRUCE ([id number])[facility])[address] [place] [address] SEGMENTED NEUTROPHILS/100 LEUKOCYTES-CE 90 % High 38-82 [facility] Comment on above: Performed By: #### L [id number], [id number] ####Home Coordinator: JAZLYN BRUCE ([id number])[facility] ([facility])[address] [place] [address] UNCLASSIFIED CELLS TOTAL PER COUNTED LEUKOCYTES BY MANUAL COUNT Normal [facility] Comment on above: Performed By: #### L [id number], [id number] ####Home Coordinator: JAZLYN BRUCE ([phone])[facility])[address] [place] [address] VARIANT LYMPHOCYTES (10*3/UL) IN BLOOD-CELLAVISION 0.1 10*3/uL High <=0.0 [facility] Comment on above: Performed By: #### L [id number], [id number] ####Home Coordinator: JAZLYN BRUCE ([phone])[facility])[address] [place] [address] VARIANT LYMPHOCYTES TOTAL PER COUNTED LEUKOCYTES BY MANUAL COUNT 1 Normal [facility] Comment on above: Performed By: #### L [id number], [id number] ####Home Coordinator: JAZLYN BRUCE ([phone])[facility])[address] [place] [address] No Panel Informationon 03-19 Atypical Lymphocytes Manual 1 [facility] Bands Manual 6 [facility] Basophils Manual [facility] Blasts Manual [facility] Eosinophils Manual [facility] Interpretation and review of laboratory results Abnormal [facility] Lymphocytes Manual 1 [facility] Metamyelocytes Manual [facility] Monocytes Manual 2 [facility] Myelocytes Manual [facility] Neutrophils Manual 94 [facility] Promyelocytes Manual [facility] Unclassified Cells, Manual [facility] Nursing Noteon 03-19-2025 Nursing Note [...] not allowed to leave. Normal [facility] Progress Noteon 03-19-2025 Progress Note PHYSICAL THERAPY [facility] Treatment Note Name/MRN: Francisco Ramos ([id number]) Date of : 1950 Age: 74 y.o. [facility] Discharge Recommendation: 24 hour supervision [...] reach, left in bed, gait belt, and district sales manager present Restraints: No Education Gait, transfers, balance [...] 32 Minutes (gait, FA) Olivia Noriega PTA [facility] Progress Note OCCUPATIONAL THERAPY [facility] Treatment Note Name/MRN: Francisco Ramos ([id number]) Date of : 1950 Age: 74 y.o. Room/Bed: 6116/6116 A Discharge Recommendation: 24 hour supervision or [...] notified, no alarms engaged upon entry, and district sales manager present Restraints: No Education Education Given To: [...] retrieval) 1 FA, 1 Self YASHIRA Durant [facility] [id number] 03-18-2025 [id number] Spoke with [facility] regarding pt combative behavior with staff and PT recs for HHC, but will wait to discuss possible home care services with pt/family until closer to de. [employer] Supervisor following case for Discharge Needs. Normal [facility] BASIC METABOLIC PANELon 07- Anion gap [Moles/Vol] 7 mmol/L Normal 3-13 [facility] Comment on above: Performed By: #### L AB15 ####Home Coordinator: JAZLYN BRUCE ([phone])[facility])[address] [place] [address] Calcium [Mass/Vol] 8.6 mg/dL Low 8.8-10.0 [facility] Comment on above: Performed By: #### L AB15 ####Home Coordinator: JAZLYN BRUCE ([phone])[facility] ([facility])[address] [place] [address] Chloride [Moles/Vol] 106 mmol/L Normal 98-107 [facility] Comment on above: Performed By: #### L AB15 ####Home Coordinator: JAZLYN BRUCE ([id number])[facility] ([facility])[address] [place] [address] CO2 [Moles/Vol] 24 mmol/L Normal 23-31 [facility] Comment on above: Performed By: #### L AB15 ####Home Coordinator: JAZLYN BRUCE ([phone])[facility])[address] [place] [address] Creatinine [Mass/Vol] 0.75 mg/dL Normal 0.72-1.25 [facility] Comment on above: Performed By: #### L AB15 ####Home Coordinator: JAZLYN BRUCE ([phone])[facility])[address] [place] [address] GLOMERULAR FILTRATION RATE ML/MIN/1.73 SQ M.PREDICTED >90.0 Normal >60.0 [facility] Comment on above: Result Comment: Calc ulation based on the Chronic Kidney Disease Epidemiology Collaboration (CKD-EPI) equation refit without adjustment for race Performed By: #### L AB15 ####Home Coordinator: JAZLYN BRUCE ([phone])[facility] ([facility])[address] [place] [address] Glucose [Mass/Vol] 78 mg/dL Low 82-115 [facility] Comment on above: Performed By: #### L AB15 ####Home Coordinator: JAZLYN BRUCE ([id number])[facility])[address] [place] [address] Potassium [Moles/Vol] 3.6 mmol/L Normal 3.5-5.[address] [facility] Comment on above: Result Comment: [facility] potassium values may be up to 0.5 mmol/L lower than serum values. Performed By: #### L AB15 ####Home Coordinator: JAZLYN BRUCE ([phone])[facility] ([facility])[address] [place] [address] Sodium [Moles/Vol] 137 mmol/L Normal 136-145 [facility] Comment on above: Performed By: #### L AB15 ####Home Coordinator: JAZLYN BRUCE ([phone])[facility] ([facility])[address] [place] [address] Urea nitrogen [Mass/Vol] 9 mg/dL Normal 9-23 [facility] Comment on above: Performed By: #### L AB15 ####Home Coordinator: JAZLYN BRUCE ([phone])[facility])[address] [place] [address] Basic metabolic 1998 panelon 03-18-2025 Anion gap [Moles/Vol] 7 mmol/L 3 - 13 mmol/L [facility] Calcium [Mass/Vol] 8.6 mg/dL Low 8.8 - 10. 0 mg/dL [facility] Chloride [Moles/Vol] 106 mmol/L 98 - 10 7 mmol/L [facility] CO2 [Moles/Vol] 24 mmol/L 23 - 31 mmol/L [facility] Creatinine [Mass/Vol] 0.75 mg/dL 0.72 - 1.25 mg/dL [facility] GFR/1.73 sq M.predicted (S/P/Bld) [Vol rate/Area] - PINF [facility] Comment on above: Calculation based on the Chronic Kidney Disease Epidemiology Collaboration (CKD-EPI) equation refit without adjustment for race Glucose [Mass/Vol] 78 mg/dL Low 82 - 115 mg/dL [facility] Interpretation and review of laboratory results Abnormal [facility] Potassium [Moles/Vol] 3.6 mmol/L 3.5 - 5.1 mmol/L [facility] Comment on above: Plasma potassium damon ues may be up to 0.5 mmol/L lower than serum values. Sodium [Moles/Vol] 137 mmol/L 136 - 145 mmol/L [facility] [employer] Urea nitrogen [Mass/Vol] 9 mg/dL 9 - 23 mg/d L [facility] CBC W Auto Differential pane l (Bld)on 03-18-2025 Basophils (Bld) [#/Vol] 0 10*3/uL 0.0 - 0.2 10*3/uL [facility] Basophils/100 WBC (Bld) 0 % 0.0 - 2.0 % [facility] Eosinophils (Bld) [#/Vol] 0 10*3/uL 0.0 - 0.5 10*3/uL [facility] Eosinophils/100 WBC (Bld) 0 % 0.0 - 6.0 % [facility] Erythrocyte distribution width (RBC) [Ratio] 12.8 % 11.5 - 15.0 % [facility] Hematocrit (Bld) [Volume fraction] 40.2 % 40.0 - 52.0 % [facility] Hemoglobin (Bld) [Mass/Vol] 13.9 g/dL 13.0 - 18.0 g/dL [facility] Immature granulocytes (Bld) [#/Vol] 0 10*3/uL NINF - 0.1 10*3/uL [facility] Immature granulocytes/100 WBC (Bld) 0.4 % 0.0 - 2.0 % [facility] Interpretation and review of laboratory results Abnormal [facility] [employer] IPF 4 [facility] Lymphocytes (Bld) [#/Vol] 1 10*3/uL 1.0 - 4.3 10*3/uL [facility] Lymphocytes/100 WBC (Bld) 21 % 15.0 - 45.0 % [facility] MCH (RBC) [Entitic mass] 30.8 pg 26. 0 - 34.0 pg [facility] MCHC (RBC) [Mass/Vol] 34.6 % 30.5 - 36.0 % [facility] MCV (RBC) [Entitic vol] 88.9 fL 77.0 - 99.0 fL [facility] Monocytes (Bld) [#/Vol] 0.5 10*3/uL 0.0 - 0.9 10*3/uL [facility] Monocytes/100 WBC (Bld) 10 % 5.0 - 13.0 % [facility] Neutrophils (Bld) [#/Vol] 3.2 10*3/uL 1.8 - 7.5 10*3/uL [facility] Neutrophils/100 WBC (Bld) 68.6 % 38.0 - 82.0 % [facility] Nucleated RBC/100 WBC (Bld) [Ratio] 0 % [facility] Platelet mean volume (Bld) [Entitic vol] 10.7 fL 9.0 - 12.7 fL [facility] Platelets (Bld) [#/Vol] 127 10*3/uL Low 140 - 440 10*3/uL [facility] RBC (Bld) [#/Vol] 4.52 10*6/uL 4.40 - 5.9 0 10*6/uL [facility] WBC (Bld) [#/Vol] 4.6 10*3/uL 3.6 - 10.7 10*3/uL [facility] CBC WITH AUTO DIFFERENTIALon 03-18-2025 Basophils (Bld) [#/Vol] 0.0 10*3/uL Normal 0.0-0.2 [facility] Comment on above: Performed By: #### L [id number] ####Home Coordinator: JAZLYN BRUCE ([phone])[facility] ([facility])[address] [place] [address] Basophils/100 WBC (Bld) 0.0 % Normal 0.0-2.0 [facility] Comment on above: Performed By: #### L [id number] ####Home Coordinator: JAZLYN BRUCE ([id number])[facility] ([facility])[address] [place] [address] Eosinophils (Bld) [#/Vol] 0.0 10*3/uL Normal 0.0-0.5 [facility] Comment on above: Performed By: #### L [id number] ####Home Coordinator: JAZLYN BRUCE ([phone])[address] Eosinophils/100 WBC (Bld) 0.0 % Normal 0.0-6.0 [facility] Comment on above: Performed By: #### L [id number] ####Home Coordinator: JAZLYN BRUCE ([id number])[facility])[address] [place] [address] Erythrocyte distribution width (RBC) [Ratio] 12.8 % Normal 11.5-15.0 [facility] Comment on above: Performed By: #### L [id number] ####Home Coordinator: JAZLYN BRUCE ([id number])[address] Hematocrit (Bld) [Volume fraction] 40.2 % Normal 40.0-52.0 [facility] Comment on above: Performed By: #### L [id number] ####Home Coordinator: JAZLYN BRUCE ([phone])[address] Hemoglobin (Bld) [Mass/Vol] 13.9 g/dL Normal 13.0-18.0 [facility] Comment on above: Performed By: #### L [id number] ####Home Coordinator: JAZLYN BRUCE ([phone])[address] IMMATURE GRANS % 0.4 % Normal 0.0-2.0 [facility] Comment on above: Performed By: #### L [id number] ####Home Coordinator: JAZLYN BRUCE ([phone])[address] IMMATURE GRANS ABSOLUTE 0.0 10*3/uL Normal <0.1 [facility] Comment on above: Performed By: #### L [id number] ####Home Coordinator: JAZLYN BRUCE ([phone])[facility] ([facility])[address] [place] [address] [place] IPF 4 Normal [facility] Comment on above: Performed By: #### L [id number] ####Home Coordinator: JAZLYN BRUCE ([phone])[facility])[address] [place] [address] Lymphocytes (Bld) [#/Vol] 1.0 10*3/uL Normal 1.0-4.3 [facility] Comment on above: Performed By: #### L [id number] ####Home Coordinator: JAZLYN BRUCE ([phone])[facility])[address] [place] [address] Lymphocytes/100 WBC (Bld) 21.0 % Normal 15.0-45.0 [facility] Comment on above: Performed By: #### L [id number] ####Home Coordinator: JAZLYN BRUCE ([id number])[facility] ([facility])[address] [place] [address] MCH (RBC) [Entitic mass] 30.8 pg Normal 26.0-34.0 [facility] Comment on above: Performed By: #### L [id number] ####Home Coordinator: JAZLYN BRUCE ([id number])[facility])[address] [place] [address] MCHC 34.6 % Normal 30.5-36.0 [facility] Comment on above: Performed By: #### L [id number] ####Home Coordinator: JAZLYN BRUCE ([id number])[facility] ([facility])[address] [place] [address] MCV (RBC) [Entitic vol] 88.9 fL Normal 77.0-99.0 [facility] Comment on above: Performed By: #### L [id number] ####Home Coordinator: JAZLYN BRUCE ([id number])[facility])[address] [place] [address] [place] Monocytes (Bld) [#/Vol] 0.5 10*3/uL Normal 0.0-0.9 [facility] Comment on above: Performed By: #### L [id number] ####Home Coordinator: JAZLYN BRUCE ([id number])[facility] ([facility])[address] [place] [address] Monocytes/100 WBC (Bld) 10.0 % Normal 5.0-13.0 [facility] [facility] Comment on above: Performed By: #### L [id number] ####Home Coordinator: JAZLYN BRUCE ([phone])[facility] ([facility])[address] [place] [address] NEUTROPHILS ABSOLUTE 3.2 10*3/uL Normal 1.8-7.5 [facility] Comment on above: Performed By: #### L [id number] ####Home Coordinator: JAZLYN BRUCE ([phone])[facility] ([facility])[address] [place] [address] Neutrophils/100 WBC (Bld) 68.6 % Normal 38.0-82.0 [facility] Comment on above: Performed By: #### L [id number] ####Home Coordinator: JAZLYN BRUCE ([phone])[facility] ([facility])[address] [place] [address] NRBC 0.0 /100 WBCs Normal 0.0-2.0 [facility] Comment on above: Performed By: #### L [id number] ####Home Coordinator: JAZLYN BRUCE ([phone])[facility] ([facility])[address] [place] [address] Platelet mean volume (Bld) [Entitic vol] 10.7 fL Normal 9.0-12.7 [facility] Comment on above: Performed By: #### L [id number] ####Home Coordinator: JAZLYN BRUCE ([phone])[facility] ([facility])[address] [place] [address] Platelets (Bld) [#/Vol] 127 10*3/uL Low 140-440 [facility] Comment on above: Performed By: #### L [id number] ####Home Coordinator: JAZLYN BRUCE ([phone])[facility])[address] [place] [address] RBC (Bld) [#/Vol] 4.52 10*6/uL Normal 4.40-5.90 [facility] Comment on above: Performed By: #### L [id number] ####Home Coordinator: JAZLYN BRUCE ([phone])[facility])[address] [place] [address] WBC (Bld) [#/Vol] 4.6 10*3/uL Normal 3.6-10.7 [facility] Comment on above: Performed By: #### L [id number] ####Home Coordinator: JAZLYN BRUCE ([phone])[facility])[address] [place] [address] Nursing Noteon 03-18-2025 Nursing Note Report called to H6 NUrse [facility] Nursing Note Called and updated pt at this time [facility] Nursing Note Verified with patients that pt. Had jello and lemon ice yesterday for lunch. [facility] Op Noteon 03-18-2025 Op Note Date: 03/18/2025 Location: [facility] OR Name: Francisco Ramos, : [...] Tissue TISSUE EXAM Bronson Jarrett MD 03/18/25 8902 Routine Description: SIGMOID COLON Staff: Spine Specialist: Joseph Ibarra RN; Nika Schuster RN Relief Spine Specialist: Gini Awan RN; Cecilia Tinajero Relief Scrub: [...] (two hours if receiving Vancomycin or flouroquinolone) [facility] Op Note OPERATIVE NOTE PATIENT NAME: Francisco Ramos : 1950 ATTENDING PHYSICIAN: Bronson Jarrett MD PROCEDURE DATE: 03/18/2025 PREOPERATIVE DIAGNOSIS: Sigmoid volvulus POSTOPERATIVE DIAGNOSIS: Same SURGEON: Bronson Jarrett MD SUPERVISOR DRY CLEANING: Yasmin Barry OPERATION: Laparoscopic sigmoid colectomy ANESTHESIA: [...] was opened up. We then created our [place] rectal anastomosis. We had to complete anastomotic [...] transferred to the PACU in stable condition. [facility] Progress Noteon 03-18-2025 Progress Note Nutrition rescreen completed. Patient is NPO/Clear liquid >3 days. Refer to Dietitian. [facility] BASIC METABOLIC PANELon 07- Anion gap [Moles/Vol] 8 mmol/L Normal 3-13 [facility] Comment on above: Performed By: #### L [id number] ####Home Coordinator: JAZLYN BRUCE ([phone])[facility] ([facility])[address] [place] [address] Calcium [Mass/Vol] 8.8 mg/dL Normal 8.8-10.0 [facility] Comment on above: Performed By: #### L [id number] ####Home Coordinator: JAZLYN BRUCE ([phone])[facility] [place] [address] Chloride [Moles/Vol] 107 mmol/L Normal 98-107 [facility] Comment on above: Performed By: #### L [id number] ####Home Coordinator: JAZLYN BRUCE ([phone])[facility] [place] [address] CO2 [Moles/Vol] 22 mmol/L Low 23-31 [facility] Comment on above: Performed By: #### L [id number] ####Home Coordinator: JAZLYN BRUCE ([phone])[facility] ([facility])[address] [place] [address] Creatinine [Mass/Vol] 0.76 mg/dL Normal 0.72-1.25 [facility] Comment on above: Performed By: #### L [id number] ####Home Coordinator: JAZLYN BRUCE ([phone])[facility] ([facility])[address] [place] [address] GLOMERULAR FILTRATION RATE ML/MIN/1.73 SQ M.PREDICTED >90.0 Normal >60.0 [facility] Comment on above: Result Comment: Calc ulation based on the Chronic Kidney Disease Epidemiology Collaboration (CKD-EPI) equation refit without adjustment for race Performed By: #### L [id number] ####Home Coordinator: JAZLYN BRUCE ([phone])[facility] ([facility])[address] [place] [address] Glucose [Mass/Vol] 87 mg/dL Normal 82-115 [facility] Comment on above: Performed By: #### L [id number] ####Home Coordinator: JAZLYN BRUCE ([phone])[facility])[address] [place] [address] Potassium [Moles/Vol] 3.8 mmol/L Normal 3.5-5.[address] [facility] Comment on above: Result Comment: [facility] potassium values may be up to 0.5 mmol/L lower than serum values. Performed By: #### L [id number] ####Home Coordinator: JAZLYN BRUCE ([phone])[facility] ([facility])[address] [place] [address] Sodium [Moles/Vol] 137 mmol/L Normal 136-145 [facility] Comment on above: Performed By: #### L [id number] ####Home Coordinator: JAZLYN BRUCE ([phone])[facility] ([facility])[address] [place] [address] Urea nitrogen [Mass/Vol] 13 mg/dL Normal 9-23 [facility] Comment on above: Performed By: #### L [id number] ####Home Coordinator: JAZLYN BRUCE ([phone])[facility])[address] [place] [address] Basic metabolic 1998 panelon 03-17-2025 Anion gap [Moles/Vol] 8 mmol/L 3 - 13 mmol/L [facility] Calcium [Mass/Vol] 8.8 mg/dL 8.8 - 10. 0 mg/dL [facility] Chloride [Moles/Vol] 107 mmol/L 98 - 10 7 mmol/L [facility] CO2 [Moles/Vol] 22 mmol/L Low 23 - 31 mmol/L [facility] Creatinine [Mass/Vol] 0.76 mg/dL 0.72 - 1.25 mg/dL [facility] GFR/1.73 sq M.predicted (S/P/Bld) [Vol rate/Area] - PINF [facility] Comment on above: Calculation based on the Chronic Kidney Disease Epidemiology Collaboration (CKD-EPI) equation refit without adjustment for race Glucose [Mass/Vol] 87 mg/dL 82 - 115 mg/dL [facility] Interpretation and review of laboratory results Abnormal [facility] Potassium [Moles/Vol] 3.8 mmol/L 3.5 - 5.1 mmol/L [facility] Comment on above: Plasma potassium damon ues may be up to 0.5 mmol/L lower than serum values. Sodium [Moles/Vol] 137 mmol/L 136 - 145 mmol/L [facility] Urea nitrogen [Mass/Vol] 13 mg/dL 9 - 23 mg/d L [facility] CBC W Auto Differential pane l (Bld)on 03-17-2025 Basophils (Bld) [#/Vol] 0 10*3/uL 0.0 - 0.2 10*3/uL [facility] Basophils/100 WBC (Bld) 0.2 % 0.0 - 2.0 % [facility] Eosinophils (Bld) [#/Vol] 0 10*3/uL 0.0 - 0.5 10*3/uL [facility] Eosinophils/100 WBC (Bld) 0 % 0.0 - 6.0 % [facility] Erythrocyte distribution width (RBC) [Ratio] 12.8 % 11.5 - 15.0 % [facility] Hematocrit (Bld) [Volume fraction] 42.1 % 40.0 - 52.0 % [facility] Hemoglobin (Bld) [Mass/Vol] 14.3 g/dL 13.0 - 18.0 g/dL [facility] Immature granulocytes (Bld) [#/Vol] 0 10*3/uL NINF - 0.1 10*3/uL [facility] Immature granulocytes/100 WBC (Bld) 0.2 % 0.0 - 2.0 % [facility] Interpretation and review of laboratory results Abnormal [facility] IPF 4 [facility] Lymphocytes (Bld) [#/Vol] 0.7 10*3/uL Low 1.0 - 4.3 10*3/uL [facility] Lymphocytes/100 WBC (Bld) 12.7 % Low 15.0 - 45.0 % [facility] MCH (RBC) [Entitic mass] 31 pg 26. 0 - 34.0 pg [facility] MCHC (RBC) [Mass/Vol] 34 % 30.5 - 36.0 % [facility] MCV (RBC) [Entitic vol] 91.3 fL 77.0 - 99.0 fL [facility] Monocytes (Bld) [#/Vol] 0.7 10*3/uL 0.0 - 0.9 10*3/uL [facility] Monocytes/100 WBC (Bld) 13 % 5.0 - 13.0 % [facility] Neutrophils (Bld) [#/Vol] 4.1 10*3/uL 1.8 - 7.5 10*3/uL [facility] Neutrophils/100 WBC (Bld) 73.9 % 38.0 - 82.0 % [facility] Nucleated RBC/100 WBC (Bld) [Ratio] 0 % [facility] Platelet mean volume (Bld) [Entitic vol] 10.8 fL 9.0 - 12.7 fL [facility] Platelets (Bld) [#/Vol] 105 10*3/uL Low 140 - 440 10*3/uL [facility] RBC (Bld) [#/Vol] 4.61 10*6/uL 4.40 - 5.9 0 10*6/uL [facility] WBC (Bld) [#/Vol] 5.5 10*3/uL 3.6 - 10.7 10*3/uL [facility] CBC WITH AUTO DIFFERENTIALon 03-17-2025 Basophils (Bld) [#/Vol] 0.0 10*3/uL Normal 0.0-0.2 [facility] Comment on above: Performed By: #### L [id number] ####Home Coordinator: JAZLYN [id number])[address] Basophils/100 WBC (Bld) 0.2 % Normal 0.0-2.0 [facility] Comment on above: Performed By: #### L [id number] ####Home Coordinator: JAZLYN [id number])[facility])[address] [place] [address] Eosinophils (Bld) [#/Vol] 0.0 10*3/uL Normal 0.0-0.5 [facility] Comment on above: Performed By: #### L [id number] ####Home Coordinator: JAZLYN [id number])[facility])[address] [place] [address] Eosinophils/100 WBC (Bld) 0.0 % Normal 0.0-6.0 [facility] Comment on above: Performed By: #### L [id number] ####Home Coordinator: JAZLYN BRUCE ([id number])[facility])[address] [place] [address] Erythrocyte distribution width (RBC) [Ratio] 12.8 % Normal 11.5-15.0 [facility] Comment on above: Performed By: #### L [id number] ####Home Coordinator: JAZLYN BRUCE ([phone])[facility])[address] [place] [address] Hematocrit (Bld) [Volume fraction] 42.1 % Normal 40.0-52.0 [facility] Comment on above: Performed By: #### L [id number] ####Home Coordinator: JAZLYN BRUCE ([id number])[facility])[address] [place] [address] Hemoglobin (Bld) [Mass/Vol] 14.3 g/dL Normal 13.0-18.0 [facility] Comment on above: Performed By: #### L [id number] ####Home Coordinator: JAZLYN BRUCE ([id number])[facility])[address] [place] [address] IMMATURE GRANS % 0.2 % Normal 0.0-2.0 [facility] Comment on above: Performed By: #### L [id number] ####Home Coordinator: JAZLYN BRUCE ([id number])[address] IMMATURE GRANS ABSOLUTE 0.0 10*3/uL Normal <0.1 [facility] Comment on above: Performed By: #### L [id number] ####Home Coordinator: JAZLYN BRUCE ([id number])[address] IPF 4 Normal [facility] Comment on above: Performed By: #### L [id number] ####Home Coordinator: JAZLYN BRUCE ([id number])[facility])[address] [place] [address] Lymphocytes (Bld) [#/Vol] 0.7 10*3/uL Low 1.0-4.3 [facility] Comment on above: Performed By: #### L [id number] ####Home Coordinator: JAZLYN BRUCE ([phone])[facility])[address] [place] [address] Lymphocytes/100 WBC (Bld) 12.7 % Low 15.0-45.0 [facility] Comment on above: Performed By: #### L [id number] ####Home Coordinator: JAZLYN BRUCE ([id number])[facility])[address] [place] [address] MCH (RBC) [Entitic mass] 31.0 pg Normal 26.0-34.0 [facility] Comment on above: Performed By: #### L [id number] ####Home Coordinator: JAZLYN BRUCE ([phone])[facility])[address] [place] [address] MCHC 34.0 % Normal 30.5-36.0 [facility] Comment on above: Performed By: #### L [id number] ####Home Coordinator: JAZLYN BRUCE ([phone])[facility])[address] [place] [address] MCV (RBC) [Entitic vol] 91.3 fL Normal 77.0-99.0 [facility] Comment on above: Performed By: #### L [id number] ####Home Coordinator: JAZLYN BRUCE ([phone])[facility])[address] [place] [address] Monocytes (Bld) [#/Vol] 0.7 10*3/uL Normal 0.0-0.9 [facility] Comment on above: Performed By: #### L [id number] ####Home Coordinator: JAZLYN BRUCE ([id number])[facility] [place] [address] Monocytes/100 WBC (Bld) 13.0 % Normal 5.0-13.0 [facility] Comment on above: Performed By: #### L [id number] ####Home Coordinator: JAZLYN BRUCE ([id number])[facility] ([facility])[address] [place] [address] NEUTROPHILS ABSOLUTE 4.1 10*3/uL Normal 1.8-7.5 [facility] Comment on above: Performed By: #### L [id number] ####Home Coordinator: JAZLYN BRUCE ([phone])[facility] ([facility])[address] [place] [address] Neutrophils/100 WBC (Bld) 73.9 % Normal 38.0-82.0 [facility] Comment on above: Performed By: #### L [id number] ####Home Coordinator: JAZLYN BRUCE ([id number])[facility] ([facility])[address] [place] [address] NRBC 0.0 /100 WBCs Normal 0.0-2.0 [facility] Comment on above: Performed By: #### L [id number] ####Home Coordinator: JAZLYN BRUCE ([phone])[facility] ([facility])[address] [place] [address] Platelet mean volume (Bld) [Entitic vol] 10.8 fL Normal 9.0-12.7 [facility] Comment on above: Performed By: #### L [id number] ####Home Coordinator: JAZLYN BRUCE ([phone])[facility] ([facility])[address] [place] [address] [place] Platelets (Bld) [#/Vol] 105 10*3/uL Low 140-440 [facility] Comment on above: Performed By: #### L [id number] ####Home Coordinator: JAZLYN BRUCE ([phone])[facility] ([facility])[address] [place] [address] [place] RBC (Bld) [#/Vol] 4.61 10*6/uL Normal 4.40-5.90 [facility] Comment on above: Performed By: #### L [id number] ####Home Coordinator: JAZLYN BRUCE ([phone])[facility])[address] [place] [address] WBC (Bld) [#/Vol] 5.5 10*3/uL Normal 3.6-10.7 [facility] Comment on above: Performed By: #### L [id number] ####Home Coordinator: JAZLYN BRUCE ([phone])[facility])[address] [place] [address] Laboratory - Coagulationon 0 03-17-2025 aPTT Coag (PPP) [Time] 32.5 s High 20.0 - 30.5 s [facility] INR Coag (PPP) [Relative time] 1.1 {INR} 0.9 - 1.1 [facility] Comment on above: Recommended Anticoag ulant Therapy: [...] [Time] 11.2 s 9.0 - 12.0 s [facility] No Panel Informationon 03-17 Interpretation and review of laboratory results Abnormal [facility] PROTIME AND APTTon aPTT Coag (Bld) [Time] 32.5 s High 20.0-30.5 [facility] Comment on above: Performed By: #### L [id number] ####Home Coordinator: JAZLYN BRUCE ([phone])[facility])[address] [place] [address] INR Coag (PPP) [Relative time] 1.1 {INR} Normal 0.9-1.1 [facility] Comment on above: Result Comment: Jean-Paul [...] prevent Myocardial Infarction Performed By: #### L [id number] ####Home Coordinator: JAZLYN BRUCE ([phone])[facility] ([employer])[address] [place] [address] PT Coag (PPP) [Time] 11.2 s Normal 9.0-12.0 [facility] Comment on above: Performed By: #### L [id number] ####Home Coordinator: JAZLYN BRUCE ([id number])[facility] ([facility])[address] [place] [address] XR ABDOMEN 1 VIEWon 03-17-20 25 XR [...] Signed Date/Time: 03/17/2025 8:00 AM EDT Normal [facility] XR Abdomen Single viewon Rectal tube has been advanced probably within tortuous sigmoid colon. No gaseous distention of bowel loops Report Dictated on Electronically Signed By: Leo Dee MD Electronically Signed Date/Time: 03/17/2025 8:00 AM EDT [facility] Patient Name: FRANCISCO RAMOS : 1950 [...] been prior vertebroplasty at the L1 level. [facility] Leo Dee MD - 03/17/2025 Patient [...] Electronically Signed Date/Time: 03/17/2025 8:00 AM EDT [facility] [employer] Radiology Study observation (narrative) [facility] XR Abdomen Single viewOrdere d By: Leo Dee on 03-17-2025 [employer] Work Phone: Bilirubin Test strip Ql (U)O rdered By: Brijesh Frederick on 03-16-2025 Bilirubin Ql (U) Negative Negative [facility] CBC W Auto Differential pane l (Bld)on 03-16-2025 Basophils (Bld) [#/Vol] 0 10*3/uL 0.0 - 0.2 10*3/uL [facility] Basophils/100 WBC (Bld) 0 % 0.0 - 2.0 % [facility] Eosinophils (Bld) [#/Vol] 0 10*3/uL 0.0 - 0.5 10*3/uL [facility] Eosinophils/100 WBC (Bld) 0 % 0.0 - 6.0 % [facility] [employer] Erythrocyte distribution width (RBC) [Ratio] 13 % 11.5 - 15.0 % [facility] [employer] Hematocrit (Bld) [Volume fraction] 38.8 % Low 40.0 - 52.0 % [facility] [employer] Hemoglobin (Bld) [Mass/Vol] 12.9 g/dL Low 13.0 - 18.0 g/dL [facility] [employer] Immature granulocytes (Bld) [#/Vol] 0 10*3/uL NINF - 0.1 10*3/uL [facility] Immature granulocytes/100 WBC (Bld) 0.3 % 0.0 - 2.0 % [facility] [employer] Interpretation and review of laboratory results Abnormal [facility] IPF 4 [facility] Lymphocytes (Bld) [#/Vol] 0.8 10*3/uL Low 1.0 - 4.3 10*3/uL [facility] Lymphocytes/100 WBC (Bld) 13.6 % Low 15.0 - 45.0 % [facility] [employer] MCH (RBC) [Entitic mass] 30.6 pg 26. 0 - 34.0 pg [facility] [employer] MCHC (RBC) [Mass/Vol] 33.2 % 30.5 - 36.0 % [facility] [employer] MCV (RBC) [Entitic vol] 92.2 fL 77.0 - 99.0 fL [facility] Monocytes (Bld) [#/Vol] 0.6 10*3/uL 0.0 - 0.9 10*3/uL [facility] Monocytes/100 WBC (Bld) 10.5 % 5.0 - 13.0 % [facility] Neutrophils (Bld) [#/Vol] 4.5 10*3/uL 1.8 - 7.5 10*3/uL [facility] Neutrophils/100 WBC (Bld) 75.6 % 38.0 - 82.0 % [facility] Nucleated RBC/100 WBC (Bld) [Ratio] 0 % [facility] Platelet mean volume (Bld) [Entitic vol] 10.8 fL 9.0 - 12.7 fL [facility] Platelets (Bld) [#/Vol] 126 10*3/uL Low 140 - 440 10*3/uL [facility] RBC (Bld) [#/Vol] 4.21 10*6/uL Low 4.40 - 5.9 0 10*6/uL [facility] WBC (Bld) [#/Vol] 6 10*3/uL 3.6 - 10.7 10*3/uL [facility] CBC WITH AUTO DIFFERENTIALon 03-16-2025 Basophils (Bld) [#/Vol] 0.0 10*3/uL Normal 0.0-0.2 [facility] Comment on above: Performed By: #### L [id number] ####Home Coordinator: JAZLYN BRUCE ([phone])[facility])[address] [place] [address] Basophils/100 WBC (Bld) 0.0 % Normal 0.0-2.0 [facility] Comment on above: Performed By: #### L [id number] ####Home Coordinator: JAZLYN BRUCE ([id number])[facility])[address] [place] [address] Eosinophils (Bld) [#/Vol] 0.0 10*3/uL Normal 0.0-0.5 [facility] Comment on above: Performed By: #### L [id number] ####Home Coordinator: JAZLYN BRUCE ([phone])[facility])[address] [place] [address] [place] Eosinophils/100 WBC (Bld) 0.0 % Normal 0.0-6.0 [facility] Comment on above: Performed By: #### L [id number] ####Home Coordinator: JAZLYN BRUCE ([phone])[facility])[address] [place] [address] Erythrocyte distribution width (RBC) [Ratio] 13.0 % Normal 11.5-15.0 [facility] Comment on above: Performed By: #### L [id number] ####Home Coordinator: JAZLYN BRUCE ([phone])[facility])[address] [place] [address] Hematocrit (Bld) [Volume fraction] 38.8 % Low 40.0-52.0 [facility] Comment on above: Performed By: #### L [id number] ####Home Coordinator: JAZLYN BRUCE ([phone])[facility])[address] [place] [address] Hemoglobin (Bld) [Mass/Vol] 12.9 g/dL Low 13.0-18.0 [facility] Comment on above: Performed By: #### L [id number] ####Home Coordinator: JAZLYN BRUCE ([phone])[facility])[address] [place] [address] IMMATURE GRANS % 0.3 % Normal 0.0-2.0 [facility] Comment on above: Performed By: #### L [id number] ####Home Coordinator: JAZLYN BRUCE ([phone])[facility])[address] [place] [address] IMMATURE GRANS ABSOLUTE 0.0 10*3/uL Normal <0.1 [facility] Comment on above: Performed By: #### L [id number] ####Home Coordinator: JAZLYN BRUCE ([phone])[facility])[address] [place] [address] [place] IPF 4 Normal [facility] Comment on above: Performed By: #### L [id number] ####Home Coordinator: JAZLYN BRUCE ([phone])[facility])[address] [place] [address] Lymphocytes (Bld) [#/Vol] 0.8 10*3/uL Low 1.0-4.3 [facility] Comment on above: Performed By: #### L [id number] ####Home Coordinator: JAZLYN BRUCE ([phone])[facility])[address] [place] [address] Lymphocytes/100 WBC (Bld) 13.6 % Low 15.0-45.0 [facility] Comment on above: Performed By: #### L [id number] ####Home Coordinator: JAZLYN BRUCE ([id number])[facility])[address] [place] [address] MCH (RBC) [Entitic mass] 30.6 pg Normal 26.0-34.0 [facility] Comment on above: Performed By: #### L [id number] ####Home Coordinator: JAZLYN BRUCE ([id number])[facility])[address] [place] [address] MCHC 33.2 % Normal 30.5-36.0 [facility] Comment on above: Performed By: #### L [id number] ####Home Coordinator: JAZLYN BRUCE ([id number])[facility])[address] [place] [address] MCV (RBC) [Entitic vol] 92.2 fL Normal 77.0-99.0 [facility] Comment on above: Performed By: #### L [id number] ####Home Coordinator: JAZLYN BRUCE ([id number])[facility])[address] [place] [address] Monocytes (Bld) [#/Vol] 0.6 10*3/uL Normal 0.0-0.9 [facility] Comment on above: Performed By: #### L [id number] ####Home Coordinator: JAZLYN BRUCE ([id number])[facility])[address] [place] [address] Monocytes/100 WBC (Bld) 10.5 % Normal 5.0-13.0 [facility] Comment on above: Performed By: #### L [id number] ####Home Coordinator: JAZLYN BRUCE ([id number])[facility] ([facility])[address] [place] [address] NEUTROPHILS ABSOLUTE 4.5 10*3/uL Normal 1.8-7.5 [place] [facility] Comment on above: Performed By: #### L [id number] ####Home Coordinator: JAZLYN BRUCE ([phone])[facility] ([facility])[address] [place] [address] Neutrophils/100 WBC (Bld) 75.6 % Normal 38.0-82.0 [facility] Comment on above: Performed By: #### L [id number] ####Home Coordinator: JAZLYN BRUCE ([phone])[facility] ([facility])[address] [place] [address] NRBC 0.0 /100 WBCs Normal 0.0-2.0 [facility] Comment on above: Performed By: #### L [id number] ####Home Coordinator: JAZLYN BRUCE ([phone])[facility] ([facility])[address] [place] [address] Platelet mean volume (Bld) [Entitic vol] 10.8 fL Normal 9.0-12.7 [facility] Comment on above: Performed By: #### L [id number] ####Home Coordinator: JAZLYN BRUCE ([phone])[facility] ([facility])[address] [place] [address] Platelets (Bld) [#/Vol] 126 10*3/uL Low 140-440 [facility] Comment on above: Performed By: #### L [id number] ####Home Coordinator: JAZLYN BRUCE ([phone])[facility] ([facility])[address] [place] [address] [place] RBC (Bld) [#/Vol] 4.21 10*6/uL Low 4.40-5.90 [facility] Comment on above: Performed By: #### L [id number] ####Home Coordinator: JAZLYN BRUCE ([phone])[facility])[address] [place] [address] WBC (Bld) [#/Vol] 6.0 10*3/uL Normal 3.6-10.7 [facility] Comment on above: Performed By: #### L [id number] ####Home Coordinator: JAZLYN BRUCE ([phone])[facility] ([facility])[address] [place] [address] COMPREHENSIVE METABOLIC PANE Ken 03-16-2025 Albumin [Mass/Vol] 3.5 g/dL Normal 3.4-4.8 [facility] Comment on above: Performed By: #### L AB17, LAB99 ####Home Coordinator: JAZLYN BRUCE ([phone])[facility])[address] [place] [address] ALP [Catalytic activity/Vol] 67 U/L Normal 40-150 [facility] Comment on above: Performed By: #### L AB17, LAB99 ####Home Coordinator: JAZLYN BRUCE ([phone])[facility] ([facility])[address] [place] [address] ALT [Catalytic activity/Vol] 23 U/L Normal <40 [facility] Comment on above: Performed By: #### L AB17, LAB99 ####Home Coordinator: JAZLYN BRUCE ([phone])[facility] ([facility])[address] [place] [address] Anion gap [Moles/Vol] 4 mmol/L Normal 3-13 [facility] Comment on above: Performed By: #### L AB17, LAB99 ####Home Coordinator: JAZLYN BRUCE ([phone])[facility])[address] [place] [address] AST [Catalytic activity/Vol] 26 U/L Normal <34 [facility] Comment on above: Performed By: #### L AB17, LAB99 ####Home Coordinator: JAZLYN BRUCE ([phone])[facility])[address] [place] [address] Bilirubin [Mass/Vol] 0.5 mg/dL Normal <1.[address] [facility] Comment on above: Performed By: #### L AB17, LAB99 ####Home Coordinator: JAZLYN BRUCE ([phone])[facility])[address] [place] [address] Calcium [Mass/Vol] 8.5 mg/dL Low 8.8-10.0 [facility] Comment on above: Performed By: #### L AB17, LAB99 ####Home Coordinator: JAZLYN BRUCE ([phone])[facility] [place] [address] Chloride [Moles/Vol] 110 mmol/L High 98-107 [facility] Comment on above: Performed By: #### L AB17, LAB99 ####Home Coordinator: JAZLYN RBUCE ([phone])[facility] ([facility])[address] [place] [address] CO2 [Moles/Vol] 23 mmol/L Normal 23-31 [facility] Comment on above: Performed By: #### L AB17, LAB99 ####Home Coordinator: JAZLYN BRUCE ([id number])[facility] ([facility])[address] [place] [address] Creatinine [Mass/Vol] 0.78 mg/dL Normal 0.72-1.25 [facility] Comment on above: Performed By: #### L AB17, LAB99 ####Home Coordinator: JAZLYN BRUCE ([phone])[facility])[address] [place] [address] GLOMERULAR FILTRATION RATE ML/MIN/1.73 SQ M.PREDICTED >90.0 Normal >60.0 [facility] Comment on above: Result Comment: Calc ulation based on the Chronic Kidney Disease Epidemiology Collaboration (CKD-EPI) equation refit without adjustment for race Performed By: #### L AB17, LAB99 ####Home Coordinator: JAZLYN BRUCE ([phone])[facility] ([facility])[address] [place] [address] [place] Glucose [Mass/Vol] 100 mg/dL Normal 82-115 [facility] Comment on above: Performed By: #### L AB17, LAB99 ####Home Coordinator: JAZLYN BRUCE ([phone])[facility])[address] [place] [address] Potassium [Moles/Vol] 3.8 mmol/L Normal 3.5-5.[address] [facility] Comment on above: Result Comment: [facility] potassium values may be up to 0.5 mmol/L lower than serum values. Performed By: #### L AB17, LAB99 ####Home Coordinator: JAZLYN BRUCE ([phone])[facility])[address] [place] [address] Protein [Mass/Vol] 6.5 g/dL Normal 6.4-8.3 [facility] Comment on above: Performed By: #### L AB17, LAB99 ####Home Coordinator: JAZLYN BRUCE ([phone])[facility])[address] [place] [address] Sodium [Moles/Vol] 137 mmol/L Normal 136-145 [facility] Comment on above: Performed By: #### L AB17, LAB99 ####Home Coordinator: JAZLYN BRUCE ([phone])[facility])[address] [place] [address] Urea nitrogen [Mass/Vol] 18 mg/dL Normal 9-23 [facility] Comment on above: Performed By: #### L AB17, LAB99 ####Home Coordinator: JAZLYN BRUCE ([phone])[facility])[address] [place] [address] CT ABDOMEN PELVIS W CONTRAST on 03-16-2025 CT ABDOMEN PELVIS W CONTRAST Patient Name: FRANCISCO RAMOS : 1950 Exam [...] findings was made to JAMEEL BARRAZA via [employer] Chat on 03/16/2025 8:35 AM EDT. Report Dictated on Electronically Signed By: Sebastian Díaz MD Electronically Signed Date/Time: 03/16/2025 8:35 AM EDT Chief complaints Abdominal Pain CT abdomen pelvis w contrast Abdominal pain, acute, nonlocalized Normal [facility] CT Abdomen and Pelvis W cont [...] findings was made to JAMEEL BARRAZA via [employer] Chat on 03/16/2025 8:35 AM EDT. Report Dictated on Electronically Signed By: Sebastian Díaz MD Electronically Signed Date/Time: 03/16/2025 8:35 AM EDT [facility] 1950 [id number] Exam Date/Time: 03/16/2025 07:45 Procedure: CT ABDOMEN [...] LYMPH NODES: Unremarkable. No enlarged lymph nodes. [facility] Sebastian Díaz MD - 03/16/2025 Patient Name: [facility]IS[facility] 1950 [id number] Exam Date/Time: 03/16/2025 07:45 Procedure: CT ABDOMEN [...] findings was made to JAMEEL BARRAZA via [employer] Secure Chat on 03/16/2025 8:35 AM EDT. Report Dictated on Electronically Signed By: Sebastian Díaz MD Electronically Signed Date/Time: 03/16/2025 8:35 AM EDT [facility] Radiology Study observation (narrative) [facility] alth CT Abdomen and Pelvis W cont rast IVOrdered By: Sebastian Díaz on 03-16-2025 [facility] [employer] Work Phone: Comprehensive metabolic 1998 panelon 03-16-2025 Albumin [Mass/Vol] 3.5 g/dL 3.4 - 4.8 g/dL [facility] ALP [Catalytic activity/Vol] 67 U/L 40 - 150 U/L [facility] ALT [Catalytic activity/Vol] 23 U/L [facility] Anion gap [Moles/Vol] 4 mmol/L 3 - 13 mmol/L [facility] AST [Catalytic activity/Vol] 26 U/L [facility] U/L [facility] Bilirubin [Mass/Vol] 0.5 mg/dL NINF - 1.2 mg/dL [facility] Calcium [Mass/Vol] 8.5 mg/dL Low 8.8 - 10. 0 mg/dL [facility] Chloride [Moles/Vol] 110 mmol/L High 98 - 10 7 mmol/L [facility] CO2 [Moles/Vol] 23 mmol/L 23 - 31 mmol/L [facility] Creatinine [Mass/Vol] 0.78 mg/dL 0.72 - 1.25 mg/dL [facility] GFR/1.73 sq M.predicted (S/P/Bld) [Vol rate/Area] - PINF [facility] Comment on above: Calculation based on the Chronic Kidney Disease Epidemiology Collaboration (CKD-EPI) equation refit without adjustment for race Glucose [Mass/Vol] 100 mg/dL 82 - 115 mg/dL [facility] Interpretation and review of laboratory results Abnormal [facility] Potassium [Moles/Vol] 3.8 mmol/L 3.5 - 5.1 mmol/L [facility] Comment on above: Plasma potassium damon ues may be up to 0.5 mmol/L lower than serum values. Protein [Mass/Vol] 6.5 g/dL 6.4 - 8.3 g/dL [facility] Sodium [Moles/Vol] 137 mmol/L 136 - 145 mmol/L [facility] Urea nitrogen [Mass/Vol] 18 mg/dL 9 - 23 mg/d L [facility] ED Nursing Noteon 03-16-2025 ED Nursing Note Received report from JOSÉ LUIS Mujica Normal [facility] ED Provider Noteon ED Provider Note EMERGENCY DEPARTMENT ENCOUNTER Pt Name: Francisco Ramos Birthdate 1950 Date of evaluation: 03/16/2025 ED Provider: Jameel Barraza DO CHIEF COMPLAINT Chief Complaint Patient presents with Abdominal Pain Transfer from [facility] [...] the emergency department by ED transfer from [facility] ED for abd pain. 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 Pt unable to remember [...] findings was made to JAMEEL BARRAZA via [employer] Chat on 03/16/2025 8:35 AM EDT. [...] (more content not included)... Normal [facility] Ketones Test strip Ql (U)Ord ered By: Brijesh Frederick on 03-16-2025 Ketones Ql (U) 5 mg/dl High Negative [facility] LACTIC ACID WITH REFLEXon Lactate [Moles/Vol] 0.6 mmol/L Normal 0.5-2.2 [facility] Comment on above: Performed By: #### L [id number] ####Home Coordinator: JAZLYN BRUCE ([phone])[facility] ([facility])[address] [place] [address] LIPASEon 03-16-2025 Lipase [Catalytic activity/Vol] 11 U/L Normal <55 [facility] Comment on above: Performed By: #### L AB17, LAB99 ####Home Coordinator: JAZLYN BRUCE ([phone])[facility] ([facility])[address] [place] [address] Laboratory - Chemistry and C hemistry - challengeon 03-16-2025 Lipase [Catalytic activity/Vol] 11 U/L NINF - 55 U/L [facility] Lactate [Moles/Vol] 0.6 mmol/L 0.5 - 2. 2 mmol/L [facility] Lactic Acidon 03-16-2025 Lactate [Moles/Vol] mmol/L Normal 0.0-2.[address] [facility] Comment on above: Order Comment: Y Performed By: #### L 503.6005 #### [facility] [address] [place], [address] Lactic acid measurementOrder ed By: Brijesh Frederick on 03-16-2025 Lactate [Moles/Vol] mmol/L 0.0-2.[address] [facility] Lipase [Catalytic activity/V ol]on 03-16-2025 Interpretation and review of laboratory results Normal [facility] Microscopic analysis of urin e for red blood cells (RBC)Ordered By: Brijesh Frederick on 03-16-2025 Microscopic analysis of urine for red blood cells (RBC) 0 SEEN /hpf 0-5 [facility] Mucus LM Ql (Urine sed)Order ed By: Brijesh Yoly on 03-16-2025 Mucus Ql (Urine sed) 0 SEEN /hpf [facility] Nitrite Test strip Ql (U)Ord ered By: Brijesh Yoly on 03-16-2025 Nitrite Ql (U) Negative Negative [facility] No Panel Informationon 03-16 [facility] Interpretation and review of laboratory results Normal [facility] Nursing Noteon 03-16-2025 Nursing Note Around 1830 [...] filled out as well. Nikki Aguilar, RN terrazzo supervisor was notified of the incident. Normal [facility] Protein Test strip Ql (U)Ord ered By: Brijesh Frederick on 03-16-2025 Protein Ql (U) 30 mg/dl High Negative [facility] Squamous epithelial cells de tection in urine sediment by light microscopyOrdered By: Brijesh Frederick on 03-16-2025 Epithelial cells.squamous LM Ql (Urine sed) 0 SEEN /hpf 0-5 [facility] Urinalysis, Completeon 03-16 WBC 0-5 SEEN Normal 0-5 [facility] Comment on above: Order Comment: Y Performed By: #### L 503.6005 #### [facility] [address] [place], [address] BILIRUBIN URINE Negative Normal Negative [facility] Comment on above: Order Comment: Y Performed By: #### L 503.6005 #### [facility] [address] [place], [address] Clarity (U) Clear Normal Clear [facility] Comment on above: Order Comment: Y Performed By: #### L 503.6005 #### [facility] [address] [place], [address] Color (U) Yellow Normal Yellow [facility] Comment on above: Order Comment: Y Performed By: #### L 503.6005 #### [facility] [address] [place], [address] GLUCOSE, UR Normal Normal Normal [facility] Comment on above: Order Comment: Y Performed By: #### L 503.6005 #### [facility] [address] [place], [address] KETONE UR 5 mg/dl Abnormal Negative [facility] Comment on above: Order Comment: Y Performed By: #### L 503.6005 #### [facility] [address] [place], [address] LEUK ESTERASE Negative Normal Negative [facility] Comment on above: Order Comment: Y Performed By: #### L 503.6005 #### [facility] [address] [place], [address] Nitrite Ql (U) Negative Normal Negative [facility] Comment on above: Order Comment: Y Performed By: #### L 503.6005 #### [facility] [address] [place], [address] OCCULT BLOOD-UR Negative Normal Negative [facility] Comment on above: Order Comment: Y Performed By: #### L 503.6005 #### [facility] [address] [place], [address] pH UR 7.0 Normal 5.0 - 8.0 [facility] Comment on above: Order Comment: Y Performed By: #### L 503.6005 #### [facility] [address] [place], [address] PROT DIPSTX 30 mg/dl Abnormal Negative [facility] Comment on above: Order Comment: Y Performed By: #### L 503.6005 #### [facility] [address] [place], [address] SP.GR. DIPSTX 1.010 Normal 1.002-1.030 [facility] Comment on above: Order Comment: Y Performed By: #### L 503.6005 #### [facility] [address] [place], [address] UROBILI Normal Normal Normal [facility] Comment on above: Order Comment: Y Performed By: #### L 503.6005 #### [facility] [address] [place], [address] BACTERIA 0 SEEN Normal None Seen [facility] Comment on above: Order Comment: Y Performed By: #### L 503.6005 #### [facility] [address] [place], [place], [id number] EPI,SQUAMOUS 0 SEEN Normal 0-5 [facility] Comment on above: Order Comment: Y Performed By: #### L 503.6005 #### [facility] [address] [place], [place], [id number] Mucus Ql (Urine sed) 0 SEEN Normal [facility] Comment on above: Order Comment: Y Performed By: #### L 503.6005 #### [facility] [address] [place], [place], [id number] RBC 0 SEEN Normal 0-5 [facility] Comment on above: Order Comment: Y Performed By: #### L 503.6005 #### [facility] [address] [place], [place], [id number] Urine clarityOrdered By: Maynor Frederick on 03-16-2025 Clarity (U) Clear Clear [facility] Urine color determinationOrd ered By: Brijesh Frederick on 03-16-2025 Color (U) Yellow Yellow [facility] Urine glucose detectionOrder ed By: Brijesh Frederick on 03-16-2025 Glucose Ql (U) Normal mg/dl Normal [facility] Urine leukocyte esterase det ection by dipstickOrdered By: Brijesh Frederick on 03-16-2025 Leukocyte esterase Test strip Ql (U) Negative Negative [facility] Urine pHOrdered By: Brijesh Blanco on 03-16-2025 pH (U) 7.0 [pH] 5.0 - 8.0 [facility] Urine sediment bacteria coun t by microscopy (number/high power field)Ordered By: Brijesh Frederick on 03-16-2025 Bacteria LM.HPF (Urine sed) [#/Area] 0 /[HPF] None Seen [facility] Urine specific gravity measu rementOrdered By: Brijesh Frederick on 03-16-2025 Specific gravity (U) [Rel density] 1.010 1.002-1.030 [facility] Urine urobilinogen measureme ntOrdered By: Brijesh Yoly on 03-16-2025 Urobilinogen Ql (U) Normal mg/dl Normal [facility] White blood cell countOrdere d By: Brijesh Georgesgett on 03-16-2025 White blood cell count 0-5 SEEN /hpf 0-5 [facility] XR ABDOMEN 2 VIEWS SUPINE AN [...] Signed Date/Time: 03/16/2025 12:53 PM EDT Normal [facility] XR Abdomen Supine and Latera l-decubituson 03-16-2025 Radiology Study observation (narrative) [facility] He alth Rectal tube placement. Improved sigmoid colon distention. Mildly dilated proximal colon, possibly ileus, with a moderate to large amount of colonic stool. Report Dictated on Electronically Signed By: Sebastian Díaz MD Electronically Signed Date/Time: 03/16/2025 12:53 PM EDT [facility] Name: [facility]ANCISCO RAM[facility] 1950 [id number] Exam Date/Time: 03/16/2025 12:55 Procedure: XR ABDOMEN [...] spine. The visualized lung bases are unremarkable. [facility] Sebastian Díaz MD - 03/16/2025 Patient Name: FRANCISCO RAMOS : 1950 [id number] Exam Date/Time: 03/16/2025 12:55 Procedure: XR ABDOMEN [...] Signed Date/Time: 03/16/2025 12:53 PM EDT [facility] Abdomen/Pelvis W IV Cont ONL Yon 03-15-2025 Abdomen/Pelvis W IV Cont ONLY [facility] Imaging Services [address] [place], [place] [address] Abdomen/Pelvis W IV Cont ONLY MR#: [id number] Acct: [id number] Name: FRANCISCO RAMOS Rep #: [id number] : 1950 M 74 From: Az Tejeda MD PCP: Dr. Ethan Avendano MD Status: REG ER Study: Abdomen/Pelvis W IV Cont ONLY Date of Exam: Exam# [id number] Ordering Dr: Gordon Frederick DO PROCEDURE: ABDOMEN/PELVIS [...] if not recently performed. 3. Mild splenomegaly. [place] Alert: Sigmoid volvulus The critical information above was relayed directly by me by telephone to Brijesh Frederick on 03/15/2025 at 11:58 pm with readback verification. Reading Location: [id number] CC: Dr. Brijesh Frederick DO; Dr. Ethan Avendano MD [employer] Supervisor: Signed Normal [facility] Absolute lymphocyte countOrd ered By: Brijesh Frederick on 03-15-2025 Lymphocytes Auto (Unsp spec) [#/Vol] 0.69 10*3/uL Low 0.83-4.51 [facility] Absolute neutrophil countOrd ered By: Brijesh Frederick on 03-15-2025 Neutrophils (Bld) [#/Vol] 4.8 10*3/uL 2.0-7.7 [facility] Anion gap in Serum or Plasma Ordered By: Brijesh Frederick on 03-15-2025 Anion gap [Moles/Vol] 14 mmol/L 5-15 [facility] Automated lymphocyte count a s percentage of total leukocytesOrdered By: Brijesh Frederick on 03-15-2025 Lymphocytes/100 WBC Auto (Unsp spec) 11.6 % Low 19-41 [facility] BUN/creatinine ratioOrdered By: Brijesh Frederick on 03-15-2025 Urea nitrogen/Creatinine [Mass ratio] 23.2 mg/mg High 10-20 [facility] Basophil percentageOrdered B y: Brijesh Frederick on 03-15-2025 Basophils/100 WBC (Bld) 0.2 % 0-1 [facility] Bilirubin, totalOrdered By: Brijesh Frederick on 03-15-2025 Bilirubin [Mass/Vol] 0.51 mg/dL 0.00-1.30 [facility] CBC W/Diff, Automatedon 03-04-2024 Absolute Lymph 0.69 X10 3/uL Low 0.83-4.51 [facility] Comment on above: Performed By: #### L 503.6005 #### [facility] [address] [place], [address] Absolute Neut 4.8 X10 3/uL Normal 2.0-7.7 [facility] Comment on above: Performed By: #### L 503.6005 #### [facility] [address] [place], [address] Basophils/100 WBC (Bld) 0.2 % Normal 0-1 [facility] Comment on above: Performed By: #### L 503.6005 #### [facility] [address] [place], [address] Eosinophils/100 WBC (Bld) 0.0 % Normal 0-5 [facility] Comment on above: Performed By: #### L 503.6005 #### [facility] [address] [place], [address] Erythrocyte distribution width (RBC) [Ratio] 12.8 % Normal 11.6-14.6 [facility] Comment on above: Performed By: #### L 503.6005 #### [facility] [address] [place], [address] Hematocrit (Bld) [Volume fraction] 42.3 % Normal 40-54 [facility] Comment on above: Performed By: #### L 503.6005 #### [facility] [address] [place], [address] Hemoglobin (Bld) [Mass/Vol] 14.6 g/dL Normal 13.0-16.5 [facility] Comment on above: Performed By: #### L 503.6005 #### [facility] [address] [place], [address] IG% 0.500 Normal 0.0-0.9 [facility] Comment on above: Result Comment: IG% - Immature Granulocytes (promyelocytes, myelocytes and metamyelocytes) > 1% indicates that a LEFT SHIFT is Present. Performed By: #### L 503.6005 #### [facility] [address] [place], [address] Lymphocytes/100 WBC (Bld) 11.6 % Low 19-41 [facility] Comment on above: Performed By: #### L 503.6005 #### [facility] [address] [place], [address] MCH (RBC) [Entitic mass] 30.8 pg Normal 27.0-32.0 [facility] Comment on above: Performed By: #### L 503.6005 #### [facility] [address] [place], [address] MCHC (RBC) [Mass/Vol] 34.5 g/dL Normal 32-36 [facility] Comment on above: Performed By: #### L 503.6005 #### [facility] [address] [place], [address] MCV (RBC) [Entitic vol] 89.2 fL Normal 80-94 [facility] Comment on above: Performed By: #### L 503.6005 #### [facility] [address], [address] Monocytes/100 WBC (Bld) 7.4 % Normal 0-10 [facility] Comment on above: Performed By: #### L 503.6005 #### [facility] [address] [place], [address] Neutrophils/100 WBC (Bld) 80.3 % High 47-70 [facility] Comment on above: Performed By: #### L 503.6005 #### [facility] [address] [place], [address] Nucleated RBC (Bld) [#/Vol] 0 10*3/uL Normal 0-5 [facility] Comment on above: Performed By: #### L 503.6005 #### [facility] [address] [place], [address] Platelet mean volume (Bld) [Entitic vol] 11.1 fL Normal 6.2-12.0 [facility] Comment on above: Performed By: #### L 503.6005 #### [facility] [address] [place], [address] Platelets (Bld) [#/Vol] 148 10*3/uL Low 150-450 [facility] Comment on above: Performed By: #### L 503.6005 #### [facility] [address] [place], [address] RBC (Bld) [#/Vol] 4.74 10*6/uL Normal 4.6-6.[address] [facility] Comment on above: Performed By: #### L 503.6005 #### [facility] [address] [place], [address] RDW SD 41.8 fl Normal 35.1-43.9 [facility] Comment on above: Performed By: #### L 503.6005 #### [facility] [address] [place], [address] WBC (Bld) [#/Vol] 5.9 10*3/uL Normal 4.4-11.0 [facility] Comment on above: Performed By: #### L 503.6005 #### [facility] [address] [place], [address] Carbon dioxide, total [Moles /volume] in Central venous bloodOrdered By: Brijesh Frederick on 03-15-2025 CO2 [Moles/Vol] 24.2 mmol/L 21.0-32.0 [facility] Chloride assayOrdered By: Jake Frederick on 03-15-2025 Chloride [Moles/Vol] 101 mmol/L 98-108 [facility] Comprehensive Metabolic Prof ilon 03-15-2025 Albumin [Mass/Vol] 4.4 g/dL Normal 3.4-4.8 [facility] Comment on above: Performed By: #### L 503.6005 #### [facility] [address] [place], [address] Albumin/Globulin [Mass ratio] 1.6 {ratio} Normal 0.9-2.4 [facility] Comment on above: Performed By: #### L 503.6005 #### [facility] [address] [place], [address] ALK PHOS 84 U/L Normal 40-129 [facility] Comment on above: Performed By: #### L 503.6005 #### [facility] [address] [place], [address] ALT [Catalytic activity/Vol] 17 U/L Normal <=46 [facility] Comment on above: Performed By: #### L 503.6005 #### [facility] [address] [place], [address] AST [Catalytic activity/Vol] 26 U/L Normal <=37 [facility] Comment on above: Performed By: #### L 503.6005 #### [facility] [address] [place], [address] Bilirubin [Mass/Vol] 0.51 mg/dL Normal 0.00-1.30 [facility] Comment on above: Performed By: #### L 503.6005 #### [facility] [address] [place], [address] BUN/CRE 23.2 RATIO High 10-20 [facility] Comment on above: Performed By: #### L 503.6005 #### [facility] [address] [place], [address] Calcium [Mass/Vol] 9.8 mg/dL Normal 7.6-11.0 [facility] Comment on above: Performed By: #### L 503.6005 #### [facility] [address] [place], [address] Chloride [Moles/Vol] 101 mmol/L Normal 98-108 [facility] Comment on above: Performed By: #### L 503.6005 #### [facility] [address] [place], [address] CO2 [Moles/Vol] 24.2 mmol/L Normal 21.0-32.0 [facility] Comment on above: Performed By: #### L 503.6005 #### [facility] [address] [place], [address] Creatinine [Mass/Vol] 0.93 mg/dL Normal 0.70-1.20 [facility] Comment on above: Performed By: #### L 503.6005 #### [facility] [address] [place], [address] ECRCL 66.84 ml/min Normal 50-250 [facility] Comment on above: Performed By: #### L 503.6005 #### [facility] [address] [place], [address] GAP 14 Normal 5-15 [facility] Comment on above: Performed By: #### L 503.6005 #### [facility] [address] [place], [address] GFR/1.73 sq M.predicted among non-blacks MDRD (S/P/Bld) [Vol rate/Area] 88 mL/min/{1.73_m2} Normal >60 [facility] Comment on above: Result Comment: mL/m in/1.73m2 CKD-EPI Creatinine Equation (2020) Performed By: #### L 503.6005 #### [facility] [address] [place], [address] Globulin (S) [Mass/Vol] 2.8 g/dL Normal 2.2-4.2 [facility] Comment on above: Performed By: #### L 503.6005 #### [facility] [address] [place], [address] Glucose [Mass/Vol] 170 mg/dL High 70-99 [facility] Comment on above: Performed By: #### L 503.6005 #### [facility] [address] [place], [address] Potassium [Moles/Vol] 3.7 mmol/L Normal 3.3-5.1 [facility] Comment on above: Performed By: #### L 503.6005 #### [facility] [address] [place], [address] Sodium [Moles/Vol] 139 mmol/L Normal 133-145 [facility] Comment on above: Performed By: #### L 503.6005 #### [facility] [address] [place], [address] T PROT 7.2 g/dL Normal 5.9-8.4 [facility] Comment on above: Performed By: #### L 503.6005 #### [facility] [address] [place], [address] Urea nitrogen [Mass/Vol] 22 mg/dL High 4-19 [facility] Comment on above: Performed By: #### L 503.6005 #### [facility] [address] [place], [address] Emergency Department Summary on 03-15-2025 Emergency Department Summary [facility] Medical Records Department [address] [place] [address] Emergency Department Summary 03/15/25 MR#: [id number] Acct: [id number] Name: FRANCISCO RAMOS Rep #: [id number] : 1950 74 From: Brijesh Frederick DO [...] intact Psych: Cooperative, appropriate mood and affect [facility] Medical History Tortuous colon Wears glasses Arthritis High cholesterol Easy bruising Back pain Non-smoker History of pain when walking History of echocardiogram History of stress test Cardiology follow-up encounter Parkinson disease Atherosclerosis of coronary artery of [place] heart without angina pectoris Hyperlipidemia Common variable immunodeficiency Benign prostate hyperplasia Basal cell carcinoma of left ear Home Medications ???Medication ???Instructions ???Recorded ???Last Taken ???Type multivitamin with folic acid 400 1 tab PO DAILY 06/10/13 08/22/24 H istory mcg tablet folic acid 400 mcg tablet 1 tab PO DAILY 12/24/13 08/19/24 H istory immune glob,gamma(IgG) 10 20 g .Route .[id number] 03/04/1901/25 History btki-fex-znaa-IgA 0 to 50 mcg/mL IV solution nitroglycerin [...] Room Air (more content not included)... Normal [facility] Eosinophil percentageOrdered By: Brijesh Yoly on 03-15-2025 Eosinophils/100 WBC (Bld) 0.0 % 0-5 [facility] Erythrocyte distribution wid th ratioOrdered By: [place] Yoly on 03-15-2025 Erythrocyte distribution width (RBC) [Ratio] 12.8 % 11.6-14.6 [facility] Erythrocyte distribution wid th standard deviationOrdered By: Brijesh Manjarrez on 03-15-2025 Erythrocyte distribution width (RBC) [Ratio] 41.8 fl 35.1-43.9 [facility] Glomerular filtration rate ( GFR) estimation/1.73 sq m using serum, plasma, or whole bOrdered By: Brijesh Frederick on 03-15-2025 GFR/1.73 sq M.predicted among non-blacks MDRD (S/P/Bld) [Vol rate/Area] 88 mL/min/{1.73_m2} >60 [facility] Comment on above: mL/min/1.73m2 CKD-EP I Creatinine Equation (2020) Hematocrit Auto (Bld) [Volum e fraction]Ordered By: Brijesh Frederick on 03-15-2025 Hematocrit (Bld) [Volume fraction] 42.3 % 40-54 [facility] Hemoglobin measurementOrdere d By: Brijesh Frederick on 03-15-2025 Hemoglobin (Bld) [Mass/Vol] 14.6 g/dL 13.0-16.5 [facility] Immature granulocytes/100 WB C Auto (Bld)Ordered By: [facility]25 Immature granulocytes/100 WBC (Bld) 0.500 % 0.0-0.9 [facility] Comment on above: IG% - Immature Granu locytes (promyelocytes, myelocytes and metamyelocytes) > 1% indicates that a LEFT SHIFT is Present. Laboratory - Chemistry and C hemistry - challengeOrdered By: Brijeshmathieu Frederick on 03-15-2025 AST [Catalytic activity/Vol] 26 U/L <38 [facility] Lipaseon 03-15-2025 Lipase [Catalytic activity/Vol] 20 U/L Normal 13-75 [facility] Comment on above: Result Comment: Tejas lassiter note: LIPASE revised reference range effective 22. New Lipase methodology. Expected to produce lower values than the previous assay method. NEW Reference Range: 13 - 75 U/L Performed By: #### L 503.6005 #### [facility] [address] [place] [address], [id number] Lipase measurementOrdered By : [facility] on 03-15-2025 Lipase [Catalytic activity/Vol] 20 U/L 13-75 [facility] Comment on above: Please note:LIPASE r evised reference range effective 22. New Lipase methodology. Expected to produce lower values than the previous assay method. NEW Reference Range: 13 - 75 U/L MCV (mean corpuscular volume ) determinationOrdered By: Brijesh Frederick on 03-15-2025 MCV (RBC) [Entitic vol] 89.2 fL 80-94 [facility] Mean corpuscular hemoglobin (MCH) determinationOrdered By: Brijesh Frederick on 03-15-2025 MCH (RBC) [Entitic mass] 30.8 pg 27.0-32.0 [facility] Mean corpuscular hemoglobin concentration (MCHC) determinationOrdered By: Brijesh Frederick on 03-15-2025 MCHC (RBC) [Mass/Vol] 34.5 g/dL 32-36 [facility] Mean platelet volume determi nationOrdered By: Brijesh Frederick on 03-15-2025 Platelet mean volume (Bld) [Entitic vol] 11.1 fL 6.2-12.0 [facility] Monocyte percentageOrdered B y: Brijesh Frederick on 03-15-2025 Monocytes/100 WBC (Bld) 7.4 % 0-10 [facility] Neutrophil percentageOrdered By: Brijesh Frederick on 03-15-2025 Neutrophils/100 WBC (Bld) 80.3 % High 47-70 [facility] Nucleated red blood cell per centageOrdered By: Brijesh Frederick on 03-15-2025 Nucleated RBC/100 WBC (Bld) [Ratio] 0 % 0-5 [facility] Platelet countOrdered By: Jake Frederick on 03-15-2025 Platelets (Bld) [#/Vol] 148 10*3/uL Low 150-450 [facility] Potassium measurement (mass/ volume)Ordered By: Brijesh Frederick on 03-15-2025 Potassium (Unsp spec) [Mass/Vol] 3.7 mmol/L 3.3-5.1 [facility] RBC Auto (Bld) [#/Vol]Ordere d By: Brijesh Frederick on 03-15-2025 RBC (Bld) [#/Vol] 4.74 10*6/uL 4.6-6.[address] [facility] Serum creatinine measurement (mass/volume)Ordered By: Brijesh Frederick on 03-15-2025 Creatinine [Mass/Vol] 0.93 mg/dL 0.70-1.20 [facility] Serum globulin measurementOr dered By: Brijesh Frederick on 03-15-2025 Globulin (S) [Mass/Vol] 2.8 g/dL 2.2-4.2 [facility] Serum glucose measurement (m ass/volume)Ordered By: Brijesh Frederick on 03-15-2025 Glucose [Mass/Vol] 170 mg/dL High 70-99 [facility] Serum or plasma alanine garcia otransferase (ALT) measurementOrdered By: Brijesh Frederick on 03-15-2025 ALT [Catalytic activity/Vol] 17 U/L <47 [facility] Serum or plasma albumin john urement (mass/volume)Ordered By: Brijesh Manjarrez on 03-15-2025 Albumin [Mass/Vol] 4.4 g/dL 3.4-4.8 [facility] Serum or plasma albumin/glob ulin mass ratioOrdered By: Brijesh Frederick on 03-15-2025 Albumin/Globulin [Mass ratio] 1.6 {ratio} 0.9-2.4 [facility] Serum or plasma alkaline dylon sphatase measurementOrdered By: Brijesh Frederick on 03-15-2025 ALP [Catalytic activity/Vol] 84 U/L 40-129 [facility] Serum or plasma calcium john urement (mass/volume)Ordered By: Brijesh Manjarrez on 03-15-2025 Calcium [Mass/Vol] 9.8 mg/dL 7.6-11.0 [facility] Serum or plasma urea nitroge n measurement (mass/volume)Ordered By: Brijesh Frederick on 03-15-2025 Urea nitrogen [Mass/Vol] 22 mg/dL High 4-19 [facility] Sodium levelOrdered By: Gordon Frederick on 03-15-2025 Sodium [Moles/Vol] 139 mmol/L 133-145 [facility] Total proteinOrdered By: Maynor Frederick on 03-15-2025 Protein [Mass/Vol] 7.2 g/dL 5.9-8.4 [facility] White blood cell (WBC) count Ordered By: Brijesh Frederick on 03-15-2025 WBC (Bld) [#/Vol] 5.9 10*3/uL 4.4-11.0 [facility] PT D/C Summary (1)on 025 PT D/C Summary (1) [facility] 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 He was on the [...] please feel free to call me at [phone]. Thank you for the referral of this patient. Sincerely, Mojgan Gonzalez, MPT Balance/Gait/Functi onal tests Balance/Special Test Scores Functional Gait Assessment Score: 25 % Disability: 16.6700 CATSIB Score (Max score 120 seconds): 120 Lower Extremity Functional Score: 44 Improvement % Improvement: 01/06/25 1506 CC: Dr. Ethan Avendano MD; KIM Mendenhall Signed Normal [facility] T4 Free Directon 12-25-2024 T4 FREE DIRECT 0.90 ng/dL Normal 0.76-1.46 [facility] Comment on above: Performed By: #### L 506.0400 #### [facility] [address] [place], [address] T4 freeOrdered By: Ethan cheng on 12-25-2024 Free T4 [Mass/Vol] 0.90 ng/dL 0.76-1.46 [facility] Carotid Duplex Ultrasoundon 12-17-2024 Carotid Duplex Ultrasound [facility] [address] [place] [address] Carotid Duplex Ultrasound 12/17/24 1358 MR#: [id number] Acct: [id number] Name: FRANCISCO RAMOS Rep #: [id number] : 1950 74 From: Marcio Newell MD Attending Dr: Dr. Demian Ramsay MD Status: REG C Ordering Dr: Demian Ramsay MD Date: 12/17/24 Location: [facility] Sex: M C Admitted: Reason For Study [...] the left vertebral artery. Procedure Carotid Duplex 67784. This is a Carotid Duplex examination using [...] MD Date Dictated: 12/17/241357 Date Transcribed: 12/17/241838 [place] Supervisor: Signed Normal [facility] Duplex ultrasound of carotid artery reportOrdered By: Marcio Newell on 12-17-2024 Study report [facility] [address] [facility] [place] [address] Carotid Duplex Ultrasound 12/17/241357 MR#: [id number] Acct: [id number] Name: FRANCISCO RAMOS Rep #:[id number] : 1950 74 From: Marcio Newell MD Attending Dr: Dr. Demian Ramsay MD S tatus: REG CLI Ordering Dr: Demian Ramsay MD Date: Location: [facility] Sex: M C Admitted: Reason For Study Reason For Study: BRUIT Rt. Velocities/BP Lt. Velocities/BP Prox CCA 107.2/13.9 cm/sec. Prox CCA 142.3/23.6 cm/sec. Mid CCA 74.4/13.0 cm/sec. Mid ENC827.8/19.9 cm/sec. Dist CCA 65.8/10.6 cm/sec. Dist CCA 91.1/19.9 cm/sec. Prox ICA 177.7/31.6 cm/sec. Prox ICA 129.5/10.8 cm/sec. Mid ICA 134.4/19.4 cm/sec. Mid UXD483.8/19.9 cm/sec. Dist ICA 125.3/28.5 cm/sec. Dist ICA [...] the left vertebral artery. Procedure Carotid Duplex 60695. This is a Carotid Duplex examination using B-mode, color flow and specral Doppler. Exam performed in department. VL/Carotid Duplex Ultrasound Interpretation Summary Moderate (50-69%) stenosis right extracranial internal carotid. Mild (<50%) stenosis left extracranial internal carotid. Flow within the vertebral arteries is antegrade bilaterally. __ Ordering Physician: Demian Ramsay Referring Physician: Ethan Avendano Performed By: Lisa Kohler, RDCS, RVT 12/17/24 1839 Date _ Marcio Newell MD CC: Dr. Demian Ramsay MD; Dr. Ethan Avendano MD ~ Date Dictated: 12/17/24 1358 Date Transcribed: 12/17/24 1839 [place] Supervisor: Signed [facility] Other Inital Evaluation (1) - PTon 12-04-2024 Inital Evaluation (1) - PT [facility] [address] [facility] [place] [address] / REHABILITATION SERVICES INITIAL EVALUATION MR#: [id number] Acct: [id number] Name: FRANCISCO RAMOS Rep #: [id number] : 1950 74 From: Mojgan DC Referring Dr.: Sandra Joaquin Status: REG RCR Insurance: MEDICARE PART A B [facility] Patient's Visit Information Visit Information Visit [...] 8 years ago with PD. He take [employer] classes here (2 yoga classes, Mellisa) for [...] perform ADL's, To increase janina erance to activity/condition/ position, To improve performance [...] of care (more content not included)... Normal [facility] Cardiology Visit Reporton Cardiology Visit Report [facility] [address] [place] [address] OFFICE VISIT Date of Service: 11/28/24 MR#: [id number] Acct: [id number] Name: FRANCISCO RAMOS Rep #: [id number] : 1950 Provider: Dr. Demian Ramsay MD Age/Sex: 74/M Location[facility] Status: Signed HPI HPI History of [...] for his age. He does go to [facility] routinely. 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 Required: No Accompanied by: Significant Other Is patient in pain?: No Allergies No Known Allergies Allergy (Verified 11/28/24 10:54) Medications ???Medication ???Instructions ???Recorded ???Confirmed ???Type multivitamin with folic acid 400 1 tab PO DAILY 06/10/13 11/28/24 H istory mcg tablet folic acid 400 mcg tablet 1 tab PO DAILY 12/24/13 11/28/24 H istory immune glob,gamma(IgG) 10 20 g .Route .[id number] 03/04/1911/03 History ousn-vwt-arnj-IgA 0 to 50 mcg/mL IV solution nitroglycerin [...] Parkinson disease Atherosclerosis of coronary artery of [place] heart without angina pectoris Hyperlipidemia Common variable [...] lying d (more content not included)... Normal [facility] T4 Free Directon 10-31-2024 T4 FREE DIRECT 0.90 ng/dL Normal 0.76-1.46 [facility] Comment on above: Order Comment: Y Performed By: #### L 503.6009 #### [facility] [address] [place], [place], [address] Comprehensive Metabolic Prof ilon 10-30-2024 Albumin [Mass/Vol] 4.3 g/dL Normal 3.4-4.8 [facility] Comment on above: Order Comment: Y Performed By: #### L 503.6005 #### [facility] [address] [place], [address] Albumin/Globulin [Mass ratio] 1.8 {ratio} Normal 0.9-2.4 [facility] Comment on above: Order Comment: Y Performed By: #### L 503.6005 #### [facility] [address] [place], [address] ALK PHOS 63 U/L Normal 40-129 [facility] Comment on above: Order Comment: Y Performed By: #### L 503.6005 #### [facility] [address] [place], [address] ALT [Catalytic activity/Vol] 31 U/L Normal <=46 [facility] Comment on above: Order Comment: Y Performed By: #### L 503.6005 #### [facility] [address] [place], [address] Anion gap [Moles/Vol] 11 mmol/L Normal 5-15 [facility] Comment on above: Order Comment: Y Performed By: #### L 503.6005 #### [facility] [address] [place], [address] AST [Catalytic activity/Vol] 35 U/L Normal <=37 [facility] Comment on above: Order Comment: Y Performed By: #### L 503.6005 #### [facility] [address] [place], [address] Bilirubin [Mass/Vol] 0.52 mg/dL Normal 0.00-1.30 [facility] Comment on above: Order Comment: Y Performed By: #### L 503.6005 #### [facility] [address] [place], [address] BUN/CRE 16.3 RATIO Normal 10-20 [facility] Comment on above: Order Comment: Y Performed By: #### L 503.6005 #### [facility] [address] [place], [address] Calcium [Mass/Vol] 9.6 mg/dL Normal 7.6-11.0 [facility] Comment on above: Order Comment: Y Performed By: #### L 503.6005 #### [facility] [address] [place], [address] Chloride [Moles/Vol] 102 mmol/L Normal 96-108 [facility] Comment on above: Order Comment: Y Performed By: #### L 503.6005 #### [facility] [address] [place], [address] CO2 [Moles/Vol] 25.1 mmol/L Normal 22.0-29.0 [facility] Comment on above: Order Comment: Y Performed By: #### L 503.6005 #### [facility] [address] [place], [address] Creatinine [Mass/Vol] 1.0 mg/dL Normal 0.8-1.3 [facility] Comment on above: Order Comment: Y Performed By: #### L 503.6005 #### [facility] [address] [place], [address] GFR/1.73 sq M.predicted among non-blacks MDRD (S/P/Bld) [Vol rate/Area] 86 mL/min/{1.73_m2} Normal >60 [facility] Comment on above: Order Comment: Y Result Comment: mL/m in/1.73m2 CKD-EPI Creatinine Equation (2020) Performed By: #### L 503.6005 #### [facility] [address] [place], [address] Globulin (S) [Mass/Vol] 2.4 g/dL Normal 2.2-4.2 [facility] Comment on above: Order Comment: Y Performed By: #### L 503.6005 #### [facility] [address] [place], [address] Glucose [Mass/Vol] 80 mg/dL Normal 70-99 [facility] Comment on above: Order Comment: Y Performed By: #### L 503.6005 #### [facility] [address] [place], [address] Potassium [Moles/Vol] 4.5 mmol/L Normal 3.3-5.1 [facility] Comment on above: Order Comment: Y Performed By: #### L 503.6005 #### [facility] [address] [place], [address] Sodium [Moles/Vol] 138 mmol/L Normal 133-145 [facility] Comment on above: Order Comment: Y Performed By: #### L 503.6005 #### [facility] [address] [place], [address] T PROT 6.7 g/dL Normal 5.9-8.4 [facility] Comment on above: Order Comment: Y Performed By: #### L 503.6005 #### [facility] [address] [place], [address] Urea nitrogen [Mass/Vol] 15 mg/dL Normal 4-19 [facility] Comment on above: Order Comment: Y Performed By: #### L 503.6005 #### [facility] [address] [place], [address] Folates, (Folic Acid)on 10-06 FOLATES 32.00 ng/mL Normal 4.60-34.80 [facility] Comment on above: Order Comment: Y Result Comment: Hemo lysis, Results will be affected, Requires Recollection. Performed By: #### L 503.6005 #### [facility] [address] [place], [address] Hemoglobin A1con 10-30-2024 HbA1c (Bld) [Mass fraction] 5.8 % Normal <=5.6 [facility] Comment on above: Order Comment: CLEAN CATCH Performed By: #### L 400.0001 #### [facility] [address] [place], [address] L503.0106on 10-30-2024 Cobalamin (Vitamin B12) [Mass/Vol] 555 pg/mL Normal 180-914 [facility] Comment on above: Order Comment: Y Performed By: #### L 503.6005 #### [facility] [address] [place], [address] Thyroid Stim Hormone (TSH)on 10-30-2024 TSH 6.000 uIU/mL High 0.300-4.200 [facility] Comment on above: Order Comment: Y Performed By: #### L 503.6005 #### [facility] [address] [place], [address] Absolute lymphocyte countOrd ered By: Ethan Avendano on 10-29-2024 Lymphocytes Auto (Unsp spec) [#/Vol] 0.90 10*3/uL 0.83-4.51 [facility] Absolute neutrophil countOrd ered By: Ethan Avendano on 10-29-2024 Neutrophils (Bld) [#/Vol] 3.2 10*3/uL 2.0-7.7 [facility] Automated lymphocyte count a s percentage of total leukocytesOrdered By: Ethan Avendano on 10-29-2024 Lymphocytes/100 WBC Auto (Unsp spec) 19.3 % - [facility] BUN/creatinine ratioOrdered By: Ethan Avendano on 10-29-2024 Urea nitrogen/Creatinine [Mass ratio] 16.3 mg/mg 10- [facility] Basophil percentageOrdered B y: Ethan Avendano on 10-29-2024 Basophils/100 WBC (Bld) 0.2 % 0-1 [facility] Bilirubin, totalOrdered By: Ethan Avendano on 10-29-2024 Bilirubin [Mass/Vol] 0.52 mg/dL 0.00-1.30 [facility] CBC W/Diff, Automatedon 10-06 Absolute Lymph 0.90 X10 3/uL Normal 0.83-4.51 [facility] Comment on above: Order Comment: Y Performed By: #### L 503.6005 #### [facility] [address] [place], [address] Absolute Neut 3.2 X10 3/uL Normal 2.0-7.7 [facility] Comment on above: Order Comment: Y Performed By: #### L 503.6005 #### [facility] [address] [place], [address] Basophils/100 WBC (Bld) 0.2 % Normal 0-1 [facility] Comment on above: Order Comment: Y Performed By: #### L 503.6005 #### [facility] [address] [place], [address] Eosinophils/100 WBC (Bld) 0.0 % Normal 0-5 [facility] Comment on above: Order Comment: Y Performed By: #### L 503.6005 #### [facility] [address] [place], [address] Erythrocyte distribution width (RBC) [Ratio] 12.9 % Normal 11.6-14.6 [facility] Comment on above: Order Comment: Y Performed By: #### L 503.6005 #### [facility] [address] [place], [address] Hematocrit (Bld) [Volume fraction] 41.1 % Normal 40-54 [facility] Comment on above: Order Comment: Y Performed By: #### L 503.6005 #### [facility] [address] [place], [address] Hemoglobin (Bld) [Mass/Vol] 13.7 g/dL Normal 13.0-16.5 [facility] Comment on above: Order Comment: Y Performed By: #### L 503.6005 #### [facility] [address] [place], [address] IG% 0.400 Normal 0.0-0.9 [facility] Comment on above: Order Comment: Y Result Comment: IG% - Immature Granulocytes (promyelocytes, myelocytes and metamyelocytes) > 1% indicates that a LEFT SHIFT is Present. Performed By: #### L 503.6005 #### [facility] [address] [place], [address] Lymphocytes/100 WBC (Bld) 19.3 % Normal 19-41 [facility] Comment on above: Order Comment: Y Performed By: #### L 503.6005 #### [facility] [address] [place], [address] MCH (RBC) [Entitic mass] 30.5 pg Normal 27.0-32.0 [facility] Comment on above: Order Comment: Y Performed By: #### L 503.6005 #### [facility] [address] [place], [address] MCHC (RBC) [Mass/Vol] 33.3 g/dL Normal 32-36 [facility] Comment on above: Order Comment: Y Performed By: #### L 503.6005 #### [facility] [address] [place], [address] MCV (RBC) [Entitic vol] 91.5 fL Normal 80-94 [facility] Comment on above: Order Comment: Y Performed By: #### L 503.6005 #### [facility] [address] [place], [address] Monocytes/100 WBC (Bld) 10.7 % High 0-10 [facility] Comment on above: Order Comment: Y Performed By: #### L 503.6005 #### [facility] [address] [place], [address] Neutrophils/100 WBC (Bld) 69.4 % Normal 47-70 [facility] Comment on above: Order Comment: Y Performed By: #### L 503.6005 #### [facility] [address] [place], [address] Nucleated RBC (Bld) [#/Vol] 0 10*3/uL Normal 0-5 [facility] Comment on above: Order Comment: Y Performed By: #### L 503.6005 #### [facility] [address] [place], [address] Platelet mean volume (Bld) [Entitic vol] 11.4 fL Normal 6.2-12.0 [facility] Comment on above: Order Comment: Y Performed By: #### L 503.6005 #### [facility] [address] [place], [address] Platelets (Bld) [#/Vol] 126 10*3/uL Low 150-450 [facility] Comment on above: Order Comment: Y Performed By: #### L 503.6005 #### [facility] [address] [place], [address] RBC (Bld) [#/Vol] 4.49 10*6/uL Low 4.6-6.[address] [facility] Comment on above: Order Comment: Y Performed By: #### L 503.6005 #### [facility] [address] [place], [address] RDW SD 42.5 fl Normal 35.1-43.9 [facility] Comment on above: Order Comment: Y Performed By: #### L 503.6005 #### [facility] [address] [place], [address] WBC (Bld) [#/Vol] 4.7 10*3/uL Normal 4.4-11.0 [facility] Comment on above: Order Comment: Y Performed By: #### L [id number] #### [facility] [address] Merlos [place], [place], [id number] Carbon dioxide measurementOr dered By: Ethan Avendano on 10-29-2024 CO2 [Moles/Vol] 25.1 mmol/L 22.0-29.0 [facility] Chloride measurementOrdered By: Ethan Avendano on 10-29-2024 Chloride [Moles/Vol] 102 mmol/L 96-108 [facility] Creatinine [Moles/Vol]Ordere d By: Ethan Avendano on 10-29-2024 Creatinine [Mass/Vol] 1.0 mg/dL 0.8-1.3 [facility] Eosinophil percentageOrdered By: Ethan Avendano on 10-29-2024 Eosinophils/100 WBC (Bld) 0.0 % 0-5 [facility] Erythrocyte distribution wid th ratioOrdered By: Ethan Avendano on 10-29-2024 Erythrocyte distribution width (RBC) [Ratio] 12.9 % 11.6-14.6 [facility] Erythrocyte distribution wid th standard deviationOrdered By: Ethan Avendano on 10-29-2024 Erythrocyte distribution width (RBC) [Entitic vol] 42.5 fL 35.1-43.9 [facility] Erythrocyte distribution width (RBC) [Ratio] 42.5 fl 35.1-43.9 [facility] Folate measurementOrdered By : Ethan Avendano on 10-29-2024 Folate 32.00 ng/mL 4.60-34.80 [facility] Comment on above: Hemolysis, Results w ill be affected, Requires Recollection. GFR/1.73 sq M.predicted maxine g non-blacks MDRD (S/P/Bld) [Vol rate/Area]Ordered By: Ethan Avendano on 10-29-2024 Estimated GFR (MDRD) Non-Af Amer 86 >60 [facility] Comment on above: mL/min/1.73m2 CKD-EP I Creatinine Equation (2020) Glomerular filtration rate ( GFR) estimation/1.73 sq m using serum, plasma, or whole bOrdered By: Ethan Avendano on 02-25-2025 GFR/1.73 sq M.predicted among non-blacks MDRD (S/P/Bld) [Vol rate/Area] 86 mL/min/{1.73_m2} >60 [facility] Comment on above: mL/min/1.73m2 CKD-EP I Creatinine Equation (2020) Hematocrit Auto (Bld) [Volum e fraction]Ordered By: Ethan Avendano on 10-29-2024 Hematocrit (Bld) [Volume fraction] 41.1 % 40-54 [facility] Hemoglobin A1c percentageOrd ered By: Ethan Avendano on 10-29-2024 HbA1c (Bld) [Mass fraction] 5.8 % >5.7 [facility] Hemoglobin measurementOrdere d By: Ethan Avendano on 10-29-2024 Hemoglobin (Bld) [Mass/Vol] 13.7 g/dL 13.0-16.5 [facility] Immature granulocytes/100 WB C Auto (Bld)Ordered By: Ethan Avendano on 10-29-2024 Immature granulocytes/100 WBC (Bld) 0.400 % 0.0-0.9 [facility] Comment on above: IG% - Immature Granu locytes (promyelocytes, myelocytes and metamyelocytes) > 1% indicates that a LEFT SHIFT is Present. Laboratory - Chemistry and C hemistry - challengeOrdered By: Ethan Avendano on 10-29-2024 AST [Catalytic activity/Vol] 35 U/L <38 [facility] Cobalamin (Vitamin B12) [Mass/Vol] 555 pg/mL 180-914 [facility] Lymphocytes Auto (Unsp spec) [#/Vol]Ordered By: Ethan Avendano on 10-29-2024 Lymphocytes (Bld) [#/Vol] 0.90 10*3/uL 0.83-4.51 [facility] Lymphocytes/100 WBC Auto (Un sp spec)Ordered By: Ethan Avendano on 10-29-2024 Lymphocytes/100 WBC (Bld) 19.3 % 19-41 [facility] MCV (mean corpuscular volume ) determinationOrdered By: Ethan Avendano on 10-29-2024 MCV (RBC) [Entitic vol] 91.5 fL 80-94 [facility] Mean corpuscular hemoglobin (MCH) determinationOrdered By: Ethan Avendano on 10-29-2024 MCH (RBC) [Entitic mass] 30.5 pg 27.0-32.0 [facility] Mean corpuscular hemoglobin concentration (MCHC) determinationOrdered By: Ethan Avendano on 10-29-2024 MCHC (RBC) [Mass/Vol] 33.3 g/dL 32-36 [facility] Mean platelet volume determi nationOrdered By: Ethan Avendano on 10-29-2024 Platelet mean volume (Bld) [Entitic vol] 11.4 fL 6.2-12.0 [facility] Monocyte percentageOrdered B y: Ethan Avendano on 10-29-2024 Monocytes/100 WBC (Bld) 10.7 % High 0-10 [facility] Neutrophil percentageOrdered By: Etahn Avendano on 10-29-2024 Neutrophils/100 WBC (Bld) 69.4 % 47-70 [facility] Nucleated red blood cell per centageOrdered By: Ethan Avendano on 10-29-2024 Nucleated RBC/100 WBC (Bld) [Ratio] 0 % 0-5 [facility] Platelet countOrdered By: Abdulkadir Avendano on 10-29-2024 Platelets (Bld) [#/Vol] 126 10*3/uL Low 150-450 [facility] RBC Auto (Bld) [#/Vol]Ordere d By: Ethan Avendano on 10-29-2024 RBC (Bld) [#/Vol] 4.49 10*6/uL Low 4.6-6.[address] [facility] Serum globulin measurementOr dered By: Ethan Avendano on 10-29-2024 Globulin (S) [Mass/Vol] 2.4 g/dL 2.2-4.2 [facility] Serum glucose measurement (m ass/volume)Ordered By: Ethan Avendano on 10-29-2024 Glucose [Mass/Vol] 80 mg/dL 70-99 [facility] Serum or plasma alanine garcia otransferase (ALT) measurementOrdered By: Ethan Avendano on 10-29-2024 ALT [Catalytic activity/Vol] 31 U/L <47 [facility] Serum or plasma albumin john urement (mass/volume)Ordered By: Ethan Avendano on 10-29-2024 Albumin [Mass/Vol] 4.3 g/dL 3.4-4.8 [facility] Serum or plasma albumin/glob ulin mass ratioOrdered By: Ethan Avendano on 10-29-2024 Albumin/Globulin [Mass ratio] 1.8 {ratio} 0.9-2.4 [facility] Serum or plasma alkaline dylon sphatase measurementOrdered By: Ethan Avendano on 10-29-2024 ALP [Catalytic activity/Vol] 63 U/L 40-129 [facility] Serum or plasma anion gap de termination (moles/volume)Ordered By: Ethan Avendano on 10-29-2024 Anion gap [Moles/Vol] 11 mmol/L 5-15 [facility] Serum or plasma calcium john urement (mass/volume)Ordered By: Ethan Avendano on 10-29-2024 Calcium [Mass/Vol] 9.6 mg/dL 7.6-11.0 [facility] Serum or plasma creatinine m easurement (moles/volume)Ordered By: Ethan Avendano on 10-29-2024 Creatinine [Moles/Vol] 1.0 mg/dL 0.8-1.3 [facility] Serum or plasma potassium me asurementOrdered By: Ethan Avendano on 10-29-2024 Potassium [Moles/Vol] 4.5 mmol/L 3.3-5.1 [facility] Serum or plasma sodium measu rement (moles/volume)Ordered By: Ethan Avendano on 10-29-2024 Sodium [Moles/Vol] 138 mmol/L 133-145 [facility] Serum or plasma urea nitroge n measurement (mass/volume)Ordered By: Ethan Avendano on 10-29-2024 Urea nitrogen [Mass/Vol] 15 mg/dL 4-19 [facility] T4 freeOrdered By: Ethan cheng on 10-29-2024 Free T4 [Mass/Vol] 0.90 ng/dL 0.76-1.46 [facility] TSH DL <= 0.005 mIU/L QnOrde red By: Ethan Avendano on 10-29-2024 Thyroid Stimulating Hormone (TSH) 6.000 uIU/mL High 0.300-4.200 [facility] TSH Qn 6.000 uIU/mL High 0.300-4.200 [facility] Total proteinOrdered By: Gaby Avendano on 10-29-2024 Protein [Mass/Vol] 6.7 g/dL 5.9-8.4 [facility] White blood cell (WBC) count Ordered By: Ethan Avendano on 10-29-2024 WBC (Bld) [#/Vol] 4.7 10*3/uL 4.4-11.0 [facility] Barium Enema w/Air Contrasto n 09-11-2024 Barium Enema w/Air Contrast [facility] Imaging Services [address] [place] [address] Barium Enema w/Air Contrast MR#: [id number] Acct: [id number] Name: FRANCISCO RAMOS Rep #: [id number] : 1950 M 74 From: Derick villarreal MD PCP: Dr. Ethan Avendano MD Status: [facility] Study: Barium Enema w/Air Contrast Date of Exam: 04/28 Exam# [id number] Ordering Dr: Jameel Oseguera -[id number] STUDY: BARIUM ENEMA. REASON FOR EXAM: Male, 74 years old. Incomplete colonoscopy/tortuou s colon FLUOROSCOPY TIME (if supplied): ( 1 minute and 40 seconds ) minutes/seconds. 93.09 mGy. 7 images were obtained. 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 Following this, barium enema [...] Jameel Oseguera MD; Dr. Ethan Avendano MD [employer] Supervisor: Signed Normal [facility] Colonoscopy Reporton 024 Colonoscopy Report [facility] Medical Records Department [address] [place] [address] Colonoscopy Report MR#: [id number] Acct: [id number] Name: FRANCISCO RAMOS Rep #: [id number] : 1950 74 From: Jameel Oseguera MD PCP: Dr. Ethan Avendano MD Status:[facility] Patient Name: Francisco Ramos Procedure Date: 08/23/2024 [...] barium enema. Procedure Code(s): --- Professional --- 83395, 53, Colonoscopy, flexible; diagnostic, including collection of specimen(s) by brushing or washing, when performed (separate procedure) Diagnosis Code(s): --- Professional --- R19.5, Other fecal abnormalities Q43.8, Other specified congenital malformations of intestine CPT copyright 2021 [employer]. All rights reserved. The codes documented in this report are preliminary and upon knobber review may be revised to meet current compliance requirements. Jameel Oseguera MD 08/23/2024 8:53:45 AM This report has been signed electronically. Number of Addenda: 0 Note Initiated On: 08/23/2024 8:12 AM 08/23/2454 Date Jameel Oseguera MD Cosigner Signature: Date (if indicated) CC: Dr. Jameel Oseguera MD; Dr. Ethan Avendano MD Date Dictated: 08/23/24811 Date Transcribed: [employer] Supervisor: HELLEN Signed [facility] MR/POSTOP.Ladan 08-23-2024 MR/POSTOP.[facility] Medical Records Department [address] [place] [address] Anesthesia Postop Eval I 08/23/2459 MR#: [id number] Acct: [id number] Name: RICHARDFRANCISCO ALBARRAN Rep #: [id number] : 1950 74 From: Herman Villa PCP: Dr. Ethan Avendano MD Status:[facility] Y Race: C Location: [place] [address] Anesthesia: Postop Eval I Current Vital Signs [...] Herman Lemosignabdulkadir Signature: Date CC: Signed Normal [facility] MR/[id number] 08-23-2024 /[facility] Medical Records Department [address] [place] [address] Anesthesia Postop Eval II 08/23/24910 MR#: [id number] Acct: [id number] Name: FRANCISCO RAMOS Rep #: [id number] : 1950 74 From: Aleksandar Hudson MD PCP: Dr. Ethan Avendano MD Status:[facility] Y Race: C Location: [place] [address] Anesthesia Postop Eval I Sum Postop Eval [...] Date Aleksandar Cruz Signature: Date CC: Signed [facility] Medical Records Department [address] [place] [address] PAT - Anesthesia 08/22/24 1525 MR#: [id number] Acct: [id number] Name: FRANCISCO RAMOS Rep #: [id number] : 1950 74 From: Sage Tracey MD PCP: Dr. 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: Anesthesia History - assurance engineer Hx Hospitalization No 08/22/24 10:23 Any Problems [...] take am of surgery PONV PONV - assurance engineer: PONV - assurance engineer Female No 08/22/24 10:23 HX of Motion [...] 07/11/24 11:11 Respiratory Assessment Respiratory Assessment - assurance engineer: Respiratory Tract Infection Hx - assurance engineer Hx Respiratory Tract Infection No 08/22/24 10:23 STOP Sleep Apnea STOP Sleep Apnea - assurance engineer: STOP Sleep Apnea - assurance engineer Hx Hypertension No 08/22/24 10:23 Hx Sleep [...] Tobacco Use History Tobacco Use History - assurance engineer: Tobacco Use History - assurance engineer Tobacco Use Smoking Status Never smoker 08/22/24 10:23 Hx Tobacco Use No 08/22/24 10:23 Years Smoking Packs Smoked per Day Smoking Cessation Date was within the last 15 years Hx Smoking Cessation Date Hx Smoking Cessation Counseling Hematologic Medial History Hematologic Hx - assurance engineer: 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 Hx of Blood Transfusion No 08/22/24 10:23 [...] /Reproduct ion History /Reproduct scott History - assurance engineer: /Reproduct scott Hx- assurance engineer Hx Now No 08/22/24 10:23 Gestational Age (in weeks): EDC: Hx Hx Para Hx Section SAB No 08/22/24 10:23 [facility] Medical History (Updated 08/22/24 @ 10:37 by Bebe Nava) Wears glasses Arthritis High cholesterol Easy bruising Back pain Non-smoker History of pain when walking History of echocardiogram History of stress test Cardiology follow-up encounter Parkinson disease Atherosclerosis of coronary artery of [place] heart without angina pectoris Hyperlipidemia Common variable immunodeficiency Benign prostate hyperplasia Basal cell carcinoma of left ear Home Medications ???Medication ???Instructions ???Recorded ???Last Taken ???Type multivitamin with folic acid 400 1 tab PO DAILY 06/10/13 08/19/24 History mcg tablet folic acid 400 mcg tablet 1 tab PO DAILY 12/24/13 Unknown History immune glob,gamma(IgG) 10 20 g .Route .[id number] 03/04/19 Unknown History qiyc-evl-gvrz-IgA 0 to 50 mcg/mL IV solution nitroglycerin 0.4 mg sublingual 0.4 mg sublingual Q5-15M PRN chest 04/03/19 Unknown Rx tablet pain #25 tabs celecoxib 200 mg capsule 200 mg PO BID 06/04 (more content not included)... Normal [facility] Surgery Visit Reporton 07-10 Surgery Visit Report [facility] [address] [place] [address] OFFICE VISIT Date of Service: 07/10/24 MR#: [id number] Acct: [id number] Name: FRANCISCO RAMOS Rep #: [id number] : 1950 Provider: Dr. Jameel workman MD Age/Sex: 74/M Location: [facility] Status: Signed Intake Vital Signs 06/06/24 10:48 [...] History immune glob,gamma(IgG) 10 20 g .Route .[id number] 03/04/19 07/10/24 History aukn-caw-witq-IgA 0 to 50 mcg/mL IV solution nitroglycerin [...] chest CT Atherosclerosis of coronary artery of [place] heart without angina pectoris Basal cell carcinoma [...] No heada (more content not included)... Normal [facility] Absolute lymphocyte countOrd ered By: Ethansyeda Avendano on 11-16-2023 Lymphocytes Auto (Unsp spec) [#/Vol] 0.84 10*3/uL 0.83-4.51 [facility] Automated lymphocyte count a s percentage of total leukocytesOrdered By: Ethan Avendano on 11-16-2023 Lymphocytes/100 WBC Auto (Unsp spec) 22.5 % 19-41 [facility] Basophil percentageOrdered B y: Ethan Avendano on 11-16-2023 Basophils/100 WBC (Bld) 0.0 % 0-1 [facility] Bilirubin [Mass/Vol] 0.70 mg/dL 0.20-1.00 [facility] Comment on above: For patients on eltr ombopag therapy, use of Dimension [place] TBIL is not recommended. Chloride [Moles/Vol] 104 mmol/L 98-107 [facility] Cholesterol [Mass/Vol] 93 mg/dL <200 [facility] Comment on above: <200 mg/dL Desirable 200-240 mg/dL Borderline >240 mg/dL High Risk Eosinophils/100 WBC (Bld) 0.0 % 0-5 [facility] Glucose [Mass/Vol] 90 mg/dL 74-106 [facility] Hemoglobin (Bld) [Mass/Vol] 13.1 g/dL 13.0-16.5 [facility] Monocytes/100 WBC (Bld) 11.5 % 0-10 [facility] Neutrophils (Bld) [#/Vol] 2.5 10*3/uL 2.0-7.7 [facility] Neutrophils/100 WBC (Bld) 65.7 % 47-70 [facility] Potassium [Moles/Vol] 4.0 mmol/L 3.5-5.1 [facility] Protein [Mass/Vol] 6.8 g/dL 6.4-8.2 [facility] Sodium [Moles/Vol] 139 mmol/L 136-145 [facility] Triglyceride [Mass/Vol] 123 mg/dL <199 [facility] Comment on above: The drugs N-Acetylcy steine and Metamizole may falsely depress this assay.Serum Triglycerides Reference Interval Normal <150 mg/dL Borderline high 150 - 199 mg/dL High 200 - 499 mg/dL Very High > or = 500 mg/dL WBC (Bld) [#/Vol] 3.7 10*3/uL 4.4-11.0 [facility] Determination of erythrocyte mean corpuscular volume (MCV)Ordered By: Ethan Avendano on 11-16-2023 MCV (RBC) [Entitic vol] 92.2 fL 80-94 [facility] Erythrocyte distribution wid th ratioOrdered By: Ethan Avendano on 11-16-2023 Erythrocyte distribution width (RBC) [Ratio] 13.2 % 11.6-14.6 [facility] Erythrocyte distribution wid th standard deviationOrdered By: Ethan Avendano on 11-16-2023 Erythrocyte distribution width (RBC) [Entitic vol] 45.0 fL 35.1-43.9 [facility] Hematocrit Auto (Bld) [Volum e fraction]Ordered By: Ethan Avendano on 11-16-2023 Hematocrit (Bld) [Volume fraction] 40.3 % 40-54 [facility] Immature granulocytes/100 WB C Auto (Bld)Ordered By: Ehtan Avendano on 11-16-2023 Immature granulocytes/100 WBC (Bld) 0.300 % 0.0-0.9 [facility] Comment on above: IG% - Immature Granu locytes (promyelocytes, myelocytes and metamyelocytes) > 1% indicates that a LEFT SHIFT is Present. Laboratory - Chemistry and C hemistry - challengeOrdered By: Ethan Avendano on 11-16-2023 Albumin/Globulin [Mass ratio] 1.1 {ratio} 0.9-2.4 [facility] ALP [Catalytic activity/Vol] 54 U/L 45-117 [facility] ALT [Catalytic activity/Vol] 26 U/L 16-61 [facility] Cholesterol in HDL [Mass/Vol] 31 mg/dL >40 [facility] Comment on above: The drugs N-Acetylcy steine and Metamizole may falsely depress this assay. Reference Range HDL <40 mg/dL Low HDL Cholesterol HDL >or= 60 mg/dL High HDL Cholesterol Cholesterol in LDL [Mass/Vol] 37 mg/dL 0-130 [facility] CO2 [Moles/Vol] 28.0 mmol/L 21.0-32.0 [facility] Globulin (S) [Mass/Vol] 3.2 g/dL 2.2-4.2 [facility] Urea nitrogen/Creatinine [Mass ratio] 19.2 mg/mg 10-20 [facility] - Hematology and Cell countsOrdered By: Ethan Avendano on 11-16-2023 MCH (RBC) [Entitic mass] 30.0 pg 27.0-32.0 [facility] MCHC (RBC) [Mass/Vol] 32.5 g/dL 32-36 [facility] Nucleated RBC/100 WBC (Bld) [Ratio] 0 % 0-5 [facility] Platelet mean volume (Bld) [Entitic vol] 11.8 fL 6.2-12.0 [facility] Platelets (Bld) [#/Vol] 103 10*3/uL 150-450 [facility] No Panel InformationOrdered By: Ethan Avendano on 11-16-2023 Estimated GFR (MDRD) Amer 109 mL/min >60 [facility] Comment on above: GFR Calc Estimated GFR (MDRD) Non-Af Amer 90 mL/min >60 [facility] Comment on above: Non- GFR Calc VLDL Cholesterol 25 mg/dL 5-40 [facility] RBC Auto (Bld) [#/Vol]Ordere d By: Ethan Avendano on 11-16-2023 RBC (Bld) [#/Vol] 4.37 10*6/uL 4.6-6.[address] [facility] Serum or plasma calcium john urement (mass/volume)Ordered By: Ethan Avendano on 11-16-2023 Calcium [Mass/Vol] 9.1 mg/dL 8.5-10.1 [facility] Serum or plasma creatinine m easurement (mass/volume)Ordered By: Ethan Avendano on 11-16-2023 Creatinine [Mass/Vol] 0.89 mg/dL 0.70-1.30 [facility] Comment on above: The validity of the calculated GFR & GFRAA in patients over 70 years has not been determined. Clinical correlation is essential. Serum or plasma urea nitroge n measurement (mass/volume)Ordered By: Ethan Avendano on 11-16-2023 Urea nitrogen [Mass/Vol] 17 mg/dL 7-18 [facility] Thin prep Papanicolaou smear with manual screeningOrdered By: Ethan Avendano on 11-16-2023 Thin prep Papanicolaou smear with manual screening 3.6 g/dL 3.2-5.0 [facility] Thin prep Papanicolaou smear with manual screening 26 U/L 15-37 [facility] Thin prep Papanicolaou smear with manual screening 7 5-15 [facility] CNTHERAPYon 10-06-2023 CNTHERAPY OT/PT/Speech Visit (OTNOCA) ---- FRANCISCO RAMOS ([id number]) 1950 M Date Time Provider Department 10/06/23 1:30 PM FLORENCE EUGENE Date Time Provider Department Center 10/06/2023 1:30 PM [id number], JULIE A [facility] N Reason for Visit: OT Discharge [...] tablet daily. Letter Text Letter Text Normal [facility] No Panel InformationOrdered By: Blaine Lee on 03-23-2023 Prostate Specific Antigen Screen 4.24 ng/mL 0.00-4.00 [facility] Comment on above: This test was perfor med using the TPSA assay method for theDimenuniversity of [place] health chemistry system. Values obtained with differentassay methods cannot be used interchangably.When changing PSA assays in the course of monitoring apatient, additional sequential testing should be carriedout to confirm baseline values. Basophil percentageOrdered B y: Lory He on 02-01-2023 Bilirubin [Mass/Vol] 0.50 mg/dL 0.20-1.00 [facility] Comment on above: For patients on eltr ombopag therapy, use of Dimension [place] TBIL is not recommended. Cholesterol [Mass/Vol] 82 mg/dL <200 [facility] Comment on above: <200 mg/dL Desirable 200-240 mg/dL Borderline >240 mg/dL High Risk Protein [Mass/Vol] 6.9 g/dL 6.4-8.2 [facility] Triglyceride [Mass/Vol] 93 mg/dL <199 [facility] Comment on above: The drugs N-Acetylcy steine and Metamizole may falsely depress this assay.Serum Triglycerides Reference Interval Normal <150 mg/dL Borderline high 150 - 199 mg/dL High 200 - 499 mg/dL Very High > or = 500 mg/dL Direct bilirubinOrdered By: Lory He on 02-01-2023 Bilirubin.direct [Mass/Vol] 0.12 mg/dL 0.00-0.30 [facility] Laboratory - Chemistry and C hemistry - challengeOrdered By: Lory He on 02-01-2023 ALP [Catalytic activity/Vol] 71 U/L 45-117 [facility] ALT [Catalytic activity/Vol] 15 U/L 16-61 [facility] Globulin (S) [Mass/Vol] 3.4 g/dL 2.2-4.2 [facility] Serum or plasma albumin john urement (mass/volume)Ordered By: Lory He on 02-01-2023 Albumin [Mass/Vol] 3.5 g/dL 3.2-5.0 [facility] Serum or plasma cholesterol in HDL measurement (mass/volume)Ordered By: Lory He on 02-01-2023 Cholesterol in HDL [Mass/Vol] 29 mg/dL >40 [facility] Comment on above: The drugs N-Acetylcy steine and Metamizole may falsely depress this assay. Reference Range HDL <40 mg/dL Low HDL Cholesterol HDL >or= 60 mg/dL High HDL Cholesterol Serum or plasma cholesterol in VLDL measurement (mass/volume)Ordered By: Lory He on 02-01-2023 Cholesterol in VLDL [Mass/Vol] 19 mg/dL 5-40 [facility] Serum or plasma low density lipoprotein (LDL) cholesterol measurement (mass/volume)Ordered By: Lory He on 02-01-2023 Cholesterol in LDL [Mass/Vol] 34 mg/dL 0-130 [facility] Thin prep Papanicolaou smear with manual screeningOrdered By: Lory He on 02-01-2023 Thin prep Papanicolaou smear with manual screening 30 U/L 15-37 [facility] CNOVon 12-29-2022 CNOV Office Visit (NRMDN) ---- FRANCISCO RAMOS ([id number]) 1950 M Date Time Provider Department 12/29/22 [...] or you can send a message through [email or web address]. You can also now schedule and select appointments through [email or web address]. MD Latisha Ta MD 12/29/2022 10:53 AM [...] last fall. torn rotator cuff. [employer]- spectates more than helping Difficulties turning [...] for Fa (more content not included)... Normal [facility] Absolute lymphocyte countOrd ered By: Dr. Avendano on 07-07-2022 Lymphocytes Auto (Unsp spec) [#/Vol] 0.77 10*3/uL 0.83-4.51 [facility] Basophil percentageOrdered B y: Dr. Avendano on 07-07-2022 Basophils/100 WBC (Bld) 0.0 % 0-1 [facility] Bilirubin [Mass/Vol] 0.50 mg/dL 0.20-1.00 [facility] Comment on above: For patients on eltr ombopag therapy, use of Dimension [place] TBIL is not recommended. Chloride [Moles/Vol] 104 mmol/L 98-107 [facility] Eosinophils/100 WBC (Bld) 0.0 % 0-5 [facility] Glucose [Mass/Vol] 114 mg/dL 74-106 [facility] Comment on above: Fasting Glucose resu lt from 100 to 125 mg/dL suggests IMPAIRED HOMEOSTASIS per A.D.A. criteria. Neutrophils (Bld) [#/Vol] 3.7 10*3/uL 2.0-7.7 [facility] Neutrophils/100 WBC (Bld) 74.9 % 47-70 [facility] Potassium [Moles/Vol] 4.3 mmol/L 3.5-5.1 [facility] Protein [Mass/Vol] 6.8 g/dL 6.4-8.2 [facility] Sodium [Moles/Vol] 136 mmol/L 136-145 [facility] WBC (Bld) [#/Vol] 4.9 10*3/uL 4.4-11.0 [facility] Blood erythrocytes count (nu mber/volume)Ordered By: Dr. Avendano on 07-07-2022 RBC (Bld) [#/Vol] 4.38 10*6/uL 4.6-6.[address] [facility] Blood hemoglobin measurement (mass/volume)Ordered By: Dr. Avendano on 07-07-2022 Hemoglobin (Bld) [Mass/Vol] 13.8 g/dL 13.0-16.5 [facility] Blood lymphocytes/100 leukoc ytesOrdered By: Dr. Avendano on 07-07-2022 Lymphocytes/100 WBC (Bld) 15.6 % 19-41 [facility] Blood monocytes/100 leukocyt esOrdered By: Dr. Avendano on 07-07-2022 Monocytes/100 WBC (Bld) 9.1 % 0-10 [facility] Blood platelet mean volumeOr dered By: Dr. Avendano on 07-07-2022 Platelet mean volume (Bld) [Entitic vol] 12.0 fL 6.2-12.0 [facility] Determination of erythrocyte mean corpuscular volume (MCV)Ordered By: Dr. Avendano on 07-07-2022 MCV (RBC) [Entitic vol] 94.1 fL 80-94 [facility] Hematocrit Auto (Bld) [Volum e fraction]Ordered By: Dr. Avendano on 07-07-2022 Hematocrit (Bld) [Volume fraction] 41.2 % 40-54 [facility] Laboratory - Chemistry and C hemistry - challengeOrdered By: Dr. Avendano on 07-07-2022 ALP [Catalytic activity/Vol] 59 U/L 45-117 [facility] ALT [Catalytic activity/Vol] 39 U/L 16-61 [facility] CO2 [Moles/Vol] 29.0 mmol/L 21.0-32.0 [facility] Globulin (S) [Mass/Vol] 3.1 g/dL 2.2-4.2 [facility] Urea nitrogen/Creatinine [Mass ratio] 28.5 mg/mg 10-20 [facility] - Hematology and Cell countsOrdered By: Dr. Avendano on 07-07-2022 Erythrocyte distribution width (RBC) [Entitic vol] 43.1 fL 35.1-43.9 [facility] Erythrocyte distribution width (RBC) [Ratio] 12.4 % 11.6-14.6 [facility] Immature granulocytes/100 WBC (Bld) 0.400 % 0.0-0.9 [facility] Comment on above: IG% - Immature Granu locytes (promyelocytes, myelocytes and metamyelocytes) > 1% indicates that a LEFT SHIFT is Present. MCH (RBC) [Entitic mass] 31.5 pg 27.0-32.0 [facility] Nucleated RBC/100 WBC (Bld) [Ratio] 0 % 0-5 [facility] MCHC Auto (RBC) [Mass/Vol]Or dered By: Dr. Avendano on 07-07-2022 MCHC (RBC) [Mass/Vol] 33.5 g/dL 32-36 [facility] No Panel InformationOrdered By: Dr. Avendano on 07-07-2022 Estimated GFR (MDRD) Amer 135 mL/min >60 [facility] Comment on above: GFR Calc Estimated GFR (MDRD) Non-Af Amer 112 mL/min >60 [facility] Comment on above: Non- GFR Calc Platelets bldOrdered By: Dr. Avendano on 07-07-2022 Platelets (Bld) [#/Vol] 112 10*3/uL 150-450 [facility] Serum or plasma albumin john urement (mass/volume)Ordered By: Dr. Avendano on 07-07-2022 Albumin [Mass/Vol] 3.7 g/dL 3.2-5.0 [facility] Serum or plasma albumin/glob ulin mass ratioOrdered By: Dr. Avendano on 07-07-2022 Albumin/Globulin [Mass ratio] 1.2 {ratio} 0.9-2.4 [facility] Serum or plasma calcium john urement (mass/volume)Ordered By: Dr. Avendano on 07-07-2022 Calcium [Mass/Vol] 9.2 mg/dL 8.5-10.1 [facility] Serum or plasma creatinine m easurement (mass/volume)Ordered By: Dr. Avendano on 07-07-2022 Creatinine [Mass/Vol] 0.74 mg/dL 0.70-1.30 [facility] Comment on above: The validity of the calculated GFR & GFRAA in patients over 70 years has not been determined. Clinical correlation is essential. Serum or plasma urea nitroge n measurement (mass/volume)Ordered By: Dr. Avendano on 07-07-2022 Urea nitrogen [Mass/Vol] 21 mg/dL 7-18 [facility] Thin prep Papanicolaou smear with manual screeningOrdered By: Dr. Avendano on 07-07-2022 Thin prep Papanicolaou smear with manual screening 26 U/L 15-37 [facility] Thin prep Papanicolaou smear with manual screening 3 5-15 [facility] Absolute immature granulocyt e counton 12-02-2021 Immature granulocytes (Bld) [#/Vol] 0 10*3/uL 0.0-0.1 [facility] Work Phone: Absolute lymphocyte counton 12-02-2021 Lymphocytes Auto (Unsp spec) [#/Vol] 0.87 10*3/uL 0.83-4.51 [facility] Work Phone: Lymphocytes Auto (Unsp spec) [#/Vol] 1.0 10*3/uL 0.7-3.1 [facility] Work Phone: Basophil percentageon 2021 Basophils/100 WBC (Bld) 0.2 % 0-1 [facility] Work Phone: Bilirubin [Mass/Vol] 0.70 mg/dL 0.20-1.00 [facility] Work Phone: Comment on above: For patients on eltr ombopag therapy, use of Dimension [place] TBIL is not recommended. Chloride [Moles/Vol] 106 mmol/L 98-107 [facility] Work Phone: Cholesterol [Mass/Vol] 80 mg/dL <200 [facility] Work Phone: [phone] Comment on above: <200 mg/dL Desirable 200-240 mg/dL Borderline >240 mg/dL High Risk Eosinophils/100 WBC (Bld) 0.0 % 0-5 [facility] Work Phone: [phone] Glucose [Mass/Vol] 94 mg/dL 74-106 [facility] Work Phone: [phone] Monocytes (Bld) [#/Vol] 0.4 10*3/uL 0.1-0.9 [facility] Work Phone: [phone] Neutrophils (Bld) [#/Vol] 4.2 10*3/uL 2.0-7.7 [facility] Work Phone: [phone] Neutrophils (Bld) [#/Vol] 4.4 10*3/uL 1.4-7.0 [facility] Work Phone: [phone] Neutrophils/100 WBC (Bld) 75.8 % 47-70 [facility] Work Phone: Potassium [Moles/Vol] 4.3 mmol/L 3.5-5.1 [facility] Work Phone: [phone] Protein [Mass/Vol] 6.8 g/dL 6.4-8.2 [facility] Work Phone: [phone] Sodium [Moles/Vol] 136 mmol/L 136-145 [facility] Work Phone: [phone] Triglyceride [Mass/Vol] 99 mg/dL <199 [facility] Work Phone: Comment on above: The drugs N-Acetylcy steine and Metamizole may falsely depress this assay.Serum Triglycerides Reference Interval Normal <150 mg/dL Borderline high 150 - 199 mg/dL High 200 - 499 mg/dL Very High > or = 500 mg/dL WBC (Bld) [#/Vol] 5.9 10*3/uL 3.4-10.8 [facility] Work Phone: Basophils/100 WBC Auto (Bld) on 12-02-2021 Basophils/100 WBC (Bld) 0 % Not Estab. [facility] Work Phone: Blood basophils count (numbe r/volume)on 12-02-2021 Basophils (Bld) [#/Vol] 0 10*3/uL 0.0-0.2 [facility] Work Phone: Blood eosinophils count (num nadiya/volume)on 12-02-2021 Eosinophils (Bld) [#/Vol] 0 10*3/uL 0.0-0.4 [facility] Work Phone: Blood hematocrit (volume fra ction)on 12-02-2021 Hematocrit (Bld) [Volume fraction] 41.1 % 37.5-51.0 [facility] Work Phone: Blood hemoglobin measurement (mass/volume)on 12-02-2021 Hemoglobin (Bld) [Mass/Vol] 13.6 g/dL 13.0-17.7 [facility] Work Phone: Blood immature cells/100 sherita kocyteson 12-02-2021 Immature cells/100 WBC (Bld) TNP [facility] Work Phone: Comment on above: Test not performed Blood immature granulocytes/ 100 leukocyteson 12-02-2021 Immature granulocytes/100 WBC (Bld) 0 % Not Estab. [facility] Work Phone: Blood lymphocytes/100 leukoc yteson 12-02-2021 Lymphocytes/100 WBC (Bld) 15.7 % 19-41 [facility] Work Phone: Blood monocytes/100 leukocyt eson 12-02-2021 Monocytes/100 WBC (Bld) 7.8 % 0-10 [facility] Work Phone: Blood platelet mean volumeon 12-02-2021 Platelet mean volume (Bld) [Entitic vol] 11.9 fL 6.2-12.0 [facility] Work Phone: CD3+CD8+ (T8 suppressor cell s) cells/100 cells (Bld)on 12-02-2021 CD3+CD8+ (T8 suppressor cells) cells (Bld) [#/Vol] 323 /uL 109-897 [facility] Work Phone: Count of whole blood cells p ositive for CD3 and CD4 antigens (number/volume)on 12-02-2021 CD3+CD4+ (T4 helper) cells (Bld) [#/Vol] 284 /uL [phone] [facility] Work Phone: Eosinophils/100 WBC Auto (Bl d)on 12-02-2021 Eosinophils/100 WBC (Bld) 0 % Not Estab. [facility] Work Phone: Erythrocyte distribution wid th ratioon 12-02-2021 Erythrocyte distribution width (RBC) [Ratio] 13.0 % 11.6-15.4 [facility] Work Phone: Interpretation of morphologi c examination of blood (narrative result)on 12-02-2021 Morphology Fritz (Bld) [Interp] TNP [facility] Work Phone: Comment on above: Test not performed Laboratory - Chemistry and C hemistry - challengeon 12-02-2021 ALP [Catalytic activity/Vol] 65 U/L 45-117 [facility] Work Phone: ALT [Catalytic activity/Vol] 15 U/L 16-61 [facility] Work Phone: CO2 [Moles/Vol] 26.0 mmol/L 21.0-32.0 [facility] Work Phone: Globulin (S) [Mass/Vol] 3.1 g/dL 2.2-4.2 [facility] Work Phone: Urea nitrogen/Creatinine [Mass ratio] 26.2 mg/mg 10-20 [facility] Work Phone: Laboratory - Hematology and Cell countson 12-02-2021 Erythrocyte distribution width (RBC) [Entitic vol] 43.1 fL 35.1-43.9 [facility] Work Phone: Erythrocyte distribution width (RBC) [Ratio] 12.8 % 11.6-14.6 [facility] Work Phone: Immature granulocytes/100 WBC (Bld) 0.500 % 0.0-0.9 [facility] Work Phone: Comment on above: IG% - Immature Granu locytes (promyelocytes, myelocytes and metamyelocytes) > 1% indicates that a LEFT SHIFT is Present. Nucleated RBC/100 WBC (Bld) [Ratio] 0 % 0-5 [facility] Work Phone: Lymphocytes/100 WBC Auto (Bl d)on 12-02-2021 Lymphocytes/100 WBC (Bld) 18 % Not Estab. [facility] Work Phone: MCHC Auto (RBC) [Mass/Vol]on 12-02-2021 MCHC (RBC) [Mass/Vol] 33.1 g/dL 31.5-35.7 [facility] Work Phone: Neutrophils Auto (Bld) [#/Vo l]on 12-02-2021 Neutrophils/100 WBC (Bld) 75 % Not Estab. [facility] Work Phone: No Panel Informationon 12-02 Estimated GFR (MDRD) Amer 116 mL/min >60 [facility] Work Phone: Comment on above: GFR Calc Estimated GFR (MDRD) Non-Af Amer 96 mL/min >60 [facility] Work Phone: Comment on above: Non- GFR Calc Prostate Specific Antigen Total 3.21 ng/mL 0.0-4.0 [facility] Work Phone: Comment on above: This test was perfor med using the TPSA assay method for [employer] chemistry system. Values obtained with differentassay methods cannot be used interchangably.When changing PSA assays in the course of monitoring apatient, additional sequential testing should be carriedout to confirm baseline values. Percentage of whole blood ce lls positive for CD3 and CD4 antigenson 12-02-2021 CD3+CD4+ (T4 helper) cells/100 cells (Bld) 28.4 % 30.8-58.5 [facility] Work Phone: Percentage of whole blood ce lls positive for CD3 and CD8 antigenson 12-02-2021 CD3+CD8+ (T8 suppressor cells) cells/100 cells (Bld) 32.3 % 12.0-35.5 [facility] Work Phone: Platelets bldon 12-02-2021 Platelets (Bld) [#/Vol] 103 10*3/uL 150-450 [facility] Work Phone: RBC Auto (Bld) [#/Vol]on RBC (Bld) [#/Vol] 4.41 10*6/uL 4.14-5.[address] [facility] Work Phone: Ratio of whole blood cells p ositive for CD3 and CD4 antigens to cells positive for CDon 12-02-2021 CD3+CD4+ (T4 helper) cells/CD3+CD8+ (T8 suppressor cells) cells (Bld) [# ratio] 0.88 % 0.92-3.72 [facility] Work Phone: Serum or plasma IgA measurem ent (mass/volume)on 12-02-2021 IgA [Mass/Vol] mg/dL 61-437 [facility] Work Phone: Comment on above: Result confirmed on concentration. Serum or plasma IgG measurem ent (mass/volume)on 12-02-2021 IgG [Mass/Vol] 723 mg/dL [phone] [facility] Work Phone: Serum or plasma IgM measurem ent (mass/volume)on 12-02-2021 IgM [Mass/Vol] mg/dL 20-172 [facility] Work Phone: Comment on above: Result confirmed on concentration.Performed at: [place] [id number] Director: Rm Tyson PhD, Phone: [phone] Serum or plasma albumin john urement (mass/volume)on 12-02-2021 Albumin [Mass/Vol] 3.7 g/dL 3.2-5.0 [facility] Work Phone: Serum or plasma albumin/glob ulin mass ratioon 12-02-2021 Albumin/Globulin [Mass ratio] 1.2 {ratio} 0.9-2.4 [facility] Work Phone: Serum or plasma calcium john urement (mass/volume)on 12-02-2021 Calcium [Mass/Vol] 8.8 mg/dL 8.5-10.1 [facility] Work Phone: Serum or plasma cholesterol in HDL measurement (mass/volume)on 12-02-2021 Cholesterol in HDL [Mass/Vol] 27 mg/dL >40 [facility] Work Phone: Comment on above: The drugs N-Acetylcy steine and Metamizole may falsely depress this assay. Reference Range HDL <40 mg/dL Low HDL Cholesterol HDL >or= 60 mg/dL High HDL Cholesterol Serum or plasma cholesterol in VLDL measurement (mass/volume)on 12-02-2021 Cholesterol in VLDL [Mass/Vol] 20 mg/dL 5-40 [facility] Work Phone: Serum or plasma creatinine m easurement (mass/volume)on 12-02-2021 Creatinine [Mass/Vol] 0.84 mg/dL 0.70-1.30 [facility] Work Phone: Comment on above: The validity of the calculated GFR & GFRAA in patients over 70 years has not been determined. Clinical correlation is essential. Serum or plasma low density lipoprotein (LDL) cholesterol measurement (mass/volume)on 12-02-2021 Cholesterol in LDL [Mass/Vol] 33 mg/dL 0-130 [facility] Work Phone: Serum or plasma urea nitroge n measurement (mass/volume)on 12-02-2021 Urea nitrogen [Mass/Vol] 22 mg/dL 7-18 [facility] Work Phone: [phone] Thin prep Papanicolaou smear with manual screeningon 12-02-2021 Thin prep Papanicolaou smear with manual screening 34 U/L 15-37 [facility] Work Phone: Thin prep Papanicolaou smear with manual screening 4 5-15 [facility] Work Phone: Thin prep Papanicolaou smear with manual screening 93 fL 79-97 [facility] Work Phone: Thin prep Papanicolaou smear with manual screening 30.8 pg 26.6-33.0 [facility] Work Phone: Thin prep Papanicolaou smear with manual screening 7 % Not Estab. [facility] Work Phone: NM BRAIN DATSCANon 9 [...] Date: 08/08/2019 8:56:11 AM Ordering Provider:Aureliano Trivedi [facility] ([place]) Vital Signs Date Time Vital Sign Value Performing Clinician Facility 06-04-2025 13:21-0400 Body height 167.[address] Ethan Avendano MD Work Phone: 3(457)852-027677 [place] [address] 06-04-2025 13:21-0400 Body mass index (BMI) [Ratio] 22.6 kg/m2 Dr. Ethan Avendano MD Work Phone: 1(680)729-722677 [place] [address] 06-04-2025 13:21-0400 Body temperature 96 [degF] Dr. Ethan Avendano MD Work Phone: 9(187)141-511377 [place] [address] 06-04-2025 13:21-0400 Body weight 63.[address] Ethan Avendano MD Work Phone: 9(860)069-557477 [place] [address] 06-04-2025 13:21-0400 Diastolic blood pressure 75 mm[Hg] Dr. Ethan Avendano MD Work Phone: 4(662)377-067277 [place] [address] 06-04-2025 13:21-0400 Heart rate 77 /min Dr. Ethan Avendano MD Work Phone: 4(844)574-779977 [place] [address] 06-04-2025 13:21-0400 Respiratory rate 16 /min Dr. Ethan Avendano MD Work Phone: 6(234)541-881177 [place] [address] 06-04-2025 13:21-0400 Systolic blood pressure 111 mm[Hg] Dr. Ethan Avendano MD Work Phone: 5(058)140-428877 [place] [address] 05-15-2025 01:33-0400 Body temperature 97.6 [degF] Dr. Ethan Avendano MD Work Phone: 3(563)015-163977 [place] [address] 05-15-2025 01:33-0400 Diastolic blood pressure 80 mm[Hg] Dr. Ethan Avendano MD Work Phone: 4(268)434-679077 [place] [address] 05-15-2025 01:33-0400 Heart rate 80 /min Dr. Ethan Avendano MD Work Phone: 5(069)343-497077 [place] [address] 05-15-2025 01:33-0400 Respiratory rate 16 /min Dr. Ethan Avendano MD Work Phone: 9(287)533-593277 [place] [address] 05-15-2025 01:33-0400 SaO2% (BldA) [Mass fraction] 98 % Dr. Ethan Avendano MD Work Phone: 4(412)306-969377 [place] [address] 05-15-2025 01:33-0400 Systolic blood pressure 140 mm[Hg] Dr. Ehtan Avendano MD Work Phone: 8(540)290-564277 [place] [address] 05-14-2025 21:36-0400 Body height 170.[address] Ethan Avendano MD Work Phone: 3(015)783-445177 [place] [address] 05-14-2025 21:36-0400 Body mass index (BMI) [Ratio] 22.6 kg/m2 Dr. Ethan Avendano MD Work Phone: 3(255)000-590377 [place] [address] 05-14-2025 21:36-0400 Body weight 65.[address] Ethan Avendano MD Work Phone: 2(458)311-861377 [place] [address] 05-07-2025 13:22-0400 Body height 170.[address] Ethan Avendano MD Work Phone: 4(822)168-646177 [place] [address] 05-07-2025 13:22-0400 Body mass index (BMI) [Ratio] 21.9 kg/m2 Dr. Ethan Avendano MD Work Phone: 0(342)679-756777 [place] [address] 05-07-2025 13:22-0400 Body temperature 96.7 [degF] Dr. Ethan Avendano MD Work Phone: 0(994)373-875577 [place] [address] 05-07-2025 13:22-0400 Body weight 63.[address] Ethan Avendano MD Work Phone: 6(307)243-413277 [place] [address] 05-07-2025 13:22-0400 Diastolic blood pressure 67 mm[Hg] Dr. Ethan Avendano MD Work Phone: 7(731)257-383477 [place] [address] 05-07-2025 13:22-0400 Heart rate 86 /min Dr. Ethan Avendano MD Work Phone: 8(044)873-590777 [place] [address] 05-07-2025 13:22-0400 Respiratory rate 16 /min Dr. Ethan Avendano MD Work Phone: 7(704)702-283777 [place] [address] 05-07-2025 13:22-0400 SaO2% (BldA) [Mass fraction] 100 % Dr. Ethan Avendano MD Work Phone: 5(371)721-510477 [place] [address] 05-07-2025 13:22-0400 Systolic blood pressure 129 mm[Hg] Dr. Ethan Avendano MD Work Phone: 3(207)502-699448 [place] [address] 04-09-2025 13:06-0400 Body height 172.[address] Ethan Avendano MD Work Phone: 7(607)463-619681 [address] 04-09-2025 13:06-0400 Body mass index (BMI) [Ratio] 21.2 kg/m2 Dr. Ethan Avendano MD Work Phone: 1(728)060-470377 [place] [address] 04-09-2025 13:06-0400 Body temperature 97.3 [degF] Dr. Ethan Avendano MD Work Phone: 8(190)570-235077 [place] [address] 04-09-2025 13:06-0400 Body weight 63.[address] Ethan Avendano MD Work Phone: 9(926)549-744277 [place] [address] 04-09-2025 13:06-0400 Diastolic blood pressure 59 mm[Hg] Dr. Ethan Avendano MD Work Phone: 9(890)971-788677 [place] [address] 04-09-2025 13:06-0400 Heart rate 91 /min Dr. Ethan Avendano MD Work Phone: 4(065)790-129577 [place] [address] 04-09-2025 13:06-0400 Respiratory rate 16 /min Dr. Ethan Avendano MD Work Phone: 0(004)956-277677 [place] [address] 04-09-2025 13:06-0400 SaO2% (BldA) [Mass fraction] 100 % Dr. Ethan Avendano MD Work Phone: 5(124)259-939881 [address] 04-09-2025 13:06-0400 Systolic blood pressure 111 mm[Hg] Dr. Ethan Avendano MD Work Phone: 3(843)293-517177 [place] [address] 03-27-2025 08:10-0400 SaO2% (BldA) [Mass fraction] 96 % Dr. Ethan Avendano MD Work Phone: 7(756)953-192681 [address] 03-27-2025 08:06-0400 Body temperature 97.7 [degF] Dr. Ethan Avendano MD Work Phone: 4(385)668-396081 [address] 03-27-2025 08:06-0400 Diastolic blood pressure 65 mm[Hg] Dr. Ethan Avendano MD Work Phone: [facility] 03-27-2025 08:06-0400 Heart rate 88 /min Dr. Ethan Avendano MD Work Phone: [facility] 03-27-2025 08:06-0400 Respiratory rate 18 /min Dr. Ethan Avendano MD Work Phone: 8(717)192-798348 [place] [address] 03-27-2025 08:06-0400 Systolic blood pressure 125 mm[Hg] Dr. Ethan Avendano MD Work Phone: 2(596)433-486881 [address] 03-26-2025 23:43-0400 Body mass index (BMI) [Ratio] 20.9 kg/m2 Dr. Ethan Avendano MD Work Phone: 1(048)698-447381 [address] 03-26-2025 23:43-0400 Body weight 62.[address] Ethan Avendano MD Work Phone: 5(185)996-965877 [place] [address] 03-26-2025 01:14-0400 Body height 172.[address] Ethan Avendano MD Work Phone: 4(347)012-819981 [address] 2025 23:36-0400 Body temperature 98.1 [degF] Dr. Ethan Avendano MD Work Phone: 8(798)542-886481 [address] 2025 23:36-0400 Diastolic blood pressure 88 mm[Hg] Dr. Ethan Avendano MD Work Phone: 0(431)486-523048 [place] [address] 2025 23:36-0400 Heart rate 105 /min Dr. Ethan Avendano MD Work Phone: 6(988)024-771548 [place] [address] 2025 23:36-0400 Respiratory rate 18 /min Dr. Ethan Avendano MD Work Phone: 2(268)752-948781 [address] 2025 23:36-0400 SaO2% (BldA) [Mass fraction] 95 % Dr. Ethan Avendano MD Work Phone: 9(634)907-226781 [address] 2025 23:36-0400 Systolic blood pressure 138 mm[Hg] Dr. Ethan Avendano MD Work Phone: [facility] 2025 20:42-0400 Body height 170.[address] Ethan Avendano MD Work Phone: [facility] 2025 20:42-0400 Body mass index (BMI) [Ratio] 23 kg/m2 Dr. Ethan Avendano MD Work Phone: [facility] 2025 20:42-0400 Body weight 66.[address] Ethan Avendano MD Work Phone: [facility] 03-21-2025 05:02-0400 Body temperature 97.59 [degF] Bhanu Urbankola DO Work Phone: [facility] 03-21-2025 05:02-0400 Diastolic blood pressure 89 mm[Hg] Bahnu Jaxsonrakola DO Work Phone: [facility] 03-21-2025 05:02-0400 Heart rate 89 /min Bhanu Urbankola DO Work Phone: [facility] 03-21-2025 05:02-0400 Respiratory rate 16 /min Bhanu Jaxsonrakola DO Work Phone: [facility] 03-21-2025 05:02-0400 SaO2% (BldA) [Mass fraction] 97 % Bhanu Jaxsonrakola DO Work Phone: [facility] 03-21-2025 05:02-0400 Systolic blood pressure 146 mm[Hg] Bhanu Jaxsonrakola DO Work Phone: [facility] [employer] 03-19-2025 12:28-0400 Body height 172.7 cm Bhanu Arletla DO Work Phone: [facility] [employer] 03-16-2025 06:20-0400 Body mass index (BMI) [Ratio] 21.29 kg/m2 Bhanu Jaxsonrakola DO Work Phone: [facility] [employer] 03-16-2025 06:20-0400 Body weight 63.5 kg Bhanu Hunter DO Work Phone: [facility] 03-16-2025 04:39-0400 Body temperature 98.3 [degF] Dr. Ethan Avendano MD Work Phone: [facility] 03-16-2025 04:39-0400 Diastolic blood pressure 75 mm[Hg] Dr. Ethan Avendano MD Work Phone: 2(406)430-175248 [place] [address] 03-16-2025 04:39-0400 Heart rate 88 /min Dr. Ethan Avendano MD Work Phone: 9(313)339-026448 [place] [address] 03-16-2025 04:39-0400 Respiratory rate 18 /min Dr. Ethan Avendano MD Work Phone: 4(473)432-689181 [address] 03-16-2025 04:39-0400 SaO2% (BldA) [Mass fraction] 97 % Dr. Ethan Avendano MD Work Phone: [facility] 03-16-2025 04:39-0400 Systolic blood pressure 116 mm[Hg] Dr. Ethan Avendano MD Work Phone: 1(565)[phone] [facility] [place] [address] 03-15-2025 21:18-0400 Body height 170.[address] Ethan Avendano MD Work Phone: 8(768)411-368248 [place] [address] 03-15-2025 21:18-0400 Body mass index (BMI) [Ratio] 22.7 kg/m2 Dr. Ethan Avendano MD Work Phone: 9(127)298-699148 [place] [address] 03-15-2025 21:18-0400 Body weight 65.[address] Ethan Avendano MD Work Phone: 0(351)002-602881 [address] 03-05-2025 11:26-0400 Body height 170.[address] Ethan Avendano MD Work Phone: 7(236)950-862448 [place] [address] 03-05-2025 11:26-0400 Body mass index (BMI) [Ratio] 22.7 kg/m2 Dr. Ethan Avendano MD Work Phone: 4(231)807-107648 [place] [address] 03-05-2025 11:26-0400 Body temperature 96.3 [degF] Dr. Ethan Avendano MD Work Phone: 8(407)998-531548 [place] [address] 03-05-2025 11:26-0400 Body weight 65.[address] Ethan Avendano MD Work Phone: 8(414)839-340977 [place] [address] 03-05-2025 11:26-0400 Diastolic blood pressure 62 mm[Hg] Dr. Ethan Avendano MD Work Phone: 4(758)120-369877 [place] [address] 03-05-2025 11:26-0400 Heart rate 97 /min Dr. Ethan Avendano MD Work Phone: 1(192)134-642577 [place] [address] 03-05-2025 11:26-0400 Respiratory rate 16 /min Dr. Ethan Avendano MD Work Phone: 3(408)626-277377 [place] [address] 03-05-2025 11:26-0400 SaO2% (BldA) [Mass fraction] 97 % Dr. Ethan Avendano MD Work Phone: 3(825)582-205277 [place] [address] 03-05-2025 11:26-0400 Systolic blood pressure 118 mm[Hg] Dr. Ethan Avendano MD Work Phone: 3(277)526-603277 [place] [address] 02-05-2025 09:47-0400 Body height 170.[address] Ethan Avendano MD Work Phone: 5(137)006-427977 [place] [address] 02-05-2025 09:47-0400 Body mass index (BMI) [Ratio] 24.1 kg/m2 Dr. Ethan Avendano MD Work Phone: 5(631)588-521377 [place] [address] 02-05-2025 09:47-0400 Body temperature 97.9 [degF] Dr. Ethan Avendano MD Work Phone: 9(635)508-040177 [place] [address] 02-05-2025 09:47-0400 Body weight 69.[address] Ethan Avendano MD Work Phone: 4(965)428-736477 [place] [address] 02-05-2025 09:47-0400 Diastolic blood pressure 62 mm[Hg] Dr. Ethan Avendano MD Work Phone: 1(011)291-084177 [place] [address] 02-05-2025 09:47-0400 Heart rate 86 /min Dr. Ethan Avendano MD Work Phone: [facility] 02-05-2025 09:47-0400 Respiratory rate 16 /min Dr. Ethan Avendano MD Work Phone: [facility] 02-05-2025 09:47-0400 SaO2% (BldA) [Mass fraction] 98 % Dr. Ethan Avendano MD Work Phone: [facility] 02-05-2025 09:47-0400 Systolic blood pressure 114 mm[Hg] Dr. Ethan Avendano MD Work Phone: 0(226)976-258748 [place] [address] 01-02-2025 10:58-0400 Body height 170.[address] Ethan Avendano MD Work Phone: 4(436)143-875181 [address] 01-02-2025 10:58-0400 Body mass index (BMI) [Ratio] 23.8 kg/m2 Dr. Ethan Avendano MD Work Phone: 4(818)500-467948 [place] [address] 01-02-2025 10:58-0400 Body temperature 97.2 [degF] Dr. Ethan Avendano MD Work Phone: 3(044)743-322381 [address] 01-02-2025 10:58-0400 Body weight 68.[address] Ethan Avendano MD Work Phone: [facility] 01-02-2025 10:58-0400 Diastolic blood pressure 76 mm[Hg] Dr. Ethan Avendano MD Work Phone: [facility] 01-02-2025 10:58-0400 Heart rate 82 /min Dr. Ethan Avendano MD Work Phone: [facility] 01-02-2025 10:58-0400 Respiratory rate 16 /min Dr. Ethan Aevndano MD Work Phone: [facility] 01-02-2025 10:58-0400 SaO2% (BldA) [Mass fraction] 100 % Dr. Ethan Avendano MD Work Phone: [facility] 01-02-2025 10:58-0400 Systolic blood pressure 116 mm[Hg] Dr. Ethan Avendano MD Work Phone: [facility] 12-05-2024 11:09-0400 Body height 170.[address] Ethan Avendano MD Work Phone: [facility] 12-05-2024 11:09-0400 Body temperature 96.3 [degF] Dr. Ethan Avendano MD Work Phone: 3(976)875-881648 [place] [address] 12-05-2024 11:09-0400 Diastolic blood pressure 52 mm[Hg] Dr. Ethan Avendano MD Work Phone: 3(546)131-291348 [place] [address] 12-05-2024 11:09-0400 Heart rate 83 /min Dr. Ethan Avendano MD Work Phone: 7(500)826-179977 [place] [address] 12-05-2024 11:09-0400 Respiratory rate 16 /min Dr. Ethan Avendano MD Work Phone: 2(130)681-684481 [address] 12-05-2024 11:09-0400 SaO2% (BldA) [Mass fraction] 100 % Dr. Ethan Avendano MD Work Phone: 1(177)553-180081 [address] 12-05-2024 11:09-0400 Systolic blood pressure 107 mm[Hg] Dr. Ethan Avendano MD Work Phone: 2(739)945-062677 [place] [address] 11-28-2024 10:50-0400 Body mass index (BMI) [Ratio] 23.8 kg/m2 Dr. Ethan Avendano MD Work Phone: 0(078)669-886748 [place] [address] 11-28-2024 10:50-0400 Body weight 68.[address] Ethan Avendano MD Work Phone: 7(902)269-579248 [place] [address] 11-28-2024 10:50-0400 Diastolic blood pressure 62 mm[Hg] Dr. Ethan Avendano MD Work Phone: 8(274)352-239348 [place] [address] 11-28-2024 10:50-0400 Heart rate 78 /min Dr. Ethan Avendano MD Work Phone: 4(423)787-099148 [place] [address] 11-28-2024 10:50-0400 Respiratory rate 16 /min Dr. Ethan Avendano MD Work Phone: 2(091)021-461777 [place] [address] 11-28-2024 10:50-0400 Systolic blood pressure 107 mm[Hg] Dr. Ethan Avendano MD Work Phone: 4(529)608-146077 [place] [address] 11-07-2024 11:02-0500 Body height 170.[address] Ethan Avendano MD Work Phone: 0(713)332-278777 [place] [address] 11-07-2024 11:02-0500 Body mass index (BMI) [Ratio] 22.7 kg/m2 Dr. Ethan Avendano MD Work Phone: 6(136)883-947777 [place] [address] 11-07-2024 11:02-0500 Body temperature 97 [degF] Dr. tEhan Avendano MD Work Phone: 0(805)633-648977 [place] [address] 11-07-2024 11:02-0500 Body weight 65.[address] Ethan Avendano MD Work Phone: 2(661)204-554677 [place] [address] 11-07-2024 11:02-0500 Diastolic blood pressure 58 mm[Hg] Dr. Ethan Avendano MD Work Phone: 9(224)423-244977 [place] [address] 11-07-2024 11:02-0500 Heart rate 82 /min Dr. Ethan Avendano MD Work Phone: 0(571)726-269077 [place] [address] 11-07-2024 11:02-0500 Respiratory rate 16 /min Dr. Ethan Avendano MD Work Phone: 3(165)454-301377 [place] [address] 11-07-2024 11:02-0500 SaO2% (BldA) [Mass fraction] 99 % Dr. Ethan Avendano MD Work Phone: 0(969)638-648977 [place] [address] 11-07-2024 11:02-0500 Systolic blood pressure 121 mm[Hg] Dr. Ethan Avendano MD Work Phone: 3(668)855-227977 [place] [address] 10-10-2024 09:52-0500 Body mass index (BMI) [Ratio] 24.7 kg/m2 Dr. Ethan Avendano MD Work Phone: 8(733)412-801677 [place] [address] 10-10-2024 09:52-0500 Body temperature 97.5 [degF] Dr. Ethan Avendano MD Work Phone: [facility] 10-10-2024 09:52-0500 Body weight 71.[address] Ethan Avendano MD Work Phone: 5(690)853-678677 [place] [address] 10-10-2024 09:52-0500 Diastolic blood pressure 58 mm[Hg] Dr. Ethan Avendano MD Work Phone: 7(460)947-143677 [place] [address] 10-10-2024 09:52-0500 Heart rate 65 /min Dr. Ethan Avendano MD Work Phone: 8(381)644-792477 [place] [address] 10-10-2024 09:52-0500 Respiratory rate 16 /min Dr. Ethan Avendano MD Work Phone: 7(293)506-677777 [place] [address] 10-10-2024 09:52-0500 SaO2% (BldA) [Mass fraction] 99 % Dr. Ethan Avendano MD Work Phone: 6(045)951-873577 [place] [address] 10-10-2024 09:52-0500 Systolic blood pressure 127 mm[Hg] Dr. Ethan Avendano MD Work Phone: 1(210)380-737677 [place] [address] 09-05-2024 12:02-0500 Body mass index (BMI) [Ratio] 24.3 kg/m2 Dr. Ethan Avendano MD Work Phone: 8(336)384-824677 [place] [address] 09-05-2024 12:02-0500 Body temperature 97.7 [degF] Dr. Ethan Avendano MD Work Phone: 9(956)673-244277 [place] [address] 09-05-2024 12:02-0500 Body weight 70.[address] Ethan Avendano MD Work Phone: 8(280)647-199248 [place] [address] 09-05-2024 12:02-0500 Diastolic blood pressure 53 mm[Hg] Dr. Ethan Avendano MD Work Phone: 3(695)141-264077 [place] [address] 09-05-2024 12:02-0500 Heart rate 62 /min Dr. Ethan Avendano MD Work Phone: 0(625)770-662248 [place] [address] 09-05-2024 12:02-0500 Respiratory rate 16 /min Dr. Ethan Avendano MD Work Phone: 3(072)639-415777 [place] [address] 09-05-2024 12:02-0500 SaO2% (BldA) [Mass fraction] 100 % Dr. Ethan Avendano MD Work Phone: 7(563)972-368877 [place] [address] 09-05-2024 12:02-0500 Systolic blood pressure 136 mm[Hg] Dr. Ethan Avendano MD Work Phone: 9(998)660-054877 [place] [address] 08-23-2024 09:10-0500 Body temperature 98 [degF] Dr. Ethan Avendano MD Work Phone: 8(114)141-320877 [place] [address] 08-23-2024 09:10-0500 Diastolic blood pressure 64 mm[Hg] Dr. Ethan Avendano MD Work Phone: 8(310)317-841677 [place] [address] 08-23-2024 09:10-0500 Heart rate 74 /min Dr. Ethan Avendano MD Work Phone: 4(874)762-344277 [place] [address] 08-23-2024 09:10-0500 Respiratory rate 16 /min Dr. Ethan Avendano MD Work Phone: 2(095)395-649377 [place] [address] 08-23-2024 09:10-0500 SaO2% (BldA) [Mass fraction] 97 % Dr. Ethan Avendano MD Work Phone: 5(709)341-209877 [place] [address] 08-23-2024 09:10-0500 Systolic blood pressure 106 mm[Hg] Dr. Ethan Avendano MD Work Phone: 8(545)681-603477 [place] [address] 08-23-2024 07:29-0500 Body mass index (BMI) [Ratio] 24.3 kg/m2 Dr. Ethan Avendano MD Work Phone: 5(663)065-659377 [place] [address] 08-23-2024 07:29-0500 Body weight 70.[address] Ethan Avendano MD Work Phone: 4(318)408-525377 [place] [address] 08-08-2024 11:47-0500 Body mass index (BMI) [Ratio] 24.4 kg/m2 Dr. Ethan Avendano MD Work Phone: 3(547)404-467777 [place] [address] 08-08-2024 11:47-0500 Body temperature 96.5 [degF] Dr. Ethan Avendano MD Work Phone: 0(595)052-603177 [place] [address] 08-08-2024 11:47-0500 Body weight 70.[address] Ethan Avendano MD Work Phone: 1(731)919-010377 [place] [address] 08-08-2024 11:47-0500 Diastolic blood pressure 56 mm[Hg] Dr. Ethan Avendano MD Work Phone: 9(463)440-904077 [place] [address] 08-08-2024 11:47-0500 Heart rate 62 /min Dr. Ethan Avendano MD Work Phone: 5(514)243-137277 [place] [address] 08-08-2024 11:47-0500 Respiratory rate 16 /min Dr. Ethan Avendano MD Work Phone: 3(892)966-816777 [place] [address] 08-08-2024 11:47-0500 SaO2% (BldA) [Mass fraction] 99 % Dr. Ethan Avendano MD Work Phone: 6(450)856-631377 [place] [address] 08-08-2024 11:47-0500 Systolic blood pressure 132 mm[Hg] Dr. Ethan Avendano MD Work Phone: 9(590)689-302877 [place] [address] 07-11-2024 11:11-0500 Body mass index (BMI) [Ratio] 24.9 kg/m2 Dr. Ethan Avendano MD Work Phone: 1(480)116-115277 [place] [address] 07-11-2024 11:11-0500 Body temperature 97 [degF] Dr. Ethan Avendano MD Work Phone: 4(034)546-999277 [place] [address] 07-11-2024 11:11-0500 Body weight 72.[address] Ethan Avendano MD Work Phone: 4(783)220-944677 [place] [address] 07-11-2024 11:11-0500 Diastolic blood pressure 47 mm[Hg] Dr. Ethan Avendano MD Work Phone: 5(073)133-962477 [place] [address] 07-11-2024 11:11-0500 Heart rate 59 /min Dr. Ethan Avendano MD Work Phone: 0(822)856-275377 [place] [address] 07-11-2024 11:11-0500 Respiratory rate 16 /min Dr. Ethan Avendano MD Work Phone: 9(053)580-567877 [place] [address] 07-11-2024 11:11-0500 SaO2% (BldA) [Mass fraction] 99 % Dr. Ethan Avendano MD Work Phone: [facility] 07-11-2024 11:11-0500 Systolic blood pressure 130 mm[Hg] Dr. Ethan Avendano MD Work Phone: [facility] 01-04-2024 10:36-0400 Body height 170.[address] Ethan Avendano Work Phone: [facility] 01-04-2024 10:36-0400 Body temperature 97.8 [degF] Dr. Ethan Avendano Work Phone: [facility] 01-04-2024 10:36-0400 Diastolic blood pressure 50 mm[Hg] Dr. Ethan Avendano Work Phone: [facility] 01-04-2024 10:36-0400 Heart rate 61 /min Dr. Ethan Avendano Work Phone: [facility] 01-04-2024 10:36-0400 Respiratory rate 16 /min Dr. Ethan Avendano Work Phone: [facility] 01-04-2024 10:36-0400 SaO2% (BldA) [Mass fraction] 98 % Dr. Ethan Avendano Work Phone: [facility] 01-04-2024 10:36-0400 Systolic blood pressure 105 mm[Hg] Dr. Ethan Avendano Work Phone: [facility] 12-07-2023 10:46-0400 Body height 170.[address] Ethan Avendano Work Phone: [facility] 12-07-2023 10:46-0400 Body temperature 96.8 [degF] Dr. Ethan Avendano Work Phone: [facility] 12-07-2023 10:46-0400 Diastolic blood pressure 61 mm[Hg] Dr. Ethan Avendano Work Phone: [facility] 12-07-2023 10:46-0400 Heart rate 62 /min Dr. Ethan Avendano Work Phone: [facility] 12-07-2023 10:46-0400 Respiratory rate 16 /min Dr. Ethan Avendano Work Phone: [facility] 12-07-2023 10:46-0400 SaO2% (BldA) [Mass fraction] 100 % Dr. Ethan Avendano Work Phone: [facility] 12-07-2023 10:46-0400 Systolic blood pressure 116 mm[Hg] Dr. Ethan Avendano Work Phone: [facility] 11-09-2023 10:29-0500 Body height 170.[address] Ethan vAendano Work Phone: [facility] 11-09-2023 10:29-0500 Body temperature 97.9 [degF] Dr. Ethan Avendano Work Phone: [facility] 11-09-2023 10:29-0500 Diastolic blood pressure 62 mm[Hg] Dr. Ethan Avendano Work Phone: [facility] 11-09-2023 10:29-0500 Heart rate 73 /min Dr. Ethan Avendano Work Phone: [facility] 11-09-2023 10:29-0500 Respiratory rate 16 /min Dr. Ethan Avendano Work Phone: [facility] 11-09-2023 10:29-0500 Systolic blood pressure 117 mm[Hg] Dr. Ethan Avendano Work Phone: [facility] 10-10-2023 10:23-0500 Body mass index (BMI) [Ratio] 24.9 kg/m2 Dr. Ethan Avednano Work Phone: [facility] 10-10-2023 10:23-0500 Body weight 72.[address] Ethan Avendano Work Phone: [facility] 10-10-2023 10:23-0500 Diastolic blood pressure 73 mm[Hg] Dr. Ethan Avendano Work Phone: [facility] 10-10-2023 10:23-0500 Heart rate 63 /min Dr. Ethan Avendano Work Phone: [facility] 10-10-2023 10:23-0500 Respiratory rate 18 /min Dr. Ethan Avendano Work Phone: [facility] 10-10-2023 10:23-0500 SaO2% (BldA) [Mass fraction] 99 % Dr. Ethan Avendano Work Phone: [facility] 10-10-2023 10:23-0500 Systolic blood pressure 128 mm[Hg] Dr. Ethan Avendano Work Phone: [facility] 10-05-2023 10:05-0500 Body height 170.18 cm [facility] 10-05-2023 10:05-0500 Body temperature 98.1 [degF] [facility] 10-05-2023 10:05-0500 Diastolic blood pressure 45 mm[Hg] [facility] 10-05-2023 10:05-0500 Heart rate 63 /min [facility] 10-05-2023 10:05-0500 Respiratory rate 16 /min [facility] 10-05-2023 10:05-0500 SaO2% (BldA) [Mass fraction] 100 % [facility] 10-05-2023 10:05-0500 Systolic blood pressure 105 mm[Hg] [facility] 09-07-2023 10:25-0500 Body height 170.18 cm [facility] 09-07-2023 10:25-0500 Body mass index (BMI) [Ratio] 24.3 kg/m2 [facility] 09-07-2023 10:25-0500 Body temperature 97 [degF] [facility] 09-07-2023 10:25-0500 Body weight 70.3 kg [facility] 09-07-2023 10:25-0500 Diastolic blood pressure 51 mm[Hg] [facility] 09-07-2023 10:25-0500 Heart rate 64 /min [facility] 09-07-2023 10:25-0500 Respiratory rate 16 /min [facility] 09-07-2023 10:25-0500 SaO2% (BldA) [Mass fraction] 97 % [facility] 09-07-2023 10:25-0500 Systolic blood pressure 114 mm[Hg] [facility] 08-10-2023 11:01-0500 Body mass index (BMI) [Ratio] 24.3 kg/m2 [facility] 08-10-2023 11:01-0500 Body weight 70.3 kg [facility] 07-06-2023 10:12-0400 Body height 170.[address] Ethan Avendano Work Phone: [facility] 07-06-2023 10:12-0400 Body mass index (BMI) [Ratio] 24.1 kg/m2 Dr. Ethan Avendano Work Phone: [facility] 07-06-2023 10:12-0400 Body temperature 97.6 [degF] Dr. Ethan Avendano Work Phone: [facility] 07-06-2023 10:12-0400 Body weight 69.[address] Ethan Avendano Work Phone: [facility] 07-06-2023 10:12-0400 Diastolic blood pressure 58 mm[Hg] Dr. Ethan Avendano Work Phone: [facility] 07-06-2023 10:12-0400 Heart rate 75 /min Dr. Ethan Avendano Work Phone: [facility] 07-06-2023 10:12-0400 Respiratory rate 16 /min Dr. Ethan Avendano Work Phone: [facility] 07-06-2023 10:12-0400 SaO2% (BldA) [Mass fraction] 98 % Dr. Ethan Avendano Work Phone: [facility] 07-06-2023 10:12-0400 Systolic blood pressure 130 mm[Hg] Dr. Ethan Avendano Work Phone: [facility] 06-08-2023 11:06-0400 Body temperature 97.1 [degF] Dr. Ethan Avendano Work Phone: [facility] 06-08-2023 11:06-0400 Diastolic blood pressure 56 mm[Hg] Dr. Ethan Avendano Work Phone: [facility] 06-08-2023 11:06-0400 Heart rate 65 /min Dr. Ethan Avendano Work Phone: 3(359)448-298448 [place] [address] 06-08-2023 11:06-0400 Respiratory rate 16 /min Dr. Ethan Avendano Work Phone: 6(503)767-798948 [place] [address] 06-08-2023 11:06-0400 SaO2% (BldA) [Mass fraction] 100 % Dr. Ethan Avendano Work Phone: 4(394)309-978548 [place] [address] 06-08-2023 11:06-0400 Systolic blood pressure 125 mm[Hg] Dr. Ethan Avendano Work Phone: 1(249)839-769677 [place] [address] 05-10-2023 11:11-0400 Body height 170.[address] Ethan Avendano Work Phone: 4(794)397-936577 [place] [address] 05-10-2023 11:11-0400 Body mass index (BMI) [Ratio] 24.3 kg/m2 Dr. Ethan Avendano Work Phone: 1(273)688-933677 [place] [address] 05-10-2023 11:11-0400 Body temperature 98.3 [degF] Dr. Ethan Avendano Work Phone: 6(547)215-642377 [place] [address] 05-10-2023 11:11-0400 Body weight 70.[address] Ethan Avendano Work Phone: 0(632)989-710481 [address] 05-10-2023 11:11-0400 Diastolic blood pressure 51 mm[Hg] Dr. Ethan Avendano Work Phone: 2(607)309-987177 [place] [address] 05-10-2023 11:11-0400 Heart rate 73 /min Dr. Ethan Avendano Work Phone: 3(445)061-428848 [place] [address] 05-10-2023 11:11-0400 Respiratory rate 16 /min Dr. Ethan Avendano Work Phone: 4(058)371-608748 [place] [address] 05-10-2023 11:11-0400 SaO2% (BldA) [Mass fraction] 97 % Dr. Ethan Avendano Work Phone: [facility] 05-10-2023 11:11-0400 Systolic blood pressure 117 mm[Hg] Dr. Ethan Avendano Work Phone: [facility] 04-05-2023 11:03-0400 Body height 170.[address] Ethan Avendano Work Phone: [facility] 04-05-2023 11:03-0400 Body temperature 97.2 [degF] Dr. Ethan Avendano Work Phone: [facility] 04-05-2023 11:03-0400 Diastolic blood pressure 62 mm[Hg] Dr. Ethan Avendano Work Phone: [facility] 04-05-2023 11:03-0400 Heart rate 63 /min Dr. Ethan Avendano Work Phone: [facility] 04-05-2023 11:03-0400 Respiratory rate 16 /min Dr. Ethan Avendano Work Phone: [facility] 04-05-2023 11:03-0400 SaO2% (BldA) [Mass fraction] 98 % Dr. Ethan Avendano Work Phone: [facility] 04-05-2023 11:03-0400 Systolic blood pressure 122 mm[Hg] Dr. Ethan Avendano Work Phone: [facility] 03-08-2023 12:58-0400 Body height 170.[address] Ethan Avendano Work Phone: [facility] 03-08-2023 12:58-0400 Body mass index (BMI) [Ratio] 23.9 kg/m2 Dr. Ethan Avendano Work Phone: [facility] 03-08-2023 12:58-0400 Body temperature 98.6 [degF] Dr. Ethan Avendano Work Phone: [facility] 03-08-2023 12:58-0400 Body weight 69.[address] Ethan Avendano Work Phone: [facility] 03-08-2023 12:58-0400 Diastolic blood pressure 53 mm[Hg] Dr. Ethan Avendano Work Phone: [facility] 03-08-2023 12:58-0400 Heart rate 71 /min Dr. Ethan Avendano Work Phone: [facility] 03-08-2023 12:58-0400 Respiratory rate 16 /min Dr. Ethan Avendano Work Phone: [facility] 03-08-2023 12:58-0400 SaO2% (BldA) [Mass fraction] 97 % Dr. Ethan Avendano Work Phone: [facility] 03-08-2023 12:58-0400 Systolic blood pressure 119 mm[Hg] Dr. Ethan Avendano Work Phone: [facility] 02-03-2023 11:03-0400 Body height 170.[address] Ethan Avendano Work Phone: [facility] 02-03-2023 11:03-0400 Body temperature 97 [degF] Dr. Ethan Avendano Work Phone: [facility] 02-03-2023 11:03-0400 Diastolic blood pressure 53 mm[Hg] Dr. Ethan Avendano Work Phone: [facility] 02-03-2023 11:03-0400 Heart rate 66 /min Dr. Ethan Avendano Work Phone: [facility] 02-03-2023 11:03-0400 Respiratory rate 16 /min Dr. Ethan Avendano Work Phone: [facility] 02-03-2023 11:03-0400 SaO2% (BldA) [Mass fraction] 100 % Dr. Ethan Avendano Work Phone: [facility] 02-03-2023 11:03-0400 Systolic blood pressure 117 mm[Hg] Dr. Ethan Avendano Work Phone: [facility] 02-01-2023 08:32-0400 Body mass index (BMI) [Ratio] 23.8 kg/m2 Dr. Ethan Avendano Work Phone: [facility] 02-01-2023 08:32-0400 Body weight 68.[address] Ethan Avendano Work Phone: [facility] 02-01-2023 08:32-0400 Diastolic blood pressure 69 mm[Hg] Dr. Ethan Avendano Work Phone: [facility] 02-01-2023 08:32-0400 Heart rate 70 /min Dr. Ethan Avendano Work Phone: [facility] 02-01-2023 08:32-0400 Respiratory rate 18 /min Dr. Ethan Avendano Work Phone: [facility] 02-01-2023 08:32-0400 SaO2% (BldA) [Mass fraction] 99 % Dr. Ethan Avendano Work Phone: [facility] 02-01-2023 08:32-0400 Systolic blood pressure 117 mm[Hg] Dr. Ethan Avendano Work Phone: [facility] 01-05-2023 09:29-0400 Body height 170.18 cm [facility] 01-05-2023 09:29-0400 Body temperature 98.4 [degF] [facility] 01-05-2023 09:29-0400 Diastolic blood pressure 53 mm[Hg] [facility] 01-05-2023 09:29-0400 Heart rate 73 /min [facility] 01-05-2023 09:29-0400 Respiratory rate 16 /min [facility] 01-05-2023 09:29-0400 SaO2% (BldA) [Mass fraction] 99 % [facility] 01-05-2023 09:29-0400 Systolic blood pressure 114 mm[Hg] [facility] 12-29-2022 08:06-0400 Diastolic blood pressure 64 mm[Hg] Latisha Robles MD Work Phone: [facility] 12-29-2022 08:06-0400 Heart rate 99 /min Latisha Robles MD Work Phone: [facility] 12-29-2022 08:06-0400 SaO2% (BldA) [Mass fraction] 82 % Latisha Robles MD Work Phone: [facility] 12-29-2022 08:06-0400 Systolic blood pressure 121 mm[Hg] Latisha Robles MD Work Phone: [facility] 12-08-2022 11:20-0400 Body height 170.18 cm [facility] 12-08-2022 11:20-0400 Diastolic blood pressure 87 mm[Hg] [facility] 12-08-2022 11:20-0400 Heart rate 76 /min [facility] 12-08-2022 11:20-0400 Respiratory rate 16 /min [facility] 12-08-2022 11:20-0400 SaO2% (BldA) [Mass fraction] 100 % [facility] 12-08-2022 11:20-0400 Systolic blood pressure 130 mm[Hg] [facility] 11-04-2022 11:23-0500 Body height 170.18 cm [facility] 11-04-2022 11:23-0500 Body temperature 97.9 [degF] [facility] 11-04-2022 11:23-0500 Diastolic blood pressure 60 mm[Hg] [facility] 11-04-2022 11:23-0500 Heart rate 60 /min [facility] 11-04-2022 11:23-0500 Respiratory rate 16 /min [facility] 11-04-2022 11:23-0500 SaO2% (BldA) [Mass fraction] 100 % [facility] 11-04-2022 11:23-0500 Systolic blood pressure 123 mm[Hg] [facility] 10-07-2022 11:02-0500 Body height 170.18 cm [facility] 10-07-2022 11:02-0500 Body mass index (BMI) [Ratio] 24.3 kg/m2 [facility] 10-07-2022 11:02-0500 Body temperature 97.9 [degF] [facility] 10-07-2022 11:02-0500 Body weight 70.3 kg [facility] 10-07-2022 11:02-0500 Diastolic blood pressure 55 mm[Hg] [facility] 10-07-2022 11:02-0500 Heart rate 63 /min [facility] 10-07-2022 11:02-0500 Respiratory rate 16 /min [facility] 10-07-2022 11:02-0500 SaO2% (BldA) [Mass fraction] 100 % [facility] 10-07-2022 11:02-0500 Systolic blood pressure 132 mm[Hg] [facility] 09-09-2022 11:12-0500 Body height 170.18 cm [facility] 09-09-2022 11:12-0500 Body mass index (BMI) [Ratio] 24.5 kg/m2 [facility] 09-09-2022 11:12-0500 Body temperature 97.7 [degF] [facility] 09-09-2022 11:12-0500 Body weight 71.21 kg [facility] 09-09-2022 11:12-0500 Diastolic blood pressure 66 mm[Hg] [facility] 09-09-2022 11:12-0500 Heart rate 68 /min [facility] 09-09-2022 11:12-0500 Respiratory rate 16 /min [facility] 09-09-2022 11:12-0500 SaO2% (BldA) [Mass fraction] 99 % [facility] 09-09-2022 11:12-0500 Systolic blood pressure 149 mm[Hg] [facility] 08-04-2022 10:51-0500 Body height 170.[address] Ethan Avendano Work Phone: [facility] Work Phone: 08-04-2022 10:51-0500 Body mass index (BMI) [Ratio] 23.8 kg/m2 Dr. Ethan Avendano Work Phone: [facility] 08-04-2022 10:51-0500 Body temperature 96.9 [degF] Dr. Ethan Avendano Work Phone: [facility] 08-04-2022 10:51-0500 Body weight 68.[address] Ethan Avendano Work Phone: [facility] 08-04-2022 10:51-0500 Diastolic blood pressure 59 mm[Hg] Dr. Ethan Avendano Work Phone: [facility] 08-04-2022 10:51-0500 Heart rate 72 /min Dr. Ethan Avendano Work Phone: [facility] 08-04-2022 10:51-0500 Respiratory rate 12 /min Dr. Ethan Avendano Work Phone: [facility] 08-04-2022 10:51-0500 SaO2% (BldA) [Mass fraction] 100 % Dr. Ethan Avendano Work Phone: [facility] 08-04-2022 10:51-0500 Systolic blood pressure 126 mm[Hg] Dr. Ethan Avendano Work Phone: [facility] 07-08-2022 11:09-0400 Body height 170.[address] Ethan Avendano Work Phone: [facility] Work Phone: 07-08-2022 11:09-0400 Body temperature 98.1 [degF] Dr. Ethan Avendano Work Phone: [facility] 07-08-2022 11:09-0400 Diastolic blood pressure 63 mm[Hg] Dr. Ethan Avendano Work Phone: [facility] 07-08-2022 11:09-0400 Heart rate 67 /min Dr. Ethan Avendano Work Phone: [facility] 07-08-2022 11:09-0400 Respiratory rate 16 /min Dr. Ethan Avendano Work Phone: [facility] 07-08-2022 11:09-0400 SaO2% (BldA) [Mass fraction] 99 % Dr. Ethan Avendano Work Phone: [facility] 07-08-2022 11:09-0400 Systolic blood pressure 135 mm[Hg] Dr. Ethan Avendano Work Phone: [facility] 06-10-2022 11:18-0400 Body height 170.[address] Ethan Avendano Work Phone: [facility] Work Phone: 06-10-2022 11:18-0400 Body mass index (BMI) [Ratio] 24.4 kg/m2 Dr. Ethan Avendano Work Phone: [facility] 06-10-2022 11:18-0400 Body temperature 98.2 [degF] Dr. Ethan Avendano Work Phone: [facility] 06-10-2022 11:18-0400 Body weight 70.[address] Ethan Avendano Work Phone: [facility] 06-10-2022 11:18-0400 Diastolic blood pressure 59 mm[Hg] Dr. Ethan Avendano Work Phone: [facility] 06-10-2022 11:18-0400 Heart rate 66 /min Dr. Ethan Avendano Work Phone: [facility] 06-10-2022 11:18-0400 Respiratory rate 12 /min Dr. Ethan Avendano Work Phone: [facility] 06-10-2022 11:18-0400 SaO2% (BldA) [Mass fraction] 99 % Dr. Ethan Avendano Work Phone: [facility] 06-10-2022 11:18-0400 Systolic blood pressure 127 mm[Hg] Dr. Ethan Avendano Work Phone: [facility] 04-08-2022 11:31-0400 Body temperature 96.6 [degF] Dr. Ethan Avendano Work Phone: [facility] Work Phone: 04-08-2022 11:31-0400 Diastolic blood pressure 57 mm[Hg] Dr. Ethan Avendano Work Phone: [facility] Work Phone: 04-08-2022 11:31-0400 Heart rate 68 /min Dr. Ethan Avenadno Work Phone: [facility] Work Phone: 04-08-2022 11:31-0400 SaO2% (BldA) [Mass fraction] 98 % Dr. Ethan Avendano Work Phone: [facility] Work Phone: 04-08-2022 11:31-0400 Systolic blood pressure 118 mm[Hg] Dr. Ethan Avendano Work Phone: [facility] Work Phone: 03-16-2022 11:23-0400 Body height 170.[address] Ethan Avendano Work Phone: [facility] Work Phone: 03-04-2022 11:24-0400 Body height 170.18 cm [facility] Work Phone: 03-04-2022 11:24-0400 Body mass index (BMI) [Ratio] 24.3 kg/m2 [facility] Work Phone: 03-04-2022 11:24-0400 Body temperature 98.4 [degF] [facility] Work Phone: 03-04-2022 11:24-0400 Body weight 70.3 kg [facility] Work Phone: 03-04-2022 11:24-0400 Diastolic blood pressure 54 mm[Hg] [facility] Work Phone: 03-04-2022 11:24-0400 Heart rate 65 /min [facility] Work Phone: 03-04-2022 11:24-0400 Respiratory rate 14 /min [facility] Work Phone: 03-04-2022 11:24-0400 SaO2% (BldA) [Mass fraction] 96 % [facility] Work Phone: 03-04-2022 11:24-0400 Systolic blood pressure 126 mm[Hg] [facility] Work Phone: 02-04-2022 10:46-0400 Body height 170.18 cm [facility] Work Phone: 02-04-2022 10:46-0400 Body mass index (BMI) [Ratio] 24.1 kg/m2 [facility] Work Phone: 02-04-2022 10:46-0400 Body temperature 98.2 [degF] [facility] Work Phone: 02-04-2022 10:46-0400 Body weight 69.85 kg [facility] Work Phone: 02-04-2022 10:46-0400 Diastolic blood pressure 48 mm[Hg] [facility] Work Phone: 02-04-2022 10:46-0400 Heart rate 60 /min [facility] Work Phone: 02-04-2022 10:46-0400 Respiratory rate 16 /min [facility] Work Phone: 02-04-2022 10:46-0400 SaO2% (BldA) [Mass fraction] 97 % [facility] Work Phone: 02-04-2022 10:46-0400 Systolic blood pressure 108 mm[Hg] [facility] Work Phone: 01-07-2022 11:04-0400 Body temperature 97.6 [degF] [facility] Work Phone: 01-07-2022 11:04-0400 Diastolic blood pressure 61 mm[Hg] [facility] Work Phone: 01-07-2022 11:04-0400 Heart rate 68 /min [facility] Work Phone: 01-07-2022 11:04-0400 Respiratory rate 16 /min [facility] Work Phone: 01-07-2022 11:04-0400 SaO2% (BldA) [Mass fraction] 96 % [facility] Work Phone: 01-07-2022 11:04-0400 Systolic blood pressure 128 mm[Hg] [facility] Work Phone: 12-03-2021 11:12-0400 Body height 170.[address] Ethan Avendano Work Phone: [facility] Work Phone: 12-03-2021 11:12-0400 Body mass index (BMI) [Ratio] 24.3 kg/m2 Dr. Ethan Avendano Work Phone: [facility] Work Phone: 12-03-2021 11:12-0400 Body temperature 98.1 [degF] Dr. Ethan Avendano Work Phone: [facility] Work Phone: 12-03-2021 11:12-0400 Body weight 70.[address] Ethan Avendano Work Phone: [facility] Work Phone: 12-03-2021 11:12-0400 Diastolic blood pressure 70 mm[Hg] Dr. Ethan Avendano Work Phone: [facility] Work Phone: 12-03-2021 11:12-0400 Heart rate 72 /min Dr. Ethan Avendano Work Phone: [facility] Work Phone: 12-03-2021 11:12-0400 Respiratory rate 16 /min Dr. Ethan Avendano Work Phone: [facility] Work Phone: 12-03-2021 11:12-0400 SaO2% (BldA) [Mass fraction] 97 % Dr. Ethan Avendano Work Phone: [facility] Work Phone: 12-03-2021 11:12-0400 Systolic blood pressure 142 mm[Hg] Dr. Ethan Avendano Work Phone: [facility] Work Phone: 11-05-2021 10:17-0500 Body mass index (BMI) [Ratio] 24.7 kg/m2 Dr. Ethan Avendano Work Phone: [facility] Work Phone: 11-05-2021 10:17-0500 Body temperature 98.4 [degF] Dr. Ethan Avendano Work Phone: [facility] Work Phone: 11-05-2021 10:17-0500 Body weight 71.[address] Ethan Avendano Work Phone: [facility] Work Phone: 11-05-2021 10:17-0500 Diastolic blood pressure 56 mm[Hg] Dr. Ethan Avendano Work Phone: [facility] Work Phone: 11-05-2021 10:17-0500 Heart rate 63 /min Dr. Ethan Avendano Work Phone: [facility] Work Phone: 11-05-2021 10:17-0500 Respiratory rate 16 /min Dr. Ethan Avendano Work Phone: [facility] Work Phone: 11-05-2021 10:17-0500 SaO2% (BldA) [Mass fraction] 100 % Dr. Ethan Avendano Work Phone: [facility] Work Phone: 11-05-2021 10:17-0500 Systolic blood pressure 120 mm[Hg] Dr. Ethan Avendano Work Phone: [facility] Work Phone: 10-08-2021 11:15-0500 Body temperature 96.6 [degF] Dr. Ethan Avendano Work Phone: [facility] Work Phone: 10-08-2021 11:15-0500 Diastolic blood pressure 57 mm[Hg] Dr. Ethan Avendano Work Phone: [facility] Work Phone: 10-08-2021 11:15-0500 Heart rate 62 /min Dr. Ethan Avendano Work Phone: [facility] Work Phone: 10-08-2021 11:15-0500 SaO2% (BldA) [Mass fraction] 98 % Dr. Ethan Avendano Work Phone: [facility] Work Phone: 10-08-2021 11:15-0500 Systolic blood pressure 123 mm[Hg] Dr. Ethan Avendano Work Phone: [facility] Work Phone: 10-08-2021 09:20-0500 Respiratory rate 16 /min Dr. Ethan Avendano Work Phone: [facility] Work Phone: 09-10-2021 10:35-0500 Body mass index (BMI) [Ratio] 24.7 kg/m2 Dr. Ethan Avendano Work Phone: [facility] Work Phone: 09-10-2021 10:35-0500 Body temperature 98.5 [degF] Dr. Ethan Avendano Work Phone: [facility] Work Phone: 09-10-2021 10:35-0500 Body weight 71.[address] Ethan Avendano Work Phone: [facility] Work Phone: 09-10-2021 10:35-0500 Diastolic blood pressure 65 mm[Hg] Dr. Ethan Avendano Work Phone: [facility] Work Phone: 09-10-2021 10:35-0500 Heart rate 56 /min Dr. Ethan Avendano Work Phone: [facility] Work Phone: 09-10-2021 10:35-0500 Respiratory rate 16 /min Dr. Ethan Avendano Work Phone: [facility] Work Phone: 09-10-2021 10:35-0500 SaO2% (BldA) [Mass fraction] 95 % Dr. Ethan Avendano Work Phone: [facility] Work Phone: 09-10-2021 10:35-0500 Systolic blood pressure 116 mm[Hg] Dr. Ethan Avendano Work Phone: [facility] Work Phone: 09-06-2021 08:47-0500 Body weight 72.[address] Ethan Avendano Work Phone: [facility] Work Phone: 09-06-2021 08:47-0500 Diastolic blood pressure 66 mm[Hg] Dr. Ethan Avendano Work Phone: [facility] Work Phone: 09-06-2021 08:47-0500 Heart rate 56 /min Dr. Ethan Avendano Work Phone: [facility] Work Phone: 09-06-2021 08:47-0500 Respiratory rate 18 /min Dr. Ethan Avendano Work Phone: [facility] Work Phone: 09-06-2021 08:47-0500 SaO2% (BldA) [Mass fraction] 100 % Dr. Ethan Avendano Work Phone: [facility] Work Phone: 09-06-2021 08:47-0500 Systolic blood pressure 150 mm[Hg] Dr. Ethan Avendano Work Phone: [facility] Work Phone: 02-16-2021 [id number] Body mass index (BMI) [Ratio] 24.3 kg/m2 Dr. Ethan Avendano Work Phone: [facility] Work Phone: Encounters Encounter Date Encounter Type Care Provider Facility Start: 06-04-2025 End: 06-04-[address] Ethan Avendano MD -Medical Out Work Phone: Start: 06-04-2025 End: 06-04-2025 ambulatory Ethan Avendano Facility:[facility] Start: 05-14-2025 End: 05-15-2025 Emergency department patient visit Dr. Ethan Avendano MD Work Phone: -Emergency Department Work Phone: Start: 05-07-2025 End: 05-07-[address] Ethan Avendano MD Work Phone: -Medical Out Start: 05-07-2025 End: 05-07-[address] Ethan Avendano MD -Medical Out Work Phone: Start: 04-17-2025 End: 04-17-[address] Ethan Avendano MD Work Phone: -[facility] Start: 04-17-2025 End: 04-17-[address] Ethan Avendano MD -[facility] Work Phone: Start: 04-17-2025 End: 04-17-2025 ambulatory Ethan Avendano Facility:[facility] Start: 04-09-2025 End: 04-09-[address] Ethan Avendano MD -Medical Out Work Phone: Start: 04-09-2025 End: 04-09-[address] Ethan Avendano MD Work Phone: -Medical Out Start: 04-07-2025 End: 04-08-2025 Telephone encounter Bronson Jarrett MD Work Phone: [facility] Comment on above: Cancelled Appointmen t Start: 03-27-2025 Non-patient / Non-visit Dr. Jessica Chris MD -[facility] Work Phone: Start: 03-26-2025 Non-patient / Non-visit Dr. Jessica Chris MD -[facility] Work Phone: Start: 2025 Non-patient / Non-visit Dr. Lacy Johnston MD -[facility] Work Phone: Start: 2025 End: 03-27-2025 ambulatory Ethan Avendano Facility:[facility] Start: 2025 End: 03-27-2025 Evaluation and management of inpatient Dr. Lacy Johnston MD -[facility] Surgical 3 Work Phone: Start: 2025 End: 03-27-[address] Ethan Avendano MD Work Phone: -Medical Surgical 3 Start: 03-16-2025 End: 03-21-2025 Evaluation and management of inpatient Bhanu Hunter DO Work Phone: [facility] Surgical Progressive Care Unit PCU [...] ambulatory Dr. Ethan Avendano MD Work Phone: [facility] Work Phone: Start: 01-06-2025 End: 01-06-[address] Ethan Avendano MD Work Phone: [facility] Work Phone: Start: 01-06-2025 End: 01-06-2025 Discharged Recurring Sandra Joaquin PA -Physical Therapy Work Phone: Start: 01-02-2025 End: 01-02-[address] Ethan Avendano MD -Medical Out Work Phone: Start: 01-02-2025 End: 01-02-2025 ambulatory Ethan Avendano Facility:[facility] Start: 12-25-2024 End: 12-25-[address] [facility] Start: 12-25-2024 End: 12-25-2024 ambulatory Ethan Avendano Facility:[facility] Start: 12-19-2024 Registered Recurring Sandra Joaquin PA -Physical Therapy Work Phone: Start: 12-17-2024 End: 12-17-[address] Ethan Avendano MD Work Phone: [facility] Work Phone: Start: 12-17-2024 End: 12-17-[address] Demian Ramsay MD -Cardiovascular Services Work Phone: Start: 12-17-2024 End: 12-17-2024 ambulatory Demian Ramsay Facility:[facility] Start: 12-05-2024 End: 12-05-[address] Ethan Avendano MD -Medical Out Work Phone: Start: 12-05-2024 End: 12-05-[address] Ethan Avendano MD Work Phone: [facility] Work Phone: Start: 12-04-2024 Registered Recurring Sandra ALVAREZ -Physical Therapy Work Phone: Start: 11-28-2024 End: 11-28-[address] Demian Ramsay MD -[facility] Work Phone: Start: 11-28-2024 End: 11-28-2024 ambulatory Ethan Avendano [facility] Start: 11-07-2024 End: 11-07-[address] Ethan Avendano MD -Medical Out Work Phone: Start: 11-07-2024 End: 11-07-[address] Ethan Avendano MD Work Phone: [facility] Work Phone: Start: 10-29-2024 End: 10-29-[address] Ethan Avendano MD Work Phone: [facility] Work Phone: Start: 10-29-2024 End: 10-29-[address] [facility] Start: 10-29-2024 End: 10-29-2024 ambulatory Ethan Avendano Facility:[facility] Start: 10-10-2024 End: 10-10-[address] Ethan Avendano MD -Medical Out Work Phone: Start: 10-10-2024 End: 10-10-2024 ambulatory Ethan Avendano Facility:[facility] Start: 09-11-2024 End: 09-11-[address] Jameel Oseguera MD -Radiology, [facility] Work Phone: Start: 09-11-2024 End: 09-11-2024 ambulatory Jameel Oseguera Facility:[facility] Start: 09-05-2024 End: 09-05-[address] Ethan Avendano MD -Medical Out Work Phone: Start: 09-05-2024 End: 09-05-2024 ambulatory Ethan Avendano Facility:[facility] Start: 08-23-2024 Non-patient / Non-visit Dr. Matilde Oseguera MD -[facility] Start: 08-23-2024 End: 08-23-2024 Admission to same day surgery center Dr. Jameel Oseguera MD -Endoscopy Work Phone: Start: 08-23-2024 End: 08-23-2024 ambulatory Jameel Oseguera Facility:[facility] Start: 08-08-2024 End: 08-08-[address] Ethan Avendano MD -Medical Out Work Phone: Start: 08-08-2024 End: 08-08-2024 ambulatory Ethan Avendano Facility:[facility] Start: 07-11-2024 End: 07-11-[address] Ethan Avendano MD -Medical Out Work Phone: Start: 07-11-2024 End: 07-11-2024 ambulatory Ethan Avendano Facility:[facility] Start: 07-10-2024 End: 07-10-2024 ambulatory Jameel Oseguera [place] Start: 06-06-2024 End: 06-06-2024 ambulatory Ethan Avendano Facility:[facility] Start: 01-04-2024 End: 01-04-[address] Ethan Avendano Work Phone: [facility] Work Phone: Start: 01-04-2024 End: 01-04-[address] Ethan Avendano Work Phone: [facility] Out Work Phone: Start: 12-07-2023 End: 12-07-[address] Ethan Avendano Work Phone: [facility] Work Phone: Start: 12-07-2023 End: 12-07-[address] Ethan Avendano Work Phone: [facility] Work Phone: Start: 11-16-2023 End: 11-16-[address] Ethan Avendano Work Phone: [facility] Work Phone: Start: 11-16-2023 End: 11-16-[address] Ethan Avendano Work Phone: [facility] Start: 11-09-2023 End: 11-09-[address] Ethan Avendano Work Phone: [facility] Work Phone: Start: 11-09-2023 End: 11-09-[address] Ethan Avendano Work Phone: [facility] Out Work Phone: Start: 10-10-2023 End: 10-10-[address] Ethan Avendano Work Phone: [facility] Work Phone: Start: 10-06-2023 End: 10-06-2023 ambulatory FLORENCE EUGENE [facility]:[id number] Start: 10-05-2023 End: 10-05-2023 ambulatory [facility] Work Phone: Start: 10-05-2023 End: 10-05-2023 Patient encounter procedure [facility] Work Phone: Start: 09-07-2023 End: 09-07-2023 ambulatory [facility] Work Phone: Start: 09-07-2023 End: 09-07-2023 Patient encounter procedure [facility] Work Phone: Start: 08-10-2023 End: 08-10-2023 Patient encounter procedure [facility] Work Phone: Start: 07-06-2023 End: 07-06-[address] Ethan Avendano Work Phone: [facility] Work Phone: Start: 07-06-2023 End: 07-06-[address] [facility] Start: 06-08-2023 End: 06-08-[address] [facility] Start: 05-10-2023 End: 05-10-[address] Ethan Avendano Work Phone: [facility] Work Phone: Start: 05-10-2023 End: 05-10-[address] [facility] Start: 05-05-2023 Non-patient / Non-visit Dr. Abdulkadir Avendano Work Phone: [facility] Start: 05-05-2023 End: 05-05-[address] Ethan Avendano Work Phone: [facility] Work Phone: Start: 05-05-2023 End: 05-05-[address] Ethan Avendano Work Phone: [facility]-Cardiovascular Services Work Phone: Start: 04-05-2023 End: 04-05-[address] Ethan Avendano Work Phone: [facility] Work Phone: Start: 04-05-2023 End: 04-05-[address] [facility] Start: 03-23-2023 End: 03-23-[address] Ethan Avendano Work Phone: [facility]-Laboratory Work Phone: Start: 03-08-2023 End: 03-08-[address] Ethan Avendano Work Phone: [facility] Work Phone: Start: 03-08-2023 End: 03-08-[address] [facility] Start: 02-03-2023 End: 02-03-[address] Ethan Avendano Work Phone: [facility] Work Phone: Start: 02-03-2023 End: 02-03-[address] [facility] Start: 02-01-2023 End: 02-01-[address] Ethan Avendano Work Phone: [facility] Work Phone: Start: 02-01-2023 End: 02-01-[address] Ethan Avendano Work Phone: [facility]-Laboratory Start: 02-01-2023 End: 02-01-[address] Ethan Avendano Work Phone: [facility] Start: 01-05-2023 End: 01-05-2023 ambulatory [facility] Work Phone: Start: 01-05-2023 End: 01-05-2023 [facility] Start: 12-29-2022 End: 12-29-2022 ambulatory LACY GOLDBERG Facility:[facility] Start: 12-29-2022 End: 12-29-2022 Patient encounter procedure Latisha Robles MD Work Phone: Neurology Comment on above: Parkinson disease (H CC) (Primary Dx) Start: 12-08-2022 End: 12-08-2022 ambulatory [facility] Work Phone: Start: 12-08-2022 End: 12-08-2022 [facility] Start: 11-16-2022 End: 11-16-2022 ambulatory [facility] Work Phone: Start: 11-16-2022 End: 11-16-2022 Discharged Recurring [facility]-Physical Therapy Start: 11-04-2022 End: 11-04-2022 Patient encounter procedure [facility] Out Start: 10-07-2022 End: 10-07-2022 ambulatory [facility] Work Phone: Start: 10-07-2022 End: 10-07-2022 Patient encounter procedure [facility] Out Start: 09-19-2022 End: 09-19-2022 ambulatory [facility] Work Phone: Start: 09-19-2022 End: 09-19-2022 Patient encounter procedure [facility] Start: 09-09-2022 End: 09-09-2022 ambulatory [facility] Work Phone: Start: 09-09-2022 End: 09-09-2022 Patient encounter procedure [facility] Out Start: 08-24-2022 End: 08-24-2022 ambulatory [facility] Work Phone: Start: 08-24-2022 End: 08-24-2022 Patient encounter procedure [facility] Start: 08-16-2022 End: 08-16-2022 ambulatory Florence Eugene OT/L [facility] Start: 08-16-2022 End: 08-16-2022 Coordination of care plan Florence Eugene OT[facility] [place] Comment on above: Parkinson disease (H CC) (Primary Dx); Abnormality of gait and mobility; Abnormal coordination; Irregular eye movements Start: 08-15-2022 End: 08-15-2022 ambulatory [facility] Work Phone: Start: 08-15-2022 End: 08-15-[address] Ethan Avendano [facility] Start: 08-15-2022 End: 08-15-2022 ambulatory Florence Eugene OT/L [facility] Start: 08-15-2022 End: 08-15-2022 Coordination of care plan Florence Eugene OT/[facility] [place] Comment on above: Parkinson disease (H CC) (Primary Dx); Abnormality of gait and mobility; Abnormal coordination; Irregular eye movements Start: 08-11-2022 End: 08-11-[address] Ethan Avendano Work Phone: [facility] Work Phone: Start: 08-11-2022 End: 08-11-[address] Ethan Avendano Work Phone: [facility] Start: 08-04-2022 End: 08-04-2022 ambulatory [facility] Work Phone: Start: 08-04-2022 End: 08-04-[address] Ethan Avendano Work Phone: [facility]-Medical Out Start: 07-15-2022 End: 07-15-[address] Ethan Avendano Work Phone: [facility] Work Phone: Start: 07-15-2022 End: 07-15-[address] Ethan Avendano Work Phone: [facility] Start: 07-08-2022 End: 07-08-[address] Ethan Avendano Work Phone: [facility] Work Phone: Start: 07-08-2022 End: 07-08-[address] Ethan Avendano Work Phone: [facility]-Medical Out Start: 07-07-2022 End: 07-07-[address] Ethan Avendano Work Phone: [facility] Start: 07-04-2022 End: 07-04-[address] Ethan Avendano Work Phone: [facility]-Speech Therapy Start: 07-04-[address] [facility] Start: 06-13-[address] [facility] Start: 06-10-2022 End: 06-10-[address] [facility] Start: 06-07-2022 End: 06-07-[address] Ethan Avendano Work Phone: [facility] Work Phone: Start: 06-07-2022 End: 06-07-[address] Ethan Avendano Work Phone: [facility] Start: 05-06-2022 End: 05-06-[address] Ethan Avendano Work Phone: [facility] Work Phone: Start: 05-06-2022 End: 05-06-[address] [facility] Start: 05-04-[address] [facility] Start: 04-20-2022 Non-patient / Non-visit Dr. Abdulkadir Avendano Work Phone: [facility] Start: 04-20-2022 End: 04-20-[address] Ethan Avendano Work Phone: [facility] Start: 04-08-2022 End: 04-08-[address] [facility] Start: 03-16-2022 End: 03-16-[address] Ethan Avendano Work Phone: [facility] Start: 03-04-2022 End: 03-04-2022 [facility] Start: 02-04-2022 End: 02-04-2022 [facility] Start: 01-07-2022 End: 01-07-2022 [facility] Start: 12-03-2021 End: 12-03-[address] [facility]endano [facility] Start: 12-02-2021 End: 12-02-[address] Ethan Avendano Work Phone: [facility] Start: 11-05-2021 End: 11-05-[address] [facility]end[facility] Start: 10-08-2021 End: 10-08-[address] [facility]end[facility] Start: 09-10-2021 End: 09-10-[address] [facility]end[facility] Start: 09-06-2021 End: 09-06-[address] Ethan Avendano Work Phone: [facility] Start: 08-14-2017 Ambulatory Isaac Prater [facility] [id number] Procedures Date Procedure Procedure Detail Performing Clinician Start: 05-14-2025 Urnls dip stick/tabl et reagent auto microscopy Dr. Ethan Avendano MD Work Phone: Start: 03-26-[address] Ethan [...] Dr. Demian Ramsay MD Comment on above: AYY-OBR-Axpgym RCA w / 2.5 x 12 mm Elunir Stent and MILANA-Mid RCA w/ 3.0 x 33 mm Elunir Stent 03/11/19; PCI-MILANA- Mid LAD w/ 3.0 x 16 mm Synergy MR Stent 03/21/2019 Start: 09-26-2008 Colonoscopy Florence villanueva OT/L Plan of Treatment Date Care Activity Detail Author Start: 09-11-2029 DTaP/Tdap/Td Vaccine s (5 - Td or Tdap) DTaP/Tdap/Td Vaccines (5 - Td or Tdap) [facility] [employer] Start: 06-02-2027 Screening for malign ant neoplasm [facility] Start: 06-25-2026 Urine microalbumin profile DTA P,TDAP,TD (4 - Td or Tdap) [facility] Start: 05-15-2025 [facility] Start: 05-07-2025 Intravenous infusion THER/PROP H/DIAG IV INF [facility] Start: 05-07-2025 Iv infusion therapy prophylaxis/dx ea hour THER/PROPH/DIAG IV INF [facility] Start: 05-05-2025 Influenza vaccination Influenza Vacc ine (#1) [facility] Start: 04-09-2025 Iv infusion therapy prophylaxis/dx ea hour THER/PROPH/DIAG IV INF [facility] Start: 04-09-2025 Iv infusion therapy/prophylaxis /dx 1st to 1 hr THER/PROPH/DIAG IV INF [facility] Start: 04-09-2025 End: 04-09-2025 Patient encounter procedure 04/09/2025 10:15 AM EDT Office Visit [facility] [place] [address] [facility] [address] [place] [address] [phone] Bronson Jarrett MD [address] [place] [address] [phone] [facility] [place] Start: 03-27-2025 Patient discharge [facility] Start: 03-26-2025 Referral to service [facility] Start: 03-26-2025 Speech therapy assessment [facility] Start: 03-26-2025 Following clinical p athway protocol [facility] Start: 03-26-2025 Aspiration precautions [facility] Start: 03-26-2025 Assessment of risk o f venous thromboembolism [facility] Start: 03-26-2025 Fall prevention [facility] Start: 03-26-2025 Incentive spirometry [facility] Start: 03-26-2025 Inhalation therapy procedure [facility] Start: 03-26-2025 Insertion of cathete r into peripheral vein [facility] Start: 03-26-2025 Introduction of urin link catheter [facility] Start: 03-26-2025 Measuring intake and output [facility] Start: 03-26-2025 Oxygen therapy [facility] Start: 03-26-2025 Providing care accor ding to standard [facility] Start: 03-26-2025 Provision of activit y privileges [facility] Start: 03-26-2025 Referral for physica l therapy [facility] Start: 03-26-2025 Referral to occupati onal therapist [facility] Start: 03-26-2025 Referral to service [facility] Start: 03-26-2025 Telemedicine consult ation with patient [facility] Start: 03-26-2025 [facility] Start: 2025 Verification routine [facility] Start: 2025 Admission procedure [facility] Start: 2025 End: 03-26-2025 Consultation [facility] Start: 03-16-2025 [facility] Start: 03-05-2025 Iv infusion therapy prophylaxis/dx ea hour THER/PROPH/DIAG IV INF [facility] Start: 03-05-2025 Iv infusion therapy/prophylaxis /dx 1st to 1 hr THER/PROPH/DIAG IV INF [facility] Start: 01-02-2025 Iv infusion therapy prophylaxis/dx ea hour THER/PROPH/DIAG IV INF [facility] Start: 01-02-2025 Iv infusion therapy/prophylaxis /dx 1st to 1 hr THER/PROPH/DIAG IV INF [facility] Start: 12-05-2024 Iv infusion therapy prophylaxis/dx ea hour THER/PROPH/DIAG IV INF [facility] Start: 12-05-2024 Iv infusion therapy/prophylaxis /dx 1st to 1 hr THER/PROPH/DIAG IV INF [facility] Start: 10-10-2024 Iv infusion therapy prophylaxis/dx ea hour THER/PROPH/DIAG IV INF [facility] Start: 10-10-2024 Iv infusion therapy/prophylaxis /dx 1st to 1 hr THER/PROPH/DIAG IV INF [facility] Start: 08-23-2024 Patient discharge [facility] Start: 08-20-2024 COVID-19 Vaccine () COVID-19 Vaccine () [facility] Start: 12-07-2023 Iv infusion therapy prophylaxis/dx ea hour THER/PROPH/DIAG IV INF [facility] Start: 12-07-2023 Iv infusion therapy/prophylaxis /dx 1st to 1 hr THER/PROPH/DIAG IV INF [facility] Start: 09-07-2023 Iv infusion therapy prophylaxis/dx ea hour THER/PROPH/DIAG IV INF [facility] Start: 09-07-2023 Iv infusion therapy/prophylaxis /dx 1st to 1 hr THER/PROPH/DIAG IV INF [facility] Start: 05-10-2023 Iv infusion therapy prophylaxis/dx ea hour THER/PROPH/DIAG IV INF [facility] Start: 05-10-2023 Iv infusion therapy/prophylaxis /dx 1st to 1 hr THER/PROPH/DIAG IV INF [facility] Start: 04-05-2023 Iv infusion therapy prophylaxis/dx ea hour THER/PROPH/DIAG IV INF [facility] Start: 04-05-2023 Iv infusion therapy/prophylaxis /dx 1st to 1 hr THER/PROPH/DIAG IV INF [facility] Start: 03-08-2023 Iv infusion therapy prophylaxis/dx ea hour THER/PROPH/DIAG IV INF [facility] Start: 03-08-2023 Iv infusion therapy/prophylaxis /dx 1st to 1 hr THER/PROPH/DIAG IV INF [facility] Start: 02-03-2023 Iv infusion therapy prophylaxis/dx ea hour THER/PROPH/DIAG IV INF [facility] Start: 02-03-2023 Iv infusion therapy/prophylaxis /dx 1st to 1 hr THER/PROPH/DIAG IV INF [facility] Start: 01-05-2023 Iv infusion therapy prophylaxis/dx ea hour THER/PROPH/DIAG IV INF [facility] Start: 01-05-2023 Iv infusion therapy/prophylaxis /dx 1st to 1 hr THER/PROPH/DIAG IV INF [facility] Start: 12-08-2022 Iv infusion therapy prophylaxis/dx ea hour THER/PROPH/DIAG IV INF [facility] Start: 12-08-2022 Iv infusion therapy/prophylaxis /dx 1st to 1 hr THER/PROPH/DIAG IV INF [facility] Start: 11-04-2022 Iv infusion therapy prophylaxis/dx ea hour THER/PROPH/DIAG IV INF [facility] Start: 11-04-2022 Iv infusion therapy/prophylaxis /dx 1st to 1 hr THER/PROPH/DIAG IV INF [facility] Start: 10-07-2022 Iv infusion therapy prophylaxis/dx ea hour THER/PROPH/DIAG IV INF [facility] Start: 10-07-2022 Iv infusion therapy/prophylaxis /dx 1st to 1 hr THER/PROPH/DIAG IV INF [facility] Start: 09-09-2022 Iv infusion therapy prophylaxis/dx ea hour THER/PROPH/DIAG IV INF [facility] Start: 09-09-2022 Iv infusion therapy/prophylaxis /dx 1st to 1 hr THER/PROPH/DIAG IV INF [facility] Start: 09-04-2022 ADVANCE DIRECTIVE DISCUSSION ADVANCE DIRECTIVE DISCUSSION [facility] Start: 09-04-2022 DEPRESSION ASSESSMENT DEPRESSION ASS ESSMENT [facility] Start: 08-04-2022 Iv infusion therapy prophylaxis/dx ea hour THER/PROPH/DIAG IV INF [facility] Work Phone: Start: 08-04-2022 Iv infusion therapy/prophylaxis /dx 1st to 1 hr THER/PROPH/DIAG IV INF [facility] Work Phone: Start: 07-08-2022 Iv infusion therapy prophylaxis/dx ea hour THER/PROPH/DIAG IV INF [facility] Work Phone: Start: 07-08-2022 Iv infusion therapy/prophylaxis /dx 1st to 1 hr THER/PROPH/DIAG IV INF [facility] Work Phone: Start: 05-06-2022 Iv infusion therapy prophylaxis/dx ea hour THER/PROPH/DIAG IV INF [facility] Work Phone: Start: 05-06-2022 Iv infusion therapy/prophylaxis /dx 1st to 1 hr THER/PROPH/DIAG IV INF [facility] Work Phone: Start: 04-08-2022 Iv infusion therapy prophylaxis/dx ea hour THER/PROPH/DIAG IV INF [facility] Work Phone: Start: 04-08-2022 Iv infusion therapy/prophylaxis /dx 1st to 1 hr THER/PROPH/DIAG IV INF [facility] Work Phone: Start: 03-04-2022 Iv infusion therapy prophylaxis/dx ea hour THER/PROPH/DIAG IV INF [facility] Work Phone: Start: 03-04-2022 Iv infusion therapy/prophylaxis /dx 1st to 1 hr THER/PROPH/DIAG IV INF [facility] Work Phone: Start: 02-04-2022 Iv infusion therapy prophylaxis/dx ea hour THER/PROPH/DIAG IV INF [facility] Work Phone: Start: 02-04-2022 Iv infusion therapy/prophylaxis /dx 1st to 1 hr THER/PROPH/DIAG IV INF [facility] Work Phone: Start: 12-03-2021 Iv infusion therapy prophylaxis/dx ea hour THER/PROPH/DIAG IV INF [facility] Work Phone: Start: 12-03-2021 Iv infusion therapy/prophylaxis /dx 1st to 1 hr THER/PROPH/DIAG IV INF [facility] Work Phone: Start: 09-04-2021 ADVANCE DIRECTIVE DISCUSSION ADVANCE DIRECTIVE DISCUSSION [facility] Start: 09-04-2021 DEPRESSION ASSESSMENT DEPRESSION ASS ESSMENT [facility] Start: 06-23-2021 LIPID SCREEN LIPID SCREEN [facility] Start: 06-23-2019 DIABETES SCREEN DIABETES SCREEN [facility] Start: 06-13-2019 PNEUMOCOCCAL: 65+ (4 - PPSV23 if available, else PCV20) PNEUMOCOCCAL: 65+ (4 - PPSV23 if available, else PCV20) [facility] Start: 09-26-[address] [facility] Start: 09-26-2018 COLORECTAL CANCER SCREENING COLORECTAL CANCER SCREENING [facility] Start: 07-20-2014 FECAL OCCULT BLOOD FECAL OCCULT BLOO D [facility] Start: 1997 COLOGUARD (FIT-DNA) COLOGUARD (FIT-D NA) [facility] Start: [address] COLONOGRAPHY [facility] Start: 1997 SIGMOIDOSCOPY SIGMOIDOSCOPY Kaveh meyers [facility] Start: 1971 SHINGRIX VACCINE (1 of 2) DILLON GRIX VACCINE (1 of 2) [facility] Start: 1970 HEPATITIS C SCREENING HEPATITIS C [facility] Start: 1970 Hepatitis C screening Hepatitis C [facility] Start: 1964 Depression Monitoring Depression [facility] Start: 1952 Lipid panel Lipid Panel [facility] Start: 1952 Medicare Annual Well ness (AWV) Medicare Annual Wellness (AWV) [facility] Start: 1950 Screening for malign ant neoplasm of colon [facility] Alanine aminotransfe rase [Enzymatic activity/volume] in Serum or Plasma [facility] Albumin [Mass/volume ] in Serum or Plasma [facility] Alkaline phosphatase [Enzymatic activity/volume] in Serum or Plasma [facility] Anion gap in Serum o r Plasma [facility] Bilirubin, total measurement [facility] BUN/Creatinine ratio [facility] Calcium [Mass/volume ] in Serum or Plasma [facility] Carbon dioxide, tota l [Moles/volume] in Central venous blood [facility] Creatinine [Mass/vol ume] in Serum or Plasma [facility] Erythrocyte mean corpuscular volume determination [facility] Glucose [Mass/volume ] in Serum or Plasma [facility] Hematocrit [Volume Fraction] of Blood [facility] Hemoglobin [Mass/vol ume] in Blood [facility] Leukocytes [#/volume ] in Blood [facility] Mean corpuscular hemoglobin concentration determination [facility] Mean corpuscular hemoglobin determination [facility] Measurement of renal function [facility] Neutrophil count [facility] Neutrophil percent differential count [facility] Patient Education [facility] Work Phone: Patient referral [facility] Work Phone: Platelets [#/volume] in Blood [facility] Potassium measurement [facility] Procalcitonin [Mass/volume] in Serum or Plasma by Immunoassay [facility] Red blood cell count [facility] Red cell distributio n width determination [facility] Serum chloride measurement [facility] Sodium measurement [facility] Tissue exam [facility] Work Phone: Comment on above: Release Upon Gregory gleason for 1 Occurrences starting 03/18/2025, 1 completed Total protein measurement [facility] Urea nitrogen [Mass/volume] in Serum or Plasma [facility] Carotid arteries [facility] Carotid arteries [facility] Immunizations Immunization Date Immunization Notes Care Provider Fa darbyty 06-25-2024 influenza virus vacc ine, unspecified formulation Bhanu Hunter DO Work Phone: [facility] 12-09-2020 Covid (Moderna) Dr. Ethan Hagan Work Phone: [facility] 11-11-2020 Covid (Moderna) Dr. Ethan Hagan Work Phone: [facility] 06-25-2016 influenza, injectabl e, quadrivalent, contains preservative Florence Eugene OT/L [facility] 06-25-2016 tetanus toxoid, redu manas diphtheria toxoid, and acellular pertussis vaccine, adsorbed Florence Eugene OT/L [facility] 07-17-2015 pneumococcal conjuga te vaccine, 13 valent Florence Eugene OT/L [facility] Work Phone: 06-18-2015 influenza, high dose seasonal, preservative-free Florence Eugene OT/L [facility] 06-13-2014 influenza, seasonal, injectable Florence Eugene OT/L [facility] 06-13-2014 pneumococcal polysaccharide vaccine, 23 valent Florence Jeff OT/L [facility] 07-11-2013 influenza virus vacc ine, unspecified formulation Florence Eugene OT/L [facility] 07-14-2009 novel influenza-H1N1 -09, all formulations Florencestephen Eugene OT/[facility] Work Phone: 05-04-2007 pneumococcal polysaccharide vaccine, 23 valent Florence Hopek OT/L [facility] Work Phone: 05-04-2007 tetanus toxoid, redu manas diphtheria toxoid, and acellular pertussis vaccine, adsorbed Florence Sainzinik OT/L [facility] Work Phone: 05-04-1994 diphtheria and tetan us toxoids, adsorbed for pediatric use Florence Hopek OT/L [facility] Work Phone: Payers Date Payer Category Payer Medicare supplementa l policy (as second payer) O MEDICARE SUPPLEMENT [id number] 2024 Self-pay [id number] 2022 [facility] [id number] 2022-Present [phone] [address] [place] [address] Indemnity [id number] 2022 Unknown [id number] 2017 Medicare [id number] 2017 Medicare [id number] Medicare [id number] Unknown [id number] [id number] .462 Unknown [id number] 2.16.840.1.740382.3.579.2 .462 Unknown [id number] 2.16.840.1.454151.3.579.2 .462 Unknown [id number] 2.840.1.219694.3.579.2 .462 Unknown [id number] 2.16.840.1.312690.3.579.2 .462 Unknown [id number] 2.840.1.626762.3.579.2 .462 Unknown [id number] 2.840.1.306486.3.579.2 .462 Unknown [id number] 2.840.1.009504.3.579.2 .462 Unknown [id number] 2.840.1.525172.3.579.2 .462 Unknown [id number] 2.840.1.214161.3.579.2 .462 Unknown [id number] 2.840.1.871012.3.579.2 .462 Unknown [id number] 2.840.1.947563.3.579.2 .462 Unknown [id number] 2.840.1.659758.3.579.2 .462 Unknown [id number] 2.840.1.143288.3.579.2 .462 Unknown [id number] 2.840.1.015508.3.579.2 .462 Unknown [id number] 2.840.1.252158.3.579.2 .462 Unknown [id number] .840.1.609549.3.579.2 .462 Unknown [id number] 2.840.1.269097.3.579.2 .462 Unknown [id number] 2.840.1.955929.3.579.2 .462 Unknown [id number] 2.840.1.872149.3.579.2 .462 Unknown [id number] 2.16.840.1.460152.3.579.2 .462 Unknown [id number] 2.16.840.1.726435.3.579.2 .462 Unknown [id number] 2.16.840.1.386303.3.579.2 .462 Unknown [id number] 2.16.840.1.408630.3.579.2 .462 Unknown [id number] 2.16.840.1.802237.3.579.2 .462 Unknown [id number] 2.16.840.1.443649.3.579.2 .462 Unknown [id number] 2.16840.1.645182.3.579.2 .462 Unknown [id number] 2.840.1.066050.3.579.2 .462 Unknown [id number] 2.840.1.585108.3.579.2 .462 Social History Date Type Detail Facility Start: 09-06-2021 End: 10-10-2023 Tobacco smoking status SDIS Unknown if ever smoked [facility] Start: 12-12-2020 Spouse/ Significant Other [facility] Start: 12-24-2020 Non-smoker [facility] Start: 1950 Sex Assigned At Male [facility] Start: 08-27-2021 End: 05-14-2025 Tobacco smoking status NHIS Never smoked tobacco [facility] Start: 08-27-2021 End: 12-29-2022 Tobacco use and exposure Smokeless tobacco non-user [facility] Start: 04-20-2022 End: 12-29-2022 Alcohol intake Current non-drinker of alcohol (finding) [facility] Start: 1950 Sex Assigned At Not on file [facility] Start: 11-08-2024 End: 03-16-2025 Sex Male (finding) [facility] Start: 03-16-2025 History of Social function [facility] Start: 03-16-2025 Alcohol Use Disorder Identification Test - Consumption [AUDIT-C] [facility] How often to you hav e a drink containing alcohol? Never [facility] How many standard dr inks containing alcohol do you have on a typical day? Patient does not drink [facility] Goals Date Patient Goal Desired Activity /State Functional Status Date Assessment Result Facility 03-27-2025 Functional status Chair [facility] Work Phone: 03-16-2025 Total score [AUDIT-C] 0 03/16/20 25 6:27 AM EDT Martha Park RN [facility] Mental Status Date Assessment Result Facility 06-04-2025 Cognitive function Voice/Name [facility] Work Phone: 05-14-2025 Cognitive function Level Of Cons ciousness Awake;Alert;Appropriate [facility] Work Phone: 05-07-2025 Cognitive function Voice/Name [facility] Work Phone: 04-09-2025 Cognitive function [facility]/Name [facility] Work Phone: 03-27-2025 Cognitive function Cooperative;D istractible;Impul sive [facility] Work Phone: 03-27-2025 Cognitive function Voice/Name [facility] Work Phone: 03-05-2025 Cognitive function Voice/Name [facility] Work Phone: 02-05-2025 Cognitive function Voice/Name [facility] Work Phone: 01-02-2025 Cognitive function Voice/Name [facility] Work Phone: 12-05-2024 Cognitive function Awake;Alert;A ppropriate;Follow s Commands [facility] Work Phone: 11-07-2024 Cognitive function Voice/Name [facility] Work Phone: 10-10-2024 Cognitive function Voice/Name [facility] Work Phone: 09-05-2024 Cognitive function Voice/Name [facility] Work Phone: 08-23-2024 Cognitive function Level Of Cons ciousness Follows Commands;Drowsy [facility] Work Phone: 08-23-2024 Cognitive function Voice/Name [facility] Work Phone: 07-11-2024 Cognitive function Awake;Alert;A ppropriate;Follow s Commands [facility] Work Phone: 01-04-2024 Cognitive function Awake;Alert;A ppropriate;Follow s Commands [facility] Work Phone: 12-07-2023 Cognitive function Awake;Alert;A ppropriate;Follow s Commands [facility] Work Phone: 11-09-2023 Cognitive function Awake;Alert;A ppropriate;Follow s Commands [facility] Work Phone: 10-05-2023 Cognitive function Awake;Alert;A ppropriate;Follow s Commands [facility] Work Phone: 09-07-2023 Cognitive function Awake;Alert;A ppropriate;Follow s Commands [facility] Work Phone: 08-10-2023 Cognitive function Voice/Name [facility] Work Phone: 07-06-2023 Cognitive function Voice/Name [facility] Work Phone: 06-08-2023 Cognitive function Awake;Alert;A ppropriate;Follow s Commands [facility] Work Phone: 05-10-2023 Cognitive function Voice/Name [facility] Work Phone: 04-05-2023 Cognitive function Voice/Name [facility] Work Phone: 03-08-2023 Cognitive function Voice/Name [facility] Work Phone: 02-03-2023 Cognitive function Awake;Alert;A ppropriate;Follow s Commands [facility] Work Phone: 01-05-2023 Cognitive function Voice/Name [facility] Work Phone: 12-08-2022 Cognitive function Voice/Name [facility] Work Phone: 11-04-2022 Cognitive function Voice/Name [facility] Work Phone: 10-07-2022 Cognitive function Awake;Alert;A ppropriate;Follow s Commands [facility] Work Phone: 08-04-2022 Cognitive function Voice/Name [facility] Work Phone: 07-08-2022 Cognitive function Voice/Name [facility] Work Phone: 06-10-2022 Cognitive function Voice/Name [facility] Work Phone: 05-06-2022 Cognitive function Level Of Cons ciousness Awake;Alert;Appropriate;Follow s Commands [facility] Work Phone: 04-08-2022 Cognitive function Level Of Cons ciousness Awake;Alert;Appropriate;Follow s Commands [facility] Work Phone: 03-04-2022 Cognitive function Voice/Name [facility] [facility] Work Phone: 02-04-2022 Cognitive function Awake;Alert;A ppropriate;Follow s Commands [facility] Work Phone: 01-07-2022 Cognitive function Awake;Alert;A ppropriate;Follow s Commands [facility] Work Phone: 12-03-2021 Cognitive function Awake;Alert;A ppropriate;Follow s Commands [facility] Work Phone: 11-05-2021 Cognitive function Awake;Alert;A ppropriate;Follow s Commands [facility] Work Phone: 10-08-2021 Cognitive function Level Of Cons ciousness Awake;Alert;Appropriate;Follow s Commands [facility] Work Phone: 09-10-2021 Cognitive function Awake;Alert;A ppropriate;Follow s Commands [facility] Work Phone: Clinical Notes 07-11-2013 to 05-15-2025 Telephone Encounter - Sandra Niall Villa - 04/08/2025 11:04 AM EDTTelephone Encounter - Sandra CNoreen Villa - 04/08/2025 11:04 AM EDTTelephone Encounter - Aiyana Norman - 04/07/2025 6:32 PM EDT Note Date & Type Note Facility 05-15-2025 Discharge summary [facility] 04-08-2025 Telephone encounter Note Spoke with patient's , we did not reschedule as of yet due to medical issues. Our office will contact her back after speaking with Dr. Jarrett. [facility] 04-08-2025 Miscellaneous Notes Spoke with patient's , [...] assisted living today. Please contact [facility] and [facility]. Office Name: General Surgery Medication Refills need, if any: n/a Medication Name: n/a documented in this encounter [facility] 04-07-2025 Telephone encounter Note Name of Caller: Garednia Contact Reason for Appointment: [facility] called to cancel patient's 04/09/25 post-op appointment. [facility] stated patient has been in and out of hospital since his surgery. [facility] stated patient just moved into an assisted living today. Please contact [facility] and advise. Office Name: General Surgery Medication Refills need, if any: n/a Medication Name: n/a [facility] 04-07-2025 Note [place], [place] DISCHARGE SUMMARY NAME: FRANCISCO RAMOS UNIT #: [id number] ROOM: 311 DOCTOR: DELFINO ARCE MD BIRTHDATE: [birth year] DOS: 04/07/2025 CHIEF COMPLAINT: I came in on Monday and I have Parkinson's, FYI. HISTORY OF PRESENT ILLNESS: This is a 75-year-old white male who was transferred to [facility] from [facility] Room. The patient had been taken there by EMS. After the police were called to his home after a birthday alliance party, the patient became increasingly confused and combative [...] returning home. Instead, he is going to [facility]. MENTAL STATUS AT DISCHARGE: He is alert and oriented to person, possibly place but not time. Mood is euthymic. Affect appropriate. There is no hypomania, stoney or psychosis noted. Short-term memory is poor. FINAL DIAGNOSES: Upon discharge, intermittent explosive disorder, Alzheimer's dementia. DISPOSITION: The patient is going to [facility]. At the time of discharge, he was medically and psychiatrically stable. DELFINO ARCE MD [facility] [place], [place] DISCHARGE SUMMARY NAME: FRANCISCO RAMOS UNIT #: [id number] ROOM: [facility] DOCTOR: DELFINO ARCE MD BIRTHDATE: [birth year] TID: [id number] CM:DISCHARG 0859 DELFINO ARCE MD 04/07/25 1000 interface [facility] 03-27-2025 Discharge summary [facility] 03-27-2025 Discharge summary Note Date/Time March 27, 2025 1:05pm [facility] Medical Records Department [address] [place] [address] Instructions for Home/Discharge Instructions 03/27/25 1016 MR#: [id number] Acct: [id number] Name: FRANCISCO RAMOS Rep #:[id number] : 1950 75 From: Jessica Chris MD [...] Emotions Discharge Orders/Prescriptions Prescriptions: Continued immun glob K-qzg-ncvb-IgA 0-50 10 gram recon soln 20 g .Route .f9fvbwq Patient Comments: Every 4 weeks Rx Instructions: [...] MD; Dr. Ethan Avendano MD ~ Signed [facility] Work Phone: 1(462) 811-798007-24-2025 [facility] Medical Records Department [address] [facility] [place] [address] Discharge Summary 03/27/25 1018 MR#: [id number] Acct: [id number] Name: FRANCISCO RAMOS Rep #: [id number] : 1950 75 From: Jessica Chris MD PCP: Dr. Ethan Avendano MD Status:DIS RENATE Location: [place] [address] Providers Date of Admission: 03/25/25 Date of [...] tab PO DAILY 12/24/13 immune glob,gamma(IgG) 10 nsjj-dbk-kjzt-IgA 0 to 50 mcg/mL IV solution 20 g .Route .n0nblvn 03/04/19 nitroglycerin 0.4 mg sublingual tablet 0.4 [...] accepted in a [facility] facility in [place]. Of note he did receive Seroquel during [...] normoactive bowel sounds, so (more content not included)...[facility]07-23-2025 Progress note Author Lacy Johnston [facility] Note Date/Time March 26, 2025 9:54 pm [facility] Medical Records Department [address] [place] [address] Progress Note - Hospitalist 03/26/252152 MR#: [id number] Acct: [id number] Name: FRANCISCO RAMOS Rep #:[id number] : 1950 75 From: Lacy Johnston MD PCP: Dr. Ethan Avendano MD Status:ADM RENATE Location: [place] [address] Hospitalist Note Patient with continued agitation, more calm during the day, will increase seroquel to 50 mg q HS. 03/26/252153 <Electronically signed by Lacy Johnston MD> Cosigner Signature (if applicable): CC: ~ Signed [facility] Work Phone: 1(994) 531-382607-23-2025 Progress note [facility] Medical Records Department [address] [facility] [place] [address] Progress Note - Hospitalist 03/26/252152 MR#: [id number] Acct: [id number] Name: FRANCISCO RAMOS Rep #:[id number] : 1950 75 From: Lacy Johnston MD PCP: Dr. Ethan Avendano MD Status:ADM RENATE Location: [place] [address] Hospitalist Note Patient with continued agitation, more calm during the day, will increase seroquel to 50 mg q HS. 03/26/252153 Cosigner Signature (if applicable): CC: ~ Signed [facility]07-23-2025 Progress note Author Jessica Chris [facility] Note Date/Time March 26, 2025 4:57 pm [facility] Medical Records Department [address] [place] [address] Progress Note 03/26/25 1417 MR#: [id number] Acct: [id number] Name: FRANCISCO RAMOS Rep #:[id number] : 1950 75 From: Jessica Chris MD PCP: Dr. Ethan Avendano MD Status:ADM RENATE Location: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 Goal: Remains free of injury from restraints (Restraint for Interference with Director Of Oncology) Outcome: Progressing Goal: Free from restraint(s) (Restraint for Interference with Director Of Oncology) Outcome: Progressing * Care Coordination - Renetta [...] GMLOS: No GMLOS Documented documented in this [facility]07-18-2025 NoteProblem: Safety - Non- violent/Interference with Medical Treatment Restraint Goal: Remains free of injury from restraints (Restraint for Interference with Director Of Oncology) Outcome: Progressing Goal: Free from restraint(s) (Restraint for Interference with Director Of Oncology) Outcome: Progressing Problem: Problem Interventions Goal: Assess Nutritional Intake Outcome: [facility]ing[facility] Plan of care note* Care Plan - Lu Bee RN - 03/21/2025 11:31 AM EDT Problem: Safety - Non-violent/Interference with Medical Treatment Restraint Goal: Remains free of injury from restraints (Restraint for Interference with Director Of Oncology) Outcome: Progressing Goal: Free from restraint(s) (Restraint for Interference with Director Of Oncology) Outcome: Progressing Problem: Problem Interventions Goal: Assess Nutritional Intake Outcome: Progressing [id number] Note* Care Coordination - Cassia Dexter - 03/21/2025 10:54 AM EDT ADRIENNE provided patient and with [employer]. Street card has resources such as transportation, food, utilities etc. [facility] [id number] Note* Care Coordination - Cassia Dexter - 03/21/2025 10:54 AM EDT ADRIENNE provided patient and with [employer]. Street card has resources such as transportation, food, utilities etc. [place] [id number] NoteProblem: Safety - Non-violent/Interference with Medical Treatment Restraint Goal: Remains free of injury from restraints (Restraint for Interference with Director Of Oncology) Outcome: Progressing Goal: Free from restraint(s) (Restraint for Interference with Director Of Oncology) Outcome: Progressing Problem: Problem Interventions Goal: Assess Nutritional Intake Outcome: [facility]ing[facility] Plan of care note* Care Plan - Lu Bee RN - 03/21/2025 9:55 AM EDT Problem: Safety - Non-violent/Interference with Medical Treatment Restraint Goal: Remains free of injury from restraints (Restraint for Interference with Director Of Oncology) Outcome: Progressing Goal: Free from restraint(s) (Restraint for Interference with Director Of Oncology) Outcome: Progressing Problem: Problem Interventions Goal: Assess Nutritional Intake Outcome: Progressing [facility] [id number] Note* Home Care - Bang Rowe - 03/21/2025 9:10 AM EDT DME order for FWW placed with Elliot from [facility]. [facility] [id number] Note* Home Care - Bang Rowe - 03/21/2025 9:10 AM EDT [facility] [id number] Note* Home Care - Bang Rowe - 03/21/2025 8:55 AM EDT Educated patient and on Home Care and services available. Patient is agreeable to receiving home care services at this time. Patient was given choice of home care agencies available in the area and is agreeable to having referrals made with agencies that staff the patients service location. Referrals have been sent via [employer]. Spoke with pts regarding all accepting agencies. [facility] is [facility]. Agency notified via CareOcelus. [facility] [id number] Note* Home Care - Bang Rowe - 03/21/2025 8:55 AM EDT Educated patient and on Home Care and services available. Patient is agreeable to receiving home care services at this time. Patient was given choice of home care agencies available in the area and is agreeable to having referrals made with agencies that staff the patients service location. Referrals have been sent via [employer]. Spoke with pts regarding all accepting agencies. [facility] Agency notified via [employer]. [facility] [id number] Note* Care Coordination - Unknown Case Management - 03/21/2025 8:55 AM EDT Patient Choice Patient Name: FRANCISCO RAMOS Date of : 1950 All Providers Sent Referral Name: [facility] (For [facility] Facilities Only) Phone: [phone] Address: [facility] [place] [address] Name: [facility] Phone: [phone] Address: [address] [place] [address] [address]: [facility] Phone: [phone] Address: [address] [place] [address] Name: [facility] Address: [address] [place] [address] Name: [facility] Phone: [phone] Address: [place] [address] Name: [facility] [place] Phone: [phone] Address: [address] [place] [address] Name: [facility] Phone: [phone] Address: [address] [facility] [address] [address] [place] [address] Name: [facility] [place] Phone: [phone] Address: [address] [place] [address] Name: [facility] Phone: [phone] Address: [address] [place] [address] Name: [facility] Phone: [phone] Address: [address] [facility] [address] [place] [address] Name: [facility] Address: [address] [place] [address] Name: [facility] Address: [address] [place] [address] Name: [facility] Phone: [phone] Address: [address] [place] [address] Name: [facility] Phone: [phone] Address: [place] [address] Name: [facility] Address: [address] [place] [address] Name: [facility] Address: [address] [place] [address] Name: [facility] Phone: [phone] Address: [address] [place] [address] Name: [facility] Address: [address] [place] [address] Name: [facility] Address: [address] [place] [address] Name: [facility] [place] [facility]) Phone: [phone] Address: [address] [place] [address] Name: [facility] Phone: [phone] Address: [address] [address] Name: [facility] (Home Health) Address: [address] [place] [address] Name: [facility] Phone: [phone] Address: [address] [place] [address] [place] [id number] Note* Care Coordination - Unknown Case Management - 03/21/2025 8:55 AM EDT Patient Choice Patient Name: FRANCISCO RAMOS Date of : 1950 All Providers Sent Referral Name: [facility] (For [facility] Facilities Only) Phone: [phone] Address: [address] [place] [address] Name: [facility] Phone: [phone] Address: [address] [place] [address] Name: [facility] Phone: [phone] Address: [address] [place] [address] Name: [facility] Address: [address] [place] [address] Name: [facility] Phone: [phone] Address: [place] [address] Name: [facility] Phone: [phone] Address: [address] [place] [address] Name: [facility] Phone: [phone] Address: [address] [facility] [address] [place] [address] Name: [facility] [place] Phone: [phone] Address: [address] [place] [address] Name: [facility] Phone: [phone] Address: [address] [place] [address] Name: [facility] [place] Phone: [phone] Address: [address] [facility] [address] [place] [address] Name: [facility] Address: [address] [place] [address] Name: [facility] Address: [address] [place] [address] Name: [facility] Phone: [phone] Address: [address] [place] [address] Name: [facility] Phone: [phone] Address: [place] [address] Name: [facility] [place] Address: [address] [facility] [address] [place] [address] Name: [facility] Address: [address] [facility] [place] [address] Name: [facility] Phone: [phone] Address: [address] [place] [address] Name: [facility] Address: [address] [place] [address] Name: [facility] Address: [address] [place] [address] Name: [facility] [place] [facility]) Phone: [phone] Address: [address] [place] [address] Name: [facility] ([facility] Phone: [phone] Address: [address] [address] Name: [facility] (Home Health) Address: [address] [place] [address] Name: [facility] Phone: [phone] Address: [address] [place] [address] [facility] [id number] Note* Care Coordination - Renetta Caceres RN - 03/21/2025 8:39 AM EDT Care Management Progress Note Short Medical why still here: Patient remains on H6 s/p Lap sigmoidectomy 03/18/2025 Planned Discharge Disposition: Home Health Services Active discharge order noted. TCC working with home care and socially responsible investment adviser for home going. Barriers/Today we still Wait: coordinating home going with spouse Length of Stay (Days): 5 GMLOS: 4.9 [facility] [id number] Note* Care Coordination - Renetta Caceres RN - 03/21/2025 8:39 AM EDT Care Management Progress Note Short Medical why still here: Patient remains on H6 s/p Lap sigmoidectomy 03/18/2025 Planned Discharge Disposition: Home Health Services Active discharge order noted. TCC working with home care and socially responsible investment adviser for home going. Barriers/Today we still Wait: coordinating home going with spouse Length of Stay (Days): 5 GMLOS: 4.9 [facility] [id number] NoteCare Management Progress Note Short Medical why still here: Patient remains on H6 s/p Lap sigmoidectomy 03/18/2025 Planned Discharge Disposition: Home Health Services Active discharge order noted. TCC working with home care and socially responsible investment adviser for home going. Barriers/Today we still Wait: coordinating home going with spouse Length of Stay (Days): 5 GMLOS: 4.9 [facility]07-18-2025 NoteDischarge Summary Francisco Ramos : 1950 ADMIT DATE: 03/16/2025 DISCHARGE DATE: 03/21/2025 PRIMARY CARE PHYSICIAN: Jameel Oseguera VISIT STATUS: Admission CODE STATUS: DNR-CCA DISCHARGE DIAGNOSES: Principal Problem: Sigmoid volvulus (CMS/HCC) ([facility]) BMI Classification: Estimated body mass index [...] Your Medications These medications were sent to [facility] - [place] [address] [place] [address] acetaminophen 650 MG ER tablet DIET: Adult diet Regular; Low Fiber ACTIVITY: No heavy lifting. COMPLEXITY OF FOLLOW UP: [x] Moderate Complexity: follow up within 7-14 calendar days (52335) [] Severe Complexity: follow up within 7 calendar days (62655) FOLLOW UP TESTING, PENDING RESULTS OR REFERRALS AT TRANSITIONAL CARE VISIT: [] Yes [x] No PENDING STUDIES: No DISPOSITION: Home FACILITY/HOME CARE AGENCY NAME: None Follow up with Bronson Jarrett MD [address] [place] [address] [address] [place] [address] Follow up in 2 week(s) Call in 1-2 days to schedule follow up appt DISCHARGE TIME: > 30 minutes SIGNED: Carmen Cassidy MD General Surgery Resident 03/21/25 7:38 AM This note may have been dictated using Lamoda Practice Edition 2.6 and/or Mirantis Voice Recognition Feature. The document was proofread; however, unrecognized voice recognition mica plate layer errors may be present. [facility]07-18-2025 Hospital course Narrative* Carmen Cassidy MD - 03/21/2025 7:38 AM EDT Images from the original note were not included. Discharge Summary Francisco Ramos : 1950 ADMIT DATE: 03/16/2025 DISCHARGE DATE: 03/22/25 PRIMARY CARE PHYSICIAN: Jameel Oseguera VISIT STATUS: Admission CODE STATUS: DNR-CCA DISCHARGE DIAGNOSES: Principal Problem: Sigmoid volvulus (CMS/HCC) ([facility]) BMI Classification: Estimated body mass index [...] Your Medications These medications were sent to [facility] [address] - [place], [place] - [address] [place] [address] acetaminophen 650 MG ER tablet DIET: Adult diet Regular; Low Fiber ACTIVITY: No heavy lifting. COMPLEXITY OF FOLLOW UP: [x] Moderate Complexity: follow up within 7-14 calendar days (00767) [] Severe Complexity: follow up within 7 calendar days (15765) FOLLOW UP TESTING, PENDING RESULTS OR REFERRALS AT TRANSITIONAL CARE VISIT: [] Yes [x] No PENDING STUDIES: No DISPOSITION: Home FACILITY/HOME CARE AGENCY NAME: None Follow up with Bronson Jarrett MD [address] [place] [phone] Follow up in 2 week(s) Call in 1-2 days to schedule follow up appt DISCHARGE TIME: > 30 minutes SIGNED: Carmen Cassidy MD General Surgery Resident 03/21/25 7:38 AM This note may have been dictated using Geodelic Systemson Medical Practice Edition 2.6 and/or Mirantis Voice Recognition Feature. The document was proofread; however, unrecognized voice recognition mica plate layer errors may be present. Cosigned by Bronson Jarrett MD at 03/21/2025 12:17 PM EDT documented in this [facility]07-18-2025 [facility] Daily Progress Note [...] This note may have been dictated using CQuotient Medical Practice Edition 2.6 and/or Mirantis Voice Recognition Feature. The document was proofread; however, unrecognized voice recognition mica plate layer errors may be present. Attending Supervising Physician's [...] naloxone, ondansetron ODT OR ondansetron, oxyCODONE OR ox[facility]ONESMemorial Healthcare07-18-2025 History of Present illness Narrative* Bronson Jarrett [...] This note may have been dictated using Lamoda Practice Edition 2.6 and/or Mirantis Voice Recognition Feature. The document was proofread; however, unrecognized voice recognition mica plate layer errors may be present. Attending Supervising Physician's [...] This note may have been dictated using CQuotient Medical Practice Edition 2.6 and/or Mirantis Voice Recognition Feature. The document was proofread; however, unrecognized voice recognition mica plate layer errors may be present. Attending Supervising Physician's [...] ondansetron, oxyCODONE OR oxyCODONE * Olivia Noriega, DIAGRAM CLERK - 03/19/2025 2:53 PM EDT Images from the original note were not included. PHYSICAL THERAPY [facility] Treatment Note Name/MRN: Francisco Ramos ([id number]) Date of : 1950 Age: 74 y.o. [facility] Discharge Recommendation: 24 hour supervision [...] reach, left in bed, gait belt, and district sales manager present Restraints: No Education Gait, transfers, balance [...] at 03/19/2025 3:30 PM EDT * Oriana DarcyNoreen Gil, RD - 03/19/2025 12:35 PM EDT Nutrition Assessment Type and Reason for Visit: Initial (diet feed mill lab technician referral for NPO/clear liquids > 3 [...] and drinking well recently. NPO/clear liquids since [facility] admission (3 days).) Weight Loss: (Weight history is limited over past 3 months in [place]. However, he has lost 10# (6.7%)x 4 months (150# on 11/26/24-->140# on 03/16/25)) Body Fat Loss: Unable to assess Muscle Mass Loss: Unable to assess Fluid Accumulation: No significant fluid accumulation (per flow sheets) Director Of Reservations Strength: Not Performed Nutrition Assessment: 74 y.o. male with history of Parkinson's dementia, constipation, ? Prior sigmoid volvulus managed nonoperatively, CAD, HLD. Patient presented from [facility] for abdominal distention and pain. Imaging concern for sigmoid volvulus. He transferred to [facility] for further surgical evaluation. Repeat [...] (kg): 63.5 kg Total Energy Requirements (kcals/day): 9298-0338 kcals per day (25-30) Weight Used for [...] Epic: 155# on 02/12/25, 150# on 11/26/24) Gilead Body Weight (lbs) (Calculated): 154 lbs Gilead Body Weight (Kg) (Calculated): 70 kg BMI [...] soon to determine Oriana Gil RD Contact: *[id number] [1] carbidopa-levodopa, 1 tablet, Oral, BID carbidopa-levodopa, [...] note were not included. OCCUPATIONAL THERAPY [facility] Treatment Note Name/MRN: Francisco Ramos ([id number]) Date of : 1950 Age: 74 y.o. [facility] Discharge Recommendation: 24 hour supervision [...] notified, no alarms engaged upon entry, and district sales manager present Restraints: No Education Education Given To: [...] FA, 1 Self YASHIRA Durant Cosigned by SPRING Norwood/Ricardo at 03/19/2025 3:19 PM EDT * Bronson Jarrett MD - 03/19/2025 7:34 AM EDT Images from the original note were not included. Department of General Surgery Daily Progress Note ADMIT DATE: 03/16/2025 TODAY'S DATE: 03/19/2025 SUBJECTIVE: NAEO. Resting comfortably at bedside, abdomen mildly distended. No family bedside this AM. Pain well controlled. No noted flatus or Bms by the nursing admin overnight. ROS: Noted above unless otherwise mentioned [...] This note may have been dictated using CQuotient Medical Practice Edition 2.6 and/or Mirantis Voice Recognition Feature. The document was proofread; however, unrecognized voice recognition mica plate layer errors may be present. Attending Supervising Physician's [...] note were not included. OCCUPATIONAL THERAPY [facility] Initial Evaluation Name/MRN: Francisco Ramos ([id number]) Evaluation Date: 03/18/2025 Date of : 1950 Admission Date: 03/16/2025 6:13 AM Age: 74 y.o. [facility] Discharge Recommendation: 24 hour supervision [...] in bed, agreeable to OT. Pt with district sales manager present. Pain: Pt denies any current pain. Past Medical History: Medical History[1] Past Surgical History: Surgical History[2] Admission Diagnosis: Patient Active Problem List Diagnosis Date Noted Sigmoid volvulus ([facility]) ([facility]) 03/16/2025 Medical Precautions: No active isolations [...] Responsibilities: Independent Receives Help From: Spouse Active Landscaping Manager: No Prior Level of Function Prior Level [...] on BSC between bathroom and bed. Assistfrom LABORER ROAD for cleanup and pt safety. Device(s) used: [...] of Care supervision is transferred to a [facility] Services Occupational Therapist. Goals and/or [...] This note may have been dictated using Lamoda Practice Edition 2.6 and/or Mirantis Voice Recognition Feature. The document was proofread; however, unrecognized voice recognition mica plate layer errors may be present. Attending Supervising Physician's [...] note were not included. PHYSICAL THERAPY [facility] Initial Evaluation Name/MRN: Francisco Ramos ([id number]) Evaluation Date: 03/17/2025 Date of : 1950 Admission Date: 03/16/2025 6:13 AM Age: 74 y.o. Room/Bed: [facility] A Discharge Recommendation: 24 hour supervision or assist, Home with Home health PT Equipment Needed: No Assessment IMPRESSION: Patient presents status post proctoscopy and rectal tube placement on 03/16 following transfer from [facility] on 03/16 for twisted colon and abdominal [...] Problem List Diagnosis Date Noted Sigmoid volvulus ([facility]) ([facility]) 03/16/2025 Medical Precautions: No active isolations [...] nearby if additional assistance is needed Active Landscaping Manager: N/A Prior Level of Function Prior Level [...] Raw Score (No Stairs) : 17 [facility] Score: Walked 250 ft or more [...] of Care supervision is transferred to a [facility] Services Physical Therapist. Goals and/or treatment plan [...] This note may have been dictated using CQuotient Medical Practice Edition 2.6 and/or Mirantis Voice Recognition Feature. The document was proofread; however, unrecognized voice recognition mica plate layer errors may be present. Attending Supervising Physician's [...] rectal tube was hooked up to a brabosa catheter bag to collect the stool drainage. [...] 03/16/2025 1:10 PM EDT documented in this [facility]07-18-2025 NoteProblem: Safety - Non- violent/Interference with Medical Treatment Restraint Goal: Remains free of injury from restraints (Restraint for Interference with Director Of Oncology) Outcome: Progressing Goal: Free from restraint(s) (Restraint for Interference with Director Of Oncology) Outcome: [facility]07-18-2025 Plan of care note* Care Plan - Kitty Aguilar RN - 03/21/2025 5:26 AM EDT Problem: Safety - Non-violent/Interference with Medical Treatment Restraint Goal: Remains free of injury from restraints (Restraint for Interference with Director Of Oncology) Outcome: Progressing Goal: Free from restraint(s) (Restraint for Interference with Director Of Oncology) Outcome: Progressing [facility] [id number] Note* Home Care - Meghan Sheffield RN - 03/20/2025 4:09 PM EDT Due to patients history with violence against staff and code debo [facility] is unable to accept patient at this time. Referrals sent to other agencies to see if they are able to accept. Industrial Chemicals Supervisor following case for Discharge Needs. [facility] [id number] Note* Home Care - Meghan Sheffield RN - 03/20/2025 4:09 PM EDT Due to patients history with violence against staff and code debo [facility] is unable to accept patient at this time. Referrals sent to other agencies to see if they are able to accept. Industrial Chemicals Supervisor following case for Discharge Needs. [facility] [id number] Note* Care Coordination - Cassia Dexter - [...] are in need of any other services. [facility] [id number] Note* Care Coordination - Cassia Dexter - [...] are in need of any other services. [facility] [id number] Note* Care Coordination - Renetta Caceres RN - 03/20/2025 1:29 PM EDT TCC in to speak with spouse, Gardenia. Gardenia requesting for help in the home. TCC discussed patient going to Rehab for short time, Gardenia declined. TCC reviewed home care and that it is just for short time throughout week. Gardenia agreeable to speak with socially responsible investment adviser. TCC secure message socialworker to see patient. [place] [id number] Note* Care Coordination - Renetta Caceres RN - 03/20/2025 1:29 PM EDT TCC in to speak with spouse, Gardenia. Gardenia requesting for help in the home. TCC discussed patient going to Rehab for short time, Gardenia declined. TCC reviewed home care and that it is just for short time throughout week. [place] agreeable to speak with socially responsible investment adviser. TCC secure message socialworker to see patient. [facility] [id number] NoteProblem: Safety - Non-violent/Interference with Medical Treatment Restraint Goal: Remains free of injury from restraints (Restraint for Interference with Director Of Oncology) Outcome: Progressing Goal: Free from restraint(s) (Restraint for Interference with Director Of Oncology) Outcome: Progressing Problem: Problem Interventions Goal: Assess Nutritional Intake Out[facility]: [facility] Plan of care note* Care Plan - Lu Bee RN - 03/20/2025 10:14 AM EDT Problem: Safety - Non-violent/Interference with Medical Treatment Restraint Goal: Remains free of injury from restraints (Restraint for Interference with Director Of Oncology) Outcome: Progressing Goal: Free from restraint(s) (Restraint for Interference with Director Of Oncology) Outcome: Progressing Problem: Problem Interventions Goal: Assess Nutritional Intake Outcome: Progressing [facility] [id number] Hospital Discharge instructions* Discharge Instructions* Yasmin Barry [...] 03/21/2025 8:55 AM EDT documented in this [facility]07-17-2025 [facility] General Surgery Daily Progress Note ADMIT DATE: [...] This note may have been dictated using Lamoda Practice Edition 2.6 and/or Mirantis Voice Recognition Feature. The document was proofread; however, unrecognized voice recognition mica plate layer errors may be present. Attending Supervising Physician's [...] naloxone, ondansetron ODT OR ondansetron, oxyCODONE OR [facility]COD[facility]ESMem[facility] 03-20-2025 NoteProblem: Problem Interventions Goal: Assess Nutritional Intake Outcome: [facility]07-17-2025 Plan of care note* Care Plan - Triny Garvey RN - 03/20/2025 12:15 AM EDT Problem: Problem Interventions Goal: Assess Nutritional Intake Outcome: Progressing [facility] [id number] Nurse Note* Sheron Baptiste RN - 03/19/2025 [...] that he is not allowed to leave. [facility] [id number] Nurse Note* Sheron Baptiste RN - 03/19/2025 5:37 PM EDT I (EDER ORDONEZ) was called to unit [...] information to fill out an incident report [facility] reports were filled out as well. Nikki Aguilar RN terrazzo supervisor was notified of the incident. documented in this encounterSWestern Reserve HospitalAryvto76-42-1201 Note* Care Coordination - Renetta Caceres RN [...] Length of Stay (Days): 3 GMLOS: 3 [facility] [id number] Note* Care Coordination - Renetta Caceres RN [...] Length of Stay (Days): 3 GMLOS: 3 [facility] CampusCqpqbo96-23-2526 NoteCare Management Progress Note Short Medical why [...] Length of Stay (Days): 3 GMLOS: 3 [facility]07-16-2025 NoteNutrition Assessment Type and Reason for Visit: Initial (diet feed mill lab technician referral for NPO/clear liquids > 3 [...] and drinking well recently. NPO/clear liquids since [facility] admission (3 days).) Weight Loss: (Weight history is limited over past 3 months in [place]. However, he has lost 10# (6.7%) x 4 months (150# on 11/26/24-->140# on 03/16/25)) Body Fat Loss: Unable to assess Muscle Mass Loss: Unable to assess Fluid Accumulation: No significant fluid accumulation (per flow sheets) Director Of Reservations Strength: Not Performed Nutrition Assessment: 74 y.o. male with history of Parkinson's dementia, constipation, ? Prior sigmoid volvulus managed nonoperatively, CAD, HLD. Patient presented from [facility] for abdominal distention and pain. Imaging concern for sigmoid volvulus. He transferred to [facility] for further surgical evaluation. Repeat [...] (kg): 63.5 kg Total Energy Requirements (kcals/day): 6010-4062 kcals per day (25-30) Weight Used for [...] Epic: 155# on 02/12/25, 150# on 11/26/24) Gilead Body Weight (lbs) (Calculated): 154 lbs Gilead Body Weight (Kg) (Calculated): 70 kg BMI [...] soon to determine Oriana Gil RD Contact: *[id number] [1] carbidopa-levodopa, 1 tablet, Oral, BID carbidopa-levodopa, 1.5 tablet, Oral, BID docusate, 50 mg, Oral, Daily enoxaparin, 40 mg, SubCUTAneous, Daily pantoprazole (ProtoNix) 40 mg in sodium chloride (PF) 0.9 % 10 mL injection, 40 mg, IntraVENous, Daily [2] PRN medications: HYDROmorphone, naloxone, ondansetron ODT OR ondansetron, oxyCODONE OR oxyCODONESMemorial Healthcare07-16-2025 Note Problem: Safety - Non-violent/Interference with Medical Treatment Restraint Goal: Remains free of injury from restraints (Restraint for Interference with Director Of Oncology) Outcome: Progressing Goal: Free from restraint(s) (Restraint for Interference with Director Of Oncology) Outcome: [facility]ing[facility]07-16-2025 Plan of care note* Care Plan - Lu Bee RN - 03/19/2025 8:31 AM EDT Problem: Safety - Non-violent/Interference with Medical Treatment Restraint Goal: Remains free of injury from restraints (Restraint for Interference with Director Of Oncology) Outcome: Progressing Goal: Free from restraint(s) (Restraint for Interference with Director Of Oncology) Outcome: Progressing [facility] [id number] NoteDepartment of General Surgery Daily Progress Note ADMIT DATE: 03/16/2025 TODAY'S DATE: 03/19/2025 SUBJECTIVE: NAEO. Resting comfortably at bedside, abdomen mildly distended. No family bedside this AM. Pain well controlled. No noted flatus or Bms by the nursing admin overnight. ROS: Noted above unless otherwise mentioned [...] This note may have been dictated using CQuotient Medical Practice Edition 2.6 and/or Mirantis Voice Recognition Feature. The document was proofread; however, unrecognized voice recognition mica plate layer errors may be present. Attending Supervising Physician's [...] naloxone, ondansetron ODT OR ondansetron, oxyCODONE OR oxyCODONESMemorial Healthcare07-16-2025 Note Problem: Safety - Non-violent/Interference with Medical Treatment Restraint Goal: Remains free of injury from restraints (Restraint for Interference with Director Of Oncology) Outcome: Progressing Goal: Free from restraint(s) (Restraint for Interference with Director Of Oncology) Outcome: [facility]ing[facility]07-16-2025 Plan of care note* Care Plan - Arjun Zhao RN - 03/19/2025 6:32 AM EDT Problem: Safety - Non-violent/Interference with Medical Treatment Restraint Goal: Remains free of injury from restraints (Restraint for Interference with Director Of Oncology) Outcome: Progressing Goal: Free from restraint(s) (Restraint for Interference with Director Of Oncology) Outcome: Progressing [facility] CampusVyephj07-12-6102 Nurse Note* Perioperative Nursing Note - Lynn Sheth RN - 03/18/2025 8:42 PM EDT Report called to H6 NUrse [place] [id number] Nurse Note* Perioperative Nursing Note - Lynn Sheth RN - 03/18/2025 8:16 PM EDT Called and updated pt at this time [id number] NotePatient: Francisco Gross Procedure Summary Date: 03/18/25 Room / Location: [facility] OR Operating Room Anesthesia Start: 1640 Anesthesia Stop: [...] discharged once all PACU criteria has been met.[facility] [id number] NotePatient: Francisco Gross Procedure Summary Date: 03/18/25 Room / Location: [address] Operating Room Anesthesia Start: 1640 Anesthesia Stop: 1918 Procedure: LAPAROSCOPIC, COLECTOMY, SIGMOID, POSSIBLE OPEN, POSSIBLE OSTOMY CREATION (Abdomen) Diagnosis: Sigmoid volvulus (CMS/HCC) ([facility]) Surgeons: Bronson Jarrett MD Responsible Provider: [...] pipe, e-cigarette/vaping/marijuana) If no stop here ([id number]) [id number] PEDIATRIC Prevention of Post Operative [...] for questions and acknowledgement of understanding.[facility]07-15-2025 NoteAirway Date/Time: 03/18/2025 4:48 PM Reason: scheduled Airway not difficult General Information and Staff Patient location during procedure: Procedural Resident/PETROLEUM ENGINEERING TEACHER: GINO Iqbal CRNA Performed: PETROLEUM ENGINEERING TEACHER Patient Condition Indications for airway management: anesthesia [...] attempts: BVM Number of attempts at approach: 1SMemorial Healthcare07-15-2025 Note Peripheral Block Time Out: 03/18/2025 4:49 PM Patient location during procedure: Procedural Start time: 03/18/2025 4:50 PM End time: 03/18/2025 4:54 PM Reason for block: at surgeon's request and post-op pain management Staffing Performed: [place] Resident/PETROLEUM ENGINEERING TEACHER: GINO Eng CRNA Preanesthetic Checklist Completed: patient [...] supine Prep: ChloraPrep Patient monitoring: heart rate, monitoring coordinator, continuous pulse ox and continuous capnometry O2: [...] plane. and Local anesthetic injected without difficultyMedications vntXCDOUrxafy-dbjhhypxiug-jvcvxbbdwlu (TAP) syringe - Injection 60 mL - 03/18/2025 4:50:00 [facility]07-15-2025 Procedure note* Op Note - Bronson Jarrett MD - 03/18/2025 4:41 PM EDT OPERATIVE NOTE PATIENT NAME: Francisco Ramos : 1950 ATTENDING PHYSICIAN: Bronson Jarrett MD PROCEDURE DATE: 03/18/2025 PREOPERATIVE DIAGNOSIS: Sigmoid volvulus POSTOPERATIVE DIAGNOSIS: Same SURGEON: Bronson Jarrett MD SUPERVISOR DRY CLEANING: Yasmin Barry OPERATION: Laparoscopic sigmoid colectomy ANESTHESIA: [...] was opened up. We then created our [place] rectal anastomosis. We had to complete anastomotic [...] transferred to the PACU in stable condition. [facility] [id number] Procedure note* Brief Op Note - Yasmin [...] Tissue TISSUE EXAM Bronson Jarrett MD 03/18/25 2478 Routine Description: SIGMOID COLON Staff: Spine Specialist: Joseph Ibarra RN; Nika Schuster RN Relief Spine Specialist: Gini Awan RN; Cecilia Tinajero Relief Scrub: [...] Jarrett MD at 03/21/2025 12:18 PM EDT [facility] CampusRwysva45-45-7173 Nurse Note* Melania Lugo RN - 03/18/2025 4:35 PM EDT Verified with patients that pt. Had jello and lemon ice yesterday for lunch. [facility] [id number] NotePatient: Francisco Gross Procedure Information Date/Time: 03/18/251634 Procedure: LAPAROSCOPIC, COLECTOMY, SIGMOID, POSSIBLE OPEN, POSSIBLE OSTOMY CREATION (Abdomen) Location: [facility] OR Operating Room Surgeons: Bronson Jarrett [...] Equipment Requests [1] No family history on file.[facility] [id number] NoteOCCUPATIONAL THERAPY [facility] Initial Evaluation Name/MRN: Francisco Ramos ([id number]) Evaluation Date: 03/18/2025 Date of : 1950 Admission Date: 03/16/2025 6:13 AM Age: 74 y.o. [facility] Discharge Recommendation: 24 hour supervision [...] in bed, agreeable to OT. Pt with district sales manager present. Pain: Pt denies any current pain. [...] Responsibilities: Independent Receives Help From: Spouse Active Landscaping Manager: No Prior Level of Function Prior Level [...] BSC between bathroom and bed. Assist from LABOR[address] RO[address] for cleanup and pt safety. Device(s) used: Used therapist for support AM-PAC AM-PAC Inpatient Daily Activity Raw Score: 15 ADL Inpatient CMS G-Code Modifier: CK Plan Pt would benefit from skilled acute OT services to address Strengthening, ROM, Gait Training, Balance Training, Self-Care/ADL Training, Functional Mobility Training, Endurance Training, Safety Edu (more content not included)...[facility]07-15-2025 Note* Home Care - Karina Clarke RN - 03/18/2025 2:24 PM EDT Spoke with TCC regarding pt combative behavior with staff and PT recs for [facility], but will wait to discuss possible home care services with pt/family until closer to dc. Industrial Chemical[employer] Supervisor following case for Discharge Needs. [facility] CampusPltrbn76-93-5765 Note* Home Care - Karina Clarke RN - 03/18/2025 2:24 PM EDT Spoke with TCC regarding pt combative behavior with staff and PT recs for [facility], but will wait to discuss possible home care services with pt/family until closer to dc. [employer] Supervisor following case for Discharge Needs. [place] [id number] NoteDepartment of General Surgery Daily Progress Note [...] This note may have been dictated using Lamoda Practice Edition 2.6 and/or Mirantis Voice Recognition Feature. The document was proofread; however, unrecognized voice recognition mica plate layer errors may be present. Attending Supervising Physician's [...] HYDROmorphone, naloxone, on (more content not included)... [facility] [id number] NoteProblem: Safety - Non-violent/Interference with Medical Treatment Restraint Goal: Remains free of injury from restraints (Restraint for Interference with Director Of Oncology) Outcome: Progressing Goal: Free from restraint(s) (Restraint for Interference with Director Of Oncology) Outcome: [facility]ing[facility]07-15-2025 Plan of care note* Care Plan - Arjun Zhao RN - 03/18/2025 6:45 AM EDT Problem: Safety - Non-violent/Interference with Medical Treatment Restraint Goal: Remains free of injury from restraints (Restraint for Interference with Director Of Oncology) Outcome: Progressing Goal: Free from restraint(s) (Restraint for Interference with Director Of Oncology) Outcome: Progressing [facility] [id number] Note* Care Coordination - Renetta Caceres RN [...] Stay (Days): 1 GMLOS: No GMLOS Documented [facility] [id number] Note* Care Coordination - Renetta Caceres RN [...] Stay (Days): 1 GMLOS: No GMLOS Documented [facility] CampusJrwawe28-66-3231 NoteCare Management Progress Note Short Medical why [...] Stay (Days): 1 GMLOS: No GMLOS Documented [facility]07-14-2025 NotePHYSICAL THERAPY [facility] Initial Evaluation Name/MRN: Francisco Ramos ([id number]) Evaluation Date: 03/17/2025 Date of : 1950 Admission Date: 03/16/2025 6:13 AM Age: 74 y.o. [facility] Discharge Recommendation: 24 hour supervision or assist, Home with Home health PT Equipment Needed: No Assessment IMPRESSION: Patient presents status post proctoscopy and rectal tube placement on 03/16 following transfer from [facility] on 03/16 for twisted colon and abdominal [...] nearby if additional assistance is needed Active Landscaping Manager: N/A Prior Level of Function Prior Level [...] TRAVIS, correcting path deviations, (more content not included)...[facility]07-14-2025 NoteDepartment of General Surgery Daily Progress Note [...] This note may have been dictated using CQuotient Medical Practice Edition 2.6 and/or Mirantis Voice Recognition Feature. The document was proofread; however, unrecognized voice recognition mica plate layer errors may be present. Attending Supervising Physician's [...] sodium chloride (PF) 0.9 (more content not included)...[facility] [id number] Nurse Note* Dalia Mas RN - 03/16/2025 [...] information to fill out an incident report [facility] were [facility] out as well. Nikki Aguilar RN terrazzo supervisor was notified of the incident. [facility] [id number] NoteProcedure: Rectal exam, rigid proctoscopy, and rectal [...] help Stacy Burroughs MD General Surgery Resident, PGY-[facility]07[facility]13[facility]25 Emergency department Note* Nathaly Kraus RN - 03/16/2025 8:40 AM EDT Received report from JOSÉ LUIS Mujica [facility] [id number] Emergency department Note* Nathaly Kraus RN - 03/16/2025 8:40 AM EDT Received report from JOSÉ LUIS Mujica * Jameel Barraza DO - 03/16/2025 6:04 AM EDT EMERGENCY DEPARTMENT ENCOUNTER Pt Name: Francisco Ramos Birthdate 1950 Date of evaluation: 03/16/2025 ED Provider: Jameel Barraza DO CHIEF COMPLAINT Chief Complaint Patient presents with Abdominal Pain Transfer from [facility] [...] the emergency department by ED transfer from [facility] ED for abd pain. 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 Pt unable to remember [...] these findings was made to JAMEEL BARRAZA viaHanNonabox Secure Chat on 03/16/2025 8:35 AM EDT. [...] abdominal pain for one day. Transferred from [facility] ED for sigmoid volvulus. Pt currently [...] (HCC) External records reviewed: External ED note [facility] Diagnostics interpreted by me: Discussions with other clinicians: Game Breeding Farm Manager Surgery Resident Chronic conditions impacting care: Social [...] for clarification.) Bhanu Hunter DO Acute Care [facility] Bhanu Hunter DO 03/16/25 1545 documented in this [facility]07-13-2025 History and physical note* Bronson Jarrett MD - 03/16/2025 6:49 AM EDT Images from the original note were not included. Department of General Surgery Surgical Service - CRS Resident Consult Note 03/16/2025 CHIEF COMPLAINT: Chief Complaint Patient presents with Abdominal Pain Transfer from [facility] [...] non-operative,y who presents as a transfer from [facility] for abdominal distention and pain. Surgery was consulted for evaluation of sigmoid volvulus. Patient states he had been at [facility] for his presenting symptoms. There, he had [...] This note may have been dictated using Lamoda Practice Edition 2.6 and/or Mirantis Voice Recognition Feature. The document was proofread; however, unrecognized voice recognition mica plate layer errors may be present. Attending Supervising Physician's [...] No family history on file. [facility] [id number] NoteDepartment of General Surgery Surgical Service - CRS Resident Consult Note 03/16/2025 CHIEF COMPLAINT: Chief Complaint Patient presents with Abdominal Pain Transfer from [facility] [...] non-operative,y who presents as a transfer from [facility] for abdominal distention and pain. Surgery was consulted for evaluation of sigmoid volvulus. Patient states he had been at [facility] for his presenting symptoms. There, he had [...] This note may have been dictated using CQuotient Medical Practice Edition 2.6 and/or Mirantis Voice Recognition Feature. The document was proofread; however, unrecognized voice recognition mica plate layer errors may be present. Attending Supervising Physician's [...] Marital status: [5] No family history on file.[facility]07-13-2025 History and physical note* Bronson Jarrett MD - 03/16/2025 6:49 AM EDT Images from the original note were not included. Department of General Surgery Surgical Service - CRS Resident Consult Note 03/16/2025 CHIEF COMPLAINT: Chief Complaint Patient presents with Abdominal Pain Transfer from [facility] [...] non-operative,y who presents as a transfer from [facility] for abdominal distention and pain. Surgery was consulted for evaluation of sigmoid volvulus. Patient states he had been at [facility] for his presenting symptoms. There, he had [...] Surgery PGY-4 03/16/25 6:50 AM Pager # [phone] This note may have been dictated using CQuotient Medical Practice Edition 2.6 and/or Mirantis Voice Recognition Feature. The document was proofread; however, unrecognized voice recognition mica plate layer errors may be present. Attending Supervising Physician's [...] family history on file. documented in this [facility]07-13-2025 NoteEmergency Department Encounter [facility] PROGRESS[facility] [...] provider for clarification.) Bhanu Hunter DO Acute [facility] Bhanu Hunter DO 03/16/[address] [place], [place] 5986707-13-2025 Physician Emergency department Note* Jameel Barraza DO - 03/16/2025 6:04 AM EDT EMERGENCY DEPARTMENT ENCOUNTER Pt Name: Francisco Ramos Birthdate 1950 Date of evaluation: 03/16/2025 ED Provider: Jameel Barraza DO CHIEF COMPLAINT Chief Complaint Patient presents with Abdominal Pain Transfer from [facility] [...] the emergency department by ED transfer from [facility] ED for abd pain. 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 Pt unable to remember [...] Response: Oriented Best Motor Response: Follows commands [place] Coma Scale Score: 15 PHYSICAL EXAM ED [...] of these findings was made to JAMEEL coreyGiveForwardsyeda Secure Chat on 03/16/2025 8:35 AM EDT. [...] abdominal pain for one day. Transferred from [facility] ED for sigmoid volvulus. Pt currently [...] (HCC) External records reviewed: External ED note [facility] Diagnostics interpreted by me: Discussions with other clinicians: Game Breeding Farm Manager Surgery Resident Chronic conditions impacting care: Social [...] 75 mL (75 mL IntraVENous Given 03/16/25 3659) Prescription drugs considered: PROCEDURES: Unless otherwise noted [...] Marital status: Jameel Barraza DO Resident 03/16/25 1500 Cosigned by Bhanu Hunter DO at 03/16/2025 3:36 PM EDT [employer] Phone: 1(102) 201-544607-13-2025 Physician Emergency department Note* Bhanu Hunter DO [...] [employer] Bhanu Hunter DO 03/16/25 1542 [facility] [id number] Radiology Diagnostic study note [facility] Imaging Services [address] [place] [id number] Abdomen/Pelvis W IV Cont ONLY MR#: [id number] Acct: [id number] Name: FRANCISCO RAMOS Rep #: [id number] : 1950 M 74 From: Charmaine Tejeda MD PCP: Dr. Ethan Avendano MD Status: REG ER Study:Abdomen/Pelvis W IV Cont ONLY Date of E xam: 03/15/25 Exam# [id number] Ordering Dr: Brijesh Mathew DO PROCEDURE: ABDOMEN/PELVIS [...] if not recently performed. 3. Mild splenomegaly. [place] Alert: Sigmoid volvulus The critical information above was relayed directly by me by telephone to Brijesh Frederick on 03/15/2025 at 11:58 pm with readback verification. Reading Location: [facility] CC: Dr. Brijesh Frederick DO; Dr. Ethan Avendano MD ~ [place] Supervisor: Signed [facility]05-05-2025 Discharge summary Author Mojgan Lisa [facility] Note Date/Time January 06, 2025 7:00pm [facility] Physical [facility] [address] [place] [address]. 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 He was on the [...] please feel free to call me at [phone]. Thank you for the referral of thispatient. Sincerely, VANDA Shultz Balance/Gait/Functional tests Balance/Special Test Scores Functional Gait Assessment Score: 25 % Disability: 16.6700 CATSIB Score (Max score 120 seconds): 120 Lower Extremity Functional Score: 44 Improvement % Improvement: 15 <Electronically signed by Mojgan Gonzalez MPT> 01/06/25 1506 CC: Dr. Ethan Avendano MD; KIM Mendenhall ~ Signed [facility] Work Phone: 1(457) 851-628905-05-2025 Discharge summary [facility] [address] [facility] [facility] [place] [address] / REHABILITATION SERVICES DISCHARGE SUMMARY MR#: [id number] Acct: [id number] Name: FRANCISCO RAMOS Rep #: [id number] : 1950 74 From: Mojgan Gonzalez MP T Referring Dr.: KIM Mendenhall Status: REG RCR Insurance: MEDICARE PART A B [facility] Discharge Summary D/C summary: It has been [...] 3-4 days ago he was getting the sprinkler irrigation equipment mechanic ready to mow. He was on the [...] please feel free to call me at [phone]. Thank you for the referral of thispatient. Sincerely, Mojgan Gonzalez, MPT Balance/Gait/Functional tests Balance/Special Test Scores Functional Gait Assessment Score: 25 % Disability: 16.6700 CATSIB Score (Max score 120 seconds): 120 Lower Extremity Functional Score: 44 Improvement % Improvement: 15 01/06/25 1506 CC: Dr. Ethan Avendano MD; KIM Mendenhall ~ Signed [facility]03-27-2025 Evaluation note* Diagnosis Onset Date Resolution Status Admit Date Carotid bruit acute November 28, 2024 10:49am History of coronary artery stent placement March 21, 2019 chronic November 28, 2024 10:49am Hyperlipidemia chronic November 10:49am [facility] Work Phone: 1(310) 791-339903-27-2025 Evaluation note* Diagnosis Onset Date Resolution Status Admit Date Carotid bruit acute November 28, 2024 10:49am History of coronary artery stent placement March 21, 2019 chronic November 28, 2024 10:49am Hyperlipidemia chronic November 10:49am Combative behavior acute March 052024 11:17pm History of Parkinson disease acute 2025 11:17pm [facility] Work Phone: 1(419) 687-329403-27-2025 Evaluation note* Diagnosis Onset Date Resolution Status Admit Date Carotid bruit acute November 28, 2024 10:49am History of coronary artery stent placement March 21, 2019 chronic November 28, 2024 10:49am Hyperlipidemia chronic November 10:49am Combative behavior acute March 052024 10:59pm History of Parkinson disease acute 2025 10:59pm [facility] Work Phone: 1(564) 815-825112-20-2024 [facility] Medical Records Department [address] [place] [address] History Physical Exam 08/23/24 0806 MR#: [id number] Acct: [id number] Name: FRANCISCO RAMOS Rep #: [id number] : 1950 74 From: Jameel Oseguera MD PCP: Dr. Ethan Avendano MD Status:[facility] Location: [place] [address] History and Physical Date of Admission: 08/23/24 [...] History immune glob,gamma(IgG) 10 20 g .Route .[id number] 03/04/19 07/10/24 History rjtl-gtp-ztqs-IgA 0 to 50 mcg/mL IV solution nitroglycerin [...] chest CT Atherosclerosis of coronary artery of [place] heart without angina pectoris Basal cell carcinoma [...] weakness, No frequent fa (more content not included)...[facility]02-02-2024 NoteHNO ID: [id number] Author: FLORENCE EUGENE OT/Ricardo Service: ? Author [...] reported that while Kimmy is the primary shuttle driver for the both of them, it is convenient for him to be able to drive himself to the gym despite them both being there at the same time as Kimmy has other activities she does after while Francisco then goes home. 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 Francisco will volunteer to assist currently but his did indicate that options for alternatives if needed. Functional Limitations: heavy exertion Prior Level of Function: Independent with restrictions Home Environment Patient Lives With: Spouse Assistance Available: PRN Home Type: Multi-Level Transportation: Weesh (2017 [employer]) Patient Goals: to continue to drive if [...] class 2x/week Hobbies / Interests: works on [employer] running again 1x/week in [place] with others which he has been doing for the past several years while has decreased frequency to usually 3x/month or less Home Environment Patient Lives With: Spouse Assistance Available: PRN Home Type: Multi-Level Transportation: Weesh ([employer]) Pain Level: 0 Post Treatment Pain Level: No Change Activities of Daily Living: Modified Independent Instrumental Activities of Daily Living: he assists with some of the household tasks while 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 director home health; he does do his own medications and indicated that he is supposed to be taking his Parkinsons medications 4x/day but sometimes is not as consistent about 2 middle of the day doses although is trying to be more consistent (suggested could use cellphone alarms as reminder) Driving History: 55 years while will also drive the 2020 [employer] Prius they have; still willing to ride as passenger with him which she did today State: [place] License/Permit #: [id number] Expires: 03/25/26 Restrictions: none but does wear [...] Level of Function Relev (more content not included)...[facility] 12-29-2022 NoteHNO ID: [id number] Author: Latisha Robles MD Service: ? Author [...] last fall. torn rotator cuff. 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 torn rotator cuff. 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 Rapid alternating movement normal.Left: Yjzoji-ga-viyx normal. Rapid alternating movement normal. Movement Disorders [...] 1 1 1 Level of service : 26698 (60-74) min). Time spent 67 min on the day of service, which included preparing to see the patient, oshz-un-zgmy patient care, completing clinical documentation, performing amedically appropriate examination, and counseling and educating the patient/family/caregiver. Thank you for allowing me to be part of the clinical care of this patient! I look forward to continued participation in the patient s care with you. Please do not hesitate to call with any questions. Sincerely, Latisha Robles MD documented in [facility]04-27-2023 Instructions* Patient Instructions* Latisha Robles MD [...] or you can send a message through [email or web address]. You can also now schedule and select appointments through [email or web address]. Latisha Robles MD documented in this encounterSt. [facility]03-15-2023 Discharge summary Author Mariaa Pinzon [facility] November 16, 2022 8:38am Note Date/Time November 16, 2022 8:3 8am [facility] [address] [place] [address]. [address] [place] [id number] / REHABILITATION SERVICES DISCHARGE SUMMARY MR#: [id number] Acct: [id number] Name: FRANCISCO RAMOS Rep #: [id number] : 1950 72 From: Mariaa Griffiths Referring Dr.: Dr. Jorden Ortiz DO Status: REG R Insurance: MEDICARE PART A B [facility] It has been my pleasure to treat [...] pain with restisted abduction, Elbow: isometric: 4+/5, Director Of Reservations: equal Goal 1:: Patient will be I [...] please feel free to call me at [phone]. Thank you for the referral of thispatient. Sincerely, Mariaa Pinzon, DPT Balance/Gait/Functional tests - Balance/Special Test Scores Quick DASH Score: 29.5450 <Electronically signed by Mariaa Pinzon DPT> 11/16/22 0838 CC: Dr. Ethan Avendano MD; Dr. 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 His should continue to monitor his overall level of function frequently including with regards to driving skills with information being provided regarding doing the same. Billing: Total Treatment Time Minutes (timed/untimed) 60 minutes Drivers Follow Up per 60 min (98902): 1:1 time 60 min Total time: 60 minutes ROXI De La Vega, CDRS, CDI Certified Landscaping Manager Hauling Contractor documented in this encounterSt. 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 due to increasing challenges due 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) Recreation / Current Exercise: Silver Sneakers classes including yoga/cardio/mellisa; Parkinsons Delay the Disease class 2x/week Hobbies / Interests: works on getting old [employer] Partner[employer] running again 1x/week in [place] with others which he has been doing for the past several years Home Environment Patient Lives With: Spouse Assistance Available: PRN ( available most of the time) Home Type: Multi-Level Transportation: Weesh Activities of Daily Living: Modified Independent Instrumental Activities of Daily Living: 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 while does most of the other [...] History: 54 years 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; 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 drive State: [place] License/Permit #: [id number] Expires: 03/25/26 Restrictions: corrective lenses required for [...] Sufficient although does have tremors in same Director Of Reservations: Sufficient Right LE: Sufficient Left LE: [id number] Sitting Balance: Sufficient Head / Neck: decreased [...] Recall: WFL @ 5/6 digits Visual Scanning/Attention: [place] Making Part B (sec): 92 sec 50th [...] / PERCEPTUAL FUNCTION: Compatible with Driving Robb Landscaping Manager Simulator: Simple Brake Reaction Time: Average Distance: 57 feet (Normal = 60 feet) R foot only pedal operation method Education: Education Learning Preferences: Explanation Barriers: None Learning/educational needs: Safety;Plan of Care Education Provided: Yes, see treatment interventions for education provided Education Provided To: Patient;Family () Education Mode/Type: Explanation/Discussion Response to Education/Teach Back: States/Identifies TREATMENT: Evaluation Self-Mcc Management: 1: refer to information in report [...] this report indicates the ability of the shuttle driver to operate a motor vehicle on [...] Complete Eye Exam: Yes as indicated by technical professional Prognosis: Fair Fair due to: clinical presentation;chronic nature of impairments Goals for Episode of Care created on 08/15/22 through 08/22/22 Patient will complete clinical training and/or testing at [place] level in preparation for returning to driving. Patient will complete functional mobility task with good safety awareness during behind the wheel session/assessment. Planned Interventions, Frequency, and Duration: Current Frequency: 1 visit Duration: 1 visit Total Number of Visits Planned: 1 Patient to be see for Landscaping Manager rehab evaluation PLAN FOR NEXT VISIT: completion of behind the wheel assessment Patient demonstrates good understanding of plan of care and treatment. The above goals and plan of care were discussed and agreed upon by patient/family. Billing: Total Treatment Time Minutes (timed/untimed) 120 minutes Evaluation - Moderate Complexity (66667) Self Care / Home Management (29565): 1:1 time: 60 minutes (4 units: 53-67 mins) Total time: 120 minutes ROXI De La Vega, CDRS, CDI Certified Landscaping Manager Hauling Contractor documented in this encounterSt. [facility]07-18-2019 Evaluation note* Diagnosis Onset Date Resolution Status Carotid bruit acute History of coronary artery stent placement March 21, 2019 chronic Hyperlipidemia [facility] Work Phone: 1(985) 509-175011-07-2013 History of Past illness Narrative* Problem Noted Date Resolved Date Pure hypercholesterolemia 2012 documented as of this encounter (statuses as of 08/16/2022) [facility] History of Past illness Narrative* Problem Noted Date Resolved Date Pure hypercholesterolemia 2012 documented as of this encounter (statuses as of 08/19/2022) [facility] of Past illness Narrative* Problem Noted Date Resolved Date Pure hypercholesterolemia 2012 documented as of this encounter (statuses as of 12/29/2022) [facility] Author Azeem Mendez [facility] Note Date/Time May 15, 2025 2:22am [facility] Medical Records Department [address] [place] [address] Emergency Department Summary 05/15/25 MR#: [id number] Acct: [id number] Name: FRANCISCO RAMOS Rep #:[id number] : 1950 75 From: Azeem Mendez DO PCP: Dr. Ethan Avendano MD Status:REG ER Location: ED HPI History of Present Illness Chief Complaint: General Illness Informant: SNF Narrative Narrative: Patient is a 75-year-old male from the longterm with past medical history ofParkinson's disease and parkinsonian dementia as well as BPH and hyperlipidemia. retirement states he has been combative and secondary to this sentiment for evaluation. The patient does not know why he is at the hospital. He is alert and oriented to person and place but disoriented to time and nursing reports this is his baseline mental status. [facility] Medical History History of Parkinson disease Combative behavior Tortuous colon Wears glasses Arthritis High cholesterol Easy bruising Back pain Non-smoker History of pain when walking History of echocardiogram History of stress test Cardiology follow-up encounter Parkinson disease Atherosclerosis of coronary artery of [place] heart without angina pectoris Hyperlipidemia Common variable immunodeficiency Benign prostate hyperplasia Basal cell carcinoma of left ear Home Medications ?Medication ?Instructions ?Recorded ?Last Taken ?Type multivitamin with folic acid 400 1 tab PO DAILY 08/22/24 History mcg tablet immune glob,gamma(IgG) 10 20 g .Route .f0whzxr 9 08/08/24 History axtm-ulc-nhdt-IgA 0 to 50 mcg/mL IV solution nitroglycerin 0.4 mg sublingual 0.4 mg sublingual Q5-1 5M PRN chest 04/03/19 Unknown Rx tablet pain #25 tabs ibuprofen 600 mg tablet 600 mg PO Q6H PRN pain #20 t abs 12/30/20 08/22/24 Rx aspirin 81 mg tablet,delayed 81 mg PO DAILY 01/05/21 1 10/20/23 History release (Adult Low Dose Aspirin) memantine 5 mg tablet 5 mg PO BID 02/01/23 4 History carbidopa 25 mg-levodopa 100 mg 1 tab PO .qid 11/28/24 Unknown History tablet carbidopa ER 50 mg-levodopa 200 mg 1 tab PO 4X/DAY Unknown History tablet,extended release levothyroxine 25 mcg tablet 25 mcg PO DAILY 03/26/25 U nknown History divalproex 250 mg tablet,delayed 250 mg PO TID 5 Unknown History release quetiapine 25 mg tablet 25 mg PO DAILY 05/07/25 Unkn own History rivastigmine 13.3 mg/24 hour 13.3 mg transdermal DAILY 05/07/25 Unknown History transdermal patch sennosides 8.6 mg-docusate sodium 1 tab-cap PO DAILY 0 05/07/25 Unknown History 50 mg tablet (Senna-Time S) Allergy/AdvReac Type Severity Reaction Status Date / Time No Known Allergies Allergy Verified 05/14/25 21:42 Family History Mother Heart disease valve replacement [...] caffeine: No ROS ROS ED ROS Narrative Please note review of systems may be unreliable secondary to patient's history of parkinsonian dementia Constitutional Constitutional ED: Denies chills or fever(s) Eyes Eyes: Denies change in vision ENT ENT ED: Reports rhinorrhea; Denies sore throat Cardiovascular Cardiovascular: Denies chest pain Respiratory/Chest Respiratory/Chest: Denies cough or dyspnea Gastrointestinal Gastrointestinal: Denies abdominal pain, diarrhea or vomiting Musculoskeletal Musculoskeletal: Denies myalgias Integumentary Denies rash Neurologic Neurologic: Denies headache(s) EXAM Physical Exam Const Vital Signs: 05/14/25 21:36 05/14/25 23:36 05/15/25 01:00 Temperature 98.3 F Temperature Source Oral Pulse Rate 100 80 80 Respiratory Rate 16 18 16 Blood Pressure 167/84 H 155/71 H 140/80 H Blood Pressure Mean 111 99 100 Pulse Ox 98 99 98 Oxygen Delivery Method Room Air 05/15/25 01:33 Temperature 97.6 F L Temperature Source Pulse Rate 80 Respiratory Rate 16 Blood Pressure 140/80 H Blood Pressure Mean 100 Pulse Ox 98 Oxygen Delivery Method Positive well nourished and well developed General Appearance ED: well developed HEENT HEENT Narrative: Normocephalic atraumatic No tongue or lip swelling no oral lesions no airway edema or compromise; no secondary findings in the posterior pharynx to suggest infection Eyes PERRL and EOMs intact bilaterally General Eye ED: Negative for scleral icterus Neck supple Neck Narrative: No nuchal rigidity or meningeal signs Resp normal respiratory effort and clear to auscultation bilaterally Cardio regular rate and regular rhythm Rate: other Other Details: Radial and carotid pulses are equal and symmetric GI normal to inspection, nondistended, normoactive bowel sounds, non-tender, non-distended and no masses Auscultation: normoactive bowel sounds Palpation: soft Extremity normal to inspection Neuro CN's II-XII intact bilaterally and no sensory deficits noted Neuro Narrative: GCS of 14 Patient is awake and alert to person and place but disoriented to time which is baseline mental status No focal neurologic deficits noted Sensorium / Orientation: alert Motor Exam: strength 5/5 throughout Psych Psych Narrative: Patient is calm and cooperative; no combative behavior noted Skin no rashes or lesions noted MDM MDM MDM Narrative Medical decision making narrative: Patient presented to the ER hypertensive otherwise with stable vitals. Nursing reported patient has been combative. This is most likely related to his underlying Parkinson's disease and dementia associated with it. In order to ensure that the reported combative behavior is not due to a urinary tract infection a urine sample was obtained. This showed +1 bacteria but no white cells or leukocyte esterase or nitrites and this is most likely normal anel Charla do not feel this is a true infection and therefore there is no need for antibiotic. His TSH was checked based on his history of hypothyroidism and is within the normal range going against myxedema. His valproic acid level is also in the therapeutic window going against toxic medication level. In the ER the patient has been calm and cooperative there is been no bouts of aggressive or combative behavior. His vitals have remained stable. Therefore do not feel there is need for further intervention or workup in the ER and he is otherwise safe for discharge History & Record Review Discussion w/independent historian: Other (retirement) Additional record(s) reviewed:: Prior outpatient record Lab Data Attestation: I reviewed the patient's lab results. Labs: Laboratory Results - last 24 hr 05/14/25 05/14/25 05/14/25 22:04 22:55 23:08 TSH 2.100 Urine Color Yellow Urine Clarity Clear Urine pH 6.5 Ur Specific Hector 1.020 Urine Protein 30 H Urine Glucose (UA) Normal Urine Ketones 15 H Urine Occult Blood Negative Urine Nitrite Negative Urine Bilirubin Negative Urine Urobilinogen 4 H Ur Leukocyte Esterase Negative Urine RBC 0 SEEN Urine WBC 0-5 SEEN Ur Squamous Epith Cells 0 SEEN Urine Bacteria 1+ Urine Mucus 1+ Valproic Acid 52 Discharge Plan Triage Chief Complaint: General Illness ED Provider: Azeem Mendez Dx/Rx/DC Orders Clinical Impression: Parkinson's disease, Hyperlipidemia, History of coronary artery disease, BPH (benign prostatic hyperplasia), Hypothyroidism Instructions: Parkinson Common Symptoms Prescriptions: No Action immun glob H-[id number]-IgA 0-50 10 gram recon soln 20 g .Route .[id number] Patient Comments: Every 4 weeks Rx Instructions: [...] PO .qid Rx Instructions: 5 tabs daily multivitamin with folic acid 1 TABLET tablet 1 tab PO DAILY ibuprofen 600 mg tablet 600 mg PO Q6H PRN (Reason: pain) Qty: 20 0RF memantine 5 mg tablet 5 mg PO BID levothyroxine 25 mcg tablet 25 mcg PO DAILY carbidopa-levodopa 50-200 mg tablet extended release 1 tab PO 4X/DAY Rx Instructions: divide evenly over waking hours divalproex 250 mg tablet,delayed release (DR/EC) 250 mg PO TID quetiapine 25 mg tablet 25 mg PO DAILY rivastigmine 13.3 mg/24 hour patch 24 hour 13.3 mg transdermal DAILY sennosides-docusate sodium [Senna-Time S] 8.6-50 mg tablet 1 tab-cap PO DAILY Primary Care Provider: Ethan Avendano Referrals: Ethan Avendano MD [Primary Care Provider] - Activity Restrictions/Additional Instructions: The patient has not shown any agitation or aggression in the ER. His vitals arestable and he does not have a urinary tract infection. Please continue all of his home medications as previously directed. Return to the ER should you have any further concerns Print Language: Cook Islander Disposition Disposition: Home, Self Care What to do if you have Problems For any increased pain, shortness of breath, bleeding, nausea or vomiting, chestpain, or any unexpected problems, contact your Primary Care Provider. Call [facility] ([phone]) or report to the closest Emergency Room. Call 911 if necessary. 05/15/25221 <Electronically signed by Azeem Mendez DO> Cosigner Signature (if applicable): CC: Dr. Ethan Avendano MD ~ Signed [facility] Work Phone: Evaluation note* Diagnosis Onset Date Resolution Status Atherosclerosis of coronary artery of [place] heart without angina pectoris chronic Hyperlipidemia [facility] Work Phone: Evaluation noteNo assessment information available [facility] Work Phone: Evaluation note* Diagnosis Onset Date Resolution Status Cardiac murmur, unspecified acute Carotid bruit acute 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 Hyperlipidemia [facility] Work Phone: Evaluation note* Diagnosis Parkinson disease (HCC)- Primary Paralysis agitans Abnormality of gait and mobility Abnormality of gait Abnormal coordination Lack of coordination Irregular eye movements Other irregularities of eye movements [facility] Diagnosis Parkinson disease (HCC)- Primary Paralysis agitans Abnormality of gait and mobility Abnormality of gait Abnormal coordination Lack of coordination Irregular eye movements Other irregularities of eye movements [facility]* Diagnosis Parkinson disease (HCC)- Primary Paralysis agitans [facility] 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 His vitals are stable and he does not have a urinary tract infection. Please continue all of his home medications as previously directed. Return to the ER should [facility] have [facility] Phone: Reason for referral (narrative)No reason for referral information availableWBl[facility] Work Phone: Summary Purpose Family History Relationship Condition Age at Onset Recorded Date/T [place] mother Cardiac disease Unknown father Parkinson's disease Unknown Advance Directives Advance Directive Response Recorded Date/ Time Advance Directives Yes March 21 7:13am Living Will Yes December 30, 2020 6:44pm Power of Carousel Operator Yes December 30 6:44pm Advance Directive Response Recorded Date/ Time Advance Directives Yes March 21 6:13am Living Will Yes December 30, 2020 5:44pm Power of Carousel Operator Yes December 30 5:44pm Advance Directive Response Recorded Date/ Time Living Will Yes December 30, 2020 5:44pm Power of Carousel Operator Yes December 30 5:44pm Living Will Yes August 22 10:23am Power of Carousel Operator Yes August 22, 2024 10:23am Name of Medical Power of Carousel Operator August 22, 2024 10:23am Advance Directives Yes March 21 6:13am Advance Directive Response Recorded Date/ Time Living Will Yes August 22 11:23am Power of Carousel Operator Yes August 22, 2024 11:23am Name of Medical Power of Carousel Operator August 22, 2024 11:23am Advance Directives Yes March 21 7:13am Advance Directive Response Recorded Date/ Time Living Will Yes December 30, 2020 6:44pm Do you have a Healthcare Power of Carousel Operator? Yes December 30, 2020 6:44pm Living Will Yes August 22 11:23am Do you have a Healthcare Power of Carousel Operator? Yes August 22, 2024 11:23am Name of Medical Power of Carousel Operator August 22, 2024 11:23am Advance Directives Yes March 21 7:13am Advance Directive Response Recorded Date/ Time Living Will Yes December 30, 2020 6:44pm Do you have a Healthcare Power of Carousel Operator? Yes December 30, 2020 6:44pm Advance Directives Yes March 21 7:13am Advance Directive Response Recorded Date/ Time Living Will Yes December 30, 2020 6:44pm Do you have a Healthcare Power of Carousel Operator? Yes December 30, 2020 6:44pm Do you have a Healthcare Power of Carousel Operator? Yes March 15, 2025 9:45pm Name of Medical Power of Carousel Operator gardenia ramos March 15, 2025 9:45pm Advance Directives Yes March 21 7:13am Date Activated Date Inactivated Comments 03/20/2025 10:59 AM 03/21/2025 7:54 AM Question Answer Comments ICU transfer: Yes Intubation: Yes Date Activated Date Inactivated Comments 03/16/2025 10:53 AM 03/20/2025 10:59 AM Advance Directive Response Recorded Date/ Time Living Will Yes December 30, 2020 6:44pm Do you have a Healthcare Power of Carousel Operator? Yes December 30, 2020 6:44pm Do you have a Healthcare Power of Carousel Operator? No 2025 8:51pm Do you have a Healthcare Power of Carousel Operator? Yes March 15, 2025 9:45pm Name of Medical Power of Carousel Operator gardenia richard March 15, 2025 9:45pm Advance Directives Yes March 21 7:13am Advance Directive Response Recorded Date/ Time Living Will Yes December 30, 2020 6:44pm Do you have a Healthcare Power of Carousel Operator? Yes December 30, 2020 6:44pm Do you have a Healthcare Power of Carousel Operator? Yes March 26, 2025 1:16am Do you have a Healthcare Power of Carousel Operator? Yes March 15, 2025 9:45pm Name of Medical Power of Carousel Operator gardenia ramos March 15, 2025 9:45pm Advance Directives Yes March 21 7:13am Advance Directive Response Recorded Date/ Time Do you have a Healthcare Power of Carousel Operator? Yes March 26, 2025 1:16am Do you have a Healthcare Power of Carousel Operator? Yes March 15, 2025 9:45pm Name of Medical Power of Carousel Operator gardenia ramos March 15, 2025 9:45pm Advance Directives Yes March 21 7:13am Advance Directive Response Recorded Date/ Time Do you have a Healthcare Power of Carousel Operator? Yes March 26, 2025 1:16am Do you have a Healthcare Power of Carousel Operator? Yes May 14, 2025 9:40pm Name of Medical Power of Carousel Operator --gardenia May 14, 2025 9:40pm Do you have a Healthcare Power of Carousel Operator? Yes March 15, 2025 9:45pm Name of Medical Power of Carousel Operator gardenia ramos March 15, 2025 9:45pm Advance Directives Yes March 21 7:13am Chief Complaint and Reason for Visit Chief Complaint 6-8 MO F/U (MOVED FR OM 10/19) IVIG IVIG IVIG IVIG Reason for Visit Atherosclerosis of c oronary artery of [place] heart without angina pectoris Hyperlipidemia Chief Complaint [...] 2024 11 :12am INCOMPLETE COLONOSCOPY/TORTUOUS COLON [facility] 2024 8:06am IVIG October 10, 2024 9 [...] 2024 11 :12am INCOMPLETE COLONOSCOPY/TORTUOUS COLON [facility] 2024 8:06am IVIG October 10, 2024 9 [...] 12: 46pm IVIG May 07, 2025 1:01pm Chief Complaint Admit Date IVIG February 05, [...] 12: 46pm IVIG May 07, 2025 1:01pm aggressive behavior May 14, 2025 9:35pm Chief Complaint Admit Date IVIG February 05, [...] 12: 46pm IVIG May 07, 2025 1:01pm aggressive behavior May 14, 2025 9:35pm IVIG June 04, 2025 12 :54pm Additional Source Comments (unrecognized sect ion and content) No Status Records FoundNo Status Records FoundNo Status Records FoundNo Status Records FoundNo Status Records FoundNo Status Records FoundNo Status Records Found INFORMATION SOURCE (unrecogn ized section and content) DATE CREATED AUTHOR 02/27/2018 [facility] DATE CREATED AUTHOR AUTHOR'S ORGANIZ ATION 08/09/2019 [facility] ([place]) DATE CREATED AUTHOR AUTHOR'S ORGANIZ ATION 12/30/2022 [facility] DATE CREATED AUTHOR AUTHOR'S ORGANIZ ATION 05/25/2024 [facility] DATE CREATED AUTHOR AUTHOR'S ORGANIZ ATION 04/29/2025 [facility] DATE CREATED AUTHOR AUTHOR'S ORGANIZ ATION 05/02/2025 [facility] DATE CREATED AUTHOR AUTHOR'S ORGANIZ ATION 06/05/2025 [facility] Goals (unrecognized section and content) Goals [...] or prosecute any alcohol or drug abuse patient.[facility] the event this information is protected by the Federal Confidentiality of Alcohol and Drug Abuse Patient Records regulations: The Federal rules restrict any use of the information to criminally investigate or prosecute any alcohol or drug abuse patient.[facility] the event this information is protected by the Federal Confidentiality of Alcohol and Drug Abuse Patient Records regulations: The Federal rules restrict any use of the information to criminally investigate or prosecute any alcohol or drug abuse patient.[facility] Reason for Visit (unrecogniz ed section and content) Reason Comments Occupational Therapy Specialty Diagnoses / Procedures Referred By Laura t Referred To Contact [facility] Diagnoses Parkinson's disease Drivers evaluation Procedures NEW RS OT COMM REINTEGRATION Errol Larson MD [address] [place] [address] [facility] [address] [address] Referral ID Status Reason Start Date Expiration Date V isits Requested Visits Authorized [id number] Authorized 09/04/2021 09/03/2022 99 99 Reason Comments OT EVAL Reason Comments Consult Parkinsons Reason Comments Abdominal Pain Transfer from [facility] for Colonoscopy due to a twisted colon. Pt reports that his symptoms began a few hours ago. Denies any N/V/D. Pt is A&ox 3. Denies any other complaints at this time. Specialty Diagnoses / Procedures Referred By Laura t Referred To Contact Diagnoses Sigmoid volvulus (CMS/HCC) (HCC) Sigmoid Volvulous Procedures .. Bronson Jarrett MD [address] [place] [address] Phone: tel: fax: [facility] [address] [place] [phone] Phone: tel: Referral ID Status Reason Start Date Expiration Date Visits Re quested Visits Authorized Reason Onset Date Comments Cancelled Appointment 04/07/2025 Care Teams (unrecognized sec tion and content) Security Lead Relationship Specialty Start Date End Date Lacy Goldberg NO FORWARDING ADDRESS PCP - General 06/27/02 Security Lead Relationship Specialty Start Date End Date Lacy [...] MD Primary Care Provider Active Joan Madhubish EXPEDITER, EXPEDITER-C Attending Provider, Referring Pr ovider Active Team Status: Inactive Member Role Status Dates Dr. Ethan Avendano MD Primary Care Provider Active Joan Prebish EXPEDITER, EXPEDITER-C Attending Provider, Referring Pr ovider Active Team Status: Inactive Member Role Status Dates Dr. Ethan Avendano MD Primary Care Provider Active Dr. Jorden Ortiz DO Attending Provider, Referring Provider Active Security Lead Relationship Specialty Start Date End Date Lacy [...] March 15, 2025 End: March 16, 2025 Security Lead Relationship Specialty Start Date End Date Jameel Oseguera [address] [place] [address] PCP - General 03/16/25 Team Status: Inactive [...] Provider Active St art: March 26, 2025 Security Lead Relationship Specialty Start Date End Date Jameel Oseguera [address] [place] [id number] PCP - General 03/16/25 Team Status: Inactive [...] Provider Active Start: March 26, 2025 Dr. Jessiac Chris MD Other Provider Active St art: March 26, 2025 Team Status: Active Member Role/Relationship Status Dates Dr. Ethan Avednano MD Primary Care Provider Active Start: March [...] May 07, 2025 End: May 07, 2025 Team Status: Inactive Member Role/Relationship Status Dates Dr. Ethan Avendano MD Primary Care Provider Active Start: May 14, 2025 End: May 15, 2025 Dr. Azeem Mendez DO Emergency Provider Active Start: May 14, 2025 End: May 15, 2025 Team Status: Active Member Role/Relationship Status Dates Dr. Ethan Avendano MD Primary care physician Active Team Status: Inactive Member Role/Relationship Status Dates Dr. Ethan Avendano MD Primary care physician Active Start: February 05, 2025 End: February 05, 2025 Dr. Ethan Avendano MD Attending physician Active S tart: February 05, 2025 End: February 05, 2025 Dr. Ethan Avendano MD Referring Provider Active St art: February 05, 2025 End: February 05, 2025 Team Status: Inactive Member Role/Relationship Status Dates Dr. Ethan Avendano MD Primary care physician Active Start: March 05, 2025 End: March 05, 2025 Dr. Ethan Avendano MD Attending physician Active S tart: March 05, 2025 End: March 05, 2025 Dr. Ethan Avendano MD Referring Provider Active St art: March 05, 2025 End: March 05, 2025 Team Status: Inactive Member Role/Relationship Status Dates Dr. Ehtan Avendano MD Primary care physician Active Start: March 15, 2025 End: March 16, 2025 Dr. Brijesh Frederick DO Attending physician Active Start: March 15 End: March 16, 2025 Dr. Brijesh Frederick DO Emergency Department Physician Active Start: March 15, 2025 End: March 16, 2025 Team Status: Inactive Member Role/Relationship Status Dates Dr. Ethan Avendano MD Primary care physician Active Start: 2025 End: March 27, 2025 Dr. Manny Galeana MD Emergency Department Physician Ac tive Start: 2025 End: March 27, 2025 Dr. Lacy Johnston MD Admitting physician Active Start: 2025 End: March 27, 2025 Dr. Lacy Johnston MD Nurse Practitioner Active Start: 2025 End: March 27, 2025 Dr. Jessica Chris MD Attending physician Active Start: 2025 End: March 27, 2025 Team Status: Active Member Role/Relationship Status Dates Dr. Ethan Avendano MD Primary care physician Active Start: 2025 Dr. Manny Galeana MD Emergency Department Physician Ac tive Start: 2025 Dr. Lacy Johnston MD Admitting physician Active Start: 2025 Dr. Lacy Johnston MD Attending physician Active Start: 2025 Dr. Lacy Johnston MD Nurse Practitioner Active Start: 2025 Team Status: Active Member Role/Relationship Status Dates Dr. Ethan Avendano MD Primary care physician Active Start: March 26, 2025 Dr. Manny Galeana MD Emergency Department Physician Ac tive Start: March 26, 2025 Dr. Lacy Johnston MD Admitting physician Active Start: March 26, 2025 Dr. Lacy Johnston MD Nurse Practitioner Active Start: March 26, 2025 Dr. Jessica Chris MD Attending physician Active Start: March 26, 2025 Dr. Jessica Chris MD Nurse Practitioner Active Start: March 26, 2025 Team Status: Active Member Role/Relationship Status Dates Dr. Ethan Avendano MD Primary care physician Active Start: March 27, 2025 Dr. Manny Galeana MD Emergency Department Physician Ac tive Start: March 27, 2025 Dr. Lacy Johnston MD Admitting physician Active Start: March 27, 2025 Dr. Lacy Johnston MD Nurse Practitioner Active Start: March 27, 2025 Dr. Jessica Chris MD Attending physician Active Start: March 27, 2025 Dr. Jessica Chris MD Nurse Practitioner Active Start: March 27, 2025 Team Status: Inactive Member Role/Relationship Status Dates Dr. Ethan Avendano MD Primary care physician Active Start: April 09, 2025 End: April 09, 2025 Dr. Ethan Avendano MD Attending physician Active S tart: April 09, 2025 End: April 09, 2025 Dr. Ethan Avendano MD Referring Provider Active St art: April 09, 2025 End: April 09, 2025 Team Status: Inactive Member Role/Relationship Status Dates Dr. Ethan Avendano MD Primary care physician Active Start: April 17, 2025 End: April 17, 2025 Dr. Ethan Avendano MD Attending physician Active S tart: April 17, 2025 End: April 17, 2025 Dr. Ethan Avendano MD Referring Provider Active St art: April 17, 2025 End: April 17, 2025 Team Status: Inactive Member Role/Relationship Status Dates Dr. Ethan Avendano MD Primary care physician Active Start: May 07, 2025 End: May 07, 2025 Dr. Ethna Avendano MD Attending physician Active S tart: May 07, 2025 End: May 07, 2025 Dr. Ethan Avendano MD Referring Provider Active St art: May 07, 2025 End: May 07, 2025 Team Status: Inactive Member Role/Relationship Status Dates Dr. Ethan Avendano MD Primary care physician Active Start: May 14, 2025 End: May 15, 2025 Dr. Azeem Mendez DO Attending physician Active Start: May 14, 2025 End: May 15, 2025 Dr. Azeem Mendez DO Emergency Departme nt Physician Active Start: May 14, 2025 End: May 15, 2025 Team Status: Inactive Member Role/Relationship Status Dates Dr. Ethan Avendano MD Primary care physician Active Start: June 04, 2025 End: June 04, 2025 Dr. Ethan Avendano MD Attending physician Active S tart: June 04, 2025 End: June 04, 2025 Dr. Ethan Avendano MD Referring Provider Active St art: June 04, 2025 End: June 04, 2025 Scheduled Active and Recently Administ ered [...] mEq per 1 oz fluid., Indications: Hypokalemia 628 (Given - Provider: Triny Garvey RN) PRN [...] PRN, opioid reversal, respiratory depression, Starting on 03/16/25 at 1059, +++ For RR <10, pinpoint pupils, over sedation for opioid reversal - MUST notify electronic transaction implementer provider immediately after first dose, may give [...] BE BASED ON THE PRIMARY CLINICAL RECORDS. [facility]. provides no warranty or guarantee of the accuracy or completeness of information in this document.
[2025-06-08 19:25] LABS: AST(SGOT) 122 U/L (<=37); Alanine Aminotransfer ALT/SGPT 11 U/L (<=46); Albumin, Serum 4.1 g/dL (3.4-4.8); Alkaline Phosphatase 54 U/L (40-129); Anion Gap 14 (5-15); BUN 27 mg/dL (4-19); BUN/Creat Ratio 28.4 RATIO (10-20); Calcium,Total 9.4 mg/dL (7.6-11.0); Carbon Dioxide 23.6 mmol/L (21.0-32.0); Chloride 101 mmol/L (98-108); Estimated Creatinine Clearance 54.27 ml/min (50-250); Globulin 2.4 g/dL (2.2-4.2); Glucose 105 mg/dL (70-99); Lipase 11 U/L (13-75); Potassium 4.1 mmol/L (3.3-5.1)
[2025-06-08 19:55] LABS: Color, Urine Yellow (Yellow); Glucose, Dipstick Normal (Normal); Leukocyte Esterase-Dipstick 100 /ul (Negative); Nitrite-Dipstick Negative (Negative); Occult Blood-Urine 10 /ul (Negative); Protein-Dipstick 30 mg/dl (Negative); Specific Gravity, Urine 1.025 (1.002-1.030); Urine Bilirubin Dipstick Negative (Negative)
[2025-06-08 19:57] LABS: Ketone-Dipstick 150 mg/dl (Negative)
[2025-06-08 20:00] VITALS: BP 122/69; PULSE 88; RESP 16; O2SAT 100
[2025-06-08 21:05] LABS: Mucous, Urine 3+ /hpf (<or=2+); Red Blood Cells-Urine 0-5 SEEN /hpf (0-5); Squamous Epithelial Cells - UA 0-5 SEEN /hpf (0-5)
[2025-06-08 21:20] VITALS: BP 106/62; PULSE 72; RESP 15; TEMP 36.6; O2SAT 100
--- NOTE | 2025-06-08 21:49 | ED.RN ---
[facility] called by this RN, spoke with nurse Boudreaux. No further questions at this time.
--- NOTE | 2025-06-08 21:50 | ED.RN ---
Patient's updated on pt being d/c by this RN, no further questions at this time.
[2025-06-08 22:00] VITALS: BP 106/62; PULSE 72; RESP 15; O2SAT 100
--- NOTE | 2025-06-08 22:12 | ED.RN ---
Patient's called and wanted to make staff aware that patient has lost 20 lbs in the past month. Dr. Sparrow notified
== END 2025-06-08 22:24 | disposition home or self-care (01) ==
PROVIDERS: Emergency Provider Emergency Medicine; PCP Family Medicine; Visit Provider Emergency Medicine
DX: R46.89 Other symptoms and signs involving appearance and behavior (principal); G20.A1 Parkinson's disease without dyskinesia, without mention of fluctuations; G30.9 Alzheimer's disease, unspecified; F02.80 Dementia in other diseases classified elsewhere, unspecified severity, without behavioral disturbance, psychotic disturbance, mood disturbance, and anxiety; I25.10 Atherosclerotic heart disease of native coronary artery without angina pectoris; I12.9 Hypertensive chronic kidney disease with stage 1 through stage 4 chronic kidney disease, or unspecified chronic kidney disease; N18.1 Chronic kidney disease, stage 1; E78.00 Pure hypercholesterolemia, unspecified
CPT/HCPCS: 70450; 71045; 80053; 81001; 83690; 85025; 93005; 99285; P9612; A4216

== ENCOUNTER → 2025-06-18 | Outpatient (CLI) | payer MEDICARE, OTHER, SELFPAY ==
[2019-03-11 14:03] VITALS: BMI 24.3
[2025-06-18 18:14] LABS: Hematocrit 39.7 % (40-54); Hemoglobin 13.3 g/dL (13.0-16.5); Immature Granulocytes Count 0.020 X10^3/uL (0.0-0.0); Mean Corp Hgb Conc 33.5 g/dL (32-36); Mean Corpuscular Volume 92.3 fL (80-94); Mean Platelet Vol. 11.5 fl (6.2-12.0); NRBC Flagged by Analyzer 0 % (0-5); POSITIVE DIFFERENTIAL YES; Platelet Count 126 K/mm3 (150-450); RBC Distribution Width CV 14.0 % (11.6-14.6); RBC Distribution Width SD 46.8 fl (35.1-43.9); Red Blood Count 4.30 M/mm3 (4.6-6.2); White Blood Count 3.7 K/mm3 (4.4-11.0)
[2025-06-18 18:34] LABS: Ammonia 16.2 umol/L (16-60)
[2025-06-18 18:39] LABS: AST(SGOT) 50 U/L (<=37); Alanine Aminotransfer ALT/SGPT 36 U/L (<=46); Albumin, Serum 4.3 g/dL (3.4-4.8); Alkaline Phosphatase 64 U/L (40-129); Anion Gap 10 (5-15); BUN 20 mg/dL (4-19); BUN/Creat Ratio 28.4 RATIO (10-20); Calcium,Total 9.4 mg/dL (7.6-11.0); Carbon Dioxide 27.7 mmol/L (21.0-32.0); Chloride 103 mmol/L (98-108); Free T3 1.7 pg/mL (2.18-3.98); Globulin 2.3 g/dL (2.2-4.2); Glucose 96 mg/dL (70-99); Potassium 4.5 mmol/L (3.3-5.1)
[2025-06-18 18:53] LABS: Valproic Acid (Depakene) Level 44 ug/mL (50-100)
== END | disposition home or self-care (01) ==
LOC: MTLAB 15:25
PROVIDERS: PCP Family Medicine; Referring Provider Family Medicine; Visit Provider Family Medicine
DX: G90.3 Multi-system degeneration of the autonomic nervous system (principal); F32.9 Major depressive disorder, single episode, unspecified; F63.81 Intermittent explosive disorder
CPT/HCPCS: 36415; 80053; 80164; 82140; 84443; 84481; 85025